=== PATIENT | male | born 1955 | race Caucasian/White ===

== ENCOUNTER 2017-09-04 06:05 | Outpatient (RCR) | payer MEDICAID, SELFPAY ==
[2017-09-04 08:55] LABS: International Normalized Ratio 2.2; Prothrombin Time (Protime)PT. 23.5 SECONDS (11.7-14.9)
== END 2017-09-04 15:00 | disposition home or self-care (01) ==
LOC: LAB 06:05
PROVIDERS: Family Provider Family Medicine; PCP Family Medicine; Visit Provider Internal Medicine Cardiovascular Disease
DX: I48.0 Paroxysmal atrial fibrillation (principal); D68.32 Hemorrhagic disorder due to extrinsic circulating anticoagulants
CPT/HCPCS: 36415; 85610

== ENCOUNTER → 2017-10-01 15:55 | Outpatient (CLI) | payer MEDICAID, SELFPAY ==
--- NOTE | 2017-10-01 16:01 | RAD_ITS ---
STUDY: X-RAY - LUMBAR SPINE REASON FOR EXAM: Male, 62 years old. Pain after lifting TECHNIQUE: 5 view(s) of the lumbar spine were obtained. COMPARISON: CT September 01, 2008 FINDINGS: Mild levoconvex scoliosis. Diffuse spondylosis. Age-indeterminate compression deformities of T9, T12, L2, and L4. L4 Schmorl's node. Diffuse facet disease. Vascular calcifications. Left hip arthroplasty. RAD/L/S Spine Min 4 Views IMPRESSION: Age-indeterminate compression deformities of T9, T12, L2, and L4. Consider MRI correlation to further determine acuity if possible. Electronically Signed: Haja Sandoval MD at 7:53 EST Tel , Service support ,
[2017-10-01 18:05] LABS: International Normalized Ratio 3.1; Prothrombin Time (Protime)PT. 32.5 SECONDS (11.7-14.9)
== END ==
PROVIDERS: Family Provider Family Medicine; PCP Family Medicine; Visit Provider Internal Medicine Cardiovascular Disease
DX: M54.5 Low back pain (principal)
CPT/HCPCS: 36415; 72110; 85610

== ENCOUNTER → 2017-10-11 08:57 | Outpatient (CLI) | payer MEDICAID, SELFPAY ==
--- NOTE | 2017-10-11 09:42 | MRI_ITS ---
STUDY: MRI LUMBAR SPINE WITH AND WITHOUT CONTRAST REASON FOR EXAM: Male, 62 years old. Low back pain with radicular symptoms to the right hip. TECHNIQUE: Standardized fat and water weighted pulse sequences were obtained in the sagittal and axial planes. 7.5 ml of Gadavist contrast material was administered for the contrast portion of the examination. COMPARISON: Radiographs of the lumbar spine dated October 01, 2017. FINDINGS: T12-L1: There is mild wedge-shaped deformity of the T12 vertebral body. There is a large Schmorl's node at the superior endplate of T12 which contributes to the compression. Maximum compression is probably 50% of expected this vertebral body. This appears to be old. There is a mild disc bulge. Neural foramina are patent. There is no significant central acquired canal stenosis. Normal lumbar lordosis. There is no substantial scoliosis. Normal conus medullaris that terminates at the L1-2 level. L1-2: There is moderate compression of L2 with abnormal signal at the superior endplate. There is associated abnormal signal at the superior endplates suggesting this is an acute fracture. There is increased height of the disc. Neural foramina are patent. There is a mild disc bulge. There is mild degenerative arthropathy of facet joints. L2-3: There is mild annular disk bulge and osteophyte complex. There is mild degenerative arthropathy of the facet joints. Bilateral neuroforamina are narrowed without MR evidence for nerve impingement. There is no significant central canal stenosis. L3-4: There is narrowing of the disc. There is a Schmorl's node of superior endplate of L4. There is abnormal signal the endplates suggesting acute Modic changes. Neural foramina are bilaterally narrowed with potential impingement of the right L3 nerve root at the neural foramen. L4-5: There is mild compression fracture of the superimposed vertebral body with a larger Schmorl's node of the central aspect of the superior endplate contributing to the compression. There is moderate annular disc bulge and osteophyte complex. There is mild degenerative arthropathy of facet joints. There is mild central acquired canal stenosis. Neural foramina are narrowed without definite evidence for nerve impingement. L5-S1: There is narrowing of the disc. There is narrowing of disc bulge with broad central disc protrusion. There is moderate degenerative arthropathy of facet joints. There is mild central acquired canal stenosis. Neural foramina are bilaterally narrowed with potential impingement of the bilateral nerve roots at the neural foramina. Normal visualized sacral ala. Normal visualized paraspinous soft tissue structures. There may be small renal cysts. There is abnormal enhancement of superior endplate of L2 as well as the endplates of L3 and L4, and the superior endplate of L4 and endplates at L5-S1. This could be the result of acute Modic changes. Sequela of osteomyelitis is thought less likely. MRI/Spine Lumbar W/WO Contrast IMPRESSION: 1. Multiple compression fractures of the lumbar vertebral bodies, apparently acute at L2 and L4. 2. Abnormal enhancement suggests possible sequela of acute Modic changes. Sequela of discitis is thought less likely. Electronically Signed: Angi Guan MD at 13:32 EDT , Service support ,
--- NOTE | 2017-10-11 09:43 | MRI_ITS ---
STUDY: MRI THORACIC SPINE WITH AND WITHOUT CONTRAST REASON FOR EXAM: Male, 62 years old. Low back pain. Patient has compression fractures. TECHNIQUE: 7.5 ml of Gadavist was administered intravenously for the contrast portion of the examination. Sagittal and axial T1 and T2 MR images of the thoracic spine are submitted for interpretation. COMPARISON: None. FINDINGS: There is an increased kyphosis of the thoracic spine. There is no substantial scoliosis. T1-2, T2-3, T3-4, T4-5, T5-6, T6-7, T7-8, T8-9, T9-10, T10-11, T11-12: There is moderate compression of the T9 vertebral body. Maximum compression is about 70% of expected height of this vertebral body. There is also central compression of the T10 vertebral body with large central Schmorl's nodes involving the superior and inferior endplates with maximum compression of this vertebral body about 80% with a H shaped appearance of the vertebral body. There is also mild compression of the T12 vertebral body with maximum compression of 70%. There is also mild compression fracture T5. There is some abnormal signal within the T9 and T10 vertebral body suggesting there may be some acuity to these compression fractures. The rest of the compression fractures appear old. Remaining thoracic vertebral bodies have normal height and alignment. Neural foramina appear to be patent. There is no significant central acquired canal stenosis. Normal visualized thoracic cord. The conus medullaris is not imaged in its entirety on this study. There appears to be a left-sided renal cyst. This is partially imaged on the current study. There is bilateral basilar dependent atelectasis. There is some enhancement of the T9 and T10 vertebral bodies. This could be result of acute Modic changes. Malignancy is not excluded. There is no evidence for meningeal enhancement. MRI/Spine Thoracic W/WO Contrast IMPRESSION: 1. Apparent acute compression of the T10 vertebral body that is centrally located and appears to be associated with Schmorl's nodes. The configuration of this vertebral body suggests the possibility of bone infarcts. 2. There may be some acuity to compression of T9 but there is only a small area of abnormal signal in this vertebral body to suggest an acute process. Electronically Signed: Angi Guan MD at 13:25 EDT , Service support ,
[2017-10-11 12:30] LABS: EGFR FINGERSTICK > 60.0000 mL/min (>60)
== END ==
PROVIDERS: Family Provider Family Medicine; PCP Family Medicine; Visit Provider Family Medicine
DX: S32.000A Wedge compression fracture of unspecified lumbar vertebra, initial encounter for closed fracture (principal); X58.XXXA Exposure to other specified factors, initial encounter; I48.91 Unspecified atrial fibrillation; Z79.01 Long term (current) use of anticoagulants
CPT/HCPCS: 36415; 72157; 72158; 85610; A9585

== ENCOUNTER 2017-10-18 06:12 | Outpatient (RCR) | payer MEDICAID, SELFPAY ==
[2017-10-11 11:20] LABS: International Normalized Ratio 3.4; Prothrombin Time (Protime)PT. 34.6 SECONDS (11.7-14.9)
[2017-10-18 07:25] LABS: International Normalized Ratio 3.4; Prothrombin Time (Protime)PT. 34.5 SECONDS (11.7-14.9)
== END 2017-10-18 07:00 | disposition home or self-care (01) ==
LOC: LAB 06:12
PROVIDERS: Physician Assistant Medical; Family Provider Family Medicine; PCP Family Medicine; Visit Provider Internal Medicine Cardiovascular Disease
DX: I48.91 Unspecified atrial fibrillation (principal); I48.92 Unspecified atrial flutter; Z79.01 Long term (current) use of anticoagulants
CPT/HCPCS: 36415; 85610

== ENCOUNTER 2017-11-14 06:05 | Outpatient (RCR) | payer MEDICAID, SELFPAY ==
[2017-11-01 08:41] LABS: Prothrombin Time (Protime)PT. 35.9 SECONDS (11.7-14.9)
[2017-11-01 08:45] LABS: International Normalized Ratio 3.6
[2017-11-14 08:51] LABS: International Normalized Ratio 3.5
== END 2017-11-14 07:00 | disposition home or self-care (01) ==
LOC: LAB 06:05
PROVIDERS: Physician Assistant Medical; Family Provider Family Medicine; PCP Family Medicine; Visit Provider Internal Medicine Cardiovascular Disease
DX: I48.91 Unspecified atrial fibrillation (principal); I48.92 Unspecified atrial flutter; Z79.01 Long term (current) use of anticoagulants
CPT/HCPCS: 36415; 85610

== ENCOUNTER 2017-11-29 06:18 | Outpatient (RCR) | payer MEDICAID, SELFPAY ==
[2017-11-29 07:09] LABS: International Normalized Ratio 1.8; Prothrombin Time (Protime)PT. 21.2 SECONDS (11.7-14.9)
== END 2017-11-29 07:00 | disposition home or self-care (01) ==
LOC: LAB 06:18
PROVIDERS: Family Provider Family Medicine; PCP Family Medicine; Visit Provider Internal Medicine Cardiovascular Disease
DX: I48.91 Unspecified atrial fibrillation (principal); I48.92 Unspecified atrial flutter; Z79.01 Long term (current) use of anticoagulants
CPT/HCPCS: 36415; 85610

== ENCOUNTER 2017-11-29 10:00 | Outpatient (RCR) | payer MEDICAID, SELFPAY ==
--- NOTE | 2017-10-29 09:58 | HP.PTEVAL_ITS ---
Patient's Visit Information ENRIQUE MCNALLY III is a 62 year old M referred to Physical Therapy by Eva SERRA with a diagnosis of Back pain/leg pain. Date of Evaluation: 10/29/17 Physical Therapist: Gagandeep Adams DPT, [place] - Visit Plan Frequency: 2-3x /Week Duration: 4-6 Weeks Plan: Patient to take pain meds as directed and instructed in postural awareness today. He wants to start therapy in two weeks for : teach quad, hip flexor, HS stretches...hip and core strength and postureal ex/bnody mechanics weekly via HEP or 3x/week in PT depending on condition. Recommended patient f/ u with family doctor regarding possible medical reasons for weakness in bones with multiple compression fractures as he is unaware of any. - Subjective Subjective: 4 weeks ago was lifting a TV from a chair to the floor and felt a pop in his back. Unbelievable pain for two weeks. Hard to move or breathe. Went to Dr. Daugherty 2 weeks later and had diagnostics. Sent to [facility] and he wanted spinal injections which patient does not want to have. Currently doing better. Stopped pain meds(has hydrocodone) for a day and it got worse then again. Has R LBP and R leg into hip, feels likes pins and needles most of time unless on the pain meds. Horton tart them again tonight. Sleep is 5 hours out of normal 8 b/c hard to get to sleep. Basic aDLs hurt initially but can do now. Is retired disability. L ZARINA. Avoids lifting and careful with bending at home. Has to be careful about every little thing. Can't carry more than 3-5 # right now. - Pain R LBP Pain Intensity (Out of 10): 8 Pain Intensity Range: 0, 9 Comment: good on pain meds. - Objective Walks hunched over and transitions cautiously. Extra time needed for table transfers as he is painful appearing to shear force. Walk is I. Straightens up with VC but it hurts. LB AROM: ext max limtied and barely to neutral, flexion mod limited, SB max limited B, all are mildly painful today and cautious. HS max tight at -50 90/90 test, ITB mod tight, hip flexors max tight to neutral baarely with hip ext and quads min tight. reflexes patella and achilles 2/3. sensation LE WNL to gross light touch. strength LE knees and ankles 4+/5. hips abd and ext 3, very atrophied in B glut tissue. BHip flexion 3+ due to pain. Patient is friendly and aware. Wishes to hold on therapyuntil he gets back on pain meds and can move easier/heals a little more. - Goals Goal 1:: Patient have full postural positioning without pain without VC. Goal Time Frame: 4-6 Weeks Goal 2:: patient able to trasnfer in bed and roll without discomfort. Goal Time Frame: 4-6 Weeks Goal 3:: pt I approp ex to minimize futre problems. Goal Time Frame: 4-6 Weeks Goal 4:: Pat report 90% improved and activity with pain no greater than transient 08/08 - Rehabilitation Potential Physical Therapy Diagnosis: Back pain, compression fractures. Rehabilitation Potential: Fair - Anticipated Interventions Patient/Client Instruction: Educate patient on: Condition, Plan of Care, Risk Factors For the Purpose of:: To decrease pain, To increase ROM, To reduce risk of recurrence Therapeutic Exercise to Include: Strength training, Postural training, Flexibilty training, Active ROM For the Purpose of:: To decrease pain, To increase ROM, To improve nutrient delivery to tissue, To improve ability of physical actions for home/community/ work/leisure, To improve gait and locomotor functions, To reduce risk of recurrence Thermo therapy (hot pack): Yes For the Purpose of:: To decrease pain Thank you for the opportunity to evaluate your patient. For Medicare and Medicare HMO plans, please review the plan of care and approve it. It will need to be FAXED BACK to us at [phone] for Medicare purposes. Please let me know if there are questions or concerns regarding this plan of care. Physician Signature: Date:
--- NOTE | 2017-11-29 10:30 | HP.PTDCSUM_ITS ---
HP - PT D/C Summary It has been my pleasure to treat ENRIQUE MCNALLY III under orders from Eva Storey , for the diagnosis of Back pain/leg pain for a total of 4 visit(s). Discharge Date: 11/29/17 Please see the following information for a summary of their discharge status. 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 A little stiff after two hours. Doing everything well. Gets sore in back if he overdoes it. Time is helping. Intemittent R hip tingly if he pushes it too hard but improving. Exercises are going OK with strength every other day, doing one time a day stretches. - Pain R LBP Pain Intensity (Out of 10): 0 - Overall Improvement % Improvement: 70 - Objective Objective/Function: Still hunches over when sitting. strength in LE improving and functional. ROM LB WNL and without pain today. strength 4+/5 in LE. Walk and steps normal. Remains slightly hunched but doing well otherwise. OVERALL EXCELLENT IMPROVEMENT AND LIFE ABOUT BACK TO NORMAL. 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 Goal Progress: Progressing Goal 2:: patient able to trasnfer in bed and roll without discomfort. Goal Progress: Goal Met Goal 3:: pt I approp ex to minimize futre problems. Goal Progress: Goal Met Goal 4:: Pat report 90% improved and activity with pain no greater than transient 1/10 Goal Progress: Progressing - Plan Plan: D/C - D/C Information Discharge Comments: Doing well and will continue HEP on his own. If there are questions or concerns regarding this patient's physical therapy, please feel free to call me at [phone]. Thank you for the referral of this patient. Sincerely, Gagandeep Adams, DPT, [place]
== END 2017-11-29 19:00 | disposition home or self-care (01) ==
LOC: PT 10:00
PROVIDERS: Family Provider Family Medicine; PCP Family Medicine; Visit Provider Anesthesiology Pain Medicine
DX: M54.9 Dorsalgia, unspecified (principal); M79.606 Pain in leg, unspecified; I48.91 Unspecified atrial fibrillation; I48.92 Unspecified atrial flutter; Z79.01 Long term (current) use of anticoagulants
CPT/HCPCS: 36415; 85610; 97110; 97162; 97530

== ENCOUNTER 2017-12-27 05:59 | Outpatient (RCR) | payer MEDICAID, SELFPAY ==
[2017-12-13 08:06] LABS: Prothrombin Time (Protime)PT. 22.9 SECONDS (11.7-14.9)
[2017-12-27 07:15] LABS: International Normalized Ratio 1.6; Prothrombin Time (Protime)PT. 19.2 SECONDS (11.7-14.9)
== END 2017-12-27 06:00 | disposition home or self-care (01) ==
LOC: LAB 05:59
PROVIDERS: Family Provider Family Medicine; PCP Family Medicine; Visit Provider Internal Medicine Cardiovascular Disease
DX: I48.91 Unspecified atrial fibrillation (principal); I48.92 Unspecified atrial flutter; Z79.01 Long term (current) use of anticoagulants
CPT/HCPCS: 36415; 85610

== ENCOUNTER → 2018-01-08 09:35 | Outpatient (CLI) | payer MEDICAID, SELFPAY ==
[2018-01-08 12:10] LABS: Absolute Lymphocyte Count 1.66 X10^3/ul (0.83-4.51); Basophil# 0.05 X10^3/uL; Basophil% 0.7 % (0-1); Eosinophil# 0.12 X10^3/uL; Eosinophils% 1.6 % (0-5); Hematocrit 42.9 % (40-54); Hemoglobin 14.9 g/dl (13.0-16.5); Lymphocyte # 1.66 X10^3/ul (4.0); Lymphocyte % 22.2 % (19-41); Mean Corp Hgb Conc 34.7 g/gl (32-36); Mean Corpuscular Hgb 31.1 pg (27.0-32.0); Mean Corpuscular Volume 89.6 fL (80-94); Mean Platelet Vol. 10.5 fl (6.2-12.0); Monocyte# 0.59 X10^3/uL; Monocyte% 7.9 % (0-10); Neutrophil # 5.04 X10^3/uL (2.7-7.7); Neutrophil % 67.5 % (47-70); Platelet Count 270 K/mm3 (150-450); RBC Distribution Width CV 15.2 % (11.6-14.6); RBC Distribution Width SD 49.9 fl (35.1-43.9); Red Blood Count 4.79 M/mm3 (4.6-6.2); White Blood Count 7.5 K/mm3 (4.4-11.0)
[2018-01-08 12:16] LABS: POSITIVE COUNT NO; POSITIVE DIFFERENTIAL NO; POSITIVE MORPHOLOGY NO
[2018-01-08 12:40] LABS: AST(SGOT) 19 U/L (15-37); Alanine Aminotransfer ALT/SGPT 25 U/L (16-61); Albumin, Serum 4.1 g/dL (3.2-5.0); Alkaline Phosphatase 75 U/L (45-117); Anion Gap 12 (5-15); BUN 8 mg/dL (7-18); BUN/Creat Ratio 7.9 RATIO (10-20); Calcium,Total 9.1 mg/dL (8.5-10.1); Chloride 88 mmol/L (98-107); Creatinine, Serum 1.01 mg/dL (0.70-1.30); EST Glomerular Filtration Rate 79 mL/min (>60); Est Glom Filt Rate - Afr Amer 96 mL/min (>60); Glucose 61 mg/dL (74-106); Magnesium 1.9 mg/dL (1.6-2.6); Potassium 4.4 mmol/L (3.5-5.1); Protein, Total 8.1 g/dL (6.4-8.2); Sodium Level 127 mmol/L (136-145); Thyroid Stim Hormone (TSH) 1.84 uIU/mL (0.358-3.74); Uric Acid 6.6 mg/dL (3.5-7.2)
== END ==
PROVIDERS: Family Provider Family Medicine; PCP Family Medicine; Visit Provider Family Medicine
DX: I48.91 Unspecified atrial fibrillation (principal); I10 Essential (primary) hypertension; M10.9 Gout, unspecified; E78.5 Hyperlipidemia, unspecified
CPT/HCPCS: 36415; 80053; 83735; 84443; 84550; 85025

== ENCOUNTER 2018-01-17 06:06 | Outpatient (RCR) | payer MEDICAID, SELFPAY ==
--- NOTE | 2018-01-03 06:03 | DT_ITS ---
This patient was seen during an EMR downtime December 31, 2017 - January 07, 2018. This patient may have a combination of paper and electronic documentation or all paper documentation. All documentation is viewable within the e-chart portion of [facility] for each patient visit.
[2018-01-08 04:16] LABS: International Normalized Ratio 1.9; Prothrombin Time (Protime)PT. 21.4 SECONDS (11.7-14.9)
[2018-01-17 07:47] LABS: International Normalized Ratio 1.8; Prothrombin Time (Protime)PT. 20.6 SECONDS (11.7-14.9)
== END 2018-01-17 07:00 | disposition home or self-care (01) ==
LOC: LAB 06:06
PROVIDERS: Family Provider Family Medicine; PCP Family Medicine; Visit Provider Internal Medicine Cardiovascular Disease
DX: I48.91 Unspecified atrial fibrillation (principal); I48.92 Unspecified atrial flutter; Z79.01 Long term (current) use of anticoagulants
CPT/HCPCS: 36415; 85610

== ENCOUNTER 2018-02-14 10:35 | Outpatient (RCR) | payer MEDICAID, SELFPAY ==
[2018-01-29 07:57] LABS: International Normalized Ratio 2.1; Prothrombin Time (Protime)PT. 23.5 SECONDS (11.7-14.9)
[2018-02-14 11:13] LABS: Prothrombin Time (Protime)PT. 22.4 SECONDS (11.7-14.9)
[2018-02-27 08:21] LABS: International Normalized Ratio 1.9; Prothrombin Time (Protime)PT. 22.2 SECONDS (11.7-14.9)
== END 2018-02-14 12:00 | disposition home or self-care (01) ==
LOC: LAB 10:35
PROVIDERS: Family Provider Family Medicine; PCP Family Medicine; Visit Provider Internal Medicine Cardiovascular Disease
DX: I48.91 Unspecified atrial fibrillation (principal); I48.92 Unspecified atrial flutter; Z79.01 Long term (current) use of anticoagulants
CPT/HCPCS: 36415; 85610

== ENCOUNTER 2018-03-12 14:03 | Outpatient (RCR) | payer MEDICAID, SELFPAY ==
[2018-03-12 15:10] LABS: International Normalized Ratio 2.1
== END 2018-03-12 15:00 | disposition home or self-care (01) ==
LOC: LAB 14:03
PROVIDERS: Family Provider Family Medicine; PCP Family Medicine; Visit Provider Internal Medicine Cardiovascular Disease
DX: I48.91 Unspecified atrial fibrillation (principal); I48.92 Unspecified atrial flutter; Z79.01 Long term (current) use of anticoagulants
CPT/HCPCS: 36415; 85610

== ENCOUNTER 2018-03-12 14:16 | Outpatient (RCR) | payer MEDICAID, SELFPAY | END 2018-03-29 23:59 | LOC: NS 14:16 | PROVIDERS: Family Provider Family Medicine; PCP Family Medicine; Visit Provider Internal Medicine Cardiovascular Disease | DX: E78.5 Hyperlipidemia, unspecified (principal); I48.92 Unspecified atrial flutter; Z79.01 Long term (current) use of anticoagulants; Z71.3 Dietary counseling and surveillance | CPT/HCPCS: 36415; 85610; 97802 ==

== ENCOUNTER 2018-03-28 11:48 | Outpatient (RCR) | payer MEDICAID, SELFPAY ==
[2018-03-28 12:24] LABS: International Normalized Ratio 1.9; Prothrombin Time (Protime)PT. 21.7 SECONDS (11.7-14.9)
== END 2018-03-28 13:00 | disposition home or self-care (01) ==
LOC: LAB 11:48
PROVIDERS: Family Provider Family Medicine; PCP Family Medicine; Visit Provider Internal Medicine Cardiovascular Disease
DX: I48.91 Unspecified atrial fibrillation (principal); I48.92 Unspecified atrial flutter; Z79.01 Long term (current) use of anticoagulants
CPT/HCPCS: 36415; 85610

== ENCOUNTER 2018-04-02 08:18 | Outpatient (RCR) | payer MEDICAID, SELFPAY | END 2018-04-28 23:59 | LOC: NS 08:18 | PROVIDERS: Family Provider Family Medicine; PCP Family Medicine; Visit Provider Internal Medicine Cardiovascular Disease | DX: E78.5 Hyperlipidemia, unspecified (principal); Z68.20 Body mass index [BMI] 20.0-20.9, adult; Z79.01 Long term (current) use of anticoagulants; Z71.3 Dietary counseling and surveillance | CPT/HCPCS: 97803 ==

== ENCOUNTER 2018-04-18 06:04 | Outpatient (RCR) | payer MEDICAID, SELFPAY ==
[2018-04-18 07:09] LABS: International Normalized Ratio 1.8
== END 2018-04-18 07:00 | disposition home or self-care (01) ==
LOC: LAB 06:04
PROVIDERS: Family Provider Family Medicine; PCP Family Medicine; Visit Provider Internal Medicine Cardiovascular Disease
DX: I48.91 Unspecified atrial fibrillation (principal); I48.92 Unspecified atrial flutter; Z79.01 Long term (current) use of anticoagulants
CPT/HCPCS: 36415; 85610

== ENCOUNTER → 2018-04-30 09:32 | Outpatient (CLI) | payer MEDICAID, SELFPAY ==
[2018-04-30 12:12] LABS: Prothrombin Time (Protime)PT. 22.6 SECONDS (11.7-14.9)
[2018-04-30 12:19] LABS: AST(SGOT) 14 U/L (15-37); Alanine Aminotransfer ALT/SGPT 22 U/L (16-61); Albumin, Serum 3.7 g/dL (3.2-5.0); Alkaline Phosphatase 77 U/L (45-117); Bilirubin, Direct 0.18 mg/dL (0.00-0.30); Globulin 3.8 g/dL (2.2-4.2); Protein, Total 7.5 g/dL (6.4-8.2)
== END ==
PROVIDERS: Family Provider Family Medicine; PCP Family Medicine; Visit Provider Internal Medicine Cardiovascular Disease
DX: E78.5 Hyperlipidemia, unspecified (principal); I48.91 Unspecified atrial fibrillation; I48.92 Unspecified atrial flutter; Z79.01 Long term (current) use of anticoagulants
CPT/HCPCS: 80076; 85610

== ENCOUNTER 2018-05-14 12:58 | Outpatient (RCR) | payer MEDICAID, SELFPAY | END 2018-05-29 23:59 | LOC: NS 12:58 | PROVIDERS: Family Provider Family Medicine; PCP Family Medicine; Visit Provider Internal Medicine Cardiovascular Disease | DX: E78.5 Hyperlipidemia, unspecified (principal); I48.92 Unspecified atrial flutter; Z79.01 Long term (current) use of anticoagulants; R63.4 Abnormal weight loss; Z68.20 Body mass index [BMI] 20.0-20.9, adult; Z71.3 Dietary counseling and surveillance | CPT/HCPCS: 97803 ==

== ENCOUNTER 2018-05-21 15:42 | Outpatient (RCR) | payer MEDICAID, SELFPAY ==
[2018-05-21 16:48] LABS: International Normalized Ratio 2.2; Prothrombin Time (Protime)PT. 24.5 SECONDS (11.7-14.9)
== END 2018-05-21 17:00 | disposition home or self-care (01) ==
LOC: LAB 15:42
PROVIDERS: Family Provider Family Medicine; PCP Family Medicine; Referring Provider Internal Medicine Cardiovascular Disease; Visit Provider Internal Medicine Cardiovascular Disease
DX: I48.91 Unspecified atrial fibrillation (principal); I48.92 Unspecified atrial flutter; Z79.01 Long term (current) use of anticoagulants
CPT/HCPCS: 36415; 85610

== ENCOUNTER 2018-06-25 05:58 | Outpatient (RCR) | payer MEDICAID, SELFPAY ==
[2018-06-25 07:15] LABS: International Normalized Ratio 2.8; Prothrombin Time (Protime)PT. 29.7 SECONDS (11.7-14.9)
--- OUTSIDE RECORDS SUMMARY | 2018-08-06 19:23 | XMS RPT_ITS ---
:1955 Author Organization OHIP Support Name Relationship Address Phone D Unavailable Unavailable Unavailable D Unavailable Unavailable Unavailable D Unavailable Unavailable Unavailable D Unavailable Unavailable Unavailable D Unavailable Unavailable Unavailable D Unavailable Unavailable Unavailable D Unavailable Unavailable Unavailable D Unavailable Unavailable Unavailable D Unavailable Unavailable Unavailable D Unavailable Unavailable Unavailable D Unavailable Unavailable Unavailable D Unavailable Unavailable Unavailable D Unavailable Unavailable Unavailable D Unavailable Unavailable Unavailable D Unavailable Unavailable Unavailable D Unavailable Unavailable Unavailable D Unavailable Unavailable Unavailable DALI, STEVE Unavailable [address] + [place] [address] D Unavailable Unavailable Unavailable DALI, STEVE Unavailable [address] + [place] [address] D Unavailable Unavailable Unavailable DALI, STEVE Unavailable [address] + [place] [address] D Unavailable Unavailable Unavailable DALI, STEVE Unavailable [address] + [place] [address] D Unavailable Unavailable Unavailable DALI, STEVE Unavailable [address] + [place] [address] D Unavailable Unavailable Unavailable DALI, STEVE Unavailable [address] + [place] [address] D Unavailable Unavailable Unavailable DALI, STEVE Unavailable [address] + [place] [address] D Unavailable Unavailable Unavailable DALI, STEVE Unavailable [address] + [place] [address] D Unavailable Unavailable Unavailable DALI, STEVE Unavailable [address] + [place] [address] D Unavailable Unavailable Unavailable DALI, STEVE Unavailable [address] + [place] [address] D Unavailable Unavailable Unavailable DALI, STEVE Unavailable [address] + [place] [address] D Unavailable Unavailable Unavailable STEVE MCNALLY Unavailable [address] + [place] [address] D Unavailable Unavailable Unavailable ADOLPH MCNALLYA Unavailable [address] + [place] [address] Care Team Providers Name Role Phone Parveen Medina Attending Unavailable KIMBERLY ASENCIO Referring Unavailable Willow, Sarah Primary Care Unavailable KIMBERLY ASENCIO Consulting Unavailable Moodispaw, Parveen Attending Unavailable Willow, Sarah Primary Care Unavailable Moodisgracy, Parveen Referring Unavailable KIMBERLY ASENCIO Consulting Unavailable JonoisParveen dubose Attending Unavailable Moodispaleonidas, Parveen Referring Unavailable Willow, Sarah Primary Care Unavailable KIMBERLY ASENCIO Consulting Unavailable JonoisParveen dubose Attending Unavailable Moodispaleonidas, Parveen Referring Unavailable [facility], Sarah Primary Care Unavailable Willow, Sarah Attending Unavailable Willow, Sarah Referring Unavailable Willow, Sarah Primary Care Unavailable Willow, Sarah Attending Unavailable Willow, Sarah Primary Care Unavailable Basali Ayman Attending Unavailable Willow, Sarah Primary Care Unavailable Basali Ayman Referring Unavailable [place], Parveen Attending Unavailable Moodispaleonidas, Parveen Referring Unavailable Willow, Sarah Primary Care Unavailable KIMBERLY ASENCIO Consulting Unavailable JonoisParveen dubose Attending Unavailable [place], Parveen Referring Unavailable Willow, Sarah Primary Care Unavailable KIMBERLY ASENCIO Consulting Unavailable JonoisParveen dubose Attending Unavailable Moodispaleonidas Parveen Referring Unavailable [facility], Sarah Primary Care Unavailable JonoisParveen dubose Attending Unavailable Moodispaleonidas, Parveen Referring Unavailable Willow, Sarah Primary Care Unavailable KIMBERLY ASENCIO Consulting Unavailable Willow, Sarah Attending Unavailable Willow, Sarah Primary Care Unavailable MoodisParveen dubose Attending Unavailable Moodispaleonidas, Parveen Referring Unavailable [facility], Sarah Primary Care Unavailable KIMBERLY ASENCIO Consulting Unavailable Dionna Shankar Attending Unavailable Moodispaleonidas, Parveen Attending Unavailable Willow, Sarah Referring Unavailable Willow, Sarah Primary Care Unavailable JonoisParveen dubose Attending Unavailable Moodispaleonidas, Parveen Referring Unavailable Willow, Sarah Primary Care Unavailable KIMBERLY ASENCIO Consulting Unavailable Parveen Medina Attending Unavailable Willow, Sarah Primary Care Unavailable Willow, Sarah Consulting Unavailable [place], Parveen Attending Unavailable [place], Parveen Referring Unavailable Willow, Sarah Primary Care Unavailable [place], Parveen Attending Unavailable Willow, Sarah Primary Care Unavailable Willow, Sarah Consulting Unavailable [place], Parveen Attending Unavailable [place], Parveen Referring Unavailable Willow, Sarah Primary Care Unavailable KIMBERLY ASENCIO Consulting Unavailable [place], Parveen Attending Unavailable [place], Parveen Referring Unavailable Willow, Sarah Primary Care Unavailable [place], Parveen Attending Unavailable Willow, Sarah Primary Care Unavailable Willow, Sarah Consulting Unavailable [place], Parveen Attending Unavailable Willow, Sarah Primary Care Unavailable [place], Parveen Attending Unavailable [place], Parveen Referring Unavailable Willow, Sarah Primary Care Unavailable KIMBERLY ASENCIO Consulting Unavailable [place], Parveen Attending Unavailable Willow, Sarah Primary Care Unavailable Willow, Sarah Consulting Unavailable Moodisp[place], Parveen Attending Unavailable [place], Parveen Referring Unavailable Willow, Sarah Primary Care Unavailable KIMBERLY ASENCIO Consulting Unavailable Moodispaleonidas, Parveen Attending Unavailable [place], Parveen Referring Unavailable Willow, Sarah Primary Care Unavailable KIMBERLY ASENCIO Consulting Unavailable NEVIN RUSSO ([facility]) Attending Unavailable SCHWEIKERT, DWAYNE A Referring Unavailable WILLOW, SARAH ZAK Referring Unavailable SCHWEIKERT, DWAYNE Leung Attending Unavailable MOODISPAW, PARVEEN F Referring Unavailable VLAD SMITH Attending Unavailable SCHWEIKERT, DWAYNE A Referring Unavailable WILLOW, SARAH Primary Care Unavailable SCHWEIKERT, DWAYNE A Attending Unavailable WILLOW, SARAH Primary Care Unavailable MOODISPAW, PARVEEN Referring Unavailable WILLOW, SARAH Referring Unavailable WILLOW, SARAH Primary Care Unavailable PROBLEMS PROBLEMS DATE TYPE CONDITION / CODE ATTENDING STATUS SOURCE 07/15/2018 Unknown E78.5 - Moodispaw, Active [place] Hyperlipidemia, [facility] unspecified / Hospital E78.5(ICD-10) Repository 05/30/2018 Unknown I48.91 - Unspecified [place], Active [place] atrial fibrillation / [facility] I48.91(ICD-10) Hospital Repository 05/08/2018 Active Other specified SCHWEIKERT, Active [place] personal risk [facility] Other factors, not [place] elsewhere classified Repository / Z91.89(ICD-10) 05/03/2016 Active 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, 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 [facility] Other therapy / [place] Z79.899(ICD-10) Repository 05/03/2016 Active 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) 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, Active [place] use of anticoagulants [facility] Clinic Other / Z79.01(ICD-10) [place] Repository 05/03/2016 Active Palpitations / SCHWEIKERT, Active [place] R00.2(ICD-10) [facility] Other [place] Repository 05/08/2018 Admitting Unknown / SCHWEIKERT, Active [place] [facility] diagnosis UNK(Unknown) [facility] Repository 02/18/2018 Unknown Z79.01 - [facility] [place], Active [place] (current) use of [facility] anticoagulants / Hospital Z79.01(ICD-10) Repository 11/30/2017 Unknown M54.9 - Dors[place], Basali, Ayman Active [place] unspecified / [facility] M54.9(ICD-10) Hospital Repository 05/16/2017 Active Persistent atrial KARAN, NEVIN Active [place] fibrillation / (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) Clinic Other I48.1(ICD-10) [place] Repository 05/03/2016 Active Supraventricular KARAN, NEVIN Active [place] tachycardia / (CASE WORKER) Clinic Other I47.1(ICD-10) [place] Repository 05/03/2016 Active Unspecified atrial KARAN, NEVIN Active [place] flutter / (CASE WORKER) Clinic Other I48.92(ICD-10) [place] Repository 10/18/2017 Unknown S22.000A - Sarah Ramirez Active [place] compression fracture [facility] thoracic vertebra, Repository initial encounter for closed fracture / S22.000A(ICD-10) 10/11/2017 Unknown [place]2.000A - Sarah Ramirez Active [place] compression fracture [facility] lumbar Hospital vertebra, initial Repository encounter for closed fracture / S32.000A(ICD-10) 09/28/2017 Unknown I48.0 - Paroxysmal [place], Active [place] atrial fibrillation / [facility] I48.0(ICD-10) Hospital Repository PROCEDURES PROCEDURES No Procedure Records FoundRESULTS RESULTS PROTHROMBIN TIME W/INR Collected: 07/15/2018 Status: F Source: [place] 6:12 AM [facility] HOSPITAL REPOSITORY TYPE CODE TESTS RESULT OUT OF RANGE REFERENCE UNITS LAB L300.4150 11.7-14.9 SECONDS High PROTIME 23.6 LAB L300.4200 Normal INR 2.1 Performed By: #### [id number] #### [facility] [address] [place], [address] PROTHROMBIN TIME W/INR Collected: 06/25/2018 Status: F Source: [place] 6:01 AM [facility] REPOSITORY TYPE CODE TESTS RESULT OUT OF RANGE REFERENCE UNITS LAB L300.4150 11.7-14.9 SECONDS High PROTIME 29.7 LAB L300.4200 Normal INR 2.8 Performed By: #### [id number] #### [facility] [address] [place], [address] PROTHROMBIN TIME W/INR Collected: 05/21/2018 Status: F Source: [place] 3:48 PM [facility] REPOSITORY TYPE CODE TESTS RESULT OUT OF RANGE REFERENCE UNITS LAB L300.4150 11.7-14.9 SECONDS High PROTIME 24.5 LAB L300.4200 Normal INR 2.2 Performed By: #### [id number] #### [facility] [address] [place], [address] PROGRESS Observed: 05/08/2018 Status: COMPLETED Source: [place] 11:59 AM [facility] OTHER CAMPUS REPOSITORY O ID: [id number] Author: Dwayne Cavanaugh Service: (none) Author Type: Physician Type: Progress Notes Filed: 05/08/2018 1:09 PM Note Text: PRIMARY CARE PHYSICIAN: Sarah Daugherty MD [address] [place] [address] Patient Care Team: Sarah Daugherty as PCP - General (Family Practice) Parveen Medina as Specialty Double Back Operator (Cardiology) Dwayne Cavanaugh as Specialty Double Back Operator (Cardiology) CHIEF COMPLAINT: Follow up for arrhythmia HISTORY OF PRESENT ILLNESS: Mr. Mcnally is a 62 year old male who presents today for a cardiovascular medicine follow-up visit. History copied from previous notes, edited as needed: Mr. Mcnally has a long history of AF, possibly since the . The AF was previously very symptomatic, and was refractory to medical therapy. He underwent AF catheter ablation at [facility] in 2007. The procedure was complicated by an acute deep venous thrombosis (DVT) of the right iliac vein. According to the medical records, there had been difficulty during the ablation procedure to access the right femoral vein. Thrombolysis was not effective to restore patency, although at least one collateral channel developed that relieved the lower extremity swelling. 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 Mr. Mcnally developed recurrent AF and for several years was minimally symptomatic with appropriate ventricular rate control. Treatment with antiarrhythmic drugs, including flecainide, was ineffective. Due to his relatively young age, a more aggressive approach to maintaining sinus rhythm had been considered. However, the patient had steadfastly maintained he did not want to take other drugs or in particular undergo another catheter ablation procedure. So for several years he has been managed with a ventricular rate control treatment approach. More recently (2014), the AF had become more bothersome. He states he clearly felt better in sinus rhythm than in the AF. He described symptomatic episodes, particularly since the 2nd week of June 2014, during which he felt palpitation associated with feeling shaky and dizzy. Episodes were occurring occasionally, and lasted up to a few hours. A beta-john medication was added to his regimen. An ambulatory Holter revealed symptomatic atrial fibrillation with rapid ventricular rates. He was admitted to [facility] in 08/2014 for loading of the antiarrhythmic drug, dofetilide. He then underwent electrical DC cardioversion 09/10/2014. He was then discharged home on the dofetilide 500 mcg twice daily. He was then evaluated by Dr. Medina in late September 2014 and was found to be having recurrent episodes of symptomatic arrhythmia. He underwent additional electrical DC cardioversions, but the atrial arrhythmias recurred. Additional history provided 05/03/2016: Mr. Mcnally underwent redo catheter ablation procedure in September 2015 here at [facility]. The procedure involved redo catheter ablation for the atrial fibrillation, and also targeted and ablated multiple atypical left atrial arrhythmias including atrial tachycardias and/or atrial flutters. Mr. Mcnally states that since the ablation procedure he has had improvement in his symptoms. He did have some recurrence of his symptoms early after the procedure and was treated with the dofetilide (Tikosyn). With these measures, he only occasionally feels mild palpitations that do not last for very long period of time. He has not experienced what he describes as the hard palpitations since the ablation procedure. He has been very busy recently and under some stress due to his mother having open heart surgery here at [facility] recently. He denies chest pain, shortness of breath, orthopnea, cough, edema, PND, lightheadedness or syncope. Additional history 05/16/2017: Mr. Mcnally has been feeling well. Better than I have in 20 years. He is tolerating his medications well. He denies chest pain, shortness of breath, orthopnea, edema, palpitations, PND, lightheadedness or syncope. Additional history this visit 05/08/2018: Mr. Mcnally states he has been doing well from the heart rhythm standpoint. He has not been aware of any arrhythmia. He denies chest pain, shortness of breath, orthopnea, palpitations, PND, lightheadedness or syncope. He had some trouble earlier this year in about September when he broke his back. He underwent some rehabilitation for this issue. PAST MEDICAL HISTORY Diagnosis Date - At risk for stroke [id number] = 2 (HTN, DM); on oral anticoagulation therapy - Atrial flutter (HCC) - Degenerative joint disease involving multiple joints - Essential hypertension - Fracture of neck of femur (HCC) - Gastroesophageal reflux disease - Gout diagnosed 2001 - Hypogonadism in male - [facility] current use of antiarrhythmic drug dofetilide (Tikosyn); indication: symptomatic AF or atrial flutter - On anticoagulant therapy warfarin; indication: stroke prevention AF; [id number] = 2 - On [facility] drug therapy high risk medication: antiarrhythmic drug dofetilide (Tikosyn); indication: symptomatic AF/flutter - Palpitations - Paroxysmal supraventricular tachycardia (HCC) - Persistent atrial fibrillation (HCC) recurrent; symptomatic; s/p AF ablation 04/2008 [facility]; s/p redo AF ablation 09/2015 - Tachycardia - Tobacco dependence syndrome encouraged to quit - Type 2 diabetes mellitus (HCC) diagnosed 2009; diet-controlled PAST SURGICAL HISTORY Procedure Laterality Date - AFIB ABLATION/PULM VEIN ISOLATION 10/12/2015 redo AF catheter ablation/PVAI; also ablation of two macroreentrant atypical left atrial flutters; [facility] Dr. Cavanaugh - CARDIAC CATH 09/2006 - CATHETER, ABLATION 05/25/2008 [facility], Dr. Carlos Huggins - ECHOCARDIOGRAM 04/06/2016 normal LV size and systolic fxn; LVEF 55-60%; no significant valvular abnormalities - IR VENOUS SENIOR QA TESTER 05/28/2008 unsuccessful angioplasty attempts at right common femoral vein and external iliac vein occlusions; [facility] - REPAIR OF FEMUR Left 1980 ORIF left femur SOCIAL HISTORY Social History Substance Use Topics - Smoking status: Current Every Day Smoker Packs/day: 1.00 Types: Cigarettes Start date: 07/30/1974 - Smokeless tobacco: Never Used - Alcohol use Yes Comment: occasionally FAMILY HISTORY Problem Relation Age of Onset - Diabetes Father - Coronary Artery Disease Mother - Diabetes Mother - Heart Mother [place] AND stents - Asthma Sister - Prostate Cancer Paternal Uncle ALLERGIES: ALLERGIES Allergen Reactions - Insect Extracts Swelling - Med-Hist Swelling [place] - Succinylcholine Swelling MEDICATIONS: diltiazem CD (CARDIZEM CD, CARTIA XT) 120 mg 24 hr capsule Take 1 capsule by mouth twice daily. dofetilide (TIKOSYN) 500 mcg capsule Take 1 capsule by mouth twice daily. KLOR-CON M10 10 mEq tablet Take 10 mEq by mouth once daily. EPIPEN 2-HYACINTH 0.3 mg/0.3 mL auto-injector Inject 0.3 mg subcutaneously as needed (allergic reactions). warfarin (COUMADIN) 4 mg tablet As directed allopurinol (ZYLOPRIM) 100 mg tablet Take 100 mg by mouth twice daily. furosemide (LASIX) 40 mg tablet Take 40 mg by mouth once daily. potassium chloride (K-TAB) 10 mEq tablet Take 10 mEq by mouth once daily. warfarin (COUMADIN) 5 mg tablet As directed Fish Oil-Bon Wier-3 Fatty Acids 300-1,000 mg cap Take 1 tablet by mouth once daily. lansoprazole (PREVACID) 30 mg capsule Take 30 mg by mouth once daily. PHYSICAL EXAMINATION: BP 108/70 Pulse 67 Resp 18 Ht 6' 1 (1.85m) Wt 154 lb 12.8 oz (70.2kg) SpO2 97% BMI 20.43 kg/(m2). General: Very thin body habitus; no acute distress, speaking in complete sentences. Skin: No clubbing, no cyanosis. Eyes: Extra ocular movements intact, Non-icteric sclerae Neck: no jugular venous distention, Lungs: Clear to auscultation bilaterally, no wheezing or rhonchi. Heart: Regular rhythm, S1, S2 normal, no murmur Abdomen: Soft, nontender, bowel sounds normal Extremities: No peripheral edema . Grade 2/4 distal pulses bilaterally. Neuro: Oriented to person, place and time, alert, cooperative, gait coordinated. CARDIOVASCULAR MEDICINE TESTING: Electrocardiogram: Sinus rhythm 64 bpm; first-degree AV block (PA 234 ms); QRS 92 ms; corrected QT interval 468 ms, appropriate on dofetilide (Tikosyn); poor R wave progression precordial leads similar to previous EKG 04/2017 I have personally reviewed the Electrocardiogram. I spent 30 minutes in the visit, with more than 50% of the total [id number] time of the visit in counseling / coordination of care. ASSESSMENT/PLAN: 1. Persistent atrial fibrillation (HCC) - ICD9: 427.31, ICD10: I48.1 (primary diagnosis) recurrent; symptomatic; s/p AF ablation 04/2008 [facility]; s/p redo AF ablation 09/2015; well controlled on dofetilide 2. Atrial flutter, unspecified type (HCC) - ICD9: 427.32, ICD10: I48.92 3. Paroxysmal supraventricular tachycardia (HCC) - ICD9: 427.0, ICD10: I47.1 4. 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 At risk for stroke - ICD9: V15.89, ICD10: Z91.89 [id number] = 2 (HTN, DM); on oral anticoagulation therapy 7. On anticoagulant therapy - ICD9: V58.61, ICD10: Z79.01 warfarin; indication: stroke prevention AF; [id number] = 2 ; risk:benefit of oral anticoagulation therapy seems favorable IMPRESSION: Mr. Mcnally seems to be doing very well from a heart rhythm standpoint. He has not been aware of having much recurrence of symptomatic arrhythmias. He is doing well with the antiarrhythmic drug dofetilide and EKG today shows appropriate corrected QT intervals. He has been treated with oral anti-coagulation for stroke prevention, and the risk to benefit of this treatment still seems to be favorable. The warfarin dosing is being managed by his other physicians. PLAN AND RECOMMENDATIONS: Continue with current plan of care from EP standpoint. Return in about 6 months (around 11/06/2018) for appt with Nevin Russo APN with EKG. Dwayne Cavanaugh MD 05/08/2018 CNOV Observed: 05/08/2018 Status: COMPLETED Source: [place] 11:30 AM CLINIC OTHER CAMPUS REPOSITORY Office Visit (AGCARDPHRA) ENRIQUE MCNALLY ([id number]) 1955 M Date Time Provider Department 05/08/18 11:30 AM DWAYNE CAVANAUGH During your visit today, we recorded the following information about you: Pulse Respiration Blood pressure Weight 67/minute 18/minute 108/70 70.2 kg Height 1.854 m Gilma Mcneil 05/08/2018 11:35 AM Signed NO CARDIAC COMPLAINTS TODAY GILMA MCNEIL [facility] Dwayne Cavanaugh MD 05/08/2018 1:09 PM Signed PRIMARY CARE PHYSICIAN: Sarah Daugherty MD [address] [place] [address] Patient Care Team: Sarah Daugherty as PCP - General (Family Practice) Parveen Medina as Specialty Double Back Operator (Cardiology) Dwayne Cavanaugh as Specialty Double Back Operator (Cardiology) CHIEF COMPLAINT: Follow up for arrhythmia HISTORY OF PRESENT ILLNESS: Mr. Mcnally is a 62 year old male who presents today for a cardiovascular medicine follow-up visit. History copied from previous notes, edited as needed: Mr. Mcnally has a long history of AF, possibly since the 1980s. The AF was previously very symptomatic, and was refractory to medical therapy. He underwent AF catheter ablation at [facility] in 2007. The procedure was complicated by an acute deep venous thrombosis (DVT) of the right iliac vein. According to the medical records, there had been difficulty during the ablation procedure to access the right femoral vein. Thrombolysis was not effective to restore patency, although at least one collateral channel developed that relieved the lower extremity swelling. 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 Mr. Mcnally developed recurrent AF and for several years was minimally symptomatic with appropriate ventricular rate control. Treatment with antiarrhythmic drugs, including flecainide, was ineffective. Due to his relatively young age, a more aggressive approach to maintaining sinus rhythm had been considered. However, the patient had steadfastly maintained he did not want to take other drugs or in particular undergo another catheter ablation procedure. So for several years he has been managed with a ventricular rate control treatment approach. More recently (2014), the AF had become more bothersome. He states he clearly felt better in sinus rhythm than in the AF. He described symptomatic episodes, particularly since the 2nd week of June 2014, during which he felt palpitation associated with feeling shaky and dizzy. Episodes were occurring occasionally, and lasted up to a few hours. A beta-john medication was added to his regimen. An ambulatory Holter revealed symptomatic atrial fibrillation with rapid ventricular rates. He was admitted to [facility] in 08/2014 for loading of the antiarrhythmic drug, dofetilide. He then underwent electrical DC cardioversion 09/10/2014. He was then discharged home on the dofetilide 500 mcg twice daily. He was then evaluated by Dr. Medina in late September 2014 and was found to be having recurrent episodes of symptomatic arrhythmia. He underwent additional electrical DC cardioversions, but the atrial arrhythmias recurred. Additional history provided 05/03/2016: Mr. Mcnally underwent redo catheter ablation procedure in September 2015 here at [facility]. The procedure involved redo catheter ablation for the atrial fibrillation, and also targeted and ablated multiple atypical left atrial arrhythmias including atrial tachycardias and/or atrial flutters. Mr. Mcnally states that since the ablation procedure he has had improvement in his symptoms. He did have some recurrence of his symptoms early after the procedure and was treated with the dofetilide (Tikosyn). With these measures, he only occasionally feels mild palpitations that do not last for very long period of time. He has not experienced what he describes as the hard palpitations since the ablation procedure. He has been very busy recently and under some stress due to his mother having open heart surgery here at [facility] recently. He denies chest pain, shortness of breath, orthopnea, cough, edema, PND, lightheadedness or syncope. Additional history 05/16/2017: Mr. Mcnally has been feeling well. Better than I have in 20 years. He is tolerating his medications well. He denies chest pain, shortness of breath, orthopnea, edema, palpitations, PND, lightheadedness or syncope. Additional history this visit 05/08/2018: Mr. Mcnally states he has been doing well from the heart rhythm standpoint. He has not been aware of any arrhythmia. He denies chest pain, shortness of breath, orthopnea, palpitations, PND, lightheadedness or syncope. He had some trouble earlier this year in about September when he broke his back. He underwent some rehabilitation for this issue. 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 drug therapy high risk medication: antiarrhythmic drug dofetilide (Tikosyn); indication: symptomatic AF/flutter - Palpitations - Paroxysmal supraventricular tachycardia (HCC) - Persistent atrial fibrillation (HCC) recurrent; symptomatic; s/p AF ablation 04/2008 [facility]; s/p redo AF ablation 09/2015 - Tachycardia - Tobacco dependence syndrome encouraged to quit - Type 2 diabetes mellitus (HCC) diagnosed 2009; diet-controlled PAST SURGICAL HISTORY Procedure Laterality Date - AFIB ABLATION/PULM VEIN ISOLATION 10/12/2015 redo AF catheter ablation/PVAI; also ablation of two macroreentrant atypical left atrial flutters; [facility] Dr. Cavanaugh - CARDIAC CATH 09/2006 - CATHETER, ABLATION 05/25/2008 [facility], Dr. Carlos Huggins - ECHOCARDIOGRAM 04/06/2016 normal LV size and systolic fxn; LVEF 55-60%; no significant valvular abnormalities - IR VENOUS SENIOR QA TESTER 05/28/2008 unsuccessful angioplasty attempts at right common femoral vein and external iliac vein occlusions; [facility] - REPAIR OF FEMUR Left 1980 ORIF left femur SOCIAL HISTORY Social History Substance Use Topics - Smoking status: Current Every Day Smoker Packs/day: 1.00 Types: Cigarettes Start date: 07/30/1974 - Smokeless tobacco: Never Used - Alcohol use Yes Comment: occasionally FAMILY HISTORY Problem Relation Age of Onset - Diabetes Father - Coronary Artery Disease Mother - Diabetes Mother - Heart Mother UT AND stents - Asthma Sister - Prostate Cancer Paternal Uncle ALLERGIES: ALLERGIES Allergen Reactions - Insect Extracts Swelling - Med-Hist Swelling SECONOL - Succinylcholine Swelling MEDICATIONS: diltiazem CD (CARDIZEM CD, CARTIA XT) 120 mg 24 hr capsule Take 1 capsule by mouth twice daily. dofetilide (TIKOSYN) 500 mcg capsule Take 1 capsule by mouth twice daily. KLOR-CON M10 10 mEq tablet Take 10 mEq by mouth once daily. EPIPEN 2-HYACINTH 0.3 mg/0.3 mL auto-injector Inject 0.3 mg subcutaneously as needed (allergic reactions). warfarin (COUMADIN) 4 mg tablet As directed allopurinol (ZYLOPRIM) 100 mg tablet Take 100 mg by mouth twice daily. furosemide (LASIX) 40 mg tablet Take 40 mg by mouth once daily. potassium chloride (K-TAB) 10 mEq tablet Take 10 mEq by mouth once daily. warfarin (COUMADIN) 5 mg tablet As directed Fish Oil-Bon [place]ier-3 Fatty Acids 300-1,000 mg cap Take 1 tablet by mouth once daily. lansoprazole (PREVACID) 30 mg capsule Take 30 mg by mouth once daily. PHYSICAL EXAMINATION: BP 108/70 Pulse 67 Resp 18 Ht 6' 1 (1.85m) Wt 154 lb 12.8 oz (70.2kg) SpO2 97% BMI 20.43 kg/(m2). General: Very thin body habitus; no acute distress, speaking in complete sentences. Skin: No clubbing, no cyanosis. Eyes: Extra ocular movements intact, Non-icteric sclerae Neck: no jugular venous distention, Lungs: Clear to auscultation bilaterally, no wheezing or rhonchi. Heart: Regular rhythm, S1, S2 normal, no murmur Abdomen: Soft, nontender, bowel sounds normal Extremities: No peripheral edema . Grade 2/4 distal pulses bilaterally. Neuro: Oriented to person, place and time, alert, cooperative, gait coordinated. CARDIOVASCULAR MEDICINE TESTING: Electrocardiogram: Sinus rhythm 64 bpm; first-degree AV block (PA 234 ms); QRS 92 ms; corrected QT interval 468 ms, appropriate on dofetilide (Tikosyn); poor R wave progression precordial leads similar to previous EKG 04/2017 I have personally reviewed the Electrocardiogram. I spent 30 minutes in the visit, with more than 50% of the total [id number] time of the visit in counseling / coordination of care. ASSESSMENT/PLAN: 1. Persistent atrial fibrillation (HCC) - ICD9: 427.31, ICD10: I48.1 (primary diagnosis) recurrent; symptomatic; s/p AF ablation 04/2008 [facility]; s/p redo AF ablation 09/2015; well controlled on dofetilide 2. Atrial flutter, unspecified type (HCC) - ICD9: 427.32, ICD10: I48.92 3. Paroxysmal supraventricular tachycardia (HCC) - ICD9: 427.0, ICD10: I47.1 4. Palpitations - ICD9: 785.1, ICD10: R00.2 5. MCC current use of antiarrhythmic drug - ICD9: V58.69, ICD10: Z79.899 dofetilide (Tikosyn); indication: symptomatic AF or atrial flutter; QTc appropriate by today's EKG 6. At risk for stroke - ICD9: V15.89, ICD10: Z91.89 [id number] = 2 (HTN, DM); on oral anticoagulation therapy 7. On anticoagulant therapy - ICD9: V58.61, ICD10: Z79.01 warfarin; indication: stroke prevention AF; [id number] = 2 ; risk:benefit of oral anticoagulation therapy seems favorable IMPRESSION: Mr. Mcnally seems to be doing very well from a heart rhythm standpoint. He has not been aware of having much recurrence of symptomatic arrhythmias. He is doing well with the antiarrhythmic drug dofetilide and EKG today shows appropriate corrected QT intervals. He has been treated with oral anti-coagulation for stroke prevention, and the risk to benefit of this treatment still seems to be favorable. The warfarin dosing is being managed by his other physicians. PLAN AND RECOMMENDATIONS: Continue with current plan of care from EP standpoint. Return in about 6 months (around 11/06/2018) for appt with Nevin Russo APN with EKG. Dwayne Cavanaugh MD 05/08/2018 Dwayne Cavanaugh MD 05/08/2018 12:04 PM Signed Atrial Fibrillation What is atrial fibrillation? Atrial fibrillation (also called A-fib) is a fast or irregular heartbeat that starts in the upper chambers of the heart. The abnormal heartbeat affects the ability of the heart to pump blood to the rest of the body. What is the cause? An electrical signal in your heart starts each heartbeat, causing the heart muscle to squeeze (contract). Normally, this signal starts in the upper right chamber of the heart (the right atrium) at a place called the sinus node. The signal then follows normal pathways to the upper left atrium and to the lower chambers of the heart (the ventricles). When you have atrial fibrillation, electrical signals don?t start in the normal place in the right atrium and don?t travel normally. This can cause the upper chambers of the heart (atria) to beat very fast and not in a normal pattern. Common causes of heart rhythm problems are conditions that damage the heart, like coronary artery disease, heart attack, or heart failure. Problems with the heart valves are another common cause. The heart has 4 valves that open and close with each heartbeat to help blood flow in the right direction through the heart. Other causes of atrial fibrillation include: -Health problems, such as a stroke, lung disease, diabetes, overactive thyroid gland, or high blood pressure -Abuse of alcohol or drugs, such as cocaine Sometimes no cause can be found. What are the symptoms? Some people don?t have any symptoms. When atrial fibrillation does cause symptoms, the most common ones are: -Feeling like your heart is beating too fast or too hard or skipping beats or fluttering -Feeling tired or weak all the time Symptoms that are more serious include: -Chest pain -Trouble breathing -Lightheadedness or dizziness -Confusion How is it diagnosed? Your healthcare provider will ask about your symptoms and medical history and examine you. Tests may include: -An ECG (also called an EKG), which measures and records your heartbeat. You may have an ECG while you are resting or while you exercise on a treadmill. You may also be asked to wear a small portable ECG monitor for a few days or sometimes a couple weeks. -Blood tests -An echocardiogram, which uses sound waves (ultrasound) to show the structures of the heart, like the valves How is it treated? The goal of treatment is to help the heart keep a normal rhythm. Your treatment depends on the cause of the atrial fibrillation, how often you have symptoms, and the severity of your symptoms. If you have no symptoms, or your symptoms are fairly mild, you may not need treatment. For some people atrial fibrillation lasts just a short time and the heart goes back to a normal rhythm on its own. If you keep having spells of atrial fibrillation, treatment may help keep you from having so many spells. If a health problem like a leaky heart valve is causing the atrial fibrillation, treating the health problem may also treat the fast or irregular heartbeat. Other possible treatments are: -Medicine: Your provider may prescribe medicine to slow or restore a normal heart rate and rhythm. You may also need medicine to prevent blood clots because when the heart beats irregularly, some of the blood can stay in the upper chambers too long. This makes it easier for blood clots to form, increasing your risk of having a stroke or heart attack. -Electrical cardioversion: First, you will be given medicine called anesthesia to keep you from feeling pain during the procedure. Then your chest will be given an electrical shock. The electrical shock should make your heart start beating normally again. You may need medicine to keep your heart rhythm normal after this procedure. -Ablation: Ablation is a procedure that uses a small tube called a catheter to deliver energy to the inside of the heart. The energy (usually radio waves) scars small areas of heart tissue. The scars block abnormal electrical pathways and help you have a normal heart rhythm. With some types of ablation treatment, you will also need a pacemaker. A pacemaker is an electronic device put under the skin of your chest to help control the heartbeat. How can I take care of myself? -Take your medicines as prescribed. -Keep your appointments for follow-up blood tests. -Make sure your healthcare provider knows about changes in your diet or medical condition. Your provider also needs to know about all prescription and nonprescription medicines, herbs, or supplements that you are taking. Some medicines may interact with your heart medicine or increase your risk for atrial fibrillation. -If you want to drink alcohol, ask your provider how much is safe for you to drink. -Follow your healthcare provider's instructions. Ask your provider: ?How and when you will hear your test results ?How long it will take to recover ?What activities you should avoid and when you can return to your normal activities ?How to take care of yourself at home ?What symptoms or problems you should watch for and what to do if you have them -Make sure you know when you should come back for a checkup. How can I help prevent atrial fibrillation? The best prevention is to have a heart-healthy lifestyle. -Keep a healthy weight. -Eat a healthy diet that is low in sodium and saturated and trans fat. -Stay fit with the right kind of exercise for you. -Decrease stress. -Don?t smoke. -Limit your use of alcohol. If you have heart disease or high blood pressure, follow your healthcare provider's instructions for treatment. Developed by [employer]. Published by [employer]. Copyright ?2013 [employer] and/or one of its subsidiaries. All rights reserved. 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 [Z79.899] At risk for stroke [Z91.89] On anticoagulant therapy [Z79.01] Order(s):EKG WITH INTERPRETATION [69289GID] Order #: [id number]: 1 diltiazem CD (CARDIZEM CD, CARTIA XT) 120 mg 24 hr capsuleTake 1 capsule by mouth twice daily.Disp: 180 capsuleRfl: 3 Prescriptions as of 05/08/2018 Sig: DILTIAZEM SR 120 MG 24 HR CAP Take 1 capsule by mouth twice* DOFETILIDE 500 MCG CAPSULE Take 1 capsule by mouth twice* KLOR-CON M10 MEQ TABLET,EXTEN* Take 10 mEq by mouth once cele* EPIPEN 2-HYACINTH 0.3 MG/0.3 ML IN* Inject 0.3 mg subcutaneously * WARFARIN 4 MG TABLET As directed ALLOPURINOL 100 MG TABLET Take 100 mg by mouth twice da* FUROSEMIDE 40 MG TABLET Take 40 mg by mouth once tha* POTASSIUM CHLORIDE ER 10 MEQ * Take 10 mEq by mouth once cele* WARFARIN 5 MG TABLET As directed OMEGA-3 FATTY ACIDS-FISH OIL * Take 1 tablet by mouth once d* LANSOPRAZOLE 30 MG CAPSULE,DE* Take 30 mg by mouth once tha* Problem List As Of Date 05/08/2018 Noted Resolved Atrial fibrillation (HCC) [I48.91] More... Atrial flutter (HCC) [I48.92] Palpitations [R00.2] Paroxysmal supraventricular tachycardia (HCC) [* Tachycardia [R00.0] More... On mcc drug therapy [Z79.899] More... 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 MCC current use of antiarrhythmic drug [Z* More... Essential hypertension [I10] Persistent atrial fibrillation (HCC) [I48.1] More... At risk for stroke [Z91.89] More... Other instructions from your clinician: Atrial Fibrillation What is atrial fibrillation? Atrial fibrillation (also called A-fib) is a fast or irregular heartbeat that starts in the upper chambers of the heart. The abnormal heartbeat affects the ability of the heart to pump blood to the rest of the body. What is the cause? An electrical signal in your heart starts each heartbeat, causing the heart muscle to squeeze (contract). Normally, this signal starts in the upper right chamber of the heart (the right atrium) at a place called the sinus node. The signal then follows normal pathways to the upper left atrium and to the lower chambers of the heart (the ventricles). When you have atrial fibrillation, electrical signals don?t start in the normal place in the right atrium and don?t travel normally. This can cause the upper chambers of the heart (atria) to beat very fast and not in a normal pattern. Common causes of heart rhythm problems are conditions that damage the heart, like coronary artery disease, heart attack, or heart failure. Problems with the heart valves are another common cause. The heart has 4 valves that open and close with each heartbeat to help blood flow in the right direction through the heart. Other causes of atrial fibrillation include: -Health problems, such as a stroke, lung disease, diabetes, overactive thyroid gland, or high blood pressure -Abuse of alcohol or drugs, such as cocaine Sometimes no cause can be found. What are the symptoms? Some people don?t have any symptoms. When atrial fibrillation does cause symptoms, the most common ones are: -Feeling like your heart is beating too fast or too hard or skipping beats or fluttering -Feeling tired or weak all the time Symptoms that are more serious include: -Chest pain -Trouble breathing -Lightheadedness or dizziness -Confusion How is it diagnosed? Your healthcare provider will ask about your symptoms and medical history and examine you. Tests may include: -An ECG (also called an EKG), which measures and records your heartbeat. You may have an ECG while you are resting or while you exercise on a treadmill. You may also be asked to wear a small portable ECG monitor for a few days or sometimes a couple weeks. -Blood tests -An echocardiogram, which uses sound waves (ultrasound) to show the structures of the heart, like the valves How is it treated? The goal of treatment is to help the heart keep a normal rhythm. Your treatment depends on the cause of the atrial fibrillation, how often you have symptoms, and the severity of your symptoms. If you have no symptoms, or your symptoms are fairly mild, you may not need treatment. For some people atrial fibrillation lasts just a short time and the heart goes back to a normal rhythm on its own. If you keep having spells of atrial fibrillation, treatment may help keep you from having so many spells. If a health problem like a leaky heart valve is causing the atrial fibrillation, treating the health problem may also treat the fast or irregular heartbeat. Other possible treatments are: -Medicine: Your provider may prescribe medicine to slow or restore a normal heart rate and rhythm. You may also need medicine to prevent blood clots because when the heart beats irregularly, some of the blood can stay in the upper chambers too long. This makes it easier for blood clots to form, increasing your risk of having a stroke or heart attack. -Electrical cardioversion: First, you will be given medicine called anesthesia to keep you from feeling pain during the procedure. Then your chest will be given an electrical shock. The electrical shock should make your heart start beating normally again. You may need medicine to keep your heart rhythm normal after this procedure. -Ablation: Ablation is a procedure that uses a small tube called a catheter to deliver energy to the inside of the heart. The energy (usually radio waves) scars small areas of heart tissue. The scars block abnormal electrical pathways and help you have a normal heart rhythm. With some types of ablation treatment, you will also need a pacemaker. A pacemaker is an electronic device put under the skin of your chest to help control the heartbeat. How can I take care of myself? -Take your medicines as prescribed. -Keep your appointments for follow-up blood tests. -Make sure your healthcare provider knows about changes in your diet or medical condition. Your provider also needs to know about all prescription and nonprescription medicines, herbs, or supplements that you are taking. Some medicines may interact with your heart medicine or increase your risk for atrial fibrillation. -If you want to drink alcohol, ask your provider how much is safe for you to drink. -Follow your healthcare provider's instructions. Ask your provider: ?How and when you will hear your test results ?How long it will take to recover ?What activities you should avoid and when you can return to your normal activities ?How to take care of yourself at home ?What symptoms or problems you should watch for and what to do if you have them -Make sure you know when you should come back for a checkup. How can I help prevent atrial fibrillation? The best prevention is to have a heart-healthy lifestyle. -Keep a healthy weight. -Eat a healthy diet that is low in sodium and saturated and trans fat. -Stay fit with the right kind of exercise for you. -Decrease stress. -Don?t smoke. -Limit your use of alcohol. If you have heart disease or high blood pressure, follow your healthcare provider's instructions for treatment. Developed by [employer]. Published by [employer]. Copyright ?2014 [employer] and/or one of its subsidiaries. All rights reserved. 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 Medications Discontinued During This Encounter meclizine (ANTIVERT) 25 mg tab 04/25/2017 05/08/2018 Class: Historical Med Route: ORAL Sig: Take 25 mg by mouth as needed. Disc: Course of therapy completed diltiazem CD (CARDIZEM CD, CARTIA XT* 04/24/2016 05/08/2018 Class: Historical Med Route: ORAL Sig: Take 120 mg by mouth twice daily. Disc: Reason for discontinue is not on file. Disposition: Return in about 6 months (around 11/06/2018) for appt with Nevin Russo APN with EKG. Follow-up and Disposition History Recorded Letter Text Encounter Status:Closed by DWAYNE CAVANAUGH MD on 05/08/18 PROTHROMBIN TIME W/INR Collected: 04/30/2018 Status: F Source: [place] 9:34 AM [facility] REPOSITORY TYPE CODE TESTS RESULT OUT OF RANGE REFERENCE UNITS LAB L300.4150 11.7-14.9 SECONDS High PROTIME 22.6 LAB L300.4200 Normal INR 2.0 Performed By: #### L300.3900 #### [facility] Laboratory [facility] [address] [place], [address] LIVER PROFILE Collected: 04/30/2018 Status: F Source: [place] 9:33 AM [facility] REPOSITORY TYPE CODE TESTS RESULT OUT OF RANGE REFERENCE UNITS LAB L501.1500 6.4-8.2 g/dL Normal T PROT 7.5 LAB L501.1800 3.2-5.0 g/dL Normal ALB 3.7 LAB L501.1950 2.2-4.2 g/dL Normal GLOB 3.8 LAB L501.4100 15-37 U/L Low AST 14 LAB L501.4305 45-117 U/L Normal ALK P 77 LAB L501.4405 16-61 U/L Normal ALT 22 LAB L501.4600 0.20-1.00 mg/dL Normal T BILI 0.80 LAB L501.4700 0.00-0.30 mg/dL Normal D BILI 0.18 Performed By: #### L500.3400 #### [facility] [address] [place], [address] PROTHROMBIN TIME W/INR Collected: 04/18/2018 Status: F Source: [place] 6:08 AM [facility] REPOSITORY TYPE CODE TESTS RESULT OUT OF RANGE REFERENCE UNITS LAB L300.4150 11.7-14.9 SECONDS High PROTIME 21.0 LAB L300.4200 Normal INR 1.8 Performed By: #### L300.3900 #### [facility] [address] [place] [address]. [place], [address] PROTHROMBIN TIME W/INR Collected: 03/28/2018 Status: F Source: [place] 11:57 AM [facility] REPOSITORY TYPE CODE TESTS RESULT OUT OF RANGE REFERENCE UNITS LAB L300.4150 11.7-14.9 SECONDS High PROTIME 21.7 LAB L300.4200 Normal INR 1.9 Performed By: #### L300.3900 #### [facility] [address] [place] [address]. [place], [address] PROTHROMBIN TIME W/INR Collected: 03/12/2018 Status: F Source: [place] 2:06 PM [facility] REPOSITORY TYPE CODE TESTS RESULT OUT OF RANGE REFERENCE UNITS LAB L300.4150 11.7-14.9 SECONDS High PROTIME 24.0 LAB L300.4200 Normal INR 2.1 Performed By: #### L300.3900 #### [facility] [place], [address] PROTHROMBIN TIME W/INR Collected: 02/27/2018 Status: F Source: [place] 6:09 AM [facility] REPOSITORY TYPE CODE TESTS RESULT OUT OF RANGE REFERENCE UNITS LAB L300.4150 11.7-14.9 SECONDS High PROTIME 22.2 LAB L300.4200 Normal INR 1.9 Performed By: #### L300.3900 #### [facility] [address] [place], [address] CARDIOLOGY VISIT Observed: 02/18/2018 Status: F Source: [place] REPORT 12:11 PM [facility] REPOSITORY [facility] [address] [place] [address] OFFICE VISIT Date of Service: 02/18/18 MR#: [id number] Acct: [id number] Name: ENRIQUE MCNALLY III Rep #: [id number] : 1955 Provider: Parveen Medina MD Age/Sex: 62/M Location: [place] Status: Signed HPI HPI Details: ENRQIUE MCNALLY, is a 62 M who presents to the office today for for outpatient cardiovascular follow-up of a history of atrial fibrillation/flutter status post EPS/RFA on continued rate control therapy, anti-arrhythmic therapy, and anticoagulant therapy. From a cardiac standpoint he states he is doing well with no obvious palpitations, near-syncope, or syncope. He has denied any ongoing issues of concerning chest discomfort or CHF/pulmonary edema. He did have lipid labs performed by his PCP in December of this year. His total cholesterol was 203 with an LDL of 140, and HDL 47, and a triglyceride level of 80. He states he wants to adjust his diet to bring his lipid labs under better control. He also notes his INR fluctuates. He does admit to some dietary indiscretion with respect to eating leafy greens, etc. Intake Vital Signs02/18/18 Height 6 ft 1 in 02/18/18 Weight: 152 lb 02/18/18 Body Mass Index (BMI) 20.0 02/18/18 Blood Pressure 118/74 02/18/18 Blood Pressure Location Lt brachial Intake Visit Reasons: 6 M FU Nursing Consultant Required: No Accompanied by: none Is patient in pain?: No Allergies secobarbital sodium [From [place]] Allergy (Verified 02/18/18 11:26) Unknown venom-honey bee [bee venom (honey bee)] Allergy (Verified 02/18/18 11:26) Anaphylaxis Medications Allopurinol [Zyloprim] 100 mg PO BIDCM tab 10/27/15 [Rx Confirmed 02/18/18] Potassium Chloride [K-Dur] 10 meq PO DAILYCM tab 10/27/15 [Rx Confirmed 02/18/18] Dofetilide [Tikosyn] 500 mcg PO BID 01/25/16 [History Confirmed 02/18/18] Warfarin [Coumadin] 5 mg PO SUSA 01/25/16 [History Confirmed 02/18/18] furosemide 40 mg tablet 40 mg PO DAILY #90 tab 08/19/17 [Rx Confirmed 02/18/18] diltiazem CD 120 mg capsule,extended release 24 hr 120 mg PO BID #180 cap 10/15/17 [Rx Confirmed 02/18/18] warfarin 3 mg tablet 3 mg PO .COMPLEX #30 tab 11/01/17 [Rx Confirmed 02/18/18] warfarin 4 mg tablet 4 mg PO .COMPLEX #30 tab 11/01/17 [Rx Confirmed 02/18/18] warfarin 1 mg tablet 2 mg PO 2XW #90 tab 11/14/17 [Rx Confirmed 02/18/18] omeprazole 20 mg tablet,delayed release 20 mg PO QDAY 02/11/18 [History Confirmed 02/18/18] Ejection fraction %: 60 to 64 PFSH Medical History Paroxysmal atrial tachycardia (Acute) Paroxysmal atrial fibrillation (Acute) Hypertension (Chronic) Tachycardia (Acute) MCC (current) use of anticoagulants (Acute) Afib (Chronic) Tobacco dependence (Chronic) Bradycardia (Acute) Near syncope (Acute) GERD (gastroesophageal reflux disease) (Acute) Gout (Acute) History of DVT (deep vein thrombosis) (Acute) Type 2 diabetes mellitus (Chronic) Surgical History History of left hip replacement (Chronic) History of cardiac radiofrequency ablation (Resolved 04/2008) Status post peripheral artery angioplasty (Resolved) Family History Mother Diabetes Hypertension Myocardial infarction Social History Smoking Status: Current every day smoker alcohol intake: never ROS Const Const: Negative for fatigue, weakness, night sweats, excessive sweating, frequent falls, headache(s) or daytime sleepiness Eyes Eyes: Negative for loss of peripheral vision, transient loss of vision, blind spots, double vision or blurry vision ENT ENT: Negative for headache(s), dizziness, balance problems, Nosebleed/epistaxis, tongue swelling or lip swelling Cardio Chest Pain: No Palpitations: No Edema: None Muscle aches with walking: None Resp Respiratory: Negative for SOB at rest, SOB orthopnea\SOB lying down, Cough, paroxysmal nocturnal dyspnea or SOB with activity GI GI: Negative nausea, vomiting, heartburn, black,tarry stools or bright, red blood in stools : Negative for hematuria Musc Musc: Negative for balance problems, muscle aches/ myalgia, muscle weakness or joint pain Skin Skin: Negative non-healing lesions, unusual bruising or rash Neuro Neuro: Negative for weakness, frequent falls, headache(s), double vision, dizziness, lightheadedness, orthostatic symptoms, blurry vision or lack of coordination Kevin Hematologic/Lymphatic: Negative for easy bruising or easy bleeding Endo Endo: Negative for fatigue, excessive sweating, cold intolerance, heat intolerance, increased thirst/drinking or hair loss Psych Psych: Negative for anxiety or depression Allergy Allergy/Immunology: Negative for throat swelling, Negative for tongue swelling, Negative for hives, Negative for rash, Negative for lip swelling Cardiology Exam Const Appearance: cooperative, healthy appearing, comfortable, no acute distress, well developed and well groomed Nutritional Appearance: thin Orientation: alert, awake and oriented x3 Head Head: normal to inspection, normocephalic and atraumatic Ears: hearing grossly impaired Nose: external nose normal Face and Sinus: face symmetric Mouth: oral mucosae normal Teeth and gingiva: fair dentition Eyes Eyelids: eyelids normal Conjunctivae: conjunctivae normal Pupils: PERRL EOM: EOM intact bilaterally Neck Neck: normal visual inspection and full ROM Carotids: normal carotid upstroke Chest Chest inspection: normal inspection of the chest and symmetric chest movement Auscultation: Bilateral: Clear to Auscultation Cardio Palpation: normal PMI Rate: regular rate Rhythm: regular rhythm Heart sounds: S1 normal and S2 normal GI GI: normal to inspection, bowel sounds present, soft and no hepatosplenomegaly Neuro General: alert, awake, oriented x3 and moves all extremities Skin Skin: no rashes or lesions noted Extremities Pulses: Normal: Right Radial Pulse, Left Radial Pulse Lower Extremity Edema: None: Bilateral Musculoskel Musculoskeletal: joint tenderness Psych Psychological: normal affect Assessment AND Plan 1. Paroxysmal atrial fibrillation I48.0 Plan At the present time he appears to be remaining in a regular rhythm. He will continue his current medical management. He has continued to follow with [facility] electrophysiology as well. 2. Atrial flutter, unspecified type I48.92 Plan Again he appears to be doing well with his underlying atrial dysrhythmias on his current medical therapy. He will continue future follow-up. He will continue to follow with [facility] electrophysiology as well 3. History of cardiac radiofrequency ablation (RFA) Z98.890 Plan He has undergone previous EPS/RFA. Again he appears without acute concerns at this time. He will continue his medical management and follow-up as noted above. 4. Essential hypertension I10 Plan His blood pressure appears to be reasonably well-controlled at this time. He will continue his current medical therapy 5. Tobacco dependence F17.200 Plan He admits that he continues to smoke cigarettes. He was counseled on the need to discontinue his cigarette smoking 6. Hyperlipidemia, unspecified hyperlipidemia type E78.5 Plan His LDLs are elevated. He will be referred to dietary therapy. Hopefully they will assist him with dietary adjustment to bring his cholesterol under better control as well as to assist with his dietary adjustments while being on warfarin/Coumadin. He will be scheduled for future outpatient lipid lab as well Orders Orders: Referrals: Plan Detail Other Orders Referrals: Additional Comments Thank you for allowing me to participate in the care of your patient. Please don't hesitate to call if any issues arise This note was generated using a voice recognition system and there may be incorrect words, spelling or punctuation that were not noted when reviewing the office note prior to saving. Follow Up 9 Months (PFM) Coding Level of Care Code Off vis,est,level 4 Diagnoses Paroxysmal atrial fibrillation I48.0 Atrial flutter, unspecified type I48.92 Atrial flutter type: unspecified History of cardiac radiofrequency ablation (RFA) Z98.890 Essential hypertension I10 Hypertension type: essential hypertension Tobacco dependence F17.200 Hyperlipidemia, unspecified hyperlipidemia type E78.5 Hyperlipidemia type: unspecified Coding Level of Care Code Off vis,est,level 4 Diagnoses Paroxysmal atrial fibrillation I48.0 Atrial flutter, unspecified type I48.92 Atrial flutter type: unspecified History of cardiac radiofrequency ablation (RFA) Z98.890 Essential hypertension I10 Hypertension type: essential hypertension Tobacco dependence F17.200 Hyperlipidemia, unspecified hyperlipidemia type E78.5 Hyperlipidemia type: unspecified 02/18/18 1211 <Electronically signed by Parveen Medina MD> Date [facility]en Medina MD [facility] Signature: Date (if applicable) CC: Sarah Daugherty MD PROTHROMBIN TIME W/INR Collected: 02/14/2018 Status: F Source: [place] 10:38 AM [facility] REPOSITORY TYPE CODE TESTS RESULT OUT OF RANGE REFERENCE UNITS LAB L300.4150 11.7-14.9 SECONDS High PROTIME 22.4 LAB L300.4200 Normal INR 2.0 Performed By: #### L300.3900 #### [facility] [address] [place], [place], [address] PROTHROMBIN TIME W/INR Collected: 01/29/2018 Status: F Source: [place] 6:10 AM [facility] REPOSITORY TYPE CODE TESTS RESULT OUT OF RANGE REFERENCE UNITS LAB L300.4150 11.7-14.9 SECONDS High PROTIME 23.5 LAB L300.4200 Normal INR 2.1 Performed By: #### L300.3900 #### [facility] [address] [place], [address] DOWNTIME REPORT Observed: 01/17/2018 Status: F Source: [place] 12:14 PM [facility] Medical Records Department [address] [place] [address] Downtime Report MR#: [id number] Acct: [id number] Name: ENRIQUE MCNALLY YARELI Rep #: [id number] : 1955 62 From: Zak Guan PCP: Sarah Daugherty MD Status: REG RCR This patient was seen during an EMR downtime December 31, 2017 - January 07, 2018. This patient may have a combination of paper and electronic documentation or all paper documentation. All documentation is viewable within the e-chart portion of [facility] for each patient visit. PROTHROMBIN TIME W/INR Collected: 01/17/2018 Status: F Source: [place] 6:09 AM [facility] REPOSITORY TYPE CODE TESTS RESULT OUT OF RANGE REFERENCE UNITS LAB L300.4150 11.7-14.9 SECONDS High PROTIME 20.6 LAB L300.4200 Normal INR 1.8 Performed By: #### L300.3900 #### [facility] [address] [place], [address] CT CHEST W/O CONTRAST Observed: 01/16/2018 Status: F Source: [place] 9:25 AM [facility] REPOSITORY Performed at [facility] APPROVED BY: JUNIOR TINAJERO MD EXAMINATION: CHEST CT WITHOUT CONTRAST CLINICAL HISTORY: Lung nodule follow-up Technique: Spiral CT acquisition of the chest from the thoracic inlet to the upper abdomen without contrast. MQ: CTCWOR_4 CT Dose-Length Product: 78.5 mGy*cm CT Dose Reduction Employed: Automated exposure control (AEC) was used Comparison: 01/23/2017, 07/26/2016. 04/06/2016. RESULT: Limitations: None. Lines, tubes, and devices: None. Lung parenchyma and pleura: There is emphysema with mild, diffuse bronchiectasis. There are stable subcentimeter pulmonary nodules. For example, there is a a stable, approximately 6 mm nodule seen wit hin the right upper lobe (series 4, image #165). There is a stable, approximately 6 mm nodule seen within the right middle lobe (series 4, image #215). There is a stable, approximately 6-7 mm nodule s een within the right lower lobe, abutting the right hemidiaphragm (series 4, image #217). There is a stable, approximately 5 mm nodule seen within left lower lobe (series 4, image #176). Multiple othe r subcentimeter pulmonary nodules are also stable. A few calcified granulomas are seen within the lungs. There is no CT evidence for pneumonia. There is no pleural effusion, endobronchial lesion, or pneumothorax. Thoracic inlet, heart, and mediastinum: There are stable prominent, not pathologically enlarged mediastinal and bilateral hilar lymph nodes, likely reactive. No jeniffer axillary adenopathy is identified . Atherosclerotic calcifications are present within the thoracic aorta and coronary arteries. The heart is normal in size, and there is no significant pericardial effusion. The main pulmonary is dila david, measuring approximately 3.1 cm, which can be seen with pulmonary arterial hypertension. Bones and soft tissues: There is osteopenia, scoliosis, and multilevel degenerative change seen within the visualized spine. Wedge compression deformities are again seen involving the T8, T11, and L1 vertebral bodies. Upper abdomen: Nonspecific wall thickening of the stomach likely relates to underdistention. IMPRESSION: Emphysema with mild, diffuse bronchiectasis. Stable noncalcified subcentimeter bilateral pulmonary nodules, measuring up to 7 mm, which have been stable since June 2016. A follow-up examination in June 2018 with document a total two-year stability. Dilated main pulmonary, measuring approximately 3.1 cm which can be seen with pulmonary arterial hypertension. Multiple wedge compression deformities are again seen within the spine. CBC W/DIFF, AUTOMATED Collected: 01/08/2018 Status: F Source: [place] 9:37 AM [facility] REPOSITORY TYPE CODE TESTS RESULT OUT OF RANGE REFERENCE UNITS LAB L100.1000 4.4-11.0 K/mm3 Normal WBC 7.5 LAB L100.1200 4.6-6.2 M/mm3 Normal RBC 4.79 LAB L100.1300 13.0-16.5 g/dl Normal HGB 14.9 LAB L100.1400 40-54 % Normal HCT 42.9 LAB L100.1500 80-94 fL Normal MCV 89.6 LAB L100.1600 27.0-32.0 pg Normal MCH 31.1 LAB L100.1700 32-36 g/gl Normal MCHC 34.7 LAB L100.1810 11.6-14.6 % High RDW CV 15.2 LAB L100.1820 35.1-43.9 fl High RDW SD 49.9 LAB L100.1900 150-450 K/mm3 Normal PLT 270 LAB L100.2000 6.2-12.0 fl Normal MPV 10.5 LAB L100.2100 47-70 % Normal NEUT% 67.5 LAB L100.2200 19-41 % Normal LY% 22.2 LAB L100.2300 0-10 % Normal MONO% 7.9 LAB L100.2400 0-5 % Normal EO% 1.6 LAB L100.2500 0-1 % Normal BASO% 0.7 LAB L100.2550 0.0-0.9 % Normal IM GRAN % 0.100 Result Comment: IG% - Immature Granulocytes (promyelocytes, myelocytes and metamyelocytes) > 1% indicates that a LEFT SHIFT is Present. LAB L100.2620 2.0-7.7 X10 3/uL Normal Absolute Neut 5.0 LAB L100.2720 0.83-4.51 X10 3/ul Normal Absolute Lymph 1.66 Performed By: #### L100.0100 #### [facility] [address] [place], [address] COMPREHENSIVE METABOLIC Collected: 01/08/2018 Status: F Source: [place] 9:37 AM [facility] REPOSITORY TYPE CODE TESTS RESULT OUT OF RANGE REFERENCE UNITS LAB L501.0100 74-106 mg/dL Low GLU 61 Result Comment: Please note revised GLUCOSE reference range effective 2017. LAB L501.1000 7-18 mg/dL Normal BUN 8 LAB L501.1100 0.70-1.30 mg/dL Normal CREAT,SERUM 1.01 Result Comment: The validity of the calculated GFR AND GFRAA in patients over 70 years has not been determined. Clinical correlation is essential. LAB L501.1110 >60 mL/min Normal EST GFR 79 Result Comment: Non- GFR Calc LAB L501.1115 >60 mL/min Normal EST GFR - AA 96 Result Comment: GFR Calc LAB L501.1300 10-20 RATIO Low BUN/CRE 7.9 LAB L501.1500 6.4-8.2 g/dL Normal T PROT 8.1 LAB L501.1800 3.2-5.0 g/dL Normal ALB 4.1 LAB L501.1950 2.2-4.2 g/dL Normal GLOB 4.0 LAB L501.2000 0.9-2.4 RATIO Normal A/G 1.0 LAB L501.2200 8.5-10.1 mg/dL Normal CA 9.1 LAB L501.4100 15-37 U/L Normal AST 19 LAB L501.4305 45-117 U/L Normal ALK P 75 LAB L501.4405 16-61 U/L Normal ALT 25 LAB L501.4600 0.20-1.00 mg/dL Normal T BILI 0.70 LAB L501.5300 136-145 mmol/L Low NA 127 LAB L501.5600 3.5-5.1 mmol/L Normal K 4.4 LAB L501.5900 98-107 mmol/L Low CL 88 LAB L501.6100 21.0-32.0 mmol/L Normal CO2 27.0 LAB L501.6200 5-15 Normal GAP 12 Performed By: #### L500.4050, L501.1400, L501.5200, L501.9520 #### [facility] [address] [place], [address] URIC ACID Collected: 01/08/2018 Status: F Source: [place] 9:37 AM [facility] REPOSITORY TYPE CODE TESTS RESULT OUT OF RANGE REFERENCE UNITS LAB L501.1400 3.5-7.2 mg/dL Normal URIC 6.6 Result Comment: The drugs N-Acetylcysteine and Metamizole may falsely depress this assay. Performed By: #### L500.4050, L501.1400, L501.5200, L501.9520 #### [facility] [address] [place], [address] MAGNESIUM Collected: 01/08/2018 Status: F Source: [place] 9:37 AM [facility] REPOSITORY TYPE CODE TESTS RESULT OUT OF RANGE REFERENCE UNITS LAB L501.5200 1.6-2.6 mg/dL Normal MG 1.9 Performed By: #### L500.4050, L501.1400, L501.5200, L501.9520 #### [facility] [address] [place], [address] THYROID STIM HORMONE Collected: 01/08/2018 Status: F Source: [place] (TSH) 9:37 AM [facility] REPOSITORY TYPE CODE TESTS RESULT OUT OF RANGE REFERENCE UNITS LAB L501.9520 0.358-3.74 uIU/mL Normal TSH 1.84 Performed By: #### L500.4050, L501.1400, L501.5200, L501.9520 #### [facility] [address] [place], [address] PROTHROMBIN TIME W/INR Collected: 01/03/2018 Status: F Source: [place] 6:05 AM [facility] REPOSITORY Order Comment: RESULT(S) PREVIOUSLY REPORTED ON MANUAL REQUISITION DURING DOWNTIME. TYPE CODE TESTS RESULT OUT OF RANGE REFERENCE UNITS LAB L300.4150 11.7-14.9 SECONDS High PROTIME 21.4 LAB L300.4200 Normal INR 1.9 Performed By: #### L300.3900 #### [facility] [address] [place], [address] PROTHROMBIN TIME W/INR Collected: 12/27/2017 Status: F Source: [place] 6:09 AM [facility] REPOSITORY TYPE CODE TESTS RESULT OUT OF RANGE REFERENCE UNITS LAB L300.4150 11.7-14.9 SECONDS High PROTIME 19.2 LAB L300.4200 Normal INR 1.6 Performed By: #### L300.3900 #### [facility] [address] [place], [address] PROTHROMBIN TIME W/INR Collected: 12/13/2017 Status: F Source: [place] 6:07 AM [facility] REPOSITORY TYPE CODE TESTS RESULT OUT OF RANGE REFERENCE UNITS LAB L300.4150 11.7-14.9 SECONDS High PROTIME 22.9 LAB L300.4200 Normal INR 2.0 Performed By: #### L300.3900 #### [facility] [address] [place], [address] PT D/C SUMMARY (1) Observed: 11/30/2017 Status: F Source: [place] 6:43 AM [facility] REPOSITORY [facility] Therapy [facility] [place], [place] [address] Fax REHABILITATION SERVICES DISCHARGE SUMMARY MR#: [id number] Acct: [id number] Name: ENRIQUE MCNALLY III Rep #: [id number] : 1955 62 From: Gagandeep Adams DPT, OCS, CSCS Referring Dr.: Eva Storey MD Status: REG RCR Insurance: [employer] HP - PT D/C Summary It has been my pleasure to treat ENRIQUE MCNALLY III under orders from Eva Storey, for the diagnosis of Back pain/leg pain for a total of 4 visit(s). Discharge Date: 11/29/17 Please see the following information for a summary of their discharge status. 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 A little stiff after two hours. Doing everything well. Gets sore in back if he overdoes it. Time is helping. Intemittent R hip tingly if he pushes it too hard but improving. Exercises are going OK with strength every other day, doing one time a day stretches. - Pain R LBP Pain Intensity (Out of 10): 0 - Overall Improvement % Improvement: 70 - Objective Objective/Function: Still hunches over when sitting. strength in LE improving and functional. ROM LB WNL and without pain today. strength 4+/5 in LE. Walk and steps normal. Remains slightly hunched but doing well otherwise. OVERALL EXCELLENT IMPROVEMENT AND LIFE ABOUT BACK TO NORMAL. 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 Goal Progress: Progressing Goal 2:: patient able to trasnfer in bed and roll without discomfort. Goal Progress: Goal Met Goal 3:: pt I approp ex to minimize futre problems. Goal Progress: Goal Met Goal 4:: Pat report 90% improved and activity with pain no greater than transient /10 Goal Progress: Progressing - Plan Plan: D/C - D/C Information Discharge Comments: Doing well and will continue HEP on his own. If there are questions or concerns regarding this patient's physical therapy, please feel free to call me at [phone]. Thank you for the referral of this patient. Sincerely, Gagandeep Adams DPT, OC <Electronically signed by Gagandeep Adams DPT, JI, CSCS> 11/30/17 0643 CC: Eva Storey MD; Sarah Daugherty EBG Signed PROTHROMBIN TIME W/INR Collected: 11/29/2017 Status: F Source: [place] 6:20 AM [facility] REPOSITORY TYPE CODE TESTS RESULT OUT OF RANGE REFERENCE UNITS LAB L300.4150 11.7-14.9 SECONDS High PROTIME 21.2 LAB L300.4200 Normal INR 1.8 Performed By: #### L300.3900 #### [facility] [address] [place], [address] PROGRESS Observed: 11/21/2017 Status: COMPLETED Source: [place] 2:06 PM CLINIC OTHER CAMPUS REPOSITORY [facility] ID: [id number] Author: Nevin Russo Service: (none) Author Type: Nurse Practitioner Type: Progress Notes Filed: 11/21/2017 4:39 PM Note Text: HISTORY OF PRESENT ILLNESS: Mr. Mcnally is a 61 year old male who presents today for a cardiovascular medicine follow-up visit. ? History copied from previous notes, edited as needed: Mr. Mcnally has a long history of AF, possibly since the . The AF was previously very symptomatic, and was refractory to medical therapy. He underwent AF catheter ablation at [facility] in 2007. The procedure was complicated by an acute deep venous thrombosis (DVT) of the right iliac vein. According to the medical records, there had been difficulty during the ablation procedure to access the right femoral vein. Thrombolysis was not effective to restore patency, although at least one collateral channel developed that relieved the lower extremity swelling. 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 Mr. Mcnally developed recurrent AF and for several years was minimally symptomatic with appropriate ventricular rate control. Treatment with antiarrhythmic drugs, including flecainide, was ineffective. Due to his relatively young age, a more aggressive approach to maintaining sinus rhythm had been considered. However, the patient had steadfastly maintained he did not want to take other drugs or in particular undergo another catheter ablation procedure. So for several years he has been managed with a ventricular rate control treatment approach. More recently (2014), the AF had become more bothersome. He states he clearly felt better in sinus rhythm than in the AF. He described symptomatic episodes, particularly since the 2nd week of June 2014, during which he felt palpitation associated with feeling shaky and dizzy. Episodes were occurring occasionally, and lasted up to a few hours. A beta-john medication was added to his regimen. An ambulatory Holter revealed symptomatic atrial fibrillation with rapid ventricular rates. He was admitted to [facility] in 08/2014 for loading of the antiarrhythmic drug, dofetilide. He then underwent electrical DC cardioversion 09/10/2014. He was then discharged home on the dofetilide 500 mcg twice daily. He was then evaluated by Dr. Medina in late September 2014 and was found to be having recurrent episodes of symptomatic arrhythmia. He underwent additional electrical DC cardioversions, but the atrial arrhythmias recurred. Additional history provided 05/03/2016: Mr. Mcnally underwent redo catheter ablation procedure in September 2015 here at [facility]. The procedure involved redo catheter ablation for the atrial fibrillation, and also targeted and ablated multiple atypical left atrial arrhythmias including atrial tachycardias and/or atrial flutters. Mr. Mcnally states that since the ablation procedure he has had improvement in his symptoms. He did have some recurrence of his symptoms early after the procedure and was treated with the dofetilide (Tikosyn). With these measures, he only occasionally feels mild palpitations that do not last for very long period of time. He has not experienced what he describes as the hard palpitations since the ablation procedure. He has been very busy recently and under some stress due to his mother having open heart surgery here at [facility] recently. He denies chest pain, shortness of breath, orthopnea, cough, edema, PND, lightheadedness or syncope. ? Additional history this visit 05/16/2017: Mr. Mcnally has been feeling well. Better than I have in 20 years. He is tolerating his medications well. He denies chest pain, shortness of breath, orthopnea, edema, palpitations, PND, lightheadedness or syncope. ? Today, Enrique Mcnally presents for follow up regarding atrial fibrillation. He denies recurrent atrial fibrillation. He denies CP, SOB, dizziness, syncope, palpitations. 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 (Tikosyn); indication: symptomatic AF or atrial flutter - On anticoagulant therapy warfarin; indication: stroke prevention AF; [id number] = 2 - On terminal superintendent drug therapy high risk medication: antiarrhythmic drug dofetilide (Tikosyn); indication: symptomatic AF/flutter - Palpitations - Paroxysmal supraventricular tachycardia (HCC) - Persistent atrial fibrillation (HCC) recurrent; symptomatic; s/p AF ablation 04/2008 [facility]; s/p redo AF ablation 09/2015 - Tachycardia - Tobacco dependence syndrome encouraged to quit - Type 2 diabetes mellitus (HCC) diagnosed 2009; diet-controlled PAST SURGICAL HISTORY Procedure Laterality Date - AFIB ABLATION/PULM VEIN ISOLATION 10/12/2015 redo AF catheter ablation/PVAI; also ablation of two macroreentrant atypical left atrial flutters; [facility] Dr. Cavanaugh - CARDIAC CATH 09/2006 - CATHETER, ABLATION 05/25/2008 [facility], Dr. Carlos Huggins - ECHO 04/06/2016 normal LV size and systolic fxn; LVEF 55-60%; no significant valvular abnormalities - IR VENOUS SENIOR QA TESTER 05/28/2008 unsuccessful angioplasty attempts at right common femoral vein and external iliac vein occlusions; [facility] - REPAIR OF FEMUR Left 1980 ORIF left femur Social History Substance Use Topics - Smoking status: Current Every Day Smoker Packs/day: 1.00 Types: Cigarettes Start date: 07/30/1974 - Smokeless tobacco: Never Used - Alcohol use Yes Comment: occasionally FAMILY HISTORY Problem Relation Age of Onset - Diabetes Father - Coronary Artery Disease Mother - Diabetes Mother - Heart Mother [place] AND stents - Asthma Sister - Prostate Cancer Paternal Uncle ALLERGIES Allergen Reactions - Insect Extracts Swelling - Med-Hist Swelling SECONOL - Succinylcholine Swelling dofetilide (TIKOSYN) 500 mcg capsule TAKE 1 CAPSULE BY MOUTH TWICE DAILY meclizine (ANTIVERT) 25 mg tab Take 25 mg by mouth as needed. KLOR-CON M10 10 mEq tablet Take 10 mEq by mouth once daily. diltiazem CD (CARDIZEM CD, CARTIA XT) 120 mg 24 hr capsule Take 120 mg by mouth twice daily. EPIPEN 2-HYACINTH 0.3 mg/0.3 mL auto-injector Inject 0.3 mg subcutaneously as needed (allergic reactions). warfarin (COUMADIN) 4 mg tablet As directed allopurinol (ZYLOPRIM) 100 mg tablet Take 100 mg by mouth twice daily. furosemide (LASIX) 40 mg tablet Take 40 mg by mouth once daily. potassium chloride (K-TAB) 10 mEq tablet Take 10 mEq by mouth once daily. warfarin (COUMADIN) 5 mg tablet As directed Fish Oil-Bon Wier-3 Fatty Acids 300-1,000 mg cap Take 1 tablet by mouth once daily. lansoprazole (PREVACID) 30 mg capsule Take 30 mg by mouth once daily. AFLURIA QUAD [id number], PF, 60 mcg/0.5 mL syrg FLUVIRIN [id number] 45 mcg (15 mcg x 3)/0.5 mL susp 1 Units by IM/SQ route every year. ZOSTAVAX, PF, 19,400 unit/0.65 mL injection Inject 0.65 mL subcutaneously every year. REVIEW OF SYSTEMS PAIN ASSESSMENT: Negative for pain, history of chronic pain, or current treatment for a chronic pain condition. GENERAL: No weight loss, malaise or fevers NECK: Negative for lumps, goiter, pain and significant neck swelling RESPIRATORY: Negative for cough, hemoptysis, wheezing, COPD, dyspnea or shortness of breath CARDIOVASCULAR: See HPI GI: No nausea, vomiting, or diarrhea MUSCULOSKELETAL: back pain SKIN: Negative for lesions, rash, and itching PSYCH: sleep fragmented HEMATOLOGY/LYMPHOLOGY: Negative for prolonged bleeding, bruising easily or swollen nodes ENDOCRINE: Negative for cold or heat intolerance, polyuria, polydipsia and goiter NEURO: No history of headaches, syncope, paralysis, seizures or tremors BP 120/72 Pulse 59 Ht 6' 1 (1.85m) Wt 151 lb 9.6 oz (68.8kg) SpO2 99% BMI 20.01 kg/(m2). PHYSICAL EXAMINATION: General appearance: Well appearing, alert, in no acute distress, well-hydrated, well nourished. Neck: Negative findings: no jugular venous distention Lungs: Lungs clear to auscultation. No wheezing, rhonchi, rales Heart: RRR without murmur, gallop, or rubs. No ectopy Abdomen: Normal abdominal exam, Abdomen soft, non-tender. Bowel sounds normal. No masses, organomegaly Extremities: No deformities, edema, skin discoloration, clubbing or cyanosis. Good capillary refill. Neuro: Oriented X 3 CARDIOVASCULAR MEDICINE TESTING: Electrocardiogram: Sinus bradycardia with first-degree AV block heart rate 58 bpm, PA interval 250 ms, she was duration 88 ms, QTC 465 ms. I have personally reviewed the Electrocardiogram. IMPRESSION: Mr. Mcnally is a 62 year old male patient of Dr. Cavanaugh with history of persistent atrial fibrillation status post pulmonary vein antrum isolation ablation ?2. He remains in sinus rhythm on Tikosyn 500 ?g every 12 hours as well as Cardizem CD for rate control. He is on Coumadin for chads vascular of 2 and he is followed by his procurement clerk Dr. Phillip. He's had blood work which is been drawn by his PCP we'll obtain those results. He will follow-up with Dr. Cavanaugh in 6 months. PLAN AND RECOMMENDATIONS: (I47.1) Paroxysmal supraventricular tachycardia (HCC) (primary encounter diagnosis) Comment: stable, see above Plan: EKG WITH INTERPRETATION (I48.1) Persistent atrial fibrillation (HCC) Comment: stable, see above Plan: EKG WITH INTERPRETATION (I10) Essential hypertension Comment: BP is WNL, he follows with his PCP (I48.4) Atypical atrial flutter (HCC) Comment: stable, see above Vlad Russo, MSN, HIV NURSE.CASE WORKER CNOV Observed: 11/21/2017 Status: COMPLETED Source: [facility] 2:00 PM CLINIC OTHER CAMPUS REPOSITORY Office Visit (AGCARDPHRA) ENRIQUE MCNALLY ([id number]) 1955 M Date Time Provider Department 11/21/17 2:00 PM NEVIN RUSSO (CASE WORKER) AGCARDPHRA During your visit today, we recorded the following information about you: Pulse Blood pressure Weight Height 59/minute 120/72 68.8 kg 1.854 m Vero Josehp CMA 11/21/2017 2:10 PM Signed Mr. Mcnally is here for a 6 month follow up. No cardiac complaints today. DOMINIQUE Kuhn, MSN, HIV NURSE.CASE WORKER 11/21/2017 4:39 PM Signed HISTORY OF PRESENT ILLNESS: Mr. Mcnally is a 61 year old male who presents today for a cardiovascular medicine follow-up visit. ? History copied from previous notes, edited as needed: Mr. Mcnally has a long history of AF, possibly since the . The AF was previously very symptomatic, and was refractory to medical therapy. He underwent AF catheter ablation at [facility] in 2007. The procedure was complicated by an acute deep venous thrombosis (DVT) of the right iliac vein. According to the medical records, there had been difficulty during the ablation procedure to access the right femoral vein. Thrombolysis was not effective to restore patency, although at least one collateral channel developed that relieved the lower extremity swelling. 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 Mr. Mcnally developed recurrent AF and for several years was minimally symptomatic with appropriate ventricular rate control. Treatment with antiarrhythmic drugs, including flecainide, was ineffective. Due to his relatively young age, a more aggressive approach to maintaining sinus rhythm had been considered. However, the patient had steadfastly maintained he did not want to take other drugs or in particular undergo another catheter ablation procedure. So for several years he has been managed with a ventricular rate control treatment approach. More recently (2014), the AF had become more bothersome. He states he clearly felt better in sinus rhythm than in the AF. He described symptomatic episodes, particularly since the 2nd week of June 2014, during which he felt palpitation associated with feeling ANDquot;shakyANDquot; and dizzy. Episodes were occurring occasionally, and lasted up to a few hours. A beta-john medication was added to his regimen. An ambulatory Holter revealed symptomatic atrial fibrillation with rapid ventricular rates. He was admitted to [facility] in 08/2014 for loading of the antiarrhythmic drug, dofetilide. He then underwent electrical DC cardioversion 09/10/2014. He was then discharged home on the dofetilide 500 mcg twice daily. He was then evaluated by Dr. Medina in late September 2014 and was found to be having recurrent episodes of symptomatic arrhythmia. He underwent additional electrical DC cardioversions, but the atrial arrhythmias recurred. Additional history provided 05/03/2016: Mr. Mcanlly underwent redo catheter ablation procedure in September 2015 here at [facility]. The procedure involved redo catheter ablation for the atrial fibrillation, and also targeted and ablated multiple atypical left atrial arrhythmias including atrial tachycardias and/or atrial flutters. Mr. Mcnally states that since the ablation procedure he has had improvement in his symptoms. He did have some recurrence of his symptoms early after the procedure and was treated with the dofetilide (Tikosyn). With these measures, he only occasionally feels mild palpitations that do not last for very long period of time. He has not experienced what he describes as the ANDquot;hard palpitationsANDquot; since the ablation procedure. He has been very busy recently and under some stress due to his mother having open heart surgery here at [facility] recently. He denies chest pain, shortness of breath, orthopnea, cough, edema, PND, lightheadedness or syncope. ? Additional history this visit 05/16/2017: Mr. Mcnally has been feeling well. ANDquot;Better than I have in 20 years.ANDquot; He is tolerating his medications well. He denies chest pain, shortness of breath, orthopnea, edema, palpitations, PND, lightheadedness or syncope. ? Today, Enrique Mcnally presents for follow up regarding atrial fibrillation. He denies recurrent atrial fibrillation. He denies CP, SOB, dizziness, syncope, palpitations. PAST MEDICAL HISTORY Diagnosis Date - Atrial flutter (HCC) - Degenerative joint disease involving multiple joints - Essential hypertension - Fracture of neck of femur (HCC) - Gastroesophageal reflux disease - Gout diagnosed 2001 - Hypogonadism in male - [facility] current use of antiarrhythmic drug dofetilide (Tikosyn); indication: symptomatic AF or atrial flutter - On anticoagulant therapy warfarin; indication: stroke prevention AF; [id number] = 2 - On terminal superintendent drug therapy high risk medication: antiarrhythmic drug dofetilide (Tikosyn); indication: symptomatic AF/flutter - Palpitations - Paroxysmal supraventricular tachycardia (HCC) - Persistent atrial fibrillation (HCC) recurrent; symptomatic; s/p AF ablation 04/2008 [facility]; s/p redo AF ablation 09/2015 - Tachycardia - Tobacco dependence syndrome encouraged to quit - Type 2 diabetes mellitus (HCC) diagnosed 2009; diet-controlled PAST SURGICAL HISTORY Procedure Laterality Date - AFIB ABLATION/PULM VEIN ISOLATION 10/12/2015 redo AF catheter ablation/PVAI; also ablation of two macroreentrant atypical left atrial flutters; [facility] Dr. Cavanaugh - CARDIAC CATH 09/2006 - CATHETER, ABLATION 05/25/2008 [facility], Dr. Carlos Huggins - ECHO 04/06/2016 normal LV size and systolic fxn; LVEF 55-60%; no significant valvular abnormalities - IR VENOUS SENIOR QA TESTER 05/28/2008 unsuccessful angioplasty attempts at right common femoral vein and external iliac vein occlusions; [facility] - REPAIR OF FEMUR Left 1979 ORIF left femur Social History Substance Use Topics - Smoking status: Current Every Day Smoker Packs/day: 1.00 Types: Cigarettes Start date: 07/30/1974 - Smokeless tobacco: Never Used - Alcohol use Yes Comment: occasionally FAMILY HISTORY Problem Relation Age of Onset - Diabetes Father - Coronary Artery Disease Mother - Diabetes Mother - Heart Mother [employer] ANDamp; stents - Asthma Sister - Prostate Cancer Paternal Uncle ALLERGIES Allergen Reactions - Insect Extracts Swelling - Med-Hist Swelling SECONOL - Succinylcholine Swelling dofetilide (TIKOSYN) 500 mcg capsule TAKE 1 CAPSULE BY MOUTH TWICE DAILY meclizine (ANTIVERT) 25 mg tab Take 25 mg by mouth as needed. KLOR-CON M10 10 mEq tablet Take 10 mEq by mouth once daily. diltiazem CD (CARDIZEM CD, CARTIA XT) 120 mg 24 hr capsule Take 120 mg by mouth twice daily. EPIPEN 2-HYACINTH 0.3 mg/0.3 mL auto-injector Inject 0.3 mg subcutaneously as needed (allergic reactions). warfarin (COUMADIN) 4 mg tablet As directed allopurinol (ZYLOPRIM) 100 mg tablet Take 100 mg by mouth twice daily. furosemide (LASIX) 40 mg tablet Take 40 mg by mouth once daily. potassium chloride (K-TAB) 10 mEq tablet Take 10 mEq by mouth once daily. warfarin (COUMADIN) 5 mg tablet As directed Fish Oil-Bon Wier-3 Fatty Acids 300-1,000 mg cap Take 1 tablet by mouth once daily. lansoprazole (PREVACID) 30 mg capsule Take 30 mg by mouth once daily. AFLURIA QUAD [id number], PF, 60 mcg/0.5 mL syrg FLUVIRIN [id number] 45 mcg (15 mcg x 3)/0.5 mL susp 1 Units by IM/SQ route every year. ZOSTAVAX, PF, 19,400 unit/0.65 mL injection Inject 0.65 mL subcutaneously every year. REVIEW OF SYSTEMS PAIN ASSESSMENT: Negative for pain, history of chronic pain, or current treatment for a chronic pain condition. GENERAL: No weight loss, malaise or fevers NECK: Negative for lumps, goiter, pain and significant neck swelling RESPIRATORY: Negative for cough, hemoptysis, wheezing, COPD, dyspnea or shortness of breath CARDIOVASCULAR: See HPI GI: No nausea, vomiting, or diarrhea MUSCULOSKELETAL: back pain SKIN: Negative for lesions, rash, and itching PSYCH: sleep fragmented HEMATOLOGY/LYMPHOLOGY: Negative for prolonged bleeding, bruising easily or swollen nodes ENDOCRINE: Negative for cold or heat intolerance, polyuria, polydipsia and goiter NEURO: No history of headaches, syncope, paralysis, seizures or tremors BP 120/72 Pulse 59 Ht 6' 1ANDquot; (1.85m) Wt 151 lb 9.6 oz (68.8kg) SpO2 99% BMI 20.01 kg/(m2). PHYSICAL EXAMINATION: General appearance: Well appearing, alert, in no acute distress, well-hydrated, well nourished. Neck: Negative findings: no jugular venous distention Lungs: Lungs clear to auscultation. No wheezing, rhonchi, rales Heart: RRR without murmur, gallop, or rubs. No ectopy Abdomen: Normal abdominal exam, Abdomen soft, non-tender. Bowel sounds normal. No masses, organomegaly Extremities: No deformities, edema, skin discoloration, clubbing or cyanosis. Good capillary refill. Neuro: Oriented X 3 CARDIOVASCULAR MEDICINE TESTING: Electrocardiogram: Sinus bradycardia with first-degree AV block heart rate 58 bpm, PA interval 250 ms, she was duration 88 ms, QTC 465 ms. I have personally reviewed the Electrocardiogram. IMPRESSION: Mr. Mcnally is a 62 year old male patient of Dr. Cavanaugh with history of persistent atrial fibrillation status post pulmonary vein antrum isolation ablation ?2. He remains in sinus rhythm on Tikosyn 500 ?g every 12 hours as well as Cardizem CD for rate control. He is on Coumadin for chads vascular of 2 and he is followed by his procurement clerk Dr. Phillip. He's had blood work which is been drawn by his PCP we'll obtain those results. He will follow-up with Dr. Cavanaugh in 6 months. PLAN AND RECOMMENDATIONS: (I47.1) Paroxysmal supraventricular tachycardia (HCC) (primary encounter diagnosis) Comment: stable, see above Plan: EKG WITH INTERPRETATION (I48.1) Persistent atrial fibrillation (HCC) Comment: stable, see above Plan: EKG WITH INTERPRETATION (I10) Essential hypertension Comment: BP is WNL, he follows with his PCP (I48.4) Atypical atrial flutter (HCC) Comment: stable, see above Vlad Russo, MSN, HIV NURSE.POOJA Russo, MSN, HIV NURSE.POOJA 11/21/2017 2:27 PM Signed Atrial Fibrillation What is atrial fibrillation? Atrial fibrillation (also called A-fib) is a fast or irregular heartbeat that starts in the upper chambers of the heart. The abnormal heartbeat affects the ability of the heart to pump blood to the rest of the body. What is the cause? An electrical signal in your heart starts each heartbeat, causing the heart muscle to squeeze (contract). Normally, this signal starts in the upper right chamber of the heart (the right atrium) at a place called the sinus node. The signal then follows normal pathways to the upper left atrium and to the lower chambers of the heart (the ventricles). When you have atrial fibrillation, electrical signals don?t start in the normal place in the right atrium and don?t travel normally. This can cause the upper chambers of the heart (atria) to beat very fast and not in a normal pattern. Common causes of heart rhythm problems are conditions that damage the heart, like coronary artery disease, heart attack, or heart failure. Problems with the heart valves are another common cause. The heart has 4 valves that open and close with each heartbeat to help blood flow in the right direction through the heart. Other causes of atrial fibrillation include: -Health problems, such as a stroke, lung disease, diabetes, overactive thyroid gland, or high blood pressure -Abuse of alcohol or drugs, such as cocaine Sometimes no cause can be found. What are the symptoms? Some people don?t have any symptoms. When atrial fibrillation does cause symptoms, the most common ones are: -Feeling like your heart is beating too fast or too hard or skipping beats or fluttering -Feeling tired or weak all the time Symptoms that are more serious include: -Chest pain -Trouble breathing -Lightheadedness or dizziness -Confusion How is it diagnosed? Your healthcare provider will ask about your symptoms and medical history and examine you. Tests may include: -An ECG (also called an EKG), which measures and records your heartbeat. You may have an ECG while you are resting or while you exercise on a treadmill. You may also be asked to wear a small portable ECG monitor for a few days or sometimes a couple weeks. -Blood tests -An echocardiogram, which uses sound waves (ultrasound) to show the structures of the heart, like the valves How is it treated? The goal of treatment is to help the heart keep a normal rhythm. Your treatment depends on the cause of the atrial fibrillation, how often you have symptoms, and the severity of your symptoms. If you have no symptoms, or your symptoms are fairly mild, you may not need treatment. For some people atrial fibrillation lasts just a short time and the heart goes back to a normal rhythm on its own. If you keep having spells of atrial fibrillation, treatment may help keep you from having so many spells. If a health problem like a leaky heart valve is causing the atrial fibrillation, treating the health problem may also treat the fast or irregular heartbeat. Other possible treatments are: -Medicine: Your provider may prescribe medicine to slow or restore a normal heart rate and rhythm. You may also need medicine to prevent blood clots because when the heart beats irregularly, some of the blood can stay in the upper chambers too long. This makes it easier for blood clots to form, increasing your risk of having a stroke or heart attack. -Electrical cardioversion: First, you will be given medicine called anesthesia to keep you from feeling pain during the procedure. Then your chest will be given an electrical shock. The electrical shock should make your heart start beating normally again. You may need medicine to keep your heart rhythm normal after this procedure. -Ablation: Ablation is a procedure that uses a small tube called a catheter to deliver energy to the inside of the heart. The energy (usually radio waves) scars small areas of heart tissue. The scars block abnormal electrical pathways and help you have a normal heart rhythm. With some types of ablation treatment, you will also need a pacemaker. A pacemaker is an electronic device put under the skin of your chest to help control the heartbeat. How can I take care of myself? -Take your medicines as prescribed. -Keep your appointments for follow-up blood tests. -Make sure your healthcare provider knows about changes in your diet or medical condition. Your provider also needs to know about all prescription and nonprescription medicines, herbs, or supplements that you are taking. Some medicines may interact with your heart medicine or increase your risk for atrial fibrillation. -If you want to drink alcohol, ask your provider how much is safe for you to drink. -Follow your healthcare provider's instructions. Ask your provider: ?How and when you will hear your test results ?How long it will take to recover ?What activities you should avoid and when you can return to your normal activities ?How to take care of yourself at home ?What symptoms or problems you should watch for and what to do if you have them -Make sure you know when you should come back for a checkup. How can I help prevent atrial fibrillation? The best prevention is to have a heart-healthy lifestyle. -Keep a healthy weight. -Eat a healthy diet that is low in sodium and saturated and trans fat. -Stay fit with the right kind of exercise for you. -Decrease stress. -Don?t smoke. -Limit your use of alcohol. If you have heart disease or high blood pressure, follow your healthcare provider's instructions for treatment. Developed by [employer]. Published by [employer]. Copyright ?2013 [employer] and/or one of its subsidiaries. All rights reserved. Referring Provider: DWAYNE CAVANAUGH [[id number]] Allergies As of Date: 11/21/2017 Noted Allergy Reaction INSECT EXTRACTS 08/25/2015 7 - Swelling MED-HIST 08/25/2015 7 - Swelling Comments: SECONOL SUCCINYLCHOLINE 12/05/2016 7 - Swelling Date Reviewed: 11/21/2017 Reviewed by: Nevin ([facility]) Karan - Fully Assessed Reason for Visit: F/U 6 Month [444] Primary Visit Diagnosis:Paroxysmal supraventricular tachycardia (HCC) [I47.1] Other Visit Diagnoses:Persistent atrial fibrillation (HCC) [I48.1] Essential hypertension [I10] Atypical atrial flutter (HCC) [I48.4] Order(s):EKG WITH INTERPRETATION [[id number]] Order #: [id number]: 1 dofetilide (TIKOSYN) 500 mcg capsuleTake 1 capsule by mouth twice daily.Disp: 180 capsuleRfl: 3 Prescriptions as of 11/21/2017 Sig: DOFETILIDE 500 MCG CAPSULE Take 1 capsule by mouth twice* MECLIZINE 25 MG TABLET Take 25 mg by mouth as needed* KLOR-CON M10 MEQ TABLET,EXTEN* Take 10 mEq by mouth once cele* DILTIAZEM SR 120 MG 24 HR CAP Take 120 mg by mouth twice da* EPIPEN 2-HYACINTH 0.3 MG/0.3 ML IN* Inject 0.3 mg subcutaneously * WARFARIN 4 MG TABLET As directed ALLOPURINOL 100 MG TABLET Take 100 mg by mouth twice da* FUROSEMIDE 40 MG TABLET Take 40 mg by mouth once tha* POTASSIUM CHLORIDE ER 10 MEQ * Take 10 mEq by mouth once cele* WARFARIN 5 MG TABLET As directed OMEGA-3 FATTY ACIDS-FISH OIL * Take 1 tablet by mouth once d* LANSOPRAZOLE 30 MG CAPSULE,DE* Take 30 mg by mouth once tha* Medication notes this encounter AFLURIA QUAD [id number] (PF) 60 MCG/0.5 ML INTRAMUSCULAR SYRINGE >> Vero Joseph CMA 11/21/2017 1:58 PM >> JENNIFER FOX VERO [facility] Nov 21, 2017 1:58 PM completed FLUVIRIN [id number] 45 MCG (15 MCG X 3)/0.5 ML INTRAMUSCULAR SUSPENSION >> Vero Joseph CMA 11/21/2017 1:58 PM >> JENNIFER FOX VERO [facility] Nov 21, 2017 1:58 PM completed ZOSTAVAX (PF) 19,400 UNIT/0.65 ML SUBCUTANEOUS SUSPENSION >> Vero Joseph CMA 11/21/2017 1:59 PM >> JENNIFER FOX VERO [facility] Nov 21, 2017 1:59 PM completed Problem List As Of Date 11/21/2017 Noted Resolved Atrial fibrillation (HCC) [I48.91] More... Atrial flutter (HCC) [I48.92] Palpitations [R00.2] Paroxysmal supraventricular tachycardia (HCC) [* Tachycardia [R00.0] More... On mcc drug therapy [Z79.899] More... 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 Essential hypertension [I10] Persistent atrial fibrillation (HCC) [I48.1] More... Other instructions from your clinician: Atrial Fibrillation What is atrial fibrillation? Atrial fibrillation (also called A-fib) is a fast or irregular heartbeat that starts in the upper chambers of the heart. The abnormal heartbeat affects the ability of the heart to pump blood to the rest of the body. What is the cause? An electrical signal in your heart starts each heartbeat, causing the heart muscle to squeeze (contract). Normally, this signal starts in the upper right chamber of the heart (the right atrium) at a place called the sinus node. The signal then follows normal pathways to the upper left atrium and to the lower chambers of the heart (the ventricles). When you have atrial fibrillation, electrical signals don?t start in the normal place in the right atrium and don?t travel normally. This can cause the upper chambers of the heart (atria) to beat very fast and not in a normal pattern. Common causes of heart rhythm problems are conditions that damage the heart, like coronary artery disease, heart attack, or heart failure. Problems with the heart valves are another common cause. The heart has 4 valves that open and close with each heartbeat to help blood flow in the right direction through the heart. Other causes of atrial fibrillation include: -Health problems, such as a stroke, lung disease, diabetes, overactive thyroid gland, or high blood pressure -Abuse of alcohol or drugs, such as cocaine Sometimes no cause can be found. What are the symptoms? Some people don?t have any symptoms. When atrial fibrillation does cause symptoms, the most common ones are: -Feeling like your heart is beating too fast or too hard or skipping beats or fluttering -Feeling tired or weak all the time Symptoms that are more serious include: -Chest pain -Trouble breathing -Lightheadedness or dizziness -Confusion How is it diagnosed? Your healthcare provider will ask about your symptoms and medical history and examine you. Tests may include: -An ECG (also called an EKG), which measures and records your heartbeat. You may have an ECG while you are resting or while you exercise on a treadmill. You may also be asked to wear a small portable ECG monitor for a few days or sometimes a couple weeks. -Blood tests -An echocardiogram, which uses sound waves (ultrasound) to show the structures of the heart, like the valves How is it treated? The goal of treatment is to help the heart keep a normal rhythm. Your treatment depends on the cause of the atrial fibrillation, how often you have symptoms, and the severity of your symptoms. If you have no symptoms, or your symptoms are fairly mild, you may not need treatment. For some people atrial fibrillation lasts just a short time and the heart goes back to a normal rhythm on its own. If you keep having spells of atrial fibrillation, treatment may help keep you from having so many spells. If a health problem like a leaky heart valve is causing the atrial fibrillation, treating the health problem may also treat the fast or irregular heartbeat. Other possible treatments are: -Medicine: Your provider may prescribe medicine to slow or restore a normal heart rate and rhythm. You may also need medicine to prevent blood clots because when the heart beats irregularly, some of the blood can stay in the upper chambers too long. This makes it easier for blood clots to form, increasing your risk of having a stroke or heart attack. -Electrical cardioversion: First, you will be given medicine called anesthesia to keep you from feeling pain during the procedure. Then your chest will be given an electrical shock. The electrical shock should make your heart start beating normally again. You may need medicine to keep your heart rhythm normal after this procedure. -Ablation: Ablation is a procedure that uses a small tube called a catheter to deliver energy to the inside of the heart. The energy (usually radio waves) scars small areas of heart tissue. The scars block abnormal electrical pathways and help you have a normal heart rhythm. With some types of ablation treatment, you will also need a pacemaker. A pacemaker is an electronic device put under the skin of your chest to help control the heartbeat. How can I take care of myself? -Take your medicines as prescribed. -Keep your appointments for follow-up blood tests. -Make sure your healthcare provider knows about changes in your diet or medical condition. Your provider also needs to know about all prescription and nonprescription medicines, herbs, or supplements that you are taking. Some medicines may interact with your heart medicine or increase your risk for atrial fibrillation. -If you want to drink alcohol, ask your provider how much is safe for you to drink. -Follow your healthcare provider's instructions. Ask your provider: ?How and when you will hear your test results ?How long it will take to recover ?What activities you should avoid and when you can return to your normal activities ?How to take care of yourself at home ?What symptoms or problems you should watch for and what to do if you have them -Make sure you know when you should come back for a checkup. How can I help prevent atrial fibrillation? The best prevention is to have a heart-healthy lifestyle. -Keep a healthy weight. -Eat a healthy diet that is low in sodium and saturated and trans fat. -Stay fit with the right kind of exercise for you. -Decrease stress. -Don?t smoke. -Limit your use of alcohol. If you have heart disease or high blood pressure, follow your healthcare provider's instructions for treatment. Developed by [employer]. Published by [employer]. Copyright ?2014 [employer] and/or one of its subsidiaries. All rights reserved. Visit Notes: >> Vero Joseph SunNov 21, 2017 1:59 PM Status: Signed Mr. Mcnally is here for a 6 month follow up. No cardiac complaints today. Vero Joseph CMA Prescriptions ordered this encounter Disp Refills Start End DOFETILIDE 500 MCG CAPSULE 180 * 3 11/21/2017 Route: ORAL Sig: Take 1 capsule by mouth twice daily. Medications Discontinued During This Encounter ZOSTAVAX, PF, 19,400 unit/0.65 mL in* 03/27/2016 11/21/2017 Class: Historical Med Route: SUBCUTANEOUS Sig: Inject 0.65 mL subcutaneously every year. Disc: Course of therapy completed FLUVIRIN 0357-0044 45 mcg (15 mcg x * 03/27/2016 11/21/2017 Class: Historical Med Route: IM/SQ Si Units by IM/SQ route every year. Disc: Discontinued by another Health Care Provider AFLURIA QUAD [id number], PF, 60 mcg/0* 04/24/2017 11/21/2017 Class: Historical Med Sig: Disc: Discontinued by another Health Care Provider dofetilide (TIKOSYN) 500 mcg capsule 180 * 3 11/12/2017 11/21/2017 Sig: TAKE 1 CAPSULE BY MOUTH TWICE DAILY Disc: Reason for discontinue is not on file. Disposition: Return in about 6 months (around 05/23/2018) for Dr. Cavanaugh. Follow-up and Disposition History Recorded Letter Text Encounter Status:Closed by KARAN, MSN, CASE WORKER, VLAD Agosto on 11/21/17 PROTHROMBIN TIME W/INR Collected: 11/14/2017 Status: F Source: NICHOL 6:08 AM [facility] REPOSITORY TYPE CODE TESTS RESULT OUT OF REFERENCE UNITS RANGE LAB L300.4150 11.7-14.9 SECONDS High PROTIME 35.0 LAB L300.4200 High alert INR 3.5 Result Comment: CRITICAL VALUE VERIFIED. CALLED TO [facility] AT [facility] 11/14/17 0851 Jessica Claudio. RESULTS READ BACK BY SAME . Performed By: #### L300.3900 #### [facility] [address] [place], [address] OBSOLETE Observed: 11/10/2017 Status: COMPLETED Source: [facility] 12:00 AM [facility] REPOSITORY Refill (AGCARDPHRA) ENRIQUE MCNALLY ([id number]) 1955 M Date Time Provider Department 11/10/17 NEVIN RUSSO (CASE WORKER) AGCARDARTI During your visit today, we recorded the following information about you: Yareli Lau LPN 11/12/2017 8:41 AM Signed Patient's pharmacy requesting new refill. Pending Prescriptions Disp Refills DOFETILIDE 500 MCG CAPSULE 180 capsule Sig: TAKE 1 CAPSULE BY MOUTH TWICE DAILY JAS: Yes He is to see Nevin Russo NP on 11-21-2017. He will need a CMP. Yareli Lau LPN Allergies As of Date: 11/10/2017 Noted Allergy Reaction INSECT EXTRACTS 08/25/2015 7 - Swelling MED-HIST 08/25/2015 7 - Swelling Comments: SECONOL SUCCINYLCHOLINE 12/05/2016 7 - Swelling Date Reviewed: 05/16/2017 Reviewed by: Dwayne Cavanaugh - Fully Assessed Reason for Visit: Refill Request [94] Order(s):dofetilide (TIKOSYN) 500 mcg capsuleTAKE 1 CAPSULE BY MOUTH TWICE DAILYDisp: 180 capsuleRfl: 3 Prescriptions as of 11/10/2017 Sig: DOFETILIDE 500 MCG CAPSULE TAKE 1 CAPSULE BY MOUTH TWICE* AFLURIA QUAD [id number] (PF) 6* MECLIZINE 25 MG TABLET KLOR-CON M10 MEQ TABLET,EXTEN* Take 10 mEq by mouth once cele* DILTIAZEM SR 120 MG 24 HR CAP Take 120 mg by mouth twice da* EPIPEN 2-HYACINTH 0.3 MG/0.3 ML IN* Inject 0.3 mg subcutaneously * FLUVIRIN [id number] 45 MCG (15* 1 Units by IM/SQ route every * WARFARIN 4 MG TABLET As directed ZOSTAVAX (PF) 19,400 UNIT/0.6* Inject 0.65 mL subcutaneously* ALLOPURINOL 100 MG TABLET Take 100 mg by mouth twice da* FUROSEMIDE 40 MG TABLET Take 40 mg by mouth once tha* POTASSIUM CHLORIDE ER 10 MEQ * Take 10 mEq by mouth once cele* WARFARIN 5 MG TABLET As directed OMEGA-3 FATTY ACIDS-FISH OIL * Take 1 tablet by mouth once d* LANSOPRAZOLE 30 MG CAPSULE,DE* Take 30 mg by mouth once tha* Problem List As Of Date 11/10/2017 Noted Resolved Atrial fibrillation (HCC) [I48.91] More... Atrial flutter (HCC) [I48.92] Palpitations [R00.2] Paroxysmal supraventricular tachycardia (HCC) [* Tachycardia [R00.0] More... On terminal superintendent drug therapy [Z79.899] More... 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 [facility] current use of antiarrhythmic drug [Z* More... Essential hypertension [I10] Persistent atrial fibrillation (HCC) [I48.1] More... Prescriptions ordered this encounter Disp Refills Start End DOFETILIDE 500 MCG CAPSULE 180 * 3 11/12/2017 Sig: TAKE 1 CAPSULE BY MOUTH TWICE DAILY Medications Discontinued During This Encounter TIKOSYN 500 mcg capsule 180 * 3 11/06/2016 11/12/2017 Route: ORAL Sig: Take 1 capsule by mouth twice daily. Disc: Reason for discontinue is not on file. Encounter Status:Closed by DWAYNE CAVANAUGH MD on 11/12/17 PROTHROMBIN TIME W/INR Collected: 11/01/2017 Status: F Source: NICHOL 6:10 AM [facility] REPOSITORY Order Comment: Comments: Standing Order Comments: Standing Order TYPE CODE TESTS RESULT OUT OF REFERENCE UNITS RANGE LAB L300.4150 11.7-14.9 SECONDS High PROTIME 35.9 LAB L300.4200 High alert INR 3.6 Result Comment: CRITICAL VALUE VERIFIED. CALLED TO [facility] NURSE VOICEMAIL. 11/01/17 0809 Jessica Claudio. RESULTS FAXED TO OFFICE Performed By: #### L300.3900 #### [facility] [address] [place], [address] INITAL EVALUATION (1) Observed: 10/30/2017 Status: F Source: [facility] - PT 8:59 AM [facility] REPOSITORY [facility] [address] [place] [address] Fax REHABILITATION SERVICES INITIAL EVALUATION MR#: [id number] Acct: [id number] Name: ENRIQUE MCNALLY III Rep #: [id number] : 1955 62 From: Gagandeep Adams DPT, OCS, CSCS Referring Dr.: Eva Storey MD Status: REG RCR Insurance: [facility] SELF PAY INSURANCE Patient's Visit Information ENRIQUE MCNALLY III is a 62 year old M referred to Physical Therapy by Eva SERRA with a diagnosis of Back pain/leg pain. Date of Evaluation: 10/29/17 Physical Therapist: Gagandeep Adams DPT, OC - Visit Plan Frequency: 2-3x /Week Duration: 4-6 Weeks Plan: Patient to take pain meds as directed and instructed in postural awareness today. He wants to start therapy in two weeks for : teach quad, hip flexor, HS stretches...hip and core strength and postureal ex/bnody mechanics weekly via HEP or 3x/week in PT depending on condition. Recommended patient f/u with family doctor regarding possible medical reasons for weakness in bones with multiple compression fractures as he is unaware of any. - Subjective Subjective: 4 weeks ago was lifting a TV from a chair to the floor and felt a pop in his back. Unbelievable pain for two weeks. Hard to move or breathe. Went to Dr. Daugherty 2 weeks later and had diagnostics. Sent to [facility] and he wanted spinal injections which patient does not want to have. Currently doing better. Stopped pain meds(has hydrocodone) for a day and it got worse then again. Has R LBP and R leg into hip, feels likes pins and needles most of time unless on the pain meds. Horton tart them again tonight. Sleep is 5 hours out of normal 8 b/c hard to get to sleep. Basic aDLs hurt initially but can do now. Is retired disability. L ZARINA. Avoids lifting and careful with bending at home. Has to be careful about every little thing. Can't carry more than 3-5 # right now. - Pain R LBP Pain Intensity (Out of 10): 8 Pain Intensity Range: 0, 9 Comment: good on pain meds. - Objective Walks hunched over and transitions cautiously. Extra time needed for table transfers as he is painful appearing to shear force. Walk is I. Straightens up with VC but it hurts. LB AROM: ext max limtied and barely to neutral, flexion mod limited, SB max limited B, all are mildly painful today and cautious. HS max tight at -50 90/90 test, ITB mod tight, hip flexors max tight to neutral baarely with hip ext and quads min tight. reflexes patella and achilles 2/3. sensation LE WNL to gross light touch. strength LE knees and ankles 4+/5. hips abd and ext 3, very atrophied in B glut tissue. BHip flexion 3+ due to pain. Patient is friendly and aware. Wishes to hold on therapyuntil he gets back on pain meds and can move easier/heals a little more. - Goals Goal 1:: Patient have full postural positioning without pain without VC. Goal Time Frame: 4-6 Weeks Goal 2:: patient able to trasnfer in bed and roll without discomfort. Goal Time Frame: 4-6 Weeks Goal 3:: pt I approp ex to minimize futre problems. Goal Time Frame: 4-6 Weeks Goal 4:: Pat report 90% improved and activity with pain no greater than transient 1/10 - Rehabilitation Potential Physical Therapy Diagnosis: Back pain, compression fractures. Rehabilitation Potential: Fair - Anticipated Interventions Patient/Client Instruction: Educate patient on: Condition, Plan of Care, Risk Factors For the Purpose of:: To decrease pain, To increase ROM, To reduce risk of recurrence Therapeutic Exercise to Include: Strength training, Postural training, Flexibilty training, Active ROM For the Purpose of:: To decrease pain, To increase ROM, To improve nutrient delivery to tissue, To improve ability of physical actions for home/community/work/leisure, To improve gait and locomotor functions, To reduce risk of recurrence Thermo therapy (hot pack): Yes For the Purpose of:: To decrease pain Thank you for the opportunity to evaluate your patient. For Medicare and Medicare HMO plans, please review the plan of care and approve it. It will need to be FAXED BACK to us at [phone] for Medicare purposes. Please let me know if there are questions or concerns regarding this plan of care. Physician Signature: Date: <Electronically signed by Gagandeep PARIST, OCS, CSCS> 10/30/17 0859 CC: Eva Storey MD; Sarah Daugherty EBG Signed For Medicare only, by signing this I certify the plan of care. Physicians Signature Date PROTHROMBIN TIME W/INR Collected: 10/18/2017 Status: F Source: NICHOL 6:14 AM [facility] REPOSITORY TYPE CODE TESTS RESULT OUT OF RANGE REFERENCE UNITS LAB L300.4150 11.7-14.9 SECONDS High PROTIME 34.5 LAB L300.4200 Normal INR 3.4 Performed By: #### L300.3900 #### [facility] [address] [place], [place], [address] CREATININE FINGERSTICK Collected: 10/11/2017 Status: F Source: NICHOL 9:50 AM [facility] REPOSITORY TYPE CODE TESTS RESULT OUT OF RANGE REFERENCE UNITS LAB L9100.0210 0.70-1.30 mg/dL Normal CREATININE WB 1.0 LAB L9100.0220 >60 mL/min EGFR WB Normal > 60.0000 Performed By: #### L9100.0200 #### [facility] Point of Care [address] [place] [address] SPINE THORACIC W/WO Observed: 10/11/2017 Status: F Source: [facility] CONTRAST 9:43 AM [facility] REPOSITORY [facility] [address] [place] [address] Spine Thoracic W/WO Contrast MR#: [id number] Acct: [id number] Name: ENRIQUE MCNALLY III Rep #: [id number] : 1955 M 62 From: Steve Guan MD PCP: Sarah Daugherty Status: REG CLI Study: Spine Thoracic W/WO Contrast Date of Exam: 10/11/17 Exam# [id number] Ordering Dr: Sarah Daugherty MD STUDY: MRI THORACIC SPINE WITH AND WITHOUT CONTRAST REASON FOR EXAM: Male, 62 years old. Low back pain. Patient has compression fractures. TECHNIQUE: 7.5 ml of Gadavist was administered intravenously for the contrast portion of the examination. Sagittal and axial T1 and T2 MR images of the thoracic spine are submitted for interpretation. COMPARISON: None. FINDINGS: There is an increased kyphosis of the thoracic spine. There is no substantial scoliosis. T1-2, T2-3, T3-4, T4-5, T5-6, T6-7, T7-8, T8-9, T9-10, T10- 11, T11-12: There is moderate compression of the T9 vertebral body. Maximum compression is about 70% of expected height of this vertebral body. There is also central compression of the T10 vertebral body with large central Schmorl's nodes involving the superior and inferior endplates with maximum compression of this vertebral body about 80% with a H shaped appearance of the vertebral body. There is also mild compression of the T12 vertebral body with maximum compression of 70%. There is also mild compression fracture T5. There is some abnormal signal within the T9 and T10 vertebral body suggesting there may be some acuity to these compression fractures. The rest of the compression fractures appear old. Remaining thoracic vertebral bodies have normal height and alignment. Neural foramina appear to be patent. There is no significant central acquired canal stenosis. Normal visualized thoracic cord. The conus medullaris is not imaged in its entirety on this study. There appears to be a left-sided renal cyst. This is partially imaged on the current study. There is bilateral basilar dependent atelectasis. There is some enhancement of the T9 and T10 vertebral bodies. This could be result of acute Modic changes. Malignancy is not excluded. There is no evidence for meningeal enhancement. MRI/Spine Thoracic W/WO Contrast IMPRESSION: 1. Apparent acute compression of the T10 vertebral body that is centrally located and appears to be associated with Schmorl's nodes. The configuration of this vertebral body suggests the possibility of bone infarcts. 2. There may be some acuity to compression of T9 but there is only a small area of abnormal signal in this vertebral body to suggest an acute process. Electronically Signed: Steve Guan MD at 13:25 EDT , Service support , CC: Sarah Daugherty Photocopying Equipment Mechanic: Signed SPINE LUMBAR W/WO Observed: 10/11/2017 Status: F Source: [facility] CONTRAST 9:43 AM [facility] REPOSITORY [facility] [address] [place] [address] Spine Lumbar W/WO Contrast MR#: [id number] Acct: [id number] Name: ENRIQUE MCNALLY III Rep #: [id number] : 1955 M 62 From: Steve Guna MD PCP: Sarah Daugherty Status: REG CLI Study: Spine Lumbar W/WO Contrast Date of Exam: 10/11/17 Exam# [id number] Ordering Dr: Sarah Daugherty MD STUDY: MRI LUMBAR SPINE WITH AND WITHOUT CONTRAST REASON FOR EXAM: Male, 62 years old. Low back pain with radicular symptoms to the right hip. TECHNIQUE: Standardized fat and water weighted pulse sequences were obtained in the sagittal and axial planes. 7.5 ml of Gadavist contrast material was administered for the contrast portion of the examination. COMPARISON: Radiographs of the lumbar spine dated October 01, 2017. FINDINGS: T12-L1: There is mild wedge-shaped deformity of the T12 vertebral body. There is a large Schmorl's node at the superior endplate of T12 which contributes to the compression. Maximum compression is probably 50% of expected this vertebral body. This appears to be old. There is a mild disc bulge. Neural foramina are patent. There is no significant central acquired canal stenosis. Normal lumbar lordosis. There is no substantial scoliosis. Normal conus medullaris that terminates at the L1-2 level. L1-2: There is moderate compression of L2 with abnormal signal at the superior endplate. There is associated abnormal signal at the superior endplates suggesting this is an acute fracture. There is increased height of the disc. Neural foramina are patent. There is a mild disc bulge. There is mild degenerative arthropathy of facet joints. L2-3: There is mild annular disk bulge and osteophyte complex. There is mild degenerative arthropathy of the facet joints. Bilateral neuroforamina are narrowed without MR evidence for nerve impingement. There is no significant central canal stenosis. L3-4: There is narrowing of the disc. There is a Schmorl's node of superior endplate of L4. There is abnormal signal the endplates suggesting acute Modic changes. Neural foramina are bilaterally narrowed with potential impingement of the right L3 nerve root at the neural foramen. L4-5: There is mild compression fracture of the superimposed vertebral body with a larger Schmorl's node of the central aspect of the superior endplate contributing to the compression. There is moderate annular disc bulge and osteophyte complex. There is mild degenerative arthropathy of facet joints. There is mild central acquired canal stenosis. Neural foramina are narrowed without definite evidence for nerve impingement. L5-S1: There is narrowing of the disc. There is narrowing of disc bulge with broad central disc protrusion. There is moderate degenerative arthropathy of facet joints. There is mild central acquired canal stenosis. Neural foramina are bilaterally narrowed with potential impingement of the bilateral nerve roots at the neural foramina. Normal visualized sacral ala. Normal visualized paraspinous soft tissue structures. There may be small renal cysts. There is abnormal enhancement of superior endplate of L2 as well as the endplates of L3 and L4, and the superior endplate of L4 and endplates at L5-S1. This could be the result of acute Modic changes. Sequela of osteomyelitis is thought less likely. MRI/Spine Lumbar W/WO Contrast IMPRESSION: 1. Multiple compression fractures of the lumbar vertebral bodies, apparently acute at L2 and L4. 2. Abnormal enhancement suggests possible sequela of acute Modic changes. Sequela of discitis is thought less likely. Electronically Signed: Steve Guan MD at 13:32 EDT , Service support , CC: Sarah Daugherty Photocopying Equipment Mechanic: Signed PROTHROMBIN TIME W/INR Collected: 10/11/2017 Status: F Source: NICHOL 9:03 AM [facility] REPOSITORY Order Comment: Comments: Standing Order Comments: Standing Order TYPE CODE TESTS RESULT OUT OF RANGE REFERENCE UNITS LAB L300.4150 11.7-14.9 SECONDS High PROTIME 34.6 LAB L300.4200 Normal INR 3.4 Performed By: #### L300.3900 #### [facility] [address] [place], [address] PROTHROMBIN TIME W/INR Collected: 10/01/2017 Status: F Source: [place] 4:12 PM [facility] REPOSITORY TYPE CODE TESTS RESULT OUT OF RANGE REFERENCE UNITS LAB L300.4150 11.7-14.9 SECONDS High PROTIME 32.5 LAB L300.4200 Normal INR 3.1 Performed By: #### L300.3900 #### [facility] [address] [place], [address] L/S SPINE MIN 4 Observed: 10/01/2017 Status: F Source: [facility] VIEWS 4:02 PM [facility] [facility] REPOSITORY [facility] Imaging Services [address] [place] [address] L/S Spine Min 4 Views MR#: [id number] Acct: [id number] Name: ENRIQUE MCNALLY III Rep #: [id number] : 1955 M 62 From: Haja Sandoval MD PCP: Sarah Daugherty Status: REG CLI Study: L/S Spine Min 4 Views Date of Exam: 10/01/17 Exam# [id number] Ordering Dr: Sarah Daugherty MD STUDY: X-RAY - LUMBAR SPINE REASON FOR EXAM: Male, 62 years old. Pain after lifting TECHNIQUE: 5 view(s) of the lumbar spine were obtained. COMPARISON: CT September 01, 2008 FINDINGS: Mild levoconvex scoliosis. Diffuse spondylosis. Age-indeterminate compression deformities of T9, T12, L2, and L4. L4 Schmorl's node. Diffuse facet disease. Vascular calcifications. Left hip arthroplasty. RAD/L/S Spine Min 4 Views IMPRESSION: Age-indeterminate compression deformities of T9, T12, L2, and L4. Consider MRI correlation to further determine acuity if possible. Electronically Signed: Haja Sandoval MD at 7:53 EST Tel , Service support , CC: Sarah Daugherty Photocopying Equipment Mechanic: Signed PROTHROMBIN TIME W/INR Collected: 09/04/2017 Status: F Source: NICHOL 6:08 AM [facility] REPOSITORY TYPE CODE TESTS RESULT OUT OF RANGE REFERENCE UNITS LAB L300.4150 11.7-14.9 SECONDS High PROTIME 23.5 LAB L300.4200 Normal INR 2.2 Performed By: #### L300.3900 #### [facility] Laboratory [address] [place], [address] PROTHROMBIN TIME W/INR Collected: 07/26/2017 Status: F Source: CULPEPER 6:11 AM [facility] REPOSITORY TYPE CODE TESTS RESULT OUT OF RANGE REFERENCE UNITS LAB L300.4150 11.7-14.9 SECONDS High PROTIME 24.2 LAB L300.4200 Normal INR 2.3 Performed By: #### L300.3900 #### [facility] [address] [place], [address] ALLERGIES ALLERGIES DATE TYPE / NAME / CODE REACTION SEVERITY SOURCE CODE 02/18/2018 Drug secobarbital Unknown Unknown [place] Allergy/41 sodium/[id number](RXN Community [id number]([facility]) Repository 02/18/2018 Drug venom-honey Anaphylaxis Unknown [place] Allergy/41 bee/[id number](RXNORM Community [id number]([facility]) Repository 12/05/2016 DRUG SUCCINYLCHOLINE [place] [address] Other 9410106([facility]) Repository 08/25/2015 DRUG INSECT EXTRACTS [place] [address] Other 8561214([facility]) Repository 08/25/2015 DRUG/49498 MED-HIST SWELLING [place] 1003([facility] Other [facility]) [place] Repository NG/9962218 INSECT EXTRACTS [facility] 06([facility] Repository NG/9989302 MED-HIST [facility]) Repository NG/4197420 SUCCINYLCHOLINE [facility] 06([facility]) Repository ENCOUNTERS ENCOUNTERS ADMIT/DISCHARGE ACCOUNT NUMBER ADMITTING ENCOUNTER LOCATION SOURCE CLASS 07/15/2018 [id number] [facility] ding:NS Repository 07/11/2018 [id number] [facility] ding:LAB Repository 06/25/2018/06/28/[id number] ding:LAB Repository 05/21/2018/05/21/[id number] ding:LAB Repository 05/14/2018/05/29/[id number] ding:NS Repository 05/08/2018/05/08/20 [id number] Ambulatory [address] Other [place] Repository 05/08/2018/10/10/20 [id number] Ambulatory [address] MEDICAL Repository CENTERBuildi ng:AGCARDPHR A 04/30/2018 [id number] Ambulatory [place] [facility] ding:BFHLAB Repository 04/18/2018/04/18/20 [id number] Ambulatory [place]ol 18 [facility] ding:LAB Repository 04/09/2018 [id number] Ambulatory [place] [facility] ding:LAB Repository 04/02/2018/04/28/20 [id number] Ambulatory [place] 18 [facility] ding:NS Repository 03/28/2018/03/28/20 [id number] Ambulatory [place] 18 [facility] ding:LAB Repository 03/12/2018/03/29/20 [id number] Ambulatory Nichol [place] 18 [facility] ding:NS Repository 03/12/2018/03/12/20 [id number] Ambulatory [place] 18 [facility] ding:LAB Repository 02/18/2018/02/19/20 [id number] Ambulatory BMSBuilding: [place] 18 [facility] Repository 02/14/2018/02/15/20 [id number] Ambulatory [place] 18 [facility] ding:LAB Repository 02/11/2018 [id number] Ambulatory BMSBuilding: Nichol BMS.[facility] Repository 01/17/2018/01/18/20 [id number] Ambulatory [place] Nichol 18 [facility] ding:LAB Repository 01/16/2018 [id number] Ambulatory [facility] Other [place] Repository 01/16/2018/01/17/20 [id number] Ambulatory [address] MEDICAL Repository CENTERBuildi ng:AKXRCT 01/08/2018 [id number] Ambulatory [place] Nichol [facility] ding:BFHLAB Repository 12/27/2017/12/28/19 [id number] Ambulatory [place] 18 [facility] ding:LAB Repository 11/29/2017/11/30/19 [id number] Ambulatory [place] 18 [facility] ding:PT Repository 11/29/2017/11/30/19 [id number] Ambulatory [place] 18 [facility] ding:LAB Repository 11/21/2017/11/22/19 [id number] Ambulatory [place] [facility] Other [place] Repository 11/21/2017/11/22/19 [id number] Ambulatory [address] MEDICAL Repository CENTERBuildi ng:AGCARDPHR A 11/14/2017/11/15/19 [id number] Ambulatory [place] Nichol 18 [facility] ding:LAB Repository 10/18/2017/10/19/19 [id number] Ambulatory [place] 18 [facility] ding:LAB Repository 10/11/2017 [id number] [facility] 10/11/2017 [id number] [facility] 10/01/2017 [id number] Ambulatory [place] [facility] ding:MTRAD Repository 09/04/2017/09/04/19 [id number] Ambulatory [place] 18 [facility] ding:LAB Repository 07/26/2017/07/29/20 [id number] Ambulatory [place] 17 [facility] ding:LAB Repository PAYERS PAYERS ENCOUNTER GUARANTOR PAYER SUBSCRIBER SOURCE 07/15/2018 [facility] DALI [place] [id number] Insurance:CARESOURCEP IIIDOB: [facility] Number: [id number] Hospital 80[address]Rol: [phone]) [id number] Repository [phone] () Date:2018-03-11 [address]ATTN: [place] [address]QV: 07/15/2018 Secondary NOT GIVENUNK [place] Insurance:SELF PAY [facility] Number: Effective Repository Date:2018-05-30 07/11/2018 [facility] Primary ENRIQUEESCALANTE [place] [id number] Insurance:CARESOURCEP IIIDOB: [facility] Number: [id number] Hospital 13[address]Mmj: (330 [id number] Repository [phone] (HP) Date:2013-01-27[address]ATTN: [place] [address]VA: 07/11/2018 Secondary NOT GIVENUNK [place] Insurance:SELF PAY [facility] Number: Effective Repository Date:2018-07-01 06/25/2018 [facility] [id number] Insurance:CARESOURCEP IIIDOB: [facility] Number: [id number] Hospital 86341Pvn: [phone]) [id number] Repository [phone] (HP) Date:2013-01-27P [address]ATTN: [place] [address]OC: 06/25/2018 Secondary NOT GIVENUNK [place] Insurance:SELF PAY [facility] Number: Effective Repository Date:2018-05-30 05/21/2018 [facility] [id number] Insurance:CARESOURCEP IIIDOB: [facility] Number: [id number] Hospital 42260Phx: [phone]) [id number] Repository [phone] () Date:2013-01-27P [address]ATTN: [place] [address]BG: 05/21/2018 Secondary NOT GIVENUNK [place] Insurance:SELF PAY [facility] Number: Effective Repository Date:2018-05-01 05/14/2018 [facility] [id number] Insurance:CARESOURCEP IIIDOB: [facility] Number: [id number] Hospital [address]Mxo: (330 [id number] Repository [phone] (HP) Date:2018-03-11P [address]ATTN: [place] [address]JZ: 05/14/2018 Secondary NOT GIVENUNK [place] Insurance:SELF PAY [facility] Number: Effective Repository Date:2018-04-29 05/08/2018 ENRIQUE UGARTEOB: Primary ENRIQUE UGARTEOB: [facility] N Insurance:[facility] [id number] [facility] [address] MEDICAIDPolicy [address], Number: [place] [address]Ukd: [id number] Date: () 04/30/2018 ENRIQUE MCNALLY Primary ENRIQUEESCALANTE [place] [id number] Insurance:CARESOURCEP IIIDOB: [facility] Number: [id number] Hospital [address]Kvw: (330 [id number] Repository [phone] (HP) Date:2018-04-30P [address]ATTN: [place] [address]WE: 04/30/2018 Secondary NOT GIVENUNK [place] Insurance:SELF PAY [facility] Number: Effective Repository Date:2018-04-30 04/18/2018 [facility] [place] [id number] Insurance:CARESOURCEP IIIDOB: [facility] Number: [id number] Hospital 26[address]Ial: (330 [id number] Repository [phone] (HP) Date:2013-01-27 [address]ATTN: [place] [address]MF: 04/18/2018 Secondary NOT GIVENUNK [place]ol Insurance:SELF PAY [facility] Number: Effective Repository Date:2018-04-02 04/09/2018 ENRIQUE MCNALLY Primary ENRIQUEESCALANTE [place] [id number] Insurance:CARESOURCEP IIIDOB: [facility] Number: [id number] Hospital [address]Gvv: (330 [id number] Repository [phone] (HP) Date:2018-03-28 [address]ATTN: [place] [address]UZ: 04/09/2018 Secondary NOT GIVENUNK [place]ol Insurance:SELF PAY [facility] Number: Effective Repository Date:2018-04-02 04/02/2018 [facility] [id number] Insurance:CARESOURCEP IIIDOB: [facility] Number: [id number] Hospital [address]Kif: 330 [id number] Repository [phone] () Date:2018-03-11 [address]ATTN: [place] [address]YR: 04/02/2018 Secondary NOT GIVENUNK [place] Insurance:SELF PAY [facility] Number: Effective Repository Date:2018-03-30 03/28/2018 [facility] [id number] Insurance:CARESOURCEP IIIDOB: [facility] Number: [id number] Hospital [address]Fco: 330 [id number] Repository [phone] () Date:2018-03-28 [address]ATTN: [place] [address]EI: 03/28/2018 Secondary NOT GIVENUNK [place] Insurance:SELF PAY [facility] Number: Effective Repository Date:2018-03-28 03/12/2018 [facility] [id number] Insurance:CARESOURCEP IIIDOB: [facility] Number: [id number] Hospital 26[address]Vvf: 330 [id number] Repository [phone] () Date:2018-03-11 [address]ATTN: [place] [address]XQ: 03/12/2018 Secondary NOT GIVENUNK [place] Insurance:SELF PAY [facility] Number: Effective Repository Date:2018-03-11 03/12/2018 [facility] Nichol [id number] Insurance:CARESOURCEP IIIDOB: [facility] Number: [id number] Hospital [address]Hup: 330 [id number] Repository [phone] () Date:2013-01-27P [address]ATTN: [place] [address]XN: 03/12/2018 Secondary NOT GIVENUNK Nichol Insurance:SELF PAY [facility] Number: Effective Repository Date:2018-02-27 02/18/2018 [facility] [place] [id number] Insurance:CARESOURCEP IIIDOB: [facility] Number: [id number] Hospital 94690Wxu: [phone] [id number] Repository [phone] () Date:2017-07-18P [address]ATTN: [place] [address]LA: 02/18/2018 Secondary NOT GIVENUNK [place] Insurance:SELF PAY [facility] Number: Effective Repository Date:2018-02-18 02/14/2018 [facility] [place] [id number] Insurance:CARESOURCEP IIIDOB: [facility] Number: [id number] Hospital [address]62[address]Rux: (330 [id number] Repository [phone] () Date:2013-01-27P [address]ATTN: [place] [address]UL: 02/14/2018 Secondary NOT GIVENUNK [place] Insurance:SELF PAY [facility] Number: Effective Repository Date:2018-01-25 02/11/2018 [facility] Nichol [id number] Insurance:CARESOURCEP IIIDOB: [facility] Number: [id number] Hospital [address]Anr: ([phone]) [id number] Repository [phone] () Date:2018-02-11P [address]ATTN: [place] [address]UU: 02/11/2018 Secondary NOT GIVENUNK [place] Insurance:SELF PAY [facility] Number: Effective Repository Date:2018-02-11 01/17/2018 ENRIQUEESCALANTE Primary ENRIQUE MCNALLY [place] [id number] Insurance:CARESOURCEP IIIDOB: [facility] Number: [id number] Hospital [address]Pij: 330 [id number] Repository [phone] () Date:2013-01-27 [address]ATTN: [place] [address]TZ: 01/17/2018 Secondary NOT GIVENUNK [place] Insurance:SELF PAY [facility] Number: Effective Repository Date:2017-12-27 01/16/2018 ENRIQUE STEENDOB: Primary [facility]ITALENDOB: [facility] N Insurance:[facility] [id number] [facility] [address] MEDICAIDPolicy [address], [place]: [place] [address]Zvz: [id number] Date: () 01/08/2018 ENRIQUE DALI Primary ENRIQUEESCALANTE [place] [id number] Insurance:CARESOURCEP IIIDOB: [facility] Number: [id number] Hospital 40[address]Hzq: 330 [id number] Repository [phone] () Date:2018-01-08 [address]ATTN: [place] [address]ZM: 01/08/2018 Secondary NOT GIVENUNK [place] Insurance:SELF PAY [facility] Number: Effective Repository Date:2018-01-08 12/27/2017 ENRIQUE DALI Primary ENRIQUEESCALANTE [place] [id number] Insurance:CARESOURCEP IIIDOB: [facility] Number: [id number] Hospital [address]Ocu: (330 [id number] Repository [phone] () Date:2017-12-13P [address]ATTN: [place] [address]FM: 12/27/2017 Secondary NOT GIVENUNK [place] Insurance:SELF PAY [facility] Number: Effective Repository Date:2017-12-13 11/29/2017 [facility] Primary [facility] [id number] Insurance:CARESOURCEP IIIDOB: [facility] Number: [id number] Hospital [address]Cwe: ([phone]) [id number] Repository [phone] () Date:2013-01-27P [address]ATTN: [place] [address]OG: 11/29/2017 Secondary NOT GIVENUNK [place]ol Insurance:SELF PAY [facility] Number: Effective Repository Date:2017-10-22 11/29/2017 [facility] [id number] Insurance:CARESOURCEP IIIDOB: [facility] Number: [id number] Hospital [address]Kaf: (330 [id number] Repository [phone] () Date:2013-01-27P [address]ATTN: [place] [address]NU: 11/29/2017 Secondary NOT GIVENUNK [place] Insurance:SELF PAY [facility] Number: Effective Repository Date:2017-11-27 11/21/2017 ENRIQUE ANILENDOB: Primary ENRIQUE ANILENDOB: [facility] N Insurance:[facility] [id number] [address] [facility] Number: Repository [facility] [id number] [place] [address]Oqr: Date: () 11/14/2017 [facility] [place] [id number] Insurance:CARESOURCEP IIIDOB: [facility] Number: [id number] Hospital [address]Esy: (330) [id number] Repository [phone] () Date:2013-01-27P [address]ATTN: [place] [address]RJ: 11/14/2017 Secondary NOT GIVENUNK [place] Insurance:SELF PAY [facility] Number: Effective Repository Date:2017-10-29 10/18/2017 [facility] Nichol [id number] Insurance:CARESOURCEP IIIDOB: [facility] Number: [id number] Hospital [address]Nun: (330) [id number] Repository [phone] () Date:2013-01-27P [address]ATTN: [place] [address]FF: 10/18/2017 Secondary NOT GIVENUNK Nichol Insurance:SELF PAY [facility] Number: Effective Repository Date:2017-09-28 10/11/2017 [facility] [place] [id number] Insurance:CARESOURCEP IIIDOB: [facility] Number: [id number] Hospital [address]Kvb: (330) [id number] Repository [phone] () Date:2017-10-09P [address]ATTN: [place] [address]FL: 10/11/2017 Secondary NOT GIVENUNK Nich[place] Insurance:SELF PAY [facility] Number: Effective Repository Date:2017-10-09 10/11/2017 [facility] Nichol [id number] Insurance:CARESOURCEP IiiDOB: [facility] Number: [id number] Hospital 48[address]Icv: (330) [id number] Repository [phone] () Date:2017-10-09P [address]ATTN: [place] [address]BK: 10/11/2017 Secondary NOT GIVENUNK [place]ol Insurance:SELF PAY [facility] Number: Effective Repository Date:2017-10-09 10/01/2017 [facility] [id number] Insurance:CARESOURCEP IiiDOB: [facility] Number: [id number] Hospital [address]Mmm: 330 [id number] Repository [phone] () Date:2017-10-01 [address]ATTN: [place] [address]LB: 10/01/2017 Secondary NOT GIVENUNK [place] Insurance:SELF PAY [facility] Number: Effective Repository Date:2017-10-01 09/04/2017 [facility] [id number] Insurance:CARESOURCEP IiiDOB: [facility] Number: [id number] Hospital [address]Dcq: [phone] [id number] Repository [phone] () Date:2013-01-27P [address]ATTN: [place] [address]AM: 09/04/2017 Secondary NOT GIVENUNK [place] Insurance:SELF PAY [facility] Number: Effective Repository Date:2017-07-30 07/26/2017 [facility] [id number] Insurance:CARESOURCEP IiiDOB: [facility] Number: [id number] Hospital 17[address]Jzi: (330 [id number] Repository [phone] () Date:2013-01-27P [address]ATTN: [place] [address]LC: 07/26/2017 Secondary NOT GIVENUNK [place] Insurance:SELF PAY [facility] Number: Effective Repository Date:2017-07-01
== END 2018-06-28 12:19 | disposition home or self-care (01) ==
LOC: LAB 05:58
PROVIDERS: Family Provider Family Medicine; PCP Family Medicine; Referring Provider Internal Medicine Cardiovascular Disease; Visit Provider Internal Medicine Cardiovascular Disease
DX: I48.91 Unspecified atrial fibrillation (principal); I48.92 Unspecified atrial flutter; Z79.01 Long term (current) use of anticoagulants
CPT/HCPCS: 36415; 85610

== ENCOUNTER 2018-07-15 06:07 | Outpatient (RCR) | payer MEDICAID, SELFPAY ==
[2018-07-15 07:37] LABS: International Normalized Ratio 2.1; Prothrombin Time (Protime)PT. 23.6 SECONDS (11.7-14.9)
--- OUTSIDE RECORDS SUMMARY | 2018-08-25 08:07 | XMS RPT_ITS ---
[...] [address] + [place] [address] D Unavailable Unavailable Unavailable DALI, STEVE Unavailable [address] + [place] [address] D Unavailable Unavailable Unavailable DALI, STEVE Unavailable [address] + [place] [address] D Unavailable Unavailable Unavailable DALI, STEVE Unavailable [address] + [place] [address] D Unavailable Unavailable Unavailable DALI, STEVE Unavailable [address] + [place] [address] D Unavailable Unavailable Unavailable DALI, STEVE Unavailable [address] + [place] [address] D Unavailable Unavailable Unavailable DALI, STEVE Unavailable [address] + [place] [address] D Unavailable Unavailable Unavailable DALI, STEVE Unavailable [address] + [place] [address] D Unavailable Unavailable Unavailable DALI, STEVE Unavailable [address] + [place] [address] D Unavailable Unavailable Unavailable DALI, STEVE Unavailable [address] + [place] [address] D Unavailable Unavailable Unavailable DALI, STEVE Unavailable [address] + [place] [address] D Unavailable Unavailable Unavailable STEVE MCNALLY Unavailable [address] + [place] [address] Care Team Providers Name Role Phone Parveen Medina Attending Unavailable Willow, Sarah Primary Care Unavailable Willow, Sarah Consulting Unavailable Willow, Sarah Attending Unavailable Willow, Sarah Referring Unavailable Willow, Sarah Primary Care Unavailable MoodisParveen dubose Attending Unavailable Willow, Sarah Primary Care Unavailable Moodisgracy, Parveen Referring Unavailable KIMBERLY ASENCIO Consulting Unavailable Parveen Medina Attending Unavailable Moodisgracy, Parveen Referring Unavailable Willow, Sarah Primary Care Unavailable KIMBERLY ASENCIO Consulting Unavailable Parveen Medina Attending Unavailable MoodispaParveen lauren Referring Unavailable Willow, Sarah Primary Care Unavailable Willow, Sarah Attending Unavailable Willow, Sarah Referring Unavailable Willow, Sarah Primary Care Unavailable Willow, Sarah Attending Unavailable Willow, Sarah Primary Care Unavailable Eva Storey Attending Unavailable Willow, Sarah Primary Care Unavailable Eva Sotrey Referring Unavailable Moodisgracy, Parveen Attending Unavailable MoodisParveen dubose Referring Unavailable Willow, Sarah Primary Care Unavailable KIMBERLY ASENCIO Consulting Unavailable Parveen Medina Attending Unavailable MoodisParveen dubose Referring Unavailable Willow, Sarah Primary Care Unavailable KIMBERLY ASENCIO Consulting Unavailable Parveen Medina Attending Unavailable MoodParveen mauricio Referring Unavailable Willow, Sarah Primary Care Unavailable Parveen Medina Attending Unavailable MoodParveen mauricio Referring Unavailable Willow, Sarah Primary Care Unavailable KIMBERLY ASENCIO Consulting Unavailable Willow, Sarah Attending Unavailable Willow, Sarah Primary Care Unavailable Parveen Medina Attending Unavailable MoodisParveen dubose Referring Unavailable Willow, Sarah Primary Care Unavailable KIMBERLY ASENCIO Consulting Unavailable Dionna Shankar Attending Unavailable MoodisParveen dubose Attending Unavailable Willow, Sarah Referring Unavailable Willow, Sarah Primary Care Unavailable JonoisParveen dubose Attending Unavailable MoodisParveen dubose Referring Unavailable Willow, Sarah Primary Care Unavailable KIMBERLY ASENCIO Consulting Unavailable Parveen Medina Attending Unavailable Willow, Sarah Primary Care Unavailable Willow, Sarah Consulting Unavailable Parveen Medina Attending Unavailable Moodisgracy, Parveen Referring Unavailable Willow, Sarah Primary Care [...] Primary Care Unavailable KIMBERLY ASENCIO Consulting Unavailable SCHWEIKERT, DWAYNE A Attending Unavailable MOODISPAW, PARVEEN F Referring Unavailable WILLOW, SARAH ZAK Referring Unavailable NEVIN RUSSO ([facility]) Attending Unavailable SCHWEIKERT, DWAYNE A Referring Unavailable WILLOW, SARAH Referring Unavailable WILLOW, SARAH Primary Care Unavailable SCHWEIKERT, DWAYNE A Attending Unavailable WILLOW, SARAH Primary Care Unavailable MOODISPAW, PARVEEN Referring Unavailable VLAD SMITH Attending Unavailable SCHWEIKERT, DWAYNE A Referring Unavailable WILLOW, SARAH Primary Care Unavailable PROBLEMS PROBLEMS DATE TYPE CONDITION / CODE ATTENDING STATUS SOURCE 07/30/2018 Unknown E78.5 - [place], Active [place] Hyperlipidemia, [facility] unspecified / Hospital E78.5(ICD-10) Repository 05/30/2018 Unknown I48.91 - Unspecified [place], Active [place] atrial fibrillation / [facility] I48.91(ICD-10) Hospital Repository 05/08/2018 Active Other specified SCHWEIKERT, Active [place] personal risk DWAYNE A Clinic Other factors, not [place] elsewhere classified Repository / Z91.89(ICD-10) 05/16/2017 Active Persistent atrial SCHWEIKERT, Active [place] fibrillation / DWAYNE A [facility] Other I48.1(ICD-10) [place] Repository 05/03/2016 Active Other fpc SCHWEIKERT, Active [place] (current) drug [facility] Other therapy / [place] Z79.899(ICD-10) Repository 05/03/2016 Active [facility] (current) SCHWEIKERT, Active [place] use of anticoagulants [facility] Clinic Other / Z79.01(ICD-10) [place] Repository 05/03/2016 Active Supraventricular SCHWEIKERT, Active [place] tachycardia / [facility] Other I47.1(ICD-10) [place] Repository 05/03/2016 Active Palpitations / SCHWEIKERT, Active [place] R00.2(ICD-10) [facility] Clinic Other [place] Repository 05/03/2016 Active Unspecified atrial SCHWEIKERT, Active [place] flutter / [facility] Other I48.92(ICD-10) [place] Repository 05/08/2018 Admitting Unknown / SCHWEIKERT, Active [place] [facility] diagnosis UNK(Unknown) [facility] Repository 02/18/2018 Unknown Z79.01 - [facility] [place], Active [place] (current) use of [facility] anticoagulants / Hospital Z79.01(ICD-10) Repository 11/30/2017 Unknown M54.9 - Dorsalgia, Basali, Ayman Active [place] unspecified / Community M54.9(ICD-10) Hospital Repository 10/18/2017 Unknown S22.000A - Sarah Ramirez Active [place] compression fracture [facility] Hospital thoracic vertebra, Repository initial encounter for closed fracture / S22.000A(ICD-10) 10/11/2017 Unknown [place]2.000A - Sarah Ramirez Active [place] compression fracture [facility] of unspecified lumbar Hospital vertebra, initial Repository encounter for closed fracture / S32.000A(ICD-10) 09/28/2017 Unknown I48.0 - Paroxysmal [place], Active [place] atrial fibrillation / [facility] I48.0(ICD-10) Hospital Repository PROCEDURES PROCEDURES No Procedure Records FoundRESULTS RESULTS CREATININE FINGERSTICK Collected: 08/13/2018 Status: F Source: [place] 1:12 PM [facility] REPOSITORY TYPE CODE TESTS RESULT OUT OF REFERENCE UNITS RANGE LAB L9100.0210 0.70-1.30 mg/dL High CREATININE WB 1.4 LAB L9100.0220 >60 mL/min Low EGFR WB 56.0000 Performed By: #### L9100.0200 #### [facility] Point of Care [address] [place] [address] CHEST WITH CONTRAST Observed: 08/13/2018 Status: F Source: [place] 1:02 PM [facility] REPOSITORY [facility] Imaging Services [address] [place] [address] Chest WITH Contrast MR#: [id number] Acct: [id number] Name: ENRIQUE MCNALLY III Rep #: [id number] : 1955 M 63 From: Shane Negro MD PCP: Sarah Daugherty MD Status: REG CLI Study: Chest WITH Contrast Date of Exam: 08/13/18 Exam# [id number] Ordering Dr: Sarah Daugherty MD ADDENDUM by SHANE NEGRO on 08/14/18 at 1418 ADDENDUM I now have prior CT report but no images dated January 16, 2018. Subtle nodular appearing density in the right upper lobe anteriorly on image #79 series 4 correlates to an area of septal thickening on image #92 series 601. I do not see a suspicious nodule in this location. Previously a right right lower lobe nodular density abutting the hemidiaphragm as described. There is no suspicious nodule. There is some subpleural thickening, for instance image #90 series 601 and there is a punctate calcified granuloma image #111 series 4 posteriorly. The prior report also describes a 5 mm nodule in the left lower lobe there is a very small nodule seen in association with the left lower lobe posterior and lateral measuring approximately 4 mm, image #90 series 4 and image #266 series 601. By size criteria this is likely benign. Again I see no evidence of a suspicious pulmonary nodule. Electronically Signed: Shane Negro MD at 14:18 EST , Service support , 08/14/18 1418 Date cc: Sarah Daugherty MD * Signed ADDENDUM by SHANE NEGRO on 08/14/[address]/Chest WITH Contrast 08/14/18 1425 Date cc: Sarah Daugherty MD * Signed STUDY: CT CHEST WITH CONTRAST REASON FOR EXAM: Male, 63 years old. FOLLOW UP PULM NODULES. SOME VERTEBRAL COMPRESSIONS RADIATION DOSAGE (If Supplied By Facility): CTDIvol = ( 14.57 ) mGy, DLP = ( 347.76 ) mGycm TECHNIQUE: Transaxial imaging was performed following intravenous administration of 100ML ml of Isovue 300 contrast material. Individualized dose optimization techniques were used for this CT. COMPARISON: PA and lateral chest February 07, 2014. I do not have any studies regarding the testing between this time nor do I have reports of pulmonary nodules. Should more recent studies become available, an addendum can be made FINDINGS: Severe centrilobular emphysema is noted throughout both lungs. No defined suspicious pulmonary nodules There is no demonstrated pleural abnormality. Heart size is normal. Coronary artery calcifications are present. No pericardial effusion. Mildly prominent lymph nodes are noted in the perihilar region on the right, likely reactive. There is also a small pretracheal lymph node, image #56 series 2 measuring 1 x 0.85 cm. This is nonspecific. No axillary lymphadenopathy. Normal enhanced pulmonary arteries. Atherosclerosis of the aorta noted. No dissection. No aneurysm. No pulmonary embolus. Bone demineralization is noted. There is mild superior endplate compression of T5. There is slightly less than 50% vertebral body compression anteriorly of T9. There are prominent superior and inferior endplate Schmorl's nodes of T10. There is an approximate 50% anterior vertebral body compression of T12 with a prominent superior endplate Schmorl's node. No paraspinous soft tissue hematoma no sharply defined fracture lucency. These compressions can be seen on the chest x-ray February 07, 2014. Degenerative spondylosis with multilevel marginal osteophytes most prominent in the lower thoracic region noted. There is a cyst of the superior lateral upper pole of the left kidney measuring approximately [address]/Chest WITH Contrast IMPRESSION: Severe emphysema. No suspicious pulmonary nodules. Vertebral compressions that appear old with bony demineralization and degenerative spondylosis.. Electronically Signed: Shane Negro MD at 10:49 EST , Service support , CC: Sarah Daugherty MD [employer] Supervisor: Signed PROTHROMBIN TIME W/INR Collected: 08/13/2018 Status: F Source: [place] 12:51 PM [facility] REPOSITORY TYPE CODE TESTS RESULT OUT OF RANGE REFERENCE UNITS LAB L300.4150 11.7-14.9 SECONDS High PROTIME 24.9 LAB L300.4200 Normal INR 2.2 Performed By: #### L300.3900 #### [facility] [address] [place], [place], [id number] PROTHROMBIN TIME W/INR Collected: 07/15/2018 Status: F Source: [place] 6:12 AM [facility] REPOSITORY TYPE CODE TESTS RESULT OUT OF RANGE REFERENCE UNITS LAB L300.4150 11.7-14.9 SECONDS High PROTIME 23.6 LAB L300.4200 Normal INR 2.1 Performed By: #### L300.3900 #### [facility] [address] [place], [place], [address] PROTHROMBIN TIME W/INR Collected: 06/25/2018 Status: F Source: [place] 6:01 AM [facility] REPOSITORY TYPE CODE TESTS RESULT OUT OF RANGE REFERENCE UNITS LAB L300.4150 11.7-14.9 SECONDS High PROTIME 29.7 LAB L300.4200 Normal INR 2.8 Performed By: #### L300.3900 #### [facility] [address] [place], [place], [address] PROTHROMBIN TIME W/INR Collected: 05/21/2018 Status: F Source: [place] 3:48 PM [facility] REPOSITORY TYPE CODE TESTS RESULT OUT OF RANGE REFERENCE UNITS LAB L300.4150 11.7-14.9 SECONDS High PROTIME 24.5 LAB L300.4200 Normal INR 2.2 Performed By: #### L300.3900 #### [facility] [address] [place], [place], [address] PROGRESS Observed: 05/08/2018 Status: COMPLETED Source: [place] 11:59 AM [facility]IN[facility] OTHER CAMPUS REPOSITORY HNO ID: [id number] Author: Dwayne Cavanaugh Service: (none) Author Type: Physician Type: Progress Notes Filed: 05/08/2018 1:09 PM Note Text: PRIMARY CARE PHYSICIAN: Sarah Daugherty MD [address] [place] [address] Patient Care Team: Sarah Daugherty as PCP - General (Family Practice) Parveen Medina as Specialty Flight Service Agent (Cardiology) Dwayne Cavanaugh as Specialty Flight Service Agent (Cardiology) CHIEF COMPLAINT: Follow up for arrhythmia [...] therapy. He underwent AF catheter ablation at [facility] in 2007. The procedure was complicated by [...] rapid ventricular rates. He was admitted to [facility] in 08/2014 for loading of the [...] ablation procedure in September 2015 here at [facility]. The procedure involved redo catheter [...] mother having open heart surgery here at [facility] recently. 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 Carlos Huggins - ECHOCARDIOGRAM 04/06/2016 normal LV size and systolic fxn; LVEF 55-60%; no significant valvular abnormalities - IR VENOUS CHIEF METEOROLOGIST 05/28/2008 unsuccessful angioplasty attempts at right common [...] Mother - Diabetes Mother - Heart Mother [place] AND stents - Asthma Sister - Prostate [...] (COUMADIN) 5 mg tablet As directed [facility]-3 Fatty Acids 300-1,000 mg cap Take 1 [...] Sinus rhythm 64 bpm; first-degree AV block (ME 234 ms); QRS 92 ms; corrected QT interval 468 ms, appropriate on dofetilide (Tikosyn); poor R wave progression precordial leads similar to previous EKG 04/2017 I have personally reviewed the Electrocardiogram. I spent 30 minutes in the visit, with more than 50% of the total mekt-kf-xvwc time of the visit in counseling / [...] Palpitations - ICD9: 785.1, ICD10: R00.2 5. 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 At risk for stroke - ICD9: V15.89, ICD10: Z91.89 [id number] = 2 (HTN, DM); on oral anticoagulation therapy 7. On anticoagulant therapy - ICD9: V58.61, ICD10: Z79.01 warfarin; indication: stroke prevention AF; [id number] = 2 ; risk:benefit of oral anticoagulation [...] 05/08/2018 CNOV Observed: 05/08/2018 Status: COMPLETED Source: [place] 11:30 AM [facility] OTHER [facility] REPOSITORY Office Visit (AGCARDPHRA) ENRIQUE MCNALLY ([id number]) 1955 M Date Time Provider Department 05/08/18 11:30 AM DWAYNE CAVANAUGH During your visit today, we recorded the following information about you: Pulse Respiration Blood pressure Weight 67/minute 18/minute 108/70 70.2 kg Height 1.854 m Gilma Fryide 05/08/2018 11:35 AM Signed NO CARDIAC COMPLAINTS TODAY GILMA Cavanaugh MD 05/08/2018 1:09 PM Signed PRIMARY CARE PHYSICIAN: Sarah Daugherty MD [address] [place] [address] Patient Care Team: Sarah Daugherty as PCP - General (Family Practice) Parveen Medina as Specialty Flight Service Agent (Cardiology) Dwayne Cavanaugh as Specialty Flight Service Agent (Cardiology) CHIEF COMPLAINT: Follow up for arrhythmia [...] therapy. He underwent AF catheter ablation at [facility] in 2007. The procedure was complicated by [...] rapid ventricular rates. He was admitted to [facility] in 08/2014 for loading of the [...] ablation procedure in September 2015 here at [facility]. The procedure involved redo catheter [...] mother having open heart surgery here at [facility] recently. 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 Carlos Huggins - ECHOCARDIOGRAM 04/06/2016 normal LV size and systolic fxn; LVEF 55-60%; no significant valvular abnormalities - IR VENOUS CHIEF METEOROLOGIST 05/28/2008 unsuccessful angioplasty attempts at right common femoral vein and external iliac vein occlusions; [facility] - REPAIR OF FEMUR Left 1979 ORIF left femur SOCIAL HISTORY Social History Substance Use Topics - Smoking status: Current Every Day Smoker Packs/day: 1.00 Types: Cigarettes Start date: 07/30/1974 - Smokeless tobacco: Never Used - Alcohol use Yes Comment: occasionally FAMILY HISTORY Problem Relation Age of Onset - Diabetes Father - Coronary Artery Disease Mother - Diabetes Mother - Heart Mother [place] AND stents - Asthma Sister - Prostate [...] (COUMADIN) 5 mg tablet As directed [facility]-3 Fatty Acids 300-1,000 mg cap Take 1 [...] Sinus rhythm 64 bpm; first-degree AV block (ME 234 ms); QRS 92 ms; corrected QT interval 468 ms, appropriate on dofetilide (Tikosyn); poor R wave progression precordial leads similar to previous EKG 04/2017 I have personally reviewed the Electrocardiogram. 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 At risk for stroke - ICD9: V15.89, ICD10: Z91.89 [id number] = 2 (HTN, DM); on oral anticoagulation therapy 7. On anticoagulant therapy - ICD9: V58.61, ICD10: Z79.01 warfarin; indication: stroke prevention AF; [id number] = 2 ; risk:benefit of oral anticoagulation [...] healthcare provider's instructions for treatment. Developed by [employer]. Published by [employer]. Copyright ?2013 [employer] and/or one of its subsidiaries. All rights reserved. 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 On dev manager drug therapy [Z79.899] More... 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 [...] healthcare provider's instructions for treatment. Developed by [employer]. Published by [employer]. Copyright ?2014 [employer] and/or one of its subsidiaries. All rights reserved. Visit Notes: >> Miriamkal FryBuckhorn SunMay 08, 2018 11:31 AM Status: Signed NO CARDIAC COMPLAINTS TODAY MIRIAMKal TARUN LEASE OUT WORKER Prescriptions ordered this encounter Disp Refills Start End DILTIAZEM SR 120 MG 24 HR CAP 180 * 3 05/08/2018 Route: ORAL Sig: Take 1 capsule by mouth twice daily. Medications Discontinued During This Encounter meclizine (ANTIVERT) 25 mg tab 04/25/2017 05/08/2018 Class: Historical Med Route: ORAL Sig: Take 25 mg by mouth as needed. Disc: Course of therapy completed diltiazem CD (CARDIZEM CD, DALTON XT* 04/24/2016 05/08/2018 Class: Historical Med Route: ORAL Sig: Take 120 mg by mouth twice daily. Disc: Reason for discontinue is not on file. Disposition: Return in about 6 months (around 11/06/2018) for appt with Nevin Russo APN with EKG. Follow-up and Disposition History Recorded Letter Text Encounter Status:Closed by DWAYNE CAVANAUGH MD on 05/08/18 PROTHROMBIN TIME W/INR Collected: 04/30/2018 Status: F Source: [place] 9:34 AM [facility] REPOSITORY TYPE CODE TESTS RESULT OUT OF RANGE REFERENCE UNITS LAB L300.4150 11.7-14.9 SECONDS High PROTIME 22.6 LAB L300.4200 Normal INR 2.0 Performed By: #### L300.3900 #### [facility] [address] [place], [place], [id number] LIVER PROFILE Collected: 04/30/2018 Status: F Source: [place] 9:33 AM [facility] REPOSITORY TYPE CODE TESTS RESULT OUT [...] BILI 0.18 Performed By: #### L500.3400 #### [facility] [address] [place], [place], [id number] PROTHROMBIN TIME W/INR Collected: 04/18/2018 Status: F Source: [place] 6:08 AM [facility] REPOSITORY TYPE CODE TESTS RESULT OUT OF RANGE REFERENCE UNITS LAB L300.4150 11.7-14.9 SECONDS High PROTIME 21.0 LAB L300.4200 Normal INR 1.8 Performed By: #### L300.3900 #### [facility] [address] [place], [address] PROTHROMBIN TIME W/INR Collected: 03/28/2018 Status: F Source: [place] 11:57 AM [facility] REPOSITORY TYPE CODE TESTS RESULT OUT OF RANGE REFERENCE UNITS LAB L300.4150 11.7-14.9 SECONDS High PROTIME 21.7 LAB L300.4200 Normal INR 1.9 Performed By: #### L300.3900 #### [facility] [address] [place], [address] PROTHROMBIN TIME W/INR Collected: 03/12/2018 Status: F Source: [place] 2:06 PM [facility] REPOSITORY TYPE CODE TESTS RESULT OUT OF RANGE REFERENCE UNITS LAB L300.4150 11.7-14.9 SECONDS High PROTIME 24.0 LAB L300.4200 Normal INR 2.1 Performed By: #### L300.3900 #### [facility] [address] [place], [address] PROTHROMBIN TIME W/INR Collected: 02/27/2018 Status: F Source: [place] 6:09 AM [facility] REPOSITORY TYPE CODE TESTS RESULT OUT OF RANGE REFERENCE UNITS LAB L300.4150 11.7-14.9 SECONDS High PROTIME 22.2 LAB L300.4200 Normal INR 1.9 Performed By: #### L300.3900 #### [facility] [address] [place], [address] CARDIOLOGY VISIT Observed: 02/18/2018 Status: F Source: [place] REPORT 12:11 PM [facility] REPOSITORY [facility] 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 He has continued to follow with [facility] electrophysiology as well. 2. Atrial flutter, unspecified type I48.92 Plan Again he appears to be doing well with his underlying atrial dysrhythmias on his current medical therapy. He will continue future follow-up. He will continue to follow with [facility] electrophysiology as well 3. History of [...] Parveen Medina MD> Date Parveen Medina MD Cosigner Signature: Date (if applicable) CC: Sarah Daugherty MD PROTHROMBIN TIME W/INR Collected: 02/14/2018 Status: F Source: [place] 10:38 AM [facility] REPOSITORY TYPE CODE TESTS RESULT OUT OF RANGE REFERENCE UNITS LAB L300.4150 11.7-14.9 SECONDS High PROTIME 22.4 LAB L300.4200 Normal INR 2.0 Performed By: #### L300.3900 #### [facility] Laboratory [address] [place], [address] PROTHROMBIN TIME W/INR Collected: 01/29/2018 Status: F Source: [place] 6:10 AM [facility] REPOSITORY TYPE CODE TESTS RESULT OUT OF RANGE REFERENCE UNITS LAB L300.4150 11.7-14.9 SECONDS High PROTIME 23.5 LAB L300.4200 Normal INR 2.1 Performed By: #### L300.3900 #### [facility] Laboratory [address] [place], [address] DOWNTIME REPORT Observed: 01/17/2018 Status: F Source: [place] 12:14 PM [facility] REPOSITORY [facility] Medical Records Department [address] [place] [address] Downtime Report MR#: [id number] Acct: [id number] Name: ERNIQUE MCNALLY III Rep #: [id number] : 1955 62 From: Zak Guan PCP: Sarah Daugherty MD Status: REG RCR This patient was seen during an EMR downtime December 31, 2017 - January 07, 2018. This patient may have a combination of paper and electronic documentation or all paper documentation. All documentation is viewable within the e-chart portion of [facility] for each patient visit. PROTHROMBIN TIME W/INR Collected: 01/17/2018 Status: F Source: [place] 6:09 AM [facility] REPOSITORY TYPE CODE TESTS RESULT OUT OF RANGE REFERENCE UNITS LAB L300.4150 11.7-14.9 SECONDS High PROTIME 20.6 LAB L300.4200 Normal INR 1.8 Performed By: #### L300.3900 #### [facility] Laboratory [address] [place], [address] CT CHEST W/O CONTRAST Observed: 01/16/2018 Status: F Source: [facility] 9:25 AM [facility] REPOSITORY Performed at [facility] APPROVED BY: JUNIOR TINAJERO MD EXAMINATION: CHEST [...] 01/08/2018 Status: F Source: [place] 9:37 AM [facility] REPOSITORY TYPE CODE TESTS RESULT OUT [...] Lymph 1.66 Performed By: #### L100.0100 #### [facility] Laboratory [place], [address] COMPREHENSIVE METABOLIC Collected: 01/08/2018 Status: F Source: [place] [facility] 9:37 AM [facility] REPOSITORY TYPE CODE TESTS RESULT OUT [...] By: #### L500.4050, L501.1400, L501.5200, L501.9520 #### [facility] Laboratory [address] [place], [address] URIC ACID Collected: 01/08/2018 Status: F Source: [place] 9:37 AM [facility] REPOSITORY TYPE CODE TESTS RESULT OUT OF RANGE REFERENCE UNITS LAB L501.1400 3.5-7.2 mg/dL Normal URIC 6.6 Result Comment: The drugs N-Acetylcysteine and Metamizole may falsely depress this assay. Performed By: #### L500.4050, L501.1400, L501.5200, L501.9520 #### [facility] Laboratory [address] [place], [address] MAGNESIUM Collected: 01/08/2018 Status: F Source: [place] 9:37 AM [facility] REPOSITORY TYPE CODE TESTS RESULT OUT OF RANGE REFERENCE UNITS LAB L501.5200 1.6-2.6 mg/dL Normal MG 1.9 Performed By: #### L500.4050, L501.1400, L501.5200, L501.9520 #### [facility] Laboratory [address] [place], [address] THYROID STIM HORMONE Collected: 01/08/2018 Status: F Source: [place] (T[facility]) 9:37 AM [facility] REPOSITORY TYPE CODE TESTS RESULT OUT OF RANGE REFERENCE UNITS LAB L501.9520 0.358-3.74 uIU/mL Normal TSH 1.84 Performed By: #### L500.4050, L501.1400, L501.5200, L501.9520 #### [facility] [address] [place], [address] PROTHROMBIN TIME W/INR Collected: 01/03/2018 Status: F Source: [place] 6:05 AM [facility] REPOSITORY Order Comment: RESULT(S) PREVIOUSLY REPORTED ON MANUAL REQUISITION DURING DOWNTIME. TYPE CODE TESTS RESULT OUT OF RANGE REFERENCE UNITS LAB L300.4150 11.7-14.9 SECONDS High PROTIME 21.4 LAB L300.4200 Normal INR 1.9 Performed By: #### L300.3900 #### [facility] [address] [place], [address] PROTHROMBIN TIME W/INR Collected: 12/27/2017 Status: F Source: [place] 6:09 AM [facility] REPOSITORY TYPE CODE TESTS RESULT OUT OF RANGE REFERENCE UNITS LAB L300.4150 11.7-14.9 SECONDS High PROTIME 19.2 LAB L300.4200 Normal INR 1.6 Performed By: #### L300.3900 #### [facility] [address] [place], [address] PROTHROMBIN TIME W/INR Collected: 12/13/2017 Status: F Source: [place] 6:07 AM [facility] REPOSITORY TYPE CODE TESTS RESULT OUT OF RANGE REFERENCE UNITS LAB L300.4150 11.7-14.9 SECONDS High PROTIME 22.9 LAB L300.4200 Normal INR 2.0 Performed By: #### L300.3900 #### [facility] [address] [place], [address] PT D/C SUMMARY (1) Observed: 11/30/2017 Status: F Source: [place] 6:43 AM [facility] REPOSITORY [facility] Physical Therapy [facility] [address] [place], [place] [address] Fax REHABILITATION SERVICES DISCHARGE SUMMARY MR#: [id number] Acct: [id number] Name: ENRIQUE MCNALLY III Rep #: [id number] : 1955 62 From: Gagandeep Adams DPT, OCS, CSCS Referring Dr.: Eva Storey MD Status: REG RCR Insurance: [facility] SELF PAY INSURANCE HP - PT D/C [...] activity with pain no greater than transient 08/08 Goal Progress: Progressing - Plan Plan: D/C - D/C Information Discharge Comments: Doing well and will continue HEP on his own. If there are questions or concerns regarding this patient's physical therapy, please feel free to call me at [phone]. Thank you for the referral of this patient. Sincerely, Gagandeep Adams, DPT, OC <Electronically signed by Gagandeep PARIST, OCS, CSCS> 11/30/17 0643 CC: Eva Storey MD; Sarah Daugherty EBG Signed PROTHROMBIN TIME W/INR Collected: 11/29/2017 Status: F Source: [place] 6:20 AM [facility] REPOSITORY TYPE CODE TESTS RESULT OUT OF RANGE REFERENCE UNITS LAB L300.4150 11.7-14.9 SECONDS High PROTIME 21.2 LAB L300.4200 Normal INR 1.8 Performed By: #### L300.3900 #### [facility] Laboratory [address] [place], [address] PROGRESS Observed: 11/21/2017 Status: COMPLETED Source: [place] 2:06 PM [facility]INIC OTHER CAMPUS REPOSITORY HNO ID: [id number] Author: Nevin Russo Service: (none) Author Type: [...] therapy. He underwent AF catheter ablation at [facility] in 2007. The procedure was complicated by [...] rapid ventricular rates. He was admitted to [facility] in 08/2014 for loading of the [...] ablation procedure in September 2015 here at [facility]. The procedure involved redo catheter [...] mother having open heart surgery here at [facility] recently. He denies chest pain, [...] diagnosed 2001 - Hypogonadism in male - MCFP current use of antiarrhythmic drug dofetilide (Tikosyn); indication: symptomatic AF or atrial flutter - On anticoagulant therapy warfarin; indication: stroke prevention AF; [id number] = 2 - On dev manager drug therapy high risk medication: antiarrhythmic drug dofetilide (Tikosyn); indication: symptomatic AF/flutter - Palpitations - Paroxysmal supraventricular tachycardia (HCC) - Persistent atrial fibrillation (HCC) recurrent; symptomatic; s/p AF ablation 04/2008 [facility]; s/p redo AF ablation 09/2015 - Tachycardia - Tobacco dependence syndrome encouraged to quit - Type 2 diabetes mellitus (HCC) diagnosed 2009; diet-controlled PAST SURGICAL HISTORY Procedure Laterality Date - AFIB ABLATION/PULM VEIN ISOLATION 10/12/2015 redo AF catheter ablation/PVAI; also ablation of two macroreentrant atypical left atrial flutters; [facility] Dr. Cavanaugh - CARDIAC CATH 09/2006 - CATHETER, ABLATION 05/25/2008 [facility], Dr. Carlos Huggins - ECHO 04/06/2016 normal LV size and systolic fxn; LVEF 55-60%; no significant valvular abnormalities - IR VENOUS CHIEF METEOROLOGIST 05/28/2008 unsuccessful angioplasty attempts at right common [...] Mother - Diabetes Mother - Heart Mother [place] AND stents - Asthma Sister - Prostate [...] (COUMADIN) 5 mg tablet As directed [facility]-3 Fatty Acids 300-1,000 mg cap Take 1 tablet by mouth once daily. lansoprazole (PREVACID) 30 mg capsule Take 30 mg by mouth once daily. AFLURIA QUAD 8989-3414, PF, 60 mcg/0.5 mL syrg FLUVIRIN 8851-4721 45 mcg (15 mcg x 3)/0.5 mL [...] first-degree AV block heart rate 58 bpm, ME interval 250 ms, she was duration 88 [...] 2 and he is followed by his biochemist Dr. Phillip. He's had blood work which [...] is WNL, he follows with his PCP ([place]) Atypical atrial flutter (HCC) Comment: stable, see above Vlad Russo, MSN, REPAIRER [facility].HOSPITAL COORDINATOR CNOV Observed: 11/21/2017 Status: COMPLETED Source: [place] 2:00 PM [facility]IN[facility] OTHER CAMPUS REPOSITORY Office Visit (AGCARDPHRA) ENRIQUE MCNALLY ([id number]) 1955 M Date Time Provider Department 11/21/17 2:00 PM NEVIN RUSSO (HOSPITAL COORDINATOR) AGCARDPHRA During your visit today, we recorded the following information about you: Pulse Blood pressure Weight Height 59/minute 120/72 68.8 kg 1.854 m Vero Joseph CMA 11/21/2017 2:10 PM Signed Mr. Mcnally is here for a 6 month follow up. No cardiac complaints today. DOMINIQUE Kuhn, MSN, REPAIRER [facility] [employer].HOSPITAL COORDINATOR 11/21/2017 4:39 PM Signed HISTORY OF PRESENT [...] therapy. He underwent AF catheter ablation at [facility] in 2007. The procedure was complicated by [...] rapid ventricular rates. He was admitted to [facility] in 08/2014 for loading of the [...] ablation procedure in September 2015 here at [facility]. The procedure involved redo catheter [...] mother having open heart surgery here at [facility] recently. 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 Carlos Huggins - ECHO 04/06/2016 normal LV size and systolic fxn; LVEF 55-60%; no significant valvular abnormalities - IR VENOUS CHIEF METEOROLOGIST 05/28/2008 unsuccessful angioplasty attempts at right common [...] Mother - Diabetes Mother - Heart Mother [place] ANDamp; stents - Asthma Sister - Prostate [...] (COUMADIN) 5 mg tablet As directed [facility]-3 Fatty Acids 300-1,000 mg cap Take 1 tablet by mouth once daily. lansoprazole (PREVACID) 30 mg capsule Take 30 mg by mouth once daily. AFLURIA QUAD 0376-2905, PF, 60 mcg/0.5 mL syrg FLUVIRIN 4391-3995 45 mcg (15 mcg x 3)/0.5 mL [...] first-degree AV block heart rate 58 bpm, ME interval 250 ms, she was duration 88 [...] 2 and he is followed by his biochemist Dr. Phillip. He's had blood work which [...] Comment: stable, see above Vlad Russo, MSN, REPAIRER [facility] [employer].POOJA Russo, MSN, REPAIRER [facility] CAR.HOSPITAL COORDINATOR 11/21/2017 2:27 PM Signed Atrial Fibrillation What [...] healthcare provider's instructions for treatment. Developed by [employer]. Published by [employer]. Copyright ?2014 [employer] and/or one of its subsidiaries. All rights reserved. Referring Provider: DWAYNE CAVANAUGH [[id number]] Allergies As of Date: 11/21/2017 Noted Allergy Reaction INSECT EXTRACTS 08/25/2015 7 - Swelling MED-HIST 08/25/2015 7 - Swelling Comments: SECONOL SUCCINYLCHOLINE 12/05/2016 7 - Swelling Date Reviewed: 11/21/2017 Reviewed by: Nevin ([facility]) Karan - Fully Assessed Reason for Visit: F/U 6 Month [444] Primary Visit Diagnosis:Paroxysmal supraventricular tachycardia (HCC) [I47.1] Other Visit Diagnoses:Persistent atrial fibrillation (HCC) [I48.1] Essential hypertension [I10] Atypical atrial flutter (HCC) [I48.4] Order(s):EKG WITH INTERPRETATION [18567MZI] Order #: [id number]: 1 dofetilide (TIKOSYN) 500 mcg capsuleTake 1 [...] tha* Medication notes this encounter AFLURIA QUAD 4618-3373 (PF) 60 MCG/0.5 ML INTRAMUSCULAR SYRINGE >> Vero DOMINIQUE Joseph 11/21/2017 1:58 PM >> ADELAIDA JOSEPH CMAOINETTE SunNov 21, 2017 1:58 PM completed FLUVIRIN 0434-8951 45 MCG (15 MCG X 3)/0.5 ML INTRAMUSCULAR SUSPENSION >> Vero DOMINIQUE Joseph 11/21/2017 1:58 PM >> JENNIFER FOX VERO SunNov 21, 2017 1:58 PM completed ZOSTAVAX (PF) 19,400 UNIT/0.65 ML SUBCUTANEOUS SUSPENSION >> Vero DOMINIQUE Joseph 11/21/2017 1:59 PM >> ADELAIDA JOSEPH CMAOINETTE SunNov 21, 2017 1:59 PM completed Problem List As Of Date 11/21/2017 Noted Resolved Atrial fibrillation (HCC) [I48.91] More... Atrial flutter (HCC) [I48.92] Palpitations [R00.2] Paroxysmal supraventricular tachycardia (HCC) [* Tachycardia [R00.0] More... On dev manager drug therapy [Z79.899] More... 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 [...] healthcare provider's instructions for treatment. Developed by [employer]. Published by [employer]. Copyright ?2014 [employer] and/or one of its subsidiaries. All rights [...] year. Disc: Course of therapy completed FLUVIRIN 45 mcg (15 mcg x * 03/27/2016 11/21/2017 Class: Historical Med Route: IM/SQ Si Units by IM/SQ route every year. Disc: Discontinued by another Health Care Provider AFLURIA QUAD , PF, 60 mcg/0* 04/24/2017 11/21/2017 Class: Historical [...] Letter Text Encounter Status:Closed by KARAN, MSN, HOSPITAL COORDINATOR, VLAD Agosto on 11/21/17 PROTHROMBIN TIME W/INR Collected: 11/14/2017 Status: F Source: [place] 6:08 AM [facility] REPOSITORY TYPE CODE TESTS RESULT OUT OF REFERENCE UNITS RANGE LAB L300.4150 11.7-14.9 SECONDS High PROTIME 35.0 LAB L300.4200 High alert INR 3.5 Result Comment: CRITICAL VALUE VERIFIED. CALLED TO GLENYS AT [facility] 11/14/17 0851 Jessica Claudio. RESULTS READ BACK BY SAME . Performed By: #### L300.3900 #### [facility] Laboratory [address] [place], [address] OBSOLETE Observed: 11/10/2017 Status: COMPLETED Source: [place] 12:00 AM CLINIC OTHER CAMPUS REPOSITORY Refill (AGCARDPHRA) ENRIQUE MCNALLY ([id number]) 1955 M Date Time Provider Department 11/10/17 NEVIN RUSSO ([facility]) AGCARDPHRA During your visit today, we recorded [...] 1 CAPSULE BY MOUTH TWICE* AFLURIA QUAD 4919-4060 (PF) 6* MECLIZINE 25 MG TABLET KLOR-CON M10 MEQ TABLET,EXTEN* Take 10 mEq by mouth once cele* DILTIAZEM SR 120 MG 24 HR CAP Take 120 mg by mouth twice da* EPIPEN 2-HYACINTH 0.3 MG/0.3 ML IN* Inject 0.3 mg subcutaneously * FLUVIRIN 4787-4414 45 MCG (15* 1 Units by IM/SQ [...] tachycardia (HCC) [* Tachycardia [R00.0] More... On dev manager drug therapy [Z79.899] More... 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 MCFP current use of antiarrhythmic drug [Z* More... [...] TIME W/INR Collected: 11/01/2017 Status: F Source: [place] 6:10 AM [facility] REPOSITORY Order Comment: Comments: Standing Order Comments: Standing Order TYPE CODE TESTS RESULT OUT OF REFERENCE UNITS RANGE LAB L300.4150 11.7-14.9 SECONDS High PROTIME 35.9 LAB L300.4200 High alert INR 3.6 Result Comment: CRITICAL VALUE VERIFIED. CALLED TO [facility] NURSE VOICEMAIL. 11/01/17 0855 Jessica Claudio. RESULTS FAXED TO OFFICE Performed By: #### [id number] #### [facility] Laboratory [address] [place], [address] INITAL EVALUATION (1) Observed: 10/30/2017 Status: F Source: [place] - PT 8:59 AM [facility] REPOSITORY [facility] Physical Therapy [address] [place] [address] Fax REHABILITATION SERVICES INITIAL EVALUATION MR#: [id number] Acct: [id number] Name: ENRIUQE MCNALLY III Rep #: [id number] : 1955 62 From: Gagandeep Adams DPT, OCS, CSCS Referring Dr.: Eva Storey MD Status: REG R Insurance: [facility] SELF PAY INSURANCE Patient's Visit Information ENRIQUE MCNALLY III is a 62 year old M referred to Physical Therapy by Eva SERRA with a diagnosis of Back pain/leg pain. Date of Evaluation: 10/29/17 Physical Therapist: Gagandeep Admas, MARILYN, OC - Visit Plan Frequency: 2-3x /Week [...] with pain no greater than transient /10 - Rehabilitation Potential Physical Therapy Diagnosis: Back [...] to be FAXED BACK to us at [phone] for Medicare purposes. Please let me know if there are questions or concerns regarding this plan of care. Physician Signature: Date: <Electronically signed by Gagandeep Adams DPT, OCS, CSCS> 10/30/17 0859 CC: Eva Storey MD; Sarah Daugherty EBG Signed For Medicare only, by signing this I certify the plan of care. Physicians Signature Date PROTHROMBIN TIME W/INR Collected: 10/18/2017 Status: F Source: [place] 6:14 AM [facility] REPOSITORY TYPE CODE TESTS RESULT OUT OF RANGE REFERENCE UNITS LAB L300.4150 11.7-14.9 SECONDS High PROTIME 34.5 LAB L300.4200 Normal INR 3.4 Performed By: #### L300.3900 #### [facility] Laboratory [address] [place], [address] CREATININE FINGERSTICK Collected: 10/11/2017 Status: F Source: [place] 9:50 AM [facility] REPOSITORY TYPE CODE TESTS RESULT OUT OF RANGE REFERENCE UNITS LAB L9100.0210 0.70-1.30 mg/dL Normal CREATININE WB 1.0 LAB L9100.0220 >60 mL/min EGFR WB Normal > 60.0000 Performed By: #### L9100.0200 #### [facility] Laboratory Point of Care [address] [place] [address] SPINE THORACIC W/WO Observed: 10/11/2017 Status: F Source: [place] CONTRAST 9:43 AM [facility] REPOSITORY [facility] Imaging Services [address] [place] [address] Spine Thoracic W/WO Contrast MR#: [id number] Acct: [id number] Name: ENRIQUE MCNALLY III Rep #: [id number] : 1955 M 62 From: Steve Guan MD PCP: Sarah Daugherty Status: REG CLI Study: Spine Thoracic W/WO Contrast Date of Exam: 10/11/17 Exam# [id number] Ordering Dr: Sarah Daugherty MD STUDY: MRI [...] suggest an acute process. Electronically Signed: Steve Gaun MD at 13:25 EDT , Service support , CC: Sarah Daugherty Syrup Shed Supervisor: Signed SPINE LUMBAR W/WO Observed: 10/11/2017 Status: F Source: [place] CONTRAST 9:43 AM [facility] REPOSITORY [facility] Imaging Services [address] [place] [address] Spine Lumbar W/WO Contrast MR#: [id number] Acct: [id number] Name: ENRIQUE MCNALLY III Rep #: [id number] : 1955 62 From: Steve Guan MD PCP: Sarah Daugherty Status: REG CLI Study: Spine Lumbar W/WO Contrast Date of Exam: 10/11/17 Exam# [id number] Ordering Dr: Sarah Daugherty MD STUDY: MRI [...] , Service support , CC: Sarah Daugherty Syrup Shed Supervisor: Signed PROTHROMBIN TIME W/INR Collected: 10/11/2017 Status: F Source: [place] 9:03 AM [facility] REPOSITORY Order Comment: Comments: Standing Order Comments: Standing Order TYPE CODE TESTS RESULT OUT OF RANGE REFERENCE UNITS LAB L300.4150 11.7-14.9 SECONDS High PROTIME 34.6 LAB L300.4200 Normal INR 3.4 Performed By: #### L300.3900 #### [facility] Laboratory [address] [place], [address] PROTHROMBIN TIME W/INR Collected: 10/01/2017 Status: F Source: [place] 4:12 PM [facility] REPOSITORY TYPE CODE TESTS RESULT OUT OF RANGE REFERENCE UNITS LAB L300.4150 11.7-14.9 SECONDS High PROTIME 32.5 LAB L300.4200 Normal INR 3.1 Performed By: #### L300.3900 #### [facility] Laboratory [address] [place], [address] L/S SPINE MIN 4 Observed: 10/01/2017 Status: F Source: [place] VIEWS 4:02 PM [facility] REPOSITORY [facility] Imaging Services [address] [place] [address] L/S Spine Min 4 Views MR#: [id number] Acct: [id number] Name: ENRIQUE MCNALLY III Rep #: [id number] : 1955 M 62 From: Haja Sandoval MD PCP: Sarah Daugherty Status: REG CLI Study: L/S Spine Min 4 Views Date of Exam: 10/01/17 Exam# [id number] Ordering Dr: Sarah Daugherty MD STUDY: X-RAY [...] , Service support , CC: Sarah Daugherty Syrup Shed Supervisor: Signed PROTHROMBIN TIME W/INR Collected: 09/04/2017 Status: F Source: [place] 6:08 AM [facility] REPOSITORY TYPE CODE TESTS RESULT OUT OF RANGE REFERENCE UNITS LAB L300.4150 11.7-14.9 SECONDS High PROTIME 23.5 LAB L300.4200 Normal INR 2.2 Performed By: #### L300.3900 #### [facility] Laboratory [address] [place], [address] ALLERGIES ALLERGIES DATE TYPE / NAME / CODE REACTION SEVERITY SOURCE CODE 02/18/2018 Drug secobarbital Unknown Unknown [place] Allergy/41 sodium/[id number](RXN Community [id number]([facility]) Repository 02/18/2018 Drug venom-honey Anaphylaxis Unknown [place] Allergy/41 bee/[id number](RXNORM Community 0629617([facility]) Repository 12/05/2016 DRUG SUCCINYLCHOLINE [place] [address] Other [id number]([facility]) Repository 08/25/2015 DRUG INSECT EXTRACTS [place] [address] Other [id number]([facility]) Repository 08/25/2015 DRUG/52452 MED-HIST [place] 100[address]([facility] Other D CT) [place] Repository NG/[id number] INSECT EXTRACTS [facility] 06([facility] CT) Repository NG/[id number] MED-HIST [facility] 06([facility] System [facility]) Repository NG/[id number] SUCCINYLCHOLINE [facility] 06(Intacct System CT) Repository ENCOUNTERS ENCOUNTERS ADMIT/DISCHARGE ACCOUNT NUMBER ADMITTING ENCOUNTER LOCATION SOURCE CLASS 08/13/2018 [id number] Ambulatory [facility] ding:CT Repository 08/13/2018 [id number] Ambulatory [facility] ding:LAB Repository 08/09/2018 [id number] Ambulatory [facility] ding:NS Repository 07/15/2018/07/29/20 [id number] Ambulatory [address] ding:NS Repository 06/25/2018/06/28/20 [id number] Ambulatory [address] ding:LAB Repository 05/21/2018/05/21/20 [id number] Ambulatory [address] ding:LAB Repository 05/14/2018/05/29/20 [id number] Ambulatory [address] ding:NS Repository 05/08/2018/05/08/20 [id number] Ambulatory [address] Other [place] Repository 05/08/2018/05/08/20 [id number] Ambulatory [address] MEDICAL Repository CENTERBuildi ng:AGCARDPHR A 04/30/2018 [id number] Ambulatory [facility] ding:BFHLAB Repository 04/18/2018/04/18/20 [id number] Ambulatory [place] ding:LAB Repository 04/09/2018 [id number] Ambulatory [facility] ding:LAB Repository 04/02/2018/04/28/20 [id number] Ambulatory [place] ding:NS Repository 03/28/2018/03/28/20 [id number] Ambulatory [place] ding:LAB Repository 03/12/2018/08/31/20 [id number] Ambulatory [place] [address] [facility] ding:NS Repository 03/12/2018/03/12/20 [id number] Ambulatory [place] [facility] [facility] ding:LAB Repository 02/18/2018/02/19/20 [id number] Ambulatory BMSBuilding: Nichol 18 [facility] Repository 02/14/2018/02/15/20 [id number] Ambulatory [place] 18 [facility] ding:LAB Repository 02/11/2018 [id number] Ambulatory BMSBuilding: Nichol BMS.[facility] Repository 01/17/2018/01/18/20 [id number] Ambulatory [place] 18 [facility] ding:LAB Repository 01/16/[id number] [facility] Other [place] Repository 01/16/2018/01/17/20 [id number] Ambulatory [address] MEDICAL Repository CENTERBuildi ng:AKXRCT 01/08/2018 [id number] Ambulatory Nichol Nichol [facility] ding:BFHLAB Repository 12/27/2017/12/28/19 [id number] Ambulatory [place] 18 [facility] ding:LAB Repository 11/29/2017/11/30/19 [id number] Ambulatory [place] 18 [facility] ding:PT Repository 11/29/2017/11/30/19 [id number] Ambulatory [place] 18 [facility] ding:LAB Repository 11/21/2017/11/22/19 [id number] Ambulatory [address] Other [place] Repository 11/21/2017/11/22/19 [id number] Ambulatory [address] MEDICAL Repository CENTERBuildi ng:AGCARDPHR A 11/14/2017/11/15/19 [id number] Ambulatory [place] 18 [facility] ding:LAB Repository 10/18/2017/10/19/19 [id number] Ambulatory [place] 18 [facility] ding:LAB Repository 10/11/2017 [id number] Ambulatory [facility] ding:MRI Repository 10/11/2017 [id number] Ambulatory [facility] ding:MRI Repository 10/01/2017 [id number] [facility] ding:MTRAD Repository 09/04/2017/09/04/[id number] ding:LAB Repository PAYERS PAYERS ENCOUNTER GUARANTOR PAYER SUBSCRIBER SOURCE 08/13/2018 [facility] [id number] Insurance:CARESOURCEP IIIDOB: [facility] Number: [id number] Hospital 35987Wxp: 330 [id number] Repository [phone] () Date:2018-08-07 [address]ATTN: [place] [address]OH: 08/13/2018 Secondary NOT GIVENUNK [place] Insurance:SELF PAY [facility] Number: Effective Repository Date:2018-08-07 08/13/2018 [facility] [id number] Insurance:CARESOURCEP IIIDOB: [facility] Number: [id number] Hospital 06568Ppa: (330 [id number] Repository [phone] () Date:2013-01-27 [address]ATTN: [place] [address]AK: 08/13/2018 Secondary NOT GIVENUNK Nichol Insurance:SELF PAY [facility] Number: Effective Repository Date:2018-07-01 08/09/2018 [facility] [id number] Insurance:CARESOURCEP IIIDOB: [facility] Number: [id number] Hospital 08336Fzx: 330 [id number] Repository [phone] () Date:2018-03-11 [address]ATTN: [place] [address]DS: 08/09/2018 Secondary NOT GIVENUNK [place] Insurance:SELF PAY [facility] Effective Repository Date:2018-07-30 07/15/2018 [facility] Nichol [id number] Insurance:CARESOURCEP IIIDOB: [facility] Number: [id number] Hospital [address]Wdv: 330 [id number] Repository [phone] () Date:2018-03-11[address]ATTN: [place] [address]QP: 07/15/2018 Secondary NOT GIVENUNK [place] Insurance:SELF PAY [facility] Number: Effective Repository Date:2018-05-30 06/25/2018 [facility] Nichol [id number] Insurance:CARESOURCEP IIIDOB: [facility] Number: [id number] Hospital [address]Lon: 330 [id number] Repository [phone] () Date:2013-01-27[address]ATTN: [place] [address]HX: 06/25/2018 Secondary NOT GIVENUNK [place] Insurance:SELF PAY [facility] Number: Effective Repository Date:2018-05-30 05/21/2018 [facility] Nichol [id number] Insurance:CARESOURCEP IIIDOB: [facility] Number: [id number] Hospital [address]36Wwd: 330 [id number] Repository [phone] () Date:2013-01-27[address]ATTN: [place] [address]TJ: 05/21/2018 Secondary NOT GIVENUNK Nichol Insurance:SELF PAY [facility] Number: Effective Repository Date:2018-05-01 05/14/2018 [facility] [place] [id number] Insurance:CARESOURCEP IIIDOB: [facility] Number: [id number] Hospital 06224Qcd: 330 [id number] Repository [phone] (HP) Date:2018-03-11 [address]ATTN: [place] [address]DP: 05/14/2018 Secondary NOT GIVENUNK [place] Insurance:SELF PAY [facility] Number: Effective Repository Date:2018-04-29 05/08/2018 ENRIQUE UGARTEOB: Primary ENRIQUE [facility] N Insurance:[facility] [id number] [facility] [address] MEDICAIDPolicy [address], Number: [place] [address]Pvw: [id number] Date: () 04/30/2018 [facility] [id number] Insurance:CARESOURCEP IIIDOB: [facility] Number: [id number] Hospital [address]Hmr: (330 [id number] Repository [phone] () Date:2018-04-30 [address]ATTN: [place] [address]UV: 04/30/2018 Secondary NOT GIVENUNK Nichol Insurance:SELF PAY [facility] Number: Effective Repository Date:2018-04-30 04/18/2018 [facility] [id number] Insurance:CARESOURCEP IIIDOB: [facility] Number: [id number] Hospital 54404Guf: 330 [id number] Repository [phone] (HP) Date:2013-01-27[address]ATTN: [place] [address]DU: 04/18/2018 Secondary NOT GIVENUNK [place] Insurance:SELF PAY [facility] Number: Effective Repository Date:2018-04-02 04/09/2018 [facility] Nichol [id number] Insurance:CARESOURCEP IIIDOB: [facility] Number: [id number] Hospital [address]Beh: [phone]) [id number] Repository [phone] () Date:2018-03-28[address]ATTN: [place] [address]UA: 04/09/2018 Secondary NOT GIVENUNK Nichol Insurance:SELF PAY [facility] Number: Effective Repository Date:2018-04-02 04/02/2018 [facility] Nichol [id number] Insurance:CARESOURCEP IIIDOB: [facility] Number: [id number] Hospital [address]8631Zjt: (330) [id number] Repository [phone] () Date:2018-03-11 [address]ATTN: [place] [address]KX: 04/02/2018 Secondary NOT GIVENUNK [place] Insurance:SELF PAY [facility] Number: Effective Repository Date:2018-03-30 03/28/2018 [facility] [place] [id number] Insurance:CARESOURCEP IIIDOB: [facility] Number: [id number] Hospital 04299Wai: [phone]) [id number] Repository [phone] () Date:2018-03-28[address]ATTN: [place] [address]NF: 03/28/2018 Secondary NOT GIVENUNK [place] Insurance:SELF PAY [facility] Hospital Number: Effective Repository Date:2018-03-28 03/12/2018 [facility] [place] [id number] Insurance:CARESOURCEP IIIDOB: [facility] Number: [id number] Hospital 79216Woo: (330) [id number] Repository [phone] () Date:2018-03-11P [address]ATTN: [place] [address]ZM: 03/12/2018 Secondary NOT GIVENUNK [place] Insurance:SELF PAY [facility] Number: Effective Repository Date:2018-03-11 03/12/2018 [facility] [id number] Insurance:CARESOURCEP IIIDOB: [facility] Number: [id number] Hospital 31151Nyr: 330 [id number] Repository [phone] () Date:2013-01-27P [address]ATTN: [place] [address]SL: 03/12/2018 Secondary NOT GIVENUNK [place] Insurance:SELF PAY [facility] Number: Effective Repository Date:2018-02-27 02/18/2018 [facility] [id number] Insurance:CARESOURCEP IIIDOB: [facility] Number: [id number] Hospital 70439Mbf: 330 [id number] Repository [phone] () Date:2017-07-18P [address]ATTN: [place] [address]NU: 02/18/2018 Secondary NOT GIVENUNK Nichol Insurance:SELF PAY [facility] Number: Effective Repository Date:2018-02-18 02/14/2018 [facility] [id number] Insurance:CARESOURCEP IIIDOB: [facility] Number: [id number] Hospital 20491Nqq: 330 [id number] Repository [phone] () Date:2013-01-27P [address]ATTN: [place] [address]ID: 02/14/2018 Secondary NOT GIVENUNK [place] Insurance:SELF PAY [facility] Hospital Number: Effective Repository Date:2018-01-25 02/11/2018 ENRIQUE MCNALLY Primary ENRIQUE MCNALLY [place] [id number] Insurance:CARESOURCEP IIIDOB: [facility] Number: [id number] Hospital [address]12[address]Sfa: 330 [id number] Repository [phone] () Date:2018-02-11P [address]ATTN: [place] [address]ED: 02/11/2018 Secondary NOT GIVENUNK Nichol Insurance:SELF PAY [facility] Number: Effective Repository Date:2018-02-11 01/17/2018 ENRIQUE MCNALLY Primary ENRIQUE MCNALLY [place] [id number] Insurance:CARESOURCEP IIIDOB: [facility] Number: [id number] Hospital [address]Cud: 330 [id number] Repository [phone] (HP) Date:2013-01-27 [address]ATTN: [place] [address]TO: 01/17/2018 Secondary NOT GIVENUNK Nichol Insurance:SELF PAY [facility] Number: Effective Repository Date:2017-12-27 01/16/2018 ENRIQUE MAENDOB: Primary ENRIQUERAMIREZENDOB: [facility] N Insurance:[facility] [id number] [facility] [place] MEDICAIDPolicy [address], [place]: [place] [address]Mky: [id number] Date: () 01/08/2018 ENRIQUE MCNALLY Primary ENRIQUE MCNALLY [place] [id number] Insurance:CARESOURCEP IIIDOB: [facility] Number: [id number] Hospital 53336Bzc: 330 [id number] Repository [phone] () Date:2018-01-08 [address]ATTN: [place] [address]HQ: 01/08/2018 Secondary NOT GIVENUNK Nichol Insurance:SELF PAY [facility] Number: Effective Repository Date:2018-01-08 12/27/2017 ENRIQUERAMIREZMoody HospitalESCALANTE [place] [id number] Insurance:CARESOURCEP IIIDOB: [facility] Number: [id number] Hospital 45261Cds: 330 [id number] Repository [phone] () Date:2017-12-13P [address]ATTN: [place] [address]WI: 12/27/2017 Secondary NOT GIVENUNK Nichol Insurance:SELF PAY [facility] Number: Effective Repository Date:2017-12-13 11/29/2017 [facility] DALI Nichol [id number] Insurance:CARESOURCEP IIIDOB: [facility] Number: [id number] Hospital 718[address]Ihy: (330 [id number] Repository [phone] () Date:2013-01-27P [address]ATTN: [place] [address]GH: 11/29/2017 Secondary NOT GIVENUNK Nichol Insurance:SELF PAY [facility] Number: Effective Repository Date:2017-10-22 11/29/2017 EN[facility] [place] [id number] Insurance:CARESOURCEP IIIDOB: [facility] Number: [id number] Hospital 397[address]Cql: (330 [id number] Repository [phone] () Date:2013-01-27P [address]ATTN: [place] [address]BO: 11/29/2017 Secondary NOT GIVENUNK Nichol Insurance:SELF PAY [facility] Number: Effective Repository Date:2017-11-27 11/21/2017 ENRIQUE [facility]MAG[facility]: Primary [facility] N Insurance:CARESOURCE [id number] [facility] [address] ALXPolbuena [facility] Number: Repository [facility] [id number] [place] [address]Lqn: Date: () 11/14/2017 [facility] [id number] Insurance:CARESOURCEP IIIDOB: [facility] Number: [id number] Hospital [address]Otu: (330) [id number] Repository [phone] () Date:2013-01-27[address]ATTN: [place] [address]MC: 11/14/2017 Secondary NOT GIVENUNK [place] Insurance:SELF PAY [facility] Hospital Number: Effective Repository Date:2017-10-29 10/18/2017 [facility] [id number] Insurance:CARESOURCEP IIIDOB: [facility] Number: [id number] Hospital 224[address]Ske: (330 [id number] Repository [phone] () Date:2013-01-27P [address]ATTN: [place] [address]KP: 10/18/2017 Secondary NOT GIVENUNK [place] Insurance:SELF PAY [facility] Number: Effective Repository Date:2017-09-28 10/11/2017 [facility] [id number] Insurance:CARESOURCEP IIIDOB: [facility] Number: [id number] Hospital 426[address]Dpm: (330 [id number] Repository [phone] () Date:2017-10-09P [address]ATTN: [place] [address]XL: 10/11/2017 Secondary NOT GIVENUNK [place] Insurance:SELF PAY [facility] Hospital Number: Effective Repository Date:2017-10-09 10/11/2017 [facility] [id number] Insurance:CARESOURCEP IiiDOB: [facility] Number: [id number] Hospital 839[address]Bed: (224) [id number] Repository [phone] () Date:2017-10-09P [address]ATTN: [place] [address]QU: 10/11/2017 Secondary NOT GIVENUNK [place] Insurance:SELF PAY [facility] Number: Effective Repository Date:2017-10-09 10/01/2017 [facility] [address] Insurance:CARESOURCEP IiiDOB: [facility] Number: [id number] Hospital [address]Jcg: 330 [id number] Repository [phone] () Date:2017-10-01P [address]ATTN: [place] [address]PH: 10/01/2017 Secondary NOT GIVENUNK [place] Insurance:SELF PAY [facility] Number: Effective Repository Date:2017-10-01 09/04/2017 [facility] Nichol [id number] Insurance:CARESOURCEP IiiDOB: [facility] Number: [id number] Hospital 29541Eht: 330 [id number] Repository [phone] () Date:2013-01-27P [address]ATTN: [place] [address]XM: 09/04/2017 Secondary NOT GIVENUNK [place] Insurance:SELF PAY [facility] Hospital Number: Effective Repository Date:2017-07-30
== END 2018-07-29 23:59 ==
LOC: NS 06:07
PROVIDERS: Family Provider Family Medicine; PCP Family Medicine; Visit Provider Internal Medicine Cardiovascular Disease
DX: E78.5 Hyperlipidemia, unspecified (principal); Z71.3 Dietary counseling and surveillance; I48.91 Unspecified atrial fibrillation; I48.92 Unspecified atrial flutter; Z79.01 Long term (current) use of anticoagulants
CPT/HCPCS: 36415; 85610; 97803

== ENCOUNTER 2018-08-13 12:44 | Outpatient (RCR) | payer MEDICAID, SELFPAY ==
[2018-08-13 14:23] LABS: International Normalized Ratio 2.2; Prothrombin Time (Protime)PT. 24.9 SECONDS (11.7-14.9)
== END 2018-08-13 14:00 | disposition home or self-care (01) ==
LOC: LAB 12:44
PROVIDERS: Family Provider Family Medicine; PCP Family Medicine; Referring Provider Internal Medicine Cardiovascular Disease; Visit Provider Internal Medicine Cardiovascular Disease
DX: I48.91 Unspecified atrial fibrillation (principal); I48.92 Unspecified atrial flutter; Z79.01 Long term (current) use of anticoagulants
CPT/HCPCS: 36415; 85610

== ENCOUNTER → 2018-08-13 12:58 | Outpatient (CLI) | payer MEDICAID, SELFPAY ==
--- NOTE | 2018-08-13 13:02 | CT_ITS ---
STUDY: CT CHEST WITH CONTRAST REASON FOR EXAM: Male, 63 years old. FOLLOW UP PULM NODULES. SOME VERTEBRAL COMPRESSIONS RADIATION DOSAGE (If Supplied By Facility): CTDIvol = ( 14.57 ) mGy, DLP = ( 347.76 ) mGycm TECHNIQUE: Transaxial imaging was performed following intravenous administration of 100ML ml of Isovue 300 contrast material. Individualized dose optimization techniques were used for this CT. COMPARISON: PA and lateral chest February 07, 2014. I do not have any studies regarding the testing between this time nor do I have reports of pulmonary nodules. Should more recent studies become available, an addendum can be made FINDINGS: Severe centrilobular emphysema is noted throughout both lungs. No defined suspicious pulmonary nodules There is no demonstrated pleural abnormality. Heart size is normal. Coronary artery calcifications are present. No pericardial effusion. Mildly prominent lymph nodes are noted in the perihilar region on the right, likely reactive. There is also a small pretracheal lymph node, image #56 series 2 measuring 1 x 0.85 cm. This is nonspecific. No axillary lymphadenopathy. Normal enhanced pulmonary arteries. Atherosclerosis of the aorta noted. No dissection. No aneurysm. No pulmonary embolus. Bone demineralization is noted. There is mild superior endplate compression of T5. There is slightly less than 50% vertebral body compression anteriorly of T9. There are prominent superior and inferior endplate Schmorl's nodes of T10. There is an approximate 50% anterior vertebral body compression of T12 with a prominent superior endplate Schmorl's node. No paraspinous soft tissue hematoma no sharply defined fracture lucency. These compressions can be seen on the chest x-ray February 07, 2014. Degenerative spondylosis with multilevel marginal osteophytes most prominent in the lower thoracic region noted. There is a cyst of the superior lateral upper pole of the left kidney measuring approximately [address]/Chest WITH Contrast IMPRESSION: Severe emphysema. No suspicious pulmonary nodules. Vertebral compressions that appear old with bony demineralization and degenerative spondylosis.. Electronically Signed: Karena Loredo MD at 10:49 EST , Service support ,
[2018-08-13 13:21] LABS: CREATININE FINGERSTICK 1.4 mg/dL (0.70-1.30)
== END ==
PROVIDERS: Family Provider Family Medicine; PCP Family Medicine; Referring Provider Family Medicine; Visit Provider Family Medicine
DX: R91.8 Other nonspecific abnormal finding of lung field (principal)
CPT/HCPCS: 36415; 71260; 85610; Q9967

== ENCOUNTER 2018-09-09 09:16 | Outpatient (RCR) | payer MEDICAID, SELFPAY ==
[2018-09-09 10:34] LABS: International Normalized Ratio 2.3; Prothrombin Time (Protime)PT. 25.4 SECONDS (11.7-14.9)
== END 2018-09-26 14:51 | disposition home or self-care (01) ==
LOC: LAB 09:16
PROVIDERS: Family Provider Family Medicine; PCP Family Medicine; Referring Provider Internal Medicine Cardiovascular Disease; Visit Provider Internal Medicine Cardiovascular Disease
DX: I48.91 Unspecified atrial fibrillation (principal); I48.92 Unspecified atrial flutter; Z79.01 Long term (current) use of anticoagulants
CPT/HCPCS: 36415; 85610

== ENCOUNTER 2018-09-09 10:00 | Outpatient (RCR) | payer MEDICAID, SELFPAY | END 2018-09-09 23:59 | disposition home or self-care (01) | LOC: NS 10:00 | PROVIDERS: Family Provider Family Medicine; PCP Family Medicine; Visit Provider Internal Medicine Cardiovascular Disease | DX: E78.5 Hyperlipidemia, unspecified (principal); Z68.20 Body mass index [BMI] 20.0-20.9, adult; Z79.01 Long term (current) use of anticoagulants; Z71.3 Dietary counseling and surveillance | CPT/HCPCS: 97803 ==

== ENCOUNTER 2018-10-14 07:25 | Outpatient (RCR) | payer MEDICAID, SELFPAY ==
[2018-10-14 08:33] LABS: Prothrombin Time (Protime)PT. 22.4 SECONDS (11.7-14.9)
== END 2018-10-14 08:25 | disposition home or self-care (01) ==
LOC: LAB 07:25
PROVIDERS: Family Provider Family Medicine; PCP Family Medicine; Referring Provider Internal Medicine Cardiovascular Disease; Visit Provider Internal Medicine Cardiovascular Disease
DX: I48.0 Paroxysmal atrial fibrillation (principal); Z79.01 Long term (current) use of anticoagulants
CPT/HCPCS: 36415; 85610

== ENCOUNTER → 2018-11-07 12:12 | Outpatient (CLI) | payer MEDICAID, SELFPAY ==
[2018-10-30 15:22] VITALS: BMI 21.9
--- NOTE | 2018-11-07 12:15 | RAD_ITS ---
STUDY: X-RAY - ABDOMEN/PELVIS REASON FOR EXAM: Male, 63 years old. Lower abdominal pain TECHNIQUE: KUB COMPARISON: None. FINDINGS: Normal visualized lung bases. There is an unremarkable bowel gas pattern. There is no demonstrated free abdominal air. The visualized liver, spleen and kidneys are grossly normal in size and morphology. Normal soft tissue structures. Normal visualized osseous structures. There is a left hip prosthesis. There is generalized osteopenia. There are faint hyperdensities projecting over the left iliac crest. RAD/Abdomen Single View IMPRESSION: Left hip prosthesis, generalized osteopenia Nonspecific bowel gas pattern. Faint hyperdensities projecting over the left iliac crest most likely ingested material. This is less likely artifact. Electronically Signed: Xu Maldonado, at 17:19 EDT Tel , Service support ,
== END ==
PROVIDERS: Family Provider Family Medicine; PCP Family Medicine; Referring Provider Family Medicine; Visit Provider Family Medicine
DX: R10.9 Unspecified abdominal pain (principal)
CPT/HCPCS: 74018

== ENCOUNTER 2018-11-11 06:10 | Outpatient (RCR) | payer MEDICAID, SELFPAY ==
[2018-10-30 15:22] VITALS: BMI 21.9
[2018-11-11 07:38] LABS: International Normalized Ratio 3.2
== END 2018-11-26 16:00 | disposition home or self-care (01) ==
LOC: LAB 06:10
PROVIDERS: Family Provider Family Medicine; PCP Family Medicine; Referring Provider Internal Medicine Cardiovascular Disease; Visit Provider Internal Medicine Cardiovascular Disease
DX: I48.0 Paroxysmal atrial fibrillation (principal); Z79.01 Long term (current) use of anticoagulants
CPT/HCPCS: 36415; 85610

== ENCOUNTER → 2018-11-20 | Outpatient (CLI) | payer MEDICAID, SELFPAY ==
[2018-10-30 15:22] VITALS: BMI 21.9
[2018-11-20 12:31] LABS: Hemoglobin A1c 5.2 % (4.2-6.3)
[2018-11-20 12:38] LABS: Absolute Lymphocyte Count 1.97 X10^3/ul (0.83-4.51); Absolute Neutrophil Count 4.8 X10^3/uL (2.0-7.7); Basophil# 0.05 X10^3/uL; Basophil% 0.6 % (0-1); Eosinophil# 0.35 X10^3/uL; Eosinophils% 4.4 % (0-5); Hematocrit 39.3 % (40-54); Hemoglobin 13.2 g/dl (13.0-16.5); Lymphocyte # 1.97 X10^3/ul (4.0); Lymphocyte % 24.9 % (19-41); Mean Corp Hgb Conc 33.6 g/gl (32-36); Mean Corpuscular Hgb 30.4 pg (27.0-32.0); Mean Corpuscular Volume 90.6 fL (80-94); Mean Platelet Vol. 10.1 fl (6.2-12.0); Monocyte# 0.68 X10^3/uL; Monocyte% 8.6 % (0-10); Neutrophil # 4.83 X10^3/uL (2.7-7.7); Neutrophil % 61.1 % (47-70); Platelet Count 365 K/mm3 (150-450); RBC Distribution Width CV 14.2 % (11.6-14.6); RBC Distribution Width SD 46.4 fl (35.1-43.9); Red Blood Count 4.34 M/mm3 (4.6-6.2); White Blood Count 7.9 K/mm3 (4.4-11.0)
[2018-11-20 12:40] LABS: POSITIVE COUNT NO; POSITIVE DIFFERENTIAL NO; POSITIVE MORPHOLOGY NO
[2018-11-20 15:57] LABS: Anion Gap 10 (5-15); BUN 9 mg/dL (7-18); BUN/Creat Ratio 8.4 RATIO (10-20); Calcium,Total 9.7 mg/dL (8.5-10.1); Chloride 98 mmol/L (98-107); Creatinine, Serum 1.07 mg/dL (0.70-1.30); EST Glomerular Filtration Rate 74 mL/min (>60); Est Glom Filt Rate - Afr Amer 90 mL/min (>60); Glucose 67 mg/dL (74-106); Potassium 4.2 mmol/L (3.5-5.1); Sodium Level 134 mmol/L (136-145); Thyroid Stim Hormone (TSH) 3.53 uIU/mL (0.358-3.74)
== END | disposition home or self-care (01) ==
LOC: BFHLAB 10:46
PROVIDERS: Family Provider Family Medicine; PCP Family Medicine; Visit Provider Family Medicine
DX: I10 Essential (primary) hypertension (principal); R73.01 Impaired fasting glucose; I48.91 Unspecified atrial fibrillation
CPT/HCPCS: 36415; 80048; 83036; 84443; 85025

== ENCOUNTER 2018-12-04 06:01 | Outpatient (RCR) | payer MEDICAID, SELFPAY ==
[2018-10-30 15:22] VITALS: BMI 21.9
[2018-12-04 07:32] LABS: Prothrombin Time (Protime)PT. 22.4 SECONDS (11.7-14.9)
== END 2018-12-04 07:01 | disposition home or self-care (01) ==
LOC: LAB 06:01
PROVIDERS: Family Provider Family Medicine; PCP Family Medicine; Referring Provider Internal Medicine Cardiovascular Disease; Visit Provider Internal Medicine Cardiovascular Disease
DX: I48.0 Paroxysmal atrial fibrillation (principal); Z79.01 Long term (current) use of anticoagulants
CPT/HCPCS: 36415; 85610

== ENCOUNTER 2019-01-10 05:58 | Outpatient (RCR) | payer MEDICAID, SELFPAY ==
[2018-10-30 15:22] VITALS: BMI 21.9
[2019-01-10 07:00] LABS: Prothrombin Time (Protime)PT. 22.7 SECONDS (11.7-14.9)
== END 2019-01-26 12:00 | disposition home or self-care (01) ==
LOC: LAB 05:58
PROVIDERS: Family Provider Family Medicine; PCP Family Medicine; Referring Provider Internal Medicine Cardiovascular Disease; Visit Provider Internal Medicine Cardiovascular Disease
DX: I48.0 Paroxysmal atrial fibrillation (principal); Z79.01 Long term (current) use of anticoagulants
CPT/HCPCS: 36415; 85610

== ENCOUNTER 2019-02-25 06:00 | Outpatient (RCR) | payer MEDICAID, SELFPAY ==
[2018-10-30 15:22] VITALS: BMI 21.9
[2019-02-07 07:14] LABS: International Normalized Ratio 1.6; Prothrombin Time (Protime)PT. 19.2 SECONDS (11.7-14.9)
[2019-02-25 07:36] LABS: International Normalized Ratio 1.5; Prothrombin Time (Protime)PT. 18.1 SECONDS (11.7-14.9)
== END 2019-02-26 16:27 | disposition home or self-care (01) ==
LOC: LAB 06:00
PROVIDERS: Family Provider Family Medicine; PCP Family Medicine; Referring Provider Internal Medicine Cardiovascular Disease; Visit Provider Internal Medicine Cardiovascular Disease
DX: I48.0 Paroxysmal atrial fibrillation (principal); Z79.01 Long term (current) use of anticoagulants
CPT/HCPCS: 36415; 85610

== ENCOUNTER 2019-03-05 06:18 | Outpatient (RCR) | payer MEDICAID, SELFPAY ==
[2018-10-30 15:22] VITALS: BMI 21.9
[2019-03-05 07:31] LABS: International Normalized Ratio 2.2; Prothrombin Time (Protime)PT. 24.3 SECONDS (11.7-14.9)
== END 2019-03-05 07:18 | disposition home or self-care (01) ==
LOC: LAB 06:18
PROVIDERS: Family Provider Family Medicine; PCP Family Medicine; Referring Provider Internal Medicine Cardiovascular Disease; Visit Provider Internal Medicine Cardiovascular Disease
DX: I48.0 Paroxysmal atrial fibrillation (principal); Z79.01 Long term (current) use of anticoagulants
CPT/HCPCS: 36415; 85610

== ENCOUNTER 2019-04-22 05:57 | Outpatient (RCR) | payer MEDICAID, SELFPAY ==
[2018-10-30 15:22] VITALS: BMI 21.9
[2019-04-01 07:51] LABS: International Normalized Ratio 1.9; Prothrombin Time (Protime)PT. 21.8 SECONDS (11.7-14.9)
[2019-04-22 07:58] LABS: International Normalized Ratio 2.6; Prothrombin Time (Protime)PT. 28.1 SECONDS (11.7-14.9)
== END 2019-04-28 18:00 | disposition home or self-care (01) ==
LOC: LAB 05:57
PROVIDERS: Family Provider Family Medicine; PCP Family Medicine; Referring Provider Internal Medicine Cardiovascular Disease; Visit Provider Internal Medicine Cardiovascular Disease
DX: I48.0 Paroxysmal atrial fibrillation (principal); Z79.01 Long term (current) use of anticoagulants
CPT/HCPCS: 36415; 85610

== ENCOUNTER 2019-05-20 09:29 | Outpatient (RCR) | payer MEDICAID, SELFPAY ==
[2018-10-30 15:22] VITALS: BMI 21.9
[2019-05-06 13:10] VITALS: BMI 21.6
[2019-05-12 07:20] LABS: International Normalized Ratio 3.3; Prothrombin Time (Protime)PT. 33.8 SECONDS (11.7-14.9)
[2019-05-20 10:26] LABS: International Normalized Ratio 2.5; Prothrombin Time (Protime)PT. 26.9 SECONDS (11.7-14.9)
== END 2019-05-20 18:00 | disposition home or self-care (01) ==
LOC: LAB 09:29
PROVIDERS: Family Provider Family Medicine; PCP Family Medicine; Referring Provider Internal Medicine Cardiovascular Disease; Visit Provider Internal Medicine Cardiovascular Disease
DX: I48.0 Paroxysmal atrial fibrillation (principal); Z79.01 Long term (current) use of anticoagulants
CPT/HCPCS: 36415; 85610

== ENCOUNTER → 2019-05-20 10:10 | Outpatient (CLI) | payer MEDICAID, SELFPAY ==
[2019-05-06 13:10] VITALS: BMI 21.6
--- NOTE | 2019-05-20 10:15 | BD_ITS ---
STUDY: DUAL ENERGY X-RAY ABSORPTIOMETRY / DXA REASON FOR EXAM: Male, 63 years old. Loss of height. Malnutrition. TECHNIQUE: Bone Mineral Density (BMD) measurements of lumbar spine and right hip were obtained. COMPARISON: None. FINDINGS: Lumbar Spine (L1-L4): g/cm2 (1.186) / T-score (-0.2) / Z-score (0.2) Findings are suggestive of normal bone density with a low fracture risk. Increased kyphosis. 50% loss of height of the superior endplate of the T9 and T12 vertebrae as well as approximately 70% loss of height of the L2 vertebrae. Right Femur Total: g/cm2 (0.740) / T-score (-2.5) / Z-score (-2.0) Right Femoral Neck: g/cm2 (0.779) / T-score (-2.2) / Z-score (-1.2) BD/DXA BONE DENS W/VERT FX ASMT IMPRESSION: The patient is considered osteopenic as outlined below according to World Vinod Organization (WHO) criteria with a high fracture risk. Reference Information: The T-score is the number of standard deviations above or below the standard which is normal for young adults at their peak bone mineral density. The World Health Organization (WHO) interprets the T-scores as follows: Above -1 Normal bone density Between -1 and -2.5 Osteopenia Equal to / or below -2.5 Osteoporosis As a practical clinical guideline, osteopenia may be graded as follows: Mild -1 through -1.5 Moderate -1.6 through -2.0 Severe -2.1 through -2.4 The Z-score is the number of standard deviations above or below age-matched controls. A Z-score of less than -1.5 would be considered abnormal. References: 1. NIH Osteoporosis and Related Bone Diseases http://www.osteo.org 2. International Society for Clinical Densitometry http://www.iscd.org 3. National Osteoporosis Foundation http://www.nof.org Electronically Signed: Jose Huang, at 12:41 EDT , Service support ,
== END ==
PROVIDERS: Family Provider Family Medicine; PCP Family Medicine; Referring Provider Family Medicine; Visit Provider Family Medicine
DX: S22.000A Wedge compression fracture of unspecified thoracic vertebra, initial encounter for closed fracture (principal); I48.0 Paroxysmal atrial fibrillation; Z79.01 Long term (current) use of anticoagulants
CPT/HCPCS: 36415; 77080; 77085; 85610

== ENCOUNTER → 2019-05-22 08:57 | Outpatient (CLI) | payer MEDICAID, SELFPAY ==
[2019-05-06 13:10] VITALS: BMI 21.6
[2019-05-22 13:21] LABS: AST(SGOT) 21 U/L (15-37); Alanine Aminotransfer ALT/SGPT 30 U/L (16-61); Albumin, Serum 4.1 g/dL (3.2-5.0); Alkaline Phosphatase 69 U/L (45-117); Anion Gap 4 (5-15); BUN 10 mg/dL (7-18); BUN/Creat Ratio 8.9 RATIO (10-20); Calcium,Total 9.1 mg/dL (8.5-10.1); Chloride 101 mmol/L (98-107); Creatinine, Serum 1.12 mg/dL (0.70-1.30); EST Glomerular Filtration Rate 70 mL/min (>60); Est Glom Filt Rate - Afr Amer 85 mL/min (>60); Glucose 91 mg/dL (74-106); Potassium 4.3 mmol/L (3.5-5.1); Protein, Total 8.1 g/dL (6.4-8.2); Sodium Level 134 mmol/L (136-145); T4 Free Direct 1.12 ng/dL (0.76-1.46); Thyroid Stim Hormone (TSH) 2.45 uIU/mL (0.358-3.74)
[2019-05-22 13:24] LABS: PTHIN 44.4 pg/mL (18.4-80.1)
== END ==
PROVIDERS: Family Provider Family Medicine; PCP Family Medicine; Visit Provider Family Medicine
DX: M81.0 Age-related osteoporosis without current pathological fracture (principal); S22.000A Wedge compression fracture of unspecified thoracic vertebra, initial encounter for closed fracture; I10 Essential (primary) hypertension; I48.91 Unspecified atrial fibrillation
CPT/HCPCS: 36415; 80053; 83970; 84403; 84439; 84443

== ENCOUNTER → 2019-06-04 12:02 | Outpatient (CLI) | payer MEDICAID, SELFPAY ==
[2019-06-04 11:00] VITALS: BMI 26.2
--- NOTE | 2019-06-04 12:17 | RAD_ITS ---
STUDY: X-RAY CHEST REASON FOR EXAM: Male, 63 years old. Hemoptysis. TECHNIQUE: PA and lateral views of the chest. COMPARISON: None. FINDINGS: 2.7 cm x 2.7 cm density in the right lower lung. Correlation with CT is recommended. Mild increased markings at the left lung base you have scarring. There is no demonstrated pleural abnormality. Normal size heart. Normal mediastinum and pam. Normal visualized pulmonary arteries. There is atherosclerotic calcification of the aortic arch with tortuosity. There is demineralization of the osseous structures. Increased kyphosis. Normal visualized ribs, clavicles, and shoulders. There is no demonstrated abnormality of the visualized soft tissue structures of the upper abdomen. RAD/Chest PA and Lateral IMPRESSION: I suspect a 2.7 cm x 2.7 cm nodular density at the right lung base. Correlation with CT is recommended if clinically indicated. Electronically Signed: Jose Huang, at 12:58 EST , Service support ,
[2019-06-04 13:07] LABS: Rheumatoid Factor < 10.0 IU/mL (<15)
[2019-06-06 04:08] LABS: Cytoplasmic Ab (C-ANCA) <1:20 titer (Neg:<1:20)
[2019-06-06 16:20] LABS: CCP IgG Antibodies 9 units (0-19); Perinuclear Ab (P-ANCA) <1:20 titer (Neg:<1:20)
[2019-06-06 16:29] LABS: ANTINUCLEAR ANTIBODIES DIRECT Negative (Negative)
== END ==
PROVIDERS: Family Provider Family Medicine; PCP Family Medicine; Referring Provider Internal Medicine Critical Care Medicine; Visit Provider Internal Medicine Critical Care Medicine
DX: R04.2 Hemoptysis (principal)
CPT/HCPCS: 36415; 71046; 86038; 86200; 86225; 86235; 86256; 86431

== ENCOUNTER 2019-06-04 12:13 | Outpatient (RCR) | payer MEDICAID, SELFPAY ==
[2019-05-06 13:10] VITALS: BMI 21.6
[2019-06-04 11:00] VITALS: BMI 26.2
[2019-06-04 12:51] LABS: International Normalized Ratio 3.1; Prothrombin Time (Protime)PT. 32.2 SECONDS (11.7-14.9)
== END 2019-06-04 18:00 | disposition home or self-care (01) ==
LOC: LAB 12:13
PROVIDERS: Family Provider Family Medicine; PCP Family Medicine; Referring Provider Internal Medicine Cardiovascular Disease; Visit Provider Internal Medicine Cardiovascular Disease
DX: I48.0 Paroxysmal atrial fibrillation (principal); R04.2 Hemoptysis; Z79.01 Long term (current) use of anticoagulants
CPT/HCPCS: 36415; 71046; 85610; 86038; 86200; 86225; 86235; 86256; 86431

== ENCOUNTER → 2019-06-06 14:02 | Outpatient (CLI) | payer MEDICAID, SELFPAY ==
[2019-06-04 11:00] VITALS: BMI 26.2
--- NOTE | 2019-06-06 14:03 | CT_ITS ---
STUDY: CT CHEST WITH CONTRAST REASON FOR EXAM: Male, 63 years old. One-month history of hemoptysis. RADIATION DOSAGE (If Supplied By Facility): CTDIvol = ( 14.12 ) mGy, DLP = ( 507.85 ) mGycm TECHNIQUE: Transaxial imaging was performed following intravenous administration of IV Isovue 300 100mL. Multiplanar coronal and sagittal images were reformatted. Individualized dose optimization techniques were used for this CT. COMPARISON: Comparison is made with prior study dated August 13, 2018. FINDINGS: Hyperinflation. There are emphysematous changes of the lungs with emphysematous blebs. This is worse in the upper lobes. Focal bronchiectasis in the medial aspect of the superior segment of the right lower lobe. There is no demonstrated pleural abnormality. Normal heart and pericardium. There are multiple small lymph nodes within the mediastinum, which are normal in size and morphology most compatible with reactive lymph hyperplasia. Normal hilar regions. Normal enhanced pulmonary arteries. There is atherosclerotic calcification of the aortic arch . There are multi-level degenerative changes of the thoracic spine. There is no demonstrated abnormality of the visualized upper abdomen. CT/Chest WITH Contrast IMPRESSION: Diffuse emphysematous changes worse in the upper lobes. No mass lesion is seen. Electronically Signed: Jose Huang, at 15:26 EST , Service support ,
== END ==
PROVIDERS: Family Provider Family Medicine; PCP Family Medicine; Referring Provider Internal Medicine Critical Care Medicine; Visit Provider Internal Medicine Critical Care Medicine
DX: R04.2 Hemoptysis (principal)
CPT/HCPCS: 71260; Q9967

== ENCOUNTER 2019-06-19 11:07 | Day surgery (SDC) | payer MEDICAID, SELFPAY ==
[2019-06-11 10:48] VITALS: BMI 26.2
[2019-06-19] VITALS (7 sets, daily range): BP systolic 97–129; BP diastolic 77–91; PULSE 60–72; RESP 15–20; TEMP 36.3–36.5; O2SAT 96–100; BMI 25.3
--- NOTE | 2019-06-19 | FLU_PTH ---
PATIENT: ENRIQUE MCNALLY III LOC: EN U#:[id number] AGE/SX: 63/M ROOM: RE06/19/[address]: Dr. Dash Uriarte DO : 1955 BED: DIS: 06/19/2019 SPEC #: [id number] RECD: 06/19/19 13:58 STATUS: LUKE REQ #: [id number] DERRICK: 06/19/19 00:[address]: Dash Uriarte DEPT: CYTOLOGY RECD BY: Ben Andino ENTERED: 06/19/19 13:59 SP TYPE: Fluid OTHR DR: Dr. Neeraj Daugherty MD Tissues: Bronchus of right lower lobe Procedures: Special Stain Group II Special Stain Group I Surgery Specimen Level IV AFB Stain (control) GMS Stain (control) Cytospin Fluid HEADER OPERATION: Bronchoscopy (MAC) PRE-OP DIAGNOSIS: Hemoptysis TISSUE SUBMITTED: Bronchioalveolar lavage RLL for cytology DIAGNOSIS CYTOLOGY Bronchioalveolar lavage, right lower lobe of lung (cytospin and cell block): Negative for malignant cells. Negative for acid-fast bacilli and fungal organisms. AM:erin 06/20/19 COMMENT AFB and GMS stains with matched controls support the above diagnosis. CYTOLOGY STUDY Slides are reviewed. CYTOLOGY GROSS Received is 30 ml of lópez cloudy fluid labeled with the patient's name and and designated per the requisition as RLL. Submitted for cytology preparation including cell block. / erin 06/19/19 TC:5 CPT: 21256, 43780, 69050 x2
--- NOTE | 2019-06-19 07:47 | HP.PCM_ITS ---
History of Present Illness Date of Admission: 06/19/19 Chief Complaint: Hemoptysis The patient is a 63-year-old male who initially presented to the pulmonary medicine clinic at the beginning of May 2019 for the evaluation of hemoptysis. The patient does have a known history of atrial fibrillation and DVT, for which he is systemically anticoagulated on Coumadin. The patient was previously evaluated by ENT who performed a video laryngoscopy which revealed no etiology for the patient's hemoptysis. The patient has a smoking history of 40 to 50 pack years, having quit completely in April 2019. The patient denied a previous history of TB exposure. A CT chest was obtained on June 06, 2019 which did demonstrate diffuse emphysematous changes bilaterally along with a focal area of bronchiectasis in the right lower lobe. No nodule or mass was identified. The patient then followed up with our nurse practitioner on June 11, at which time, the patient once again reported that he was having daily episodes of hemoptysis. Therefore, the decision was made to pursue airway evaluation via bronchoscopy. 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) Tobacco dependence (Chronic) Bradycardia (Chronic) Medical History: Medical History (Last Reviewed 06/11/19 @ 10:57 by BONNY Sierra) Essential hypertension (Chronic) I10 Paroxysmal atrial tachycardia (Chronic) I47.1 Paroxysmal atrial fibrillation (Chronic) I48.0 Tachycardia (Resolved) R00.0 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) Z79.01 Tobacco dependence (Chronic) F17.200 Bradycardia (Chronic) R00.1 Near syncope (Resolved) GERD (gastroesophageal reflux disease) K21.9 Type 2 diabetes mellitus E11.9 Gout M10.9 History of DVT (deep vein thrombosis) Z86.718 Afib (Inactive) I48.91 Hypertension (Inactive) I10 Allergies secobarbital sodium [From Secon[place]] Allergy (Verified 06/18/19 08:45) Unknown venom-honey bee [bee venom (honey bee)] Allergy (Verified 06/18/19 08:45) Anaphylaxis Home Medications: Ambulatory Orders Medication Instructions Recorded omeprazole 20 mg tablet,delayed 20 mg PO QDAY 02/11/18 release furosemide 40 mg tablet 40 mg PO DAILY #90 tab 05/06/19 potassium chloride ER 10 mEq 10 meq PO DAILYCM #90 tab 05/06/19 tablet,extended release(part/cryst) Allopurinol [Zyloprim] 100 mg PO DAILY 06/18/19 Diltiazem HCl [Diltiazem 24Hr ER 120 mg PO BID 06/18/19 (Cd)] Dofetilide 500 mcg PO BID 06/18/19 Austin-3/Dha/Epa/Fish Oil [Austin 3 1 ea PO DAILY 06/18/19 500 Softgel] Warfarin Sodium 4 mg PO MO 06/18/19 Warfarin Sodium 5 mg PO SUTUWETHFRSA 06/18/19 Surgical History: Surgical History (Last Reviewed 06/11/19 @ 10:57 by BONNY Sierra) History of left hip replacement Z96.642 History of cardiac radiofrequency ablation Onset Date: ~04/2008 Z98.890 Status post peripheral artery angioplasty Z98.62 Right common femoral 05/28/08; right external iliac artery Surgical History: - - cardioversion in the past, broken nose,broken and replaced left hip Smoking Status: Former smoker Tobacco Use: Non-smoker - *Family History Maternal Family History: Family History (Last Reviewed 06/11/19 @ 10:57 by BONNY Sierra) Mother Diabetes Hypertension Myocardial infarction History Items: - - mother with diabetes, cad,pancreatitis Paternal Family History: Family History (Last Reviewed 06/11/19 @ 10:57 by BONNY Sierra) Mother Diabetes Hypertension Myocardial infarction History Items: - - reports states dad of blood clot in the bowel Review of Systems Constitutional: Denies: Chills, Fever, Weight Change HEENT: Denies: Head Aches, Sinus Congestion, Sinus Drainage Cardiovascular: Denies: Chest Pain, Palpitations Respiratory: Reports: Cough, Hemoptysis Gastrointestinal: Denies: Abdominal Pain, Nausea, Vomiting Genitourinary: Denies: Dysuria Musculoskeletal: Denies: Joint Pain, Joint Tenderness Skin: Denies: Rash, Wounds Neurological: Denies: Numbness, Tingling, Focal weakness Psychiatric: Denies: Anxiety, Depression, Homicidal Ideations, Suicidal Ideations Hematologic/ Lymphatic: Reports: Hx of blood clot VTE Information - Inpt Only VTE Present on Admission: No VTE Mechan Device Prophylaxis: None VTE Pharm Prophylaxis ordered?: No Reason prophylaxis not ordered:: Treatment Not Indicated - Physical Exam Vitals/I&O's: Body Mass Index (BMI) 26.2 General: Alert, Cooperative, No apparent distress HEENT: Atraumatic, Normocephalic Oral: Moist Mucosa Neck: Supple, No Nodes, Trachea Midline Lungs: No rhonchi, No wheeze, No rales, Diminished Cardiovascular: Regular rate, Regular Rhythm, Normal S1, Normal S2 Abdomen: Bowel Sounds Present, Soft, Non Tender Extremities: No clubbing, No cyanosis, No edema Skin: No breakdown Musculoskeletal: No Muscle Wasting Lymphatic: No Cervical, Supraclavicular, or Inguinal Adenopathy Neurological: Neuro grossly intact Psych/Mental Status: Normal Affect, Appropriate Assessment/Plan All Active Problems (Last Reviewed 06/11/19 @ 10:57 by Angelita Macedo NP-Rubin) Hemoptysis (Acute) Tachycardia (Resolved) Near syncope (Resolved) Assessment & Plan 1. Hemoptysis R04.2 Plan The patient has essentially been experiencing intermittent episodes of hemoptysis, which began last month. The exact etiology for these episodes is unclear. Upper airway evaluation by ENT completed previously was unremarkable. Recent CT chest revealed a focal area of bronchiectasis in the right lower lobe along with bilateral emphysematous changes. No nodules, masses or endobronchial lesions were identified. INR was last noted to be 3.1 on June 04. Autoimmune and vasculitis panel were negative. Given the undifferentiated etiology for the patient's hemoptysis, plan will be to proceed with bronchoscopy along with possible lavage and/or endobronchial biopsies, depending on findings. The patient's Coumadin has been on hold x5 days. Risks and benefits of the procedure were discussed with the patient. The patient is in agreement to proceed. Questions were answered accordingly.
[2019-06-19 11:30] LABS: Prothrombin Time Fingerstick 16.1 SEC (11.9-14.4)
[2019-06-19 11:41] LABS: Bedside Glucose 75 mg/dL (70-110)
[2019-06-19] MEDS: Lactated Ringers 1,000 ML 100 ML IV (11:59)
--- NOTE | 2019-06-19 13:10 | OP.BRONCH_ITS ---
Patient Name: Roger Mart Procedure Date: 06/19/2019 12:03 PM Date of : 1955 Age: 63 Procedure: Bronchoscopy Indications: Hemoptysis with normal CXR Providers: Dash Uriarte MD Referring MD: Neeraj Daugherty Medicines: Monitored Anesthesia Care Complications: No immediate complications Procedure: Pre-Anesthesia Assessment: - A History and Physical has been performed. Patient meds and allergies have been reviewed. The risks and benefits of the procedure and the sedation options and risks were discussed with the patient. All questions were answered and informed consent was obtained. Patient identification and proposed procedure were verified prior to the procedure by the physician and the nurse in the procedure room. Mental Status Examination: alert and oriented. Airway Examination: normal oropharyngeal airway. Respiratory Examination: clear to auscultation. CV Examination: RRR, no murmurs, no S3 or S4. ASA Grade Assessment: II - A patient with mild systemic disease. After reviewing the risks and benefits, the patient was deemed in satisfactory condition to undergo the procedure. The anesthesia plan was to use monitored anesthesia care (MAC). Immediately prior to administration of medications, the patient was re-assessed for adequacy to receive sedatives. The heart rate, respiratory rate, oxygen saturations, blood pressure, adequacy of pulmonary ventilation, and response to care were monitored throughout the procedure. The physical status of the patient was re-assessed after the procedure. After I obtained informed consent, the scope was passed under direct vision. Throughout the procedure, the patient's blood pressure, pulse, and oxygen saturations were monitored continuously. The bronchoscope was introduced through the mouth and advanced to the tracheobronchial tree. Findings: Bilateral Lung Abnormalities: Notable, mucoid, thick secretions were found throughout the tracheobronchial tree. They were not obstructing the airway. Erythema was found in the left upper lobe. Erythema was found in the right lower lobe. No focal source of bleeding was identified. There were no endobronchial lesions present. Bronchoalveolar lavage was performed in the right lower lobe of the lung and sent for cell count, bacterial culture, viral smears & culture, and fungal & AFB analysis. 60 mL of fluid were instilled. 40 mL were returned. The return was mucoid. Impression: - Hemoptysis with normal CXR - Notable, mucoid, thick secretions were found throughout the tracheobronchial tree. - Erythema was present in the left upper lobe. - Erythema was present in the right lower lobe. - Bronchoalveolar lavage was performed. Recommendation: - Await BAL results. - Follow up with bronchoscopist as previously scheduled. Procedure Code(s): --- Professional --- 47514, Bronchoscopy, rigid or flexible, including fluoroscopic guidance, when performed; with bronchial alveolar lavage Diagnosis Code(s): --- Professional --- R04.2, Hemoptysis R09.89, Other specified symptoms and signs involving the circulatory and respiratory systems CPT copyright 2017 [employer] [place] [employer]. All rights reserved. The codes documented in this report are preliminary and upon program associate review may be revised to meet current compliance requirements. DO Dash Michael MD 06/19/2019 1:10:25 PM This report has been signed electronically. Number of Addenda: 0 Note Initiated On: 06/19/2019 12:03 PM
== END 2019-06-19 13:46 | disposition home or self-care (01) ==
LOC: EN 11:07 → AC 11:08
PROVIDERS: Family Provider Family Medicine; PCP Family Medicine; Referring Provider Family Medicine; Visit Provider Internal Medicine Critical Care Medicine
PROC: 0BJ08ZZ Inspection of Tracheobronchial Tree, Via Natural or Artificial Opening Endoscopic (ICD-10-PCS; CPT 31622; principal; 2019-06-19 12:15)
DX: R04.2 Hemoptysis (principal); R09.89 Other specified symptoms and signs involving the circulatory and respiratory systems; I10 Essential (primary) hypertension; I48.0 Paroxysmal atrial fibrillation; I47.1 Supraventricular tachycardia; E11.9 Type 2 diabetes mellitus without complications; M10.9 Gout, unspecified; K21.9 Gastro-esophageal reflux disease without esophagitis; Z86.718 Personal history of other venous thrombosis and embolism; Z79.01 Long term (current) use of anticoagulants; Z79.899 Other long term (current) drug therapy; Z87.891 Personal history of nicotine dependence
CPT/HCPCS: 31624; 36416; 82962; 85610; 88108; 88305; 88312; 88313; J7120

== ENCOUNTER → 2019-06-20 07:37 | Outpatient (CLI) | payer MEDICAID, SELFPAY ==
[2019-06-11 10:48] VITALS: BMI 26.2
[2019-06-19 11:45] VITALS: BMI 25.3
--- NOTE | 2019-06-23 07:44 | PFT ---
INTRODUCTION: The patient is a 63-year-old male that presents for pulmonary function studies secondary to a diagnosis of shortness of breath. Respiratory therapy reports good patient effort. Bronchodilators were used during testing. INTERPRETATION: Forced expiration spirometry demonstrates the presence of a mild large airways obstructive ventilatory defect. There was a partial, albeit technically nonsignificant, response to aerosolized bronchodilators. Spirograms are of fair quality and do not plateau indicating slow emptying of the lungs. Body plethysmography was performed. However, the values reported are likely spurious in nature. Diffusing capacity by single breath CO is at the lower limits of normal. IMPRESSION: Mild large airways obstructive ventilatory defect with near significant bronchodilator response. Diffusing capacity is at the lower limits of normal.
== END ==
PROVIDERS: Family Provider Family Medicine; PCP Family Medicine; Referring Provider Nurse Practitioner Acute Care; Visit Provider Nurse Practitioner Acute Care
DX: R06.02 Shortness of breath (principal)
CPT/HCPCS: 94060; 94726; 94729

== ENCOUNTER → 2019-06-24 11:57 | Outpatient (CLI) | payer MEDICAID, SELFPAY ==
[2019-06-24 08:40] VITALS: BMI 26.4
== END ==
PROVIDERS: Family Provider Family Medicine; PCP Family Medicine; Referring Provider Nurse Practitioner Acute Care; Visit Provider Nurse Practitioner Acute Care
DX: J47.9 Bronchiectasis, uncomplicated (principal)
CPT/HCPCS: 94667

== ENCOUNTER 2019-07-16 06:46 | Outpatient (RCR) | payer MEDICAID, SELFPAY ==
[2019-06-24 08:40] VITALS: BMI 26.4
[2019-07-02 12:55] LABS: Absolute Lymphocyte Count 1.79 X10^3/uL (0.83-4.51); Absolute Neutrophil Count 4.5 X10^3/uL (2.0-7.7); Basophil# 0.08 X10^3/uL; Basophil% 1.1 % (0-1); Eosinophil# 0.35 X10^3/uL; Eosinophils% 4.7 % (0-5); Hematocrit 41.3 % (40-54); Hemoglobin 13.6 g/dL (13.0-16.5); Lymphocyte # 1.79 X10^3/ul (4.0); Lymphocyte % 24.3 % (19-41); Mean Corp Hgb Conc 32.9 g/dL (32-36); Mean Corpuscular Hgb 30.8 pg (27.0-32.0); Mean Corpuscular Volume 93.7 fL (80-94); Mean Platelet Vol. 10.1 fl (6.2-12.0); Monocyte# 0.63 X10^3/uL; Monocyte% 8.5 % (0-10); NRBC Flagged by Analyzer 0 % (0-5); Neutrophil # 4.49 X10^3/uL (2.7-7.7); Platelet Count 248 K/mm3 (150-450); RBC Distribution Width CV 13.3 % (11.6-14.6); RBC Distribution Width SD 45.6 fl (35.1-43.9); Red Blood Count 4.41 M/mm3 (4.6-6.2); White Blood Count 7.4 K/mm3 (4.4-11.0)
[2019-07-02 13:06] LABS: International Normalized Ratio 2.9; Prothrombin Time (Protime)PT. 30.1 SECONDS (11.7-14.9)
[2019-07-16 09:16] LABS: International Normalized Ratio 2.7; Prothrombin Time (Protime)PT. 28.8 SECONDS (11.7-14.9)
== END 2019-07-16 18:00 | disposition home or self-care (01) ==
LOC: LAB 06:46
PROVIDERS: Family Provider Family Medicine; PCP Family Medicine; Referring Provider Internal Medicine Cardiovascular Disease; Visit Provider Internal Medicine Cardiovascular Disease
DX: I48.0 Paroxysmal atrial fibrillation (principal); R04.2 Hemoptysis; Z79.01 Long term (current) use of anticoagulants
CPT/HCPCS: 36415; 85025; 85610

== ENCOUNTER 2019-08-09 18:52 | Emergency (ER) | payer MEDICAID, SELFPAY ==
[2019-06-24 08:40] VITALS: BMI 26.4
[2019-08-09 18:54] VITALS: BP 113/72; PULSE 99; RESP 17; TEMP 37.4; O2SAT 97; BMI 26.8
--- NOTE | 2019-08-09 19:21 | RAD_ITS ---
STUDY: X-RAY - THORACIC SPINE REASON FOR EXAM: Male, 64 years old. BACK PAIN X1 WEEK TECHNIQUE: 3 view(s) of the thoracic spine were obtained. COMPARISON: CT of the chest dated August 13, 2018 FINDINGS: Normal kyphosis of the thoracic spine. There is no substantial scoliosis. Several chronic compression deformities of the thoracic vertebra are reidentified. The bony structures are demineralized. No visualized acute fracture. No visualized aggressive process. No displaced fragments are seen. Minor disc space narrowing is seen at several levels The soft tissue structures are unremarkable. RAD/Thoracic Spine 3 Views IMPRESSION: Several chronic compression deformities of the thoracic spine which were present on the CT of the chest dated August 13, 2018. No new abnormalities are seen by x-ray. Electronically Signed: Wayne Amin MD at 21:00 EST , Service support ,
--- NOTE | 2019-08-09 19:24 | ED.DCSUM_ITS ---
- ER Visit Summary Date of Service: 08/09/19 Chief Complaint: Back pain History of Present Illness: The patient is a 64 M who presents with back pain. He states it started a week ago. Is gradually gotten worse. It sharp in the thoracic and upper lumbar region. Pain is worse with movement. He denies any numbness or tingling in his arms or legs. No bowel or bladder incontinence. He tried ibuprofen and gabapentin at home without any relief. He is on Coumadin but denies any bloody stools, hemoptysis. He has a history of fractures in his back about a year and 1/2 to 2 years ago. He did physical therapy and has had no issues with it since then. Physical Examination: Vital signs reviewed. HEENT exam unremarkable. Heart is regular rate and rhythm without murmurs. Lungs are clear to auscultation. Abdomen is soft and nontender. His back is nontender to palpation. Extremities reveal no edema. Skin exam normal. Neurologic exam normal. Test Results: X-ray of the thoracic spine reveals chronic compression fractures but no new findings Emergency Department Course and Treatment: Patient was given [place] and Flexeril. He states that these help with his pain. I will send him home with short courses of both. He states he is going to call his doctor on Sunday to get a referral back to pain management Treatment Plan: [] Disposition: Discharge Impression: Thoracic back pain This note was generated with [employer] dictation software. It may contain incorrect words, spelling, and punctuation that were not noted in review of the chart prior to signing ED Disposition - Plan for ED Patient: Disposition: Home or Assisted Living Instructions: BACK PAIN (Acute or Chronic) Prescriptions: cycloBENZAPRine HCl [Flexeril] 10 mg PO TID PRN #20 tab PRN Reason: Muscle Spasm Transmission Status: Pending to [facility] Hydrocodone Bitart/Apap 5-325 [[place]ston 5MG-325MG] 1 tablet PO Q4H PRN PRN 3 Days #10 tablet PRN Reason: Pain Transmission Status: Sent to [facility] Referrals: Neeraj Daugherty MD [Primary Care Provider] -
[2019-08-09] MEDS: cycloBENZAPRine HCl 10 MG Tablet PO (19:46)
[2019-08-09] MEDS: HYDROcodone Bitartrate/Apap 5/325 Tablet PO (19:46)
[2019-08-09 21:51] VITALS: BP 117/73; PULSE 84; RESP 15; O2SAT 96
== END 2019-08-09 21:51 | disposition home or self-care (01) ==
PROVIDERS: Emergency Provider Emergency Medicine; Family Provider Family Medicine; PCP Family Medicine
DX: M54.6 Pain in thoracic spine (principal); J44.9 Chronic obstructive pulmonary disease, unspecified; I10 Essential (primary) hypertension; Z79.01 Long term (current) use of anticoagulants; Z79.899 Other long term (current) drug therapy; Z72.0 Tobacco use
CPT/HCPCS: 72072; 99283

== ENCOUNTER → 2019-08-14 10:27 | Outpatient (CLI) | payer MEDICAID, SELFPAY ==
[2019-08-09 18:54] VITALS: BMI 26.8
[2019-08-14 12:32] LABS: Prothrombin Time (Protime)PT. 62.7 SECONDS (11.7-14.9)
[2019-08-14 13:08] LABS: International Normalized Ratio 7.2
== END ==
PROVIDERS: PCP Family Medicine; Referring Provider Family Medicine; Visit Provider Internal Medicine Cardiovascular Disease
DX: I47.1 Supraventricular tachycardia (principal); Z79.01 Long term (current) use of anticoagulants
CPT/HCPCS: 85610

== ENCOUNTER 2019-08-18 05:59 | Outpatient (RCR) | payer MEDICAID, SELFPAY ==
[2019-06-24 08:40] VITALS: BMI 26.4
[2019-08-18 07:01] LABS: International Normalized Ratio 3.1; Prothrombin Time (Protime)PT. 32.5 SECONDS (11.7-14.9)
== END 2019-08-18 18:00 | disposition home or self-care (01) ==
LOC: LAB 05:59
PROVIDERS: Family Provider Family Medicine; PCP Family Medicine; Referring Provider Internal Medicine Cardiovascular Disease; Visit Provider Internal Medicine Cardiovascular Disease
DX: I48.0 Paroxysmal atrial fibrillation (principal); Z79.01 Long term (current) use of anticoagulants
CPT/HCPCS: 36415; 85610

== ENCOUNTER 2019-09-02 09:00 | Outpatient (RCR) | payer MEDICAID, SELFPAY ==
[2019-08-18 11:54] VITALS: BMI 25.7
--- NOTE | 2019-08-22 11:02 | HP.PTEVAL_ITS ---
Patient's Visit Information ENRIQUE MCNALLY III is a 64 year old M referred to Physical Therapy by Neeraj Daugherty MD with a diagnosis of PAIN IN THORACIC SPINE. Date of Evaluation: 08/22/19 Physical Therapist: Anthony Camacho, PT, Cert MDT, OCS - Visit Plan Frequency: 2x /Week Duration: 4 Weeks Plan: PT INTERVETIONS THORACIC /POSTURAL EX'S,MOADLTIES,BUE STRENGTHENING - Subjective Findings: This 64 y/o male presnest to physical therpay with thoracic pain. Patient developed thoracic pain Aug 03 . Patient has h/o thoracic and lumbar compression fracture with osteoporosis. Patient seen DR witt x-rays didnt show new fractures.Recommended PT with muscle relaxers and hydrocodine.Aggraveting factors worse with walking and standing 10mins ,bending,lifting. Alleviating factors sitting/resting. Symptoms affects sleeping .Patient denies parathesia/tingling. Bowel/bladder -. Cooughing /sneezing-. Patient symptoms affects QOL and function and ADL'S. Patient has several comrorbities LEFT THR,osteoprosis. SOCIAL: single. VOCATION: retired - Pain Bilateral Back Pain Intensity (Out of 10): 7 Pain Intensity Range: 10 - Objective POSTURE: mod thoracic kyphosis. GAIT: reciprocal pattern foward posture. NEURO: denies parathesia/tingling ,reflexes intact. BUE: grossly WFL. MMT: BUE 4/5 except shoulders 4-/5. THORACIC ROM: flexion min/mod,extenison severe,rotation mod loss. PALPATION: tender paraspinals - Goals Goal 1:: Independant with HEP Goal Time Frame: 4-6 Weeks Goal 2:: Improve posture for ADL'S Goal Time Frame: 4-6 Weeks Goal 3:: Decrease thoracic pain by 50% or > to improve function wth walking and standing Goal Time Frame: 4-6 Weeks Goal 4:: Patient improve thoracic ROM for function of recovery Goal Time Frame: 4-6 Weeks Goal 5:: Patient to improve back owestry scor by 5 points or > to improve QOL. Goal Time Frame: 4-6 Weeks Goal 6:: Patient able to walk and stand > 10 min to omprove ADL'S. Goal Time Frame: 4-6 Weeks - Rehabilitation Potential Physical Therapy Diagnosis: This patient has thoracic pain with h/o compression fractures and osteoprosis ,most recently had x-rays which where - for new compression fractures with pain,poor ROM,strength impairs ADLS' housework task Rehabilitation Potential: Good - Anticipated Interventions Patient/Client Instruction: Educate patient on: Condition, Plan of Care For the Purpose of:: To decrease pain, To increase ROM, To improve ability to perform ADL's, To increase tolerance to activity/condition/position, To improve ability of physical actions for home/community/work/leisure, To improve health of tissue, To decrease soft tissue restriction, To reduce risk of recurrence, To improve ability to perform tasks related to life management Therapeutic Exercise to Include: Strength training, Body mechanics, Postural training, Flexibilty training, Active ROM For the Purpose of:: To decrease pain, To increase ROM, To improve muscle performance and motor function, To improve ability to perform ADL's, To increase tolerance to activity/condition/position, To improve ability of physical actions for home/community/work/leisure, To improve health of tissue, To decrease soft tissue restriction, To increase flexibility/ROM, To improve ability to perform tasks related to life management TENS: Yes IF ES: Yes Cryotherapy (ice pack, ice massage): Yes Thermo therapy (hot pack): Yes Ultrasound (thermal/non thermal): Yes For the Purpose of:: To decrease pain, To increase ROM, To improve nutrient delivery to tissue, To increase oxygenation perfusion, To improve health of tissue, To decrease soft tissue restriction Thank you for the opportunity to evaluate your patient. For Medicare and Medicare HMO plans, please review the plan of care and approve it. It will need to be FAXED BACK to us at [phone] for Medicare purposes. For Medicare only, by signing this I certify the plan of care. Please let me know if there are questions or concerns regarding this plan of care. Physician Signature: Date:___
--- NOTE | 2019-11-24 15:48 | HP.PT.NRP ---
ENRIQUE MCNALLY III was seen in my office for initial evaluation on 08/22/19. The following Plan of Care was established for this patient: Initial Frequency: 2x /Week Initial Duration: 4 Weeks Patient/Client Instruction: Educate patient on: Condition, Plan of Care For the Purpose of:: To decrease pain, To increase ROM, To improve ability to perform ADL's, To increase tolerance to activity/condition/position, To improve ability of physical actions for home/community/work/leisure, To improve health of tissue, To decrease soft tissue restriction, To reduce risk of recurrence, To improve ability to perform tasks related to life management Therapeutic Exercise to Include: Strength training, Body mechanics, Postural training, Flexibilty training, Active ROM For the Purpose of:: To decrease pain, To increase ROM, To improve muscle performance and motor function, To improve ability to perform ADL's, To increase tolerance to activity/condition/position, To improve ability of physical actions for home/community/work/leisure, To improve health of tissue, To decrease soft tissue restriction, To increase flexibility/ROM, To improve ability to perform tasks related to life management TENS: Yes IF ES: Yes Cryotherapy (ice pack, ice massage): Yes Thermo therapy (hot pack): Yes Ultrasound (thermal/non thermal): Yes For the Purpose of:: To decrease pain, To increase ROM, To improve nutrient delivery to tissue, To increase oxygenation perfusion, To improve health of tissue, To decrease soft tissue restriction This patient was last seen in our office . Pertinent comments regarding their Physical therapy will appear below: Patient seen for PT for thoracic pain focusing on postural ex's,thoracic strengthening and modalties. Doing well pain 09/08 ,thus is d/c At this point I will be discontinuing this patient from physical therapy. I would be happy to see this patient again in the future if found appropriate by the physician. Thank you! Anthony Camacho, PT, Cert MDT, OCS
== END 2019-09-02 19:00 | disposition home or self-care (01) ==
LOC: PT 09:00
PROVIDERS: PCP Family Medicine; Referring Provider Family Medicine; Visit Provider Family Medicine
DX: M54.6 Pain in thoracic spine (principal)
CPT/HCPCS: 97110; 97162

== ENCOUNTER → 2019-09-08 13:43 | Outpatient (CLI) | payer MEDICAID, SELFPAY ==
[2019-08-18 11:54] VITALS: BMI 25.7
[2019-09-08 15:42] LABS: Anion Gap 7 (5-15); BUN 15 mg/dL (7-18); Calcium,Total 9.7 mg/dL (8.5-10.1); Chloride 99 mmol/L (98-107); EST Glomerular Filtration Rate 80 mL/min (>60); Est Glom Filt Rate - Afr Amer 97 mL/min (>60); Glucose 109 mg/dL (74-106); Magnesium 1.8 mg/dL (1.6-2.6); Potassium 3.3 mmol/L (3.5-5.1); Sodium Level 135 mmol/L (136-145)
[2019-09-08 16:16] LABS: Prothrombin Time (Protime)PT. 106.6 SECONDS (11.7-14.9)
[2019-09-08 16:45] LABS: International Normalized Ratio 13.9
== END ==
PROVIDERS: PCP Family Medicine; Visit Provider Family Medicine
DX: I48.91 Unspecified atrial fibrillation (principal); M62.838 Other muscle spasm; M47.816 Spondylosis without myelopathy or radiculopathy, lumbar region
CPT/HCPCS: 36415; 72072; 72110; 80048; 83735; 85610

== ENCOUNTER → 2019-09-08 14:00 | Outpatient (CLI) | payer MEDICAID, SELFPAY ==
[2019-08-18 11:54] VITALS: BMI 25.7
--- NOTE | 2019-09-08 14:03 | RAD_ITS ---
STUDY: X-RAY - THORACIC SPINE REASON FOR EXAM: Male, 64 years old. Increasing mid/lower back pain and spasms since July 2019. History of compression fractures. TECHNIQUE: 3 view(s) of the thoracic spine were obtained. COMPARISON: 08/09/2019. FINDINGS: Normal kyphosis of the thoracic spine. There is no substantial scoliosis. More pronounced slightly compressed fracture of T8 vertebral body suggesting refracture injury. Anterior wedge compression fracture of the upper T12 vertebral body is unchanged. Anterior wedge compression fractures of the upper and lower vertebral endplates of T9 vertebral body are unchanged. Mild anterior wedge compression fracture of the upper T5 vertebral body is unchanged. Anterior wedge compression fracture of the upper L1 vertebral body is unchanged. Moderately pronounced anterior wedge compression fracture of the upper two thirds of the L2 vertebral body. Increased disc space heights at the levels of the compression fractures. The soft tissue structures are unremarkable. RAD/Thoracic Spine 3 Views IMPRESSION: 1. More pronounced compression fracture of T8 vertebral body suggesting refracture injury when compared to 08/09/2019. This is feasible for kyphoplasty if patient has debilitating back pain referrable to this site. 2. Compression fractures involving the upper T5 vertebral body, the upper and lower vertebral endplates of T9 vertebral body, the upper T12 vertebral body, the upper L1 vertebral body and moderately pronounced compression fracture of the upper two thirds of the L2 vertebral body are unchanged. Electronically Signed: Miguel Teixeira MD at 9:44 EST , Service support ,
--- NOTE | 2019-09-08 14:04 | RAD_ITS ---
STUDY: X-RAY - LUMBAR SPINE REASON FOR EXAM: Male, 64 years old. INCREASING MID/LOWER BACK PAIN AND SPASMS SINCE JULY 2019, HX COMPRESSION FX TECHNIQUE: 5 view(s) of the lumbar spine were obtained. COMPARISON: None FINDINGS: Normal lumbar lordosis. There is no substantial scoliosis. There is a normal alignment of the vertebrae. There is multilevel endplate spondylosis of the lumbar vertebrae. There is multi-level degenerative disc disease with multi-level disc space narrowing. There is no demonstrated fracture. Compression fractures of L2 and L4. The soft tissue structures are unremarkable. RAD/L/S Spine Min 4 Views IMPRESSION: Degenerative changes of the spine, as detailed above. Electronically Signed: Guicho Alcala DO at 8:46 EST Tel , Service support ,
== END ==
PROVIDERS: PCP Family Medicine; Referring Provider Family Medicine; Visit Provider Family Medicine
DX: M47.816 Spondylosis without myelopathy or radiculopathy, lumbar region (principal)
CPT/HCPCS: 72072; 72110

== ENCOUNTER 2019-09-22 10:19 | Outpatient (RCR) | payer MEDICAID, SELFPAY ==
[2019-08-18 11:54] VITALS: BMI 25.7
[2019-09-09 07:06] LABS: Hemoglobin 12.6 g/dL (13.0-16.5)
[2019-09-09 08:17] LABS: International Normalized Ratio 5.6
[2019-09-09 08:32] LABS: Prothrombin Time (Protime)PT. 51.2 SECONDS (11.7-14.9)
[2019-09-11 08:53] LABS: International Normalized Ratio 1.8; Prothrombin Time (Protime)PT. 21.1 SECONDS (11.7-14.9)
[2019-09-16 09:55] LABS: International Normalized Ratio 1.7; Prothrombin Time (Protime)PT. 19.9 SECONDS (11.7-14.9)
[2019-09-22 11:15] LABS: International Normalized Ratio 1.6; Prothrombin Time (Protime)PT. 19.3 SECONDS (11.7-14.9)
== END 2019-09-22 18:00 | disposition home or self-care (01) ==
LOC: LAB 10:19
PROVIDERS: Internal Medicine Cardiovascular Disease; Internal Medicine Critical Care Medicine; Family Provider Family Medicine; PCP Family Medicine; Referring Provider Internal Medicine Cardiovascular Disease; Visit Provider Internal Medicine Cardiovascular Disease
DX: I48.0 Paroxysmal atrial fibrillation (principal); Z79.01 Long term (current) use of anticoagulants
CPT/HCPCS: 36415; 85018; 85610

== ENCOUNTER → 2019-10-13 11:40 | Outpatient (CLI) | payer MEDICAID, SELFPAY ==
[2019-08-18 11:54] VITALS: BMI 25.7
[2019-10-13 11:26] VITALS: BMI 24.6
[2019-10-13 16:14] LABS: Vitamin D,25 Hydroxy 69.2 ng/mL
[2019-10-13 16:16] LABS: Calcium,Total 9.8 mg/dL (8.5-10.1); Follicle Stimulating Hormone 3.6 mIU/mL
[2019-10-13 17:12] LABS: Anion Gap 11 (5-15); BUN 14 mg/dL (7-18); BUN/Creat Ratio 11.1 RATIO (10-20); Calcium,Total 9.5 mg/dL (8.5-10.1); Chloride 95 mmol/L (98-107); Creatinine, Serum 1.26 mg/dL (0.70-1.30); EST Glomerular Filtration Rate 61 mL/min (>60); Est Glom Filt Rate - Afr Amer 74 mL/min (>60); Glucose 78 mg/dL (74-106); Potassium 4.1 mmol/L (3.5-5.1); Sodium Level 131 mmol/L (136-145)
[2019-10-14 08:23] LABS: PTHIN 17.5 pg/mL (18.4-80.1)
[2019-10-17 08:07] LABS: Testosterone, Free 8.13 ng/dL (5.00-21.00)
[2019-10-17 12:36] LABS: Testosterone, % Free 1.28 % (1.50-4.20); Testosterone, Total 635 ng/dL (264-916)
== END ==
PROVIDERS: Internal Medicine Endocrinology, Diabetes & Metabolism; PCP Family Medicine; Referring Provider Family Medicine; Visit Provider Family Medicine
DX: E87.6 Hypokalemia (principal); E55.9 Vitamin D deficiency, unspecified; M81.0 Age-related osteoporosis without current pathological fracture
CPT/HCPCS: 36415; 80048; 82306; 82310; 83001; 83002; 83970; 84402; 84403

== ENCOUNTER 2019-10-20 05:59 | Outpatient (RCR) | payer MEDICAID, SELFPAY ==
[2019-08-18 11:54] VITALS: BMI 25.7
[2019-09-30 08:24] LABS: International Normalized Ratio 1.8; Prothrombin Time (Protime)PT. 20.9 SECONDS (11.7-14.9)
[2019-10-06 11:19] LABS: International Normalized Ratio 2.4; Prothrombin Time (Protime)PT. 26.5 SECONDS (11.7-14.9)
[2019-10-20 08:32] LABS: International Normalized Ratio 2.4; Prothrombin Time (Protime)PT. 25.8 SECONDS (11.7-14.9)
== END 2019-10-20 18:00 | disposition home or self-care (01) ==
LOC: LAB 05:59
PROVIDERS: Family Provider Family Medicine; PCP Family Medicine; Referring Provider Internal Medicine Cardiovascular Disease; Visit Provider Internal Medicine Cardiovascular Disease
DX: I48.0 Paroxysmal atrial fibrillation (principal); Z79.01 Long term (current) use of anticoagulants
CPT/HCPCS: 36415; 85610

== ENCOUNTER 2019-11-17 05:59 | Outpatient (RCR) | payer MEDICAID, SELFPAY ==
[2019-10-13 13:19] VITALS: BMI 25.7
[2019-11-17 07:41] LABS: International Normalized Ratio 1.8; Prothrombin Time (Protime)PT. 20.3 SECONDS (11.7-14.9)
== END 2019-11-27 18:00 | disposition home or self-care (01) ==
LOC: LAB 05:59
PROVIDERS: Family Provider Family Medicine; PCP Family Medicine; Referring Provider Internal Medicine Cardiovascular Disease; Visit Provider Internal Medicine Cardiovascular Disease
DX: I48.0 Paroxysmal atrial fibrillation (principal); Z79.01 Long term (current) use of anticoagulants
CPT/HCPCS: 36415; 85610

== ENCOUNTER 2019-12-23 05:57 | Outpatient (RCR) | payer MEDICAID, SELFPAY ==
[2019-10-13 13:19] VITALS: BMI 25.7
[2019-12-01 07:18] LABS: International Normalized Ratio 1.5; Prothrombin Time (Protime)PT. 17.8 SECONDS (11.7-14.9)
[2019-12-08 06:25] LABS: International Normalized Ratio 1.8; Prothrombin Time (Protime)PT. 20.1 SECONDS (11.7-14.9)
[2019-12-23 07:27] LABS: International Normalized Ratio 1.8; Prothrombin Time (Protime)PT. 20.2 SECONDS (11.7-14.9)
== END 2019-12-23 18:00 | disposition home or self-care (01) ==
LOC: LAB 05:57
PROVIDERS: Family Provider Family Medicine; PCP Family Medicine; Referring Provider Internal Medicine Cardiovascular Disease; Visit Provider Internal Medicine Cardiovascular Disease
DX: I48.0 Paroxysmal atrial fibrillation (principal); Z79.01 Long term (current) use of anticoagulants
CPT/HCPCS: 36415; 85610

== ENCOUNTER 2020-01-27 05:57 | Outpatient (RCR) | payer MEDICAID, SELFPAY ==
[2019-12-05 11:03] VITALS: BMI 20.5
[2020-01-07 07:22] LABS: International Normalized Ratio 2.2; Prothrombin Time (Protime)PT. 23.9 SECONDS (11.7-14.9)
[2020-01-27 08:22] LABS: International Normalized Ratio 2.1; Prothrombin Time (Protime)PT. 22.9 SECONDS (11.7-14.9)
== END 2020-01-27 18:00 | disposition home or self-care (01) ==
LOC: LAB 05:57
PROVIDERS: Family Provider Family Medicine; PCP Family Medicine; Referring Provider Internal Medicine Cardiovascular Disease; Visit Provider Internal Medicine Cardiovascular Disease
DX: I48.0 Paroxysmal atrial fibrillation (principal); Z79.01 Long term (current) use of anticoagulants
CPT/HCPCS: 36415; 85610

== ENCOUNTER 2020-02-17 06:33 | Outpatient (RCR) | payer MEDICAID, SELFPAY ==
[2019-12-05 11:03] VITALS: BMI 20.5
[2020-02-17 07:11] LABS: International Normalized Ratio 2.2; Prothrombin Time (Protime)PT. 24.3 SECONDS (11.7-14.9)
== END 2020-02-17 18:00 | disposition home or self-care (01) ==
LOC: LAB 06:33
PROVIDERS: Family Provider Family Medicine; PCP Family Medicine; Referring Provider Internal Medicine Cardiovascular Disease; Visit Provider Internal Medicine Cardiovascular Disease
DX: I48.0 Paroxysmal atrial fibrillation (principal); Z79.01 Long term (current) use of anticoagulants
CPT/HCPCS: 36415; 85610

== ENCOUNTER 2020-03-10 12:02 | Outpatient (RCR) | payer MEDICAID, SELFPAY ==
[2020-02-15 08:36] VITALS: BMI 21.1
[2020-03-10 12:47] LABS: International Normalized Ratio 2.3; Prothrombin Time (Protime)PT. 24.6 SECONDS (11.7-14.9)
== END 2020-03-29 18:00 | disposition home or self-care (01) ==
LOC: LAB 12:02
PROVIDERS: Family Provider Family Medicine; PCP Family Medicine; Referring Provider Internal Medicine Cardiovascular Disease; Visit Provider Internal Medicine Cardiovascular Disease
DX: I48.0 Paroxysmal atrial fibrillation (principal); Z79.01 Long term (current) use of anticoagulants
CPT/HCPCS: 36415; 85610

== ENCOUNTER 2020-04-27 05:56 | Outpatient (RCR) | payer MEDICAID, SELFPAY ==
[2020-02-15 08:36] VITALS: BMI 21.1
[2020-04-12 08:53] LABS: International Normalized Ratio 1.8; Prothrombin Time (Protime)PT. 20.1 SECONDS (11.7-14.9)
[2020-04-27 07:01] LABS: International Normalized Ratio 2.2; Prothrombin Time (Protime)PT. 24.2 SECONDS (11.7-14.9)
== END 2020-04-27 18:00 | disposition home or self-care (01) ==
LOC: LAB 05:56
PROVIDERS: Family Provider Family Medicine; PCP Family Medicine; Referring Provider Internal Medicine Cardiovascular Disease; Visit Provider Internal Medicine Cardiovascular Disease
DX: I48.0 Paroxysmal atrial fibrillation (principal); Z79.01 Long term (current) use of anticoagulants
CPT/HCPCS: 36415; 85610

== ENCOUNTER 2020-04-28 09:55 | Emergency (ER) | payer MEDICAID, SELFPAY ==
[2020-02-15 08:36] VITALS: BMI 21.1
[2020-04-28 09:55] VITALS: BP 156/91; PULSE 75; RESP 15; TEMP 36.2; O2SAT 100; BMI 21.7
--- NOTE | 2020-04-28 10:27 | ED.VIS.GEN ---
History of Present Illness Chief Complaint: Ear Problem Detail of Chief Complaint: Ear pain and decreased hearing right side Informant: Patient Onset: Days Context: Sudden Onset Timing: Continuous Quality: Pain Location: Right ear Current Severity: Mild Maximum Severity: Moderate Worsened by: Palpation of the tragus Relieved by: Nothing Associated Symptoms: Decreased hearing, history of cerumen impaction Narrative: 64-year-old male presents because of right-sided ear pain that is associated with decreased hearing. He states that started several days ago. He denies drainage from the ear. Is not noted any lesions. He does have history of cerumen impaction. Has not seen visual associate recently. He does report nasal congestion. He denies shortness of breath. Denies difficulty breathing. He denies fever, chills night sweats. 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 (5) Paroxysmal atrial fibrillation Status: Chronic (6) Stage 1 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 Status: Chronic (7) Tobacco dependence Status: Chronic (8) Type 2 diabetes mellitus Status: Chronic (9) Gout Status: Resolved (10) History of DVT (deep vein thrombosis) Status: Resolved Past Medical History - Allergies and Home Meds Allergies/Adverse Reactions: Allergies secobarbital sodium [From [place]] Allergy (Verified 04/28/20 09:58) Unknown venom-honey bee [bee venom (honey bee)] Allergy (Verified 04/28/20 09:58) Anaphylaxis Primary Care Physician: Neeraj Daugherty MD [Primary Care Provider] - Prior records reviewed: Yes Surgical History: noncontributory, - - cardioversion in the past, broken nose,broken and replaced left hip Lives: Alone Smoking Status: Former smoker Alcohol: None Drugs: None - Family History Maternal Family History: Family History (Last Reviewed 02/17/20 @ 06:28 by Reny Reynolds) Mother Diabetes Hypertension Myocardial infarction Family History: Reports: - - mother with diabetes, cad,pancreatitis Paternal Family History: Family History (Last Reviewed 02/17/20 @ 06:28 by Reny Reynolds) Mother Diabetes Hypertension Myocardial infarction Family History: Reports: - - reports states dad of blood clot in the bowel Review of Systems General: Denies: Chills, Fever, Subjective, Sweats Eyes: Denies: Visual changes - bilaterally, Blurred Vision - bilaterally ENT: Denies: Rhinorrhea, Sore throat Cardiovascular: Denies: Chest pain, Palpitations Respiratory: Denies: Dyspnea, Cough, Sputum, Dyspnea on exertion Gastrointestinal: Denies: Nausea, Vomiting Hematologic: Denies: Easy bruising, Easy bleeding Allergy: Denies: Uticaria, Swelling of the mouth, Swelling of the tongue Physical Exam Vital Signs/Narrative: Vital Signs Temp Pulse Resp BP Pulse Ox 04/28/20 09:55 97.2 F L 75 15 156/91 H 100 Inital Vital Signs reviewed: Yes General: Well nourished, Well developed Head: Normocephalic, Atraumatic Eyes: Perrl, EOMI. Negative for: Pale conjunctiva, Scleral icterus ENT: Moist mucous membranes, No rhinorrhea, - - Thickened cerumen right external auditory canal. The portion of the TM that is visualized is erythematous. Will have nurse Debrox and irrigate ear was discomfort with pushing the tragus. There is no discomfort pulling on the auricle. There is no discharge noted in the auditory canal. There are no lesions to suggest Mar[place] Denny syndrome.. Negative for: TM's clear Neck: Supple, Nontender, No lymphadenopathy, No JVD Cardiovascular: Regular rate, Regular rhythm, No murmurs, Normal S1, Normal S2 Respiratory: No distress, CTA bilaterally Neurological: Alert, Oriented x3, Cranial nerves II-XII grossly intact, Normal Strength, Normal Sensation Psychological: Normal affect Diagnostic/Tx/Re-eval - Medical Decision Making Debrox was instilled into the right auditory canal several times. Several attempts were made with irrigation that were unsuccessful. Attempt to remove with cerumen spoon was unsuccessful. The wax is very hard. Recommend outpatient treatment and if no results to follow-up with otolaryngology. ED Disposition - Plan for ED Patient: Disposition: Home or Assisted Living Diagnosis: Impacted cerumen, right ear Instructions: CERUMEN IMPACTION, Home Care Referrals: Neeraj Daugherty MD [Primary Care Provider] - Additional Instructions: If outpatient treatment does not work follow-up with your early childhood worker and 5 to 7 days.
[2020-04-28] MEDS: Carbamide Peroxide 15 ML Bottle 5 DRP OTIC (10:40)
[2020-04-28 14:51] VITALS: PULSE 87; RESP 16
== END 2020-04-28 14:54 | disposition home or self-care (01) ==
PROVIDERS: Emergency Provider Emergency Medicine; PCP Family Medicine
DX: H61.21 Impacted cerumen, right ear (principal); R09.81 Nasal congestion; I10 Essential (primary) hypertension; K21.9 Gastro-esophageal reflux disease without esophagitis; I48.0 Paroxysmal atrial fibrillation; J44.9 Chronic obstructive pulmonary disease, unspecified; E11.9 Type 2 diabetes mellitus without complications; Z86.718 Personal history of other venous thrombosis and embolism; Z79.01 Long term (current) use of anticoagulants; Z79.899 Other long term (current) drug therapy; Z87.891 Personal history of nicotine dependence
CPT/HCPCS: 99282

== ENCOUNTER → 2020-04-30 07:34 | Outpatient (CLI) | payer MEDICAID, SELFPAY ==
[2020-02-15 08:36] VITALS: BMI 21.1
[2020-04-28 09:55] VITALS: BMI 21.7
--- NOTE | 2020-04-30 07:35 | CT_ITS ---
STUDY: LOW DOSE CT LUNG CANCER SCREENING REASON FOR EXAM: Male, 64 years old. LUNG SCREENING, NON SMOKER, 1 PPD X 25 YRS, A-FIB, ABLATION, COPD RADIATION DOSAGE (If Supplied By Facility): CTDIvol = ( 3.02 ) mGy, DLP = ( 114.38 ) mGycm TECHNIQUE: No contrast was administered. Low dose technique was utilized (average mAS-38 and kVp 120). 1.25 mm axial source images with a slice interval of 1.25-mm were reconstructed in lung windows. 2.5 mm axial source images with a slice interval of 2.5-mm were reconstructed in lung windows. 5.0 mm axial source images with a slice interval of 5.0-mm were reconstructed in soft tissue windows. Nodule measured using lung windows on PACS and/or independent workstation with automated measurement of minimum and maximum diameter. Nodule measurement reported as average diameter rounded to the nearest whole number. Growth is defined as an increase ins size of greater than 1.5 mm. COMPARISON: Comparison is made with prior study dated 06/06/2019. NODULES: No suspicious nodules are seen. Emphysema: Hyperinflation. Diffuse emphysematous changes worse in the upper lobes with multiple bullous formation. Stable scarring in the anterior medial aspect of the right middle lobe and lingular segment of the left upper lobe. Endobronchial lesion: None Aorta: Atherosclerotic calcification. Coronary arteries: Coronary artery calcification. Pulmonary artery: Unremarkable. Mediastinal nodes: Small benign appearing mediastinal lymph nodes. Other chest and abdominal findings: There is almost complete collapse of 2 mid dorsal vertebrae. Destructive lesion is seen in mid dorsal vertebrae as compared to prior study. CT/Low Dose CT Lung Screening IMPRESSION: Lung-RADS category 2 - Continue annual screening with LDCT in 12 months. IMPORTANT NOTES FOR USE: ACR Lung-RADS Version 1.0 Assessment Categories Release Date: November 24, 2013 Category: Coded 0-4 bases on nodule(s) with highest degree of suspicion. Negative screen is defined as categories 1 and 2; a positive screen is defined as categories 3 and 4. Category 3 and 4A nodules that are unchanged on interval CT should be coded as category 2, and individuals returned to screening in 12 months. Category 4X: Category 3 or 4 nodules with additional imaging findings that increase the suspicion of lung cancer, such as spiculation, GGN that doubles in size in 1 year, enlarged lymph notes, etc. Category Modifiers: S (significant finding unrelated to lung cancer) and C (prior history of treated lung cancer) may be added to the 0-4 Lung-RADS Electronically Signed: Jose Huang, at 10:16 EDT , Service support ,
== END ==
PROVIDERS: PCP Family Medicine; Referring Provider Internal Medicine Critical Care Medicine; Visit Provider Internal Medicine Critical Care Medicine
DX: F17.211 Nicotine dependence, cigarettes, in remission (principal)
CPT/HCPCS: G0297

== ENCOUNTER 2020-05-17 07:33 | Outpatient (RCR) | payer MEDICAID, SELFPAY ==
[2020-05-17 08:12] LABS: International Normalized Ratio 2.5; Prothrombin Time (Protime)PT. 26.9 SECONDS (11.7-14.9)
== END 2020-05-17 18:00 | disposition home or self-care (01) ==
LOC: LAB 07:33
PROVIDERS: Family Provider Family Medicine; PCP Family Medicine; Referring Provider Internal Medicine Cardiovascular Disease; Visit Provider Internal Medicine Cardiovascular Disease
DX: I48.0 Paroxysmal atrial fibrillation (principal); Z79.01 Long term (current) use of anticoagulants
CPT/HCPCS: 36415; 85610

== ENCOUNTER → 2020-05-28 13:53 | Outpatient (CLI) | payer MEDICAID, SELFPAY ==
[2020-04-28 09:55] VITALS: BMI 21.7
[2020-05-28 15:30] LABS: Absolute Lymphocyte Count 1.49 X10^3/uL (0.83-4.51); Absolute Neutrophil Count 8.5 X10^3/uL (2.0-7.7); Basophil# 0.04 X10^3/uL; Basophil% 0.4 % (0-1); Eosinophil# 0.12 X10^3/uL; Eosinophils% 1.1 % (0-5); Hematocrit 39.8 % (40-54); Hemoglobin 13.1 g/dL (13.0-16.5); Lymphocyte # 1.49 X10^3/ul (4.0); Lymphocyte % 13.2 % (19-41); Mean Corp Hgb Conc 32.9 g/dL (32-36); Mean Corpuscular Hgb 30.1 pg (27.0-32.0); Mean Corpuscular Volume 91.5 fL (80-94); Mean Platelet Vol. 10.2 fl (6.2-12.0); Monocyte# 1.03 X10^3/uL; Monocyte% 9.1 % (0-10); NRBC Flagged by Analyzer 0 % (0-5); Neutrophil # 8.54 X10^3/uL (2.7-7.7); Neutrophil % 75.8 % (47-70); Platelet Count 305 K/mm3 (150-450); RBC Distribution Width CV 13.4 % (11.6-14.6); RBC Distribution Width SD 45.2 fl (35.1-43.9); Red Blood Count 4.35 M/mm3 (4.6-6.2); White Blood Count 11.3 K/mm3 (4.4-11.0)
[2020-05-28 18:10] LABS: AST(SGOT) 16 U/L (15-37); Alanine Aminotransfer ALT/SGPT 20 U/L (16-61); Albumin, Serum 3.6 g/dL (3.2-5.0); Alkaline Phosphatase 89 U/L (45-117); Bilirubin, Direct 0.21 mg/dL (0.00-0.30); Globulin 4.4 g/dL (2.2-4.2)
== END ==
PROVIDERS: PCP Family Medicine; Visit Provider Family Medicine
DX: R10.9 Unspecified abdominal pain (principal)
CPT/HCPCS: 36415; 80076; 85025

== ENCOUNTER 2020-06-07 05:59 | Outpatient (RCR) | payer MEDICAID, SELFPAY ==
[2020-06-07 07:15] LABS: International Normalized Ratio 2.4
== END 2020-06-07 18:00 | disposition home or self-care (01) ==
LOC: LAB 05:59
PROVIDERS: Family Provider Family Medicine; PCP Family Medicine; Referring Provider Internal Medicine Cardiovascular Disease; Visit Provider Internal Medicine Cardiovascular Disease
DX: I48.0 Paroxysmal atrial fibrillation (principal); Z79.01 Long term (current) use of anticoagulants
CPT/HCPCS: 36415; 85610

== ENCOUNTER → 2020-06-17 09:46 | Outpatient (CLI) | payer MEDICAID, SELFPAY ==
[2020-06-09 08:08] VITALS: BMI 21.4
--- NOTE | 2020-06-18 13:13 | PFT ---
INTRODUCTION: The patient is a 64-year-old male that presents for pulmonary function studies secondary to a diagnosis of COPD. Respiratory therapy reports good patient effort. Bronchodilators were used during testing. INTERPRETATION: Forced expiration spirometry demonstrates the presence of a moderate large airways obstructive ventilatory defect. There was no significant response to aerosolized bronchodilators. Spirograms are of good quality and do not plateau indicating slow emptying of the lungs. Body plethysmography was performed and revealed an elevated TLC and RV, indicative of underlying hyperinflation and air trapping. Diffusing capacity by single breath CO was reduced at 53% of predicted. When compared to previous pulmonary function studies from 2019, there has been a 17% reduction in FEV1 along with a 17% reduction in DLCO. IMPRESSION: Irreversible moderate large airways obstructive ventilatory defect with associated hyperinflation, air trapping and symmetric reduction in diffusing capacity. There has been worsening in the patient's PFTs since 2019, as noted above.
== END ==
PROVIDERS: PCP Family Medicine; Referring Provider Internal Medicine Critical Care Medicine; Visit Provider Internal Medicine Critical Care Medicine
DX: J47.9 Bronchiectasis, uncomplicated (principal)
CPT/HCPCS: 94060; 94726; 94729

== ENCOUNTER → 2020-06-21 13:49 | Outpatient (CLI) | payer MEDICAID, SELFPAY ==
[2020-06-09 08:08] VITALS: BMI 21.4
--- NOTE | 2020-06-21 13:51 | ECHOCS_ITS ---
Version 2 Reason For Study: DYSPNEA/SOB Procedure This was a 2D Doppler, Color Flow transthoracic echocardiogram. Exam performed in department. Left Ventricle Normal LV size. Left ventricular systolic function is normal. The estimated ejection fraction is 60 %. Normal diastology for age. No regional wall motion abnormalities noted. Right Ventricle Normal RV size. Normal systolic function. Atria The left atrium is mildly enlarged. The right atrium is mildly enlarged. Mitral Valve Normal mitral valve. Mild (1+) eccentric mitral valve insufficiency. Tricuspid Valve Normal tricuspid valve. Aortic Valve Trisinus/trileaflet aortic valve. Mild focal aortic valve calcification. Pulmonic Valve Normal pulmonic valve. Great Vessels Mildly dilated aortic root. The pulmonary artery is normal size. Normal inferior vena cava. Pericardium/Pleural No pericardial effusion. Medication 22 gauge I.V. with prn adaptor inserted into right arm. Diluted definity 2.5ml given slow IV push to enhance endocardial definition. MMode/2D Measurements & Calculations LVIDd: 4.5 cm IVSd: 0.89 cm Ao root diam: 3.7 cm LVIDs: 3.2 cm LVPWd: 0.97 cm RVDd: 3.9 cm FS: 29.7 % LAV(MOD-bp): 59.9 ml LVAd ap4: 33.3 cm2 SV(MOD-sp4): 66.0 ml LAV(MOD-bp) Indexed: 30.4 ml/m2 EDV(MOD-sp4): 110.0 ml LAV(MOD-sp2): 54.5 ml EDV(sp4-el): 116.7 ml LAV(MOD-sp4): 64.3 ml LVAs ap4: 18.6 cm2 ESV(MOD-sp4): 44.0 ml ESV(sp4-el): 44.5 ml EF(MOD-sp4): 60.0 % EF(sp4-el): 61.9 % SV(sp4-el): 72.2 ml LA A4 area: 21.6 cm2 LA dimension(2D): 4.1 cm RA A4 area: 22.6 cm2 Time Measurements MV dec time: 0.19 sec Doppler Measurements & Calculations MV E max álvaro: 86.9 cm/sec Lat Peak E' Álvaro: 11.3 cm/sec Med Peak E' Álvaro: 7.7 cm/sec MV A max álvaro: 27.6 cm/sec E/E' lat: 7.7 E/E' med: 11.4 MV E/A: 3.1 Ao V2 max: 93.5 cm/sec LV V1 max: 85.4 cm/sec PA V2 max: 66.7 cm/sec Ao max P.5 mmHg LV V1 max P.9 mmHg PI end-d álvaro: 147.5 cm/sec Interpretation Summary Normal LV size. Left ventricular systolic function is normal. The estimated ejection fraction is 60 %. Normal diastology for age. Contrast injection was performed. Ordering Physician: Dash Uriarte Referring Physician: SARAH MANN Performed By: Abby Swann RDCS
== END ==
PROVIDERS: PCP Family Medicine; Referring Provider Internal Medicine Critical Care Medicine; Visit Provider Internal Medicine Critical Care Medicine
DX: R06.00 Dyspnea, unspecified (principal); J44.9 Chronic obstructive pulmonary disease, unspecified
CPT/HCPCS: 93306; Q9957; A4216; C8929

== ENCOUNTER 2020-07-06 05:58 | Outpatient (RCR) | payer MEDICAID, SELFPAY ==
[2020-06-09 08:08] VITALS: BMI 21.4
[2020-07-06 07:22] LABS: International Normalized Ratio 2.5; Prothrombin Time (Protime)PT. 26.2 SECONDS (11.7-14.9)
== END 2020-07-06 18:00 | disposition home or self-care (01) ==
LOC: LAB 05:58
PROVIDERS: Family Provider Family Medicine; PCP Family Medicine; Referring Provider Internal Medicine Cardiovascular Disease; Visit Provider Internal Medicine Cardiovascular Disease
DX: I48.0 Paroxysmal atrial fibrillation (principal); Z79.01 Long term (current) use of anticoagulants
CPT/HCPCS: 36415; 85610

== ENCOUNTER 2020-08-02 05:55 | Outpatient (RCR) | payer MEDICARE, MEDICAID, SELFPAY ==
[2020-07-20 09:08] VITALS: BMI 21.3
[2020-08-02 06:39] LABS: International Normalized Ratio 2.2; Prothrombin Time (Protime)PT. 23.9 SECONDS (11.7-14.9)
== END 2020-08-02 18:00 | disposition home or self-care (01) ==
LOC: LAB 05:55
PROVIDERS: Family Provider Family Medicine; PCP Family Medicine; Referring Provider Internal Medicine Cardiovascular Disease; Visit Provider Internal Medicine Cardiovascular Disease
DX: I48.0 Paroxysmal atrial fibrillation (principal); Z79.01 Long term (current) use of anticoagulants
CPT/HCPCS: 36415; 85610

== ENCOUNTER 2020-09-08 05:56 | Outpatient (RCR) | payer MEDICARE, SELFPAY ==
[2020-07-20 09:08] VITALS: BMI 21.3
[2020-09-08 07:52] LABS: International Normalized Ratio 2.7; Prothrombin Time (Protime)PT. 28.3 SECONDS (11.7-14.9)
== END 2020-09-08 18:00 | disposition home or self-care (01) ==
LOC: LAB 05:56
PROVIDERS: Family Provider Family Medicine; PCP Family Medicine; Referring Provider Internal Medicine Cardiovascular Disease; Visit Provider Internal Medicine Cardiovascular Disease
DX: I48.0 Paroxysmal atrial fibrillation (principal); Z79.01 Long term (current) use of anticoagulants
CPT/HCPCS: 36415; 85610

== ENCOUNTER 2020-10-04 05:51 | Outpatient (RCR) | payer MEDICARE, MEDICAID, SELFPAY ==
[2020-07-20 09:08] VITALS: BMI 21.3
[2020-10-04 08:56] LABS: International Normalized Ratio 2.2; Prothrombin Time (Protime)PT. 23.8 SECONDS (11.7-14.9)
== END 2020-10-04 18:00 | disposition home or self-care (01) ==
LOC: LAB 05:51
PROVIDERS: Family Provider Family Medicine; PCP Family Medicine; Referring Provider Internal Medicine Cardiovascular Disease; Visit Provider Internal Medicine Cardiovascular Disease
DX: I48.0 Paroxysmal atrial fibrillation (principal); Z79.01 Long term (current) use of anticoagulants
CPT/HCPCS: 36415; 85610

== ENCOUNTER → 2020-10-11 11:24 | Outpatient (CLI) | payer MEDICARE, SELFPAY ==
[2020-10-11 11:04] VITALS: BMI 24.4
[2020-10-11 13:16] LABS: AST(SGOT) 15 U/L (15-37); Alanine Aminotransfer ALT/SGPT 22 U/L (16-61); Alkaline Phosphatase 84 U/L (45-117); Anion Gap 6 (5-15); BUN 9 mg/dL (7-18); BUN/Creat Ratio 7.4 RATIO (10-20); Calcium,Total 9.7 mg/dL (8.5-10.1); Chloride 102 mmol/L (98-107); Creatinine, Serum 1.21 mg/dL (0.70-1.30); EST Glomerular Filtration Rate 64 mL/min (>60); Est Glom Filt Rate - Afr Amer 77 mL/min (>60); Glucose 89 mg/dL (74-106); Potassium 4.4 mmol/L (3.5-5.1); Sodium Level 135 mmol/L (136-145)
[2020-10-11 13:17] LABS: Vitamin D,25 Hydroxy 38.7 ng/mL
== END ==
PROVIDERS: PCP Family Medicine; Visit Provider Internal Medicine Endocrinology, Diabetes & Metabolism
DX: M81.0 Age-related osteoporosis without current pathological fracture (principal); E55.9 Vitamin D deficiency, unspecified
CPT/HCPCS: 36415; 80053; 82306

== ENCOUNTER → 2020-11-03 08:00 | Outpatient (CLI) | payer MEDICARE, MEDICAID, SELFPAY ==
[2020-10-11 11:04] VITALS: BMI 24.4
[2020-10-27 14:58] VITALS: BMI 25.2
[2020-11-03 08:17] VITALS: BP 106/70; PULSE 62; RESP 16; TEMP 36.6; O2SAT 98; BMI 24.1
[2020-11-03] MEDS: Zoledronic Acid 5 MG 100 ML 300 MG IV (08:24)
[2020-11-03] MEDS: 0.9% NaCl Peripheral Flush Adult/Peds IV (08:27)
[2020-11-03 08:48] VITALS: BP 104/53; PULSE 57; RESP 16; TEMP 36.1; O2SAT 100
== END ==
PROVIDERS: PCP Family Medicine; Referring Provider Internal Medicine Endocrinology, Diabetes & Metabolism; Visit Provider Internal Medicine Endocrinology, Diabetes & Metabolism
DX: M81.0 Age-related osteoporosis without current pathological fracture (principal)
CPT/HCPCS: 96365; A4216; J3489

== ENCOUNTER 2020-11-18 05:58 | Outpatient (RCR) | payer MEDICARE, MEDICAID, SELFPAY ==
[2020-10-27 14:58] VITALS: BMI 25.2
[2020-11-02 06:48] LABS: International Normalized Ratio 1.8; Prothrombin Time (Protime)PT. 20.4 SECONDS (11.7-14.9)
[2020-11-18 08:00] LABS: International Normalized Ratio 2.4; Prothrombin Time (Protime)PT. 25.5 SECONDS (11.7-14.9)
== END 2020-11-18 18:00 | disposition home or self-care (01) ==
LOC: LAB 05:58
PROVIDERS: Family Provider Family Medicine; PCP Family Medicine; Referring Provider Internal Medicine Cardiovascular Disease; Visit Provider Internal Medicine Cardiovascular Disease
DX: I48.0 Paroxysmal atrial fibrillation (principal); Z79.01 Long term (current) use of anticoagulants
CPT/HCPCS: 36415; 85610

== ENCOUNTER 2020-12-21 06:40 | Outpatient (RCR) | payer MEDICARE, MEDICAID, SELFPAY ==
[2020-11-03 08:17] VITALS: BMI 24.1
[2020-12-07 09:03] LABS: International Normalized Ratio 1.9
[2020-12-21 08:27] LABS: International Normalized Ratio 2.1; Prothrombin Time (Protime)PT. 22.3 SECONDS (11.7-14.9)
== END 2020-12-21 18:00 | disposition home or self-care (01) ==
LOC: LAB 06:40
PROVIDERS: Family Provider Family Medicine; PCP Family Medicine; Referring Provider Internal Medicine Cardiovascular Disease; Visit Provider Internal Medicine Cardiovascular Disease
DX: I48.0 Paroxysmal atrial fibrillation (principal); Z79.01 Long term (current) use of anticoagulants
CPT/HCPCS: 36415; 85610

== ENCOUNTER 2021-01-12 09:29 | Outpatient (RCR) | payer MEDICARE, MEDICAID, SELFPAY ==
[2020-11-03 08:17] VITALS: BMI 24.1
[2021-01-12 10:33] LABS: International Normalized Ratio 2.5; Prothrombin Time (Protime)PT. 26.6 SECONDS (11.7-14.9)
== END 2021-01-12 18:00 | disposition home or self-care (01) ==
LOC: LAB 09:29
PROVIDERS: Family Provider Family Medicine; PCP Family Medicine; Referring Provider Internal Medicine Cardiovascular Disease; Visit Provider Internal Medicine Cardiovascular Disease
DX: I48.0 Paroxysmal atrial fibrillation (principal); Z79.01 Long term (current) use of anticoagulants
CPT/HCPCS: 36415; 85610

== ENCOUNTER 2021-02-04 06:00 | Outpatient (RCR) | payer MEDICARE, MEDICAID, SELFPAY ==
[2020-11-03 08:17] VITALS: BMI 24.1
[2021-02-04 09:22] LABS: International Normalized Ratio 2.6; Prothrombin Time (Protime)PT. 26.6 SECONDS (11.7-14.9)
== END 2021-02-04 18:00 | disposition home or self-care (01) ==
LOC: LAB 06:00
PROVIDERS: Family Provider Family Medicine; PCP Family Medicine; Referring Provider Internal Medicine Cardiovascular Disease; Visit Provider Internal Medicine Cardiovascular Disease
DX: Z79.01 Long term (current) use of anticoagulants (principal); I48.0 Paroxysmal atrial fibrillation
CPT/HCPCS: 36415; 85610

== ENCOUNTER → 2021-02-04 10:51 | Outpatient (CLI) | payer MEDICARE, MEDICAID, SELFPAY ==
[2020-11-03 08:17] VITALS: BMI 24.1
[2021-02-04 12:29] LABS: Absolute Neutrophil Count 4.9 X10^3/uL (2.0-7.7); Basophil# 0.07 X10^3/uL; Eosinophil# 0.19 X10^3/uL; Eosinophils% 2.6 % (0-5); Hematocrit 42.8 % (40-54); Hemoglobin 14.3 g/dL (13.0-16.5); Lymphocyte % 20.5 % (19-41); Mean Corp Hgb Conc 33.4 g/dL (32-36); Mean Corpuscular Hgb 29.9 pg (27.0-32.0); Mean Corpuscular Volume 89.4 fL (80-94); Mean Platelet Vol. 10.1 fl (6.2-12.0); Monocyte# 0.62 X10^3/uL; Monocyte% 8.5 % (0-10); NRBC Flagged by Analyzer 0 % (0-5); Neutrophil % 66.7 % (47-70); Platelet Count 263 K/mm3 (150-450); RBC Distribution Width CV 13.8 % (11.6-14.6); RBC Distribution Width SD 44.9 fl (35.1-43.9); Red Blood Count 4.79 M/mm3 (4.6-6.2); White Blood Count 7.3 K/mm3 (4.4-11.0)
[2021-02-04 13:15] LABS: ALB/GLOB Ratio 0.9 RATIO (0.9-2.4); AST(SGOT) 22 U/L (15-37); Alanine Aminotransfer ALT/SGPT 22 U/L (16-61); Albumin, Serum 3.9 g/dL (3.2-5.0); Alkaline Phosphatase 74 U/L (45-117); Anion Gap 7 (5-15); BUN 9 mg/dL (7-18); BUN/Creat Ratio 8.2 RATIO (10-20); Calcium,Total 9.3 mg/dL (8.5-10.1); Chloride 97 mmol/L (98-107); EST Glomerular Filtration Rate 71 mL/min (>60); Est Glom Filt Rate - Afr Amer 86 mL/min (>60); Globulin 4.2 g/dL (2.2-4.2); Glucose 75 mg/dL (74-106); Potassium 3.8 mmol/L (3.5-5.1); Protein, Total 8.1 g/dL (6.4-8.2); Sodium Level 129 mmol/L (136-145); Uric Acid 6.8 mg/dL (3.5-7.2)
== END ==
PROVIDERS: PCP Family Medicine; Referring Provider Family Medicine; Visit Provider Family Medicine
DX: I10 Essential (primary) hypertension (principal); I48.91 Unspecified atrial fibrillation; M10.9 Gout, unspecified
CPT/HCPCS: 36415; 80053; 83735; 84550; 85025; 85610

== ENCOUNTER 2021-03-02 06:01 | Outpatient (RCR) | payer MEDICARE, MEDICAID, SELFPAY ==
[2020-11-03 08:17] VITALS: BMI 24.1
[2021-03-02 06:50] LABS: Prothrombin Time (Protime)PT. 21.8 SECONDS (11.7-14.9)
== END 2021-03-02 18:00 | disposition home or self-care (01) ==
LOC: LAB 06:01
PROVIDERS: Family Provider Family Medicine; PCP Family Medicine; Referring Provider Internal Medicine Cardiovascular Disease; Visit Provider Internal Medicine Cardiovascular Disease
DX: I48.0 Paroxysmal atrial fibrillation (principal); Z79.01 Long term (current) use of anticoagulants
CPT/HCPCS: 36415; 85610

== ENCOUNTER 2021-04-25 05:57 | Outpatient (RCR) | payer MEDICARE, MEDICAID, SELFPAY ==
[2021-03-30 00:31] VITALS: BMI 24.1
[2021-04-01 07:20] LABS: International Normalized Ratio 2.2; Prothrombin Time (Protime)PT. 23.3 SECONDS (11.7-14.9)
[2021-04-25 07:36] LABS: International Normalized Ratio 2.5; Prothrombin Time (Protime)PT. 25.9 SECONDS (11.7-14.9)
== END 2021-04-25 18:00 | disposition home or self-care (01) ==
LOC: LAB 05:57
PROVIDERS: Family Provider Family Medicine; PCP Family Medicine; Referring Provider Internal Medicine Cardiovascular Disease; Visit Provider Internal Medicine Cardiovascular Disease
DX: I48.0 Paroxysmal atrial fibrillation (principal); Z79.01 Long term (current) use of anticoagulants
CPT/HCPCS: 36415; 85610

== ENCOUNTER → 2021-05-12 08:06 | Outpatient (CLI) | payer MEDICARE, MEDICAID, SELFPAY ==
--- NOTE | 2021-05-12 08:07 | CT_ITS ---
STUDY: LOW DOSE CT LUNG CANCER SCREENING REASON FOR EXAM: Male, 65 years old. Long history of smoking. Screening for lung cancer. RADIATION DOSAGE (If Supplied By Facility): CTDIvol = ( 3.02 ) mGy, DLP = ( 109.48 ) mGycm TECHNIQUE: No contrast was administered. Low dose technique was utilized (average mAS-38 and kVp 120). 1.25 mm axial source images with a slice interval of 1.25-mm were reconstructed in lung windows. 2.5 mm axial source images with a slice interval of 2.5-mm were reconstructed in lung windows. 5.0 mm axial source images with a slice interval of 5.0-mm were reconstructed in soft tissue windows. Nodule measured using lung windows on PACS and/or independent workstation with automated measurement of minimum and maximum diameter. Nodule measurement reported as average diameter rounded to the nearest whole number. Growth is defined as an increase ins size of greater than 1.5 mm. COMPARISON: 05/18/2020 and 06/06/2019. NODULES: There is hyperinflation of the lungs consistent with chronic obstructive lung disease (COPD). Emphysema is noted in both lungs more prominent in the upper lobes predominantly centrilobular. There is a new nodule in the right middle lobe axial image #191 measures 7.5 mm. There are no suspicious lung nodules There are no endobronchial lesions. There is no demonstrated pleural abnormality. Normal heart and pericardium. Normal mediastinum. Normal hilar regions. Normal unenhanced pulmonary arteries. Normal aorta arch and descending thoracic aorta. Old compression fractures of T8, T9, T10, T12, L2. Extensive bony erosions at T8 and T9 are stable since 2019 may represent chronic osteomyelitis. There is no demonstrated abnormality of the visualized upper abdomen. CT/Low Dose CT Lung Screening IMPRESSION: Lung-RADS category 4. New suspicious nodule in the right middle lobe axial image #191 measuring 7.5 mm. Old compression fractures of T8, T9, T10, T12, L2. Extensive bony erosions are seen in the endplates at T8 and T9 may represent an infectious process. Recommendation: PET/CT scan. IMPORTANT NOTES FOR USE: ACR Lung-RADS Version 1.0 Assessment Categories Release Date: November 24, 2013 Category: Coded 0-4 bases on nodule(s) with highest degree of suspicion. Negative screen is defined as categories 1 and 2; a positive screen is defined as categories 3 and 4. Category 3 and 4A nodules that are unchanged on interval CT should be coded as category 2, and individuals returned to screening in 12 months. Category 4X: Category 3 or 4 nodules with additional imaging findings that increase the suspicion of lung cancer, such as spiculation, GGN that doubles in size in 1 year, enlarged lymph notes, etc. Category Modifiers: S (significant finding unrelated to lung cancer) and C (prior history of treated lung cancer) may be added to the 0-4 Lung-RADS N.B. : The above information has been verbally conveyed by Matthew Diaz MD to Angelita Macedo NP, on 05/13/2021 04:52:53 (ET). Electronically Signed: Matthew Diaz MD at 4:54 EDT Tel , Service support ,
== END ==
PROVIDERS: PCP Family Medicine; Referring Provider Nurse Practitioner Acute Care; Visit Provider Nurse Practitioner Acute Care
DX: F17.210 Nicotine dependence, cigarettes, uncomplicated (principal)
CPT/HCPCS: 71271

== ENCOUNTER → 2021-06-14 14:58 | Outpatient (CLI) | payer MEDICARE, MEDICAID, SELFPAY ==
--- NOTE | 2021-06-14 14:00 | PET_ITS ---
EXAMINATION: FDG PET-CT INDICATIONS: A 65-year-old male with history of pulmonary nodularity. COMPARISON EXAMINATION: CT of the chest report dated 05/12/21 TECHNIQUE: Following the intravenous administration of 13.77 mCi of F-18 deoxyglucose via the right antecubital fossa, multiplanar image acquisitions of the neck, chest, abdomen and pelvis to level of mid thigh, obtained at one hour post radiopharmaceutical administration contemporaneously interpreted with the current CT of the neck, chest, abdomen and pelvis, to level of mid thigh, dated 06/14/[address] of the chest report dated 05/12/21 reveals: BLOOD GLUCOSE LEVEL:?? 83 mg/dl?HEIGHT:?69 inches?WEIGHT: 161 lbs. FINDINGS: 1. There is no quantitative scintigraphic evidence of abnormal increased glucose metabolism within the context of the right lower anterior lung-right middle lobe non-calcified density to correlate with structural changes noted on review of CT of the thorax dated 06/14/21. 2. Normal physiologic distribution of the radiopharmaceutical is apparent in the hepatic and splenic parenchyma, both renal units, bladder and visualized intestinal tract. The visualized portion of the cerebral cortical-subcortical structures demonstrate symmetric and preserved glucose metabolism. Focal increased FDG distribution is defined in the ninth thoracic vertebra associated with visualized trauma-compression fracture and left hip articulation in the periprosthetic soft tissues commensurate with metallic reconstruction artifact. Pertinent CT findings are as follows: CHEST: There is atherosclerotic calcification defined in the thoracic aorta without evidence of dilatation-aneurysm formation. Coronary arterial calcification is observed. Emphysematous changes are manifest in the bilateral upper-mid lung zones. Right and left subcentimeter axillary soft tissue densities with fatty hilus are ametabolic. Mediastinal soft tissue reveals no evidence of quantitatively significant enhanced FDG uptake. ABDOMEN AND PELVIS: There is atherosclerotic calcification defined in the abdominal aorta without evidence of dilatation-aneurysm formation. Abdominal-pelvic arterial calcification is demonstrated. Right and left inguinal soft tissue densities with fatty hilus are ametabolic. A fat containing paraumbilical hernia is noted. Colonic diverticulosis is encountered without evidence of diverticulitis. SKELETAL: Degenerative changes are noted in the cervical, thoracic and lumbar spine without evidence of increased radiopharmaceutical concentration. Compression deformities are noted at several levels of the lumbar spine without evidence of increased tracer uptake. PET/PET/CT Tumor Base -Thigh Init IMPRESSION: 1. NEGATIVE EXAMINATION. There is no quantitative scintigraphic evidence of abnormal increased glucose metabolism within the context of the right lower anterior lung-right middle lobe non-calcified density to correlate with structural changes noted on review of CT of the thorax dated 06/14/21. 2. Anatomic stability may be ensured in the nonglucose avid right middle lobe non-calcified parenchymal density with repeat FDG PET-CT imaging and/or CT of the chest in 3-6 months if clinically indicated. (Zoie, Seminars in Thoracic and Cardiovascular Surgery 14:292, 2002). 3. Enhanced tracer uptake observed in the ninth thoracic vertebra is most consistent with activated leukocytes associated with trauma-compression fracture. (Kasia et al, [employer] International 13:755, 2002). Electronic Signature Francisco Rebolledo D.O. Accurate Quantification of SUVs for this report are calculated using the exclusive pluri[employer] Technology. (U.S. Patent No. 10, [id number]). Standardization and correction of the FDG SUV metric via ACCUQUAN technology allow for vendor non-specific objective quantitative examination comparison and optimization of the sensitivity and specificity of the FDG PET-CT examination. Electronically Signed: Francisco Rebolledo DO at 23:51 EST Tel , Service support ,
== END ==
PROVIDERS: PCP Family Medicine; Referring Provider Nurse Practitioner Acute Care; Visit Provider Nurse Practitioner Acute Care
DX: R91.8 Other nonspecific abnormal finding of lung field (principal)
CPT/HCPCS: 78815; A9552

== ENCOUNTER 2021-06-27 06:03 | Outpatient (RCR) | payer MEDICARE, MEDICAID, SELFPAY ==
[2021-04-29 00:34] VITALS: BMI 24.1
[2021-06-27 07:12] LABS: Prothrombin Time (Protime)PT. 21.9 SECONDS (11.7-14.9)
== END 2021-06-28 18:00 | disposition home or self-care (01) ==
LOC: LAB 06:03
PROVIDERS: Family Provider Family Medicine; PCP Family Medicine; Referring Provider Internal Medicine Cardiovascular Disease; Visit Provider Internal Medicine Cardiovascular Disease
DX: I48.0 Paroxysmal atrial fibrillation (principal); Z79.01 Long term (current) use of anticoagulants
CPT/HCPCS: 36415; 85610

== ENCOUNTER 2021-07-20 06:05 | Outpatient (RCR) | payer MEDICARE, MEDICAID, SELFPAY ==
[2021-06-29 03:46] VITALS: BMI 24.1
[2021-07-20 08:49] LABS: International Normalized Ratio 1.9; Prothrombin Time (Protime)PT. 20.9 SECONDS (11.7-14.9)
== END 2021-07-30 18:00 | disposition home or self-care (01) ==
LOC: LAB 06:05
PROVIDERS: Family Provider Family Medicine; PCP Family Medicine; Referring Provider Internal Medicine Cardiovascular Disease; Visit Provider Internal Medicine Cardiovascular Disease
DX: I48.0 Paroxysmal atrial fibrillation (principal); Z79.01 Long term (current) use of anticoagulants
CPT/HCPCS: 36415; 85610

== ENCOUNTER 2021-08-02 05:57 | Outpatient (RCR) | payer MEDICARE, MEDICAID, SELFPAY ==
[2021-08-01 02:31] VITALS: BMI 24.1
[2021-08-02 08:39] LABS: International Normalized Ratio 2.5; Prothrombin Time (Protime)PT. 26.3 SECONDS (11.7-14.9)
== END 2021-08-29 18:00 | disposition home or self-care (01) ==
LOC: LAB 05:57
PROVIDERS: Family Provider Family Medicine; PCP Family Medicine; Referring Provider Internal Medicine Cardiovascular Disease; Visit Provider Internal Medicine Cardiovascular Disease
DX: I48.0 Paroxysmal atrial fibrillation (principal); Z79.01 Long term (current) use of anticoagulants
CPT/HCPCS: 36415; 85610

== ENCOUNTER 2021-09-10 07:34 | Outpatient (CLI) | payer MEDICARE, MEDICAID, SELFPAY ==
--- NOTE | 2021-09-10 07:35 | CT_ITS ---
INDICATION: surveillance of nodule EXAMINATION: CT CHEST WITHOUT CONTRAST - CT Chest W/O Contrast Injection TECHNIQUE: Helically acquired images were obtained of the chest. A radiation dose optimization technique was used for this scan. IV Contrast dosage and agent: None. COMPARISON: May 12 2021. FINDINGS: LUNGS, PLEURA AND LARGE AIRWAYS: Interval decrease in size of previously seen nodule, now measuring 4 mm. Triangular morphology seen on coronal and sagittal reconstructions. There is bilateral air trapping and centrilobular emphysematous changes which are advanced. Few areas of slight interstitial thickening seen in the periphery of the left upper lobe and superior segment right lower lobe are unchanged. A few calcified granulomas are present, benign findings. No consolidation. No pneumothorax. THYROID: No thyroid lesions. HEART AND PERICARDIUM: Heart size is normal. No pericardial effusion. VESSELS: Thoracic aorta is not dilated. MEDIASTINUM AND SHELDON: No mediastinal or hilar adenopathy. Esophagus is unremarkable. No hiatal hernia. UPPER ABDOMEN: 2.0 cm exophytic fluid density extending from the superior pole left kidney not appreciably changed. There is extensive abdominal and splenic artery atherosclerosis. Otherwise normal unenhanced CT of the solid and hollow viscus organs upper abdomen, included in the [id number]. BONES: Greater than 25% vertebral body height loss of T8 is again noted. At least partial wedge compression fractures of T9-10 are also present. T12 and L2 significant vertebral body height loss. CT/Chest without Contrast IMPRESSION: Interval decrease in size of right middle lobe pulmonary nodule, previously measuring 7.5 mm, now measuring 4 mm. Triangular shape on coronal and sagittal images. No further follow-up recommended. Moderately advanced emphysematous changes and scattered areas of mild interstitial thickening may represent developing interstitial lung disease. Electronically Signed: Peter Suarez DO at 20:18 EST ,
== END 2021-09-10 23:59 | disposition home or self-care (01) ==
LOC: CT 07:35
PROVIDERS: PCP Family Medicine; Referring Provider Nurse Practitioner Acute Care; Visit Provider Nurse Practitioner Acute Care
DX: R91.8 Other nonspecific abnormal finding of lung field (principal)
CPT/HCPCS: 71250

== ENCOUNTER 2021-09-26 06:49 | Outpatient (RCR) | payer MEDICARE, MEDICAID, SELFPAY ==
[2021-08-30 02:19] VITALS: BMI 24.1
[2021-09-05 07:39] LABS: International Normalized Ratio 1.8; Prothrombin Time (Protime)PT. 20.3 SECONDS (11.7-14.9)
[2021-09-26 07:16] LABS: International Normalized Ratio 2.5; Prothrombin Time (Protime)PT. 26.2 SECONDS (11.7-14.9)
== END 2021-09-26 23:59 | disposition home or self-care (01) ==
LOC: LAB 06:49
PROVIDERS: Family Provider Family Medicine; PCP Family Medicine; Referring Provider Internal Medicine Cardiovascular Disease; Visit Provider Internal Medicine Cardiovascular Disease
DX: I48.0 Paroxysmal atrial fibrillation (principal); Z79.01 Long term (current) use of anticoagulants
CPT/HCPCS: 36415; 85610

== ENCOUNTER 2021-10-25 06:18 | Outpatient (RCR) | payer MEDICARE, MEDICAID, SELFPAY ==
[2021-09-27 10:27] VITALS: BMI 24.1
[2021-10-10 12:07] LABS: International Normalized Ratio 3.1; Prothrombin Time (Protime)PT. 31.1 SECONDS (11.7-14.9)
[2021-10-10 12:12] LABS: Vitamin D,25 Hydroxy 36.2 ng/mL
[2021-10-10 12:14] LABS: ALB/GLOB Ratio 1.1 RATIO (0.9-2.4); AST(SGOT) 28 U/L (15-37); Alanine Aminotransfer ALT/SGPT 33 U/L (16-61); Albumin, Serum 3.9 g/dL (3.2-5.0); Alkaline Phosphatase 61 U/L (45-117); Anion Gap 4 (5-15); BUN 6 mg/dL (7-18); BUN/Creat Ratio 6.1 RATIO (10-20); Calcium,Total 9.4 mg/dL (8.5-10.1); Chloride 101 mmol/L (98-107); Creatinine, Serum 0.99 mg/dL (0.70-1.30); EST Glomerular Filtration Rate 81 mL/min (>60); Est Glom Filt Rate - Afr Amer 98 mL/min (>60); Globulin 3.7 g/dL (2.2-4.2); Glucose 89 mg/dL (74-106); Potassium 3.7 mmol/L (3.5-5.1); Protein, Total 7.6 g/dL (6.4-8.2); Sodium Level 135 mmol/L (136-145)
[2021-10-25 07:10] LABS: International Normalized Ratio 2.7; Prothrombin Time (Protime)PT. 27.6 SECONDS (11.7-14.9)
== END 2021-10-27 18:00 | disposition home or self-care (01) ==
LOC: LAB 06:18
PROVIDERS: Internal Medicine Endocrinology, Diabetes & Metabolism; Family Provider Family Medicine; PCP Family Medicine; Referring Provider Internal Medicine Cardiovascular Disease; Visit Provider Internal Medicine Cardiovascular Disease
DX: I48.91 Unspecified atrial fibrillation (principal); I48.92 Unspecified atrial flutter; Z79.01 Long term (current) use of anticoagulants; E55.9 Vitamin D deficiency, unspecified
CPT/HCPCS: 36415; 80053; 82306; 85610

== ENCOUNTER 2021-11-03 13:21 | Outpatient (CLI) | payer MEDICARE, MEDICAID, SELFPAY ==
[2021-11-03 13:38] VITALS: BP 107/71; PULSE 59; RESP 14; TEMP 36.1; O2SAT 98; BMI 25.5
[2021-11-03] MEDS: 0.9% NaCl Peripheral Flush Adult/Peds IV (13:54)
[2021-11-03] MEDS: Zoledronic Acid 5 MG 100 ML 300 MG IV (13:54)
[2021-11-03 14:17] VITALS: BP 122/67; PULSE 72
== END 2021-11-03 23:59 | disposition home or self-care (01) ==
LOC: MEDOUTP 13:22
PROVIDERS: PCP Family Medicine; Referring Provider Internal Medicine Endocrinology, Diabetes & Metabolism; Visit Provider Internal Medicine Endocrinology, Diabetes & Metabolism
DX: M81.0 Age-related osteoporosis without current pathological fracture (principal)
CPT/HCPCS: 96365; A4216; J3489

== ENCOUNTER 2021-11-23 06:40 | Outpatient (RCR) | payer MEDICARE, MEDICAID, SELFPAY ==
[2021-10-28 03:32] VITALS: BMI 24.1
[2021-11-23 07:26] LABS: International Normalized Ratio 2.5; Prothrombin Time (Protime)PT. 26.6 SECONDS (11.7-14.9)
== END 2021-11-23 18:00 | disposition home or self-care (01) ==
LOC: LAB 06:40
PROVIDERS: Family Provider Family Medicine; PCP Family Medicine; Referring Provider Internal Medicine Cardiovascular Disease; Visit Provider Internal Medicine Cardiovascular Disease
DX: I48.92 Unspecified atrial flutter (principal); Z79.01 Long term (current) use of anticoagulants; I48.91 Unspecified atrial fibrillation
CPT/HCPCS: 36415; 85610

== ENCOUNTER 2021-12-19 07:28 | Outpatient (RCR) | payer MEDICARE, MEDICAID, SELFPAY ==
[2021-11-27 04:42] VITALS: BMI 24.1
[2021-12-19 08:27] LABS: Prothrombin Time (Protime)PT. 22.5 SECONDS (11.7-14.9)
== END 2021-12-19 18:00 | disposition home or self-care (01) ==
LOC: LAB 07:28
PROVIDERS: Family Provider Family Medicine; PCP Family Medicine; Referring Provider Internal Medicine Cardiovascular Disease; Visit Provider Internal Medicine Cardiovascular Disease
DX: I48.91 Unspecified atrial fibrillation (principal); Z79.01 Long term (current) use of anticoagulants; I48.92 Unspecified atrial flutter
CPT/HCPCS: 36415; 85610

== ENCOUNTER 2022-01-19 07:42 | Outpatient (RCR) | payer MEDICARE, MEDICAID, SELFPAY ==
[2021-12-27 21:24] VITALS: BMI 24.1
[2022-01-19 08:37] LABS: International Normalized Ratio 1.9
== END 2022-01-19 23:59 | disposition home or self-care (01) ==
LOC: LAB 07:42
PROVIDERS: Family Provider Family Medicine; PCP Family Medicine; Referring Provider Internal Medicine Cardiovascular Disease; Visit Provider Internal Medicine Cardiovascular Disease
DX: I48.91 Unspecified atrial fibrillation (principal); I48.92 Unspecified atrial flutter; Z79.01 Long term (current) use of anticoagulants
CPT/HCPCS: 36415; 85610

== ENCOUNTER 2022-01-31 06:04 | Outpatient (RCR) | payer MEDICARE, MEDICAID, SELFPAY ==
[2022-01-27 07:43] VITALS: BMI 24.1
[2022-01-31 07:24] LABS: Prothrombin Time (Protime)PT. 22.4 SECONDS (11.7-14.9)
== END 2022-02-26 03:00 | disposition home or self-care (01) ==
LOC: LAB 06:04
PROVIDERS: Family Provider Family Medicine; PCP Family Medicine; Referring Provider Internal Medicine Cardiovascular Disease; Visit Provider Internal Medicine Cardiovascular Disease
DX: I48.91 Unspecified atrial fibrillation (principal); I48.92 Unspecified atrial flutter; Z79.01 Long term (current) use of anticoagulants
CPT/HCPCS: 36415; 85610

== ENCOUNTER 2022-03-28 06:00 | Outpatient (RCR) | payer MEDICARE, MEDICAID, SELFPAY ==
[2022-02-26 03:00] VITALS: BMI 24.1
[2022-02-28 07:09] LABS: International Normalized Ratio 1.5; Prothrombin Time (Protime)PT. 17.6 SECONDS (11.7-14.9)
[2022-03-06 08:48] LABS: International Normalized Ratio 1.6; Prothrombin Time (Protime)PT. 19.1 SECONDS (11.7-14.9)
[2022-03-13 07:33] LABS: International Normalized Ratio 2.2; Prothrombin Time (Protime)PT. 24.5 SECONDS (11.7-14.9)
[2022-03-28 09:23] LABS: International Normalized Ratio 3.7; Prothrombin Time (Protime)PT. 36.3 SECONDS (11.7-14.9)
== END 2022-03-28 18:00 | disposition home or self-care (01) ==
LOC: LAB 06:00
PROVIDERS: Family Provider Family Medicine; PCP Family Medicine; Referring Provider Internal Medicine Cardiovascular Disease; Visit Provider Internal Medicine Cardiovascular Disease
DX: I48.91 Unspecified atrial fibrillation (principal); I48.92 Unspecified atrial flutter; Z79.01 Long term (current) use of anticoagulants
CPT/HCPCS: 36415; 85610

== ENCOUNTER 2022-04-25 06:00 | Outpatient (RCR) | payer MEDICARE, MEDICAID, SELFPAY ==
[2022-03-30 00:20] VITALS: BMI 24.1
[2022-04-04 06:57] LABS: International Normalized Ratio 2.4
[2022-04-25 07:05] LABS: International Normalized Ratio 3.1; Prothrombin Time (Protime)PT. 31.8 SECONDS (11.7-14.9)
== END 2022-04-25 18:00 | disposition home or self-care (01) ==
LOC: LAB 06:00
PROVIDERS: Family Provider Family Medicine; PCP Family Medicine; Referring Provider Internal Medicine Cardiovascular Disease; Visit Provider Internal Medicine Cardiovascular Disease
DX: I48.91 Unspecified atrial fibrillation (principal); I48.92 Unspecified atrial flutter; Z79.01 Long term (current) use of anticoagulants
CPT/HCPCS: 36415; 85610

== ENCOUNTER 2022-05-12 06:03 | Outpatient (RCR) | payer MEDICARE, MEDICAID, SELFPAY ==
[2022-04-28 23:28] VITALS: BMI 24.1
[2022-05-12 08:09] LABS: Prothrombin Time (Protime)PT. 22.7 SECONDS (11.7-14.9)
== END 2022-05-12 18:00 | disposition home or self-care (01) ==
LOC: LAB 06:03
PROVIDERS: Family Provider Family Medicine; PCP Family Medicine; Referring Provider Internal Medicine Cardiovascular Disease; Visit Provider Internal Medicine Cardiovascular Disease
DX: I48.91 Unspecified atrial fibrillation (principal); I48.92 Unspecified atrial flutter; Z79.01 Long term (current) use of anticoagulants
CPT/HCPCS: 36415; 85610

== ENCOUNTER → 2022-05-15 | Outpatient (CLI) | payer MEDICARE, MEDICAID, SELFPAY ==
--- NOTE | 2022-05-15 14:10 | CT_ITS ---
HISTORY: h/o Tobacco dependency. TECHNIQUE: Helically acquired images were obtained of the chest without contrast. A radiation dose optimization technique was used for this scan. 869 images. COMPARISON: 09/10/2021, 05/12/2021, 04/30/2020, 06/06/2019. FINDINGS: LARGE AIRWAYS: Patent. LUNGS: Advanced emphysema with mild reticular scarring. New 4 mm right upper lobe nodule medially image 131/256. Stable 6 mm right upper lobe nodule. Stable 7 mm right middle lobe nodule with scarring in the right middle lobe anteriorly. Calcified right lower lobe granuloma. PLEURA: No pneumothorax or significant pleural effusion. HEART/PERICARDIUM: Heart within normal limits in size. Coronary artery calcification present. No pericardial effusion. VESSELS: Thoracic aorta nondilated. MEDIASTINUM/SHELDON: Mildly enlarged left paratracheal and subcarinal lymph nodes again seen. UPPER ABDOMEN: Left renal cyst. BONES: Degenerative change. Chronic mild T5 compression fracture. Chronic severe T8 compression fracture with sclerosis and mild retropulsion. Chronic mild T9 compression fracture with sclerosis. Mixed sclerotic appearance of the T10 vertebral body again seen. Chronic T12 and L2 compression fractures. CT/Low Dose CT Lung Screening IMPRESSION: New 4 mm right upper lobe pulmonary nodule. Lung-RADS category 3: Recommend 6 month follow-up with low-dose CT. Stable 6 mm right upper and 7 mm right middle lobe pulmonary nodules. Advanced emphysema. Electronically Signed: Vaishnavi Fuentes MD at 10:38 EDT ,
== END | disposition home or self-care (01) ==
LOC: CT 14:09
PROVIDERS: PCP Family Medicine; Referring Provider Internal Medicine Critical Care Medicine; Visit Provider Internal Medicine Critical Care Medicine
DX: Z87.891 Personal history of nicotine dependence (principal)
CPT/HCPCS: 71271

== ENCOUNTER 2022-06-01 05:59 | Outpatient (RCR) | payer MEDICARE, MEDICAID, SELFPAY ==
[2022-05-30 10:14] VITALS: BMI 24.1
[2022-06-01 07:59] LABS: International Normalized Ratio 2.9; Prothrombin Time (Protime)PT. 29.7 SECONDS (11.7-14.9)
== END 2022-06-28 18:00 | disposition home or self-care (01) ==
LOC: LAB 05:59
PROVIDERS: Family Provider Family Medicine; PCP Family Medicine; Referring Provider Internal Medicine Cardiovascular Disease; Visit Provider Internal Medicine Cardiovascular Disease
DX: I48.91 Unspecified atrial fibrillation (principal); I48.92 Unspecified atrial flutter; Z79.01 Long term (current) use of anticoagulants
CPT/HCPCS: 36415; 85610

== ENCOUNTER 2022-06-28 09:58 | Day surgery (SDC) | payer MEDICARE, MEDICAID, SELFPAY ==
--- NOTE | 2022-06-28 | IMM_PTH ---
PATIENT: ENRIQUE MCNALLY III LOC: EN U#:[id number] AGE/SX: 66/M ROOM: RE06/28/[address]: Dr. Pablo Pichardo DO : 1955 BED: DIS: 06/28/2022 SPEC #: [id number] RECD: 06/30/22 12:22 STATUS: LUKE RECarlos #: [id number] DERRICK: 06/28/22 00:[address]: Pablo Pichardo DEPT: IMMUNOHISTOCHEMISTRY RECD BY: Ashely Downs ENTERED: 06/30/22 12:22 SP TYPE: IMMUNO OTHR DR: Dr. Neeraj Daugherty MD Tissues: Esophagus, NOS Procedures: P53 (initial) KI-67 (add) PHYSICIAN & [place] [id number] SPECIMEN INFORMATION: Tissue Source: Distal esophagus Clinical Info: Vergara?s esophagus, colon polyp Specimen Number: [id number] CPT code: 53526, 52804 METHODOLOGY: Deparaffinized sections of prefer/formalin-fixed tissue or PAP/DQ stained slides are incubated with monoclonal/polyclonal antibodies/oligonucleotide probes. Localization is made via biotin free immunoperoxidase method. Appropriate controls are performed and reacted as expected. Results on target cell population are indicated in the following table: RESULTS: ANTIBODY / CLONE RESULT P53 (DO-7) negative Ki-67 (30-9) positive, low These tests were developed and their performance characteristics determined by [facility]. They may not have been cleared or approved by the U.S. Food and Drug Administration. The FDA has determined that such clearance or approval is not necessary. The above immunohistochemical/dualISH markers are ordered and reviewed by the Pathologist. INTERPRETATION: Distal esophagus, biopsy: No evidence of dysplasia. AM:erin 07/03/2022
[2022-06-28 10:20] LABS: INR Fingerstick 2.5; Prothrombin Time Fingerstick 28.5 SEC (11.7-14.9)
--- NOTE | 2022-06-28 10:20 | HP.PCM_ITS ---
History and Physical Date of Admission: 06/28/22 Chief Complaint: needs egd and colonoscopy Details: ENRIQUE MCNALLY, is a 66 M who presents to the office today to get scheduled for EGD and colonoscopy. He reports he feels well, no GI complaints. Last EGD and colonoscopy were in 2017, his previous doctor retired. Hx colon polyps. Hx large hiatal hernia, Vergara's esophagus. He takes omeprazole 20 mg daily, reports he has no acid reflux or heartburn or dysphagia. Denies nausea, vomiting, early satiety, abd pain. No diarrhea or constipation. No melena or hematochezia. Weight is stable. ROS Const Constitutional: Positive for weight change; No fatigue ENT ENT: No difficulty swallowing Gastro GI: No abdominal pain, belching, bloating, change in bowel habits, change in stool character, coffee ground emesis, constipation, cramping, diarrhea, hear tburn, difficulty swallowing, feeling full early, excessive flatus, incontinent of stools, Vomiting blood/hematemesis, Blood in stool, loose stools, Black,tarry stools, nausea/dyspepsia, pain with swallowing, vomiting or other Musc Musculoskeletal: Positive for joint pain, muscle cramps, stiffness and Arthritis Skin Skin: No yellowing of the eye or itchy eyes Psych Psychiatric: No anxiety and No depression Endo Endocrine: Positive for weight change; No fatigue Aller/Imm Allergy/Immunologic: No itchy eyes Kevin/Lymp Hematologic/Lymphatic: No easy bleeding or easy bruising Exam Const General: cooperative, comfortable and no acute distress Orientation: alert, awake and oriented x3 Quality Reporting Tobacco Screening ([facility] 138) Smoking Status: Former smoker Assessment and Plan Assessment and Plan (1) Barretts esophagus: ?Status:?Acute ?Plan: 66 yr old male with hx of large hiatal hernia, Vergara's esophagus, and colon polyps is due for repeat endoscopies. He is on PPI therapy. We will schedule him for EGD and colonoscopy, w/ f/u in office 2 wks later to discuss results. (2) Colon polyps: ?Status:?Acute ?Plan: see above I have examined the patient and the H&P has been reviewed. There are no clinical changes since date of exam.
[2022-06-28 10:47] VITALS: BP 120/97; PULSE 98; RESP 16; TEMP 36.1; O2SAT 98; BMI 23.8
[2022-06-28] MEDS: Lactated Ringers 1,000 ML 15 ML IV (10:53)
[2022-06-28 10:56] LABS: International Normalized Ratio 2.7; Prothrombin Time (Protime)PT. 28.4 SECONDS (11.7-14.9)
--- NOTE | 2022-06-28 11:15 | EGD_PTH ---
PATIENT: ENRIQUE MCNALLY III LOC: EN U#:[id number] AGE/SX: 66/M ROOM: RE06/28/[address]: Dr. Pablo Pichardo DO : 1955 BED: DIS: 06/28/2022 SPEC #: [id number] RECD: 06/28/22 12:35 STATUS: LUKE JAMEEL #: [id number] DERRICK: 06/28/22 11:[address]: Pablo Pichardo DEPT: SURGICAL PATHOLOGY RECD BY: Katt oHlcomb ENTERED: 06/29/22 07:55 SP TYPE: EGD [facility] DR: Dr. Neeraj Daugherty MD Tissues: Esophagus, NOS Procedures: Surgery Specimen Level IV HEADER OPERATION: Colonoscopy, EGD ([facility] [place] with biopsies PRE-OP DIAGNOSIS: Vergara?s esophagus, colon polyp TISSUE SUBMITTED: Distal esophagus biopsy MICROSCOPIC DIAGNOSIS Distal esophagus, biopsy: Gastroesophageal junctional mucosa with chronic inflammation. Goblet cell metaplasia consistent with Vergara?s esophagus. No evidence of dysplasia. See comment. AM:erin 06/30/2022 COMMENT Alcian blue/PAS stain with matched control supports the above diagnosis. Immunohistochemistry ([id number]) for P53 and Ki-67 will be performed and results will be reported separately. MICROSCOPIC DESCRIPTION Slides are reviewed. GROSS DESCRIPTION Received in fixative is one container labeled with the patient's name and designated distal esophagus biopsy. The specimen consists of multiple irregular fragments of light lópez soft tissue that in aggregate measure 2 x 0.8 x 0.1 cm. The specimen is totally submitted in one cassette. / AM:erin 06/29/2022 TC:3 CPT: 18475, 27463
[2022-06-28 11:59] VITALS: BP 120/97; BP 94/70; PULSE 80; RESP 20; TEMP 35.9; O2SAT 92
--- NOTE | 2022-06-28 12:03 | OP.EGD_ITS ---
Patient Name: Roger Mart Procedure Date: 06/28/2022 11:13 AM Date of : 1955 Age: 66 Procedure: Upper GI endoscopy Indications: Vergara's esophagus Providers: DO Donnie Clark MD: Neeraj Daugherty Medicines: Monitored Anesthesia Care Patient Profile: This is a 66 year old male. Refer to note in patient chart for documentation of history and physical. Patient has symptoms of acute heartburn. Complications: No immediate complications. Procedure: Pre-Anesthesia Assessment: - Prior to the procedure, a History and Physical was performed, and patient medications and allergies were reviewed. The risks and benefits of the procedure and the sedation options and risks were discussed with the patient. All questions were answered and informed consent was obtained. Patient identification and proposed procedure were verified by the physician in the pre-procedure area. Mental Status Examination: alert and oriented. Airway Examination: normal oropharyngeal airway and neck mobility. Respiratory Examination: clear to auscultation. CV Examination: normal. Prophylactic Antibiotics: The patient does not require prophylactic antibiotics. Prior Anticoagulants: The patient has taken Coumadin (warfarin), last dose was 3 days prior to procedure. ASA Grade Assessment: II - A patient with mild systemic disease. After reviewing the risks and benefits, the patient was deemed in satisfactory condition to undergo the procedure. The anesthesia plan was to use monitored anesthesia care (MAC). Immediately prior to administration of medications, the patient was re-assessed for adequacy to receive sedatives. The heart rate, respiratory rate, oxygen saturations, blood pressure, adequacy of pulmonary ventilation, and response to care were monitored throughout the procedure. The physical status of the patient was re-assessed after the procedure. After obtaining informed consent, the endoscope was passed under direct vision. Throughout the procedure, the patient's blood pressure, pulse, and oxygen saturations were monitored continuously. The pediatric colonoscope was introduced through the mouth, and advanced to the second part of duodenum. The upper GI endoscopy was accomplished without difficulty. The patient tolerated the procedure well. Scope In: 11:29:49 AM Scope Out: 11:36:39 AM Total Procedure Duration Time 0 hours 6 minutes 50 seconds Findings: There were esophageal mucosal changes secondary to established long-segment Vergara's disease present in the mid esophagus and in the distal esophagus. The maximum longitudinal extent of these mucosal changes was 7 cm in length. Mucosa was biopsied with a cold forceps for histology in a targeted manner at intervals of 1 cm in the middle third of the esophagus and in the lower third of the esophagus. One specimen bottle was sent to pathology. Verification of patient identification for the specimen was done. Estimated blood loss was minimal. A medium-sized hiatal hernia was present. Diffuse prominent gastric folds were found in the gastric body. The first portion of the duodenum was normal. Impression: - Esophageal mucosal changes secondary to established long-segment Vergara's disease. Biopsied. - Medium-sized hiatal hernia. - Enlarged gastric folds. - Normal first portion of the duodenum. Recommendation: - Discharge patient to home. - Resume previous diet. - Continue present medications. - Await pathology results. - Repeat upper endoscopy in 1 year for surveillance. Procedure Code(s): --- Professional --- 59406, Esophagogastroduodenoscopy, flexible, transoral; with biopsy, single or multiple CPT copyright 2017 [employer]. All rights reserved. The codes documented in this report are preliminary and upon hostess party sales representative review may be revised to meet current compliance requirements. Pablo Pichardo DO 06/28/2022 12:02:35 PM This report has been signed electronically. Number of Addenda: 0 Note Initiated On: 06/28/2022 11:13 AM
--- NOTE | 2022-06-28 12:03 | OP.CCLET_ITS ---
06/28/2022 Neeraj Daugherty Re : Upper GI endoscopy procedure for Roger Álvarezr Willow This procedure was performed on Tuesday, June 28, 2022. My impressions and recommendations are as follows: Impressions : - Esophageal mucosal changes secondary to established long-segment Vergara's disease. Biopsied. - Medium-sized hiatal hernia. - Enlarged gastric folds. - Normal first portion of the duodenum. Recommendations : - Discharge patient to home. - Resume previous diet. - Continue present medications. - Await pathology results. - Repeat upper endoscopy in 1 year for surveillance. My findings are described in the full procedure note, which is enclosed. If I can be of further assistance, please feel free to contact me at . Sincerely, Pablo Friend, 06/28/2022 12:02:35 PM This report has been signed electronically.
[2022-06-28 12:05] VITALS: BP 100/70; BP 120/97; PULSE 82; RESP 18; O2SAT 97
--- NOTE | 2022-06-28 12:06 | OP.COLON_ITS ---
Patient Name: Roger Mart Procedure Date: 06/28/2022 11:36 AM Date of : 1955 Age: 66 Procedure: Colonoscopy Indications: Follow-up for history of colon polyps of uncertain behavior Providers: Pablo Pichardo DO Referring MD: Neeraj Daugherty Medicines: Monitored Anesthesia Care Patient Profile: This is a 66 year old male. Refer to note in patient chart for documentation of history and physical. Patient has symptoms of acute heartburn. Last Colonoscopy: 5 years ago. Complications: No immediate complications. Procedure: Pre-Anesthesia Assessment: - Prior to the procedure, a History and Physical was performed, and patient medications and allergies were reviewed. The risks and benefits of the procedure and the sedation options and risks were discussed with the patient. All questions were answered and informed consent was obtained. Patient identification and proposed procedure were verified by the physician in the pre-procedure area. Mental Status Examination: alert and oriented. Airway Examination: normal oropharyngeal airway and neck mobility. Respiratory Examination: clear to auscultation. CV Examination: normal. Prophylactic Antibiotics: The patient does not require prophylactic antibiotics. Prior Anticoagulants: The patient has taken Coumadin (warfarin), last dose was 3 days prior to procedure. ASA Grade Assessment: II - A patient with mild systemic disease. After reviewing the risks and benefits, the patient was deemed in satisfactory condition to undergo the procedure. The anesthesia plan was to use monitored anesthesia care (MAC). Immediately prior to administration of medications, the patient was re-assessed for adequacy to receive sedatives. The heart rate, respiratory rate, oxygen saturations, blood pressure, adequacy of pulmonary ventilation, and response to care were monitored throughout the procedure. The physical status of the patient was re-assessed after the procedure. After I obtained informed consent, the scope was passed under direct vision. Throughout the procedure, the patient's blood pressure, pulse, and oxygen saturations were monitored continuously. The adult colonoscope was introduced through the anus and advanced to the terminal ileum. The colonoscopy was performed without difficulty. The patient tolerated the procedure well. The quality of the bowel preparation was adequate. Scope In: 11:39:19 AM Scope Withdrawal Time 0 hours 7 minutes 25 seconds Scope Out: 11:53:12 AM Total Procedure Duration Time 0 hours 13 minutes 53 seconds Findings: The perianal and digital rectal examinations were normal. A few small-mouthed diverticula were found in the sigmoid colon and splenic flexure. Impression: - Diverticulosis in the sigmoid colon and at the splenic flexure. - No specimens collected. Recommendation: - Discharge patient to home. - Resume previous diet today. - Continue present medications. - Repeat colonoscopy in 5 years for surveillance. - Return to GI office. Procedure Code(s): --- Professional --- 41944, Colonoscopy, flexible; diagnostic, including collection of specimen(s) by brushing or washing, when performed (separate procedure) CPT copyright 2017 [employer]. All rights reserved. The codes documented in this report are preliminary and upon insurance and financial services agent review may be revised to meet current compliance requirements. Pablo Pichardo DO 06/28/2022 12:06:00 PM This report has been signed electronically. Number of Addenda: 0 Note Initiated On: 06/28/2022 11:36 AM
--- NOTE | 2022-06-28 12:06 | OP.CCLET_ITS ---
06/28/2022 Neeraj Daugherty Re : Colonoscopy procedure for Roger Mart Dear Willow This procedure was performed on Tuesday, June 28, 2022. My impressions and recommendations are as follows: Impressions : - Diverticulosis in the sigmoid colon and at the splenic flexure. - No specimens collected. Recommendations : - Discharge patient to home. - Resume previous diet today. - Continue present medications. - Repeat colonoscopy in 5 years for surveillance. - Return to GI office. My findings are described in the full procedure note, which is enclosed. If I can be of further assistance, please feel free to contact me at . Sincerely, Pablo Pichardo, 06/28/2022 12:06:00 PM This report has been signed electronically.
[2022-06-28 12:10] VITALS: BP 105/74; BP 120/97; PULSE 86; RESP 18; O2SAT 98
[2022-06-28 12:16] VITALS: BP 105/74; BP 120/97; PULSE 83; RESP 18; TEMP 36.4; O2SAT 98
[2022-06-28 12:37] VITALS: BP 120/97
== END 2022-06-28 12:42 | disposition home or self-care (01) ==
LOC: EN 09:59 → AC 10:04
PROVIDERS: Anesthesiology; PCP Family Medicine; Referring Provider Family Medicine; Visit Provider Internal Medicine Gastroenterology
PROC: 0DJD8ZZ Inspection of Lower Intestinal Tract, Via Natural or Artificial Opening Endoscopic (ICD-10-PCS; CPT 45378; principal; 2022-06-28 11:10)
DX: K44.9 Diaphragmatic hernia without obstruction or gangrene (principal); Z86.010 Personal history of colon polyps; K57.30 Diverticulosis of large intestine without perforation or abscess without bleeding; K22.70 Barrett's esophagus without dysplasia; Z87.891 Personal history of nicotine dependence
CPT/HCPCS: 45378; 43239; 36416; 85610; 88305; 88341; 88342; J7120; J2405

== ENCOUNTER 2022-07-26 05:48 | Outpatient (RCR) | payer MEDICARE, MEDICAID, SELFPAY ==
[2022-06-29 00:49] VITALS: BMI 24.1
[2022-07-05 16:00] LABS: International Normalized Ratio 4.4
[2022-07-12 08:26] LABS: International Normalized Ratio 3.2; Prothrombin Time (Protime)PT. 32.1 SECONDS (11.7-14.9)
[2022-07-26 07:44] LABS: International Normalized Ratio 1.7; Prothrombin Time (Protime)PT. 19.9 SECONDS (11.7-14.9)
== END 2022-07-26 18:00 | disposition home or self-care (01) ==
LOC: LAB 05:48
PROVIDERS: Family Provider Family Medicine; PCP Family Medicine; Referring Provider Internal Medicine Cardiovascular Disease; Visit Provider Internal Medicine Cardiovascular Disease
DX: I48.91 Unspecified atrial fibrillation (principal); I48.92 Unspecified atrial flutter; Z79.01 Long term (current) use of anticoagulants
CPT/HCPCS: 36415; 85610

== ENCOUNTER 2022-08-03 18:11 | Emergency (ER) | payer MEDICARE, MEDICAID, SELFPAY ==
[2022-08-03 18:14] VITALS: BP 127/101; PULSE 120; PULSE 123; RESP 18; TEMP 37; O2SAT 100; BMI 24.3
--- NOTE | 2022-08-03 18:59 | EKG12_ITS ---
Test Reason : REPEAT EKG Blood Pressure : / mmHG Vent. Rate : 114 BPM Atrial Rate : 114 BPM P-R Int : 160 ms QRS Dur : 082 ms QT Int : 344 ms P-R-T Axes : 243 068 026 degrees QTc Int : 474 ms Atrial flutter with 2 to 1 block Septal infarct , age undetermined Abnormal ECG Confirmed by KWAME REIS, SAAD ([id number]), metropolitan editor ISABELLE FARNSWORTH ([id number]) on 08/07/2022 10:50:01 AM Referred By: JOSE ANGEL Confirmed By:REZA PUENTE MD
--- NOTE | 2022-08-03 19:00 | EDS_ITS ---
HPI History of Present Illness Chief Complaint: Palpitations Detail of Chief Complaint: /Fast heart rate, history of A. fib Informant: patient Onset/Context/Timing Onset: Today and Hours Context: Sudden Onset Timing: Continuous Quality: Rapid heartbeat Location: Chest Current Severity: Mild Maximum Severity: Mild Worsened by: Nothing Relieved by: Nothing Associated Symptoms Associated Symptoms: None Narrative Narrative: Patient is a 67-year-old male history of atrial fibrillation, paroxysmal atrial tachycardia who underwent ablation by Dr. Cavanaugh at [facility]. He states he is on Coumadin. He has not missed any doses of his Coumadin or diltiazem. Review of prior records indicates patient does have history of atrial flutter as well. He denies chest pain of any type. He denies dyspnea. Denies dyspnea on exertion. [place] orthopnea or PND. He denies black or maroon-colored stool. He denies orthostatic symptoms. He denies nausea, vomiting or diaphoresis. He denies jaw pain, neck pain or shoulder pain. Prior similar symptoms: Yes Recent Illness/Hospitalization: No PFSH PFS Medical History Afib Atrial fibrillation and flutter Barretts esophagus Bradycardia Cardiology follow-up encounter Colon polyps DVT (deep venous thrombosis) Essential hypertension Former smoker GERD (gastroesophageal reflux disease) Gout High cholesterol History of DVT (deep vein thrombosis) History of hiatal hernia Hyperlipidemia Hypertension Injury of back Leg cramps shelter (current) use of anticoagulants Near syncope Osteoporosis Paroxysmal atrial fibrillation Paroxysmal atrial tachycardia Pulmonary emphysema Scabies Shortness of breath on exertion Tachycardia Tobacco dependence Type 2 diabetes mellitus Home Medications allopurinol 100 mg tablet 100 mg PO DAILY 06/18/19 [History Last Taken Unknown] omega 8-qaq-dvk-fish oil 500 mg (200mg-300mg)-1,000 mg capsule 1 ea PO DAILY 06/18/19 [History Last Taken Unknown] cholecalciferol (vitamin D3) 250 mcg (10,000 unit) capsule 250 mcg PO DAILY 10/13/19 [History Last Taken Unknown] diltiazem HCl 120 mg capsule,extended release 24 hr 120 mg PO BID #180 caps 10/27/21 [Rx Last Taken Unknown] dofetilide 500 mcg capsule 500 mcg PO BID heart #180 caps 10/27/21 [Rx Last Taken Unknown] furosemide 40 mg tablet 40 mg PO DAILY #90 tabs 10/27/21 [Rx Last Taken Unknown] ibuprofen 800 mg tablet 800 mg PO .PRN #90 tabs 10/27/21 [Rx Last Taken Unknown] nystatin 100,000 unit/mL oral suspension 2.5 ml buccal TID PRN Sore Throat 10/27/21 [History Last Taken Unknown] potassium chloride 10 mEq tablet,extended release(part/cryst) 10 meq PO DAILY #90 tabs 10/27/21 [Rx Last Taken Unknown] warfarin 4 mg tablet 4 mg PO DAILY #90 tabs 10/27/21 [Rx Last Taken 06/25/22] budesonide 160 mcg-glycopyr 9 mcg-formot 4.8 mcg/actuation HFA inhaler (Breztri Aerosphere) 2 inh inhalation BID #10.7 grams 06/14/22 [Rx Last Taken Unknown] guaifenesin 600 mg tablet, extended release 12 hr 600 mg PO Q12H PRN congestion #14 tabs 07/12/22 [Rx Last Taken Unknown] pantoprazole 40 mg tablet,delayed release 40 mg PO DAILY #90 tabs 07/12/22 [Rx Last Taken Unknown] diltiazem HCl 180 mg capsule,extended release 24 hr 180 mg PO BID #60 caps 08/03/22 [Rx Last Taken Unknown] Allergy/AdvReac Type Severity Reaction Status Date / Time secobarbital sodium Allergy Unknown Verified 07/12/22 07:55 [From [place]] venom-honey bee Allergy Anaphylaxis Verified 07/12/22 07:55 [bee venom (honey bee)] Family History Mother Diabetes Hypertension Myocardial infarction Surgical History History of cardiac radiofrequency ablation (~04/2008) History of hip replacement History of left hip replacement Status post peripheral artery angioplasty Social History (Updated 08/03/22 @ 19:[address] Armand Sierra MD) household members: none Smoking Status: Former smoker Tobacco: How many years used: 50 how long ago did patient quit smokin alcohol intake: current alcohol intake frequency: a few times a month Alcohol type: beer substance use type: does not use caffeine: No ROS ROS ED Constitutional Constitutional ED: Denies chills, fever(s), subjective or sweats Eyes Eyes: Denies blurry vision or change in vision ENT ENT ED: Denies ear pain, rhinorrhea or sore throat Cardiovascular Cardiovascular: Reports palpitations and racing heartbeat; Denies chest pain, orthopnea or paroxysmal nocturnal dyspnea Respiratory/Chest Respiratory/Chest: Denies cough, dyspnea, dyspnea on exertion, orthopnea or paroxysmal nocturnal dyspnea Gastrointestinal Gastrointestinal: Denies abdominal pain, melena, nausea or vomiting Genitourinary Genitourinary ED: Denies dysuria, hematuria or urinary frequency Musculoskeletal Musculoskeletal: Denies arthralgias, back pain, myalgias or neck pain Integumentary Denies abscess or Abrasions Neurologic Neurologic: Denies headache(s), paresthesias or weakness Hematologic/Lymphatic Hematologic/Lymphatic: Reports easy bruising; Denies easy bleeding or lymphadenopathy EXAM Physical Exam Const Vital Signs: 08/03/22 18:14 08/03/22 18:14 08/03/22 19:01 Temperature 98.6 F Temperature Source Temporal Pulse Rate 123 H 120 H Respiratory Rate 18 Respiratory Effort Normal Non-Labored Blood Pressure 127/101 H Blood Pressure Mean 109 Pulse Ox 100 Oxygen Delivery Method Room Air 08/03/22 19:42 08/03/22 20:29 Temperature Temperature Source Pulse Rate 115 H 115 H Respiratory Rate 16 Respiratory Effort Blood Pressure 103/84 H Blood Pressure Mean 90 Pulse Ox 98 Oxygen Delivery Method Room Air Positive well nourished and well developed General Appearance ED: well developed and NAD; Negative for cyanotic, diaphoretic or pallor HEENT Reports moist mucous membranes HEENT Narrative: Head is atraumatic normocephalic. Ears normal. Nares patent. Mucosas moist. Teeth normal. Posterior pharynx is normal. Eyes PERRL and EOMs intact bilaterally General Eye ED: Negative for pale conjunctiva or scleral icterus Neck no lymphadenopathy, supple and no JVD Chest Wall inspection of chest normal and palpation of chest normal Resp normal respiratory effort and clear to auscultation bilaterally Cardio regular rhythm, S1 normal heart sound, S2 normal heart sound and no murmurs Rate: tachycardic GI normal to inspection, nondistended, normoactive bowel sounds, non-tender, non- distended and hepatosplenomegaly Palpation: soft Back/Spine no CVA tenderness Cervical Spine: Negative for cervical spine tenderness Thoracic Spine / Upper Back: Negative for thoracic spinal tenderness Lumbar Spine / Lower Back: Negative for lumbar spinal tenderness Extremity normal to inspection General Extremety ED: Negative for edema or tenderness General Extremity: Negative for edema Neuro oriented x3, CN's II-XII intact bilaterally and no sensory deficits noted Sensorium / Orientation: alert Psych mental status grossly normal Skin no rashes or lesions noted, no wounds and skin turgor normal General Skin Exam: Negative for jaundice or pallor MDM MDM MDM Narrative Medical decision making narrative: She presents with palpitations. Patient has a rapid heart rate. EKG was obtained. EKG reveals an atypical presentation for a flutter with 2-1 block and a rate of 118. We will obtain electrolyte panel since he has history of hypokalemia. Since he is on diltiazem will treat with 10 mg diltiazem IV push. PT/INR was checked since he is on Coumadin. Moderate build rate of 115. Unable to discern P waves. Repeat twelve-lead EKG reveals atrial flutter 2-1 block with a rate of 115. Patient was given additional dose of Cardizem. Patient's heart rate slowed to 30. He now has had a rate of 90. EKG was obtained and reveals a ventricular rate of 82 with a 3-1 block. He is still in atrial flutter. He is hemodynamically stable. His PT/INR are subtherapeutic. Call was placed to cardiology, Dr. Catherine the since his woods superintendent Dr. Portillo. He recommended increasing home dose of Cardizem and call tomorrow for appointment first part of next week Lab Data Attestation: I reviewed the patient's lab results. Labs: Laboratory Results - last 24 hr 08/03/22 08/03/22 08/03/22 19:00 19:00 19:00 WBC 8.5 RBC 5.35 Hgb 16.1 Hct 47.8 MCV 89.3 MCH 30.1 MCHC 33.7 RDW Std Deviation 49.5 H RDW Coeff of Vivek 15.1 H Plt Count 320 MPV 9.7 PT 21.7 H INR 1.9 Sodium 135 L Potassium 3.9 Chloride 99 Carbon Dioxide 32.0 Anion Gap 4 L BUN 15 Creatinine 1.24 Estim Creat Clear Calc 57.81 Est GFR (MDRD) Af Amer 75 Est GFR (MDRD) Non-Af 62 BUN/Creatinine Ratio 12.1 Glucose 109 H Calcium 9.5 EKG Initial EKG: Attestation: I personally reviewed and interpreted this EKG as follows: Interpretation: Atrial Flutter (2-1 block with a rate of 118. Decreased anterior force. MO interval is 84 ms. Cures duration 76 ms. QT duration 3 and 30 ms. Warriors Mark is normal) Follow-up EKG: Attestation: I personally reviewed and interpreted this EKG as follows: Interpretation: Atrial Flutter (31 block with a heart rate of 114. QRS duration is 82 ms. QT duration during 44 ms. Warriors Mark is normal. There is decreased anterior force. 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 Discharge Plan Triage Chief Complaint: Palpitations ED Provider: Armand Sierra Dx/Rx/DC Orders Clinical Impression: Atrial flutter with controlled response, Anticoagulant long-term use, Subtherapeutic international normalized ratio (INR) Prescriptions: New diltiazem HCl 180 mg capsule,extended release 24hr 180 mg PO BID Qty: 60 0RF No Action cholecalciferol (vitamin D3) 250 mcg (10,000 unit) capsule 250 mcg (10,000 unit) capsule 250 mcg PO DAILY nystatin 100,000 unit/mL suspension 2.5 ml buccal TID PRN (Reason: Sore Throat) Label Comments: place 2.5ml (ONE-HALF teaspoonful) on each side OF the mouth 3 (THREE) times daily for TEN days. diltiazem HCl 120 mg capsule,extended release 24hr 120 mg PO BID Qty: 180 3RF dofetilide 500 mcg capsule 500 mcg PO BID Qty: 180 3RF furosemide 40 mg tablet 40 mg PO DAILY Qty: 90 3RF Label Comments: water pill potassium chloride 10 mEq tablet,ER particles/crystals 10 meq PO DAILY Qty: 90 3RF Label Comments: supplement warfarin 4 mg tablet 4 mg PO DAILY Qty: 90 4RF Protocol: Dose Management Condition: Sunday Dose/Route: 4 mg Instruction: 1 x 4 mg tablet Condition: Sunday Dose/Route: 4 mg Instruction: 1 x 4 mg tablet Condition: Sunday Dose/Route: 4 mg Instruction: 1 x 4 mg tablet Condition: Sunday Dose/Route: 4 mg Instruction: 1 x 4 mg tablet Condition: Dose/Route: 2 mg Instruction: 0.5 x 4 mg tablets Condition: Sunday Dose/Route: 4 mg Instruction: 1 x 4 mg tablet Condition: Sunday Dose/Route: 4 mg Instruction: 1 x 4 mg tablet Protocol Text: Adjustment Start Date: Sunday07/26/22 INR Value: 1.7 INR Date: 07/26/22 Recheck Date: 08/09/22 Rx Instructions: Or as directed for dose changes ibuprofen 800 mg tablet 800 mg PO .PRN Qty: 90 0RF Breztri Aerosphere 160-9-4.8 mcg/actuation HFA aerosol inhaler 2 inh inhalation BID Qty: 10.7 6RF pantoprazole 40 mg tablet,delayed release (DR/EC) 40 mg PO DAILY Qty: 90 3RF guaifenesin 600 mg tablet extended release 12hr 600 mg PO Q12H PRN (Reason: congestion) Qty: 14 0RF allopurinol 100 MG tablet 100 mg PO DAILY Label Comments: gout omega 9-pll-mis-fish oil 1 EACH capsule 1 ea PO DAILY Primary Care Provider: Neeraj Daugherty Referrals: Neeraj Daugherty MD [Primary Care Provider] - Activity Restrictions/Additional Instructions: 1. Call Dr. Portillo's office tomorrow for follow-up appointment first part of next week 2. You need to increase your warfarin dose to 4 mg daily. 3. Your diltiazem was increased to 180 mg twice a day. (Do not take your 120 mg tablets once you start the 180 mg tablets) Disposition Disposition: Home, Self Care
[2022-08-03 19:18] LABS: Hematocrit 47.8 % (40-54); Hemoglobin 16.1 g/dL (13.0-16.5); Mean Corp Hgb Conc 33.7 g/dL (32-36); Mean Corpuscular Hgb 30.1 pg (27.0-32.0); Mean Corpuscular Volume 89.3 fL (80-94); Mean Platelet Vol. 9.7 fl (6.2-12.0); Platelet Count 320 K/mm3 (150-450); RBC Distribution Width CV 15.1 % (11.6-14.6); RBC Distribution Width SD 49.5 fl (35.1-43.9); Red Blood Count 5.35 M/mm3 (4.6-6.2); White Blood Count 8.5 K/mm3 (4.4-11.0)
[2022-08-03] MEDS: dilTIAZem 25 MG/5 ML Vial 10 MG IV BOLUS (19:26)
[2022-08-03 19:28] LABS: International Normalized Ratio 1.9; Prothrombin Time (Protime)PT. 21.7 SECONDS (11.7-14.9)
[2022-08-03 19:42] VITALS: PULSE 115
[2022-08-03 19:44] LABS: Anion Gap 4 (5-15); BUN 15 mg/dL (7-18); BUN/Creat Ratio 12.1 RATIO (10-20); Calcium,Total 9.5 mg/dL (8.5-10.1); Chloride 99 mmol/L (98-107); Creatinine, Serum 1.24 mg/dL (0.70-1.30); EST Glomerular Filtration Rate 62 mL/min (>60); Est Glom Filt Rate - Afr Amer 75 mL/min (>60); Estimated Creatinine Clearance 57.81 ml/min; Glucose 109 mg/dL (74-106); Potassium 3.9 mmol/L (3.5-5.1); Sodium Level 135 mmol/L (136-145)
--- NOTE | 2022-08-03 20:11 | EKG12_ITS ---
Test Reason : REPEAT EKG Blood Pressure : / mmHG Vent. Rate : 082 BPM Atrial Rate : 227 BPM P-R Int : 000 ms QRS Dur : 082 ms QT Int : 412 ms P-R-T Axes : 000 065 049 degrees QTc Int : 481 ms Atrial flutter with variable block Septal infarct , age undetermined Premature ventricular complexes Abnormal ECG Confirmed by KWAME REIS, SAAD ([id number]), website/blog editor ISABELLE FARNSWORTH ([id number]) on 08/07/2022 10:50:40 AM Referred By: JOSE ANGEL Confirmed By:REZA PUENTE MD
[2022-08-03 20:29] VITALS: BP 103/84; PULSE 115; RESP 16; O2SAT 98
[2022-08-03] MEDS: dilTIAZem 25 MG/5 ML Vial 20 MG IV BOLUS (20:29)
--- NOTE | 2022-08-03 21:20 | EKG12_ITS ---
Test Reason : DYSRHYTHMIA Blood Pressure : / mmHG Vent. Rate : 118 BPM Atrial Rate : 118 BPM P-R Int : 084 ms QRS Dur : 076 ms QT Int : 330 ms P-R-T Axes : 038 070 022 degrees QTc Int : 462 ms Atrial flutter with 2 to 1 block Septal infarct , age undetermined Abnormal ECG Confirmed by KWAME REIS, SAAD ([id number]), image editor ISABELLE FARNSWORTH ([id number]) on 08/07/2022 10:51:36 AM Referred By: JOSE ANGEL Confirmed By:REZA PUENTE MD
--- NOTE | 2022-08-03 21:22 | ED.RN ---
PATIENT REGULATORY SCIENTIST ALERTED AT THIS TIME FOR BRADYCARDIA. NURSE INTO EXAM PATIENT. PATIENT DENIES ANY ISSUES FELT FUNNY FOR A SECOND NOW FEELING BETTER. PATIENT HEART RATE BACK TO NORMAL. DR. LINDQUIST MADE AWARE REPEAT EKG ORDERED AT THIS TIME
[2022-08-03 22:00] VITALS: BP 118/97; PULSE 86; RESP 15; O2SAT 98
[2022-08-03 22:28] VITALS: PULSE 89; RESP 15; O2SAT 97
== END 2022-08-03 22:28 | disposition home or self-care (01) ==
PROVIDERS: Emergency Provider Emergency Medicine; PCP Family Medicine; Visit Provider Emergency Medicine
DX: I48.92 Unspecified atrial flutter (principal); I48.0 Paroxysmal atrial fibrillation; E11.9 Type 2 diabetes mellitus without complications; E78.00 Pure hypercholesterolemia, unspecified; I10 Essential (primary) hypertension; Z79.01 Long term (current) use of anticoagulants; Z79.899 Other long term (current) drug therapy; Z87.891 Personal history of nicotine dependence
CPT/HCPCS: 80048; 85027; 85610; 93005; 96374; 96376; 99284; A4216

== ENCOUNTER 2022-08-16 06:04 | Outpatient (RCR) | payer MEDICARE, MEDICAID, SELFPAY ==
[2022-07-30 05:23] VITALS: BMI 24.1
[2022-08-16 08:26] LABS: International Normalized Ratio 2.8; Prothrombin Time (Protime)PT. 29.1 SECONDS (11.7-14.9)
== END 2022-08-16 08:00 | disposition home or self-care (01) ==
LOC: LAB 06:04
PROVIDERS: Family Provider Family Medicine; PCP Family Medicine; Referring Provider Internal Medicine Cardiovascular Disease; Visit Provider Internal Medicine Cardiovascular Disease
DX: I48.91 Unspecified atrial fibrillation (principal); I48.92 Unspecified atrial flutter; Z79.01 Long term (current) use of anticoagulants
CPT/HCPCS: 36415; 85610

== ENCOUNTER 2022-09-04 06:03 | Outpatient (RCR) | payer MEDICARE, MEDICAID, SELFPAY ==
[2022-08-30 08:29] VITALS: BMI 24.1
[2022-09-04 07:39] LABS: International Normalized Ratio 2.3; Prothrombin Time (Protime)PT. 24.5 SECONDS (11.7-14.9)
== END 2022-09-04 18:00 | disposition home or self-care (01) ==
LOC: LAB 06:03
PROVIDERS: Family Provider Family Medicine; PCP Family Medicine; Referring Provider Internal Medicine Cardiovascular Disease; Visit Provider Internal Medicine Cardiovascular Disease
DX: I48.91 Unspecified atrial fibrillation (principal); I48.92 Unspecified atrial flutter; Z79.01 Long term (current) use of anticoagulants
CPT/HCPCS: 36415; 85610

== ENCOUNTER 2022-10-02 06:02 | Outpatient (RCR) | payer MEDICARE, MEDICAID, SELFPAY ==
[2022-09-26 22:47] VITALS: BMI 24.1
[2022-10-02 08:25] LABS: International Normalized Ratio 2.3; Prothrombin Time (Protime)PT. 25.3 SECONDS (11.7-14.9)
== END 2022-10-27 23:00 | disposition home or self-care (01) ==
LOC: LAB 06:02
PROVIDERS: Family Provider Family Medicine; PCP Family Medicine; Referring Provider Internal Medicine Cardiovascular Disease; Visit Provider Internal Medicine Cardiovascular Disease
DX: I48.91 Unspecified atrial fibrillation (principal); I48.92 Unspecified atrial flutter; Z79.01 Long term (current) use of anticoagulants
CPT/HCPCS: 36415; 85610

== ENCOUNTER 2022-11-17 06:03 | Outpatient (RCR) | payer MEDICARE, MEDICAID, SELFPAY ==
[2022-10-28 00:05] VITALS: BMI 24.1
[2022-10-31 07:40] LABS: International Normalized Ratio 2.5; Prothrombin Time (Protime)PT. 26.3 SECONDS (11.7-14.9)
[2022-10-31 08:07] LABS: ALB/GLOB Ratio 1.1 RATIO (0.9-2.4); AST(SGOT) 21 U/L (15-37); Alanine Aminotransfer ALT/SGPT 20 U/L (16-61); Albumin, Serum 4.1 g/dL (3.2-5.0); Alkaline Phosphatase 63 U/L (45-117); Anion Gap 9 (5-15); BUN 13 mg/dL (7-18); BUN/Creat Ratio 9.6 RATIO (10-20); Calcium,Total 9.6 mg/dL (8.5-10.1); Chloride 93 mmol/L (98-107); Creatinine, Serum 1.35 mg/dL (0.70-1.30); EST Glomerular Filtration Rate 56 mL/min (>60); Est Glom Filt Rate - Afr Amer 68 mL/min (>60); Globulin 3.8 g/dL (2.2-4.2); Glucose 98 mg/dL (74-106); Potassium 3.2 mmol/L (3.5-5.1); Protein, Total 7.9 g/dL (6.4-8.2); Sodium Level 128 mmol/L (136-145)
[2022-10-31 08:38] LABS: Vitamin D,25 Hydroxy 35.8 ng/mL
[2022-11-10 06:56] LABS: Anion Gap 3 (5-15); BUN 19 mg/dL (7-18); BUN/Creat Ratio 15.4 RATIO (10-20); Calcium,Total 8.9 mg/dL (8.5-10.1); Chloride 108 mmol/L (98-107); Creatinine, Serum 1.23 mg/dL (0.70-1.30); EST Glomerular Filtration Rate 62 mL/min (>60); Est Glom Filt Rate - Afr Amer 75 mL/min (>60); Glucose 81 mg/dL (74-106); Potassium 4.4 mmol/L (3.5-5.1); Sodium Level 137 mmol/L (136-145)
[2022-11-10 06:57] LABS: International Normalized Ratio 3.4; Prothrombin Time (Protime)PT. 34.3 SECONDS (11.7-14.9)
[2022-11-17 06:45] LABS: International Normalized Ratio 2.1; Prothrombin Time (Protime)PT. 23.2 SECONDS (11.7-14.9)
== END 2022-11-26 02:16 | disposition home or self-care (01) ==
LOC: LAB 06:03
PROVIDERS: Internal Medicine Endocrinology, Diabetes & Metabolism; Nurse Practitioner Family; Family Provider Family Medicine; PCP Family Medicine; Referring Provider Internal Medicine Cardiovascular Disease; Visit Provider Internal Medicine Cardiovascular Disease
DX: I48.91 Unspecified atrial fibrillation (principal); I48.92 Unspecified atrial flutter; Z79.01 Long term (current) use of anticoagulants; M81.0 Age-related osteoporosis without current pathological fracture; E55.9 Vitamin D deficiency, unspecified
CPT/HCPCS: 36415; 80048; 80053; 82306; 85610

== ENCOUNTER → 2022-11-22 | Outpatient (CLI) | payer MEDICARE, MEDICAID, SELFPAY ==
--- NOTE | 2022-11-22 14:10 | CYST_PTH ---
PATIENT: ENRIQUE MCNALLY III LOC: [facility] U#:[id number] AGE/SX: 67/M ROOM: RE11/22/[address]: Dr. Xu Anthony MD : 1955 BED: DIS: 11/22/2022 SPEC #: [id number] RECD: 11/22/22 15:25 STATUS: LUKE JAMEEL #: [id number] DERRICK: 11/22/22 14:[address]: Xu Anthony DEPT: SURGICAL PATHOLOGY RECD BY: Katt Holcomb ENTERED: 11/23/22 10:12 SP TYPE: Cyst OTHR DR: Jahaira Cerna DO Tissues: CYST Procedures: Surgery Specimen Level III HEADER OPERATION: Excision of cyst on right jaw PRE-OP DIAGNOSIS: Right jaw cyst TISSUE SUBMITTED: Right jaw cyst MICROSCOPIC DIAGNOSIS Cyst of right jaw, biopsy: Focal chronic folliculitis and solar elastosis. AM:erin 11/24/2022 COMMENT Case has been reviewed in consultation with Dr. Barajas who concurs with the above diagnosis. IDC:AMY MICROSCOPIC DESCRIPTION Slides are reviewed. GROSS DESCRIPTION Received in fixative is one container labeled with the patient's name and designated right jaw cyst. The specimen consists of a piece of lópez-white skin with underlying tissue measuring 1.4 x 0.6 cm and up to 0.5 cm in thickness. The specimen is inked, serially sectioned and submitted entirely in one cassette. / AMY:erin 11/23/2022 TC:3 CPT: 85989
== END | disposition home or self-care (01) ==
PROVIDERS: PCP Family Medicine; Referring Provider Surgery; Visit Provider Surgery
DX: M27.40 Unspecified cyst of jaw (principal)
CPT/HCPCS: 88304

== ENCOUNTER 2022-11-30 12:22 | Outpatient (CLI) | payer MEDICARE, MEDICAID, SELFPAY ==
[2022-11-30 12:40] VITALS: BP 122/88; PULSE 87; RESP 17; TEMP 36.2; O2SAT 96; BMI 26.3
[2022-11-30] MEDS: DENOSUMAB 60 MG/ML SC (12:52)
== END 2022-11-30 12:23 | disposition home or self-care (01) ==
LOC: MEDOUTP 12:22
PROVIDERS: PCP Family Medicine; Referring Provider Internal Medicine Endocrinology, Diabetes & Metabolism; Visit Provider Internal Medicine Endocrinology, Diabetes & Metabolism
DX: M81.0 Age-related osteoporosis without current pathological fracture (principal)
CPT/HCPCS: 96372; J0897

== ENCOUNTER → 2022-12-07 | Outpatient (CLI) | payer MEDICARE, MEDICAID, SELFPAY ==
--- NOTE | 2022-12-07 12:32 | CT_ITS ---
STUDY: CT CHEST WITHOUT CONTRAST REASON FOR EXAM: Male, 67 years old. New 6 mm RADIATION DOSAGE (If Supplied By Facility): CTDIvol = ( 12.05 ) mGy, DLP = ( 439.58 ) mGycm TECHNIQUE: Transaxial imaging was performed without the administration of intravenous contrast material. Multiplanar coronal and sagittal images were reformatted. Individualized dose optimization techniques were used for this CT. COMPARISON: Comparison is made with prior examination dated May 15, 2022. FINDINGS: CHEST Hyperinflation. Diffuse emphysematous changes with multiple bullous formation in the upper lobes worse in the right medial upper lobe. Mild scarring along the anterior aspect of the left upper lobe. Stable 4 mm noncalcified nodule in the right upper lobe. Stable 7 mm right middle lobe nodule. There is no demonstrated pleural abnormality. There are calcifications of the coronary arteries. There are calcifications of the coronary arteries. There are multiple small lymph nodes within the mediastinum, which are normal in size and morphology most compatible with reactive lymph hyperplasia. Normal hilar regions. Normal unenhanced pulmonary arteries. There is atherosclerotic calcification of the aortic arch with tortuosity and elongation of the aortic arch and descending thoracic aorta. There are multi-level degenerative changes of the thoracic spine. There is no demonstrated abnormality of the visualized upper abdomen. CT/Chest without Contrast IMPRESSION: Stable examination. Electronically Signed: Jose Huang MD at 15:29 EDT ,
== END | disposition home or self-care (01) ==
LOC: CT 12:28
PROVIDERS: PCP Family Medicine; Referring Provider Nurse Practitioner Acute Care; Visit Provider Nurse Practitioner Acute Care
DX: R91.1 Solitary pulmonary nodule (principal)
CPT/HCPCS: 71250

== ENCOUNTER 2022-12-11 05:59 | Outpatient (RCR) | payer MEDICARE, MEDICAID, SELFPAY ==
[2022-11-26 02:16] VITALS: BMI 24.1
[2022-12-05 07:01] LABS: International Normalized Ratio 1.8; Prothrombin Time (Protime)PT. 20.6 SECONDS (11.7-14.9)
[2022-12-11 07:58] LABS: International Normalized Ratio 2.2; Prothrombin Time (Protime)PT. 24.4 SECONDS (11.7-14.9)
== END 2022-12-11 07:00 | disposition home or self-care (01) ==
LOC: LAB 05:59
PROVIDERS: Family Provider Family Medicine; PCP Family Medicine; Referring Provider Nurse Practitioner Family; Visit Provider Nurse Practitioner Family
DX: Z79.01 Long term (current) use of anticoagulants; I48.0 Paroxysmal atrial fibrillation
CPT/HCPCS: 36415; 85610

== ENCOUNTER 2023-01-15 18:21 | Emergency (ER) | payer MEDICARE, MEDICAID, SELFPAY ==
[2023-01-15 18:22] VITALS: BP 133/95; PULSE 74; RESP 19; TEMP 36.6; O2SAT 100; BMI 27.0
--- NOTE | 2023-01-15 20:39 | EDS_ITS ---
HPI History of Present Illness Chief Complaint: Abn Labs Informant: patient Narrative Narrative: Patient was told to come in due to a high INR. Patient states he has been on Coumadin for atrial fibrillation. He takes 4 mg a day except 6 mg on Wednesdays. They were trying to get his levels up because he was at about 1.7. They checked the blood today and they got an INR greater than 19.5. Patient states he feels fine. He is not having any bruising or bleeding. No bleeding with gums. No blood or black in the stool. No blood in the urine. No lightheadedness. He did eat a lot of mushrooms recently but that was just done yesterday. These were bought at the store and commercially available. He has not changed his dose. Overall the patient has asymptomatic coagulopathy. 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 Near syncope Osteoporosis Paroxysmal atrial fibrillation Paroxysmal atrial tachycardia Pulmonary emphysema Scabies Shortness of breath on exertion Tachycardia Tobacco dependence Type 2 diabetes mellitus Home Medications omega 0-jpf-cws-fish oil 500 mg (200mg-300mg)-1,000 mg capsule 1 ea PO DAILY 06/18/19 [History Last Taken Unknown] cholecalciferol (vitamin D3) 250 mcg (10,000 unit) capsule 250 mcg PO DAILY 10/13/19 [History Last Taken Unknown] ibuprofen 800 mg tablet 800 mg PO .PRN #90 tabs 10/27/21 [Rx Last Taken Unknown] budesonide 160 mcg-glycopyr 9 mcg-formot 4.8 mcg/actuation HFA inhaler (Breztri Aerosphere) 2 inh inhalation BID #10.7 grams 06/14/22 [Rx Last Taken Unknown] guaifenesin 600 mg tablet, extended release 12 hr 600 mg PO Q12H PRN congestion #14 tabs 07/12/22 [Rx Last Taken Unknown] denosumab 60 mg/mL subcutaneous syringe (Prolia) 60 mg subcut [id number] #1 mL 10/12/22 [Rx Last Taken Unknown] diltiazem HCl 180 mg capsule,extended release 24 hr 180 mg PO BID #180 caps 11/03/22 [Rx Last Taken Unknown] dofetilide 500 mcg capsule 500 mcg PO BID heart #180 caps 11/03/22 [Rx Last Taken Unknown] potassium chloride 10 mEq tablet,extended release(part/cryst) 10 meq PO DAILY #90 tabs 11/03/22 [Rx Last Taken Unknown] warfarin 4 mg tablet 4 mg PO DAILY #90 tabs 11/03/22 [Rx Last Taken Unknown] albuterol sulfate 90 mcg/actuation aerosol inhaler 2 puff inhalation Q6H PRN shortness of breath or wheezing #8.5 grams 12/14/22 [Rx Last Taken Unknown] pantoprazole 40 mg tablet,delayed release 40 mg PO DAILY #90 tabs 01/10/23 [Rx Last Taken Unknown] Allergy/AdvReac Type Severity Reaction Status Date / Time secobarbital sodium Allergy Unknown Verified 01/15/23 18:24 [From [place]] venom-honey bee Allergy Anaphylaxis Verified 01/15/23 18:24 [bee venom (honey bee)] Family History Mother Diabetes Hypertension Myocardial infarction Surgical History History of cardiac radiofrequency ablation (~04/2008) History of hip replacement History of left hip replacement Status post peripheral artery angioplasty Social History household members: none Smoking Status: Former smoker Tobacco: How many years used: 50 how long ago did patient quit smokin alcohol intake: current alcohol intake frequency: a few times a month Alcohol type: beer substance use type: does not use caffeine: No ROS ROS ED ROS Narrative A complete review of systems was performed and is negative except as documented in the history of present illness. Some specific details below. Constitutional: No recent fevers or chills. No malaise. No lightheadedness. EYE: No discharge, visual complaints, or pain. ENT: No difficulty swallowing. No swelling. No pain. No reflux symptoms. No epistaxis CV: No chest pain or palpitations. Respiratory: No dyspnea. No hemoptysis. GI: No abdominal pain. No nausea vomiting diarrhea. No blood in stool. No melena. : No frequency dysuria or hematuria. Musculoskeletal: No recent trauma. No pains. No swelling. Skin: No rash. Nondiaphoretic. No bruises. Neuro: No weakness or numbness. Endocrine: No polyuria or polydipsia. EXAM Physical Exam Narrative Exam Narrative: CONSTITUTIONAL: Patient is nontoxic in appearance. The patient looks comfortable. Work of breathing looks normal. HEENT: No notable trauma. Mucous membranes moist. No sinus tenderness. No indication of pain with swallowing. No bleeding or petechiae. EYES: No conjunctival injection. No proptosis. No subconjunctival hemorrhage. NECK:No JVD. No stridor. CARDIOVASCULAR: Regular rate. Regular rhythm. No notable murmur. No JVD. RESPIRATORY: No respiratory distress. Breathing is unlabored. No wheezes. No rhonchi. No rales. No pain with a deep breath. No chest wall tenderness. GASTROINTESTINAL: Not distended. Bowel sounds are normal. No tenderness. No guarding. No rebound. No palpable mass. No bruit is heard. GENITOURINARY: No tenderness over the bladder. No CVA tenderness. MUSCULOSKELETAL: Atraumatic. No peripheral edema. No cord. No tenderness along the deep venous system. No asymmetry. No distended veins. NEUROLOGICAL: Patient is alert and appropriate. No focal deficit noted. SKIN: No noted rashes. No diaphoresis. I see no bruising purpura petechia or abnormal findings. PSYCHIATRIC: Patient is calm. Mood is appropriate. Const Vital Signs: 01/15/23 18:22 01/15/23 19:21 Temperature 97.9 F Temperature Source Temporal Pulse Rate 74 Respiratory Rate 19 H Respiratory Effort Normal Non-Labored Respiratory Pattern Normal Blood Pressure 133/95 H Blood Pressure Mean 107 Pulse Ox 100 Oxygen Delivery Method Room Air MDM MDM MDM Narrative Medical decision making narrative: Patient CBC is normal including platelets and hemoglobin. Patient's INR is just a little subtherapeutic for us. It is 1.9 rather than the greater than 19.5 from earlier. Patient's electrolytes are normal. Patient's liver function test are normal. These were checked because he had also had mushrooms recently. We did do a type and screen in case he needed blood products to get ahead of the curve. But it ends up it was a lab error. This matches the clinical situation which is a slowly rising INR from 1.7 with just a very small change in his warfarin dosing. He is safe to follow-up as an outpatient. We discussed reasons to return. Lab Data Attestation: I reviewed the patient's lab results. Labs: Laboratory Results - last 24 hr 01/15/23 01/15/23 01/15/23 20:09 20:09 20:09 WBC 7.8 RBC 4.72 Hgb 14.1 Hct 43.1 MCV 91.3 MCH 29.9 MCHC 32.7 RDW Std Deviation 46.4 H RDW Coeff of Vivek 13.9 Plt Count 285 MPV 9.8 Immature Gran % (Auto) 0.500 Neut % (Auto) 56.7 Lymph % (Auto) 24.1 [place] % (Auto) 11.1 H Eos % (Auto) 6.4 H Baso % (Auto) 1.2 H Absolute Neuts (auto) 4.4 Absolute Lymphs (auto) 1.87 Nucleated RBC % 0 PT 22.2 H INR 1.9 Sodium 139 Potassium 3.8 Chloride 103 Carbon Dioxide 31.0 Anion Gap 5 BUN 12 Creatinine 1.14 Estim Creat Clear Calc 58.79 Est GFR (MDRD) Af Amer 82 Est GFR (MDRD) Non-Af 68 BUN/Creatinine Ratio 10.5 Glucose 87 Calcium 8.8 Total Bilirubin 0.40 AST 22 ALT 25 Alkaline Phosphatase 59 Total Protein 7.7 Albumin 3.6 Globulin 4.1 Albumin/Globulin Ratio 0.9 Blood Type Antibody Screen 01/15/23 20:09 WBC RBC Hgb Hct MCV MCH MCHC RDW Std Deviation RDW Coeff of Vivek Plt Count MPV Immature Gran % (Auto) Neut % (Auto) Lymph % (Auto) [place] % (Auto) Eos % (Auto) Baso % (Auto) Absolute Neuts (auto) Absolute Lymphs (auto) Nucleated RBC % PT INR Sodium Potassium Chloride Carbon Dioxide Anion Gap BUN Creatinine Estim Creat Clear Calc Est GFR (MDRD) Af Amer Est GFR (MDRD) Non-Af BUN/Creatinine Ratio Glucose Calcium Total Bilirubin AST ALT Alkaline Phosphatase Total Protein Albumin Globulin Albumin/Globulin Ratio Blood Type O POSITIVE Antibody Screen NEGATIVE Discharge Plan Triage Chief Complaint: Abn Labs ED Provider: Sadi Daniel Dx/Rx/DC Orders Clinical Impression: Warfarin-induced coagulopathy, Abnormal laboratory test result Instructions: What to Know When Taking?Warfarin Prescriptions: No Action cholecalciferol (vitamin D3) 250 mcg (10,000 unit) capsule 250 mcg (10,000 unit) capsule 250 mcg PO DAILY ibuprofen 800 mg tablet 800 mg PO .PRN Qty: 90 0RF Prolia 60 mg/mL syringe 60 mg subcut [id number] Qty: 1 1RF Breztri Aerosphere 160-9-4.8 mcg/actuation HFA aerosol inhaler 2 inh inhalation BID Qty: 10.7 6RF guaifenesin 600 mg tablet extended release 12hr 600 mg PO Q12H PRN (Reason: congestion) Qty: 14 0RF albuterol sulfate 90 mcg/actuation HFA aerosol inhaler 2 puff inhalation Q6H PRN (Reason: shortness of breath or wheezing) Qty: 8.5 1RF pantoprazole 40 mg tablet,delayed release (DR/EC) 40 mg PO DAILY Qty: 90 3RF omega 7-hru-ctw-fish oil 1 EACH capsule 1 ea PO DAILY dofetilide 500 mcg capsule 500 mcg PO BID Qty: 180 3RF potassium chloride 10 mEq tablet,ER particles/crystals 10 meq PO DAILY Qty: 90 3RF Label Comments: supplement warfarin 4 mg tablet 4 mg PO DAILY Qty: 90 4RF Protocol: Dose Management Condition: Sunday Dose/Route: 4 mg Instruction: 1 x 4 mg tablet Condition: Sunday Dose/Route: 4 mg Instruction: 1 x 4 mg tablet Condition: Sunday Dose/Route: 4 mg Instruction: 1 x 4 mg tablet Condition: Sunday Dose/Route: 6 mg Instruction: 1.5 x 4 mg tablets Condition: Dose/Route: 4 mg Instruction: 1 x 4 mg tablet Condition: Sunday Dose/Route: 4 mg Instruction: 1 x 4 mg tablet Condition: Sunday Dose/Route: 4 mg Instruction: 1 x 4 mg tablet Protocol Text: Adjustment Start Date: Sunday01/03/23 INR Value: 1.7 INR Date: 01/03/23 Recheck Date: 01/17/23 Rx Instructions: Or as directed for dose changes diltiazem HCl 180 mg capsule,extended release 24hr 180 mg PO BID Qty: 180 3RF Primary Care Provider: Jahaira Cerna Referrals: Jahaira Cerna, DO [Primary Care Provider] - 3-5 Days Disposition Disposition: Home, Self Care
[2023-01-15 20:52] LABS: Absolute Lymphocyte Count 1.87 X10^3/uL (0.83-4.51); Absolute Neutrophil Count 4.4 X10^3/uL (2.0-7.7); Basophil# 0.09 X10^3/uL; Basophil% 1.2 % (0-1); Eosinophils% 6.4 % (0-5); Hematocrit 43.1 % (40-54); Hemoglobin 14.1 g/dL (13.0-16.5); Lymphocyte # 1.87 X10^3/ul (0.83-4.51); Lymphocyte % 24.1 % (19-41); Mean Corp Hgb Conc 32.7 g/dL (32-36); Mean Corpuscular Hgb 29.9 pg (27.0-32.0); Mean Corpuscular Volume 91.3 fL (80-94); Mean Platelet Vol. 9.8 fl (6.2-12.0); Monocyte# 0.86 X10^3/uL; Monocyte% 11.1 % (0-10); NRBC Flagged by Analyzer 0 % (0-5); Neutrophil # 4.41 X10^3/uL (2.7-7.7); Neutrophil % 56.7 % (47-70); Platelet Count 285 K/mm3 (150-450); RBC Distribution Width CV 13.9 % (11.6-14.6); RBC Distribution Width SD 46.4 fl (35.1-43.9); Red Blood Count 4.72 M/mm3 (4.6-6.2); White Blood Count 7.8 K/mm3 (4.4-11.0)
[2023-01-15 21:08] LABS: ALB/GLOB Ratio 0.9 RATIO (0.9-2.4); AST(SGOT) 22 U/L (15-37); Alanine Aminotransfer ALT/SGPT 25 U/L (16-61); Albumin, Serum 3.6 g/dL (3.2-5.0); Alkaline Phosphatase 59 U/L (45-117); Anion Gap 5 (5-15); BUN 12 mg/dL (7-18); BUN/Creat Ratio 10.5 RATIO (10-20); Calcium,Total 8.8 mg/dL (8.5-10.1); Chloride 103 mmol/L (98-107); Creatinine, Serum 1.14 mg/dL (0.70-1.30); EST Glomerular Filtration Rate 68 mL/min (>60); Est Glom Filt Rate - Afr Amer 82 mL/min (>60); Estimated Creatinine Clearance 58.79 ml/min; Globulin 4.1 g/dL (2.2-4.2); Glucose 87 mg/dL (74-106); Potassium 3.8 mmol/L (3.5-5.1); Protein, Total 7.7 g/dL (6.4-8.2); Sodium Level 139 mmol/L (136-145)
[2023-01-15 21:09] LABS: International Normalized Ratio 1.9; Prothrombin Time (Protime)PT. 22.2 SECONDS (11.7-14.9)
[2023-01-15 22:12] VITALS: BP 129/88; PULSE 70; RESP 14; O2SAT 99
== END 2023-01-15 22:23 | disposition home or self-care (01) ==
PROVIDERS: Emergency Provider Emergency Medicine; PCP Family Medicine; Visit Provider Emergency Medicine
DX: D68.8 Other specified coagulation defects (principal); J43.9 Emphysema, unspecified; I48.0 Paroxysmal atrial fibrillation; E11.9 Type 2 diabetes mellitus without complications; Z87.891 Personal history of nicotine dependence; E78.00 Pure hypercholesterolemia, unspecified; I10 Essential (primary) hypertension; Z79.01 Long term (current) use of anticoagulants; Z79.899 Other long term (current) drug therapy; Z79.1 Long term (current) use of non-steroidal anti-inflammatories (NSAID); Z79.51 Long term (current) use of inhaled steroids; K21.9 Gastro-esophageal reflux disease without esophagitis; Z96.642 Presence of left artificial hip joint; Z98.62 Peripheral vascular angioplasty status; R79.9 Abnormal finding of blood chemistry, unspecified; M81.0 Age-related osteoporosis without current pathological fracture; E55.9 Vitamin D deficiency, unspecified
CPT/HCPCS: 36415; 80053; 85025; 85610; 86850; 86900; 86901; 99283; A4216

== ENCOUNTER → 2023-01-18 | Outpatient (CLI) | payer MEDICARE, MEDICAID, SELFPAY ==
--- NOTE | 2023-01-18 17:51 | CT_ITS ---
EXAM: CT Abdomen And Pelvis W/ Contrast Injection HISTORY: LLQ pain, night sweats, diverticula TECHNIQUE: Oral and amp;amp; IV Readi-CAT and amp;amp; 100mL Isovue-300 . Oral Contrast: without. Sagittal and coronal images were reconstructed. RADIATION DOSAGE (If Supplied By Facility): CTDIvol = ( 17.09 ) mGy, DLP = ( 849.04 ) mGycm Individualized dose optimization techniques were used for this CT. COMPARISON: CT chest 12/07/2022. LIMITATIONS: None. FINDINGS: LOWER CHEST: Emphysematous changes. Calcified granuloma right lower lobe. 7 mm nodule right middle lobe. Not significantly changed compared to prior. Coronary artery calcifications. LIVER: Unremarkable. GALLBLADDER/BILE DUCTS: Unremarkable. PANCREAS: Unremarkable. SPLEEN: Unremarkable. ADRENAL GLANDS: Unremarkable. KIDNEYS / URETERS: A few small cysts in the kidneys, largest in the left kidney is approximately 2.4 cm. No hydronephrosis. BOWEL / MESENTERY: No oral contrast present. Diverticula throughout the colon. Suboptimal assessment of the sigmoid colon region due to artifact from surgical hardware in the left hip. No definite inflammatory changes in the region.. No bowel obstruction. APPENDIX: Not identified. PERITONEUM: No free air. No free fluid. VESSELS: Abdominal aorta is normal caliber. Atherosclerotic calcifications. RETROPERITONEUM: Unremarkable. REPRODUCTIVE ORGANS: Unremarkable. BLADDER: Unremarkable. ABDOMINAL WALL: Small umbilical hernia contains only fat, no bowel. BONES: Surgical hardware in the left hip. Multiple compression fractures. T12 moderate, and L2 marked compression fractures are unchanged compared to prior CT chest. L4 moderate compression fracture with approximately 50% vertebral body height loss is not included on the prior study but is likely nonacute. Degenerative changes lumbar spine. OTHER: None. CT/Abdomen/Pelvis WITH Contrast IMPRESSION: 1. Colonic diverticulosis without evidence of acute diverticulitis. 2. Pulmonary nodule. Continued CT follow-up as per prior CT chest studies. Electronically Signed: Yenny Harrison MD at 19:33 EDT ,
== END | disposition home or self-care (01) ==
LOC: CT 17:49
PROVIDERS: PCP Family Medicine; Referring Provider Nurse Practitioner Adult Health; Visit Provider Nurse Practitioner Adult Health
DX: R10.32 Left lower quadrant pain (principal)
CPT/HCPCS: 74177; Q9967

== ENCOUNTER 2023-01-24 06:05 | Outpatient (RCR) | payer MEDICARE, MEDICAID, SELFPAY ==
[2022-12-28 08:21] VITALS: BMI 24.1
[2023-01-03 08:26] LABS: International Normalized Ratio 1.7; Prothrombin Time (Protime)PT. 19.7 SECONDS (11.7-14.9)
[2023-01-15 17:31] LABS: International Normalized Ratio > 19.5; Prothrombin Time (Protime)PT. > 120.0 SECONDS (11.7-14.9)
[2023-01-24 07:58] LABS: International Normalized Ratio 2.2; Prothrombin Time (Protime)PT. 24.5 SECONDS (11.7-14.9)
== END 2023-01-24 18:00 | disposition home or self-care (01) ==
LOC: LAB 06:05
PROVIDERS: Family Provider Family Medicine; PCP Family Medicine; Referring Provider Nurse Practitioner Family; Visit Provider Nurse Practitioner Family
DX: I48.91 Unspecified atrial fibrillation (principal); Z79.01 Long term (current) use of anticoagulants
CPT/HCPCS: 36415; 85610

== ENCOUNTER 2023-02-20 13:00 | Outpatient (RCR) | payer MEDICARE, MEDICAID, SELFPAY ==
[2023-01-27 01:20] VITALS: BMI 24.1
[2023-02-20 13:48] LABS: Prothrombin Time (Protime)PT. 22.5 SECONDS (11.7-14.9)
== END 2023-02-26 18:00 | disposition home or self-care (01) ==
LOC: LAB 13:00
PROVIDERS: Family Provider Family Medicine; PCP Family Medicine; Referring Provider Nurse Practitioner Family; Visit Provider Nurse Practitioner Family
DX: I48.91 Unspecified atrial fibrillation (principal); Z79.01 Long term (current) use of anticoagulants
CPT/HCPCS: 36415; 85610

== ENCOUNTER 2023-03-21 06:02 | Outpatient (RCR) | payer MEDICARE, MEDICAID, SELFPAY ==
[2023-02-27 01:09] VITALS: BMI 24.1
[2023-03-21 07:23] LABS: International Normalized Ratio 2.1; Prothrombin Time (Protime)PT. 23.6 SECONDS (11.7-14.9)
== END 2023-03-21 18:00 | disposition home or self-care (01) ==
LOC: LAB 06:02
PROVIDERS: Family Provider Family Medicine; PCP Family Medicine; Referring Provider Nurse Practitioner Family; Visit Provider Nurse Practitioner Family
DX: Z79.01 Long term (current) use of anticoagulants; I48.0 Paroxysmal atrial fibrillation
CPT/HCPCS: 36415; 85610

== ENCOUNTER 2023-04-17 06:03 | Outpatient (RCR) | payer MEDICARE, MEDICAID, SELFPAY ==
[2023-03-29 23:27] VITALS: BMI 24.1
[2023-04-17 08:24] LABS: International Normalized Ratio 1.9; Prothrombin Time (Protime)PT. 22.2 SECONDS (11.7-14.9)
== END 2023-04-17 18:00 | disposition home or self-care (01) ==
LOC: LAB 06:03
PROVIDERS: Family Provider Family Medicine; PCP Family Medicine; Referring Provider Nurse Practitioner Family; Visit Provider Nurse Practitioner Family
DX: Z79.01 Long term (current) use of anticoagulants; I48.0 Paroxysmal atrial fibrillation
CPT/HCPCS: 36415; 85610

== ENCOUNTER → 2023-05-02 | Outpatient (CLI) | payer MEDICARE, MEDICAID, SELFPAY ==
[2023-05-02 15:30] LABS: Uric Acid 8.7 mg/dL (3.5-7.2)
== END | disposition home or self-care (01) ==
LOC: MTLAB 11:55
PROVIDERS: PCP Family Medicine; Referring Provider Family Medicine; Visit Provider Family Medicine
DX: M10.9 Gout, unspecified (principal)
CPT/HCPCS: 36415; 84550

== ENCOUNTER 2023-05-29 05:56 | Outpatient (RCR) | payer MEDICARE, MEDICAID, SELFPAY ==
[2023-04-29 04:20] VITALS: BMI 24.1
[2023-04-30 08:37] LABS: International Normalized Ratio 2.3; Prothrombin Time (Protime)PT. 25.8 SECONDS (11.7-14.9)
[2023-05-29 06:59] LABS: International Normalized Ratio 2.4
== END 2023-05-29 18:00 | disposition home or self-care (01) ==
LOC: LAB 05:56
PROVIDERS: Family Provider Family Medicine; PCP Family Medicine; Referring Provider Nurse Practitioner Family; Visit Provider Nurse Practitioner Family
DX: Z79.01 Long term (current) use of anticoagulants (principal); I48.0 Paroxysmal atrial fibrillation
CPT/HCPCS: 36415; 85610

== ENCOUNTER 2023-06-01 12:21 | Outpatient (CLI) | payer MEDICARE, MEDICAID, SELFPAY ==
[2023-06-01 12:28] VITALS: BP 134/77; PULSE 75; RESP 16; TEMP 36.1; O2SAT 94
[2023-06-01] MEDS: DENOSUMAB 60 MG/ML SC (12:32)
== END 2023-06-01 12:22 | disposition home or self-care (01) ==
PROVIDERS: PCP Family Medicine; Referring Provider Internal Medicine Endocrinology, Diabetes & Metabolism; Visit Provider Internal Medicine Endocrinology, Diabetes & Metabolism
DX: M81.0 Age-related osteoporosis without current pathological fracture (principal)
CPT/HCPCS: 96372; J0897

== ENCOUNTER 2023-07-10 11:25 | Day surgery (SDC) | payer MEDICARE, MEDICAID, SELFPAY ==
[2023-07-10] VITALS (7 sets, daily range): BP systolic 99–126; BP diastolic 70–84; PULSE 53–59; RESP 16–18; TEMP 36.1–36.4; O2SAT 95–100; BMI 25.7
--- NOTE | 2023-07-10 | IMM_PTH ---
PATIENT: ENRIQUE MCNALLY III LOC: EN U#:[id number] AGE/SX: 67/M ROOM: RE07/10/[address]: Dr. Pablo Pichardo DO : 1955 BED: DIS: 07/10/2023 SPEC #: [id number] RECD: 07/12/23 12:15 STATUS: LUKE RECarlos #: [id number] DERRICK: 07/10/23 00:[address]: Pablo Pichardo DEPT: IMMUNOHISTOCHEMISTRY RECD BY: Natalia Batista ENTERED: 07/12/23 12:16 SP TYPE: IMMUNO OTHR DR: Jahaira Cerna DO Tissues: Esophageal mucous membrane Procedures: P53 (initial) KI-67 (add) MOC-31 (add) PHYSICIAN & INSTITUTION [place] [id number] SPECIMEN INFORMATION: Tissue Source: Distal esophagus Clinical Info: Vergara's esophagus Specimen Number: [id number] CPT code: 37167, 39722 x2 METHODOLOGY: Deparaffinized sections of prefer/formalin-fixed tissue or PAP/DQ stained slides are incubated with monoclonal/polyclonal antibodies/oligonucleotide probes. Localization is made via biotin free immunoperoxidase method. Appropriate controls are performed and reacted as expected. Results on target cell population are indicated in the following table: RESULTS: ANTIBODY / CLONE RESULT P53 (DO-7) positive, wild type pattern Ki-67 (30-9) positive, low MOC-31 (4561) positive These tests were developed and their performance characteristics determined by [facility]. They may not have been cleared or approved by the U.S. Food and Drug Administration. The FDA has determined that such clearance or approval is not necessary. The above immunohistochemical/dualISH markers are ordered and reviewed by the Pathologist. INTERPRETATION: Distal esophagus, biopsy: No evidence of dysplasia. AM:erin 07/13/2023
[2023-07-10 12:25] LABS: Bedside Glucose 80 mg/dL (74-106)
[2023-07-10] MEDS: Lactated Ringers 1,000 ML 15 ML IV (12:30)
--- NOTE | 2023-07-10 12:41 | HP.PCM_ITS ---
History and Physical Date of Admission: 07/10/23 ENRIQUE MCNALLY, is a 67 M who presents to the office today for 6 month f/u long segment Vergara's esophagus w/o dysplasia. He has a medium sized hiatal hernia. He takes pantoprazole 40 mg daily. Reports he has no acid reflux or heartburn or dysphagia. Denies nausea, vomiting, early satiety. No diarrhea or constipation. No melena or hematochezia. Weight is stable. He has been waking from night sweats and having LLQ>RLQ discomfort for the past 4 days. Has diverticula ROS Const Constitutional: Positive for fatigue, fever(s) and weight change ENT ENT: No difficulty swallowing Gastro GI: Positive for abdominal pain, bloating, change in bowel habits, constipation, diarrhea and excessive flatus; No belching, change in stool character, coffee ground emesis, cramping, heartburn, difficulty swallowing, feeling full early, incontinent of stools, Vomiting blood/hematemesis, Blood in stool, loose stools, Black,tarry stools, nausea/dyspepsia, pain with swallowing, vomiting or other Musc Musculoskeletal: Positive for joint pain, joint swelling, muscle cramps, stiffness and Arthritis Skin Skin: No yellowing of the eye or itchy eyes Psych Psychiatric: No anxiety and No depression Endo Endocrine: Positive for fatigue and weight change Aller/Imm Allergy/Immunologic: No itchy eyes Kevin/Lymp Hematologic/Lymphatic: Positive for easy bruising; No easy bleeding Exam Const General: cooperative, comfortable and no acute distress Nutritional Appearance: average body habitus Orientation: alert, awake and oriented x3 Eyes Sclera: sclerae normal Resp Effort & Inspection: normal respiratory effort GI Inspection: normal to inspection Palpation: soft, no hepatosplenomegaly, no masses and nontender Quality Reporting Tobacco Screening ([facility] 138) Smoking Status: Former smoker Assessment and Plan Assessment and Plan (1) Barretts esophagus: Status: Chronic Plan: Next EGD in 6 months Continue pantoprazole 40 mg qam Next colonoscopy due in 2026 (2) LLQ abdominal pain: Status: Acute Plan: Acute lower abd pain with night sweats, CT abd pel with contrast is ordered Orders: Orders Abdomen/Pelvis WITH Contrast Today R10.32 - Left lower quadrant pain Medications: Refilled pantoprazole 40 mg PO DAILY 90 tabs 3RF I have examined the patient and the H&P has been reviewed. There are no clinical changes since date of exam.
--- NOTE | 2023-07-10 12:45 | EGD_PTH ---
PATIENT: ENRIQUE MCNALLY III LOC: EN U#:[id number] AGE/SX: 67/M ROOM: RE07/10/[address]: Dr. Pablo Pichardo DO : 1955 BED: DIS: 07/10/2023 SPEC #: [id number] RECD: 07/11/23 07:48 STATUS: LUKE JAMEEL #: [id number] DERRICK: 07/10/23 12:[address]: Pablo Pichardo DEPT: SURGICAL PATHOLOGY RECD BY: Natalia Batista ENTERED: 07/11/23 07:48 SP TYPE: EGD BIOPSY OT DR: Jahaira Cerna DO Tissues: Esophageal mucous membrane Procedures: Surgery Specimen Level IV HEADER OPER[place] [place] with [place] PRE-OP DIAGNOSIS: Vergara's esophagus, Q abdominal pain TISSUE SUBMITTED: Distal esophagus biopsies MICROSCOPIC DIAGNOSIS Distal esophagus, biopsy: Gastroesophageal junctional mucosa with chronic inflammation. Extensive goblet cell metaplasia consistent with Vergara's esophagus. No evidence of dysplasia. See comment. AM:erin 07/12/2023 COMMENT Alcian blue/PAS stain with matched control supports the above diagnosis. Immunohistochemistry ([id number]) for P53 and Ki-67 will be performed and results will be reported separately. MICROSCOPIC DESCRIPTION Slides are reviewed. GROSS DESCRIPTION Received in fixative is one container labeled with the patient's name and designated distal esophagus biopsy. The specimen consists of multiple irregular fragments of light lópez soft tissue that in aggregate measure 2.0 x 0.5 x 0.1 cm. The specimen is totally submitted in one cassette. / SJ:erin 07/11/2023 TC:5 CPT: 86266, 50610
--- NOTE | 2023-07-10 13:19 | OP.EGD_ITS ---
Patient Name: Roger Mart Procedure Date: 07/10/2023 12:52 PM Date of : 1955 Age: 67 Procedure: Upper GI endoscopy Indications: Follow-up of Vergara's esophagus Providers: Pablo Pichardo DO Referring MD: Jahaira Cerna Do Medicines: Monitored Anesthesia Care Patient Profile: This is a 67 year old male. Refer to note in patient chart for documentation of history and physical. Patient has symptoms of chronic heartburn. Complications: No immediate complications. Procedure: Pre-Anesthesia Assessment: - Prior to the procedure, a History and Physical was performed, and patient medications and allergies were reviewed. The risks and benefits of the procedure and the sedation options and risks were discussed with the patient. All questions were answered and informed consent was obtained. Patient identification and proposed procedure were verified by the physician. Mental Status Examination: normal. Airway Examination: normal oropharyngeal airway and neck mobility. Respiratory Examination: clear to auscultation. Prophylactic Antibiotics: The patient does not require prophylactic antibiotics. Prior Anticoagulants: The patient has taken no anticoagulant or antiplatelet agents. ASA Grade Assessment: II - A patient with mild systemic disease. After reviewing the risks and benefits, the patient was deemed in satisfactory condition to undergo the procedure. The anesthesia plan was to use monitored anesthesia care (MAC). Immediately prior to administration of medications, the patient was re-assessed for adequacy to receive sedatives. The heart rate, respiratory rate, oxygen saturations, blood pressure, adequacy of pulmonary ventilation, and response to care were monitored throughout the procedure. The physical status of the patient was re-assessed after the procedure. After obtaining informed consent, the endoscope was passed under direct vision. Throughout the procedure, the patient's blood pressure, pulse, and oxygen saturations were monitored continuously. The Endoscope was introduced through the mouth, and advanced to the second part of duodenum. The upper GI endoscopy was accomplished without difficulty. The patient tolerated the procedure well. Scope In: 1:07:48 PM Scope Out: 1:13:29 PM Total Procedure Duration Time 0 hours 5 minutes 41 seconds Findings: The esophagus and gastroesophageal junction were examined with white light and narrow band imaging (NBI) from a forward view and retroflexed position. There were esophageal mucosal changes secondary to established long-segment Vergara's disease. These changes involved the mucosa at the upper extent of the gastric folds (40 cm from the incisors) extending to the Z-line (30 cm from the incisors). [place]-colored mucosa was present. The maximum longitudinal extent of these esophageal mucosal changes was 10 cm in length. Mucosa was biopsied with a cold forceps for histology in a targeted manner and in 4 quadrants at intervals of 1 cm in the middle third of the esophagus and in the lower third of the esophagus. One specimen bottle was sent to pathology. Verification of patient identification for the specimen was done. Estimated blood loss was minimal. A medium-sized hiatal hernia was present. Diffuse mildly friable mucosa with no bleeding was found in the entire examined stomach. No gross lesions were noted in the first portion of the duodenum. Impression: - Esophageal mucosal changes secondary to established long-segment Vergara's disease. Biopsied. - Medium-sized hiatal hernia. - Friable gastric mucosa. - No gross lesions in the first portion of the duodenum. Recommendation: - Discharge patient to home. - Resume previous diet. - Continue present medications. - Await pathology results. - Repeat upper endoscopy in 1 year for surveillance. Procedure Code(s): --- Professional --- 18048, Esophagogastroduodenoscopy, flexible, transoral; with biopsy, single or multiple CPT copyright 2021 [employer]. All rights reserved. The codes documented in this report are preliminary and upon design architect review may be revised to meet current compliance requirements. Pablo Pichardo DO 07/10/2023 1:18:38 PM This report has been signed electronically. Number of Addenda: 0 Note Initiated On: 07/10/2023 12:52 PM
--- NOTE | 2023-07-10 13:19 | OP.CCLET_ITS ---
07/10/2023 Jahaira Cerna Do Re : Upper GI endoscopy procedure for Roger Mart Dear Eryn This procedure was performed on Monday, July 10, 2023. My impressions and recommendations are as follows: Impressions : - Esophageal mucosal changes secondary to established long-segment Vergara's disease. Biopsied. - Medium-sized hiatal hernia. - Friable gastric mucosa. - No gross lesions in the first portion of the duodenum. Recommendations : - Discharge patient to home. - Resume previous diet. - Continue present medications. - Await pathology results. - Repeat upper endoscopy in 1 year for surveillance. My findings are described in the full procedure note, which is enclosed. If I can be of further assistance, please feel free to contact me at . Sincerely, Pablo Friend, 07/10/2023 1:18:38 PM This report has been signed electronically.
== END 2023-07-10 14:06 | disposition home or self-care (01) ==
LOC: EN 11:26 → AC 12:22
PROVIDERS: PCP Family Medicine; Referring Provider Family Medicine; Visit Provider Internal Medicine Gastroenterology
PROC: 0DJ08ZZ Inspection of Upper Intestinal Tract, Via Natural or Artificial Opening Endoscopic (ICD-10-PCS; CPT 43235; principal; 2023-07-10 12:40)
DX: K22.70 Barrett's esophagus without dysplasia (principal); K44.9 Diaphragmatic hernia without obstruction or gangrene; Z87.891 Personal history of nicotine dependence; R10.32 Left lower quadrant pain; Z79.899 Other long term (current) drug therapy; K31.89 Other diseases of stomach and duodenum
CPT/HCPCS: 43239; 81002; 82962; 88305; 88341; 88342; J7120; J2405

== ENCOUNTER 2023-07-24 07:27 | Outpatient (RCR) | payer MEDICARE, MEDICAID, SELFPAY ==
[2023-05-29 22:42] VITALS: BMI 24.1
[2023-06-29 07:10] LABS: International Normalized Ratio 2.7; Prothrombin Time (Protime)PT. 29.2 SECONDS (11.7-14.9)
[2023-07-24 08:45] LABS: International Normalized Ratio 2.2; Prothrombin Time (Protime)PT. 25.1 SECONDS (11.7-14.9)
== END 2023-07-29 18:00 | disposition home or self-care (01) ==
LOC: LAB 07:27
PROVIDERS: Family Provider Family Medicine; PCP Family Medicine; Referring Provider Nurse Practitioner Family; Visit Provider Nurse Practitioner Family
DX: Z79.01 Long term (current) use of anticoagulants (principal); I48.0 Paroxysmal atrial fibrillation; M10.9 Gout, unspecified; R73.01 Impaired fasting glucose
CPT/HCPCS: 36415; 83036; 84550; 85610

== ENCOUNTER 2023-08-07 07:38 | Emergency (ER) | payer MEDICARE, MEDICAID, SELFPAY ==
[2023-08-07 07:38] VITALS: BP 162/96; PULSE 82; RESP 14; TEMP 36.2; O2SAT 99; BMI 27.7
--- NOTE | 2023-08-07 08:32 | RAD_ITS ---
STUDY: X-RAY - RIGHT FOOT CLINICAL: Male, 68 years old. Pain - distal 2nd metatarsal. TECHNIQUE: 3 views of the right foot. COMPARISON: None. FINDINGS: Normal talus, calcaneus, and tarsal bones. Normal visualized subtalar, talonavicular, calcaneocuboid, tarsal and tarsometatarsal articulations. Normal metatarsi. Normal metatarsophalangeal joint of the great toe. Normal tibial and fibular sesamoid bones. Normal interphalangeal joint of the great toe. Normal phalanges of the great toe. Normal second through fifth metatarsophalangeal joints. Normal interphalangeal joints and phalanges of the lesser toes. There is no demonstrated fracture. There are mild atherosclerotic calcifications. RAD/Foot min 3 Views IMPRESSION: No demonstrated fracture. Electronically Signed: Miguel A Lora MD at 9:06 EST ,
--- NOTE | 2023-08-07 08:47 | EDS_ITS ---
HPI History of Present Illness Chief Complaint: Lower Extremity Injury Informant: patient Narrative Narrative: 2-day history of nontraumatic pain right foot. Reports history of previously surgery intervention due to poor blood flow. Remote tobacco. He is on warfarin for history of paroxysmal A-fib. He states last testing was a week ago was 2.2. Pain is distal foot over the second toe. Denies any changes in color. Reports previously with vascular issues had changed in color. 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 Near syncope Osteoporosis Paroxysmal atrial fibrillation Paroxysmal atrial tachycardia Pulmonary emphysema Scabies Shortness of breath on exertion Tachycardia Tobacco dependence Type 2 diabetes mellitus Home Medications denosumab 60 mg/mL subcutaneous syringe (Prolia) 60 mg subcut [id number] #1 mL 10/12/22 [Rx Last Taken Unknown] diltiazem HCl 180 mg capsule,extended release 24 hr 180 mg PO BID #180 caps 11/03/22 [Rx Last Taken 07/10/23 05:30] dofetilide 500 mcg capsule 500 mcg PO BID heart #180 caps 11/03/22 [Rx Last Taken Unknown] warfarin 4 mg tablet 4 mg PO DAILY #90 tabs 11/03/22 [Rx Last Taken 07/06/23] pantoprazole 40 mg tablet,delayed release 40 mg PO DAILY #90 tabs 01/10/23 [Rx Last Taken 07/10/23 05:30] albuterol sulfate 90 mcg/actuation aerosol inhaler 2 puff inhalation Q6H PRN shortness of breath or wheezing #8.5 grams 06/18/23 [Rx Last Taken Unknown] allopurinol 100 mg tablet 300 mg PO DAILY 06/18/23 [History Last Taken Unknown] budesonide 160 mcg-glycopyr 9 mcg-formot 4.8 mcg/actuation HFA inhaler (Breztri Aerosphere) 2 inh inhalation BID #10.7 grams 06/18/23 [Rx Last Taken Unknown] furosemide 40 mg tablet 40 mg PO DAILY PRN PRN edema 11/20/23 [History Last Taken Unknown] potassium chloride 10 mEq tablet,extended release(part/cryst) 10 meq PO DAILY 07/05/23 [History Last Taken Unknown] Allergy/AdvReac Type Severity Reaction Status Date / Time secobarbital sodium Allergy Unknown Verified 07/24/23 07:41 [From [place]] venom-honey bee Allergy Anaphylaxis Verified 07/24/23 07:41 [bee venom (honey bee)] Family History Mother Diabetes Hypertension Myocardial infarction Surgical History History of cardiac radiofrequency ablation (~04/2008) History of hip replacement History of left hip replacement Status post peripheral artery angioplasty Social History household members: none Smoking Status: Former smoker Tobacco: How many years used: 50 how long ago did patient quit smokin alcohol intake: current alcohol intake frequency: a few times a month Alcohol type: beer substance use type: does not use caffeine: No ROS ROS ED Constitutional Constitutional ED: Denies chills, fever(s) or sweats Eyes Eyes: Denies change in vision ENT ENT ED: Denies dysphagia or sore throat Cardiovascular Cardiovascular: Denies chest pain, leg edema, palpitations or racing heartbeat Respiratory/Chest Respiratory/Chest: Denies cough, dyspnea or dyspnea on exertion Gastrointestinal Gastrointestinal: Denies abdominal pain, diarrhea, nausea or vomiting Genitourinary Genitourinary ED: Denies dysuria, hematuria or urinary frequency Musculoskeletal Musculoskeletal: Reports extremity pain; Denies back pain or neck pain Integumentary Denies rash or wounds Neurologic Neurologic: Denies headache(s), paresthesias or weakness EXAM Physical Exam Const Vital Signs: 08/07/23 07:38 Temperature 97.1 F L Temperature Source Temporal Pulse Rate 82 Respiratory Rate 14 Blood Pressure 162/96 H Blood Pressure Mean 118 Pulse Ox 99 Oxygen Delivery Method Room Air Positive well nourished and well developed General Appearance ED: well developed and NAD HEENT Reports moist mucous membranes normocephalic and atraumatic Eyes PERRL, EOMs intact bilaterally and conjunctivae normal General Eye ED: Yes normal appearance of both eyes Neck no lymphadenopathy and supple General: Negative for tenderness Chest Wall Chest: Negative for tenderness Resp normal respiratory effort and normal air movement Effort and Inspection: symmetric chest movement; Negative for respiratory distress Cardio regular rate, regular rhythm and no murmurs Peripheral Pulses: pulses 2+ throughout GI normal to inspection, nondistended, normoactive bowel sounds and non-tender Palpation: Negative for guarding or rebound tenderness present Back/Spine no CVA tenderness and no thoracic nor lumbar tenderness Extremity Extremity Narrative: Right lower extremity: No knee or ankle tenderness. No midfoot tenderness. There is tender palpation plantar aspect distal second MT. There is no deformities. No tenderness of the phalanxes. Cap refills less than 3 seconds throughout. No cyanosis. General Extremety ED: Negative for edema or tenderness General Extremity: Negative for edema Neuro oriented x3 and no sensory deficits noted Sensorium / Orientation: awake and alert Skin no rashes or lesions noted and no wounds MDM MDM MDM Narrative Medical decision making narrative: Interventions / MDM: Differential diagnosis: Contusion Diagnosis considered but do not suspect: Fracture however x-ray negative. No clinical vascular insufficiency. No clinical cellulitis My EKG interpretation: N/A Imaging independently reviewed and interpreted by myself: Right foot x-ray 3 views: No fracture noted. No radiopaque foreign bodies External documents reviewed: N/A Test considered but not ordered:N/A ED course: Patient nontraumatic pain in his foot however is tender and bony prominences of the distal second metatarsal. Skin is intact. No clinical vascular insufficiency. X-ray ordered, INR ordered for further evaluation. X-ray negative. INR 3.1 slightly supratherapeutic. No clinical infection. Reassured he will use Tylenol for which he has at home as needed he will monitor symptoms. Outpatient follow-up. All questions were answered. Re-evaluation: stable Disposition discussed with patient/family/significant other: Patient Case discussed with consulting clinician: N/A This note was generated with Skulpt dictation software. It may contain incorrect words, spelling, and punctuation that were not noted in checking the note before signing. Lab Data Attestation: I reviewed the patient's lab results. Labs: Laboratory Results - last 24 hr 08/07/23 08:45 PT 32.2 H INR 3.1 Radiography Diagnostic Testing: Clinical Impression(s) from Imaging Studies Foot X-Ray 08/07/23 08:32 IMPRESSION: No demonstrated fracture. Electronically Signed: Miguel A Lora MD at 9:06 EST , Discharge Plan Triage Chief Complaint: Lower Extremity Injury ED Provider: Malcolm Lee Dx/Rx/DC Orders Clinical Impression: Foot pain, right, Chronic anticoagulation, Paroxysmal atrial fibrillation Instructions: Shoes Choosing for Comfort Prescriptions: No Action Prolia 60 mg/mL syringe 60 mg subcut [id number] Qty: 1 1RF pantoprazole 40 mg tablet,delayed release (DR/EC) 40 mg PO DAILY Qty: 90 3RF furosemide 40 mg tablet 40 mg PO DAILY PRN PRN (Reason: edema) Patient Comments: TAKE 1 TABLET BY MOUTH NEEDED allopurinol 100 mg tablet 300 mg PO DAILY Patient Comments: TAKE 1 TABLET BY MOUTH DAILY Breztri Aerosphere 160-9-4.8 mcg/actuation HFA aerosol inhaler 2 inh inhalation BID Qty: 10.7 6RF albuterol sulfate 90 mcg/actuation HFA aerosol inhaler 2 puff inhalation Q6H PRN (Reason: shortness of breath or wheezing) Qty: 8.5 6RF potassium chloride 10 mEq tablet,ER particles/crystals 10 meq PO DAILY Patient Comments: TAKE 1 TABLET BY MOUTH ONCE DAILY dofetilide 500 mcg capsule 500 mcg PO BID Qty: 180 3RF warfarin 4 mg tablet 4 mg PO DAILY Qty: 90 4RF Protocol: Dose Management Condition: Sunday Dose/Route: 4 mg Instruction: 1 x 4 mg tablet Condition: Sunday Dose/Route: 4 mg Instruction: 1 x 4 mg tablet Condition: Sunday Dose/Route: 4 mg Instruction: 1 x 4 mg tablet Condition: Sunday Dose/Route: 6 mg Instruction: 1.5 x 4 mg tablets Condition: Dose/Route: 4 mg Instruction: 1 x 4 mg tablet Condition: Sunday Dose/Route: 4 mg Instruction: 1 x 4 mg tablet Condition: Sunday Dose/Route: 4 mg Instruction: 1 x 4 mg tablet Protocol Text: Adjustment Start Date: Sunday07/24/23 INR Value: 2.2 INR Date: 07/24/23 Recheck Date: 08/21/23 Patient Comments: LAST DOSE 07/06 Rx Instructions: Or as directed for dose changes diltiazem HCl 180 mg capsule,extended release 24hr 180 mg PO BID Qty: 180 3RF Primary Care Provider: Jahaira Cerna Referrals: Jahaira Cerna, [Primary Care Provider] - 1 Week Activity Restrictions/Additional Instructions: Foot x-ray is negative. Your INR 3.1. No clinical signs of gout concerns. You have good vascular flow with normal capillary refill. Use Tylenol every 6 hours as needed and follow-up with your doctor for reevaluation. Disposition Disposition: Home, Self Care Discharge Date/Time: 08/07/23 09:49
[2023-08-07 09:08] LABS: International Normalized Ratio 3.1; Prothrombin Time (Protime)PT. 32.2 SECONDS (11.7-14.9)
== END 2023-08-07 09:49 | disposition home or self-care (01) ==
PROVIDERS: Emergency Provider Emergency Medicine; PCP Family Medicine; Visit Provider Emergency Medicine
DX: M79.671 Pain in right foot (principal); I48.0 Paroxysmal atrial fibrillation; Z87.891 Personal history of nicotine dependence; Z79.01 Long term (current) use of anticoagulants; X58.XXXA Exposure to other specified factors, initial encounter; I10 Essential (primary) hypertension; E78.00 Pure hypercholesterolemia, unspecified; M81.0 Age-related osteoporosis without current pathological fracture; Z79.899 Other long term (current) drug therapy; K21.9 Gastro-esophageal reflux disease without esophagitis; M10.9 Gout, unspecified; Z96.642 Presence of left artificial hip joint; Z98.61 Coronary angioplasty status
CPT/HCPCS: 73630; 85610; 99282

== ENCOUNTER 2023-08-15 09:31 | Day surgery (SDC) | payer MEDICARE, MEDICAID, SELFPAY ==
[2023-08-15 09:46] LABS: INR Fingerstick 1.4; Prothrombin Time Fingerstick 15.6 SEC (11.7-14.9)
[2023-08-15 09:59] VITALS: BP 124/83; PULSE 62; RESP 16; TEMP 36.3; O2SAT 99; BMI 25.7
[2023-08-15] MEDS: Lactated Ringers 1,000 ML 15 ML IV (10:02)
--- NOTE | 2023-08-15 10:21 | PCM.HP.BLA ---
History and Physical Date of Admission: 08/15/23 ENRIQUE MCNALLY, is a 67 M who presents to the office today for follow up. *BGI established 05.02.22 without GI complaints. History of colonic polyps, large hiatal hernia and Vergara?s esophagus.?EGD and colonoscopy 06.28.22?EGD long-segment Vergara?s esophagus; medium hiatal hernia; prominent gastric folds.? Colonoscopy diverticulosis.? OV 07.12.22 continues to do well.?Continue PPI therapy.? OV 01.10.23 recent onset of LLQ>RLQ abdominal discomfort causing nocturnal night sweats. ?CT abd/pel 01.18.23?emphysema changes with granuloma and lung nodule; renal cysts; diverticulosis; umbilical hernia; multiple compression fractures of spine? Contact 02.02.23 reporting he is doing much better than previously. Proceed with EGD and f/u as scheduled.?EGD 07.10.23?long-segment Vergara?s mucosal changes, metaplasia +; medium hiatal hernia; diffusely friable mucosa of entire stomach.? OV 07.24.23- Pt is doing well since last visit. Has not had any heartburn, dysphagia, nausea or abdominal pain. BM are normal. Has no other concerns. ROS Const Constitutional: No fatigue ENT ENT: No difficulty swallowing Gastro GI: No abdominal pain, belching, bloating, change in bowel habits, change in stool character, coffee ground emesis, constipation, cramping, diarrhea, heartburn, difficulty swallowing, feeling full early, excessive flatus, incontinent of stools, Vomiting blood/hematemesis, Blood in stool, loose stools, Black,tarry stools, nausea/dyspepsia, pain with swallowing, vomiting or other Musc Musculoskeletal: Positive for Arthritis; No joint pain Skin Skin: No yellowing of the eye or itchy eyes Psych Psychiatric: No anxiety and No depression Endo Endocrine: No fatigue Aller/Imm Allergy/Immunologic: No itchy eyes Kevin/Lymp Hematologic/Lymphatic: No easy bleeding or easy bruising Exam Const General: cooperative, comfortable and no acute distress Nutritional Appearance: average body habitus Orientation: alert, awake and oriented x3 Eyes Sclera: sclerae normal Resp Effort & Inspection: normal respiratory effort GI Inspection: normal to inspection Palpation: soft, no hepatosplenomegaly, no masses and nontender Quality Reporting Tobacco Screening ([facility] 138) Smoking Status: Former smoker Assessment and Plan Assessment and Plan (1) Barretts esophagus: Status: Chronic Qualifiers: Vergara's esophagus type: without dysplasia Qualified Code(s): K22.70 - Vergara's esophagus without dysplasia Plan: We discussed his EGD and colonoscopy findings, focusing on Vergara's and the increased risk for esophageal cancer. I thought he was on omeprazole but apparently he wasn't, so I rx'd pantoprazole 40 mg QAM to be taken indefinitely. We will repeat EGD in one yr for long segment Vergara's. Due to his extensive intestinal metaplasia we will perform ablation because it makes it very difficult in order to perform surveillance of his esophagus. Repeat colonoscopy 5 yrs. f/u 6 wks. He requested med for chest congestion that has almost resolved, rx sent in for guaifenesin. I have examined the patient and the H&P has been reviewed. There are no clinical changes since date of exam.
[2023-08-15 12:00] VITALS: BP 124/83; BP 87/64; BP 92/64; PULSE 62; RESP 18; TEMP 36.1; O2SAT 95; O2SAT 99
[2023-08-15 12:05] VITALS: BP 124/83; BP 85/63; PULSE 61; RESP 16; O2SAT 94
--- NOTE | 2023-08-15 12:05 | OP.CCLET_ITS ---
08/15/2023 Jahaira Cerna Do Re : Upper GI endoscopy procedure for Roger Mart Dear Eryn This procedure was performed on Tuesday, August 15, 2023. My impressions and recommendations are as follows: Impressions : - Esophageal mucosal changes secondary to established long-segment Vergara's disease. Treated with radiofrequency ablation. - Medium-sized hiatal hernia. - No gross lesions in the duodenal bulb. - No specimens collected. Recommendations : - Discharge patient to home. - Resume previous diet. - Continue present medications. - Repeat upper endoscopy in 2 months for retreatment. My findings are described in the full procedure note, which is enclosed. If I can be of further assistance, please feel free to contact me at . Sincerely, Pablo Pichardo, 08/15/2023 12:04:44 PM This report has been signed electronically.
--- NOTE | 2023-08-15 12:05 | OP.EGD_ITS ---
Patient Name: Roger Mart Procedure Date: 08/15/2023 11:34 AM Date of : 1955 Age: 68 Procedure: Upper GI endoscopy Indications: Vergara's esophagus Providers: Pablo Pichardo DO Referring MD: Pablo Pichardo DO Medicines: Monitored Anesthesia Care Patient Profile: This is a 68 year old male. Refer to note in patient chart for documentation of history and physical. Patient has symptoms of chronic heartburn. Complications: No immediate complications. Procedure: Pre-Anesthesia Assessment: - Prior to the procedure, a History and Physical was performed, and patient medications and allergies were reviewed. The patient is competent. The risks and benefits of the procedure and the sedation options and risks were discussed with the patient. All questions were answered and informed consent was obtained. Patient identification and proposed procedure were verified by the physician in the pre-procedure area. Mental Status Examination: alert and oriented. Airway Examination: normal oropharyngeal airway and neck mobility. Respiratory Examination: clear to auscultation. CV Examination: normal. Prophylactic Antibiotics: The patient does not require prophylactic antibiotics. Prior Anticoagulants: The patient has taken no anticoagulant or antiplatelet agents. ASA Grade Assessment: II - A patient with mild systemic disease. After reviewing the risks and benefits, the patient was deemed in satisfactory condition to undergo the procedure. The anesthesia plan was to use monitored anesthesia care (MAC). Immediately prior to administration of medications, the patient was re-assessed for adequacy to receive sedatives. The heart rate, respiratory rate, oxygen saturations, blood pressure, adequacy of pulmonary ventilation, and response to care were monitored throughout the procedure. The physical status of the patient was re-assessed after the procedure. After obtaining informed consent, the endoscope was passed under direct vision. Throughout the procedure, the patient's blood pressure, pulse, and oxygen saturations were monitored continuously. The gastroscope was introduced through the mouth, and advanced to the second part of duodenum. The upper GI endoscopy was accomplished without difficulty. The patient tolerated the procedure well. Scope In: 11:45:43 AM Scope Out: 11:53:44 AM Total Procedure Duration Time 0 hours 8 minutes 1 second Findings: There were esophageal mucosal changes secondary to established long-segment Vergara's disease present in the upper third of the esophagus, in the middle third of the esophagus and in the lower third of the esophagus. The maximum longitudinal extent of these mucosal changes was 13 cm in length. Focal radiofrequency ablation of Vergara's esophagus was performed. With the endoscope in place, the position and extent of the Vergara's mucosa and the anatomic landmarks including top of gastric folds were noted. Endoscopic visualization identified an ablation site at 28 cm from the incisors. The Vergara's mucosa was irrigated with water. The radiofrequency channel ablation catheter was introduced through the endoscope working channel. Vergara's tissue was targeted. The endoscope with the ablation catheter was advanced to the areas of Vergara's mucosa. The areas included circumferential areas of Vergara's mucosa. The endoscope with the channel ablation catheter was positioned under direct visualization so that the catheter was placed in contact with the surface of the Vergara's mucosa. Energy was applied. The channel ablation catheter was then removed through the endoscope working channel, and the ablation catheter was cleaned. The endoscope was left in place. The ablation zone was cleaned of coagulative debris. The ablation catheter was reinserted into the endoscope working channel. A second round of ablation was then performed. Energy was applied twice at 12 J/cm2 to retreat the areas of Vergara's epithelium that had been treated with the first series of ablation. The ablation catheter was removed through the endoscope working channel. The areas of the esophagus where Vergara's mucosa had been ablated were examined. There was a moderate amount of unablated Vergara's esophagus present. The endoscope was then removed. A medium-sized hiatal hernia was present. No other significant abnormalities were identified in a careful examination of the stomach. No gross lesions were noted in the duodenal bulb. Impression: - Esophageal mucosal changes secondary to established long-segment Vergara's disease. Treated with radiofrequency ablation. - Medium-sized hiatal hernia. - No gross lesions in the duodenal bulb. - No specimens collected. Recommendation: - Discharge patient to home. - Resume previous diet. - Continue present medications. - Repeat upper endoscopy in 2 months for retreatment. Procedure Code(s): --- Professional --- 64833, Esophagogastroduodenoscopy, flexible, transoral; with ablation of tumor(s), polyp(s), or other lesion(s) (includes pre- and post-dilation and guide wire passage, when performed) CPT copyright 2021 [employer]. All rights reserved. The codes documented in this report are preliminary and upon mainspring barrel assembly cleaner review may be revised to meet current compliance requirements. Pablo Pichardo DO 08/15/2023 12:04:44 PM This report has been signed electronically. Number of Addenda: 0 Note Initiated On: 08/15/2023 11:34 AM
[2023-08-15 12:10] VITALS: BP 124/83; BP 99/70; PULSE 57; RESP 16; O2SAT 93
[2023-08-15 12:14] VITALS: BP 105/71; BP 124/83; PULSE 52; RESP 16; TEMP 36.6; O2SAT 95
[2023-08-15 12:37] VITALS: BP 124/83
== END 2023-08-15 12:52 | disposition home or self-care (01) ==
LOC: EN 09:32 → AC 09:33
PROVIDERS: PCP Family Medicine; Referring Provider Internal Medicine Gastroenterology; Visit Provider Internal Medicine Gastroenterology
PROC: 0DJ08ZZ Inspection of Upper Intestinal Tract, Via Natural or Artificial Opening Endoscopic (ICD-10-PCS; CPT 43235; principal; 2023-08-15 10:40)
DX: K22.70 Barrett's esophagus without dysplasia (principal); J44.9 Chronic obstructive pulmonary disease, unspecified; I48.0 Paroxysmal atrial fibrillation; K44.9 Diaphragmatic hernia without obstruction or gangrene; Z86.010 Personal history of colon polyps; Z87.891 Personal history of nicotine dependence; I10 Essential (primary) hypertension; Z79.01 Long term (current) use of anticoagulants; Z79.899 Other long term (current) drug therapy
CPT/HCPCS: 43270; 36416; 85610; J7120; J2405

== ENCOUNTER 2023-08-29 06:04 | Outpatient (RCR) | payer MEDICARE, MEDICAID, SELFPAY ==
[2023-07-29 23:18] VITALS: BMI 24.1
[2023-08-29 08:11] LABS: International Normalized Ratio 2.8; Prothrombin Time (Protime)PT. 29.5 SECONDS (11.7-14.9)
== END 2023-08-29 18:00 | disposition home or self-care (01) ==
LOC: LAB 06:04
PROVIDERS: Family Provider Family Medicine; PCP Family Medicine; Referring Provider Nurse Practitioner Family; Visit Provider Nurse Practitioner Family
DX: I48.0 Paroxysmal atrial fibrillation (principal); Z79.01 Long term (current) use of anticoagulants
CPT/HCPCS: 36415; 85610

== ENCOUNTER 2023-09-18 12:18 | Day surgery (SDC) | payer MEDICARE, MEDICAID, SELFPAY ==
[2023-09-18] VITALS (9 sets, daily range): BP systolic 117–140; BP diastolic 78–89; PULSE 53–61; RESP 16–18; TEMP 36.1–36.2; O2SAT 97–100; BMI 25.2
[2023-09-18 12:44] LABS: Prothrombin Time Fingerstick 20.9 SEC (11.7-14.9)
--- NOTE | 2023-09-18 12:47 | HP.PCM_ITS ---
History and Physical Date of Admission: 09/18/23 ENRIQUE MCNALLY, is a 67 M who presents to the office today for follow up. *BGI established 05.02.22 without GI complaints. History of colonic polyps, large hiatal hernia and Vergara?s esophagus.?EGD and colonoscopy 06.28.22?EGD long-segment Vergara?s e sophagus; medium hiatal hernia; prominent gastric folds.? Colonoscopy diverticulosis.? OV 07.12.22 continues to do well.?Continue PPI therapy.? OV 01.10.23 recent onset of LLQ>RLQ abdominal discomfort causing nocturnal night sweats. ?CT abd/pel 01.18.23?emphysema changes with granuloma and lung nodule; renal cysts; diverticulosis; umbilical hernia; multiple compression fractures of spine? Contact 02.02.23 reporting he is doing much better than previously. Proceed with EGD and f/u as scheduled.?EGD 07.10.23?long-segment Vergara?s mucosal changes, metaplasia +; medium hiatal hernia; diffusely friable mucosa of entire stomach.? OV 07.24.23- Pt is doing well since last visit. Has not had any heartburn, dysphagia, nausea or abdominal pain. BM are normal. Has no other concerns. ROS Const Constitutional: No fatigue ENT ENT: No difficulty swallowing Gastro GI: No abdominal pain, belching, bloating, change in bowel habits, change in stool character, coffee ground emesis, constipation, cramping, diarrhea, heartburn, difficulty swallowing, feeling full early, excessive flatus, incontinent of stools, Vomiting blood/hematemesis, Blood in stool, loose stools, Black,tarry stools, nausea/dyspepsia, pain with swallowing, vomiting or other Musc Musculoskeletal: Positive for Arthritis; No joint pain Skin Skin: No yellowing of the eye or itchy eyes Psych Psychiatric: No anxiety and No depression Endo Endocrine: No fatigue Aller/Imm Allergy/Immunologic: No itchy eyes Kevin/Lymp Hematologic/Lymphatic: No easy bleeding or easy bruising Exam Const General: cooperative, comfortable and no acute distress Nutritional Appearance: average body habitus Orientation: alert, awake and oriented x3 Eyes Sclera: sclerae normal Resp Effort & Inspection: normal respiratory effort GI Inspection: normal to inspection Palpation: soft, no hepatosplenomegaly, no masses and nontender Quality Reporting Tobacco Screening ([facility] 138) Smoking Status: Former smoker Assessment and Plan Assessment and Plan (1) Barretts esophagus: Status: Chronic Qualifiers: Vergara's esophagus type: without dysplasia Qualified Code(s): K22.70 - Vergara's esophagus without dysplasia Plan: We discussed his EGD and colonoscopy findings, focusing on Vergara's and the increased risk for esophageal cancer. I thought he was on omeprazole but apparently he wasn't, so I rx'd pantoprazole 40 mg QAM to be taken indefinitely. We will repeat EGD in one yr for long segment Vergara's. Due to his extensive intestinal metaplasia we will perform ablation because it makes it very difficult in order to perform surveillance of his esophagus. Repeat colonoscopy 5 yrs. f/u 6 wks. He requested med for chest congestion that has almost resolved, rx sent in for guaifenesin. I have examined the patient and the H&P has been reviewed. There are no clinical changes since date of exam.
[2023-09-18] MEDS: Lactated Ringers 1,000 ML 15 ML IV (12:55)
[2023-09-18 13:14] LABS: International Normalized Ratio 1.9; Prothrombin Time (Protime)PT. 21.5 SECONDS (11.7-14.9)
--- OUTSIDE RECORDS SUMMARY | 2023-09-18 13:40 | XMS RPT_ITS | CCD ---
Author Name Unknown Address [address] [place] [address] Organization [facility] Care Team Providers Care Orthotist Name Role Phone Sarah Daugherty Primary Care Provider Parveen Portillo Unavailable Dwayne Wells Unavailable Parveen Portillo Unavailable Dwayne Wells MD Unavailable [phone] Sarah Daugherty MD Primary Care Provider DWAYNE WELLS Attending Unavailable SARAH DAUGHERTY Referring Unavailable SARAH DAUGHERTY Primary Care Unavailable DWAYNE WELLS Attending Unavailable SARAH DAUGHERTY Referring Unavailable SARAH DAUGHERTY Primary Care Unavailable Allergies Allergy Classification Reported Allergen(s) Allergy Type Date of Onset Reaction(s) Facility Chlorpheniramine / Pseudoephedrine (1 source) Chlorpheniramine / Pseudoephedrine Drug Allergy 08-25-19 16 [facility] Succinylcholine (1 source) Succinylcholine Drug Allergy 12-06-19 17 [facility] Work Phone: (3 sources) Chlorpheniramine / Pseudoephedrine; 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: [MED-HIST] Drug Allergy 08-25-19 16 [facility] (3 sources) Succinylcholine; 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: [SUCCINYLCHOLINE] Drug Allergy 12-06-19 17 [facility] (4 sources) Insect Extracts; 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: [INSECT EXTRACTS] Drug Allergy 08-25-19 16 [facility] (2 sources) Secobarbital; 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: [SECOBARBITAL] Drug Allergy 10-31-19 19 Other: See Comments [facility] Work Phone: Medications Completed/Discontinued Medications Medication Drug Class(es) Dates Sig (Normalized) Sig (Original) allopurinol 100 mg oral tablet (3 sources) Xanthine Oxidase Inhibitor Start: 08-02-2015 take 1 tablet by mouth once daily allopurinol (ZYLOPRIM) 100 mg tablet Take 100 mg by mouth once daily. 0 08/02/2015 Active Problems Active Problems Problem Classification Problem Date Documented Date Episodic/Chronic Cardiac dysrhythmias (14 sources) Atrial flutter; 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: [Paroxysmal supraventricular tachycardia] Onset: 05-03-2016 05-03-2016 Chronic Esophageal disorders (1 source) Gastroesophageal reflux disease; 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: [Gastro-esophageal reflux disease without esophagitis] Onset: 05-02-2022 12-05-2022 Chronic Essential hypertension (3 sources) Essential hypertension; 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: [Essential (primary) hypertension] 11-06-2016 Chronic Osteoporosis (1 source) Osteoporosis; 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: [Age-related osteoporosis without current pathological fracture] Onset: 11-02-2022 12-05-2022 Chronic Other aftercare (2 sources) Drug therapy finding; 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: [Other assisted (current) drug therapy] 05-03-2016 Episodic Other aftercare (3 sources) Long-term current use of anticoagulant; 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: [[facility] (current) use of anticoagulants] 11-27-2020 Episodic Other aftercare (3 sources) Long-term current use of drug therapy; 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: [Other assisted (current) drug therapy] 05-03-2016 Episodic Residual codes; unclassified (1 source) At risk of disease; 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: [At risk for stroke] 05-08-2018 Unclassified (2 sources) Drug therapy finding; 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] 05-03-2016 Unclassified (1 source) Long-term current use of drug therapy; 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: [[facility] current use of antiarrhythmic drug] 05-03-2016 Unclassified (1 source) Other persistent atrial fibrillation; 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: [Persistent atrial fibrillation (HCC)] Onset: 05-16-2017 Past or Other Problems Problem Classification Problem Date Documented Date Episodic/Chronic Cardiac dysrhythmias (8 sources) Palpitations; 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: [Tachycardia] Onset: 05-03-2016 05-03-2016 Episodic Other aftercare (1 source) Other assisted (current) drug therapy; 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: [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 drug] Onset: 07-26-2021 Episodic Other aftercare (1 source) terminal clerk (current) use of anticoagulants; 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: [Anticoagulant long-term use] Onset: 07-26-2021 Episodic Other lower respiratory disease (1 source) Nodule of lung; 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: [Solitary pulmonary nodule] Onset: 12-27-2021 12-27-2021 Episodic Residual codes; unclassified (4 sources) Other specified personal risk factors, not elsewhere classified; 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: [Other specified personal history presenting hazards to health] Onset: 05-08-2018 05-08-2018 Episodic Results Test Name Value Interpretation Reference Range Facil ity Vital Signs Date Time Vital Sign Value Performing Clinician Faci litkal 12-05-2022 10:42-0400 Body height 170.2 cm Dwayne Wells MD Work Phone: [facility] 12-05-2022 10:42-0400 Body weight 76.66 kg Dwayne Wells MD Work Phone: [facility] 12-05-2022 10:42-0400 Diastolic blood pressure 83 mm[Hg] Dwayne Wells MD Work Phone: [facility] 12-05-2022 10:42-0400 Heart rate 73 /min Dwayne Wells MD Work Phone: [facility] 12-05-2022 10:42-0400 SaO2% (BldA) [Mass fraction] 95 % Dwayne Wells MD Work Phone: [facility] 12-05-2022 10:42-0400 Systolic blood pressure 125 mm[Hg] Dwayne Wells MD Work Phone: [facility] Encounters Encounter Date Encounter Type Care Provider Facility Start: 12-05-2022 End: 12-05-2022 ambulatory DWAYNE WELLS Facility:[facility] Start: 12-05-2022 End: 12-05-2022 Patient encounter procedure Dwayne Wells MD Work Phone: [facility] Procedures Date Procedure Procedure Detail Performing Clinician Start: 12-05-2022 Ecg routine ecg w/le ast 12 lds w/i&r Dwayne Wells MD Work Phone: Start: 03-11-2020 EXTERNAL LAB External P brenda Plan of Treatment Date Care Activity Detail Author Start: 09-04-2028 Urine microalbumin profile [facility] Start: 07-30-2022 ADVANCE DIRECTIVE DISCUSSION ADVANCE DIRECTIVE DISCUSSION [facility] Start: 07-30-2022 DEPRESSION ASSESSMENT DEPRESSION ASS ESSMENT [facility] Start: 03-30-2021 Influenza vaccination INFLUENZA (Sea son Ended) [facility] Start: 2020 ADVANCE DIRECTIVE DISCUSSION ADVANCE DIRECTIVE DISCUSSION [facility] Start: 2020 PNEUMOVAX AGE 65 AND OVER WITH 5YR LOOKBACK (#1) PNEUMOVAX AGE 65 AND OVER WITH 5YR LOOKBACK (#1) [facility] Start: 03-30-2020 Influenza vaccination INFLUENZA (#1) [facility] Start: 10-12-2018 DIABETES SCREEN DIABETES SCREEN [facility] Start: 07-08-2014 PNEUMOCOCCAL: 65+ (2 - PCV) PNEUMOCOCCAL: 65+ (2 - PCV) [facility] Start: 2010 PROSTATE CANCER SCRE ENING DISCUSSION PROSTATE CANCER SCREENING DISCUSSION [facility] Start: 2005 Screening for malign ant neoplasm of colon [facility] Start: 2005 SHINGRIX VACCINE (1 of 2) SHINGRIX V ACCINE (1 of 2) [facility] Start: 2005 Tuberculosis screening COLOREC JOSE CANCER SCREENING,SEE MODIFIER [facility] Start: 2000 COLOGUARD (FIT-DNA) COLOGUARD (FIT-D NA) [facility] Start: 2000 Colonoscopy COLONOSCOPY [facility] Start: 2000 COLORECTAL CANCER SCREENING COLORECTAL CANCER SCREENING [facility] Start: [address] COLONOGRAPHY [facility] Start: 2000 FECAL OCCULT BLOOD FECAL OCCULT BLOO D [facility] Start: 2000 SIGMOIDOSCOPY SIGMOIDOSCOPY [facility] Start: 1990 LIPID SCREEN LIPID SCREEN [facility] Start: 1973 ANNUAL PCP TEAM 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 Immunizations Immunization Date Immunization Notes Care Provider Fa cility 05-19-2022 influenza (HD-IIV4) vaccine, age 65+ yr, high dose, quadrivalent, PF (FLUZONE HIGH-DOSE) Dwayne Wells MD Work Phone: [facility] Work Phone: 12-02-2021 COVID-19 original vaccine, age 12+ yr, monovalent (PFIZER-BIONTECH - GORDON TOP) Dwayne Wells MD Work Phone: [facility] Work Phone: 06-28-2021 COVID-19 original vaccine, age 12+ yr, monovalent (PFIZER-BIONTECH - PURPLE TOP) Dwayne Wells MD Work Phone: [facility] Work Phone: 04-13-2021 influenza (HD-IIV4) vaccine, age 65+ yr, high dose, quadrivalent, PF (FLUZONE HIGH-DOSE) Dwayne Wells MD Work Phone: [facility] Work Phone: 02-24-2021 zoster vaccine recombinant Dwayne Wells MD Work Phone: [facility] Work Phone: 12-24-2020 zoster vaccine recombinant Dwayne Wells MD Work Phone: [facility] Work Phone: 10-25-2020 COVID-19 original vaccine, age 12+ yr, monovalent (PFIZER-BIONTECH - PURPLE TOP) Dwayne Wells MD Work Phone: [facility] Work Phone: 10-02-2020 COVID-19 original vaccine, age 12+ yr, monovalent (GapJumpers-TrakNTAIM - PURPLE TOP) Dwayne Wells MD Work Phone: [facility] Work Phone: 09-04-2018 tetanus toxoid, redu cathy diphtheria toxoid, and acellular pertussis vaccine, adsorbed External Provider [facility] Work Phone: 04-12-2018 influenza, injectabl e, quadrivalent, preservative free External Provider [facility] Work Phone: 04-29-2015 influenza, seasonal, injectable External Provider [facility] Work Phone: 04-29-2015 influenza, seasonal, injectable, preservative free External Provider [facility] Work Phone: 07-08-2013 pneumococcal polysaccharide vaccine, 23 valent External Provider [facility] Work Phone: 06-29-2013 pneumococcal polysaccharide vaccine, 23 valent External Provider [facility] Work Phone: 06-29-2013 pneumococcal vaccine , unspecified formulation Dwayne Wells MD Work Phone: [facility] Work Phone: Payers Date Payer Category Payer Medicaid [employer] [id number] 2020-Present [phone] [address] [place] [address] Medicaid [id number] 2020 Medicare [employer] [id number] 2020-Present [phone] [address] [place] [address] Medicare [id number] 2020 Medicare [id number] 2018 Medicaid [employer] [id number] 2018-Present Medicaid [id number] Social History Date Type Detail Facility Start: 12-01-2019 End: 12-05-2022 Tobacco smoking status NHIS Former smoker [facility] Start: 07-30-1974 End: 05-14-2019 History of tobacco use Current smoker [facility] Start: 07-30-1974 End: 05-14-2019 History of tobacco use Cigarette Smoker [facility] Start: 12-01-2019 End: 12-05-2022 Cigarettes smoked current (pack per day) - Reported [facility] Start: 12-01-2019 End: 12-05-2022 Tobacco use and exposure Never used [facility] Start: 12-01-2019 End: 12-05-2022 Alcohol intake Current drinker of alcohol (finding) [facility] Start: 05-03-2016 Alcohol Comment occasionally [facility] Start: 1955 Sex Assigned At Not on file [facility] Exposure to SARS-CoV -2 (event) Not sure [facility] Progress note 12-05-2022 Note Date & Type Note Facility 12-05-2022 Note HNO ID: [id number] Author: Dwayne Wells MD Service: ? Author Type: Physician Type: Progress Notes Filed: 12/05/2022 10:01 PM Note Text: PRIMARY CARE PHYSICIAN: Sarah Daugherty [address] [place] [address] Patient Care Team: Sarah Daugherty MD as PCP - General (Family Medicine) Parveen Portillo as Specialty Director Call Center Sales (Cardiology) Dwayne Wells MD as Specialty Director Call Center Sales (Cardiology) CHIEF COMPLAINT: Follow up for arrhythmia HISTORY OF PRESENT ILLNESS: Mr. Mart is a 67 year old male who presents today for a cardiovascular medicine follow-up visit. History copied from previous notes, edited as needed: Dr. Wells's previous notes: Mr. Mart has a long history of AF, possibly since the . The AF was previously very symptomatic, and was refractory to medical therapy. He underwent AF catheter ablation at [facility] in 2007. The procedure was complicated by [...] since that time, with sufficient collaterals. Mr. Mart developed recurrent AF and for several years [...] rapid ventricular rates. He was admitted to [facility] in 08/2014 for loading of the antiarrhythmic drug, dofetilide. He then underwent electrical DC cardioversion 09/10/2014. He was then discharged home on the dofetilide 500 mcg twice daily. He was then evaluated by Dr. Portillo in late September 2014 and was found to be having recurrent episodes of symptomatic arrhythmia. He underwent additional electrical DC cardioversions, but the atrial arrhythmias recurred. Additional history provided 05/03/2016 Dr. Wells: Mr. Mart underwent redo catheter ablation procedure in September 2015 here at [facility]. The procedure involved redo catheter ablation for the atrial fibrillation, and also targeted and ablated multiple atypical left atrial arrhythmias including atrial tachycardias and/or atrial flutters. Mr. Mart states that since the ablation procedure he [...] mother having open heart surgery here at [facility] recently. He denies chest pain, shortness of breath, orthopnea, cough, edema, PND, lightheadedness or syncope. Additional history 05/16/2017 Dr. Wells: Mr. Mart has been feeling well. Better than I have in 20 years. He is tolerating his medications well. He denies chest pain, shortness of breath, orthopnea, edema, palpitations, PND, lightheadedness or syncope. Additional history 05/08/2018 Dr. Wells: Mr. Mart states he has been doing well from the heart rhythm standpoint. He has not been aware of any arrhythmia. He denies chest pain, shortness of breath, orthopnea, palpitations, PND, lightheadedness or syncope. He had some trouble earlier this year in about September when he broke his back. He underwent some rehabilitation for this issue. Interval History 12/05/18 Nevin Russo APN: Roger Mart presents for follow up of atrial fibrillation s/p PVAI 2007, and redo PVAI 2016 maintained on Tikosyn. He denies palpitations, SOB, dizziness, syncope, CP. He has emphysema and is attempting to quit s (more content not included)... [facility] History of Present illness Narrative 12-05-2022 Dwayne Wells MD - 12/05/2022 11:00 AM EDT Note Date & Type Note Facility 12-05-2022 History of Presen t illness Narrative PRIMARY CARE PHYSICIAN: Sarah Daugherty [address] [place] [address] Patient Care Team: Sarah Daugherty MD as PCP - General (Family Medicine) Parveen Portillo as Specialty Director Call Center Sales (Cardiology) Dwayne Wells MD as Specialty Director Call Center Sales (Cardiology) CHIEF COMPLAINT: Follow up for arrhythmia HISTORY OF PRESENT ILLNESS: Mr. Mart is a 67 year old male who presents today for a cardiovascular medicine follow-up visit. History copied from previous notes, edited as needed: Dr. Wells's previous notes: Mr. Mart has a long history of AF, possibly since the 1980s. The AF was previously very symptomatic, and was refractory to medical therapy. He underwent AF catheter ablation at [facility] in 2007. The procedure was complicated by [...] since that time, with sufficient collaterals. Mr. Mart developed recurrent AF and for several years [...] rapid ventricular rates. He was admitted to [facility] in 08/2014 for loading of the antiarrhythmic drug, dofetilide. He then underwent electrical DC cardioversion 09/10/2014. He was then discharged home on the dofetilide 500 mcg twice daily. He was then evaluated by Dr. Portillo in late September 2014 and was found to be having recurrent episodes of symptomatic arrhythmia. He underwent additional electrical DC cardioversions, but the atrial arrhythmias recurred. Additional history provided 05/03/2016 Dr. Wells: Mr. Mart underwent redo catheter ablation procedure in September 2015 here at [facility]. The procedure involved redo catheter ablation for the atrial fibrillation, and also targeted and ablated multiple atypical left atrial arrhythmias including atrial tachycardias and/or atrial flutters. Mr. Mart states that since the ablation procedure he [...] mother having open heart surgery here at [facility] recently. He denies chest pain, shortness of breath, orthopnea, cough, edema, PND, lightheadedness or syncope. Additional history 05/16/2017 Dr. Wells: Mr. Mart has been feeling well. Better than I have in 20 years. He is tolerating his medications well. He denies chest pain, shortness of breath, orthopnea, edema, palpitations, PND, lightheadedness or syncope. Additional history 05/08/2018 Dr. Wells: Mr. Mart states he has been doing well from the heart rhythm standpoint. He has not been aware of any arrhythmia. He denies chest pain, shortness of breath, orthopnea, palpitations, PND, lightheadedness or syncope. He had some trouble earlier this year in about September when he broke his back. He underwent some rehabilitation for this issue. Interval History 12/05/18 Nevin Russo APN: Roger Mart presents for follow up of atrial fibrillation s/p PVAI 2007, and redo PVAI 2016 maintained on Tikosyn. He denies palpitations, SOB, dizziness, syncope, CP. He has emphysema and is attempting to quit smoking. Interim History Dr. Wells 12/01/2019: Mr. Mart presents for follow up evaluation by telephone (cannot do video portion, has regular phone). He has been doing ok from heart rhythm standpoint. He quit smoking cigarettes last 04/2019. He states his INR has been up and down, he was taking ibuprofen for his back pain and the INR increased. This morning the INR was 1.5 --- so his local physician is working with Mr. Mart to get it back into therapeutic range. He denies chest pain, shortness of breath, orthopnea, palpitations, PND, lightheadedness or syncope. Interim History Dr. Wells 12/01/2020: Mr. Mart presents for follow-up relation. The states that he has been feeling well, not aware of recurrent atrial fibrillation. He feels better since stopping smoking in April 2019. He denies chest pain, shortness of breath, orthopnea, palpitations, PND, lightheadedness or syncope. Interim History Dr. Wells 12/27/2021: Mr. Mart presents for follow-up for arrhythmia. He states he has been feeling well. He has not been aware of any symptoms to suggest recurrent arrhythmia. He is tolerating the prescribed medication regimen well. He is being treated with warfarin oral anticoagulation therapy for stroke prevention, tolerating this well without report of bleeding problems. He denies chest pain, shortness of breath, orthopnea, palpitations, PND, lightheadedness or syncope. Interim History Dr. Wells 12/05/2022: Mr. Mart presents for follow up evaluation. He has symptomatic atrial fibrillation, has been treated with antiarrhythmic drug therapy after two atrial fibrillation catheter ablation procedures in 2007 and 2015. He states he did not have atrial fibrillation for a long time until just recently when he experienced severe symptoms with tachycardia, palpitations. He states he presented to [facility], was treated and released. The diltiazem dose was increased from 120 mg to 180 mg daily.He states he has done well since then. He denies chest pain, shortness of breath, orthopnea, PND, syncope. I have confirmed and edited as necessary, the PFSH and ROS obtained by others. 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 dofetilide (Tikosyn); indication: symptomatic AF or atrial flutter Lung nodule On assisted drug therapy high risk medication: antiarrhythmic drug dofetilide (Tikosyn); indication: symptomatic AF/flutter Palpitations Paroxysmal supraventricular tachycardia (HCC) Persistent atrial fibrillation (HCC) recurrent; symptomatic; s/p AF ablation 04/2008 [facility]; s/p redo AF ablation 09/2015 Tachycardia Tobacco dependence syndrome encouraged to quit Type 2 diabetes mellitus (HCC) diagnosed 2009; diet-controlled PAST SURGICAL HISTORY Procedure Laterality Date ABSCESS DRAIN 10/2022 right side of jaw AFIB ABLATION/PULM VEIN ISOLATION 10/12/2015 redo AF catheter ablation/PVAI; also ablation of two macroreentrant atypical left atrial flutters; [facility] Dr. Wells CARDIAC CATH 09/2006 CATHETER, ABLATION 05/25/2008 [facility], Dr. Carlos Huggins ECHOCARDIOGRAM 04/06/2016 normal LV size and systolic fxn; LVEF 55-60%; no significant valvular abnormalities IR VENOUS BOX STAMPER 05/28/2008 unsuccessful angioplasty attempts at right common femoral vein and external iliac vein occlusions; [facility] REPAIR OF FEMUR Left 1980 ORIF left femur SOCIAL HISTORY Social History Tobacco Use Smoking status: Former Packs/day: 1.00 Types: Cigarettes Start date: 07/30/1974 Quit date: 05/14/2019 Years since quittin.5 Smokeless tobacco: Never Vaping Use Vaping Use: Never used Substance Use Topics Alcohol use: Yes Comment: occasionally Drug use: No FAMILY HISTORY Problem Relation Age of Onset Diabetes Father Coronary Artery Disease Mother Diabetes Mother Heart Mother NE & stents Asthma Sister Prostate Cancer Paternal Uncle ALLERGIES: ALLERGIES Allergen Reactions Insect Extracts Swelling Med-Hist Swelling SECONOL Secobarbital Other: See Comments Succinylcholine Swelling MEDICATIONS: amoxicillin (AMOXIL) 500 mg capsule TAKE 4 CAPSULES BY MOUTH ONE HOUR PRIOR TO DENTAL APPOINTMENT. dilTIAZem CD (CARDIZEM CD, CARTIA XT) 180 mg 24 hr capsule Take 180 mg by mouth twice daily. predniSONE (DELTASONE) 20 mg tablet TAKE 2 TABLETS BY MOUTH DAILY FOR 5 DAYS NEEDED FOR FOR GOUT FLARE denosumab (PROLIA) 60 mg/mL Inject 60 mg subcutaneously once every 6 months. BREZTRI AEROSPHERE 160-9-4.8 mcg/actuation HFA aerosol inhaler inhale 2 (TWO) puffs TWICE DAILY dofetilide (TIKOSYN) 500 mcg capsule Take 1 capsule by mouth twice daily. warfarin (COUMADIN) 2 mg tablet TAKE 1 TABLET BY MOUTH DAILY on sunday and sunday or as directed cholecalciferol, vitD3,/vit K2 (VITAMIN D3-VITAMIN K2) 250 mcg (10,000 unit)-45 mcg cap Take by mouth. glycopyrrolate-formoterol 9-4.8 mcg Inhale 2 Puffs as instructed twice daily. omeprazole (PRILOSEC) 20 mg capsule Take 20 mg by mouth once daily. zoledronic acid (RECLAST) 5 mg/100 mL pgbk PREMIX piggyback Inject 5 mg intravenously one time only. KLOR-CON M10 10 mEq tablet Take 10 mEq by mouth once daily. EPIPEN 2-HYACINTH 0.3 mg/0.3 mL auto-injector Inject 0.3 mg subcutaneously as needed (allergic reactions). warfarin (COUMADIN) 4 mg tablet As directed allopurinol (ZYLOPRIM) 100 mg tablet Take 100 mg by mouth once daily. furosemide (LASIX) 40 mg tablet Take 40 mg by mouth once daily. warfarin (COUMADIN) 5 mg tablet As directed Fish Oil-[place]-3 Fatty Acids 300-1,000 mg cap Take 1 tablet by mouth once daily. lansoprazole (PREVACID) 30 mg capsule Take 30 mg by mouth once daily. Review of Systems Constitutional: Negative for chills, fever, malaise/fatigue and weight loss. Respiratory: Negative for cough, hemoptysis, sputum production, shortness of breath and wheezing. Cardiovascular: Positive for palpitations. Negative for chest pain, orthopnea, claudication, leg swelling and PND. Gastrointestinal: Negative for abdominal pain, blood in stool, melena, nausea and vomiting. Genitourinary: Negative for hematuria. Skin: Negative for rash. Neurological: Negative for dizziness, tremors, focal weakness, seizures and loss of consciousness. PHYSICAL EXAMINATION: BP 125/83 Pulse 73 Ht 5' 7 (1.70m) Wt 169 lb (76.7kg) SpO2 95% BMI 26.46 kg/(m^2). Physical Exam Vitals reviewed. Constitutional: General: He is not in acute distress. HENT: Head: Normocephalic and atraumatic. Cardiovascular: Rate and Rhythm: Normal rate and regular rhythm. Heart sounds: Normal heart sounds, S1 normal and S2 normal. No murmur heard. No friction rub. Pulmonary: Effort: Pulmonary effort is normal. No respiratory distress. Breath sounds: Normal breath sounds. No wheezing, rhonchi or rales. Musculoskeletal: Cervical back: Neck supple. Right lower leg: No edema. Left lower leg: No edema. Skin: General: Skin is warm and dry. Neurological: General: No focal deficit present. Mental Status: He is alert and oriented to person, place, and time. Psychiatric: Mood and Affect: Mood normal. Behavior: Behavior normal. Thought Content: Thought content normal. CARDIOVASCULAR MEDICINE TESTING: Electrocardiogram: Sinus rhythm 64 bpm; first-degree AV block (ND 302 ms); normal QRS duration 76 ms; QTc 443 ms, appropriate on dofetilide I have personally reviewed the Electrocardiogram. I spent a total of 30 minutes on the date of the service which included preparing to see the patient, [id number] patient care, completing clinical documentation, obtaining and/or reviewing separately obtained history, performing a medically appropriate examination, counseling and educating the patient/family/caregiver, ordering medications, tests, or procedures, communicating with other HCPs (not separately reported), independently interpreting results (not separately reported), communicating results to the patient/family/caregiver, and care coordination (not separately reported). ASSESSMENT/PLAN: 1. Persistent atrial fibrillation (HCC) - ICD9: 427.31, ICD10: I48.19 (primary diagnosis) Symptomatic; recurrent despite catheter ablation procedures in 2007 and 2015; has been doing well with antiarrhythmic drug therapy with dofetilide; he had recent breakthrough episode but overall has not had very frequent recurrences - ECG B/O W INTERP (MED OFFICE) 2. Atrial flutter, unspecified type (HCC) - ICD9: 427.32, ICD10: I48.92 stable 3. Paroxysmal supraventricular tachycardia (HCC) - ICD9: 427.0, ICD10: I47.1 stable 4. Palpitations - ICD9: 785.1, ICD10: R00.2 stable 5. [facility] current use of antiarrhythmic drug - ICD9: V58.69, ICD10: Z79.899 Dofetilide; indication: symptomatic atrial fibrillation; QTc appropriate by EKG today 12/05/2022 - ECG B/O W INTERP (MED OFFICE) 6. At risk for stroke - ICD9: V15.89, ICD10: Z91.89 CHADS2-Vasc Score Breakdown 3 Total Score 1 Age 65-74 years old 1 History of hypertension 1 History of diabetes mellitus 7. Anticoagulant long-term use - ICD9: V58.61, ICD10: Z79.01 +favorable risk:benefit IMPRESSION: Mr. Mart seems stable with regards to atrial fibrillation. See comments above in problem list. PLAN AND RECOMMENDATIONS: Continue with current plan of care from EP standpoint. Return in about 1 year (around 12/06/2023) for Dr. Wells, with EKG. Dwayne Wells MD 12/05/2022 Medical Decision Making: Problems: Low: Stable chronic illness Data: Unique test result(s) reviewed: 1 Unique test(s) ordered: 1 Risk: Moderate: Moderate risk from testing/treatment and Drug management Medical Decision Making Level: 3 - Low documented in this encounter [facility] Progress note 12-27-2021 Note Date & Type Note Facility 12-27-2021 Note HNO ID: [id number] Author: Dwayne Wells MD Service: ? Author Type: Physician Type: Progress Notes Filed: 12/27/2021 2:12 PM Note Text: PRIMARY CARE PHYSICIAN: Sarah Daugherty [address] [place] [address] Patient Care Team: Sarah Daugherty MD as PCP - General (Family Practice) Parveen Portillo as Specialty Director Call Center Sales (Cardiology) Dwayne Wells MD as Specialty Director Call Center Sales (Cardiology) CHIEF COMPLAINT: Follow up for arrhythmia HISTORY OF PRESENT ILLNESS: Mr. Mart is a 66 year old male who presents today for a cardiovascular medicine follow-up visit. History copied from previous notes, edited as needed: Dr. Wells's previous notes: Mr. Mart has a long history of AF, possibly since the 1980s. The AF was previously very symptomatic, and was refractory to medical therapy. He underwent AF catheter ablation at [facility] in 2007. The procedure was complicated by [...] since that time, with sufficient collaterals. Mr. Mart developed recurrent AF and for several years [...] rapid ventricular rates. He was admitted to [facility] in 08/2014 for loading of the antiarrhythmic drug, dofetilide. He then underwent electrical DC cardioversion 09/10/2014. He was then discharged home on the dofetilide 500 mcg twice daily. He was then evaluated by Dr. Portillo in late September 2014 and was found to be having recurrent episodes of symptomatic arrhythmia. He underwent additional electrical DC cardioversions, but the atrial arrhythmias recurred. Additional history provided 05/03/2016 Dr. Wells: Mr. Mart underwent redo catheter ablation procedure in September 2015 here at [facility]. The procedure involved redo catheter ablation for the atrial fibrillation, and also targeted and ablated multiple atypical left atrial arrhythmias including atrial tachycardias and/or atrial flutters. Mr. Mart states that since the ablation procedure he [...] mother having open heart surgery here at [facility] recently. He denies chest pain, shortness of breath, orthopnea, cough, edema, PND, lightheadedness or syncope. Additional history 05/16/2017 Dr. Wells: Mr. Mart has been feeling well. Better than I have in 20 years. He is tolerating his medications well. He denies chest pain, shortness of breath, orthopnea, edema, palpitations, PND, lightheadedness or syncope. Additional history 05/08/2018 Dr. Wells: Mr. Mart states he has been doing well from the heart rhythm standpoint. He has not been aware of any arrhythmia. He denies chest pain, shortness of breath, orthopnea, palpitations, PND, lightheadedness or syncope. He had some trouble earlier this year in about September when he broke his back. He underwent some rehabilitation for this issue. Interval History 12/05/18 Nevin Russo APN: Roger Mart presents for follow up of atrial fibrillation s/p PVAI 2007, and redo PVAI 2015 maintained on Tikosyn. He denies palpitations, SOB, dizziness, syncope, CP. He has emphysema and is attempting to quit sm (more content not included)... [facility] History of Past illness Narrative 11-20-2019 Note Date & Type Note Facility documented as of this encounter (statuses as of 11/30/2020) [facility] History of Past illness Narrative 11-20-2019 Note Date & Type Note Facility documented as of this encounter (statuses as of 12/06/2022) [facility] Evaluation note Note Date & Type Note Facility documented in this encounter [facility] Summary Purpose Family History No Family History Records FoundNo Family History Records Found Advance Directives No Advanced Directives Records FoundNo Advanced Directives Records Found History of Past Illness Problem Noted Date Resolved Date Atrial fibrillation 11/20/2019 Overview: recurrent; symptomatic; s/p AF catheter ablation 04/2008 [facility]; complicated by acute DVT right common femoral and external iliac veins, with subsequent complete occlusion Additional Source Comments (unrecognized sect ion and content) No Status Records FoundNo Status Records Found INFORMATION SOURCE (unrecogn ized section and content) DATE CREATED AUTHOR AUTHOR'S ORGANIZ ATION 12/06/2022 [facility] Source Comments (unrecognize d section and content) In the event this informatio n is protected by the Federal Confidentiality of Alcohol and Drug Abuse Patient Records regulations: The Federal rules restrict any use of the information to criminally investigate or prosecute any alcohol or drug abuse patient.[facility] the event this information is protected by the Federal Confidentiality of Alcohol and Drug Abuse Patient Records regulations: The Federal rules restrict any use of the information to criminally investigate or prosecute any alcohol or drug abuse patient.[facility] the event this information is protected by the Federal Confidentiality of Alcohol and Drug Abuse Patient Records regulations: The Federal rules restrict any use of the information to criminally investigate or prosecute any alcohol or drug abuse patient.[facility] Reason for Visit (unrecogniz ed section and content) Reason Comments Follow Up A fib Care Teams (unrecognized sec tion and content) FOR RECORDS PERTAINING TO PATIENTS WHO ARE OR HAVE BEEN ENROLLED IN A CHEMICAL DEPENDENCY/SUBSTANCEABUSE PROGRAM, SOME INFORMATION MAY BE OMITTED. This clinical summary was aggregated from multiple sources. Caution should be exercised in using it in the provision of clinical care. This summary normalizes information from multiple sources, and as a consequence, information in this document may materially change the coding, format and clinical context of patient data. In addition, data may be omitted in some cases. CLINICAL DECISIONS SHOULD BE BASED ON THE PRIMARY CLINICAL RECORDS. [facility]. provides no warranty or guarantee of the accuracy or completeness of information in this document.
--- NOTE | 2023-09-18 13:57 | OP.EGD_ITS ---
Patient Name: Roger Mart Procedure Date: 09/18/2023 1:03 PM Date of : 1955 Age: 68 Procedure: Upper GI endoscopy Indications: For therapy of Vergara's esophagus Providers: Pablo Pichardo DO Medicines: Monitored Anesthesia Care Patient Profile: This is a 68 year old male. Refer to note in patient chart for documentation of history and physical. Patient has symptoms of chronic heartburn. Complications: No immediate complications. Procedure: Pre-Anesthesia Assessment: - Prior to the procedure, a History and Physical was performed, and patient medications and allergies were reviewed. The patient is competent. The risks and benefits of the procedure and the sedation options and risks were discussed with the patient. All questions were answered and informed consent was obtained. Patient identification and proposed procedure were verified [Verifying Personnel] [Verification]. [Mental Status Exam]. [Airway Exam]. [Respiratory Exam]. [CV Exam]. The patient [Abx Prophylaxis Requirement] prophylactic antibiotics [High Risk History Reason] and [High Risk Procedure Reason]. [Anticoagulant Agents] [Days Prior to Procedure]. [ASA Grade]. After reviewing the risks and benefits, the patient was deemed in satisfactory condition to undergo the procedure. [Anesthesia Plan]. Immediately prior to administration of medications, the patient was re-assessed for adequacy to receive sedatives. The heart rate, respiratory rate, oxygen saturations, blood pressure, adequacy of pulmonary ventilation, and response to care were monitored throughout the procedure. The physical status of the patient was re-assessed after the procedure. After obtaining informed consent, the endoscope was passed under direct vision. Throughout the procedure, the patient's blood pressure, pulse, and oxygen saturations were monitored continuously. The gastroscope was introduced through the mouth, and advanced to the second part of duodenum. The gastroscope was introduced through the mouth, and advanced to the second part of duodenum. The upper GI endoscopy was accomplished without difficulty. The patient tolerated the procedure well. Scope In: 1:22:10 PM Scope Out: 1:44:54 PM Total Procedure Duration Time 0 hours 22 minutes 44 seconds Findings: The esophagus and gastroesophageal junction were examined with white light and narrow band imaging (NBI) from a forward view and retroflexed position. There were esophageal mucosal changes secondary to established long-segment Vergara's disease. These changes involved the mucosa at the upper extent of the gastric folds (43 cm from the incisors) extending to the Z-line (30 cm from the incisors). Roosevelt-colored mucosa was present. The maximum longitudinal extent of these esophageal mucosal changes was 13 cm in length. Circumferential radiofrequency ablation of Vergara's esophagus was performed using the ReliSenx 360 Express catheter and balloon-based endoscopic ablation system. With the endoscope in place, the position and extent of the Vergara's mucosa and the anatomic landmarks including proximal and distal extent of Vergara's mucosa, top of gastric folds and crural pinch were noted. Endoscopic visualization identified an ablation site including the entire visible Vergara's segment. The Vergara's mucosa was irrigated with N-acetylcysteine (Mucomyst) 1% mixed with water. Gastric contents were suctioned. A guidewire was passed down the biopsy channel of the endoscope. As the endoscope was withdrawn from the mouth, the guidewire was left in place. An auto-sizing radiofrequency ablation balloon catheter was passed transorally over the guidewire into the esophagus. The endoscope was introduced in a lufp-fo-[id number] manner with the ablation catheter. Under direct endoscopic visualization, the balloon ablation catheter was positioned so that the proximal edge of the electrode was slightly above the proximal edge of the Vergara's mucosa. The balloon was automatically inflated, and energy was applied at 10 J/cm2. The balloon electrode was moved 4 cm distally, so that the proximal edge of the electrode was aligned with the distal edge of the ablation zone. The process of balloon inflation and ablation was repeated until the top of the gastric folds was reached. The ablation catheter and guidewire were removed, and the balloon was cleaned. The ablation zone was then cleaned of overlying coagulative debris using irrigation and suction via the endoscope and a cleaning cap. The guidewire was reinserted, and then the ablation catheter was reintroduced into the esophagus over the wire. The ablation catheter was positioned under direct endoscopic visualization so that the proximal edge of the electrode was at the proximal edge of the ablation zone. Reinflation and a second round of ablation were performed with the application of 10 J/cm2 to re-treat the Vergara's epithelium already treated with the first round of ablation. The ablation catheter and guidewire were then removed. The areas of the esophagus where Vergara's mucosa had been ablated were then examined with the endoscope. Areas of visible Vergara's esophagus were completely ablated. A hiatal hernia was present. No other significant abnormalities were identified in a careful examination of the stomach. The second portion of the duodenum was normal. Impression: - Esophageal mucosal changes secondary to established long-segment Vergara's disease. Treated with radiofrequency ablation. - Hiatal hernia. - Normal second portion of the duodenum. - No specimens collected. Recommendation: - Discharge patient to home. - Resume previous diet. - Continue present medications. - Use Protonix (pantoprazole) 40 mg PO BID. Procedure Code(s): --- Professional --- 77780, Esophagogastroduodenoscopy, flexible, transoral; with ablation of tumor(s), polyp(s), or other lesion(s) (includes pre- and post-dilation and guide wire passage, when performed) CPT copyright 2021 [employer]. All rights reserved. The codes documented in this report are preliminary and upon die cast supervisor review may be revised to meet current compliance requirements. Pablo Pichardo DO 09/18/2023 1:57:04 PM This report has been signed electronically. Number of Addenda: 0 Note Initiated On: 09/18/2023 1:03 PM
[2023-09-18] MEDS: Mag Hydrox/Al Hydrox/Simeth 30 ML UDC PO (14:20)
== END 2023-09-18 15:20 | disposition home or self-care (01) ==
LOC: EN 12:19 → AC 12:20
PROVIDERS: Anesthesiology; PCP Family Medicine; Referring Provider Family Medicine; Visit Provider Internal Medicine Gastroenterology
PROC: (CPT 43257; principal; 2023-09-18 13:25)
DX: K22.70 Barrett's esophagus without dysplasia (principal); K44.9 Diaphragmatic hernia without obstruction or gangrene; K57.90 Diverticulosis of intestine, part unspecified, without perforation or abscess without bleeding
CPT/HCPCS: 43270; 36416; 85610; J7120; A4216; J2405; J3490

== ENCOUNTER 2023-10-15 05:59 | Outpatient (RCR) | payer MEDICARE, MEDICAID, SELFPAY ==
[2023-08-29 23:32] VITALS: BMI 24.1
[2023-10-05 08:57] LABS: Prothrombin Time (Protime)PT. 53.8 SECONDS (11.7-14.9)
[2023-10-05 09:05] LABS: International Normalized Ratio 6.1
[2023-10-08 07:17] LABS: International Normalized Ratio 2.3; Prothrombin Time (Protime)PT. 25.2 SECONDS (11.7-14.9)
[2023-10-15 07:13] LABS: International Normalized Ratio 1.1; Prothrombin Time (Protime)PT. 14.1 SECONDS (11.7-14.9)
[2023-10-15 07:54] LABS: ALB/GLOB Ratio 0.9 RATIO (0.9-2.4); AST(SGOT) 17 U/L (15-37); Alanine Aminotransfer ALT/SGPT 19 U/L (16-61); Albumin, Serum 3.5 g/dL (3.2-5.0); Alkaline Phosphatase 77 U/L (45-117); Anion Gap 7 (5-15); BUN 6 mg/dL (7-18); BUN/Creat Ratio 6.5 RATIO (10-20); Calcium,Total 8.9 mg/dL (8.5-10.1); Chloride 101 mmol/L (98-107); Creatinine, Serum 0.92 mg/dL (0.70-1.30); EST Glomerular Filtration Rate 87 mL/min (>60); Est Glom Filt Rate - Afr Amer 105 mL/min (>60); Globulin 3.8 g/dL (2.2-4.2); Glucose 84 mg/dL (74-106); Potassium 3.6 mmol/L (3.5-5.1); Protein, Total 7.3 g/dL (6.4-8.2); Sodium Level 133 mmol/L (136-145)
[2023-10-15 08:37] LABS: Vitamin D,25 Hydroxy 24.1 ng/mL
== END 2023-10-28 01:25 | disposition home or self-care (01) ==
LOC: LAB 05:59
PROVIDERS: Internal Medicine Endocrinology, Diabetes & Metabolism; Family Provider Family Medicine; PCP Family Medicine; Referring Provider Nurse Practitioner Family; Visit Provider Nurse Practitioner Family
DX: I48.0 Paroxysmal atrial fibrillation (principal); Z79.01 Long term (current) use of anticoagulants; C79.01 Secondary malignant neoplasm of right kidney and renal pelvis; E55.9 Vitamin D deficiency, unspecified; M81.0 Age-related osteoporosis without current pathological fracture
CPT/HCPCS: 36415; 80053; 82306; 85610

== ENCOUNTER 2023-10-16 11:49 | Day surgery (SDC) | payer MEDICARE, MEDICAID, SELFPAY ==
[2023-10-16] VITALS (8 sets, daily range): BP systolic 101–121; BP diastolic 63–77; PULSE 59–61; RESP 16–18; TEMP 36.2–36.4; O2SAT 96–99; BMI 24.0
--- NOTE | 2023-10-16 | IMM_PTH ---
PATIENT: ENRIQUE MCNALLY III LOC: EN U#:[id number] AGE/SX: 68/M ROOM: RE10/16/[address]: Dr. Pablo Pichardo DO : 1955 BED: DIS: 10/16/2023 SPEC #: [id number] RECD: 10/18/23 13:47 STATUS: LUKE REQ #: [id number] DERRICK: 10/16/23 00:[address]: Pablo Pichardo DEPT: IMMUNOHISTOCHEMISTRY RECD BY: Sergio Wiggins ENTERED: 10/18/23 13:48 SP TYPE: IMMUNO OTHR DR: Jahaira Cerna DO Tissues: Esophageal mucous membrane Procedures: P53 (initial) KI-67 (add) PHYSICIAN & [place] [id number] SPECIMEN INFORMATION: Tissue Source: Distal esophagus biopsy Clinical Info: Vergara's Esophagus Specimen Number: [id number] CPT code: 99120, 07396 METHODOLOGY: Deparaffinized sections of prefer/formalin-fixed tissue or PAP/DQ stained slides are incubated with monoclonal/polyclonal antibodies/oligonucleotide probes. Localization is made via biotin free immunoperoxidase method. Appropriate controls are performed and reacted as expected. Results on target cell population are indicated in the following table: RESULTS: ANTIBODY / CLONE RESULT P53 (DO-7) negative, null pattern Ki-67 (30-9) negative These tests were developed and their performance characteristics determined by [facility]. They may not have been cleared or approved by the U.S. Food and Drug Administration. The FDA has determined that such clearance or approval is not necessary. The above immunohistochemical/dualISH markers are ordered and reviewed by the Pathologist. INTERPRETATION: Distal esophagus, biopsy: No evidence of dysplasia. AM:erin 10/19/2023
[2023-10-16] MEDS: Lactated Ringers 1,000 ML 15 ML IV (12:23)
--- NOTE | 2023-10-16 13:00 | EGD_PTH ---
PATIENT: ENRIQUE MCNALLY III LOC: EN U#:[id number] AGE/SX: 68/M ROOM: RE10/16/[address]: Dr. Pablo Pichardo DO : 1955 BED: DIS: 10/16/2023 SPEC #: [id number] RECD: 10/16/23 16:03 STATUS: LUKE JAMEEL #: [id number] DERRICK: 10/16/23 13:[address]: Pablo Pichardo DEPT: SURGICAL PATHOLOGY RECD BY: Katt Holcomb ENTERED: 10/17/23 08:45 SP TYPE: EGD BIOPSY OT DR: Jahaira Cerna DO Tissues: Esophagus, NOS Procedures: Special Stain Group II Special Stain Group I Surgery Specimen Level IV GMS Stain (control) Alcian Blue/PAS (control) HEADER OPERATION: EGD radio frequency ablation RFA PRE-OP DIAGNOSIS: Vergara's Esophagus TISSUE SUBMITTED: Distal esophagus biopsy MICROSCOPIC DIAGNOSIS Distal esophagus, biopsy; Focal ulceration with associated acute and chronic inflammation and granulation. 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 No evidence of dysplasia. No evidence of fungal organisms. See comment. / 10/18/2023 COMMENT GMS stain with matched control was used in the evaluation of this case. Alcian blue/PAS stain with matched control supports the above diagnosis. Immunohistochemistry ([id number]) for P53 and Ki-67 will be performed and results will be reported separately. MICROSCOPIC DESCRIPTION Slides are reviewed. GROSS DESCRIPTION Received in fixative is one container labeled with the patient's name and designated Distal esophagus biopsy. The specimen consists of multiple irregular fragments of light lópez soft tissue that in aggregate measure 0.8 x 0.5 x 0.1 cm. The specimen is totally submitted in one cassette. / 10/17/2023 TC:2 CPT: 26124,84551,95205
--- NOTE | 2023-10-16 13:31 | PCM.HP.BLA ---
History and Physical Date of Admission: 10/16/23 ENRIQUE MCNALLY, is a 67 M who presents to the office today for follow up. *BGI established 05.02.22 without GI complaints. History of colonic polyps, large hiatal hernia and Vergara?s esophagus.?EGD and colonoscopy 06.28.22?EGD long-segment Vergara?s esophagus; medium hiatal hernia; prominent gastric folds.? Colonoscopy diverticulosis.? OV 07.12.22 continues to do well.?Continue PPI therapy.? OV 01.10.23 recent onset of LLQ>RLQ abdominal discomfort causing nocturnal night sweats. ?CT abd/pel 01.18.23?emphysema changes with granuloma and lung nodule; renal cysts; diverticulosis; umbilical hernia; multiple compression fractures of spine? Contact 02.02.23 reporting he is doing much better than previously. Proceed with EGD and f/u as scheduled.?EGD 07.10.23?long-segment Vergara?s mucosal changes, metaplasia +; medium hiatal hernia; diffusely friable mucosa of entire stomach.? OV 07.24.23- Pt is doing well since last visit. Has not had any heartburn, dysphagia, nausea or abdominal pain. BM are normal. Has no other concerns. ROS Const Constitutional: No fatigue ENT ENT: No difficulty swallowing Gastro GI: No abdominal pain, belching, bloating, change in bowel habits, change in stool character, coffee ground emesis, constipation, cramping, diarrhea, heartburn, difficulty swallowing, feeling full early, excessive flatus, incontinent of stools, Vomiting blood/hematemesis, Blood in stool, loose stools, Black,tarry stools, nausea/dyspepsia, pain with swallowing, vomiting or other Musc Musculoskeletal: Positive for Arthritis; No joint pain Skin Skin: No yellowing of the eye or itchy eyes Psych Psychiatric: No anxiety and No depression Endo Endocrine: No fatigue Aller/Imm Allergy/Immunologic: No itchy eyes Kevin/Lymp Hematologic/Lymphatic: No easy bleeding or easy bruising Exam Const General: cooperative, comfortable and no acute distress Nutritional Appearance: average body habitus Orientation: alert, awake and oriented x3 Eyes Sclera: sclerae normal Resp Effort & Inspection: normal respiratory effort GI Inspection: normal to inspection Palpation: soft, no hepatosplenomegaly, no masses and nontender Quality Reporting Tobacco Screening ([facility] 138) Smoking Status: Former smoker Assessment and Plan Assessment and Plan (1) Barretts esophagus: Status: Chronic Qualifiers: Vergara's esophagus type: without dysplasia Qualified Code(s): K22.70 - Vergara's esophagus without dysplasia Plan: We discussed his EGD and colonoscopy findings, focusing on Vergara's and the increased risk for esophageal cancer. I thought he was on omeprazole but apparently he wasn't, so I rx'd pantoprazole 40 mg QAM to be taken indefinitely. We will repeat EGD in one yr for long segment Vergara's. Due to his extensive intestinal metaplasia we will perform ablation because it makes it very difficult in order to perform surveillance of his esophagus. Repeat colonoscopy 5 yrs. f/u 6 wks. He requested med for chest congestion that has almost resolved, rx sent in for guaifenesin. I have examined the patient and the H&P has been reviewed. There are no clinical changes since date of exam.
--- NOTE | 2023-10-16 15:24 | OP.EGD_ITS ---
Patient Name: Roger Mart Procedure Date: 10/16/2023 2:41 PM Date of : 1955 Age: 68 Procedure: Upper GI endoscopy Indications: For therapy of Vergara's esophagus Providers: Pablo Pichardo DO Medicines: Monitored Anesthesia Care Patient Profile: This is a 68 year old male. Refer to note in patient chart for documentation of history and physical. Patient has symptoms of acute heartburn. Complications: No immediate complications. Procedure: Pre-Anesthesia Assessment: - Prior to the procedure, a History and Physical was performed, and patient medications and allergies were reviewed. [Patient's Condition]. The risks and benefits of the procedure and the sedation options and risks were discussed with [Consent Obtained From]. All questions were answered and informed consent was obtained. Patient identification and proposed procedure were verified [Verifying Personnel] [Verification]. [Mental Status Exam]. [Airway Exam]. [Respiratory Exam]. [CV Exam]. The patient [Abx Prophylaxis Requirement] prophylactic antibiotics [High Risk History Reason] and [High Risk Procedure Reason]. [Anticoagulant Agents] [Days Prior to Procedure]. [ASA Grade]. After reviewing the risks and benefits, the patient was deemed in satisfactory condition to undergo the procedure. [Anesthesia Plan]. Immediately prior to administration of medications, the patient was re-assessed for adequacy to receive sedatives. The heart rate, respiratory rate, oxygen saturations, blood pressure, adequacy of pulmonary ventilation, and response to care were monitored throughout the procedure. The physical status of the patient was re-assessed after the procedure. After obtaining informed consent, the endoscope was passed under direct vision. Throughout the procedure, the patient's blood pressure, pulse, and oxygen saturations were monitored continuously. The Endoscope was introduced through the mouth, and advanced to the second part of duodenum. The gastroscope was introduced through the mouth, and advanced to the second part of duodenum. The upper GI endoscopy was accomplished without difficulty. The patient tolerated the procedure well. Scope In: 2:53:12 PM Scope Out: 3:14:55 PM Total Procedure Duration Time 0 hours 21 minutes 43 seconds Findings: The esophagus and gastroesophageal junction were examined with white light and narrow band imaging (NBI) from a forward view and retroflexed position. There were esophageal mucosal changes secondary to established long-segment Vergara's disease. These changes involved the mucosa at the upper extent of the gastric folds (42 cm from the incisors) extending to the Z-line (33 cm from the incisors). [place]-colored mucosa was present. The maximum longitudinal extent of these esophageal mucosal changes was 10 cm in length. Mucosa was biopsied with a cold forceps for histology in a targeted manner at intervals of 1 cm in the middle third of the esophagus and in the lower third of the esophagus. One specimen bottle was sent to pathology. Circumferential radiofrequency ablation of Vergara's esophagus was performed using the [employer] 360 Express catheter and balloon-based endoscopic ablation system. With the endoscope in place, the position and extent of the Vergara's mucosa and the anatomic landmarks including proximal and distal extent of Vergara's mucosa, top of gastric folds and crural pinch were noted. Endoscopic visualization identified an ablation site including the entire visible Vergara's segment. The Vergara's mucosa was irrigated with N-acetylcysteine (Mucomyst) 1% mixed with water. Gastric contents were suctioned. A guidewire was passed down the biopsy channel of the endoscope. As the endoscope was withdrawn from the mouth, the guidewire was left in place. An auto-sizing radiofrequency ablation balloon catheter was passed transorally over the guidewire into the esophagus. The endoscope was introduced in a [id number] manner with the ablation catheter. Under direct endoscopic visualization, the balloon ablation catheter was positioned so that the proximal edge of the electrode was slightly above the proximal edge of the Vergara's mucosa. The balloon was automatically inflated, and energy was applied at 10 J/cm2. The balloon electrode was moved 4 cm distally, so that the proximal edge of the electrode was aligned with the distal edge of the ablation zone. The process of balloon inflation and ablation was repeated until the top of the gastric folds was reached. The ablation catheter and guidewire were removed, and the balloon was cleaned. The ablation zone was then cleaned of overlying coagulative debris using irrigation and suction via the endoscope and a cleaning cap. The guidewire was reinserted, and then the ablation catheter was reintroduced into the esophagus over the wire. The ablation catheter was positioned under direct endoscopic visualization so that the proximal edge of the electrode was at the proximal edge of the ablation zone. Reinflation and a second round of ablation were performed with the application of 10 J/cm2 to re-treat the Vergara's epithelium already treated with the first round of ablation. The ablation catheter and guidewire were then removed. The areas of the esophagus where Vergara's mucosa had been ablated were then examined with the endoscope. Areas of visible Vergara's esophagus were completely ablated. A medium-sized hiatal hernia was present. No gross lesions were noted in the duodenal bulb. Patchy, white plaques were found in the upper third of the esophagus. Impression: - Esophageal mucosal changes secondary to established long-segment Vergara's disease. Biopsied. Treated with radiofrequency ablation. - Medium-sized hiatal hernia. - No gross lesions in the duodenal bulb. - Esophageal plaques were found, consistent with candidiasis. Recommendation: - Discharge patient to home. - Clear liquid diet. - Continue present medications. - Await pathology results. -Nystatin swish and swallow x 7 days Procedure Code(s): --- Professional --- 82471, Esophagogastroduodenoscopy, flexible, transoral; with ablation of tumor(s), polyp(s), or other lesion(s) (includes pre- and post-dilation and guide wire passage, when performed) 40812, 59,51, Esophagogastroduodenoscopy, flexible, transoral; with biopsy, single or multiple CPT copyright 2021 [employer]. All rights reserved. The codes documented in this report are preliminary and upon treasury agent review may be revised to meet current compliance requirements. Pablo Pichardo DO 10/16/2023 3:24:07 PM This report has been signed electronically. Number of Addenda: 0 Note Initiated On: 10/16/2023 2:41 PM
[2023-10-16 16:32] LABS: INR Fingerstick 1.3; Prothrombin Time Fingerstick 14.3 SEC (11.7-14.9)
== END 2023-10-16 16:24 | disposition home or self-care (01) ==
LOC: EN 11:49 → AC 11:51
PROVIDERS: PCP Family Medicine; Referring Provider Family Medicine; Visit Provider Internal Medicine Gastroenterology
PROC: (CPT 43257; principal; 2023-10-16 12:55)
DX: K22.70 Barrett's esophagus without dysplasia (principal); K44.9 Diaphragmatic hernia without obstruction or gangrene; Z87.891 Personal history of nicotine dependence
CPT/HCPCS: 43270; 43239; 36416; 85610; 88305; 88312; 88313; 88341; 88342; J7120; C1769; J2405

== ENCOUNTER 2023-11-15 06:00 | Outpatient (RCR) | payer MEDICARE, MEDICAID, SELFPAY ==
[2023-10-28 01:25] VITALS: BMI 24.1
[2023-11-02 07:53] LABS: International Normalized Ratio 1.7; Prothrombin Time (Protime)PT. 19.6 SECONDS (11.7-14.9)
[2023-11-08 15:34] LABS: International Normalized Ratio 1.4; Prothrombin Time (Protime)PT. 17.5 SECONDS (11.7-14.9)
[2023-11-15 09:42] LABS: International Normalized Ratio 1.6; Prothrombin Time (Protime)PT. 19.2 SECONDS (11.7-14.9)
== END 2023-11-27 23:52 | disposition home or self-care (01) ==
LOC: LAB 06:00
PROVIDERS: Physician Assistant Medical; Family Provider Family Medicine; PCP Family Medicine; Referring Provider Nurse Practitioner Family; Visit Provider Nurse Practitioner Family
DX: I48.0 Paroxysmal atrial fibrillation (principal); Z79.01 Long term (current) use of anticoagulants
CPT/HCPCS: 36415; 85610

== ENCOUNTER 2023-11-20 10:44 | Day surgery (SDC) | payer MEDICARE, MEDICAID, SELFPAY ==
--- NOTE | 2023-11-20 | ESO_PTH ---
PATIENT: ENRIQUE MCNALLY III LOC: EN U#:[id number] AGE/SX: 68/M ROOM: RE11/20/[address]: Dr. Pablo Pichardo DO : 1955 BED: DIS: 11/20/2023 SPEC #: [id number] RECD: 11/21/23 10:19 STATUS: LUKE JAMEEL #: [id number] DERRICK: 11/20/23 00:[address]: Pablo Pichardo DEPT: SURGICAL PATHOLOGY RECD BY: Ben Andino ENTERED: 11/21/23 10:19 SP TYPE: AUDRA CARRERA DR: Jahaira Cerna DO Tissues: Esophagus, NOS Procedures: Special Stain Group I Surgery Specimen Level IV GMS Stain (control) Alcian Blue/PAS (control) HEADER OPERATION: EGD with biopsy PRE-OP DIAGNOSIS: Vergara's esophagus TISSUE SUBMITTED: Distal esophagus biopsy MICROSCOPIC DIAGNOSIS Distal esophagus, biopsy:Fragments of gastroesophageal mucosa with extensive ulceration, acute and chronic inflammation and granulation tissue reaction. Intestinal metaplasia (goblet cell metaplasia) not identified. See comment. [facility] 11/22/2023 COMMENT Alcian blue/PAS stain with matched control is used in the evaluation of the specimen. Focal bacterial colonization is also noted. Special stain for fungi is positive for organisms (yeast and pseudohyphae) consistent with Hossein species; matched control is appropriate. Correlation with clinical, endoscopic findings and appropriate follow up are necessary. MICROSCOPIC DESCRIPTION Slides are reviewed. GROSS DESCRIPTION Received in fixative is one container labeled with the patient's name and designated Distal esophagus biopsy. The specimen consists of multiple irregular fragments of light lópez soft tissue that in aggregate measure 1.5 x 1.0 x 0.1 cm. The specimen is totally submitted in one cassette. [facility] 11/21/2023 TC:2 CPT:05264, 74174, 48790
[2023-11-20 10:56] LABS: INR Fingerstick 1.2; Prothrombin Time Fingerstick 13.4 SEC (11.7-14.9)
[2023-11-20 11:04] VITALS: BP 111/77; PULSE 64; RESP 18; TEMP 36.4; O2SAT 96; BMI 23.8
[2023-11-20] MEDS: Lactated Ringers 1,000 ML 15 ML IV (11:13)
--- NOTE | 2023-11-20 12:15 | HP.PCM_ITS ---
History and Physical Date of Admission: 11/20/23 ENRIQUE MCNALLY, is a 67 M who presents to the office today for follow up. *BGI established 05.02.22 without GI complaints. History of colonic polyps, large hiatal hernia and Vergara?s esophagus.?EGD and colonoscopy 06.28.22?EGD long-segment Vergara?s e sophagus; medium hiatal hernia; prominent gastric folds.? Colonoscopy diverticulosis.? OV 07.12.22 continues to do well.?Continue PPI therapy.? OV 01.10.23 recent onset of LLQ>RLQ abdominal discomfort causing nocturnal night sweats. ?CT abd/pel 01.18.23?emphysema changes with granuloma and lung nodule; renal cysts; diverticulosis; umbilical hernia; multiple compression fractures of spine? Contact 02.02.23 reporting he is doing much better than previously. Proceed with EGD and f/u as scheduled.?EGD 07.10.23?long-segment Vergara?s mucosal changes, metaplasia +; medium hiatal hernia; diffusely friable mucosa of entire stomach.? OV 07.24.23- Pt is doing well since last visit. Has not had any heartburn, dysphagia, nausea or abdominal pain. BM are normal. Has no other concerns. ROS Const Constitutional: No fatigue ENT ENT: No difficulty swallowing Gastro GI: No abdominal pain, belching, bloating, change in bowel habits, change in stool character, coffee ground emesis, constipation, cramping, diarrhea, heartburn, difficulty swallowing, feeling full early, excessive flatus, incontinent of stools, Vomiting blood/hematemesis, Blood in stool, loose stools, Black,tarry stools, nausea/dyspepsia, pain with swallowing, vomiting or other Musc Musculoskeletal: Positive for Arthritis; No joint pain Skin Skin: No yellowing of the eye or itchy eyes Psych Psychiatric: No anxiety and No depression Endo Endocrine: No fatigue Aller/Imm Allergy/Immunologic: No itchy eyes Kevin/Lymp Hematologic/Lymphatic: No easy bleeding or easy bruising Exam Const General: cooperative, comfortable and no acute distress Nutritional Appearance: average body habitus Orientation: alert, awake and oriented x3 Eyes Sclera: sclerae normal Resp Effort & Inspection: normal respiratory effort GI Inspection: normal to inspection Palpation: soft, no hepatosplenomegaly, no masses and nontender Quality Reporting Tobacco Screening ([facility] 138) Smoking Status: Former smoker Assessment and Plan Assessment and Plan (1) Barretts esophagus: Status: Chronic Qualifiers: Vergara's esophagus type: without dysplasia Qualified Code(s): K22.70 - Vergara's esophagus without dysplasia Plan: We discussed his EGD and colonoscopy findings, focusing on Vergara's and the increased risk for esophageal cancer. I thought he was on omeprazole but apparently he wasn't, so I rx'd pantoprazole 40 mg QAM to be taken indefinitely. We will repeat EGD in one yr for long segment Vergara's. Due to his extensive intestinal metaplasia we will perform ablation because it makes it very difficult in order to perform surveillance of his esophagus. Repeat colonoscopy 5 yrs. f/u 6 wks. He requested med for chest congestion that has almost resolved, rx sent in for guaifenesin. I have examined the patient and the H&P has been reviewed. There are no clinical changes since date of exam.
[2023-11-20 12:41] VITALS: BP 111/77; BP 81/59; PULSE 63; RESP 16; TEMP 36.6; O2SAT 98
[2023-11-20 12:45] VITALS: BP 111/77; BP 81/59; PULSE 68; RESP 16; O2SAT 96
--- NOTE | 2023-11-20 12:46 | OP.EGD_ITS ---
Patient Name: Roger Mart Procedure Date: 11/20/2023 12:14 PM Date of : 1955 Age: 68 Procedure: Upper GI endoscopy Indications: Follow-up of Vergara's esophagus, Vergara's esophagus with dysplasia Providers: Pablo Pichardo DO Referring MD: Jahaira Cerna Do Medicines: Monitored Anesthesia Care Patient Profile: This is a 68 year old male. Refer to note in patient chart for documentation of history and physical. Patient has symptoms. Complications: No immediate complications. Procedure: Pre-Anesthesia Assessment: - Prior to the procedure, a History and Physical was performed, and patient medications and allergies were reviewed. The risks and benefits of the procedure and the sedation options and risks were discussed with the patient. All questions were answered and informed consent was obtained. Patient identification and proposed procedure were verified by the physician in the pre-procedure area. Mental Status Examination: alert and oriented. Airway Examination: normal oropharyngeal airway and neck mobility. Respiratory Examination: clear to auscultation. CV Examination: normal. Prophylactic Antibiotics: The patient does not require prophylactic antibiotics. Prior Anticoagulants: The patient has taken no anticoagulant or antiplatelet agents. After reviewing the risks and benefits, the patient was deemed in satisfactory condition to undergo the procedure. The anesthesia plan was to use monitored anesthesia care (MAC). Immediately prior to administration of medications, the patient was re-assessed for adequacy to receive sedatives. The heart rate, respiratory rate, oxygen saturations, blood pressure, adequacy of pulmonary ventilation, and response to care were monitored throughout the procedure. The physical status of the patient was re-assessed after the procedure. After obtaining informed consent, the endoscope was passed under direct vision. Throughout the procedure, the patient's blood pressure, pulse, and oxygen saturations were monitored continuously. The Endoscope was introduced through the mouth, and advanced to the second part of duodenum. The upper GI endoscopy was accomplished without difficulty. The patient tolerated the procedure well. Scope In: 12:30:16 PM Scope Out: 12:36:39 PM Total Procedure Duration Time 0 hours 6 minutes 23 seconds Findings: A moderate Schatzki ring was found in the upper third of the esophagus. A guidewire was placed and the scope was withdrawn. Dilation was performed with a Savary dilator with no resistance at 45 Fr. The dilation site was examined and showed moderate mucosal disruption. Estimated blood loss was minimal. There were esophageal mucosal changes secondary to established short-segment Vergara's disease present in the lower third of the esophagus. The maximum longitudinal extent of these mucosal changes was 2 cm in length. Mucosa was biopsied with a cold forceps for histology in a targeted manner at intervals of 1 cm in the lower third of the esophagus. One specimen bottle was sent to pathology. Verification of patient identification for the specimen was done. Estimated blood loss was minimal. A hiatal hernia was present. The exam was otherwise without abnormality. No gross lesions were noted in the duodenal bulb. Impression: - Moderate Schatzki ring. Dilated. - Esophageal mucosal changes secondary to established short-segment Vergara's disease. Biopsied. - Hiatal hernia. - The examination was otherwise normal. - No gross lesions in the duodenal bulb. Recommendation: - Discharge patient to home. - Resume previous diet. - Continue present medications. - Await pathology results. - Repeat upper endoscopy in 3 months for surveillance. Procedure Code(s): --- Professional --- 86103, Esophagogastroduodenoscopy, flexible, transoral; with insertion of guide wire followed by passage of dilator(s) through esophagus over guide wire 61815, 59,51, Esophagogastroduodenoscopy, flexible, transoral; with biopsy, single or multiple CPT copyright 2021 [employer]. All rights reserved. The codes documented in this report are preliminary and upon locomotive repairer diesel review may be revised to meet current compliance requirements. Pablo Pichardo DO 11/20/2023 12:46:08 PM This report has been signed electronically. Number of Addenda: 0 Note Initiated On: 11/20/2023 12:14 PM
--- NOTE | 2023-11-20 12:46 | OP.CCLET_ITS ---
11/20/2023 Jahaira Cerna Do Re : Upper GI endoscopy procedure for Roger Mart Dear Eryn This procedure was performed on Monday, November 20, 2023. My impressions and recommendations are as follows: Impressions : - Moderate Schatzki ring. Dilated. - Esophageal mucosal changes secondary to established short-segment Vergara's disease. Biopsied. - Hiatal hernia. - The examination was otherwise normal. - No gross lesions in the duodenal bulb. Recommendations : - Discharge patient to home. - Resume previous diet. - Continue present medications. - Await pathology results. - Repeat upper endoscopy in 3 months for surveillance. My findings are described in the full procedure note, which is enclosed. If I can be of further assistance, please feel free to contact me at . Sincerely, Pablo Pichardo, 11/20/2023 12:46:08 PM This report has been signed electronically.
[2023-11-20 12:50] VITALS: BP 111/77; BP 90/69; PULSE 68; RESP 16; O2SAT 96
[2023-11-20 12:55] VITALS: BP 111/77; BP 95/69; PULSE 63; RESP 16; TEMP 36.1; O2SAT 95
[2023-11-20 13:16] VITALS: BP 111/77
== END 2023-11-20 13:20 | disposition home or self-care (01) ==
LOC: EN 10:45 → AC 10:45
PROVIDERS: PCP Family Medicine; Referring Provider Family Medicine; Visit Provider Internal Medicine Gastroenterology
PROC: 0DJ08ZZ Inspection of Upper Intestinal Tract, Via Natural or Artificial Opening Endoscopic (ICD-10-PCS; CPT 43235; principal; 2023-11-20 11:55)
DX: K22.70 Barrett's esophagus without dysplasia (principal); J44.9 Chronic obstructive pulmonary disease, unspecified; I48.0 Paroxysmal atrial fibrillation; K44.9 Diaphragmatic hernia without obstruction or gangrene; Z87.891 Personal history of nicotine dependence; K22.2 Esophageal obstruction; I10 Essential (primary) hypertension; Z79.01 Long term (current) use of anticoagulants; E78.5 Hyperlipidemia, unspecified
CPT/HCPCS: 43248; 43239; 36416; 85610; 88305; 88312; J7120; J2405

== ENCOUNTER 2023-11-30 12:19 | Outpatient (CLI) | payer MEDICARE, MEDICAID, SELFPAY ==
[2023-11-30 12:25] VITALS: BP 108/80; PULSE 94; RESP 16; TEMP 36.2; O2SAT 97; BMI 24.3
[2023-11-30] MEDS: DENOSUMAB 60 MG/ML SC (12:29)
== END 2023-11-30 12:20 | disposition home or self-care (01) ==
LOC: MEDOUTP 12:19
PROVIDERS: PCP Family Medicine; Referring Provider Internal Medicine Endocrinology, Diabetes & Metabolism; Visit Provider Internal Medicine Endocrinology, Diabetes & Metabolism
DX: M81.0 Age-related osteoporosis without current pathological fracture (principal)
CPT/HCPCS: 96372; J0897

== ENCOUNTER 2023-12-18 12:05 | Outpatient (RCR) | payer MEDICARE, MEDICAID, SELFPAY ==
[2023-11-27 23:52] VITALS: BMI 24.1
[2023-12-18 13:16] LABS: International Normalized Ratio 1.8; Prothrombin Time (Protime)PT. 21.2 SECONDS (11.7-14.9)
== END 2023-12-18 18:00 | disposition home or self-care (01) ==
LOC: LAB 12:05
PROVIDERS: Family Provider Family Medicine; PCP Family Medicine; Referring Provider Nurse Practitioner Family; Visit Provider Nurse Practitioner Family
DX: I48.0 Paroxysmal atrial fibrillation (principal); Z79.01 Long term (current) use of anticoagulants
CPT/HCPCS: 36415; 85610

== ENCOUNTER → 2023-12-29 | Outpatient (CLI) | payer MEDICARE, MEDICAID, SELFPAY ==
--- NOTE | 2023-12-29 07:39 | CT_ITS ---
HISTORY: History of tobacco dependency. TECHNIQUE: Helically acquired images were obtained of the chest without contrast. A radiation dose optimization technique was used for this scan. 899 images. COMPARISON: 12/07/2022, 09/10/2021. FINDINGS: LARGE AIRWAYS: Patent with minimal adherent material in the trachea. LUNGS: Advanced emphysema with mild reticular scarring. Stable pulmonary nodules measuring up to 7 mm in the right middle lobe and 8 mm in the right middle lobe. Stable 3 mm left upper lobe fissural nodule or scar. Stable 2 mm left lower lobe nodules. No new suspicious nodule or acute alveolar consolidation. PLEURA: No pneumothorax or significant pleural effusion. HEART/PERICARDIUM: Heart within normal limits in size with coronary artery calcification. No pericardial effusion. VESSELS: Thoracic aorta nondilated. MEDIASTINUM/SHELDON: Borderline enlarged to mildly enlarged lymph nodes, similar to prior. UPPER ABDOMEN: Left renal cyst again seen. BONES: Degenerative change. Osteopenia with chronic T8, T9, T10, and T12 compression fractures. CT/Low Dose CT Lung Screening IMPRESSION: Lung-RADS category 2: Continue annual screening with low dose CT. Electronically Signed: Vaishnavi Fuentes MD at 15:56 EDT ,
== END | disposition home or self-care (01) ==
PROVIDERS: Referring Provider Internal Medicine Critical Care Medicine; Visit Provider Internal Medicine Critical Care Medicine
DX: F17.210 Nicotine dependence, cigarettes, uncomplicated (principal)
CPT/HCPCS: 71271

== ENCOUNTER 2024-01-14 06:04 | Outpatient (RCR) | payer MEDICARE, MEDICAID, SELFPAY ==
[2023-12-31 06:01] VITALS: BMI 24.1
[2023-12-31 07:27] LABS: International Normalized Ratio 3.2; Prothrombin Time (Protime)PT. 32.7 SECONDS (11.7-14.9)
== END 2024-01-14 18:00 | disposition home or self-care (01) ==
LOC: LAB 06:04
PROVIDERS: Family Provider Family Medicine; PCP Family Medicine; Referring Provider Nurse Practitioner Family; Visit Provider Nurse Practitioner Family
DX: I48.0 Paroxysmal atrial fibrillation (principal); Z79.01 Long term (current) use of anticoagulants
CPT/HCPCS: 36415; 85610

== ENCOUNTER 2024-02-18 06:02 | Outpatient (RCR) | payer MEDICARE, MEDICAID, SELFPAY ==
[2024-01-28 03:57] VITALS: BMI 24.1
[2024-02-04 16:45] LABS: International Normalized Ratio 1.9; Prothrombin Time (Protime)PT. 21.6 SECONDS (11.7-14.9)
[2024-02-18 06:39] LABS: International Normalized Ratio 1.8; Prothrombin Time (Protime)PT. 20.8 SECONDS (11.7-14.9)
== END 2024-02-27 18:00 | disposition home or self-care (01) ==
LOC: LAB 06:02
PROVIDERS: Family Provider Family Medicine; PCP Family Medicine; Referring Provider Nurse Practitioner Family; Visit Provider Nurse Practitioner Family
DX: I48.0 Paroxysmal atrial fibrillation (principal); Z79.01 Long term (current) use of anticoagulants
CPT/HCPCS: 36415; 85610

== ENCOUNTER → 2024-03-04 | Outpatient (CLI) | payer MEDICARE, MEDICAID, SELFPAY ==
[2024-03-04 12:43] LABS: Hemoglobin A1c 5.3 % (3.8-5.6)
== END | disposition home or self-care (01) ==
LOC: MFPLAB 10:59
PROVIDERS: PCP Family Medicine; Visit Provider Family Medicine
DX: R73.01 Impaired fasting glucose (principal)
CPT/HCPCS: 36415; 83036

== ENCOUNTER 2024-03-24 13:29 | Outpatient (RCR) | payer MEDICARE, MEDICAID, SELFPAY ==
[2024-02-27 22:48] VITALS: BMI 24.1
[2024-03-03 07:32] LABS: International Normalized Ratio 3.3; Prothrombin Time (Protime)PT. 33.1 SECONDS (11.7-14.9)
[2024-03-24 15:24] LABS: International Normalized Ratio 1.8; Prothrombin Time (Protime)PT. 20.8 SECONDS (11.7-14.9)
== END 2024-03-24 22:01 | disposition home or self-care (01) ==
LOC: MTLAB 13:29
PROVIDERS: Family Provider Family Medicine; PCP Family Medicine; Referring Provider Nurse Practitioner Family; Visit Provider Nurse Practitioner Family
DX: I48.0 Paroxysmal atrial fibrillation (principal); Z79.01 Long term (current) use of anticoagulants
CPT/HCPCS: 36415; 85610

== ENCOUNTER → 2024-04-02 | Outpatient (CLI) | payer MEDICARE, MEDICAID, SELFPAY ==
--- NOTE | 2024-04-02 07:58 | ECHOD_ITS ---
Reason For Study: ARRHYTHMIA Procedure This was a 2D Doppler, Color Flow transthoracic echocardiogram. Exam performed in department. Left Ventricle Normal LV size. Left ventricular systolic function is normal. The left ventricular ejection fraction is 60 %. No regional wall motion abnormalities noted. Right Ventricle Normal RV size. Normal systolic function. Atria Normal left atrium. Normal right atrium. Mitral Valve Normal mitral valve. Tricuspid Valve Normal tricuspid valve. Mild to moderate (1-2+) tricuspid valve insufficiency. Pulmonary artery systolic pressure is 42 mmHg. Aortic Valve Trisinus/trileaflet aortic valve. Mild focal aortic valve thickening. Pulmonic Valve Normal pulmonic valve. Great Vessels Normal aortic root. The pulmonary artery is normal size. Normal inferior vena cava. Pericardium/Pleural No pericardial effusion. MMode/2D Measurements & Calculations LVIDd: 3.3 cm IVSd: 1.5 cm LVOT diam: 2.3 cm LVIDs: 2.3 cm LVPWd: 1.1 cm LVOT area: 4.1 cm2 RVDd: 4.0 cm FS: 31.7 % Ao root diam: 3.6 cm LAV(MOD-bp): 61.0 ml LVAd ap4: 22.2 cm2 LAV(MOD-bp) Indexed: 32.4 ml/m2 LVLd ap4: 7.5 cm LAV(MOD-sp2): 59.8 ml EDV(MOD-sp4): 52.1 ml LAV(MOD-sp4): 61.5 ml EDV(sp4-el): 55.9 ml LVAs ap4: 12.8 cm2 LVLs ap4: 6.5 cm ESV(MOD-sp4): 20.8 ml ESV(sp4-el): 21.5 ml EF(MOD-sp4): 60.1 % EF(sp4-el): 61.5 % LVAd ap2: 20.7 cm2 SV(MOD-sp4): 31.3 ml SV(MOD-sp2): 29.3 ml LVLd ap2: 7.0 cm EDV(MOD-sp2): 49.4 ml EDV(sp2-el): 51.5 ml LVAs ap2: 12.4 cm2 LVLs ap2: 6.3 cm ESV(MOD-sp2): 20.1 ml ESV(sp2-el): 20.7 ml EF(MOD-sp2): 59.3 % SV(sp4-el): 34.4 ml LA dimension(2D): 5.0 cm LA A4 area: 21.3 cm2 RA A4 area: 22.8 cm2 TAPSE: 1.6 cm Time Measurements MV dec time: 0.17 sec Doppler Measurements & Calculations MV E max álvaro: 101.5 cm/sec Lat Peak E' Álvaro: 9.2 cm/sec Med Peak E' Álvaro: 6.5 cm/sec MV A max álvaro: 24.7 cm/sec E/E' lat: 11.0 E/E' med: 15.7 MV E/A: 4.1 Ao V2 max: 85.8 cm/sec LV V1 max: 71.9 cm/sec MV dec slope: 591.4 cm/sec2 Ao max P.9 mmHg LV V1 max P.1 mmHg Ao V2 mean: 60.5 cm/sec LV V1 mean P.1 mmHg Ao mean P.7 mmHg LV V1 mean: 48.9 cm/sec Ao V2 VTI: 20.5 cm LV V1 VTI: 14.9 cm AV (velocity ratio): 0.73 AURELIA(I,D): 2.9 cm2 AURELIA(V,D): 3.4 cm2 SV(LVOT): 60.6 ml PA V2 max: 55.7 cm/sec TR max álvaro: 312.0 cm/sec PA max PG (full): 0.59 mmHg TR max P.9 mmHg ECHO/Echo Complete Interpretation Summary Normal LV size. Left ventricular systolic function is normal. The left ventricular ejection fraction is 60 %. Mild focal aortic valve thickening. Pulmonary artery systolic pressure is 42 mmHg. Ordering Physician: Tray Santiago Referring Physician: Tray Santiago MD Performed By: Marsha Jarquin RDCS
== END | disposition home or self-care (01) ==
LOC: CVS 07:53
PROVIDERS: PCP Family Medicine; Referring Provider Internal Medicine Cardiovascular Disease; Visit Provider Internal Medicine Cardiovascular Disease
DX: I48.0 Paroxysmal atrial fibrillation (principal)
CPT/HCPCS: 93306

== ENCOUNTER 2024-04-07 09:10 | Inpatient (IN) | payer MEDICARE, MEDICAID, SELFPAY ==
[2024-04-07] VITALS (13 sets, daily range): BP systolic 129–147; BP diastolic 66–92; PULSE 68–88; RESP 12–20; TEMP 36.2–36.6; O2SAT 91–98; BMI 25.8; BMI 24.7
--- NOTE | 2024-04-07 09:48 | ED.VIS.DYS ---
HPI History of Present Illness Chief Complaint: Shortness of Breath Informant: patient Narrative Narrative: 68-year-old male history of COPD presenting to the emergency room with chief complaint of shortness of breath. Patient states that last Sunday something gave him a fever. It only lasted 1 day and Sunday he did note some cough and some shortness of breath. He had an EKG that was previously scheduled that he went for. He states that on he continued to have sweats cough with sputum production and a sensation of dyspnea particularly in the mornings. On Sunday he called his pulmonology office where they prescribed him prednisone and has been taking 60 mg daily Sunday and again this morning. Yesterday he continued to have symptoms and noted that his pulse ox was around 70% when he woke up but had gotten better by time he sat down at the breakfast table. He states however he felt very dyspneic. He had a conversation with his care source doctor who prescribed him doxycycline and he took that yesterday and today. Today with some continued symptoms with a pulse ox of 83% in the morning so he called his rn utilization management um office again and they recommended that he come to emergency. Patient is on Coumadin for atrial fibrillation but is in a normal sinus rhythm typically. Patient has an inhaler that he uses at home and believes he has a nebulizer machine but not the attachments to use it. [facility] Medical History History of echocardiogram DVT (deep venous thrombosis) Injury of back History of hiatal hernia Shortness of breath on exertion Former smoker Leg cramps Cardiology follow-up encounter Pulmonary emphysema Hyperlipidemia Colon polyps Barretts esophagus Scabies Atrial fibrillation and flutter Osteoporosis Essential hypertension History of DVT (deep vein thrombosis) Paroxysmal atrial tachycardia Paroxysmal atrial fibrillation GERD (gastroesophageal reflux disease) Gout Type 2 diabetes mellitus Hypertension Tachycardia jail (current) use of anticoagulants Near syncope Bradycardia Tobacco dependence Afib Home Medications ?Medication ?Instructions ?Recorded ?Last Taken ?Type diltiazem HCl 180 mg 180 mg PO BID blood pressure #180 09/03/23 04/07/24 Rx capsule,extended release 24 hr caps dofetilide 500 mcg capsule 500 mcg PO BID heart #180 caps 09/26/23 04/07/24 Rx potassium chloride 10 mEq 10 meq PO DAILY supplement #90 09/26/23 04/07/24 Rx tablet,extended release(part/cryst) tabs denosumab 60 mg/mL subcutaneous 60 mg subcut [id number] osteoperosis 11/29/23 Unknown Rx syringe (Prolia) #1 mL albuterol sulfate 90 mcg/actuation 2 puff inhalation Q6H PRN 01/28/24 04/07/24 Rx aerosol inhaler shortness of breath or wheezing #8.5 grams furosemide 40 mg tablet 40 mg PO DAILY edema 02/28/24 04/07/24 History omega-3 fatty acids 1,000 mg 1,000 mg PO DAILY supplement 02/28/24 04/07/24 History capsule omeprazole 20 mg capsule,delayed 20 mg PO DAILY acid reflux 02/28/24 04/07/24 History release budesonide 160 mcg-glycopyr 9 2 inh inhalation BID shortness of 03/12/24 04/07/24 Rx mcg-formot 4.8 mcg/actuation HFA breath #10.7 grams inhaler ([facility] [employer] [employer]) allopurinol 300 mg tablet 300 mg PO DAILY 04/07/24 04/07/24 History cholecalciferol (vitamin D3) 50 50 mcg PO DAILY supplement 04/07/24 04/07/24 History mcg (2,000 unit) capsule doxycycline hyclate 100 mg capsule 100 mg PO BID antibiotic 04/07/24 04/07/24 History pantoprazole 40 mg tablet,delayed 40 mg PO BID gerd 04/07/24 04/07/24 History release prednisone 20 mg tablet 60 mg PO DAILY gout flare 04/07/24 04/07/24 History warfarin 2 mg tablet 2 mg PO BLOUNT blood thinner 04/07/24 04/06/24 History warfarin 4 mg tablet 4 mg PO MOTUWETHFRSA blood thinner 04/07/24 04/07/24 History Allergy/AdvReac Type Severity Reaction Status Date / Time secobarbital sodium (From Allergy Unknown Verified 04/07/24 09:10 [place]) venom-honey bee (bee venom Allergy Anaphylaxis Verified 04/07/24 09:10 (honey bee)) Family History Mother Diabetes Hypertension Myocardial infarction Surgical History History of esophagogastroduodenoscopy (EGD) History of hip replacement Status post peripheral artery angioplasty History of left hip replacement History of cardiac radiofrequency ablation (~04/2008) Social History household members: none Smoking Status: Former smoker Tobacco: How many years used: 50 how long ago did patient quit smokin alcohol intake: current alcohol intake frequency: a few times a month Alcohol type: beer substance use type: does not use caffeine: No ROS ROS ED Constitutional Constitutional ED: Reports chills, fever(s) and sweats; Denies weight loss Eyes Eyes: Denies change in vision or diplopia ENT ENT ED: Denies ear pain, rhinorrhea or sore throat Cardiovascular Cardiovascular: Denies chest pain, orthopnea, palpitations or racing heartbeat Respiratory/Chest Respiratory/Chest: Reports cough, dyspnea, dyspnea on exertion and sputum; Denies orthopnea Gastrointestinal Gastrointestinal: Denies abdominal pain, diarrhea, nausea or vomiting Genitourinary Genitourinary ED: Denies dysuria, hematuria or urinary frequency Musculoskeletal Musculoskeletal: Denies arthralgias or myalgias Integumentary Denies abscess or rash Neurologic Neurologic: Denies headache(s) or weakness Psychiatric Psychiatric: Denies anxiety, depression, suicidal ideation or suicidal thoughts Endocrine Endocrinology: Denies polydipsia, polyphagia or polyuria Allergic/Immunologic Allergic/Immunologic ED: Denies mouth swelling, tongue swelling or urticaria EXAM Physical Exam Narrative Exam Narrative: Patient's pulse ox is 91% on room air as he talks his pulse ox increases to 94%. Const Vital Signs: 04/07/24 09:10 04/07/24 10:00 04/07/24 11:10 Temperature 97.8 F Temperature Source Temporal Pulse Rate 85 73 88 Respiratory Rate 18 12 20 H Blood Pressure 147/86 H Blood Pressure Mean 106 Pulse Ox 93 96 Oxygen Delivery Method Room Air Nasal Cannula Oxygen Flow Rate (L/min) 2 Positive well nourished and well developed General Appearance ED: well developed and NAD HEENT Reports normocephalic, head/scalp atraumatic and moist mucous membranes Eyes PERRL and EOMs intact bilaterally Neck no lymphadenopathy, supple and no JVD Resp normal respiratory effort Auscultation: rhonchi lower bilaterally and wheezes lower bilaterally Cardio regular rate, regular rhythm and no murmurs GI normal to inspection, nondistended, normoactive bowel sounds and non-tender Palpation: soft Back/Spine no CVA tenderness and normal ROM Extremity normal to inspection General Extremety ED: Negative for edema General Extremity: Negative for edema Neuro oriented x3 and CN's II-XII intact bilaterally Sensorium / Orientation: alert Motor Exam: strength 5/5 throughout Psych mental status grossly normal Mood & Affect: Negative for depressed or tearful Skin no rashes or lesions noted and no wounds MDM MDM MDM Narrative Medical decision making narrative: Differential diagnosis includes but not limited to pneumonia pleural effusion malignancy COPD exacerbation bronchitis heart failure My independent interpretation the chest x-ray is left lingular infiltrate. White count slightly elevated 13.5 with 89.4 neutrophils. Troponin is 4 BMP 98.6 glucose 142 creatinine 1.02 potassium 3.4. Patient received breathing treatment. Getting the patient out of the bed to standing he becomes hypoxic. I do recommend admission. He received Rocephin and azithromycin. Additional labs were added. INR is 4.8. No signs of active bleeding. Lactic acid normal at 1.6. LFTs within normal limits History & Record Review Discussion w/independent historian: Patient Lab Data Attestation: I reviewed the patient's lab results. Labs: Laboratory Results - last 24 hr 04/07/24 04/07/24 10:05 11:52 WBC 13.5 H RBC 4.27 L Hgb 13.0 Hct 39.7 L MCV 93.0 MCH 30.4 MCHC 32.7 RDW Std Deviation 53.1 H RDW Coeff of Vivek 15.5 H Plt Count 392 MPV 9.0 Immature Gran % (Auto) 1.400 H Neut % (Auto) 89.4 H Lymph % (Auto) 5.1 L [place] % (Auto) 4.0 Eos % (Auto) 0.0 Baso % (Auto) 0.1 Absolute Neuts (auto) 12.1 H Absolute Lymphs (auto) 0.69 L Nucleated RBC % 0 PT 44.2 H INR 4.8 H* APTT 80.2 H Sodium 136 Potassium 3.4 L Chloride 99 Carbon Dioxide 29.0 Anion Gap 8 BUN 14 Creatinine 1.02 Estim Creat Clear Calc 69.31 Est GFR (MDRD) Af Amer 93 Est GFR (MDRD) Non-Af 77 BUN/Creatinine Ratio 13.7 Glucose 142 H Lactic Acid 1.6 Calcium 9.4 Total Bilirubin 0.80 Direct Bilirubin 0.23 AST 11 L ALT 21 Alkaline Phosphatase 67 Troponin I High Sens 4 B-Natriuretic Peptide 98.6 Total Protein 7.6 Albumin 3.2 Globulin 4.4 H Radiography Diagnostic Testing: Clinical Impression(s) from Imaging Studies Chest X-Ray 04/07/24 10:13 IMPRESSION: Hyperexpanded lungs with chronic interstitial changes and superimposed lingular infiltrate. Follow-up recommended to ensure resolution Electronically Signed: Derek Driver MD at 10:43 EDT Reading Location ID and State: [facility] / [place] , Service support , EKG Initial EKG: Attestation: I personally reviewed and interpreted this EKG as follows: Comments: Sinus rhythm with a first-degree AV block ventricular rate of 74 bpm PVC noted Management Discussion w/another healthcare provider: Hospitalist (Dr. Nunn) Discharge Plan Dx/Rx/DC Orders Clinical Impression: Pneumonia, Type 2 diabetes mellitus, Paroxysmal atrial fibrillation, COPD (chronic obstructive pulmonary disease), Hypoxia, Supratherapeutic INR Disposition Disposition: Acute Care Hospital [facility] Discharge Date/Time: 04/07/24 13:04
[2024-04-07] MEDS: Ipratropium/Albuterol Sulfate 3 ML AMPUL.NEB INHALATION ×3 (09:58→23:53)
[2024-04-07 10:12] LABS: Absolute Lymphocyte Count 0.69 X10^3/uL (0.83-4.51); Absolute Neutrophil Count 12.1 X10^3/uL (2.0-7.7); Basophil# 0.01 X10^3/uL; Basophil% 0.1 % (0-1); Hematocrit 39.7 % (40-54); Lymphocyte # 0.69 X10^3/ul (0.83-4.51); Lymphocyte % 5.1 % (19-41); Mean Corp Hgb Conc 32.7 g/dL (32-36); Mean Corpuscular Hgb 30.4 pg (27.0-32.0); Monocyte# 0.54 X10^3/uL; NRBC Flagged by Analyzer 0 % (0-5); Neutrophil # 12.08 X10^3/uL (2.7-7.7); Neutrophil % 89.4 % (47-70); Platelet Count 392 K/mm3 (150-450); RBC Distribution Width CV 15.5 % (11.6-14.6); RBC Distribution Width SD 53.1 fl (35.1-43.9); Red Blood Count 4.27 M/mm3 (4.6-6.2); White Blood Count 13.5 K/mm3 (4.4-11.0)
--- NOTE | 2024-04-07 10:13 | RAD_ITS ---
STUDY: X-RAY CHEST REASON FOR EXAM: Male, 68 years old. Fever and cough TECHNIQUE: PA and lateral views of the chest. COMPARISON: CT chest from 12/29/2023 FINDINGS: EKG leads overlie the chest Lungs are hyperexpanded with chronic interstitial changes and superimposed lingular infiltrate. No demonstrated effusion. Normal size heart. Normal mediastinum and pam. Normal visualized pulmonary arteries. There is atherosclerotic calcification of the aortic arch with tortuosity. There are diffuse degenerative changes of the visualized thoracic spine. There is degenerative osteoarthritis of the bilateral shoulders. There is no demonstrated abnormality of the visualized soft tissue structures of the upper abdomen. RAD/Chest PA and Lateral IMPRESSION: Hyperexpanded lungs with chronic interstitial changes and superimposed lingular infiltrate. Follow-up recommended to ensure resolution Electronically Signed: Derek Driver MD at 10:43 EDT ,
[2024-04-07 10:36] LABS: BNP,B-Type NATRIURETIC PEPTIDE 98.6 pg/mL (0-100)
[2024-04-07 10:46] LABS: Anion Gap 8 (5-15); BUN 14 mg/dL (7-18); BUN/Creat Ratio 13.7 RATIO (10-20); Calcium,Total 9.4 mg/dL (8.5-10.1); Chloride 99 mmol/L (98-107); Creatinine, Serum 1.02 mg/dL (0.70-1.30); EST Glomerular Filtration Rate 77 mL/min (>60); Est Glom Filt Rate - Afr Amer 93 mL/min (>60); Estimated Creatinine Clearance 69.31 ml/min; Glucose 142 mg/dL (74-106); Potassium 3.4 mmol/L (3.5-5.1); Sodium Level 136 mmol/L (136-145); Troponin-I HS 4 pg/mL (3.0-78.0)
--- NOTE | 2024-04-07 11:34 | EKG12_ITS ---
Test Reason : SOB Blood Pressure : / mmHG Vent. Rate : 074 BPM Atrial Rate : 074 BPM P-R Int : 320 ms QRS Dur : 074 ms QT Int : 410 ms P-R-T Axes : 053 071 055 degrees QTc Int : 455 ms Sinus rhythm with 1st degree A-V block with occasional Premature ventricular complexes Septal infarct , age undetermined Abnormal ECG Confirmed by LEANNA REIS, GIRISH ([id number]), material expeditor ISABELLE FARNSWORTH ([id number]) on 04/08/2024 7:35:25 AM Referred By: Confirmed By:GIRISH RAM MD
[2024-04-07] MEDS: Ceftriaxone 1 GM/50 ML BAG IV (12:05)
[2024-04-07 12:13] LABS: Prothrombin Time (Protime)PT. 44.2 SECONDS (11.7-14.9)
[2024-04-07 12:14] LABS: Partial Thromboplast Time 80.2 Seconds (24.1-36.2)
[2024-04-07 12:24] LABS: International Normalized Ratio 4.8
[2024-04-07 12:30] LABS: Lactic Acid 1.6 mmol/L (0.4-1.9)
[2024-04-07 12:39] LABS: AST(SGOT) 11 U/L (15-37); Alanine Aminotransfer ALT/SGPT 21 U/L (16-61); Albumin, Serum 3.2 g/dL (3.2-5.0); Alkaline Phosphatase 67 U/L (45-117); Bilirubin, Direct 0.23 mg/dL (0.00-0.30); Globulin 4.4 g/dL (2.2-4.2); Protein, Total 7.6 g/dL (6.4-8.2)
--- NOTE | 2024-04-07 13:41 | EKG12_ITS ---
Test Reason : Blood Pressure : / mmHG Vent. Rate : 096 BPM Atrial Rate : 000 BPM P-R Int : 000 ms QRS Dur : 084 ms QT Int : 362 ms P-R-T Axes : 000 080 011 degrees QTc Int : 457 ms Ectopic Atrial Tachycardia with variable AV conduction Cannot rule out Septal infarct (cited on or before 09-AUG-2014) Abnormal ECG Confirmed by Peter Barba ([id number]), assignment editor ISABELLE FARNSWORTH ([id number]) on 05/15/2024 1:09:41 PM Referred By: FLY Confirmed By:Peter Barba
--- NOTE | 2024-04-07 16:05 | HP.PCM.HOS_ITS ---
[facility] - General General Date of Admission: 04/07/24 Date of Service: 04/07/24 Chief Complaint: Shortness of breath HPI Narrative ENRIQUE MCNALLY, is a 68 M who presents with shortness of breath. This is a 68-year-old male with a history of COPD who presents with 1 week history of shortness of breath. Patient had started not having symptoms on Sunday. Did receive prescription of prednisone but was not helping, contacted his resistor testing machine operator and was started on doxycycline but continued to get worse. He presented to the emergency room where he was diagnosed with a left upper lobe pneumonia. He received ceftriaxone and azithromycin in the emergency room. He has been coughing up some blood recently. He is having dyspnea on exertion. [facility] Medical History History of echocardiogram DVT (deep venous thrombosis) Injury of back History of hiatal hernia Shortness of breath on exertion Former smoker Leg cramps Cardiology follow-up encounter Pulmonary emphysema Hyperlipidemia Colon polyps Barretts esophagus Scabies Atrial fibrillation and flutter Osteoporosis Essential hypertension History of DVT (deep vein thrombosis) Paroxysmal atrial tachycardia Paroxysmal atrial fibrillation GERD (gastroesophageal reflux disease) Gout Type 2 diabetes mellitus Hypertension Tachycardia senior living (current) use of anticoagulants Near syncope Bradycardia Tobacco dependence Afib Home Medications ?Medication ?Instructions ?Recorded ?Last Taken ?Type diltiazem HCl 180 mg 180 mg PO BID blood pressure #180 09/03/23 04/07/24 Rx capsule,extended release 24 hr caps dofetilide 500 mcg capsule 500 mcg PO BID heart #180 caps 09/26/23 04/07/24 Rx potassium chloride 10 mEq 10 meq PO DAILY supplement #90 09/26/23 04/07/24 Rx tablet,extended release(part/cryst) tabs denosumab 60 mg/mL subcutaneous 60 mg subcut [id number] osteoperosis 11/29/23 Unknown Rx syringe (Prolia) #1 mL albuterol sulfate 90 mcg/actuation 2 puff inhalation Q6H PRN 01/28/24 04/07/24 Rx aerosol inhaler shortness of breath or wheezing #8.5 grams furosemide 40 mg tablet 40 mg PO DAILY edema 02/28/24 04/07/24 History omega-3 fatty acids 1,000 mg 1,000 mg PO DAILY supplement 02/28/24 04/07/24 History capsule omeprazole 20 mg capsule,delayed 20 mg PO DAILY acid reflux 02/28/24 04/07/24 History release budesonide 160 mcg-glycopyr 9 2 inh inhalation BID shortness of 03/12/24 04/07/24 Rx mcg-formot 4.8 mcg/actuation HFA breath #10.7 grams inhaler ([employer]) allopurinol 300 mg tablet 300 mg PO DAILY 04/07/24 04/07/24 History cholecalciferol (vitamin D3) 50 50 mcg PO DAILY supplement 04/07/24 04/07/24 History mcg (2,000 unit) capsule doxycycline hyclate 100 mg capsule 100 mg PO BID antibiotic 04/07/24 04/07/24 History pantoprazole 40 mg tablet,delayed 40 mg PO BID gerd 04/07/24 04/07/24 History release prednisone 20 mg tablet 60 mg PO DAILY gout flare 04/07/24 04/07/24 History warfarin 2 mg tablet 2 mg PO BLOUNT blood thinner 04/07/24 04/06/24 History warfarin 4 mg tablet 4 mg PO MOTUWETHFRSA blood thinner 04/07/24 04/07/24 History Allergy/AdvReac Type Severity Reaction Status Date / Time secobarbital sodium (From Allergy Unknown Verified 04/07/24 09:10 [place]) venom-honey bee (bee venom Allergy Anaphylaxis Verified 04/07/24 09:10 (honey bee)) Family History Mother Diabetes Hypertension Myocardial infarction Surgical History History of esophagogastroduodenoscopy (EGD) History of hip replacement Status post peripheral artery angioplasty History of left hip replacement History of cardiac radiofrequency ablation (~04/2008) Social History household members: none Smoking Status: Former smoker Tobacco: How many years used: 50 how long ago did patient quit smokin alcohol intake: current alcohol intake frequency: a few times a month Alcohol type: beer substance use type: does not use caffeine: No ROS ROS Narrative All review of systems were negative except as mentioned above in the history of present illness and the other review of systems. Vital Signs Vital Signs Vital Signs: 04/07/24 09:10 04/07/24 10:00 04/07/24 11:10 Temperature 36.6 C Temperature Source Temporal Pulse Rate 85 73 88 Respiratory Rate 18 12 20 H Blood Pressure 147/86 H Blood Pressure Mean 106 Blood Pressure Source Blood Pressure Position Blood Pressure Location Pulse Ox 93 96 Oxygen Delivery Method Room Air Nasal Cannula Oxygen Flow Rate (L/min) 2 04/07/24 12:42 04/07/24 12:42 04/07/24 12:57 Temperature 36.6 C 36.6 C 36.6 C Temperature Source Oral Oral Pulse Rate 69 68 68 Respiratory Rate 18 18 18 Blood Pressure 138/66 H 142/91 H 142/91 H Blood Pressure Mean 90 108 108 Blood Pressure Source Monitor Blood Pressure Position Semi-Fowlers Blood Pressure Location Right Arm Pulse Ox 96 96 96 Oxygen Delivery Method Room Air Room Air Oxygen Flow Rate (L/min) 04/07/24 12:57 04/07/24 13:35 Temperature Temperature Source Pulse Rate Respiratory Rate 18 Blood Pressure Blood Pressure Mean Blood Pressure Source Blood Pressure Position Blood Pressure Location Pulse Ox 98 Oxygen Delivery Method Room Air Room Air Oxygen Flow Rate (L/min) Weight Weight: 76.113 kg Body Mass Index (BMI) 24.7 Physical Exam Narrative - Physical Exam General: Alert, Oriented x3, Cooperative. Up at the side of the bed. No respiratory distress. No conversational dyspnea. HEENT: Atraumatic, PERRLA, EOMI, Normocephalic Oral: Moist Mucosa, No Gingival or Mucosal Lesions/ Ulcerations Neck: Supple, No JVD, Negative Carotid Bruits Lungs: Clear to auscultation, Normal air movement Cardiovascular: Regular rate, Normal S1, Normal S2, No murmurs Abdomen: Bowel Sounds Present, Soft, Non Tender, Non-Distended, No Hepato- splenomegaly Extremities: No clubbing, No cyanosis, No edema, Capillary Refill Less than 3 Seconds Skin: No rashes, No breakdown Musculoskeletal: No Tenderness to Palpation of Joints or Extremities Neurological: Neuro grossly intact Psych/Mental Status: Normal Affect, Appropriate Results Lab / Micro Data 04/07/24 10:05 04/07/24 10:05 Labs: Laboratory Results - last 24 hr 04/07/24 10:05: WBC 13.5 H, RBC 4.27 L, Hgb 13.0, Hct 39.7 L, MCV 93.0, MCH 30.4, MCHC 32.7, RDW Std Deviation 53.1 H, RDW Coeff of Vivek 15.5 H, Plt Count 392, MPV 9.0, Immature Gran % (Auto) 1.400 H, Neut % (Auto) 89.4 H, Lymph % (Auto) 5.1 L, [place] % (Auto) 4.0, Eos % (Auto) 0.0, Baso % (Auto) 0.1, Absolute Neuts (auto) 12.1 H, Absolute Lymphs (auto) 0.69 L, Nucleated RBC % 0, Sodium 136, Potassium 3.4 L, Chloride 99, Carbon Dioxide 29.0, Anion Gap 8, BUN 14, Creatinine 1.02, Estim Creat Clear Calc 69.31, Est GFR (MDRD) Af Amer 93, Est GFR (MDRD) Non-Af 77, BUN/Creatinine Ratio 13.7, Glucose 142 H, Calcium 9.4, Troponin I High Sens 4, B-Natriuretic Peptide 98.6 04/07/24 11:52: PT 44.2 H, INR 4.8 H*, APTT 80.2 H, Lactic Acid 1.6, Total Bilirubin 0.80, Direct Bilirubin 0.23, AST 11 L, ALT 21, Alkaline Phosphatase 67, Total Protein 7.6, Albumin 3.2, Globulin 4.4 H Micro: Microbiology 04/07/24 13:15 Mucosa - Nasopharyngeal Coronavirus COVID-19 PCR - Final 04/07/24 13:00 Urine, Clean Catch Streptococcus pneumoniae Antigen (M - Final 04/07/24 13:00 Urine, Clean Catch Legionella Antigen - Final Imaging Radiology Impression Chest X-Ray 04/07/24 10:13 IMPRESSION: Hyperexpanded lungs with chronic interstitial changes and superimposed lingular infiltrate. Follow-up recommended to ensure resolution Electronically Signed: Derek Driver MD at 10:43 EDT , Assessment & Plan Assessment/Plan (1) Pneumonia: PLAN: Left upper lobe on chest x-ray Strep and Legionella antigens negative. COVID-19 negative. Sputum culture and blood culture currently pending. Continue antibiotics with ceftriaxone. Holding off on azithromycin given the fact that patient is on Tikosyn and risk for prolonged QTc (2) Hemoptysis: PLAN: Due to pneumonia and supratherapeutic INR Check CT of chest. (3) Supratherapeutic INR: PLAN: Secondary to warfarin and probably recent antibiotic usage. Holding off on warfarin for now. PLAN: Plan Chronic conditions * A-fib: Continue Tikosyn, diltiazem. Holding off anticoagulation as INR supratherapeutic * Gout: Continue allopurinol VTE prophylaxis: Not indicated as patient is already anticoagulated CODE STATUS: Addressed with the patient. Patient wishes to be full CODE STATUS. Charges/Coding Visit Charges Inpatient E&M: 74364 Init Hosp L3
--- NOTE | 2024-04-07 16:05 | CT_ITS ---
INDICATION: hemoptysis EXAMINATION: CT CHEST WITH CONTRAST - CT Chest W/ Contrast Injection TECHNIQUE: Helically acquired images were obtained of the chest following IV contrast. A radiation dose optimization technique was used for this scan. COMPARISON: 12/07/2022, 01/17/2024. FINDINGS: LUNGS, PLEURA AND LARGE AIRWAYS: Severe hyperexpansion of the lungs. Severe COPD/centrilobular emphysema. Stable severe diffuse interstitial thickening. Findings have worsened since prior exam suggestive of some overlying interstitial edema. Since prior study patient has developed superimposed infiltrate throughout the left upper lobe, and to a lesser extent, the left lower lobe. No prior study patient developing irregular pulmonary parenchymal density approximately 3.9 cm and the right apex most consistent with scarring but cannot exclude neoplasm. No effusions. No pleural effusion or thickening. No pneumothorax. THYROID: No thyroid lesions. HEART AND PERICARDIUM: Heart size is normal. No pericardial effusion. Prominent coronary artery calcifications. VESSELS: Thoracic aorta is not dilated. No aortic dissection. Prominent calcified plaque and tortuosity of the aorta. No obvious central pulmonary embolism although this study was not performed with the pulmonary embolism protocol. MEDIASTINUM AND SHELDON: No mediastinal or hilar adenopathy. Esophagus is unremarkable. No hiatal hernia. UPPER ABDOMEN: No acute pathology. BONES: Diffuse demineralization. Diffuse degenerative changes. Several compression fractures, stable since prior study. CT/Chest WITH Contrast IMPRESSION: There is severe COPD/centrilobular emphysema. Diffuse interstitial thickening, which is fibrocystic than it may be overlying interstitial edema. Superimposed infiltrate throughout the left upper lobe and to lesser extent left lower lung. Irregular worsening 3.9 cm density of the right upper lobe, suggest follow-up in 6 months. Electronically Signed: Saleem Silva MD at 17:31 EDT ,
[2024-04-07] MEDS: Albuterol 2.5 MG/3 ML VIAL.NEB. INHALATION (19:19)
[2024-04-07] MEDS: Doxycycline 100 MG in Dextrose 5%-Water (250mL Bag) 250 ML 250 MG IV (20:43)
[2024-04-07] MEDS: guaiFENesin 600 MG Tablet PO (20:44)
[2024-04-07] MEDS: Pantoprazole Sodium 40 MG Tablet PO (20:44)
[2024-04-07] MEDS: dilTIAZem CD 180 MG Capsule PO (20:44)
[2024-04-07] MEDS: Dofetilide 250 MCG Capsule 500 MCG PO (20:45)
[2024-04-08] VITALS (10 sets, daily range): BP systolic 112–126; BP diastolic 80–85; PULSE 78–112; RESP 16–18; TEMP 36.4–37.1; O2SAT 94–98
[2024-04-08] MEDS: Ipratropium/Albuterol Sulfate 3 ML AMPUL.NEB INHALATION ×5 (03:18→19:30)
[2024-04-08 06:54] LABS: Absolute Lymphocyte Count 2.48 X10^3/uL (0.83-4.51); Absolute Neutrophil Count 7.4 X10^3/uL (2.0-7.7); Basophil# 0.09 X10^3/uL; Basophil% 0.8 % (0-1); Eosinophils% 0.9 % (0-5); Hematocrit 41.6 % (40-54); Hemoglobin 13.5 g/dL (13.0-16.5); Lymphocyte # 2.48 X10^3/ul (0.83-4.51); Lymphocyte % 21.7 % (19-41); Mean Corp Hgb Conc 32.5 g/dL (32-36); Mean Corpuscular Hgb 29.9 pg (27.0-32.0); Monocyte# 0.95 X10^3/uL; Monocyte% 8.3 % (0-10); NRBC Flagged by Analyzer 0 % (0-5); Neutrophil # 7.37 X10^3/uL (2.7-7.7); Neutrophil % 64.3 % (47-70); Platelet Count 406 K/mm3 (150-450); RBC Distribution Width CV 15.3 % (11.6-14.6); Red Blood Count 4.52 M/mm3 (4.6-6.2); White Blood Count 11.5 K/mm3 (4.4-11.0)
[2024-04-08 07:18] LABS: Anion Gap 6 (5-15); BUN 11 mg/dL (7-18); Calcium,Total 9.1 mg/dL (8.5-10.1); Chloride 102 mmol/L (98-107); EST Glomerular Filtration Rate 79 mL/min (>60); Est Glom Filt Rate - Afr Amer 96 mL/min (>60); Glucose 103 mg/dL (74-106); Potassium 3.2 mmol/L (3.5-5.1); Sodium Level 136 mmol/L (136-145)
--- NOTE | 2024-04-08 07:52 | PN.HOSP_ITS ---
Reason for Visit Reason for Visit: Diagnoses Pneumonia, unspecified organism (04/07/24) Hemoptysis (04/07/24) Abnormal coagulation profile (04/07/24) Subjective Subjective Breathing better. Had 1 episode of hemoptysis last night. Objective Data Objective Data Vital Signs: Vital Signs Temp Pulse Resp BP Pulse Ox O2 Del Method O2 Flow Rate 36.4 C L 100 18 112/82 H 95 Room Air 2 04/08/24 06:01 04/08/24 06:39 04/08/24 06:39 04/08/24 06:01 04/08/24 06:39 04/08/24 06:39 04/07/24 11:10 Oxygen Flow Rate (L/min) 2 Oxygen Delivery Method Room Air Weight: 76.113 kg Body Mass Index (BMI) 24.7 Intake & Output: Intake and Output for Last 24 Hours 04/06/24 04/07/24 04/08/24 23:59 23:59 23:59 Intake Total 310 / 310 Balance 310 / 310 Lab / Micro Data 04/08/24 06:29 04/08/24 06:29 Labs: Laboratory Results - last 24 hr 04/07/24 10:05: WBC 13.5 H, RBC 4.27 L, Hgb 13.0, Hct 39.7 L, MCV 93.0, MCH 30.4, MCHC 32.7, RDW Std Deviation 53.1 H, RDW Coeff of Vivek 15.5 H, Plt Count 392, MPV 9.0, Immature Gran % (Auto) 1.400 H, Neut % (Auto) 89.4 H, Lymph % (Auto) 5.1 L, [place] % (Auto) 4.0, Eos % (Auto) 0.0, Baso % (Auto) 0.1, Absolute Neuts (auto) 12.1 H, Absolute Lymphs (auto) 0.69 L, Nucleated RBC % 0, Sodium 136, Potassium 3.4 L, Chloride 99, Carbon Dioxide 29.0, Anion Gap 8, BUN 14, Creatinine 1.02, Estim Creat Clear Calc 69.31, Est GFR (MDRD) Af Amer 93, Est GFR (MDRD) Non-Af 77, BUN/Creatinine Ratio 13.7, Glucose 142 H, Calcium 9.4, Troponin I High Sens 4, B-Natriuretic Peptide 98.6 04/07/24 11:52: PT 44.2 H, INR 4.8 H*, APTT 80.2 H, Lactic Acid 1.6, Total Bilirubin 0.80, Direct Bilirubin 0.23, AST 11 L, ALT 21, Alkaline Phosphatase 67, Total Protein 7.6, Albumin 3.2, Globulin 4.4 H 04/08/24 06:29: WBC 11.5 H, RBC 4.52 L, Hgb 13.5, Hct 41.6, MCV 92.0, MCH 29.9, MCHC 32.5, RDW Std Deviation 52.0 H, RDW Coeff of Vivek 15.3 H, Plt Count 406, MPV 9.0, Immature Gran % (Auto) 4.000 H, Neut % (Auto) 64.3, Lymph % (Auto) 21.7, [place] % (Auto) 8.3, Eos % (Auto) 0.9, Baso % (Auto) 0.8, Absolute Neuts (auto) 7.4, Absolute Lymphs (auto) 2.48, Nucleated RBC % 0, Sodium 136, Potassium 3.2 L , Chloride 102, Carbon Dioxide 28.0, Anion Gap 6, BUN 11, Creatinine 1.00, Estim Creat Clear Calc 70.70, Est GFR (MDRD) Af Amer 96, Est GFR (MDRD) Non-Af 79, BUN/Creatinine Ratio 11.0, Glucose 103, Calcium 9.1 Micro: Microbiology 04/07/24 13:49 Mucosa - Nose Respiratory Panel (PCR) - Final 04/07/24 13:15 Mucosa - Nasopharyngeal Coronavirus COVID-19 PCR - Final 04/07/24 13:00 Urine, Clean Catch Streptococcus pneumoniae Antigen (M - Final 04/07/24 13:00 Urine, Clean Catch Legionella Antigen - Final Radiography Diagnostic Testing: Radiology Impression Chest X-Ray 04/07/24 10:13 IMPRESSION: Hyperexpanded lungs with chronic interstitial changes and superimposed lingular infiltrate. Follow-up recommended to ensure resolution Electronically Signed: Derek Driver MD at 10:43 EDT , Chest CT 04/07/24 16:05 IMPRESSION: There is severe COPD/centrilobular emphysema. Diffuse interstitial thickening, which is fibrocystic than it may be overlying interstitial edema. Superimposed infiltrate throughout the left upper lobe and to lesser extent left lower lung. Irregular worsening 3.9 cm density of the right upper lobe, suggest follow-up in 6 months. Electronically Signed: Saleem Silva MD at 17:31 EDT , Physical Exam Const alert and no apparent distress HEENT head/scalp atraumatic and moist oral mucous membranes Resp normal respiratory effort, no retractions, no use of accessory muscles and clear to auscultation bilaterally Cardio regular rate, regular rhythm, S1 normal heart sound and S2 normal heart sound GI normal to inspection, nondistended, normoactive bowel sounds, soft to palpation, non-tender and non-distended Extremity normal to inspection, full ROM and no clubbing, cyanosis or edema Neuro Sensorium / Orientation: awake and alert Assessment & Plan Assessment/Plan (1) Pneumonia: PLAN: Left upper lobe on chest x-ray Strep and Legionella antigens negative. COVID-19 negative. Sputum culture and blood culture currently pending. Continue antibiotics with ceftriaxone. Holding off on azithromycin given the fact that patient is on Tikosyn and risk for prolonged QTc (2) Hemoptysis: PLAN: Due to pneumonia and supratherapeutic INR CT of the chest showed left upper lobe infiltrate. Additionally noted a 3.9 cm density in the right upper lobe. (3) Supratherapeutic INR: PLAN: Secondary to warfarin and probably recent antibiotic usage. Holding off on warfarin for now. PLAN: Plan Chronic conditions * A-fib: Continue Tikosyn, diltiazem. Holding off anticoagulation as INR supratherapeutic * Gout: Continue allopurinol VTE prophylaxis: Not indicated as patient is already anticoagulated CODE STATUS: Addressed with the patient. Patient wishes to be full CODE STATUS. Disposition: monitor overnight. Charges/Coding Visit Charges Inpatient E&M: 06119 Subs Hosp L2
[2024-04-08] MEDS: predniSONE 20 MG Tablet 60 MG PO (08:02)
[2024-04-08 08:57] LABS: Prothrombin Time (Protime)PT. 52.6 SECONDS (11.7-14.9)
--- NOTE | 2024-04-08 10:10 | CASEMGMT ---
NITZA COLLAZO Assessment: Face to Face with pt for initial transition planning/care coordination assessment. NITZA COLLAZO introduced self and role at [facility], pt voices understanding and consents to assessment. Pt is A&O x4 and answers all questions appropriately at this time. Pt sitting up on edge of bed finishing a breathing treatment. RT in room. Care providers, pharmacy, and demographics verified/updated. Admitting Dx: pneumonia Strata Score: 2 PCP:Glendy Specialists:Chapito pulm; Pamela cardio; Jaya cardio Preferred Pharmacy: [facility] Insurance: My Care CRSC, [facility] Prescription Benefit: yes LNOK: Angi [employer], mother Living Arrangements: Pt lives in the upstairs of a two story home with his mother living on main level. There are 4 steps to enter. Pt denies difficulty with navigating steps. Pt reports he is I in ADL/IADLs and denies concerns at home. Pt reports he takes care of his mother. Transportation: Pt drives self and denies concerns with transportation. DME:pox, walkers, w/c but pt does not use AD HHC/SNF: Denies hx of HHC, pt has been to SNF but cannot recall name of SNF. Pt states no concerns with going home at time of dc. Pt denies any need for services such as [facility] or HHC. Pt states he is a diet controlled diabetic, he does not have a BGM nor does he need to check his blood sugars. Pt states no further concerns/needs. CM to follow. Advised pt to ask CM if any further question/concerns/needs arise, voices understanding. Pt Goal: Home Plan: Home [facility] CM
[2024-04-08] MEDS: Potassium Chloride Oral Tablet 20 MEQ 40 MEQ PO ×2 (10:36→17:46)
[2024-04-08] MEDS: Cholecalciferol (VIT D3) 25 MCG TABLET (1,000 UNITS) 50 MCG PO (10:37)
[2024-04-08] MEDS: Allopurinol 300 MG Tablet PO (10:37)
[2024-04-08] MEDS: guaiFENesin 600 MG Tablet PO ×2 (10:37→20:32)
[2024-04-08] MEDS: Pantoprazole Sodium 40 MG Tablet PO ×2 (10:37→20:33)
[2024-04-08] MEDS: Furosemide 40 MG Tablet PO (10:37)
[2024-04-08] MEDS: Dofetilide 250 MCG Capsule 500 MCG PO ×2 (10:37→20:33)
[2024-04-08] MEDS: Ceftriaxone 2 GM in 0.9% Normal Saline (50mL MB+) 50 ML IV (10:42)
[2024-04-08] MEDS: dilTIAZem CD 180 MG Capsule PO ×2 (10:42→20:32)
[2024-04-08] MEDS: Doxycycline 100 MG in Dextrose 5%-Water (250mL Bag) 250 ML 250 MG IV ×2 (11:30→20:32)
[2024-04-09] VITALS (8 sets, daily range): BP systolic 114–124; BP diastolic 80–94; PULSE 90–116; RESP 16–20; TEMP 36.3–37.1; O2SAT 95–99
[2024-04-09] MEDS: Ipratropium/Albuterol Sulfate 3 ML AMPUL.NEB INHALATION ×3 (00:07→11:23)
[2024-04-09 06:56] LABS: Absolute Lymphocyte Count 2.18 X10^3/uL (0.83-4.51); Absolute Neutrophil Count 9.5 X10^3/uL (2.0-7.7); Basophil# 0.05 X10^3/uL; Basophil% 0.4 % (0-1); Eosinophil# 0.12 X10^3/uL; Eosinophils% 0.9 % (0-5); Hemoglobin 13.3 g/dL (13.0-16.5); Lymphocyte # 2.18 X10^3/ul (0.83-4.51); Lymphocyte % 16.1 % (19-41); Mean Corp Hgb Conc 33.3 g/dL (32-36); Mean Corpuscular Hgb 30.3 pg (27.0-32.0); Mean Corpuscular Volume 91.1 fL (80-94); Mean Platelet Vol. 9.2 fl (6.2-12.0); Monocyte# 1.11 X10^3/uL; Monocyte% 8.2 % (0-10); NRBC Flagged by Analyzer 0 % (0-5); Neutrophil # 9.45 X10^3/uL (2.7-7.7); Neutrophil % 69.8 % (47-70); Platelet Count 409 K/mm3 (150-450); RBC Distribution Width CV 15.1 % (11.6-14.6); RBC Distribution Width SD 49.9 fl (35.1-43.9); Red Blood Count 4.39 M/mm3 (4.6-6.2); White Blood Count 13.5 K/mm3 (4.4-11.0)
[2024-04-09 07:09] LABS: Prothrombin Time (Protime)PT. 48.2 SECONDS (11.7-14.9)
[2024-04-09 07:29] LABS: International Normalized Ratio 5.3
[2024-04-09 08:14] LABS: Anion Gap 8 (5-15); BUN 11 mg/dL (7-18); BUN/Creat Ratio 12.9 RATIO (10-20); Calcium,Total 8.7 mg/dL (8.5-10.1); Chloride 102 mmol/L (98-107); Creatinine, Serum 0.85 mg/dL (0.70-1.30); EST Glomerular Filtration Rate 95 mL/min (>60); Est Glom Filt Rate - Afr Amer 115 mL/min (>60); Estimated Creatinine Clearance 83.18 ml/min; Glucose 92 mg/dL (74-106); Potassium 3.7 mmol/L (3.5-5.1); Sodium Level 133 mmol/L (136-145)
[2024-04-09] MEDS: predniSONE 20 MG Tablet 60 MG PO (08:28)
--- NOTE | 2024-04-09 08:32 | PCM.PN.HOSP ---
Reason for Visit Reason for Visit: Diagnoses Pneumonia, unspecified organism (04/07/24) Hemoptysis (04/07/24) Abnormal coagulation profile (04/07/24) Subjective Subjective No further hemoptysis Objective Data Objective Data Vital Signs: Vital Signs Temp Pulse Resp BP Pulse Ox O2 Del Method O2 Flow Rate 37.1 C 114 H 16 118/91 H 95 Room Air 2 04/09/24 08:26 04/09/24 08:26 04/09/24 08:26 04/09/24 08:04/09/24 08:26 04/09/24 08:04/07/24 11:10 Oxygen Flow Rate (L/min) 2 Oxygen Delivery Method Room Air Weight: 76.113 kg Body Mass Index (BMI) 24.7 Intake & Output: Intake and Output for Last 24 Hours 04/07/24 04/08/24 04/09/24 23:59 23:59 23:59 Intake Total 310 / 310 1520 / 1520 Balance 310 / 310 1520 / 1520 Lab / Micro Data 04/09/24 06:14 04/09/24 06:14 Labs: Laboratory Results - last 24 hr 04/08/24 08:25: PT 52.6 H, INR 6.0 H* 04/09/24 06:14: WBC 13.5 H, RBC 4.39 L, Hgb 13.3, Hct 40.0, MCV 91.1, MCH 30.3, MCHC 33.3, RDW Std Deviation 49.9 H, RDW Coeff of Vivek 15.1 H, Plt Count 409, MPV 9.2, Immature Gran % (Auto) 4.600 H, Neut % (Auto) 69.8, Lymph % (Auto) 16.1 L, [place] % (Auto) 8.2, Eos % (Auto) 0.9, Baso % (Auto) 0.4, Absolute Neuts (auto) 9.5 H, Absolute Lymphs (auto) 2.18, Nucleated RBC % 0, PT 48.2 H, INR 5.3 H*, Sodium 133 L, Potassium 3.7, Chloride 102, Carbon Dioxide 23.0, Anion Gap 8, BUN 11, Creatinine 0.85, Estim Creat Clear Calc 83.18, Est GFR (MDRD) Af Amer 115, Est GFR (MDRD) Non-Af 95, BUN/Creatinine Ratio 12.9, Glucose 92, Calcium 8.7 Micro: Microbiology 04/07/24 21:53 Sputum, Expectorated/Coughed Gram Stain - Final 04/07/24 13:49 Mucosa - Nose Respiratory Panel (PCR) - Final 04/07/24 13:15 Mucosa - Nasopharyngeal Coronavirus COVID-19 PCR - Final 04/07/24 13:00 Urine, Clean Catch Streptococcus pneumoniae Antigen (M - Final 04/07/24 13:00 Urine, Clean Catch Legionella Antigen - Final Physical Exam Const alert and no apparent distress HEENT head/scalp atraumatic and moist oral mucous membranes Resp normal respiratory effort, no retractions, no use of accessory muscles and clear to auscultation bilaterally Cardio regular rate, regular rhythm, S1 normal heart sound and S2 normal heart sound Assessment & Plan Assessment/Plan (1) Pneumonia: PLAN: Strep and Legionella antigens negative. COVID-19 negative. Sputum culture and blood culture currently pending. Continue antibiotics with ceftriaxone. Holding off on azithromycin given the fact that patient is on Tikosyn and risk for prolonged QTc Patient will be discharged with Augmentin. (2) Hemoptysis: PLAN: Due to pneumonia and supratherapeutic INR CT of the chest showed left upper lobe infiltrate. Additionally noted a 3.9 cm density in the right upper lobe. (3) Supratherapeutic INR: PLAN: Secondary to warfarin and probably recent antibiotic usage. Holding off on warfarin for now. Went up while he was here but since trended down. Would continue to hold off on his warfarin for another 48 hours. (4) Lung nodule: PLAN: Measuring 3.9 cm in the right upper lobe. Will need to be followed up in 6 months. PLAN: Plan Chronic conditions A-fib: Continue Tikosyn, diltiazem. Holding off anticoagulation as INR supratherapeutic Gout: Continue allopurinol COPD: Not in exacerbation. Patient requesting nebulizer. Patient states that he had a nebulizer but subsequent loss that had not used that in years. Advised patient to resume his normal breathing treatments. Follow-up with Dr. Uriarte. VTE prophylaxis: Not indicated as patient is already anticoagulated CODE STATUS: Addressed with the patient. Patient wishes to be full CODE STATUS.
[2024-04-09] MEDS: Furosemide 40 MG Tablet PO (10:03)
[2024-04-09] MEDS: guaiFENesin 600 MG Tablet PO (10:03)
[2024-04-09] MEDS: Pantoprazole Sodium 40 MG Tablet PO (10:03)
[2024-04-09] MEDS: Dofetilide 250 MCG Capsule 500 MCG PO (10:03)
[2024-04-09] MEDS: dilTIAZem CD 180 MG Capsule PO (10:04)
[2024-04-09] MEDS: Allopurinol 300 MG Tablet PO (10:04)
[2024-04-09] MEDS: Cholecalciferol (VIT D3) 25 MCG TABLET (1,000 UNITS) 50 MCG PO (10:04)
[2024-04-09] MEDS: Ceftriaxone 2 GM in 0.9% Normal Saline (50mL MB+) 50 ML IV (10:06)
--- NOTE | 2024-04-09 10:51 | DS.PCM_ITS ---
Providers Date of Admission: 04/07/24 Primary Care Physician: Adriel Pike MD Reason For Visit: PNEUMONIA Diagnosis Discharge Diagnosis (1) Pneumonia: Status: Acute Code(s): J18.9 - Pneumonia, unspecified organism Plan: Strep and Legionella antigens negative. COVID-19 negative. Sputum culture and blood culture currently pending. Continue antibiotics with ceftriaxone and doxycycline. Holding off on azithromycin given the fact that patient is on Tikosyn and risk for prolonged QTc Patient will be discharged with Augmentin. Patient already had a doxycycline prescription which she will continue for couple more days to completion. (2) Hemoptysis: Status: Acute Code(s): R04.2 - Hemoptysis Plan: Due to pneumonia and supratherapeutic INR CT of the chest showed left upper lobe infiltrate. Additionally noted a 3.9 cm density in the right upper lobe. (3) Supratherapeutic INR: Status: Acute Code(s): R79.1 - Abnormal coagulation profile Plan: Secondary to warfarin and probably recent antibiotic usage. Holding off on warfarin for now. Went up while he was here but since trended down. Would continue to hold off on his warfarin for another 48 hours. (4) Lung nodule: Status: Chronic Code(s): R91.1 - Solitary pulmonary nodule Plan: Measuring 3.9 cm in the right upper lobe. Will need to be followed up in 6 months. Plan Chronic conditions * A-fib: Continue Tikosyn, diltiazem. Holding off anticoagulation as INR supratherapeutic * Gout: Continue allopurinol * COPD: Not in exacerbation. Patient requesting nebulizer. Patient states that he had a nebulizer but subsequent loss that had not used that in years. Advised patient to resume his normal breathing treatments. Follow-up with Dr. Uriarte. Patient will continue prednisone that he was already prescribed to completion. VTE prophylaxis: Not indicated as patient is already anticoagulated CODE STATUS: Addressed with the patient. Patient wishes to be full CODE STATUS. Medications at Discharge Home Medications diltiazem HCl 180 mg capsule,extended release 24 hr 180 mg PO BID blood pressure #180 caps 09/03/23 dofetilide 500 mcg capsule 500 mcg PO BID heart #180 caps 09/26/23 potassium chloride 10 mEq tablet,extended release(part/cryst) 10 meq PO DAILY supplement #90 tabs 09/26/23 denosumab 60 mg/mL subcutaneous syringe (Prolia) 60 mg subcut [id number] osteoperosis #1 mL 11/29/23 albuterol sulfate 90 mcg/actuation aerosol inhaler 2 puff inhalation Q6H PRN shortness of breath or wheezing #8.5 grams 01/28/24 furosemide 40 mg tablet 40 mg PO DAILY edema 02/28/24 omega-3 fatty acids 1,000 mg capsule 1,000 mg PO DAILY supplement 02/28/24 omeprazole 20 mg capsule,delayed release 20 mg PO DAILY acid reflux 02/28/24 budesonide 160 mcg-glycopyr 9 mcg-formot 4.8 mcg/actuation HFA inhaler (Breztri Aerosphere) 2 inh inhalation BID shortness of breath #10.7 grams 03/12/24 allopurinol 300 mg tablet 300 mg PO DAILY 04/07/24 cholecalciferol (vitamin D3) 50 mcg (2,000 unit) capsule 50 mcg PO DAILY supplement 04/07/24 doxycycline hyclate 100 mg capsule 100 mg PO BID antibiotic 04/07/24 pantoprazole 40 mg tablet,delayed release 40 mg PO BID gerd 04/07/24 prednisone 20 mg tablet 60 mg PO DAILY gout flare 04/07/24 amoxicillin 875 mg-potassium clavulanate 125 mg tablet 1 tab PO BID #6 tabs 04/09/24 guaifenesin 600 mg tablet, extended release 12 hr (Mucinex) 600 mg PO BID #10 tabs 04/09/24 warfarin 2 mg tablet 3 mg PO DAILY blood thinner #30 tabs 04/09/24 Hospital Course Operations None Procedures None Summary of Care Provided Minutes Spent on Discharge: 31 Hospital Course: Patient presents with pneumonia and was [place] outpatient antibiotics with doxycycline. Patient was started on ceftriaxone is here and has subsequently felt better overall. He also did have some hemoptysis when he initially presented but that subsequently resolved. Patient did have a CT of his chest that showed a left upper lobe diffuse infiltrate. Patient will be discharged with Augmentin. Antibiotics are limited as he is already on Tikosyn and we have to be cautious in regards to QTc prolonging medications. Weight / BMI Weight Weight: 76.113 kg Body Mass Index (BMI) 24.7 ABG / Lab / Microbiology Data 04/09/24 06:14 04/09/24 06:14 Laboratory: Laboratory Results - last 24 hr 04/09/24 06:14: WBC 13.5 H, RBC 4.39 L, Hgb 13.3, Hct 40.0, MCV 91.1, MCH 30.3, MCHC 33.3, RDW Std Deviation 49.9 H, RDW Coeff of Vivek 15.1 H, Plt Count 409, MPV 9.2, Immature Gran % (Auto) 4.600 H, Neut % (Auto) 69.8, Lymph % (Auto) 16.1 L, [place] % (Auto) 8.2, Eos % (Auto) 0.9, Baso % (Auto) 0.4, Absolute Neuts (auto) 9.5 H, Absolute Lymphs (auto) 2.18, Nucleated RBC % 0, PT 48.2 H, INR 5.3 H*, S odium 133 L, Potassium 3.7, Chloride 102, Carbon Dioxide 23.0, Anion Gap 8, BUN 11, Creatinine 0.85, Estim Creat Clear Calc 83.18, Est GFR (MDRD) Af Amer 115, Est GFR (MDRD) Non-Af 95, BUN/Creatinine Ratio 12.9, Glucose 92, Calcium 8.7 Microbiology: Microbiology 04/07/24 21:53 Sputum, Expectorated/Coughed Gram Stain - Final 04/07/24 21:53 Sputum, Expectorated/Coughed Respiratory Culture - Preliminary Presumptive C albicans 04/07/24 13:49 Mucosa - Nose Respiratory Panel (PCR) - Final 04/07/24 13:15 Mucosa - Nasopharyngeal Coronavirus COVID-19 PCR - Final 04/07/24 13:00 Urine, Clean Catch Streptococcus pneumoniae Antigen (M - Final 04/07/24 13:00 Urine, Clean Catch Legionella Antigen - Final D/C Instructions Discharge Diet: Low fat / Low cholesterol Meaningful Use Info Meaningful Use Meaningful Use Diagnoses (Choose all that apply): None applicable Ischemic Stroke Statin Dosing Therapy Reference: STATIN DOSE THERAPY REFERENCE: * Patients > 75 years receive moderate or high dose statin therapy. * Patients 75 years or YOUNGER should receive HIGH intensity statin dose unless contraindicated. You will be required to document reason for non-treatment if statin daily dose does not meet guidelines. HIGH DOSE STATIN THERAPY DAILY Atorvastatin > than or = to 40 mg Rosuvastatin > than or = to 20 mg Amlodipine + Atorvastatin > than or = to 2.5/40 mg Ezetimibe + Simvastatin 10/80 mg Simvastatin 80mg Discharge Plan Admission Admit Date/Time: 04/07/24 12:09 Primary Reason for Your Visit: Pneumonia Attending Provider: Gagandeep Nunn Primary Care Provider: Adriel Pike Discharge Orders/Prescriptions Prescriptions: New guaifenesin [Mucinex] 600 mg Tablet Extended Release 12hr 600 mg PO BID Qty: 10 0RF amoxicillin-pot clavulanate 875-125 mg tablet 1 tab PO BID Qty: 6 0RF Continued omega-3 fatty acids 1,000 mg capsule 1,000 mg PO DAILY furosemide 40 mg tablet 40 mg PO DAILY omeprazole 20 mg capsule,delayed release(DR/EC) 20 mg PO DAILY pantoprazole 40 mg tablet,delayed release (DR/EC) 40 mg PO BID allopurinol 300 mg tablet 300 mg PO DAILY doxycycline hyclate 100 mg capsule 100 mg PO BID Patient Comments: START DATE: 04/06/2024 END DATE: 04/12/2024 Rx Instructions: TAKE ONE CAPSULE BY MOUTH TWICE DAILY FOR 7 DAYS. prednisone 20 mg tablet 60 mg PO DAILY Patient Comments: START DATE: 04/06/2024 END DATE: 04/10/2024 Rx Instructions: TAKE THREE TABLETS (60MG) BY MOUTH ONCE DAILY FOR FIVE DAYS. cholecalciferol (vitamin D3) 50 mcg (2,000 unit) capsule 50 mcg PO DAILY diltiazem HCl 180 mg capsule,extended release 24hr 180 mg PO BID Qty: 180 3RF dofetilide 500 mcg capsule 500 mcg PO BID Qty: 180 3RF potassium chloride 10 mEq tablet,ER particles/crystals 10 meq PO DAILY Qty: 90 3RF Prolia 60 mg/mL syringe 60 mg subcut [id number] Qty: 1 1RF albuterol sulfate 90 mcg/actuation HFA aerosol inhaler 2 puff inhalation Q6H PRN (Reason: shortness of breath or wheezing) Qty: 8.5 6RF Breztri Aerosphere 160-9-4.8 mcg/actuation HFA aerosol inhaler 2 inh inhalation BID Qty: 10.7 6RF Changed warfarin 2 mg tablet 3 mg PO DAILY Qty: 30 0RF Protocol: Dose Management Condition: Sunday Dose/Route: 2 mg Instruction: 1 x 2 mg tablet Condition: Sunday Dose/Route: 4 mg Instruction: 1 x 4 mg tablet Condition: Sunday Dose/Route: 4 mg Instruction: 1 x 4 mg tablet Condition: Sunday Dose/Route: 4 mg Instruction: 1 x 4 mg tablet Condition: Dose/Route: 4 mg Instruction: 1 x 4 mg tablet Condition: Sunday Dose/Route: 4 mg Instruction: 1 x 4 mg tablet Condition: Sunday Dose/Route: 4 mg Instruction: 1 x 4 mg tablet Protocol Text: Adjustment Start Date: Sunday03/24/24 INR Value: 1.8 INR Date: 03/24/24 Recheck Date: 04/07/24 Discontinued warfarin 4 mg tablet 4 mg PO MOTUWETHSA Protocol: Dose Management Condition: Sunday Dose/Route: 2 mg Instruction: 1 x 2 mg tablet Condition: Sunday Dose/Route: 4 mg Instruction: 1 x 4 mg tablet Condition: Sunday Dose/Route: 4 mg Instruction: 1 x 4 mg tablet Condition: Sunday Dose/Route: 4 mg Instruction: 1 x 4 mg tablet Condition: Dose/Route: 4 mg Instruction: 1 x 4 mg tablet Condition: Sunday Dose/Route: 4 mg Instruction: 1 x 4 mg tablet Condition: Sunday Dose/Route: 4 mg Instruction: 1 x 4 mg tablet Protocol Text: Adjustment Start Date: Sunday03/24/24 INR Value: 1.8 INR Date: 03/24/24 Recheck Date: 04/07/24 Referrals / Follow Up: Adriel Pike MD [Primary Care Provider] - Charges/Coding Visit Charges Inpatient E&M: 98566 Init Hosp L3
[2024-04-09] MEDS: Doxycycline 100 MG in Dextrose 5%-Water (250mL Bag) 250 ML 250 MG IV (11:03)
--- NOTE | 2024-04-09 11:22 | CASEMGMT ---
Pt did not qualify for home oxygen.
== END 2024-04-09 16:14 | disposition home or self-care (01) | DRG 194 ==
LOC: ED 11:36 → MS3 12:25
PROVIDERS: Emergency Provider Emergency Medicine; PCP Family Medicine
DX: J18.9 Pneumonia, unspecified organism (principal); R04.2 Hemoptysis; J44.0 Chronic obstructive pulmonary disease with (acute) lower respiratory infection; I10 Essential (primary) hypertension; I48.0 Paroxysmal atrial fibrillation; M1A.9XX0 Chronic gout, unspecified, without tophus (tophi); R79.1 Abnormal coagulation profile; R91.1 Solitary pulmonary nodule; Z79.01 Long term (current) use of anticoagulants; Z79.52 Long term (current) use of systemic steroids; Z79.899 Other long term (current) drug therapy; Z87.891 Personal history of nicotine dependence
CPT/HCPCS: 36415; 71046; 71260; 80048; 80076; 83605; 83880; 84484; 85025; 85610; 85730; 87040; 87070; 87205; 87449; 87633; 87635; 93005; 94640; 94668; 97802; 99284; Q9967; A4216; J0696

== ENCOUNTER 2024-04-15 15:17 | Emergency (ER) | payer MEDICARE, MEDICAID, SELFPAY ==
[2024-04-15 15:18] VITALS: BP 96/79; PULSE 114; RESP 22; TEMP 36.2; O2SAT 99; BMI 23.8
--- NOTE | 2024-04-15 16:12 | EX.ED.DYSGE1 ---
HPI History of Present Illness Chief Complaint: Palpitations Informant: patient Narrative Narrative: Presents with palpitations and heart fluttering noting for the past 3 days. Patient states he was in the hospital for 3 days discharge 6 days ago for pneumonia. He finished his steroids Sunday finish his antibiotics Sunday. He was doing well Sunday and noted his heart rate going up. He has history of atrial flutter on warfarin and diltiazem 180 mg twice daily. He is followed by Dr. Santiago and Dr. Cavanaugh. He had an ablation in the past. He states normal heart rate 60s and 70s. He picked up a pulse ox his oxygen was fine however heart rate would go up to 100s on Sunday's been going higher and higher. He feels lightheaded when he stands. He has not had any vomiting or diarrhea. He took his morning diltiazem. No chest pains. Prior similar symptoms: Yes Recent Illness/Hospitalization: Yes [facility] Medical History History of echocardiogram DVT (deep venous thrombosis) Injury of back History of hiatal hernia Shortness of breath on exertion Former smoker Leg cramps Cardiology follow-up encounter Pulmonary emphysema Hyperlipidemia Colon polyps Barretts esophagus Scabies Atrial fibrillation and flutter Osteoporosis Essential hypertension History of DVT (deep vein thrombosis) Paroxysmal atrial tachycardia Paroxysmal atrial fibrillation GERD (gastroesophageal reflux disease) Gout Type 2 diabetes mellitus Hypertension 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 Near syncope Bradycardia Tobacco dependence Afib Home Medications ?Medication ?Instructions ?Recorded ?Last Taken ?Type diltiazem HCl 180 mg 180 mg PO BID blood pressure #180 09/03/23 04/07/24 Rx capsule,extended release 24 hr caps dofetilide 500 mcg capsule 500 mcg PO BID heart #180 caps 09/26/23 04/07/24 Rx potassium chloride 10 mEq 10 meq PO DAILY supplement #90 09/26/23 04/07/24 Rx tablet,extended release(part/cryst) tabs denosumab 60 mg/mL subcutaneous 60 mg subcut [id number] osteoperosis 11/29/23 Unknown Rx syringe (Prolia) #1 mL albuterol sulfate 90 mcg/actuation 2 puff inhalation Q6H PRN 01/28/24 04/07/24 Rx aerosol inhaler shortness of breath or wheezing #8.5 grams furosemide 40 mg tablet 40 mg PO DAILY edema 02/28/24 04/07/24 History omega-3 fatty acids 1,000 mg 1,000 mg PO DAILY supplement 02/28/24 04/07/24 History capsule omeprazole 20 mg capsule,delayed 20 mg PO DAILY acid reflux 02/28/24 04/07/24 History release budesonide 160 mcg-glycopyr 9 2 inh inhalation BID shortness of 03/12/24 04/07/24 Rx mcg-formot 4.8 mcg/actuation HFA breath #10.7 grams inhaler (Breztri Aerosphere) allopurinol 300 mg tablet 300 mg PO DAILY 04/07/24 04/07/24 History cholecalciferol (vitamin D3) 50 50 mcg PO DAILY supplement 04/07/24 04/07/24 History mcg (2,000 unit) capsule doxycycline hyclate 100 mg capsule 100 mg PO BID antibiotic 04/07/24 04/07/24 History pantoprazole 40 mg tablet,delayed 40 mg PO BID gerd 04/07/24 04/07/24 History release prednisone 20 mg tablet 60 mg PO DAILY gout flare 04/07/24 04/07/24 History amoxicillin 875 mg-potassium 1 tab PO BID #6 tabs 04/09/24 Unknown Rx clavulanate 125 mg tablet guaifenesin 600 mg tablet, 600 mg PO BID #10 tabs 04/09/24 Unknown Rx extended release 12 hr (Mucinex) warfarin 2 mg tablet 3 mg PO DAILY blood thinner #30 04/09/24 04/06/24 Rx tabs diltiazem HCl 240 mg 240 mg PO BID #60 caps 04/15/24 Unknown Rx capsule,extended release 24 hr (Cardizem CD) Allergy/AdvReac Type Severity Reaction Status Date / Time secobarbital sodium (From Allergy Unknown Verified 04/07/24 09:10 [place]) venom-honey bee (bee venom Allergy Anaphylaxis Verified 04/07/24 09:10 (honey bee)) Family History Mother Diabetes Hypertension Myocardial infarction Surgical History History of esophagogastroduodenoscopy (EGD) History of hip replacement Status post peripheral artery angioplasty History of left hip replacement History of cardiac radiofrequency ablation (~04/2008) Social History household members: none Smoking Status: Former smoker Tobacco: How many years used: 50 how long ago did patient quit smokin alcohol intake: current alcohol intake frequency: a few times a month Alcohol type: beer substance use type: does not use caffeine: No ROS ROS ED Constitutional Constitutional ED: Denies chills, fever(s) or sweats Eyes Eyes: Denies change in vision ENT ENT ED: Denies dysphagia or sore throat Cardiovascular Cardiovascular: Reports palpitations and racing heartbeat; Denies chest pain or leg edema Respiratory/Chest Respiratory/Chest: Denies cough, dyspnea or dyspnea on exertion Gastrointestinal Gastrointestinal: Denies abdominal pain, diarrhea, nausea or vomiting Genitourinary Genitourinary ED: Denies dysuria, hematuria or urinary frequency Musculoskeletal Musculoskeletal: Denies back pain, extremity pain or neck pain Integumentary Denies rash or wounds Neurologic Neurologic: Denies headache(s), paresthesias or weakness EXAM Physical Exam Const Vital Signs: 04/15/24 15:18 04/15/24 15:43 04/15/24 16:17 Temperature 97.2 F L Temperature Source Temporal Pulse Rate 114 H 110 H Respiratory Rate 22 H 16 Respiratory Effort Normal Blood Pressure 96/79 114/86 H Blood Pressure Mean 84 95 Pulse Ox 99 97 Oxygen Delivery Method Room Air Room Air 04/15/24 17:00 04/15/24 18:00 04/15/24 19:00 Temperature Temperature Source Pulse Rate 108 H 101 H 108 H Respiratory Rate 17 12 16 Respiratory Effort Blood Pressure 101/75 113/90 H 121/93 H Blood Pressure Mean 83 97 102 Pulse Ox 97 98 98 Oxygen Delivery Method Room Air Room Air Room Air 04/15/24 19:11 Temperature 97.9 F Temperature Source Pulse Rate 100 Respiratory Rate 16 Respiratory Effort Blood Pressure 121/93 H Blood Pressure Mean 102 Pulse Ox 98 Oxygen Delivery Method Positive well nourished and well developed General Appearance ED: well developed and NAD HEENT Reports moist mucous membranes normocephalic and atraumatic Eyes EOMs intact bilaterally and conjunctivae normal General Eye ED: Yes normal appearance of both eyes Neck no lymphadenopathy and supple General: Negative for tenderness Chest Wall Chest: Negative for tenderness Resp normal respiratory effort and normal air movement Effort and Inspection: symmetric chest movement; Negative for respiratory distress Cardio regular rhythm and no murmurs Rate: tachycardic Peripheral Pulses: pulses 2+ throughout GI normal to inspection, nondistended, normoactive bowel sounds and non-tender Palpation: Negative for guarding or rebound tenderness present Back/Spine no CVA tenderness and no thoracic nor lumbar tenderness Extremity normal to inspection General Extremety ED: Negative for edema or tenderness General Extremity: Negative for edema Neuro oriented x3 and no sensory deficits noted Sensorium / Orientation: awake and alert Skin no rashes or lesions noted and no wounds MDM MDM MDM Narrative Medical decision making narrative: Interventions / MDM: Differential diagnosis: Atrial flutter, tachycardia Diagnosis considered but do not suspect: Pulmonary embolism however therapeutic on his INR. My EKG interpretation: Sinus rate of 112, no ST or T wave changes. Imaging independently reviewed and interpreted by myself: N/A External documents reviewed: N/A Test considered but not ordered:N/A ED course: Patient with pneumonia, tachycardic arrival normal heart rate 60s and 70s per patient. He had no recent vomiting diarrhea. EKG is sinus tachycardia 112, however possibility of's very slow a flutter especially on calcium channel john. Will check labs, will give fluids and will reevaluate. 1705: After fluids heart rate in the low 100s, upon standing 113's. INR 2.8 therapeutic. Creatinine 1.2 stable from previous. Potassium 4.1. White count 14 stable from 6 days ago when he was discharged with pneumonia. Will try IV Cardizem and will reevaluate with his tachycardia. Heart rate in the 90s on reevaluation. Able to ambulate with no return of symptoms. Blood pressure stable. Discussed concerns for flutter as his heart rate is normally 60s and 70s. Will increase his Cardizem to 240 mg twice a day. Discussed with him heart rate back in the 60s at home, up to go back to his 180 mg. He was given a dose in the ED. Prescription sent to his pharmacy. 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 All questions were answered. Re-evaluation: stable Disposition discussed with patient/family/significant other: Patient Case discussed with consulting clinician: N/A This note was generated with xMattersation software. It may contain incorrect words, spelling, and punctuation that were not noted in checking the note before signing. Lab Data Attestation: I reviewed the patient's lab results. Labs: Laboratory Results - last 24 hr 04/15/24 16:33 WBC 14.1 H RBC 5.03 Hgb 15.1 Hct 45.7 MCV 90.9 MCH 30.0 MCHC 33.0 RDW Std Deviation 47.8 H RDW Coeff of Vivek 14.5 Plt Count 400 MPV 9.3 Immature Gran % (Auto) 2.600 H Neut % (Auto) 79.0 H Lymph % (Auto) 10.4 L Towner % (Auto) 6.3 Eos % (Auto) 1.1 Baso % (Auto) 0.6 Absolute Neuts (auto) 11.1 H Absolute Lymphs (auto) 1.46 Nucleated RBC % 0 PT 28.9 H INR 2.8 Sodium 134 L Potassium 4.1 Chloride 99 Carbon Dioxide 28.0 Anion Gap 7 BUN 10 Creatinine 1.22 Estim Creat Clear Calc 57.95 Est GFR (MDRD) Af Amer 76 Est GFR (MDRD) Non-Af 63 BUN/Creatinine Ratio 8.2 L Glucose 107 H Calcium 9.3 Discharge Plan Triage Chief Complaint: Palpitations ED Provider: Malcolm Lee Dx/Rx/DC Orders Clinical Impression: Atrial flutter, Chronic anticoagulation, Palpitations Instructions: ED Atrial Flutter Prescriptions: New diltiazem HCl [Cardizem CD] 240 mg capsule,extended release 24hr 240 mg PO BID Qty: 60 0RF No Action omega-3 fatty acids 1,000 mg capsule 1,000 mg PO DAILY furosemide 40 mg tablet 40 mg PO DAILY omeprazole 20 mg capsule,delayed release(DR/EC) 20 mg PO DAILY pantoprazole 40 mg tablet,delayed release (DR/EC) 40 mg PO BID allopurinol 300 mg tablet 300 mg PO DAILY doxycycline hyclate 100 mg capsule 100 mg PO BID Patient Comments: START DATE: 04/06/2024 END DATE: 04/12/2024 Rx Instructions: TAKE ONE CAPSULE BY MOUTH TWICE DAILY FOR 7 DAYS. prednisone 20 mg tablet 60 mg PO DAILY Patient Comments: START DATE: 04/06/2024 END DATE: 04/10/2024 Rx Instructions: TAKE THREE TABLETS (60MG) BY MOUTH ONCE DAILY FOR FIVE DAYS. cholecalciferol (vitamin D3) 50 mcg (2,000 unit) capsule 50 mcg PO DAILY guaifenesin [Mucinex] 600 mg Tablet Extended Release 12hr 600 mg PO BID Qty: 10 0RF amoxicillin-pot clavulanate 875-125 mg tablet 1 tab PO BID Qty: 6 0RF warfarin 2 mg tablet 3 mg PO DAILY Qty: 30 0RF Protocol: Dose Management Condition: Sunday Dose/Route: 0 mg Instruction: 0 tablets Condition: Sunday Dose/Route: 3 mg Instruction: 1.5 x 2 mg tablets Condition: Sunday Dose/Route: 3 mg Instruction: 1.5 x 2 mg tablets Condition: Sunday Dose/Route: 0 mg Instruction: 0 tablets Condition: Dose/Route: 0 mg Instruction: 0 tablets Condition: Sunday Dose/Route: 0 mg Instruction: 0 tablets Condition: Sunday Dose/Route: 0 mg Instruction: 0 tablets Protocol Text: Adjustment Start Date: 04/10/24 INR Value: 5.3 INR Date: 04/09/24 Recheck Date: 04/17/24 diltiazem HCl 180 mg capsule,extended release 24hr 180 mg PO BID Qty: 180 3RF dofetilide 500 mcg capsule 500 mcg PO BID Qty: 180 3RF potassium chloride 10 mEq tablet,ER particles/crystals 10 meq PO DAILY Qty: 90 3RF Prolia 60 mg/mL syringe 60 mg subcut [id number] Qty: 1 1RF albuterol sulfate 90 mcg/actuation HFA aerosol inhaler 2 puff inhalation Q6H PRN (Reason: shortness of breath or wheezing) Qty: 8.5 6RF Breztri Aerosphere 160-9-4.8 mcg/actuation HFA aerosol inhaler 2 inh inhalation BID Qty: 10.7 6RF Primary Care Provider: Adriel Pike Referrals: Adriel Pike MD [Primary Care Provider] - Tray Santiago MD [Med Staff - Active Staff] - 1 Week Activity Restrictions/Additional Instructions: There are findings concerns for recurrent atrial flutter. Your INR is 2.8. Use diltiazem 240 mg twice a day instead of your 180 mg. Your heart rate is back to the 60s and 70s, go back to the 180 mg twice a day. Follow-up with Dr. Santiago. If your symptoms worsen, return to the ED for reevaluation. Print Language: Bahraini Disposition Disposition: Home, Self Care Discharge Date/Time: 04/15/24 19:29
[2024-04-15 16:17] VITALS: BP 114/86; PULSE 110; RESP 16; O2SAT 97
[2024-04-15] MEDS: 0.9% Normal Saline (500mL Bag) 500 ML 1000 ML IV (16:31)
[2024-04-15 16:45] LABS: Absolute Lymphocyte Count 1.46 X10^3/uL (0.83-4.51); Absolute Neutrophil Count 11.1 X10^3/uL (2.0-7.7); Basophil# 0.08 X10^3/uL; Basophil% 0.6 % (0-1); Eosinophil# 0.15 X10^3/uL; Eosinophils% 1.1 % (0-5); Hematocrit 45.7 % (40-54); Hemoglobin 15.1 g/dL (13.0-16.5); Lymphocyte # 1.46 X10^3/ul (0.83-4.51); Lymphocyte % 10.4 % (19-41); Mean Corpuscular Volume 90.9 fL (80-94); Mean Platelet Vol. 9.3 fl (6.2-12.0); Monocyte# 0.89 X10^3/uL; Monocyte% 6.3 % (0-10); NRBC Flagged by Analyzer 0 % (0-5); Neutrophil # 11.11 X10^3/uL (2.7-7.7); Platelet Count 400 K/mm3 (150-450); RBC Distribution Width CV 14.5 % (11.6-14.6); RBC Distribution Width SD 47.8 fl (35.1-43.9); Red Blood Count 5.03 M/mm3 (4.6-6.2); White Blood Count 14.1 K/mm3 (4.4-11.0)
[2024-04-15 16:57] LABS: International Normalized Ratio 2.8; Prothrombin Time (Protime)PT. 28.9 SECONDS (11.7-14.9)
[2024-04-15 17:00] VITALS: BP 101/75; PULSE 108; RESP 17; O2SAT 97
[2024-04-15 17:02] LABS: Anion Gap 7 (5-15); BUN 10 mg/dL (7-18); BUN/Creat Ratio 8.2 RATIO (10-20); Calcium,Total 9.3 mg/dL (8.5-10.1); Chloride 99 mmol/L (98-107); Creatinine, Serum 1.22 mg/dL (0.70-1.30); EST Glomerular Filtration Rate 63 mL/min (>60); Est Glom Filt Rate - Afr Amer 76 mL/min (>60); Estimated Creatinine Clearance 57.95 ml/min; Glucose 107 mg/dL (74-106); Potassium 4.1 mmol/L (3.5-5.1); Sodium Level 134 mmol/L (136-145)
[2024-04-15] MEDS: dilTIAZem 25 MG/5 ML Vial 10 MG IV BOLUS (17:10)
[2024-04-15 18:00] VITALS: BP 113/90; PULSE 101; RESP 12; O2SAT 98
[2024-04-15 19:00] VITALS: BP 121/93; PULSE 108; RESP 16; O2SAT 98
[2024-04-15 19:11] VITALS: BP 121/93; PULSE 100; RESP 16; TEMP 36.6; O2SAT 98
[2024-04-15] MEDS: dilTIAZem CD 240 MG Capsule PO (19:16)
== END 2024-04-15 19:29 | disposition home or self-care (01) ==
PROVIDERS: Emergency Provider Emergency Medicine; PCP Family Medicine; Visit Provider Emergency Medicine
DX: I48.92 Unspecified atrial flutter (principal); J43.9 Emphysema, unspecified; I48.0 Paroxysmal atrial fibrillation; E11.9 Type 2 diabetes mellitus without complications; I10 Essential (primary) hypertension; E78.5 Hyperlipidemia, unspecified; K21.9 Gastro-esophageal reflux disease without esophagitis; Z79.01 Long term (current) use of anticoagulants; Z79.899 Other long term (current) drug therapy; Z87.891 Personal history of nicotine dependence; Z96.642 Presence of left artificial hip joint
CPT/HCPCS: 80048; 85025; 85610; 93005; 96361; 96374; 99284; J7030; A4216

== ENCOUNTER 2024-04-20 17:48 | Inpatient (IN) | payer MEDICARE, MEDICAID, SELFPAY ==
[2024-04-20] VITALS (14 sets, daily range): BP systolic 100–125; BP diastolic 62–77; PULSE 80–107; RESP 14–26; TEMP 36–37.1; O2SAT 88–95; BMI 25.3
--- NOTE | 2024-04-20 18:17 | EKG12_ITS ---
Test Reason : CP Blood Pressure : / mmHG Vent. Rate : 103 BPM Atrial Rate : 103 BPM P-R Int : 248 ms QRS Dur : 082 ms QT Int : 362 ms P-R-T Axes : 101 077 085 degrees QTc Int : 474 ms Sinus tachycardia with 1st degree A-V block CAN NOT RULE OUT Septal infarct (cited on or before 09-AUG-2014) Abnormal ECG Confirmed by Peter Barba ([id number]), editor farm journal JOSE PEACE ([id number]) on 04/22/2024 9:32:26 AM Referred By: Confirmed By:Peter Barba
--- NOTE | 2024-04-20 18:24 | EDS_ITS ---
HPI History of Present Illness Chief Complaint: Shortness of Breath Detail of Chief Complaint: Shortness of breath. Informant: patient Onset/Context/Timing Onset: Today Context: gradual Current Severity: Mild Maximum Severity: Mild Worsened by: Coughing Relieved by: Oxygen Associated Symptoms cough Chest Pain: Positive for None Narrative Narrative: 68-year-old male extensive past medical history of COPD not on home O2, DVT, A- fib on Coumadin, diabetes. Uses inhaler at home. Recently was admitted for pneumonia. Said last night he broke out in a sweat throughout the night sweat there was close. Today his pulse ox was 82% at home. He denies any chest pain. Denies any leg swelling. Denies a history of CHF. PE Risk Factors: Positive for Prior DVT or PE and Recent immobilization; Negative for Cancer, OCP + Smoking + > 35, Recent surgery or Recent travel Prior similar symptoms: Yes Recent Illness/Hospitalization: Yes [facility] Medical History History of echocardiogram DVT (deep venous thrombosis) Injury of back History of hiatal hernia Shortness of breath on exertion Former smoker Leg cramps Cardiology follow-up encounter Pulmonary emphysema Hyperlipidemia Colon polyps Barretts esophagus Scabies Atrial fibrillation and flutter Osteoporosis Essential hypertension History of DVT (deep vein thrombosis) Paroxysmal atrial tachycardia Paroxysmal atrial fibrillation GERD (gastroesophageal reflux disease) Gout Type 2 diabetes mellitus Hypertension Tachycardia shelter (current) use of anticoagulants Near syncope Bradycardia Tobacco dependence Afib Home Medications ?Medication ?Instructions ?Recorded ?Last Taken ?Type diltiazem HCl 180 mg 180 mg PO BID blood pressure #180 09/03/23 04/07/24 Rx capsule,extended release 24 hr caps dofetilide 500 mcg capsule 500 mcg PO BID heart #180 caps 09/26/23 04/07/24 Rx potassium chloride 10 mEq 10 meq PO DAILY supplement #90 09/26/23 04/07/24 Rx tablet,extended release(part/cryst) tabs denosumab 60 mg/mL subcutaneous 60 mg subcut [id number] osteoperosis 11/29/23 Unknown Rx syringe (Prolia) #1 mL albuterol sulfate 90 mcg/actuation 2 puff inhalation Q6H PRN 01/28/24 04/07/24 Rx aerosol inhaler shortness of breath or wheezing #8.5 grams furosemide 40 mg tablet 40 mg PO DAILY edema 02/28/24 04/07/24 History omega-3 fatty acids 1,000 mg 1,000 mg PO DAILY supplement 02/28/24 04/07/24 History capsule omeprazole 20 mg capsule,delayed 20 mg PO DAILY acid reflux 02/28/24 04/07/24 History release budesonide 160 mcg-glycopyr 9 2 inh inhalation BID shortness of 03/12/24 04/07/24 Rx mcg-formot 4.8 mcg/actuation HFA breath #10.7 grams inhaler (Breztri Aerosphere) allopurinol 300 mg tablet 300 mg PO DAILY 04/07/24 04/07/24 History cholecalciferol (vitamin D3) 50 50 mcg PO DAILY supplement 04/07/24 04/07/24 History mcg (2,000 unit) capsule doxycycline hyclate 100 mg capsule 100 mg PO BID antibiotic 04/07/24 04/07/24 History pantoprazole 40 mg tablet,delayed 40 mg PO BID gerd 04/07/24 04/07/24 History release prednisone 20 mg tablet 60 mg PO DAILY gout flare 04/07/24 04/07/24 History amoxicillin 875 mg-potassium 1 tab PO BID #6 tabs 04/09/24 Unknown Rx clavulanate 125 mg tablet guaifenesin 600 mg tablet, 600 mg PO BID #10 tabs 04/09/24 Unknown Rx extended release 12 hr (Mucinex) warfarin 2 mg tablet 3 mg PO DAILY blood thinner #30 04/09/24 04/06/24 Rx tabs diltiazem HCl 240 mg 240 mg PO BID #60 caps 04/15/24 Unknown Rx capsule,extended release 24 hr (Cardizem CD) Allergy/AdvReac Type Severity Reaction Status Date / Time secobarbital sodium (From Allergy Unknown Verified 04/20/24 17:51 [place]) venom-honey bee (bee venom Allergy Anaphylaxis Verified 04/20/24 17:51 (honey bee)) Family History Mother Diabetes Hypertension Myocardial infarction Surgical History History of esophagogastroduodenoscopy (EGD) History of hip replacement Status post peripheral artery angioplasty History of left hip replacement History of cardiac radiofrequency ablation (~04/2008) Social History household members: none Smoking Status: Former smoker Tobacco: How many years used: 50 how long ago did patient quit smokin alcohol intake: current alcohol intake frequency: a few times a month Alcohol type: beer substance use type: does not use caffeine: No ROS ROS ED ROS Narrative Shortness of breath. Cough. Night sweats. Review of Systems ROS Unobtainable: Denies due to encephalopathy Constitutional Constitutional ED: Denies chills or fever(s) Eyes Eyes: Denies blurry vision ENT ENT ED: Denies ear pain Cardiovascular Cardiovascular: Denies chest pain Respiratory/Chest Respiratory/Chest: Reports cough and dyspnea Gastrointestinal Gastrointestinal: Denies abdominal pain Genitourinary Genitourinary ED: Denies dysuria Musculoskeletal Musculoskeletal: Denies arthralgias Integumentary Denies abscess Neurologic Neurologic: Denies headache(s) Psychiatric Psychiatric: Denies anxiety Endocrine Endocrinology: Denies cold intolerance Hematologic/Lymphatic Hematologic/Lymphatic: Reports lymphadenopathy Allergic/Immunologic Allergic/Immunologic ED: Denies mouth swelling, tongue swelling or urticaria EXAM Physical Exam Narrative Exam Narrative: 60-year-old male vital signs are stable pulse ox is 88 to 92% on room air. On 2 L he is in the low to mid 90s. He does not look septic or toxic is no distress. H EENT exam unremarkable. Neck nontender. No JVD. Lungs clear to auscultation bilaterally. No rales, rhonchi or wheezing. Heart regular rhythm no murmur rate about 105. Chest wall nontender. Abdomen soft nontender. Moving all 4 extremities. Calves are nontender without edema or cords. He is awake and alert. No focal motor deficits. Const Vital Signs: 04/20/24 17:49 04/20/24 17:52 04/20/24 17:57 Temperature 96.8 F L Temperature Source Temporal Pulse Rate 107 H 105 H Respiratory Rate 26 H 18 Respiratory Effort Short of Breath Labored Respiratory Pattern Blood Pressure 125/72 H 115/72 Blood Pressure Mean 89 86 Pulse Ox 92 88 Oxygen Delivery Method Room Air Room Air Nasal Cannula Oxygen Flow Rate (L/min) 2 04/20/24 18:26 04/20/24 18:50 04/20/24 18:52 Temperature Temperature Source Pulse Rate 103 H 105 H Respiratory Rate 14 20 H Respiratory Effort Respiratory Pattern Normal Blood Pressure 103/66 Blood Pressure Mean 78 Pulse Ox 90 94 Oxygen Delivery Method Nasal Cannula Nasal Cannula Oxygen Flow Rate (L/min) 2 3 04/20/24 19:00 04/20/24 20:00 Temperature Temperature Source Pulse Rate 103 H 81 Respiratory Rate 18 20 H Respiratory Effort Respiratory Pattern Blood Pressure 108/77 104/62 Blood Pressure Mean 87 76 Pulse Ox 93 94 Oxygen Delivery Method Nasal Cannula Oxygen Flow Rate (L/min) 3 Positive well nourished and well developed; Negative for obese, cachectic, contractures or unkempt General Appearance ED: well developed and NAD; Negative for unkempt, cachectic, contractures or pallor Nutritional Appearance: Negative for cachectic or obese HEENT Reports moist mucous membranes atraumatic; Negative for trauma or tenderness Eyes PERRL and EOMs intact bilaterally General Eye ED: Negative for pale conjunctiva or scleral icterus Neck no lymphadenopathy, supple, no meningeal signs and no JVD General: Negative for tenderness Lymph Lymphatic: Negative for other Chest Wall Chest: Negative for other Resp normal respiratory effort and clear to auscultation bilaterally Effort and Inspection: Negative for pain with movement Auscultation: Negative for rales, rhonchi, wheezes or diminished lung sounds Cardio regular rhythm, S1 normal heart sound, S2 normal heart sound and no murmurs; Negative for regular rate Rate: tachycardic GI non-tender, non-distended and no masses Inspection: Negative for other Palpation: soft; Negative for tender, guarding or rebound tenderness present Back/Spine no CVA tenderness and normal to inspection General Back: Negative for CVA tenderness Extremity normal to inspection General Extremety ED: Negative for edema or tenderness General Extremity: Negative for edema Neuro oriented x3 and CN's II-XII intact bilaterally Sensorium / Orientation: alert, oriented to person, oriented to place and oriented to time; Negative for orientation impaired, confused, lethargic or stuporous Speech: speech normal Motor Exam: strength 5/5 throughout Psych mental status grossly normal Appearance: Negative for unkempt Attitude: No agitated and No other Mood & Affect: Negative for depressed, anxious or tearful Thought Process: normal thought process Skin no wounds General Skin Exam: Negative for jaundice or pallor Lesions: no lesions Rashes: no rashes Trauma: Negative for abrasion or laceration MDM MDM MDM Narrative Medical decision making narrative: 68-year-old male hypoxic at home history of COPD recent pneumonia anticoagulated on Coumadin. Cardiac workup. Rule out pneumonia versus COVID versus CHF versus exacerbation of COPD. Currently he is not wheezing. He will be given a DuoNeb aerosol. Repeat exam at 9:11 PM patient doing well. Resting comfortably on oxygen. Patient be admitted for exacerbation COPD rule out pneumonia the hospitalist on page. History & Record Review Discussion w/independent historian: Patient Additional record(s) reviewed:: Prior inpatient record, Prior outpatient record, Prior ED visit and Prior labs Lab Data Attestation: I reviewed the patient's lab results. Lab results narrative: CBC shows white count of 14.7. H&H 11.3 and 33. Platelets 223. Patient is on Coumadin and his PTT is 50 and his INR is 5.6. Electrolytes show sodium 133. Potassium of 2.9. Gap 8. Normal BUN 10 creatinine 1.1. Glucose 162. Troponin 5. BNP 75. COVID, flu and RSV negative. Labs: Laboratory Results - last 24 hr 04/20/24 18:22 WBC 14.7 H RBC 3.70 L Hgb 11.3 L Hct 33.3 L MCV 90.0 MCH 30.5 MCHC 33.9 RDW Std Deviation 47.9 H RDW Coeff of Vivek 14.6 Plt Count 223 MPV 10.0 Immature Gran % (Auto) 0.700 Neut % (Auto) 86.2 H Lymph % (Auto) 5.2 L [place] % (Auto) 7.6 Eos % (Auto) 0.1 Baso % (Auto) 0.2 Absolute Neuts (auto) 12.7 H Absolute Lymphs (auto) 0.76 L Nucleated RBC % 0 PT 50.3 H INR 5.6 H* Sodium 133 L Potassium 2.9 L Chloride 97 L Carbon Dioxide 28.0 Anion Gap 8 BUN 10 Creatinine 1.18 Est GFR (MDRD) Af Amer 79 Est GFR (MDRD) Non-Af 65 BUN/Creatinine Ratio 8.5 L Glucose 162 H Calcium 8.6 Troponin I High Sens 5 B-Natriuretic Peptide 75.4 Radiography Chest X-Ray - ED: 2 View, Read by ED Physician, Normal, Heart, Mediastinum, Bony Structures, Chronic Changes, Left Infiltrate and - (Chronic changes consistent with prior chest x-ray cannot rule out a left-sided pneumonia.) Diagnostic Testing: Clinical Impression(s) from Imaging Studies Chest X-Ray 04/20/24 18:55 IMPRESSION: No change from 04/07/2024. Electronically Signed: Francisco Shane MD at 19:27 EDT , Chest x-ray 2 views AP lateral interpreted both by myself and radiologist. Shows chronic changes consistent with COPD. There is densities on the left consistent with the prior chest x-ray from April 07. There is no significant change. Cannot rule out left-sided infiltrate versus chronic changes. Rhythm Strip Rhythm Strip: Tachycardia Rate: 103 Ectopy: None EKG Initial EKG: Attestation: I personally reviewed and interpreted this EKG as follows: Comments: Tachycardia either sinus tach or atrial flutter. Discharge Plan Triage Chief Complaint: Shortness of Breath ED Provider: Renzo Gibson Dx/Rx/DC Orders Clinical Impression: COPD with acute exacerbation, Chronic anticoagulation, Type 2 diabetes mellitus, Hypoxia, History of pneumonia, Leukocytosis, History of atrial fibrillation Prescriptions: No Action omega-3 fatty acids 1,000 mg capsule 1,000 mg PO DAILY furosemide 40 mg tablet 40 mg PO DAILY omeprazole 20 mg capsule,delayed release(DR/EC) 20 mg PO DAILY pantoprazole 40 mg tablet,delayed release (DR/EC) 40 mg PO BID allopurinol 300 mg tablet 300 mg PO DAILY doxycycline hyclate 100 mg capsule 100 mg PO BID Patient Comments: START DATE: 04/06/2024 END DATE: 04/12/2024 Rx Instructions: TAKE ONE CAPSULE BY MOUTH TWICE DAILY FOR 7 DAYS. prednisone 20 mg tablet 60 mg PO DAILY Patient Comments: START DATE: 04/06/2024 END DATE: 04/10/2024 Rx Instructions: TAKE THREE TABLETS (60MG) BY MOUTH ONCE DAILY FOR FIVE DAYS. cholecalciferol (vitamin D3) 50 mcg (2,000 unit) capsule 50 mcg PO DAILY guaifenesin [Mucinex] 600 mg Tablet Extended Release 12hr 600 mg PO BID Qty: 10 0RF amoxicillin-pot clavulanate 875-125 mg tablet 1 tab PO BID Qty: 6 0RF warfarin 2 mg tablet 3 mg PO DAILY Qty: 30 0RF Protocol: Dose Management Condition: Sunday Dose/Route: 0 mg Instruction: 0 tablets Condition: Sunday Dose/Route: 3 mg Instruction: 1.5 x 2 mg tablets Condition: Sunday Dose/Route: 3 mg Instruction: 1.5 x 2 mg tablets Condition: Sunday Dose/Route: 0 mg Instruction: 0 tablets Condition: Dose/Route: 0 mg Instruction: 0 tablets Condition: Sunday Dose/Route: 0 mg Instruction: 0 tablets Condition: Sunday Dose/Route: 0 mg Instruction: 0 tablets Protocol Text: Adjustment Start Date: 04/10/24 INR Value: 5.3 INR Date: 04/09/24 Recheck Date: 04/17/24 diltiazem HCl [Cardizem CD] 240 mg capsule,extended release 24hr 240 mg PO BID Qty: 60 0RF diltiazem HCl 180 mg capsule,extended release 24hr 180 mg PO BID Qty: 180 3RF dofetilide 500 mcg capsule 500 mcg PO BID Qty: 180 3RF potassium chloride 10 mEq tablet,ER particles/crystals 10 meq PO DAILY Qty: 90 3RF Prolia 60 mg/mL syringe 60 mg subcut [id number] Qty: 1 1RF albuterol sulfate 90 mcg/actuation HFA aerosol inhaler 2 puff inhalation Q6H PRN (Reason: shortness of breath or wheezing) Qty: 8.5 6RF Breztri Aerosphere 160-9-4.8 mcg/actuation HFA aerosol inhaler 2 inh inhalation BID Qty: 10.7 6RF Primary Care Provider: Adriel Pike Referrals: Adriel Pike MD [Primary Care Provider] - Print Language: Spanish Disposition Disposition: Acute Care Hospital [facility]
[2024-04-20 18:31] LABS: Absolute Lymphocyte Count 0.76 X10^3/uL (0.83-4.51); Absolute Neutrophil Count 12.7 X10^3/uL (2.0-7.7); Basophil# 0.03 X10^3/uL; Basophil% 0.2 % (0-1); Eosinophil# 0.01 X10^3/uL; Eosinophils% 0.1 % (0-5); Hematocrit 33.3 % (40-54); Hemoglobin 11.3 g/dL (13.0-16.5); Lymphocyte # 0.76 X10^3/ul (0.83-4.51); Lymphocyte % 5.2 % (19-41); Mean Corp Hgb Conc 33.9 g/dL (32-36); Mean Corpuscular Hgb 30.5 pg (27.0-32.0); Monocyte# 1.12 X10^3/uL; Monocyte% 7.6 % (0-10); NRBC Flagged by Analyzer 0 % (0-5); Neutrophil # 12.65 X10^3/uL (2.7-7.7); Neutrophil % 86.2 % (47-70); Platelet Count 223 K/mm3 (150-450); RBC Distribution Width CV 14.6 % (11.6-14.6); RBC Distribution Width SD 47.9 fl (35.1-43.9); White Blood Count 14.7 K/mm3 (4.4-11.0)
[2024-04-20 18:40] LABS: Prothrombin Time (Protime)PT. 50.3 SECONDS (11.7-14.9)
[2024-04-20 18:48] LABS: Anion Gap 8 (5-15); BUN 10 mg/dL (7-18); BUN/Creat Ratio 8.5 RATIO (10-20); Calcium,Total 8.6 mg/dL (8.5-10.1); Chloride 97 mmol/L (98-107); Creatinine, Serum 1.18 mg/dL (0.70-1.30); EST Glomerular Filtration Rate 65 mL/min (>60); Est Glom Filt Rate - Afr Amer 79 mL/min (>60); Glucose 162 mg/dL (74-106); International Normalized Ratio 5.6; Potassium 2.9 mmol/L (3.5-5.1); Sodium Level 133 mmol/L (136-145); Troponin-I HS 5 pg/mL (3.0-78.0)
[2024-04-20] MEDS: Ipratropium/Albuterol Sulfate 3 ML AMPUL.NEB INHALATION (18:48)
[2024-04-20 18:52] LABS: BNP,B-Type NATRIURETIC PEPTIDE 75.4 pg/mL (0-100)
--- NOTE | 2024-04-20 18:55 | RAD_ITS ---
STUDY: X-RAY CHEST REASON FOR EXAM: Male, 68 years old. chest pain TECHNIQUE: PA and lateral views of the chest. COMPARISON: 04/07/2024 FINDINGS: There are interstitial fibrotic changes of the lungs. There is no demonstrated pleural abnormality. Normal size heart. Normal mediastinum and pam. Normal visualized pulmonary arteries. Normal visualized aortic arch and descending thoracic aorta. No change in severe compression fracture the mid thoracic spine with increased kyphosis. Normal visualized ribs, clavicles, and shoulders. There is no demonstrated abnormality of the visualized soft tissue structures of the upper abdomen. RAD/Chest PA and Lateral IMPRESSION: No change from 04/07/2024. Electronically Signed: Francisco Shane MD at 19:27 EDT ,
[2024-04-20] MEDS: MethylPREDNISolone 125 MG/2 ML Vial IV (21:21)
--- NOTE | 2024-04-20 21:30 | HP.PCM.HOS_ITS ---
HPI - General General Date of Admission: 04/20/24 Date of Service: 04/20/24 Chief Complaint: Dyspnea, cough, wheezing, hypoxia. HPI Narrative The patient is a 68 y/o M w/ PMHx: PAF/Flutter status post RFA, COPD, Former tobacco use, Hx VTE (DVT), HTN, HLD, GERD w/ Vergara's esophagus, Gout, Diabetes mellitus type II, PAD status post peripheral artery angioplasty, recent 04/09/2024 discharge following evaluation and treatment of pneumonia treated with Rocephin and doxycycline transition to completion regimen of doxycycline and Augmentin therapy with concurrently noted hemoptysis at that time with CT demonstrating a left upper lobe infiltrate as well as additionally a 3.9 cm density in the right upper lobe returning to the ED on 04/15/24 with palpitations at that time with administration of IV fluids and clinical improvement with increase of his Cardizem to 240 mg p.o. twice daily with plan follow-up outpatient with cardiology who now re-presents to the [facility] ED on 04/20/24 with history of worsening dyspnea with hypoxia recently treated for pneumonia noted to decrease to 82% at home on room air prompting EMS call. He notes that the evening prior he became very diaphoretic as well. He denies any specific fever or chills but notes ongoing coughing, occasional productive sputum and dyspnea worse with exertion as well as lymphadenopathy. Workup in the ED included T96.8 Temporally, heart rate 107, BP 125/72, respiratory rate 26, 92% on room air eventually dropping down to 88% improving with most recent vital signs heart rate 103, BP 108/77, respiratory rate 18, 93% on 3 L nasal cannula, CBC with WC 14.7, 11.3, MCV 90, platelet 223 with left shift and lymphopenia, coags with INR elevated 5.6, BMP with sodium 133, potassium 2.9, chloride 97, glucose 162, troponin 5, BNP 75.4, chest x-ray with no acute cardiopulmonary findings with interstitial fibrotic changes of the lungs, rapid SARS COVID/influenza/RSV PCR negative, EKG with tachycardia possibly sinus tach versus atrial flutter, uncertain. In the ED patient ministered DuoNeb therapy as well as Solu-Medrol 125 mg IV x 1. [facility] Medical History History of echocardiogram DVT (deep venous thrombosis) Injury of back History of hiatal hernia Shortness of breath on exertion Former smoker Leg cramps Cardiology follow-up encounter Pulmonary emphysema Hyperlipidemia Colon polyps Barretts esophagus Scabies Atrial fibrillation and flutter Osteoporosis Essential hypertension History of DVT (deep vein thrombosis) Paroxysmal atrial tachycardia Paroxysmal atrial fibrillation GERD (gastroesophageal reflux disease) Gout Type 2 diabetes mellitus Hypertension Tachycardia [facility] (current) use of anticoagulants Near syncope Bradycardia Tobacco dependence Afib Home Medications ?Medication ?Instructions ?Recorded ?Last Taken ?Type dofetilide 500 mcg capsule 500 mcg PO BID heart #180 caps 09/26/23 04/07/24 Rx potassium chloride 10 mEq 10 meq PO DAILY supplement #90 09/26/23 04/07/24 Rx tablet,extended release(part/cryst) tabs denosumab 60 mg/mL subcutaneous 60 mg subcut [id number] osteoperosis 11/29/23 Unknown Rx syringe (Prolia) #1 mL albuterol sulfate 90 mcg/actuation 2 puff inhalation Q6H PRN 01/28/24 04/07/24 Rx aerosol inhaler shortness of breath or wheezing #8.5 grams furosemide 40 mg tablet 40 mg PO DAILY edema 02/28/24 04/07/24 History omega-3 fatty acids 1,000 mg 1,000 mg PO DAILY supplement 02/28/24 04/07/24 History capsule omeprazole 20 mg capsule,delayed 20 mg PO DAILY acid reflux 02/28/24 04/07/24 History release budesonide 160 mcg-glycopyr 9 2 inh inhalation BID shortness of 03/12/24 04/07/24 Rx mcg-formot 4.8 mcg/actuation HFA breath #10.7 grams inhaler (Breztri Aerosphere) allopurinol 300 mg tablet 300 mg PO DAILY 04/07/24 04/07/24 History cholecalciferol (vitamin D3) 50 50 mcg PO DAILY supplement 04/07/24 04/07/24 History mcg (2,000 unit) capsule pantoprazole 40 mg tablet,delayed 40 mg PO BID gerd 04/07/24 04/07/24 History release guaifenesin 600 mg tablet, 600 mg PO BID #10 tabs 04/09/24 Unknown Rx extended release 12 hr (Mucinex) warfarin 2 mg tablet 3 mg PO DAILY blood thinner #30 04/09/24 04/06/24 Rx tabs diltiazem HCl 240 mg 240 mg PO BID #60 caps 04/15/24 Unknown Rx capsule,extended release 24 hr (Cardizem CD) Allergy/AdvReac Type Severity Reaction Status Date / Time secobarbital sodium (From Allergy Unknown Verified 04/20/24 17:51 [place]) venom-honey bee (bee venom Allergy Anaphylaxis Verified 04/20/24 17:51 (honey bee)) Family History (Updated 04/20/24 @ 23:[address] Glory Peace MD) Mother Diabetes Hypertension Myocardial infarction CAD (coronary artery disease) Father Hypertension Heart disease Diabetes Myocardial infarction CAD (coronary artery disease) Surgical History History of esophagogastroduodenoscopy (EGD) History of hip replacement Status post peripheral artery angioplasty History of left hip replacement History of cardiac radiofrequency ablation (~04/2008) Social History (Updated 04/20/24 @ 23:[address] Glory Peace MD) household members: other details: His mother lives with him. Smoking Status: Former smoker Tobacco: How many years used: 50 how long ago did patient quit smokin alcohol intake: current alcohol intake frequency: a few times a month Alcohol type: beer substance use type: does not use caffeine: No ROS ROS Narrative Admission Review of Systems: CONSTITUTIONAL: No weight loss, fever, chills, + weakness or fatigue. HEENT: Eyes: No visual loss, blurred vision, double vision or yellow sclerae. Ears, Nose, Throat: No hearing loss, sneezing, congestion, runny nose or sore throat. SKIN: No rash or itching, lesions, wounds. CARDIOVASCULAR: No chest pain, chest pressure or chest discomfort, palpitations, edema, orthopnea, syncopal events. RESPIRATORY: + Dyspnea, worse with exertion, occasional productive cough, wheezing, previous hemoptysis with prior history of pneumonia. GASTROINTESTINAL: + Decreased appetite. No nausea, vomiting or diarrhea, abdominal pain, melena, BRBPR. GENITOURINARY: No dysuria, frequency, urgency or retention. NEUROLOGICAL: No headache, dizziness, syncope, paralysis, ataxia, numbness or tingling in the extremities, focal weakness, change in bowel or bladder control, seizure. MUSCULOSKELETAL: + muscle, back pain, joint pain or stiffness. HEMATOLOGIC: + Chronic anemia, easy bleeding/bruising. LYMPHATICS: No enlarged nodes. No history of splenectomy. PSYCHIATRIC: No history of depression or anxiety. ENDOCRINOLOGIC: No reports of sweating, cold or heat intolerance. No polyuria or polydipsia. ALLERGIES: + History of anaphylaxis. Vital Signs Vital Signs Vital Signs: 04/20/24 17:49 04/20/24 17:52 04/20/24 17:57 Temperature 96.8 F L Temperature Source Temporal Pulse Rate 107 H 105 H Respiratory Rate 26 H 18 Respiratory Effort Short of Breath Labored Respiratory Pattern Blood Pressure 125/72 H 115/72 Blood Pressure Mean 89 86 Pulse Ox 92 88 Oxygen Delivery Method Room Air Room Air Nasal Cannula Oxygen Flow Rate (L/min) 2 04/20/24 18:26 04/20/24 18:50 04/20/24 18:52 Temperature Temperature Source Pulse Rate 103 H 105 H Respiratory Rate 14 20 H Respiratory Effort Respiratory Pattern Normal Blood Pressure 103/66 Blood Pressure Mean 78 Pulse Ox 90 94 Oxygen Delivery Method Nasal Cannula Nasal Cannula Oxygen Flow Rate (L/min) 2 3 04/20/24 19:00 04/20/24 20:00 04/20/24 21:00 Temperature Temperature Source Pulse Rate 103 H 81 83 Respiratory Rate 18 20 H 22 H Respiratory Effort Respiratory Pattern Blood Pressure 108/77 104/62 103/69 Blood Pressure Mean 87 76 80 Pulse Ox 93 94 89 Oxygen Delivery Method Nasal Cannula Room Air Oxygen Flow Rate (L/min) 3 04/20/24 21:21 04/20/24 21:22 Temperature 98.1 F Temperature Source Pulse Rate 86 Respiratory Rate 18 Respiratory Effort Respiratory Pattern Blood Pressure 103/69 Blood Pressure Mean 80 Pulse Ox 90 90 Oxygen Delivery Method Nasal Cannula Oxygen Flow Rate (L/min) 3 Physical Exam Narrative Physical Examination: General: Awake, alert, oriented x 3 and cooperative, seated upright in the ED bed, notes feeling improved since initial ED arrival, notes breathing is improved. Skin: Normal color, normal turgor, no icterus, no cyanosis except occasional stage ecchymoses, occasional abrasion. HEENT: AT/NC, EOMI, PERRLA, mildly dry MM, no carotid bruits or JVD noted. Lungs: Significantly diminished, greater bases, mild increased respiratory rate but no distress, diffuse occasional end expiratory wheeze, no rhonchi. Heart: Mildly tachycardic; no gallop, rub audible. Abdomen: Soft, NTTP, ND, distant normal BS, no appreciated HSM. Extremities: No cyanosis, no clubbing, no marked peripheral edema noted. Neurological: Patient awake, alert, oriented as noted, cognitive function intact; pupils equally reactive to light and accommodation, cranial nerves grossly normal, moving all 4 extremities, no focal deficits, strength improving, moderately globally decreased Psychiatric: Affect appears fatigued, no acute evidence of depressive or anxiety feelings. Results Lab / Micro Data 04/20/24 18:22 04/20/24 18:22 Labs: Laboratory Results - last 24 hr 04/20/24 18:22: WBC 14.7 H, RBC 3.70 L, Hgb 11.3 L, Hct 33.3 L, MCV 90.0, MCH 30.5, MCHC 33.9, RDW Std Deviation 47.9 H, RDW Coeff of Vivek 14.6, Plt Count 223, MPV 10.0, Immature Gran % (Auto) 0.700, Neut % (Auto) 86.2 H, Lymph % (Auto) 5.2 L, [place] % (Auto) 7.6, Eos % (Auto) 0.1, Baso % (Auto) 0.2, Absolute Neuts (auto) 12.7 H, Absolute Lymphs (auto) 0.76 L, Nucleated RBC % 0, PT 50.3 H, INR 5.6 H*, Sodium 133 L, Potassium 2.9 L, Chloride 97 L, Carbon Dioxide 28.0, Anion Gap 8, BUN 10, Creatinine 1.18, Est GFR (MDRD) Af Amer 79, Est GFR (MDRD) Non-Af 65, B UN/Creatinine Ratio 8.5 L, Glucose 162 H, Calcium 8.6, Troponin I High Sens 5, B-Natriuretic Peptide 75.4 Micro: Microbiology 04/20/24 18:33 Mucosa - Nose SARS-CoV-2, Influenza & RSV (PCR) - Final Rhythm Strip Rhythm Strip: Tachycardia Rate: 103 Ectopy: None Imaging Radiology Impression Chest X-Ray 04/20/24 18:55 IMPRESSION: No change from 04/07/2024. Electronically Signed: Francisco Shane MD at 19:27 EDT , Assessment & Plan Assessment/Plan (1) COPD with acute exacerbation: PLAN: Plan The patient is a 68 y/o M w/ PMHx: PAF/Flutter status post RFA, COPD, Former tobacco use, Hx VTE (DVT), HTN, HLD, GERD w/ Vergara's esophagus, Gout, Diabetes mellitus type II, PAD status post peripheral artery angioplasty, recent 04/09/2024 discharge following evaluation and treatment of pneumonia treated with Rocephin and doxycycline transition to completion regimen of doxycycline and Augmentin therapy with concurrently noted hemoptysis at that time with CT demonstrating a left upper lobe infiltrate as well as additionally a 3.9 cm density in the right upper lobe returning to the ED on 04/15/24 with palpitations at that time with administration of IV fluids and clinical improvement with increase of his Cardizem to 240 mg p.o. twice daily with plan follow-up outpatient with cardiology who now re-presents to the [facility] ED on 04/20/24 with history of worsening dyspnea with hypoxia recently treated for pneumonia noted to decrease to 82% at home on room air prompting EMS call. He notes that the evening prior he became very diaphoretic as well. #1. Acute Hypoxia secondary to Acute on Chronic COPD exacerbation: Will admit to [facility], maintain on oxygen with wean as tolerated to room air, continue ATC budesonide, PRN albuterol, IV methylprednisolone, HOB, IS parameters, will obtain sputum Cx, respiratory viral panel, procalcitonin, will hold on immediately abx therapy but low threshold to add if appropriate. #2. New onset normocytic anemia: Admission hemoglobin 11.3, MCV 90, baseline hemoglobin previously primarily 13-14, transiently has been lower but this is remote, will obtain iron panel, ferritin, stool guaiac to be cautious, trend CBC. #3. Supratherapeutic INR on Coumadin: Admission INR 5.6, will hold Coumadin and trend INR with resumption once clinically appropriate. #4. Hyponatremia, mild, possibly acute on chronic component: Admission sodium 133, chloride 97, potentially hypovolemic component, baseline recently has been 133-134 however patient intermittently has been in normal range, potentially secondary to acute presentation, poor intake coupled with Lasix usage, will judiciously hydrate and repeat CMP in AM. If further drops or continues to remain low with concerns we will further investigate. #5. Hypokalemia: Admission K+ 2.9, magnesium level requested, supplementation given, repeat level in AM. #6. PAF/flutter: Status post RFA, will continue patient home diltiazem as well as dofetilide, holding Coumadin given supratherapeutic INR with resumption once clinically appropriate INR level. #7. Hypertension: Continue home regimen including diltiazem, if necessary to hold Lasix otherwise we will continue judiciously, PRN hydralazine. #8. Hyperlipidemia: Per current list does not appear to be on regimen, defer to outpatient. #9. GERD with history of Vergara's esophagus: We will continue patient home PPI. #10. Gout: We will continue patient home allopurinol regimen. #11. Former tobacco usage: Encourage continued Bacot cessation. #12. DVT prophylaxis: As noted supratherapeutic INR, holding Coumadin with INR trending, resume once clinically appropriate. #13. CODE status: Patient does not have healthcare power of erisa attorney or living will in place but does report that if he needed a medical decision made he would want his mother Angi to make those decisions for him. Discussed CODE status at length including difference between FULL code, DNR-CCA and DNR-CC status. Following discussions about the differences in these status, requested Full Code status. Advanced Care Planning Face to Face Time: 16 minutes. Charges/Coding Visit Charges Inpatient E&M: 13158 Init Hosp L3 Procedures Hospitalists Procedures: 12536 Advncd Care Plan 30 Min
[2024-04-20 22:40] LABS: Magnesium 1.7 mg/dL (1.6-2.6)
[2024-04-20 22:47] LABS: Procalcitonin 0.13 ng/mL (0.00-0.09)
[2024-04-20] MEDS: guaiFENesin 600 MG Tablet PO (23:49)
[2024-04-20] MEDS: Potassium Chloride Oral Tablet 20 MEQ 40 MEQ PO (23:49)
[2024-04-20] MEDS: 0.9% Normal Saline (1000mL) 1,000 ML 100 ML IV (23:50)
[2024-04-21] VITALS (16 sets, daily range): BP systolic 101–115; BP diastolic 67–91; PULSE 60–98; RESP 14–19; TEMP 35.9–37; O2SAT 91–100; BMI 25.3
[2024-04-21 05:56] LABS: Absolute Lymphocyte Count 0.48 X10^3/uL (0.83-4.51); Absolute Neutrophil Count 7.8 X10^3/uL (2.0-7.7); Basophil# 0.02 X10^3/uL; Basophil% 0.2 % (0-1); Eosinophil# 0.01 X10^3/uL; Eosinophils% 0.1 % (0-5); Hematocrit 34.5 % (40-54); Hemoglobin 11.4 g/dL (13.0-16.5); Lymphocyte # 0.48 X10^3/ul (0.83-4.51); Lymphocyte % 5.6 % (19-41); Mean Corpuscular Hgb 30.6 pg (27.0-32.0); Mean Corpuscular Volume 92.7 fL (80-94); Mean Platelet Vol. 10.1 fl (6.2-12.0); Monocyte# 0.14 X10^3/uL; Monocyte% 1.6 % (0-10); NRBC Flagged by Analyzer 0 % (0-5); Neutrophil # 7.78 X10^3/uL (2.7-7.7); Neutrophil % 91.4 % (47-70); POSITIVE DIFFERENTIAL YES; Platelet Count 223 K/mm3 (150-450); RBC Distribution Width CV 14.6 % (11.6-14.6); RBC Distribution Width SD 50.2 fl (35.1-43.9); Red Blood Count 3.72 M/mm3 (4.6-6.2); White Blood Count 8.5 K/mm3 (4.4-11.0)
[2024-04-21 07:01] LABS: ALB/GLOB Ratio 0.8 RATIO (0.9-2.4); AST(SGOT) 20 U/L (15-37); Alanine Aminotransfer ALT/SGPT 16 U/L (16-61); Albumin, Serum 3.1 g/dL (3.2-5.0); Alkaline Phosphatase 74 U/L (45-117); Anion Gap 8 (5-15); BUN 10 mg/dL (7-18); BUN/Creat Ratio 10.5 RATIO (10-20); Calcium,Total 8.5 mg/dL (8.5-10.1); Chloride 97 mmol/L (98-107); Creatinine, Serum 0.95 mg/dL (0.70-1.30); EST Glomerular Filtration Rate 84 mL/min (>60); Est Glom Filt Rate - Afr Amer 101 mL/min (>60); Estimated Creatinine Clearance 69.58 ml/min; Ferritin 927 ng/mL (26-388); Glucose 183 mg/dL (74-106); Iron 20 ug/dL (65-175); Iron Binding Capacity,Total 270 ug/dL (250-450); PERCENT IRON SATURATION 7.4 % (15.0-55.0); Potassium 3.8 mmol/L (3.5-5.1); Protein, Total 7.1 g/dL (6.4-8.2); Sodium Level 132 mmol/L (136-145)
[2024-04-21 07:30] LABS: International Normalized Ratio 5.9
[2024-04-21] MEDS: Budesonide Respules 0.5 MG/2 ML AMPUL.NEB. INHALATION ×2 (07:38→19:00)
[2024-04-21] MEDS: Phytonadione (Vit K) 5 MG in 0.9% Normal Saline (50mL Bag) 50 ML 150 MG IV (08:13)
[2024-04-21] MEDS: Pantoprazole Sodium 80 MG in 0.9% Normal Saline (50mL Bag) 15 ML 420 MG IV BOLUS (08:23)
[2024-04-21] MEDS: Pantoprazole Sodium 80 MG in 0.9% Normal Saline (100mL Bag) 80 ML 10 MG CONT INF ×2 (08:30→17:35)
[2024-04-21] MEDS: Dofetilide 250 MCG Capsule 500 MCG PO ×2 (08:36→21:32)
[2024-04-21] MEDS: Allopurinol 300 MG Tablet PO (08:36)
[2024-04-21] MEDS: Furosemide 40 MG Tablet PO (08:37)
[2024-04-21] MEDS: dilTIAZem CD 240 MG Capsule PO ×2 (08:37→21:32)
[2024-04-21] MEDS: guaiFENesin 600 MG Tablet PO ×2 (08:37→21:32)
[2024-04-21] MEDS: Potassium Chloride Oral Tablet 10 MEQ PO (08:41)
--- NOTE | 2024-04-21 10:52 | PN.HOSP_ITS ---
Subjective Subjective Doing well, breathing little bit easier today. Objective Data Objective Data Vital Signs: Vital Signs Temp Pulse Resp BP Pulse Ox O2 Del Method O2 Flow Rate 97.4 F L 74 18 103/67 94 Nasal Cannula 4 04/21/24 08:05 04/21/24 08:05 04/21/24 08:05 04/21/24 08:05 04/21/24 08:05 04/21/24 08:05 04/21/24 08:05 Oxygen Flow Rate (L/min) 4 Oxygen Delivery Method Nasal Cannula Weight: 161 lb 13.109 oz Body Mass Index (BMI) 25.3 Intake & Output: Intake and Output for Last 24 Hours 04/20/24 04/21/24 04/22/24 03:59 03:59 03:59 Intake Total 1085.5 / 1085.5 Balance 1085.5 / 1085.5 Lab / Micro Data 04/21/24 05:35 04/21/24 05:35 Labs: Laboratory Results - last 24 hr 04/20/24 18:22: WBC 14.7 H, RBC 3.70 L, Hgb 11.3 L, Hct 33.3 L, MCV 90.0, MCH 30.5, MCHC 33.9, RDW Std Deviation 47.9 H, RDW Coeff of Vivek 14.6, Plt Count 223, MPV 10.0, Immature Gran % (Auto) 0.700, Neut % (Auto) 86.2 H, Lymph % (Auto) 5.2 L, [place] % (Auto) 7.6, Eos % (Auto) 0.1, Baso % (Auto) 0.2, Absolute Neuts (auto) 12.7 H, Absolute Lymphs (auto) 0.76 L, Nucleated RBC % 0, PT 50.3 H, INR 5.6 H*, Sodium 133 L, Potassium 2.9 L, Chloride 97 L, Carbon Dioxide 28.0, Anion Gap 8, BUN 10, Creatinine 1.18, Est GFR (MDRD) Af Amer 79, Est GFR (MDRD) Non-Af 65, B UN/Creatinine Ratio 8.5 L, Glucose 162 H, Calcium 8.6, Magnesium 1.7, Troponin I High Sens 5, B-Natriuretic Peptide 75.4 04/20/24 22:10: Procalcitonin 0.13 H 04/21/24 05:35: WBC 8.5, RBC 3.72 L, Hgb 11.4 L, Hct 34.5 L, MCV 92.7, MCH 30.6, MCHC 33.0, RDW Std Deviation 50.2 H, RDW Coeff of Vivek 14.6, Plt Count 223, MPV 10.1, Immature Gran % (Auto) 1.100 H, Neut % (Auto) 91.4 H, Lymph % (Auto) 5.6 L , [place] % (Auto) 1.6, Eos % (Auto) 0.1, Baso % (Auto) 0.2, Absolute Neuts (auto) 7.8 H, Absolute Lymphs (auto) 0.48 L, Nucleated RBC % 0, PT 52.0 H, INR 5.9 H*, Sodium 132 L, Potassium 3.8, Chloride 97 L, Carbon Dioxide 27.0, Anion Gap 8, BUN 10, Creatinine 0.95, Estim Creat Clear Calc 69.58, Est GFR (MDRD) Af Amer 101, Est GFR (MDRD) Non-Af 84, BUN/Creatinine Ratio 10.5, Glucose 183 H, Calcium 8.5, Iron 20 L, TIBC 270, Iron Saturation 7.4 L, Ferritin 927 H, Total Bilirubin 1.50 H, AST 20, ALT 16, Alkaline Phosphatase 74, Total Protein 7.1, Albumin 3.1 L, Globulin 4.0, Albumin/Globulin Ratio 0.8 L Micro: Microbiology 04/21/24 04:37 Stool Stool Occult Blood (JOSE ENRIQUE) - Final Occult Blood Positive 04/20/24 23:45 Mucosa - Nose Respiratory Panel (PCR) - Final 04/20/24 18:33 Mucosa - Nose SARS-CoV-2, Influenza & RSV (PCR) - Final Radiography Diagnostic Testing: Radiology Impression Chest X-Ray 04/20/24 18:55 IMPRESSION: No change from 04/07/2024. Electronically Signed: Francisco Shane MD at 19:27 EDT , Rhythm Strip Rhythm Strip: Tachycardia Rate: 103 Ectopy: None Physical Exam Narrative General: Alert, Oriented x3, Cooperative, No apparent distress HEENT: Atraumatic, PERRLA, EOMI, Normocephalic Oral: Moist Mucosa Neck: Supple, No JVD Lungs: Diminished, Normal air movement, No rhonchi, No wheeze, No rales Cardiovascular: Regular rate, Regular Rhythm, Normal S1, Normal S2, No murmurs Abdomen: Soft, Non Tender, Non-Distended, No Hepato-splenomegaly Extremities: No edema, Capillary Refill Less than 3 Seconds Skin: No rashes, No breakdown Musculoskeletal: No Tenderness to Palpation of Joints or Extremities Neurological: No focal neurological deficits, Motor Exam 5/5 strength throughout, Sensory exam intact to light touch and pain Psych/Mental Status: Normal Affect, Appropriate Assessment & Plan Assessment/Plan (1) COPD with acute exacerbation: PLAN: Plan 1. Hypoxia secondary to COPD exacerbation ? Continue with steroids ? Continue with breathing treatments ? Sputum cultures pending ? Viral panels were negative 2. GI bleed ? Hemoglobin is not significantly lowered at 11.4 though he is normally around 13 ? Plan for EGD today ? He is supratherapeutic on his INR receiving vitamin K and his Coumadin has been held 3. Paroxysmal A-fib/essential HTN ? Hold Coumadin ? Continue with his home blood pressure medications ? Blood pressures are currently stable ? Will continue to monitor 4. GERD ? Stable Continue with PPI 5. Gout ? Stable?continue with allopurinol DVT: Supratherapeutic INR This Charges/Coding Visit Charges Inpatient E&M: 48656 Subs Hosp L2
[2024-04-21] MEDS: FLU VACCINE **HIGH DOSE** TV 24-25 180 MCG/0.5 ML SYRINGE IM (12:10)
[2024-04-21] MEDS: 0.9% Saline Lock 10 ML Syringe IV ×2 (14:05→21:32)
[2024-04-21 15:43] LABS: International Normalized Ratio 1.7; Prothrombin Time (Protime)PT. 19.5 SECONDS (11.7-14.9)
--- NOTE | 2024-04-21 15:46 | PRE.ANES_ITS ---
ASA Classification* ASA Classification ASA Classification: 3 Assessment & Plan Anesthesia* Anesthesia Assessment Anesthesia Assessment: Discussed sedation and/or anesthesia options, risks, benefits, and alternatives with patient/parents/legal guardian/POA. Questions invited. The patient/parents/legal guardian/POA seems to understand and agrees to proceed with anesthesia plan. Reviewed the physical assessment, medical history, allergy history and patient home medications list prior to surgery/procedure/anesthetic and documented any changes. Performed airway and anesthesia risk assessments. Anesthesia Type Anesthesia Type: MAC History Source History Obtained from:: Patient and Chart Anesthesia Focused Assessment* Temperature: 97.5 F Pulse Rate: 82 Blood Pressure: 107/70 Respiratory Rate: 19 Pulse Ox: 93 Oxygen Delivery Method: Nasal Cannula Airway Assessment Mouth opens: >3 cm Mallampati Score: II Teeth Condition: Missing (Few missing teeth.) Neck Range of motion (ROM): Full ROM Focused Labs Anesthesia Preop lab: CBC WBC 8.5 K/mm3 (4.4-11.0) 04/21/24 05:35 RBC 3.72 M/mm3 (4.6-6.2) L 04/21/24 05:35 Hgb 11.4 g/dL (13.0-16.5) L 04/21/24 05:35 Hct 34.5 % (40-54) L 04/21/24 05:35 Plt Count 223 K/mm3 (150-450) 04/21/24 05:35 CHEMISTRY Potassium 3.8 mmol/L (3.5-5.1) 04/21/24 05:35 Sodium 132 mmol/L (136-145) L 04/21/24 05:35 Magnesium 1.7 mg/dL (1.6-2.6) 04/20/24 18:22 Phosphorus 3.1 mg/dL (2.5-4.9) 05/30/15 20:00 BUN 10 mg/dL (7-18) 04/21/24 05:35 Creatinine 0.95 mg/dL (0.70-1.30) 04/21/24 05:35 Glucose 183 mg/dL (74-106) H 04/21/24 05:35 POC Glucose 80 mg/dL (74-106) 07/10/23 11:54 TSH 2.45 uIU/mL (0.358-3.74) 05/22/19 09:00 COAG PT 19.5 SECONDS (11.7-14.9) H 04/21/24 15:27 INR 2.0 12/06/23 10:48 Pre-Assessment Diagnosis/Proposed Procedure Planned Operative Procedure(s): EGD Anesthesia History Anesthesia History - project manager: Anesthesia History - project manager Hx Hospitalization No 11/16/23 12:17 Any Problems With Anesthesia No 11/16/23 12:17 Cholinesterase deficiency No 11/16/23 12:17 You/Your Family Experience No 11/16/23 12:17 fever (hyperthermia) with Relationship Recent Exposure to Contagious No 11/20/23 11:04 Disease Does patient have nerve No 11/16/23 12:17 stimulator Patient instructed to have device shut off --Does patient have Pacemaker or ICD? When Was Last Pacemaker Check QUESTION #4 FULL TEXT: You/Your Family Experience fever (hyperthermia) with Anesthesia Last Oral Intake Last Oral intake: Last Oral Intake NPO since Meds taken in AM with sips of water? Meds patient instructed to take am of surgery Any additional information?: Yes NPO since: 00:00 PONV PONV - project manager: PONV - project manager Female HX of Motion Sickness HX of N/V After Surgery Non-Smoker Duration of Surgery greater than 60 minutes Number of Risk Factors PONV Score Height & Weight Height & Weight: Anesthesia: Height & Weight Height 5 ft 7 in 04/20/24 23:28 Weight: 73.4 kg 04/21/24 03:41 Body Mass Index (BMI) 25.3 04/21/24 03:41 Respiratory Assessment Respiratory Assessment - project manager: Respiratory Tract Infection Hx - project manager Hx Respiratory Tract Infection No 11/16/23 12:17 STOP Sleep Apnea STOP Sleep Apnea - project manager: STOP Sleep Apnea - project manager Hx Hypertension Yes 04/20/24 23:28 Hx Sleep Apnea No 04/20/24 23:28 CPAP No 04/07/24 12:57 BIPAP No 04/07/24 12:57 Do you snore loudly (louder No 04/20/24 23:28 than talking or can be heard Do you often feel tired/ No 04/20/24 23:28 fatigued/ sleepy during daytime? Has anyone observed you stop No 04/20/24 23:28 breathing during sleep? STOP Results Negative 04/20/24 23:28 QUESTION #5 FULL TEXT : Do you snore loudly (louder than talking or can be heard through closed doors)? Tobacco Use History Tobacco Use History - project manager: Tobacco Use History - project manager Tobacco Use Smoking Status Former smoker 04/20/24 23:28 Hx Tobacco Use No 04/20/24 23:28 Years Smoking Packs Smoked per Day Smoking Cessation Date was Yes - quit smoking within 15 04/20/24 23:28 within the last 15 years years Hx Smoking Cessation Date 07/30/18 04/20/24 23:28 Hx Smoking Cessation No 04/20/24 23:28 Counseling Hematologic Medial History Hematologic Hx - project manager: Hematologic Medical Hx - pump tester Hx of Blood Transfusion Yes 04/20/24 23:28 Hx of Transfusion in last 3 No 04/20/24 23:28 Months Date of Last Transfusion (if within last 3 months) Ever experience any problems No 04/20/24 23:28 with transfusion(s)? Specify any problems Hx of Preganancy in last 3 N/A 04/20/24 23:28 Months Nurse Filling Out Transfusion [id number] 04/20/24 23:28 & Questions: Date: 04/20/24 04/20/24 23:28 Time: 23:32 04/20/24 23:28 Patient unable to answer at this time (ie. confused, unrespo /Reproduction History /Reproductive History - project manager: /Reproductive Hx- project manager Hx Now Gestational Age (in weeks): EDC: Hx Hx Para Hx Section SAB No 11/16/23 12:17 Active Medications Active Medications: Current Medications Generic Name Dose Route Start Last Admin Trade Name Freq PRN Reason Stop Dose Admin Acetaminophen 650 mg 04/20/24 23:27 Acetaminophen 325 Mg Tablet PO Q4H PRN PRN Fever, pain 1-10/10 Al Hydrox/Mg Hydrox/Simethicone 30 ml 04/20/24 23:27 Mag /Aluminum/Simeth Wch Udc 30 Ml Oral.Susp PO Q6H PRN PRN Gastric Burning Albuterol Sulfate 2.5 mg 04/20/24 23:27 Albuterol 2.5 Mg/3 Ml Vial.Neb. INHALATION Q2H PRN PRN Dyspnea, wheezing Allopurinol 300 mg 04/21/24 10:00 04/21/24 08:36 Allopurinol 300 Mg Tablet PO 300 mg DAILY LOY Administration Budesonide 0.5 mg 04/20/24 23:27 04/21/24 07:38 Budesonide Respules 0.5 Mg/2 Ml Ampul.Neb. INHALATION 0.5 mg BID.RT LOY Administration Diltiazem HCl 240 mg 04/20/24 23:27 04/21/24 08:37 Diltiazem Cd 240 Mg Capsule PO 240 mg BID LOY Administration Protocol Dofetilide 500 mcg 04/21/24 10:00 04/21/24 08:36 Dofetilide 250 Mcg Capsule PO 500 mcg BID LOY Administration Furosemide 40 mg 04/21/24 10:00 04/21/24 08:37 Furosemide 40 Mg Tablet PO 40 mg DAILY LOY Administration Protocol Guaifenesin 600 mg 04/20/24 23:27 04/21/24 08:37 Guaifenesin 600 Mg Tablet PO 600 mg BID LOY Administration Hydralazine HCl 10 mg 04/20/24 23:27 Hydralazine 20 Mg/Ml Vial IV Q4H PRN PRN SBP > 160 Protocol Sodium Chloride 250 mls @ 15 mls/hr 04/20/24 23:34 IV .[id number] PRN Additional IVPB Infusion Sodium Chloride 250 mls @ 15 mls/hr 04/20/24 23:34 IV .[id number] PRN Saline Flush Pantoprazole Sodium 80 mg/ 100 mls @ 10 mls/hr 04/21/24 07:00 04/21/24 08:30 Sodium Chloride CONT INF 10 mls/hr Q10H LOY Administration Lactated Ringer's 1,000 mls @ 15 mls/hr 04/21/24 15:15 IV .Q48H LOY Melatonin 3 mg 04/20/24 23:27 Melatonin 3 Mg Tablet PO QHS PRN PRN INSOMNIA Methylprednisolone 40 mg 04/21/24 06:00 04/21/24 14:05 Methylprednisolone 40 Mg/Ml Vial IV 40 mg Q8 LOY Administration Ondansetron HCl 4 mg 04/20/24 23:27 Ondansetron 4 Mg/2 Ml Vial IV Q8H PRN PRN NAUSEA/VOMITING Potassium Chloride 10 meq 04/21/24 10:00 04/21/24 08:41 Potassium Chloride Oral Tablet 10 Meq PO 10 meq DAILY LOY Administration Senna/Docusate Sodium 2 tablet 04/20/24 23:27 Senna/Docusate Sodium 1 Tablet PO BID PRN PRN Constipation Sodium Chloride 10 - 40 ml 04/20/24 23:34 04/21/24 14:05 0.9% Saline Lock 10 Ml Syringe IV 10 ml UD PRN Administration SALINE FLUSH [facility] Medical History History of echocardiogram DVT (deep venous thrombosis) Injury of back History of hiatal hernia Shortness of breath on exertion Former smoker Leg cramps Cardiology follow-up encounter Pulmonary emphysema Hyperlipidemia Colon polyps Barretts esophagus Scabies Atrial fibrillation and flutter Osteoporosis Essential hypertension History of DVT (deep vein thrombosis) Paroxysmal atrial tachycardia Paroxysmal atrial fibrillation GERD (gastroesophageal reflux disease) Gout Type 2 diabetes mellitus Hypertension 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 Near syncope Bradycardia Tobacco dependence Afib Home Medications ?Medication ?Instructions ?Recorded ?Last Taken ?Type dofetilide 500 mcg capsule 500 mcg PO BID heart #180 caps 09/26/23 04/07/24 Rx potassium chloride 10 mEq 10 meq PO DAILY supplement #90 09/26/23 04/07/24 Rx tablet,extended release(part/cryst) tabs denosumab 60 mg/mL subcutaneous 60 mg subcut [id number] osteoperosis 11/29/23 Unknown Rx syringe (Prolia) #1 mL albuterol sulfate 90 mcg/actuation 2 puff inhalation Q6H PRN 01/28/24 04/07/24 Rx aerosol inhaler shortness of breath or wheezing #8.5 grams furosemide 40 mg tablet 40 mg PO DAILY edema 02/28/24 04/07/24 History omega-3 fatty acids 1,000 mg 1,000 mg PO DAILY supplement 02/28/24 04/07/24 History capsule omeprazole 20 mg capsule,delayed 20 mg PO DAILY acid reflux 02/28/24 04/07/24 History release budesonide 160 mcg-glycopyr 9 2 inh inhalation BID shortness of 03/12/24 04/07/24 Rx mcg-formot 4.8 mcg/actuation HFA breath #10.7 grams inhaler (Breztri Aerosphere) allopurinol 300 mg tablet 300 mg PO DAILY 04/07/24 04/07/24 History cholecalciferol (vitamin D3) 50 50 mcg PO DAILY supplement 04/07/24 04/07/24 History mcg (2,000 unit) capsule pantoprazole 40 mg tablet,delayed 40 mg PO BID gerd 04/07/24 04/07/24 History release guaifenesin 600 mg tablet, 600 mg PO BID #10 tabs 04/09/24 Unknown Rx extended release 12 hr (Mucinex) warfarin 2 mg tablet 3 mg PO DAILY blood thinner #30 04/09/24 04/06/24 Rx tabs diltiazem HCl 240 mg 240 mg PO BID #60 caps 04/15/24 Unknown Rx capsule,extended release 24 hr (Cardizem CD) Allergy/AdvReac Type Severity Reaction Status Date / Time secobarbital sodium (From Allergy Unknown Verified 04/20/24 17:51 [place]) venom-honey bee (bee venom Allergy Anaphylaxis Verified 04/20/24 17:51 (honey bee)) Family History Mother Diabetes Hypertension Myocardial infarction CAD (coronary artery disease) Father Hypertension Heart disease Diabetes Myocardial infarction CAD (coronary artery disease) Surgical History History of esophagogastroduodenoscopy (EGD) History of hip replacement Status post peripheral artery angioplasty History of left hip replacement History of cardiac radiofrequency ablation (~04/2008) Social History household members: other details: His mother lives with him. Smoking Status: Former smoker Tobacco: How many years used: 50 how long ago did patient quit smokin alcohol intake: current alcohol intake frequency: a few times a month Alcohol type: beer substance use type: does not use caffeine: No Review of Systems (Anesthesia) ROS Narrative System reviewed and no additional complaints, except as documented.
[2024-04-21] MEDS: Lactated Ringers 1,000 ML 15 ML IV (15:59)
--- NOTE | 2024-04-21 16:40 | EX.PCM.CON.G ---
HPI Consult Data Date of Consult: 04/21/24 HPI Narrative Reason for Consultation: Hematemesis HPI Narrative: ENRIQUE MCNALLY, is a 68 y/o M w/ PMHx: PAF/Flutter status post RFA, COPD, Former tobacco use, Hx VTE (DVT), HTN, HLD, GERD w/ Vergara's esophagus with dysplasia status post ablation, Gout, Diabetes mellitus type II, PAD status post peripheral artery angioplasty. He was recently discharged following evaluation and treatment of pneumonia treated with Rocephin and doxycycline transition to completion regimen of doxycycline and Augmentin therapy with concurrently noted hemoptysis and hematemesis. CT demonstrating a left upper lobe infiltrate as well as additionally a 3.9 cm density in the right upper lobe. He now re-presents to the [facility] ED on 04/20/24 with history of worsening dyspnea with hypoxia recently treated for pneumonia noted to decrease to 82% at home on room air prompting EMS call. He notes that the evening prior he became very diaphoretic as well. He denies any specific fever or chills but notes ongoing coughing, occasional productive sputum and dyspnea worse with exertion as well as lymphadenopathy. Workup in the ED included T96.8 Temporally, heart rate 107, BP 125/72, respiratory rate 26, 92% on room air eventually dropping down to 88% improving with most recent vital signs heart rate 103, BP 108/77, respiratory rate 18, 93% on 3 L nasal cannula CBC with WC 14.7, 11.3, MCV 90, platelet 223 with left shift and lymphopenia, coags with INR elevated 5.6, BMP with sodium 133, potassium 2.9, chloride 97, glucose 162, troponin 5, BNP 75.4 chest x-ray with no acute cardiopulmonary findings with interstitial fibrotic changes of the lungs, rapid SARS COVID/influenza/RSV PCR negative, EKG with tachycardia possibly sinus tach versus atrial flutter, uncertain. I was asked to evaluate him due to his hematemesis. 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 Near syncope Bradycardia Tobacco dependence Afib Home Medications ?Medication ?Instructions ?Recorded ?Last Taken ?Type dofetilide 500 mcg capsule 500 mcg PO BID heart #180 caps 09/26/23 04/07/24 Rx potassium chloride 10 mEq 10 meq PO DAILY supplement #90 09/26/23 04/07/24 Rx tablet,extended release(part/cryst) tabs denosumab 60 mg/mL subcutaneous 60 mg subcut [id number] osteoperosis 11/29/23 Unknown Rx syringe (Prolia) #1 mL albuterol sulfate 90 mcg/actuation 2 puff inhalation Q6H PRN 01/28/24 04/07/24 Rx aerosol inhaler shortness of breath or wheezing #8.5 grams furosemide 40 mg tablet 40 mg PO DAILY edema 02/28/24 04/07/24 History omega-3 fatty acids 1,000 mg 1,000 mg PO DAILY supplement 02/28/24 04/07/24 History capsule omeprazole 20 mg capsule,delayed 20 mg PO DAILY acid reflux 02/28/24 04/07/24 History release budesonide 160 mcg-glycopyr 9 2 inh inhalation BID shortness of 03/12/24 04/07/24 Rx mcg-formot 4.8 mcg/actuation HFA breath #10.7 grams inhaler (Breztri Aerosphere) allopurinol 300 mg tablet 300 mg PO DAILY 04/07/24 04/07/24 History cholecalciferol (vitamin D3) 50 50 mcg PO DAILY supplement 04/07/24 04/07/24 History mcg (2,000 unit) capsule pantoprazole 40 mg tablet,delayed 40 mg PO BID gerd 04/07/24 04/07/24 History release guaifenesin 600 mg tablet, 600 mg PO BID #10 tabs 04/09/24 Unknown Rx extended release 12 hr (Mucinex) warfarin 2 mg tablet 3 mg PO DAILY blood thinner #30 04/09/24 04/06/24 Rx tabs diltiazem HCl 240 mg 240 mg PO BID #60 caps 04/15/24 Unknown Rx capsule,extended release 24 hr (Cardizem CD) Allergy/AdvReac Type Severity Reaction Status Date / Time secobarbital sodium (From Allergy Unknown Verified 04/20/24 17:51 [place]) venom-honey bee (bee venom Allergy Anaphylaxis Verified 04/20/24 17:51 (honey bee)) Family History Mother Diabetes Hypertension Myocardial infarction CAD (coronary artery disease) Father Hypertension Heart disease Diabetes Myocardial infarction CAD (coronary artery disease) Surgical History History of esophagogastroduodenoscopy (EGD) History of hip replacement Status post peripheral artery angioplasty History of left hip replacement History of cardiac radiofrequency ablation (~04/2008) Social History household members: other details: His mother lives with him. Smoking Status: Former smoker Tobacco: How many years used: 50 how long ago did patient quit smokin alcohol intake: current alcohol intake frequency: a few times a month Alcohol type: beer substance use type: does not use caffeine: No ROS ROS Narrative Admission Review of Systems: CONSTITUTIONAL: No weight loss, fever, chills, + weakness or fatigue. HEENT: Eyes: No visual loss, blurred vision, double vision or yellow sclerae. Ears, Nose, Throat: No hearing loss, sneezing, congestion, runny nose or sore throat. SKIN: No rash or itching, lesions, wounds. CARDIOVASCULAR: No chest pain, chest pressure or chest discomfort, palpitations, edema, orthopnea, syncopal events. RESPIRATORY: + Dyspnea, worse with exertion, occasional productive cough, wheezing, previous hemoptysis with prior history of pneumonia. GASTROINTESTINAL: + Decreased appetite. No nausea, vomiting or diarrhea, abdominal pain, melena, BRBPR. GENITOURINARY: No dysuria, frequency, urgency or retention. NEUROLOGICAL: No headache, dizziness, syncope, paralysis, ataxia, numbness or tingling in the extremities, focal weakness, change in bowel or bladder control, seizure. MUSCULOSKELETAL: + muscle, back pain, joint pain or stiffness. HEMATOLOGIC: + Chronic anemia, easy bleeding/bruising. LYMPHATICS: No enlarged nodes. No history of splenectomy. PSYCHIATRIC: No history of depression or anxiety. ENDOCRINOLOGIC: No reports of sweating, cold or heat intolerance. No polyuria or polydipsia. ALLERGIES: + History of anaphylaxis. Physical Exam Narrative General: Alert, Oriented x3, Cooperative, No apparent distress HEENT: Atraumatic, PERRLA, EOMI, Normocephalic Oral: Moist Mucosa Neck: Supple, No JVD Lungs: Diminished, Normal air movement, No rhonchi, No wheeze, No rales Cardiovascular: Regular rate, Regular Rhythm, Normal S1, Normal S2, No murmurs Abdomen: Soft, Non Tender, Non-Distended, No Hepato-splenomegaly Extremities: No edema, Capillary Refill Less than 3 Seconds Skin: No rashes, No breakdown Musculoskeletal: No Tenderness to Palpation of Joints or Extremities Neurological: No focal neurological deficits, Motor Exam 5/5 strength throughout, Sensory exam intact to light touch and pain Psych/Mental Status: Normal Affect, Appropriate Lab / Micro Data 04/21/24 05:35 04/21/24 05:35 Labs: Laboratory Results - last 24 hr 04/20/24 18:22: WBC 14.7 H, RBC 3.70 L, Hgb 11.3 L, Hct 33.3 L, MCV 90.0, MCH 30.5, MCHC 33.9, RDW Std Deviation 47.9 H, RDW Coeff of Vivek 14.6, Plt Count 223, MPV 10.0, Immature Gran % (Auto) 0.700, Neut % (Auto) 86.2 H, Lymph % (Auto) 5.2 L, [place] % (Auto) 7.6, Eos % (Auto) 0.1, Baso % (Auto) 0.2, Absolute Neuts (auto) 12.7 H, Absolute Lymphs (auto) 0.76 L, Nucleated RBC % 0, PT 50.3 H, INR 5.6 H*, Sodium 133 L, Potassium 2.9 L, Chloride 97 L, Carbon Dioxide 28.0, Anion Gap 8, BUN 10, Creatinine 1.18, Est GFR (MDRD) Af Amer 79, Est GFR (MDRD) Non-Af 65, BUN/Creatinine Ratio 8.5 L, Glucose 162 H, Calcium 8.6, Magnesium 1.7, Troponin I High Sens 5, B-Natriuretic Peptide 75.4 04/20/24 22:10: Procalcitonin 0.13 H 04/21/24 05:35: WBC 8.5, RBC 3.72 L, Hgb 11.4 L, Hct 34.5 L, MCV 92.7, MCH 30.6, MCHC 33.0, RDW Std Deviation 50.2 H, RDW Coeff of Vivek 14.6, Plt Count 223, MPV 10.1, Immature Gran % (Auto) 1.100 H, Neut % (Auto) 91.4 H, Lymph % (Auto) 5.6 L, [place] % (Auto) 1.6, Eos % (Auto) 0.1, Baso % (Auto) 0.2, Absolute Neuts (auto) 7.8 H, Absolute Lymphs (auto) 0.48 L, Nucleated RBC % 0, PT 52.0 H, INR 5.9 H*, Sodium 132 L, Potassium 3.8, Chloride 97 L, Carbon Dioxide 27.0, Anion Gap 8, BUN 10, Creatinine 0.95, Estim Creat Clear Calc 69.58, Est GFR (MDRD) Af Amer 101, Est GFR (MDRD) Non-Af 84, BUN/Creatinine Ratio 10.5, Glucose 183 H, Calcium 8.5, Iron 20 L, TIBC 270, Iron Saturation 7.4 L, Ferritin 927 H, Total Bilirubin 1.50 H, AST 20, ALT 16, Alkaline Phosphatase 74, Total Protein 7.1, Albumin 3.1 L, Globulin 4.0, Albumin/Globulin Ratio 0.8 L 04/21/24 15:27: PT 19.5 H, INR 1.7 Micro: Microbiology 04/21/24 02:44 Sputum, Expectorated/Coughed Gram Stain - Final 04/21/24 04:37 Stool Stool Occult Blood (JOSE ENRIQUE) - Final Occult Blood Positive 04/20/24 23:45 Mucosa - Nose Respiratory Panel (PCR) - Final 04/20/24 18:33 Mucosa - Nose SARS-CoV-2, Influenza & RSV (PCR) - Final Rhythm Strip Rhythm Strip: Tachycardia Rate: 103 Ectopy: None Imaging Radiology Impression Chest X-Ray 04/20/24 18:55 IMPRESSION: No change from 04/07/2024. Electronically Signed: Francisco Shane MD at 19:27 EDT , Assessment & Plan Assessment/Plan (1) COPD with acute exacerbation: PLAN: Plan The patient is a 68 y/o M w/ PMHx: PAF/Flutter status post RFA, COPD, Former tobacco use, Hx VTE (DVT), HTN, HLD, GERD w/ Vergara's esophagus, Gout, Diabetes mellitus type II, PAD status post peripheral artery angioplasty with COPD exacerbation, hemoptysis and hematemesis. Differential diagnosis for his hematemesis is cough induced reflux causing erosive esophagitis, Nyla-Schmidt tear, peptic ulcer disease secondary to steroids from recent COPD exacerbation treatment. Recommend fix INR. He will undergo an upper endoscopy. He was explained alternatives, risk, benefits including not withstanding bleeding, infection, sepsis, perforation, need for emergent urgent . He will have an ASA of 3. Charges/Coding Visit Charges Inpatient E&M: 91438 Init Hosp L3
--- NOTE | 2024-04-21 16:42 | PCM.POST.ANE ---
Anesthesia: Postop Eval I Current Vital Signs Temperature: 97 F Pulse Rate: 61 Blood Pressure: 103/70 Respiratory Rate: 14 Pulse Ox: 94 Oxygen Delivery Method: Room Air Assessment Airway patent: Yes Spontaneous unlabored respirations: Yes Mental status: Awake nausea: No Vomiting: No Anesthesia Complication: No Fluid Hydration Crystalloid volume administer (ml): 400 Total IV fluid infused: 400 Progress Note Anesthesia document: Postop Eval 1 completed: Yes
--- NOTE | 2024-04-21 16:51 | OP.EGD_ITS ---
Patient Name: Roger Mart Procedure Date: 04/21/2024 4:27 PM Date of : 1955 Age: 68 Procedure: Upper GI endoscopy Indications: Hematemesis Providers: Pablo Pichardo DO Medicines: Monitored Anesthesia Care Patient Profile: This is a 68 year old male. Refer to note in patient chart for documentation of history and physical. Patient has symptoms. Complications: No immediate complications. Procedure: Pre-Anesthesia Assessment: - Prior to the procedure, a History and Physical was performed, and patient medications and allergies were reviewed. The patient is competent. The risks and benefits of the procedure and the sedation options and risks were discussed with the patient. All questions were answered and informed consent was obtained. Patient identification and proposed procedure were verified by the physician in the pre-procedure area. Mental Status Examination: alert and oriented. Airway Examination: normal oropharyngeal airway and neck mobility. Respiratory Examination: clear to auscultation. CV Examination: normal. Prophylactic Antibiotics: The patient does not require prophylactic antibiotics. Prior Anticoagulants: The patient has taken no anticoagulant or antiplatelet agents except for NSAID medication. ASA Grade Assessment: II - A patient with mild systemic disease. After reviewing the risks and benefits, the patient was deemed in satisfactory condition to undergo the procedure. The anesthesia plan was to use monitored anesthesia care (MAC). Immediately prior to administration of medications, the patient was re-assessed for adequacy to receive sedatives. The heart rate, respiratory rate, oxygen saturations, blood pressure, adequacy of pulmonary ventilation, and response to care were monitored throughout the procedure. The physical status of the patient was re-assessed after the procedure. After obtaining informed consent, the endoscope was passed under direct vision. Throughout the procedure, the patient's blood pressure, pulse, and oxygen saturations were monitored continuously. The Endoscope was introduced through the mouth, and advanced to the second part of duodenum. The upper GI endoscopy was accomplished without difficulty. The patient tolerated the procedure well. Scope In: 4:31:20 PM Scope Out: 4:33:40 PM Total Procedure Duration Time 0 hours 2 minutes 20 seconds Findings: The examined esophagus was normal. Vergara's esophagus was present in the lower third of the esophagus. A medium-sized hiatal hernia was present. Localized severe inflammation characterized by erosions, erythema, friability and granularity was found in the cardia. No gross lesions were noted in the duodenal bulb. Impression: - Normal esophagus. - Vergara's esophagus. - Medium-sized hiatal hernia. - Chronic gastritis. - No gross lesions in the duodenal bulb. - No specimens collected. Recommendation: - Return patient to [facility] for ongoing care. - Resume regular diet. - Continue present medications. Procedure Code(s): --- Professional --- 07353, Esophagogastroduodenoscopy, flexible, transoral; diagnostic, including collection of specimen(s) by brushing or washing, when performed (separate procedure) CPT copyright 2021 [employer]. All rights reserved. The codes documented in this report are preliminary and upon outpatient coder review may be revised to meet current compliance requirements. Pablo Pichardo DO 04/21/2024 4:50:24 PM This report has been signed electronically. Number of Addenda: 0 Note Initiated On: 04/21/2024 4:27 PM
--- NOTE | 2024-04-21 16:51 | OP.CCLET_ITS ---
04/21/2024 Adriel Pike Md Re : Upper GI endoscopy procedure for Roger Álvarezchris Pike This procedure was performed on Sunday, April 21, 2024. My impressions and recommendations are as follows: Impressions : - Normal esophagus. - Vergara's esophagus. - Medium-sized hiatal hernia. - Chronic gastritis. - No gross lesions in the duodenal bulb. - No specimens collected. Recommendations : - Return patient to [facility] care. - Resume regular diet. - Continue present medications. My findings are described in the full procedure note, which is enclosed. If I can be of further assistance, please feel free to contact me at . Sincerely, Pablo Pichardo, 04/21/2024 4:50:24 PM This report has been signed electronically.
--- NOTE | 2024-04-21 17:35 | PCM.POSTANE2 ---
Anesthesia Postop Eval I Sum Postop Eval Completion status Anesthesia document: Postop Eval 1 completed: Yes Anesthesia Postop Eval I Summary Anesthesia Postop Eval I Summary: Anesthesia Postop Eval I: Assessment Summary Airway patent Yes 04/21/24 16:43 [email or web address] Spontaneous unlabored Yes 04/21/24 16:43 [email or web address] respirations Mental status Awake 04/21/24 16:43 [email or web address] nausea No 04/21/24 16:43 [email or web address] Vomiting No 04/21/24 16:43 [email or web address] Anesthesia Postop Eval I: Fluid Summary Crystalloid volume administer 400 04/21/24 16:43 [email or web address] (ml) Colloids volume administered ( ml) Blood Product volume administered (ml) Total IV fluid infused 400 04/21/24 16:43 [email or web address] Anesthesia Postop Eval I: Summary Notes Anesthesia Complication No 04/21/24 16:43 [email or web address] Anesthesia Complication Comment: Post-operative progress note Anesthesia: Postop Eval II Evaluation Mental status: Awake Pain Level: 0 nausea: No Vomiting: No
[2024-04-22] VITALS (8 sets, daily range): BP systolic 96–111; BP diastolic 67–81; PULSE 70–94; RESP 15–20; TEMP 36.1–36.4; O2SAT 84–100; BMI 25.4; BMI 25.6
[2024-04-22] MEDS: 0.9% Saline Lock 10 ML Syringe IV ×5 (01:53→20:08)
[2024-04-22] MEDS: Pantoprazole Sodium 80 MG in 0.9% Normal Saline (100mL Bag) 80 ML 10 MG CONT INF (03:21)
[2024-04-22 06:23] LABS: Basophil# 0.03 X10^3/uL; Eosinophil# 0.06 X10^3/uL; Hematocrit 32.5 % (40-54); Hemoglobin 10.6 g/dL (13.0-16.5); Lymphocyte # 0.73 X10^3/ul (0.83-4.51); Mean Corp Hgb Conc 32.6 g/dL (32-36); Mean Corpuscular Hgb 29.9 pg (27.0-32.0); Mean Corpuscular Volume 91.5 fL (80-94); Mean Platelet Vol. 10.2 fl (6.2-12.0); Monocyte# 0.65 X10^3/uL; NRBC Flagged by Analyzer 0 % (0-5); Neutrophil # 20.87 X10^3/uL (2.7-7.7); POSITIVE DIFFERENTIAL YES; Platelet Count 246 K/mm3 (150-450); RBC Distribution Width CV 14.4 % (11.6-14.6); RBC Distribution Width SD 48.5 fl (35.1-43.9); Red Blood Count 3.55 M/mm3 (4.6-6.2); White Blood Count 22.5 K/mm3 (4.4-11.0)
[2024-04-22 06:30] LABS: Differential Indicated SCAN CRITERIA MET
[2024-04-22 06:34] LABS: International Normalized Ratio 1.3; Prothrombin Time (Protime)PT. 15.9 SECONDS (11.7-14.9)
[2024-04-22 06:49] LABS: Anion Gap 6 (5-15); BUN 15 mg/dL (7-18); BUN/Creat Ratio 17.9 RATIO (10-20); Calcium,Total 8.6 mg/dL (8.5-10.1); Chloride 99 mmol/L (98-107); Creatinine, Serum 0.84 mg/dL (0.70-1.30); EST Glomerular Filtration Rate 97 mL/min (>60); Est Glom Filt Rate - Afr Amer 117 mL/min (>60); Estimated Creatinine Clearance 78.69 ml/min; Glucose 156 mg/dL (74-106); Potassium 3.4 mmol/L (3.5-5.1); Sodium Level 129 mmol/L (136-145)
[2024-04-22] MEDS: Budesonide Respules 0.5 MG/2 ML AMPUL.NEB. INHALATION ×2 (07:15→19:50)
[2024-04-22 08:59] LABS: Lymphocyte 6 % (19-41); Monocyte 4 % (0-10); Neutrophil-Segmented 90 % (47-70); Total Cells Counted 100 (MANUAL DIFF)
[2024-04-22 09:00] LABS: Anisocytosis 1+; Platelet Morphology LARGE
[2024-04-22 09:01] LABS: Platelet Estimate ADEQUATE (ADEQ)
[2024-04-22 09:02] LABS: Scan Smear per Review Criteria MANUAL DIFF
[2024-04-22 09:04] LABS: Absolute Neutrophil Count 20.2 X10^3/uL (2.0-7.7)
--- NOTE | 2024-04-22 10:20 | CASEMGMT ---
NITZA COLLAZO chart review: Patient was admitted from 04/07-04/09/24 for pneumonia. See RN CM assessment from 04/08/24. Patient did not qualify for home oxygen and discharged to home. Patient returned to the ED on 04/15/24 for palpitations and increased Cardizem to twice daily. Patient returned to [facility] ED on 04/20/24 for increased shortness of breath and admitted for COPD exacerbation, requiring 3-5lpm. RN CM in to discuss needs at discharge and readmission. Patient states he had seen his PCP on 04/17. Patient was taking medications as prescribed. Patient states he called [facility] and they advised him to come to ED. NITZA COLLAZO discussed CCN program with patient and voiced interests. Referral made to CCN. Will monitor patient for home oxygen at discharge, prefers [place]. Patient denies further needs or concerns at this time. CM will continue to follow this patient and plan a safe discharge.
[2024-04-22] MEDS: Furosemide 40 MG Tablet PO (11:12)
[2024-04-22] MEDS: Potassium Chloride Oral Tablet 10 MEQ PO (11:12)
[2024-04-22] MEDS: guaiFENesin 600 MG Tablet PO ×2 (11:12→20:08)
[2024-04-22] MEDS: Allopurinol 300 MG Tablet PO (11:12)
[2024-04-22] MEDS: dilTIAZem CD 240 MG Capsule PO ×2 (11:12→20:08)
[2024-04-22] MEDS: Pantoprazole Sodium 40 MG Tablet PO (11:13)
[2024-04-22] MEDS: Dofetilide 250 MCG Capsule 500 MCG PO ×2 (11:13→20:07)
--- NOTE | 2024-04-22 12:44 | PCM.PN.HOSP ---
Subjective Subjective Doing well, no issues overnight Objective Data Objective Data Vital Signs: Vital Signs Temp Pulse Resp BP Pulse Ox O2 Del Method O2 Flow Rate 97.5 F L 80 15 106/76 100 Nasal Cannula 2 04/22/24 11:08 04/22/24 11:08 04/22/24 11:08 04/22/24 11:08 04/22/24 11:08 04/22/24 11:08 04/22/24 11:08 Oxygen Flow Rate (L/min) 2 Oxygen Delivery Method Nasal Cannula Weight: 163 lb 12.855 oz Body Mass Index (BMI) 25.6 Intake & Output: Intake and Output for Last 24 Hours 04/21/24 04/22/24 04/23/24 03:59 03:59 03:59 Intake Total 1709.25 / 1709.25 61.5 / 61.5 Balance 1709.25 / 1709.25 61.5 / 61.5 Lab / Micro Data 04/22/24 06:09 04/22/24 06:09 Labs: Laboratory Results - last 24 hr 04/21/24 15:27: PT 19.5 H, INR 1.7 04/22/24 06:09: WBC 22.5 H, RBC 3.55 L, Hgb 10.6 L, Hct 32.5 L, MCV 91.5, MCH 29.9, MCHC 32.6, RDW Std Deviation 48.5 H, RDW Coeff of Vivek 14.4, Plt Count 246, MPV 10.2, Immature Gran % (Auto) LITHOGRAPHIC PROOFER APPRENTICE, Neut % (Auto) LITHOGRAPHIC PROOFER APPRENTICE, Lymph % (Auto) LITHOGRAPHIC PROOFER APPRENTICE, [place] % (Auto) LITHOGRAPHIC PROOFER APPRENTICE, Eos % (Auto) LITHOGRAPHIC PROOFER APPRENTICE, Baso % (Auto) LITHOGRAPHIC PROOFER APPRENTICE, Absolute Neuts (auto) 20.2 H, Absolute Lymphs (auto) 1.40, Total Counted 100, Neutrophils % (Manual) 90 H, Lymphocytes % (Manual) 6 L, Monocytes % (Manual) 4, Nucleated RBC % 0, Platelet Estimate ADEQUATE, Plt Morphology Comment LARGE, Anisocytosis 1+, PT 15.9 H, INR 1.3, Sodium 129 L, Potassium 3.4 L, Chloride 99, Carbon Dioxide 24.0, Anion Gap 6, BUN 15, Creatinine 0.84, Estim Creat Clear Calc 78.69, Est GFR (MDRD) Af Amer 117, Est GFR (MDRD) Non-Af 97, BUN/Creatinine Ratio 17.9, Glucose 156 H, Calcium 8.6 Micro: Microbiology 04/21/24 02:44 Sputum, Expectorated/Coughed Gram Stain - Final 04/21/24 02:44 Sputum, Expectorated/Coughed Respiratory Culture - Preliminary Appears to be normal respiratory robin. Further studies to follow. 04/21/24 04:37 Stool Stool Occult Blood (JOSE ENRIQUE) - Final Occult Blood Positive 04/20/24 23:45 Mucosa - Nose Respiratory Panel (PCR) - Final 04/20/24 18:33 Mucosa - Nose SARS-CoV-2, Influenza & RSV (PCR) - Final Rhythm Strip Rhythm Strip: Tachycardia Rate: 103 Ectopy: None Physical Exam Narrative General: Alert, Oriented x3, Cooperative, No apparent distress HEENT: Atraumatic, PERRLA, EOMI, Normocephalic Oral: Moist Mucosa Neck: Supple, No JVD Lungs: Diminished, Normal air movement, No rhonchi, No wheeze, No rales Cardiovascular: Regular rate, Regular Rhythm, Normal S1, Normal S2, No murmurs Abdomen: Soft, Non Tender, Non-Distended, No Hepato-splenomegaly Extremities: No edema, Capillary Refill Less than 3 Seconds Skin: No rashes, No breakdown Musculoskeletal: No Tenderness to Palpation of Joints or Extremities Neurological: No focal neurological deficits, Motor Exam 5/5 strength throughout, Sensory exam intact to light touch and pain Psych/Mental Status: Normal Affect, Appropriate Assessment & Plan Assessment/Plan (1) COPD with acute exacerbation: PLAN: Plan 1. Hypoxia secondary to COPD exacerbation ? Continue with steroids ? Continue with breathing treatments ? Sputum cultures are normal robin ? Ambulatory pulse ox today required 4 to 5 L with ambulation and he got significantly short of breath, at rest he was on room air. Will trial him with a dose of IV Lasix this afternoon as he received his morning dose already and retry his amatory pulse ox tomorrow ? Viral panels were negative 2. GI bleed ? Hemoglobin is stable ? EGD was negative for active bleeding, there is chronic gastritis and he has had normal bowel movements now ? INR today is 1.3 given the fact that he did receive vitamin K will restart his Coumadin as it will likely take several days to return to normal 3. Paroxysmal A-fib/essential HTN ? Restart Coumadin ? Continue with his home blood pressure medications ? Blood pressures are currently stable ? Will continue to monitor 4. GERD ? Stable ?Continue with PPI 5. Gout ? Stable ? Continue with allopurinol DVT: Coumadin Charges/Coding Visit Charges Inpatient E&M: 35936 Subs Hosp L2
[2024-04-22] MEDS: Warfarin (BKC) 3 MG Tablet PO (16:06)
--- NOTE | 2024-04-22 17:31 | EX.PCM.PN.GI ---
Subjective Subjective Patient underwent endoscopy yesterday for acute GI bleed. He was discovered to have peptic ulcer disease. He is not having abdominal pain or cramping. His hemoglobin seems to be stable. Objective Data Objective Data Vital Signs: Vital Signs Temp Pulse Resp BP Pulse Ox O2 Del Method O2 Flow Rate 97.6 F L 78 18 96/67 98 Nasal Cannula 2 04/22/24 16:11 04/22/24 16:11 04/22/24 16:11 04/22/24 16:11 04/22/24 16:11 04/22/24 16:11 04/22/24 16:11 Oxygen Flow Rate (L/min) [ 4 AMBULATING with Oxygen #4] Oxygen Flow Rate (L/min) [ 3 AMBULATING with Oxygen #3] Oxygen Flow Rate (L/min) [ 2 AMBULATING with Oxygen #1] Oxygen Flow Rate (L/min) [ 0 AMBULATING on Room Air] Oxygen Flow Rate (L/min) [At 0 REST on Room Air] Oxygen Flow Rate (L/min) 2 Oxygen Delivery Method Nasal Cannula Weight: 163 lb 12.855 oz Body Mass Index (BMI) 25.6 Intake & Output: Intake and Output for Last 24 Hours 04/20/24 04/21/24 04/22/24 23:59 23:59 23:59 Intake Total 1611.58 / 1611.58 159.17 / 159.17 Balance 1611.58 / 1611.58 159.17 / 159.17 Lab / Micro Data 04/22/24 06:09 04/22/24 06:09 Labs: Laboratory Results - last 24 hr 04/22/24 06:09: WBC 22.5 H, RBC 3.55 L, Hgb 10.6 L, Hct 32.5 L, MCV 91.5, MCH 29.9, MCHC 32.6, RDW Std Deviation 48.5 H, RDW Coeff of Vivek 14.4, Plt Count 246, MPV 10.2, Immature Gran % (Auto) STONE POLISHER, Neut % (Auto) STONE POLISHER, Lymph % (Auto) STONE POLISHER, [place] % (Auto) STONE POLISHER, Eos % (Auto) STONE POLISHER, Baso % (Auto) STONE POLISHER, Absolute Neuts (auto) 20.2 H, Absolute Lymphs (auto) 1.40, Total Counted 100, Neutrophils % (Manual) 90 H, Lymphocytes % (Manual) 6 L, Monocytes % (Manual) 4, Nucleated RBC % 0, Platelet Estimate ADEQUATE, Plt Morphology Comment LARGE, Anisocytosis 1+, PT 15.9 H, INR 1.3, Sodium 129 L, Potassium 3.4 L, Chloride 99, Carbon Dioxide 24.0, Anion Gap 6, BUN 15, Creatinine 0.84, Estim Creat Clear Calc 78.69, Est GFR (MDRD) Af Amer 117, Est GFR (MDRD) Non-Af 97, BUN/Creatinine Ratio 17.9, Glucose 156 H, Calcium 8.6 Micro: Microbiology 04/21/24 02:44 Sputum, Expectorated/Coughed Gram Stain - Final 04/21/24 02:44 Sputum, Expectorated/Coughed Respiratory Culture - Preliminary Appears to be normal respiratory robin. Further studies to follow. 04/21/24 04:37 Stool Stool Occult Blood (JOSE ENRIQUE) - Final Occult Blood Positive 04/20/24 23:45 Mucosa - Nose Respiratory Panel (PCR) - Final 04/20/24 18:33 Mucosa - Nose SARS-CoV-2, Influenza & RSV (PCR) - Final Rhythm Strip Rhythm Strip: Tachycardia Rate: 103 Ectopy: None Physical Exam Narrative General: Alert, Oriented x3, Cooperative, No apparent distress HEENT: Atraumatic, PERRLA, EOMI, Normocephalic Oral: Moist Mucosa Neck: Supple, No JVD Lungs: Diminished, Normal air movement, No rhonchi, No wheeze, No rales Cardiovascular: Regular rate, Regular Rhythm, Normal S1, Normal S2, No murmurs Abdomen: Soft, Non Tender, Non-Distended, No Hepato-splenomegaly Extremities: No edema, Capillary Refill Less than 3 Seconds Skin: No rashes, No breakdown Musculoskeletal: No Tenderness to Palpation of Joints or Extremities Neurological: No focal neurological deficits, Motor Exam 5/5 strength throughout, Sensory exam intact to light touch and pain Psych/Mental Status: Normal Affect, Appropriate Assessment & Plan Assessment/Plan (1) COPD with acute exacerbation: PLAN: Plan The patient is a 68 y/o M w/ PMHx: PAF/Flutter status post RFA, COPD, Former tobacco use, Hx VTE (DVT), HTN, HLD, GERD w/ Vergara's esophagus, Gout, Diabetes mellitus type II, PAD status post peripheral artery angioplasty with COPD exacerbation, hemoptysis and hematemesis. Differential diagnosis for his hematemesis is cough induced reflux causing erosive esophagitis, Nyla-Schmidt tear, peptic ulcer disease secondary to steroids from recent COPD exacerbation treatment. Recommend fix INR. He will undergo an upper endoscopy. He was explained alternatives, risk, benefits including not withstanding bleeding, infection, sepsis, perforation, need for emergent urgent . He will have an ASA of 3. Findings from his EGD: The examined esophagus was normal. Vergara's esophagus was present in the lower third of the esophagus. A medium-sized hiatal hernia was present. Localized severe inflammation characterized by erosions, erythema, friability and granularity was found in the cardia. No gross lesions were noted in the duodenal bulb. Impression: - Normal esophagus. - Vergara's esophagus. - Medium-sized hiatal hernia. - Chronic gastritis. - No gross lesions in the duodenal bulb. - No specimens collected. Recommendation: - Return patient to [facility] for ongoing care. - Resume regular diet. - Continue present medications. Charges/Coding Multi Select Codes Visit Charges Visit Charges: 85023 Subs Hosp L3
[2024-04-23 02:30] VITALS: BP 92/67; PULSE 73; RESP 18; TEMP 36.4; O2SAT 95
[2024-04-23 06:00] VITALS: BMI 26.2
[2024-04-23] MEDS: Furosemide 40 MG/4 ML Vial IV (06:10)
[2024-04-23] MEDS: 0.9% Saline Lock 10 ML Syringe IV ×3 (06:54→14:29)
[2024-04-23 07:02] VITALS: PULSE 71; RESP 20; O2SAT 93
[2024-04-23] MEDS: Budesonide Respules 0.5 MG/2 ML AMPUL.NEB. INHALATION (07:02)
[2024-04-23 07:09] LABS: Absolute Lymphocyte Count 0.63 X10^3/uL (0.83-4.51); Absolute Neutrophil Count 17.6 X10^3/uL (2.0-7.7); Basophil# 0.02 X10^3/uL; Basophil% 0.1 % (0-1); Hemoglobin 10.3 g/dL (13.0-16.5); Lymphocyte # 0.63 X10^3/ul (0.83-4.51); Lymphocyte % 3.3 % (19-41); Mean Corp Hgb Conc 33.2 g/dL (32-36); Mean Corpuscular Hgb 30.6 pg (27.0-32.0); Mean Platelet Vol. 10.3 fl (6.2-12.0); Monocyte# 0.53 X10^3/uL; Monocyte% 2.8 % (0-10); NRBC Flagged by Analyzer 0 % (0-5); Neutrophil # 17.62 X10^3/uL (2.7-7.7); Neutrophil % 92.6 % (47-70); Platelet Count 271 K/mm3 (150-450); RBC Distribution Width CV 14.3 % (11.6-14.6); RBC Distribution Width SD 47.8 fl (35.1-43.9); Red Blood Count 3.37 M/mm3 (4.6-6.2)
[2024-04-23 07:41] LABS: International Normalized Ratio 1.4
[2024-04-23 08:01] LABS: Anion Gap 8 (5-15); BUN 22 mg/dL (7-18); BUN/Creat Ratio 24.1 RATIO (10-20); Calcium,Total 8.9 mg/dL (8.5-10.1); Chloride 100 mmol/L (98-107); Creatinine, Serum 0.91 mg/dL (0.70-1.30); EST Glomerular Filtration Rate 88 mL/min (>60); Est Glom Filt Rate - Afr Amer 106 mL/min (>60); Estimated Creatinine Clearance 72.64 ml/min; Glucose 155 mg/dL (74-106); Potassium 3.7 mmol/L (3.5-5.1); Sodium Level 132 mmol/L (136-145)
[2024-04-23 08:47] VITALS: BP 107/73; PULSE 77; RESP 16; TEMP 36.4; O2SAT 99
[2024-04-23 08:48] VITALS: O2SAT 97
[2024-04-23] MEDS: Potassium Chloride Oral Tablet 10 MEQ PO (08:53)
[2024-04-23] MEDS: Dofetilide 250 MCG Capsule 500 MCG PO (08:53)
[2024-04-23] MEDS: Allopurinol 300 MG Tablet PO (08:53)
[2024-04-23] MEDS: dilTIAZem CD 240 MG Capsule PO (08:53)
[2024-04-23] MEDS: guaiFENesin 600 MG Tablet PO (08:53)
[2024-04-23] MEDS: Pantoprazole Sodium 40 MG Tablet PO (08:54)
[2024-04-23 11:48] VITALS: O2SAT 86; O2SAT 87; O2SAT 90; O2SAT 95
--- NOTE | 2024-04-23 13:19 | DCINST_ITS ---
Discharge Instructions Diet Discharge Diet: Low fat / Low cholesterol Activity Discharge Activity: Return to Normal Activity Dressing / Incision Call your doctor if you observe: Fever of 101 or Higher, Shortness of breath, Dizziness, Fainting spells, Swelling in the ankles, Chest pain and Increased palpitations (irregular heartbeat) Follow Up Care Test Results: Test results from this visit will be discussed in further detail at your follow- up appointment, if applicable. Discharge Plan Admission Admit Date/Time: 04/20/24 21:39 Attending Provider: Dionicio Campbell Primary Care Provider: Adriel Pike Consulting Providers: Glory Peace Instructions Additional Instructions / Restrictions: Follow-up with your PCP in 3 to 5 days to monitor lab work including INR and hemoglobin. Discharge Orders/Prescriptions Prescriptions: New prednisone 10 mg tablet 10 mg PO DAILY Qty: 32 0RF Rx Instructions: Take 4 tablets daily for 3 days then 3 tablets daily for 3 days then 2 tablets daily for 3 days then 1 tablet daily for 3 days then half tablet daily for 4 days Continued omega-3 fatty acids 1,000 mg capsule 1,000 mg PO DAILY furosemide 40 mg tablet 40 mg PO DAILY omeprazole 20 mg capsule,delayed release(DR/EC) 20 mg PO DAILY pantoprazole 40 mg tablet,delayed release (DR/EC) 40 mg PO BID allopurinol 300 mg tablet 300 mg PO DAILY cholecalciferol (vitamin D3) 50 mcg (2,000 unit) capsule 50 mcg PO DAILY guaifenesin [Mucinex] 600 mg Tablet Extended Release 12hr 600 mg PO BID Qty: 10 0RF warfarin 2 mg tablet 3 mg PO DAILY Qty: 30 0RF Protocol: Dose Management Condition: Sunday Dose/Route: 0 mg Instruction: 0 tablets Condition: Sunday Dose/Route: 3 mg Instruction: 1.5 x 2 mg tablets Condition: Sunday Dose/Route: 3 mg Instruction: 1.5 x 2 mg tablets Condition: Sunday Dose/Route: 0 mg Instruction: 0 tablets Condition: Dose/Route: 0 mg Instruction: 0 tablets Condition: Sunday Dose/Route: 0 mg Instruction: 0 tablets Condition: Sunday Dose/Route: 0 mg Instruction: 0 tablets Protocol Text: Adjustment Start Date: 04/10/24 INR Value: 5.3 INR Date: 04/09/24 Recheck Date: 04/17/24 diltiazem HCl [Cardizem CD] 240 mg capsule,extended release 24hr 240 mg PO BID Qty: 60 0RF dofetilide 500 mcg capsule 500 mcg PO BID Qty: 180 3RF potassium chloride 10 mEq tablet,ER particles/crystals 10 meq PO DAILY Qty: 90 3RF Prolia 60 mg/mL syringe 60 mg subcut [id number] Qty: 1 1RF albuterol sulfate 90 mcg/actuation HFA aerosol inhaler 2 puff inhalation Q6H PRN (Reason: shortness of breath or wheezing) Qty: 8.5 6RF Breztri Aerosphere 160-9-4.8 mcg/actuation HFA aerosol inhaler 2 inh inhalation BID Qty: 10.7 6RF Referrals / Follow Up: Adriel Pike MD [Primary Care Provider] - Within 1 Week Dash Uriarte DO [Med Staff - Active Staff] - 04/29/24 10:45 am (Appointment is with NATHAN Goldstein. ) Disposition Disposition (needs filled in before D/C Order can be placed): Home, Self Care
--- NOTE | 2024-04-23 13:19 | PCM.PN.BLA ---
Progress Note I have reviewed the oxygen testing, and this patient qualifies for the home equipment and portability. The patient is mobile in the home and the community.
[2024-04-23 14:27] VITALS: BP 104/66; PULSE 61; RESP 16; TEMP 36.4; O2SAT 94
--- NOTE | 2024-04-23 14:31 | CASEMGMT ---
Patient has order for discharge. Patient qualifies for home oxygen, script received. RN CM sent referral [facility], preferred provider. RN CM to discuss needs at discharge and to update regarding oxygen setup and CCN referral. RN CM provided CCN information. Patient denied further needs or concerns. Patient had no further questions. RN CM updated discharge plan.
--- NOTE | 2024-04-23 15:30 | CASEMGMT ---
Social Work SW met with pt to discuss advance directives. Pt is interested in completing documents but does not know who he would name as HCPOA. SW provided pt with Advance Care Planning Booklet You Have a Choice and an Advance Directive Rack Card. Pt aware that when he has chosen a medical decision maker, he can contact SW to set up an appointment with SW to complete documents. Pt expressing understanding. JEANNETTE Islas
--- NOTE | 2024-04-23 16:45 | PCM.DC.SUM ---
Providers Date of Admission: 04/20/24 Primary Care Physician: Adriel Pike MD Consultations 04/21/24 06:27 Consult: Gastroenterology Routine Consulting Provider: Vidhya Gastroenter[facility] Reason for Consult: Acute anemia, + guiac, ? GI bleed EMERGENT Consult: No MD Notified: Yes Date Notified: 04/21/24 Time Notified: 06:27 Method of Notification: Text Reason For Visit: HYPOXIA COPD EXACERBATION Diagnosis Discharge Diagnosis (1) COPD with acute exacerbation: Status: Chronic Code(s): J44.1 - Chronic obstructive pulmonary disease with (acute) exacerbation Medications at Discharge Home Medications dofetilide 500 mcg capsule 500 mcg PO BID heart #180 caps 09/26/23 potassium chloride 10 mEq tablet,extended release(part/cryst) 10 meq PO DAILY supplement #90 tabs 09/26/23 denosumab 60 mg/mL subcutaneous syringe (Prolia) 60 mg subcut [id number] osteoperosis #1 mL 11/29/23 albuterol sulfate 90 mcg/actuation aerosol inhaler 2 puff inhalation Q6H PRN shortness of breath or wheezing #8.5 grams 01/28/24 furosemide 40 mg tablet 40 mg PO DAILY edema 02/28/24 omega-3 fatty acids 1,000 mg capsule 1,000 mg PO DAILY supplement 02/28/24 omeprazole 20 mg capsule,delayed release 20 mg PO DAILY acid reflux 02/28/24 budesonide 160 mcg-glycopyr 9 mcg-formot 4.8 mcg/actuation HFA inhaler (Breztri Aerosphere) 2 inh inhalation BID shortness of breath #10.7 grams 03/12/24 allopurinol 300 mg tablet 300 mg PO DAILY 04/07/24 cholecalciferol (vitamin D3) 50 mcg (2,000 unit) capsule 50 mcg PO DAILY supplement 04/07/24 pantoprazole 40 mg tablet,delayed release 40 mg PO BID gerd 04/07/24 guaifenesin 600 mg tablet, extended release 12 hr (Mucinex) 600 mg PO BID #10 tabs 04/09/24 warfarin 2 mg tablet 3 mg PO DAILY blood thinner #30 tabs 04/09/24 diltiazem HCl 240 mg capsule,extended release 24 hr (Cardizem CD) 240 mg PO BID #60 caps 04/15/24 prednisone 10 mg tablet 10 mg PO DAILY #32 tabs 04/23/24 Hospital Course Operations None Procedures EGD Summary of Care Provided Minutes Spent on Discharge: 37 Hospital Course: Per HPI: The patient is a 68 y/o M w/ PMHx: PAF/Flutter status post RFA, COPD, Former tobacco use, Hx VTE (DVT), HTN, HLD, GERD w/ Vergara's esophagus, Gout, Diabetes mellitus type II, PAD status post peripheral artery angioplasty, recent 04/09/2024 discharge following evaluation and treatment of pneumonia treated with Rocephin and doxycycline transition to completion regimen of doxycycline and Augmentin therapy with concurrently noted hemoptysis at that time with CT demonstrating a left upper lobe infiltrate as well as additionally a 3.9 cm density in the right upper lobe returning to the ED on 04/15/24 with palpitations at that time with administration of IV fluids and clinical improvement with increase of his Cardizem to 240 mg p.o. twice daily with plan follow-up outpatient with cardiology who now re-presents to the [facility] ED on 04/20/24 with history of worsening dyspnea with hypoxia recently treated for pneumonia noted to decrease to 82% at home on room air prompting EMS call. He notes that the evening prior he became very diaphoretic as well. He denies any specific fever or chills but notes ongoing coughing, occasional productive sputum and dyspnea worse with exertion as well as lymphadenopathy. Workup in the ED included T96.8 Temporally, heart rate 107, BP 125/72, respiratory rate 26, 92% on room air eventually dropping down to 88% improving with most recent vital signs heart rate 103, BP 108/77, respiratory rate 18, 93% on 3 L nasal cannula, CBC with WC 14.7, 11.3, MCV 90, platelet 223 with left shift and lymphopenia, coags with INR elevated 5.6, BMP with sodium 133, potassium 2.9, chloride 97, glucose 162, troponin 5, BNP 75.4, chest x-ray with no acute cardiopulmonary findings with interstitial fibrotic changes of the lungs, rapid SARS COVID/influenza/RSV PCR negative, EKG with tachycardia possibly sinus tach versus atrial flutter, uncertain. In the ED patient ministered DuoNeb therapy as well as Solu-Medrol 125 mg IV x 1. Hospital Course: 1. Hypoxia secondary to COPD exacerbation?68-year-old male presented to the hospital with increasing shortness of breath, he was recently treated for bacterial pneumonia with Rocephin and transition to doxycycline and Augmentin on discharge. During this admission he was started on steroids as well as breathing treatments, sputum cultures demonstrated normal robin and viral panels were negative. He did have an amatory pulse ox on the day prior to discharge and he required 4 to 5 L with ambulation so he was given a dose of IV Lasix this morning and on repeat amatory pulse ox only needed 3 L with ambulation and room air at rest. I discussed with him the plan for discharge today he expressed understanding of the risk methods going home and would like to go home today. Will plan on a short steroid taper. I have reviewed the oxygen testing, and this patient qualifies for the home equipment and portability. The patient is mobile in the home and the community. 2. GI bleed?he did have a drop in his hemoglobin down in the setting of an elevated INR, during his previous hospitalization in March he had a hemoglobin of 15 and today on discharge she had a hemoglobin of 10.3. He had an EGD which demonstrated chronic gastritis and was continued on a PPI. He states that he has not seen any more blood in his stools during his hospitalization. He was given vitamin K and his INR corrected to 1.3 so he was restarted on Coumadin on discharge as it will take several days to become therapeutic again at which point he should likely no longer be bleeding 3. Paroxysmal A-fib, essential hypertension, GERD, gout are all chronic medical conditions which complicate his care. His home medications were continued where appropriate Physical Exam Narrative General: Alert, Oriented x3, Cooperative, No apparent distress HEENT: Atraumatic, PERRLA, EOMI, Normocephalic Oral: Moist Mucosa Neck: Supple, No JVD Lungs: Diminished, Normal air movement, No rhonchi, No wheeze, No rales Cardiovascular: Regular rate, Regular Rhythm, Normal S1, Normal S2, No murmurs Abdomen: Soft, Non Tender, Non-Distended, No Hepato-splenomegaly Extremities: No edema, Capillary Refill Less than 3 Seconds Skin: No rashes, No breakdown Musculoskeletal: No Tenderness to Palpation of Joints or Extremities Neurological: No focal neurological deficits, Motor Exam 5/5 strength throughout, Sensory exam intact to light touch and pain Psych/Mental Status: Normal Affect, Appropriate Weight / BMI Weight Weight: 166 lb 10.711 oz Body Mass Index (BMI) 26.2 ABG / Lab / Microbiology Data 04/23/24 06:29 04/23/24 06:29 Laboratory: Laboratory Results - last 24 hr 04/23/24 06:29: WBC 19.0 H, RBC 3.37 L, Hgb 10.3 L, Hct 31.0 L, MCV 92.0, MCH 30.6, MCHC 33.2, RDW Std Deviation 47.8 H, RDW Coeff of Vivek 14.3, Plt Count 271, MPV 10.3, Immature Gran % (Auto) 1.200 H, Neut % (Auto) 92.6 H, Lymph % (Auto) 3.3 L, [place] % (Auto) 2.8, Eos % (Auto) 0.0, Baso % (Auto) 0.1, Absolute Neuts (auto) 17.6 H, Absolute Lymphs (auto) 0.63 L, Nucleated RBC % 0, PT 17.0 H, INR 1.4, Sodium 132 L, Potassium 3.7, Chloride 100, Carbon Dioxide 24.0, Anion Gap 8, BUN 22 H, Creatinine 0.91, Estim Creat Clear Calc 72.64, Est GFR (MDRD) Af Amer 106, Est GFR (MDRD) Non-Af 88, BUN/Creatinine Ratio 24.1 H, Glucose 155 H, Calcium 8.9 Microbiology: Microbiology 04/21/24 02:44 Sputum, Expectorated/Coughed Gram Stain - Final 04/21/24 02:44 Sputum, Expectorated/Coughed Respiratory Culture - Final Mixed normal respiratory robin. No Streptococcus pneumoniae, beta-hemolytic Streptococcus or Staphylococcus aureus isolated. 04/21/24 04:37 Stool Stool Occult Blood (JOSE ENRIQUE) - Final Occult Blood Positive 04/20/24 23:45 Mucosa - Nose Respiratory Panel (PCR) - Final 04/20/24 18:33 Mucosa - Nose SARS-CoV-2, Influenza & RSV (PCR) - Final D/C Instructions Discharge Diet: Low fat / Low cholesterol Call your doctor if you observe: Fever of 101 or Higher, Shortness of breath, Dizziness, Fainting spells, Swelling in the ankles, Chest pain and Increased palpitations (irregular heartbeat) Meaningful Use Info Meaningful Use Meaningful Use Diagnoses (Choose all that apply): None applicable Ischemic Stroke Statin Dosing Therapy Reference: STATIN DOSE THERAPY REFERENCE: * Patients > 75 years receive moderate or high dose statin therapy. * Patients 75 years or YOUNGER should receive HIGH intensity statin dose unless contraindicated. You will be required to document reason for non-treatment if statin daily dose does not meet guidelines. HIGH DOSE STATIN THERAPY DAILY Atorvastatin > than or = to 40 mg Rosuvastatin > than or = to 20 mg Amlodipine + Atorvastatin > than or = to 2.5/40 mg Ezetimibe + Simvastatin 10/80 mg Simvastatin 80mg Discharge Plan Admission Admit Date/Time: 04/20/24 21:39 Attending Provider: Dionicio Campbell Primary Care Provider: Adriel Pike Consulting Providers: Glory Peace Instructions Additional Instructions / Restrictions: Follow-up with your PCP in 3 to 5 days to monitor lab work including INR and hemoglobin. Discharge Orders/Prescriptions Prescriptions: New prednisone 10 mg tablet 10 mg PO DAILY Qty: 32 0RF Rx Instructions: Take 4 tablets daily for 3 days then 3 tablets daily for 3 days then 2 tablets daily for 3 days then 1 tablet daily for 3 days then half tablet daily for 4 days Continued omega-3 fatty acids 1,000 mg capsule 1,000 mg PO DAILY furosemide 40 mg tablet 40 mg PO DAILY omeprazole 20 mg capsule,delayed release(DR/EC) 20 mg PO DAILY pantoprazole 40 mg tablet,delayed release (DR/EC) 40 mg PO BID allopurinol 300 mg tablet 300 mg PO DAILY cholecalciferol (vitamin D3) 50 mcg (2,000 unit) capsule 50 mcg PO DAILY guaifenesin [Mucinex] 600 mg Tablet Extended Release 12hr 600 mg PO BID Qty: 10 0RF warfarin 2 mg tablet 3 mg PO DAILY Qty: 30 0RF Protocol: Dose Management Condition: Sunday Dose/Route: 0 mg Instruction: 0 tablets Condition: Sunday Dose/Route: 3 mg Instruction: 1.5 x 2 mg tablets Condition: Sunday Dose/Route: 3 mg Instruction: 1.5 x 2 mg tablets Condition: Sunday Dose/Route: 0 mg Instruction: 0 tablets Condition: Dose/Route: 0 mg Instruction: 0 tablets Condition: Sunday Dose/Route: 0 mg Instruction: 0 tablets Condition: Sunday Dose/Route: 0 mg Instruction: 0 tablets Protocol Text: Adjustment Start Date: 04/10/24 INR Value: 5.3 INR Date: 04/09/24 Recheck Date: 04/17/24 diltiazem HCl [Cardizem CD] 240 mg capsule,extended release 24hr 240 mg PO BID Qty: 60 0RF dofetilide 500 mcg capsule 500 mcg PO BID Qty: 180 3RF potassium chloride 10 mEq tablet,ER particles/crystals 10 meq PO DAILY Qty: 90 3RF Prolia 60 mg/mL syringe 60 mg subcut [id number] Qty: 1 1RF albuterol sulfate 90 mcg/actuation HFA aerosol inhaler 2 puff inhalation Q6H PRN (Reason: shortness of breath or wheezing) Qty: 8.5 6RF Breztri Aerosphere 160-9-4.8 mcg/actuation HFA aerosol inhaler 2 inh inhalation BID Qty: 10.7 6RF Referrals / Follow Up: Adriel Pike MD [Primary Care Provider] - 05/02/24 8:20 am Dash Uriarte DO [Med Staff - Active Staff] - 04/29/24 10:45 am (Appointment is with NATHAN Goldstein. ) Disposition Disposition (needs filled in before D/C Order can be placed): Home, Self Care Charges/Coding Visit Charges Inpatient E&M: 97506 Disch Hosp >30min
--- NOTE | 2024-05-08 10:27 | CCN.REFER ---
CCN met with patient, and patient is declining CCN services.
== END 2024-04-23 15:21 | disposition home or self-care (01) | DRG 190 ==
LOC: ED 21:18 → PCU 22:32
PROVIDERS: Internal Medicine Gastroenterology; Admitting Provider Family Medicine; Emergency Provider Emergency Medicine; PCP Family Medicine; Visit Provider Family Medicine
PROC: 0DJ08ZZ Inspection of Upper Intestinal Tract, Via Natural or Artificial Opening Endoscopic (ICD-10-PCS; CPT 43235; principal; 2024-04-21 15:55)
DX: J44.1 Chronic obstructive pulmonary disease with (acute) exacerbation (principal); K25.4 Chronic or unspecified gastric ulcer with hemorrhage; E87.1 Hypo-osmolality and hyponatremia; R04.2 Hemoptysis; E11.51 Type 2 diabetes mellitus with diabetic peripheral angiopathy without gangrene; J43.9 Emphysema, unspecified; I10 Essential (primary) hypertension; I48.0 Paroxysmal atrial fibrillation; E78.5 Hyperlipidemia, unspecified; K21.9 Gastro-esophageal reflux disease without esophagitis; E87.6 Hypokalemia; K22.70 Barrett's esophagus without dysplasia; K29.50 Unspecified chronic gastritis without bleeding; K44.9 Diaphragmatic hernia without obstruction or gangrene; M1A.9XX0 Chronic gout, unspecified, without tophus (tophi); R79.1 Abnormal coagulation profile; R09.02 Hypoxemia; Z23 Encounter for immunization; Z11.52 Encounter for screening for COVID-19; Z79.01 Long term (current) use of anticoagulants; Z79.899 Other long term (current) drug therapy; Z87.891 Personal history of nicotine dependence; Z98.62 Peripheral vascular angioplasty status
CPT/HCPCS: 36415; 71046; 80048; 80053; 82274; 82728; 83540; 83550; 83735; 83880; 84145; 84484; 85025; 85610; 87070; 87205; 87631; 87633; 90662; 93005; 94640; 94668; 99285; J7030; J7040; J7120; A4216; J1940; J2405; J3490

== ENCOUNTER 2024-04-28 11:05 | Outpatient (RCR) | payer MEDICARE, MEDICAID, SELFPAY ==
[2024-03-29 22:02] VITALS: BMI 24.1
[2024-04-28 12:19] LABS: International Normalized Ratio 4.3; Prothrombin Time (Protime)PT. 40.9 SECONDS (11.7-14.9)
== END 2024-04-28 18:00 | disposition home or self-care (01) ==
LOC: MTLAB 11:05
PROVIDERS: Family Provider Family Medicine; PCP Family Medicine; Referring Provider Nurse Practitioner Family; Visit Provider Nurse Practitioner Family
DX: I48.0 Paroxysmal atrial fibrillation (principal); Z79.01 Long term (current) use of anticoagulants
CPT/HCPCS: 36415; 85610

== ENCOUNTER 2024-05-08 07:37 | Outpatient (RCR) | payer MEDICARE, MEDICAID, SELFPAY ==
[2024-04-29 03:24] VITALS: BMI 24.1
[2024-05-05 10:37] LABS: Prothrombin Time (Protime)PT. 59.5 SECONDS (11.7-14.9)
== END 2024-05-08 18:00 | disposition home or self-care (01) ==
LOC: MTLAB 07:37
PROVIDERS: Family Provider Family Medicine; PCP Family Medicine; Referring Provider Nurse Practitioner Family; Visit Provider Nurse Practitioner Family
DX: I48.0 Paroxysmal atrial fibrillation (principal); Z79.01 Long term (current) use of anticoagulants
CPT/HCPCS: 36415; 85610

== ENCOUNTER 2024-05-10 16:21 | Inpatient (IN) | payer MEDICARE, MEDICAID, SELFPAY ==
[2024-05-10] VITALS (15 sets, daily range): BP systolic 92–128; BP diastolic 58–76; PULSE 62–90; RESP 18–25; TEMP 36.2–37.3; O2SAT 4–95; BMI 25.2; BMI 23.4
--- NOTE | 2024-05-10 16:54 | EKG12_ITS ---
Test Reason : SOB Blood Pressure : / mmHG Vent. Rate : 083 BPM Atrial Rate : 083 BPM P-R Int : 336 ms QRS Dur : 080 ms QT Int : 374 ms P-R-T Axes : 087 080 090 degrees QTc Int : 439 ms Sinus rhythm with 1st degree A-V block with Premature atrial complexes Septal infarct (cited on or before 09-AUG-2014) Abnormal ECG Confirmed by Peter Barba ([id number]), make up editor JOSE PEACE ([id number]) on 05/12/2024 9:36:05 AM Referred By: Confirmed By:Peter Barba
[2024-05-10 17:11] LABS: Absolute Lymphocyte Count 0.83 X10^3/uL (0.83-4.51); Absolute Neutrophil Count 9.7 X10^3/uL (2.0-7.7); Basophil# 0.02 X10^3/uL; Basophil% 0.2 % (0-1); Eosinophil# 0.04 X10^3/uL; Eosinophils% 0.4 % (0-5); Lymphocyte # 0.83 X10^3/ul (0.83-4.51); Lymphocyte % 7.4 % (19-41); Mean Corp Hgb Conc 33.3 g/dL (32-36); Mean Corpuscular Volume 92.9 fL (80-94); Mean Platelet Vol. 9.4 fl (6.2-12.0); Monocyte# 0.54 X10^3/uL; Monocyte% 4.8 % (0-10); NRBC Flagged by Analyzer 0 % (0-5); Neutrophil # 9.74 X10^3/uL (2.7-7.7); Neutrophil % 86.5 % (47-70); Platelet Count 187 K/mm3 (150-450); RBC Distribution Width CV 14.8 % (11.6-14.6); RBC Distribution Width SD 50.5 fl (35.1-43.9); Red Blood Count 3.23 M/mm3 (4.6-6.2); White Blood Count 11.3 K/mm3 (4.4-11.0)
--- NOTE | 2024-05-10 17:12 | RAD_ITS ---
STUDY: X-RAY CHEST REASON FOR EXAM: Male, 68 years old. chest pain TECHNIQUE: PA and lateral views of the chest. COMPARISON: 04/20/2024 FINDINGS: There are interstitial fibrotic changes of the lungs. No superimposed alveolar past within the lungs to suggest pneumonia or atelectasis. There is no demonstrated pleural abnormality. Normal size heart. Normal mediastinum and pam. Normal visualized pulmonary arteries. Normal visualized aortic arch and descending thoracic aorta. Normal visualized thoracic spine. Normal visualized ribs, clavicles, and shoulders. There is no demonstrated abnormality of the visualized soft tissue structures of the upper abdomen. RAD/Chest PA and Lateral IMPRESSION: No change from 04/20/2024. Electronically Signed: Francisco Shane MD at 18:01 EDT ,
[2024-05-10 17:33] LABS: BNP,B-Type NATRIURETIC PEPTIDE 154.8 pg/mL (0-100)
[2024-05-10] MEDS: MethylPREDNISolone 125 MG/2 ML Vial IV (17:48)
[2024-05-10] MEDS: Ceftriaxone 1 GM/50 ML BAG IV (17:54)
[2024-05-10 18:20] LABS: Anion Gap 9 (5-15); BUN 10 mg/dL (7-18); BUN/Creat Ratio 10.2 RATIO (10-20); Calcium,Total 8.3 mg/dL (8.5-10.1); Chloride 103 mmol/L (98-107); Creatinine, Serum 0.98 mg/dL (0.70-1.30); EST Glomerular Filtration Rate 80 mL/min (>60); Est Glom Filt Rate - Afr Amer 97 mL/min (>60); Estimated Creatinine Clearance 67.45 ml/min; Glucose 153 mg/dL (74-106); Potassium 2.5 mmol/L (3.5-5.1); Sodium Level 138 mmol/L (136-145); Troponin-I HS 21 pg/mL (3.0-78.0)
[2024-05-10] MEDS: Azithromycin 500 MG in Dextrose 5%-Water (250mL Bag) 250 ML 250 MG IV (18:35)
[2024-05-10] MEDS: Potassium Chloride Oral Soln 20 MEQ/15 ML UDC 40 MEQ PO (18:37)
--- NOTE | 2024-05-10 18:44 | EX.ED.DYSGE1 ---
HPI History of Present Illness Chief Complaint: Shortness of Breath Narrative Narrative: Patient is a 68-year-old male with a past medical history of DVT, atrial fibrillation on warfarin, GERD, type 2 diabetes, hypertension, COPD chronically on 2 L nasal cannula who presented to the emergency department with a chief complaint of chills and shortness of breath. Patient states that on he finished his course of antibiotics for pneumonia sounds like this was Augmentin. Patient states that on night he started having chills that progressively worsened throughout the rest of the week and into the weekend. He states that he has had worsening shortness of breath as well. According to staff the patient was noted to be hypoxic on his 2 L nasal cannula and they increased his oxygen requirement. Patient states that he does have a cough but states that is not coughing a ton of stuff up. [facility] Medical History History of echocardiogram DVT (deep venous thrombosis) Injury of back History of hiatal hernia Shortness of breath on exertion Former smoker Leg cramps Cardiology follow-up encounter Pulmonary emphysema Hyperlipidemia Colon polyps Barretts esophagus Scabies Atrial fibrillation and flutter Osteoporosis Essential hypertension History of DVT (deep vein thrombosis) Paroxysmal atrial tachycardia Paroxysmal atrial fibrillation GERD (gastroesophageal reflux disease) Gout Type 2 diabetes mellitus Hypertension Tachycardia shelter (current) use of anticoagulants Near syncope Bradycardia Tobacco dependence Afib Home Medications ?Medication ?Instructions ?Recorded ?Last Taken ?Type dofetilide 500 mcg capsule 500 mcg PO BID heart #180 caps 09/26/23 04/07/24 Rx potassium chloride 10 mEq 10 meq PO DAILY supplement #90 09/26/23 04/07/24 Rx tablet,extended release(part/cryst) tabs denosumab 60 mg/mL subcutaneous 60 mg subcut [id number] osteoperosis 11/29/23 Unknown Rx syringe (Prolia) #1 mL albuterol sulfate 90 mcg/actuation 2 puff inhalation Q6H PRN 01/28/24 04/07/24 Rx aerosol inhaler shortness of breath or wheezing #8.5 grams furosemide 40 mg tablet 40 mg PO DAILY edema 02/28/24 04/07/24 History omega-3 fatty acids 1,000 mg 1,000 mg PO DAILY supplement 02/28/24 04/07/24 History capsule omeprazole 20 mg capsule,delayed 20 mg PO DAILY acid reflux 02/28/24 04/07/24 History release budesonide 160 mcg-glycopyr 9 2 inh inhalation BID shortness of 03/12/24 04/07/24 Rx mcg-formot 4.8 mcg/actuation HFA breath #10.7 grams inhaler (Breztri Aerosphere) allopurinol 300 mg tablet 300 mg PO DAILY 04/07/24 04/07/24 History cholecalciferol (vitamin D3) 50 50 mcg PO DAILY supplement 04/07/24 04/07/24 History mcg (2,000 unit) capsule pantoprazole 40 mg tablet,delayed 40 mg PO BID gerd 04/07/24 04/07/24 History release diltiazem HCl 240 mg 240 mg PO BID #60 caps 04/15/24 Unknown Rx capsule,extended release 24 hr (Cardizem CD) prednisone 10 mg tablet 10 mg PO DAILY #32 tabs 04/23/24 Unknown Rx warfarin 3 mg tablet 3 mg PO DAILY blood thinner #30 04/24/24 Unknown Rx tabs warfarin 2 mg tablet 2 mg PO QDAY #30 tabs 04/28/24 Unknown Rx amoxicillin 875 mg-potassium 1 tab PO BID #20 tabs 04/29/24 Unknown Rx clavulanate 125 mg tablet guaifenesin 1,200 mg tablet, 1,200 mg PO Q12H #60 tabs 04/29/24 Unknown Rx extended release 12 hr Allergy/AdvReac Type Severity Reaction Status Date / Time secobarbital sodium (From Allergy Unknown Verified 05/10/24 16:22 [place]) venom-honey bee (bee venom Allergy Anaphylaxis Verified 05/10/24 16:22 (honey bee)) Family History Mother Diabetes Hypertension Myocardial infarction CAD (coronary artery disease) Father Hypertension Heart disease Diabetes Myocardial infarction CAD (coronary artery disease) Surgical History History of esophagogastroduodenoscopy (EGD) History of hip replacement Status post peripheral artery angioplasty History of left hip replacement History of cardiac radiofrequency ablation (~04/2008) Social History household members: other details: His mother lives with him. Smoking Status: Former smoker Tobacco: How many years used: 50 how long ago did patient quit smokin alcohol intake: current alcohol intake frequency: a few times a month Alcohol type: beer substance use type: does not use caffeine: No ROS ROS ED ROS Narrative Constitutional: Complains of chills as noted above denies any fevers, headaches, lightness, dizziness Eyes: Denies change in vision double vision blurry vision Cardiovascular: Denies chest pain or palpitations Respiratory: Complains of cough and shortness of breath as noted above Abdomen: Denies abdominal pain nausea vomit diarrhea : Denies any painful urination, hematuria and polyuria Neurological: Denies any numbness, weakness, tingling Musculoskeletal: Denies back pain Skin: Denies rashes or lesions EXAM Physical Exam Narrative Exam Narrative: General: Patient was lying in bed rest comfortably did not appear to be in acute distress Head: Atraumatic, normocephalic Eyes: PERRL bilaterally, EOMI bilateral, no conjunctival injection noted Neck: Soft, supple, trach midline Cardiovascular: Regular rate and rhythm no murmurs gallops rubs noted Respiratory: Patient has end expiratory wheezing noted on exam Abdomen: Soft, nondistended, nontender to palpation, bowel sounds present x 4 Extremities: +5/5 strength noted in the bilateral lower extremities, no pedal edema on exam, radial pulses +2/4 in the bilateral per extremities Neurological: Patient was following commands knew that he was at [facility] year is 2023 Skin: Warm, dry, intact Const Vital Signs: 05/10/24 16:22 05/10/24 16:22 05/10/24 16:52 Temperature 98.3 F 99.2 F H Temperature Source Oral Oral Pulse Rate 90 82 Respiratory Rate 25 H 18 Respiratory Effort Respiratory Depth Respiratory Pattern Blood Pressure 108/65 108/61 Blood Pressure Mean 79 76 Pulse Ox 78 95 93 Oxygen Delivery Method Room Air Nasal Cannula Nasal Cannula Oxygen Flow Rate (L/min) 5 4 05/10/24 16:52 05/10/24 16:56 05/10/24 17:29 Temperature Temperature Source Pulse Rate Respiratory Rate Respiratory Effort Normal Non-Labored Respiratory Depth Normal Respiratory Pattern Normal Blood Pressure 128/73 H Blood Pressure Mean 91 Pulse Ox 4 Oxygen Delivery Method Nasal Cannula Nasal Cannula Oxygen Flow Rate (L/min) 4 05/10/24 17:30 10/12/24 17:59 Temperature 99.0 F 98.8 F Temperature Source Oral Oral Pulse Rate 79 69 Respiratory Rate 18 18 Respiratory Effort Respiratory Depth Respiratory Pattern Blood Pressure 128/73 H 107/59 L Blood Pressure Mean 91 75 Pulse Ox 93 93 Oxygen Delivery Method Nasal Cannula Nasal Cannula Oxygen Flow Rate (L/min) 4 4 MDM MDM MDM Narrative Medical decision making narrative: Patient is a 68-year-old male who presented to the emergency department with a chief complaint of cough, shortness of breath and chills. Patient will have a workup performed here on the differential diagnose includes but not limited to pneumonia, ACS, upper respiratory infection secondary to viral etiology, PE although do feel that this less likely as he is on warfarin and chronically anticoagulated, UTI. Once workup is obtained reviewed he will be reevaluated. Patient does have increasing oxygen requirement from his baseline here in the emergency department. Patient's CBC was significant for leukocytosis of 11,000, hemoglobin stable 10, platelet count normal at 187. Patient's sodium was noted be 138, potassium was low indicating hypokalemia at 2.5 he will be given 40 mill equivalents orally and 40 mill equivalents through his IV. Patient's creatinine normal at 0.98. Patient's troponin normal at 21, EKG was reviewed and independently interpreted by myself which showed sinus rhythm with a rate of 83 bpm. Patient's proBNP normal at 154. Patient's chest x-ray was reviewed and showed no acute change from 03/2022/2023. No acute cardiopulmonary processes this was reviewed by myself and by radiology. Given that the patient's oxygen requirement has increased from his baseline he said shortness of breath chills we will treat him for pneumonia with Rocephin and azithromycin and for failed outpatient treatment. Patient's will be given Solu-Medrol here in the emergency department as he was having wheezing noted on exam. Will discuss case with hospitalist. Did discuss case with hospitalist Dr. Dobson who accept patient for admission. Patient was notified is agreeable this plan all question concerns answered. Lab Data Labs: Laboratory Results - last 24 hr 05/10/24 17:00 WBC 11.3 H RBC 3.23 L Hgb 10.0 L Hct 30.0 L MCV 92.9 MCH 31.0 MCHC 33.3 RDW Std Deviation 50.5 H RDW Coeff of Vivek 14.8 H Plt Count 187 MPV 9.4 Immature Gran % (Auto) 0.700 Neut % (Auto) 86.5 H Lymph % (Auto) 7.4 L Morehouse % (Auto) 4.8 Eos % (Auto) 0.4 Baso % (Auto) 0.2 Absolute Neuts (auto) 9.7 H Absolute Lymphs (auto) 0.83 Nucleated RBC % 0 Sodium 138 Potassium 2.5 L* Chloride 103 Carbon Dioxide 26.0 Anion Gap 9 BUN 10 Creatinine 0.98 Estim Creat Clear Calc 67.45 Est GFR (MDRD) Af Amer 97 Est GFR (MDRD) Non-Af 80 BUN/Creatinine Ratio 10.2 Glucose 153 H Calcium 8.3 L Troponin I High Sens 21 B-Natriuretic Peptide 154.8 H Radiography Diagnostic Testing: Clinical Impression(s) from Imaging Studies Chest X-Ray 05/10/24 17:12 IMPRESSION: No change from 04/20/2024. Electronically Signed: Francisco Shane MD at 18:01 EDT , Discharge Plan Triage Chief Complaint: Shortness of Breath ED Provider: Michelet Wade Dx/Rx/DC Orders Clinical Impression: Acute and chronic respiratory failure with hypoxia, Pneumonia Prescriptions: No Action omega-3 fatty acids 1,000 mg capsule 1,000 mg PO DAILY furosemide 40 mg tablet 40 mg PO DAILY omeprazole 20 mg capsule,delayed release(DR/EC) 20 mg PO DAILY warfarin 3 mg tablet 3 mg PO DAILY Qty: 30 11RF Protocol: Dose Management Condition: Sunday Dose/Route: 2 mg Instruction: 1 x 2 mg tablet Condition: Sunday Dose/Route: 2 mg Instruction: 1 x 2 mg tablet Condition: Sunday Dose/Route: 2 mg Instruction: 1 x 2 mg tablet Condition: Sunday Dose/Route: 2 mg Instruction: 1 x 2 mg tablet Condition: Dose/Route: 2 mg Instruction: 1 x 2 mg tablet Condition: Sunday Dose/Route: 2 mg Instruction: 1 x 2 mg tablet Condition: Sunday Dose/Route: 2 mg Instruction: 1 x 2 mg tablet Protocol Text: Adjustment Start Date: 05/08/24 INR Value: 3.0 INR Date: 05/08/24 Recheck Date: 05/15/24 amoxicillin-pot clavulanate 875-125 mg tablet 1 tab PO BID Qty: 20 0RF guaifenesin 1,200 mg tablet extended release 12hr 1,200 mg PO Q12H Qty: 60 6RF pantoprazole 40 mg tablet,delayed release (DR/EC) 40 mg PO BID allopurinol 300 mg tablet 300 mg PO DAILY cholecalciferol (vitamin D3) 50 mcg (2,000 unit) capsule 50 mcg PO DAILY diltiazem HCl [Cardizem CD] 240 mg capsule,extended release 24hr 240 mg PO BID Qty: 60 0RF prednisone 10 mg tablet 10 mg PO DAILY Qty: 32 0RF Rx Instructions: Take 4 tablets daily for 3 days then 3 tablets daily for 3 days then 2 tablets daily for 3 days then 1 tablet daily for 3 days then half tablet daily for 4 days dofetilide 500 mcg capsule 500 mcg PO BID Qty: 180 3RF potassium chloride 10 mEq tablet,ER particles/crystals 10 meq PO DAILY Qty: 90 3RF Prolia 60 mg/mL syringe 60 mg subcut [id number] Qty: 1 1RF albuterol sulfate 90 mcg/actuation HFA aerosol inhaler 2 puff inhalation Q6H PRN (Reason: shortness of breath or wheezing) Qty: 8.5 6RF Breztri Aerosphere 160-9-4.8 mcg/actuation HFA aerosol inhaler 2 inh inhalation BID Qty: 10.7 6RF warfarin 2 mg tablet 2 mg PO QDAY Qty: 30 0RF Protocol: Dose Management Condition: Sunday Dose/Route: 2 mg Instruction: 1 x 2 mg tablet Condition: Sunday Dose/Route: 2 mg Instruction: 1 x 2 mg tablet Condition: Sunday Dose/Route: 2 mg Instruction: 1 x 2 mg tablet Condition: Sunday Dose/Route: 2 mg Instruction: 1 x 2 mg tablet Condition: Dose/Route: 2 mg Instruction: 1 x 2 mg tablet Condition: Sunday Dose/Route: 2 mg Instruction: 1 x 2 mg tablet Condition: Sunday Dose/Route: 2 mg Instruction: 1 x 2 mg tablet Protocol Text: Adjustment Start Date: 05/08/24 INR Value: 3.0 INR Date: 05/08/24 Recheck Date: 05/15/24 Primary Care Provider: Adriel Pike Referrals: Adriel Pike MD [Primary Care Provider] - Print Language: Egyptian
[2024-05-10] MEDS: Potassium Chloride 10mEq/100mL 10 MEQ/100 ML IV.SOLN. 100 MEQ IV BOLUS (18:48)
[2024-05-10 18:54] LABS: Prothrombin Time (Protime)PT. 22.6 SECONDS (11.7-14.9)
--- NOTE | 2024-05-10 19:27 | PCM.HP.STD ---
HPI - General General Date of Admission: 05/10/24 Date of Service: 05/10/24 Chief Complaint: Increasing shortness of breath HPI Narrative ENRIQUE MCNALLY, is a 68-year-old male history of A-fib, gout, GERD, DVT, who presented [facility] ED 05/10/2024 with worsening shortness of breath for 2 days. Finished antibiotics for COPD exacerbation on , wears 3 L O2 at night but usually does not require O2 during the day. On arrival patient 78% on room air. He was placed on 4 L of O2, chest x-ray similar to previous. Recently been on antibiotics for COPD exacerbation with last dose and has had progressive shortness of breath since he stopped antibiotics with chills prompting him to come to the ED. Patient on 4 L O2, given Rocephin and azithromycin, IV steroids and hospitalist contacted for admission. Patient evaluated at bedside. He reports that he finished his Augmentin on and since that time he has had chills and sweats with increasing shortness of breath to the point it is difficult for him to ambulate up the stairs, usually only wears O2 at nighttime, has been having some cough. Occasionally will have some blood-tinged sputum which he reports his pulmonology provider is aware of. Denies any other new or acute complaints [facility] Medical History History of echocardiogram DVT (deep venous thrombosis) Injury of back History of hiatal hernia Shortness of breath on exertion Former smoker Leg cramps Cardiology follow-up encounter Pulmonary emphysema Hyperlipidemia Colon polyps Barretts esophagus Scabies Atrial fibrillation and flutter Osteoporosis Essential hypertension History of DVT (deep vein thrombosis) Paroxysmal atrial tachycardia Paroxysmal atrial fibrillation GERD (gastroesophageal reflux disease) Gout Type 2 diabetes mellitus Hypertension Tachycardia 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 Near syncope Bradycardia Tobacco dependence Afib Home Medications ?Medication ?Instructions ?Recorded ?Last Taken ?Type dofetilide 500 mcg capsule 500 mcg PO BID heart #180 caps 09/26/23 04/07/24 Rx potassium chloride 10 mEq 10 meq PO DAILY supplement #90 09/26/23 04/07/24 Rx tablet,extended release(part/cryst) tabs denosumab 60 mg/mL subcutaneous 60 mg subcut [id number] osteoperosis 11/29/23 Unknown Rx syringe (Prolia) #1 mL albuterol sulfate 90 mcg/actuation 2 puff inhalation Q6H PRN 01/28/24 04/07/24 Rx aerosol inhaler shortness of breath or wheezing #8.5 grams furosemide 40 mg tablet 40 mg PO DAILY edema 02/28/24 04/07/24 History omega-3 fatty acids 1,000 mg 1,000 mg PO DAILY supplement 02/28/24 04/07/24 History capsule omeprazole 20 mg capsule,delayed 20 mg PO DAILY acid reflux 02/28/24 04/07/24 History release budesonide 160 mcg-glycopyr 9 2 inh inhalation BID shortness of 03/12/24 04/07/24 Rx mcg-formot 4.8 mcg/actuation HFA breath #10.7 grams inhaler (Breztri Aerosphere) allopurinol 300 mg tablet 300 mg PO DAILY 04/07/24 04/07/24 History cholecalciferol (vitamin D3) 50 50 mcg PO DAILY supplement 04/07/24 04/07/24 History mcg (2,000 unit) capsule pantoprazole 40 mg tablet,delayed 40 mg PO BID gerd 04/07/24 04/07/24 History release diltiazem HCl 240 mg 240 mg PO BID #60 caps 04/15/24 Unknown Rx capsule,extended release 24 hr (Cardizem CD) prednisone 10 mg tablet 10 mg PO DAILY #32 tabs 04/23/24 Unknown Rx warfarin 3 mg tablet 3 mg PO DAILY blood thinner #30 04/24/24 Unknown Rx tabs warfarin 2 mg tablet 2 mg PO QDAY #30 tabs 04/28/24 Unknown Rx amoxicillin 875 mg-potassium 1 tab PO BID #20 tabs 04/29/24 Unknown Rx clavulanate 125 mg tablet guaifenesin 1,200 mg tablet, 1,200 mg PO Q12H #60 tabs 04/29/24 Unknown Rx extended release 12 hr Allergy/AdvReac Type Severity Reaction Status Date / Time secobarbital sodium (From Allergy Unknown Verified 05/10/24 16:22 [place]) venom-honey bee (bee venom Allergy Anaphylaxis Verified 05/10/24 16:22 (honey bee)) Family History Mother Diabetes Hypertension Myocardial infarction CAD (coronary artery disease) Father Hypertension Heart disease Diabetes Myocardial infarction CAD (coronary artery disease) Surgical History History of esophagogastroduodenoscopy (EGD) History of hip replacement Status post peripheral artery angioplasty History of left hip replacement History of cardiac radiofrequency ablation (~04/2008) Social History household members: other details: His mother lives with him. Smoking Status: Former smoker Tobacco: How many years used: 50 how long ago did patient quit smokin alcohol intake: current alcohol intake frequency: a few times a month Alcohol type: beer substance use type: does not use caffeine: No ROS ROS Narrative General: Has had some fevers and chills HENT: Denies headache, denies stuffy nose, denies sore throat EYES: Denies changes in vision Resp: Has been having some cough without significant sputum production, worsening shortness of breath and hypoxia Cardiac: Denies chest pain GI: Denies abdominal pain, denies changes in bowel, denies nausea/vomiting : Denies changes in urination Extremity: Denies swelling MSK: Denies weakness Neuro: Denies any numbness/tingling Heme: Denies any bleeding or bruising Skin: Denies rashes Psychiatric: No complaints voiced Vital Signs Vital Signs Vital Signs: 05/10/24 16:22 05/10/24 16:22 05/10/24 16:52 Temperature 98.3 F 99.2 F H Temperature Source Oral Oral Pulse Rate 90 82 Respiratory Rate 25 H 18 Respiratory Effort Respiratory Depth Respiratory Pattern Blood Pressure 108/65 108/61 Blood Pressure Mean 79 76 Pulse Ox 78 95 93 Oxygen Delivery Method Room Air Nasal Cannula Nasal Cannula Oxygen Flow Rate (L/min) 5 4 05/10/24 16:52 05/10/24 16:56 05/10/24 17:29 Temperature Temperature Source Pulse Rate Respiratory Rate Respiratory Effort Normal Non-Labored Respiratory Depth Normal Respiratory Pattern Normal Blood Pressure 128/73 H Blood Pressure Mean 91 Pulse Ox 4 Oxygen Delivery Method Nasal Cannula Nasal Cannula Oxygen Flow Rate (L/min) 4 05/10/24 17:30 05/10/24 17:59 05/10/24 18:54 Temperature 99.0 F 98.8 F 98.8 F Temperature Source Oral Oral Oral Pulse Rate 79 69 72 Respiratory Rate 18 18 18 Respiratory Effort Respiratory Depth Respiratory Pattern Blood Pressure 128/73 H 107/59 L 105/60 Blood Pressure Mean 91 75 75 Pulse Ox 93 93 93 Oxygen Delivery Method Nasal Cannula Nasal Cannula Nasal Cannula Oxygen Flow Rate (L/min) 4 4 4 Weight Weight: 73.074 kg Body Mass Index (BMI) 25.2 Physical Exam Narrative General: Alert, oriented, no apparent distress HEENT: Atraumatic, normocephalic Eyes: Anicteric, normal conjunctiva, extraocular movements grossly intact Neck: Supple Respiratory: Increased work of breathing, scattered wheezes, diminished throughout Cardiovascular: Regular rate and rhythm GI: Soft, nontender, nondistended Extremities: No edema Musculoskeletal: Moving all extremities Neuro: No overt focal neurological deficits Skin: No rashes appreciated Psych: Cooperative Results Lab / Micro Data 05/10/24 17:00 05/10/24 17:00 Labs: Laboratory Results - last 24 hr 05/10/24 17:00: WBC 11.3 H, RBC 3.23 L, Hgb 10.0 L, Hct 30.0 L, MCV 92.9, MCH 31.0, MCHC 33.3, RDW Std Deviation 50.5 H, RDW Coeff of Vivek 14.8 H, Plt Count 187, MPV 9.4, Immature Gran % (Auto) 0.700, Neut % (Auto) 86.5 H, Lymph % (Auto) 7.4 L, Arthur % (Auto) 4.8, Eos % (Auto) 0.4, Baso % (Auto) 0.2, Absolute Neuts (auto) 9.7 H, Absolute Lymphs (auto) 0.83, Nucleated RBC % 0, PT 22.6 H, INR 2.0, Sodium 138, Potassium 2.5 L*, Chloride 103, Carbon Dioxide 26.0, Anion Gap 9, BUN 10, Creatinine 0.98, Estim Creat Clear Calc 67.45, Est GFR (MDRD) Af Amer 97, Est GFR (MDRD) Non-Af 80, BUN/Creatinine Ratio 10.2, Glucose 153 H, Calcium 8.3 L, Troponin I High Sens 21, B-Natriuretic Peptide 154.8 H Micro: Microbiology 05/10/24 17:51 Mucosa - Nose SARS-CoV-2, Influenza & RSV (PCR) - Final Imaging Radiology Impression Chest X-Ray 05/10/24 17:12 IMPRESSION: No change from 04/20/2024. Electronically Signed: Francisco Shane MD at 18:01 EDT , Assessment & Plan Assessment/Plan (1) Acute and chronic respiratory failure with hypoxia: PLAN: Plan # Acute on chronic hypoxia 2/2 acute exacerbation of COPD -Imaging: Chest x-ray similar to 04/20/2024 patient without productive sputum so suspect COPD exacerbation and not necessarily pneumonia -Patient uses a baseline 3 L O2 at bedtime and currently requiring 4 -Admit to floor, continuous O2 monitoring COVID negative, obtain respiratory panel, sputum culture if able -O2 in place, wean as tolerated -IV methylprednisone -Scheduled DuoNebs -Albuteron prn -Antibiotics: Resume Augmentin as this had improved symptoms, avoiding Levaquin if possible due to interaction with Coumadin and QTc prolonging with patient being on dofetilide, if needed suspect would need close INR monitoring and QTc -Incentive spirometer -Mucinex -May need prednisone taper instead of burst on DC however will depend on patient progress, will defer to discharging physician -Will benefit from following up with transitional living specialist on discharge #Hypokalemia -Replaced with oral and IV, repeat # History of DVT/PE/afib -INR 2 -Continue Coumadin -Trend INR -Will continue diltiazem and dofetilide, still awaiting final med rec confirmation but these medications have been recently filled so we will continue in the meantime, this will need we reviewed after med rec updated #Hx gout -Continue allopurinol #GERD -Continue PPI #DVT ppx: on Coumadin Francisca Dobson MD Charges/Coding Visit Charges Inpatient E&M: 80605 Init Hosp L2
[2024-05-10 22:12] LABS: Anion Gap 9 (5-15); BUN 9 mg/dL (7-18); BUN/Creat Ratio 12.7 RATIO (10-20); Calcium,Total 8.1 mg/dL (8.5-10.1); Chloride 103 mmol/L (98-107); Creatinine, Serum 0.71 mg/dL (0.70-1.30); EST Glomerular Filtration Rate 118 mL/min (>60); Est Glom Filt Rate - Afr Amer 143 mL/min (>60); Estimated Creatinine Clearance 88.38 ml/min; Glucose 146 mg/dL (74-106); Potassium 3.1 mmol/L (3.5-5.1); Sodium Level 136 mmol/L (136-145)
[2024-05-10] MEDS: guaiFENesin 1,200 MG Tablet 1200 MG PO (23:02)
[2024-05-10] MEDS: Pantoprazole Sodium 40 MG Tablet PO (23:03)
[2024-05-10] MEDS: Ipratropium/Albuterol Sulfate 3 ML AMPUL.NEB INHALATION (23:48)
[2024-05-11] VITALS (11 sets, daily range): BP systolic 100–108; BP diastolic 68–90; PULSE 72–99; RESP 16–18; TEMP 36.1–36.4; O2SAT 91–97; BMI 22.2
[2024-05-11 07:16] LABS: Absolute Lymphocyte Count 0.49 X10^3/uL (0.83-4.51); Absolute Neutrophil Count 5.3 X10^3/uL (2.0-7.7); Basophil# 0.01 X10^3/uL; Basophil% 0.2 % (0-1); Eosinophil# 0.01 X10^3/uL; Eosinophils% 0.2 % (0-5); Hematocrit 31.2 % (40-54); Hemoglobin 10.3 g/dL (13.0-16.5); Lymphocyte # 0.49 X10^3/ul (0.83-4.51); Lymphocyte % 8.2 % (19-41); Mean Corpuscular Hgb 30.4 pg (27.0-32.0); Mean Platelet Vol. 9.7 fl (6.2-12.0); Monocyte# 0.11 X10^3/uL; Monocyte% 1.8 % (0-10); NRBC Flagged by Analyzer 0 % (0-5); Neutrophil # 5.28 X10^3/uL (2.7-7.7); Neutrophil % 88.6 % (47-70); POSITIVE DIFFERENTIAL YES; Platelet Count 169 K/mm3 (150-450); RBC Distribution Width CV 14.6 % (11.6-14.6); RBC Distribution Width SD 49.8 fl (35.1-43.9); Red Blood Count 3.39 M/mm3 (4.6-6.2)
[2024-05-11] MEDS: Ipratropium/Albuterol Sulfate 3 ML AMPUL.NEB INHALATION ×4 (07:20→23:35)
[2024-05-11 07:43] LABS: Anion Gap 7 (5-15); BUN 9 mg/dL (7-18); BUN/Creat Ratio 14.8 RATIO (10-20); Chloride 103 mmol/L (98-107); Creatinine, Serum 0.61 mg/dL (0.70-1.30); EST Glomerular Filtration Rate 140 mL/min (>60); Est Glom Filt Rate - Afr Amer 169 mL/min (>60); Glucose 213 mg/dL (74-106); Potassium 2.8 mmol/L (3.5-5.1); Sodium Level 135 mmol/L (136-145)
[2024-05-11] MEDS: Dofetilide 250 MCG Capsule 500 MCG PO ×2 (08:07→17:10)
[2024-05-11] MEDS: Amox/Clavulanate 875 MG Tablet PO ×2 (08:07→17:11)
[2024-05-11] MEDS: guaiFENesin 1,200 MG Tablet 1200 MG PO ×2 (08:07→17:11)
[2024-05-11] MEDS: Allopurinol 300 MG Tablet PO (08:07)
[2024-05-11] MEDS: dilTIAZem CD 240 MG Capsule PO ×2 (08:07→17:11)
[2024-05-11] MEDS: Pantoprazole Sodium 40 MG Tablet PO ×2 (08:08→17:10)
[2024-05-11 08:23] LABS: International Normalized Ratio 1.9; Prothrombin Time (Protime)PT. 21.2 SECONDS (11.7-14.9)
[2024-05-11 08:29] LABS: Magnesium 1.8 mg/dL (1.6-2.6); Phosphorus 2.3 mg/dL (2.5-4.9)
--- NOTE | 2024-05-11 09:14 | PCM.PN.HOSP ---
Subjective Subjective Recently discharged on 04/23/2024 for COPD exacerbation at that time was requiring 3 L with ambulation and room air at rest currently on 4 L continuously Objective Data Objective Data Vital Signs: Vital Signs Temp Pulse Resp BP Pulse Ox O2 Del Method O2 Flow Rate 97.5 F L 99 18 100/84 H 96 Nasal Cannula 4 05/11/24 08:02 05/11/24 08:02 05/11/24 08:02 05/11/24 08:02 05/11/24 08:02 05/11/24 08:02 05/11/24 08:02 Oxygen Flow Rate (L/min) 4 Oxygen Delivery Method Nasal Cannula Weight: 150 lb 12.739 oz Body Mass Index (BMI) 22.2 Intake & Output: Intake and Output for Last 24 Hours 05/10/24 05/11/24 05/12/24 03:59 03:59 03:59 Intake Total 625 / 625 220 / 220 Balance 625 / 625 220 / 220 Lab / Micro Data 05/11/24 06:35 05/11/24 06:35 Labs: Laboratory Results - last 24 hr 05/10/24 17:00: WBC 11.3 H, RBC 3.23 L, Hgb 10.0 L, Hct 30.0 L, MCV 92.9, MCH 31.0, MCHC 33.3, RDW Std Deviation 50.5 H, RDW Coeff of Vivek 14.8 H, Plt Count 187, MPV 9.4, Immature Gran % (Auto) 0.700, Neut % (Auto) 86.5 H, Lymph % (Auto) 7.4 L, Price % (Auto) 4.8, Eos % (Auto) 0.4, Baso % (Auto) 0.2, Absolute Neuts (auto) 9.7 H, Absolute Lymphs (auto) 0.83, Nucleated RBC % 0, PT 22.6 H, INR 2.0, Sodium 138, Potassium 2.5 L*, Chloride 103, Carbon Dioxide 26.0, Anion Gap 9, BUN 10, Creatinine 0.98, Estim Creat Clear Calc 67.45, Est GFR (MDRD) Af Amer 97, Est GFR (MDRD) Non-Af 80, BUN/Creatinine Ratio 10.2, Glucose 153 H, Calcium 8.3 L, Troponin I High Sens 21, B-Natriuretic Peptide 154.8 H 05/10/24 21:32: Sodium 136, Potassium 3.1 L, Chloride 103, Carbon Dioxide 24.0, Anion Gap 9, BUN 9, Creatinine 0.71, Estim Creat Clear Calc 88.38, Est GFR (MDRD) Af Amer 143, Est GFR (MDRD) Non-Af 118, BUN/Creatinine Ratio 12.7, Glucose 146 H, Calcium 8.1 L 05/11/24 06:35: WBC 6.0, RBC 3.39 L, Hgb 10.3 L, Hct 31.2 L, MCV 92.0, MCH 30.4, MCHC 33.0, RDW Std Deviation 49.8 H, RDW Coeff of Vivek 14.6, Plt Count 169, MPV 9.7, Immature Gran % (Auto) 1.000 H, Neut % (Auto) 88.6 H, Lymph % (Auto) 8.2 L, Price % (Auto) 1.8, Eos % (Auto) 0.2, Baso % (Auto) 0.2, Absolute Neuts (auto) 5.3, Absolute Lymphs (auto) 0.49 L, Nucleated RBC % 0, PT 21.2 H, INR 1.9, Sodium 135 L, Potassium 2.8 L, Chloride 103, Carbon Dioxide 25.0, Anion Gap 7, BUN 9, Creatinine 0.61 L, Estim Creat Clear Calc 85.50, Est GFR (MDRD) Af Amer 169, Est GFR (MDRD) Non-Af 140, BUN/Creatinine Ratio 14.8, Glucose 213 H, Calcium 8.0 L, Phosphorus 2.3 L, Magnesium 1.8 Micro: Microbiology 05/10/24 23:48 Mucosa - Nasopharyngeal Respiratory Panel (PCR) - Final 05/10/24 17:51 Mucosa - Nose SARS-CoV-2, Influenza & RSV (PCR) - Final Radiography Diagnostic Testing: Radiology Impression Chest X-Ray 05/10/24 17:12 IMPRESSION: No change from 04/20/2024. Electronically Signed: Francisco Shane MD at 18:01 EDT , Physical Exam Narrative General: Alert, Oriented x3, Cooperative, No apparent distress HEENT: Atraumatic, PERRLA, EOMI, Normocephalic Oral: Moist Mucosa Neck: Supple, No JVD Lungs: Diminished, Normal air movement, No rhonchi, No wheeze, No rales Cardiovascular: Regular rate, Regular Rhythm, Normal S1, Normal S2, No murmurs Abdomen: Soft, Non Tender, Non-Distended, No Hepato-splenomegaly Extremities: No edema, Capillary Refill Less than 3 Seconds Skin: No rashes, No breakdown Musculoskeletal: No Tenderness to Palpation of Joints or Extremities Neurological: No focal neurological deficits, Motor Exam 5/5 strength throughout, Sensory exam intact to light touch and pain Psych/Mental Status: Normal Affect, Appropriate Assessment & Plan Assessment/Plan (1) Acute and chronic respiratory failure with hypoxia: PLAN: Plan 1. Hypoxia secondary to COPD exacerbation ? Continue with steroids, will likely need more prolonged taper on discharge ? Continue with breathing treatments ? Sputum cultures pending ? On discharge in March he required 3 L nasal cannula with ambulation and was room air at rest currently on 4 L continuous ? Viral panels were negative ? Was started on Augmentin as an outpatient by his electroencephalograph technologist, he had improvement with symptoms and this finished on so we will restart here and monitor 2. Paroxysmal A-fib/essential HTN ? Continue with Coumadin ? Continue with his home blood pressure medications ? Blood pressures are currently stable ? Will continue to monitor and make adjustments as necessary 3. GERD ? Stable ?Continue with PPI ? On his previous admission he did have an EGD which was negative for an active bleed but did show chronic gastritis 4. Gout ? Stable ? Continue with allopurinol DVT: Coumadin Charges/Coding Visit Charges Inpatient E&M: 72525 Subs Hosp L2
[2024-05-11] MEDS: Potassium Chloride Oral Tablet 20 MEQ 40 MEQ PO (10:43)
[2024-05-11] MEDS: Magnesium Sulfate 2 GM in Dextrose 5%-Water (100mL Bag) 100 ML IV (10:43)
[2024-05-11] MEDS: Potassium Phosphate 21 MM in 0.9% Normal Saline (250mL Bag) 250 ML 84 MM IV (10:44)
[2024-05-11] MEDS: Jantoven 2 MG Tablet PO (17:10)
[2024-05-11] MEDS: 0.9% Saline Lock 10 ML Syringe IV (21:30)
[2024-05-12] VITALS (11 sets, daily range): BP systolic 105–127; BP diastolic 52–72; PULSE 78–108; RESP 16–20; TEMP 36.1–36.6; O2SAT 91–98; BMI 22.2
[2024-05-12] MEDS: Ipratropium/Albuterol Sulfate 3 ML AMPUL.NEB INHALATION ×6 (03:42→23:50)
[2024-05-12 06:49] LABS: Absolute Lymphocyte Count 0.48 X10^3/uL (0.83-4.51); Absolute Neutrophil Count 16.9 X10^3/uL (2.0-7.7); Basophil# 0.02 X10^3/uL; Basophil% 0.1 % (0-1); Hemoglobin 9.8 g/dL (13.0-16.5); Lymphocyte # 0.48 X10^3/ul (0.83-4.51); Lymphocyte % 2.7 % (19-41); Mean Corp Hgb Conc 32.7 g/dL (32-36); Mean Corpuscular Hgb 30.2 pg (27.0-32.0); Mean Corpuscular Volume 92.3 fL (80-94); Mean Platelet Vol. 9.7 fl (6.2-12.0); Monocyte# 0.39 X10^3/uL; Monocyte% 2.2 % (0-10); NRBC Flagged by Analyzer 0 % (0-5); Neutrophil # 16.93 X10^3/uL (2.7-7.7); Neutrophil % 94.1 % (47-70); POSITIVE DIFFERENTIAL YES; Platelet Count 229 K/mm3 (150-450); RBC Distribution Width CV 14.8 % (11.6-14.6); Red Blood Count 3.25 M/mm3 (4.6-6.2)
[2024-05-12 06:57] LABS: International Normalized Ratio 2.4; Prothrombin Time (Protime)PT. 25.8 SECONDS (11.7-14.9)
[2024-05-12 08:03] LABS: Anion Gap 10 (5-15); BUN 10 mg/dL (7-18); BUN/Creat Ratio 14.5 RATIO (10-20); Calcium,Total 8.7 mg/dL (8.5-10.1); Chloride 100 mmol/L (98-107); Creatinine, Serum 0.69 mg/dL (0.70-1.30); EST Glomerular Filtration Rate 121 mL/min (>60); Est Glom Filt Rate - Afr Amer 147 mL/min (>60); Estimated Creatinine Clearance 85.38 ml/min; Glucose 212 mg/dL (74-106); Potassium 3.4 mmol/L (3.5-5.1); Sodium Level 133 mmol/L (136-145)
[2024-05-12] MEDS: guaiFENesin 1,200 MG Tablet 1200 MG PO ×2 (08:23→20:28)
[2024-05-12] MEDS: dilTIAZem CD 240 MG Capsule PO ×2 (08:23→20:28)
[2024-05-12] MEDS: Amox/Clavulanate 875 MG Tablet PO ×2 (08:23→16:49)
[2024-05-12] MEDS: Allopurinol 300 MG Tablet PO (08:23)
[2024-05-12] MEDS: Dofetilide 250 MCG Capsule 500 MCG PO ×2 (08:24→20:29)
[2024-05-12] MEDS: Pantoprazole Sodium 40 MG Tablet PO ×2 (08:24→20:29)
[2024-05-12] MEDS: Potassium Chloride Oral Tablet 20 MEQ 40 MEQ PO (08:52)
[2024-05-12] MEDS: Furosemide 40 MG/4 ML Vial IV ×2 (10:50→16:50)
--- NOTE | 2024-05-12 10:58 | PN_ITS ---
Subjective Subjective Patient seen and examined. He is concerned because he is still short of breath. He says he has been told that he has a lung collapse on the left side and is wondering if that is causing his symptoms. He says someone looked at his current x-ray and told him that is what he had. He is on 3 L of oxygen.His wbc is up to 18, though he is on steroids. Review of systems is otherwise negative. Objective Data Objective Data Vital Signs: Vital Signs Temp Pulse Resp BP Pulse Ox O2 Del Method O2 Flow Rate 97.0 F L 108 H 18 119/72 94 Nasal Cannula 3 05/12/24 08:07 05/12/24 08:07 05/12/24 08:07 05/12/24 08:07 05/12/24 08:07 05/12/24 08:27 05/12/24 08:27 Oxygen Flow Rate (L/min) 3 Oxygen Delivery Method Nasal Cannula Weight: 150 lb 9.211 oz Body Mass Index (BMI) 22.2 Intake & Output: Intake and Output for Last 24 Hours 05/10/24 05/11/24 05/12/24 23:59 23:59 23:59 Intake Total 405 / 625 1301 / 1941 640 / 640 Balance 405 / 625 1301 / 1941 640 / 640 Lab / Micro Data 05/12/24 05:58 05/12/24 05:58 Labs: Laboratory Results - last 24 hr 05/12/24 05:58: WBC 18.0 H, RBC 3.25 L, Hgb 9.8 L, Hct 30.0 L, MCV 92.3, MCH 30.2, MCHC 32.7, RDW Std Deviation 50.0 H, RDW Coeff of Vivek 14.8 H, Plt Count 229, MPV 9.7, Immature Gran % (Auto) 0.900, Neut % (Auto) 94.1 H, Lymph % (Auto) 2.7 L, [place] % (Auto) 2.2, Eos % (Auto) 0.0, Baso % (Auto) 0.1, Absolute Neuts (auto) 16.9 H, Absolute Lymphs (auto) 0.48 L, Nucleated RBC % 0, PT 25.8 H, INR 2.4, Sodium 133 L, Potassium 3.4 L, Chloride 100, Carbon Dioxide 23.0, Anion Gap 10, BUN 10, Creatinine 0.69 L, Estim Creat Clear Calc 85.38, Est GFR (MDRD) Af Amer 147, Est GFR (MDRD) Non-Af 121, BUN/Creatinine Ratio 14.5, Glucose 212 H, Calcium 8.7 Micro: Microbiology 05/10/24 23:48 Mucosa - Nasopharyngeal Respiratory Panel (PCR) - Final 05/10/24 17:51 Mucosa - Nose SARS-CoV-2, Influenza & RSV (PCR) - Final Physical Exam Const alert, oriented x3 and no apparent distress General Appearance: cooperative HEENT normocephalic and head/scalp atraumatic Mouth: dry mucous membranes Eyes PERRL and EOMs intact bilaterally Neck no lymphadenopathy and supple Lymph Lymphatic: no lymphadenopathy noted and no lymphedema noted Resp Resp Narrative: moderately diminished breath sounds bilaterally, no wheezes or crackles. On 3L of oxygen by nasal canula Cardio regular rate, regular rhythm, S1 normal heart sound, S2 normal heart sound and no murmurs Peripheral Pulses: pulses 2+ throughout GI normal to inspection, nondistended, normoactive bowel sounds, soft to palpation and non-tender Extremity normal capillary refill, no clubbing, cyanosis or edema and no calf tenderness General Extremity: no tenderness to palpation of joints or extremities Skin General Skin Exam: no breakdown Neuro CN's II-XII intact bilaterally, no focal motor deficits, no sensory deficits noted and deep tendon reflexes 2+ bilaterally Motor Exam: strength 5/5 throughout and general weakness Psych thought process normal and cooperative Mood & Affect: anxious Assessment & Plan Assessment/Plan (1) Acute and chronic respiratory failure with hypoxia: (2) Pneumonia: PLAN: Plan #HYpoxia in the setting of chronic respiratory failure due to COPD exacerbation * currently on 3L of oyxgen. * CXR: Showed interstitial fibrotic changes of the lungs with no superimposed alveolar findings to suggest pneumonia or atelectasis. * on IV solumedrol. Sputum cultures pending * on 3L of oxygen * on PO augmentin which was prescribed on outpatient basis by his head banquet waiter/waitress. This was continued here. * titrate oxygen to maintain sats>90% * patient reassured he does not have lung collapse. * will diurese with IV lasix 40mg bid till tomorrow morning * on Breztri puffs bid. * breathing treatment with bronchodilators. * * #Hypokalemia: K is 3.4. Will replace and trend #Paroxysmal afib * on coumadin. INR is 2.5 today. * On dofetilide and cardizem. * #Lung nodules * follow up with pulmonology on outpatient basis * #GERD: on PPI #History of gout: not having any flare up. Stable. On allopurinol. DVT prophylaxis: on coumadin. INR is therapeutic Charges/Coding Visit Charges Inpatient E&M: 55905 Subs Hosp L2
--- NOTE | 2024-05-12 15:38 | CHAPLAIN ---
Type of Pastoral Visit _x__ Initial Visit ___ Follow-up Visit ___ On-call Visit ___ General Patient Visit ___ Spiritual Assessment ___ Family Conference ___ Bereavement ___ Rapid Response ___ Code Blue ___ Other (describe below) Pastoral Care Referral From _x__ Patient ___ Family ___ Nurse ___ Physician ___ Microsoft Access Developer ___ Artist Woodblock ___ Other (describe below) Sacrament/Intervention _x__ Active listening ___ Anointing ___ Pentecostal ___ Bereavement ___ Communion ___ Jennifer exploration ___ _x__ Life review ___ Prayer ___ Reconciliation ___ Sacrament of Sick _x__ Supportive presence ___ Wedding ___ Other (describe below) Pastoral Comments patient is welcoming and very talkative; pt gives some life review and identifies himself as someone determined and who will never quit to carry on; pt states that he has every intention of staying alive until they tell me that I can't; pt repeats himself that he relies on self and that this approach has worked for him over time; pt has a mother that exhibits some health concerns and he is worried about her
[2024-05-12] MEDS: Jantoven 2 MG Tablet PO (16:49)
[2024-05-12] MEDS: 0.9% Saline Lock 10 ML Syringe IV (20:30)
[2024-05-13] VITALS (11 sets, daily range): BP systolic 93–115; BP diastolic 60–72; PULSE 67–86; RESP 16–24; TEMP 35.9–36.6; O2SAT 82–95; BMI 24.0
[2024-05-13] MEDS: 0.9% Saline Lock 10 ML Syringe IV ×2 (05:45→20:03)
[2024-05-13 06:26] LABS: International Normalized Ratio 2.4; Prothrombin Time (Protime)PT. 26.3 SECONDS (11.7-14.9)
[2024-05-13 06:33] LABS: Absolute Lymphocyte Count 0.54 X10^3/uL (0.83-4.51); Absolute Neutrophil Count 14.9 X10^3/uL (2.0-7.7); Basophil# 0.01 X10^3/uL; Basophil% 0.1 % (0-1); Hematocrit 29.6 % (40-54); Hemoglobin 9.7 g/dL (13.0-16.5); Lymphocyte # 0.54 X10^3/ul (0.83-4.51); Lymphocyte % 3.4 % (19-41); Mean Corp Hgb Conc 32.8 g/dL (32-36); Mean Corpuscular Hgb 30.1 pg (27.0-32.0); Mean Corpuscular Volume 91.9 fL (80-94); Mean Platelet Vol. 9.6 fl (6.2-12.0); Monocyte# 0.38 X10^3/uL; Monocyte% 2.4 % (0-10); NRBC Flagged by Analyzer 0 % (0-5); Neutrophil # 14.89 X10^3/uL (2.7-7.7); Neutrophil % 92.9 % (47-70); POSITIVE DIFFERENTIAL YES; Platelet Count 237 K/mm3 (150-450); RBC Distribution Width CV 15.1 % (11.6-14.6); RBC Distribution Width SD 50.3 fl (35.1-43.9); Red Blood Count 3.22 M/mm3 (4.6-6.2)
[2024-05-13 06:47] LABS: Anion Gap 7 (5-15); BUN 9 mg/dL (7-18); BUN/Creat Ratio 12.5 RATIO (10-20); Calcium,Total 8.4 mg/dL (8.5-10.1); Chloride 104 mmol/L (98-107); Creatinine, Serum 0.72 mg/dL (0.70-1.30); EST Glomerular Filtration Rate 116 mL/min (>60); Est Glom Filt Rate - Afr Amer 140 mL/min (>60); Estimated Creatinine Clearance 88.38 ml/min; Glucose 119 mg/dL (74-106); Potassium 3.6 mmol/L (3.5-5.1); Sodium Level 136 mmol/L (136-145)
[2024-05-13] MEDS: Ipratropium/Albuterol Sulfate 3 ML AMPUL.NEB INHALATION ×5 (07:18→23:37)
[2024-05-13] MEDS: Amox/Clavulanate 875 MG Tablet PO ×2 (08:31→17:04)
[2024-05-13] MEDS: Pantoprazole Sodium 40 MG Tablet PO ×2 (08:32→19:59)
[2024-05-13] MEDS: guaiFENesin 1,200 MG Tablet 1200 MG PO ×2 (08:32→19:59)
[2024-05-13] MEDS: Allopurinol 300 MG Tablet PO (08:32)
[2024-05-13] MEDS: dilTIAZem CD 240 MG Capsule PO ×2 (08:32→20:00)
[2024-05-13] MEDS: Dofetilide 250 MCG Capsule 500 MCG PO ×2 (08:33→20:00)
--- NOTE | 2024-05-13 10:15 | CASEMGMT ---
RN CM chart review: Patient was admitted 04/20-04/23/24 for hypoxia, COPD exacerbation and 04/07-04/09/24 for pneumonia. See RN CM assessment from 04/08/24. Patient was discharged to home with home oxygen at 3lpm with exertion with [employer], CCN referral, family support, and follow-up plans in place. Patient returned to [facility] ED on 05/10/24 for increased SOB and was admitted for COPD exacerbation. RN CM in to discuss readmission and needs at discharge. Patient states he attended his PCP and pulmonary appts as scheduled. Patient states he was taking medications as prescribed. RN CM inquired in patient was wearing oxygen at home, patient states just at night. RN CM reviewed oxygen orders at previous discharge to wear 3lpm with activity and ambulation. Patient states his concentrator is upstairs and he is unable to carry it down stairs to use during the day. Patient states his mother lives on the first floor and he is not able to sleep downstairs. RN CM discussed using longer tubing in the home and portable tank to maintain oxygen. Also discussed patient to [place] [facility] [place] for at home. Patient voiced understanding. Patient declined [employer] referral, stating that his mother would not like people coming into the home. Patient raymond additonal needs for in the home. NITZA COLLAZO updated by nursing that patient required 15lpm with ambulation, discharge on hold. CM will continue to follow this patient and plan for safe discharge.
--- NOTE | 2024-05-13 12:17 | PCM.PROGNOTE ---
Subjective Subjective Patient seen and examined. No active complaints. He states he is not coughing and expectorating as much as he was previously. He denied any wheezing, chest pain, palpitations, dizziness, nausea or any other symptoms. Review of systems is otherwise negative. He was on 3L of oxygen, but with ambulation he dropped to hte 80s and required 8L of oxygen. Objective Data Objective Data Vital Signs: Vital Signs Temp Pulse Resp BP Pulse Ox O2 Del Method O2 Flow Rate 97.4 F L 80 18 105/61 93 Nasal Cannula 3 05/13/24 08:29 05/13/24 08:29 05/13/24 08:29 05/13/24 08:29 05/13/24 08:29 05/13/24 08:29 05/13/24 08:29 Oxygen Flow Rate (L/min) 3 Oxygen Delivery Method Nasal Cannula Weight: 162 lb 11.2 oz Body Mass Index (BMI) 24.0 Intake & Output: Intake and Output for Last 24 Hours 05/11/24 05/12/24 05/13/24 23:59 23:59 23:59 Intake Total 1301 / 1941 640 / 1280 820 / 820 Balance 1301 / 1941 640 / 1280 820 / 820 Lab / Micro Data 05/13/24 05:38 05/13/24 05:38 Labs: Laboratory Results - last 24 hr 05/13/24 05:38: WBC 16.0 H, RBC 3.22 L, Hgb 9.7 L, Hct 29.6 L, MCV 91.9, MCH 30.1, MCHC 32.8, RDW Std Deviation 50.3 H, RDW Coeff of Vivek 15.1 H, Plt Count 237, MPV 9.6, Immature Gran % (Auto) 1.200 H, Neut % (Auto) 92.9 H, Lymph % (Auto) 3.4 L, [place] % (Auto) 2.4, Eos % (Auto) 0.0, Baso % (Auto) 0.1, Absolute Neuts (auto) 14.9 H, Absolute Lymphs (auto) 0.54 L, Nucleated RBC % 0, PT 26.3 H, INR 2.4, Sodium 136, Potassium 3.6, Chloride 104, Carbon Dioxide 25.0, Anion Gap 7, BUN 9, Creatinine 0.72, Estim Creat Clear Calc 88.38, Est GFR (MDRD) Af Amer 140, Est GFR (MDRD) Non-Af 116, BUN/Creatinine Ratio 12.5, Glucose 119 H, Calcium 8.4 L Micro: Microbiology 05/10/24 23:48 Mucosa - Nasopharyngeal Respiratory Panel (PCR) - Final 05/10/24 17:51 Mucosa - Nose SARS-CoV-2, Influenza & RSV (PCR) - Final Physical Exam Const alert, oriented x3 and no apparent distress General Appearance: cooperative HEENT normocephalic and head/scalp atraumatic Eyes PERRL and EOMs intact bilaterally Neck no lymphadenopathy and supple Lymph Lymphatic: no lymphadenopathy noted and no lymphedema noted Resp Resp Narrative: moderately diminished breath sounds bilaterally, no wheezes or crackles. On 3L of oxygen by nasal canula Cardio regular rate, regular rhythm, S1 normal heart sound, S2 normal heart sound and no murmurs Peripheral Pulses: pulses 2+ throughout GI normal to inspection, nondistended, normoactive bowel sounds, soft to palpation and non-tender Extremity normal capillary refill, no clubbing, cyanosis or edema and no calf tenderness General Extremity: no tenderness to palpation of joints or extremities Skin General Skin Exam: no breakdown Neuro CN's II-XII intact bilaterally, no focal motor deficits, no sensory deficits noted and deep tendon reflexes 2+ bilaterally Motor Exam: strength 5/5 throughout and general weakness Psych thought process normal and cooperative Mood & Affect: anxious Assessment & Plan Assessment/Plan (1) Acute and chronic respiratory failure with hypoxia: (2) Pneumonia: PLAN: Plan #HYpoxia in the setting of chronic respiratory failure due to COPD exacerbation currently on 3L of oyxgen. However the ambulation required 8 L of oxygen and desaturated to the mid 80s. CXR: Showed interstitial fibrotic changes of the lungs with no superimposed alveolar findings to suggest pneumonia or atelectasis. on IV solumedrol. Sputum cultures pending on 3L of oxygen on PO augmentin which was prescribed on outpatient basis by his warp tester. This was continued here. titrate oxygen to maintain sats>90% patient reassured he does not have lung collapse. He did receive IV Lasix yesterday. Will consult pulmonology due to his increasing oxygen requirements will diurese with IV lasix 40mg bid till tomorrow morning on Breztri puffs bid. breathing treatment with bronchodilators. #Hypokalemia: K is 3.4. Will replace and trend #Paroxysmal afib on coumadin. INR is 2.4 today. On dofetilide and cardizem. #Lung nodules follow up with pulmonology on outpatient basis #GERD: on PPI #History of gout: not having any flare up. Stable. On allopurinol. DVT prophylaxis: on coumadin. INR is therapeutic Disposition: for dc when respiratory status is much better improved. Charges/Coding Visit Charges Inpatient E&M: 55917 Subs Hosp L2
[2024-05-13] MEDS: Jantoven 2 MG Tablet PO (17:04)
[2024-05-14] VITALS (11 sets, daily range): BP systolic 104–128; BP diastolic 67–77; PULSE 68–83; RESP 14–22; TEMP 36.3–36.6; O2SAT 84–99; BMI 24.3; BMI 24.8
[2024-05-14] MEDS: Ipratropium/Albuterol Sulfate 3 ML AMPUL.NEB INHALATION ×6 (03:40→23:16)
--- NOTE | 2024-05-14 06:23 | EX.PCM.CONCC ---
Assessment & Plan Assessment/Plan (1) Acute and chronic respiratory failure with hypoxia: PLAN: Plan RECOMMENDATIONS: 1. Supplemental oxygen to maintain saturations at or above 90%. 2. Continue antimicrobials, bronchodilators and steroids. 3. Continue Coumadin and check INR daily. 4. Obtain CT chest. 5. Check strep and urine Legionella antigens along with MRSA screen. 6. Check SIMONE with reflex along with ANCA. 7. Encourage incentive spirometer use and mobilize patient as tolerated. IMPRESSIONS: 1. Acute on chronic hypoxemic respiratory failure The patient has a known history of advanced age COPD and emphysema on triple therapy inhaler regimen and 3 L/min of baseline supplemental oxygen. He presented with worsening shortness of breath and hypoxemia. His chest imaging continues to demonstrate an interstitial lung process, involving the left lung to a greater extent than the right. He has been continued on antimicrobials, bronchodilators and steroids. Although he is not in any form of respiratory distress, the patient apparently desaturated with ambulation yesterday. At this time, given the undifferentiated nature of his persistent hypoxemia, will obtain CT chest and check strep and urine Legionella antigens along with MRSA swab. In addition, given the interstitial process noted on prior chest imaging, autoimmune and vasculitis workup will be undertaken. In the interim, I agree with continuing antibiotics, bronchodilators and steroids. It is reasonable to continue attempts at diuresis as tolerated by hemodynamics and renal function. 2. History of paroxysmal atrial fibrillation/history of lung nodules/GERD/history of tobacco dependency in remission Complicates care, management, recovery and prognosis. Continue home medications as indicated. This note was generated with [employer] dictation software. It may contain incorrect words, spelling, and punctuation that were not noted in checking the note before signing. HPI Consult Data Date of Consult: 05/14/24 HPI Narrative Reason for Consultation: Acute on chronic hypoxemic respiratory failure HPI Narrative: The patient is a 68-year-old male, with a history as outlined below, who presented to the emergency department on May 10 with worsening shortness of breath. The patient has known COPD, prior tobacco abuse history and chronic hypoxemic respiratory failure with a baseline oxygen requirement of 3 L/min. The patient has been maintained on a triple therapy inhaler regimen through the pulmonary medicine clinic on an outpatient basis. He was last seen in our office on April 29, 2024, during which time, the patient was placed on antimicrobials over concerns for an exacerbation. Orders for repeat PFTs and a 6-minute walk test were also placed at that time. On presentation to the emergency department, the patient was noted to be afebrile and hemodynamically stable. Initial laboratory evaluation revealed a white blood cell count of 11,000. Hemoglobin and platelet count were stable. INR was noted to be 2.0. Chemistry profile was notable for a potassium of 2.5. Creatinine was within normal limits. Troponin was within normal limits. BNP was mildly elevated at 154. Chest imaging demonstrated interstitial fibrotic changes. The patient was continued on Augmentin and placed on scheduled bronchodilators and steroids. 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 Near syncope Bradycardia Tobacco dependence Afib Home Medications ?Medication ?Instructions ?Recorded ?Last Taken ?Type dofetilide 500 mcg capsule 500 mcg PO BID heart #180 caps 09/26/23 04/07/24 Rx potassium chloride 10 mEq 10 meq PO DAILY supplement #90 09/26/23 04/07/24 Rx tablet,extended release(part/cryst) tabs denosumab 60 mg/mL subcutaneous 60 mg subcut [id number] osteoperosis 11/29/23 Unknown Rx syringe (Prolia) #1 mL albuterol sulfate 90 mcg/actuation 2 puff inhalation Q6H PRN 01/28/24 04/07/24 Rx aerosol inhaler shortness of breath or wheezing #8.5 grams furosemide 40 mg tablet 40 mg PO DAILY edema 02/28/24 04/07/24 History omega-3 fatty acids 1,000 mg 1,000 mg PO DAILY supplement 02/28/24 04/07/24 History capsule omeprazole 20 mg capsule,delayed 20 mg PO DAILY acid reflux 02/28/24 04/07/24 History release budesonide 160 mcg-glycopyr 9 2 inh inhalation BID shortness of 03/12/24 04/07/24 Rx mcg-formot 4.8 mcg/actuation HFA breath #10.7 grams inhaler (Breztri Aerosphere) allopurinol 300 mg tablet 300 mg PO DAILY gout 04/07/24 04/07/24 History cholecalciferol (vitamin D3) 50 50 mcg PO DAILY supplement 04/07/24 04/07/24 History mcg (2,000 unit) capsule pantoprazole 40 mg tablet,delayed 40 mg PO BID gerd 04/07/24 04/07/24 History release diltiazem HCl 240 mg 240 mg PO BID cardiac #60 caps 04/15/24 Unknown Rx capsule,extended release 24 hr (Cardizem CD) warfarin 2 mg tablet 2 mg PO QDAY #30 tabs 04/28/24 Unknown Rx guaifenesin 1,200 mg tablet, 1,200 mg PO Q12H cough #60 tabs 04/29/24 Unknown Rx extended release 12 hr Allergy/AdvReac Type Severity Reaction Status Date / Time secobarbital sodium (From Allergy Unknown Verified 05/10/24 16:22 [place]) venom-honey bee (bee venom Allergy Anaphylaxis Verified 05/10/24 16:22 (honey bee)) Family History Mother Diabetes Hypertension Myocardial infarction CAD (coronary artery disease) Father Hypertension Heart disease Diabetes Myocardial infarction CAD (coronary artery disease) Surgical History History of esophagogastroduodenoscopy (EGD) History of hip replacement Status post peripheral artery angioplasty History of left hip replacement History of cardiac radiofrequency ablation (~04/2008) Social History household members: other details: His mother lives with him. Smoking Status: Former smoker Tobacco: How many years used: 50 how long ago did patient quit smokin alcohol intake: current alcohol intake frequency: a few times a month Alcohol type: beer substance use type: does not use caffeine: No ROS ROS Narrative 10 systems were reviewed with pertinent positives as noted in the HPI above. Physical Exam Const alert and no apparent distress Constitutional Narrative: Sitting in bedside recliner. General Appearance: cooperative HEENT normocephalic and head/scalp atraumatic Eyes PERRL, EOMs intact bilaterally and conjunctivae normal Neck supple General: trachea midline Chest inspection of chest normal Resp normal respiratory effort Auscultation: rales and diminished lung sounds Cardio regular rate and regular rhythm GI normal to inspection, nondistended, normoactive bowel sounds Extremity no clubbing, cyanosis or edema Skin no rashes or lesions noted Neuro CN's II-XII intact bilaterally, moves all extremities and no focal motor deficits Psych cooperative and affect normal Lab / Micro Data 05/14/24 05:40 05/14/24 05:40 Labs: Laboratory Results - last 24 hr 05/13/24 05:38: WBC 16.0 H, RBC 3.22 L, Hgb 9.7 L, Hct 29.6 L, MCV 91.9, MCH 30.1, MCHC 32.8, RDW Std Deviation 50.3 H, RDW Coeff of Vivek 15.1 H, Plt Count 237, MPV 9.6, Immature Gran % (Auto) 1.200 H, Neut % (Auto) 92.9 H, Lymph % (Auto) 3.4 L, [place] % (Auto) 2.4, Eos % (Auto) 0.0, Baso % (Auto) 0.1, Absolute Neuts (auto) 14.9 H, Absolute Lymphs (auto) 0.54 L, Nucleated RBC % 0, PT 26.3 H, INR 2.4, Sodium 136, Potassium 3.6, Chloride 104, Carbon Dioxide 25.0, Anion Gap 7, BUN 9, Creatinine 0.72, Estim Creat Clear Calc 88.38, Est GFR (MDRD) Af Amer 140, Est GFR (MDRD) Non-Af 116, BUN/Creatinine Ratio 12.5, Glucose 119 H, Calcium 8.4 L Charges/Coding Visit Charges Inpatient E&M: 02261 Init Hosp L3
[2024-05-14 06:56] LABS: International Normalized Ratio 3.3; Prothrombin Time (Protime)PT. 33.1 SECONDS (11.7-14.9)
[2024-05-14 07:03] LABS: Absolute Neutrophil Count 10.9 X10^3/uL (2.0-7.7); Basophil# 0.02 X10^3/uL; Basophil% 0.2 % (0-1); Hematocrit 30.7 % (40-54); Hemoglobin 10.4 g/dL (13.0-16.5); Lymphocyte % 4.9 % (19-41); Mean Corp Hgb Conc 33.9 g/dL (32-36); Mean Corpuscular Hgb 31.1 pg (27.0-32.0); Mean Corpuscular Volume 91.9 fL (80-94); Mean Platelet Vol. 9.8 fl (6.2-12.0); Monocyte# 0.49 X10^3/uL; NRBC Flagged by Analyzer 0 % (0-5); Neutrophil # 10.93 X10^3/uL (2.7-7.7); Neutrophil % 88.9 % (47-70); POSITIVE DIFFERENTIAL YES; Platelet Count 265 K/mm3 (150-450); RBC Distribution Width CV 15.2 % (11.6-14.6); RBC Distribution Width SD 51.3 fl (35.1-43.9); Red Blood Count 3.34 M/mm3 (4.6-6.2); White Blood Count 12.3 K/mm3 (4.4-11.0)
[2024-05-14 07:06] LABS: Anion Gap 7 (5-15); BUN 10 mg/dL (7-18); BUN/Creat Ratio 14.1 RATIO (10-20); Calcium,Total 8.5 mg/dL (8.5-10.1); Chloride 107 mmol/L (98-107); Creatinine, Serum 0.71 mg/dL (0.70-1.30); EST Glomerular Filtration Rate 117 mL/min (>60); Est Glom Filt Rate - Afr Amer 142 mL/min (>60); Estimated Creatinine Clearance 88.38 ml/min; Glucose 154 mg/dL (74-106); Potassium 3.3 mmol/L (3.5-5.1); Sodium Level 138 mmol/L (136-145)
--- NOTE | 2024-05-14 07:36 | CT_ITS ---
EXAM: CT ANGIOGRAPHY CHEST WITHOUT AND WITH INTRAVENOUS CONTRAST CLINICAL INDICATION: Hypoxemia TECHNIQUE: Helically acquired angiography images were obtained of the chest without and with intravenous contrast. This CT exam was performed using one or more of the following dose reduction techniques: automated exposure control, adjustment of the mA and/or kV according to patient size, and/or use of iterative reconstruction technique. MIP reconstructed images were created and reviewed. CONTRAST: IV 100mL Isovue-370 RADIATION DOSE: CTDIvol = 11.96 mGy, DLP = 338.78 mGy-cm COMPARISON: CTA chest with contrast 04/07/2024. FINDINGS: PULMONARY ARTERIES: Unremarkable. Normal in caliber. No evidence of pulmonary embolism. AORTA: Unremarkable. Normal in caliber. No evidence of dissection. GREAT VESSELS OF AORTIC ARCH: Unremarkable. Normal in caliber. No evidence of dissection. LUNGS AND PLEURAL SPACES: Pulmonary hyperinflation with flattening of the hemidiaphragms. Mild decreased left lung volume when compared to the right. Centrilobular cystic emphysema and paraseptal cystic emphysema in the upper lobes more than the lower lobes. Prominent interlobular septal thickening of the entire left upper lobe and left lung base. Smaller areas of interlobular septal thickening in the right middle lobe and the right upper lobe along the major fissure and smaller portions of the right posterior lower lobe. There are areas of traction bronchiectasis in the right lower lobe. No mass. No pleural effusion or thickening. No pneumothorax. HEART: Unremarkable. Heart size is normal. No pericardial effusion. No significant coronary artery calcifications. MEDIASTINUM: Unremarkable. No mediastinal or hilar adenopathy. Esophagus is unremarkable. No hiatal hernia. THYROID: Unremarkable. No thyroid lesions. BONES/JOINTS: Pronounced pancake compression fracture deformity involving T8 vertebral body and mild anterior wedge compression fracture of the upper T9 and upper T12 vertebral bodies. Moderate old central compression fracture of the L2 superior endplate. These were present previously and are unchanged. No suspicious lytic or blastic abnormality. CT/CTA Chest W/WO Contrast IMPRESSION: 1. No acute findings in the visualized arteries of the chest. 2. Centrilobular cystic emphysema more than paraseptal cystic emphysema of the lungs, greater in the upper lobes with chronic interlobular septal thickening with traction bronchiectasis in the left upper lobe, portions of the left lower lobe and smaller portions of the right middle lobe and right upper lobe along the major fissure. In my opinion, these are chronic and were present previously. 3. Pronounced old pancake compression fracture involving T11 vertebral body and mild old anterior wedge compression fractures of the upper T9 upper T12 vertebral bodies. Moderate old central compression fracture of the L2 superior endplate. These are unchanged. COMMENT: The presence of pulmonary emphysema on CT isn''t independent risk factor for lung cancer. For patients 50-77 years old, consider low-dose CT lung cancer screening into the future. Electronically Signed: Miguel Teixeira MD at 9:23 EDT ,
[2024-05-14] MEDS: Amox/Clavulanate 875 MG Tablet PO ×2 (08:52→16:28)
[2024-05-14] MEDS: Allopurinol 300 MG Tablet PO (08:53)
[2024-05-14] MEDS: predniSONE 20 MG Tablet 40 MG PO (08:53)
[2024-05-14] MEDS: dilTIAZem CD 240 MG Capsule PO ×2 (08:53→20:16)
[2024-05-14] MEDS: guaiFENesin 1,200 MG Tablet 1200 MG PO ×2 (08:54→20:16)
[2024-05-14] MEDS: Dofetilide 250 MCG Capsule 500 MCG PO ×2 (08:54→20:17)
[2024-05-14] MEDS: Pantoprazole Sodium 40 MG Tablet PO ×2 (08:54→20:17)
[2024-05-14] MEDS: Potassium Chloride Oral Tablet 20 MEQ 40 MEQ PO (09:14)
[2024-05-14] MEDS: Furosemide 40 MG/4 ML Vial IV (09:36)
[2024-05-14] MEDS: 0.9% Saline Lock 10 ML Syringe IV (09:36)
--- NOTE | 2024-05-14 11:38 | PN_ITS ---
Subjective Subjective Patient seen and examined. He had no active complaints. He denied any worsening of his shortness of breath, and denied any cough, chest pain, nausea, vomiting or any other symptoms. Review of systems is otherwise negative. Pulmonology on board. Objective Data Objective Data Vital Signs: Vital Signs Temp Pulse Resp BP Pulse Ox O2 Del Method O2 Flow Rate 97.3 F L 75 18 110/67 98 Nasal Cannula 4 05/14/24 08:49 05/14/24 10:07 05/14/24 10:07 05/14/24 08:49 05/14/24 08:49 05/14/24 08:49 05/14/24 08:49 Oxygen Flow Rate (L/min) [ 15 AMBULATING with Oxygen #4] Oxygen Flow Rate (L/min) [ 8 AMBULATING with Oxygen #3] Oxygen Flow Rate (L/min) [ 6 AMBULATING with Oxygen #2] Oxygen Flow Rate (L/min) [ 4 AMBULATING with Oxygen #1] Oxygen Flow Rate (L/min) 4 Oxygen Delivery Method Nasal Cannula Weight: 164 lb 9.6 oz Body Mass Index (BMI) 24.3 Intake & Output: Intake and Output for Last 24 Hours 05/12/24 05/13/24 05/14/24 23:59 23:59 23:59 Intake Total 640 / 1280 1260 / 1680 840 / 840 Balance 640 / 1280 1260 / 1680 840 / 840 Lab / Micro Data 05/14/24 05:40 05/14/24 05:40 Labs: Laboratory Results - last 24 hr 05/14/24 05:40: WBC 12.3 H, RBC 3.34 L, Hgb 10.4 L, Hct 30.7 L, MCV 91.9, MCH 31.1, MCHC 33.9, RDW Std Deviation 51.3 H, RDW Coeff of Vivek 15.2 H, Plt Count 265, MPV 9.8, Immature Gran % (Auto) 2.000 H, Neut % (Auto) 88.9 H, Lymph % (Auto) 4.9 L, Bowie % (Auto) 4.0, Eos % (Auto) 0.0, Baso % (Auto) 0.2, Absolute Neuts (auto) 10.9 H, Absolute Lymphs (auto) 0.60 L, Nucleated RBC % 0, PT 33.1 H , INR 3.3, Sodium 138, Potassium 3.3 L, Chloride 107, Carbon Dioxide 24.0, Anion Gap 7, BUN 10, Creatinine 0.71, Estim Creat Clear Calc 88.38, Est GFR (MDRD) Af Amer 142, Est GFR (MDRD) Non-Af 117, BUN/Creatinine Ratio 14.1, Glucose 154 H, Calcium 8.5 Micro: Microbiology 05/14/24 08:30 Urine, Clean Catch Legionella Antigen - Final 05/14/24 08:30 Urine, Clean Catch Streptococcus pneumoniae Antigen (M - Final 05/10/24 23:48 Mucosa - Nasopharyngeal Respiratory Panel (PCR) - Final 05/10/24 17:51 Mucosa - Nose SARS-CoV-2, Influenza & RSV (PCR) - Final Radiography Diagnostic Testing: Radiology Impression Chest CTA 05/14/24 07:36 IMPRESSION: 1. No acute findings in the visualized arteries of the chest. 2. Centrilobular cystic emphysema more than paraseptal cystic emphysema of the lungs, greater in the upper lobes with chronic interlobular septal thickening with traction bronchiectasis in the left upper lobe, portions of the left lower lobe and smaller portions of the right middle lobe and right upper lobe along the major fissure. In my opinion, these are chronic and were present previously. 3. Pronounced old pancake compression fracture involving T11 vertebral body and mild old anterior wedge compression fractures of the upper T9 upper T12 vertebral bodies. Moderate old central compression fracture of the L2 superior endplate. These are unchanged. COMMENT: The presence of pulmonary emphysema on CT isn''t independent risk factor for lung cancer. For patients 50-77 years old, consider low-dose CT lung cancer screening into the future. Electronically Signed: Miguel Teixeira MD at 9:23 EDT , Physical Exam Const alert, oriented x3 and no apparent distress General Appearance: cooperative HEENT normocephalic and head/scalp atraumatic Eyes PERRL and EOMs intact bilaterally Neck no lymphadenopathy and supple Lymph Lymphatic: no lymphadenopathy noted and no lymphedema noted Resp Resp Narrative: moderately diminished breath sounds bilaterally, no wheezes or crackles. On 4 L of oxygen by nasal canula Cardio regular rate, regular rhythm, S1 normal heart sound, S2 normal heart sound and no murmurs Peripheral Pulses: pulses 2+ throughout GI normal to inspection, nondistended, normoactive bowel sounds, soft to palpation and non-tender Extremity normal capillary refill, no clubbing, cyanosis or edema and no calf tenderness General Extremity: no tenderness to palpation of joints or extremities Skin General Skin Exam: no breakdown Neuro CN's II-XII intact bilaterally, no focal motor deficits, no sensory deficits noted and deep tendon reflexes 2+ bilaterally Motor Exam: strength 5/5 throughout and general weakness Psych thought process normal and cooperative Mood & Affect: anxious Assessment & Plan Assessment/Plan (1) Acute and chronic respiratory failure with hypoxia: (2) Pneumonia: PLAN: Plan #HYpoxia in the setting of chronic respiratory failure due to COPD exacerbation * currently on 4 L of oyxgen. However with ambulation yesterday he required 8 L of oxygen and desaturated to the mid 80s. * CXR: Showed interstitial fibrotic changes of the lungs with no superimposed alveolar findings to suggest pneumonia or atelectasis. * on IV solumedrol. Sputum cultures pending * pulmonlogy consulted; per pulmonlogy, to continue antimicrobials, bronchodilators an steroids. to check Strep and legionella antigens, MRSA screen nad SIMONE with reflex along with ANCA. * CT chest ordered * diurese as tolerated. * breathing treatment with bronchodilators * * #Hypokalemia: K is 3.3 today. Will replace and trend #Paroxysmal afib * on coumadin. INR is 3.3 today. * On dofetilide and cardizem. * goal INR is 2-3. Will hold coumadin dose today due to INR of 3.3. * #Lung nodules * follow up with pulmonology on outpatient basis * #GERD: on PPI #History of gout: not having any flare up. Stable. On allopurinol. DVT prophylaxis: on coumadin. coumadin being held today because iNR is elevated at 3.3. Disposition: for dc when respiratory status is much better improved. Charges/Coding Visit Charges Inpatient E&M: 60237 Subs Hosp L2
[2024-05-14] MEDS: Jantoven 2 MG Tablet PO (16:28)
[2024-05-15] VITALS (13 sets, daily range): BP systolic 103–113; BP diastolic 76–87; PULSE 91–114; RESP 17–20; TEMP 36.3–36.7; O2SAT 86–98; BMI 24.7; BMI 23.0
[2024-05-15] MEDS: Ipratropium/Albuterol Sulfate 3 ML AMPUL.NEB INHALATION ×6 (03:34→23:38)
[2024-05-15 06:15] LABS: Hematocrit 31.6 % (40-54); Hemoglobin 10.3 g/dL (13.0-16.5); Mean Corp Hgb Conc 32.6 g/dL (32-36); Mean Corpuscular Hgb 29.9 pg (27.0-32.0); Mean Corpuscular Volume 91.9 fL (80-94); Mean Platelet Vol. 9.4 fl (6.2-12.0); POSITIVE COUNT YES; POSITIVE MORPHOLOGY YES; Platelet Count 288 K/mm3 (150-450); RBC Distribution Width CV 15.3 % (11.6-14.6); RBC Distribution Width SD 51.2 fl (35.1-43.9); Red Blood Count 3.44 M/mm3 (4.6-6.2); White Blood Count 10.4 K/mm3 (4.4-11.0)
[2024-05-15 06:18] LABS: Differential Indicated MANUAL DIFF
[2024-05-15 06:35] LABS: International Normalized Ratio 3.9; Prothrombin Time (Protime)PT. 37.7 SECONDS (11.7-14.9)
[2024-05-15 06:49] LABS: Anion Gap 6 (5-15); BUN 9 mg/dL (7-18); BUN/Creat Ratio 12.7 RATIO (10-20); Calcium,Total 8.8 mg/dL (8.5-10.1); Chloride 106 mmol/L (98-107); Creatinine, Serum 0.71 mg/dL (0.70-1.30); EST Glomerular Filtration Rate 117 mL/min (>60); Est Glom Filt Rate - Afr Amer 142 mL/min (>60); Estimated Creatinine Clearance 88.38 ml/min; Glucose 99 mg/dL (74-106); Potassium 3.6 mmol/L (3.5-5.1); Sodium Level 138 mmol/L (136-145)
[2024-05-15 07:44] LABS: Lymphocyte 8 % (19-41); Metamyelocyte 4 % (0-1); Monocyte 2 % (0-10); Neutrophil-Band 1 % (0-5); Neutrophil-Segmented 83 % (47-70); Platelet Estimate ADEQUATE (ADEQ); Promyelocyte 2 % (0-0); Red Cell Morphology NORM C+C NORMAL (NORM C&C); Total Cells Counted 100 (MANUAL DIFF)
[2024-05-15 07:45] LABS: Absolute Lymphocyte Count 0.83 X10^3/uL (0.83-4.51); Absolute Neutrophil Count 8.7 X10^3/uL (2.0-7.7); Lymphocyte # 0.83 X10^3/ul (0.83-4.51)
--- NOTE | 2024-05-15 08:37 | EKG12_ITS ---
Test Reason : PALP Blood Pressure : / mmHG Vent. Rate : 109 BPM Atrial Rate : 242 BPM P-R Int : 000 ms QRS Dur : 082 ms QT Int : 358 ms P-R-T Axes : 000 076 -04 degrees QTc Int : 482 ms Atrial flutter with variable A-V block with premature ventricular or aberrantly conducted complexes Anteroseptal infarct (cited on or before 09-AUG-2014) Abnormal ECG Confirmed by LEANNA REIS, GIRISH ([id number]), story editor JOSE PEACE ([id number]) on 05/21/2024 2:06:49 PM Referred By: Confirmed By:GIRISH RAM MD
--- NOTE | 2024-05-15 08:50 | PN.CC_ITS ---
Assessment & Plan Assessment/Plan (1) Acute and chronic respiratory failure with hypoxia: PLAN: Plan RECOMMENDATIONS: 1. Supplemental oxygen to maintain saturations at or above 90%. 2. Continue antimicrobials, bronchodilators and steroids. 3. Hold Coumadin given supratherapeutic INR. 4. Await results of autoimmune workup. 5. Encourage incentive spirometer use and mobilize patient as tolerated. 6. Perform ambulatory oximetry prior to discharge home. The patient can be discharged home once he is able to ambulate on 6 L/min or less of supplemental oxygen, with plans to follow-up in the pulmonary medicine clinic after discharge. IMPRESSIONS: 1. Acute on chronic hypoxemic respiratory failure The patient has a known history of advanced age COPD and emphysema on triple therapy inhaler regimen and 3 L/min of baseline supplemental oxygen. He presented with worsening shortness of breath and hypoxemia. His chest imaging continues to demonstrate an interstitial lung process, involving the left lung to a greater extent than the right. The patient has known significant emphysema with what appears to be a superimposed interstitial lung process of unclear etiology. The patient has been maintained on antimicrobials, bronchodilators and steroids. Autoimmune/vasculitis workup was sent yesterday. For now, we will continue attempts at diuresis as tolerated by hemodynamics and renal function. 2. History of paroxysmal atrial fibrillation/history of lung nodules/GERD/history of tobacco dependency in remission Complicates care, management, recovery and prognosis. Continue home medications as indicated. This note was generated with [employer] dictation software. It may contain incorrect words, spelling, and punctuation that were not noted in checking the note before signing. Subjective Subjective The patient was seen and examined at the bedside this morning. Events from the last 24 hours have been reviewed. The patient is currently afebrile, hemodynamically stable and maintaining appropriate oxygen saturations on 4 L/min via nasal cannula. CT imaging of the chest completed yesterday demonstrated significant bilateral emphysematous changes along with concerns for an evolving interstitial lung process with traction bronchiectasis. The patient was able to ambulate in the hallway yesterday and required 6 L/min of supplemental oxygen with exertion. His INR is elevated at 3.9 this morning. Chemistry profile was unremarkable. Objective Data Objective Data The patient's most recent lab work, culture data and imaging studies have all been personally reviewed. Sputum culture is currently pending. Strep and urine Legionella antigens were negative. Respiratory viral panel was negative. COVID, influenza and RSV PCR's were negative. Vital Signs: Vital Signs Temp Pulse Resp BP Pulse Ox O2 Del Method O2 Flow Rate 98.0 F 110 H 18 113/83 H 93 Nasal Cannula 4 05/15/24 02:15 05/15/24 03:35 05/15/24 03:35 05/15/24 02:15 05/15/24 03:35 05/15/24 03:35 05/15/24 03:35 Oxygen Flow Rate (L/min) [ 15 AMBULATING with Oxygen #4] Oxygen Flow Rate (L/min) [ 8 AMBULATING with Oxygen #3] Oxygen Flow Rate (L/min) [ 6 AMBULATING with Oxygen #2] Oxygen Flow Rate (L/min) [ 4 AMBULATING with Oxygen #1] Oxygen Flow Rate (L/min) 4 Oxygen Delivery Method Nasal Cannula Weight: 167 lb 8.821 oz Body Mass Index (BMI) 24.7 Intake & Output: Intake and Output for Last 24 Hours 05/13/24 05/14/24 05/15/24 23:59 23:59 23:59 Intake Total 1260 / 1680 2300 / 2300 360 / 360 Balance 1260 / 1680 2300 / 2300 360 / 360 Lab / Micro Data Attestation: I reviewed the patient's lab results. 05/15/24 05:22 05/15/24 05:22 Labs: Laboratory Results - last 24 hr 05/15/24 05:22: WBC 10.4, RBC 3.44 L, Hgb 10.3 L, Hct 31.6 L, MCV 91.9, MCH 29.9, MCHC 32.6, RDW Std Deviation 51.2 H, RDW Coeff of Vivek 15.3 H, Plt Count 288, MPV 9.4, Neut % (Auto) Not Reportable, Absolute Neuts (auto) 8.7 H, Absolute Lymphs (auto) 0.83, Total Counted 100, Neutrophils % (Manual) 83 H, Band Neutrophils % 1, Lymphocytes % (Manual) 8 L, Monocytes % (Manual) 2, M etamyelocytes % 4 H, Promyelocytes % 2 H, Diff Path Review November, Platelet Estimate ADEQUATE, RBC Morphology NORM C+C, PT 37.7 H, INR 3.9, Sodium 138, Potassium 3.6, Chloride 106, Carbon Dioxide 25.0, Anion Gap 6, BUN 9, Creatinine 0.71, Estim Creat Clear Calc 88.38, Est GFR (MDRD) Af Amer 142, Est GFR (MDRD) Non-Af 117, BUN/Creatinine Ratio 12.7, Glucose 99, Calcium 8.8 Micro: Microbiology 05/13/24 12:50 Sputum, Expectorated/Coughed Gram Stain - Final 05/14/24 09:10 Nasal Secretion MRSA (PCR) - Final 05/14/24 08:30 Urine, Clean Catch Legionella Antigen - Final 05/14/24 08:30 Urine, Clean Catch Streptococcus pneumoniae Antigen (M - Final 05/10/24 23:48 Mucosa - Nasopharyngeal Respiratory Panel (PCR) - Final 05/10/24 17:51 Mucosa - Nose SARS-CoV-2, Influenza & RSV (PCR) - Final Radiography Diagnostic Testing: Radiology Impression Chest CTA 05/14/24 07:36 IMPRESSION: 1. No acute findings in the visualized arteries of the chest. 2. Centrilobular cystic emphysema more than paraseptal cystic emphysema of the lungs, greater in the upper lobes with chronic interlobular septal thickening with traction bronchiectasis in the left upper lobe, portions of the left lower lobe and smaller portions of the right middle lobe and right upper lobe along the major fissure. In my opinion, these are chronic and were present previously. 3. Pronounced old pancake compression fracture involving T11 vertebral body and mild old anterior wedge compression fractures of the upper T9 upper T12 vertebral bodies. Moderate old central compression fracture of the L2 superior endplate. These are unchanged. COMMENT: The presence of pulmonary emphysema on CT isn''t independent risk factor for lung cancer. For patients 50-77 years old, consider low-dose CT lung cancer screening into the future. Electronically Signed: Miguel Teixeira MD at 9:23 EDT , Physical Exam Const alert, oriented x3 and no apparent distress General Appearance: cooperative HEENT normocephalic, head/scalp atraumatic and moist oral mucous membranes Eyes PERRL, EOMs intact bilaterally and conjunctivae normal Neck supple General: trachea midline Chest inspection of chest normal Resp normal respiratory effort Auscultation: rales and diminished lung sounds Cardio regular rate and regular rhythm GI normal to inspection, nondistended, normoactive bowel sounds Extremity no clubbing, cyanosis or edema Skin no rashes or lesions noted Neuro CN's II-XII intact bilaterally, moves all extremities and no focal motor deficits Psych cooperative and affect normal Charges/Coding Visit Charges Inpatient E&M: 35652 Subs Hosp L2
[2024-05-15] MEDS: predniSONE 20 MG Tablet 40 MG PO (09:33)
[2024-05-15] MEDS: Dofetilide 250 MCG Capsule 500 MCG PO ×2 (09:33→22:07)
[2024-05-15] MEDS: Pantoprazole Sodium 40 MG Tablet PO ×2 (09:33→22:07)
[2024-05-15] MEDS: Allopurinol 300 MG Tablet PO (09:33)
[2024-05-15] MEDS: Furosemide 40 MG/4 ML Vial IV ×2 (09:33→15:49)
[2024-05-15] MEDS: Amox/Clavulanate 875 MG Tablet PO ×2 (09:33→18:50)
[2024-05-15] MEDS: guaiFENesin 1,200 MG Tablet 1200 MG PO ×2 (09:33→22:06)
[2024-05-15] MEDS: dilTIAZem CD 240 MG Capsule PO ×2 (09:33→18:50)
[2024-05-15] MEDS: 0.9% Saline Lock 10 ML Syringe IV (09:39)
[2024-05-15 09:50] LABS: Pathologist Review Reviewed
--- NOTE | 2024-05-15 12:19 | PN_ITS ---
Subjective Subjective Patient seen and examined. He had no active complaints. Review of systems was otherwise negative. He is on 4L of oxygen. He has remained hemodynamically stable. Objective Data Objective Data Vital Signs: Vital Signs Temp Pulse Resp BP Pulse Ox O2 Del Method O2 Flow Rate 97.3 F L 98 20 H 112/87 H 96 Nasal Cannula 2 05/15/24 09:20 05/15/24 10:46 05/15/24 10:46 05/15/24 09:20 05/15/24 12:00 05/15/24 09:24 05/15/24 12:00 Oxygen Flow Rate (L/min) [At 4 REST with Oxygen] Oxygen Flow Rate (L/min) [ 15 AMBULATING with Oxygen #4] Oxygen Flow Rate (L/min) [ 8 AMBULATING with Oxygen #3] Oxygen Flow Rate (L/min) [ 4 AMBULATING with Oxygen #2] Oxygen Flow Rate (L/min) [ 2 AMBULATING with Oxygen #1] Oxygen Flow Rate (L/min) 4 Oxygen Delivery Method Nasal Cannula Weight: 155 lb 9 oz Body Mass Index (BMI) 23.0 Intake & Output: Intake and Output for Last 24 Hours 05/13/24 05/14/24 05/15/24 23:59 23:59 23:59 Intake Total 1260 / 1680 2300 / 2300 360 / 360 Balance 1260 / 1680 2300 / 2300 360 / 360 Lab / Micro Data 05/15/24 05:22 05/15/24 05:22 Labs: Laboratory Results - last 24 hr 05/14/24 05:40: B-Natriuretic Peptide Cancelled, Procalcitonin Cancelled 05/15/24 05:22: WBC 10.4, RBC 3.44 L, Hgb 10.3 L, Hct 31.6 L, MCV 91.9, MCH 29.9, MCHC 32.6, RDW Std Deviation 51.2 H, RDW Coeff of Vivek 15.3 H, Plt Count 288, MPV 9.4, Neut % (Auto) Not Reportable, Absolute Neuts (auto) 8.7 H, Absolute Lymphs (auto) 0.83, Total Counted 100, Neutrophils % (Manual) 83 H, Band Neutrophils % 1, Lymphocytes % (Manual) 8 L, Monocytes % (Manual) 2, M etamyelocytes % 4 H, Promyelocytes % 2 H, Diff Path Review Reviewed, Platelet Estimate ADEQUATE, RBC Morphology NORM C+C, PT 37.7 H, INR 3.9, Sodium 138, Potassium 3.6, Chloride 106, Carbon Dioxide 25.0, Anion Gap 6, BUN 9, Creatinine 0.71, Estim Creat Clear Calc 88.38, Est GFR (MDRD) Af Amer 142, Est GFR (MDRD) Non-Af 117, BUN/Creatinine Ratio 12.7, Glucose 99, Calcium 8.8 Micro: Microbiology 05/13/24 12:50 Sputum, Expectorated/Coughed Gram Stain - Final 05/13/24 12:50 Sputum, Expectorated/Coughed Respiratory Culture - Final Presumptive C albicans 05/14/24 09:10 Nasal Secretion MRSA (PCR) - Final 05/14/24 08:30 Urine, Clean Catch Legionella Antigen - Final 05/14/24 08:30 Urine, Clean Catch Streptococcus pneumoniae Antigen (M - Final 05/10/24 23:48 Mucosa - Nasopharyngeal Respiratory Panel (PCR) - Final 05/10/24 17:51 Mucosa - Nose SARS-CoV-2, Influenza & RSV (PCR) - Final Physical Exam Const alert, oriented x3 and no apparent distress General Appearance: cooperative HEENT normocephalic and head/scalp atraumatic Eyes PERRL and EOMs intact bilaterally Neck no lymphadenopathy and supple Lymph Lymphatic: no lymphadenopathy noted and no lymphedema noted Resp Resp Narrative: moderately diminished breath sounds bilaterally, no wheezes or crackles. On 4 L of oxygen by nasal canula Cardio regular rate, regular rhythm, S1 normal heart sound, S2 normal heart sound and no murmurs Peripheral Pulses: pulses 2+ throughout GI normal to inspection, nondistended, normoactive bowel sounds, soft to palpation and non-tender Extremity normal capillary refill, no clubbing, cyanosis or edema and no calf tenderness General Extremity: no tenderness to palpation of joints or extremities Skin General Skin Exam: no breakdown Neuro CN's II-XII intact bilaterally, no focal motor deficits, no sensory deficits noted and deep tendon reflexes 2+ bilaterally Motor Exam: strength 5/5 throughout and general weakness Psych thought process normal and cooperative Mood & Affect: anxious Assessment & Plan Assessment/Plan (1) Acute and chronic respiratory failure with hypoxia: (2) Pneumonia: PLAN: Plan #HYpoxia in the setting of chronic respiratory failure due to COPD exacerbation * currently on 4 L of oyxgen. With ambulation he required 4 L of oxygen which is much better than previously when he was requiring up to 8 L. * CXR: Showed interstitial fibrotic changes of the lungs with no superimposed alveolar findings to suggest pneumonia or atelectasis. * on PO prednisone. Sputum cultures pending * CTA chest showed no evidence of PE and showed centrilobular cystic emphysema more than paraseptal cystic emphysema of the lungs greater in the upper lobes which were thought to be chronic and present previously as well as pronounced old punctate compression fracture involving T11 and mild old anterior wedge compression fractures of the upper T9 and T12 vertebral body * pulmonology consulted; per pulmonlogy, to continue antimicrobials, bronchodilators and steroids. to check Strep and legionella antigens, MRSA screen nad SIMONE with reflex along with ANCA. * diurese as tolerated. * breathing treatment with bronchodilators * * #Hypokalemia: Resolved. Potassium is 3.6. #Paroxysmal afib * on coumadin. INR is 3.3 today. * On dofetilide and cardizem. INR today is 3.9. Will hold coumadin today due to INR being above normal * #Lung nodules * follow up with pulmonology on outpatient basis * #GERD: on PPI #History of gout: not having any flare up. Stable. On allopurinol. DVT prophylaxis: on coumadin. coumadin being held today because iNR is elevated at 3.9 Disposition: for dc when respiratory status is much better improved and INR is closer to therapeutic range, likely over the next 24-48 hours Charges/Coding Visit Charges Inpatient E&M: 76065 Subs Hosp L2
[2024-05-16] VITALS (8 sets, daily range): BP systolic 98–113; BP diastolic 76–85; PULSE 77–88; RESP 18–20; TEMP 36.1–36.4; O2SAT 83–96; BMI 21.9
[2024-05-16] MEDS: Ipratropium/Albuterol Sulfate 3 ML AMPUL.NEB INHALATION ×3 (03:50→11:04)
[2024-05-16 06:19] LABS: Hematocrit 31.9 % (40-54); Hemoglobin 10.4 g/dL (13.0-16.5); Mean Corp Hgb Conc 32.6 g/dL (32-36); Mean Corpuscular Hgb 30.3 pg (27.0-32.0); Mean Platelet Vol. 9.4 fl (6.2-12.0); POSITIVE COUNT YES; POSITIVE MORPHOLOGY YES; Platelet Count 295 K/mm3 (150-450); RBC Distribution Width CV 15.3 % (11.6-14.6); RBC Distribution Width SD 52.1 fl (35.1-43.9); Red Blood Count 3.43 M/mm3 (4.6-6.2); White Blood Count 9.3 K/mm3 (4.4-11.0)
[2024-05-16 06:31] LABS: Differential Indicated MANUAL DIFF
[2024-05-16 07:08] LABS: Anion Gap 5 (5-15); BUN 11 mg/dL (7-18); BUN/Creat Ratio 14.5 RATIO (10-20); Calcium,Total 8.4 mg/dL (8.5-10.1); Chloride 104 mmol/L (98-107); Creatinine, Serum 0.76 mg/dL (0.70-1.30); EST Glomerular Filtration Rate 108 mL/min (>60); Est Glom Filt Rate - Afr Amer 131 mL/min (>60); Estimated Creatinine Clearance 83.92 ml/min; Glucose 103 mg/dL (74-106); Potassium 3.4 mmol/L (3.5-5.1); Sodium Level 138 mmol/L (136-145)
[2024-05-16 07:30] LABS: Lymphocyte 19 % (19-41); Metamyelocyte 3 % (0-1); Monocyte 6 % (0-10); Myelocyte 5 % (0-0); Neutrophil-Segmented 67 % (47-70); Total Cells Counted 100 (MANUAL DIFF)
[2024-05-16 07:32] LABS: Platelet Estimate ADEQUATE (ADEQ); Red Cell Morphology NORM C+C NORMAL (NORM C&C)
[2024-05-16 07:33] LABS: Absolute Lymphocyte Count 1.77 X10^3/uL (0.83-4.51); Absolute Neutrophil Count 6.2 X10^3/uL (2.0-7.7)
[2024-05-16 09:11] LABS: International Normalized Ratio 2.9; Prothrombin Time (Protime)PT. 29.8 SECONDS (11.7-14.9)
[2024-05-16] MEDS: Allopurinol 300 MG Tablet PO (09:40)
[2024-05-16] MEDS: predniSONE 20 MG Tablet 40 MG PO (09:40)
[2024-05-16] MEDS: guaiFENesin 1,200 MG Tablet 1200 MG PO (09:40)
[2024-05-16] MEDS: Pantoprazole Sodium 40 MG Tablet PO (09:41)
--- NOTE | 2024-05-16 09:57 | PN.CC_ITS ---
Objective Data Objective Data Vital Signs: Vital Signs Last response 3 Temperature 36.1 C L 05/16/24 09:38 Temperature Source Temporal 05/16/24 09:38 Pulse Rate 110 H 05/16/24 09:38 Pulse Strength Normal (2+) 05/15/24 09:22 Respiratory Rate 18 05/16/24 09:38 Respiratory Effort Normal, Non-Labored 05/16/24 08:25 Respiratory Depth Normal 05/16/24 08:25 Respiratory Pattern Normal 05/16/24 08:25 Blood Pressure 98/81 H 05/16/24 09:38 Blood Pressure Mean 86 05/16/24 09:38 Blood Pressure Source Monitor 05/16/24 09:38 Blood Pressure Position Sitting 05/16/24 09:38 Blood Pressure Location Left Arm 05/16/24 09:38 Pulse Ox 95 05/16/24 09:38 Oxygen Delivery Method Nasal Cannula 05/16/24 09:38 Oxygen Flow Rate (L/min) 3 05/16/24 09:38 I&O: I&O Last 24 Hours 3 05/15/24 05/15/24 05/16/24 11:59 23:59 11:59 Intake Total 360 / 1660 1300 / 1660 Balance 360 / 1660 1300 / 1660 I&O: Total Stay 3 05/10/24 16:21 thru 05/16/24 04:02 Intake Total 7566 Balance 7566 Current Meds Ordered / Administered: Current meds ordered / Administered 3 Generic Name Dose Route Start Last Admin Trade Name Freq PRN Reason Stop Dose Admin Acetaminophen 650 mg 05/10/24 21:52 Acetaminophen 325 Mg Tablet PO Q6H PRN PRN Pain 1-10 Or Fever >100.7 Albuterol Sulfate 2.5 mg 05/10/24 21:52 Albuterol 2.5 Mg/3 Ml Vial.Neb. INHALATION Q2H PRN PRN SOB &/OR WHEEZING Albuterol/Ipratropium 3 ml 05/10/24 23:00 05/16/24 07:19 Ipratropium/Albuterol Sulfate 3 Ml Ampul.Neb INHALATION 3 ml Q4H.RT LOY Administration Allopurinol 300 mg 05/11/24 08:00 05/16/24 09:40 Allopurinol 300 Mg Tablet PO 300 mg DAILYCM LOY Administration Diltiazem HCl 240 mg 05/10/24 22:00 10/18/24 09:52 Diltiazem Cd 240 Mg Capsule PO Not Given BID [facility] Protocol Dofetilide 500 mcg 05/10/24 22:00 05/16/24 09:52 Dofetilide 250 Mcg Capsule PO Not Given BID [facility] Guaifenesin 1,200 mg 05/10/24 22:00 05/16/24 09:40 Guaifenesin 1,200 Mg Tablet PO 1,200 mg BID LOY Administration Melatonin 3 mg 05/10/24 21:52 Melatonin 3 Mg Tablet PO QHS PRN PRN INSOMNIA Pantoprazole Sodium 40 mg 05/10/24 22:00 05/16/24 09:41 Pantoprazole Sodium 40 Mg Tablet PO 40 mg BID LOY Administration Prednisone 40 mg 05/14/24 08:00 05/16/24 09:40 Prednisone 20 Mg Tablet PO 40 mg BREAKFAST [facility] Administration Senna/Docusate Sodium 2 tablet 05/10/24 21:52 Senna/Docusate Sodium 1 Tablet PO BID PRN PRN Constipation Sodium Chloride 10 - 40 ml 05/10/24 20:55 05/15/24 09:39 0.9% Saline Lock 10 Ml Syringe IV 10 ml UD PRN Administration SALINE FLUSH Warfarin Sodium 2 mg 05/11/24 17:00 05/14/24 16:28 Jantoven 2 Mg Tablet PO 2 mg 1700 [facility] Administration Lab / Micro Data 05/16/24 05:22 05/16/24 05:22 Labs: Laboratory Results - last 24 hr 05/14/24 05:40: B-Natriuretic Peptide Cancelled, Procalcitonin Cancelled 05/16/24 05:22: WBC 9.3, RBC 3.43 L, Hgb 10.4 L, Hct 31.9 L, MCV 93.0, MCH 30.3, MCHC 32.6, RDW Std Deviation 52.1 H, RDW Coeff of Vivek 15.3 H, Plt Count 295, MPV 9.4, Neut % (Auto) Not Reportable, Absolute Neuts (auto) 6.2, Absolute Lymphs (auto) 1.77, Total Counted 100, Neutrophils % (Manual) 67, Lymphocytes % (Manual) 19, Monocytes % (Manual) 6, Metamyelocytes % 3 H, Myelocytes % 5 H, Diff Path Review May foll, Platelet Estimate ADEQUATE, RBC Morphology NORM C+C, Sodium 138, Potassium 3.4 L, Chloride 104, Carbon Dioxide 29.0, Anion Gap 5, BUN 11, Creatinine 0.76, Estim Creat Clear Calc 83.92, Est GFR (MDRD) Af Amer 131, Est GFR (MDRD) Non-Af 108, BUN/Creatinine Ratio 14.5, Glucose 103, Calcium 8.4 L 05/16/24 08:42: PT 29.8 H, INR 2.9 Micro: Microbiology 05/13/24 12:50 Sputum, Expectorated/Coughed Gram Stain - Final 05/13/24 12:50 Sputum, Expectorated/Coughed Respiratory Culture - Final Presumptive C albicans Assessment and Plan . Assessment and plan: Critical Care Time: The entirety of this encounter was done via Telemedicine Subjective Subjective Pt seen and examined. Doing well. No acute events. PE: General: Well developed, in no distress HEENT: anicteric Sclera, nl nose; supple neck, no masses Cardiovascular: S1/S2; No rubs, gallops; no displaced PM Respiratory: diminished; no crackles, wheezes, or rhonchi Abdominal: Non-tender; Non distended; hypoBS x 4; No Hepatosplenomegaly Extremities: Warm, well perfused; No clubbing, cyanosis; capillary refill < 2 sec Skin: intact, no rashes Neurological: no gross deficits appreciated A/P: #Acute on chronic hypoxemic respiratory failure #AECOPD #ILD +/- exacerbation #PAF #Pulmonary nodules #Hx tobacco abuse #GERD known history of advanced age COPD and emphysema on triple therapy inhaler regimen and 3 L/min of baseline supplemental oxygen. He presented with worsening shortness of breath and hypoxemia. His chest imaging continues to demonstrate an interstitial lung process, involving the left lung to a greater extent than the right. The patient has known significant emphysema with what appears to be a superimposed interstitial lung process of unclear etiology. -Cont supplemental oxygen to maintain saturations at or above 90%; encourage incentive spirometer use and mobilize patient as tolerated; -SP antimicrobials, bronchodilators and steroids. -Cont diuresis -F/U autoimmune workup -Holding Coumadin given supratherapeutic INR. -Will need ambulatory oximetry prior to discharge home; can be D/C if he is able to ambulate on 6 L/min or less of supplemental oxygen Pt is pending discharge. 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 The entirety of this encounter was completed via telemedicine.
[2024-05-16] MEDS: Dofetilide 250 MCG Capsule 500 MCG PO (12:48)
--- NOTE | 2024-05-16 12:52 | DS.PCM_ITS ---
Providers Date of Admission: 05/10/24 Date of Discharge: 05/16/24 Primary Care Physician: Adriel Pike MD Consultations 05/13/24 12:29 Consult: Entry Clerk / Pulmonary Medicine Routine Consulting Provider: Intensivists/Pulmonary Med Reason for Consult: COPD, hypoxia with increasing oxygen requirements EMERGENT Consult: No MD Notified: Yes Date Notified: 05/13/24 Time Notified: 12:29 Method of Notification: Text Reason For Visit: HYPOXIA COPD EXACERBATION Diagnosis Discharge Diagnosis (1) Acute and chronic respiratory failure with hypoxia: Status: Chronic Code(s): J96.21 - Acute and chronic respiratory failure with hypoxia (2) Pneumonia: Status: Acute Code(s): J18.9 - Pneumonia, unspecified organism Plan #HYpoxia in the setting of chronic respiratory failure due to COPD exacerbation * currently on 4 L of oyxgen. With ambulation he required 4 L of oxygen which is much better than previously when he was requiring up to 8 L. * CXR: Showed interstitial fibrotic changes of the lungs with no superimposed alveolar findings to suggest pneumonia or atelectasis. * on PO prednisone. Sputum cultures pending * CTA chest showed no evidence of PE and showed centrilobular cystic emphysema more than paraseptal cystic emphysema of the lungs greater in the upper lobes which were thought to be chronic and present previously as well as pronounced old punctate compression fracture involving T11 and mild old anterior wedge compression fractures of the upper T9 and T12 vertebral body * pulmonology consulted; per pulmonlogy, to continue antimicrobials, bronchodilators and steroids. to check Strep and legionella antigens, MRSA screen nad SIMONE with reflex along with ANCA. * diurese as tolerated. * breathing treatment with bronchodilators * * #Hypokalemia: Resolved. Potassium is 3.6. #Paroxysmal afib * on coumadin. INR is 3.3 today. * On dofetilide and cardizem. INR today is 3.9. Will hold coumadin today due to INR being above normal * #Lung nodules * follow up with pulmonology on outpatient basis * #GERD: on PPI #History of gout: not having any flare up. Stable. On allopurinol. DVT prophylaxis: on coumadin. coumadin being held today because iNR is elevated at 3.9 Disposition: for dc when respiratory status is much better improved and INR is closer to therapeutic range, likely over the next 24-48 hours Medications at Discharge Home Medications dofetilide 500 mcg capsule 500 mcg PO BID heart #180 caps 09/26/23 potassium chloride 10 mEq tablet,extended release(part/cryst) 10 meq PO DAILY supplement #90 tabs 09/26/23 denosumab 60 mg/mL subcutaneous syringe (Prolia) 60 mg subcut [id number] osteoperosis #1 mL 11/29/23 albuterol sulfate 90 mcg/actuation aerosol inhaler 2 puff inhalation Q6H PRN shortness of breath or wheezing #8.5 grams 01/28/24 furosemide 40 mg tablet 40 mg PO DAILY edema 02/28/24 omega-3 fatty acids 1,000 mg capsule 1,000 mg PO DAILY supplement 02/28/24 omeprazole 20 mg capsule,delayed release 20 mg PO DAILY acid reflux 02/28/24 budesonide 160 mcg-glycopyr 9 mcg-formot 4.8 mcg/actuation HFA inhaler (Breztri Aerosphere) 2 inh inhalation BID shortness of breath #10.7 grams 03/12/24 allopurinol 300 mg tablet 300 mg PO DAILY gout 04/07/24 cholecalciferol (vitamin D3) 50 mcg (2,000 unit) capsule 50 mcg PO DAILY supplement 04/07/24 pantoprazole 40 mg tablet,delayed release 40 mg PO BID gerd 04/07/24 warfarin 2 mg tablet 2 mg PO QDAY #30 tabs 04/28/24 guaifenesin 1,200 mg tablet, extended release 12 hr 1,200 mg PO Q12H cough #60 tabs 04/29/24 diltiazem HCl 120 mg tablet (Cardizem) 120 mg PO BID #60 tabs 05/16/24 prednisone 10 mg tablets in a dose pack See Taper PO UD #21 tabs 05/16/24 Hospital Course Operations None Procedures None Summary of Care Provided Minutes Spent on Discharge: 55 Hospital Course: Patient is a 68-year-old male with an extensive past medical history as outlined including A-fib, GERD, DVT and gout with admitted to the ED on 05/10/2024 with a complaint of shortness of breath which had been going on for 2 days prior to admission. He had finished antibiotic course for COPD exacerbation a few days prior to admission. He usually with 3 L of oxygen at night but usually does not wear oxygen during the day. On admission he was found to be saturating at 78% on room air. He also complained of chills and sweats. Review of systems otherwise negative. He was admitted and managed for acute exacerbation of COPD as well as acute hypoxia in the setting of chronic respiratory failure from COPD. He was started on IV Solu-Medrol and his Augmentin which had been on at home was continued. His Coumadin was also continued and pulmonology was initially not consulted. Patient initially appeared to improved but subsequently became more short of breath requiring increasing amounts of oxygen. He was diuresed and pulmonology was consulted. Pulmonology continue the diuresis. Chest CT ordered showed no evidence of PE and showed centrilobular cystic emphysema more than paraseptal cystic emphysema of the lungs greater in the upper lobes which were thought to be chronic and present previously as well as pronounced old punctate compression fracture involving T11 and mild old anterior wedge compression fractures of the upper T9 and T12 vertebral body. his breathing gradually improved and he felt better. He had a walking pulse ox which showed that he required 4 L of oxygen with ambulation. He was discharged home on 05/16/2024 on his 4 L of oxygen. Hospital course was complicated by supratherapeutic INR but this came down after his Coumadin was held. He was discharged home to follow-up with his air bag stripper within 1 to 2 weeks. He was discharged on a prednisone taper to complete his course of Augmentin. Of note, patient's BP had been running low, so his cardizem was cut down from 240mg bid to 120mg bid. He is to continue with his tikosyn. His INR was 2.9 at discharge. He is follow-up with his PCP within a week for a recheck of his INR to make sure is therapeutic and for his Coumadin dose to be adjusted as needed. Patient seen and examined prior to discharge. He expressed his desire to be discharged home. Review of systems is otherwise negative. Labs and vitals reviewed. Home meds reviewed and reconciled. Physical Exam Const alert, oriented x3 and no apparent distress General Appearance: cooperative and comfortable HEENT normocephalic, head/scalp atraumatic and hearing grossly normal bilaterally Mouth: oral and palatal mucosa normal Eyes PERRL and EOMs intact bilaterally Neck no lymphadenopathy and supple Lymph Lymphatic: no lymphadenopathy noted and no lymphedema noted Resp Resp Narrative: moderately diminished breath sounds bilaterally, no wheezes or crackles. On 4 L of oxygen by nasal canula Cardio regular rate, regular rhythm, S1 normal heart sound, S2 normal heart sound and no murmurs Peripheral Pulses: pulses 2+ throughout GI normal to inspection, nondistended, normoactive bowel sounds, soft to palpation and non-tender Extremity normal capillary refill, no clubbing, cyanosis or edema and no calf tenderness General Extremity: no tenderness to palpation of joints or extremities Skin no rashes or lesions noted General Skin Exam: no breakdown Neuro oriented x3, CN's II-XII intact bilaterally, moves all extremities, no focal motor deficits, no sensory deficits noted and deep tendon reflexes 2+ bilaterally Sensorium / Orientation: awake and alert Motor Exam: strength 5/5 throughout and general weakness Psych thought process normal and cooperative Mood & Affect: anxious Weight / BMI Weight Weight: 148 lb Body Mass Index (BMI) 21.9 ABG / Lab / Microbiology Data 05/16/24 05:22 05/16/24 05:22 Laboratory: Laboratory Results - last 24 hr 05/16/24 05:22: WBC 9.3, RBC 3.43 L, Hgb 10.4 L, Hct 31.9 L, MCV 93.0, MCH 30.3, MCHC 32.6, RDW Std Deviation 52.1 H, RDW Coeff of Vivek 15.3 H, Plt Count 295, MPV 9.4, Neut % (Auto) Not Reportable, Absolute Neuts (auto) 6.2, Absolute Lymphs (auto) 1.77, Total Counted 100, Neutrophils % (Manual) 67, Lymphocytes % (Manual) 19, Monocytes % (Manual) 6, Metamyelocytes % 3 H, Myelocytes % 5 H, Diff Path Review May foll, Platelet Estimate ADEQUATE, RBC Morphology NORM C+C, Sodium 138, Potassium 3.4 L, Chloride 104, Carbon Dioxide 29.0, Anion Gap 5, BUN 11, Creatinine 0.76, Estim Creat Clear Calc 83.92, Est GFR (MDRD) Af Amer 131, Est GFR (MDRD) Non-Af 108, BUN/Creatinine Ratio 14.5, Glucose 103, Calcium 8.4 L 05/16/24 08:42: PT 29.8 H, INR 2.9 Microbiology: Microbiology 05/13/24 12:50 Sputum, Expectorated/Coughed Gram Stain - Final 05/13/24 12:50 Sputum, Expectorated/Coughed Respiratory Culture - Final Presumptive C albicans 05/14/24 09:10 Nasal Secretion MRSA (PCR) - Final 05/14/24 08:30 Urine, Clean Catch Legionella Antigen - Final 05/14/24 08:30 Urine, Clean Catch Streptococcus pneumoniae Antigen (M - Final 05/10/24 23:48 Mucosa - Nasopharyngeal Respiratory Panel (PCR) - Final 05/10/24 17:51 Mucosa - Nose SARS-CoV-2, Influenza & RSV (PCR) - Final D/C Instructions Discharge Diet: Low fat / Low cholesterol Discharge Activity: Return to Normal Activity Weight Bearing Status: Weight bearing as tolerated Call your doctor if you observe: Fever of 101 or Higher, Shortness of breath, Dizziness, Swelling in the ankles and Chest pain Meaningful Use Info Meaningful Use Meaningful Use Diagnoses (Choose all that apply): None applicable Ischemic Stroke Statin Dosing Therapy Reference: STATIN DOSE THERAPY REFERENCE: * Patients > 75 years receive moderate or high dose statin therapy. * Patients 75 years or YOUNGER should receive HIGH intensity statin dose unless contraindicated. You will be required to document reason for non-treatment if statin daily dose does not meet guidelines. HIGH DOSE STATIN THERAPY DAILY Atorvastatin > than or = to 40 mg Rosuvastatin > than or = to 20 mg Amlodipine + Atorvastatin > than or = to 2.5/40 mg Ezetimibe + Simvastatin 10/80 mg Simvastatin 80mg Discharge Plan Admission Admit Date/Time: 05/10/24 19:27 Primary Reason for Your Visit: acute COPD exacerbation Attending Provider: Jess Redmond Primary Care Provider: Adriel Pike Consulting Providers: Francisca Dobson; Dionicio Campbell; Jess Redmond; Sanjeev Osborn; Rey Garcia; Segun Lin; Dash Uriarte; Kannan Guerrero; Osvaldo Hopper; Aman Gillis; Sophy Patrick; Jayson Gordon; Everett Peralta; Bertha Lu; Justina Fallon; Asael Hollins; Jovany Juarez; Jair Sosa; Krystina Frias; Edward Syed; Haja Molina Instructions Patient Instructions: COPD: Coping with Fatigue, COPD Quit Smoking, COPD Controlled Breathing Dc Discharge Orders/Prescriptions Prescriptions: New diltiazem HCl [Cardizem] 120 mg tablet 120 mg PO BID Qty: 60 2RF prednisone 10 mg tablets,dose pack See Taper PO UD Qty: 21 0RF Taper: Prednisone Taper 60 mg WITH BREAKFAST for 3 Days and 0 Hour 50 mg WITH BREAKFAST for 3 Days and 0 Hour 40 mg WITH BREAKFAST for 3 Days and 0 Hour 30 mg WITH BREAKFAST for 3 Days and 0 Hour 20 mg WITH BREAKFAST for 3 Days and 0 Hour 10 mg WITH BREAKFAST for 3 Days and 0 Hour Continued omega-3 fatty acids 1,000 mg capsule 1,000 mg PO DAILY furosemide 40 mg tablet 40 mg PO DAILY omeprazole 20 mg capsule,delayed release(DR/EC) 20 mg PO DAILY guaifenesin 1,200 mg tablet extended release 12hr 1,200 mg PO Q12H Qty: 60 6RF pantoprazole 40 mg tablet,delayed release (DR/EC) 40 mg PO BID allopurinol 300 mg tablet 300 mg PO DAILY cholecalciferol (vitamin D3) 50 mcg (2,000 unit) capsule 50 mcg PO DAILY dofetilide 500 mcg capsule 500 mcg PO BID Qty: 180 3RF potassium chloride 10 mEq tablet,ER particles/crystals 10 meq PO DAILY Qty: 90 3RF Prolia 60 mg/mL syringe 60 mg subcut [id number] Qty: 1 1RF albuterol sulfate 90 mcg/actuation HFA aerosol inhaler 2 puff inhalation Q6H PRN (Reason: shortness of breath or wheezing) Qty: 8.5 6RF Breztri Aerosphere 160-9-4.8 mcg/actuation HFA aerosol inhaler 2 inh inhalation BID Qty: 10.7 6RF warfarin 2 mg tablet 2 mg PO QDAY Qty: 30 0RF Protocol: Dose Management Condition: Sunday Dose/Route: 2 mg Instruction: 1 x 2 mg tablet Condition: Sunday Dose/Route: 2 mg Instruction: 1 x 2 mg tablet Condition: Sunday Dose/Route: 2 mg Instruction: 1 x 2 mg tablet Condition: Sunday Dose/Route: 2 mg Instruction: 1 x 2 mg tablet Condition: Dose/Route: 2 mg Instruction: 1 x 2 mg tablet Condition: Sunday Dose/Route: 2 mg Instruction: 1 x 2 mg tablet Condition: Sunday Dose/Route: 2 mg Instruction: 1 x 2 mg tablet Protocol Text: Adjustment Start Date: 05/08/24 INR Value: 3.0 INR Date: 05/08/24 Recheck Date: 05/15/24 Discontinued diltiazem HCl [Cardizem CD] 240 mg capsule,extended release 24hr 240 mg PO BID Qty: 60 0RF Referrals / Follow Up: Adriel Pike MD [Primary Care Provider] - Within 1 Week Dash Uriarte DO [Med Staff - Active Staff] - Within 2 Weeks Disposition Disposition (needs filled in before D/C Order can be placed): Home, Self Care Charges/Coding Visit Charges Inpatient E&M: 86605 Disch Hosp >30min
--- NOTE | 2024-05-16 13:08 | DCINST_ITS ---
Discharge Instructions Diet Discharge Diet: Low fat / Low cholesterol Activity Discharge Activity: Return to Normal Activity Weight Bearing Status: Weight bearing as tolerated Dressing / Incision Call your doctor if you observe: Fever of 101 or Higher, Shortness of breath, Dizziness, Swelling in the ankles and Chest pain Follow Up Care Test Results: Test results from this visit will be discussed in further detail at your follow- up appointment, if applicable. Discharge Plan Admission Admit Date/Time: 05/10/24 19:27 Primary Reason for Your Visit: acute COPD exacerbation Attending Provider: Jess Redmond Primary Care Provider: Adriel Pike Consulting Providers: Francisca Dobson; Dionicio Campbell; Jess Redmond; Sanjeev Osborn; Rey Garcia; Segun Lin; Dash Uriarte; Kannan Guerrero; Osvaldo Hopper; Aman Gillis; Sophy Patrick; Jayson Gordon; Everett Peralta; Bertha Lu; Justina Fallon; Asael Hlolins; Jovany Juarez; Jair Sosa; Krystina Frias; Edward Syed; Haja Molina Instructions Patient Instructions: COPD: Coping with Fatigue, COPD Quit Smoking, COPD Controlled Breathing Dc Additional Instructions / Restrictions: use 4L of oxygen for shortness of breath as needed with ambulation. Discharge Orders/Prescriptions Prescriptions: New diltiazem HCl [Cardizem] 120 mg tablet 120 mg PO BID Qty: 60 2RF prednisone 10 mg tablets,dose pack See Taper PO UD Qty: 21 0RF Taper: Prednisone Taper 60 mg WITH BREAKFAST for 3 Days and 0 Hour 50 mg WITH BREAKFAST for 3 Days and 0 Hour 40 mg WITH BREAKFAST for 3 Days and 0 Hour 30 mg WITH BREAKFAST for 3 Days and 0 Hour 20 mg WITH BREAKFAST for 3 Days and 0 Hour 10 mg WITH BREAKFAST for 3 Days and 0 Hour Continued omega-3 fatty acids 1,000 mg capsule 1,000 mg PO DAILY furosemide 40 mg tablet 40 mg PO DAILY omeprazole 20 mg capsule,delayed release(DR/EC) 20 mg PO DAILY guaifenesin 1,200 mg tablet extended release 12hr 1,200 mg PO Q12H Qty: 60 6RF pantoprazole 40 mg tablet,delayed release (DR/EC) 40 mg PO BID allopurinol 300 mg tablet 300 mg PO DAILY cholecalciferol (vitamin D3) 50 mcg (2,000 unit) capsule 50 mcg PO DAILY dofetilide 500 mcg capsule 500 mcg PO BID Qty: 180 3RF potassium chloride 10 mEq tablet,ER particles/crystals 10 meq PO DAILY Qty: 90 3RF Prolia 60 mg/mL syringe 60 mg subcut [id number] Qty: 1 1RF albuterol sulfate 90 mcg/actuation HFA aerosol inhaler 2 puff inhalation Q6H PRN (Reason: shortness of breath or wheezing) Qty: 8.5 6RF Breztri Aerosphere 160-9-4.8 mcg/actuation HFA aerosol inhaler 2 inh inhalation BID Qty: 10.7 6RF warfarin 2 mg tablet 2 mg PO QDAY Qty: 30 0RF Protocol: Dose Management Condition: Sunday Dose/Route: 2 mg Instruction: 1 x 2 mg tablet Condition: Sunday Dose/Route: 2 mg Instruction: 1 x 2 mg tablet Condition: Sunday Dose/Route: 2 mg Instruction: 1 x 2 mg tablet Condition: Sunday Dose/Route: 2 mg Instruction: 1 x 2 mg tablet Condition: Dose/Route: 2 mg Instruction: 1 x 2 mg tablet Condition: Sunday Dose/Route: 2 mg Instruction: 1 x 2 mg tablet Condition: Sunday Dose/Route: 2 mg Instruction: 1 x 2 mg tablet Protocol Text: Adjustment Start Date: 05/08/24 INR Value: 3.0 INR Date: 05/08/24 Recheck Date: 05/15/24 Discontinued diltiazem HCl [Cardizem CD] 240 mg capsule,extended release 24hr 240 mg PO BID Qty: 60 0RF Referrals / Follow Up: Adriel Pike MD [Primary Care Provider] - Within 1 Week Dash Uriarte DO [Med Staff - Active Staff] - Within 2 Weeks Disposition Disposition (needs filled in before D/C Order can be placed): Home, Self Care
[2024-05-16 14:36] LABS: Pathologist Review Reviewed
--- NOTE | 2024-05-16 14:49 | CASEMGMT ---
Patient has order for discharge. Patient requires increase in home oxygen to 4lpm with ambulations. Updated script received and sent to Shawn. NITZA CM in to discuss discharge. Patient denies further needs or help at discharge. Patient states that he will need oxygen tank to go home with, Shawn updated and tank provided from stock. Patient had no further questions.
[2024-05-21 10:09] LABS: Aspirgillus flavus Negative (Neg:<1:1); Aspirgillus fumigatus Negative (Neg:<1:1); Aspirgillus niger Negative (Neg:<1:1); Cytoplasmic Ab (C-ANCA) <1:20 titer (Neg:<1:20); Perinuclear Ab (P-ANCA) <1:20 titer (Neg:<1:20)
== END 2024-05-16 15:18 | disposition home or self-care (01) | DRG 197 ==
LOC: ED 17:26 → PCU 19:10
PROVIDERS: Family Medicine; Internal Medicine Critical Care Medicine; Admitting Provider Internal Medicine; Emergency Provider Emergency Medicine; PCP Family Medicine; Visit Provider Student in an Organized Health Care Education/Training Program
DX: J84.10 Pulmonary fibrosis, unspecified (principal); J44.1 Chronic obstructive pulmonary disease with (acute) exacerbation; J96.11 Chronic respiratory failure with hypoxia; Z99.81 Dependence on supplemental oxygen; E11.9 Type 2 diabetes mellitus without complications; I10 Essential (primary) hypertension; I48.0 Paroxysmal atrial fibrillation; J43.2 Centrilobular emphysema; E87.6 Hypokalemia; M10.9 Gout, unspecified; E78.5 Hyperlipidemia, unspecified; K21.9 Gastro-esophageal reflux disease without esophagitis; R79.1 Abnormal coagulation profile; Z11.52 Encounter for screening for COVID-19; Z79.52 Long term (current) use of systemic steroids; Z79.01 Long term (current) use of anticoagulants; Z86.718 Personal history of other venous thrombosis and embolism; Z86.711 Personal history of pulmonary embolism; Z87.891 Personal history of nicotine dependence
CPT/HCPCS: 36415; 71046; 71275; 80048; 83735; 83880; 84100; 84145; 84484; 85025; 85610; 86037; 86038; 86225; 86235; 86606; 87070; 87205; 87449; 87631; 87633; 87641; 93005; 94640; 94668; 99252; 99285; J7050; Q9967; A4216; G0463; J1940

== ENCOUNTER 2024-05-21 09:17 | Emergency (ER) | payer MEDICARE, MEDICAID, SELFPAY ==
[2024-05-21 09:17] VITALS: BP 98/79; PULSE 126; RESP 24; TEMP 35.9; O2SAT 98; BMI 22.7
--- NOTE | 2024-05-21 10:06 | ED.VIS.CHEST ---
HPI History of Present Illness Chief Complaint: Palpitations Narrative Narrative: Chief complaint and HPI: Irregular heart rate. 68-year-old male with history of DVT, atrial fibrillation on warfarin, DM2, HTN, COPD chronically on 2 L nasal cannula presents for evaluation of irregular heart rate. History taken by patient as well as discharge summary from 05/16. Patient was admitted for acute exacerbation of COPD as well as acute hypoxia. Patient states that he follows with Dr. Santiago. During his hospital stay patient's blood pressure was running low so his Cardizem was cut down from 240 mg twice daily to 120 mg twice daily. Patient states since discharging home he has had an irregular heart rate. He states when he wakes up in the morning his heart rate is in the 120s. He states when he takes his diltiazem his heart rate drops into the 30s for about an hour. He states that he gets lightheaded and weak when this happens. He states his heart rate then increases back to the 120s throughout the whole day. He has not called the general office clerk. He has been taking his warfarin. Patient's last echocardiogram was 04/22 and at that time he had an EF of 60%. He denies any fever, chills, shortness of breath, chest pain, abdominal pain, nausea, vomiting, dysuria Review of systems: See HPI Medications: As listed on the chart Allergies: As listed on the chart PFSH: Per chart Vital signs: As listed on the chart. Reviewed. Physical exam: Gen: A&O x3, NAD Head: Normocephalic, atraumatic Eyes: No sclera icterus, conjunctiva clear, PERRL, EOMI ENT: Moist mucous membranes Neck: Trachea midline, No JVD CV: Irregular rate, irregular rhythm, no murmurs, no peripheral edema Resp: Lungs CTA BL, no w/r/c GI: Abd soft, non-distended, non-tender, no r/r/g Musc: Full ROM, no deformity Skin: Warm, dry Neuro: Alert, oriented, grossly intact, sensation intact Psych: Cooperative, appropriate mood and affect [facility] Medical History History of echocardiogram DVT (deep venous thrombosis) Injury of back History of hiatal hernia Shortness of breath on exertion Former smoker Leg cramps Cardiology follow-up encounter Pulmonary emphysema Hyperlipidemia Colon polyps Barretts esophagus Scabies Atrial fibrillation and flutter Osteoporosis Essential hypertension History of DVT (deep vein thrombosis) Paroxysmal atrial tachycardia Paroxysmal atrial fibrillation GERD (gastroesophageal reflux disease) Gout Type 2 diabetes mellitus Hypertension Tachycardia USP (current) use of anticoagulants Near syncope Bradycardia Tobacco dependence Afib Home Medications ?Medication ?Instructions ?Recorded ?Last Taken ?Type dofetilide 500 mcg capsule 500 mcg PO BID heart #180 caps 09/26/23 04/07/24 Rx potassium chloride 10 mEq 10 meq PO DAILY supplement #90 09/26/23 04/07/24 Rx tablet,extended release(part/cryst) tabs denosumab 60 mg/mL subcutaneous 60 mg subcut [id number] osteoperosis 11/29/23 Unknown Rx syringe (Prolia) #1 mL albuterol sulfate 90 mcg/actuation 2 puff inhalation Q6H PRN 01/28/24 04/07/24 Rx aerosol inhaler shortness of breath or wheezing #8.5 grams furosemide 40 mg tablet 40 mg PO DAILY edema 02/28/24 04/07/24 History omega-3 fatty acids 1,000 mg 1,000 mg PO DAILY supplement 02/28/24 04/07/24 History capsule omeprazole 20 mg capsule,delayed 20 mg PO DAILY acid reflux 02/28/24 04/07/24 History release budesonide 160 mcg-glycopyr 9 2 inh inhalation BID shortness of 03/12/24 04/07/24 Rx mcg-formot 4.8 mcg/actuation HFA breath #10.7 grams inhaler (Breztri Aerosphere) allopurinol 300 mg tablet 300 mg PO DAILY gout 04/07/24 04/07/24 History cholecalciferol (vitamin D3) 50 50 mcg PO DAILY supplement 04/07/24 04/07/24 History mcg (2,000 unit) capsule pantoprazole 40 mg tablet,delayed 40 mg PO BID gerd 04/07/24 04/07/24 History release warfarin 2 mg tablet 2 mg PO QDAY blood thinner #30 tabs 04/28/24 Unknown Rx guaifenesin 1,200 mg tablet, 1,200 mg PO Q12H cough #60 tabs 04/29/24 Unknown Rx extended release 12 hr prednisone 10 mg tablets in a dose See Taper PO UD #21 tabs 05/16/24 Unknown Rx pack diltiazem HCl 240 mg 240 mg PO BID 30 days #60 caps 05/21/24 Unknown Rx capsule,extended release 24 hr Allergy/AdvReac Type Severity Reaction Status Date / Time secobarbital sodium (From Allergy Unknown Verified 05/21/24 09:19 [place]) venom-honey bee (bee venom Allergy Anaphylaxis Verified 05/21/24 09:19 (honey bee)) Family History Mother Diabetes Hypertension Myocardial infarction CAD (coronary artery disease) Father Hypertension Heart disease Diabetes Myocardial infarction CAD (coronary artery disease) Surgical History History of esophagogastroduodenoscopy (EGD) History of hip replacement Status post peripheral artery angioplasty History of left hip replacement History of cardiac radiofrequency ablation (~04/2008) Social History household members: other details: His mother lives with him. Smoking Status: Former smoker Tobacco: How many years used: 50 how long ago did patient quit smokin alcohol intake: current alcohol intake frequency: a few times a month Alcohol type: beer substance use type: does not use caffeine: No EXAM Physical Exam Const Vital Signs: 05/21/24 09:17 05/21/24 10:17 05/21/24 11:00 Temperature 96.7 F L Temperature Source Temporal Pulse Rate 126 H 94 93 Respiratory Rate 24 H 20 H 14 Blood Pressure 98/79 108/86 H 119/93 H Blood Pressure Mean 85 93 101 Pulse Ox 98 98 99 Oxygen Delivery Method Room Air Nasal Cannula Nasal Cannula Oxygen Flow Rate (L/min) 2 2 05/21/24 11:00 05/21/24 12:00 05/21/24 13:00 Temperature Temperature Source Pulse Rate 92 94 85 Respiratory Rate 16 17 15 Blood Pressure 118/90 H 125/92 H 118/90 H Blood Pressure Mean 99 103 99 Pulse Ox 99 98 100 Oxygen Delivery Method Nasal Cannula Nasal Cannula Room Air Oxygen Flow Rate (L/min) 2 05/21/24 13:53 Temperature 97.6 F L Temperature Source Pulse Rate 102 H Respiratory Rate 15 Blood Pressure 133/88 H Blood Pressure Mean 103 Pulse Ox 94 Oxygen Delivery Method Oxygen Flow Rate (L/min) MDM MDM MDM Narrative Medical decision making narrative: 68-year-old male with history of atrial fibrillation on warfarin, COPD, recent change in diltiazem presents for evaluation of irregular heart rate. Differential diagnosis includes but is not limited to medication side effect, electrolyte abnormality, ACS. On presentation, patient is in atrial fibrillation. His heart rate is irregular. On arrival he was in the 120s, he is currently now anywhere between the 110s to 90s. Cardiac workup ordered. EKG on May 10 shows normal sinus rhythm with PACs. Heart rate 83. EKG and chest x-ray reviewed see below. CBC with a leukocytosis of 16. Patient has no leukocytosis on 05/16 therefore we will add on UA and COVID, flu, RSV to find a source for patient's leukocytosis. Patient not endorsing any infectious type symptoms. He did just get over a COPD exacerbation. CBC with uptrending anemia of 12.8. INR therapeutic at 2.2. BMP shows mild hypokalemia at 3. Potassium replaced p.o. No PADMA. Magnesium level unremarkable. Troponin x 2 unremarkable. BNP unremarkable. COVID, flu, RSV negative. UA negative for UTI. On reevaluation, patient is still in atrial fibrillation but his rate is controlled in the 90s. Dr. Santiago was consulted and patient was discussed. His recommendation is to increase the patient's diltiazem back to 240 mg twice daily. He will schedule an outpatient Holter monitor in 1 week. Patient to follow-up with cardiology. Patient was educated on all his results including his leukocytosis. This may be reactive to his previous COPD exacerbation however he was educated to monitor for worsening signs and symptoms. He was educated on the recommendations of cardiology. Patient needs a new prescription for 240 mg twice daily. This was written. Return precautions explained. Follow-up with cardiology. He confirmed understanding of plan. Patient stable to discharge home. EKG: Interpreted by me/EM physician: EKG shows atrial fibrillation with PVCs. Nonspecific ST changes. No ST elevation. Heart rate 109. Diagnostic: Interpreted by me/EM physician: Chest x-ray shows interstitial markings however improved from previous chest x-ray. No effusion or cardiomegaly Impression: 1. Atrial fibrillation with irregular heart rate 2. Chronic anemia Lab Data Labs: Laboratory Results - last 24 hr 05/21/24 05/21/24 05/21/24 09:40 11:38 12:26 WBC 16.0 H RBC 4.19 L Hgb 12.8 L Hct 38.6 L MCV 92.1 MCH 30.5 MCHC 33.2 RDW Std Deviation 53.2 H RDW Coeff of Vivek 16.0 H Plt Count 380 MPV 9.3 Neut % (Auto) Not Reportable Absolute Neuts (auto) 13.9 H Absolute Lymphs (auto) 1.12 Total Counted 100 Neutrophils % (Manual) 86 H Band Neutrophils % 1 Lymphocytes % (Manual) 7 L Myelocytes % 6 H Diff Path Review May foll Platelet Estimate ADEQUATE RBC Morphology NORM C+C PT 24.5 H INR 2.2 Sodium 134 L Potassium 3.0 L Chloride 100 Carbon Dioxide 26.0 Anion Gap 8 BUN 21 H Creatinine 1.05 Estim Creat Clear Calc 66.61 Est GFR (MDRD) Af Amer 90 Est GFR (MDRD) Non-Af 75 BUN/Creatinine Ratio 20.0 Glucose 129 H Calcium 8.2 L Magnesium 2.3 Troponin I High Sens 5 6 B-Natriuretic Peptide 44.1 Urine Color Yellow Urine Clarity Clear Urine pH 7.0 Ur Specific [place] 1.010 Urine Protein Negative Urine Glucose (UA) Normal Urine Ketones Negative Urine Occult Blood Negative Urine Nitrite Negative Urine Bilirubin Negative Urine Urobilinogen Normal Ur Leukocyte Esterase Negative Urine RBC 0 SEEN Urine WBC 0 SEEN Ur Squamous Epith Cells 0 SEEN Urine Bacteria 0 SEEN Urine Mucus 0 SEEN Radiography Diagnostic Testing: Clinical Impression(s) from Imaging Studies Chest X-Ray 05/21/24 10:16 IMPRESSION: Persistent increased interstitial markings with areas of confluence in the left hemithorax although the SS improved as compared to prior study. Electronically Signed: Jose Huang MD at 10:39 EDT , Discharge Plan Triage Chief Complaint: Palpitations ED Provider: Isaias Huber Dx/Rx/DC Orders Clinical Impression: Atrial fibrillation Instructions: AFib Dc Prescriptions: New diltiazem HCl 240 mg capsule,extended release 24hr 240 mg PO BID 30 Days Qty: 60 0RF Discontinued diltiazem HCl [Cardizem] 120 mg tablet 120 mg PO BID Qty: 60 2RF No Action omega-3 fatty acids 1,000 mg capsule 1,000 mg PO DAILY furosemide 40 mg tablet 40 mg PO DAILY omeprazole 20 mg capsule,delayed release(DR/EC) 20 mg PO DAILY guaifenesin 1,200 mg tablet extended release 12hr 1,200 mg PO Q12H Qty: 60 6RF pantoprazole 40 mg tablet,delayed release (DR/EC) 40 mg PO BID allopurinol 300 mg tablet 300 mg PO DAILY cholecalciferol (vitamin D3) 50 mcg (2,000 unit) capsule 50 mcg PO DAILY prednisone 10 mg tablets,dose pack See Taper PO UD Qty: 21 0RF Taper: Prednisone Taper 60 mg WITH BREAKFAST for 3 Days and 0 Hour 50 mg WITH BREAKFAST for 3 Days and 0 Hour 40 mg WITH BREAKFAST for 3 Days and 0 Hour 30 mg WITH BREAKFAST for 3 Days and 0 Hour 20 mg WITH BREAKFAST for 3 Days and 0 Hour 10 mg WITH BREAKFAST for 3 Days and 0 Hour dofetilide 500 mcg capsule 500 mcg PO BID Qty: 180 3RF potassium chloride 10 mEq tablet,ER particles/crystals 10 meq PO DAILY Qty: 90 3RF Prolia 60 mg/mL syringe 60 mg subcut [id number] Qty: 1 1RF albuterol sulfate 90 mcg/actuation HFA aerosol inhaler 2 puff inhalation Q6H PRN (Reason: shortness of breath or wheezing) Qty: 8.5 6RF Breztri Aerosphere 160-9-4.8 mcg/actuation HFA aerosol inhaler 2 inh inhalation BID Qty: 10.7 6RF warfarin 2 mg tablet 2 mg PO QDAY Qty: 30 0RF Protocol: Dose Management Condition: Sunday Dose/Route: 2 mg Instruction: 1 x 2 mg tablet Condition: Sunday Dose/Route: 2 mg Instruction: 1 x 2 mg tablet Condition: Sunday Dose/Route: 2 mg Instruction: 1 x 2 mg tablet Condition: Sunday Dose/Route: 2 mg Instruction: 1 x 2 mg tablet Condition: Dose/Route: 2 mg Instruction: 1 x 2 mg tablet Condition: Sunday Dose/Route: 2 mg Instruction: 1 x 2 mg tablet Condition: Sunday Dose/Route: 2 mg Instruction: 1 x 2 mg tablet Protocol Text: Adjustment Start Date: 05/08/24 INR Value: 3.0 INR Date: 05/08/24 Recheck Date: 05/15/24 Primary Care Provider: Adriel Pike Referrals: Adriel Pike MD [Primary Care Provider] - 3-5 Days Tray Santiago MD [Med Staff - Active Staff] - As soon as possible Activity Restrictions/Additional Instructions: Follow-up with cardiology as well as your primary care physician. Continue to monitor your heart rate and blood pressure at home. If you develop new or worsening symptoms return back to the emergency department. Stop taking your diltiazem 120 mg tablet twice daily. Instead we will place you back on diltiazem to 240 mg twice daily. Print Language: [place] Disposition Disposition: Home, Self Care Discharge Date/Time: 05/21/24 14:12
--- NOTE | 2024-05-21 10:16 | RAD_ITS ---
STUDY: X-RAY CHEST REASON FOR EXAM: Male, 68 years old. Chest pain TECHNIQUE: Single AP portable view of the chest. COMPARISON: Comparison is made with prior study dated May 10, 2024. FINDINGS: EKG electrodes are seen. Persistent increased markings with areas of confluence in the left hemithorax although there has been improvement as compared to prior study. The right lung is unremarkable. There is no demonstrated pleural abnormality. Normal size heart. Normal mediastinum and pam. Normal visualized pulmonary arteries. There is atherosclerotic calcification of the aortic arch with tortuosity. Normal visualized thoracic spine. Normal visualized ribs, clavicles, and shoulders. There is no demonstrated abnormality of the visualized soft tissue structures of the upper abdomen. RAD/Chest 1 View (Portable) IMPRESSION: Persistent increased interstitial markings with areas of confluence in the left hemithorax although the SS improved as compared to prior study. Electronically Signed: Jose Huang MD at 10:39 EDT ,
[2024-05-21 10:17] VITALS: BP 108/86; PULSE 94; RESP 20; O2SAT 98
[2024-05-21 10:32] LABS: Hematocrit 38.6 % (40-54); Hemoglobin 12.8 g/dL (13.0-16.5); Mean Corp Hgb Conc 33.2 g/dL (32-36); Mean Corpuscular Hgb 30.5 pg (27.0-32.0); Mean Corpuscular Volume 92.1 fL (80-94); Mean Platelet Vol. 9.3 fl (6.2-12.0); POSITIVE COUNT YES; POSITIVE MORPHOLOGY YES; Platelet Count 380 K/mm3 (150-450); RBC Distribution Width SD 53.2 fl (35.1-43.9); Red Blood Count 4.19 M/mm3 (4.6-6.2)
[2024-05-21 10:36] LABS: Differential Indicated MANUAL DIFF
[2024-05-21 10:44] LABS: International Normalized Ratio 2.2; Prothrombin Time (Protime)PT. 24.5 SECONDS (11.7-14.9)
[2024-05-21 10:55] LABS: Anion Gap 8 (5-15); BUN 21 mg/dL (7-18); Calcium,Total 8.2 mg/dL (8.5-10.1); Chloride 100 mmol/L (98-107); Creatinine, Serum 1.05 mg/dL (0.70-1.30); EST Glomerular Filtration Rate 75 mL/min (>60); Est Glom Filt Rate - Afr Amer 90 mL/min (>60); Estimated Creatinine Clearance 66.61 ml/min; Glucose 129 mg/dL (74-106); Magnesium 2.3 mg/dL (1.6-2.6); Sodium Level 134 mmol/L (136-145); Troponin-I HS (w/2H Reflex) 5 pg/mL (3.0-78.0)
[2024-05-21 11:00] VITALS: BP 118/90; BP 119/93; PULSE 92; PULSE 93; RESP 14; RESP 16; O2SAT 99
[2024-05-21 11:06] LABS: Neutrophil-Band 1 % (0-5); Neutrophil-Segmented 86 % (47-70); Total Cells Counted 100 (MANUAL DIFF)
[2024-05-21 11:09] LABS: Lymphocyte 7 % (19-41); Myelocyte 6 % (0-0); Platelet Estimate ADEQUATE (ADEQ); Red Cell Morphology NORM C+C NORMAL (NORM C&C)
[2024-05-21 11:10] LABS: Absolute Lymphocyte Count 1.12 X10^3/uL (0.83-4.51); Absolute Neutrophil Count 13.9 X10^3/uL (2.0-7.7)
[2024-05-21 11:19] LABS: BNP,B-Type NATRIURETIC PEPTIDE 44.1 pg/mL (0-100)
[2024-05-21] MEDS: Potassium Chloride Oral Soln 20 MEQ/15 ML UDC 40 MEQ PO (11:35)
[2024-05-21 11:46] LABS: Bacteria 0 SEEN /hpf (None Seen); Mucous, Urine 0 SEEN /hpf (<or=2+); Red Blood Cells-Urine 0 SEEN /hpf (0-5); Squamous Epithelial Cells - UA 0 SEEN /hpf (0-5); White Blood Cells 0 SEEN /hpf (0-5)
[2024-05-21 11:52] LABS: Color, Urine Yellow (Yellow); Glucose, Dipstick Normal (Normal); Ketone-Dipstick Negative (Negative); Leukocyte Esterase-Dipstick Negative /ul (Negative); Nitrite-Dipstick Negative (Negative); Occult Blood-Urine Negative /ul (Negative); Protein-Dipstick Negative (Negative); Urine Bilirubin Dipstick Negative (Negative); Urine Clarity Clear (Clear); Urine Urobilinogen Normal (Normal)
[2024-05-21 12:00] VITALS: BP 125/92; PULSE 94; RESP 17; O2SAT 98
[2024-05-21 12:09] LABS: Reflex Troponin-HS? (from REC) Y
[2024-05-21 12:51] LABS: Troponin-I HS 6 pg/mL (3.0-78.0)
[2024-05-21 13:00] VITALS: BP 118/90; PULSE 85; RESP 15; O2SAT 100
[2024-05-21 13:53] VITALS: BP 133/88; PULSE 102; RESP 15; TEMP 36.4; O2SAT 94
[2024-05-22 09:47] LABS: Pathologist Review Reviewed
== END 2024-05-21 14:12 | disposition home or self-care (01) ==
PROVIDERS: Emergency Provider Surgery; PCP Family Medicine; Visit Provider Surgery
DX: I48.0 Paroxysmal atrial fibrillation (principal); J43.9 Emphysema, unspecified; E11.9 Type 2 diabetes mellitus without complications; Z11.52 Encounter for screening for COVID-19; R00.2 Palpitations; I10 Essential (primary) hypertension; E87.6 Hypokalemia; E78.5 Hyperlipidemia, unspecified; M10.9 Gout, unspecified; D64.9 Anemia, unspecified; K21.9 Gastro-esophageal reflux disease without esophagitis; Z99.81 Dependence on supplemental oxygen; Z79.01 Long term (current) use of anticoagulants; Z79.899 Other long term (current) drug therapy; Z87.891 Personal history of nicotine dependence; Z86.718 Personal history of other venous thrombosis and embolism
CPT/HCPCS: 71045; 80048; 81001; 83735; 83880; 84484; 85025; 85610; 87631; 93005; 99284; A4216

== ENCOUNTER 2024-05-30 07:09 | Outpatient (RCR) | payer MEDICARE, MEDICAID, SELFPAY ==
[2024-05-29 21:15] VITALS: BMI 24.1
[2024-05-30 10:38] LABS: International Normalized Ratio 3.7; Prothrombin Time (Protime)PT. 36.3 SECONDS (11.7-14.9)
[2024-05-30 11:00] LABS: Magnesium 2.6 mg/dL (1.6-2.6); Potassium 3.6 mmol/L (3.5-5.1)
== END 2024-06-28 18:00 | disposition home or self-care (01) ==
LOC: MTLAB 07:09
PROVIDERS: Family Provider Family Medicine; PCP Family Medicine; Referring Provider Nurse Practitioner Family; Visit Provider Nurse Practitioner Family
DX: I48.0 Paroxysmal atrial fibrillation (principal); Z79.01 Long term (current) use of anticoagulants; E87.6 Hypokalemia
CPT/HCPCS: 36415; 83735; 84132; 85610

== ENCOUNTER → 2024-06-02 | Outpatient (CLI) | payer MEDICARE, MEDICAID, SELFPAY | END | disposition home or self-care (01) | LOC: PSN 10:03 | PROVIDERS: PCP Family Medicine; Referring Provider Nurse Practitioner Acute Care; Visit Provider Nurse Practitioner Acute Care | DX: J44.9 Chronic obstructive pulmonary disease, unspecified (principal) | CPT/HCPCS: 94060; 94726; 94729 ==

== ENCOUNTER → 2024-06-06 | Outpatient (CLI) | payer MEDICARE, MEDICAID, SELFPAY ==
[2024-06-06 13:23] VITALS: PULSE 101; PULSE 108; PULSE 110; PULSE 115; PULSE 117; PULSE 118; O2SAT 88; O2SAT 90; O2SAT 92; O2SAT 93; O2SAT 94; O2SAT 99
== END | disposition home or self-care (01) ==
LOC: PSN 12:06
PROVIDERS: PCP Family Medicine; Referring Provider Nurse Practitioner Acute Care; Visit Provider Nurse Practitioner Acute Care
DX: J44.9 Chronic obstructive pulmonary disease, unspecified (principal)
CPT/HCPCS: 94618

== ENCOUNTER → 2024-07-03 | Outpatient (CLI) | payer MEDICARE, MEDICAID, SELFPAY | END | disposition home or self-care (01) | LOC: PSN 10:27 | PROVIDERS: PCP Family Medicine; Referring Provider Physician Assistant Medical; Visit Provider Physician Assistant Medical | DX: R00.2 Palpitations (principal) | CPT/HCPCS: 93225; 93226 ==

== ENCOUNTER 2024-07-09 07:37 | Outpatient (RCR) | payer MEDICARE, MEDICAID, SELFPAY ==
[2024-06-29 03:12] VITALS: BMI 24.1
[2024-06-30 10:59] LABS: International Normalized Ratio 1.5; Prothrombin Time (Protime)PT. 17.8 SECONDS (11.7-14.9)
[2024-07-09 10:29] LABS: International Normalized Ratio 1.9; Prothrombin Time (Protime)PT. 21.3 SECONDS (11.7-14.9)
== END 2024-07-09 18:00 | disposition home or self-care (01) ==
LOC: MTLAB 07:37
PROVIDERS: Family Provider Family Medicine; PCP Family Medicine; Referring Provider Nurse Practitioner Family; Visit Provider Nurse Practitioner Family
DX: I48.0 Paroxysmal atrial fibrillation (principal); Z79.01 Long term (current) use of anticoagulants
CPT/HCPCS: 36415; 85610

== ENCOUNTER 2024-07-17 08:37 | Day surgery (SDC) | payer MEDICARE, MEDICAID, SELFPAY ==
--- NOTE | 2024-07-16 11:30 | PAT.ANESEVAL ---
Pre-Assessment Diagnosis/Proposed Procedure Planned Operative Procedure(s): EGD WITH ABLATION Anesthesia History Anesthesia History - application security consultant: Anesthesia History - application security consultant Hx Hospitalization Yes: 04/2024 PNEUMONIA 07/16/24 10:49 Any Problems With Anesthesia No 07/16/24 10:49 Cholinesterase deficiency No 07/16/24 10:49 You/Your Family Experience No 07/16/24 10:49 fever (hyperthermia) with Relationship Recent Exposure to Contagious No 05/26/24 10:49 Disease Does patient have nerve No 07/16/24 10:49 stimulator Patient instructed to have device shut off --Does patient have Pacemaker or ICD? When Was Last Pacemaker Check QUESTION #4 FULL TEXT: You/Your Family Experience fever (hyperthermia) with Anesthesia Last Oral Intake Last Oral intake: Last Oral Intake NPO since Meds taken in AM with sips of water? Meds patient instructed to take am of surgery PONV PONV - application security consultant: PONV - application security consultant Female No 07/16/24 10:49 HX of Motion Sickness No 07/16/24 10:49 HX of N/V After Surgery No 07/16/24 10:49 Non-Smoker Yes 07/16/24 10:49 Duration of Surgery greater No 07/16/24 10:49 than 60 minutes Number of Risk Factors 1 07/16/24 10:49 PONV Score Low Risk 07/16/24 10:49 Height & Weight Height & Weight: Anesthesia: Height & Weight Height 5 ft 9 in 07/08/24 10:12 Respiratory Assessment Respiratory Assessment - application security consultant: Respiratory Tract Infection Hx - application security consultant Hx Respiratory Tract Infection No 07/16/24 10:49 STOP Sleep Apnea STOP Sleep Apnea - application security consultant: STOP Sleep Apnea - application security consultant Hx Hypertension Yes: CONTROLLED WITH MEDS 07/16/24 10:49 Hx Sleep Apnea No 07/16/24 10:49 CPAP No 07/16/24 10:49 BIPAP No 07/16/24 10:49 Do you snore loudly (louder No 07/16/24 10:49 than talking or can be heard Do you often feel tired/ No 07/16/24 10:49 fatigued/ sleepy during daytime? Has anyone observed you stop No 07/16/24 10:49 breathing during sleep? STOP Results Negative 07/16/24 10:49 QUESTION #5 FULL TEXT : Do you snore loudly (louder than talking or can be heard through closed doors)? 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 Specify any problems Hx of Preganancy in last 3 N/A 07/16/24 10:49 Months Nurse Filling Out Transfusion NBUCHER 07/16/24 10:49 & Questions: Date: 07/16/24 07/16/24 10:49 Time: 10:50 07/16/24 10:49 Patient unable to answer at this time (ie. confused, unrespo /Reproduction History /Reproductive History - application security consultant: /Reproductive Hx- application security consultant Hx Now Gestational Age (in weeks): EDC: Hx Hx Para Hx Section SAB No 07/16/24 10:49 PFSH Medical History History of Holter monitoring Acute and chronic respiratory failure with hypoxia History of echocardiogram DVT (deep venous thrombosis) Injury of back History of hiatal hernia Shortness of breath on exertion Former smoker Leg cramps Cardiology follow-up encounter Pulmonary emphysema Hyperlipidemia Colon polyps Barretts esophagus Scabies Atrial fibrillation and flutter Osteoporosis Essential hypertension History of DVT (deep vein thrombosis) Paroxysmal atrial tachycardia Paroxysmal atrial fibrillation GERD (gastroesophageal reflux disease) Gout Type 2 diabetes mellitus Hypertension 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 Near syncope Bradycardia Tobacco dependence Afib Home Medications ?Medication ?Instructions ?Recorded ?Last Taken ?Type dofetilide 500 mcg capsule 500 mcg PO BID heart #180 caps 09/26/23 04/07/24 Rx potassium chloride 10 mEq 10 meq PO DAILY supplement #90 09/26/23 04/07/24 Rx tablet,extended release(part/cryst) tabs denosumab 60 mg/mL subcutaneous 60 mg subcut [id number] osteoperosis 11/29/23 Unknown Rx syringe (Prolia) #1 mL albuterol sulfate 90 mcg/actuation 2 puff inhalation Q6H PRN 01/28/24 04/07/24 Rx aerosol inhaler shortness of breath or wheezing #8.5 grams furosemide 40 mg tablet 40 mg PO DAILY edema 02/28/24 04/07/24 History omega-3 fatty acids 1,000 mg 1,000 mg PO DAILY supplement 02/28/24 04/07/24 History capsule budesonide 160 mcg-glycopyr 9 2 inh inhalation BID shortness of 03/12/24 04/07/24 Rx mcg-formot 4.8 mcg/actuation HFA breath #10.7 grams inhaler (Breztri Aerosphere) allopurinol 300 mg tablet 300 mg PO DAILY gout 04/07/24 04/07/24 History pantoprazole 40 mg tablet,delayed 40 mg PO BID gerd 04/07/24 04/07/24 History release guaifenesin 1,200 mg tablet, 1,200 mg PO Q12H cough #60 tabs 04/29/24 Unknown Rx extended release 12 hr diltiazem HCl 180 mg mg PO 07/16/24 Unknown History capsule,extended release 24 hr ipratropium 0.5 mg-albuterol 3 mg 3 ml inhalation TID PRN 07/16/24 Unknown History (2.5 mg base)/3 mL nebulization soln warfarin 1 mg tablet 1 mg PO SUSA 07/16/24 Unknown History warfarin 2 mg tablet 2 mg PO MOTUWETHFR blood thinner 07/16/24 Unknown History Allergy/AdvReac Type Severity Reaction Status Date / Time secobarbital sodium (From Allergy Unknown Verified 07/16/24 10:43 [place]) venom-honey bee (bee venom Allergy Anaphylaxis Verified 07/16/24 10:43 (honey bee)) Family History Mother Diabetes Hypertension Myocardial infarction CAD (coronary artery disease) Father Hypertension Heart disease Diabetes Myocardial infarction CAD (coronary artery disease) Surgical History History of esophagogastroduodenoscopy (EGD) History of hip replacement Status post peripheral artery angioplasty History of left hip replacement History of cardiac radiofrequency ablation (~04/2008) Social History household members: other details: His mother lives with him. Smoking Status: Former smoker Tobacco: How many years used: 50 how long ago did patient quit smokin alcohol intake: current alcohol intake frequency: a few times a month Alcohol type: beer substance use type: does not use caffeine: No Audit: Pertinent Findings Pertinent Findings EKG Perinent findings: 05/21/2024 a flutter with variable AV block PVCs anterior septal infarct cited before July 2014 ventricular rate 109 Echo (EF%) pertinent findings: Normal size function EF 60% pulmonary artery pressure 42 mmHg 04/02/2024 Consult pertinent findings: Cardiology 04/24/2024 atrial fibrillation flutter status post EP radiofrequency ablation 04/2008 on Coumadin start medication hypertension chronic anticoagulants Recommendation Anesthesia Recommendation Anesthesia recommendation: OPTIMIZED for anesthesia
[2024-07-17] VITALS (9 sets, daily range): BP systolic 85–115; BP diastolic 61–72; PULSE 60–71; RESP 14–18; TEMP 36.2–36.4; O2SAT 91–98; BMI 22.6
--- NOTE | 2024-07-17 | IMM_PTH ---
PATIENT: ENRIQUE MCNALLY III LOC: EN U#:[id number] AGE/SX: 68/M ROOM: RE07/17/[address]: Dr. Pablo Pichardo DO : 1955 BED: DIS: 07/17/2024 SPEC #: [id number] RECD: 07/18/24 11:27 STATUS: LUKE REQ #: [id number] DERRICK: 07/17/24 00:[address]: Pablo Pichardo DEPT: IMMUNOHISTOCHEMISTRY RECD BY: Sergio Wiggins ENTERED: 07/18/24 11:27 SP TYPE: IMMUNO OTHR DR: Adriel Pike MD Tissues: Esophagus, NOS Procedures: P53 (initial) KI-67 (add) PHYSICIAN & INSTITUTION [place] [id number] SPECIMEN INFORMATION: Tissue Source: Distal esophagus biopsy Clinical Info: Vergara's esophagus Specimen Number: [id number] CPT code: 01296 METHODOLOGY: Deparaffinized sections of prefer/formalin-fixed tissue or PAP/DQ stained slides are incubated with monoclonal/polyclonal antibodies/oligonucleotide probes. Localization is made via biotin free immunoperoxidase method. Appropriate controls are performed and reacted as expected. Results on target cell population are indicated in the following table: RESULTS: ANTIBODY / CLONE RESULT P53 (DO-7) negative (null pattern) Ki-67 (30-9) positive, very low These tests were developed and their performance characteristics determined by [facility]. They may not have been cleared or approved by the U.S. Food and Drug Administration. The FDA has determined that such clearance or approval is not necessary. The above immunohistochemical/dualISH markers are ordered and reviewed by the Pathologist. INTERPRETATION: Distal esophagus, biopsy: Negative for dysplasia SJ:gem 07/21/2024
[2024-07-17 08:51] LABS: INR Fingerstick 1.2; Prothrombin Time Fingerstick 14.2 SEC (11.7-14.9)
--- NOTE | 2024-07-17 09:56 | PCM.HP.STD ---
HPI - General General Date of Admission: 07/17/24 Date of Service: 07/17/24 Chief Complaint: Vergara's esophagus with low-grade dysplasia HPI Narrative ENRIQUE MCNALLY, is a 68 M who presentsWALESCALANTE, is a 68 M who presents to the office today for *BGI established 05.02.22 without GI complaints. History of colonic polyps, large hiatal hernia and Vergara?s esophagus.?EGD and colonoscopy 06.28.22?EGD long-segment Vergara?s esophagus; medium hiatal hernia; prominent gastric folds.? Colonoscopy diverticulosis.? OV 07.12.22 continues to do well.?Continue PPI therapy.? OV 01.10.23 recent onset of LLQ>RLQ abdominal discomfort causing nocturnal night sweats. ?CT abd/pel 01.18.23?emphysema changes with granuloma and lung nodule; renal cysts; diverticulosis; umbilical hernia; multiple compression fractures of spine? Contact 02.02.23 reporting he is doing much better than previously. Proceed with EGD and f/u as scheduled.?EGD 07.10.23?long-segment Vergara?s mucosal changes, metaplasia +; medium hiatal hernia; diffusely friable mucosa of entire stomach.? OV 07.24.23- Pt is doing well since last visit. Has not had any heartburn, dysphagia, nausea or abdominal pain. BM are normal. Has no other concerns. [facility] ED 08.07.23 presents with R foot pain EGD 08.15.23 Esophageal mucosal changes secondary to established long-segment Vergara's disease. Treated with radiofrequency ablation. Medium-sized hiatal hernia. No gross lesions in the duodenal bulb. No specimens collected. EGD 09.18.23 Esophageal mucosal changes secondary to established long-segment Vergara's disease. Treated with radiofrequency ablation. Hiatal hernia. Normal second portion of the duodenum. No specimens collected. EGD 10.16.23 Esophageal mucosal changes secondary to established long-segment Vergara's disease. Biopsied. Treated with radiofrequency ablation. Medium-sized hiatal hernia. No gross lesions in the duodenal bulb. Esophageal plaques were found, consistent with candidiasis. EGD 11.20.23 Moderate Schatzki ring. Dilated. Esophageal mucosal changes secondary to established short-segment Vergara's disease. Biopsied. Hiatal hernia. The examination was otherwise normal. No gross lesions in the duodenal bulb. OV 6 pt reports that he is doing well overall with no GI symptoms of concern at this time. Continues with pantoprazole and sucralfate. [facility] ED 04.20.24 - 04.23.24 SOB - consulted for hematemesis EGD 04.21.24 Normal esophagus. Vergara's esophagus. Medium-sized hiatal hernia. Chronic gastritis. No gross lesions in the duodenal bulb. No specimens collected. OV 05.30.24 pt reports that he is feeling well overall and denies GI symptoms of concern at this time. Discussed his EGD and colonoscopy findings, focusing on Vergara's and the increased risk for esophageal cancer. Not taking omeprazole, prescribed pantoprazole 40 mg QAM to be taken indefinitely. We will repeat EGD in one yr for long segment Vergara's. 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 Repeat colonoscopy 5 yrs. f/u 6 months. EGD scheduled 07.17.24. OV 07.01.24 Denies GI concerns at this time. Continues pantoprazole. [facility] Medical History History of Holter monitoring Acute and chronic respiratory failure with hypoxia History of echocardiogram DVT (deep venous thrombosis) Injury of back History of hiatal hernia Shortness of breath on exertion Former smoker Leg cramps Cardiology follow-up encounter Pulmonary emphysema Hyperlipidemia Colon polyps Barretts esophagus Scabies Atrial fibrillation and flutter Osteoporosis Essential hypertension History of DVT (deep vein thrombosis) Paroxysmal atrial tachycardia Paroxysmal atrial fibrillation GERD (gastroesophageal reflux disease) Gout Type 2 diabetes mellitus Hypertension 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 Near syncope Bradycardia Tobacco dependence Afib Home Medications ?Medication ?Instructions ?Recorded ?Last Taken ?Type dofetilide 500 mcg capsule 500 mcg PO BID heart #180 caps 09/26/23 07/17/24 Rx potassium chloride 10 mEq 10 meq PO DAILY supplement #90 09/26/23 04/07/24 Rx tablet,extended release(part/cryst) tabs denosumab 60 mg/mL subcutaneous 60 mg subcut [id number] osteoperosis 11/29/23 Unknown Rx syringe (Prolia) #1 mL albuterol sulfate 90 mcg/actuation 2 puff inhalation Q6H PRN 01/28/24 07/17/24 Rx aerosol inhaler shortness of breath or wheezing #8.5 grams furosemide 40 mg tablet 40 mg PO DAILY edema 02/28/24 04/07/24 History omega-3 fatty acids 1,000 mg 1,000 mg PO DAILY supplement 02/28/24 04/07/24 History capsule budesonide 160 mcg-glycopyr 9 2 inh inhalation BID shortness of 03/12/24 04/07/24 Rx mcg-formot 4.8 mcg/actuation HFA breath #10.7 grams inhaler (Breztri Aerosphere) allopurinol 300 mg tablet 300 mg PO DAILY gout 04/07/24 07/17/24 History pantoprazole 40 mg tablet,delayed 40 mg PO BID gerd 04/07/24 07/17/24 History release guaifenesin 1,200 mg tablet, 1,200 mg PO Q12H cough #60 tabs 04/29/24 Unknown Rx extended release 12 hr diltiazem HCl 180 mg mg PO 07/16/24 07/17/24 History capsule,extended release 24 hr ipratropium 0.5 mg-albuterol 3 mg 3 ml inhalation TID PRN shortness 07/16/24 Unknown Rx (2.5 mg base)/3 mL nebulization of breath or wheezing #180 mL soln warfarin 1 mg tablet 1 mg PO SUSA 07/16/24 07/12/24 History warfarin 2 mg tablet 2 mg PO MOTUWETHFR blood thinner 07/16/24 Unknown History Allergy/AdvReac Type Severity Reaction Status Date / Time secobarbital sodium (From Allergy Unknown Verified 07/16/24 10:43 Seconal) venom-honey bee (bee venom Allergy Anaphylaxis Verified 07/16/24 10:43 (honey bee)) Family History Mother Diabetes Hypertension Myocardial infarction CAD (coronary artery disease) Father Hypertension Heart disease Diabetes Myocardial infarction CAD (coronary artery disease) Surgical History History of esophagogastroduodenoscopy (EGD) History of hip replacement Status post peripheral artery angioplasty History of left hip replacement History of cardiac radiofrequency ablation (~04/2008) Social History household members: other details: His mother lives with him. Smoking Status: Former smoker Tobacco: How many years used: 50 how long ago did patient quit smokin alcohol intake: current alcohol intake frequency: a few times a month Alcohol type: beer substance use type: does not use caffeine: No ROS ROS Narrative General: Has had some fevers and chills HENT: Denies headache, denies stuffy nose, denies sore throat EYES: Denies changes in vision Resp: Has been having some cough Cardiac: Denies chest pain GI: Denies abdominal pain, denies changes in bowel, denies nausea/vomiting : Denies changes in urination Extremity: Denies swelling MSK: Denies weakness Neuro: Denies any numbness/tingling Heme: Denies any bleeding or bruising Skin: Denies rashes Psychiatric: No complaints voiced Vital Signs Vital Signs Vital Signs: 07/17/24 09:19 07/17/24 09:19 Temperature 97.6 F L Temperature Source Temporal Pulse Rate 61 Respiratory Rate 16 Respiratory Pattern Normal Blood Pressure 115/72 Blood Pressure Mean 86 Blood Pressure Source Monitor Blood Pressure Position Semi-Fowlers Blood Pressure Location Left Arm Pulse Ox 98 Oxygen Delivery Method Room Air Weight Weight: 153 lb 3.54 oz Body Mass Index (BMI) 22.6 Physical Exam Const alert, oriented x3, no apparent distress and healthy appearing General Appearance: cooperative GI normal to inspection, nondistended, normoactive bowel sounds, soft to palpation, non-tender and non-distended Percussion: normal to percussion Rectal Exam: deferred Results Lab / Micro Data Labs: Laboratory Results - last 24 hr 07/17/24 08:48: POC PT 14.2, INR 1.2 Assessment & Plan Assessment/Plan (1) Barretts esophagus: QUALIFIERS: Vergara's esophagus type: without dysplasia Qualified Code(s): K22.70 - Vergara's esophagus without dysplasia PLAN: (1) Barretts esophagus: Status: Chronic Qualifiers: Vergara's esophagus type: without dysplasia Qualified Code(s): K22.70 - Vergara's esophagus without dysplasia Comment: ON PROTONIX Plan: We discussed his EGD and colonoscopy findings, focusing on Vergara's and the increased risk for esophageal cancer. I thought he was on omeprazole but apparently he wasn't, so I rx'd pantoprazole 40 mg QAM to be taken indefinitely. We will repeat EGD in one yr for long segment Vergara's. 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 Repeat colonoscopy 5 yrs. f/u 6 months.
[2024-07-17 10:00] LABS: Bedside Glucose 92 mg/dL (74-106)
--- NOTE | 2024-07-17 10:00 | EGD_PTH ---
PATIENT: ENRIQUE MCNALLY III LOC: EN U#:[id number] AGE/SX: 68/M ROOM: RE07/17/[address]: Dr. Pablo Pichardo DO : 1955 BED: DIS: 07/17/2024 SPEC #: [id number] RECD: 07/17/24 12:23 STATUS: LUKE RECarlos #: [id number] DERRICK: 07/17/24 10:[address]: Pablo Pichardo DEPT: SURGICAL PATHOLOGY RECD BY: Diogenes Alexis ENTERED: 07/17/24 12:52 SP TYPE: EGD BIOPSY OT DR: Adriel Pike MD Tissues: Esophagus, NOS Procedures: Special Stain Group I Surgery Specimen Level IV Alcian Blue/PAS (control) HEADER OPERATION: EGD biopsy PRE-OP DIAGNOSIS: Vergara's esophagus TISSUE SUBMITTED: Distal esophagus biopsy MICROSCOPIC DIAGNOSIS Distal esophagus, biopsy: Gastroesophageal junctional mucosa with mild chronic inflammation. 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 No evidence of dysplasia. See comment. 07/18/2024 COMMENT Alcian blue/PAS stain with matched control is used in the evaluation of the specimen. Immunohistochemistry ([id number]) for P53 and Ki-67 will be performed and results will be reported separately. MICROSCOPIC DESCRIPTION Slides are reviewed. GROSS DESCRIPTION Received in fixative is one container labeled with the patient's name and designated Distal esophagus biopsy. The specimen consists of multiple irregular fragments of light lópez soft tissue that in aggregate measure 0.2 x 0.1 x 2.0 cm. The specimen is totally submitted in one cassette. 07/17/2024 TC: CPT:68125,54089
--- NOTE | 2024-07-17 10:14 | PCM.PRE.AN2 ---
ASA Classification* ASA Classification ASA Classification: 3 Assessment & Plan Anesthesia* Anesthesia Assessment Anesthesia Assessment: Discussed sedation and/or anesthesia options, risks, benefits, and alternatives with patient/parents/legal guardian/POA. Questions invited. The patient/parents/legal guardian/POA seems to understand and agrees to proceed with anesthesia plan. Reviewed the physical assessment, medical history, allergy history and patient home medications list prior to surgery/procedure/anesthetic and documented any changes. Performed airway and anesthesia risk assessments. Anesthesia Type Anesthesia Type: MAC History Source History Obtained from:: Patient and Chart Anesthesia Focused Assessment* Temperature: 97.6 F Pulse Rate: 61 Blood Pressure: 115/72 Respiratory Rate: 16 Pulse Ox: 98 Oxygen Delivery Method: Room Air Airway Assessment Mouth opens: >3 cm Mallampati Score: I Teeth Condition: Missing (Missing bottom incisor.) Neck Range of motion (ROM): Full ROM Focused Labs Anesthesia Preop lab: CBC WBC 16.0 K/mm3 (4.4-11.0) H 05/21/24 09:40 RBC 4.19 M/mm3 (4.6-6.2) L 05/21/24 09:40 Hgb 12.8 g/dL (13.0-16.5) L 05/21/24 09:40 Hct 38.6 % (40-54) L 05/21/24 09:40 Plt Count 380 K/mm3 (150-450) 05/21/24 09:40 CHEMISTRY Potassium 3.6 mmol/L (3.5-5.1) 05/30/24 07:15 Sodium 134 mmol/L (136-145) L 05/21/24 09:40 Magnesium 2.6 mg/dL (1.6-2.6) 05/30/24 07:15 Phosphorus 2.3 mg/dL (2.5-4.9) L 05/11/24 06:35 BUN 21 mg/dL (7-18) H 05/21/24 09:40 Creatinine 1.05 mg/dL (0.70-1.30) 05/21/24 09:40 Glucose 129 mg/dL (74-106) H 05/21/24 09:40 POC Glucose 92 mg/dL (74-106) 07/17/24 09:33 TSH 2.45 uIU/mL (0.358-3.74) 05/22/19 09:00 COAG PT 21.3 SECONDS (11.7-14.9) H 07/09/24 07:40 INR 2.0 12/06/23 10:48 Pre-Assessment Diagnosis/Proposed Procedure Planned Operative Procedure(s): EGD WITH ABLATION Anesthesia History Anesthesia History - marklogic developer: Anesthesia History - marklogic developer Hx Hospitalization Yes: 04/2024 PNEUMONIA 07/16/24 10:49 Any Problems With Anesthesia No 07/16/24 10:49 Cholinesterase deficiency No 07/16/24 10:49 You/Your Family Experience No 07/16/24 10:49 fever (hyperthermia) with Relationship Recent Exposure to Contagious No 07/17/24 09:19 Disease Does patient have nerve No 07/16/24 10:49 stimulator Patient instructed to have device shut off --Does patient have Pacemaker No 07/17/24 09:19 or ICD? When Was Last Pacemaker Check QUESTION #4 FULL TEXT: You/Your Family Experience fever (hyperthermia) with Anesthesia Last Oral Intake Last Oral intake: Last Oral Intake NPO since 12:00 07/17/24 09:19 Meds taken in AM with sips of Yes 07/17/24 09:19 water? Meds patient instructed to DILITIAZEM, DOFETILIDE, 07/17/24 09:19 take am of surgery PANTOPRAZOLE, lasix Any additional information?: Yes NPO since: 04:30 (Meds with sips of water at 4:30 AM.) Meds taken in AM with sips of water?: Yes PONV PONV - marklogic developer: PONV - marklogic developer Female No 07/16/24 10:49 HX of Motion Sickness No 07/16/24 10:49 HX of N/V After Surgery No 07/16/24 10:49 Non-Smoker Yes 07/16/24 10:49 Duration of Surgery greater No 07/16/24 10:49 than 60 minutes Number of Risk Factors 1 07/16/24 10:49 PONV Score Low Risk 07/16/24 10:49 Height & Weight Height & Weight: Anesthesia: Height & Weight Height 5 ft 9 in 07/17/24 09:19 Weight: 69.5 kg 07/17/24 09:19 Body Mass Index (BMI) 22.6 07/17/24 09:19 Respiratory Assessment Respiratory Assessment - marklogic developer: Respiratory Tract Infection Hx - marklogic developer Hx Respiratory Tract Infection No 07/16/24 10:49 STOP Sleep Apnea STOP Sleep Apnea - marklogic developer: STOP Sleep Apnea - marklogic developer Hx Hypertension Yes: CONTROLLED WITH MEDS 07/16/24 10:49 Hx Sleep Apnea No 07/16/24 10:49 CPAP No 07/16/24 10:49 BIPAP No 07/16/24 10:49 Do you snore loudly (louder No 07/16/24 10:49 than talking or can be heard Do you often feel tired/ No 07/16/24 10:49 fatigued/ sleepy during daytime? Has anyone observed you stop No 07/16/24 10:49 breathing during sleep? STOP Results Negative 07/16/24 10:49 QUESTION #5 FULL TEXT : Do you snore loudly (louder than talking or can be heard through closed doors)? Tobacco Use History Tobacco Use History - marklogic developer: Tobacco Use History - marklogic developer Tobacco Use Smoking Status Former smoker 07/16/24 10:49 Hx Tobacco Use No 07/16/24 10:49 Years Smoking Packs Smoked per Day Smoking Cessation Date was Yes - quit smoking within 15 07/16/24 10:49 within the last 15 years years Hx Smoking Cessation Date 07/30/18 07/16/24 10:49 Hx Smoking Cessation No 07/16/24 10:49 Counseling Hematologic Medial History Hematologic Hx - marklogic developer: Hematologic Medical Hx - detail drafter Hx of Blood Transfusion Yes 07/16/24 10:49 Hx of Transfusion in last 3 No 07/16/24 10:49 Months Date of Last Transfusion (if within last 3 months) Ever experience any problems No 07/16/24 10:49 with transfusion(s)? Specify any problems Hx of Preganancy in last 3 N/A 07/16/24 10:49 Months Nurse Filling Out Transfusion NBUCHER 07/16/24 10:49 & Questions: Date: 07/16/24 07/16/24 10:49 Time: 10:50 07/16/24 10:49 Patient unable to answer at this time (ie. confused, unrespo /Reproduction History /Reproductive History - marklogic developer: /Reproductive Hx- marklogic developer Hx Now Gestational Age (in weeks): EDC: Hx Hx Para Hx Section SAB No 07/16/24 10:49 PFSH Medical History History of Holter monitoring Acute and chronic respiratory failure with hypoxia History of echocardiogram DVT (deep venous thrombosis) Injury of back History of hiatal hernia Shortness of breath on exertion Former smoker Leg cramps Cardiology follow-up encounter Pulmonary emphysema Hyperlipidemia Colon polyps Barretts esophagus Scabies Atrial fibrillation and flutter Osteoporosis Essential hypertension History of DVT (deep vein thrombosis) Paroxysmal atrial tachycardia Paroxysmal atrial fibrillation GERD (gastroesophageal reflux disease) Gout Type 2 diabetes mellitus Hypertension 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 Near syncope Bradycardia Tobacco dependence Afib Home Medications ?Medication ?Instructions ?Recorded ?Last Taken ?Type dofetilide 500 mcg capsule 500 mcg PO BID heart #180 caps 09/26/23 07/17/24 Rx potassium chloride 10 mEq 10 meq PO DAILY supplement #90 09/26/23 04/07/24 Rx tablet,extended release(part/cryst) tabs denosumab 60 mg/mL subcutaneous 60 mg subcut [id number] osteoperosis 11/29/23 Unknown Rx syringe (Prolia) #1 mL albuterol sulfate 90 mcg/actuation 2 puff inhalation Q6H PRN 01/28/24 07/17/24 Rx aerosol inhaler shortness of breath or wheezing #8.5 grams furosemide 40 mg tablet 40 mg PO DAILY edema 02/28/24 04/07/24 History omega-3 fatty acids 1,000 mg 1,000 mg PO DAILY supplement 02/28/24 04/07/24 History capsule budesonide 160 mcg-glycopyr 9 2 inh inhalation BID shortness of 03/12/24 04/07/24 Rx mcg-formot 4.8 mcg/actuation HFA breath #10.7 grams inhaler (Breztri Aerosphere) allopurinol 300 mg tablet 300 mg PO DAILY gout 04/07/24 07/17/24 History pantoprazole 40 mg tablet,delayed 40 mg PO BID gerd 04/07/24 07/17/24 History release guaifenesin 1,200 mg tablet, 1,200 mg PO Q12H cough #60 tabs 10/01/24 Unknown Rx extended release 12 hr diltiazem HCl 180 mg mg PO 07/16/24 07/17/24 History capsule,extended release 24 hr ipratropium 0.5 mg-albuterol 3 mg 3 ml inhalation TID PRN shortness 07/16/24 Unknown Rx (2.5 mg base)/3 mL nebulization of breath or wheezing #180 mL soln warfarin 1 mg tablet 1 mg PO SUSA 07/16/24 07/12/24 History warfarin 2 mg tablet 2 mg PO MOTUWETHFR blood thinner 07/16/24 Unknown History Allergy/AdvReac Type Severity Reaction Status Date / Time secobarbital sodium (From Allergy Unknown Verified 07/16/24 10:43 [place]) venom-honey bee (bee venom Allergy Anaphylaxis Verified 07/16/24 10:43 (honey bee)) Family History Mother Diabetes Hypertension Myocardial infarction CAD (coronary artery disease) Father Hypertension Heart disease Diabetes Myocardial infarction CAD (coronary artery disease) Surgical History History of esophagogastroduodenoscopy (EGD) History of hip replacement Status post peripheral artery angioplasty History of left hip replacement History of cardiac radiofrequency ablation (~04/2008) Social History household members: other details: His mother lives with him. Smoking Status: Former smoker Tobacco: How many years used: 50 how long ago did patient quit smokin alcohol intake: current alcohol intake frequency: a few times a month Alcohol type: beer substance use type: does not use caffeine: No Review of Systems (Anesthesia) ROS Narrative System reviewed and no additional complaints, except as documented.
--- NOTE | 2024-07-17 11:00 | OP.CCLET_ITS ---
07/17/2024 Adriel Pike Md Re : Upper GI endoscopy procedure for Roger Álvarezchris Pike This procedure was performed on June. My impressions and recommendations are as follows: Impressions : - Esophageal mucosal changes secondary to established short-segment Vergara's disease. Biopsied. - Medium-sized hiatal hernia. - Congestive gastropathy. - No gross lesions in the duodenal bulb. Recommendations : - Discharge patient to home. - Resume previous diet. - Continue present medications. - Await pathology results. - Repeat upper endoscopy in 4 months for surveillance. My findings are described in the full procedure note, which is enclosed. If I can be of further assistance, please feel free to contact me at . Sincerely, Pablo Pichardo, 07/17/2024 11:00:09 AM This report has been signed electronically.
--- NOTE | 2024-07-17 11:00 | OP.EGD_ITS ---
Patient Name: Roger Mart Procedure Date: 07/17/2024 10:34 AM Date of : 1955 Age: 68 Procedure: Upper GI endoscopy Indications: Vergara's esophagus with low grade dysplasia Providers: Pablo Pichardo DO Referring MD: Adriel Pike Md Medicines: Monitored Anesthesia Care Patient Profile: This is a 68 year old male. Refer to note in patient chart for documentation of history and physical. Patient has symptoms of chronic heartburn. His most recent EGD for Vergara's ablation and EGD for Vergara's biopsy was within the past year. Complications: No immediate complications. Procedure: Pre-Anesthesia Assessment: - Prior to the procedure, a History and Physical was performed, and patient medications and allergies were reviewed. The patient is competent. The risks and benefits of the procedure and the sedation options and risks were discussed with the patient. All questions were answered and informed consent was obtained. Patient identification and proposed procedure were verified by the physician in the pre-procedure area. Mental Status Examination: alert and oriented. Airway Examination: normal oropharyngeal airway and neck mobility. Respiratory Examination: clear to auscultation. CV Examination: normal. Prophylactic Antibiotics: The patient does not require prophylactic antibiotics. Prior Anticoagulants: The patient has taken no anticoagulant or antiplatelet agents except for NSAID medication. ASA Grade Assessment: II - A patient with mild systemic disease. After reviewing the risks and benefits, the patient was deemed in satisfactory condition to undergo the procedure. The anesthesia plan was to use monitored anesthesia care (MAC). Immediately prior to administration of medications, the patient was re-assessed for adequacy to receive sedatives. The heart rate, respiratory rate, oxygen saturations, blood pressure, adequacy of pulmonary ventilation, and response to care were monitored throughout the procedure. The physical status of the patient was re-assessed after the procedure. After obtaining informed consent, the endoscope was passed under direct vision. Throughout the procedure, the patient's blood pressure, pulse, and oxygen saturations were monitored continuously. The gastroscope was introduced through the mouth, and advanced to the second part of duodenum. The upper GI endoscopy was accomplished without difficulty. The patient tolerated the procedure well. Scope In: 10:48:16 AM Scope Out: 10:52:28 AM Total Procedure Duration Time 0 hours 4 minutes 12 seconds Findings: There were esophageal mucosal changes secondary to established short-segment Vergara's disease present in the lower third of the esophagus. The maximum longitudinal extent of these mucosal changes was 2 cm in length. Mucosa was biopsied with a cold forceps for histology in a targeted manner at intervals of 1 cm in the lower third of the esophagus. One specimen bottle was sent to pathology. Biopsies were taken with a cold forceps for histology. Verification of patient identification for the specimen was done. Estimated blood loss was minimal. A medium-sized hiatal hernia was present. Diffuse moderately congested mucosa was found in the entire examined stomach. No gross lesions were noted in the duodenal bulb. Impression: - Esophageal mucosal changes secondary to established short-segment Vergara's disease. Biopsied. - Medium-sized hiatal hernia. - Congestive gastropathy. - No gross lesions in the duodenal bulb. Recommendation: - Discharge patient to home. - Resume previous diet. - Continue present medications. - Await pathology results. - Repeat upper endoscopy in 4 months for surveillance. Procedure Code(s): --- Professional --- 31591, Esophagogastroduodenoscopy, flexible, transoral; with biopsy, single or multiple CPT copyright 2021 [employer]. All rights reserved. The codes documented in this report are preliminary and upon poleyard supervisor review may be revised to meet current compliance requirements. Pablo Pichardo DO 07/17/2024 11:00:09 AM This report has been signed electronically. Number of Addenda: 0 Note Initiated On: 07/17/2024 10:34 AM
--- NOTE | 2024-07-17 11:03 | PCM.POST.ANE ---
Anesthesia: Postop Eval I Current Vital Signs Temperature: 97.2 F Pulse Rate: 61 Blood Pressure: 89/61 Respiratory Rate: 14 Pulse Ox: 93 Oxygen Delivery Method: Room Air Assessment Airway patent: Yes Spontaneous unlabored respirations: Yes Mental status: Asleep nausea: No Vomiting: No Anesthesia Complication: No Fluid Hydration Crystalloid volume administer (ml): 40 Total IV fluid infused: 40 Progress Note Anesthesia document: Postop Eval 1 completed: Yes
--- NOTE | 2024-07-18 07:34 | PCM.POSTANE2 ---
Anesthesia Postop Eval I Sum Postop Eval Completion status Anesthesia document: Postop Eval 1 completed: Yes Anesthesia Postop Eval I Summary Anesthesia Postop Eval I Summary: Anesthesia Postop Eval I: Assessment Summary Airway patent Yes 07/17/24 11:04 [email or web address] Spontaneous unlabored Yes 07/17/24 11:04 [email or web address] respirations Mental status Asleep 07/17/24 11:04 [email or web address] nausea No 07/17/24 11:04 [email or web address] Vomiting No 07/17/24 11:04 [email or web address] Anesthesia Postop Eval I: Fluid Summary Crystalloid volume administer 40 07/17/24 11:04 [email or web address] (ml) Colloids volume administered ( ml) Blood Product volume administered (ml) Total IV fluid infused 40 07/17/24 11:04 [email or web address] Anesthesia Postop Eval I: Summary Notes Anesthesia Complication No 07/17/24 11:04 [email or web address] Anesthesia Complication Comment: Post-operative progress note Anesthesia: Postop Eval II Evaluation Mental status: Awake Pain Level: 0 nausea: No Vomiting: No
== END 2024-07-17 11:45 | disposition home or self-care (01) ==
LOC: EN 08:38 → AC 08:44
PROVIDERS: PCP Family Medicine; Referring Provider Family Medicine; Visit Provider Internal Medicine Gastroenterology
PROC: 0DJ08ZZ Inspection of Upper Intestinal Tract, Via Natural or Artificial Opening Endoscopic (ICD-10-PCS; CPT 43235; principal; 2024-07-17 09:55)
DX: K22.70 Barrett's esophagus without dysplasia (principal); J43.9 Emphysema, unspecified; I48.91 Unspecified atrial fibrillation; E11.9 Type 2 diabetes mellitus without complications; I10 Essential (primary) hypertension; Z79.01 Long term (current) use of anticoagulants; Z87.891 Personal history of nicotine dependence; E78.5 Hyperlipidemia, unspecified; Z86.0100 Personal history of colon polyps, unspecified; Z79.899 Other long term (current) drug therapy; K21.00 Gastro-esophageal reflux disease with esophagitis, without bleeding; K31.A0 Gastric intestinal metaplasia, unspecified; K44.9 Diaphragmatic hernia without obstruction or gangrene
CPT/HCPCS: 43239; 36416; 82962; 85610; 88305; 88312; 88341; 88342; J2405

== ENCOUNTER → 2024-08-05 | Outpatient (CLI) | payer MEDICARE, MEDICAID, SELFPAY | END | disposition home or self-care (01) | LOC: SL 20:07 | PROVIDERS: PCP Family Medicine; Referring Provider Nurse Practitioner Acute Care; Visit Provider Nurse Practitioner Acute Care | DX: G47.10 Hypersomnia, unspecified (principal) | CPT/HCPCS: 95810 ==

== ENCOUNTER 2024-08-26 07:08 | Outpatient (RCR) | payer MEDICARE, MEDICAID, SELFPAY ==
[2024-07-30 05:02] VITALS: BMI 24.1
[2024-08-05 10:28] LABS: International Normalized Ratio 1.4; Prothrombin Time (Protime)PT. 17.6 SECONDS (11.7-14.9)
[2024-08-18 14:31] LABS: International Normalized Ratio 1.9
[2024-08-26 10:15] LABS: International Normalized Ratio 2.1
== END 2024-08-26 18:00 | disposition home or self-care (01) ==
LOC: MTLAB 07:08
PROVIDERS: Family Provider Family Medicine; PCP Family Medicine; Referring Provider Nurse Practitioner Family; Visit Provider Nurse Practitioner Family
DX: I48.0 Paroxysmal atrial fibrillation (principal); Z79.01 Long term (current) use of anticoagulants

== ENCOUNTER → 2024-08-26 | Outpatient (CLI) | payer MEDICARE, MEDICAID, SELFPAY | END | disposition home or self-care (01) | LOC: SL 19:44 | PROVIDERS: PCP Family Medicine; Referring Provider Nurse Practitioner Acute Care; Visit Provider Nurse Practitioner Acute Care | DX: G47.33 Obstructive sleep apnea (adult) (pediatric) (principal) | CPT/HCPCS: 95811 ==

== ENCOUNTER 2024-09-17 06:04 | Outpatient (RCR) | payer MEDICARE, MEDICAID, SELFPAY ==
[2024-08-30 02:46] VITALS: BMI 24.1
[2024-09-17 07:05] LABS: International Normalized Ratio 1.7; Prothrombin Time (Protime)PT. 20.1 SECONDS (11.7-14.9)
== END 2024-09-26 18:00 | disposition home or self-care (01) ==
LOC: MTLAB 06:04
PROVIDERS: Family Provider Family Medicine; PCP Family Medicine; Referring Provider Nurse Practitioner Family; Visit Provider Nurse Practitioner Family
DX: I48.0 Paroxysmal atrial fibrillation (principal); Z79.01 Long term (current) use of anticoagulants
CPT/HCPCS: 36415; 85610

== ENCOUNTER 2024-11-24 05:59 | Outpatient (RCR) | payer MEDICARE, MEDICAID, SELFPAY ==
[2024-10-27 23:40] VITALS: BMI 24.1
[2024-10-28 10:49] LABS: International Normalized Ratio 1.8; Prothrombin Time (Protime)PT. 21.2 SECONDS (11.7-14.9)
[2024-11-05 10:43] LABS: International Normalized Ratio 1.7; Prothrombin Time (Protime)PT. 19.8 SECONDS (11.7-14.9)
[2024-11-14 10:13] LABS: International Normalized Ratio 1.9
[2024-11-24 06:55] LABS: International Normalized Ratio 1.7
== END 2024-11-26 18:00 | disposition home or self-care (01) ==
LOC: MTLAB 05:59
PROVIDERS: Internal Medicine Cardiovascular Disease; Family Provider Family Medicine; PCP Family Medicine; Referring Provider Nurse Practitioner Family; Visit Provider Nurse Practitioner Family
DX: I48.0 Paroxysmal atrial fibrillation (principal); Z79.01 Long term (current) use of anticoagulants
CPT/HCPCS: 36415; 85610

== ENCOUNTER 2024-11-25 14:28 | Emergency (ER) | payer MEDICARE, MEDICAID, SELFPAY ==
[2024-11-25] VITALS (13 sets, daily range): BP systolic 114–142; BP diastolic 85–106; PULSE 91–94; RESP 13–26; TEMP 36.9–37; O2SAT 95–100; BMI 24.7
--- NOTE | 2024-11-25 16:50 | EX.ED.DYSGE1 ---
HPI History of Present Illness Chief Complaint: Palpitations Informant: patient Onset/Context/Timing Onset: Days (4) Context: Sudden Onset Timing: Waxes and wanes Quality: Heart racing Location: Chest Worsened by: Standing, activity Relieved by: Sitting Narrative Narrative: Patient presents with palpitations that have been a little waxing and waning over the past 4 days. Patient states it came on suddenly. Patient states he stood up and his heart rate went up to 105. Patient states he sat back down and his heart rate went back down to normal. Patient states his heart rate normally runs in the upper 60s. Patient states over the last couple days his heart rate has been in the 80s and goes up to 105. Patient denies any chest pain. Patient denies any shortness of breath. Patient denies any nausea or vomiting. [facility] Medical History History of Holter monitoring Acute and chronic respiratory failure with hypoxia History of echocardiogram DVT (deep venous thrombosis) Injury of back History of hiatal hernia Shortness of breath on exertion Former smoker Leg cramps Cardiology follow-up encounter Pulmonary emphysema Hyperlipidemia Colon polyps Barretts esophagus Scabies Atrial fibrillation and flutter Osteoporosis Essential hypertension History of DVT (deep vein thrombosis) Paroxysmal atrial tachycardia Paroxysmal atrial fibrillation GERD (gastroesophageal reflux disease) Gout Type 2 diabetes mellitus Hypertension Tachycardia assisted (current) use of anticoagulants Near syncope Bradycardia Tobacco dependence Afib Home Medications ?Medication ?Instructions ?Recorded ?Last Taken ?Type denosumab 60 mg/mL subcutaneous 60 mg subcut [id number] osteoperosis 11/29/23 Unknown Rx syringe (Prolia) #1 mL omega-3 fatty acids 1,000 mg 1,000 mg PO DAILY supplement 02/28/24 04/07/24 History capsule allopurinol 300 mg tablet 300 mg PO DAILY gout 04/07/24 07/17/24 History pantoprazole 40 mg tablet,delayed 40 mg PO BID gerd #60 tabs 08/07/24 Unknown Rx release cholecalciferol (vitamin D3) 50 50 mcg PO QDAY 08/18/24 Unknown History mcg (2,000 unit) capsule diltiazem HCl 240 mg 240 mg PO QDAY #90 caps 08/18/24 Unknown Rx capsule,extended release 24 hr dofetilide 500 mcg capsule 500 mcg PO BID heart #180 caps 08/18/24 Unknown Rx furosemide 40 mg tablet 40 mg PO DAILY edema #90 tabs 08/18/24 Unknown Rx potassium chloride 10 mEq 10 meq PO DAILY supplement #90 08/18/24 Unknown Rx tablet,extended release(part/cryst) tabs albuterol sulfate 90 mcg/actuation 2 puff inhalation Q6H PRN 10/15/24 Unknown Rx aerosol inhaler shortness of breath or wheezing #8.5 grams guaifenesin 1,200 mg tablet, 1,200 mg PO Q12H cough #60 tabs 10/15/24 Unknown Rx extended release 12 hr ipratropium 0.5 mg-albuterol 3 mg 3 ml inhalation TID PRN shortness 10/15/24 Unknown Rx (2.5 mg base)/3 mL nebulization of breath or wheezing #180 mL soln warfarin 3 mg tablet 3 mg PO QDAY #90 tabs 11/13/24 Unknown Rx warfarin 4 mg tablet 4 mg PO QDAY #90 tabs 11/13/24 Unknown Rx fluticasone fur. 100 mcg-umeclid 1 inh inhalation Q24H #60 ea 11/21/24 Unknown Rx 62.5 mcg-vilant 25 mcg inhalat.powder (Trelegy Ellipta) Allergy/AdvReac Type Severity Reaction Status Date / Time secobarbital sodium (From Allergy Unknown Verified 11/25/24 14:29 [place]) venom-honey bee (bee venom Allergy Anaphylaxis Verified 11/25/24 14:29 (honey bee)) Family History Mother Diabetes Hypertension Myocardial infarction CAD (coronary artery disease) Father Hypertension Heart disease Diabetes Myocardial infarction CAD (coronary artery disease) Surgical History History of esophagogastroduodenoscopy (EGD) History of hip replacement Status post peripheral artery angioplasty History of left hip replacement History of cardiac radiofrequency ablation (~04/2008) Social History household members: other details: His mother lives with him. Smoking Status: Former smoker Tobacco: How many years used: 50 how long ago did patient quit smokin alcohol intake: current alcohol intake frequency: a few times a month Alcohol type: beer substance use type: does not use caffeine: No ROS ROS ED Constitutional Constitutional ED: Denies chills or fever(s) Eyes Eyes: Denies blurry vision or change in vision ENT ENT ED: Denies rhinorrhea or sore throat Cardiovascular Cardiovascular: Reports palpitations and racing heartbeat; Denies chest pain Respiratory/Chest Respiratory/Chest: Denies cough or dyspnea Gastrointestinal Gastrointestinal: Denies nausea or vomiting Genitourinary Genitourinary ED: Denies dysuria or hematuria Musculoskeletal Musculoskeletal: Denies back pain or neck pain Integumentary Denies abscess or rash Neurologic Neurologic: Denies headache(s) or weakness Allergic/Immunologic Allergic/Immunologic ED: Denies mouth swelling or urticaria EXAM Physical Exam Const Vital Signs: 11/25/24 14:29 11/25/24 16:29 11/25/24 16:41 Temperature 98.6 F Temperature Source Oral Pulse Rate 94 92 91 Respiratory Rate 18 17 16 Respiratory Effort Blood Pressure 118/93 H 129/92 H Blood Pressure Mean 101 104 Pulse Ox 100 97 97 Oxygen Delivery Method Room Air Room Air 11/25/24 16:43 11/25/24 16:45 11/25/24 17:00 Temperature Temperature Source Pulse Rate 92 93 Respiratory Rate 13 23 H Respiratory Effort Normal Non-Labored Blood Pressure 137/104 H 142/106 H Blood Pressure Mean 115 118 Pulse Ox 98 99 Oxygen Delivery Method 11/25/24 17:15 11/25/24 17:28 11/25/24 17:30 Temperature Temperature Source Pulse Rate 91 91 Respiratory Rate 26 H 13 Respiratory Effort Blood Pressure 119/99 H 115/86 H Blood Pressure Mean 106 96 Pulse Ox 95 96 Oxygen Delivery Method Room Air 11/25/24 17:45 11/25/24 18:00 11/25/24 18:15 Temperature Temperature Source Pulse Rate 91 91 91 Respiratory Rate 14 18 17 Respiratory Effort Blood Pressure 123/91 H 119/87 H 120/88 H Blood Pressure Mean 103 97 99 Pulse Ox 95 97 96 Oxygen Delivery Method 11/25/24 18:30 11/25/24 20:00 Temperature Temperature Source Pulse Rate 91 91 Respiratory Rate 21 H 25 H Respiratory Effort Blood Pressure 114/89 H 116/85 H Blood Pressure Mean 98 95 Pulse Ox 97 97 Oxygen Delivery Method Positive well nourished and well developed Constitutional Narrative: BMI is 24.8 General Appearance ED: well developed and NAD HEENT Reports moist mucous membranes Neck supple and no JVD Resp normal respiratory effort and clear to auscultation bilaterally Cardio regular rate and regular rhythm GI non-tender and non-distended Palpation: soft Neuro oriented x3, CN's II-XII intact bilaterally and no sensory deficits noted Sensorium / Orientation: alert Motor Exam: strength 5/5 throughout Psych mental status grossly normal MDM MDM MDM Narrative Medical decision making narrative: Differential this includes cardiac dysrhythmia, cardiac ischemia, electrolyte abnormality, pneumonia, bronchitis, coagulopathy, pulmonary embolism, and anxiety. EKG will be obtained to assess for cardiac dysrhythmia and cardiac ischemia. Chest x-ray will be obtained to assess for pneumonia and bronchitis. CBC will be obtained to assess for leukocytosis and anemia. Basic metabolic profile will be obtained to assess for electrolyte abnormality renal function. High-sensitivity troponin will be obtained to assess for cardiac ischemia. D-dimer will be obtained to assess for pulmonary embolism. PT with INR and PTT will be obtained to assess for coagulopathy. Lab Data Attestation: I reviewed the patient's lab results. Lab results narrative: CBC was reviewed and was within normal limits. Basic metabolic profile was reviewed. Creatinine was slightly elevated 1.32. This was slightly increased from previous result. PT with INR and PTT were reviewed. Pro time was 26.4 and INR is 2.4. PTT was 50.8. D-dimer was reviewed and was less than 0.27. Initial high-sensitivity troponin was reviewed and was elevated at 24. 2-hour repeat high-sensitivity troponin was reviewed and was normal at 22. Labs: Laboratory Results - last 24 hr 11/25/24 11/25/24 11/25/24 16:47 18:10 18:47 WBC 9.8 RBC 4.82 Hgb 14.2 Hct 42.6 MCV 88.4 MCH 29.5 MCHC 33.3 RDW Std Deviation 54.5 H RDW Coeff of Vivek 17.1 H Plt Count 302 MPV 9.8 Immature Gran % (Auto) 0.500 Neut % (Auto) 67.5 Lymph % (Auto) 21.1 [place] % (Auto) 8.7 Eos % (Auto) 1.4 Baso % (Auto) 0.8 Absolute Neuts (auto) 6.6 Absolute Lymphs (auto) 2.07 Nucleated RBC % 0 PT 26.4 H INR 2.4 APTT 50.8 H D-Dimer Quant (PE/DVT) < 0.27 L Sodium 140 Potassium 4.0 Chloride 100 Carbon Dioxide 26.0 Anion Gap 14 BUN 18 Creatinine 1.32 H Estim Creat Clear Calc 52.82 Est GFR (MDRD) Non-Af 58 L BUN/Creatinine Ratio 13.9 Glucose 84 Calcium 9.7 Troponin T High Sens 24 H Troponin T Hi Sens 2 Hr 22 Radiography Chest X-Ray - ED: 1 View, Read by ED Physician, Read by Radiologist and Chronic Changes Diagnostic Testing: Clinical Impression(s) from Imaging Studies Chest X-Ray 11/25/24 17:25 IMPRESSION: 1. Emphysema with similar mild vague opacities throughout the LEFT lung. Persistence suggests this may reflect a superimposed chronic interstitial abnormality, although it is difficult to entirely exclude recurrent atypical pneumonia/pneumonitis. Correlate with presentation and consider outpatient pulmonology consultation. 2. Given emphysema, recommend outpatient lung cancer screening per the below. 3. Additional description as above. The USPSTF recommends annual screening for lung cancer with low-dose computed tomography (LDCT) in adults aged 50 to 80 years who have a 20 pack-year smoking history and currently smoke or have quit within the past 15 years. Reading Location: [facility] Portable 1 view chest x-ray was obtained. On my independent interpretation, lung tolbert showed chronic changes. There is normal cardiac silhouette. Bony thorax is normal. There is no acute process noted. Radiologist also interpreted the x-ray and agrees. EKG Initial EKG: Attestation: I personally reviewed and interpreted this EKG as follows: Interpretation: Sinus Rhythm, AV Block (First degree) and Non-Specific ST Changes Comments: EKG was obtained. On my independent interpretation, it showed a sinus rhythm with a first-degree AV block with a rate of 94. CO interval was approximately 320 ms. QRS interval was normal at 76 ms. QTc interval was normal at 472 ms. [place] was normal. There are nonspecific ST-T wave changes. There are no changes compared to previous EKG. Prior EKG tracings: available for review Prior: Unchanged (05/10/2024) Treatment and Re-Evaluation :: Patient was given aspirin here. Patient was advised of his findings. Patient is feeling better on reevaluation. Patient has a HEART score of 4. Patient was instructed to drink plenty of fluids. Patient was instructed to follow-up with his primary care physician in 5 to 7 days. Patient understood and was agreeable with plan. All questions were answered. Discharge Plan Triage Chief Complaint: Palpitations ED Provider: Gagandeep Arechiga Dx/Rx/DC Orders Clinical Impression: Heart palpitations, Type 2 diabetes mellitus, Essential hypertension Instructions: ED Palpitations Prescriptions: No Action omega-3 fatty acids 1,000 mg capsule 1,000 mg PO DAILY cholecalciferol (vitamin D3) 50 mcg (2,000 unit) capsule 50 mcg PO QDAY dofetilide 500 mcg capsule 500 mcg PO BID Qty: 180 3RF furosemide 40 mg tablet 40 mg PO DAILY Qty: 90 3RF diltiazem HCl 240 mg capsule,extended release 24hr 240 mg PO QDAY Qty: 90 3RF potassium chloride 10 mEq tablet,ER particles/crystals 10 meq PO DAILY Qty: 90 3RF albuterol sulfate 90 mcg/actuation HFA aerosol inhaler 2 puff inhalation Q6H PRN (Reason: shortness of breath or wheezing) Qty: 8.5 6RF ipratropium-albuterol 0.5 mg-3 mg(2.5 mg base)/3 mL solution for nebulization 3 ml inhalation TID PRN (Reason: shortness of breath or wheezing) Qty: 180 11RF guaifenesin 1,200 mg tablet extended release 12hr 1,200 mg PO Q12H Qty: 60 6RF allopurinol 300 mg tablet 300 mg PO DAILY Prolia 60 mg/mL syringe 60 mg subcut [id number] Qty: 1 1RF pantoprazole 40 mg tablet,delayed release (DR/EC) 40 mg PO BID Qty: 60 3RF warfarin 3 mg tablet 3 mg PO QDAY Qty: 90 3RF Protocol: Dose Management Condition: Sunday Dose/Route: 4 mg Instruction: 1 x 4 mg tablet Condition: Sunday Dose/Route: 6 mg Instruction: 2 x 3 mg tablets Condition: Sunday Dose/Route: 4 mg Instruction: 1 x 4 mg tablet Condition: Sunday Dose/Route: 4 mg Instruction: 1 x 4 mg tablet Condition: Dose/Route: 4 mg Instruction: 1 x 4 mg tablet Condition: Sunday Dose/Route: 4 mg Instruction: 1 x 4 mg tablet Condition: Sunday Dose/Route: 4 mg Instruction: 1 x 4 mg tablet Protocol Text: Adjustment Start Date: Sunday11/24/24 INR Value: 1.7 INR Date: 11/24/24 Recheck Date: 12/01/24 Rx Instructions: take as directed warfarin 4 mg tablet 4 mg PO QDAY Qty: 90 3RF Protocol: Dose Management Condition: Sunday Dose/Route: 4 mg Instruction: 1 x 4 mg tablet Condition: Sunday Dose/Route: 6 mg Instruction: 2 x 3 mg tablets Condition: Sunday Dose/Route: 4 mg Instruction: 1 x 4 mg tablet Condition: Sunday Dose/Route: 4 mg Instruction: 1 x 4 mg tablet Condition: Dose/Route: 4 mg Instruction: 1 x 4 mg tablet Condition: Sunday Dose/Route: 4 mg Instruction: 1 x 4 mg tablet Condition: Sunday Dose/Route: 4 mg Instruction: 1 x 4 mg tablet Protocol Text: Adjustment Start Date: Sunday11/24/24 INR Value: 1.7 INR Date: 11/24/24 Recheck Date: 12/01/24 Rx Instructions: take as directed Trelegy Ellipta 100-62.5-25 mcg blister with device 1 inh inhalation Q24H Qty: 60 5RF Primary Care Provider: Adriel Pike Referrals: Adriel Pike MD [Primary Care Provider] - 5-7 Days Print Language: Swazi Disposition Disposition: Home, Self Care
--- NOTE | 2024-11-25 17:25 | EKG12_ITS ---
Test Reason : PALP Blood Pressure : */* mmHG Vent. Rate : 94 BPM Atrial Rate : 94 BPM P-R Int : 72 ms QRS Dur : 76 ms QT Int : 378 ms P-R-T Axes : * 89 16 degrees QTcB Int : 472 ms Junctional rhythm Septal infarct , age undetermined Abnormal ECG Confirmed by LEANNA REIS, GIRISH ([id number]), editor news ISABELLE FARNSWORTH ([id number]) on 11/26/2024 1:33:01 PM Referred By: UG/TL Confirmed By: GIRISH RAM MD
--- NOTE | 2024-11-25 17:25 | RAD_ITS ---
PROCEDURE: CHEST 1 VIEW (PORTABLE) (RADCXPA_P), 11/25/2024 REASON FOR EXAM: CHEST PAIN TECHNIQUE: A single portable AP view of the chest was obtained. COMPARISON: 05/21/2024 FINDINGS: Heart: Unremarkable. Mediastinum: Atherosclerosis.. Lungs/pleura: Emphysema. Similar mild vague opacities throughout the LEFT chest. No sizeable pleural effusion or visible pneumothorax. Bones: Suspect demineralization.. Lines and support devices: None. Other: None. RAD/Chest 1 View (Portable) IMPRESSION: 1. Emphysema with similar mild vague opacities throughout the LEFT lung. Persi stence suggests this may reflect a superimposed chronic interstitial abnormality, although it is difficult to entirely exclude recurrent atypical pneumonia/pneumonitis. Correlate with presentation and consider outpatient pulmonology consultation. 2. Given emphysema, recommend outpatient lung cancer screening per the below. 3. Additional description as above. The USPSTF recommends annual screening for lung cancer with low-dose computed t omography (LDCT) in adults aged 50 to 80 years who have a 20 pack-year smoking history and currently smoke or have quit within the past 15 years. Reading Location: [id number]
[2024-11-25] MEDS: Aspirin 81 MG TAB.CHEW 324 MG PO (17:34)
[2024-11-25 17:44] LABS: Absolute Lymphocyte Count 2.07 X10^3/uL (0.83-4.51); Absolute Neutrophil Count 6.6 X10^3/uL (2.0-7.7); Basophil# 0.08 X10^3/uL; Basophil% 0.8 % (0-1); Eosinophil# 0.14 X10^3/uL; Eosinophils% 1.4 % (0-5); Hematocrit 42.6 % (40-54); Hemoglobin 14.2 g/dL (13.0-16.5); Lymphocyte # 2.07 X10^3/ul (0.83-4.51); Lymphocyte % 21.1 % (19-41); Mean Corp Hgb Conc 33.3 g/dL (32-36); Mean Corpuscular Hgb 29.5 pg (27.0-32.0); Mean Corpuscular Volume 88.4 fL (80-94); Mean Platelet Vol. 9.8 fl (6.2-12.0); Monocyte# 0.86 X10^3/uL; Monocyte% 8.7 % (0-10); NRBC Flagged by Analyzer 0 % (0-5); Neutrophil # 6.63 X10^3/uL (2.7-7.7); Neutrophil % 67.5 % (47-70); Platelet Count 302 K/mm3 (150-450); RBC Distribution Width CV 17.1 % (11.6-14.6); RBC Distribution Width SD 54.5 fl (35.1-43.9); Red Blood Count 4.82 M/mm3 (4.6-6.2); White Blood Count 9.8 K/mm3 (4.4-11.0)
[2024-11-25 18:06] LABS: Anion Gap 14 (5-15); BUN 18 mg/dL (4-19); BUN/Creat Ratio 13.9 RATIO (10-20); Calcium,Total 9.7 mg/dL (7.6-11.0); Chloride 100 mmol/L (98-108); Creatinine, Serum 1.32 mg/dL (0.70-1.20); EST Glomerular Filtration Rate 58 (>60); Estimated Creatinine Clearance 52.82 ml/min (50-250); Glucose 84 mg/dL (70-99); Sodium Level 140 mmol/L (133-145); Troponin T High Sensitivity 24 ng/L (<=22)
[2024-11-25 18:25] LABS: D-Dimer Quantitative (DVT/PE) < 0.27 FEU/ug/m (0.27-0.49)
[2024-11-25 18:27] LABS: International Normalized Ratio 2.4; Prothrombin Time (Protime)PT. 26.4 SECONDS (11.7-14.9)
[2024-11-25 18:28] LABS: Partial Thromboplast Time 50.8 Seconds (24.1-36.2)
[2024-11-25 19:18] LABS: Troponin T High Sens 2 HR 22 ng/L (<=22)
== END 2024-11-25 20:43 | disposition home or self-care (01) ==
PROVIDERS: Emergency Provider Emergency Medicine; PCP Family Medicine; Visit Provider Emergency Medicine
DX: R00.2 Palpitations (principal); I48.0 Paroxysmal atrial fibrillation; E11.9 Type 2 diabetes mellitus without complications; R00.0 Tachycardia, unspecified; I10 Essential (primary) hypertension; E78.5 Hyperlipidemia, unspecified; Z79.01 Long term (current) use of anticoagulants; Z79.899 Other long term (current) drug therapy; Z87.891 Personal history of nicotine dependence
CPT/HCPCS: 71045; 80048; 84484; 85025; 85379; 85610; 85730; 93005; 99284; A4216

== ENCOUNTER 2024-12-16 06:27 | Outpatient (RCR) | payer MEDICARE, MEDICAID, SELFPAY ==
[2024-11-27 01:02] VITALS: BMI 24.1
[2024-12-02 10:51] LABS: International Normalized Ratio 2.2; Prothrombin Time (Protime)PT. 24.5 SECONDS (11.7-14.9)
[2024-12-09 06:31] LABS: International Normalized Ratio 3.4; Prothrombin Time (Protime)PT. 34.9 SECONDS (11.7-14.9)
[2024-12-16 07:57] LABS: International Normalized Ratio 2.2; Prothrombin Time (Protime)PT. 25.3 SECONDS (11.7-14.9)
[2024-12-16 08:25] LABS: ALB/GLOB Ratio 1.3 RATIO (0.9-2.4); AST(SGOT) 20 U/L (<=37); Alanine Aminotransfer ALT/SGPT 14 U/L (<=46); Albumin, Serum 4.1 g/dL (3.4-4.8); Alkaline Phosphatase 73 U/L (40-129); Anion Gap 11 (5-15); BUN 13 mg/dL (4-19); BUN/Creat Ratio 11.1 RATIO (10-20); Calcium,Total 8.5 mg/dL (7.6-11.0); Carbon Dioxide 23.1 mmol/L (21.0-32.0); Chloride 100 mmol/L (98-108); Creatinine, Serum 1.15 mg/dL (0.70-1.20); EST Glomerular Filtration Rate 69 (>60); Globulin 3.1 g/dL (2.2-4.2); Glucose 94 mg/dL (70-99); Potassium 4.1 mmol/L (3.3-5.1); Protein, Total 7.3 g/dL (5.9-8.4); Sodium Level 134 mmol/L (133-145); Total Bilirubin 0.48 mg/dL (0.00-1.30); Vitamin D,25 Hydroxy 34.9 ng/mL (30-100)
== END 2024-12-16 18:00 | disposition home or self-care (01) ==
LOC: MTLAB 06:27
PROVIDERS: Internal Medicine Endocrinology, Diabetes & Metabolism; Family Provider Family Medicine; PCP Family Medicine; Referring Provider Nurse Practitioner Family; Visit Provider Nurse Practitioner Family
DX: Z79.01 Long term (current) use of anticoagulants; M81.0 Age-related osteoporosis without current pathological fracture; E55.9 Vitamin D deficiency, unspecified; E03.9 Hypothyroidism, unspecified
CPT/HCPCS: 36415; 80053; 82306; 85610

== ENCOUNTER → 2024-12-23 | Outpatient (CLI) | payer MEDICARE, MEDICAID, SELFPAY | END | disposition home or self-care (01) | LOC: PSN 09:56 | PROVIDERS: PCP Family Medicine; Referring Provider Student in an Organized Health Care Education/Training Program; Visit Provider Student in an Organized Health Care Education/Training Program | DX: I48.92 Unspecified atrial flutter (principal); R00.0 Tachycardia, unspecified | CPT/HCPCS: 93225; 93226 ==

== ENCOUNTER 2024-12-30 10:55 | Day surgery (SDC) | payer MEDICARE, MEDICAID, SELFPAY ==
--- NOTE | 2024-12-25 14:42 | PAT.ANE_ITS ---
Pre-Assessment Diagnosis/Proposed Procedure Planned Operative Procedure(s): EGD Anesthesia History Anesthesia History - rn peritoneal dialysis: Anesthesia History - rn peritoneal dialysis Hx Hospitalization Yes: 04/2024 PNEUMONIA 12/25/24 10:54 Any Problems With Anesthesia No 12/25/24 10:54 Cholinesterase deficiency No 12/25/24 10:54 You/Your Family Experience No 12/25/24 10:54 fever (hyperthermia) with Relationship Recent Exposure to Contagious No 07/17/24 09:19 Disease Does patient have nerve No 12/25/24 10:54 stimulator Patient instructed to have device shut off --Does patient have Pacemaker or ICD? When Was Last Pacemaker Check QUESTION #4 FULL TEXT: You/Your Family Experience fever (hyperthermia) with Anesthesia Last Oral Intake Last Oral intake: Last Oral Intake NPO since Meds taken in AM with sips of water? Meds patient instructed to take am of surgery PONV PONV - rn peritoneal dialysis: PONV - rn peritoneal dialysis Female No 12/25/24 10:54 HX of Motion Sickness No 12/25/24 10:54 HX of N/V After Surgery No 12/25/24 10:54 Non-Smoker Yes 12/25/24 10:54 Duration of Surgery greater No 12/25/24 10:54 than 60 minutes Number of Risk Factors 1 12/25/24 10:54 PONV Score Low Risk 12/25/24 10:54 Height & Weight Height & Weight: Anesthesia: Height & Weight Height 5 ft 9 in 08/01/24 10:41 Respiratory Assessment Respiratory Assessment - rn peritoneal dialysis: Respiratory Tract Infection Hx - rn peritoneal dialysis Hx Respiratory Tract Infection No 12/25/24 10:54 STOP Sleep Apnea STOP Sleep Apnea - rn peritoneal dialysis: STOP Sleep Apnea - rn peritoneal dialysis Hx Hypertension Yes: CONTROLLED WITH MEDS 12/25/24 10:54 Hx Sleep Apnea Yes 12/25/24 10:54 CPAP Yes 12/25/24 10:54 BIPAP No 12/25/24 10:54 Do you snore loudly (louder than talking or can be heard Do you often feel tired/ fatigued/ sleepy during daytime? Has anyone observed you stop breathing during sleep? STOP Results Positive 12/25/24 10:54 QUESTION #5 FULL TEXT : Do you snore loudly (louder than talking or can be heard through closed doors)? 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 Specify any problems Hx of Preganancy in last 3 N/A 12/25/24 10:54 Months Nurse Filling Out Transfusion MGRIFFITH 12/25/24 10:54 & Questions: Date: 12/25/24 12/25/24 10:54 Time: 10:58 12/25/24 10:54 Patient unable to answer at this time (ie. confused, unrespo /Reproduction History /Reproductive History - rn peritoneal dialysis: /Reproductive Hx- rn peritoneal dialysis Hx Now Gestational Age (in weeks): EDC: Hx Hx Para Hx Section SAB No 07/16/24 10:49 [facility] Medical History (Updated 12/25/24 @ 11:08 by Avelina Campos) Wears hearing aid Arthritis Easy bruising On home oxygen therapy CPAP (continuous positive airway pressure) dependence Sleep apnea History of Holter monitoring Acute and chronic respiratory failure with hypoxia History of echocardiogram Injury of back History of hiatal hernia Shortness of breath on exertion Former smoker Leg cramps Cardiology follow-up encounter Pulmonary emphysema Hyperlipidemia Colon polyps Barretts esophagus Scabies Atrial fibrillation and flutter Osteoporosis Essential hypertension History of DVT (deep vein thrombosis) Paroxysmal atrial tachycardia Paroxysmal atrial fibrillation GERD (gastroesophageal reflux disease) Gout Type 2 diabetes mellitus Hypertension Tachycardia [facility] (current) use of anticoagulants Near syncope Bradycardia Tobacco dependence Afib Home Medications ?Medication ?Instructions ?Recorded ?Last Taken ?Type denosumab 60 mg/mL subcutaneous 60 mg subcut [id number] osteoperosis 11/29/23 Unknown Rx syringe (Prolia) #1 mL omega-3 fatty acids 1,000 mg 1,000 mg PO DAILY supplem ent 02/28/24 04/07/24 History capsule allopurinol 300 mg tablet 300 mg PO DAILY gout 4 07/17/24 History cholecalciferol (vitamin D3) 50 50 mcg PO QDAY 5 Unknown History mcg (2,000 unit) capsule dofetilide 500 mcg capsule 500 mcg PO BID heart #180 caps 08/18/24 Unknown Rx furosemide 40 mg tablet 40 mg PO DAILY edema #90 tab s 08/18/24 Unknown Rx potassium chloride 10 mEq 10 meq PO DAILY supplement #90 08/18/24 Unknown Rx tablet,extended release(part/cryst) tabs albuterol sulfate 90 mcg/actuation 2 puff inhalation Q 6H PRN 10/15/24 Unknown Rx aerosol inhaler shortness of breath or wheez ing #8.5 grams guaifenesin 1,200 mg tablet, 1,200 mg PO Q12H cough #6 0 tabs 10/15/24 Unknown Rx extended release 12 hr ipratropium 0.5 mg-albuterol 3 mg 3 ml inhalation TID PRN shortness 10/15/24 Unknown Rx (2.5 mg base)/3 mL nebulization of breath or wheezing #180 mL soln warfarin 4 mg tablet 4 mg PO QDAY #90 tabs Unknown Rx fluticasone fur. 100 mcg-umeclid 1 inh inhalation Q24H #60 ea 11/21/24 Unknown Rx 62.5 mcg-vilant 25 mcg inhalat.powder (Trelegy Ellipta) pantoprazole 40 mg tablet,delayed 40 mg PO BID gerd # 60 tabs 12/12/24 Unknown Rx release diltiazem HCl 240 mg 240 mg PO BID 12/25/24 Unkno wn History capsule,extended release 24 hr ipratropium 0.5 mg-albuterol 3 mg 3 ml inhalation BID 12/25/24 Unknown History (2.5 mg base)/3 mL nebulization soln Allergy/AdvReac Type Severity Reaction Status Date / Time secobarbital sodium (From Allergy Unknown Verified 12/25/24 10:44 [place]) venom-honey bee (bee venom Allergy Anaphylaxis Verified 12/25/24 10:44 (honey bee)) Family History Mother Diabetes Hypertension Myocardial infarction CAD (coronary artery disease) Father Hypertension Heart disease Diabetes Myocardial infarction CAD (coronary artery disease) Surgical History History of esophagogastroduodenoscopy (EGD) History of hip replacement Status post peripheral artery angioplasty History of left hip replacement History of cardiac radiofrequency ablation (~04/2008) Social History household members: other details: His mother lives with him. Smoking Status: Former smoker Tobacco: How many years used: 50 how long ago did patient quit smokin alcohol intake: current alcohol intake frequency: a few times a month Alcohol type: beer substance use type: does not use caffeine: No Audit: Pertinent Findings Pertinent Findings EKG Perinent findings: EKG 11/2024: A fib with RVR, but on telemetry in office later this month, was found to be in NSR, Echo (EF%) pertinent findings: 03/2024: EF 60%, mild focal aortic valve thickening, pulmonary artery systolic pressure 42 mmHg Recommendation Anesthesia Recommendation Anesthesia recommendation: F/U recommended (Cardiology clearance required as patient is bouncing between Afib and NSR it seems. )
--- NOTE | 2024-12-26 13:50 | PAT.ANE_ITS ---
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 When Was Last Pacemaker Check QUESTION #4 FULL TEXT: You/Your Family Experience fever (hyperthermia) with Anesthesia Last Oral Intake Last Oral intake: Last Oral Intake NPO since Meds taken in AM with sips of water? Meds patient instructed to take am of surgery PONV PONV - powdered sugar supervisor: PONV - powdered sugar supervisor Female No 12/25/24 10:54 HX of Motion Sickness No 12/25/24 10:54 HX of N/V After Surgery No 12/25/24 10:54 Non-Smoker Yes 12/25/24 10:54 Duration of Surgery greater No 12/25/24 10:54 than 60 minutes Number of Risk Factors 1 12/25/24 10:54 PONV Score Low Risk 12/25/24 10:54 Height & Weight Height & Weight: Anesthesia: Height & Weight Height 5 ft 9 in 08/01/24 10:41 Respiratory Assessment Respiratory Assessment - powdered sugar supervisor: Respiratory Tract Infection Hx - powdered sugar supervisor Hx Respiratory Tract Infection No 12/25/24 10:54 STOP Sleep Apnea STOP Sleep Apnea - powdered sugar supervisor: STOP Sleep Apnea - powdered sugar supervisor Hx Hypertension Yes: CONTROLLED WITH MEDS 12/25/24 10:54 Hx Sleep Apnea Yes 12/25/24 10:54 CPAP Yes 12/25/24 10:54 BIPAP No 12/25/24 10:54 Do you snore loudly (louder than talking or can be heard Do you often feel tired/ fatigued/ sleepy during daytime? Has anyone observed you stop breathing during sleep? STOP Results Positive 12/25/24 10:54 QUESTION #5 FULL TEXT : Do you snore loudly (louder than talking or can be heard through closed doors)? 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 Specify any problems Hx of Preganancy in last 3 N/A 12/25/24 10:54 Months Nurse Filling Out Transfusion MGRIFFITH 12/25/24 10:54 & Questions: Date: 12/25/24 12/25/24 10:54 Time: 10:58 12/25/24 10:54 Patient unable to answer at this time (ie. confused, unrespo /Reproduction History /Reproductive History - powdered sugar supervisor: /Reproductive Hx- powdered sugar supervisor Hx Now Gestational Age (in weeks): EDC: Hx Hx Para Hx Section SAB No 07/16/24 10:49 [facility] Medical History (Updated 12/25/24 @ 11:08 by Avelina Campos) Wears hearing aid Arthritis Easy bruising On home oxygen therapy CPAP (continuous positive airway pressure) dependence Sleep apnea History of Holter monitoring Acute and chronic respiratory failure with hypoxia History of echocardiogram Injury of back History of hiatal hernia Shortness of breath on exertion Former smoker Leg cramps Cardiology follow-up encounter Pulmonary emphysema Hyperlipidemia Colon polyps Barretts esophagus Scabies Atrial fibrillation and flutter Osteoporosis Essential hypertension History of DVT (deep vein thrombosis) Paroxysmal atrial tachycardia Paroxysmal atrial fibrillation GERD (gastroesophageal reflux disease) Gout Type 2 diabetes mellitus Hypertension Tachycardia penitentiary (current) use of anticoagulants Near syncope Bradycardia Tobacco dependence Afib Home Medications ?Medication ?Instructions ?Recorded ?Last Taken ?Type denosumab 60 mg/mL subcutaneous 60 mg subcut [id number] osteoperosis 11/29/23 Unknown Rx syringe (Prolia) #1 mL omega-3 fatty acids 1,000 mg 1,000 mg PO DAILY supplem ent 02/28/24 04/07/24 History capsule allopurinol 300 mg tablet 300 mg PO DAILY gout 4 07/17/24 History cholecalciferol (vitamin D3) 50 50 mcg PO QDAY 5 Unknown History mcg (2,000 unit) capsule dofetilide 500 mcg capsule 500 mcg PO BID heart #180 caps 08/18/24 Unknown Rx furosemide 40 mg tablet 40 mg PO DAILY edema #90 tab s 08/18/24 Unknown Rx potassium chloride 10 mEq 10 meq PO DAILY supplement #90 08/18/24 Unknown Rx tablet,extended release(part/cryst) tabs albuterol sulfate 90 mcg/actuation 2 puff inhalation Q 6H PRN 10/15/24 Unknown Rx aerosol inhaler shortness of breath or wheez ing #8.5 grams guaifenesin 1,200 mg tablet, 1,200 mg PO Q12H cough #6 0 tabs 10/15/24 Unknown Rx extended release 12 hr ipratropium 0.5 mg-albuterol 3 mg 3 ml inhalation TID PRN shortness 10/15/24 Unknown Rx (2.5 mg base)/3 mL nebulization of breath or wheezing #180 mL soln warfarin 4 mg tablet 4 mg PO QDAY #90 tabs Unknown Rx fluticasone fur. 100 mcg-umeclid 1 inh inhalation Q24H #60 ea 11/21/24 Unknown Rx 62.5 mcg-vilant 25 mcg inhalat.powder (Trelegy Ellipta) pantoprazole 40 mg tablet,delayed 40 mg PO BID gerd # 60 tabs 12/12/24 Unknown Rx release diltiazem HCl 240 mg 240 mg PO QAM 12/25/24 Unkno wn History capsule,extended release 24 hr ipratropium 0.5 mg-albuterol 3 mg 3 ml inhalation BID 12/25/24 Unknown History (2.5 mg base)/3 mL nebulization soln Allergy/AdvReac Type Severity Reaction Status Date / Time secobarbital sodium (From Allergy Unknown Verified 12/25/24 10:44 [place]) venom-honey bee (bee venom Allergy Anaphylaxis Verified 12/25/24 10:44 (honey bee)) Family History Mother Diabetes Hypertension Myocardial infarction CAD (coronary artery disease) Father Hypertension Heart disease Diabetes Myocardial infarction CAD (coronary artery disease) Surgical History History of esophagogastroduodenoscopy (EGD) History of hip replacement Status post peripheral artery angioplasty History of left hip replacement History of cardiac radiofrequency ablation (~04/2008) Social History household members: other details: His mother lives with him. Smoking Status: Former smoker Tobacco: How many years used: 50 how long ago did patient quit smokin alcohol intake: current alcohol intake frequency: a few times a month Alcohol type: beer substance use type: does not use caffeine: No Audit: Pertinent Findings HISTORY of Pertinent Findings History of Pertinent Findings: EKG Pertinent Findings EKG Perinent findings EKG 11/2024: A fib with RVR, 12/25/24 14:46 but on telemetry in office later this month, was found to be in NSR, Echo Pertinent Findings Echo (EF%) pertinent findings 03/2024: EF 60%, mild focal 12/25/24 14:46 aortic valve thickening, pulmonary artery systolic pressure 42 mmHg Pertinent Findings Consult pertinent findings: 12/09/2024. Paul PAC. 1. Atrial fibrillation/flutter-will obtain 48-hour Holter to check occurrence and rate. 2. Patient on Coumadin-latest INR is 3.4. Change Coumadin dosing to 4 mg a day and recheck INR in 1 week. Recommendation Anesthesia Recommendation Anesthesia recommendation: F/U recommended (Cardiology consult basically asked for a Holter monitor to be done. I do not see the results of that Holter monitor.)
--- NOTE | 2024-12-29 08:52 | PAT.ANESEVAL ---
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 When Was Last Pacemaker Check QUESTION #4 FULL TEXT: You/Your Family Experience fever (hyperthermia) with Anesthesia Last Oral Intake Last Oral intake: Last Oral Intake NPO since Meds taken in AM with sips of water? Meds patient instructed to take am of surgery PONV PONV - air intelligence specialist: PONV - air intelligence specialist Female No 12/25/24 10:54 HX of Motion Sickness No 12/25/24 10:54 HX of N/V After Surgery No 12/25/24 10:54 Non-Smoker Yes 12/25/24 10:54 Duration of Surgery greater No 12/25/24 10:54 than 60 minutes Number of Risk Factors 1 12/25/24 10:54 PONV Score Low Risk 12/25/24 10:54 Height & Weight Height & Weight: Anesthesia: Height & Weight Height 5 ft 9 in 08/01/24 10:41 Respiratory Assessment Respiratory Assessment - air intelligence specialist: Respiratory Tract Infection Hx - air intelligence specialist Hx Respiratory Tract Infection No 12/25/24 10:54 STOP Sleep Apnea STOP Sleep Apnea - air intelligence specialist: STOP Sleep Apnea - air intelligence specialist Hx Hypertension Yes: CONTROLLED WITH MEDS 12/25/24 10:54 Hx Sleep Apnea Yes 12/25/24 10:54 CPAP Yes 12/25/24 10:54 BIPAP No 12/25/24 10:54 Do you snore loudly (louder than talking or can be heard Do you often feel tired/ fatigued/ sleepy during daytime? Has anyone observed you stop breathing during sleep? STOP Results Positive 12/25/24 10:54 QUESTION #5 FULL TEXT : Do you snore loudly (louder than talking or can be heard through closed doors)? 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 Specify any problems Hx of Preganancy in last 3 N/A 12/25/24 10:54 Months Nurse Filling Out Transfusion MGRIFFITH 12/25/24 10:54 & Questions: Date: 12/25/24 12/25/24 10:54 Time: 10:58 12/25/24 10:54 Patient unable to answer at this time (ie. 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 specialist Hx Now Gestational Age (in weeks): EDC: Hx Hx Para Hx Section SAB No 07/16/24 10:49 [facility] Medical History (Updated 12/25/24 @ 11:08 by Avelina Campos) Wears hearing aid Arthritis Easy bruising On home oxygen therapy CPAP (continuous positive airway pressure) dependence Sleep apnea History of Holter monitoring Acute and chronic respiratory failure with hypoxia History of echocardiogram Injury of back History of hiatal hernia Shortness of breath on exertion Former smoker Leg cramps Cardiology follow-up encounter Pulmonary emphysema Hyperlipidemia Colon polyps Barretts esophagus Scabies Atrial fibrillation and flutter Osteoporosis Essential hypertension History of DVT (deep vein thrombosis) Paroxysmal atrial tachycardia Paroxysmal atrial fibrillation GERD (gastroesophageal reflux disease) Gout Type 2 diabetes mellitus Hypertension Tachycardia snf (current) use of anticoagulants Near syncope Bradycardia Tobacco dependence Afib Home Medications ?Medication ?Instructions ?Recorded ?Last Taken ?Type denosumab 60 mg/mL subcutaneous 60 mg subcut [id number] osteoperosis 11/29/23 Unknown Rx syringe (Prolia) #1 mL omega-3 fatty acids 1,000 mg 1,000 mg PO DAILY supplement 02/28/24 04/07/24 History capsule allopurinol 300 mg tablet 300 mg PO DAILY gout 04/07/24 07/17/24 History cholecalciferol (vitamin D3) 50 50 mcg PO QDAY 08/18/24 Unknown History mcg (2,000 unit) capsule dofetilide 500 mcg capsule 500 mcg PO BID heart #180 caps 08/18/24 Unknown Rx furosemide 40 mg tablet 40 mg PO DAILY edema #90 tabs 08/18/24 Unknown Rx potassium chloride 10 mEq 10 meq PO DAILY supplement #90 08/18/24 Unknown Rx tablet,extended release(part/cryst) tabs albuterol sulfate 90 mcg/actuation 2 puff inhalation Q6H PRN 10/15/24 Unknown Rx aerosol inhaler shortness of breath or wheezing #8.5 grams guaifenesin 1,200 mg tablet, 1,200 mg PO Q12H cough #60 tabs 10/15/24 Unknown Rx extended release 12 hr ipratropium 0.5 mg-albuterol 3 mg 3 ml inhalation TID PRN shortness 10/15/24 Unknown Rx (2.5 mg base)/3 mL nebulization of breath or wheezing #180 mL soln warfarin 4 mg tablet 4 mg PO QDAY #90 tabs 11/13/24 Unknown Rx fluticasone fur. 100 mcg-umeclid 1 inh inhalation Q24H #60 ea 11/21/24 Unknown Rx 62.5 mcg-vilant 25 mcg inhalat.powder (Trelegy Ellipta) pantoprazole 40 mg tablet,delayed 40 mg PO BID gerd #60 tabs 12/12/24 Unknown Rx release ipratropium 0.5 mg-albuterol 3 mg 3 ml inhalation BID 12/25/24 Unknown History (2.5 mg base)/3 mL nebulization soln diltiazem HCl 240 mg 240 mg PO BID 12/26/24 Unknown History capsule,extended release 24 hr Allergy/AdvReac Type Severity Reaction Status Date / Time secobarbital sodium (From Allergy Unknown Verified 12/25/24 10:44 [place]) venom-honey bee (bee venom Allergy Anaphylaxis Verified 12/25/24 10:44 (honey bee)) Family History Mother Diabetes Hypertension Myocardial infarction CAD (coronary artery disease) Father Hypertension Heart disease Diabetes Myocardial infarction CAD (coronary artery disease) Surgical History History of esophagogastroduodenoscopy (EGD) History of hip replacement Status post peripheral artery angioplasty History of left hip replacement History of cardiac radiofrequency ablation (~04/2008) Social History household members: other details: His mother lives with him. Smoking Status: Former smoker Tobacco: How many years used: 50 how long ago did patient quit smokin alcohol intake: current alcohol intake frequency: a few times a month Alcohol type: beer substance use type: does not use caffeine: No Audit: Pertinent Findings HISTORY of Pertinent Findings History of Pertinent Findings: EKG Pertinent Findings EKG Perinent findings EKG 11/2024: A fib with RVR, 12/25/24 14:46 but on telemetry in office later this month, was found to be in NSR, Echo Pertinent Findings Echo (EF%) pertinent findings 03/2024: EF 60%, mild focal 12/25/24 14:46 aortic valve thickening, pulmonary artery systolic pressure 42 mmHg Consult Pertinent Findings Consult pertinent findings 12/09/2024. Paul PAC. 12/26/24 14:01 1. Atrial fibrillation/ flutter-will obtain 48-hour Holter to check occurrence and rate. 2. Patient on Coumadin- latest INR is 3.4. Change Coumadin dosing to 4 mg a day and recheck INR in 1 week. Pertinent Findings Additional pertinent findings: Holter monitoring report: NSR with 1st degree AV block with rare PVCs/PACs and markedly prolonged [place] interval Recommendation Anesthesia Recommendation Anesthesia recommendation: OPTIMIZED for anesthesia
[2024-12-30] VITALS (8 sets, daily range): BP systolic 90–134; BP diastolic 56–93; PULSE 14–84; RESP 14–18; TEMP 36.1–36.5; O2SAT 90–97; BMI 25.9
[2024-12-30 11:04] LABS: INR Fingerstick 1.1; Prothrombin Time Fingerstick 13.1 SEC (11.7-14.9)
[2024-12-30] MEDS: Lactated Ringers 1,000 ML 15 ML IV (11:27)
--- NOTE | 2024-12-30 11:42 | PCM.PRE.AN2 ---
ASA Classification* ASA Classification ASA Classification: 3 Assessment & Plan Anesthesia* Anesthesia Assessment Anesthesia Assessment: Discussed sedation and/or anesthesia options, risks, benefits, and alternatives with patient/parents/legal guardian/POA. Questions invited. The patient/parents/legal guardian/POA seems to understand and agrees to proceed with anesthesia plan. Reviewed the physical assessment, medical history, allergy history and patient home medications list prior to surgery/procedure/anesthetic and documented any changes. Performed airway and anesthesia risk assessments. Anesthesia Type Anesthesia Type: MAC History Source History Obtained from:: Patient and Chart Anesthesia Focused Assessment* Temperature: 97.7 F Pulse Rate: 84 Blood Pressure: 118/86 Respiratory Rate: 16 Pulse Ox: 96 Oxygen Delivery Method: Room Air Airway Assessment Mouth opens: >3 cm Mallampati Score: I Teeth Condition: Missing (Patient is missing 1 bottom teeth. Rest are tight.) Neck Range of motion (ROM): Full ROM Focused Labs Anesthesia Preop lab: CBC WBC 9.8 K/mm3 (4.4-11.0) 11/25/24 16:47 11/25/24 RBC 4.82 M/mm3 (4.6-6.2) 11/25/24 16:47 11/25/24 Hgb 14.2 g/dL (13.0-16.5) 11/25/24 16:47 11/25/24 Hct 42.6 % (40-54) 11/25/24 16:47 11/25/24 Plt Count 302 K/mm3 (150-450) 11/25/24 16:47 11/25/24 CHEMISTRY Potassium 4.1 mmol/L (3.3-5.1) 12/16/24 06:35 12/16/24 Sodium 134 mmol/L (133-145) 12/16/24 06:35 12/16/24 Magnesium 2.6 mg/dL (1.6-2.6) 05/30/24 07:15 05/30/24 Phosphorus 2.3 mg/dL (2.5-4.9) L 05/11/24 06:35 05/11/24 BUN 13 mg/dL (4-19) 12/16/24 06:35 12/16/24 Creatinine 1.15 mg/dL (0.70-1.20) 12/16/24 06:35 12/16/24 Glucose 94 mg/dL (70-99) 12/16/24 06:35 12/16/24 POC Glucose 92 mg/dL (74-106) 07/17/24 09:33 07/17/24 TSH 2.45 uIU/mL (0.358-3.74) 05/22/19 09:00 05/22/19 COAG PT 25.3 SECONDS (11.7-14.9) H 12/16/24 06:35 12/16/24 INR 2.0 12/06/23 10:48 12/06/23 Pre-Assessment Diagnosis/Proposed Procedure Planned Operative Procedure(s): EGD Anesthesia History 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 When Was Last Pacemaker Check QUESTION #4 FULL TEXT: You/Your Family Experience fever (hyperthermia) with Anesthesia Last Oral Intake Last Oral intake: Last Oral Intake NPO since 23:00 12/30/24 11:20 Meds taken in AM with sips of Yes 12/30/24 11:20 water? Meds patient instructed to take am of surgery Any additional information?: Yes Meds taken in AM with sips of water?: Yes PONV PONV - electroplating worker: PONV - electroplating worker Female No 12/25/24 10:54 HX of Motion Sickness No 12/25/24 10:54 HX of N/V After Surgery No 12/25/24 10:54 Non-Smoker Yes 12/25/24 10:54 Duration of Surgery greater No 12/25/24 10:54 than 60 minutes Number of Risk Factors 1 12/25/24 10:54 PONV Score Low Risk 12/25/24 10:54 Height & Weight Height & Weight: Anesthesia: Height & Weight Height 5 ft 7 in 12/30/24 11:20 Weight: 75 kg 12/30/24 11:20 Body Mass Index (BMI) 25.9 12/30/24 11:20 Respiratory Assessment Respiratory Assessment - electroplating worker: Respiratory Tract Infection Hx - electroplating worker Hx Respiratory Tract Infection No 12/25/24 10:54 STOP Sleep Apnea STOP Sleep Apnea - electroplating worker: STOP Sleep Apnea - electroplating worker Hx Hypertension Yes: CONTROLLED WITH MEDS 12/25/24 10:54 Hx Sleep Apnea Yes 12/25/24 10:54 CPAP No 12/28/24 21:34 BIPAP No 12/25/24 10:54 Do you snore loudly (louder than talking or can be heard Do you often feel tired/ fatigued/ sleepy during daytime? Has anyone observed you stop breathing during sleep? STOP Results Positive 12/25/24 10:54 QUESTION #5 FULL TEXT : Do you snore loudly (louder than talking or can be heard through closed doors)? 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 Specify any problems Hx of Preganancy in last 3 N/A 12/25/24 10:54 Months Nurse Filling Out Transfusion MGRIFFITH 12/25/24 10:54 & Questions: Date: 12/25/24 12/25/24 10:54 Time: 10:58 12/25/24 10:54 Patient unable to answer at this time (ie. confused, unrespo /Reproduction History /Reproductive History - electroplating worker: /Reproductive Hx- electroplating worker Hx Now Gestational Age (in weeks): EDC: Hx Hx Para Hx Section SAB No 07/16/24 10:49 Active Medications Active Medications: Current Medications Generic Name Dose Route Start Last Admin Trade Name Freq PRN Reason Stop Dose Admin Lactated Ringer's 1,000 mls @ 15 mls/hr 12/30/24 11:15 12/30/24 11:27 IV 15 mls/hr .Q48H LOY Administration PFSH Medical History Wears hearing aid Arthritis Easy bruising On home oxygen therapy CPAP (continuous positive airway pressure) dependence Sleep apnea History of Holter monitoring Acute and chronic respiratory failure with hypoxia History of echocardiogram Injury of back History of hiatal hernia Shortness of breath on exertion Former smoker Leg cramps Cardiology follow-up encounter Pulmonary emphysema Hyperlipidemia Colon polyps Barretts esophagus Scabies Atrial fibrillation and flutter Osteoporosis Essential hypertension History of DVT (deep vein thrombosis) Paroxysmal atrial tachycardia Paroxysmal atrial fibrillation GERD (gastroesophageal reflux disease) Gout Type 2 diabetes mellitus Hypertension Tachycardia [facility] (current) use of anticoagulants Near syncope Bradycardia Tobacco dependence Afib Home Medications ?Medication ?Instructions ?Recorded ?Last Taken ?Type denosumab 60 mg/mL subcutaneous 60 mg subcut [id number] osteoperosis 11/29/23 Unknown Rx syringe (Prolia) #1 mL omega-3 fatty acids 1,000 mg 1,000 mg PO DAILY supplement 02/28/24 12/27/24 History capsule allopurinol 300 mg tablet 300 mg PO DAILY gout 04/07/24 07/17/24 History cholecalciferol (vitamin D3) 50 50 mcg PO QDAY 08/18/24 Unknown History mcg (2,000 unit) capsule dofetilide 500 mcg capsule 500 mcg PO BID heart #180 caps 08/18/24 Unknown Rx furosemide 40 mg tablet 40 mg PO DAILY edema #90 tabs 08/18/24 Unknown Rx potassium chloride 10 mEq 10 meq PO DAILY supplement #90 08/18/24 Unknown Rx tablet,extended release(part/cryst) tabs albuterol sulfate 90 mcg/actuation 2 puff inhalation Q6H PRN 10/15/24 Unknown Rx aerosol inhaler shortness of breath or wheezing #8.5 grams guaifenesin 1,200 mg tablet, 1,200 mg PO Q12H cough #60 tabs 10/15/24 Unknown Rx extended release 12 hr ipratropium 0.5 mg-albuterol 3 mg 3 ml inhalation TID PRN shortness 10/15/24 Unknown Rx (2.5 mg base)/3 mL nebulization of breath or wheezing #180 mL soln warfarin 4 mg tablet 4 mg PO QDAY #90 tabs 11/13/24 12/23/24 Rx fluticasone fur. 100 mcg-umeclid 1 inh inhalation Q24H #60 ea 11/21/24 Unknown Rx 62.5 mcg-vilant 25 mcg inhalat.powder (Trelegy Ellipta) pantoprazole 40 mg tablet,delayed 40 mg PO BID gerd #60 tabs 12/12/24 12/30/24 01:30 Rx release ipratropium 0.5 mg-albuterol 3 mg 3 ml inhalation BID 12/25/24 Unknown History (2.5 mg base)/3 mL nebulization soln diltiazem HCl 240 mg 240 mg PO BID 12/26/24 12/30/24 01:30 History capsule,extended release 24 hr Allergy/AdvReac Type Severity Reaction Status Date / Time secobarbital sodium (From Allergy Unknown Verified 12/30/24 11:18 [place]) venom-honey bee (bee venom Allergy Anaphylaxis Verified 12/30/24 11:18 (honey bee)) Family History Mother Diabetes Hypertension Myocardial infarction CAD (coronary artery disease) Father Hypertension Heart disease Diabetes Myocardial infarction CAD (coronary artery disease) Surgical History History of esophagogastroduodenoscopy (EGD) History of hip replacement Status post peripheral artery angioplasty History of left hip replacement History of cardiac radiofrequency ablation (~04/2008) Social History household members: other details: His mother lives with him. Smoking Status: Former smoker Tobacco: How many years used: 50 how long ago did patient quit smokin alcohol intake: current alcohol intake frequency: a few times a month Alcohol type: beer substance use type: does not use caffeine: No Review of Systems (Anesthesia) ROS Narrative System reviewed and no additional complaints, except as documented.
--- NOTE | 2024-12-30 11:46 | PCM.HP.STD ---
HPI - General General Date of Admission: 12/30/24 Date of Service: 12/30/24 Chief Complaint: Robin's esophagus HPI Narrative ENRIQUE MCNALLY, is a 69 M who presentsChief Complaint: Vergara's esophagus with low-grade dysplasia *BGI established 05.02.22 without GI complaints. History of colonic polyps, large hiatal hernia and Vergara?s esophagus.?EGD and colonoscopy 06.28.22?EGD long-segment Vergara?s esophagus; medium hiatal hernia; prominent gastric folds.? Colonoscopy diverticulosis.? OV 07.12.22 continues to do well.?Continue PPI therapy.? OV 01.10.23 recent onset of LLQ>RLQ abdominal discomfort causing nocturnal night sweats. ?CT abd/pel 01.18.23?emphysema changes with granuloma and lung nodule; renal cysts; diverticulosis; umbilical hernia; multiple compression fractures of spine? Contact 02.02.23 reporting he is doing much better than previously. Proceed with EGD and f/u as scheduled.?EGD 07.10.23?long-segment Vergara?s mucosal changes, metaplasia +; medium hiatal hernia; diffusely friable mucosa of entire stomach.? OV 07.24.23- Pt is doing well since last visit. Has not had any heartburn, dysphagia, nausea or abdominal pain. BM are normal. Has no other concerns. [facility] 1 presents with R foot pain EGD 08.15.23 Esophageal mucosal changes secondary to established long-segment Vergara's disease. Treated with radiofrequency ablation. Medium-sized hiatal hernia. No gross lesions in the duodenal bulb. No specimens collected. EGD 09.18.23 Esophageal mucosal changes secondary to established long-segment Vergara's disease. Treated with radiofrequency ablation. Hiatal hernia. Normal second portion of the duodenum. No specimens collected. EGD 10.16.23 Esophageal mucosal changes secondary to established long-segment Vergara's disease. Biopsied. Treated with radiofrequency ablation. Medium-sized hiatal hernia. No gross lesions in the duodenal bulb. Esophageal plaques were found, consistent with candidiasis. EGD 11.20.23 Moderate Schatzki ring. Dilated. Esophageal mucosal changes secondary to established short-segment Vergara's disease. Biopsied. Hiatal hernia. The examination was otherwise normal. No gross lesions in the duodenal bulb. OV 12.31.23 pt reports that he is doing well overall with no GI symptoms of concern at this time. Continues with pantoprazole and sucralfate. [facility] 04.20.24 - 04.23.24 SOB - consulted for hematemesis EGD 04.21.24 Normal esophagus. Vergara's esophagus. Medium-sized hiatal hernia. Chronic gastritis. No gross lesions in the duodenal bulb. No specimens collected. OV 05.30.24 pt reports that he is feeling well overall and denies GI symptoms of concern at this time. Discussed his EGD and colonoscopy findings, focusing on Vergara's and the increased risk for esophageal cancer. Not taking omeprazole, prescribed pantoprazole 40 mg QAM to be taken indefinitely. We will repeat EGD in one yr for long segment Vergara's. 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 Repeat colonoscopy 5 yrs. f/u 6 months. EGD scheduled 07.17.24. OV 07.01.24 Denies GI concerns at this time. Continues pantoprazole. [facility] Medical History Wears hearing aid Arthritis Easy bruising On home oxygen therapy CPAP (continuous positive airway pressure) dependence Sleep apnea History of Holter monitoring Acute and chronic respiratory failure with hypoxia History of echocardiogram Injury of back History of hiatal hernia Shortness of breath on exertion Former smoker Leg cramps Cardiology follow-up encounter Pulmonary emphysema Hyperlipidemia Colon polyps Barretts esophagus Scabies Atrial fibrillation and flutter Osteoporosis Essential hypertension History of DVT (deep vein thrombosis) Paroxysmal atrial tachycardia Paroxysmal atrial fibrillation GERD (gastroesophageal reflux disease) Gout Type 2 diabetes mellitus Hypertension Tachycardia half-way (current) use of anticoagulants Near syncope Bradycardia Tobacco dependence Afib Home Medications ?Medication ?Instructions ?Recorded ?Last Taken ?Type denosumab 60 mg/mL subcutaneous 60 mg subcut [id number] osteoperosis 11/29/23 Unknown Rx syringe (Prolia) #1 mL omega-3 fatty acids 1,000 mg 1,000 mg PO DAILY supplement 02/28/24 12/27/24 History capsule allopurinol 300 mg tablet 300 mg PO DAILY gout 04/07/24 07/17/24 History cholecalciferol (vitamin D3) 50 50 mcg PO QDAY 08/18/24 Unknown History mcg (2,000 unit) capsule dofetilide 500 mcg capsule 500 mcg PO BID heart #180 caps 08/18/24 Unknown Rx furosemide 40 mg tablet 40 mg PO DAILY edema #90 tabs 08/18/24 Unknown Rx potassium chloride 10 mEq 10 meq PO DAILY supplement #90 08/18/24 Unknown Rx tablet,extended release(part/cryst) tabs albuterol sulfate 90 mcg/actuation 2 puff inhalation Q6H PRN 10/15/24 Unknown Rx aerosol inhaler shortness of breath or wheezing #8.5 grams guaifenesin 1,200 mg tablet, 1,200 mg PO Q12H cough #60 tabs 10/15/24 Unknown Rx extended release 12 hr ipratropium 0.5 mg-albuterol 3 mg 3 ml inhalation TID PRN shortness 10/15/24 Unknown Rx (2.5 mg base)/3 mL nebulization of breath or wheezing #180 mL soln warfarin 4 mg tablet 4 mg PO QDAY #90 tabs 11/13/24 12/23/24 Rx fluticasone fur. 100 mcg-umeclid 1 inh inhalation Q24H #60 ea 11/21/24 Unknown Rx 62.5 mcg-vilant 25 mcg inhalat.powder (Trelegy Ellipta) pantoprazole 40 mg tablet,delayed 40 mg PO BID gerd #60 tabs 12/12/24 12/30/24 01:30 Rx release ipratropium 0.5 mg-albuterol 3 mg 3 ml inhalation BID 12/25/24 Unknown History (2.5 mg base)/3 mL nebulization soln diltiazem HCl 240 mg 240 mg PO BID 12/26/24 12/30/24 01:30 History capsule,extended release 24 hr Allergy/AdvReac Type Severity Reaction Status Date / Time secobarbital sodium (From Allergy Unknown Verified 12/30/24 11:18 [place]) venom-honey bee (bee venom Allergy Anaphylaxis Verified 12/30/24 11:18 (honey bee)) Family History Mother Diabetes Hypertension Myocardial infarction CAD (coronary artery disease) Father Hypertension Heart disease Diabetes Myocardial infarction CAD (coronary artery disease) Surgical History History of esophagogastroduodenoscopy (EGD) History of hip replacement Status post peripheral artery angioplasty History of left hip replacement History of cardiac radiofrequency ablation (~04/2008) Social History household members: other details: His mother lives with him. Smoking Status: Former smoker Tobacco: How many years used: 50 how long ago did patient quit smokin alcohol intake: current alcohol intake frequency: a few times a month Alcohol type: beer substance use type: does not use caffeine: No ROS Constitutional Constitutional: Denies fatigue, fever(s), poor appetite, weight gain or weight loss Gastrointestinal Gastrointestinal: Denies belching, bloating, change in bowel habits, change in stool character, chewing difficulty, coffee ground emesis, constipation, cramping, diarrhea, dyspepsia, dysphagia, early satiety, excessive flatus, fecal incontinence, heartburn, hematemesis, hematochezia, hemorrhoids, loose stools, melena, nausea, odynophagia, rectal bleeding, tenesmus, vomiting or weight changes Vital Signs Vital Signs Vital Signs: 12/30/24 11:20 12/30/24 11:20 Temperature 97.7 F L Temperature Source Temporal Pulse Rate 84 Respiratory Rate 16 Respiratory Pattern Normal Blood Pressure 118/86 H Blood Pressure Mean 96 Blood Pressure Source Monitor Blood Pressure Position Sitting Blood Pressure Location Right Arm Pulse Ox 96 Oxygen Delivery Method Room Air Weight Weight: 165 lb 5.547 oz Body Mass Index (BMI) 25.9 Physical Exam Const alert, oriented x3, no apparent distress and healthy appearing General Appearance: cooperative GI normal to inspection, nondistended, normoactive bowel sounds, soft to palpation, non-tender and non-distended Percussion: normal to percussion Rectal Exam: deferred Results Lab / Micro Data Labs: Laboratory Results - last 24 hr 12/30/24 11:01: POC PT 13.1, INR 1.1 Assessment & Plan Assessment/Plan (1) Barretts esophagus: QUALIFIERS: Vergara's esophagus type: without dysplasia Qualified Code(s): K22.70 - Vergara's esophagus without dysplasia PLAN: Assessment & Plan Assessment/Plan (1) Barretts esophagus: QUALIFIERS: Vergara's esophagus type: without dysplasia Qualified Code(s): K22.70 - Vergara's esophagus without dysplasia PLAN: (1) Barretts esophagus: Status: Chronic Qualifiers: Vergara's esophagus type: without dysplasia Qualified Code(s): K22.70 - Vergara's esophagus without dysplasia Comment: ON PROTONIX Plan: We discussed his EGD and colonoscopy findings, focusing on Vergara's and the increased risk for esophageal cancer. I thought he was on omeprazole but apparently he wasn't, so I rx'd pantoprazole 40 mg QAM to be taken indefinitely. We will repeat EGD in one yr for long segment Vergara's. 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 Repeat colonoscopy 5 yrs. f/u 6 months.
[2024-12-30 11:47] LABS: Bedside Glucose 91 mg/dL (74-106)
--- NOTE | 2024-12-30 12:00 | EGD_PTH ---
PATIENT: ENRIQUE MCNALLY III LOC: EN U#:[id number] AGE/SX: 69/M ROOM: RE12/30/[address]: Dr. Pablo Pichardo DO : 1955 BED: DIS: 12/30/2024 SPEC #: [id number] RECD: 12/30/24 14:45 STATUS: LUKE JAMEEL #: [id number] DERRICK: 12/30/24 12:[address]: Pablo Pichardo DEPT: SURGICAL PATHOLOGY RECD BY: Sergio Wiggins ENTERED: 12/30/24 15:10 SP TYPE: EGD BIOPSY OT DR: Adriel Pike MD Tissues: A - Esophagus, NOS Procedures: Surgery Specimen Level IV HEADER OPERATION: EGD with biospies and RFA PRE-OP DIAGNOSIS: Vergara's esophagus TISSUE SUBMITTED: A- Distal esophagus biopsy MICROSCOPIC DIAGNOSIS A. Esophagus, distal, biopsy: Squamous mucosa with mild reactive changes Columnar mucosa, negative for goblet cell metaplasia. Negative for dysplasia. MICROSCOPIC DESCRIPTION Slides are reviewed. GROSS DESCRIPTION A. Received in formalin in a container labeled with the patient's name, date of , and distal esophagus biopsy are multiple lópez-pink fragments of mucosal tissue measuring 1.0 x 0.6 x 0.2 cm in aggregate. Submitted in toto in A1. [facility] 12-30-2024 CPT:87246
--- NOTE | 2024-12-30 12:29 | OP.EGD_ITS ---
Patient Name: Roger Mart Procedure Date: 12/30/2024 11:51 AM Date of : 1955 Age: 69 Procedure: Upper GI endoscopy Indications: Heartburn, Vergara's esophagus with low grade dysplasia, For endoscopic therapy of Vergara's esophagus with low grade dysplasia Providers: Pablo Pichardo DO Referring MD: Adrile Pike Md Medicines: Propofol per Anesthesia Patient Profile: This is a 69 year old male. Refer to note in patient chart for documentation of history and physical. Patient has symptoms of chronic dyspepsia, acute heartburn, chronic nausea and chronic vomiting. Complications: No immediate complications. Procedure: Pre-Anesthesia Assessment: - Prior to the procedure, a History and Physical was performed, and patient medications and allergies were reviewed. The patient is competent. The risks and benefits of the procedure and the sedation options and risks were discussed with the patient. All questions were answered and informed consent was obtained. Patient identification and proposed procedure were verified by the physician in the pre-procedure area. Mental Status Examination: alert and oriented. Airway Examination: normal oropharyngeal airway and neck mobility. Respiratory Examination: clear to auscultation. CV Examination: normal. Prophylactic Antibiotics: The patient does not require prophylactic antibiotics. Prior Anticoagulants: The patient has taken no anticoagulant or antiplatelet agents. ASA Grade Assessment: II - A patient with mild systemic disease. After reviewing the risks and benefits, the patient was deemed in satisfactory condition to undergo the procedure. The anesthesia plan was to use monitored anesthesia care (MAC). Immediately prior to administration of medications, the patient was re-assessed for adequacy to receive sedatives. The heart rate, respiratory rate, oxygen saturations, blood pressure, adequacy of pulmonary ventilation, and response to care were monitored throughout the procedure. The physical status of the patient was re-assessed after the procedure. After obtaining informed consent, the endoscope was passed under direct vision. Throughout the procedure, the patient's blood pressure, pulse, and oxygen saturations were monitored continuously. The gastroscope was introduced through the mouth, and advanced to the second part of duodenum. The upper GI endoscopy was accomplished without difficulty. The patient tolerated the procedure well. Scope In: 12:05:39 PM Scope Out: 12:18:48 PM Total Procedure Duration Time 0 hours 13 minutes 9 seconds Findings: The esophagus and gastroesophageal junction were examined with white light and narrow band imaging (NBI) from a forward view and retroflexed position. There were esophageal mucosal changes secondary to established long-segment Vergara's disease. These changes involved the mucosa at the upper extent of the gastric folds (40 cm from the incisors) extending to the Z-line (35 cm from the incisors). Two tongues of salmon-colored mucosa were present at 35 cm. The maximum longitudinal extent of these esophageal mucosal changes was 5 cm in length. Mucosa was biopsied with a cold forceps for histology in a targeted manner at intervals of 1 cm in the lower third of the esophagus. One specimen bottle was sent to pathology. Focal radiofrequency ablation of Vergara's esophagus was performed. With the endoscope in place, the position and extent of the Vergara's mucosa and the anatomic landmarks including top of gastric folds were noted. Endoscopic visualization identified an ablation site including the entire visible Vergara's segment. The Vergara's mucosa was irrigated with water. Gastric contents were suctioned. The endoscope was then removed from the patient. The Barrx-90 radiofrequency ablation catheter was attached to the tip of the endoscope. The endoscope with the attached radiofrequency ablation catheter was then passed transorally under direct vision into the esophagus and advanced to the areas of Vergara's mucosa. The areas included islands of Vergara's mucosa. The radiofrequency ablation catheter was placed in contact with the surface of the Vergara's mucosa under direct visualization and energy was applied twice at 12 J/cm2. The ablation zone was cleaned of coagulative debris. The ablation catheter and endoscope were then removed and the catheter was cleaned. The catheter and endoscope were reinserted into the esophagus. A second round of ablation was then performed. Energy was applied twice at 12 J/cm2 to retreat the areas of Vergara's epithelium that had been treated with the first series of ablation. The areas of the esophagus where Vergara's mucosa had been ablated were examined. Areas of visible Vergara's esophagus were completely ablated. Estimated blood loss was minimal. A medium-sized hiatal hernia was present. No gross lesions were noted in the entire examined stomach. No gross lesions were noted in the duodenal bulb. Impression: - Esophageal mucosal changes secondary to established long-segment Vergara's disease. Biopsied. Treated with radiofrequency ablation. - Medium-sized hiatal hernia. - No gross lesions in the entire stomach. - No gross lesions in the duodenal bulb. Recommendation: - Discharge patient to home. - Resume previous diet. - Continue present medications. - Await pathology results. - Repeat upper endoscopy in 6 months for surveillance. Procedure Code(s): --- Professional --- 92188, Esophagogastroduodenoscopy, flexible, transoral; with ablation of tumor(s), polyp(s), or other lesion(s) (includes pre- and post-dilation and guide wire passage, when performed) 90520, 59,51, Esophagogastroduodenoscopy, flexible, transoral; with biopsy, single or multiple CPT copyright 2021 [employer]. All rights reserved. The codes documented in this report are preliminary and upon header dock review may be revised to meet current compliance requirements. Pablo Pichardo DO 12/30/2024 12:28:55 PM This report has been signed electronically. Number of Addenda: 0 Note Initiated On: 12/30/2024 11:51 AM
--- NOTE | 2024-12-30 12:29 | OP.CCLET_ITS ---
12/30/2024 Adriel Pike Md Re : Upper GI endoscopy procedure for Roger Álvarezchris Pike This procedure was performed on Monday, December 30, 2024. My impressions and recommendations are as follows: Impressions : - Esophageal mucosal changes secondary to established long-segment Vergara's disease. Biopsied. Treated with radiofrequency ablation. - Medium-sized hiatal hernia. - No gross lesions in the entire stomach. - No gross lesions in the duodenal bulb. Recommendations : - Discharge patient to home. - Resume previous diet. - Continue present medications. - Await pathology results. - Repeat upper endoscopy in 6 months for surveillance. My findings are described in the full procedure note, which is enclosed. If I can be of further assistance, please feel free to contact me at . Sincerely, Pablo Pichadro, 12/30/2024 12:28:55 PM This report has been signed electronically.
--- NOTE | 2024-12-30 12:32 | PCM.POST.ANE ---
Anesthesia: Postop Eval I Current Vital Signs Temperature: 97 F Pulse Rate: 14 Blood Pressure: 90/67 Respiratory Rate: 14 Pulse Ox: 97 Oxygen Delivery Method: Room Air Assessment Airway patent: Yes Spontaneous unlabored respirations: Yes Mental status: Awake and Calm nausea: No Vomiting: No Anesthesia Complication: No Fluid Hydration Crystalloid volume administer (ml): 800 Total IV fluid infused: 800 Progress Note Anesthesia document: Postop Eval 1 completed: Yes
--- NOTE | 2024-12-30 13:19 | PCM.POSTANE2 ---
Anesthesia Postop Eval I Sum Postop Eval Completion status Anesthesia document: Postop Eval 1 completed: Yes Anesthesia Postop Eval I Summary Anesthesia Postop Eval I Summary: Anesthesia Postop Eval I: Assessment Summary Airway patent Yes 12/30/24 12:33 [email or web address] Spontaneous unlabored Yes 12/30/24 12:33 [email or web address] respirations Mental status Awake,Calm 12/30/24 12:33 [email or web address] nausea No 12/30/24 12:33 [email or web address] Vomiting No 12/30/24 12:33 [email or web address] Anesthesia Postop Eval I: Fluid Summary Crystalloid volume administer 800 12/30/24 12:33 [email or web address] (ml) Colloids volume administered ( ml) Blood Product volume administered (ml) Total IV fluid infused 800 12/30/24 12:33 [email or web address] Anesthesia Postop Eval I: Summary Notes Anesthesia Complication No 12/30/24 12:33 [email or web address] Anesthesia Complication Comment: Post-operative progress note Anesthesia: Postop Eval II Evaluation Mental status: Awake and Calm Pain Level: 0 nausea: No Vomiting: No Complications Anesthesia Complication: No
== END 2024-12-30 13:04 | disposition home or self-care (01) ==
LOC: EN 10:56 → AC 10:57
PROVIDERS: PCP Family Medicine; Referring Provider Family Medicine; Visit Provider Internal Medicine Gastroenterology
PROC: 0DJ08ZZ Inspection of Upper Intestinal Tract, Via Natural or Artificial Opening Endoscopic (ICD-10-PCS; CPT 43235; principal; 2024-12-30 11:55)
DX: K22.70 Barrett's esophagus without dysplasia (principal); J96.11 Chronic respiratory failure with hypoxia; J43.9 Emphysema, unspecified; I48.0 Paroxysmal atrial fibrillation; E11.9 Type 2 diabetes mellitus without complications; K44.9 Diaphragmatic hernia without obstruction or gangrene; M10.9 Gout, unspecified; M81.0 Age-related osteoporosis without current pathological fracture; Z79.51 Long term (current) use of inhaled steroids; E78.5 Hyperlipidemia, unspecified; R12 Heartburn; I10 Essential (primary) hypertension; Z79.01 Long term (current) use of anticoagulants; Z79.899 Other long term (current) drug therapy; Z86.718 Personal history of other venous thrombosis and embolism; Z87.891 Personal history of nicotine dependence; Z86.0100 Personal history of colon polyps, unspecified
CPT/HCPCS: 43270; 43239; 36416; 82962; 85610; 88305; C1889; J2405

== ENCOUNTER → 2025-01-02 | Outpatient (CLI) | payer MEDICARE, MEDICAID, SELFPAY ==
--- NOTE | 2025-01-02 17:59 | CT_ITS ---
PROCEDURE: LOW DOSE CT LUNG SCREENING 01/02/2025 REASON FOR EXAM: SMOKING TECHNIQUE: Low Dose CT Lung screening without contrast. Coronal and Sagittal reconstruction series were provided. One or more dose reduction techniques were used (e.g., Automated exposure control, adjustment of the mA and/or kV according to patient size, use of iterative reconstruction technique). REFERENCE LINK: [facility] Lung-RADS RADIATION DOSE SUMMARY: CTDlvol: 3.0 mGy DLP: 107 mGycm COMPARISON: CT chest on 05/14/2024 and 12/29/2023 FINDINGS: Lymph Nodes:No significant lymphadenopathy Heart and Vasculature:No significant cardiomegaly. There are calcifications surrounding the left atrium, unchanged. Severe coronary calcification. Diffuse aortic atherosclerosis. Lungs and Airways: Pleura:No effusion central airways are predominantly clear. Severe emphysematous changes. There are multiple solid pulmonary nodules, the largest measuring 6 mm in the right upper lobe (series 2, image 143) and right middle lobe (image 188), unchanged. Upper Abdomen:Unremarkable Bones:Severe compression deformity at T8, unchanged. Additionally there are unchanged compression deformities at T9, T12, and L2. Unchanged fracture of the T10 vertebral body. CT/Low Dose CT Lung Screening IMPRESSION: Lung-RADS Category: 2S BENIGN (BASED ON IMAGING FEATURES OR INDOLENT BEHAVIOR). RECOMMEND 12-MONTH SCREENING LDCT. Other Significant Findings: Severe coronary calcification. Severe emphysematou s changes. Numerous unchanged vertebral fractures. Reading Location: [id number]
--- OUTSIDE RECORDS SUMMARY | 2025-01-02 19:27 | XMS RPT_ITS | CCD ---
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 Neeraj Daugherty Primary Care Provider Dr. Neeraj Daugherty Referring Provider Remington CRYSTALLOGRAPHY TEACHER, CRYSTALLOGRAPHY TEACHER-C Angelita Attending Provider TAMIA Esquivel Attending Provider Dr. Rodríguez Portillo Attending Provider Dr. Dash Uriarte Attending Provider TAMIA Matt Attending Provider Nilesh CRYSTALLOGRAPHY TEACHER, CRYSTALLOGRAPHY TEACHER-C Franky Lewis Attending Provider Dr. Neeraj Daugherty Primary Care Provider Dr. Neeraj Daugherty Referring Provider Dr. Neeraj Daugherty Primary Care Provider Dr. Neeraj Daugherty Referring Provider Dr. Neeraj Daugherty Primary Care Provider Dr. Neeraj Daugherty Referring Provider TAMIA Matt Attending Provider Ana Lilia EVANS, CRYSTALLOGRAPHY TEACHER-C Priya Merritt Attending Provider Dr. Neeraj Daugherty Primary Care Provider Dr. Neeraj Daugherty Referring Provider Dr. Neeraj Daugherty Primary Care Provider Dr. Neeraj Daugherty Referring Provider Ana Lilia CRYSTALLOGRAPHY TEACHER, CRYSTALLOGRAPHY TEACHER-C Priya Merritt Attending Provider Macedo CRYSTALLOGRAPHY TEACHER, CRYSTALLOGRAPHY TEACHER-Rubin Goldstein Attending Provider [phone] Dr. Pablo Pichardo Attending Provider Kylee, Dr. Shah Other Provider Dr. Neeraj Daugherty Primary Care Provider Dr. Neeraj Daugherty Referring Provider Ana Lilia CRYSTALLOGRAPHY TEACHER, CRYSTALLOGRAPHY TEACHER-C Priya Merritt Attending Provider Roof CRYSTALLOGRAPHY TEACHER, CRYSTALLOGRAPHY TEACHER-C Franky Lewis Attending Provider Dr. Neeraj Daugherty Primary Care Provider Dr. Neeraj Daugherty Referring Provider Ana Lilia CRYSTALLOGRAPHY TEACHER, CRYSTALLOGRAPHY TEACHER-C Priya Merritt Attending Provider Roof CRYSTALLOGRAPHY TEACHER, CRYSTALLOGRAPHY TEACHER-C Franky Lewis Attending Provider Dr. Rodríguez Portillo Attending Provider Dr. Neeraj Daugherty Primary Care Provider Dr. Neeraj Daugherty Referring Provider TAMIA Matt Attending Provider Dr. Dwayne Anthony Attending Provider DO Jahaira Cerna Primary Care Provider DO Jahaira Cerna Referring Provider Dr. Dwayne Anthony Referring Provider ROLANDO Rivera Attending Provider Parveen Portillo Unavailable Dwayne Wells MD Unavailable Neeraj Daugherty MD Primary Care Provider [phone] Dr. Neeraj Daugherty Primary Care Provider Dr. Neeraj Daugherty Referring Provider Dr. Alexander Calzada Attending Provider Ana Lilia CRYSTALLOGRAPHY TEACHER, CRYSTALLOGRAPHY TEACHER-C Priya Merritt Attending Provider Aramis CANTRELL, PA Dionna Merritt Attending Provider Dr. Neeraj Daugherty Primary Care Provider Dr. Neeraj Daugherty Referring Provider Dr. Neeraj Daugherty Referring Provider Eryn, DO Jahaira M Primary Care Provider Dr. Neeraj Daugherty Referring Provider Unavailable Eryn, DO Jahaira M Primary Care Provider Eryn, DO Jahaira M Primary Care Provider Eryn, DO Jahaira M Referring Provider Dr. Dash Uriarte Attending Provider Friend, Dr. Shah Attending Provider [phone] Friend, Dr. Shah Other Provider Dr. Pablo Pichardo Referring Provider Eryn, DO Jahaira M Primary Care Provider Eryn, DO Jahaira M Referring Provider Dr. Dash Uriarte Attending Provider Friend, Dr. Shah Attending Provider [phone] Dr. Pablo Pichardo Other Provider [phone] Pablo Pichardo Referring Provider [phone] Dr. Neeraj Daugherty Referring Provider Unavailable Dr. Rodríguez Portillo Attending Provider Eryn, DO Jahaira M Primary Care Provider Eryn, DO Jahaira M Referring Provider FriendDr. Shah Attending Provider Kylee, Dr. Shah Other Provider Eryn, DO Jahaira M Primary Care Provider Dr. Pablo Pichardo Attending Provider DO Jahaira Cerna Referring Provider Dwayne Wells MD Unavailable Group[facility] Unavailable Adriel Khan MD Primary Care Provider Tray Santiago MD Unavailable Friend Pablo ABDULLAHI Unavailable DO Jahaira Cerna Primary Care Provider DO Jahaira Cerna Referring Provider Group, [facility] Unavailable Unavailable Adriel Khan MD Primary Care Provider Adriel Khan MD Referring Provider Dr. Pablo Pichardo DO Attending Provider Dionna Mesa Attending Provider Dionna Mesa Referring Provider Dr. Tray Santiago MD Attending Provider Willow REIS, Dr. Pickard Family Provider Unavailable Nilesh EVANS-CFranky Attending Provider Franky Gomez Referring Provider Dr. Rodríguez Portillo MD Other Provider Adriel Khan MD Other Provider Remington EVANS-CAngelita Attending Provider Dr. Pablo Pichardo DO Other Provider Remington EVANS-CAngelita Referring Provider Luis EVANS-CGladys Attending Provider Dash Uriarte Unavailable Nilesh KINESIOTHERAPIST.Franky PATTON Unavailable DWAYNE WELLS Attending Unavailable TRAY SANTIAGO Referring Unavailable ADRIEL KHAN Primary Care Unavailable Adriel Khan MD Primary Care Provider [phone] Adriel Khan MD Referring Provider Dionna Mesa Attending Provider Willow REIS, Dr. Pickard Family Provider Unavailable Roof CRYSTALLOGRAPHY TEACHER-C, Franky H Attending Provider Roof CRYSTALLOGRAPHY TEACHER-C, Franky H Referring Provider Dr. Rodríguez Portillo MD Other Provider Glendy REIS, Adriel Other Provider Macedo CRYSTALLOGRAPHY TEACHER-C, Angelita Attending Provider Macedo CRYSTALLOGRAPHY TEACHER-C, Angelita Referring Provider Dr. Gagandeep Arechiga DO Attending Provider Dr. Gagandeep Arechiga DO Emergency Provider [phone] Lawson Giron Attending Provider Dr. Rodríguez Portillo MD Attending Provider Dr. Neeraj Daugherty MD Family Provider Unavailable Roof CRYSTALLOGRAPHY TEACHER-C, Franky H Attending Provider Roof CRYSTALLOGRAPHY TEACHER-C, Franky H Referring Provider Dr. Rodríguez Portillo MD Other Provider Glendy REIS, Adriel Primary Care Provider [phone] Adriel Khan MD Other Provider Glendy REIS, Adriel Referring Provider Lawson Giron Referring Provider [phone] Adam REIS, Dr. Bailey Attending Provider Jess Redmond Attending Unavailable Francisca Dobson Consulting Unavailable Adriel Khan Primary Care Unavailable Francisca Dobson Admitting Unavailable Dionicio Campbell Consulting Unavailable Jess Redmond Consulting Unavailable Sanjeev Osborn Consulting Unavailable Rey Garcia Consulting Unavailable Segun Lin Consulting Unavailable Dash Uriarte Consulting Unavailable Kannan Guerrero Consulting Unavailable Osvaldo Hopper Consulting Unavailable Aman Gillis Consulting Unavailable Sophy Patrick Consulting UnavailJayson Holcomb Consulting Unavailable Everett Peralta Consulting Unavailable Tabitha, Bertha Consulting Unavailable Aljunsussy, Lamia Consulting Unavailable Gunjan, Asael Consulting Unavailable IrJovany maria Consulting Unavailable Ian, Jair Consulting Unavailable Krystina Frias Consulting Unavailable Edward Syed Consulting Unavailable Haja Molina Consulting Unavailable Dionicio Campbell Attending Unavailable Glendy, Chalon Primary Care Unavailable White, Glory L Consulting Unavailable White, Glory L Admitting Unavailable Glendy, Chalon Primary Care Unavailable Jopperi, Gagandeep Admitting Unavailable Jopperi, Gagandeep Consulting Unavailable Jopperi, Gagandeep Attending Unavailable Glendy, Chalon Primary Care Unavailable Jopperi, Gagandeep Admitting Unavailable Jolesaeri Gagandeep Attending Unavailable Roof CRYSTALLOGRAPHY TEACHER, Franky H Referring Unavailable Roof CRYSTALLOGRAPHY TEACHER, Franky Lewis Attending Unavailable Bandar, Rodríguez Consulting Unavailable Glendy, Chalon Primary Care Unavailable Glendy, Chalon Consulting Unavailable Roof CRYSTALLOGRAPHY TEACHER, Franky Lewis Attending Unavailable Roof CRYSTALLOGRAPHY TEACHER, Franky Lewis Referring Unavailable Bandar, Rodríguez Consulting Unavailable Glendy, Chalon Primary Care Unavailable Glendy, Chalon Primary Care Unavailable Pamela, [place] Referring Unavailable PamelaTray everett Attending Unavailable Glendy, Chalon Primary Care Unavailable Dionna Self Attending Unavailabl e Dionna Self Referring Unavailabl e Roof CRYSTALLOGRAPHY TEACHER, Franky Lewis Referring Unavailable Roof CRYSTALLOGRAPHY TEACHER, Franky Lewis Attending Unavailable Bandar, Rodríguez Consulting Unavailable Glendy, Chalon Primary Care Unavailable Glendy, Chalon Consulting Unavailable Glendy, Chalon Primary Care Unavailable Gagandeep Arechiga Attending Unavailable Glendy, Chalon Primary Care Unavailable Malcolm Lee Attending Unavailable Glendy, Chalon Primary Care Unavailable Macedo CRYSTALLOGRAPHY TEACHER, Angelita Referring Unavailable Macedo CRYSTALLOGRAPHY TEACHER, Angelita Attending Unavailable Glendy, Chalon Primary Care Unavailable Macedo CRYSTALLOGRAPHY TEACHER, Angelita Attending Unavailable Macedo CRYSTALLOGRAPHY TEACHER, Angelita Referring Unavailable Roof CRYSTALLOGRAPHY TEACHER, Franky H Referring Unavailable Roof CRYSTALLOGRAPHY TEACHER, Franky Lewis Attending Unavailable Bandar, Rodríguez Consulting Unavailable Glendy, Chalon Primary Care Unavailable Glendy, Chalon Consulting Unavailable Dionicio Campbell Attending Unavailable Francisca Dobson Consulting Unavailable Glendy, Chalon Primary Care Unavailable Francisca Dobson Admitting Unavailable Dionicio Campbell Consulting Unavailable Francisca Dobson Attending Unavailable Jess Redmond Attending Unavailable Jess Redmond Consulting Unavailable Sanjeev Osborn Consulting Unavailable Pablo Pichardo Attending Unavailable Glendy, Chalon Primary Care Unavailable Glendy, Chalon Referring Unavailable Rey Garcia Consulting Unavailable Segun Lin Consulting Unavailable Dash Uriarte Consulting Unavailable Kannan Guerrero Consulting Unavailable Osvaldo Hopper Consulting Unavailable Aman Gillis Consulting Unavailable Sophy Patrick Consulting UnavailJayson Holcomb Consulting Unavailable Peralta, Everett Consulting Unavailable Tabitha, Bertha Consulting Unavailable Aljunsussy, Justina Consulting Unavailable Gunjan, Asael Consulting Unavailable IrJovany maria Consulting Unavailable Ian, Jair Consulting Unavailable Krystina Frias Consulting Unavailable Kunal, Edward Consulting Unavailable Haja Molina Consulting Unavailable Nyla, Jess Felicia Referring Unavailable Dash Uriarte Attending Unavailable Friend, Pablo Consulting Unavailable Glendy, Chalon Primary Care Unavailable Friend, Pablo Attending Unavailable Glendy, Chalon Referring Unavailable Glendy, Chalon Primary Care Unavailable Macedo CRYSTALLOGRAPHY TEACHER, Angelita Referring Unavailable Macedo CRYSTALLOGRAPHY TEACHER, Angelita Consulting Unavailable Dash Uriarte Attending Unavailable Dionicio Campbell Attending Unavailable Glendy, Chalon Primary Care Unavailable WhiteGlory L Consulting Unavailable White Glory L Admitting Unavailable Dionicio Campbell Consulting Unavailable WhiteGlory L Attending Unavailable Dionicio Campbell Referring Unavailable Friend, Pablo Attending Unavailable Glendy, Chalon Primary Care Unavailable Pamela, [place] Referring Unavailable Pamela, Tray Attending Unavailable Glendy, Chalon Primary Care Unavailable Macedo CRYSTALLOGRAPHY TEACHER, Angelita Referring Unavailable Dash Uriarte Attending Unavailable Glendy, Chalon Primary Care Unavailable eRmington CRYSTALLOGRAPHY TEACHER, Angelita Attending Unavailable Glendy, Chalon Referring Unavailable Franky Galloway NP Attending Unavailable Glendy, Chalon Primary Care Unavailable Glendy, Chalon Referring Unavailable Glendy, Chalon Referring Unavailable Glendy, Chalon Primary Care Unavailable Gladys Smith Attending Unavailable Glendy, Chalon Referring Unavailable Glendy, Chalon Primary Care Unavailable Dionna Self Attending Unavailabl e Glendy, Chalon Primary Care Unavailable Macedo CRYSTALLOGRAPHY TEACHER, Angelita Attending Unavailable Glendy, Chalon Referring Unavailable Friend, Pablo Attending Unavailable Glendy, Chalon Referring Unavailable Glendy, Chalon Primary Care Unavailable Glendy, Chalon Primary Care Unavailable Pamela, [place] Attending Unavailable Pamela, [place] Referring Unavailable Glendy, Chalon Primary Care Unavailable Glendy, Chalon Attending Unavailable Roof CRYSTALLOGRAPHY TEACHER, Franky Lewis Referring Unavailable Roof CRYSTALLOGRAPHY TEACHER, Franky Lewis Attending Unavailable Bandar, Rodríguez Consulting Unavailable Glendy, Chalon Primary Care Unavailable Glendy, Chalon Consulting Unavailable Bandar, Rodríguez Attending Unavailable Bandar, Rodríguez Referring Unavailable Glendy, Chalon Primary Care Unavailable Glendy, Chalon Primary Care Unavailable Isaias Huber Attending Unavailabl e Roof CRYSTALLOGRAPHY TEACHER, Franky Lewis Referring Unavailable Roof CRYSTALLOGRAPHY TEACHER, Franky Lewis Attending Unavailable Bandar, Rodríguez Consulting Unavailable Glendy, Chalon Primary Care Unavailable Glendy, Chalon Consulting Unavailable Roof CRYSTALLOGRAPHY TEACHER, Franky Lewis Referring Unavailable Roof CRYSTALLOGRAPHY TEACHER, Franky Lewis Attending Unavailable Bandar, Rodríguez Consulting Unavailable Glendy, Chalon Primary Care Unavailable Glendy, Chalon Consulting Unavailable Macedo CRYSTALLOGRAPHY TEACHER, Angelita Attending Unavailable Glendy, Chalon Primary Care Unavailable Ricarda Gomes Attending Unavailable Glendy, Chalon Referring Unavailable FriendPablo Attending Unavailable Glendy, Chalon Primary Care Unavailable Glendy, Chalon Referring Unavailable Bandar, Rodríguez Attending Unavailable Glendy, Chalon Primary Care Unavailable Glendy, Chalon Referring Unavailable Friend, Pablo Attending Unavailable Glendy, Chalon Primary Care Unavailable Glendy, Chalon Referring Unavailable Glendy, Chalon Primary Care Unavailable Tray Santiago Attending Unavailable Gagandeep Nunn Referring Unavailable Glendy, Chalon Primary Care Unavailable Tray Santiago Attending Unavailable Jess Redmond Referring Unavailable Glendy, Chalon Primary Care Unavailable Peter Barba Attending Unavailable Glendy, Chalon Primary Care Unavailable Dionna Self Referring Unavailabl e Tray Santiago Attending Unavailable Rodríguez Portillo Attending Unavailable Glendy, Chalon Primary Care Unavailable Glendy, Chalon Referring Unavailable Glendy, Chalon Primary Care Unavailable Demiter, Lawson Attending Unavailable Glendy, Chalon Referring Unavailable Demiter, Lawson Referring Unavailable Glendy, Chalon Primary Care Unavailable DemiterBabarr Attending Unavailable Roof CRYSTALLOGRAPHY TEACHER, Franky Lewis Attending Unavailable Bandar, Rodríguez Consulting Unavailable Glendy, Chalon Primary Care Unavailable Roof CRYSTALLOGRAPHY TEACHER, Franky Lewis Referring Unavailable Glendy, Chalon Consulting Unavailable Glendy, Chalon Primary Care Unavailable Macedo CRYSTALLOGRAPHY TEACHER, Angelita Attending Unavailable Macedo CRYSTALLOGRAPHY TEACHER, Angelita Referring Unavailable Roof CRYSTALLOGRAPHY TEACHER, Franky Lewis Attending Unavailable Bandar, Rodríguez Consulting Unavailable Glendy, Chalon Primary Care Unavailable Roof CRYSTALLOGRAPHY TEACHER, Franky Lewis Referring Unavailable Roof CRYSTALLOGRAPHY TEACHER, Franky H Referring Unavailable Roof CRYSTALLOGRAPHY TEACHER, Franky Lewis Attending Unavailable Lgendy, Chalon Primary Care Unavailable Bandar, Rodríguez Consulting Unavailable Glendy, Chalon Consulting Unavailable Roof CRYSTALLOGRAPHY TEACHER, Franky H Referring Unavailable Bandar, Rodríguez Consulting Unavailable Glendy, Chalon Primary Care Unavailable Roof CRYSTALLOGRAPHY TEACHER, Franky Lewis Attending Unavailable Roof CRYSTALLOGRAPHY TEACHER, Franky Lewis Attending Unavailable Bandar, Rodríguez Consulting Unavailable Jahaira Cerna Primary Care Unavailable Roof CRYSTALLOGRAPHY TEACHER, Franky Lewis Referring Unavailable ErynJahaira M Referring Unavailable Glendy, Chalon Primary Care Unavailable Tray Santiago Attending Unavailable Friend, Pablo Consulting Unavailable Friend, Pablo Attending Unavailable Glendy, Chalon Primary Care Unavailable Glendy, Chalon Referring Unavailable Glendy, Chalon Primary Care Unavailable Lawson Miller Referring Unavailable AdamLynn Attending Unavailable Glendy, Chalon Primary Care Unavailable Glendy, Chalon Referring Unavailable Adam, Lynn Attending Unavailable Glendy, Chalon Primary Care Unavailable Remington CRYSTALLOGRAPHY TEACHER, Angelita Attending Unavailable Glendy, Chalon Referring Unavailable Glendy, Chalon Primary Care Unavailable Macedo CRYSTALLOGRAPHY TEACHER, Angelita Attending Unavailable Macedo CRYSTALLOGRAPHY TEACHER, Angelita Referring Unavailable Roof CRYSTALLOGRAPHY TEACHER, Franky Lewis Referring Unavailable Bandar, Rodríguez Consulting Unavailable Glendy, Chalon Primary Care Unavailable Roof CRYSTALLOGRAPHY TEACHER, Franky Lewis Attending Unavailable Allergies Allergy Classification Reported Allergen(s) Allergy Type Date of Onset Reaction(s) Facility Chlorpheniramine / Pseudoephedrine (1 source) Chlorpheniramine / Pseudoephedrine Drug Allergy 08-25-19 16 [facility] Succinylcholine (1 source) Succinylcholine Drug Allergy 12-06-19 17 [facility] Work Phone: (7 sources) Chlorpheniramine / Pseudoephedrine; 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: [MED-HIST] Drug Allergy 08-25-19 16 [facility] (7 sources) Succinylcholine; 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: [SUCCINYLCHOLINE] Drug Allergy 12-06-19 17 [facility] (8 sources) Insect Extracts; 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: [INSECT EXTRACTS] Drug Allergy 08-25-19 16 [facility] (20 sources) Secobarbital; 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: [secobarbital sodium] Drug Allergy 10-28-19 22 Unknown [facility] (20 sources) venom-honey bee Allergy to substance 10-28-19 22 Anaphylaxis [facility] (6 sources) Secobarbital; 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: [SECOBARBITAL] Drug Allergy 10-31-19 Other: See Comments [facility] Work Phone: (1 source) venom-honey bee Drug allergy (disorder) 12-31-19 [facility] Repository Medications Current Medications Medication Drug Class(es) Dates Sig (Normalized) Sig (Original) albuterol 0.833 mg/ml / ipratropium bromide 0.167 mg/ml inhalation solution (20 sources) Anticholinergic, beta2-Adrenergic Agonist Start: 12-25-2024 take 1 mL by inhalation twice daily Ipratropium-Albuter ol 0.5 mg-3 mg(2.5 mg base)/3 mL solution for nebulization Active 3 mL INHALATION TWICE A DAY December 25, 2024 12:00am Start: 11-19-2024 take 1 dose by inhal ation three times daily as needed for wheezing ipratropium-albuterol (DUONEB) 0.5 mg-3 mg(2.5 mg base)/3 mL nebu inhale contents of one vial via nebulizer three times a day As Needed for shortness of breath or wheezing 11/19/2024 Active Start: 07-16-2024 End: 10-15-2024 take 1 mL by inhalation three times daily as needed for wheezing Ipratropium-Albuterol 0.5 mg-3 mg(2.5 mg base)/3 mL solution for nebulization Discontinued 3 mL INHALATION THREE TIMES A DAY as needed for shortness of breath or wheezing 180 September 24, 2024 9:47am October 15, 2024 11:30am amoxicillin 500 mg oral capsule (5 sources) Penicillin-class Antibacterial Start: 11-30-2022 take 4 capsules by mouth every hour amoxicillin (AMOXIL) 500 mg capsule TAKE 4 CAPSULES BY MOUTH ONE HOUR PRIOR TO DENTAL APPOINTMENT. 11/30/2022 Active Comment on above: TAKE 4 CAPSULES BY M OUTH ONE HOUR PRIOR TO DENTAL APPOINTMENT. cholecalciferol 0.05 mg oral capsule (20 sources) Vitamin D Start: 08-18-2024 take 1 capsule by mouth once daily Cholecalciferol (Vitamin D3) 50 mcg (2,000 unit) capsule Active 50 ug PO daily August 18, 2024 1:00am Start: 04-07-2024 End: 07-16-2024 take 1 capsule by mouth once daily Cholecalciferol (Vitamin D3) 50 mcg (2,000 unit) capsule Discontinued 50 ug PO DAILY April 07, 2024 12:00am July 16, 2024 11:44am Start: 02-28-2024 End: 04-07-2024 take 1 capsule by mouth once daily Cholecalciferol (Vitamin D3) 250 mcg (10,000 unit) capsule Discontinued 250 ug PO DAILY February 28, 2024 12:00am April 07, 2024 11:58am Start: 10-13-2019 End: 06-18-2023 take 1 capsule by mouth once daily Cholecalciferol (Vitamin D3) 250 mcg (10,000 unit) capsule Discontinued 250 ug PO DAILY October 13, 2019 12:00am June 18, 2023 12:18pm cholecalciferol, vitD3,/vit K2 (VITAMIN D3-VITAMIN K2) 250 mcg (10,000 unit)-45 mcg cap (5 sources) take 1 tablet by mouth once daily cholecalciferol, vitD3,/vit K2 (VITAMIN D3-VITAMIN K2) 250 mcg (10,000 unit)-45 mcg cap Take 1 tablet by mouth once daily. Active take 1 tablet by mouth once tha y cholecalciferol, vitD3,/vit K2 (VITAMIN D3-VITAMIN K2) 250 mcg (10,000 unit)-45 mcg cap Take 1 tablet by mouth once daily. 0 Active cholecalciferol, vitD3,/vit K2 (VITAMIN D3-VITAMIN K2) 250 mcg (10,000 unit)-45 mcg cap Take by mouth. 0 Active Comment on above: Take by mouth. 1 ml denosumab 60 mg/ml prefilled syringe (20 sources) RANK Ligand Inhibitor Start: 023 End: 024 Denosumab (Prolia) 60 mg/mL syringe Active 60 mg SC every 6 months November 29, 2023 8:34am Comment on above: Inject 60 mg subcuta neously once every 6 months. docosaenoic acid 200 mg / eicosapentaenoic acid 300 mg oral capsule (5 sources) Start: 019 [place] 0-Zoq-Wgg-Fish Oil Active 1 EACH PO DAILY June 18, 2019 1:00am [id number] 0.3 ml EPINEPHrine 1 mg/ml auto-injector (7 sources) alpha-Adrenergic Agonist, beta-Adrenergic Agonist, Catecholamine Start: EPIPEN 2-HYACINTH 0.3 mg/0.3 mL auto-injector Inject 0.3 mg subcutaneously as needed (allergic reactions). 03/27/2016 Active Comment on above: Inject 0.3 mg subcut aneously as needed (allergic reactions). Fish Oil-[place]-3 Fatty Acids 300-1,000 mg cap (7 sources) take 1 tablet by mouth once daily Fish Oil-[place]-3 Fatty Acids 300-1,000 mg cap Take 1 tablet by mouth once daily. Active take 1 tablet by mouth once tha y Fish Oil-[place]-3 Fatty Acids 300-1,000 mg cap Take 1 tablet by mouth once daily. 0 Active Comment on above: Take 1 tablet by marcus once daily. 30 actuat fluticasone furoate 0.1 mg/actuat / umeclidinium 0.0625 mg/actuat / vilanterol 0.025 mg/actuat dry powder inhaler (6 sources) Anticholinergic, Corticosteroid, beta2-Adrenergic Agonist Start: 11-21-2024 ghxozcehwdv-cftrbktcl-q ilanter (TRELEGY ELLIPTA) 100-62.5-25 mcg inhalation powder Nixfhqxopun-Hcidzbizh-J ilanter (Trelegy Ellipta) 100-62.5-25 mcg blister with device Active 1 NMA INHALATION Q24H 60 November 21, 2024 12:00am 11/21/2024 Active Start: 11-21-2024 Fluticasone-Um eclidin-Vilanter (Trelegy Ellipta) 100-62.5-25 mcg blister with device Active 1 NMA INHALATION Q24H 60 November 21, 2024 12:00am 12 hr guaiFENesin 1200 mg extended release oral tablet (20 sources) Start: 04-29-2024 End: 10-15-2024 take 1 tablet by mouth every twelve hours Guaifenesin 1,200 mg tablet extended release 12hr Active 1200 mg PO Q12H 60 October 15, 2024 11:29am Start: 04-09-2024 End: 04-29-2024 take 1 tablet by mouth twice daily, then take 1 tablet by mouth every twelve hours Guaifenesin (Mucinex) 600 mg Tablet Extended Release 12hr Discontinued 600 mg PO TWICE A DAY April 09, 2024 12:00am April 29, 2024 11:21am Start: 07-12-2022 End: 07-05-2023 take 1 tablet by mouth every twelve hours as needed for congestion Guaifenesin 600 mg tablet extended release 12hr Discontinued 600 mg PO Q12H as needed for congestion July 12, 2022 1:00am July 05, 2023 4:16pm Start: 07-12-2022 End: 07-05-2023 take 600 mg by mouth every twelve hours Guaifenesin Discontinued 600 MG PO Q12H July 12, 2022 1:00am July 05, 2023 4:16pm nystatin [id number] unt/ml oral suspension (20 sources) Polyene Antifungal Start: 10-15-2024 take 1 mL by mouth three times daily nystatin (MYCOSTATIN) 100,000 unit/mL suspension swish and swallow 1ml BY MOUTH THREE TIMES DAILY FOR 5 DAYS 10/15/2024 Active Start: 10-15-2024 End: 10-20-2024 take 1 mL by mouth three times daily Nystatin 100,000 unit/mL suspension Discontinued 1 mL PO THREE TIMES A DAY 60 5 October 15, 2024 12:00am October 19, 2024 12:00am October 20, 2024 12:12am swish and swallow Start: 10-16-2023 End: 02-28-2024 take 1 mL by mouth every six hours Nystatin 100,000 unit/mL suspension Discontinued 1 mL PO EVERY 6 HOURS 28 October 16, 2023 12:00am February 28, 2024 11:29am Start: 10-16-2023 take 1 mL by mouth e very six hours Nystatin Active 1 ML PO EVERY 6 HOURS 28 October 16, 2023 12:00am Start: 10-27-2021 End: 11-07-2022 Nystatin 100,000 unit/mL johan pension Discontinued 2.5 mL BUCCAL THREE TIMES A DAY as needed for Sore Throat October 27, 2021 12:00am November 07, 2022 8:21am Start: 10-27-2021 End: 11-07-2022 Nystatin Discontinued 2.5 ML BUCCAL THREE TIMES A DAY October 27, 2021 12:00am November 07, 2022 8:21am Start: 10-11-2021 End: 10-21-2021 Nystatin 100,000 unit/mL johan pension Discontinued 5 mL PO THREE TIMES A DAY 150 10 October 11, 2021 12:00am October 20, 2021 12:00am October 21, 2021 12:03am administer 1/2 of dose in each side of the mouth Start: 10-11-2021 End: 10-21-2021 Nystatin Discontinued 5 ML P O THREE TIMES A DAY 150 10 October 11, 2021 12:00am October 21, 2021 12:03am administer 1/2 of dose in each side of the mouth [place]-3 Fatty Acids 1,000 mg capsule (6 sources) Start: 02-28-2024 take 1 capsule by mouth once daily [place]-3 Fatty Acids 1,000 mg capsule Active 1000 mg PO DAILY February 28, 2024 12:00am TRELEGY ELLIPTA 200-62.5-25 mcg inhalation powder (1 source) Start: 11-21-2024 TRELEGY ELLIPT A 200-62.5-25 mcg inhalation powder 11/21/2024 Active Completed/Discontinued Medications Medication Drug Class(es) Dates Sig (Normalized) Sig (Original) acetaminophen 300 mg / codeine phosphate 30 mg oral tablet (20 sources) Opioid Agonist Start: 11-15-2023 End: 12-04-2024 take 0.5-1 tablets by mouth every eight hours as needed acetaminophen-codei ne (TYLENOL-COD #3) 300-30 mg per tablet Take 0.5-1 tablets by mouth every 8 hours as needed for pain. 11/15/2023 12/04/2024 Discontinued (Other) Start: 10-16-2023 End: 02-28-2024 take 1 mL by mouth every eight hours as needed for pain Acetaminophen-Codeine 120-12 mg/5 mL solution Discontinued 5 mL PO Q8H as needed for pain 473 October 16, 2023 3:50pm February 28, 2024 11:28am Start: 10-16-2023 take 1 mL by mouth e very eight hours Acetaminophen-Codeine Active 5 ML PO Q8H 473 October 16, 2023 3:50pm Start: 09-18-2023 End: 10-16-2023 take 1 mL by mouth every eight hours as needed for pain Acetaminophen-Codeine 120-12 mg/5 mL solution Discontinued 5 mL PO Q8H as needed for pain 473 September 18, 2023 1:00am October 16, 2023 3:50pm Start: 09-18-2023 End: 10-16-2023 take 1 mL by mouth every eight hours Acetaminophen-Codeine Discontinued 5 ML PO Q8H 473 September 18, 2023 1:00am October 16, 2023 3:50pm Start: 09-18-2023 take 1 mL by mouth e very eight hours Acetaminophen-Codeine Active 5 ML PO Q8H 473 September 18, 2023 12:00am acetaminophen 325 mg / HYDROcodone bitartrate 5 mg oral tablet (20 sources) Opioid Agonist Start: 08-09-2019 End: 08-12-2019 Hydrocodone-Acetaminophen 1 TABLET tablet Discontinued 1 {tbl} PO EVERY 6 HOURS NEEDED as needed for Pain 10 3 August 09, 2019 August 11, 2019 1:00am August 12, 2019 1:09am Start: 08-09-2019 End: 08-12-2019 take 1 tablet by mouth every six hours as needed Hydrocodone-Acetaminophen Discontinued 1 TABLET PO EVERY 6 HOURS NEEDED 10 3 August 09, 2019 August 12, 2019 1:09am Start: 01-25-2016 End: 02-11-2018 Hydrocodone-Acetaminophen 1 TABLET tablet Discontinued 1 {tbl} PO EVERY 6 HOURS NEEDED as needed for Pain 8 January 25, 2016 9:31am February 11, 2018 3:41pm Start: 01-25-2016 End: 02-11-2018 take 1 tablet by mouth every six hours as needed Hydrocodone-Acetaminophen Discontinued 1 TABLET PO EVERY 6 HOURS NEEDED January 25, 2016 9:31am February 11, 2018 3:41pm [id number] actuat albuterol 0.09 mg/actuat metered dose inhaler (20 sources) beta2-Adrenergic Agonist Start: 09-26-2023 take 2 puff(s) by inhalation every four hours as needed for wheezing albuterol HFA (PROVENTIL HFA, VENTOLIN HFA) 90 mcg/actuation inhaler Inhale 2 Puffs as instructed every 4 hours as needed for wheezing/shortness of breath. 09/26/2023 Active Start: 12-14-2022 End: 10-15-2024 Albuterol Sulfate 90 mcg/act uation HFA aerosol inhaler Discontinued 2 NMA INHALATION EVERY 6 HOURS as needed for shortness of breath or wheezing 8.September 24, 2024 9:47am October 15, 2024 11:30am Start: 12-14-2022 End: 06-18-2023 take 1 puff(s) by inhalation every six hours Albuterol Sulfate Active 2 PUFF INHALATION EVERY 6 HOURS 8.June 18, 2023 12:31pm Start: 06-24-2019 End: 06-24-2019 albuterol sulfate Discontinu ed 2.5 MG continuous nebulization ONCE 1 June 24, 2019 11:02am June 24, 2019 12:55pm Start: 06-24-2019 End: 07-12-2020 take 2.5 mg by inhalation every four hours as needed for wheezing Albuterol Sulfate 2.5 mg /3 mL (0.083 %) solution for nebulization Discontinued 2.5 mg INHALATION Q4H as needed for Sob &/Or Wheezing 180 April 21, 2020 8:24am July 12, 2020 11:15am allopurinol 100 mg oral tablet (20 sources) Xanthine Oxidase Inhibitor Start: 02-28-2024 End: 04-07-2024 take 1 tablet by mouth once daily Allopurinol 100 mg tablet Discontinued 100 mg PO DAILY February 28, 2024 11:24am April 07, 2024 11:52am Start: 10-25-2023 take 1 tablet by marcus th once daily Allopurinol 300 mg tablet Active 300 mg PO DAILY April 07, 2024 12:00am Start: 06-18-2023 End: 02-28-2024 take 3 tablets by mouth once daily Allopurinol 100 mg tablet Discontinued 300 mg PO DAILY June 18, 2023 1:00am February 28, 2024 11:29am Start: 06-18-2023 take 300 mg by mouth once tha y Allopurinol Active 300 MG PO DAILY June 18, 2023 1:00am Start: 06-18-2023 End: 07-05-2023 take 1 tablet by mouth once daily Allopurinol 300 mg tablet Discontinued 300 mg PO DAILY June 18, 2023 1:00am July 05, 2023 4:14pm Start: 08-02-2015 End: 12-06-2023 take 1 tablet by mouth once daily Allopurinol 100 MG tablet Discontinued 100 mg PO DAILY June 18, 2019 9:48am November 07, 2022 8:20am Start: 08-02-2015 End: 06-18-2019 take 1 tablet by mouth twice daily at mealtime Allopurinol 100 MG tablet Discontinued 100 mg PO TWICE DAILY WITH MEALS October 27, 2015 12:00am June 18, 2019 9:48am Comment on above: Take 100 mg by mouth twice daily. Take 100 mg by mouth once daily. amoxicillin 875 mg / clavulanate 125 mg oral tablet (20 sources) Penicillin-class Antibacterial Start: 04-29-2024 End: 05-10-2024 Amoxicillin-Pot Clavulanate 875-125 mg tablet Discontinued 1 {tbl} PO TWICE A DAY April 29, 2024 12:00am May 10, 2024 8:00pm Start: 04-09-2024 End: 04-20-2024 Amoxicillin-Pot Clavulanate 875-125 mg tablet Discontinued 1 {tbl} PO TWICE A DAY April 09, 2024 12:00am April 20, 2024 9:20pm Start: 11-07-2022 End: 11-17-2022 Amoxicillin-Pot Clavulanate 875-125 mg tablet Discontinued 1 {tbl} PO Q12H 20 November 07, 2022 12:00am November 16, 2022 12:00am November 17, 2022 12:04am Start: 11-07-2022 End: 11-17-2022 take 1 tablet by mouth every twelve hours Amoxicillin-Pot Clavulanate Discontinued 1 TABLET PO Q12H 18 05November 07, 2022 12:00am November 17, 2022 12:04am aspirin 81 mg delayed release oral tablet (20 sources) Platelet Aggregation Inhibitor, Nonsteroidal Anti-inflammatory Drug Start: 10-27-2021 End: 10-27-2021 Aspirin (Adult Low Dose Aspirin) 81 mg tablet,delayed release (DR/EC) Discontinued 81 mg PO every other day October 27, 2021 9:37am October 27, 2021 10:19am Start: 10-27-2021 End: 06-14-2022 take 1 tablet by mouth once daily Aspirin 325 mg tablet Discontinued 325 mg PO DAILY October 27, 2021 12:00am June 14, 2022 12:16pm Start: 10-10-2021 End: 10-27-2021 Aspirin (Adult Low Dose Aspi rin) 81 mg tablet,delayed release (DR/EC) Discontinued 81 mg PO DAILY October 10, 2021 12:00am October 27, 2021 9:42am Bntzlfjbhv-Kroktwyn-[place] ol (20 sources) Corticosteroid, beta2-Adrenergic Agonist Start: 10-15-2024 End: 11-21-2024 Tznhvnjhzu-Vclwusgc-Dpjxmhcy ol (Breztri Aerosphere) 160-9-4.8 mcg/actuation HFA aerosol inhaler Discontinued 2 NMA INHALATION TWICE A DAY 10.7 October 15, 2024 11:29am November 21, 2024 5:11am Start: 10-15-2024 Budesonide-Gly copyr-Formoterol (Breztri Aerosphere) 160-9-4.8 mcg/actuation HFA aerosol inhaler Active 2 NMA INHALATION TWICE A DAY 10.7 October 15, 2024 11:29am Start: 09-24-2024 End: 10-15-2024 Ssjmwjfqps-Oexuhxkk-Lcpziuev ol (Breztri Aerosphere) 160-9-4.8 mcg/actuation HFA aerosol inhaler Discontinued 2 NMA INHALATION TWICE A DAY 10.7 September 24, 2024 9:47am October 15, 2024 11:30am Start: 03-12-2024 End: 09-24-2024 Pnguudtiey-Gelvzbjh-Ourvyrcb ol (Breztri Aerosphere) 160-9-4.8 mcg/actuation HFA aerosol inhaler Discontinued 2 NMA INHALATION TWICE A DAY 10.7 March 12, 2024 9:38am September 24, 2024 9:47am Start: 06-18-2023 End: 03-12-2024 Dxgpukeuom-Kyeeefwg-Ajsldtnh ol (Breztri Aerosphere) 160-9-4.8 mcg/actuation HFA aerosol inhaler Discontinued 2 NMA INHALATION TWICE A DAY 10.7 June 18, 2023 12:30pm March 12, 2024 9:38am Start: 06-18-2023 Budesonide-Gly copyr-Formoterol (Breztri Aerosphere) 160-9-4.8 mcg/actuation HFA aerosol inhaler Active 2 INH INHALATION TWICE A DAY 10.7 June 18, 2023 12:30pm Start: 06-18-2023 Budesonide-Gly copyr-Formoterol (Breztri Aerosphere) 160-9-4.8 mcg/actuation HFA aerosol inhaler Active 2 INH INHALATION TWICE A DAY 10.7 June 18, 2023 11:30am Start: 02-02-2023 End: 06-18-2023 Ytlsbryyhp-Fdxactmv-Utirksze ol (Breztri Aerosphere) 160-9-4.8 mcg/actuation HFA aerosol inhaler Discontinued 2 NMA INHALATION TWICE A DAY 10.7 February 02, 2023 9:31am June 18, 2023 12:31pm Start: 02-02-2023 End: 06-18-2023 Mlllajqznr-Unthlpes-Vjpdjufq ol (Breztri Aerosphere) 160-9-4.8 mcg/actuation HFA aerosol inhaler Discontinued 2 INH INHALATION TWICE A DAY 10.7 February 02, 2023 9:31am June 18, 2023 12:31pm Start: 02-02-2023 End: 06-18-2023 Cmogzsrztc-Zetchxee-Axwcttna ol (Breztri Aerosphere) 160-9-4.8 mcg/actuation HFA aerosol inhaler Discontinued 2 INH INHALATION TWICE A DAY 10.7 February 02, 2023 8:31am June 18, 2023 11:31am Start: 02-02-2023 Budesonide-Gly copyr-Formoterol (Breztri Aerosphere) 160-9-4.8 mcg/actuation HFA aerosol inhaler Active 2 INH INHALATION TWICE A DAY 10.7 February 02, 2023 9:31am Start: 06-14-2022 End: 02-02-2023 Zdlktzqwnf-Gxhtcpsa-Udzpyslu ol (Breztri Aerosphere) 160-9-4.8 mcg/actuation HFA aerosol inhaler Discontinued 2 NMA INHALATION TWICE A DAY 10.7 June 14, 2022 12:37pm February 02, 2023 9:32am Start: 06-14-2022 End: 02-02-2023 Apcrqqxsmr-Yorwkbkv-Zfhydqxa ol (Breztri Aerosphere) 160-9-4.8 mcg/actuation HFA aerosol inhaler Discontinued 2 INH INHALATION TWICE A DAY 10.7 June 14, 2022 11:37am February 02, 2023 8:32am Start: 06-14-2022 End: 02-02-2023 Dodrtnamzw-Tgsaodgy-Ipohxwxi ol (Breztri Aerosphere) 160-9-4.8 mcg/actuation HFA aerosol inhaler Discontinued 2 INH INHALATION TWICE A DAY 10.7 June 14, 2022 12:37pm February 02, 2023 9:32am Start: 06-14-2022 Budesonide-Gly copyr-Formoterol (Breztri Aerosphere) 160-9-4.8 mcg/actuation HFA aerosol inhaler Active 2 INH INHALATION TWICE A DAY 10.7 June 14, 2022 12:37pm Start: 06-14-2022 Budesonide-Gly copyr-Formoterol (Breztri Aerosphere) 160-9-4.8 mcg/actuation HFA aerosol inhaler Active 2 INH INHALATION TWICE A DAY 10.7 June 14, 2022 11:37am Start: 02-10-2022 End: 06-14-2022 Dmnlijyqva-Cpquzpqw-Fwybxbjj ol (Breztri Aerosphere) 160-9-4.8 mcg/actuation HFA aerosol inhaler Discontinued 2 NMA INHALATION TWICE A DAY 10.7 February 10, 2022 2:15pm June 14, 2022 12:38pm Start: 02-10-2022 End: 06-14-2022 Trovzjvylz-Lzpwitzs-Twlpqaxl ol (Breztri Aerosphere) 160-9-4.8 mcg/actuation HFA aerosol inhaler Discontinued 2 INH INHALATION TWICE A DAY 10.7 February 10, 2022 2:15pm June 14, 2022 12:38pm Start: 02-10-2022 End: 06-14-2022 Hefcagyzfz-Kjynujmn-Pbnpathj ol (Breztri Aerosphere) 160-9-4.8 mcg/actuation HFA aerosol inhaler Discontinued 2 INH INHALATION TWICE A DAY 10.7 February 10, 2022 1:15pm June 14, 2022 11:38am Start: 02-10-2022 Budesonide-Gly copyr-Formoterol (Breztri Aerosphere) 160-9-4.8 mcg/actuation HFA aerosol inhaler Active 2 INH INHALATION TWICE A DAY 10.7 February 10, 2022 2:15pm Start: 12-16-2021 take 2 puff(s) by inhalation twice daily BREZTRI AEROSPHERE 160-9-4.8 mcg/actuati on HFA aerosol inhaler inhale 2 (TWO) puffs TWICE DAILY 12/16/2021 Active Start: 07-04-2021 End: 02-10-2022 Vxjjqyubbt-Rifycoer-Jcuilcby ol (Breztri Aerosphere) 160-9-4.8 mcg/actuation HFA aerosol inhaler Discontinued 2 NMA INHALATION TWICE A DAY 10.7 July 04, 2021 11:03am February 10, 2022 2:15pm Start: 07-04-2021 End: 02-10-2022 Fyqjoabrzn-Drnysnxq-Nznyqroh ol (Breztri Aerosphere) 160-9-4.8 mcg/actuation HFA aerosol inhaler Discontinued 2 INH INHALATION TWICE A DAY 10.7 July 04, 2021 10:03am February 10, 2022 1:15pm Start: 07-04-2021 End: 02-10-2022 Ipgfkmxzdg-Ntoixhdl-Wcflrwxq ol (Breztri Aerosphere) 160-9-4.8 mcg/actuation HFA aerosol inhaler Discontinued 2 INH INHALATION TWICE A DAY 10.7 July 04, 2021 11:03am February 10, 2022 2:15pm Start: 07-04-2021 Budesonide-Gly copyr-Formoterol (Breztri Aerosphere) 160-9-4.8 mcg/actuation HFA aerosol inhaler Active 2 INH INHALATION TWICE A DAY 10.7 July 04, 2021 11:03am Start: 04-26-2021 End: 07-04-2021 Qjioklonbe-Vuquduwx-Dgubolsg ol (Breztri Aerosphere) 160-9-4.8 mcg/actuation HFA aerosol inhaler Discontinued 2 INH INHALATION TWICE A DAY 10.7 April 26, 2021 9:45am July 04, 2021 11:03am Start: 04-26-2021 End: 07-04-2021 Gurutjnccd-Jbvtpsec-Hvkvtprx ol (Breztri Aerosphere) 160-9-4.8 mcg/actuation HFA aerosol inhaler Discontinued 2 NMA INHALATION TWICE A DAY 10.7 April 26, 2021 12:00am July 04, 2021 11:03am Start: 04-26-2021 End: 07-04-2021 Ihqtolvjgd-Enifbxov-Ggixatfu ol (Breztri Aerosphere) 160-9-4.8 mcg/actuation HFA aerosol inhaler Discontinued 2 INH INHALATION TWICE A DAY 10.7 April 25, 2021 11:00pm July 04, 2021 10:03am Start: 04-26-2021 End: 07-04-2021 Rdiifocgkk-Cakcpkqj-Ghidxlhc ol (Breztri Aerosphere) 160-9-4.8 mcg/actuation HFA aerosol inhaler Discontinued 2 INH INHALATION TWICE A DAY 10.7 April 26, 2021 12:00am July 04, 2021 11:03am Comment on above: inhale 2 (TWO) puffs TWICE DAILY Calcium Carb-Mag Ox-Zinc Gluc (20 sources) Start: 10-27-2021 End: 06-14-2022 Calcium Carb-Mag Ox-Zinc Gluc 333-133-5 mg tablet Discontinued 1 {tbl} PO DAILY October 27, 2021 9:37am June 14, 2022 12:17pm Start: 10-27-2021 End: 06-14-2022 take 1 tablet by mouth once daily calcium carbonate 333 mg-magnesium oxide 133 mg-zinc gluc 5 mg tablet Discontinued 1 TABLET PO DAILY October 27, 2021 9:37am June 14, 2022 12:17pm Start: 10-27-2021 End: 06-14-2022 take 1 tablet by mouth once daily calcium carbonate 333 mg-magnesium oxide 133 mg-zinc gluc 5 mg tablet Discontinued 1 TABLET PO DAILY October 27, 2021 8:37am June 14, 2022 11:17am Start: 10-27-2021 take 1 tablet by marcus once daily calcium carbonate 333 mg-magnesium oxide 133 mg-zinc gluc 5 mg tablet Active 1 TABLET PO DAILY October 27, 2021 9:37am Start: 10-13-2019 End: 10-27-2021 calcium carbonate 333 mg-mag nesium oxide 133 mg-zinc gluc 5 mg tablet Discontinued TABLET PO October 13, 2019 11:36am October 27, 2021 9:42am Start: 10-13-2019 End: 10-27-2021 Calcium Carb-Mag Ox-Zinc Glu c 333-133-5 mg tablet Discontinued {tbl} PO October 13, 2019 12:00am October 27, 2021 9:42am Start: 10-13-2019 End: 10-27-2021 calcium carbonate 333 mg-mag nesium oxide 133 mg-zinc gluc 5 mg tablet Discontinued TABLET PO October 12, 2019 11:00pm October 27, 2021 8:42am Start: 10-13-2019 End: 10-27-2021 calcium carbonate 333 mg-mag nesium oxide 133 mg-zinc gluc 5 mg tablet Discontinued TABLET PO October 13, 2019 12:00am October 27, 2021 9:42am cyclobenzaprine hydrochloride 10 mg oral tablet (20 sources) Muscle Relaxant Start: 08-09-2019 End: 07-12-2020 take 1 tablet by mouth three times daily as needed for muscle spasms Cyclobenzaprine 10 MG tablet Discontinued 10 mg PO THREE TIMES A DAY as needed for Muscle Spasm August 09, 2019 1:00am December 01, 2019 1:14pm 24 hr dilTIAZem hydrochloride 240 mg extended release oral capsule (20 sources) Calcium Channel John Start: 12-25-2024 End: 12-25-2024 take 1 capsule by mouth twice daily Diltiazem Hcl 240 mg capsule,extended release 24hr Active 240 mg PO TWICE A DAY December 26, 2024 3:19pm Start: 11-06-2024 take 1 capsule by [facility] every twelve hours dilTIAZem CD (CARDIZEM CD, CARTIA XT) 240 mg 24 hr capsule Take 1 capsule by mouth every 12 hours. 11/06/2024 Active Start: 08-18-2024 End: 12-26-2024 take 1 capsule by mouth once daily in the morning Diltiazem Hcl 240 mg capsule,extended release 24hr Discontinued 240 mg PO EVERY MORNING December 25, 2024 4:00pm December 26, 2024 3:20pm Start: 07-16-2024 End: 08-18-2024 take 1 capsule by mouth every twenty-four hours Diltiazem Hcl 180 mg capsule,extended release 24hr Discontinued mg PO July 16, 2024 1:00am August 18, 2024 3:13pm Start: 05-21-2024 End: 07-16-2024 take 1 capsule by mouth twice daily Diltiazem Hcl 240 mg capsule,extended release 24hr Discontinued 240 mg PO TWICE A DAY 180 May 27, 2024 10:23am July 16, 2024 12:16pm Start: 05-16-2024 End: 05-21-2024 take 1 tablet by mouth twice daily Diltiazem Hcl (Cardizem) 120 mg tablet Discontinued 120 mg PO TWICE A DAY 60 May 16, 2024 12:00am May 21, 2024 2:00pm Start: 04-15-2024 End: 05-16-2024 take 1 capsule by mouth twice daily, then take 1 capsule by mouth every twenty-four hours Diltiazem Hcl (Cardizem Cd) 240 mg capsule,extended release 24hr Discontinued 240 mg PO TWICE A DAY 60 April 15, 2024 12:00am May 16, 2024 1:02pm Start: 2022 End: 12-04-2024 take 1 capsule by mouth twice daily Diltiazem Hcl 180 mg capsule,extended release 24hr Discontinued 180 mg PO TWICE A DAY 180 September 03, 2023 10:01am April 20, 2024 9:19pm Start: 10-15-2017 End: 12-05-2022 take 1 capsule by mouth twice daily Diltiazem Hcl 120 mg capsule,extended release 24hr Discontinued 120 mg PO TWICE A DAY 180 April 29, 2020 4:50pm October 27, 2021 10:20am Start: 01-25-2016 End: 10-15-2017 Diltiazem Hcl 240 MG capsule Discontinued 120 mg PO TWICE A DAY 180 October 15, 2017 1:10pm October 15, 2017 1:11pm Start: 01-25-2016 End: 10-15-2017 take 120 mg by mouth twice daily Diltiazem Hcl Discontinued 120 MG PO TWICE A DAY 180 October 15, 2017 1:10pm October 15, 2017 1:11pm Start: 10-27-2015 End: 01-25-2016 take 1 capsule by mouth once daily Diltiazem Hcl 240 MG capsule Discontinued 240 mg PO DAILY October 27, 2015 12:00am January 25, 2016 9:22am Start: 08-09-2014 End: 06-01-2015 take 1 tablet by mouth once daily Diltiazem Hcl (Cardizem La) 360 MG Tab.Er.24h Discontinued 360 mg PO DAILY August 09, 2014 1:00am June 01, 2015 4:05pm Comment on above: Take 1 capsule by mo [facility] twice daily. Take 180 mg by mouth twice daily. dofetilide 0.5 mg oral capsule (20 sources) Antiarrhythmic Start: 06-18-20 End: 08-18-19 take 1 capsule by mouth twice daily Dofetilide 500 mcg capsule Discontinued 500 ug PO TWICE A DAY 180 September 26, 2023 4:57pm August 18, 2024 3:30pm Start: 01-25-2016 End: 05-06-2019 take 1 capsule by mouth twice daily Dofetilide 500 mcg capsule Discontinued 500 ug PO TWICE A DAY 180 October 30, 2018 3:23pm May 06, 2019 2:02pm Comment on above: TAKE 1 CAPSULE BY [facility] TWICE DAILY Take 1 capsule by [facility] twice daily. doxycycline hyclate 100 mg oral capsule (6 sources) Tetracycline-cla ss Drug Start: 4 End: 4 take 1 capsule by mouth twice daily Doxycycline Hyclate 100 mg capsule Discontinued 100 mg PO TWICE A DAY April 07, 2024 12:00am April 20, 2024 9:20pm TAKE ONE CAPSULE BY MOUTH TWICE DAILY FOR 7 DAYS. 120 actuat formoterol fumarate 0.0048 mg/actuat / glycopyrrolate 0.009 mg/actuat metered dose inhaler (20 sources) beta2-Adrenergic Agonist Start: 1 End: 2 Glycopyrrolate-Formot bettina 9-4.8 mcg HFA aerosol inhaler Discontinued 2 NMA INHALATION TWICE A DAY October 11, 2020 12:00am October 27, 2021 9:38am Start: 10-11-2020 End: 10-27-2021 take 1 puff(s) by inhalation twice daily Glycopyrrolate-Formoterol Discontinued 2 PUFF INHALATION TWICE A DAY October 11, 2020 12:00am October 27, 2021 9:38am Start: 07-20-2020 End: 10-04-2020 Glycopyrrolate-Formoterol (B evespi Aerosphere) 9-4.8 mcg HFA aerosol inhaler Discontinued 2 NMA INHALATION every day in the morning and in the evening July 20, 2020 1:00am October 04, 2020 9:38am Start: 07-20-2020 End: 10-04-2020 Glycopyrrolate-Formoterol (B evespi Aerosphere) 9-4.8 mcg HFA aerosol inhaler Discontinued 2 PUFF INHALATION every day in the morning and in the evening July 20, 2020 1:00am October 04, 2020 9:38am take 2 puff(s) by inhalation twice daily glycopyrrolate-formoterol 9-4.8 mcg Inhale 2 Puffs as instructed twice daily. Active Comment on above: Inhale 2 Puffs as in structed twice daily. furosemide 40 mg oral tablet (20 sources) Loop Diuretic Start: 08-19-19 End: 08-18-19 take 1 tablet by mouth once daily as needed for edema Furosemide 40 mg tablet Discontinued 40 mg PO DAILY NEEDED as needed for edema September 26, 2023 4:57pm February 28, 2024 11:29am Comment on above: Take 40 mg by mouth once daily. ibuprofen 800 mg oral tablet (20 sources) Nonsteroidal Anti-inflammatory Drug Start: 10-28-19 End: 07-05-20 23 Ibuprofen 800 mg tablet Discontinued 800 mg PO .PRN 90 October 27, 2021 12:00am July 05, 2023 4:17pm lansoprazole 30 mg delayed release oral capsule (20 sources) Proton Pump Inhibitor Start: 02-28-20 24 End: 04-07-20 24 take 1 capsule by mouth once daily Lansoprazole 30 mg capsule,delayed release(DR/EC) Discontinued 30 mg PO DAILY February 28, 2024 12:00am April 07, 2024 12:03pm Start: 08-09-2014 End: 12-06-2023 take 1 capsule by mouth once daily Lansoprazole 30 MG capsule Discontinued 30 mg PO DAILY August 09, 2014 1:00am February 11, 2018 3:40pm Comment on above: Take 30 mg by mouth once daily. Lidocaine (20 sources) Antiarrhythmic, Amide Local Anesthetic Start: 10-16-2023 End: 02-28-2024 Lidocaine Hcl (Lidocaine Viscous) 2 % solution Discontinued 1 NMA MUCOUS MEM Q12H as needed for pain October 16, 2023 3:50pm February 28, 2024 11:29am Start: 10-16-2023 Lidocaine Hcl (Lidocaine Viscous) 2 % solution Active 1 APPLIC MUCOUS MEM Q12H October 16, 2023 3:50pm Start: 10-16-2023 lidocaine visc ous (XYLOCAINE) 2 % solution Take 5 mL by mouth as needed. 10/16/2023 Active Start: 09-18-2023 End: 10-16-2023 Lidocaine Hcl (Lidocaine Vis cous) 2 % solution Discontinued 1 NMA MUCOUS MEM Q12H as needed for pain September 18, 2023 1:00am October 16, 2023 3:50pm Start: 09-18-2023 End: 10-16-2023 Lidocaine Hcl (Lidocaine Vis cous) 2 % solution Discontinued 1 APPLIC MUCOUS MEM Q12H September 18, 2023 1:00am October 16, 2023 3:50pm Start: 09-18-2023 Lidocaine Hcl (Lidocaine Viscous) 2 % solution Active 1 APPLIC MUCOUS MEM Q12H September 18, 2023 12:00am methylPREDNISolone 4 mg oral tablet (20 sources) Corticosteroid Start: 01-19-2022 End: 01-24-2022 take 1 tablet by mouth once Methylprednisolone (Medrol (Hyacinth)) 4 mg tablets,dose pack Discontinued 4 mg PO per package directions 21 5 January 19, 2022 12:00am January 23, 2022 12:00am January 24, 2022 12:03am 24 hr metoprolol succinate 25 mg extended release oral tablet (20 sources) beta-Adrenergic John Start: 05-30-2015 End: 06-01-2015 take 1 tablet by mouth twice daily Metoprolol Succinate 25 MG tablet Discontinued 25 mg PO TWICE A DAY May 30, 2015 11:49pm June 01, 2015 4:05pm Start: 08-09-2014 End: 05-30-2015 take 1 tablet by mouth once daily Metoprolol Succinate 25 MG tablet Discontinued 25 mg PO DAILY August 09, 2014 1:00am May 30, 2015 11:49pm Tiotropium-Olodaterol (20 sources) Anticholinergic, beta2-Adrenergic Agonist Start: 10-27-2020 End: 04-26-2021 Tiotropium-Olodaterol (Stiolto Respimat) 2.5-2.5 mcg/actuation mist Discontinued 2 NMA INHALATION DAILY October 27, 2020 9:26am April 26, 2021 9:46am Start: 10-27-2020 End: 04-26-2021 Tiotropium-Olodaterol (Stiol to Respimat) 2.5-2.5 mcg/actuation mist Discontinued 2 INH INHALATION DAILY October 27, 2020 8:26am April 26, 2021 8:46am Start: 10-27-2020 End: 04-26-2021 Tiotropium-Olodaterol (Stiol to Respimat) 2.5-2.5 mcg/actuation mist Discontinued 2 INH INHALATION DAILY October 27, 2020 9:26am April 26, 2021 9:46am Start: 10-04-2020 End: 10-27-2020 Tiotropium-Olodaterol (Stiol to Respimat) 2.5-2.5 mcg/actuation mist Discontinued 2 INH INHALATION DAILY October 04, 2020 9:38am October 27, 2020 9:27am Start: 10-04-2020 End: 10-27-2020 Tiotropium-Olodaterol (Stiol to Respimat) 2.5-2.5 mcg/actuation mist Discontinued 2 NMA INHALATION DAILY October 04, 2020 1:00am October 27, 2020 9:27am Start: 10-04-2020 End: 10-27-2020 Tiotropium-Olodaterol (Stiol to Respimat) 2.5-2.5 mcg/actuation mist Discontinued 2 INH INHALATION DAILY October 04, 2020 12:00am October 27, 2020 8:27am Start: 10-04-2020 End: 10-27-2020 Tiotropium-Olodaterol (Stiol to Respimat) 2.5-2.5 mcg/actuation mist Discontinued 2 INH INHALATION DAILY October 04, 2020 1:00am October 27, 2020 9:27am [place] 3-Plh-Osl-Fish Oil (20 sources) Start: 06-18-2019 End: 07-05-2023 [place] 9-Qow-Ktt-Fish Oil Dis continued 1 EACH PO DAILY June 18, 2019 1:00am July 05, 2023 4:17pm Start: 06-18-2019 End: 07-05-2023 [place] 5-Zfz-Zka-Fish Oil Dis continued 1 EACH PO DAILY June 18, 2019 12:00am July 05, 2023 3:17pm Start: 06-18-2019 [place] 3-Dha-Ep a-Fish Oil Active 1 EACH PO DAILY June 18, 2019 12:00am Start: 06-18-2019 [place] 3-Dha-Ep a-Fish Oil Active 1 EACH PO DAILY June 18, 2019 1:00am [place] 2-Bcy-Lhu-Fish Oil 1 EACH capsule (6 sources) Start: 06-18-2019 End: 07-05-2023 take 1 capsule by mouth once daily [place] 6-Ghd-Ivb-Fish Oil 1 EACH capsule Discontinued 1 NMA PO DAILY June 18, 2019 1:00am July 05, 2023 4:17pm omeprazole 20 mg delayed release oral capsule (20 sources) Proton Pump Inhibitor Start: 02-28-2024 End: 07-01-2024 take 1 capsule by mouth once daily Omeprazole 20 mg capsule,delayed release(DR/EC) Discontinued 20 mg PO DAILY February 28, 2024 12:00am July 01, 2024 10:13am Start: 10-11-2020 End: 12-06-2023 take 1 capsule by mouth once daily Omeprazole 20 mg capsule,delayed release(DR/EC) Discontinued 20 mg PO DAILY October 11, 2020 12:00am July 12, 2022 9:08am Start: 02-11-2018 End: 12-01-2019 take 1 tablet by mouth once daily Omeprazole 20 mg tablet,delayed release (DR/EC) Discontinued 20 mg PO daily February 11, 2018 12:00am December 01, 2019 1:13pm Comment on above: Take 20 mg by mouth once daily. pantoprazole 40 mg delayed release oral tablet (20 sources) Proton Pump Inhibitor Start: End: take 1 tablet by mouth twice daily Pantoprazole 40 mg tablet,delayed release (DR/EC) Discontinued 40 mg PO TWICE A DAY 60 August 07, 2024 7:41am December 12, 2024 6:47am Start: 02-18-2024 End: 02-28-2024 take 1 tablet by mouth twice daily Pantoprazole 40 mg tablet,delayed release (DR/EC) Discontinued 40 mg PO TWICE A DAY 180 February 18, 2024 11:46am February 28, 2024 11:27am Start: 12-04-2023 take 2 tablets by mo uth once daily pantoprazole DR (PROTONIX) 40 mg tablet Take 80 mg by mouth once daily. 12/04/2023 Active Start: 09-18-2023 End: 02-18-2024 take 1 tablet by mouth every twelve hours Pantoprazole 40 mg tablet,delayed release (DR/EC) Discontinued 40 mg PO Q12H 90 September 18, 2023 3:00pm February 18, 2024 11:47am Start: 07-12-2022 End: 09-18-2023 take 1 tablet by mouth once daily Pantoprazole 40 mg tablet,delayed release (DR/EC) Discontinued 40 mg PO DAILY 90 January 10, 2023 8:16am September 18, 2023 3:01pm penicillin v potassium 500 mg oral tablet (20 sources) Start: 01-25-2016 End: 02-11-2018 take 1 tablet by mouth four times daily Penicillin V Potassium 500 MG tablet Discontinued 500 mg PO 4 TIMES DAILY 40 January 25, 2016 12:00am February 11, 2018 3:41pm permethrin 50 mg/ml topical cream (20 sources) Pyrethroid Start: 09-15-2021 End: 07-12-2022 Permethrin (Elimite) 5 % cream Discontinued 1 NMA TOPICAL ONCE 60 October 01, 2021 9:23am July 12, 2022 9:08am apply neck and below with 1/2 of tube & leave on for 8-14 hours before washing off, repeat in 7-10 days Start: 09-15-2021 End: 07-12-2022 Permethrin (Elimite) 5 % cre am Discontinued 1 APPLIC TOPICAL ONCE 60 October 01, 2021 9:23am July 12, 2022 9:08am apply neck and below with 1/2 of tube & leave on for 8-14 hours before washing off, repeat in 7-10 days microencapsulated potassium chloride 10 meq extended release oral tablet (20 sources) Start: 04-14-2017 End: 08-18-2024 take 1 tablet by mouth once daily Potassium Chloride 10 mEq tablet,ER particles/crystals Discontinued 10 meq PO DAILY September 26, 2023 4:58pm August 18, 2024 3:30pm Start: 10-27-2015 End: 05-13-2018 take 1 tablet by mouth once daily at mealtime Potassium Chloride 10 MEQ tablet Discontinued 10 meq PO DAILY WITH MEALS October 27, 2015 12:00am May 13, 2018 11:13am Comment on above: Take 10 mEq by mouth once daily. predniSONE 10 mg oral tablet (20 sources) Start: 05-16-2024 End: 07-01-2024 Prednisone 10 mg tablets,dose pack Discontinued 0 mg PO DIRECTED May 16, 2024 12:00am July 01, 2024 10:10am Please contact the information source for Taper Schedule details. Start: 04-23-2024 End: 05-10-2024 take 4 tablets by mouth once daily, then take 3 tablets by mouth once daily, then take 2 tablets by mouth once daily, then take 1 tablet by mouth once daily, then take 0.5 tablet by mouth once daily Prednisone 10 mg tablet Discontinued 10 mg PO DAILY April 23, 2024 12:00am May 10, 2024 7:59pm Take 4 tablets daily for 3 days then 3 tablets daily for 3 days then 2 tablets daily for 3 days then 1 tablet daily for 3 days then half tablet daily for 4 days Start: 04-04-2024 End: 04-20-2024 take 3 tablets by mouth once daily Prednisone 20 mg tablet Discontinued 60 mg PO DAILY April 07, 2024 12:00am April 20, 2024 9:20pm TAKE THREE TABLETS (60MG) BY MOUTH ONCE DAILY FOR FIVE DAYS. Start: 02-28-2024 End: 04-04-2024 take 1 tablet by mouth twice daily as needed Prednisone 20 mg tablet Discontinued 20 mg PO TWICE A DAY as needed February 28, 2024 12:00am April 04, 2024 12:48pm Start: 06-18-2023 End: 07-05-2023 Prednisone 20 mg tablet Disc ontinued 20 mg PO as needed June 18, 2023 1:00am July 05, 2023 4:17pm Start: 10-31-2022 take [address] tablets [address] [facility] once daily as needed predniSONE (DELTASONE) 20 mg tablet TAKE 2 TABLETS BY MOUTH DAILY FOR 5 DAYS NEEDED FOR FOR GOUT FLARE 10/31/2022 Active Start: 10-17-2021 End: 12-05-2022 Prednisone 10 mg tablet Disc ontinued 10 mg PO daily 28 07October 17, 2021 12:00am October 28, 2021 12:00am October 27, 2021 9:39am Take 4 tabs once daily days 1-3 3 tabs once daily days 4-6 2 tabs once daily days 7-9 and 1 tab once daily days 10-12. Comment on above: TAKE 2 TABLETS BY [facility] DAILY FOR 5 DAYS NEEDED FOR FOR GOUT FLARE TAKE 4 TABLETS DAILY FOR 3 DAYS, 3 DAILY FOR 3 DAYS, 2 DAILY FOR 3 DAYS, then 1 DAILY FOR 3 DAYS sucralfate 1000 mg oral tablet (20 sources) Aluminum Complex Start: End: take 1 tablet by mouth before mealtime Sucralfate (Carafate) 1 gram tablet Discontinued 1 g PO before meals 84 November 05, 2023 1:44pm February 28, 2024 11:29am Crush the tablet prior to ingestion Start: 09-18-2023 End: 11-05-2023 take 1 tablet by mouth every six hours Sucralfate (Carafate) 1 gram tablet Discontinued 1 g PO EVERY 6 HOURS 112 September 18, 2023 1:00am October 03, 2023 3:22pm Crush the tablet prior to ingestion vitamin k1 5 mg oral tablet (20 sources) Warfarin Reversal Agent, Vitamin K Start: 09-08-2019 End: 04-25-2021 take 1 tablet by mouth once daily Phytonadione (Vitamin K1) 5 mg tablet Discontinued 5 mg PO DAILY September 08, 2019 6:14pm April 25, 2021 11:23am warfarin sodium 2 mg oral tablet (20 sources) Vitamin K Antagonist Start: 11-13-2024 take 1 tablet by mouth once daily Warfarin 4 mg tablet Active 4 mg PO daily November 13, 2024 12:00am take as directed Please contact the information source for Protocol details. Start: 11-13-2024 take 1 tablet by marcus th once daily Warfarin 3 mg tablet Active 3 mg PO daily November 13, 2024 12:00am take as directed Please contact the information source for Protocol details. Start: 05-30-2024 End: 11-13-2024 Warfarin 1 mg tablet Discont inued 1 mg PO SUSA November 13, 2024 11:08am November 13, 2024 4:02pm take as directed Please contact the information source for Protocol details. Start: 04-24-2024 End: 05-10-2024 take 1 tablet by mouth once daily Warfarin 3 mg tablet Discontinued 3 mg PO DAILY April 24, 2024 2:02pm May 10, 2024 8:00pm Please contact the information source for Protocol details. Start: 04-09-2024 End: 04-24-2024 take 3 mg by mouth once daily Warfarin 2 mg tablet Dis continued 3 mg PO DAILY April 09, 2024 10:58am April 24, 2024 2:03pm Please contact the information source for Protocol details. Start: 09-12-2023 End: 04-07-2024 Warfarin 6 mg tablet Discont inued 6 mg PO BLOUNT September 12, 2023 1:00am April 07, 2024 12:01pm Please contact the information source for Protocol details. Start: 12-16-2021 End: 11-13-2024 Warfarin 2 mg tablet Discont inued 2 mg PO MOTUWETHFR November 13, 2024 11:08am November 13, 2024 4:03pm take as directed Please contact the information source for Protocol details. Start: 09-11-2019 End: 10-27-2021 Warfarin 2 mg tablet Discont inued 2 mg PO .COMPLEX May 19, 2021 10:21am October 27, 2021 10:20am 2 mg PO; 1 tab by mouth on Sunday and Sunday or as directed Please contact the information source for Protocol details. Start: 10-10-2018 End: 06-18-2019 Warfarin 5 mg tablet Discont inued 5 mg PO .COMPLEX May 06, 2019 2:01pm June 18, 2019 9:48am 5 mg PO Mon, Tu, Weds, Thurs; take a 4 mg tablet on Fri, Sat, and Sun; Please contact the information source for Protocol details. Start: 10-10-2018 End: 06-18-2019 take 5 mg by mouth every week Warfarin 4 mg tablet Dis continued 4 mg PO .COMPLEX October 10, 2018 5:09pm October 30, 2018 3:25pm 4 mg PO Sunday, Sunday and Sunday;take a 5 mg tablet all other days of the week; Please contact the information source for Protocol details. Start: 11-14-2017 End: 10-10-2018 take 2 tablets by mouth two times weekly Warfarin 1 mg tablet Discontinued 2 mg PO TWICE A WEEK November 14, 2017 12:04pm October 10, 2018 5:04pm Please contact the information source for Protocol details. Start: 11-14-2017 End: 10-10-2018 take 2 mg by mouth two times weekly Warfarin Discontinued 2 MG PO TWICE A WEEK November 14, 2017 12:04pm October 10, 2018 5:04pm Start: 11-01-2017 End: 11-14-2017 take 1 tablet by mouth once daily Warfarin 1 mg tablet Discontinued 1 mg PO daily November 01, 2017 12:00am November 14, 2017 12:06pm Please contact the information source for Protocol details. Start: 11-01-2017 End: 10-10-2018 take 1 tablet by mouth once Warfarin (Coumadin) 3 mg t ablet Discontinued 3 mg PO .COMPLEX November 01, 2017 4:40pm October 10, 2018 5:08pm 3 mg PO 1 tablet by mouth x 1 day of the week and a 4 mg tablet by mouth x 6 days of the week; or as directed dose changes frequently Please contact the information source for Protocol details. Start: 01-25-2016 End: 04-09-2024 Warfarin 4 mg tablet Discont inued 0 mg PO .COMPLEX November 22, 2023 1:52pm April 07, 2024 11:49am orally 4mg Ajqov-Nyn-Amg-Sun, or use as directed; Please contact the information source for Protocol details. Start: 08-16-2015 End: 12-06-2023 Warfarin 5 mg tablet Discont inued 5 mg PO SUTUWETHFRSA April 30, 2020 2:33pm October 27, 2021 9:41am As directed; Please contact the information source for Protocol details. Start: 08-09-2014 End: 10-27-2015 Warfarin (Jantoven) 5 MG tab let Discontinued 4 mg PO BLOUNT August 09, 2014 1:00am October 27, 2015 7:23pm Start: 08-09-2014 End: 10-27-2015 Warfarin (Jantoven) 6 MG tab let Discontinued 5 mg PO MOTUWETHFRSA August 09, 2014 1:00am October 27, 2015 7:23pm Comment on above: As directed TAKE 1 TABLET BY MARCUS TH DAILY on sunday and sunday or as directed 100 ml zoledronic acid 0.05 mg/ml injection (20 sources) Bisphosphonate Start: 10-12-2022 End: 10-12-2022 Zoledronic Rdfm-Qxxkapbn-Zpqew 5 mg/100 mL piggyback Discontinued 0 .ROUTE ONCE October 12, 2022 10:18am October 12, 2022 10:25am 5 mg once; infuse over 20 minutes Start: 10-11-2020 End: 06-14-2022 Zoledronic Lsyc-Fmcdjynp-Wch er 5 mg/100 mL piggyback Discontinued 0 .ROUTE ONCE November 03, 2021 7:42am June 14, 2022 12:15pm 5 mg once; infuse over 20 minutes Start: 06-10-2020 End: 07-12-2020 Zoledronic Cyah-Tjrzzyho-Wqx er 5 mg/100 mL piggyback Discontinued 0 .ROUTE ONCE June 10, 2020 1:00am July 12, 2020 11:15am 5 mg once; infuse over 20 minutes zoledronic acid (RECLAST) 5 mg/100 mL pgbk PREMIX piggyback Inject 5 mg intravenously every year. Active inject 5 mg intravenously once z oledronic acid (RECLAST) 5 mg/100 mL pgbk PREMIX piggyback Inject 5 mg intravenously one time only. 0 Active Comment on above: Inject 5 mg intraven ously one time only. Problems Active Problems Problem Classification Problem Date Documented Da te Episodic/Chronic Abdominal pain (20 sources) Left lower quadrant pain; 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: [Left lower quadrant pain] 01-10-2023 Episodic Allergic reactions (20 sources) Inflammatory dermatosis; 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: [Irritant contact dermatitis, unspecified cause] Episodic Cardiac dysrhythmias (20 sources) Atrial flutter; 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: [Paroxysmal supraventricular tachycardia] Onset: 10-05-201 6 Resolved: 0 05-03-2016 Chronic Comment on above: S/P EP/RFA at [facility] 1 ; Cardiac dysrhythmias (20 sources) Palpitations; 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: [Tachycardia] Onset: 6 05-03-2016 Episodic Chronic obstructive pulmonary disease and bronchiectasis (20 sources) Chronic obstructive lung disease; 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: [Chronic obstructive pulmonary disease, unspecified] Onset: 4 Chronic Comment on above: FEV1 71% Coagulation and hemorrhagic disorders (20 sources) Blood coagulation disorder; 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] 01-15-2023 Chronic Conduction disorders (7 sources) First degree atrioventricular block; 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: [Atrioventricular block, first degree] Onset: 4 12-06-2023 Chronic Diabetes mellitus without complication (20 sources) Type 2 diabetes mellitus; 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: [Type 2 diabetes mellitus without complications] Onset: 5 06-23-2022 Chronic Comment on above: PT STATES NO LONGER DIABETIC DUE TO WEIGHT LOSS Diseases of white blood cells (6 sources) Leukocytosis; 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: [Elevated white blood cell count, unspecified] 04-20-2024 Chronic Disorders of teeth and jaw (20 sources) Infection of tooth; 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: [Periapical abscess without sinus] 11-07-2022 Episodic Esophageal disorders (20 sources) Gastroesophageal reflux disease; 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: [Gastro-esophageal reflux disease without esophagitis] Onset: 2 Chronic Comment on above: CONTROLLED WITH MED ON PROTONIX Essential hypertension (20 sources) Essential hypertension; 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: [Essential (primary) hypertension] 11-06-2016 Chronic Gout and other crystal arthropathies (20 sources) Gout; 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: [Gout, unspecified] Onset: 5 06-24-2019 Chronic Comment on above: ON MED Mycoses (20 sources) Candidiasis of mouth; 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: [Candidal stomatitis] Episodic Nutritional deficiencies (1 source) Vitamin D deficiency, unspecified; 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: [Vitamin D deficiency, unspecified] Onset: 5 Chronic Osteoporosis (20 sources) Osteoporosis; 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: [Age-related osteoporosis without current pathological fracture] Onset: 3 Chronic Other aftercare (2 sources) Drug therapy finding; 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: [Other press tender long 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 (current) drug therapy] 05-03-2016 Episodic Other aftercare (20 sources) Long-term current use of anticoagulant; 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: [FPC (current) use of anticoagulants] 11-27-2020 Episodic Other aftercare (15 sources) Long-term current use of drug therapy; 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: [Other care home (current) drug therapy] Onset: 5 05-03-2016 Episodic Other aftercare (17 sources) FPC (current) use of anticoagulants; 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: [Long-term (current) use of anticoagulants] Onset: 1 Episodic Other aftercare (1 source) Patient encounter status; 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: [Encounter for therapeutic drug level monitoring] 12-05-2023 Episodic Other aftercare (2 sources) Other care home (current) drug therapy; 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: [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] Onset: 1 Episodic Other aftercare (1 source) Encounter for therapeutic drug level monitoring; 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: [Encounter for monitoring dofetilide therapy] Onset: 5 Episodic Other and unspecified benign neoplasm (20 sources) Polyp of colon; 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: [Polyp of colon] 05-02-2022 Episodic Other and unspecified benign neoplasm (5 sources) Polyp of colon; 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: [Benign neoplasm of colon] Episodic Other circulatory disease (20 sources) History of peripheral vascular angioplasty; 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: [Peripheral vascular angioplasty status] Onset: 5 06-24-2019 Episodic Comment on above: Right common femoral 05/28/08; right external iliac artery Other circulatory disease (6 sources) H/O: atrial fibrillation; 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: [Personal history of other diseases of the circulatory system] 04-20-2024 Episodic Other circulatory disease (1 source) Personal history of other diseases of the circulatory system; 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: [Personal history of other diseases of the circulatory system] Onset: 5 Episodic Other connective tissue disease (20 sources) History of repair of hip joint; 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: [Presence of left artificial hip joint] 04-24-2021 Chronic Other connective tissue disease (14 sources) Foot pain; 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: [Pain in right foot] 08-07-2023 Episodic Other ear and sense organ disorders (20 sources) Impacted cerumen; 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: [Impacted cerumen, right ear] 04-29-2020 Episodic Other infections; including parasitic (20 sources) Infestation by Sarcoptes scabiei vivek hominis; 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: [Scabies] 09-15-2021 Episodic Other infections; including parasitic (3 sources) Scabies; 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: [Scabies] Episodic Other lower respiratory disease (20 sources) Hemoptysis; 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: [Hemoptysis] 06-11-2019 Episodic Other lower respiratory disease (20 sources) Nodule of lung; 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: [Solitary pulmonary nodule] Onset: 2 10-11-2021 Episodic Comment on above: Greater than 40 pack years quit smoking in 2020 Other lower respiratory disease (20 sources) Lung mass; 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: [Other nonspecific abnormal finding of lung field] 06-01-2021 Episodic Other lower respiratory disease (2 sources) Other nonspecific abnormal finding of lung field; 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: [Swelling, mass, or lump in chest] Onset: 5 Episodic Other lower respiratory disease (6 sources) H/O: pneumonia; 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: [Personal history of pneumonia (recurrent)] 04-20-2024 Episodic Other lower respiratory disease (19 sources) Hypoxia; 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: [Hypoxemia] 04-07-2024 Episodic Other skin disorders (20 sources) Sebaceous cyst of skin; 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: [Sebaceous cyst] 11-15-2022 Episodic Other skin disorders (20 sources) Sebaceous cyst; 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: [Sebaceous cyst] 11-15-2022 Episodic Phlebitis; thrombophlebitis and thromboembolism (20 sources) H/O: Deep vein thrombosis; 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: [Personal history of other venous thrombosis and embolism] 06-24-2019 Episodic Comment on above: 2008 Pulmonary heart disease (15 sources) Pulmonary hypertension; 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: [Pulmonary hypertension, unspecified] Onset: 5 07-16-2024 Chronic Comment on above: RVSP 42 mmHg Residual codes; unclassified (14 sources) Obstructive sleep apnea syndrome; 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: [Obstructive sleep apnea (adult) (pediatric)] Onset: 5 10-15-2024 Chronic Residual codes; unclassified (6 sources) Sleep apnea; 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: [Sleep apnea, unspecified] 08-14-2024 Chronic Residual codes; unclassified (8 sources) Daytime hypersomnia; 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: [Hypersomnia, unspecified] Onset: 5 07-16-2024 Chronic Residual codes; unclassified (2 sources) Obstructive sleep apnea (adult) (pediatric); 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: [Obstructive sleep apnea] Onset: 5 Chronic Residual codes; unclassified (1 source) Hypersomnia, unspecified; 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: [Hypersomnia, unspecified] Onset: 5 Chronic Residual codes; unclassified (1 source) At risk of disease; 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: [At risk for stroke] 05-08-2018 Respiratory failure; insufficiency; arrest (adult) (7 sources) Fnpkk-qn-eslwsfu respiratory failure; 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: [Acute and chronic respiratory failure with hypoxia] Onset: 4 05-24-2024 Chronic Substance-related disorders (20 sources) Tobacco dependence syndrome; 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: [Nicotine dependence, unspecified, uncomplicated] Onset: 4 Chronic Superficial injury; contusion (20 sources) Right lower leg contusion; 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: [Contusion of right lower leg, initial encounter] Episodic Syncope (20 sources) Near syncope; 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: [Syncope and collapse] 06-19-2019 Episodic Thyroid disorders (1 source) Hypothyroidism, unspecified; 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: [Hypothyroidism, unspecified] Onset: 5 Chronic Unclassified (2 sources) Drug therapy finding; 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: [On care home drug therapy] 05-03-2016 Unclassified (1 source) Long-term current use of drug therapy; 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: [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] 05-03-2016 Unclassified (1 source) Other persistent atrial fibrillation; 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: [Persistent atrial fibrillation (HCC)] Onset: 7 Past or Other Problems Problem Classification Problem Date Documented Date Episodic/Chronic Diabetes mellitus without complication (1 source) Impaired fasting glucose; 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: [Impaired fasting glucose] Onset: 04-04-2024 Episodic Fluid and electrolyte disorders (20 sources) Hypokalemia; 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: [Hypokalemia] Onset: 06-29-2024 10-31-2022 Episodic Other lower respiratory disease (20 sources) Solitary pulmonary nodule; 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: [Solitary pulmonary nodule] Onset: 04-09-2024 Episodic Other lower respiratory disease (1 source) Hypoxemia; 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: [Hypoxemia] Onset: 06-09-2024 Episodic Other lower respiratory disease (1 source) Hemoptysis; 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: [Hemoptysis] Onset: 04-15-2024 Episodic Other screening for suspected conditions (not mental disorders or infectious disease) (20 sources) INR raised; 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: [Abnormal coagulation profile] Onset: 04-15-2024 08-11-2022 Episodic Pneumonia (except that caused by tuberculosis or sexually transmitted disease) (14 sources) Pneumonia; 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: [Pneumonia, unspecified organism] Onset: 05-27-2024 04-07-2024 Episodic Residual codes; unclassified (10 sources) Other specified personal risk factors, not elsewhere classified; 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: [Other specified personal history presenting hazards to health] Onset: 05-08-2018 05-08-2018 Episodic Residual codes; unclassified (20 sources) History of radiofrequency ablation operation for arrhythmia; 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: [Other specified postprocedural states] Onset: 07-30-2007 10-27-2021 Episodic Comment on above: At [facility] in April 30 008; Residual codes; unclassified (15 sources) Other specified postprocedural states; 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: [Personal history of surgery to heart and great vessels, presenting hazards to health] Onset: 07-30-2007 Episodic Results Test Name Value Interpretation Reference Range Facility Bedside Glucoseon 12-30-2024 FINGERSTICK GLU 91 mg/dL Normal 74-106 [facility] Comment on above: Result Comment: KRZYSZTOF LOWE OF PATIENT CARE PER NURSING PROTOCOL Performed By: #### L 501.080 ####[facility] [id number] [place], [place], [id number] EGD Reporton 12-30-2024 EGD Report Normal [facility] MR/POSTOP.ANEon 12-30-2024 MR/POSTOP.ANE Normal [facility] MR/MQOOIXDB2ze 12-30-2024 MR/POSTOPAN2 Normal [facility] Protime w/INR Fingerstickon 12-30-2024 INR Coag (PPP) [Relative time] 1.1 {INR} Normal [facility] Comment on above: Result Comment: Crit ical Value > 4.0 Performed By: #### L 9200.0000 ####[facility] [id number] [place], [place], [id number] Protime Coagsen 13.1 SEC Normal 11.7-14.9 [facility] Comment on above: Performed By: #### L [id number] ####[facility] [id number] [place], [place], [id number] Surgery Specimen Level Vani 12-30-2024 Surgery Specimen Level IV Normal [facility] Comment on above: Performed By: #### P SUIV ####[facility] [id number] [place], [place], [id number] MR/PAT.ANEon 12-29-2024 MR/PAT.ANE Normal [facility] MR/PAT.ANEon 12-26-2024 MR/PAT.ANE Normal [facility] MR/PAT.ANEon 12-25-2024 MR/PAT.ANE Normal [facility] Anion gap in Serum or Plasma Ordered By: Rodríguez Portillo on 12-16-2024 Anion gap [Moles/Vol] 11 mmol/L 5- [facility] BUN/creatinine ratioOrdered By: Rodríguez Portillo on 12-16-2024 Urea nitrogen/Creatinine [Mass ratio] 11.1 mg/mg 05-18 [facility] Bilirubin, totalOrdered By: Rodríguez Portillo on 12-16-2024 Bilirubin [Mass/Vol] 0.48 mg/dL 0.00-1.30 [facility] Carbon dioxide, total [Moles /volume] in Central venous bloodOrdered By: Rodríguez Portillo on 12-16-2024 CO2 [Moles/Vol] 23.1 mmol/L 21.0-32.0 [facility] Chloride assayOrdered By: Kash Portillo on 12-16-2024 Chloride [Moles/Vol] 100 mmol/L 98-108 [facility] Comprehensive Metabolic Prof ilon 12-16-2024 Albumin [Mass/Vol] 4.1 g/dL Normal 3.4-4.8 [facility] Comment on above: Performed By: #### L 506.1001, L500.4050 ####[facility] [address] [place], [address] Albumin/Globulin [Mass ratio] 1.3 {ratio} Normal 0.9-2.4 [facility] Comment on above: Performed By: #### L 506.1001, L500.4050 ####[facility] [address] [place], [address] ALK PHOS 73 U/L Normal 40-129 [facility] Comment on above: Performed By: #### L 506.1001, L500.4050 ####[facility] [address] [place], [address] ALT [Catalytic activity/Vol] 14 U/L Normal <=46 [facility] Comment on above: Performed By: #### L 506.1001, L500.4050 ####[facility] [address] [place], [address] AST [Catalytic activity/Vol] 20 U/L Normal <=37 [facility] Comment on above: Performed By: #### L 506.1001, L500.4050 ####[facility] [address] [place], [address] Bilirubin [Mass/Vol] 0.48 mg/dL Normal 0.00-1.30 [facility] Comment on above: Performed By: #### L 506.1001, L500.4050 ####[facility] [address] [place], [address] BUN/CRE 11.1 RATIO Normal 10-20 [facility] Comment on above: Performed By: #### L 506.1001, L500.4050 ####[facility] [address] [place], [address] Calcium [Mass/Vol] 8.5 mg/dL Normal 7.6-11.0 [facility] Comment on above: Performed By: #### L 506.1001, L500.4050 ####[facility] [address] [place], [address] Chloride [Moles/Vol] 100 mmol/L Normal 98-108 [facility] Comment on above: Performed By: #### L 506.1001, L500.4050 ####[facility] [address] [place], [address] CO2 [Moles/Vol] 23.1 mmol/L Normal 21.0-32.0 [facility] Comment on above: Performed By: #### L 506.1001, L500.4050 ####[facility] [address] [place], [address] Creatinine [Mass/Vol] 1.15 mg/dL Normal 0.70-1.20 [facility] Comment on above: Performed By: #### L 506.1001, L500.4050 ####[facility] [address] [place], [address] GAP 11 Normal 5-15 [facility] Comment on above: Performed By: #### L 506.1001, L500.4050 ####[facility] [address] [place], [address] GFR/1.73 sq M.predicted among non-blacks MDRD (S/P/Bld) [Vol rate/Area] 69 mL/min/{1.73_m2} Normal >60 [facility] Comment on above: Result Comment: mL/m in/1.73m2 CKD-EPI Creatinine Equation (2020) Performed By: #### L 506.1001, L500.4050 ####[facility] [address] [place], [address] Globulin (S) [Mass/Vol] 3.1 g/dL Normal 2.2-4.2 [facility] Comment on above: Performed By: #### L 506.1001, L500.4050 ####[facility] [address] [place], [address] Glucose [Mass/Vol] 94 mg/dL Normal 70-99 [facility] Comment on above: Performed By: #### L 506.1001, L500.4050 ####[facility] [address] [place], [address] Potassium [Moles/Vol] 4.1 mmol/L Normal 3.3-5.1 [facility] Comment on above: Performed By: #### L 506.1001, L500.4050 ####[facility] [address] [place], [address] Sodium [Moles/Vol] 134 mmol/L Normal 133-145 [facility] Comment on above: Performed By: #### L 506.1001, L500.4050 ####[facility] [address] [place], [address] T PROT 7.3 g/dL Normal 5.9-8.4 [facility] Comment on above: Performed By: #### L 506.1001, L500.4050 ####[facility] [address] [place], [address] Urea nitrogen [Mass/Vol] 13 mg/dL Normal 4-19 [facility] Comment on above: Performed By: #### L 506.1001, L500.4050 ####[facility] [address] [place], [address] Glomerular filtration rate ( GFR) estimation/1.73 sq m using serum, plasma, or whole bOrdered By: Rodríguez Portillo on 12-16-2024 GFR/1.73 sq M.predicted among non-blacks MDRD (S/P/Bld) [Vol rate/Area] 69 mL/min/{1.73_m2} >60 [facility] Comment on above: mL/min/1.73m2 CKD-EP I Creatinine Equation (2020) International normalized rat io (INR) calculationOrdered By: Franky Galloway on 12-16-2024 INR Coag (Bld) [Relative time] 2.2 {INR} [facility] Laboratory - Chemistry and C hemistry - challengeOrdered By: Rodríguez Portillo on 12-16-2024 AST [Catalytic activity/Vol] 20 U/L <38 [facility] Potassium measurement (mass/ volume)Ordered By: Rodríguez Portillo on 12-16-2024 Potassium (Unsp spec) [Mass/Vol] 4.1 mmol/L 3.3-5.1 [facility] Prothrombin Time w/INRon INR Coag (PPP) [Relative time] 2.2 {INR} Normal [facility] Comment on above: Performed By: #### L 300.3900 ####[facility] [address] [place], [place], [phone]) PT Coag (PPP) [Time] 25.3 s High 11.7-14.9 [facility] Comment on above: Performed By: #### L 300.3900 ####[facility] [address] [place], [place], [phone]) Prothrombin timeOrdered By: Franky Galloway on 12-16-2024 PT Coag (PPP) [Time] 25.3 s High 11.7-14.9 [facility] Serum creatinine measurement (mass/volume)Ordered By: Rodríguez Portillo on 12-16-2024 Creatinine [Mass/Vol] 1.15 mg/dL 0.70-1.20 [facility] Serum globulin measurementOr dered By: Rodríguez Portillo on 12-16-2024 Globulin (S) [Mass/Vol] 3.1 g/dL 2.2-4.2 [facility] Serum glucose measurement (m ass/volume)Ordered By: Rodríguez Portillo on 12-16-2024 Glucose [Mass/Vol] 94 mg/dL 70-99 [facility] Serum or plasma alanine duncan otransferase (ALT) measurementOrdered By: Rodríguez Portillo on 12-16-2024 ALT [Catalytic activity/Vol] 14 U/L <47 [facility] Serum or plasma albumin alfa urement (mass/volume)Ordered By: Rodríguez Portillo on 12-16-2024 Albumin [Mass/Vol] 4.1 g/dL 3.4-4.8 [facility] Serum or plasma albumin/glob ulin mass ratioOrdered By: Rodríguez Portillo on 12-16-2024 Albumin/Globulin [Mass ratio] 1.3 {ratio} 0.9-2.4 [facility] Serum or plasma alkaline dora sphatase measurementOrdered By: Rodríguez Portillo on 12-16-2024 ALP [Catalytic activity/Vol] 73 U/L 40-129 [facility] Serum or plasma calcium alfa urement (mass/volume)Ordered By: Rodríguez Portillo on 12-16-2024 Calcium [Mass/Vol] 8.5 mg/dL 7.6-11.0 [facility] Serum or plasma urea nitroge n measurement (mass/volume)Ordered By: Rodríguez Portillo on 12-16-2024 Urea nitrogen [Mass/Vol] 13 mg/dL 4-19 [facility] Sodium levelOrdered By: Rodríguez Portillo on 12-16-2024 Sodium [Moles/Vol] 134 mmol/L 133-145 [facility] Total proteinOrdered By: Cuong Portillo on 12-16-2024 Protein [Mass/Vol] 7.3 g/dL 5.9-8.4 [facility] Vitamin D,25 Hydroxyon 12-16 Vitamin D 25-OH 34.9 ng/mL Normal 30-100 [facility] Comment on above: Result Comment: Marie min D StatusDeficiency: <20 ng/mL (50nmol/L)Insufficiency: 20-30 ng/mL (50-75 nmol/L)Sufficiency: 30-100 ng/mL (75-250 nmol/L)Toxicity: >100 ng/mL (>250 nmol/L) Performed By: #### L 506.1001, L500.4050 ####[facility] [address] [place], [address] 12 Lead EKG performed by [facility] on 12-09-2024 12 Lead EKG performed by [facility] Normal [facility] Cardiology Visit Reporton Cardiology Visit Report Normal [facility] Endocrinology Visit Reporton 12-09-2024 Endocrinology Visit Report Normal [facility] International normalized rat io (INR) calculationOrdered By: Franky Galloway on 12-09-2024 INR Coag (Bld) [Relative time] 3.4 {INR} [facility] Laboratory - Hematology and Cell countsOrdered By: Rodríguez Portillo on 12-09-2024 HbA1c (Bld) [Mass fraction] 5.3 % 4.2-6.3 [facility] Prothrombin Time w/INRon INR Coag (PPP) [Relative time] 3.4 {INR} Normal [facility] Comment on above: Performed By: #### L 300.3900 ####[facility] [address] [place], [address] PT Coag (PPP) [Time] 34.9 s High 11.7-14.9 [facility] Comment on above: Performed By: #### L 300.3900 ####[facility] [address] [place], [address] Prothrombin timeOrdered By: Franky Galloway on 12-09-2024 PT Coag (PPP) [Time] 34.9 s High 11.7-14.9 [facility] CNOVon 12-04-2024 CNOV Office Visit (AGCARDPOB) ROGER MART ([id number]) 1955 M Date Time Provider Department 12/04/24 9:00 AM DWAYNE WELLS During your visit today, we recorded the following information about you: Pulse Respiration Blood pressure Weight 64/minute 18/minute 120/64 73.9 kg Height 1.702 m Mis Ng MA 12/04/2024 9:41 AM Signed Patient complains of high rate of pulse was recently visit for the same thing . Dwayne Wells MD 12/04/2024 9:41 AM Signed PRIMARY CARE PHYSICIAN: Adriel Chavez [address] [place] [address] Patient Care Team: Adriel Khan MD as PCP - General (Internal Medicine) Dwayne Wells MD as Specialty Machine Quilt Stuffer (Cardiology) Tray Santiago MD as Specialty Machine Quilt Stuffer (Cardiology) Pablo Pichardo DO as Specialty Machine Quilt Stuffer (Gastroenterology) Dash Uriarte as Specialty Machine Quilt Stuffer (Pulmonary Disease) Franky Galloway APRN.CNP as Nurse Practitioner (Cardiology) CHIEF COMPLAINT: Follow up for arrhythmia HISTORY OF PRESENT ILLNESS: Mr. Mart is a 69 year old male who presents today for a cardiovascular medicine follow-up visit. Recording using ambient AI software for draft documentation of the visit was discussed with the patient/authorized development representative; all questions welcomed and answered. Patient/authorized development representative agreed to proceed History from previous notes, edited as needed and/or generated by dictation with use of AI.: Patient Overview: Mr. Mart has a long history of atrial fibrillation, likely since the . Initially, it was symptomatic and refractory to medical therapy. In 2007, he underwent atrial fibrillation catheter ablation at [facility], which was complicated by an acute DVT of the right iliac vein. 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 For several years, he was minimally symptomatic with appropriate ventricular rate control, but antiarrhythmic drugs, including flecainide, were ineffective. In 2014, his atrial fibrillation became more bothersome, and he was treated with dofetilide and underwent electrical cardioversion on September 10, 2014. Despite this, he experienced recurrent atrial fibrillation and underwent a redo catheter ablation in September 2015 at [facility], which also targeted multiple atypical left atrial arrhythmias. He did well for several years but developed recurrent atrial fibrillation in 2022, associated with severe symptoms, including palpitations and shortness of breath. The arrhythmia spontaneously converted, and his diltiazem dosage was increased. Since then, he has been doing reasonably well. At an office follow-up on December 06, 2023, with Dr. Mao MD, he reported doing well and was not aware of much, if any, recurrent arrhythmia. Diagnostic Results: - EKG (December 06, 2023): - Sinus rhythm with an appropriate QTC interval on dofetilide - Progression of first-degree AV block (asymptomatic) Interim History Dr. Wells 12/04/2024: The patient is a 69-year-old male with a history of atrial fibrillation, presenting for evaluation of recent tachycardia. The patient reports a long-standing history of atrial fibrillation dating back to the 1980s. Initially, his atrial fibrillation was symptomatic and refractory to medical therapy, leading to a catheter ablation at [facility] in 2007. This procedure was complicated by an acute DVT of the right iliac vein, which was resistant to thrombolysis and angioplasty. Collateral circulation eventually developed, alleviating lower extremity swelling. He experienced recurrent atrial fibrillation and was minimally symptomatic with appropriate ventricular rate control. Antiarrhythmic drugs, including flecainide, were ineffective. In 2014, his atrial fibrillation became more bothersome, and he noted feeling better in sinus rhythm. He was treated with dofetilide and underwent electrical cardioversion on 09/10/2014. Despite this, he experienced recurrent atrial fibrillation and underwent a redo catheter ablation in 09/2015 at [facility], which targeted multiple atypical left atrial arrhythmias, including atrial tachycardias and atrial flutters. Post-procedure, he had some recurrence of arrhythmia and was treated again with dofetilide, after which he did well for several years. In 2022, he developed recurrent atrial fibrillation associated with severe symptoms, including palpitations and dyspnea. The arrhythmia spontaneously converted, and his diltiazem dosage was increased. Since then, he has been doing reasonably well. At an office follow-up on 12/06/[address] Wells, he reported minimal awareness of rec (more content not included)... Normal [facility] ECG B/O W INTERP (MED OFFICE )on 12-04-2024 Interpretation and review of laboratory results Abnormal [facility] Atypical atrial flutter with average ventricular response 104 bpm generally 2-1 AV conduction with some variability; normal QRS duration 80 ms; QTc 449 ms, appropriate on dofetilide 500 mcg twice daily [facility] Prothrombin Time w/INRon INR Coag (PPP) [Relative time] 2.2 {INR} Normal [facility] Comment on above: Performed By: #### L 300.3900 ####[facility] [address] [place], [address] PT Coag (PPP) [Time] 24.5 s High 11.7-14.9 [facility] Comment on above: Performed By: #### L 300.3900 ####[facility] [address] [place], [place], [id number] 12 Lead EKGon 11-25-2024 12 Lead EKG Normal [facility] Absolute lymphocyte countOrd ered By: Gagandeep Arechiga on 11-25-2024 Lymphocytes Auto (Unsp spec) [#/Vol] 2.07 10*3/uL 0.83-4.51 [facility] Absolute neutrophil countOrd ered By: Gagandeep Arechiga on 11-25-2024 Neutrophils (Bld) [#/Vol] 6.6 10*3/uL 2.0-7.7 [facility] Activated partial thrombopla stin time (aPTT) in platelet poor plasma by coagulation aOrdered By: Gagandeep Arechiga on 11-25-2024 aPTT Coag (PPP) [Time] 50.8 s High 24.1-36.2 [facility] Anion gap in Serum or Plasma Ordered By: Gagandeep Arechiga on 11-25-2024 Anion gap [Moles/Vol] 14 mmol/L 5-15 [facility] Automated lymphocyte count a s percentage of total leukocytesOrdered By: Gagandeep Arechiga on 11-25-2024 Lymphocytes/100 WBC Auto (Unsp spec) 21.1 % 19-41 [facility] BUN/creatinine ratioOrdered By: Gagandeep Arechiga on 11-25-2024 Urea nitrogen/Creatinine [Mass ratio] 13.9 mg/mg 10- [facility] Basic Metabolic Profile (BMP )on 11-25-2024 BUN/CRE 13.9 RATIO Normal - [facility] Comment on above: Performed By: #### L 500.2500, L100.0100, L501.4021 ####[facility] [address] [place], [address] Calcium [Mass/Vol] 9.7 mg/dL Normal 7.6-11.0 [facility] Comment on above: Performed By: #### L 500.2500, L100.0100, L501.4021 ####[facility] [address] [place], [address] Chloride [Moles/Vol] 100 mmol/L Normal 98-108 [facility] Comment on above: Performed By: #### L 500.2500, L100.0100, L501.4021 ####[facility] [address] [place], [address] CO2 [Moles/Vol] 26.0 mmol/L Normal 21.0-32.0 [facility] Comment on above: Performed By: #### L 500.2500, L100.0100, L501.4021 ####[facility] [address] [place], [address] Creatinine [Mass/Vol] 1.32 mg/dL High 0.70-1.20 [facility] Comment on above: Performed By: #### L 500.2500, L100.0100, L501.4021 ####[facility] [address] [place], [address] ECRCL 52.82 ml/min Normal 50-250 [facility] Comment on above: Performed By: #### L 500.2500, L100.0100, L501.4021 ####[facility] [address] [place], [address] GAP 14 Normal 5-15 [facility] Comment on above: Performed By: #### L 500.2500, L100.0100, L501.4021 ####[facility] [address] [place], [address] GFR/1.73 sq M.predicted among non-blacks MDRD (S/P/Bld) [Vol rate/Area] 58 mL/min/{1.73_m2} Low >60 [facility] Comment on above: Result Comment: mL/m in/1.73m2 CKD-EPI Creatinine Equation (2020) Performed By: #### L 500.2500, L100.0100, L501.4021 ####[facility] [address] [place], [address] Glucose [Mass/Vol] 84 mg/dL Normal 70-99 [facility] Comment on above: Performed By: #### L 500.2500, L100.0100, L501.4021 ####[facility] [address] [place], [address] Potassium [Moles/Vol] 4.0 mmol/L Normal 3.3-5.1 [facility] Comment on above: Performed By: #### L 500.2500, L100.0100, L501.4021 ####[facility] [address] [place], [address] Sodium [Moles/Vol] 140 mmol/L Normal 133-145 [facility] Comment on above: Performed By: #### L 500.2500, L100.0100, L501.4021 ####[facility] [address] [place], [address] Urea nitrogen [Mass/Vol] 18 mg/dL Normal 4-19 [facility] Comment on above: Performed By: #### L 500.2500, L100.0100, L501.4021 ####[facility] [address] [place], [address] Basophil percentageOrdered B y: Gagandeep Arechiga on 11-25-2024 Basophils/100 WBC (Bld) 0.8 % 0-1 [facility] CBC W/Diff, Automatedon -2 Absolute Lymph 2.07 X10 3/uL Normal 0.83-4.51 [facility] Comment on above: Performed By: #### L 500.2500, L100.0100, L501.4021 ####[facility] [address] [place], [address] Absolute Neut 6.6 X10 3/uL Normal 2.0-7.7 [facility] Comment on above: Performed By: #### L 500.2500, L100.0100, L501.4021 ####[facility] [address] [place], [address] Basophils/100 WBC (Bld) 0.8 % Normal 0-1 [facility] Comment on above: Performed By: #### L 500.2500, L100.0100, L501.4021 ####[facility] [address] [place], [address] Eosinophils/100 WBC (Bld) 1.4 % Normal 0-5 [facility] Comment on above: Performed By: #### L 500.2500, L100.0100, L501.4021 ####[facility] [address] [place], [address] Erythrocyte distribution width (RBC) [Ratio] 17.1 % High 11.6-14.6 [facility] Comment on above: Performed By: #### L 500.2500, L100.0100, L501.4021 ####[facility] [address] [place], [address] Hematocrit (Bld) [Volume fraction] 42.6 % Normal 40-54 [facility] Comment on above: Performed By: #### L 500.2500, L100.0100, L501.4021 ####[facility] [address] [place], [address] Hemoglobin (Bld) [Mass/Vol] 14.2 g/dL Normal 13.0-16.5 [facility] Comment on above: Performed By: #### L 500.2500, L100.0100, L501.4021 ####[facility] [address] [place], [address] IG% 0.500 Normal 0.0-0.9 [facility] Comment on above: Result Comment: IG% - Immature Granulocytes (promyelocytes, myelocytes andmetamyelocytes) > 1% indicates that a LEFT SHIFT is Present. Performed By: #### L 500.2500, L100.0100, L501.4021 ####[facility] [address] [place], [address] Lymphocytes/100 WBC (Bld) 21.1 % Normal 19-41 [facility] Comment on above: Performed By: #### L 500.2500, L100.0100, L501.4021 ####[facility] [address] [place], [address] MCH (RBC) [Entitic mass] 29.5 pg Normal 27.0-32.0 [facility] Comment on above: Performed By: #### L 500.2500, L100.0100, L501.4021 ####[facility] [address] [place], [address] MCHC (RBC) [Mass/Vol] 33.3 g/dL Normal 32-36 [facility] Comment on above: Performed By: #### L 500.2500, L100.0100, L501.4021 ####[facility] [address] [place], [address] MCV (RBC) [Entitic vol] 88.4 fL Normal 80-94 [facility] Comment on above: Performed By: #### L 500.2500, L100.0100, L501.4021 ####[facility] [address] [place], [address] Monocytes/100 WBC (Bld) 8.7 % Normal 0-10 [facility] Comment on above: Performed By: #### L 500.2500, L100.0100, L501.4021 ####[facility] [address] [place], [address] Neutrophils/100 WBC (Bld) 67.5 % Normal 47-70 [facility] Comment on above: Performed By: #### L 500.2500, L100.0100, L501.4021 ####[facility] [address] [place], [address] Nucleated RBC (Bld) [#/Vol] 0 10*3/uL Normal 0-5 [facility] Comment on above: Performed By: #### L 500.2500, L100.0100, L501.4021 ####[facility] [address] [place], [address] Platelet mean volume (Bld) [Entitic vol] 9.8 fL Normal 6.2-12.0 [facility] Comment on above: Performed By: #### L 500.2500, L100.0100, L501.4021 ####[facility] [address] [place], [address] Platelets (Bld) [#/Vol] 302 10*3/uL Normal 150-450 [facility] Comment on above: Performed By: #### L 500.2500, L100.0100, L501.4021 ####[facility] [address] [place], [address] RBC (Bld) [#/Vol] 4.82 10*6/uL Normal 4.6-6.2 [facility] Comment on above: Performed By: #### L 500.2500, L100.0100, L501.4021 ####[facility] [address] [place], [address] RDW SD 54.5 fl High 35.1-43.9 [facility] Comment on above: Performed By: #### L 500.2500, L100.0100, L501.4021 ####[facility] [address] [place], [place], [id number] WBC (Bld) [#/Vol] 9.8 10*3/uL Normal 4.4-11.0 [facility] Comment on above: Performed By: #### L 500.2500, L100.0100, L501.4021 ####[facility] [address] [place], [address] Carbon dioxide, total [Moles /volume] in Central venous bloodOrdered By: Gagandeep Arechiga on 11-25-2024 CO2 [Moles/Vol] 26.0 mmol/L 21.0-32.0 [facility] Chest 1 View (Portable)on Chest 1 View (Portable) Normal [facility] Chloride assayOrdered By: Colby Arechiga on 11-25-2024 Chloride [Moles/Vol] 100 mmol/L 98-108 [facility] D-Dimer Quantitative (DVT/PE )on 11-25-2024 D-DIMER QUANT < 0.27 Low 0.27-0.49 [facility] Comment on above: Result Comment: NORM AL D-Dimer level (<0.50) indicates no DVT or PE. Performed By: #### L 300.8000 ####[facility] [address] [place], [place], [id number] Emergency Department Summary on 11-25-2024 Emergency Department Summary Normal [facility] Eosinophil percentageOrdered By: Gagandeep Arechiga on 11-25-2024 Eosinophils/100 WBC (Bld) 1.4 % 0-5 [facility] Erythrocyte distribution wid th ratioOrdered By: Gagandeep Arechiga on 11-25-2024 Erythrocyte distribution width (RBC) [Ratio] 17.1 % High 11.6-14.6 [facility] Erythrocyte distribution wid th standard deviationOrdered By: Gagandeep Arechiga on 11-25-2024 Erythrocyte distribution width (RBC) [Ratio] 54.5 fl High 35.1-43.9 [facility] Glomerular filtration rate ( GFR) estimation/1.73 sq m using serum, plasma, or whole bOrdered By: Gagandeep Arechiga on 11-25-2024 GFR/1.73 sq M.predicted among non-blacks MDRD (S/P/Bld) [Vol rate/Area] 58 mL/min/{1.73_m2} Low >60 [facility] Comment on above: mL/min/1.73m2 CKD-EP I Creatinine Equation (2020) Hematocrit Auto (Bld) [Volum e fraction]Ordered By: Gagandeep Arechiga on 11-25-2024 Hematocrit (Bld) [Volume fraction] 42.6 % 40-54 [facility] Hemoglobin measurementOrdere d By: Gagandeep Arechiga on 11-25-2024 Hemoglobin (Bld) [Mass/Vol] 14.2 g/dL 13.0-16.5 [facility] Immature granulocytes/100 WB C Auto (Bld)Ordered By: Gagandeep Arechiga on 11-25-2024 Immature granulocytes/100 WBC (Bld) 0.500 % 0.0-0.9 [facility] Comment on above: IG% - Immature Granu locytes (promyelocytes, myelocytes and metamyelocytes) > 1% indicates that a LEFT SHIFT is Present. International normalized rat io (INR) calculationOrdered By: Gagandeep Arechiga on 11-25-2024 INR Coag (Bld) [Relative time] 2.4 {INR} [facility] L499.0042on 11-25-2024 Trop T High Sen 22 ng/L Normal <=22 [facility] Comment on above: Performed By: #### L 499.0042 ####[facility] [address] [place], [address] L499.0043on 11-25-2024 Trop T High Sen Normal <=22 [facility] Comment on above: Result Comment: Canc elled via OM: Order cancelled - Patient discharged Performed By: #### L 499.0043 ####[facility] [address] [place], [place], [address] L501.4021on 11-25-2024 Trop T High Sen 24 ng/L High <=22 [facility] Comment on above: Performed By: #### L 500.2500, L100.0100, L501.4021 ####[facility] [address] [place], [place], [phone] MCV (mean corpuscular volume ) determinationOrdered By: Gagandeep Arechiga on 11-25-2024 MCV (RBC) [Entitic vol] 88.4 fL 80-94 [facility] Mean corpuscular hemoglobin (MCH) determinationOrdered By: Gagandeep Arechiga on 11-25-2024 MCH (RBC) [Entitic mass] 29.5 pg 27.0-32.0 [facility] Mean corpuscular hemoglobin concentration (MCHC) determinationOrdered By: Gagandeep Arechiga on 11-25-2024 MCHC (RBC) [Mass/Vol] 33.3 g/dL 32-36 [facility] Mean platelet volume determi nationOrdered By: Gagandeep Arechiga on 11-25-2024 Platelet mean volume (Bld) [Entitic vol] 9.8 fL 6.2-12.0 [facility] Monocyte percentageOrdered B y: Gagandeep Arechiga on 11-25-2024 Monocytes/100 WBC (Bld) 8.7 % 0-10 [facility] Neutrophil percentageOrdered By: Gagandeep Arechiga on 11-25-2024 Neutrophils/100 WBC (Bld) 67.5 % 47-70 [facility] Nucleated red blood cell per centageOrdered By: Gagandeep Arechiga on 11-25-2024 Nucleated RBC/100 WBC (Bld) [Ratio] 0 % 0-5 [facility] Partial Thromboplast Timeon 11-25-2024 aPTT Coag (Bld) [Time] 50.8 s High 24.1-36.2 [facility] Comment on above: Performed By: #### L 300.3900, L300.4310 ####[facility] [address] [place], [address] Platelet countOrdered By: Colby Arechiga on 11-25-2024 Platelets (Bld) [#/Vol] 302 10*3/uL 150-450 [facility] Potassium measurement (mass/ volume)Ordered By: Gagandeep Arechiga on 11-25-2024 Potassium (Unsp spec) [Mass/Vol] 4.0 mmol/L 3.3-5.1 [facility] Prothrombin Time w/INRon INR Coag (PPP) [Relative time] 2.4 {INR} Normal [facility] Comment on above: Performed By: #### L 300.3900, L300.4310 ####[facility] [address] [place], [address] PT Coag (PPP) [Time] 26.4 s High 11.7-14.9 [facility] Comment on above: Performed By: #### L 300.3900, L300.4310 ####[facility] [address] [place], [address] Prothrombin timeOrdered By: Gagandeep Arechiga on 11-25-2024 PT Coag (PPP) [Time] 26.4 s High 11.7-14.9 [facility] RBC Auto (Bld) [#/Vol]Ordere d By: Gagandeep Arechiga on 11-25-2024 RBC (Bld) [#/Vol] 4.82 10*6/uL 4.6-6.2 [facility] Serum creatinine measurement (mass/volume)Ordered By: Gagandeep Arechiga on 11-25-2024 Creatinine [Mass/Vol] 1.32 mg/dL High 0.70-1.20 [facility] Serum glucose measurement (m ass/volume)Ordered By: Gagandeep Arechiga on 11-25-2024 Glucose [Mass/Vol] 84 mg/dL 70-99 [facility] Serum or plasma calcium alfa urement (mass/volume)Ordered By: Gagandeep Arechiga on 11-25-2024 Calcium [Mass/Vol] 9.7 mg/dL 7.6-11.0 [facility] Serum or plasma urea nitroge n measurement (mass/volume)Ordered By: Gagandeep Arechiga on 11-25-2024 Urea nitrogen [Mass/Vol] 18 mg/dL 4-19 [facility] Sodium levelOrdered By: Gagandeep Arechiga on 11-25-2024 Sodium [Moles/Vol] 140 mmol/L 133-145 [facility] Troponin T.cardiac [Mass/vol ume] in Serum or Plasma by High sensitivity methodOrdered By: Gagandeep Arechiga on 11-25-2024 Troponin T.cardiac High sensitivity method [Mass/Vol] 22 ng/L <22 [facility] Troponin T.cardiac High sensitivity method [Mass/Vol] 24 ng/L High <22 [facility] White blood cell (WBC) count Ordered By: Gagandeep Arechiga on 11-25-2024 WBC (Bld) [#/Vol] 9.8 10*3/uL 4.4-11.0 [facility] International normalized rat io (INR) calculationOrdered By: Franky Galloway on 11-24-2024 INR Coag (Bld) [Relative time] 1.7 {INR} [facility] Prothrombin Time w/INRon INR Coag (PPP) [Relative time] 1.7 {INR} Normal [facility] Comment on above: Performed By: #### L 300.3900 ####[facility] [address] [place], [place], [phone] PT Coag (PPP) [Time] 20.0 s High 11.7-14.9 [facility] Comment on above: Performed By: #### L 300.3900 ####[facility] [address] [place], [address] Prothrombin timeOrdered By: Franky Galloway on 11-24-2024 PT Coag (PPP) [Time] 20.0 s High 11.7-14.9 [facility] Prothrombin Time w/INRon INR Coag (PPP) [Relative time] 1.9 {INR} Normal [facility] Comment on above: Order Comment: Comme nts: STANDING ORDER Performed By: #### L 300.3900 ####[facility] [address] [place], [address] PT Coag (PPP) [Time] 22.0 s High 11.7-14.9 [facility] Comment on above: Order Comment: Comme nts: STANDING ORDER Performed By: #### L 300.3900 ####[facility] [address] [place], [address] Prothrombin Time w/INRon INR Coag (PPP) [Relative time] 1.7 {INR} Normal [facility] Comment on above: Performed By: #### L 300.3900 ####[facility] [address] [place], [address] PT Coag (PPP) [Time] 19.8 s High 11.7-14.9 [facility] Comment on above: Performed By: #### L 300.3900 ####[facility] [address] [place], [address] Prothrombin Time w/INRon INR Coag (PPP) [Relative time] 1.8 {INR} Normal [facility] Comment on above: Performed By: #### L 300.3900 ####[facility] [address] [place], [address] PT Coag (PPP) [Time] 21.2 s High 11.7-14.9 [facility] Comment on above: Performed By: #### L 300.3900 ####[facility] [address] [place], [address] Pulmonary Visit Reporton Pulmonary Visit Report Normal [facility] International normalized rat io (INR) calculationOrdered By: Franky Galloway on 10-13-2024 INR Coag (Bld) [Relative time] 1.4 {INR} [facility] Prothrombin Time w/INRon INR Coag (PPP) [Relative time] 1.4 {INR} Normal [facility] Comment on above: Performed By: #### L 300.3900 ####[facility] [address] [place], [address] PT Coag (PPP) [Time] 17.1 s High 11.7-14.9 [facility] Comment on above: Performed By: #### L 300.3900 ####[facility] [address] [place], [address] Prothrombin timeOrdered By: Franky Galloway on 10-13-2024 PT Coag (PPP) [Time] 17.1 s High 11.7-14.9 [facility] Prothrombin Time w/INRon INR Coag (PPP) [Relative time] 1.4 {INR} Normal [facility] Comment on above: Performed By: #### L 300.3900 ####[facility] [address] [place], [address] PT Coag (PPP) [Time] 17.4 s High 11.7-14.9 [facility] Comment on above: Performed By: #### L 300.3900 ####[facility] [address] [place], [address] International normalized rat io (INR) calculationOrdered By: Franky Galloway on 09-17-2024 INR Coag (Bld) [Relative time] 1.7 {INR} [facility] Prothrombin Time w/INRon INR Coag (PPP) [Relative time] 1.7 {INR} Normal [facility] Comment on above: Performed By: #### L 300.3900 ####[facility] [address] [place], [address] PT Coag (PPP) [Time] 20.1 s High 11.7-14.9 [facility] Comment on above: Performed By: #### L 300.3900 ####[facility] [address] [place], [address] Prothrombin timeOrdered By: Franky Galloway on 09-17-2024 PT Coag (PPP) [Time] 20.1 s High 11.7-14.9 [facility] International normalized rat io (INR) calculationOrdered By: Franky Galloway on 08-26-2024 INR Coag (Bld) [Relative time] 2.1 {INR} [facility] Prothrombin Time w/INRon INR Coag (PPP) [Relative time] 2.1 {INR} Normal [facility] Comment on above: Performed By: #### L 300.3900 ####[facility] [address] [place], [address] PT Coag (PPP) [Time] 24.0 s High 11.7-14.9 [facility] Comment on above: Performed By: #### L 300.3900 ####[facility] [address] [place], [address] Prothrombin timeOrdered By: Franky Galloway on 08-26-2024 PT Coag (PPP) [Time] 24.0 s High 11.7-14.9 [facility] Cardiology Visit Reporton Cardiology Visit Report Normal [facility] Prothrombin Time w/INRon INR Coag (PPP) [Relative time] 1.9 {INR} Normal [facility] Comment on above: Performed By: #### L 300.3900 ####[facility] [address] [place], [address] PT Coag (PPP) [Time] 22.0 s High 11.7-14.9 [facility] Comment on above: Performed By: #### L 300.3900 ####[facility] [address] [place], [address] Prothrombin Time w/INRon INR Coag (PPP) [Relative time] 1.4 {INR} Normal [facility] Comment on above: Performed By: #### L 300.3900 ####[facility] [address] [place], [place], [address] PT Coag (PPP) [Time] 17.6 s High 11.7-14.9 [facility] Comment on above: Performed By: #### L 300.3900 ####[facility] [address] [place], [place], [id number] MR/USVRTNCJ2xy 07-18-2024 MR/POSTOPAN2 Normal [facility] Bedside Glucoseon 07-17-2024 FINGERSTICK GLU 92 mg/dL Normal 74-106 [facility] Comment on above: Result Comment: KRZYSZTOF LOWE OF PATIENT CARE PER NURSING PROTOCOL Performed By: #### L 501.080 ####[facility] [address] [place], [place], [phone] EGD Reporton 07-17-2024 EGD Report Normal [facility] deOrdered By: Pablo Pichardo on 07-17-2024 Bedside Glucose (Misc Panel) 92 mg/dL 74-106 [facility] Comment on above: MANAGEMENT OF PATIEN T CARE PER NURSING PROTOCOL INR Coag (BldC) [Relative ti me]Ordered By: Pablo Pichardo on 07-17-2024 INR Coag (Bld) [Relative time] 1.2 {INR} [facility] Comment on above: Critical Value > 4.0 MR/POSTOP.ANEon 07-17-2024 MR/POSTOP.ANE Normal [facility] P53 (initial)on 07-17-2024 P53 (initial) Normal [facility] Comment on above: Performed By: #### P P53 ####[facility] [address] [place], [place], [phone] PT Coag (Bld) [Time]Ordered By: Pablo Pichardo on 07-17-2024 Bedside Prothrombin Time 14.2 SEC 11.7-14.9 [facility] Protime w/INR Fingerstickon 07-17-2024 INR Coag (PPP) [Relative time] 1.2 {INR} Normal [facility] Comment on above: Result Comment: Crit ical Value > 4.0 Performed By: #### L 9200.0000 ####[facility] [address] [place], [place], [address] Protime Coagsen 14.2 SEC Normal 11.7-14.9 [facility] Comment on above: Performed By: #### L 9200.0000 ####[facility] [address] [place], [place], [address] Special Stain Group Ion 12- Special Stain Group I Normal [facility] Comment on above: Performed By: #### P SSI ####[facility] [address] [place], [place], [address] MR/PAT.ANEon 07-16-2024 MR/PAT.ANE Normal [facility] Pulmonary Visit Reporton Pulmonary Visit Report Normal [facility] International normalized rat io (INR) calculationOrdered By: Franky Galloway on 07-09-2024 INR Coag (Bld) [Relative time] 1.9 {INR} [facility] Prothrombin Time w/INRon INR Coag (PPP) [Relative time] 1.9 {INR} Normal [facility] Comment on above: Performed By: #### L 300.3900 ####[facility] [address] [place], [place], [address] PT Coag (PPP) [Time] 21.3 s High 11.7-14.9 [facility] Comment on above: Performed By: #### L 300.3900 ####[facility] [address] [place], [place], [address] Prothrombin timeOrdered By: Franky Galloway on 07-09-2024 PT Coag (PPP) [Time] 21.3 s High 11.7-14.9 [facility] Gastroenterology Visit Repor ton 07-01-2024 Gastroenterology Visit Report Normal [facility] Prothrombin Time w/INRon INR Coag (PPP) [Relative time] 1.5 {INR} Normal [facility] Comment on above: Performed By: #### L [id number] ####[facility] [address] [place], [place], [address] PT Coag (PPP) [Time] 17.8 s High 11.7-14.9 [facility] Comment on above: Performed By: #### L 300.3900 ####[facility] [address] [place], [place], [address] 6 Minute Walk Teston 024 6 Minute Walk Test Normal [facility] Office Visit Reporton 2023 Office Visit Report Normal [facility] Gastroenterology Visit Repor ton 05-30-2024 Gastroenterology Visit Report Normal [facility] Magnesiumon 05-30-2024 Magnesium [Mass/Vol] 2.6 mg/dL Normal 1.6-2.6 [facility] Comment on above: Order Comment: Order Date: 05/23/24Order Info: [id number] - MGOrder Info: [id number] - KJOHN ROOF ORDERED PT Performed By: #### L 501.5200, L501.5600 ####[facility] [address] [place], [place], [address] Office Visit Reporton 2023 Office Visit Report Normal [facility] Potassiumon 05-30-2024 Potassium [Moles/Vol] 3.6 mmol/L Normal 3.5-5.1 [facility] Comment on above: Order Comment: Order Date: 05/23/24Order Info: [id number] - MGOrder Info: [id number] - KJOHN ROOF ORDERED PT Performed By: #### L 501.5200, L501.5600 ####[facility] [address] [place], [place], [address] Prothrombin Time w/INRon INR Coag (PPP) [Relative time] 3.7 {INR} Normal [facility] Comment on above: Order Comment: FRANKY GALLOWAY ORDERED PT Performed By: #### L 300.3900 ####[facility] [address] [place], [address] PT Coag (PPP) [Time] 36.3 s High 11.7-14.9 [facility] Comment on above: Order Comment: FRANKY GALLOWAY ORDERED PT Performed By: #### L 300.3900 ####[facility] [address] [place], [address] CBC W/Diff, Automatedon 04-30 PATH REV Reviewed Normal [facility] Comment on above: Result Comment: Neut rophilic leukocytosis.Normocytic anemia.Clinical correlation suggested.Dallin Nova D.O. 05/22/24 AMENDED REPORT 05/22/24 0947 PATH REV previously reported as: November Performed By: #### L 500.2500, L501.5200, L100.0100, L503.6620, L501.5425 ####[facility] [address] [place], [address] ANCAon 05-21-2024 Atypical pANCA <1:20 Normal Neg:<1:20 [facility] Comment on above: Order Comment: Speci men Comment: A duplicate report has been generateddue to demographicSpecimen Comment: updates. Result Comment: The atypical pANCA pattern has been observed in asignificant percentage of patients with ulcerative colitis,primary sclerosing cholangitis and autoimmune hepatitis. Performed By: #### L 3500.3600, L3100.5450, L3300.1200 ####[facility] [address] [place], [address] Cytoplasmic Ab <1:20 Normal Neg:<1:20 [facility] Comment on above: Order Comment: Speci men Comment: A duplicate report has been generateddue to demographicSpecimen Comment: updates. Performed By: #### L 3500.3600, L3100.5450, L3300.1200 ####[facility] [address] [place], [address] Perinuclear Ab. <1:20 Normal Neg:<1:20 [facility] Comment on above: Order Comment: Speci men Comment: A duplicate report has been generateddue to demographicSpecimen Comment: updates. Result Comment: The presence of positive fluorescence exhibiting P-ANCA orC-ANCA patterns alone is not specific for the diagnosis ofWegener's Granulomatosis (WG) or microscopic polyangiitis.Decisions about treatment should not be based solely onANCA IFA results. The [employer] Consensusrecommends follow up testing of positive sera with both KS-3 and MPO-ANCA enzyme immunoassays. As many as 5% serumsamples are positive only by EIA. Ref. AM J Clin Fywyem6858;111:507-513. Performed By: #### L 3500.3600, L3100.5450, L3300.1200 ####[facility] [address] [place], [address] Aspergillus Antibodieson Asp. flavus Negative Normal Neg:<1:1 [facility] Comment on above: Order Comment: Speci men Comment: A duplicate report has been generateddue to demographicSpecimen Comment: updates. Performed By: #### L 3500.3600, L3100.5450, L3300.1200 ####[facility] [address] [place], [address] Asp. fumigatus Negative Normal Neg:<1:1 [facility] Comment on above: Order Comment: Speci men Comment: A duplicate report has been generateddue to demographicSpecimen Comment: updates. Performed By: #### L 3500.3600, L3100.5450, L3300.1200 ####[facility] [address] [place], [address] Asp. niger Negative Normal Neg:<1:1 [facility] Comment on above: Order Comment: Speci men Comment: A duplicate report has been generateddue to demographicSpecimen Comment: updates. Result Comment: Perf ormed at: [facility] [place], [place] [id number] Director: Ian Phillip PhD, Phone: [phone] at: [facility] [address] [place], [place] [id number] Director: Rima Mejia MD, Phone: [phone] Performed By: #### L 3500.3600, L3100.5450, L3300.1200 ####[facility] [address] [place], [address] BNP,B-Type NATRIURETIC PEPTI Cayetano 05-21-2024 Natriuretic peptide B (Bld) [Mass/Vol] 44.1 pg/mL Normal 0-100 [facility] Comment on above: Performed By: #### L 500.2500, L501.5200, L100.0100, L503.6620, L501.5425 ####[facility] [address] [place], [address] Basic Metabolic Profile (BMP )on 05-21-2024 BUN/CRE 20.0 RATIO Normal 10-20 [facility] Comment on above: Order Comment: 1Y Performed By: #### L 500.2500, L501.5200, L100.0100, L503.6620, L501.5425 ####[facility] [address] [place], [address] CA,Total 8.2 mg/dL Low 8.5-10.1 [facility] Comment on above: Order Comment: 1Y Performed By: #### L 500.2500, L501.5200, L100.0100, L503.6620, L501.5425 ####[facility] [address] [place], [address] Chloride [Moles/Vol] 100 mmol/L Normal 98-107 [facility] Comment on above: Order Comment: 1Y Performed By: #### L 500.2500, L501.5200, L100.0100, L503.6620, L501.5425 ####[facility] [address] [place], [address] CO2 [Moles/Vol] 26.0 mmol/L Normal 21.0-32.0 [facility] Comment on above: Order Comment: 1Y Performed By: #### L 500.2500, L501.5200, L100.0100, L503.6620, L501.5425 ####[facility] [address] [place], [address] Creatinine [Mass/Vol] 1.05 mg/dL Normal 0.70-1.30 [facility] Comment on above: Order Comment: 1Y Result Comment: The validity of the calculated GFR GFRAA in patients over70 years has not been determined. Clinical correlation isessential. Performed By: #### L 500.2500, L501.5200, L100.0100, L503.6620, L501.5425 ####[facility] [address] [place], [address] ECRCL 66.61 ml/min Normal [facility] Comment on above: Order Comment: 1Y Performed By: #### L 500.2500, L501.5200, L100.0100, L503.6620, L501.5425 ####[facility] [address] [place], [address] EST GFR - AA 90 mL/min Normal >60 [facility] Comment on above: Order Comment: 1Y Result Comment: Afri can Macedonian GFR Calc Performed By: #### L 500.2500, L501.5200, L100.0100, L503.6620, L501.5425 ####[facility] [address] [place], [address] GAP 8 Normal 5-15 [facility] Comment on above: Order Comment: 1Y Performed By: #### L 500.2500, L501.5200, L100.0100, L503.6620, L501.5425 ####[facility] [address] [place], [address] GFR/1.73 sq M.predicted among non-blacks MDRD (S/P/Bld) [Vol rate/Area] 75 mL/min/{1.73_m2} Normal >60 [facility] Comment on above: Order Comment: 1Y Result Comment: Non- GFR Calc Performed By: #### L 500.2500, L501.5200, L100.0100, L503.6620, L501.5425 ####[facility] [address] [place], [address] Glucose [Mass/Vol] 129 mg/dL High 74-106 [facility] Comment on above: Order Comment: 1Y Result Comment: Fast ing Glucose result greater than or equal to 126 mg/dLsuggests DIABETES MELLITUS per A.D.A. criteria. Performed By: #### L 500.2500, L501.5200, L100.0100, L503.6620, L501.5425 ####[facility] [address] [place], [address] Potassium [Moles/Vol] 3.0 mmol/L Low 3.5-5.1 [facility] Comment on above: Order Comment: 1Y Performed By: #### L 500.2500, L501.5200, L100.0100, L503.6620, L501.5425 ####[facility] [address] [place], [address] Sodium [Moles/Vol] 134 mmol/L Low 136-145 [facility] Comment on above: Order Comment: 1Y Performed By: #### L 500.2500, L501.5200, L100.0100, L503.6620, L501.5425 ####[facility] [address] [place], [address] Urea nitrogen [Mass/Vol] 21 mg/dL High 7-18 [facility] Comment on above: Order Comment: 1Y Performed By: #### L 500.2500, L501.5200, L100.0100, L503.6620, L501.5425 ####[facility] [address] [place], [address] Chest 1 View (Portable)on Chest 1 View (Portable) Normal [facility] Emergency Department Summary on 05-21-2024 Emergency Department Summary Normal [facility] L501.4020on 05-21-2024 TROPONIN-I HS 6 pg/mL Normal 3.0-78.0 [facility] Comment on above: Result Comment: Plea se Note: New Test Units and Gender Specific Reference Ranges. For more information see Policy Stat Procedure [place] High Sensitivity Troponin (TNIH) and attachments. Performed By: #### L 501.4020 ####[facility] [address] [place], [address] L501.5425on 05-21-2024 TROPONIN-I HS 5 pg/mL Normal 3.0-78.0 [facility] Comment on above: Order Comment: 1Y Result Comment: Plea se Note: New Test Units and Gender Specific Reference Ranges. For more information see Policy Stat Procedure [place] High Sensitivity Troponin (TNIH) and attachments. Performed By: #### L 500.2500, L501.5200, L100.0100, L503.6620, L501.5425 ####[facility] [address] [place], [address] M100.678on 05-21-2024 M100.678 Pending SARS-CoV-2 (COVID 19) Negative INFLUENZA A Negative INFLUENZA B Negative RSV PCR Negative Normal [facility] Comment on above: Performed By: #### M 100.678 ####[facility] [address] [place], [address] Magnesiumon 05-21-2024 Magnesium [Mass/Vol] 2.3 mg/dL Normal 1.6-2.6 [facility] Comment on above: Order Comment: 1Y Performed By: #### L 500.2500, L501.5200, L100.0100, L503.6620, L501.5425 ####[facility] [address] [place], [address] Prothrombin Time w/INRon INR Coag (PPP) [Relative time] 2.2 {INR} Normal [facility] Comment on above: Performed By: #### L 300.3900 ####[facility] [address] [place], [address] PT Coag (PPP) [Time] 24.5 s High 11.7-14.9 [facility] Comment on above: Performed By: #### L 300.3900 ####[facility] [address] [place], [address] Urinalysis, Completeon 05-21 BACTERIA 0 SEEN Normal None Seen [facility] Comment on above: Order Comment: CLEAN CATCH Performed By: #### L 400.0001 ####[facility] [address] [place], [address] EPI,SQUAMOUS 0 SEEN Normal 0-5 [facility] Comment on above: Order Comment: CLEAN CATCH Performed By: #### L 400.0001 ####[facility] [address] [place], [address] Mucus Ql (Urine sed) 0 SEEN Normal [facility] Comment on above: Order Comment: CLEAN CATCH Performed By: #### L 400.0001 ####[facility] [address] [place], [address] RBC 0 SEEN Normal 0-5 [facility] Comment on above: Order Comment: CLEAN CATCH Performed By: #### L 400.0001 ####[facility] [address] [place], [address] WBC 0 SEEN Normal 0-5 [facility] Comment on above: Order Comment: CLEAN CATCH Performed By: #### L 400.0001 ####[facility] [address] [place], [address] Basic Metabolic Profile (BMP )on 05-20-2024 BUN Normal 7-18 [facility] Comment on above: Result Comment: Canc elled via OM: Order cancelled - Patient discharged Performed By: #### L 500.2500, L100.0100 ####[facility] [address] [place], [address] BUN/CRE Normal 10-20 [facility] Comment on above: Result Comment: Canc elled via OM: Order cancelled - Patient discharged Performed By: #### L 500.2500, L100.0100 ####[facility] [address] [place], [address] CA,Total Normal 8.5-10.1 [facility] Comment on above: Result Comment: Canc elled via OM: Order cancelled - Patient discharged Performed By: #### L 500.2500, L100.0100 ####[facility] [address] [place], [address] CL Normal 98-107 [facility] Comment on above: Result Comment: Canc elled via OM: Order cancelled - Patient discharged Performed By: #### L 500.2500, L100.0100 ####[facility] [address] [place], [address] CO2 Normal 21.0-32.0 [facility] Comment on above: Result Comment: Canc elled via OM: Order cancelled - Patient discharged Performed By: #### L 500.2500, L100.0100 ####[facility] [address] [place], [address] CREAT,SERUM Normal 0.70-1.30 [facility] Comment on above: Result Comment: Canc elled via OM: Order cancelled - Patient discharged Performed By: #### L 500.2500, L100.0100 ####[facility] [address] [place], [address] EST GFR Normal >60 [facility] Comment on above: Result Comment: Canc elled via OM: Order cancelled - Patient discharged Performed By: #### L 500.2500, L100.0100 ####[facility] [address] [place], [address] EST GFR - AA Normal >60 [facility] Comment on above: Result Comment: Canc elled via OM: Order cancelled - Patient discharged Performed By: #### L 500.2500, L100.0100 ####[facility] [address] [place], [address] GAP Normal 5-15 [facility] Comment on above: Result Comment: Canc elled via OM: Order cancelled - Patient discharged Performed By: #### L 500.2500, L100.0100 ####[facility] [address] [place], [address] GLU Normal 74-106 [facility] Comment on above: Result Comment: Canc elled via OM: Order cancelled - Patient discharged Performed By: #### L 500.2500, L100.0100 ####[facility] [address] [place], [address] Potassium Normal 3.5-5.1 [facility] Comment on above: Result Comment: Canc elled via OM: Order cancelled - Patient discharged Performed By: #### L 500.2500, L100.0100 ####[facility] [address] [place], [address] Basic Metabolic Profile (BMP) Normal 136-145 [facility] Comment on above: Result Comment: Canc elled via OM: Order cancelled - Patient discharged Performed By: #### L 500.2500, L100.0100 ####[facility] [address] [place], [address] CBC W/Diff, Automatedon 10-2 Absolute Neut Normal 2.0-7.7 [facility] Comment on above: Result Comment: Canc elled via OM: Order cancelled - Patient discharged Performed By: #### L 500.2500, L100.0100 ####[facility] [address] [place], [address] HCT Normal 40-54 [facility] Comment on above: Result Comment: Canc elled via OM: Order cancelled - Patient discharged Performed By: #### L 500.2500, L100.0100 ####[facility] [address] [place], [address] HGB Normal 13.0-16.5 [facility] Comment on above: Result Comment: Canc elled via OM: Order cancelled - Patient discharged Performed By: #### L 500.2500, L100.0100 ####[facility] [address] [place], [address] MCH Normal 27.0-32.0 [facility] Comment on above: Result Comment: Canc elled via OM: Order cancelled - Patient discharged Performed By: #### L 500.2500, L100.0100 ####[facility] [address] [place], [address] MCHC Normal 32-36 [facility] Comment on above: Result Comment: Canc elled via OM: Order cancelled - Patient discharged Performed By: #### L 500.2500, L100.0100 ####[facility] [address] [place], [address] MCV Normal 80-94 [facility] Comment on above: Result Comment: Canc elled via OM: Order cancelled - Patient discharged Performed By: #### L 500.2500, L100.0100 ####[facility] [address] [place], [address] NEUT% Normal 47-70 [facility] Comment on above: Result Comment: Canc elled via OM: Order cancelled - Patient discharged Performed By: #### L 500.2500, L100.0100 ####[facility] [address] [place], [address] PLT Normal 150-450 [facility] Comment on above: Result Comment: Canc elled via OM: Order cancelled - Patient discharged Performed By: #### L 500.2500, L100.0100 ####[facility] [address] [place], [address] RBC Normal 4.6-6.2 [facility] Comment on above: Result Comment: Canc elled via OM: Order cancelled - Patient discharged Performed By: #### L 500.2500, L100.0100 ####[facility] [address] [place], [address] RDW CV Normal 11.6-14.6 [facility] Comment on above: Result Comment: Canc elled via OM: Order cancelled - Patient discharged Performed By: #### L 500.2500, L100.0100 ####[facility] [address] [place], [address] RDW SD Normal 35.1-43.9 [facility] Comment on above: Result Comment: Canc elled via OM: Order cancelled - Patient discharged Performed By: #### L 500.2500, L100.0100 ####[facility] [address] [place], [address] WBC Normal 4.4-11.0 [facility] Comment on above: Result Comment: Canc elled via OM: Order cancelled - Patient discharged Performed By: #### L 500.2500, L100.0100 ####[facility] [address] [place], [address] Basic Metabolic Profile (BMP )on 05-19-2024 BUN Normal 7-18 [facility] Comment on above: Result Comment: Canc elled via OM: Order cancelled - Patient discharged Performed By: #### L 500.2500, L100.0100 ####[facility] [address] [place], [address] BUN/CRE Normal 10-20 [facility] Comment on above: Result Comment: Canc elled via OM: Order cancelled - Patient discharged Performed By: #### L 500.2500, L100.0100 ####[facility] [address] [place], [address] CA,Total Normal 8.5-10.1 [facility] Comment on above: Result Comment: Canc elled via OM: Order cancelled - Patient discharged Performed By: #### L 500.2500, L100.0100 ####[facility] [address] [place], [address] CL Normal 98-107 [facility] Comment on above: Result Comment: Canc elled via OM: Order cancelled - Patient discharged Performed By: #### L 500.2500, L100.0100 ####[facility] [address] [place], [address] CO2 Normal 21.0-32.0 [facility] Comment on above: Result Comment: Canc elled via OM: Order cancelled - Patient discharged Performed By: #### L 500.2500, L100.0100 ####[facility] [address] [place], [address] CREAT,SERUM Normal 0.70-1.30 [facility] Comment on above: Result Comment: Canc elled via OM: Order cancelled - Patient discharged Performed By: #### L 500.2500, L100.0100 ####[facility] [address] [place], [address] EST GFR Normal >60 [facility] Comment on above: Result Comment: Canc elled via OM: Order cancelled - Patient discharged Performed By: #### L 500.2500, L100.0100 ####[facility] [address] [place], [address] EST GFR - AA Normal >60 [facility] Comment on above: Result Comment: Canc elled via OM: Order cancelled - Patient discharged Performed By: #### L 500.2500, L100.0100 ####[facility] [address] [place], [address] GAP Normal 5-15 [facility] Comment on above: Result Comment: Canc elled via OM: Order cancelled - Patient discharged Performed By: #### L 500.2500, L100.0100 ####[facility] [address] [place], [address] GLU Normal 74-106 [facility] Comment on above: Result Comment: Canc elled via OM: Order cancelled - Patient discharged Performed By: #### L 500.2500, L100.0100 ####[facility] [address] [place], [address] Potassium Normal 3.5-5.1 [facility] Comment on above: Result Comment: Canc elled via OM: Order cancelled - Patient discharged Performed By: #### L 500.2500, L100.0100 ####[facility] [address] [place], [address] Basic Metabolic Profile (BMP) Normal 136-145 [facility] Comment on above: Result Comment: Canc elled via OM: Order cancelled - Patient discharged Performed By: #### L 500.2500, L100.0100 ####[facility] [address] [place], [address] CBC W/Diff, Automatedon 10-2 Absolute Neut Normal 2.0-7.7 [facility] Comment on above: Result Comment: Canc elled via OM: Order cancelled - Patient discharged Performed By: #### L 500.2500, L100.0100 ####[facility] [address] [place], [address] HCT Normal 40-54 [facility] Comment on above: Result Comment: Canc elled via OM: Order cancelled - Patient discharged Performed By: #### L 500.2500, L100.0100 ####[facility] [address] [place], [address] HGB Normal 13.0-16.5 [facility] Comment on above: Result Comment: Canc elled via OM: Order cancelled - Patient discharged Performed By: #### L 500.2500, L100.0100 ####[facility] [address] [place], [address] MCH Normal 27.0-32.0 [facility] Comment on above: Result Comment: Canc elled via OM: Order cancelled - Patient discharged Performed By: #### L 500.2500, L100.0100 ####[facility] [address] [place], [address] MCHC Normal 32-36 [facility] Comment on above: Result Comment: Canc elled via OM: Order cancelled - Patient discharged Performed By: #### L 500.2500, L100.0100 ####[facility] [address] [place], [address] MCV Normal 80-94 [facility] Comment on above: Result Comment: Canc elled via OM: Order cancelled - Patient discharged Performed By: #### L 500.2500, L100.0100 ####[facility] [address] [place], [address] NEUT% Normal 47-70 [facility] Comment on above: Result Comment: Canc elled via OM: Order cancelled - Patient discharged Performed By: #### L 500.2500, L100.0100 ####[facility] [address] [place], [address] PLT Normal 150-450 [facility] Comment on above: Result Comment: Canc elled via OM: Order cancelled - Patient discharged Performed By: #### L 500.2500, L100.0100 ####[facility] [address] [place], [address] RBC Normal 4.6-6.2 [facility] Comment on above: Result Comment: Canc elled via OM: Order cancelled - Patient discharged Performed By: #### L 500.2500, L100.0100 ####[facility] [address] [place], [address] RDW CV Normal 11.6-14.6 [facility] Comment on above: Result Comment: Canc elled via OM: Order cancelled - Patient discharged Performed By: #### L 500.2500, L100.0100 ####[facility] [address] [place], [address] RDW SD Normal 35.1-43.9 [facility] Comment on above: Result Comment: Canc elled via OM: Order cancelled - Patient discharged Performed By: #### L 500.2500, L100.0100 ####[facility] [address] [place], [address] WBC Normal 4.4-11.0 [facility] Comment on above: Result Comment: Canc elled via OM: Order cancelled - Patient discharged Performed By: #### L 500.2500, L100.0100 ####[facility] [address] [place], [address] SIMONE w/ Reflex Mult Confirmon 05-18-2024 SIMONE,DIRECT Normal [facility] Comment on above: Result Comment: TEST RESULTS LIMITSANA Direct Negative Negative ___ TESTING PERFORMED AT [facility]. ORIGINAL REPORT ON FILE IN LAB CONTAINS ADDITIONAL TEST SITE INFORMATION. Performed By: #### L 3500.3600, L3100.5450, L3300.1200 ####[facility] [address] [place], [address] Basic Metabolic Profile (BMP )on 05-18-2024 BUN Normal - [facility] Comment on above: Result Comment: Canc elled via OM: Order cancelled - Patient discharged Performed By: #### L 100.0100, L500.2500 ####[facility] [address] [place], [address] BUN/CRE Normal 05-18 [facility] Comment on above: Result Comment: Canc elled via OM: Order cancelled - Patient discharged Performed By: #### L 100.0100, L500.2500 ####[facility] [address] [place], [address] CA,Total Normal 8.5-10.1 [facility] Comment on above: Result Comment: Canc elled via OM: Order cancelled - Patient discharged Performed By: #### L 100.0100, L500.2500 ####[facility] [address] [place], [address] CL Normal 98-107 [facility] Comment on above: Result Comment: Canc elled via OM: Order cancelled - Patient discharged Performed By: #### L 100.0100, L500.2500 ####[facility] [address] [place], [address] CO2 Normal 21.0-32.0 [facility] Comment on above: Result Comment: Canc elled via OM: Order cancelled - Patient discharged Performed By: #### L 100.0100, L500.2500 ####[facility] [address] [place], [address] CREAT,SERUM Normal 0.70-1.30 [facility] Comment on above: Result Comment: Canc elled via OM: Order cancelled - Patient discharged Performed By: #### L 100.0100, L500.2500 ####[facility] [address] [place], [address] EST GFR Normal >60 [facility] Comment on above: Result Comment: Canc elled via OM: Order cancelled - Patient discharged Performed By: #### L 100.0100, L500.2500 ####[facility] [address] [place], [address] EST GFR - AA Normal >60 [facility] Comment on above: Result Comment: Canc elled via OM: Order cancelled - Patient discharged Performed By: #### L 100.0100, L500.2500 ####[facility] [address] [place], [address] GAP Normal 5-15 [facility] Comment on above: Result Comment: Canc elled via OM: Order cancelled - Patient discharged Performed By: #### L 100.0100, L500.2500 ####[facility] [address] [place], [address] GLU Normal 74-106 [facility] Comment on above: Result Comment: Canc elled via OM: Order cancelled - Patient discharged Performed By: #### L 100.0100, L500.2500 ####[facility] [address] [place], [address] Potassium Normal 3.5-5.1 [facility] Comment on above: Result Comment: Canc elled via OM: Order cancelled - Patient discharged Performed By: #### L 100.0100, L500.2500 ####[facility] [address] [place], [address] Basic Metabolic Profile (BMP) Normal 136-145 [facility] Comment on above: Result Comment: Canc elled via OM: Order cancelled - Patient discharged Performed By: #### L 100.0100, L500.2500 ####[facility] [address] [place], [address] CBC W/Diff, Automatedon 10-2 0-4 Absolute Neut Normal 2.0-7.7 [facility] Comment on above: Result Comment: Canc elled via OM: Order cancelled - Patient discharged Performed By: #### L 100.0100, L500.2500 ####[facility] [address] [place], [address] HCT Normal 40-54 [facility] Comment on above: Result Comment: Canc elled via OM: Order cancelled - Patient discharged Performed By: #### L 100.0100, L500.2500 ####[facility] [address] [place], [address] HGB Normal 13.0-16.5 [facility] Comment on above: Result Comment: Canc elled via OM: Order cancelled - Patient discharged Performed By: #### L 100.0100, L500.2500 ####[facility] [address] [place], [address] MCH Normal 27.0-32.0 [facility] Comment on above: Result Comment: Canc elled via OM: Order cancelled - Patient discharged Performed By: #### L 100.0100, L500.2500 ####[facility] [address] [place], [address] MCHC Normal 32-36 [facility] Comment on above: Result Comment: Canc elled via OM: Order cancelled - Patient discharged Performed By: #### L 100.0100, L500.2500 ####[facility] [address] [place], [address] MCV Normal 80-94 [facility] Comment on above: Result Comment: Canc elled via OM: Order cancelled - Patient discharged Performed By: #### L 100.0100, L500.2500 ####[facility] [address] [place], [address] NEUT% Normal 47-70 [facility] Comment on above: Result Comment: Canc elled via OM: Order cancelled - Patient discharged Performed By: #### L 100.0100, L500.2500 ####[facility] [address] [place], [address] PLT Normal 150-450 [facility] Comment on above: Result Comment: Canc elled via OM: Order cancelled - Patient discharged Performed By: #### L 100.0100, L500.2500 ####[facility] [address] [place], [address] RBC Normal 4.6-6.2 [facility] Comment on above: Result Comment: Canc elled via OM: Order cancelled - Patient discharged Performed By: #### L 100.0100, L500.2500 ####[facility] [address] [place], [address] RDW CV Normal 11.6-14.6 [facility] Comment on above: Result Comment: Canc elled via OM: Order cancelled - Patient discharged Performed By: #### L 100.0100, L500.2500 ####[facility] [address] [place], [address] RDW SD Normal 35.1-43.9 [facility] Comment on above: Result Comment: Canc elled via OM: Order cancelled - Patient discharged Performed By: #### L 100.0100, L500.2500 ####[facility] [address] [place], [address] WBC Normal 4.4-11.0 [facility] Comment on above: Result Comment: Canc elled via OM: Order cancelled - Patient discharged Performed By: #### L 100.0100, L500.2500 ####[facility] [address] [place], [address] L5000.0010on 05-18-2024 BNP Normal [facility] Comment on above: Result Comment: TEST RESULTS LIMITSB-Type Natriuretic Peptide 219.3 High pg/mL 0.0-100.0 [employer] ADVIA Centaur XP methodology TESTING PERFORMED AT [facility]. ORIGINAL REPORT ON FILE IN LAB CONTAINS ADDITIONAL TEST SITE INFORMATION. Performed By: #### L 5000.0010 ####[facility] [address] [place], [address] Basic Metabolic Profile (BMP )on 05-17-2024 BUN Normal 02-13 [facility] Comment on above: Result Comment: Canc elled via OM: Order cancelled - Patient discharged Performed By: #### L 100.0100, L500.2500 ####[facility] [address] [place], [address] BUN/CRE Normal 05-18 [facility] Comment on above: Result Comment: Canc elled via OM: Order cancelled - Patient discharged Performed By: #### L 100.0100, L500.2500 ####[facility] [address] [place], [address] CA,Total Normal 8.5-10.1 [facility] Comment on above: Result Comment: Canc elled via OM: Order cancelled - Patient discharged Performed By: #### L 100.0100, L500.2500 ####[facility] [address] [place], [address] CL Normal 98-107 [facility] Comment on above: Result Comment: Canc elled via OM: Order cancelled - Patient discharged Performed By: #### L 100.0100, L500.2500 ####[facility] [address] [place], [address] CO2 Normal 21.0-32.0 [facility] Comment on above: Result Comment: Canc elled via OM: Order cancelled - Patient discharged Performed By: #### L 100.0100, L500.2500 ####[facility] [address] [place], [address] CREAT,SERUM Normal 0.70-1.30 [facility] Comment on above: Result Comment: Canc elled via OM: Order cancelled - Patient discharged Performed By: #### L 100.0100, L500.2500 ####[facility] [address] [place], [address] EST GFR Normal >60 [facility] Comment on above: Result Comment: Canc elled via OM: Order cancelled - Patient discharged Performed By: #### L 100.0100, L500.2500 ####[facility] [address] [place], [address] EST GFR - AA Normal >60 [facility] Comment on above: Result Comment: Canc elled via OM: Order cancelled - Patient discharged Performed By: #### L 100.0100, L500.2500 ####[facility] [address] [place], [address] GAP Normal 5-15 [facility] Comment on above: Result Comment: Canc elled via OM: Order cancelled - Patient discharged Performed By: #### L 100.0100, L500.2500 ####[facility] [address] [place], [address] GLU Normal 74-106 [facility] Comment on above: Result Comment: Canc elled via OM: Order cancelled - Patient discharged Performed By: #### L 100.0100, L500.2500 ####[facility] [address] [place], [address] Potassium Normal 3.5-5.1 [facility] Comment on above: Result Comment: Canc elled via OM: Order cancelled - Patient discharged Performed By: #### L 100.0100, L500.2500 ####[facility] [address] [place], [address] Basic Metabolic Profile (BMP) Normal 136-145 [facility] Comment on above: Result Comment: Canc elled via OM: Order cancelled - Patient discharged Performed By: #### L 100.0100, L500.2500 ####[facility] [address] [place], [address] CBC W/Diff, Automatedon - Absolute Neut Normal 2.0-7.7 [facility] Comment on above: Result Comment: Canc elled via OM: Order cancelled - Patient discharged Performed By: #### L 100.0100, L500.2500 ####[facility] [address] [place], [address] HCT Normal 40-54 [facility] Comment on above: Result Comment: Canc elled via OM: Order cancelled - Patient discharged Performed By: #### L 100.0100, L500.2500 ####[facility] [address] [place], [address] HGB Normal 13.0-16.5 [facility] Comment on above: Result Comment: Canc elled via OM: Order cancelled - Patient discharged Performed By: #### L 100.0100, L500.2500 ####[facility] [address] [place], [address] MCH Normal 27.0-32.0 [facility] Comment on above: Result Comment: Canc elled via OM: Order cancelled - Patient discharged Performed By: #### L 100.0100, L500.2500 ####[facility] [address] [place], [address] MCHC Normal 32-36 [facility] Comment on above: Result Comment: Canc elled via OM: Order cancelled - Patient discharged Performed By: #### L 100.0100, L500.2500 ####[facility] [address] [place], [address] MCV Normal 80-94 [facility] Comment on above: Result Comment: Canc elled via OM: Order cancelled - Patient discharged Performed By: #### L 100.0100, L500.2500 ####[facility] [address] [place], [address] NEUT% Normal 47-70 [facility] Comment on above: Result Comment: Canc elled via OM: Order cancelled - Patient discharged Performed By: #### L 100.0100, L500.2500 ####[facility] [address] [place], [address] PLT Normal 150-450 [facility] Comment on above: Result Comment: Canc elled via OM: Order cancelled - Patient discharged Performed By: #### L 100.0100, L500.2500 ####[facility] [address] [place], [address] RBC Normal 4.6-6.2 [facility] Comment on above: Result Comment: Canc elled via OM: Order cancelled - Patient discharged Performed By: #### L 100.0100, L500.2500 ####[facility] [address] [place], [address] RDW CV Normal 11.6-14.6 [facility] Comment on above: Result Comment: Canc elled via OM: Order cancelled - Patient discharged Performed By: #### L 100.0100, L500.2500 ####[facility] [address] [place], [address] RDW SD Normal 35.1-43.9 [facility] Comment on above: Result Comment: Canc elled via OM: Order cancelled - Patient discharged Performed By: #### L 100.0100, L500.2500 ####[facility] [address] [place], [address] WBC Normal 4.4-11.0 [facility] Comment on above: Result Comment: Canc elled via OM: Order cancelled - Patient discharged Performed By: #### L 100.0100, L500.2500 ####[facility] [address] [place], [address] Basic Metabolic Profile (BMP )on 05-16-2024 BUN/CRE 14.5 RATIO Normal -20 [facility] Comment on above: Performed By: #### L 500.2500, L100.0100 ####[facility] [address] [place], [address] CA,Total 8.4 mg/dL Low 8.5-10.1 [facility] Comment on above: Performed By: #### L 500.2500, L100.0100 ####[facility] [address] [place], [address] Chloride [Moles/Vol] 104 mmol/L Normal 98-107 [facility] Comment on above: Performed By: #### L 500.2500, L100.0100 ####[facility] [address] [place], [address] CO2 [Moles/Vol] 29.0 mmol/L Normal 21.0-32.0 [facility] Comment on above: Performed By: #### L 500.2500, L100.0100 ####[facility] [address] [place], [address] Creatinine [Mass/Vol] 0.76 mg/dL Normal 0.70-1.30 [facility] Comment on above: Result Comment: The validity of the calculated GFR GFRAA in patients over70 years has not been determined. Clinical correlation isessential. Performed By: #### L 500.2500, L100.0100 ####[facility] [address] [place], [address] ECRCL 83.92 ml/min Normal [facility] Comment on above: Performed By: #### L 500.2500, L100.0100 ####[facility] [address] [place], [address] EST GFR - AA 131 mL/min Normal >60 [facility] Comment on above: Result Comment: Afri can Macedonian GFR Calc Performed By: #### L 500.2500, L100.0100 ####[facility] [address] [place], [address] GAP 5 Normal 5-15 [facility] Comment on above: Performed By: #### L 500.2500, L100.0100 ####[facility] [address] [place], [address] GFR/1.73 sq M.predicted among non-blacks MDRD (S/P/Bld) [Vol rate/Area] 108 mL/min/{1.73_m2} Normal >60 [facility] Comment on above: Result Comment: Non- GFR Calc Performed By: #### L 500.2500, L100.0100 ####[facility] [address] [place], [address] Glucose [Mass/Vol] 103 mg/dL Normal 74-106 [facility] Comment on above: Result Comment: Fast ing Glucose result from 100 to 125 mg/dLsuggests IMPAIRED HOMEOSTASIS per A.D.A. criteria. Performed By: #### L 500.2500, L100.0100 ####[facility] [address] [place], [address] Potassium [Moles/Vol] 3.4 mmol/L Low 3.5-5.1 [facility] Comment on above: Performed By: #### L 500.2500, L100.0100 ####[facility] [address] [place], [address] Sodium [Moles/Vol] 138 mmol/L Normal 136-145 [facility] Comment on above: Performed By: #### L 500.2500, L100.0100 ####[facility] [address] [place], [address] Urea nitrogen [Mass/Vol] 11 mg/dL Normal -18 [facility] Comment on above: Performed By: #### L 500.2500, L100.0100 ####[facility] [address] [place], [address] CBC W/Diff, Automatedon 04-29 PATH REV Reviewed Normal [facility] Comment on above: Result Comment: Neut rophilic left shift.Normocytic anemia.Clinical correlation necessary.Lance Barajas M.D. 05/16/24 AMENDED REPORT 05/16/24 1436 PATH REV previously reported as: November ivania Performed By: #### L 500.2500, L100.0100 ####[facility] [address] [place], [address] Discharge Instructionon 04-29 Discharge Instruction Normal [facility] Prothrombin Time w/INRon INR Coag (PPP) [Relative time] 2.9 {INR} Normal [facility] Comment on above: Performed By: #### L 300.3900 ####[facility] [address] [place], [address] PT Coag (PPP) [Time] 29.8 s High 11.7-14.9 [facility] Comment on above: Performed By: #### L 300.3900 ####[facility] [address] [place], [address] 12 Lead EKGon 05-15-2024 12 Lead EKG Normal [facility] Basic Metabolic Profile (BMP )on 05-15-2024 BUN/CRE 12.7 RATIO Normal 05-18 [facility] Comment on above: Performed By: #### L 100.0100, L500.2500 ####[facility] [address] [place], [address] CA,Total 8.8 mg/dL Normal 8.5-10.1 [facility] Comment on above: Performed By: #### L 100.0100, L500.2500 ####[facility] [address] [place], [address] Chloride [Moles/Vol] 106 mmol/L Normal 98-107 [facility] Comment on above: Performed By: #### L 100.0100, L500.2500 ####[facility] [address] [place], [address] CO2 [Moles/Vol] 25.0 mmol/L Normal 21.0-32.0 [facility] Comment on above: Performed By: #### L 100.0100, L500.2500 ####[facility] [address] [place], [address] Creatinine [Mass/Vol] 0.71 mg/dL Normal 0.70-1.30 [facility] Comment on above: Result Comment: The validity of the calculated GFR GFRAA in patients over70 years has not been determined. Clinical correlation isessential. Performed By: #### L 100.0100, L500.2500 ####[facility] [address] [place], [address] ECRCL 88.38 ml/min Normal [facility] Comment on above: Performed By: #### L 100.0100, L500.2500 ####[facility] [address] [place], [address] EST GFR - AA 142 mL/min Normal >60 [facility] Comment on above: Result Comment: Afri can Macedonian GFR Calc Performed By: #### L 100.0100, L500.2500 ####[facility] [address] [place], [address] GAP 6 Normal 5-15 [facility] Comment on above: Performed By: #### L 100.0100, L500.2500 ####[facility] [address] [place], [address] GFR/1.73 sq M.predicted among non-blacks MDRD (S/P/Bld) [Vol rate/Area] 117 mL/min/{1.73_m2} Normal >60 [facility] Comment on above: Result Comment: Non- GFR Calc Performed By: #### L 100.0100, L500.2500 ####[facility] [address] [place], [address] Glucose [Mass/Vol] 99 mg/dL Normal 74-106 [facility] Comment on above: Performed By: #### L 100.0100, L500.2500 ####[facility] [address] [place], [address] Potassium [Moles/Vol] 3.6 mmol/L Normal 3.5-5.1 [facility] Comment on above: Performed By: #### L 100.0100, L500.2500 ####[facility] [address] [place], [address] Sodium [Moles/Vol] 138 mmol/L Normal 136-145 [facility] Comment on above: Performed By: #### L 100.0100, L500.2500 ####[facility] [address] [place], [address] Urea nitrogen [Mass/Vol] 9 mg/dL Normal 7-18 [facility] Comment on above: Performed By: #### L 100.0100, L500.2500 ####[facility] [address] [place], [address] CBC W/Diff, Automatedon 04-29 PATH REV Reviewed Normal [facility] Comment on above: Result Comment: Neut rophilic left shift.Normocytic anemia.Clinical correlation necessary.Lance Barajas M.D. 05/15/24 AMENDED REPORT 05/15/24 0950 PATH REV previously reported as: November ivania Performed By: #### L 100.0100, L500.2500 ####[facility] [address] [place], [address] Prothrombin Time w/INRon INR Coag (PPP) [Relative time] 3.9 {INR} Normal [facility] Comment on above: Performed By: #### L 300.3900 ####[facility] [address] [place], [address] PT Coag (PPP) [Time] 37.7 s High 11.7-14.9 [facility] Comment on above: Performed By: #### L 300.3900 ####[facility] [address] [place], [address] Respiratory Cultureon 2023 RESPC Presumptive C albica ns Amount Growth 3+ Normal [facility] Comment on above: Performed By: #### M 100.2000, M100.2400 ####[facility] [address] [place], [address] Basic Metabolic Profile (BMP )on 05-14-2024 BUN/CRE 14.1 RATIO Normal 10-20 [facility] Comment on above: Performed By: #### L 100.0100, L500.2500 ####[facility] [address] [place], [address] CA,Total 8.5 mg/dL Normal 8.5-10.1 [facility] Comment on above: Performed By: #### L 100.0100, L500.2500 ####[facility] [address] [place], [address] Chloride [Moles/Vol] 107 mmol/L Normal 98-107 [facility] Comment on above: Performed By: #### L 100.0100, L500.2500 ####[facility] [address] [place], [address] CO2 [Moles/Vol] 24.0 mmol/L Normal 21.0-32.0 [facility] Comment on above: Performed By: #### L 100.0100, L500.2500 ####[facility] [address] [place], [address] Creatinine [Mass/Vol] 0.71 mg/dL Normal 0.70-1.30 [facility] Comment on above: Result Comment: The validity of the calculated GFR GFRAA in patients over70 years has not been determined. Clinical correlation isessential. Performed By: #### L 100.0100, L500.2500 ####[facility] [address] [place], [address] ECRCL 88.38 ml/min Normal [facility] Comment on above: Performed By: #### L 100.0100, L500.2500 ####[facility] [address] [place], [address] EST GFR - AA 142 mL/min Normal >60 [facility] Comment on above: Result Comment: Afri can Macedonian GFR Calc Performed By: #### L 100.0100, L500.2500 ####[facility] [address] [place], [address] GAP 7 Normal 5-15 [facility] Comment on above: Performed By: #### L 100.0100, L500.2500 ####[facility] [address] [place], [address] GFR/1.73 sq M.predicted among non-blacks MDRD (S/P/Bld) [Vol rate/Area] 117 mL/min/{1.73_m2} Normal >60 [facility] Comment on above: Result Comment: Non- GFR Calc Performed By: #### L 100.0100, L500.2500 ####[facility] [address] [place], [address] Glucose [Mass/Vol] 154 mg/dL High 74-106 [facility] Comment on above: Result Comment: Fast ing Glucose result greater than or equal to 126 mg/dLsuggests DIABETES MELLITUS per A.D.A. criteria. Performed By: #### L 100.0100, L500.2500 ####[facility] [address] [place], [address] Potassium [Moles/Vol] 3.3 mmol/L Low 3.5-5.1 [facility] Comment on above: Performed By: #### L 100.0100, L500.2500 ####[facility] [address] [place], [address] Sodium [Moles/Vol] 138 mmol/L Normal 136-145 [facility] Comment on above: Performed By: #### L 100.0100, L500.2500 ####[facility] [address] [place], [address] Urea nitrogen [Mass/Vol] 10 mg/dL Normal 7-18 [facility] Comment on above: Performed By: #### L 100.0100, L500.2500 ####[facility] [address] [place], [address] CBC W/Diff, Automatedon 10-1 -2023 Absolute Lymph 0.60 X10 3/uL Low 0.83-4.51 [facility] Comment on above: Performed By: #### L 100.0100, L500.2500 ####[facility] [address] [place], [address] Absolute Neut 10.9 X10 3/uL High 2.0-7.7 [facility] Comment on above: Performed By: #### L 100.0100, L500.2500 ####[facility] [address] [place], [address] Basophils/100 WBC (Bld) 0.2 % Normal 0-1 [facility] Comment on above: Performed By: #### L 100.0100, L500.2500 ####[facility] [address] [place], [address] Eosinophils/100 WBC (Bld) 0.0 % Normal 0-5 [facility] Comment on above: Performed By: #### L 100.0100, L500.2500 ####[facility] [address] [place], [address] Erythrocyte distribution width (RBC) [Ratio] 15.2 % High 11.6-14.6 [facility] Comment on above: Performed By: #### L 100.0100, L500.2500 ####[facility] [address] [place], [address] Hematocrit (Bld) [Volume fraction] 30.7 % Low 40-54 [facility] Comment on above: Performed By: #### L 100.0100, L500.2500 ####[facility] [address] [place], [address] Hemoglobin (Bld) [Mass/Vol] 10.4 g/dL Low 13.0-16.5 [facility] Comment on above: Performed By: #### L 100.0100, L500.2500 ####[facility] [address] [place], [address] IG% 2.000 High 0.0-0.9 [facility] Comment on above: Result Comment: IG% - Immature Granulocytes (promyelocytes, myelocytes andmetamyelocytes) > 1% indicates that a LEFT SHIFT is Present. Performed By: #### L 100.0100, L500.2500 ####[facility] [address] [place], [address] Lymphocytes/100 WBC (Bld) 4.9 % Low 19-41 [facility] Comment on above: Performed By: #### L 100.0100, L500.2500 ####[facility] [address] [place], [address] MCH (RBC) [Entitic mass] 31.1 pg Normal 27.0-32.0 [facility] Comment on above: Performed By: #### L 100.0100, L500.2500 ####[facility] [address] [place], [address] MCHC (RBC) [Mass/Vol] 33.9 g/dL Normal 32-36 [facility] Comment on above: Performed By: #### L 100.0100, L500.2500 ####[facility] [address] [place], [address] MCV (RBC) [Entitic vol] 91.9 fL Normal 80-94 [facility] Comment on above: Performed By: #### L 100.0100, L500.2500 ####[facility] [address] [place], [address] Monocytes/100 WBC (Bld) 4.0 % Normal 0-10 [facility] Comment on above: Performed By: #### L 100.0100, L500.2500 ####[facility] [address] [place], [address] Neutrophils/100 WBC (Bld) 88.9 % High 47-70 [facility] Comment on above: Performed By: #### L 100.0100, L500.2500 ####[facility] [address] [place], [address] Nucleated RBC (Bld) [#/Vol] 0 10*3/uL Normal 0-5 [facility] Comment on above: Performed By: #### L 100.0100, L500.2500 ####[facility] [address] [place], [address] Platelet mean volume (Bld) [Entitic vol] 9.8 fL Normal 6.2-12.0 [facility] Comment on above: Performed By: #### L 100.0100, L500.2500 ####[facility] [address] [place], [address] Platelets (Bld) [#/Vol] 265 10*3/uL Normal 150-450 [facility] Comment on above: Performed By: #### L 100.0100, L500.2500 ####[facility] [address] [place], [address] RBC (Bld) [#/Vol] 3.34 10*6/uL Low 4.6-6.2 [facility] Comment on above: Performed By: #### L 100.0100, L500.2500 ####[facility] [address] [place], [address] RDW SD 51.3 fl High 35.1-43.9 [facility] Comment on above: Performed By: #### L 100.0100, L500.2500 ####[facility] [address] [place], [address] WBC (Bld) [#/Vol] 12.3 10*3/uL High 4.4-11.0 [facility] Comment on above: Performed By: #### L 100.0100, L500.2500 ####[facility] [address] [place], [address] CTA Chest W/WO Contraston CTA Chest W/WO Contrast Normal [facility] Consultation - Intensiviston 05-14-2024 Consultation - Pathology Laboratory Aides Teacher Normal [facility] Gram Stainon 05-14-2024 GS Acceptable Specimen? Yes (<25 Epithelial cells per/lpf) Gram Stain Rare White Blood Cells Rare Epithelial cells 2+ Yeast Like Organisms 2+ Gram positive cocci Normal [facility] Comment on above: Performed By: #### M 100.2000, M100.2400 ####[facility] [address] [place], [address] Legionella Antigen Urineon 1 LEGU Normal [facility] Comment on above: Performed By: #### M 300.4500 ####[facility] [address] [place], [address] M8200.1000on 05-14-2024 M8200.1000 Negative Normal [facility] Comment on above: Performed By: #### M 8200.1000 ####[facility] [address] [place], [address] Prothrombin Time w/INRon INR Coag (PPP) [Relative time] 3.3 {INR} Normal [facility] Comment on above: Performed By: #### L 300.3900 ####[facility] [address] [place], [address] PT Coag (PPP) [Time] 33.1 s High 11.7-14.9 [facility] Comment on above: Performed By: #### L 300.3900 ####[facility] [address] [place], [address] Strep pneumoniae Antig(UR,CS F)on 05-14-2024 STPAG Normal [facility] Comment on above: Performed By: #### M 300.4600 ####[facility] [address] [place], [address] Basic Metabolic Profile (BMP )on 05-13-2024 BUN/CRE 12.5 RATIO Normal -20 [facility] Comment on above: Performed By: #### L 500.2500, L100.0100 ####[facility] [address] [place], [address] CA,Total 8.4 mg/dL Low 8.5-10.1 [facility] Comment on above: Performed By: #### L 500.2500, L100.0100 ####[facility] [address] [place], [address] Chloride [Moles/Vol] 104 mmol/L Normal 98-107 [facility] Comment on above: Performed By: #### L 500.2500, L100.0100 ####[facility] [address] [place], [address] CO2 [Moles/Vol] 25.0 mmol/L Normal 21.0-32.0 [facility] Comment on above: Performed By: #### L 500.2500, L100.0100 ####[facility] [address] [place], [address] Creatinine [Mass/Vol] 0.72 mg/dL Normal 0.70-1.30 [facility] Comment on above: Result Comment: The validity of the calculated GFR GFRAA in patients over70 years has not been determined. Clinical correlation isessential. Performed By: #### L 500.2500, L100.0100 ####[facility] [address] [place], [address] ECRCL 88.38 ml/min Normal [facility] Comment on above: Performed By: #### L 500.2500, L100.0100 ####[facility] [address] [place], [address] EST GFR - AA 140 mL/min Normal >60 [facility] Comment on above: Result Comment: Afri can Macedonian GFR Calc Performed By: #### L 500.2500, L100.0100 ####[facility] [address] [place], [address] GAP 7 Normal 5-15 [facility] Comment on above: Performed By: #### L 500.2500, L100.0100 ####[facility] [address] [place], [address] GFR/1.73 sq M.predicted among non-blacks MDRD (S/P/Bld) [Vol rate/Area] 116 mL/min/{1.73_m2} Normal >60 [facility] Comment on above: Result Comment: Non- GFR Calc Performed By: #### L 500.2500, L100.0100 ####[facility] [address] [place], [address] Glucose [Mass/Vol] 119 mg/dL High 74-106 [facility] Comment on above: Result Comment: Fast ing Glucose result from 100 to 125 mg/dLsuggests IMPAIRED HOMEOSTASIS per A.D.A. criteria. Performed By: #### L 500.2500, L100.0100 ####[facility] [address] [place], [address] Potassium [Moles/Vol] 3.6 mmol/L Normal 3.5-5.1 [facility] Comment on above: Performed By: #### L 500.2500, L100.0100 ####[facility] [address] [place], [address] Sodium [Moles/Vol] 136 mmol/L Normal 136-145 [facility] Comment on above: Performed By: #### L 500.2500, L100.0100 ####[facility] [address] [place], [address] Urea nitrogen [Mass/Vol] 9 mg/dL Normal 7-18 [facility] Comment on above: Performed By: #### L 500.2500, L100.0100 ####[facility] [address] [place], [address] CBC W/Diff, Automatedon 10 Absolute Lymph 0.54 X10 3/uL Low 0.83-4.51 [facility] Comment on above: Performed By: #### L 500.2500, L100.0100 ####[facility] [address] [place], [address] Absolute Neut 14.9 X10 3/uL High 2.0-7.7 [facility] Comment on above: Performed By: #### L 500.2500, L100.0100 ####[facility] [address] [place], [address] Basophils/100 WBC (Bld) 0.1 % Normal 0-1 [facility] Comment on above: Performed By: #### L 500.2500, L100.0100 ####[facility] [address] [place], [address] Eosinophils/100 WBC (Bld) 0.0 % Normal 0-5 [facility] Comment on above: Performed By: #### L 500.2500, L100.0100 ####[facility] [address] [place], [address] Erythrocyte distribution width (RBC) [Ratio] 15.1 % High 11.6-14.6 [facility] Comment on above: Performed By: #### L 500.2500, L100.0100 ####[facility] [address] [place], [address] Hematocrit (Bld) [Volume fraction] 29.6 % Low 40-54 [facility] Comment on above: Performed By: #### L 500.2500, L100.0100 ####[facility] [address] [place], [address] Hemoglobin (Bld) [Mass/Vol] 9.7 g/dL Low 13.0-16.5 [facility] Comment on above: Performed By: #### L 500.2500, L100.0100 ####[facility] [address] [place], [address] IG% 1.200 High 0.0-0.9 [facility] Comment on above: Result Comment: IG% - Immature Granulocytes (promyelocytes, myelocytes andmetamyelocytes) > 1% indicates that a LEFT SHIFT is Present. Performed By: #### L 500.2500, L100.0100 ####[facility] [address] [place], [address] Lymphocytes/100 WBC (Bld) 3.4 % Low 19-41 [facility] Comment on above: Performed By: #### L 500.2500, L100.0100 ####[facility] [address] [place], [address] MCH (RBC) [Entitic mass] 30.1 pg Normal 27.0-32.0 [facility] Comment on above: Performed By: #### L 500.2500, L100.0100 ####[facility] [address] [place], [address] MCHC (RBC) [Mass/Vol] 32.8 g/dL Normal 32-36 [facility] Comment on above: Performed By: #### L 500.2500, L100.0100 ####[facility] [address] [place], [address] MCV (RBC) [Entitic vol] 91.9 fL Normal 80-94 [facility] Comment on above: Performed By: #### L 500.2500, L100.0100 ####[facility] [address] [place], [address] Monocytes/100 WBC (Bld) 2.4 % Normal 0-10 [facility] Comment on above: Performed By: #### L 500.2500, L100.0100 ####[facility] [address] [place], [address] Neutrophils/100 WBC (Bld) 92.9 % High 47-70 [facility] [place] Comment on above: Performed By: #### L 500.2500, L100.0100 ####[facility] [address] [place], [address] Nucleated RBC (Bld) [#/Vol] 0 10*3/uL Normal 0-5 [facility] Comment on above: Performed By: #### L 500.2500, L100.0100 ####[facility] [address] [place], [address] Platelet mean volume (Bld) [Entitic vol] 9.6 fL Normal 6.2-12.0 [facility] Comment on above: Performed By: #### L 500.2500, L100.0100 ####[facility] [address] [place], [address] Platelets (Bld) [#/Vol] 237 10*3/uL Normal 150-450 [facility] Comment on above: Performed By: #### L 500.2500, L100.0100 ####[facility] [address] [place], [address] RBC (Bld) [#/Vol] 3.22 10*6/uL Low 4.6-6.2 [facility] Comment on above: Performed By: #### L 500.2500, L100.0100 ####[facility] [address] [place], [address] RDW SD 50.3 fl High 35.1-43.9 [facility] Comment on above: Performed By: #### L 500.2500, L100.0100 ####[facility] [address] [place], [address] WBC (Bld) [#/Vol] 16.0 10*3/uL High 4.4-11.0 [facility] Comment on above: Performed By: #### L 500.2500, L100.0100 ####[facility] [address] [place], [address] Prothrombin Time w/INRon INR Coag (PPP) [Relative time] 2.4 {INR} Normal [facility] Comment on above: Performed By: #### L 300.3900 ####[facility] [address] [place], [address] PT Coag (PPP) [Time] 26.3 s High 11.7-14.9 [facility] Comment on above: Performed By: #### L 300.3900 ####[facility] [address] [place], [address] Basic Metabolic Profile (BMP )on 05-12-2024 BUN/CRE 14.5 RATIO Normal -20 [facility] Comment on above: Performed By: #### L 100.0100, L500.2500, L300.3900 ####[facility] [address] [place], [address] CA,Total 8.7 mg/dL Normal 8.5-10.1 [facility] Comment on above: Performed By: #### L 100.0100, L500.2500, L300.3900 ####[facility] [address] [place], [address] Chloride [Moles/Vol] 100 mmol/L Normal 98-107 [facility] Comment on above: Performed By: #### L 100.0100, L500.2500, L300.3900 ####[facility] [address] [place], [address] CO2 [Moles/Vol] 23.0 mmol/L Normal 21.0-32.0 [facility] Comment on above: Performed By: #### L 100.0100, L500.2500, L300.3900 ####[facility] [address] [place], [address] Creatinine [Mass/Vol] 0.69 mg/dL Low 0.70-1.30 [facility] Comment on above: Result Comment: The validity of the calculated GFR GFRAA in patients over70 years has not been determined. Clinical correlation isessential. Performed By: #### L 100.0100, L500.2500, L300.3900 ####[facility] [address] [place], [address] ECRCL 85.38 ml/min Normal [facility] Comment on above: Performed By: #### L 100.0100, L500.2500, L300.3900 ####[facility] [address] [place], [address] EST GFR - AA 147 mL/min Normal >60 [facility] Comment on above: Result Comment: Afri can Macedonian GFR Calc Performed By: #### L 100.0100, L500.2500, L300.3900 ####[facility] [address] [place], [address] GAP 10 Normal 5-15 [facility] Comment on above: Performed By: #### L 100.0100, L500.2500, L300.3900 ####[facility] [address] [place], [address] GFR/1.73 sq M.predicted among non-blacks MDRD (S/P/Bld) [Vol rate/Area] 121 mL/min/{1.73_m2} Normal >60 [facility] Comment on above: Result Comment: Non- GFR Calc Performed By: #### L 100.0100, L500.2500, L300.3900 ####[facility] [address] [place], [address] Glucose [Mass/Vol] 212 mg/dL High 74-106 [facility] Comment on above: Result Comment: Gluc ose result greater than or equal to 200 mg/dLsuggests DIABETES MELLITUS per A.D.A. criteria. Performed By: #### L 100.0100, L500.2500, L300.3900 ####[facility] [address] [place], [address] Potassium [Moles/Vol] 3.4 mmol/L Low 3.5-5.1 [facility] Comment on above: Performed By: #### L 100.0100, L500.2500, L300.3900 ####[facility] [address] [place], [address] Sodium [Moles/Vol] 133 mmol/L Low 136-145 [facility] Comment on above: Performed By: #### L 100.0100, L500.2500, L300.3900 ####[facility] [address] [place], [address] Urea nitrogen [Mass/Vol] 10 mg/dL Normal 7-18 [facility] Comment on above: Performed By: #### L 100.0100, L500.2500, L300.3900 ####[facility] [address] [place], [address] CBC W/Diff, Automatedon 10-1 Absolute Lymph 0.48 X10 3/uL Low 0.83-4.51 [facility] Comment on above: Performed By: #### L 100.0100, L500.2500, L300.3900 ####[facility] [address] [place], [address] Absolute Neut 16.9 X10 3/uL High 2.0-7.7 [facility] Comment on above: Performed By: #### L 100.0100, L500.2500, L300.3900 ####[facility] [address] [place], [address] Basophils/100 WBC (Bld) 0.1 % Normal 0-1 [facility] Comment on above: Performed By: #### L 100.0100, L500.2500, L300.3900 ####[facility] [address] [place], [address] Eosinophils/100 WBC (Bld) 0.0 % Normal 0-5 [facility] Comment on above: Performed By: #### L 100.0100, L500.2500, L300.3900 ####[facility] [address] [place], [address] Erythrocyte distribution width (RBC) [Ratio] 14.8 % High 11.6-14.6 [facility] Comment on above: Performed By: #### L 100.0100, L500.2500, L300.3900 ####[facility] [address] [place], [address] Hematocrit (Bld) [Volume fraction] 30.0 % Low 40-54 [facility] Comment on above: Performed By: #### L 100.0100, L500.2500, L300.3900 ####[facility] [address] [place], [address] Hemoglobin (Bld) [Mass/Vol] 9.8 g/dL Low 13.0-16.5 [facility] Comment on above: Performed By: #### L 100.0100, L500.2500, L300.3900 ####[facility] [address] [place], [address] IG% 0.900 Normal 0.0-0.9 [facility] Comment on above: Result Comment: IG% - Immature Granulocytes (promyelocytes, myelocytes andmetamyelocytes) > 1% indicates that a LEFT SHIFT is Present. Performed By: #### L 100.0100, L500.2500, L300.3900 ####[facility] [address] [place], [address] Lymphocytes/100 WBC (Bld) 2.7 % Low 19-41 [facility] Comment on above: Performed By: #### L 100.0100, L500.2500, L300.3900 ####[facility] [address] [place], [address] MCH (RBC) [Entitic mass] 30.2 pg Normal 27.0-32.0 [facility] Comment on above: Performed By: #### L 100.0100, L500.2500, L300.3900 ####[facility] [address] [place], [address] MCHC (RBC) [Mass/Vol] 32.7 g/dL Normal 32-36 [facility] Comment on above: Performed By: #### L 100.0100, L500.2500, L300.3900 ####[facility] [address] [place], [address] MCV (RBC) [Entitic vol] 92.3 fL Normal 80-94 [facility] Comment on above: Performed By: #### L 100.0100, L500.2500, L300.3900 ####[facility] [address] [place], [address] Monocytes/100 WBC (Bld) 2.2 % Normal 0-10 [facility] Comment on above: Performed By: #### L 100.0100, L500.2500, L300.3900 ####[facility] [address] [place], [address] Neutrophils/100 WBC (Bld) 94.1 % High 47-70 [facility] Comment on above: Performed By: #### L 100.0100, L500.2500, L300.3900 ####[facility] [address] [place], [address] Nucleated RBC (Bld) [#/Vol] 0 10*3/uL Normal 0-5 [facility] Comment on above: Performed By: #### L 100.0100, L500.2500, L300.3900 ####[facility] [address] [place], [address] Platelet mean volume (Bld) [Entitic vol] 9.7 fL Normal 6.2-12.0 [facility] Comment on above: Performed By: #### L 100.0100, L500.2500, L300.3900 ####[facility] [address] [place], [address] Platelets (Bld) [#/Vol] 229 10*3/uL Normal 150-450 [facility] Comment on above: Performed By: #### L 100.0100, L500.2500, L300.3900 ####[facility] [address] [place], [address] RBC (Bld) [#/Vol] 3.25 10*6/uL Low 4.6-6.2 [facility] Comment on above: Performed By: #### L 100.0100, L500.2500, L300.3900 ####[facility] [address] [place], [address] RDW SD 50.0 fl High 35.1-43.9 [facility] Comment on above: Performed By: #### L 100.0100, L500.2500, L300.3900 ####[facility] [address] [place], [address] WBC (Bld) [#/Vol] 18.0 10*3/uL High 4.4-11.0 [facility] Comment on above: Performed By: #### L 100.0100, L500.2500, L300.3900 ####[facility] [address] [place], [address] Prothrombin Time w/INRon INR Coag (PPP) [Relative time] 2.4 {INR} Normal [facility] Comment on above: Performed By: #### L 100.0100, L500.2500, L300.3900 ####[facility] [address] [place], [address] PT Coag (PPP) [Time] 25.8 s High 11.7-14.9 [facility] Comment on above: Performed By: #### L 100.0100, L500.2500, L300.3900 ####[facility] [address] [place], [address] Basic Metabolic Profile (BMP )on 05-11-2024 BUN/CRE 14.8 RATIO Normal 10-20 [facility] Comment on above: Performed By: #### L 100.0100, L500.2500, L300.3900 ####[facility] [address] [place], [address] CA,Total 8.0 mg/dL Low 8.5-10.1 [facility] Comment on above: Performed By: #### L 100.0100, L500.2500, L300.3900 ####[facility] [address] [place], [address] Chloride [Moles/Vol] 103 mmol/L Normal 98-107 [facility] Comment on above: Performed By: #### L 100.0100, L500.2500, L300.3900 ####[facility] [address] [place], [address] CO2 [Moles/Vol] 25.0 mmol/L Normal 21.0-32.0 [facility] Comment on above: Performed By: #### L 100.0100, L500.2500, L300.3900 ####[facility] [address] [place], [address] Creatinine [Mass/Vol] 0.61 mg/dL Low 0.70-1.30 [facility] Comment on above: Result Comment: The validity of the calculated GFR GFRAA in patients over70 years has not been determined. Clinical correlation isessential. Performed By: #### L 100.0100, L500.2500, L300.3900 ####[facility] [address] [place], [address] ECRCL 85.50 ml/min Normal [facility] Comment on above: Performed By: #### L 100.0100, L500.2500, L300.3900 ####[facility] [address] [place], [address] EST GFR - AA 169 mL/min Normal >60 [facility] Comment on above: Result Comment: Afri can Macedonian GFR Calc Performed By: #### L 100.0100, L500.2500, L300.3900 ####[facility] [address] [place], [address] GAP 7 Normal 5-15 [facility] Comment on above: Performed By: #### L 100.0100, L500.2500, L300.3900 ####[facility] [address] [place], [address] GFR/1.73 sq M.predicted among non-blacks MDRD (S/P/Bld) [Vol rate/Area] 140 mL/min/{1.73_m2} Normal >60 [facility] Comment on above: Result Comment: Non- GFR Calc Performed By: #### L 100.0100, L500.2500, L300.3900 ####[facility] [address] [place], [address] Glucose [Mass/Vol] 213 mg/dL High 74-106 [facility] Comment on above: Result Comment: Gluc ose result greater than or equal to 200 mg/dLsuggests DIABETES MELLITUS per A.D.A. criteria. Performed By: #### L 100.0100, L500.2500, L300.3900 ####[facility] [address] [place], [address] Potassium [Moles/Vol] 2.8 mmol/L Low 3.5-5.1 [facility] Comment on above: Performed By: #### L 100.0100, L500.2500, L300.3900 ####[facility] [address] [place], [address] Sodium [Moles/Vol] 135 mmol/L Low 136-145 [facility] Comment on above: Performed By: #### L 100.0100, L500.2500, L300.3900 ####[facility] [address] [place], [address] Urea nitrogen [Mass/Vol] 9 mg/dL Normal 7-18 [facility] Comment on above: Performed By: #### L 100.0100, L500.2500, L300.3900 ####[facility] [address] [place], [address] CBC W/Diff, Automatedon 04-29 Absolute Lymph 0.49 X10 3/uL Low 0.83-4.51 [facility] Comment on above: Performed By: #### L 100.0100, L500.2500, L300.3900 ####[facility] [address] [place], [address] Absolute Neut 5.3 X10 3/uL Normal 2.0-7.7 [facility] Comment on above: Performed By: #### L 100.0100, L500.2500, L300.3900 ####[facility] [address] [place], [address] Basophils/100 WBC (Bld) 0.2 % Normal 0-1 [facility] Comment on above: Performed By: #### L 100.0100, L500.2500, L300.3900 ####[facility] [address] [place], [address] Eosinophils/100 WBC (Bld) 0.2 % Normal 0-5 [facility] Comment on above: Performed By: #### L 100.0100, L500.2500, L300.3900 ####[facility] [address] [place], [address] Erythrocyte distribution width (RBC) [Ratio] 14.6 % Normal 11.6-14.6 [facility] Comment on above: Performed By: #### L 100.0100, L500.2500, L300.3900 ####[facility] [address] [place], [address] Hematocrit (Bld) [Volume fraction] 31.2 % Low 40-54 [facility] Comment on above: Performed By: #### L 100.0100, L500.2500, L300.3900 ####[facility] [address] [place], [address] Hemoglobin (Bld) [Mass/Vol] 10.3 g/dL Low 13.0-16.5 [facility] Comment on above: Performed By: #### L 100.0100, L500.2500, L300.3900 ####[facility] [address] [place], [address] IG% 1.000 High 0.0-0.9 [facility] Comment on above: Result Comment: IG% - Immature Granulocytes (promyelocytes, myelocytes andmetamyelocytes) > 1% indicates that a LEFT SHIFT is Present. Performed By: #### L 100.0100, L500.2500, L300.3900 ####[facility] [address] [place], [address] Lymphocytes/100 WBC (Bld) 8.2 % Low 19-41 [facility] Comment on above: Performed By: #### L 100.0100, L500.2500, L300.3900 ####[facility] [address] [place], [address] MCH (RBC) [Entitic mass] 30.4 pg Normal 27.0-32.0 [facility] Comment on above: Performed By: #### L 100.0100, L500.2500, L300.3900 ####[facility] [address] [place], [address] MCHC (RBC) [Mass/Vol] 33.0 g/dL Normal 32-36 [facility] Comment on above: Performed By: #### L 100.0100, L500.2500, L300.3900 ####[facility] [address] [place], [address] MCV (RBC) [Entitic vol] 92.0 fL Normal 80-94 [facility] Comment on above: Performed By: #### L 100.0100, L500.2500, L300.3900 ####[facility] [address] [place], [address] Monocytes/100 WBC (Bld) 1.8 % Normal 0-10 [facility] Comment on above: Performed By: #### L 100.0100, L500.2500, L300.3900 ####[facility] [address] [place], [address] Neutrophils/100 WBC (Bld) 88.6 % High 47-70 [facility] Comment on above: Performed By: #### L 100.0100, L500.2500, L300.3900 ####[facility] [address] [place], [address] Nucleated RBC (Bld) [#/Vol] 0 10*3/uL Normal 0-5 [facility] Comment on above: Performed By: #### L 100.0100, L500.2500, L300.3900 ####[facility] [address] [place], [address] Platelet mean volume (Bld) [Entitic vol] 9.7 fL Normal 6.2-12.0 [facility] Comment on above: Performed By: #### L 100.0100, L500.2500, L300.3900 ####[facility] [address] [place], [address] Platelets (Bld) [#/Vol] 169 10*3/uL Normal 150-450 [facility] Comment on above: Performed By: #### L 100.0100, L500.2500, L300.3900 ####[facility] [address] [place], [address] RBC (Bld) [#/Vol] 3.39 10*6/uL Low 4.6-6.2 [facility] Comment on above: Performed By: #### L 100.0100, L500.2500, L300.3900 ####[facility] [address] [place], [address] RDW SD 49.8 fl High 35.1-43.9 [facility] Comment on above: Performed By: #### L 100.0100, L500.2500, L300.3900 ####[facility] [address] [place], [address] WBC (Bld) [#/Vol] 6.0 10*3/uL Normal 4.4-11.0 [facility] Comment on above: Performed By: #### L 100.0100, L500.2500, L300.3900 ####[facility] [address] [place], [address] Magnesiumon 05-11-2024 Magnesium [Mass/Vol] 1.8 mg/dL Normal 1.6-2.6 [facility] Comment on above: Performed By: #### L 501.5200, L501.2300 ####[facility] [address] [place], [address] Phosphoruson 05-11-2024 Phosphate [Mass/Vol] 2.3 mg/dL Low 2.5-4.9 [facility] Comment on above: Performed By: #### L 501.5200, L501.2300 ####[facility] [address] [place], [address] Prothrombin Time w/INRon INR Coag (PPP) [Relative time] 1.9 {INR} Normal [facility] Comment on above: Performed By: #### L 100.0100, L500.2500, L300.3900 ####[facility] [address] [place], [address] PT Coag (PPP) [Time] 21.2 s High 11.7-14.9 [facility] Comment on above: Performed By: #### L 100.0100, L500.2500, L300.3900 ####[facility] [address] [place], [address] RESPIRATORY PANEL MOLECULARo n 05-11-2024 RP PANEL Normal [facility] Comment on above: Performed By: #### M 100.638 ####[facility] [address] [place], [address] 12 Lead EKGon 05-10-2024 12 Lead EKG Normal [facility] BNP,B-Type NATRIURETIC PEPTI Cayetano 05-10-2024 Natriuretic peptide B (Bld) [Mass/Vol] 154.8 pg/mL High 0-100 [facility] Comment on above: Performed By: #### L 100.0100, L503.6620, L501.4020, L500.2500 ####[facility] [address] [place], [address] Basic Metabolic Profile (BMP )on 05-10-2024 BUN/CRE 12.7 RATIO Normal -20 [facility] Comment on above: Order Comment: f/u h ypokalemia Performed By: #### L 500.2500 ####[facility] [address] [place], [address] CA,Total 8.1 mg/dL Low 8.5-10.1 [facility] Comment on above: Order Comment: f/u h ypokalemia Performed By: #### L 500.2500 ####[facility] [address] [place], [address] Chloride [Moles/Vol] 103 mmol/L Normal 98-107 [facility] Comment on above: Order Comment: f/u h ypokalemia Performed By: #### L 500.2500 ####[facility] [address] [place], [address] CO2 [Moles/Vol] 24.0 mmol/L Normal 21.0-32.0 [facility] Comment on above: Order Comment: f/u h ypokalemia Performed By: #### L 500.2500 ####[facility] [address] [place], [address] Creatinine [Mass/Vol] 0.71 mg/dL Normal 0.70-1.30 [facility] Comment on above: Order Comment: f/u h ypokalemia Result Comment: The validity of the calculated GFR GFRAA in patients over70 years has not been determined. Clinical correlation isessential. Performed By: #### L 500.2500 ####[facility] [address] [place], [address] ECRCL 88.38 ml/min Normal [facility] Comment on above: Order Comment: f/u h ypokalemia Performed By: #### L 500.2500 ####[facility] [address] [place], [address] EST GFR - AA 143 mL/min Normal >60 [facility] Comment on above: Order Comment: f/u h ypokalemia Result Comment: Afri can Macedonian GFR Calc Performed By: #### L 500.2500 ####[facility] [address] [place], [address] GAP 9 Normal 5-15 [facility] Comment on above: Order Comment: f/u h ypokalemia Performed By: #### L 500.2500 ####[facility] [address] [place], [address] GFR/1.73 sq M.predicted among non-blacks MDRD (S/P/Bld) [Vol rate/Area] 118 mL/min/{1.73_m2} Normal >60 [facility] Comment on above: Order Comment: f/u h ypokalemia Result Comment: Non- GFR Calc Performed By: #### L 500.2500 ####[facility] [address] [place], [address] Glucose [Mass/Vol] 146 mg/dL High 74-106 [facility] Comment on above: Order Comment: f/u h ypokalemia Result Comment: Fast ing Glucose result greater than or equal to 126 mg/dLsuggests DIABETES MELLITUS per A.D.A. criteria. Performed By: #### L 500.2500 ####[facility] [address] [place], [address] Potassium [Moles/Vol] 3.1 mmol/L Low 3.5-5.1 [facility] Comment on above: Order Comment: f/u h ypokalemia Performed By: #### L 500.2500 ####[facility] [address] [place], [address] Sodium [Moles/Vol] 136 mmol/L Normal 136-145 [facility] Comment on above: Order Comment: f/u h ypokalemia Performed By: #### L 500.2500 ####[facility] [address] [place], [address] Urea nitrogen [Mass/Vol] 9 mg/dL Normal 7-18 [facility] Comment on above: Order Comment: f/u h ypokalemia Performed By: #### L 500.2500 ####[facility] [address] [place], [address] BUN/CRE 10.2 RATIO Normal 10-20 [facility] Comment on above: Order Comment: 'TROP ' Serial specimen #1, #2 or #3: 1 Performed By: #### L 100.0100, L503.6620, L501.4020, L500.2500 ####[facility] [address] [place], [address] CA,Total 8.3 mg/dL Low 8.5-10.1 [facility] Comment on above: Order Comment: 'TROP ' Serial specimen #1, #2 or #3: 1 Performed By: #### L 100.0100, L503.6620, L501.4020, L500.2500 ####[facility] [address] [place], [address] Chloride [Moles/Vol] 103 mmol/L Normal 98-107 [facility] Comment on above: Order Comment: 'TROP ' Serial specimen #1, #2 or #3: 1 Performed By: #### L 100.0100, L503.6620, L501.4020, L500.2500 ####[facility] [address] [place], [address] CO2 [Moles/Vol] 26.0 mmol/L Normal 21.0-32.0 [facility] Comment on above: Order Comment: 'TROP ' Serial specimen #1, #2 or #3: 1 Performed By: #### L 100.0100, L503.6620, L501.4020, L500.2500 ####[facility] [address] [place], [address] Creatinine [Mass/Vol] 0.98 mg/dL Normal 0.70-1.30 [facility] Comment on above: Order Comment: 'TROP ' Serial specimen #1, #2 or #3: 1 Result Comment: The validity of the calculated GFR GFRAA in patients over70 years has not been determined. Clinical correlation isessential. Performed By: #### L 100.0100, L503.6620, L501.4020, L500.2500 ####[facility] [address] [place], [address] ECRCL 67.45 ml/min Normal [facility] Comment on above: Order Comment: 'TROP ' Serial specimen #1, #2 or #3: 1 Performed By: #### L 100.0100, L503.6620, L501.4020, L500.2500 ####[facility] [address] [place], [address] EST GFR - AA 97 mL/min Normal >60 [facility] Comment on above: Order Comment: 'TROP ' Serial specimen #1, #2 or #3: 1 Result Comment: Afri can Macedonian GFR Calc Performed By: #### L 100.0100, L503.6620, L501.4020, L500.2500 ####[facility] [address] [place], [address] GAP 9 Normal 5-15 [facility] Comment on above: Order Comment: 'TROP ' Serial specimen #1, #2 or #3: 1 Performed By: #### L 100.0100, L503.6620, L501.4020, L500.2500 ####[facility] [address] [place], [address] GFR/1.73 sq M.predicted among non-blacks MDRD (S/P/Bld) [Vol rate/Area] 80 mL/min/{1.73_m2} Normal >60 [facility] Comment on above: Order Comment: 'TROP ' Serial specimen #1, #2 or #3: 1 Result Comment: Non- GFR Calc Performed By: #### L 100.0100, L503.6620, L501.4020, L500.2500 ####[facility] [address] [place], [address] Glucose [Mass/Vol] 153 mg/dL High 74-106 [facility] Comment on above: Order Comment: 'TROP ' Serial specimen #1, #2 or #3: 1 Result Comment: Fast ing Glucose result greater than or equal to 126 mg/dLsuggests DIABETES MELLITUS per A.D.A. criteria. Performed By: #### L 100.0100, L503.6620, L501.4020, L500.2500 ####[facility] [address] [place], [address] Potassium [Moles/Vol] 2.5 mmol/L Invalid Interpretation Code 3.5-5.1 [facility] Comment on above: Order Comment: 'TROP ' Serial specimen #1, #2 or #3: 1 Result Comment: Crit ical Result(s) Called at: 18:19:21 05/10/2024 by:MARY Results read back by ANDRZEJ Performed By: #### L 100.0100, L503.6620, L501.4020, L500.2500 ####[facility] [address] [place], [address] Sodium [Moles/Vol] 138 mmol/L Normal 136-145 [facility] Comment on above: Order Comment: 'TROP ' Serial specimen #1, #2 or #3: 1 Performed By: #### L 100.0100, L503.6620, L501.4020, L500.2500 ####[facility] [address] [place], [address] Urea nitrogen [Mass/Vol] 10 mg/dL Normal 7-18 [facility] Comment on above: Order Comment: 'TROP ' Serial specimen #1, #2 or #3: 1 Performed By: #### L 100.0100, L503.6620, L501.4020, L500.2500 ####[facility] [address] [place], [address] CBC W/Diff, Automatedon 10-1 -2023 Absolute Lymph 0.83 X10 3/uL Normal 0.83-4.51 [facility] Comment on above: Performed By: #### L 100.0100, L503.6620, L501.4020, L500.2500 ####[facility] [address] [place], [address] Absolute Neut 9.7 X10 3/uL High 2.0-7.7 [facility] Comment on above: Performed By: #### L 100.0100, L503.6620, L501.4020, L500.2500 ####[facility] [address] [place], [address] Basophils/100 WBC (Bld) 0.2 % Normal 0-1 [facility] Comment on above: Performed By: #### L 100.0100, L503.6620, L501.4020, L500.2500 ####[facility] [address] [place], [address] Eosinophils/100 WBC (Bld) 0.4 % Normal 0-5 [facility] Comment on above: Performed By: #### L 100.0100, L503.6620, L501.4020, L500.2500 ####[facility] [address] [place], [address] Erythrocyte distribution width (RBC) [Ratio] 14.8 % High 11.6-14.6 [facility] Comment on above: Performed By: #### L 100.0100, L503.6620, L501.4020, L500.2500 ####[facility] [address] [place], [address] Hematocrit (Bld) [Volume fraction] 30.0 % Low 40-54 [facility] Comment on above: Performed By: #### L 100.0100, L503.6620, L501.4020, L500.2500 ####[facility] [address] [place], [address] Hemoglobin (Bld) [Mass/Vol] 10.0 g/dL Low 13.0-16.5 [facility] Comment on above: Performed By: #### L 100.0100, L503.6620, L501.4020, L500.2500 ####[facility] [address] [place], [address] IG% 0.700 Normal 0.0-0.9 [facility] Comment on above: Result Comment: IG% - Immature Granulocytes (promyelocytes, myelocytes andmetamyelocytes) > 1% indicates that a LEFT SHIFT is Present. Performed By: #### L 100.0100, L503.6620, L501.4020, L500.2500 ####[facility] [address] [place], [address] Lymphocytes/100 WBC (Bld) 7.4 % Low 19-41 [facility] Comment on above: Performed By: #### L 100.0100, L503.6620, L501.4020, L500.2500 ####[facility] [address] [place], [address] MCH (RBC) [Entitic mass] 31.0 pg Normal 27.0-32.0 [facility] Comment on above: Performed By: #### L 100.0100, L503.6620, L501.4020, L500.2500 ####[facility] [address] [place], [address] MCHC (RBC) [Mass/Vol] 33.3 g/dL Normal 32-36 [facility] Comment on above: Performed By: #### L 100.0100, L503.6620, L501.4020, L500.2500 ####[facility] [address] [place], [address] MCV (RBC) [Entitic vol] 92.9 fL Normal 80-94 [facility] Comment on above: Performed By: #### L 100.0100, L503.6620, L501.4020, L500.2500 ####[facility] [address] [place], [address] Monocytes/100 WBC (Bld) 4.8 % Normal 0-10 [facility] Comment on above: Performed By: #### L 100.0100, L503.6620, L501.4020, L500.2500 ####[facility] [address] [place], [address] Neutrophils/100 WBC (Bld) 86.5 % High 47-70 [facility] Comment on above: Performed By: #### L 100.0100, L503.6620, L501.4020, L500.2500 ####[facility] [address] [place], [address] Nucleated RBC (Bld) [#/Vol] 0 10*3/uL Normal 0-5 [facility] Comment on above: Performed By: #### L 100.0100, L503.6620, L501.4020, L500.2500 ####[facility] [address] [place], [address] Platelet mean volume (Bld) [Entitic vol] 9.4 fL Normal 6.2-12.0 [facility] Comment on above: Performed By: #### L 100.0100, L503.6620, L501.4020, L500.2500 ####[facility] [address] [place], [address] Platelets (Bld) [#/Vol] 187 10*3/uL Normal 150-450 [facility] Comment on above: Performed By: #### L 100.0100, L503.6620, L501.4020, L500.2500 ####[facility] [address] [place], [address] RBC (Bld) [#/Vol] 3.23 10*6/uL Low 4.6-6.2 [facility] Comment on above: Performed By: #### L 100.0100, L503.6620, L501.4020, L500.2500 ####[facility] [address] [place], [address] RDW SD 50.5 fl High 35.1-43.9 [facility] Comment on above: Performed By: #### L 100.0100, L503.6620, L501.4020, L500.2500 ####[facility] [address] [place], [address] WBC (Bld) [#/Vol] 11.3 10*3/uL High 4.4-11.0 [facility] Comment on above: Performed By: #### L 100.0100, L503.6620, L501.4020, L500.2500 ####[facility] [address] [place], [address] Chest PA and Lateralon 05-10 Chest PA and Lateral Normal [facility] Emergency Department Summary on 05-10-2024 Emergency Department Summary Normal [facility] H AND P Exam - Hospitaliston 05-10-2024 H&P Exam - Hospitalist Normal [facility] L501.4020on 05-10-2024 TROPONIN-I HS 21 pg/mL Normal 3.0-78.0 [facility] Comment on above: Order Comment: 'TROP ' Serial specimen #1, #2 or #3: 1 Result Comment: Plea se Note: New Test Units and Gender Specific Reference Ranges. For more information see Policy Stat Procedure [place] High Sensitivity Troponin (TNIH) and attachments. Performed By: #### L 100.0100, L503.6620, L501.4020, L500.2500 ####[facility] [address] [place], [address] M100.678on 05-10-2024 M100.678 Pending SARS-CoV-2 (COVID 19) Negative INFLUENZA A Negative INFLUENZA B Negative RSV PCR Negative Normal [facility] Comment on above: Performed By: #### M 100.678 ####[facility] [address] [place], [address] Prothrombin Time w/INRon INR Coag (PPP) [Relative time] 2.0 {INR} Normal [facility] Comment on above: Performed By: #### L 300.3900 ####[facility] [address] [place], [address] PT Coag (PPP) [Time] 22.6 s High 11.7-14.9 [facility] Comment on above: Performed By: #### L 300.3900 ####[facility] [address] [place], [address] Prothrombin Time w/INRon INR Coag (PPP) [Relative time] 3.0 {INR} Normal [facility] Comment on above: Performed By: #### L 300.3900 ####[facility] [address] [place], [address] PT Coag (PPP) [Time] 31.0 s High 11.7-14.9 [facility] Comment on above: Performed By: #### L 300.3900 ####[facility] [address] [place], [address] Prothrombin Time w/INRon INR Coag (PPP) [Relative time] 7.0 {INR} Invalid Interpretation Code [facility] Comment on above: Order Comment: CRITI NICK VALUE CALLED TO PSMXCH42/07/24 1039 Amna Cuenca.RESULTS READ BACK BY SAME. Performed By: #### L 300.3900 ####[facility] [address] [place], [address] PT Coag (PPP) [Time] 59.5 s High 11.7-14.9 [facility] Comment on above: Order Comment: CRITI NICK VALUE CALLED TO LZWNGP97/07/24 1039 Amna Cuenca.RESULTS READ BACK BY SAME. Performed By: #### L 300.3900 ####[facility] [address] [place], [address] Pulmonary Visit Reporton Pulmonary Visit Report Normal [facility] Prothrombin Time w/INRon INR Coag (PPP) [Relative time] 4.3 {INR} Invalid Interpretation Code [facility] Comment on above: Order Comment: CRITI NICK VALUE CALLED TO MABEL GOMES04/28/24 1220 Amna Cuenca.RESULTS READ BACK BY SAME. Performed By: #### L 300.3900 ####[facility] [address] [place], [address] PT Coag (PPP) [Time] 40.9 s High 11.7-14.9 [facility] Comment on above: Order Comment: CRITI NICK VALUE CALLED TO MABEL GOMES04/28/24 1220 Amna Cuenca.RESULTS READ BACK BY SAME. Performed By: #### L 300.3900 ####[facility] [address] [place], [address] Prothrombin Time w/INRon INR Normal [facility] Comment on above: Result Comment: Canc elled via OM: Order cancelled - Patient discharged Performed By: #### L 300.3900 ####[facility] [address] [place], [address] PROTIME Normal 11.7-14.9 [facility] Comment on above: Result Comment: Canc elled via OM: Order cancelled - Patient discharged Performed By: #### L 300.3900 ####[facility] [address] [place], [address] 12 Lead EKG performed by [facility] on 04-24-2024 12 Lead EKG performed by [facility] Normal [facility] Cardiology Visit Reporton Cardiology Visit Report Normal [facility] Prothrombin Time w/INRon INR Normal [facility] Comment on above: Result Comment: Canc elled via OM: Order cancelled - Patient discharged Performed By: #### L 300.3900 ####[facility] [address] [place], [address] PROTIME Normal 11.7-14.9 [facility] Comment on above: Result Comment: Canc elled via OM: Order cancelled - Patient discharged Performed By: #### L 300.3900 ####[facility] [address] [place], [address] Basic Metabolic Profile (BMP )on 04-23-2024 BUN/CRE 24.1 RATIO High 10-20 [facility] Comment on above: Performed By: #### L 100.0100, L500.2500 ####[facility] [address] [place], [address] CA,Total 8.9 mg/dL Normal 8.5-10.1 [facility] Comment on above: Performed By: #### L 100.0100, L500.2500 ####[facility] [address] [place], [address] Chloride [Moles/Vol] 100 mmol/L Normal 98-107 [facility] Comment on above: Performed By: #### L 100.0100, L500.2500 ####[facility] [address] [place], [address] CO2 [Moles/Vol] 24.0 mmol/L Normal 21.0-32.0 [facility] Comment on above: Performed By: #### L 100.0100, L500.2500 ####[facility] [address] [place], [address] Creatinine [Mass/Vol] 0.91 mg/dL Normal 0.70-1.30 [facility] Comment on above: Result Comment: The validity of the calculated GFR GFRAA in patients over70 years has not been determined. Clinical correlation isessential. Performed By: #### L 100.0100, L500.2500 ####[facility] [address] [place], [address] ECRCL 72.64 ml/min Normal [facility] Comment on above: Performed By: #### L 100.0100, L500.2500 ####[facility] [address] [place], [address] EST GFR - AA 106 mL/min Normal >60 [facility] Comment on above: Result Comment: Afri can Macedonian GFR Calc Performed By: #### L 100.0100, L500.2500 ####[facility] [address] [place], [address] GAP 8 Normal 5-15 [facility] Comment on above: Performed By: #### L 100.0100, L500.2500 ####[facility] [address] [place], [address] GFR/1.73 sq M.predicted among non-blacks MDRD (S/P/Bld) [Vol rate/Area] 88 mL/min/{1.73_m2} Normal >60 [facility] Comment on above: Result Comment: Non- GFR Calc Performed By: #### L 100.0100, L500.2500 ####[facility] [address] [place], [address] Glucose [Mass/Vol] 155 mg/dL High 74-106 [facility] Comment on above: Result Comment: Fast ing Glucose result greater than or equal to 126 mg/dLsuggests DIABETES MELLITUS per A.D.A. criteria. Performed By: #### L 100.0100, L500.2500 ####[facility] [address] [place], [address] Potassium [Moles/Vol] 3.7 mmol/L Normal 3.5-5.1 [facility] Comment on above: Performed By: #### L 100.0100, L500.2500 ####[facility] [address] [place], [address] Sodium [Moles/Vol] 132 mmol/L Low 136-145 [facility] Comment on above: Performed By: #### L 100.0100, L500.2500 ####[facility] [address] [place], [address] Urea nitrogen [Mass/Vol] 22 mg/dL High 7-18 [facility] Comment on above: Performed By: #### L 100.0100, L500.2500 ####[facility] [address] [place], [address] CBC W/Diff, Automatedon -2 Absolute Lymph 0.63 X10 3/uL Low 0.83-4.51 [facility] Comment on above: Performed By: #### L 100.0100, L500.2500 ####[facility] [address] [place], [address] Absolute Neut 17.6 X10 3/uL High 2.0-7.7 [facility] Comment on above: Performed By: #### L 100.0100, L500.2500 ####[facility] [address] [place], [address] Basophils/100 WBC (Bld) 0.1 % Normal 0-1 [facility] Comment on above: Performed By: #### L 100.0100, L500.2500 ####[facility] [address] [place], [address] Eosinophils/100 WBC (Bld) 0.0 % Normal 0-5 [facility] Comment on above: Performed By: #### L 100.0100, L500.2500 ####[facility] [address] [place], [address] Erythrocyte distribution width (RBC) [Ratio] 14.3 % Normal 11.6-14.6 [facility] Comment on above: Performed By: #### L 100.0100, L500.2500 ####[facility] [address] [place], [address] Hematocrit (Bld) [Volume fraction] 31.0 % Low 40-54 [facility] Comment on above: Performed By: #### L 100.0100, L500.2500 ####[facility] [address] [place], [address] Hemoglobin (Bld) [Mass/Vol] 10.3 g/dL Low 13.0-16.5 [facility] Comment on above: Performed By: #### L 100.0100, L500.2500 ####[facility] [address] [place], [address] IG% 1.200 High 0.0-0.9 [facility] Comment on above: Result Comment: IG% - Immature Granulocytes (promyelocytes, myelocytes andmetamyelocytes) > 1% indicates that a LEFT SHIFT is Present. Performed By: #### L 100.0100, L500.2500 ####[facility] [address] [place], [address] Lymphocytes/100 WBC (Bld) 3.3 % Low 19-41 [facility] Comment on above: Performed By: #### L 100.0100, L500.2500 ####[facility] [address] [place], [address] MCH (RBC) [Entitic mass] 30.6 pg Normal 27.0-32.0 [facility] Comment on above: Performed By: #### L 100.0100, L500.2500 ####[facility] [address] [place], [address] MCHC (RBC) [Mass/Vol] 33.2 g/dL Normal 32-36 [facility] Comment on above: Performed By: #### L 100.0100, L500.2500 ####[facility] [address] [place], [address] MCV (RBC) [Entitic vol] 92.0 fL Normal 80-94 [facility] Comment on above: Performed By: #### L 100.0100, L500.2500 ####[facility] [address] [place], [address] Monocytes/100 WBC (Bld) 2.8 % Normal 0-10 [facility] Comment on above: Performed By: #### L 100.0100, L500.2500 ####[facility] [address] [place], [address] Neutrophils/100 WBC (Bld) 92.6 % High 47-70 [facility] Comment on above: Performed By: #### L 100.0100, L500.2500 ####[facility] [address] [place], [address] Nucleated RBC (Bld) [#/Vol] 0 10*3/uL Normal 0-5 [facility] Comment on above: Performed By: #### L 100.0100, L500.2500 ####[facility] [address] [place], [address] Platelet mean volume (Bld) [Entitic vol] 10.3 fL Normal 6.2-12.0 [facility] Comment on above: Performed By: #### L 100.0100, L500.2500 ####[facility] [address] [place], [address] Platelets (Bld) [#/Vol] 271 10*3/uL Normal 150-450 [facility] Comment on above: Performed By: #### L 100.0100, L500.2500 ####[facility] [address] [place], [address] RBC (Bld) [#/Vol] 3.37 10*6/uL Low 4.6-6.2 [facility] Comment on above: Performed By: #### L 100.0100, L500.2500 ####[facility] [address] [place], [address] RDW SD 47.8 fl High 35.1-43.9 [facility] Comment on above: Performed By: #### L 100.0100, L500.2500 ####[facility] [address] [place], [address] WBC (Bld) [#/Vol] 19.0 10*3/uL High 4.4-11.0 [facility] Comment on above: Performed By: #### L 100.0100, L500.2500 ####[facility] [address] [place], [address] Discharge Instructionon 03-31 Discharge Instruction Normal [facility] Prothrombin Time w/INRon INR Coag (PPP) [Relative time] 1.4 {INR} Normal [facility] Comment on above: Performed By: #### L 300.3900 ####[facility] [address] [place], [address] PT Coag (PPP) [Time] 17.0 s High 11.7-14.9 [facility] Comment on above: Performed By: #### L 300.3900 ####[facility] [address] [place], [address] Basic Metabolic Profile (BMP )on 04-22-2024 BUN/CRE 17.9 RATIO Normal 10-20 [facility] Comment on above: Performed By: #### L 500.2500, L300.3900, L100.0100 ####[facility] [address] [place], [address] CA,Total 8.6 mg/dL Normal 8.5-10.1 [facility] Comment on above: Performed By: #### L 500.2500, L300.3900, L100.0100 ####[facility] [address] [place], [address] Chloride [Moles/Vol] 99 mmol/L Normal 98-107 [facility] Comment on above: Performed By: #### L 500.2500, L300.3900, L100.0100 ####[facility] [address] [place], [address] CO2 [Moles/Vol] 24.0 mmol/L Normal 21.0-32.0 [facility] Comment on above: Performed By: #### L 500.2500, L300.3900, L100.0100 ####[facility] [address] [place], [address] Creatinine [Mass/Vol] 0.84 mg/dL Normal 0.70-1.30 [facility] Comment on above: Result Comment: The validity of the calculated GFR GFRAA in patients over70 years has not been determined. Clinical correlation isessential. Performed By: #### L 500.2500, L300.3900, L100.0100 ####[facility] [address] [place], [address] ECRCL 78.69 ml/min Normal [facility] Comment on above: Performed By: #### L 500.2500, L300.3900, L100.0100 ####[facility] [address] [place], [address] EST GFR - AA 117 mL/min Normal >60 [facility] Comment on above: Result Comment: Afri can Macedonian GFR Calc Performed By: #### L 500.2500, L300.3900, L100.0100 ####[facility] [address] [place], [address] GAP 6 Normal 5-15 [facility] Comment on above: Performed By: #### L 500.2500, L300.3900, L100.0100 ####[facility] [address] [place], [address] GFR/1.73 sq M.predicted among non-blacks MDRD (S/P/Bld) [Vol rate/Area] 97 mL/min/{1.73_m2} Normal >60 [facility] Comment on above: Result Comment: Non- GFR Calc Performed By: #### L 500.2500, L300.3900, L100.0100 ####[facility] [address] [place], [address] Glucose [Mass/Vol] 156 mg/dL High 74-106 [facility] Comment on above: Result Comment: Fast ing Glucose result greater than or equal to 126 mg/dLsuggests DIABETES MELLITUS per A.D.A. criteria. Performed By: #### L 500.2500, L300.3900, L100.0100 ####[facility] [address] [place], [address] Potassium [Moles/Vol] 3.4 mmol/L Low 3.5-5.1 [facility] Comment on above: Performed By: #### L 500.2500, L300.3900, L100.0100 ####[facility] [address] [place], [address] Sodium [Moles/Vol] 129 mmol/L Low 136-145 [facility] Comment on above: Performed By: #### L 500.2500, L300.3900, L100.0100 ####[facility] [address] [place], [address] Urea nitrogen [Mass/Vol] 15 mg/dL Normal 7-18 [facility] Comment on above: Performed By: #### L 500.2500, L300.3900, L100.0100 ####[facility] [address] [place], [address] CBC W/Diff, Automatedon 03-31 CBC W Auto Differential panel (Bld) Normal [facility] Comment on above: Performed By: #### L 500.2500, L300.3900, L100.0100 ####[facility] [address] [place], [address] MR/PN.GIon 04-22-2024 MR/PN.GI Normal [facility] Prothrombin Time w/INRon INR Coag (PPP) [Relative time] 1.3 {INR} Normal [facility] Comment on above: Performed By: #### L 500.2500, L300.3900, L100.0100 ####[facility] [address] [place], [address] PT Coag (PPP) [Time] 15.9 s High 11.7-14.9 [facility] Comment on above: Performed By: #### L 500.2500, L300.3900, L100.0100 ####[facility] [address] [place], [address] Respiratory Cultureon 2023 RESPC Mixed normal respiratory robin. No Streptococcus pneumoniae, beta-hemolytic Streptococcus or Staphylococcus aureus isolated. Normal [facility] Comment on above: Performed By: #### M 100.2000, M100.2400 ####[facility] [address] [place], [address] CBC W/Diff, Automatedon 03-31 Absolute Lymph 0.48 X10 3/uL Low 0.83-4.51 [facility] Comment on above: Performed By: #### L 503.6030, L100.0100, L503.6550, L500.4050, L300.3900 ####[facility] [address] [place], [address] Absolute Neut 7.8 X10 3/uL High 2.0-7.7 [facility] Comment on above: Performed By: #### L 503.6030, L100.0100, L503.6550, L500.4050, L300.3900 ####[facility] [address] [place], [address] Basophils/100 WBC (Bld) 0.2 % Normal 0-1 [facility] Comment on above: Performed By: #### L 503.6030, L100.0100, L503.6550, L500.4050, L300.3900 ####[facility] [address] [place], [address] Eosinophils/100 WBC (Bld) 0.1 % Normal 0-5 [facility] Comment on above: Performed By: #### L 503.6030, L100.0100, L503.6550, L500.4050, L300.3900 ####[facility] [address] [place], [address] Erythrocyte distribution width (RBC) [Ratio] 14.6 % Normal 11.6-14.6 [facility] Comment on above: Performed By: #### L 503.6030, L100.0100, L503.6550, L500.4050, L300.3900 ####[facility] [address] [place], [address] Hematocrit (Bld) [Volume fraction] 34.5 % Low 40-54 [facility] Comment on above: Performed By: #### L 503.6030, L100.0100, L503.6550, L500.4050, L300.3900 ####[facility] [address] [place], [address] Hemoglobin (Bld) [Mass/Vol] 11.4 g/dL Low 13.0-16.5 [facility] Comment on above: Performed By: #### L 503.6030, L100.0100, L503.6550, L500.4050, L300.3900 ####[facility] [address] [place], [address] IG% 1.100 High 0.0-0.9 [facility] Comment on above: Result Comment: IG% - Immature Granulocytes (promyelocytes, myelocytes andmetamyelocytes) > 1% indicates that a LEFT SHIFT is Present. Performed By: #### L 503.6030, L100.0100, L503.6550, L500.4050, L300.3900 ####[facility] [address] [place], [address] Lymphocytes/100 WBC (Bld) 5.6 % Low 19-41 [facility] Comment on above: Performed By: #### L 503.6030, L100.0100, L503.6550, L500.4050, L300.3900 ####[facility] [address] [place], [address] MCH (RBC) [Entitic mass] 30.6 pg Normal 27.0-32.0 [facility] Comment on above: Performed By: #### L 503.6030, L100.0100, L503.6550, L500.4050, L300.3900 ####[facility] [address] [place], [address] MCHC (RBC) [Mass/Vol] 33.0 g/dL Normal 32-36 [facility] Comment on above: Performed By: #### L 503.6030, L100.0100, L503.6550, L500.4050, L300.3900 ####[facility] [address] [place], [address] MCV (RBC) [Entitic vol] 92.7 fL Normal 80-94 [facility] Comment on above: Performed By: #### L 503.6030, L100.0100, L503.6550, L500.4050, L300.3900 ####[facility] [address] [place], [address] Monocytes/100 WBC (Bld) 1.6 % Normal 0-10 [facility] Comment on above: Performed By: #### L 503.6030, L100.0100, L503.6550, L500.4050, L300.3900 ####[facility] [address] [place], [address] Neutrophils/100 WBC (Bld) 91.4 % High 47-70 [facility] Comment on above: Performed By: #### L 503.6030, L100.0100, L503.6550, L500.4050, L300.3900 ####[facility] [address] [place], [address] Nucleated RBC (Bld) [#/Vol] 0 10*3/uL Normal 0-5 [facility] Comment on above: Performed By: #### L 503.6030, L100.0100, L503.6550, L500.4050, L300.3900 ####[facility] [address] [place], [address] Platelet mean volume (Bld) [Entitic vol] 10.1 fL Normal 6.2-12.0 [facility] Comment on above: Performed By: #### L 503.6030, L100.0100, L503.6550, L500.4050, L300.3900 ####[facility] [address] [place], [address] Platelets (Bld) [#/Vol] 223 10*3/uL Normal 150-450 [facility] Comment on above: Performed By: #### L 503.6030, L100.0100, L503.6550, L500.4050, L300.3900 ####[facility] [address] [place], [address] RBC (Bld) [#/Vol] 3.72 10*6/uL Low 4.6-6.2 [facility] Comment on above: Performed By: #### L 503.6030, L100.0100, L503.6550, L500.4050, L300.3900 ####[facility] [address] [place], [address] RDW SD 50.2 fl High 35.1-43.9 [facility] Comment on above: Performed By: #### L 503.6030, L100.0100, L503.6550, L500.4050, L300.3900 ####[facility] [address] [place], [address] WBC (Bld) [#/Vol] 8.5 10*3/uL Normal 4.4-11.0 [facility] Comment on above: Performed By: #### L 503.6030, L100.0100, L503.6550, L500.4050, L300.3900 ####[facility] [address] [place], [address] Comprehensive Metabolic Prof ilon 04-21-2024 Albumin [Mass/Vol] 3.1 g/dL Low 3.2-5.0 [facility] Comment on above: Performed By: #### L 503.6030, L100.0100, L503.6550, L500.4050, L300.3900 ####[facility] [address] [place], [address] Albumin/Globulin [Mass ratio] 0.8 {ratio} Low 0.9-2.4 [facility] Comment on above: Performed By: #### L 503.6030, L100.0100, L503.6550, L500.4050, L300.3900 ####[facility] [address] [place], [address] ALK P 74 U/L Normal 45-117 [facility] Comment on above: Performed By: #### L 503.6030, L100.0100, L503.6550, L500.4050, L300.3900 ####[facility] [address] [place], [address] ALT [Catalytic activity/Vol] 16 U/L Normal 16-61 [facility] Comment on above: Performed By: #### L 503.6030, L100.0100, L503.6550, L500.4050, L300.3900 ####[facility] [address] [place], [address] AST [Catalytic activity/Vol] 20 U/L Normal 15-37 [facility] Comment on above: Performed By: #### L 503.6030, L100.0100, L503.6550, L500.4050, L300.3900 ####[facility] [address] [place], [address] Bilirubin [Mass/Vol] 1.50 mg/dL High 0.20-1.00 [facility] Comment on above: Result Comment: For patients on eltrombopag therapy, use of Dimension [place] TBIL is not recommended. Performed By: #### L 503.6030, L100.0100, L503.6550, L500.4050, L300.3900 ####[facility] [address] [place], [address] BUN/CRE 10.5 RATIO Normal 10-20 [facility] Comment on above: Performed By: #### L 503.6030, L100.0100, L503.6550, L500.4050, L300.3900 ####[facility] [address] [place], [address] CA,Total 8.5 mg/dL Normal 8.5-10.1 [facility] Comment on above: Performed By: #### L 503.6030, L100.0100, L503.6550, L500.4050, L300.3900 ####[facility] [address] [place], [address] Chloride [Moles/Vol] 97 mmol/L Low 98-107 [facility] Comment on above: Performed By: #### L 503.6030, L100.0100, L503.6550, L500.4050, L300.3900 ####[facility] [address] [place], [address] CO2 [Moles/Vol] 27.0 mmol/L Normal 21.0-32.0 [facility] Comment on above: Performed By: #### L 503.6030, L100.0100, L503.6550, L500.4050, L300.3900 ####[facility] [address] [place], [address] Creatinine [Mass/Vol] 0.95 mg/dL Normal 0.70-1.30 [facility] Comment on above: Result Comment: The validity of the calculated GFR GFRAA in patients over70 years has not been determined. Clinical correlation isessential. Performed By: #### L 503.6030, L100.0100, L503.6550, L500.4050, L300.3900 ####[facility] [address] [place], [address] ECRCL 69.58 ml/min Normal [facility] Comment on above: Performed By: #### L 503.6030, L100.0100, L503.6550, L500.4050, L300.3900 ####[facility] [address] [place], [address] EST GFR - AA 101 mL/min Normal >60 [facility] Comment on above: Result Comment: Afri can Macedonian GFR Calc Performed By: #### L 503.6030, L100.0100, L503.6550, L500.4050, L300.3900 ####[facility] [address] [place], [address] GAP 8 Normal 5-15 [facility] Comment on above: Performed By: #### L 503.6030, L100.0100, L503.6550, L500.4050, L300.3900 ####[facility] [address] [place], [address] GFR/1.73 sq M.predicted among non-blacks MDRD (S/P/Bld) [Vol rate/Area] 84 mL/min/{1.73_m2} Normal >60 [facility] Comment on above: Result Comment: Non- GFR Calc Performed By: #### L 503.6030, L100.0100, L503.6550, L500.4050, L300.3900 ####[facility] [address] [place], [address] Globulin (S) [Mass/Vol] 4.0 g/dL Normal 2.2-4.2 [facility] Comment on above: Performed By: #### L 503.6030, L100.0100, L503.6550, L500.4050, L300.3900 ####[facility] [address] [place], [address] Glucose [Mass/Vol] 183 mg/dL High 74-106 [facility] Comment on above: Result Comment: Fast ing Glucose result greater than or equal to 126 mg/dLsuggests DIABETES MELLITUS per A.D.A. criteria. Performed By: #### L 503.6030, L100.0100, L503.6550, L500.4050, L300.3900 ####[facility] [address] [place], [address] Potassium [Moles/Vol] 3.8 mmol/L Normal 3.5-5.1 [facility] Comment on above: Performed By: #### L 503.6030, L100.0100, L503.6550, L500.4050, L300.3900 ####[facility] [address] [place], [address] Sodium [Moles/Vol] 132 mmol/L Low 136-145 [facility] Comment on above: Performed By: #### L 503.6030, L100.0100, L503.6550, L500.4050, L300.3900 ####[facility] [address] [place], [address] T PROT 7.1 g/dL Normal 6.4-8.2 [facility] Comment on above: Performed By: #### L 503.6030, L100.0100, L503.6550, L500.4050, L300.3900 ####[facility] [address] [place], [address] Urea nitrogen [Mass/Vol] 10 mg/dL Normal 7-18 [facility] Comment on above: Performed By: #### L 503.6030, L100.0100, L503.6550, L500.4050, L300.3900 ####[facility] [address] [place], [address] EGD Reporton 04-21-2024 EGD Report Normal [facility] Ferritinon 04-21-2024 Ferritin [Mass/Vol] 927 ng/mL High 26-388 [facility] Comment on above: Performed By: #### L 503.6030, L100.0100, L503.6550, L500.4050, L300.3900 ####[facility] [facility] [address] [place], [address] Gram Stainon 04-21-2024 GS Acceptable Specimen? Yes (<25 Epithelial cells per/lpf) Gram Stain 2+ White Blood Cells 1+ Epithelial cells No organisms seen Normal [facility] Comment on above: Performed By: #### M 100.2000, M100.2400 ####[facility] [address] [place], [address] Iron+Iron Binding Capacityon 04-21-2024 Iron [Mass/Vol] 20 ug/dL Low 65-175 [facility] Comment on above: Performed By: #### L 503.6030, L100.0100, L503.6550, L500.4050, L300.3900 ####[facility] [address] [place], [address] IRON SATURATION 7.4 Low 15.0-55.0 [facility] Comment on above: Performed By: #### L 503.6030, L100.0100, L503.6550, L500.4050, L300.3900 ####[facility] [address] [place], [address] TIBC 270 ug/dL Normal 250-450 [facility] Comment on above: Performed By: #### L 503.6030, L100.0100, L503.6550, L500.4050, L300.3900 ####[facility] [address] [place], [address] MR/CON.PCM.GIon 04-21-2024 MR/CON.PCM.GI Normal [facility] MR/POSTOP.ANEon 04-21-2024 MR/POSTOP.ANE Normal [facility] MR/YMMSNMNS7rd 04-21-2024 MR/POSTOPAN2 Normal [facility] Prothrombin Time w/INRon INR Coag (PPP) [Relative time] 1.7 {INR} Normal [facility] Comment on above: Performed By: #### L 300.3900 ####[facility] [address] [place], [address] PT Coag (PPP) [Time] 19.5 s High 11.7-14.9 [facility] Comment on above: Performed By: #### L 300.3900 ####[facility] [address] [place], [address] INR Coag (PPP) [Relative time] 5.9 {INR} Invalid Interpretation Code [facility] Comment on above: Result Comment: CRIT ICAL VALUE CALLED TO [id number]/23/24 0730 Gisella Shelton.RESULTS READ BACK BY SAME. Performed By: #### L 503.6030, L100.0100, L503.6550, L500.4050, L300.3900 ####[facility] [address] [place], [address] PT Coag (PPP) [Time] 52.0 s High 11.7-14.9 [facility] Comment on above: Performed By: #### L 503.6030, L100.0100, L503.6550, L500.4050, L300.3900 ####[facility] [address] [place], [address] RESPIRATORY PANEL MOLECULARo n 04-21-2024 RP PANEL Normal [facility] Comment on above: Performed By: #### M 100.638 ####[facility] [address] [place], [address] Stool Occult Blood iFOBon STOB REPORT READ BACK BY SAME. Occult Blood A Positive A OCCULT BLOOD POSITIVE Normal [facility] Comment on above: Performed By: #### M 100.7900 ####[facility] [address] [place], [address] 12 Lead EKGon 04-20-2024 12 Lead EKG Normal [facility] BNP,B-Type NATRIURETIC PEPTI Cayetano 04-20-2024 Natriuretic peptide B (Bld) [Mass/Vol] 75.4 pg/mL Normal 0-100 [facility] Comment on above: Performed By: #### L 100.0100, L501.4020, L500.2500, L503.6620, L300.3900 ####[facility] [address] [place], [address] Basic Metabolic Profile (BMP )on 04-20-2024 BUN/CRE 8.5 RATIO Low 10-20 [facility] Comment on above: Order Comment: 'TROP ' Serial specimen #1, #2 or #3: 1 Performed By: #### L 100.0100, L501.4020, L500.2500, L503.6620, L300.3900 ####[facility] [address] [place], [address] CA,Total 8.6 mg/dL Normal 8.5-10.1 [facility] Comment on above: Order Comment: 'TROP ' Serial specimen #1, #2 or #3: 1 Performed By: #### L 100.0100, L501.4020, L500.2500, L503.6620, L300.3900 ####[facility] [address] [place], [address] Chloride [Moles/Vol] 97 mmol/L Low 98-107 [facility] Comment on above: Order Comment: 'TROP ' Serial specimen #1, #2 or #3: 1 Performed By: #### L 100.0100, L501.4020, L500.2500, L503.6620, L300.3900 ####[facility] [address] [place], [address] CO2 [Moles/Vol] 28.0 mmol/L Normal 21.0-32.0 [facility] Comment on above: Order Comment: 'TROP ' Serial specimen #1, #2 or #3: 1 Performed By: #### L 100.0100, L501.4020, L500.2500, L503.6620, L300.3900 ####[facility] [address] [place], [address] Creatinine [Mass/Vol] 1.18 mg/dL Normal 0.70-1.30 [facility] Comment on above: Order Comment: 'TROP ' Serial specimen #1, #2 or #3: 1 Result Comment: The validity of the calculated GFR GFRAA in patients over70 years has not been determined. Clinical correlation isessential. Performed By: #### L 100.0100, L501.4020, L500.2500, L503.6620, L300.3900 ####[facility] [address] [place], [address] EST GFR - AA 79 mL/min Normal >60 [facility] Comment on above: Order Comment: 'TROP ' Serial specimen #1, #2 or #3: 1 Result Comment: Afri can Macedonian GFR Calc Performed By: #### L 100.0100, L501.4020, L500.2500, L503.6620, L300.3900 ####[facility] [address] [place], [address] GAP 8 Normal 5-15 [facility] Comment on above: Order Comment: 'TROP ' Serial specimen #1, #2 or #3: 1 Performed By: #### L 100.0100, L501.4020, L500.2500, L503.6620, L300.3900 ####[facility] [address] [place], [address] GFR/1.73 sq M.predicted among non-blacks MDRD (S/P/Bld) [Vol rate/Area] 65 mL/min/{1.73_m2} Normal >60 [facility] Comment on above: Order Comment: 'TROP ' Serial specimen #1, #2 or #3: 1 Result Comment: Non- GFR Calc Performed By: #### L 100.0100, L501.4020, L500.2500, L503.6620, L300.3900 ####[facility] [address] [place], [address] Glucose [Mass/Vol] 162 mg/dL High 74-106 [facility] Comment on above: Order Comment: 'TROP ' Serial specimen #1, #2 or #3: 1 Result Comment: Fast ing Glucose result greater than or equal to 126 mg/dLsuggests DIABETES MELLITUS per A.D.A. criteria. Performed By: #### L 100.0100, L501.4020, L500.2500, L503.6620, L300.3900 ####[facility] [address] [place], [address] Potassium [Moles/Vol] 2.9 mmol/L Low 3.5-5.1 [facility] Comment on above: Order Comment: 'TROP ' Serial specimen #1, #2 or #3: 1 Performed By: #### L 100.0100, L501.4020, L500.2500, L503.6620, L300.3900 ####[facility] [address] [place], [address] Sodium [Moles/Vol] 133 mmol/L Low 136-145 [facility] Comment on above: Order Comment: 'TROP ' Serial specimen #1, #2 or #3: 1 Performed By: #### L 100.0100, L501.4020, L500.2500, L503.6620, L300.3900 ####[facility] [address] [place], [address] Urea nitrogen [Mass/Vol] 10 mg/dL Normal 7-18 [facility] Comment on above: Order Comment: 'TROP ' Serial specimen #1, #2 or #3: 1 Performed By: #### L 100.0100, L501.4020, L500.2500, L503.6620, L300.3900 ####[facility] [address] [place], [address] CBC W/Diff, Automatedon 03-31-2023 Absolute Lymph 0.76 X10 3/uL Low 0.83-4.51 [facility] Comment on above: Performed By: #### L 100.0100, L501.4020, L500.2500, L503.6620, L300.3900 ####[facility] [address] [place], [address] Absolute Neut 12.7 X10 3/uL High 2.0-7.7 [facility] Comment on above: Performed By: #### L 100.0100, L501.4020, L500.2500, L503.6620, L300.3900 ####[facility] [address] [place], [address] Basophils/100 WBC (Bld) 0.2 % Normal 0-1 [facility] Comment on above: Performed By: #### L 100.0100, L501.4020, L500.2500, L503.6620, L300.3900 ####[facility] [address] [place], [address] Eosinophils/100 WBC (Bld) 0.1 % Normal 0-5 [facility] Comment on above: Performed By: #### L 100.0100, L501.4020, L500.2500, L503.6620, L300.3900 ####[facility] [address] [place], [address] Erythrocyte distribution width (RBC) [Ratio] 14.6 % Normal 11.6-14.6 [facility] Comment on above: Performed By: #### L 100.0100, L501.4020, L500.2500, L503.6620, L300.3900 ####[facility] [address] [place], [address] Hematocrit (Bld) [Volume fraction] 33.3 % Low 40-54 [facility] Comment on above: Performed By: #### L 100.0100, L501.4020, L500.2500, L503.6620, L300.3900 ####[facility] [address] [place], [address] Hemoglobin (Bld) [Mass/Vol] 11.3 g/dL Low 13.0-16.5 [facility] Comment on above: Performed By: #### L 100.0100, L501.4020, L500.2500, L503.6620, L300.3900 ####[facility] [address] [place], [address] IG% 0.700 Normal 0.0-0.9 [facility] Comment on above: Result Comment: IG% - Immature Granulocytes (promyelocytes, myelocytes andmetamyelocytes) > 1% indicates that a LEFT SHIFT is Present. Performed By: #### L 100.0100, L501.4020, L500.2500, L503.6620, L300.3900 ####[facility] [address] [place], [address] Lymphocytes/100 WBC (Bld) 5.2 % Low 19-41 [facility] Comment on above: Performed By: #### L 100.0100, L501.4020, L500.2500, L503.6620, L300.3900 ####[facility] [address] [place], [address] MCH (RBC) [Entitic mass] 30.5 pg Normal 27.0-32.0 [facility] Comment on above: Performed By: #### L 100.0100, L501.4020, L500.2500, L503.6620, L300.3900 ####[facility] [address] [place], [address] MCHC (RBC) [Mass/Vol] 33.9 g/dL Normal 32-36 [facility] Comment on above: Performed By: #### L 100.0100, L501.4020, L500.2500, L503.6620, L300.3900 ####[facility] [address] [place], [address] MCV (RBC) [Entitic vol] 90.0 fL Normal 80-94 [facility] Comment on above: Performed By: #### L 100.0100, L501.4020, L500.2500, L503.6620, L300.3900 ####[facility] [address] [place], [address] Monocytes/100 WBC (Bld) 7.6 % Normal 0-10 [facility] Comment on above: Performed By: #### L 100.0100, L501.4020, L500.2500, L503.6620, L300.3900 ####[facility] [address] [place], [address] Neutrophils/100 WBC (Bld) 86.2 % High 47-70 [facility] Comment on above: Performed By: #### L 100.0100, L501.4020, L500.2500, L503.6620, L300.3900 ####[facility] [address] [place], [address] Nucleated RBC (Bld) [#/Vol] 0 10*3/uL Normal 0-5 [facility] Comment on above: Performed By: #### L 100.0100, L501.4020, L500.2500, L503.6620, L300.3900 ####[facility] [address] [place], [address] Platelet mean volume (Bld) [Entitic vol] 10.0 fL Normal 6.2-12.0 [facility] Comment on above: Performed By: #### L 100.0100, L501.4020, L500.2500, L503.6620, L300.3900 ####[facility] [address] [place], [address] Platelets (Bld) [#/Vol] 223 10*3/uL Normal 150-450 [facility] Comment on above: Performed By: #### L 100.0100, L501.4020, L500.2500, L503.6620, L300.3900 ####[facility] [address] [place], [address] RBC (Bld) [#/Vol] 3.70 10*6/uL Low 4.6-6.2 [facility] Comment on above: Performed By: #### L 100.0100, L501.4020, L500.2500, L503.6620, L300.3900 ####[facility] [address] [place], [address] RDW SD 47.9 fl High 35.1-43.9 [facility] Comment on above: Performed By: #### L 100.0100, L501.4020, L500.2500, L503.6620, L300.3900 ####[facility] [address] [place], [address] WBC (Bld) [#/Vol] 14.7 10*3/uL High 4.4-11.0 [facility] Comment on above: Performed By: #### L 100.0100, L501.4020, L500.2500, L503.6620, L300.3900 ####[facility] [address] [place], [address] Chest PA and Lateralon 04-20 Chest PA and Lateral Normal [facility] Emergency Department Summary on 04-20-2024 Emergency Department Summary Normal [facility] H AND P Exam - Hospitaliston 04-20-2024 H&P Exam - Hospitalist Normal [facility] L501.4020on 04-20-2024 TROPONIN-I HS 5 pg/mL Normal 3.0-78.0 [facility] Comment on above: Order Comment: 'TROP ' Serial specimen #1, #2 or #3: 1 Result Comment: Plea se Note: New Test Units and Gender Specific Reference Ranges. For more information see Policy Stat Procedure [place] High Sensitivity Troponin (TNIH) and attachments. Performed By: #### L 100.0100, L501.4020, L500.2500, L503.6620, L300.3900 ####[facility] [address] [place], [address] M100.678on 04-20-2024 M100.678 Pending SARS-CoV-2 (COVID 19) Negative INFLUENZA A Negative INFLUENZA B Negative RSV PCR Negative Normal [facility] Comment on above: Performed By: #### M 100.678 ####[facility] [address] [place], [address] Magnesiumon 04-20-2024 Magnesium [Mass/Vol] 1.7 mg/dL Normal 1.6-2.6 [facility] Comment on above: Order Comment: Comme nts: may add to ED labs Performed By: #### L 509.7000, L501.5200 ####[facility] [address] [place], [address] Procalcitoninon 04-20-2024 Procalcitonin 0.13 ng/mL High 0.00-0.09 [facility] Comment on above: Result Comment: A pr ocalcitonin (PCT) level above 2.0 ng/mL on the first day of ICU admission is associated with a high risk for progression to severe sepsis and/or septic shock. A PCT level below 0.5 ng/mL on the first day of ICU admission is associated with a low risk for progression to severe and/or septic shock. Note: Concentrations <0.5 ng/mL do not exclude an infection on account of localized infections (without systemic signs) which can be associated with such low concentrations, or a systemic infection in its initial stages (<6 hours). Furthermore, increased procalcitonin can occur without infection. PCT concentrations between 0.5 and 2.0 ng/mL should be interpreted taking into account the patient's history. It is recommended to retest PCT within 6-24 hours if any concentrations <2 ng/mL are obtained. Performed By: #### L 509.7000, L501.5200 ####[facility] [address] [place], [address] Prothrombin Time w/INRon INR Coag (PPP) [Relative time] 5.6 {INR} Invalid Interpretation Code [facility] Comment on above: Result Comment: CRIT ICAL VALUE CALLED TO [id number]/22/24 Gold8 Johanny Booker.RESULTS READ BACK BY SAME. Performed By: #### L 100.0100, L501.4020, L500.2500, L503.6620, L300.3900 ####[facility] [address] [place], [address] PT Coag (PPP) [Time] 50.3 s High 11.7-14.9 [facility] Comment on above: Performed By: #### L 100.0100, L501.4020, L500.2500, L503.6620, L300.3900 ####[facility] [address] [place], [address] Basic Metabolic Profile (BMP )on 04-15-2024 BUN/CRE 8.2 RATIO Low 10-20 [facility] Comment on above: Performed By: #### L 300.3900, L100.0100, L500.2500 ####[facility] [address] [place], [address] CA,Total 9.3 mg/dL Normal 8.5-10.1 [facility] Comment on above: Performed By: #### L 300.3900, L100.0100, L500.2500 ####[facility] [address] [place], [address] Chloride [Moles/Vol] 99 mmol/L Normal 98-107 [facility] Comment on above: Performed By: #### L 300.3900, L100.0100, L500.2500 ####[facility] [address] [place], [address] CO2 [Moles/Vol] 28.0 mmol/L Normal 21.0-32.0 [facility] Comment on above: Performed By: #### L 300.3900, L100.0100, L500.2500 ####[facility] [address] [place], [address] Creatinine [Mass/Vol] 1.22 mg/dL Normal 0.70-1.30 [facility] Comment on above: Result Comment: The validity of the calculated GFR GFRAA in patients over70 years has not been determined. Clinical correlation isessential. Performed By: #### L 300.3900, L100.0100, L500.2500 ####[facility] [address] [place], [address] ECRCL 57.95 ml/min Normal [facility] Comment on above: Performed By: #### L 300.3900, L100.0100, L500.2500 ####[facility] [address] [place], [address] EST GFR - AA 76 mL/min Normal >60 [facility] Comment on above: Result Comment: Afri can Macedonian GFR Calc Performed By: #### L 300.3900, L100.0100, L500.2500 ####[facility] [address] [place], [address] GAP 7 Normal 5-15 [facility] Comment on above: Performed By: #### L 300.3900, L100.0100, L500.2500 ####[facility] [address] [place], [address] GFR/1.73 sq M.predicted among non-blacks MDRD (S/P/Bld) [Vol rate/Area] 63 mL/min/{1.73_m2} Normal >60 [facility] Comment on above: Result Comment: Non- GFR Calc Performed By: #### L 300.3900, L100.0100, L500.2500 ####[facility] [address] [place], [address] Glucose [Mass/Vol] 107 mg/dL High 74-106 [facility] Comment on above: Result Comment: Fast ing Glucose result from 100 to 125 mg/dLsuggests IMPAIRED HOMEOSTASIS per A.D.A. criteria. Performed By: #### L 300.3900, L100.0100, L500.2500 ####[facility] [address] [place], [address] Potassium [Moles/Vol] 4.1 mmol/L Normal 3.5-5.1 [facility] Comment on above: Performed By: #### L 300.3900, L100.0100, L500.2500 ####[facility] [address] [place], [address] Sodium [Moles/Vol] 134 mmol/L Low 136-145 [facility] Comment on above: Performed By: #### L 300.3900, L100.0100, L500.2500 ####[facility] [address] [place], [address] Urea nitrogen [Mass/Vol] 10 mg/dL Normal 7-18 [facility] Comment on above: Performed By: #### L 300.3900, L100.0100, L500.2500 ####[facility] [address] [place], [address] CBC W/Diff, Automatedon -08 05-2023 Absolute Lymph 1.46 X10 3/uL Normal 0.83-4.51 [facility] Comment on above: Performed By: #### L 300.3900, L100.0100, L500.2500 ####[facility] [address] [place], [address] Absolute Neut 11.1 X10 3/uL High 2.0-7.7 [facility] Comment on above: Performed By: #### L 300.3900, L100.0100, L500.2500 ####[facility] [address] [place], [address] Basophils/100 WBC (Bld) 0.6 % Normal 0-1 [facility] Comment on above: Performed By: #### L 300.3900, L100.0100, L500.2500 ####[facility] [address] [place], [address] Eosinophils/100 WBC (Bld) 1.1 % Normal 0-5 [facility] Comment on above: Performed By: #### L 300.3900, L100.0100, L500.2500 ####[facility] [address] [place], [address] Erythrocyte distribution width (RBC) [Ratio] 14.5 % Normal 11.6-14.6 [facility] Comment on above: Performed By: #### L 300.3900, L100.0100, L500.2500 ####[facility] [address] [place], [address] Hematocrit (Bld) [Volume fraction] 45.7 % Normal 40-54 [facility] Comment on above: Performed By: #### L 300.3900, L100.0100, L500.2500 ####[facility] [address] [place], [address] Hemoglobin (Bld) [Mass/Vol] 15.1 g/dL Normal 13.0-16.5 [facility] Comment on above: Performed By: #### L 300.3900, L100.0100, L500.2500 ####[facility] [address] [place], [address] IG% 2.600 High 0.0-0.9 [facility] [facility] Comment on above: Result Comment: IG% - Immature Granulocytes (promyelocytes, myelocytes andmetamyelocytes) > 1% indicates that a LEFT SHIFT is Present. Performed By: #### L 300.3900, L100.0100, L500.2500 ####[facility] [address] [place], [address] Lymphocytes/100 WBC (Bld) 10.4 % Low 19-41 [facility] Comment on above: Performed By: #### L 300.3900, L100.0100, L500.2500 ####[facility] [address] [place], [address] MCH (RBC) [Entitic mass] 30.0 pg Normal 27.0-32.0 [facility] Comment on above: Performed By: #### L 300.3900, L100.0100, L500.2500 ####[facility] [address] [place], [address] MCHC (RBC) [Mass/Vol] 33.0 g/dL Normal 32-36 [facility] Comment on above: Performed By: #### L 300.3900, L100.0100, L500.2500 ####[facility] [address] [place], [address] MCV (RBC) [Entitic vol] 90.9 fL Normal 80-94 [facility] Comment on above: Performed By: #### L 300.3900, L100.0100, L500.2500 ####[facility] [address] [place], [address] Monocytes/100 WBC (Bld) 6.3 % Normal 0-10 [facility] Comment on above: Performed By: #### L 300.3900, L100.0100, L500.2500 ####[facility] [address] [place], [address] Neutrophils/100 WBC (Bld) 79.0 % High 47-70 [facility] Comment on above: Performed By: #### L 300.3900, L100.0100, L500.2500 ####[facility] [address] [place], [address] Nucleated RBC (Bld) [#/Vol] 0 10*3/uL Normal 0-5 [facility] Comment on above: Performed By: #### L 300.3900, L100.0100, L500.2500 ####[facility] [address] [place], [address] Platelet mean volume (Bld) [Entitic vol] 9.3 fL Normal 6.2-12.0 [facility] Comment on above: Performed By: #### L 300.3900, L100.0100, L500.2500 ####[facility] [address] [place], [address] Platelets (Bld) [#/Vol] 400 10*3/uL Normal 150-450 [facility] Comment on above: Performed By: #### L 300.3900, L100.0100, L500.2500 ####[facility] [address] [place], [address] RBC (Bld) [#/Vol] 5.03 10*6/uL Normal 4.6-6.2 [facility] Comment on above: Performed By: #### L 300.3900, L100.0100, L500.2500 ####[facility] [address] [place], [address] RDW SD 47.8 fl High 35.1-43.9 [facility] Comment on above: Performed By: #### L 300.3900, L100.0100, L500.2500 ####[facility] [address] [place], [address] WBC (Bld) [#/Vol] 14.1 10*3/uL High 4.4-11.0 [facility] Comment on above: Performed By: #### L 300.3900, L100.0100, L500.2500 ####[facility] [address] [place], [address] Emergency Department Summary on 04-15-2024 Emergency Department Summary Normal [facility] Prothrombin Time w/INRon INR Coag (PPP) [Relative time] 2.8 {INR} Normal [facility] Comment on above: Performed By: #### L 300.3900, L100.0100, L500.2500 ####[facility] [address] [place], [address] PT Coag (PPP) [Time] 28.9 s High 11.7-14.9 [facility] Comment on above: Performed By: #### L 300.3900, L100.0100, L500.2500 ####[facility] [address] [place], [address] Culture, Blood (WB)on 2023 CUB Blood cultures x2 fr om two different sites No growth in 5 days. Normal [facility] Comment on above: Performed By: #### M 200.1000, L503.6005, L300.4310, L300.3900 ####[facility] [address] [place], [address] Prothrombin Time w/INRon INR Normal [facility] Comment on above: Result Comment: Canc elled via OM: Order cancelled - Patient discharged Performed By: #### L 300.3900 ####[facility] [address] [place], [address] PROTIME Normal 11.7-14.9 [facility] Comment on above: Result Comment: Canc elled via OM: Order cancelled - Patient discharged Performed By: #### L 300.3900 ####[facility] [address] [place], [address] Prothrombin Time w/INRon INR Normal [facility] Comment on above: Result Comment: Canc elled via OM: Order cancelled - Patient discharged Performed By: #### L 300.3900 ####[facility] [address] [place], [address] PROTIME Normal 11.7-14.9 [facility] Comment on above: Result Comment: Canc elled via OM: Order cancelled - Patient discharged Performed By: #### L 300.3900 ####[facility] [address] [place], [address] Respiratory Cultureon 2023 RESPC Not obtained in 1 hr , induce w/nebulized 0.9% NaCL No Haemophilus, Streptococcus pneumoniae, beta-hemolytic Streptococcus or Staphylococcus aureus isolated. Presumptive C albicans Amount Growth 1+ Normal [facility] Comment on above: Performed By: #### M 100.2000, M100.2400 ####[facility] [address] [place], [address] Basic Metabolic Profile (BMP )on 04-09-2024 BUN/CRE 12.9 RATIO Normal 10-20 [facility] Comment on above: Performed By: #### L 500.2500, L100.0100 ####[facility] [address] [place], [address] CA,Total 8.7 mg/dL Normal 8.5-10.1 [facility] Comment on above: Performed By: #### L 500.2500, L100.0100 ####[facility] [address] [place], [address] Chloride [Moles/Vol] 102 mmol/L Normal 98-107 [facility] Comment on above: Performed By: #### L 500.2500, L100.0100 ####[facility] [address] [place], [address] CO2 [Moles/Vol] 23.0 mmol/L Normal 21.0-32.0 [facility] Comment on above: Performed By: #### L 500.2500, L100.0100 ####[facility] [address] [place], [address] Creatinine [Mass/Vol] 0.85 mg/dL Normal 0.70-1.30 [facility] Comment on above: Result Comment: The validity of the calculated GFR GFRAA in patients over70 years has not been determined. Clinical correlation isessential. Performed By: #### L 500.2500, L100.0100 ####[facility] [address] [place], [address] ECRCL 83.18 ml/min Normal [facility] Comment on above: Performed By: #### L 500.2500, L100.0100 ####[facility] [address] [place], [address] EST GFR - AA 115 mL/min Normal >60 [facility] Comment on above: Result Comment: Afri can Macedonian GFR Calc Performed By: #### L 500.2500, L100.0100 ####[facility] [address] [place], [address] GAP 8 Normal 5-15 [facility] Comment on above: Performed By: #### L 500.2500, L100.0100 ####[facility] [address] [place], [address] GFR/1.73 sq M.predicted among non-blacks MDRD (S/P/Bld) [Vol rate/Area] 95 mL/min/{1.73_m2} Normal >60 [facility] Comment on above: Result Comment: Non- GFR Calc Performed By: #### L 500.2500, L100.0100 ####[facility] [address] [place], [address] Glucose [Mass/Vol] 92 mg/dL Normal 74-106 [facility] Comment on above: Performed By: #### L 500.2500, L100.0100 ####[facility] [address] [place], [address] Potassium [Moles/Vol] 3.7 mmol/L Normal 3.5-5.1 [facility] Comment on above: Performed By: #### L 500.2500, L100.0100 ####[facility] [address] [place], [address] Sodium [Moles/Vol] 133 mmol/L Low 136-145 [facility] Comment on above: Performed By: #### L 500.2500, L100.0100 ####[facility] [address] [place], [address] Urea nitrogen [Mass/Vol] 11 mg/dL Normal 7-18 [facility] Comment on above: Performed By: #### L 500.2500, L100.0100 ####[facility] [address] [place], [address] CBC W/Diff, Automatedon 03-30-2023 Absolute Lymph 2.18 X10 3/uL Normal 0.83-4.51 [facility] Comment on above: Performed By: #### L 500.2500, L100.0100 ####[facility] [address] [place], [address] Absolute Neut 9.5 X10 3/uL High 2.0-7.7 [facility] Comment on above: Performed By: #### L 500.2500, L100.0100 ####[facility] [address] [place], [address] Basophils/100 WBC (Bld) 0.4 % Normal 0-1 [facility] Comment on above: Performed By: #### L 500.2500, L100.0100 ####[facility] [address] [place], [address] Eosinophils/100 WBC (Bld) 0.9 % Normal 0-5 [facility] Comment on above: Performed By: #### L 500.2500, L100.0100 ####[facility] [address] [place], [address] Erythrocyte distribution width (RBC) [Ratio] 15.1 % High 11.6-14.6 [facility] Comment on above: Performed By: #### L 500.2500, L100.0100 ####[facility] [address] [place], [address] Hematocrit (Bld) [Volume fraction] 40.0 % Normal 40-54 [facility] Comment on above: Performed By: #### L 500.2500, L100.0100 ####[facility] [address] [place], [address] Hemoglobin (Bld) [Mass/Vol] 13.3 g/dL Normal 13.0-16.5 [facility] Comment on above: Performed By: #### L 500.2500, L100.0100 ####[facility] [address] [place], [address] IG% 4.600 High 0.0-0.9 [facility] Comment on above: Result Comment: IG% - Immature Granulocytes (promyelocytes, myelocytes andmetamyelocytes) > 1% indicates that a LEFT SHIFT is Present. Performed By: #### L 500.2500, L100.0100 ####[facility] [address] [place], [address] Lymphocytes/100 WBC (Bld) 16.1 % Low 19-41 [facility] Comment on above: Performed By: #### L 500.2500, L100.0100 ####[facility] [address] [place], [address] MCH (RBC) [Entitic mass] 30.3 pg Normal 27.0-32.0 [facility] Comment on above: Performed By: #### L 500.2500, L100.0100 ####[facility] [address] [place], [address] MCHC (RBC) [Mass/Vol] 33.3 g/dL Normal 32-36 [facility] Comment on above: Performed By: #### L 500.2500, L100.0100 ####[facility] [address] [place], [address] MCV (RBC) [Entitic vol] 91.1 fL Normal 80-94 [facility] Comment on above: Performed By: #### L 500.2500, L100.0100 ####[facility] [address] [place], [address] Monocytes/100 WBC (Bld) 8.2 % Normal 0-10 [facility] Comment on above: Performed By: #### L 500.2500, L100.0100 ####[facility] [address] [place], [address] Neutrophils/100 WBC (Bld) 69.8 % Normal 47-70 [facility] Comment on above: Performed By: #### L 500.2500, L100.0100 ####[facility] [address] [place], [address] Nucleated RBC (Bld) [#/Vol] 0 10*3/uL Normal 0-5 [facility] Comment on above: Performed By: #### L 500.2500, L100.0100 ####[facility] [address] [place], [address] Platelet mean volume (Bld) [Entitic vol] 9.2 fL Normal 6.2-12.0 [facility] Comment on above: Performed By: #### L 500.2500, L100.0100 ####[facility] [address] [place], [address] Platelets (Bld) [#/Vol] 409 10*3/uL Normal 150-450 [facility] Comment on above: Performed By: #### L 500.2500, L100.0100 ####[facility] [address] [place], [address] RBC (Bld) [#/Vol] 4.39 10*6/uL Low 4.6-6.2 [facility] Comment on above: Performed By: #### L 500.2500, L100.0100 ####[facility] [address] [place], [address] RDW SD 49.9 fl High 35.1-43.9 [facility] Comment on above: Performed By: #### L 500.2500, L100.0100 ####[facility] [address] [place], [address] WBC (Bld) [#/Vol] 13.5 10*3/uL High 4.4-11.0 [facility] Comment on above: Performed By: #### L 500.2500, L100.0100 ####[facility] [address] [place], [address] Prothrombin Time w/INRon INR Coag (PPP) [Relative time] 5.3 {INR} Invalid Interpretation Code [facility] Comment on above: Result Comment: CRIT ICAL VALUE CALLED TO CARIN GODDARD (MS3)04/09/24 0728 [place].RESULTS READ BACK BY SAME. Performed By: #### L 300.3900 ####[facility] [address] [place], [address] PT Coag (PPP) [Time] 48.2 s High 11.7-14.9 [facility] Comment on above: Performed By: #### L 300.3900 ####[facility] [address] [place], [address] Basic Metabolic Profile (BMP )on 04-08-2024 BUN/CRE 11.0 RATIO Normal 10-20 [facility] Comment on above: Performed By: #### L 100.0100, L500.2500 ####[facility] [address] [place], [address] CA,Total 9.1 mg/dL Normal 8.5-10.1 [facility] Comment on above: Performed By: #### L 100.0100, L500.2500 ####[facility] [address] [place], [address] Chloride [Moles/Vol] 102 mmol/L Normal 98-107 [facility] Comment on above: Performed By: #### L 100.0100, L500.2500 ####[facility] [address] [place], [address] CO2 [Moles/Vol] 28.0 mmol/L Normal 21.0-32.0 [facility] Comment on above: Performed By: #### L 100.0100, L500.2500 ####[facility] [address] [place], [address] Creatinine [Mass/Vol] 1.00 mg/dL Normal 0.70-1.30 [facility] Comment on above: Result Comment: The validity of the calculated GFR GFRAA in patients over70 years has not been determined. Clinical correlation isessential. Performed By: #### L 100.0100, L500.2500 ####[facility] [address] [place], [address] ECRCL 70.70 ml/min Normal [facility] Comment on above: Performed By: #### L 100.0100, L500.2500 ####[facility] [address] [place], [address] EST GFR - AA 96 mL/min Normal >60 [facility] Comment on above: Result Comment: Afri can Macedonian GFR Calc Performed By: #### L 100.0100, L500.2500 ####[facility] [address] [place], [address] GAP 6 Normal 5-15 [facility] Comment on above: Performed By: #### L 100.0100, L500.2500 ####[facility] [address] [place], [address] GFR/1.73 sq M.predicted among non-blacks MDRD (S/P/Bld) [Vol rate/Area] 79 mL/min/{1.73_m2} Normal >60 [facility] Comment on above: Result Comment: Non- GFR Calc Performed By: #### L 100.0100, L500.2500 ####[facility] [address] [place], [address] Glucose [Mass/Vol] 103 mg/dL Normal 74-106 [facility] Comment on above: Result Comment: Fast ing Glucose result from 100 to 125 mg/dLsuggests IMPAIRED HOMEOSTASIS per A.D.A. criteria. Performed By: #### L 100.0100, L500.2500 ####[facility] [address] [place], [address] Potassium [Moles/Vol] 3.2 mmol/L Low 3.5-5.1 [facility] Comment on above: Performed By: #### L 100.0100, L500.2500 ####[facility] [address] [place], [address] Sodium [Moles/Vol] 136 mmol/L Normal 136-145 [facility] Comment on above: Performed By: #### L 100.0100, L500.2500 ####[facility] [address] [place], [address] Urea nitrogen [Mass/Vol] 11 mg/dL Normal 7-18 [facility] Comment on above: Performed By: #### L 100.0100, L500.2500 ####[facility] [address] [place], [address] CBC W/Diff, Automatedon - 0-2023 Absolute Lymph 2.48 X10 3/uL Normal 0.83-4.51 [facility] Comment on above: Performed By: #### L 100.0100, L500.2500 ####[facility] [address] [place], [address] Absolute Neut 7.4 X10 3/uL Normal 2.0-7.7 [facility] Comment on above: Performed By: #### L 100.0100, L500.2500 ####[facility] [address] [place], [address] Basophils/100 WBC (Bld) 0.8 % Normal 0-1 [facility] Comment on above: Performed By: #### L 100.0100, L500.2500 ####[facility] [address] [place], [address] Eosinophils/100 WBC (Bld) 0.9 % Normal 0-5 [facility] Comment on above: Performed By: #### L 100.0100, L500.2500 ####[facility] [address] [place], [address] Erythrocyte distribution width (RBC) [Ratio] 15.3 % High 11.6-14.6 [facility] Comment on above: Performed By: #### L 100.0100, L500.2500 ####[facility] [address] [place], [address] Hematocrit (Bld) [Volume fraction] 41.6 % Normal 40-54 [facility] Comment on above: Performed By: #### L 100.0100, L500.2500 ####[facility] [address] [place], [address] Hemoglobin (Bld) [Mass/Vol] 13.5 g/dL Normal 13.0-16.5 [facility] Comment on above: Performed By: #### L 100.0100, L500.2500 ####[facility] [address] [place], [address] IG% 4.000 High 0.0-0.9 [facility] Comment on above: Result Comment: IG% - Immature Granulocytes (promyelocytes, myelocytes andmetamyelocytes) > 1% indicates that a LEFT SHIFT is Present. Performed By: #### L 100.0100, L500.2500 ####[facility] [address] [place], [address] Lymphocytes/100 WBC (Bld) 21.7 % Normal 19-41 [facility] Comment on above: Performed By: #### L 100.0100, L500.2500 ####[facility] [address] [place], [address] MCH (RBC) [Entitic mass] 29.9 pg Normal 27.0-32.0 [facility] Comment on above: Performed By: #### L 100.0100, L500.2500 ####[facility] [address] [place], [address] MCHC (RBC) [Mass/Vol] 32.5 g/dL Normal 32-36 [facility] Comment on above: Performed By: #### L 100.0100, L500.2500 ####[facility] [address] [place], [address] MCV (RBC) [Entitic vol] 92.0 fL Normal 80-94 [facility] Comment on above: Performed By: #### L 100.0100, L500.2500 ####[facility] [address] [place], [address] Monocytes/100 WBC (Bld) 8.3 % Normal 0-10 [facility] Comment on above: Performed By: #### L 100.0100, L500.2500 ####[facility] [address] [place], [address] Neutrophils/100 WBC (Bld) 64.3 % Normal 47-70 [facility] Comment on above: Performed By: #### L 100.0100, L500.2500 ####[facility] [address] [place], [address] Nucleated RBC (Bld) [#/Vol] 0 10*3/uL Normal 0-5 [facility] Comment on above: Performed By: #### L 100.0100, L500.2500 ####[facility] [address] [place], [address] Platelet mean volume (Bld) [Entitic vol] 9.0 fL Normal 6.2-12.0 [facility] [facility] Comment on above: Performed By: #### L 100.0100, L500.2500 ####[facility] [address] [place], [address] Platelets (Bld) [#/Vol] 406 10*3/uL Normal 150-450 [facility] Comment on above: Performed By: #### L 100.0100, L500.2500 ####[facility] [address] [place], [address] RBC (Bld) [#/Vol] 4.52 10*6/uL Low 4.6-6.2 [facility] Comment on above: Performed By: #### L 100.0100, L500.2500 ####[facility] [address] [place], [address] RDW SD 52.0 fl High 35.1-43.9 [facility] Comment on above: Performed By: #### L 100.0100, L500.2500 ####[facility] [address] [place], [address] WBC (Bld) [#/Vol] 11.5 10*3/uL High 4.4-11.0 [facility] Comment on above: Performed By: #### L 100.0100, L500.2500 ####[facility] [address] [place], [address] Gram Stainon 04-08-2024 GS Not obtained in 1 hr , induce w/nebulized 0.9% NaCL Acceptable Specimen? Yes (<25 Epithelial cells per/lpf) Gram Stain Rare Epithelial cells Rare White Blood Cells 1+ Gram positive cocci in chains Normal [facility] Comment on above: Performed By: #### M 100.2000, M100.2400 ####[facility] [address] [place], [address] Prothrombin Time w/INRon INR Coag (PPP) [Relative time] 6.0 {INR} Invalid Interpretation Code [facility] Comment on above: Result Comment: CRIT ICAL VALUE CALLED TO AUSTEN Carcamo04/08/24922 Rashida Nunez.RESULTS READ BACK BY SAME. Performed By: #### L 300.3900 ####[facility] [address] [place], [address] PT Coag (PPP) [Time] 52.6 s High 11.7-14.9 [facility] Comment on above: Performed By: #### L 300.3900 ####[facility] [address] [place], [address] 12 Lead EKGon 04-07-2024 12 Lead EKG Normal [facility] 12 Lead EKG Normal [facility] BNP,B-Type NATRIURETIC PEPTI Cayetano 04-07-2024 Natriuretic peptide B (Bld) [Mass/Vol] 98.6 pg/mL Normal 0-100 [facility] Comment on above: Performed By: #### L 503.6620, L100.0100, L501.4020, L500.2500 ####[facility] [address] [place], [address] Basic Metabolic Profile (BMP )on 04-07-2024 BUN/CRE 13.7 RATIO Normal 10-20 [facility] Comment on above: Order Comment: 'TROP ' Serial specimen #1, #2 or #3: 1 Performed By: #### L 503.6620, L100.0100, L501.4020, L500.2500 ####[facility] [address] [place], [address] CA,Total 9.4 mg/dL Normal 8.5-10.1 [facility] Comment on above: Order Comment: 'TROP ' Serial specimen #1, #2 or #3: 1 Performed By: #### L 503.6620, L100.0100, L501.4020, L500.2500 ####[facility] [address] [place], [address] Chloride [Moles/Vol] 99 mmol/L Normal 98-107 [facility] Comment on above: Order Comment: 'TROP ' Serial specimen #1, #2 or #3: 1 Performed By: #### L 503.6620, L100.0100, L501.4020, L500.2500 ####[facility] [address] [place], [address] CO2 [Moles/Vol] 29.0 mmol/L Normal 21.0-32.0 [facility] Comment on above: Order Comment: 'TROP ' Serial specimen #1, #2 or #3: 1 Performed By: #### L 503.6620, L100.0100, L501.4020, L500.2500 ####[facility] [address] [place], [address] Creatinine [Mass/Vol] 1.02 mg/dL Normal 0.70-1.30 [facility] Comment on above: Order Comment: 'TROP ' Serial specimen #1, #2 or #3: 1 Result Comment: The validity of the calculated GFR GFRAA in patients over70 years has not been determined. Clinical correlation isessential. Performed By: #### L 503.6620, L100.0100, L501.4020, L500.2500 ####[facility] [address] [place], [address] ECRCL 69.31 ml/min Normal [facility] Comment on above: Order Comment: 'TROP ' Serial specimen #1, #2 or #3: 1 Performed By: #### L 503.6620, L100.0100, L501.4020, L500.2500 ####[facility] [address] [place], [address] EST GFR - AA 93 mL/min Normal >60 [facility] Comment on above: Order Comment: 'TROP ' Serial specimen #1, #2 or #3: 1 Result Comment: Afri can Macedonian GFR Calc Performed By: #### L 503.6620, L100.0100, L501.4020, L500.2500 ####[facility] [address] [place], [address] GAP 8 Normal 5-15 [facility] Comment on above: Order Comment: 'TROP ' Serial specimen #1, #2 or #3: 1 Performed By: #### L 503.6620, L100.0100, L501.4020, L500.2500 ####[facility] [address] [place], [address] GFR/1.73 sq M.predicted among non-blacks MDRD (S/P/Bld) [Vol rate/Area] 77 mL/min/{1.73_m2} Normal >60 [facility] Comment on above: Order Comment: 'TROP ' Serial specimen #1, #2 or #3: 1 Result Comment: Non- GFR Calc Performed By: #### L 503.6620, L100.0100, L501.4020, L500.2500 ####[facility] [address] [place], [address] Glucose [Mass/Vol] 142 mg/dL High 74-106 [facility] Comment on above: Order Comment: 'TROP ' Serial specimen #1, #2 or #3: 1 Result Comment: Fast ing Glucose result greater than or equal to 126 mg/dLsuggests DIABETES MELLITUS per A.D.A. criteria. Performed By: #### L 503.6620, L100.0100, L501.4020, L500.2500 ####[facility] [address] [place], [address] Potassium [Moles/Vol] 3.4 mmol/L Low 3.5-5.1 [facility] Comment on above: Order Comment: 'TROP ' Serial specimen #1, #2 or #3: 1 Performed By: #### L 503.6620, L100.0100, L501.4020, L500.2500 ####[facility] [address] [place], [address] Sodium [Moles/Vol] 136 mmol/L Normal 136-145 [facility] Comment on above: Order Comment: 'TROP ' Serial specimen #1, #2 or #3: 1 Performed By: #### L 503.6620, L100.0100, L501.4020, L500.2500 ####[facility] [address] [place], [address] Urea nitrogen [Mass/Vol] 14 mg/dL Normal 7-18 [facility] Comment on above: Order Comment: 'TROP ' Serial specimen #1, #2 or #3: 1 Performed By: #### L 503.6620, L100.0100, L501.4020, L500.2500 ####[facility] [address] [place], [address] CBC W/Diff, Automatedon 09-0 9-4 Absolute Lymph 0.69 X10 3/uL Low 0.83-4.51 [facility] Comment on above: Performed By: #### L 503.6620, L100.0100, L501.4020, L500.2500 ####[facility] [address] [place], [address] Absolute Neut 12.1 X10 3/uL High 2.0-7.7 [facility] Comment on above: Performed By: #### L 503.6620, L100.0100, L501.4020, L500.2500 ####[facility] [address] [place], [address] Basophils/100 WBC (Bld) 0.1 % Normal 0-1 [facility] Comment on above: Performed By: #### L 503.6620, L100.0100, L501.4020, L500.2500 ####[facility] [address] [place], [address] Eosinophils/100 WBC (Bld) 0.0 % Normal 0-5 [facility] Comment on above: Performed By: #### L 503.6620, L100.0100, L501.4020, L500.2500 ####[facility] [address] [place], [address] Erythrocyte distribution width (RBC) [Ratio] 15.5 % High 11.6-14.6 [facility] Comment on above: Performed By: #### L 503.6620, L100.0100, L501.4020, L500.2500 ####[facility] [address] [place], [address] Hematocrit (Bld) [Volume fraction] 39.7 % Low 40-54 [facility] Comment on above: Performed By: #### L 503.6620, L100.0100, L501.4020, L500.2500 ####[facility] [address] [place], [address] Hemoglobin (Bld) [Mass/Vol] 13.0 g/dL Normal 13.0-16.5 [facility] Comment on above: Performed By: #### L 503.6620, L100.0100, L501.4020, L500.2500 ####[facility] [address] [place], [address] IG% 1.400 High 0.0-0.9 [facility] Comment on above: Result Comment: IG% - Immature Granulocytes (promyelocytes, myelocytes andmetamyelocytes) > 1% indicates that a LEFT SHIFT is Present. Performed By: #### L 503.6620, L100.0100, L501.4020, L500.2500 ####[facility] [address] [place], [address] Lymphocytes/100 WBC (Bld) 5.1 % Low 19-41 [facility] Comment on above: Performed By: #### L 503.6620, L100.0100, L501.4020, L500.2500 ####[facility] [address] [place], [address] MCH (RBC) [Entitic mass] 30.4 pg Normal 27.0-32.0 [facility] Comment on above: Performed By: #### L 503.6620, L100.0100, L501.4020, L500.2500 ####[facility] [address] [place], [address] MCHC (RBC) [Mass/Vol] 32.7 g/dL Normal 32-36 [facility] Comment on above: Performed By: #### L 503.6620, L100.0100, L501.4020, L500.2500 ####[facility] [address] [place], [address] MCV (RBC) [Entitic vol] 93.0 fL Normal 80-94 [facility] Comment on above: Performed By: #### L 503.6620, L100.0100, L501.4020, L500.2500 ####[facility] [address] [place], [address] Monocytes/100 WBC (Bld) 4.0 % Normal 0-10 [facility] Comment on above: Performed By: #### L 503.6620, L100.0100, L501.4020, L500.2500 ####[facility] [address] [place], [address] Neutrophils/100 WBC (Bld) 89.4 % High 47-70 [facility] Comment on above: Performed By: #### L 503.6620, L100.0100, L501.4020, L500.2500 ####[facility] [address] [place], [address] Nucleated RBC (Bld) [#/Vol] 0 10*3/uL Normal 0-5 [facility] Comment on above: Performed By: #### L 503.6620, L100.0100, L501.4020, L500.2500 ####[facility] [address] [place], [address] Platelet mean volume (Bld) [Entitic vol] 9.0 fL Normal 6.2-12.0 [facility] Comment on above: Performed By: #### L 503.6620, L100.0100, L501.4020, L500.2500 ####[facility] [address] [place], [address] Platelets (Bld) [#/Vol] 392 10*3/uL Normal 150-450 [facility] Comment on above: Performed By: #### L 503.6620, L100.0100, L501.4020, L500.2500 ####[facility] [address] [place], [address] RBC (Bld) [#/Vol] 4.27 10*6/uL Low 4.6-6.2 [facility] Comment on above: Performed By: #### L 503.6620, L100.0100, L501.4020, L500.2500 ####[facility] [address] [place], [address] RDW SD 53.1 fl High 35.1-43.9 [facility] Comment on above: Performed By: #### L 503.6620, L100.0100, L501.4020, L500.2500 ####[facility] [address] [place], [address] WBC (Bld) [#/Vol] 13.5 10*3/uL High 4.4-11.0 [facility] Comment on above: Performed By: #### L 503.6620, L100.0100, L501.4020, L500.2500 ####[facility] [address] [place], [address] Chest PA and Lateralon 04-07 Chest PA and Lateral Normal [facility] Chest WITH Contraston 2023 Chest WITH Contrast Normal [facility] Emergency Department Summary on 04-07-2024 Emergency Department Summary Normal [facility] H AND P Exam - Hospitaliston 04-07-2024 H&P Exam - Hospitalist Normal [facility] L501.4020on 04-07-2024 TROPONIN-I HS 4 pg/mL Normal 3.0-78.0 [facility] Comment on above: Order Comment: 'TROP ' Serial specimen #1, #2 or #3: 1 Result Comment: Plea se Note: New Test Units and Gender Specific Reference Ranges. For more information see Policy Stat Procedure [place] High Sensitivity Troponin (TNIH) and attachments. Performed By: #### L 503.6620, L100.0100, L501.4020, L500.2500 ####[facility] [address] [place], [address] Lactic Acidon 04-07-2024 Lactate [Moles/Vol] 1.6 mmol/L Normal 0.4-1.9 [facility] Comment on above: Order Comment: Y Performed By: #### M 200.1000, L503.6005, L300.4310, L300.3900 ####[facility] [address] [place], [address] Legionella Antigen Urineon 0 04-07-2024 LEGU Normal [facility] Comment on above: Performed By: #### M 300.4500 ####[facility] [address] [place], [address] Liver Profileon 04-07-2024 Albumin [Mass/Vol] 3.2 g/dL Normal 3.2-5.0 [facility] Comment on above: Performed By: #### L 500.3400 ####[facility] [address] [place], [address] ALK P 67 U/L Normal 45-117 [facility] Comment on above: Performed By: #### L 500.3400 ####[facility] [address] [place], [address] ALT [Catalytic activity/Vol] 21 U/L Normal 16-61 [facility] Comment on above: Performed By: #### L 500.3400 ####[facility] [address] [place], [address] AST [Catalytic activity/Vol] 11 U/L Low 15-37 [facility] Comment on above: Performed By: #### L 500.3400 ####[facility] [address] [place], [address] Bilirubin [Mass/Vol] 0.80 mg/dL Normal 0.20-1.00 [facility] Comment on above: Result Comment: For patients on eltrombopag therapy, use of Dimension [place] TBIL is not recommended. Performed By: #### L 500.3400 ####[facility] [address] [place], [address] Bilirubin.direct [Mass/Vol] 0.23 mg/dL Normal 0.00-0.30 [facility] Comment on above: Performed By: #### L 500.3400 ####[facility] [address] [place], [address] Globulin (S) [Mass/Vol] 4.4 g/dL High 2.2-4.2 [facility] Comment on above: Performed By: #### L 500.3400 ####[facility] [address] [place], [address] T PROT 7.6 g/dL Normal 6.4-8.2 [facility] Comment on above: Performed By: #### L 500.3400 ####[facility] [address] [place], [address] M100.019on 04-07-2024 M100.019 Negative Normal [facility] Comment on above: Performed By: #### M 100.019 ####[facility] [address] [place], [address] Partial Thromboplast Timeon 04-07-2024 aPTT Coag (Bld) [Time] 80.2 s High 24.1-36.2 [facility] Comment on above: Performed By: #### M 200.1000, L503.6005, L300.4310, L300.3900 ####[facility] [address] [place], [address] Prothrombin Time w/INRon INR Coag (PPP) [Relative time] 4.8 {INR} Invalid Interpretation Code [facility] Comment on above: Result Comment: CRIT ICAL VALUE CALLED TO KEENAN GODDARD (ER)04/07/24 1224 [place].RESULTS READ BACK BY SAME. Performed By: #### M 200.1000, L503.6005, L300.4310, L300.3900 ####[facility] [address] [place], [address] PT Coag (PPP) [Time] 44.2 s High 11.7-14.9 [facility] Comment on above: Performed By: #### M 200.1000, L503.6005, L300.4310, L300.3900 ####[facility] [address] [place], [address] RESPIRATORY PANEL MOLECULARo n 04-07-2024 RP PANEL Normal [facility] Comment on above: Performed By: #### M 100.638 ####[facility] [address] [place], [address] Strep pneumoniae Antig(UR,CS F)on 04-07-2024 STPAG Normal [facility] Comment on above: Performed By: #### M 300.6260 ####[facility] [address] [place], [address] Echo Completeon 04-02-2024 Echo Complete Normal [facility] Prothrombin Time w/INRon INR Coag (PPP) [Relative time] 1.8 {INR} Normal [facility] Comment on above: Performed By: #### L 300.3900 ####[facility] [address] [place], [address] PT Coag (PPP) [Time] 20.8 s High 11.7-14.9 [facility] Comment on above: Performed By: #### L 300.3900 ####[facility] [address] [place], [address] Hemoglobin A1con 03-04-2024 HbA1c (Bld) [Mass fraction] 5.3 % Normal 3.8-5.6 [facility] Comment on above: Order Comment: Order Date: 03/04/24Order Info: [id number] - A1C Result Comment: Norm al < 5.7 % Prediabetic 5.7 - 6.4 % Diabetic >or= 6.5 % Please note range changes. Performed By: #### L 501.9985 ####[facility] [address] [place], [address] Prothrombin Time w/INRon INR Coag (PPP) [Relative time] 3.3 {INR} Normal [facility] Comment on above: Performed By: #### L 300.3900 ####[facility] [address] [place], [address] PT Coag (PPP) [Time] 33.1 s High 11.7-14.9 [facility] Comment on above: Performed By: #### L 300.3900 ####[facility] [address] [place], [address] Cardiology Visit Reporton Cardiology Visit Report Normal [facility] Prothrombin Time w/INRon INR Coag (PPP) [Relative time] 1.8 {INR} Normal [facility] Comment on above: Performed By: #### L 300.3900 ####[facility] [address] [place], [address] PT Coag (PPP) [Time] 20.8 s High 11.7-14.9 [facility] Comment on above: Performed By: #### L 300.3900 ####[facility] [address] [place], [address] Prothrombin Time w/INRon INR Coag (PPP) [Relative time] 1.9 {INR} Normal [facility] Comment on above: Performed By: #### L 300.3900 ####[facility] [address] [place], [address] PT Coag (PPP) [Time] 21.6 s High 11.7-14.9 [facility] Comment on above: Performed By: #### L 300.3900 ####[facility] [address] [place], [address] Pulmonary Visit Reporton Pulmonary Visit Report Normal [facility] Prothrombin Time w/INRon INR Coag (PPP) [Relative time] 2.0 {INR} Normal [facility] Comment on above: Performed By: #### L 300.3900 ####[facility] [address] [place], [address] PT Coag (PPP) [Time] 23.0 s High 11.7-14.9 [facility] Comment on above: Performed By: #### L 471.4646 ####[facility] [address] [place], [address] CBC panel Auto (Bld)on 12-05 Erythrocyte distribution width (RBC) [Ratio] 14.9 % 11.5 - 15.0 % [facility] Hematocrit (Bld) [Volume fraction] 45.4 % 39.0 - 51.0 % [facility] Hemoglobin (Bld) [Mass/Vol] 14.7 g/dL 13.0 - 17.0 g/dL [facility] Interpretation and review of laboratory results Normal [facility] MCH (RBC) [Entitic mass] 30.6 pg 26.0 - 34.0 pg [facility] MCHC (RBC) [Mass/Vol] 32.4 g/dL 30.5 - 36.0 g/dL [facility] MCV (RBC) [Entitic vol] 94.6 fL 80.0 - 100.0 fL [facility] Nucleated RBC (Bld) [#/Vol] NINF [facility] Platelet mean volume (Bld) [Entitic vol] 9.6 fL 9.0 - 12.7 fL [facility] Platelets (Bld) [#/Vol] 319 10*3/uL [facility] RBC (Bld) [#/Vol] 4.80 10*6/uL 4.20 - 6.0 0 m/uL [facility] WBC (Bld) [#/Vol] 8.82 10*3/uL [facility] Comprehensive metabolic 2000 panelon 12-06-2023 Albumin [Mass/Vol] 4.6 g/dL 3.9 - 4.9 g/dL [facility] ALP [Catalytic activity/Vol] 75 U/L 38 - 113 U/L [facility] ALT With P-5'-P [Catalytic activity/Vol] 12 U/L 10 - 54 U/L [facility] Anion gap [Moles/Vol] 13 mmol/L 9 - 18 mmol/L [facility] AST With P-5'-P [Catalytic activity/Vol] 18 U/L 14 - 40 U/L [facility] Bilirubin [Mass/Vol] 0.7 mg/dL 0.2 - 1 .3 mg/dL [facility] Calcium [Mass/Vol] 8.3 mg/dL Low 8.5 - 10. 2 mg/dL [facility] Chloride [Moles/Vol] 98 mmol/L 97 - 10 5 mmol/L [facility] CO2 [Moles/Vol] 23 mmol/L 22 - 30 mmol/L [facility] Creatinine [Mass/Vol] 1.00 mg/dL 0.73 - 1.22 mg/dL [facility] GFR/1.73 sq M.predicted among non-blacks MDRD (S/P/Bld) [Vol rate/Area] 82 mL/min/{1.73_m2} - PINF [facility] Comment on above: Estimated Glomerular Filtration Rate (eGFR) is calculated using the 2020 CKD-EPI creatinine equation. This equation utilizes serum creatinine, sex, and age as parameters. The creatinine assay has traceable calibration to isotope dilution-mass spectrometry. Refer to KDIGO guidelines for clinical interpretation. In patients with unstable renal function, e.g. those with acute kidney injury, the eGFR may not accurately reflect actual GFR. Glucose [Mass/Vol] 94 mg/dL 74 - 99 mg/dL [facility] Comment on above: The [place] [employer] (ADA) provides guidance for cutoff values for fasting glucose and random glucose. The ADA defines fasting as no caloric intake for at least 8 hours. Fasting plasma glucose results between 100 to 125 mg/dL indicate increased risk for diabetes (prediabetes). Fasting plasma glucose results greater than or equal to 126 mg/dL meet the criteria for diagnosis of diabetes. In the absence of unequivocal hyperglycemia, results should be confirmed by repeat testing. In a patient with classic symptoms of hyperglycemia or hyperglycemic crisis, random plasma glucose results greater than or equal to 200 mg/dL meet the criteria for diagnosis of diabetes. Reference: Standards of Medical Care in Diabetes 2016, [place] [employer]. Diabetes Care. 2016.39(Suppl 1). Potassium [Moles/Vol] 4.1 mmol/L 3.7 - 5.1 mmol/L [facility] Protein [Mass/Vol] 7.8 g/dL 6.3 - 8.0 g/dL [facility] Sodium [Moles/Vol] 134 mmol/L Low 136 - 144 mmol/L [facility] Urea nitrogen [Mass/Vol] 9 mg/dL 9 - 24 mg/dL [facility] ECG B/O W INTERP (MED OFFICE )on 12-06-2023 Sinus rhythm 72 bpm; moderately severe first-degree AV block (KS 352 ms); normal QRS duration 84 ms; QTc 503 ms, appropriate on dofetilide; criteria for septal infarct not new finding; compared with previous EKGs, first-degree AV block has progressed [facility] No Panel Informationon 12-05 Interpretation and review of laboratory results Abnormal [facility] PT panel Coag (PPP)on 2023 INR Coag (PPP) [Relative time] 2.0 {INR} High 0.9 - 1.3 [facility] Comment on above: Vitamin K Antagonist (VKA) Therapeutic Range: INR 2 to 3 (Target INR of 2.5) Note: For patients treated with VKA drugs, such as warfarin, the [place] [employer] 2012 Guideline recommends a therapeutic INR range of 2 to 3 (target INR of 2.5). This recommendation includes high-risk patients with antiphospholipid syndrome with previous arterial or venous thromboembolism, current-generation mechanical or bioprosthetic aortic heart valve replacement. Note: Patients with mechanical aortic valve replacement and additional risk factors for thromboembolic events (atrial fibrillation, previous thromboembolism, LV dysfunction, hypercoagulable conditions) or an older generation mechanical AVR (i.e., ball in-Cage) or any mechanical MVR should have a INR therapeutic range of 2.5 to 3.5 (target INR of 3). Keysha GH, et al. Chest 2012, 141:[id number] Aguilar LYNN et al. [facility] 2017, 70: 252-289 Interpretation and review of laboratory results Abnormal [facility] PT Coag (PPP) [Time] 19.8 [facility] THYROID STIMULATING HORMONEo n 12-06-2023 TSH Qn 2.690 m[IU]/L [facility] TSH Qnon 12-06-2023 Interpretation and review of laboratory results Normal [facility] Capillary blood internationa l normalized ratio (INR)Ordered By: Pablo Pichardo on 11-20-2023 INR Coag (BldC) [Relative time] 1.2 [facility] Comment on above: Critical Value > 4.0 Whole blood prothrombin time Ordered By: Pablo Pichardo on 11-20-2023 PT Coag (Bld) [Time] 13.4 s 11.7-14.9 [facility] Laboratory - CoagulationOrde red By: Dionna Self on 11-15-2023 INR Coag (Bld) [Relative time] 1.6 {INR} [facility] PT Coag (PPP) [Time] 19.2 s 11.7-14.9 [facility] Capillary blood internationa l normalized ratio (INR)Ordered By: Pablo Pichardo on 10-16-2023 INR Coag (BldC) [Relative time] 1.3 [facility] Comment on above: Critical Value > 4.0 Whole blood prothrombin time Ordered By: Pablo Pichardo on 10-16-2023 PT Coag (Bld) [Time] 14.3 s 11.7-14.9 [facility] Basophil percentageOrdered B y: Rodríguez Portillo on 10-15-2023 Bilirubin [Mass/Vol] 0.90 mg/dL 0.20-1.00 [facility] Comment on above: For patients on eltr ombopag therapy, use of Dimension [place] TBIL is not recommended. Chloride [Moles/Vol] 101 mmol/L 98-107 [facility] Glucose [Mass/Vol] 84 mg/dL 74-106 [facility] Potassium [Moles/Vol] 3.6 mmol/L 3.5-5.1 [facility] Protein [Mass/Vol] 7.3 g/dL 6.4-8.2 [facility] Sodium [Moles/Vol] 133 mmol/L 136-145 [facility] Laboratory - Chemistry and C hemistry - challengeOrdered By: Rodríguez Portillo on 10-15-2023 Albumin/Globulin [Mass ratio] 0.9 {ratio} 0.9-2.4 [facility] ALP [Catalytic activity/Vol] 77 U/L 45-117 [facility] ALT [Catalytic activity/Vol] 19 U/L 16-61 [facility] CO2 [Moles/Vol] 25.0 mmol/L 21.0-32.0 [facility] Globulin (S) [Mass/Vol] 3.8 g/dL 2.2-4.2 [facility] Urea nitrogen/Creatinine [Mass ratio] 6.5 mg/mg 10-20 [facility] Laboratory - CoagulationOrde red By: Rodríguez Portillo on 10-15-2023 INR Coag (Bld) [Relative time] 1.1 {INR} [facility] PT Coag (PPP) [Time] 14.1 s 11.7-14.9 [facility] No Panel InformationOrdered By: Rodríguez Portillo on 10-15-2023 Estimated GFR (MDRD) Amer 105 mL/min >60 [facility] Comment on above: GFR Calc Estimated GFR (MDRD) Non-Af Amer 87 mL/min >60 [facility] Comment on above: Non- GFR Calc Vitamin D 25-Hydroxy 24.1 ng/mL [facility] Comment on above: Vitamin D 25(OH) Sta tus Range Deficiency <20 ng/mL (50nmol/L) Insufficiency 20 - 30 ng/mL (50 - 75 nmol/L) Sufficiency 30 - 100 ng/mL (75 - 250 nmol/L) Toxicity >100 ng/mL (>250 nmol/L) Serum or plasma calcium alfa urement (mass/volume)Ordered By: Rodríguez Portillo on 10-15-2023 Calcium [Mass/Vol] 8.9 mg/dL 8.5-10.1 [facility] Serum or plasma creatinine m easurement (mass/volume)Ordered By: Rodríguez Portillo on 10-15-2023 Creatinine [Mass/Vol] 0.92 mg/dL 0.70-1.30 [facility] Comment on above: The validity of the calculated GFR & GFRAA in patients over 70 years has not been determined. Clinical correlation is essential. Serum or plasma urea nitroge n measurement (mass/volume)Ordered By: Rodríguez Portillo on 10-15-2023 Urea nitrogen [Mass/Vol] 6 mg/dL 02-13 [facility] Thin prep Papanicolaou smear with manual screeningOrdered By: Rodríguez Portillo on 10-15-2023 Thin prep Papanicolaou smear with manual screening 3.5 g/dL 3.2-5.0 [facility] Thin prep Papanicolaou smear with manual screening 17 U/L 15-37 [facility] Thin prep Papanicolaou smear with manual screening 7 5-15 [facility] Laboratory - CoagulationOrde red By: Kunal Chang on 09-18-2023 INR Coag (Bld) [Relative time] 1.9 {INR} [facility] PT Coag (PPP) [Time] 21.5 s 11.7-14.9 [facility] Whole blood prothrombin time Ordered By: Pablo Pichardo on 09-18-2023 PT Coag (Bld) [Time] 20.9 s 11.7-14.9 [facility] Laboratory - CoagulationOrde red By: Franky Galloway on 08-29-2023 PT Coag (PPP) [Time] 29.5 s 11.7-14.9 [facility] Platelet poor plasma interna tional normalized ratio (INR)Ordered By: Franky Galloway on 08-29-2023 INR Coag (PPP) [Relative time] 2.8 {INR} [facility] Capillary blood internationa l normalized ratio (INR)Ordered By: Pablo Pichardo on 08-15-2023 INR Coag (BldC) [Relative time] 1.4 [facility] Comment on above: Critical Value > 4.0 Whole blood prothrombin time Ordered By: Pablo Pichardo on 08-15-2023 PT Coag (Bld) [Time] 15.6 s 11.7-14.9 [facility] INR in Blood by Coagulation assayOrdered By: Malcolm Lee on 08-07-2023 INR Coag (Bld) [Relative time] 3.1 {INR} [facility] Laboratory - CoagulationOrde red By: Malcolm Lee on 08-07-2023 PT Coag (PPP) [Time] 32.2 s 11.7-14.9 [facility] INR in Blood by Coagulation assayOrdered By: Franky Galloway on 07-24-2023 INR Coag (Bld) [Relative time] 2.2 {INR} [facility] Laboratory - CoagulationOrde red By: Franky Galloway on 07-24-2023 PT Coag (PPP) [Time] 25.1 s 11.7-14.9 [facility] Serum or plasma uric acid me asurement (mass/volume)Ordered By: Jahaira Cerna on 07-24-2023 Urate [Mass/Vol] 6.0 mg/dL 3.5-7.2 [facility] Comment on above: The drugs N-Acetylcy steine and Metamizole may falsely depress this assay. Whole blood hemoglobin A1c/t otal hemoglobin ratio (mass fraction)Ordered By: Jahaira Cerna on 07-24-2023 HbA1c (Bld) [Mass fraction] 5.0 % 3.8-5.6 [facility] Comment on above: Normal < 5.7 % Predi abetic 5.7 - 6.4 % Diabetic >or= 6.5 % Please note range changes. Glucose Glucometer (BldC) [M ass/Vol]Ordered By: Pablo Pichardo on 07-10-2023 Glucose [Mass/Vol] 80 mg/dL 74-106 [facility] Comment on above: MANAGEMENT OF PATIEN T CARE PER NURSING PROTOCOL INR in Blood by Coagulation assayOrdered By: Franky Galloway on 06-29-2023 INR Coag (Bld) [Relative time] 2.7 {INR} [facility] Laboratory - CoagulationOrde red By: Franky Galloway on 06-29-2023 PT Coag (PPP) [Time] 29.2 s 11.7-14.9 [facility] INR in Blood by Coagulation assayOrdered By: Franky Galloway on 05-29-2023 INR Coag (Bld) [Relative time] 2.4 {INR} [facility] Laboratory - CoagulationOrde red By: Franky Galloway on 05-29-2023 PT Coag (PPP) [Time] 26.0 s 11.7-14.9 [facility] Serum or plasma uric acid me asurement (mass/volume)Ordered By: Jahaira Cerna on 05-02-2023 Urate [Mass/Vol] 8.7 mg/dL 3.5-7.2 [facility] Comment on above: The drugs N-Acetylcy steine and Metamizole may falsely depress this assay. INR in Blood by Coagulation assayOrdered By: Franky Galloway on 04-17-2023 INR Coag (Bld) [Relative time] 1.9 {INR} [facility] Laboratory - CoagulationOrde red By: Franky Galloway on 04-17-2023 PT Coag (PPP) [Time] 22.2 s 11.7-14.9 [facility] INR in Blood by Coagulation assayOrdered By: Franky Galloway on 03-21-2023 INR Coag (Bld) [Relative time] 2.1 {INR} [facility] Laboratory - CoagulationOrde red By: Franky Galloway on 03-21-2023 PT Coag (PPP) [Time] 23.6 s 11.7-14.9 [facility] INR in Blood by Coagulation assayOrdered By: Franky Galloway on 02-20-2023 INR Coag (Bld) [Relative time] 2.0 {INR} [facility] Laboratory - CoagulationOrde red By: Franky Galloway on 02-20-2023 PT Coag (PPP) [Time] 22.5 s 11.7-14.9 [facility] INR in Blood by Coagulation assayOrdered By: Franky Galloway on 01-24-2023 INR Coag (Bld) [Relative time] 2.2 {INR} [facility] Laboratory - CoagulationOrde red By: Farnky Galloway on 01-24-2023 PT Coag (PPP) [Time] 24.5 s 11.7-14.9 [facility] Absolute lymphocyte countOrd ered By: Dr. Daniel on 01-15-2023 Lymphocytes Auto (Unsp spec) [#/Vol] 1.87 10*3/uL 0.83-4.51 [facility] Basophil percentageOrdered B y: Dr. Daniel on 01-15-2023 Basophils/100 WBC (Bld) 1.2 % 0-1 [facility] Bilirubin [Mass/Vol] 0.40 mg/dL 0.20-1.00 [facility] Comment on above: For patients on eltr ombopag therapy, use of Dimension [place] TBIL is not recommended. Chloride [Moles/Vol] 103 mmol/L 98-107 [facility] Eosinophils/100 WBC (Bld) 6.4 % 0-5 [facility] Glucose [Mass/Vol] 87 mg/dL 74-106 [facility] Neutrophils (Bld) [#/Vol] 4.4 10*3/uL 2.0-7.7 [facility] Neutrophils/100 WBC (Bld) 56.7 % 47-70 [facility] Potassium [Moles/Vol] 3.8 mmol/L 3.5-5.1 [facility] Protein [Mass/Vol] 7.7 g/dL 6.4-8.2 [facility] Sodium [Moles/Vol] 139 mmol/L 136-145 [facility] WBC (Bld) [#/Vol] 7.8 10*3/uL 4.4-11.0 [facility] Blood erythrocytes count (nu mber/volume)Ordered By: Dr. Daniel on 01-15-2023 RBC (Bld) [#/Vol] 4.72 10*6/uL 4.6-6.2 [facility] Blood hemoglobin measurement (mass/volume)Ordered By: Dr. Daniel on 01-15-2023 Hemoglobin (Bld) [Mass/Vol] 14.1 g/dL 13.0-16.5 [facility] Blood lymphocytes/100 leukoc ytesOrdered By: Dr. Daniel on 01-15-2023 Lymphocytes/100 WBC (Bld) 24.1 % 19-41 [facility] Blood monocytes/100 leukocyt esOrdered By: Dr. Daniel on 01-15-2023 Monocytes/100 WBC (Bld) 11.1 % 0-10 [facility] Blood platelet mean volumeOr dered By: Dr. Daniel on 01-15-2023 Platelet mean volume (Bld) [Entitic vol] 9.8 fL 6.2-12.0 [facility] Determination of erythrocyte mean corpuscular volume (MCV)Ordered By: Dr. Daniel on 01-15-2023 MCV (RBC) [Entitic vol] 91.3 fL 80-94 [facility] Hematocrit Auto (Bld) [Volum e fraction]Ordered By: Dr. Daniel on 01-15-2023 Hematocrit (Bld) [Volume fraction] 43.1 % 40-54 [facility] INR in Blood by Coagulation assayOrdered By: Dr. Daneil on 01-15-2023 INR Coag (Bld) [Relative time] 1.9 {INR} [facility] INR in Blood by Coagulation assayOrdered By: Franky Galloway on 01-15-2023 INR Coag (Bld) [Relative time] {INR} [facility] Comment on above: CRITICAL VALUE VERIF IED. CALLED TO DR COOPER01/15/23 Se Gonzalez.RESULTS READ BACK BY SAME . Laboratory - Chemistry and C hemistry - challengeOrdered By: Dr. Daniel on 01-15-2023 ALP [Catalytic activity/Vol] 59 U/L 45-117 [facility] ALT [Catalytic activity/Vol] 25 U/L 16-61 [facility] CO2 [Moles/Vol] 31.0 mmol/L 21.0-32.0 [facility] Globulin (S) [Mass/Vol] 4.1 g/dL 2.2-4.2 [facility] Urea nitrogen/Creatinine [Mass ratio] 10.5 mg/mg 10-20 [facility] Laboratory - CoagulationOrde red By: Dr. Daniel on 01-15-2023 PT Coag (PPP) [Time] 22.2 s 11.7-14.9 [facility] Laboratory - CoagulationOrde red By: Franky Galloway on 01-15-2023 PT Coag (PPP) [Time] s 11.7-14.9 [facility] Comment on above: CRITICAL VALUE VERIF IED. CALLED TO DR WEEKS Se Gonzalez.RESULTS READ BACK BY SILAS . Laboratory - Hematology and Cell countsOrdered By: Dr. Daniel on 01-15-2023 Erythrocyte distribution width (RBC) [Entitic vol] 46.4 fL 35.1-43.9 [facility] Erythrocyte distribution width (RBC) [Ratio] 13.9 % 11.6-14.6 [facility] Immature granulocytes/100 WBC (Bld) 0.500 % 0.0-0.9 [facility] Comment on above: IG% - Immature Granu locytes (promyelocytes, myelocytes and metamyelocytes) > 1% indicates that a LEFT SHIFT is Present. MCH (RBC) [Entitic mass] 29.9 pg 27.0-32.0 [facility] Nucleated RBC/100 WBC (Bld) [Ratio] 0 % 0-5 [facility] MCHC Auto (RBC) [Mass/Vol]Or dered By: Dr. Dainel on 01-15-2023 MCHC (RBC) [Mass/Vol] 32.7 g/dL 32-36 [facility] No Panel InformationOrdered By: Dr. Daniel on 01-15-2023 Estimated Creatinine Clearance Calc 58.79 ml/min [facility] Estimated GFR (MDRD) Amer 82 mL/min >60 [facility] Comment on above: GFR Calc Estimated GFR (MDRD) Non-Af Amer 68 mL/min >60 [facility] Comment on above: Non- GFR Calc Platelets bldOrdered By: Dr. Daniel on 01-15-2023 Platelets (Bld) [#/Vol] 285 10*3/uL 150-450 [facility] Serum or plasma albumin alfa urement (mass/volume)Ordered By: Dr. Daniel on 01-15-2023 Albumin [Mass/Vol] 3.6 g/dL 3.2-5.0 [facility] Serum or plasma albumin/glob ulin mass ratioOrdered By: Dr. Daniel on 01-15-2023 Albumin/Globulin [Mass ratio] 0.9 {ratio} 0.9-2.4 [facility] Serum or plasma calcium alfa urement (mass/volume)Ordered By: Dr. Daniel on 01-15-2023 Calcium [Mass/Vol] 8.8 mg/dL 8.5-10.1 [facility] Serum or plasma creatinine m easurement (mass/volume)Ordered By: Dr. Daniel on 01-15-2023 Creatinine [Mass/Vol] 1.14 mg/dL 0.70-1.30 [facility] Comment on above: The validity of the calculated GFR & GFRAA in patients over 70 years has not been determined. Clinical correlation is essential. Serum or plasma urea nitroge n measurement (mass/volume)Ordered By: Dr. Daniel on 01-15-2023 Urea nitrogen [Mass/Vol] 12 mg/dL 7-18 [facility] Thin prep Papanicolaou smear with manual screeningOrdered By: Dr. Daniel on 01-15-2023 Thin prep Papanicolaou smear with manual screening 22 U/L 15-37 [facility] Thin prep Papanicolaou smear with manual screening 5 5-15 [facility] INR in Blood by Coagulation assayOrdered By: Franky Galloway on 12-11-2022 INR Coag (Bld) [Relative time] 2.2 {INR} [facility] Laboratory - CoagulationOrde red By: Franky Galloway on 12-11-2022 PT Coag (PPP) [Time] 24.4 s 11.7-14.9 [facility] INR in Blood by Coagulation assayOrdered By: Dr. Portillo on 11-17-2022 INR Coag (Bld) [Relative time] 2.1 {INR} [facility] Laboratory - CoagulationOrde red By: Dr. Portillo on 11-17-2022 PT Coag (PPP) [Time] 23.2 s 11.7-14.9 [facility] Basophil percentageOrdered B y: Franky Galloway on 11-10-2022 Chloride [Moles/Vol] 108 mmol/L 98-107 [facility] Glucose [Mass/Vol] 81 mg/dL 74-106 [facility] Potassium [Moles/Vol] 4.4 mmol/L 3.5-5.1 [facility] Sodium [Moles/Vol] 137 mmol/L 136-145 [facility] Laboratory - Chemistry and C hemistry - challengeOrdered By: Franky Galloway on 11-10-2022 CO2 [Moles/Vol] 26.0 mmol/L 21.0-32.0 [facility] Urea nitrogen/Creatinine [Mass ratio] 15.4 mg/mg 10-20 [facility] No Panel InformationOrdered By: Franky Galloway on 11-10-2022 Estimated GFR (MDRD) Amer 75 mL/min >60 [facility] Comment on above: GFR Calc Estimated GFR (MDRD) Non-Af Amer 62 mL/min >60 [facility] Comment on above: Non- GFR Calc Serum or plasma calcium alfa urement (mass/volume)Ordered By: Franky Galloway on 11-10-2022 Calcium [Mass/Vol] 8.9 mg/dL 8.5-10.1 [facility] Serum or plasma creatinine m easurement (mass/volume)Ordered By: Franky Galloway on 11-10-2022 Creatinine [Mass/Vol] 1.23 mg/dL 0.70-1.30 [facility] Comment on above: The validity of the calculated GFR & GFRAA in patients over 70 years has not been determined. Clinical correlation is essential. Serum or plasma urea nitroge n measurement (mass/volume)Ordered By: Franky Galloway on 11-10-2022 Urea nitrogen [Mass/Vol] 19 mg/dL 7-18 [facility] Thin prep Papanicolaou smear with manual screeningOrdered By: Franky Galloway on 11-10-2022 Thin prep Papanicolaou smear with manual screening 3 5-15 [facility] Basophil percentageOrdered B y: Dr. Portillo on 10-31-2022 Bilirubin [Mass/Vol] 0.70 mg/dL 0.20-1.00 [facility] Comment on above: For patients on eltr ombopag therapy, use of Dimension [place] TBIL is not recommended. Protein [Mass/Vol] 7.9 g/dL 6.4-8.2 [facility] Laboratory - Chemistry and C hemistry - challengeOrdered By: Dr. Portillo on 10-31-2022 ALP [Catalytic activity/Vol] 63 U/L 45-117 [facility] ALT [Catalytic activity/Vol] 20 U/L 16-61 [facility] Globulin (S) [Mass/Vol] 3.8 g/dL 2.2-4.2 [facility] No Panel InformationOrdered By: Dr. Portillo on 10-31-2022 Vitamin D 25-Hydroxy 35.8 ng/mL [facility] Comment on above: Vitamin D 25(OH) Sta tus Range Deficiency <20 ng/mL (50nmol/L) Insufficiency 20 - 30 ng/mL (50 - 75 nmol/L) Sufficiency 30 - 100 ng/mL (75 - 250 nmol/L) Toxicity >100 ng/mL (>250 nmol/L) Serum or plasma albumin alfa urement (mass/volume)Ordered By: Dr. Portillo on 10-31-2022 Albumin [Mass/Vol] 4.1 g/dL 3.2-5.0 [facility] Serum or plasma albumin/glob ulin mass ratioOrdered By: Dr. Portillo on 10-31-2022 Albumin/Globulin [Mass ratio] 1.1 {ratio} 0.9-2.4 [facility] Thin prep Papanicolaou smear with manual screeningOrdered By: Dr. Portillo on 10-31-2022 Thin prep Papanicolaou smear with manual screening 21 U/L 15-37 [facility] INR in Blood by Coagulation assayOrdered By: Dr. Portillo on 10-02-2022 INR Coag (Bld) [Relative time] 2.3 {INR} [facility] Laboratory - CoagulationOrde red By: Dr. Portillo on 10-02-2022 PT Coag (PPP) [Time] 25.3 s 11.7-14.9 [facility] INR in Blood by Coagulation assayOrdered By: Dr. Portillo on 09-04-2022 INR Coag (Bld) [Relative time] 2.3 {INR} [facility] Laboratory - CoagulationOrde red By: Dr. Portillo on 09-04-2022 PT Coag (PPP) [Time] 24.5 s 11.7-14.9 [facility] INR in Blood by Coagulation assayOrdered By: Dr. Portillo on 08-16-2022 INR Coag (Bld) [Relative time] 2.8 {INR} [facility] Laboratory - CoagulationOrde red By: Dr. Portillo on 08-16-2022 PT Coag (PPP) [Time] 29.1 s 11.7-14.9 [facility] Basophil percentageOrdered B y: Dr. Sierra on 2022 Chloride [Moles/Vol] 99 mmol/L 98-107 [facility] Glucose [Mass/Vol] 109 mg/dL 74-106 [facility] Comment on above: Fasting Glucose resu lt from 100 to 125 mg/dL suggests IMPAIRED HOMEOSTASIS per A.D.A. criteria. Potassium [Moles/Vol] 3.9 mmol/L 3.5-5.1 [facility] Sodium [Moles/Vol] 135 mmol/L 136-145 [facility] WBC (Bld) [#/Vol] 8.5 10*3/uL 4.4-11.0 [facility] Blood erythrocytes count (nu mber/volume)Ordered By: Dr. Sierra on 01-05-2023 RBC (Bld) [#/Vol] 5.35 10*6/uL 4.6-6.2 [facility] Blood hemoglobin measurement (mass/volume)Ordered By: Dr. Sierra on 2022 Hemoglobin (Bld) [Mass/Vol] 16.1 g/dL 13.0-16.5 [facility] Blood platelet mean volumeOr dered By: Dr. Sierra on 2022 Platelet mean volume (Bld) [Entitic vol] 9.7 fL 6.2-12.0 [facility] Determination of erythrocyte mean corpuscular volume (MCV)Ordered By: Dr. Sierra on 2022 MCV (RBC) [Entitic vol] 89.3 fL 80-94 [facility] Hematocrit Auto (Bld) [Volum e fraction]Ordered By: Dr. Sierra on 2022 Hematocrit (Bld) [Volume fraction] 47.8 % 40-54 [facility] INR in Blood by Coagulation assayOrdered By: Dr. Sierra on 2022 INR Coag (Bld) [Relative time] 1.9 {INR} [facility] Laboratory - Chemistry and C hemistry - challengeOrdered By: Dr. Sierra on 2022 CO2 [Moles/Vol] 32.0 mmol/L 21.0-32.0 [facility] Urea nitrogen/Creatinine [Mass ratio] 12.1 mg/mg 10-20 [facility] Laboratory - CoagulationOrde red By: Dr. Sierra on 2022 PT Coag (PPP) [Time] 21.7 s 11.7-14.9 [facility] Laboratory - Hematology and Cell countsOrdered By: Dr. Sierra on 2022 Erythrocyte distribution width (RBC) [Entitic vol] 49.5 fL 35.1-43.9 [facility] Erythrocyte distribution width (RBC) [Ratio] 15.1 % 11.6-14.6 [facility] MCH (RBC) [Entitic mass] 30.1 pg 27.0-32.0 [facility] MCHC Auto (RBC) [Mass/Vol]Or dered By: Dr. Sierra on 2022 MCHC (RBC) [Mass/Vol] 33.7 g/dL 32-36 [facility] No Panel InformationOrdered By: Dr. Sierra on 2022 Estimated Creatinine Clearance Calc 57.81 ml/min [facility] Estimated GFR (MDRD) Amer 75 mL/min >60 [facility] Comment on above: GFR Calc Estimated GFR (MDRD) Non-Af Amer 62 mL/min >60 [facility] Comment on above: Non- GFR Calc Platelets bldOrdered By: Dr. Sierra on 2022 Platelets (Bld) [#/Vol] 320 10*3/uL 150-450 [facility] Serum or plasma calcium alfa urement (mass/volume)Ordered By: Dr. Sierra on 2022 Calcium [Mass/Vol] 9.5 mg/dL 8.5-10.1 [facility] Serum or plasma creatinine m easurement (mass/volume)Ordered By: Dr. Sierra on 2022 Creatinine [Mass/Vol] 1.24 mg/dL 0.70-1.30 [facility] Comment on above: The validity of the calculated GFR & GFRAA in patients over 70 years has not been determined. Clinical correlation is essential. Serum or plasma urea nitroge n measurement (mass/volume)Ordered By: Dr. Sierra on 2022 Urea nitrogen [Mass/Vol] 15 mg/dL 7-18 [facility] Thin prep Papanicolaou smear with manual screeningOrdered By: Dr. Sierra on 2022 Thin prep Papanicolaou smear with manual screening 4 5-15 [facility] INR in Blood by Coagulation assayOrdered By: Dr. Portillo on 07-26-2022 INR Coag (Bld) [Relative time] 1.7 {INR} [facility] Laboratory - CoagulationOrde red By: Dr. Portillo on 07-26-2022 PT Coag (PPP) [Time] 19.9 s 11.7-14.9 [facility] INR in Blood by Coagulation assayOrdered By: Dr. Chang on 06-28-2022 INR Coag (Bld) [Relative time] 2.7 {INR} [facility] Laboratory - CoagulationOrde red By: Dr. Chang on 06-28-2022 PT Coag (PPP) [Time] 28.4 s 11.7-14.9 [facility] Whole blood prothrombin time Ordered By: Pablo Pichardo on 06-28-2022 PT Coag (Bld) [Time] 28.5 s 11.7-14.9 [facility] INR in Blood by Coagulation assayOrdered By: Dr. Portillo on 06-01-2022 INR Coag (Bld) [Relative time] 2.9 {INR} [facility] Laboratory - CoagulationOrde red By: Dr. Portillo on 06-01-2022 PT Coag (PPP) [Time] 29.7 s 11.7-14.9 [facility] INR in Blood by Coagulation assayon 05-12-2022 INR Coag (Bld) [Relative time] 2.0 {INR} [facility] Work Phone: Laboratory - Coagulationon 1 PT Coag (PPP) [Time] 22.7 s 11.7-14.9 [facility] Work Phone: INR in Blood by Coagulation assayon 04-25-2022 INR Coag (Bld) [Relative time] 3.1 {INR} [facility] Work Phone: Laboratory - Coagulationon 0 04-25-2022 PT Coag (PPP) [Time] 31.8 s 11.7-14.9 [facility] Work Phone: INR in Blood by Coagulation assayon 03-28-2022 INR Coag (Bld) [Relative time] 3.7 {INR} [facility] Work Phone: Laboratory - Coagulationon 0 03-28-2022 PT Coag (PPP) [Time] 36.3 s 11.7-14.9 [facility] Work Phone: INR in Blood by Coagulation assayon 01-31-2022 INR Coag (Bld) [Relative time] 2.0 {INR} [facility] Work Phone: Laboratory - Coagulationon 0 01-31-2022 PT Coag (PPP) [Time] 22.4 s 11.7-14.9 [facility] Work Phone: INR in Blood by Coagulation assayon 01-19-2022 INR Coag (Bld) [Relative time] 1.9 {INR} [facility] Work Phone: Laboratory - Coagulationon 0 01-19-2022 PT Coag (PPP) [Time] 21.0 s 11.7-14.9 [facility] Work Phone: INR in Blood by Coagulation assayon 12-19-2021 INR Coag (Bld) [Relative time] 2.0 {INR} [facility] Work Phone: Laboratory - Coagulationon 0 12-19-2021 PT Coag (PPP) [Time] 22.5 s 11.7-14.9 [facility] Work Phone: INR in Blood by Coagulation assayon 11-23-2021 INR Coag (Bld) [Relative time] 2.5 {INR} [facility] Work Phone: Laboratory - Coagulationon 0 11-23-2021 PT Coag (PPP) [Time] 26.6 s 11.7-14.9 [facility] Work Phone: INR in Blood by Coagulation assayon 10-25-2021 INR Coag (Bld) [Relative time] 2.7 {INR} [facility] Work Phone: Laboratory - Coagulationon 0 10-25-2021 PT Coag (PPP) [Time] 27.6 s 11.7-14.9 [facility] Work Phone: Basophil percentageon 2021 Bilirubin [Mass/Vol] 0.60 mg/dL 0.20-1.00 [facility] Work Phone: Comment on above: For patients on eltr ombopag therapy, use of Dimension [place] TBIL is not recommended. Chloride [Moles/Vol] 101 mmol/L 98-107 [facility] Work Phone: Glucose [Mass/Vol] 89 mg/dL 74-106 [facility] Work [facility]: Potassium [Moles/Vol] 3.7 mmol/L 3.5-5.1 [facility] Work Phone: Protein [Mass/Vol] 7.6 g/dL 6.4-8.2 [facility] Work Phone: Sodium [Moles/Vol] 135 mmol/L 136-145 [facility] Work Phone: Laboratory - Chemistry and C hemistry - challengeon 10-10-2021 ALP [Catalytic activity/Vol] 61 U/L 45-117 [facility] Work Phone: ALT [Catalytic activity/Vol] 33 U/L 16-61 [facility] Work Phone: CO2 [Moles/Vol] 30.0 mmol/L 21.0-32.0 [facility] Work Phone: Globulin (S) [Mass/Vol] 3.7 g/dL 2.2-4.2 [facility] Work Phone: Urea nitrogen/Creatinine [Mass ratio] 6.1 mg/mg 10-20 [facility] Work Phone: No Panel Informationon 10-10 Estimated GFR (MDRD) Amer 98 mL/min >60 [facility] Work Phone: Comment on above: GFR Calc Estimated GFR (MDRD) Non-Af Amer 81 mL/min >60 [facility] Work Phone: Comment on above: Non- GFR Calc Vitamin D 25-Hydroxy 36.2 ng/mL [facility] Work Phone: Comment on above: Vitamin D 25(OH) Sta tus Range Deficiency <20 ng/mL (50nmol/L) Insufficiency 20 - 30 ng/mL (50 - 75 nmol/L) Sufficiency 30 - 100 ng/mL (75 - 250 nmol/L) Toxicity >100 ng/mL (>250 nmol/L) Serum or plasma albumin alfa urement (mass/volume)on 10-10-2021 Albumin [Mass/Vol] 3.9 g/dL 3.2-5.0 [facility] Work Phone: Serum or plasma albumin/glob ulin mass ratioon 10-10-2021 Albumin/Globulin [Mass ratio] 1.1 {ratio} 0.9-2.4 [facility] Work Phone: Serum or plasma calcium alfa urement (mass/volume)on 10-10-2021 Calcium [Mass/Vol] 9.4 mg/dL 8.5-10.1 [facility] Work Phone: Serum or plasma creatinine m easurement (mass/volume)on 10-10-2021 Creatinine [Mass/Vol] 0.99 mg/dL 0.70-1.30 [facility] Work Phone: Comment on above: The validity of the calculated GFR & GFRAA in patients over 70 years has not been determined. Clinical correlation is essential. Serum or plasma urea nitroge n measurement (mass/volume)on 10-10-2021 Urea nitrogen [Mass/Vol] 6 mg/dL 7-18 [facility] Work Phone: Thin prep Papanicolaou smear with manual screeningon 10-10-2021 Thin prep Papanicolaou smear with manual screening 28 U/L 15-37 [facility] Work Phone: Thin prep Papanicolaou smear with manual screening 4 5-15 [facility] Work Phone: INR in Blood by Coagulation assayon 09-26-2021 INR Coag (Bld) [Relative time] 2.5 {INR} [facility] Work Phone: Laboratory - Coagulationon 0 09-26-2021 PT Coag (PPP) [Time] 26.2 s 11.7-14.9 [facility] Work Phone: INR in Blood by Coagulation assayon 08-02-2021 INR Coag (Bld) [Relative time] 2.5 {INR} [facility] Work Phone: Laboratory - Coagulationon 0 08-02-2021 PT Coag (PPP) [Time] 26.3 s 11.7-14.9 [facility] Work Phone: INR in Blood by Coagulation assayon 07-20-2021 INR Coag (Bld) [Relative time] 1.9 {INR} [facility] Work Phone: Laboratory - Coagulationon 1 09-20-2020 PT Coag (PPP) [Time] 20.9 s 11.7-14.9 [facility] Work Phone: CT CHEST W/O CONTRASTon 12-29 CT CHEST W/O CONTRAST Performed at [facility] APPROVED BY: JUNIOR TINAJERO MD EXAMINATION: CHEST [...] 6 mm nodule seen within the right upper lobe (series 4, image #165). There is a stable, approximately 6 mm nodule seen within the right middle lobe (series 4, image #215). There is a stable, approximately 6-7 mm nodule seen within the right lower lobe, abutting the right hemidiaphragm (series 4, image #217). There is a stable, approximately 5 mm nodule seen within left lower lobe (series 4, image #176). Multiple other subcentimeter pulmonary nodules are also stable. A few calcified granulomas are seen within the lungs. There is no CT evidence for pneumonia. There is no pleural effusion, endobronchial lesion, or pneumothorax. Thoracic inlet, heart, and mediastinum: There are stable prominent, not pathologically enlarged mediastinal and bilateral hilar lymph nodes, likely reactive. No jeniffer axillary adenopathy is identified. Atherosclerotic calcifications are present within the thoracic aorta and coronary arteries. The heart is normal in size, and there is no significant pericardial effusion. The main pulmonary is dilated, measuring approximately 3.1 cm, which can be [...] deformities are again seen within the spine. Normal [employer] ECG B/O W INTERP (MED OFFICE ) [facility] Vital Signs Date Time Vital Sign Value Performing Clinician Facility 12-09-2024 11:24-0400 Body height 175.26 cm Adriel Khan MD Work Phone: [facility] 12-09-2024 11:24-0400 Body mass index (BMI) [Ratio] 25 kg/m2 Adriel Khan MD Work Phone: [facility] 12-09-2024 11:24-0400 Body weight 76.77 kg Adriel Khan MD Work Phone: [facility] 12-09-2024 06:18-0400 Body mass index (BMI) [Ratio] 24.7 kg/m2 Adriel Khan MD Work Phone: [facility] 12-09-2024 06:18-0400 Body weight 76.2 kg Adriel Khan MD Work Phone: [facility] 12-09-2024 06:18-0400 Diastolic blood pressure 78 mm[Hg] Adriel Khan MD Work Phone: [facility] 12-09-2024 06:18-0400 Heart rate 69 /min Adriel Khan MD Work Phone: [facility] 12-09-2024 06:18-0400 Respiratory rate 18 /min Adriel Khan MD Work Phone: [facility] 12-09-2024 06:18-0400 SaO2% (BldA) [Mass fraction] 94 % Adriel Khan MD Work Phone: [facility] 12-09-2024 06:18-0400 Systolic blood pressure 123 mm[Hg] Adriel Khan MD Work Phone: [facility] 12-04-2024 08:56-0400 Body height 170.2 cm Dwayne Wells MD Work Phone: [facility] 12-04-2024 08:56-0400 Body mass index (BMI) [Ratio] 25.53 kg/m2 Dwayne Wells MD Work Phone: [facility] 12-04-2024 08:56-0400 Body weight 73.94 kg Dwayne Wells MD Work Phone: [facility] 12-04-2024 08:56-0400 Diastolic blood pressure 64 mm[Hg] Dwayne Welsl MD Work Phone: [facility] Comment on above: (R) arm 12-04-2024 08:56-0400 Heart rate 64 /min Dwayne Wells MD Work Phone: [facility] 12-04-2024 08:56-0400 Respiratory rate 18 /min Dwayne Wells MD Work Phone: [facility] 12-04-2024 08:56-0400 SaO2% (BldA) [Mass fraction] 95 % Dwayne Wells MD Work Phone: [facility] 12-04-2024 08:56-0400 Systolic blood pressure 120 mm[Hg] Dwayne Wells MD Work Phone: [facility] Comment on above: (R) arm 11-27-2024 01:02-0400 Body mass index (BMI) [Ratio] 24.1 kg/m2 Adriel Khan MD Work Phone: [facility] 11-25-2024 20:39-0400 Body temperature 98.4 [degF] Adriel Khan MD Work Phone: [facility] 11-25-2024 20:39-0400 Diastolic blood pressure 91 mm[Hg] Adriel Khan MD Work Phone: [facility] 11-25-2024 20:39-0400 Heart rate 91 /min Adriel Khan MD Work Phone: [facility] 11-25-2024 20:39-0400 Respiratory rate 18 /min Adriel Khan MD Work Phone: [facility] 11-25-2024 20:39-0400 SaO2% (BldA) [Mass fraction] 95 % Adriel Khan MD Work Phone: [facility] 11-25-2024 20:39-0400 Systolic blood pressure 118 mm[Hg] Adriel Khan MD Work Phone: [facility] 11-25-2024 14:29-0400 Body height 175.26 cm Adriel Khan MD Work Phone: [facility] 11-25-2024 14:29-0400 Body mass index (BMI) [Ratio] 24.7 kg/m2 Adriel Khan MD Work Phone: [facility] 11-25-2024 14:29-0400 Body weight 76.2 kg Adriel Khan MD Work Phone: [facility] 10-27-2024 23:40-0400 Body mass index (BMI) [Ratio] 24.1 kg/m2 Adriel Khan MD Work Phone: [facility] 10-15-2024 05:24-0400 Body mass index (BMI) [Ratio] 23.3 kg/m2 Adriel Khan MD Work Phone: [facility] 10-15-2024 05:24-0400 Body temperature 97.2 [degF] Adriel Khan MD Work Phone: [facility] 10-15-2024 05:24-0400 Body weight 71.66 kg Adriel Khan MD Work Phone: [facility] 10-15-2024 05:24-0400 Diastolic blood pressure 70 mm[Hg] Adriel Khan MD Work Phone: 3(099)[phone] [address] 10-15-2024 05:24-0400 Heart rate 73 /min Adriel Khan MD Work Phone: [facility] 10-15-2024 05:24-0400 Respiratory rate 20 /min Adriel Khan MD Work Phone: [phone](706)[phone] [address] 10-15-2024 05:24-0400 SaO2% (BldA) [Mass fraction] 98 % Adriel Khan MD Work Phone: 2(519)[phone] [address] 10-15-2024 05:24-0400 Systolic blood pressure 108 mm[Hg] Adriel Khan MD Work Phone: 4(302)[phone] [address] 09-27-2024 08:25-0500 Body mass index (BMI) [Ratio] 24.1 kg/m2 Adriel Khan MD Work Phone: 1(097)[phone] [address] 08-30-2024 02:46-0500 Body mass index (BMI) [Ratio] 24.1 kg/m2 Adriel Khan MD Work Phone: 0(542)[phone] [address] 08-18-2024 14:12-0500 Body height 175.26 cm Adriel Khan MD Work Phone: 4([phone])[phone] [address] 08-18-2024 14:12-0500 Body mass index (BMI) [Ratio] 23.6 kg/m2 Adriel Khan MD Work Phone: 4(860)[phone] [address] 08-18-2024 14:12-0500 Body weight 72.57 kg Adriel Khan MD Work Phone: [phone](347)[phone] [address] 08-18-2024 14:12-0500 Diastolic blood pressure 75 mm[Hg] Adriel Khan MD Work Phone: [facility] 08-18-2024 14:12-0500 Heart rate 71 /min Adriel Khan MD Work Phone: [facility] 08-18-2024 14:12-0500 Respiratory rate 18 /min Adriel Khan MD Work Phone: [facility] 08-18-2024 14:12-0500 SaO2% (BldA) [Mass fraction] 96 % Adriel Khan MD Work Phone: [facility] 08-18-2024 14:12-0500 Systolic blood pressure 117 mm[Hg] Adriel Khan MD Work Phone: [facility] 07-30-2024 05:02-0500 Body mass index (BMI) [Ratio] 24.1 kg/m2 Adriel Khan MD Work Phone: [facility] 07-17-2024 11:20-0500 Diastolic blood pressure 68 mm[Hg] Adriel Khan MD Work Phone: [facility] 07-17-2024 11:20-0500 Heart rate 71 /min Adriel Khan MD Work Phone: [facility] 07-17-2024 11:20-0500 Respiratory rate 18 /min Adriel Khan MD Work Phone: [facility] 07-17-2024 11:20-0500 SaO2% (BldA) [Mass fraction] 97 % Adriel Khan MD Work Phone: [facility] 07-17-2024 11:20-0500 Systolic blood pressure 95 mm[Hg] Adriel Khan MD Work Phone: [facility] 07-17-2024 11:04-0500 Body temperature 97.2 [degF] Adriel Khan MD Work Phone: [facility] 07-17-2024 09:19-0500 Body mass index (BMI) [Ratio] 22.6 kg/m2 Adriel Khan MD Work Phone: [facility] 07-17-2024 09:19-0500 Body weight 69.5 kg Adriel Khan MD Work Phone: [facility] 07-16-2024 07:54-0500 Body mass index (BMI) [Ratio] 22.4 kg/m2 Adriel Khan MD Work Phone: [facility] 07-16-2024 07:54-0500 Body temperature 97.6 [degF] Adriel Khan MD Work Phone: [facility] 07-16-2024 07:54-0500 Body weight 68.94 kg Adriel Khan MD Work Phone: [facility] 07-16-2024 07:54-0500 Diastolic blood pressure 67 mm[Hg] Adriel Khan MD Work Phone: [facility] 07-16-2024 07:54-0500 Heart rate 65 /min Adriel Khan MD Work Phone: [facility] 07-16-2024 07:54-0500 Respiratory rate 18 /min Adriel Khan MD Work Phone: [facility] 07-16-2024 07:54-0500 SaO2% (BldA) [Mass fraction] 97 % Adriel Khan MD Work Phone: [facility] 07-16-2024 07:54-0500 Systolic blood pressure 107 mm[Hg] Adriel Khan MD Work Phone: [facility] 06-29-2024 03:12-0500 Body mass index (BMI) [Ratio] 24.1 kg/m2 Adriel Khan MD Work Phone: [facility] 12-06-2023 09:58-0400 Body height 170.2 cm Dwayne Wells MD Work Phone: [facility] 12-06-2023 09:58-0400 Body mass index (BMI) [Ratio] 25.37 kg/m2 Dwayne Wells MD Work Phone: [facility] 12-06-2023 09:58-0400 Body weight 73.48 kg Dwayne Wells MD Work Phone: [facility] 12-06-2023 09:58-0400 Diastolic blood pressure 64 mm[Hg] Dwayne Wells MD Work Phone: [facility] 12-06-2023 09:58-0400 Heart rate 74 /min Dwayne Wells MD Work Phone: [facility] 12-06-2023 09:58-0400 SaO2% (BldA) [Mass fraction] 97 % Dwayne Wells MD Work Phone: [facility] 12-06-2023 09:58-0400 Systolic blood pressure 97 mm[Hg] Dwayne Wells MD Work Phone: [facility] 11-30-2023 12:25-0400 Body height 175.26 cm DO Jahaira Eryn Work Phone: [facility] 11-30-2023 12:25-0400 Body mass index (BMI) [Ratio] 24.3 kg/m2 DO Jahaira Eryn Work Phone: [facility] 11-30-2023 12:25-0400 Body temperature 97.2 [degF] DO Jahaira Eryn Work Phone: [facility] 11-30-2023 12:25-0400 Body weight 74.84 kg DO Jahaira Eryn Work Phone: [facility] 11-30-2023 12:25-0400 Diastolic blood pressure 80 mm[Hg] DO Jahaira Eryn Work Phone: [facility] 11-30-2023 12:25-0400 Heart rate 94 /min DO Jahaira Eryn Work Phone: [facility] 11-30-2023 12:25-0400 Respiratory rate 16 /min DO Jahaira Eryn Work Phone: [facility] 11-30-2023 12:25-0400 SaO2% (BldA) [Mass fraction] 97 % DO Jahaira Eryn Work Phone: [facility] 11-30-2023 12:25-0400 Systolic blood pressure 108 mm[Hg] DO Jahaira Eryn Work Phone: [facility] 11-20-2023 12:55-0400 Body temperature 96.9 [degF] DO Jahaira Reyn Work Phone: [facility] 11-20-2023 12:55-0400 Diastolic blood pressure 69 mm[Hg] DO Jahaira Eryn Work Phone: [facility] 11-20-2023 12:55-0400 Heart rate 63 /min DO Jahaira Eryn Work Phone: [facility] 11-20-2023 12:55-0400 Respiratory rate 16 /min DO Jahaira Eryn Work Phone: [facility] 11-20-2023 12:55-0400 SaO2% (BldA) [Mass fraction] 95 % DO Jahaira Eryn Work Phone: [facility] 11-20-2023 12:55-0400 Systolic blood pressure 95 mm[Hg] DO Jahaira Eryn Work Phone: [facility] 11-20-2023 11:04-0400 Body height 175.26 cm DO Jahaira Eryn Work Phone: [facility] 11-20-2023 11:04-0400 Body mass index (BMI) [Ratio] 23.8 kg/m2 DO Jahaira Eryn Work Phone: [facility] 11-20-2023 11:04-0400 Body weight 73 kg DO Jahaira Eryn Work Phone: [facility] 10-28-2023 01:25-0400 Body mass index (BMI) [Ratio] 24.1 kg/m2 DO Jahaira Eryn Work Phone: [facility] 10-16-2023 15:59-0400 Body temperature 97.2 [degF] DO Jahairaoliver Humphriesnger Work Phone: [facility] 10-16-2023 15:59-0400 Diastolic blood pressure 72 mm[Hg] DO Jahaira Eryn Work Phone: [facility] 10-16-2023 15:59-0400 Heart rate 61 /min DO Jahaira Eryn Work Phone: [facility] 10-16-2023 15:59-0400 Respiratory rate 18 /min DO Jahaira Eryn Work Phone: [facility] 10-16-2023 15:59-0400 SaO2% (BldA) [Mass fraction] 96 % DO Jahaira Eryn Work Phone: [facility] 10-16-2023 15:59-0400 Systolic blood pressure 121 mm[Hg] DO Jahairaoliver Humphriesnger Work Phone: [facility] 10-16-2023 15:35-0400 Inhaled oxygen flow rate 2 L/min DO Jahairaoliver Humphriesnger Work Phone: [facility] 10-16-2023 12:16-0400 Body height 175.26 cm DO Jahairaoliver Humphriesnger Work Phone: [facility] 10-16-2023 12:16-0400 Body mass index (BMI) [Ratio] 24 kg/m2 DO Jahaira Eryn Work Phone: [facility] 10-16-2023 12:16-0400 Body weight 73.7 kg DO Jahaira Eryn Work Phone: [facility] 10-12-2023 10:03-0400 Body mass index (BMI) [Ratio] 24.7 kg/m2 DO Jahaira Eryn Work Phone: [facility] 10-12-2023 10:03-0400 Body temperature 98 [degF] DO Jahaira Eryn Work Phone: [facility] 10-12-2023 10:03-0400 Body weight 76.2 kg DO Jahaira Eryn Work Phone: [facility] 10-12-2023 10:03-0400 Diastolic blood pressure 66 mm[Hg] DO Jahaira Eryn Work Phone: [facility] 10-12-2023 10:03-0400 Heart rate 67 /min DO Jahaira Eryn Work Phone: [facility] 10-12-2023 10:03-0400 Respiratory rate 16 /min DO Jahaira Eryn Work Phone: [facility] 10-12-2023 10:03-0400 SaO2% (BldA) [Mass fraction] 96 % DO Jahaira Eryn Work Phone: [facility] 10-12-2023 10:03-0400 Systolic blood pressure 110 mm[Hg] DO Jahaira Eryn Work Phone: [facility] 09-18-2023 14:42-0500 Body temperature 96.9 [degF] DO Jahaira Eryn Work Phone: [facility] 09-18-2023 14:42-0500 Diastolic blood pressure 88 mm[Hg] DO Jahaira Eryn Work Phone: [facility] 09-18-2023 14:42-0500 Heart rate 53 /min DO Jahaira Eryn Work Phone: [facility] 09-18-2023 14:42-0500 Respiratory rate 16 /min DO Jahaira Eryn Work Phone: [facility] 09-18-2023 14:42-0500 SaO2% (BldA) [Mass fraction] 97 % DO Jahaira Eryn Work Phone: [facility] 09-18-2023 14:42-0500 Systolic blood pressure 139 mm[Hg] DO Jahaira Eryn Work Phone: [facility] 09-18-2023 12:52-0500 Body height 175.26 cm DO Jahaira Eryn Work Phone: [facility] 09-18-2023 12:52-0500 Body mass index (BMI) [Ratio] 25.2 kg/m2 DO Jahaira Eryn Work Phone: [facility] 09-18-2023 12:52-0500 Body weight 77.6 kg DO Jahaira Eryn Work Phone: [facility] 08-29-2023 23:32-0500 Body mass index (BMI) [Ratio] 24.1 kg/m2 DO Jahaira Eryn Work Phone: [facility] 08-15-2023 12:14-0500 Body temperature 97.8 [degF] DO Jahaira Eryn Work Phone: [facility] 08-15-2023 12:14-0500 Diastolic blood pressure 71 mm[Hg] DO Jahaira Eryn Work Phone: [facility] 08-15-2023 12:14-0500 Heart rate 52 /min DO Jahaira Eryn Work Phone: [facility] 08-15-2023 12:14-0500 Respiratory rate 16 /min DO Jahaira Eryn Work Phone: [facility] 08-15-2023 12:14-0500 SaO2% (BldA) [Mass fraction] 95 % DO Jahaira Eryn Work Phone: [facility] 08-15-2023 12:14-0500 Systolic blood pressure 105 mm[Hg] DO Jahaira Eryn Work Phone: [facility] 08-15-2023 09:59-0500 Body height 175.26 cm DO Jahaira Eryn Work Phone: [facility] 08-15-2023 09:59-0500 Body mass index (BMI) [Ratio] 25.7 kg/m2 DO Jahaira Eryn Work Phone: [facility] 08-15-2023 09:59-0500 Body weight 79 kg DO Jahaira Eryn Work Phone: [facility] 08-07-2023 07:38-0500 Body height 170.18 cm DO Jahaira Eryn Work Phone: [facility] 08-07-2023 07:38-0500 Body mass index (BMI) [Ratio] 27.7 kg/m2 DO Jahaira Eryn Work Phone: [facility] 08-07-2023 07:38-0500 Body temperature 97.1 [degF] DO Jahaira Eryn Work Phone: [facility] 08-07-2023 07:38-0500 Body weight 80.3 kg DO Jahaira Eryn Work Phone: [facility] 08-07-2023 07:38-0500 Diastolic blood pressure 96 mm[Hg] DO Jahaira Eryn Work Phone: [facility] 08-07-2023 07:38-0500 Heart rate 82 /min DO Jahaira Eryn Work Phone: [facility] 08-07-2023 07:38-0500 Respiratory rate 14 /min DO Jahaira Eryn Work Phone: [facility] 08-07-2023 07:38-0500 SaO2% (BldA) [Mass fraction] 99 % DO Jahaira Eryn Work Phone: [facility] 08-07-2023 07:38-0500 Systolic blood pressure 162 mm[Hg] DO Jahaira Eryn Work Phone: [facility] 07-29-2023 23:18-0500 Body mass index (BMI) [Ratio] 24.1 kg/m2 DO Jahaira Eryn Work Phone: [facility] 07-10-2023 13:40-0500 Body temperature 96.9 [degF] DO Jahaira Eryn Work Phone: [facility] 07-10-2023 13:40-0500 Diastolic blood pressure 73 mm[Hg] DO Jahaira Eryn Work Phone: [facility] 07-10-2023 13:40-0500 Heart rate 57 /min DO Jahaira Eryn Work Phone: [facility] 07-10-2023 13:40-0500 Respiratory rate 16 /min DO Jahaira Eryn Work Phone: [facility] 07-10-2023 13:40-0500 SaO2% (BldA) [Mass fraction] 99 % DO Jahaira Eryn Work Phone: [facility] 07-10-2023 13:40-0500 Systolic blood pressure 112 mm[Hg] DO Jahaira Eryn Work Phone: [facility] 07-10-2023 12:02-0500 Body height 175.26 cm DO Jahaira Eryn Work Phone: [facility] 07-10-2023 12:02-0500 Body mass index (BMI) [Ratio] 25.7 kg/m2 DO Jahaira Eryn Work Phone: [facility] 07-10-2023 12:02-0500 Body weight 79.2 kg DO Jahaira Eryn Work Phone: [facility] 06-18-2023 07:07-0500 Body mass index (BMI) [Ratio] 27.2 kg/m2 DO Jahaira Eryn Work Phone: [facility] 06-18-2023 07:07-0500 Body temperature 97.4 [degF] DO Jahaira Eryn Work Phone: [facility] 06-18-2023 07:07-0500 Body weight 78.92 kg DO Jahaira Eryn Work Phone: [facility] 06-18-2023 07:07-0500 Diastolic blood pressure 74 mm[Hg] DO Jahaira Eryn Work Phone: [facility] 06-18-2023 07:07-0500 Heart rate 70 /min DO Jahaira Eryn Work Phone: [facility] 06-18-2023 07:07-0500 Respiratory rate 16 /min DO Jahaira Cerna Work Phone: [facility] 06-18-2023 07:07-0500 SaO2% (BldA) [Mass fraction] 98 % DO Jahaira Cerna Work Phone: [facility] 06-18-2023 07:07-0500 Systolic blood pressure 115 mm[Hg] DO Jahaira Cerna Work Phone: [facility] 06-01-2023 12:28-0400 Body height 170.18 cm [facility] 06-01-2023 12:28-0400 Body temperature 97 [degF] [facility] 06-01-2023 12:28-0400 Diastolic blood pressure 77 mm[Hg] [facility] 06-01-2023 12:28-0400 Heart rate 75 /min [facility] 06-01-2023 12:28-0400 Respiratory rate 16 /min [facility] 06-01-2023 12:28-0400 SaO2% (BldA) [Mass fraction] 94 % [facility] 06-01-2023 12:28-0400 Systolic blood pressure 134 mm[Hg] [facility] 05-29-2023 22:42-0400 Body mass index (BMI) [Ratio] 24.1 kg/m2 DO Jahaira Cerna Work Phone: [facility] 04-29-2023 04:20-0400 Body mass index (BMI) [Ratio] 24.1 kg/m2 [facility] 03-29-2023 23:27-0400 Body mass index (BMI) [Ratio] 24.1 kg/m2 Dr. Neeraj Daugherty [facility] 02-27-2023 01:09-0400 Body mass index (BMI) [Ratio] 24.1 kg/m2 Dr. Neeraj Daugherty Work Phone: [facility] 01-27-2023 01:20-0400 Body mass index (BMI) [Ratio] 24.1 kg/m2 Dr. Neeraj Daugherty Work Phone: [facility] 01-15-2023 22:12-0400 Diastolic blood pressure 88 mm[Hg] Dr. Neeraj Daugherty Work Phone: [facility] 01-15-2023 22:12-0400 Heart rate 70 /min Dr. Neeraj Daugherty Work Phone: [facility] 01-15-2023 22:12-0400 Respiratory rate 14 /min Dr. Neeraj Daugherty Work Phone: [facility] 01-15-2023 22:12-0400 SaO2% (BldA) [Mass fraction] 99 % Dr. Neeraj Daugherty Work Phone: [facility] 01-15-2023 22:12-0400 Systolic blood pressure 129 mm[Hg] Dr. Neeraj Daugherty Work Phone: [facility] 01-15-2023 18:22-0400 Body height 170.[address] Neeraj Daugherty Work Phone: [facility] 01-15-2023 18:22-0400 Body mass index (BMI) [Ratio] 27 kg/m2 Dr. Neeraj Daugherty Work Phone: [facility] 01-15-2023 18:22-0400 Body temperature 97.9 [degF] Dr. Neeraj Daugherty Work Phone: [facility] 01-15-2023 18:22-0400 Body weight 78.[address] Neeraj Daugherty Work Phone: [facility] 01-10-2023 08:49-0400 Body mass index (BMI) [Ratio] 26.4 kg/m2 Dr. Neeraj Daugherty Work Phone: [facility] 01-10-2023 08:49-0400 Body weight 76.[address] Neeraj Daugherty Work Phone: [facility] 01-10-2023 08:49-0400 Diastolic blood pressure 71 mm[Hg] Dr. Neeraj Daugherty Work Phone: [facility] 01-10-2023 08:49-0400 Heart rate 61 /min Dr. Neeraj Daugherty Work Phone: [facility] 01-10-2023 08:49-0400 Respiratory rate 18 /min Dr. Neeraj Daugherty Work Phone: [facility] 01-10-2023 08:49-0400 SaO2% (BldA) [Mass fraction] 98 % Dr. Neeraj Daugherty Work Phone: [facility] 01-10-2023 08:49-0400 Systolic blood pressure 108 mm[Hg] Dr. Neeraj Daugherty Work Phone: [facility] 01-10-2023 07:58-0400 Body mass index (BMI) [Ratio] 26.6 kg/m2 Dr. Neeraj Daugherty Work Phone: [facility] 01-10-2023 07:58-0400 Body weight 77.[address] Neeraj Daugherty Work Phone: [facility] 01-10-2023 07:58-0400 Diastolic blood pressure 81 mm[Hg] Dr. Neeraj Daugherty Work Phone: [facility] 01-10-2023 07:58-0400 Heart rate 64 /min Dr. Neeraj Daugherty Work Phone: [facility] 01-10-2023 07:58-0400 SaO2% (BldA) [Mass fraction] 96 % Dr. Neeraj Daugherty Work Phone: [facility] 01-10-2023 07:58-0400 Systolic blood pressure 125 mm[Hg] Dr. Neeraj Daugherty Work Phone: [facility] 12-28-2022 08:21-0400 Body mass index (BMI) [Ratio] 24.1 kg/m2 Dr. Neeraj Daugherty Work Phone: [facility] 12-14-2022 05:55-0400 Body height 170.[address] Neeraj Daugherty Work Phone: [facility] 12-14-2022 05:55-0400 Body mass index (BMI) [Ratio] 26.3 kg/m2 Dr. Neeraj Daugherty Work Phone: [facility] 12-14-2022 05:55-0400 Body temperature 97.3 [degF] Dr. Neeraj Daugherty Work Phone: [facility] 12-14-2022 05:55-0400 Body weight 76.[address] Neeraj Daugherty Work Phone: [facility] 12-14-2022 05:55-0400 Diastolic blood pressure 79 mm[Hg] Dr. Neeraj Daugherty Work Phone: [facility] 12-14-2022 05:55-0400 Heart rate 75 /min Dr. Neeraj Daugherty Work Phone: [facility] 12-14-2022 05:55-0400 Respiratory rate 18 /min Dr. Neeraj Daugherty Work Phone: [facility] 12-14-2022 05:55-0400 SaO2% (BldA) [Mass fraction] 97 % Dr. Neeraj Daugherty Work Phone: [facility] 12-14-2022 05:55-0400 Systolic blood pressure 129 mm[Hg] Dr. Neeraj Daugherty Work Phone: [facility] 12-05-2022 10:42-0400 Body height 170.2 cm Dwayne Wells MD Work Phone: [facility] 12-05-2022 10:42-0400 Body weight 76.66 kg Dwayne Wells MD Work Phone: [facility] 12-05-2022 10:42-0400 Diastolic blood pressure 83 mm[Hg] Dwayne Wells MD Work Phone: [facility] 12-05-2022 10:42-0400 Heart rate 73 /min Dwayne Wells MD Work Phone: [facility] 12-05-2022 10:42-0400 SaO2% (BldA) [Mass fraction] 95 % Dwayne Wells MD Work Phone: [facility] 12-05-2022 10:42-0400 Systolic blood pressure 125 mm[Hg] Dwayne Wells MD Work Phone: [facility] 11-30-2022 12:40-0400 Body height 170.[address] Neeraj Daugherty Work Phone: [facility] 11-30-2022 12:40-0400 Body mass index (BMI) [Ratio] 26.3 kg/m2 Dr. Neeraj Daugherty Work Phone: [facility] 11-30-2022 12:40-0400 Body temperature 97.1 [degF] Dr. Neeraj Daugherty Work Phone: [facility] 11-30-2022 12:40-0400 Body weight 76.[address] Neeraj Daugherty Work Phone: [facility] 11-30-2022 12:40-0400 Diastolic blood pressure 88 mm[Hg] Dr. Neeraj Daugherty Work Phone: [facility] 11-30-2022 12:40-0400 Heart rate 87 /min Dr. Neeraj Daugherty Work Phone: [facility] 11-30-2022 12:40-0400 Respiratory rate 17 /min Dr. Neeraj Daugherty Work Phone: [facility] 11-30-2022 12:40-0400 SaO2% (BldA) [Mass fraction] 96 % Dr. Neeraj Daugherty Work Phone: [facility] 11-30-2022 12:40-0400 Systolic blood pressure 122 mm[Hg] Dr. Neeraj Daugherty Work Phone: [facility] 11-26-2022 02:16-0400 Body mass index (BMI) [Ratio] 24.1 kg/m2 Dr. Neeraj Daugherty Work Phone: [facility] 11-15-2022 13:53-0400 Body height 170.[address] Neeraj Daugherty Work Phone: [facility] 11-15-2022 13:53-0400 Body mass index (BMI) [Ratio] 26.5 kg/m2 Dr. Neeraj Daugherty Work Phone: [facility] 11-15-2022 13:53-0400 Body weight 76.[address] Neeraj Daugherty Work Phone: [facility] 11-15-2022 13:53-0400 Diastolic blood pressure 77 mm[Hg] Dr. Neeraj Daugherty Work Phone: [facility] 11-15-2022 13:53-0400 Heart rate 90 /min Dr. Neeraj Daugherty Work Phone: [facility] 11-15-2022 13:53-0400 Respiratory rate 16 /min Dr. Neeraj Daugherty Work Phone: [facility] 11-15-2022 13:53-0400 SaO2% (BldA) [Mass fraction] 98 % Dr. Neeraj Daugherty Work Phone: [facility] 11-15-2022 13:53-0400 Systolic blood pressure 122 mm[Hg] Dr. Neeraj Daugherty Work Phone: [facility] 11-07-2022 08:18-0400 Body temperature 98 [degF] Dr. Neeraj Daugherty Work Phone: [facility] 11-07-2022 08:18-0400 Diastolic blood pressure 70 mm[Hg] Dr. Neeraj Daugherty Work Phone: [facility] 11-07-2022 08:18-0400 Heart rate 82 /min Dr. Neeraj Daugherty Work Phone: [facility] 11-07-2022 08:18-0400 Respiratory rate 14 /min Dr. Neeraj Daugherty Work Phone: [facility] 11-07-2022 08:18-0400 SaO2% (BldA) [Mass fraction] 98 % Dr. Neeraj Daugherty Work Phone: [facility] 11-07-2022 08:18-0400 Systolic blood pressure 130 mm[Hg] Dr. Neeraj Daugherty Work Phone: [facility] 10-28-2022 00:05-0400 Body mass index (BMI) [Ratio] 24.1 kg/m2 Dr. Neeraj Daugherty Work Phone: [facility] 10-12-2022 10:10-0400 Body height 175.[address] Neeraj Daugherty Work Phone: [facility] 10-12-2022 10:10-0400 Body mass index (BMI) [Ratio] 24.7 kg/m2 Dr. Neeraj Daugherty Work Phone: [facility] 10-12-2022 10:10-0400 Body temperature 95.2 [degF] Dr. Neeraj Daugherty Work Phone: [facility] 10-12-2022 10:10-0400 Body weight 76.[address] Neeraj Daugherty Work Phone: [facility] 10-12-2022 10:10-0400 Diastolic blood pressure 78 mm[Hg] Dr. Neeraj Daugherty Work Phone: [facility] 10-12-2022 10:10-0400 Heart rate 71 /min Dr. Neeraj Daugherty Work Phone: [facility] 10-12-2022 10:10-0400 Respiratory rate 20 /min Dr. Neeraj Daugherty Work Phone: [facility] 10-12-2022 10:10-0400 SaO2% (BldA) [Mass fraction] 95 % Dr. Neeraj Daugherty Work Phone: [facility] 10-12-2022 10:10-0400 Systolic blood pressure 116 mm[Hg] Dr. Neeraj Daugherty Work Phone: [facility] 09-26-2022 22:47-0500 Body mass index (BMI) [Ratio] 24.1 kg/m2 Dr. Neeraj Daugherty Work Phone: [facility] 08-30-2022 08:29-0500 Body mass index (BMI) [Ratio] 24.1 kg/m2 Dr. Neeraj Daugherty Work Phone: [facility] 08-04-2022 10:41-0500 Body height 175.[address] Neeraj Daugherty Work Phone: [facility] 08-04-2022 10:41-0500 Body mass index (BMI) [Ratio] 24.2 kg/m2 Dr. Neeraj Daugherty Work Phone: [facility] 2022 22:28-0500 Heart rate 89 /min Dr. Neeraj Daugherty Work Phone: [facility] 2022 22:28-0500 Respiratory rate 15 /min Dr. Neeraj Daugherty Work Phone: [facility] 2022 22:28-0500 SaO2% (BldA) [Mass fraction] 97 % Dr. Neeraj Daugherty Work Phone: [facility] 2022 22:00-0500 Diastolic blood pressure 97 mm[Hg] Dr. Neeraj Daugherty Work Phone: [facility] 2022 22:00-0500 Systolic blood pressure 118 mm[Hg] Dr. Neeraj Daugherty Work Phone: [facility] 2022 18:14-0500 Body height 175.[address] Neeraj Daugherty Work Phone: [facility] Work Phone: 2022 18:14-0500 Body mass index (BMI) [Ratio] 24.3 kg/m2 Dr. Neeraj Daugherty Work Phone: [phone] [place] [address] 2022 18:14-0500 Body temperature 98.6 [degF] Dr. Neeraj Daugherty Work Phone: [facility] 2022 18:14-0500 Body weight 74.[address] Neeraj Daugherty Work Phone: [facility] 07-30-2022 05:23-0500 Body mass index (BMI) [Ratio] 24.1 kg/m2 Dr. Neeraj Daugherty Work Phone: [phone] [place] [address] 07-12-2022 07:53-0500 Body mass index (BMI) [Ratio] 23.6 kg/m2 Dr. Neeraj Daugherty Work Phone: [phone] [place] [address] 07-12-2022 07:53-0500 Body weight 72.[address] Neeraj Daugherty Work Phone: [phone] [place] [address] 07-12-2022 07:53-0500 Diastolic blood pressure 80 mm[Hg] Dr. Neeraj Daugherty Work Phone: [facility] 07-12-2022 07:53-0500 Heart rate 71 /min Dr. Neeraj Daugherty Work Phone: [facility] 07-12-2022 07:53-0500 SaO2% (BldA) [Mass fraction] 96 % Dr. Neeraj Daugherty Work Phone: [facility] 07-12-2022 07:53-0500 Systolic blood pressure 130 mm[Hg] Dr. Neeraj Daugherty Work Phone: [facility] 06-29-2022 00:49-0500 Body mass index (BMI) [Ratio] 24.1 kg/m2 Dr. Neeraj Daugherty Work Phone: [facility] 06-28-2022 12:16-0500 Body temperature 97.5 [degF] Dr. Neeraj Daugherty Work Phone: [facility] 06-28-2022 12:16-0500 Diastolic blood pressure 74 mm[Hg] Dr. Neeraj Daugherty Work Phone: [facility] 06-28-2022 12:16-0500 Heart rate 83 /min Dr. Neeraj Daugherty Work Phone: [facility] 06-28-2022 12:16-0500 Respiratory rate 18 /min Dr. Neeraj Daugherty Work Phone: [facility] 06-28-2022 12:16-0500 SaO2% (BldA) [Mass fraction] 98 % Dr. Neeraj Daugherty Work Phone: [facility] 06-28-2022 12:16-0500 Systolic blood pressure 105 mm[Hg] Dr. Neeraj Daugherty Work Phone: [facility] 06-28-2022 10:47-0500 Body height 175.[address] Neeraj Daugherty Work Phone: [facility] Work Phone: 06-28-2022 10:47-0500 Body mass index (BMI) [Ratio] 23.8 kg/m2 Dr. Neeraj Daugherty Work Phone: [facility] 06-28-2022 10:47-0500 Body weight [address] Neeraj Daugherty Work Phone: [facility] 06-14-2022 11:11-0500 Body mass index (BMI) [Ratio] 25.2 kg/m2 Dr. Neeraj Daugherty Work Phone: [facility] 06-14-2022 11:11-0500 Body temperature 96.2 [degF] Dr. Neeraj Daugherty Work Phone: [facility] 06-14-2022 11:11-0500 Body weight 73.[address] Neeraj Daugherty Work Phone: [facility] 06-14-2022 11:11-0500 Diastolic blood pressure 74 mm[Hg] Dr. Neeraj Daugherty Work Phone: [facility] 06-14-2022 11:11-0500 Heart rate 62 /min Dr. Neeraj Daugherty Work Phone: [facility] 06-14-2022 11:11-0500 Respiratory rate 18 /min Dr. Neeraj Daugherty Work Phone: [facility] 06-14-2022 11:11-0500 SaO2% (BldA) [Mass fraction] 97 % Dr. Neeraj Daugherty Work Phone: [facility] 06-14-2022 11:11-0500 Systolic blood pressure 119 mm[Hg] Dr. Neeraj Daugherty Work Phone: [facility] 05-30-2022 10:14-0400 Body mass index (BMI) [Ratio] 24.1 kg/m2 Dr. Neeraj Daugherty Work Phone: [facility] 05-02-2022 08:26-0400 Body height 170.[address] Neeraj Daugherty Work Phone: [facility] Work Phone: 05-02-2022 08:26-0400 Body mass index (BMI) [Ratio] 26.2 kg/m2 Dr. Neeraj Daugherty Work Phone: [facility] Work Phone: 05-02-2022 08:26-0400 Body weight 75.[address] Neeraj Daugherty Work Phone: [facility] Work Phone: 05-02-2022 08:26-0400 Diastolic blood pressure 76 mm[Hg] Dr. Neeraj Daugherty Work Phone: [facility] Work Phone: 05-02-2022 08:26-0400 Heart rate 82 /min Dr. Neeraj Daugherty Work Phone: [facility] Work Phone: 05-02-2022 08:26-0400 SaO2% (BldA) [Mass fraction] 96 % Dr. Neeraj Daugherty Work Phone: [facility] Work Phone: 05-02-2022 08:26-0400 Systolic blood pressure 123 mm[Hg] Dr. Neeraj Daugherty Work Phone: [facility] Work Phone: 04-28-2022 23:28-0400 Body mass index (BMI) [Ratio] 24.1 kg/m2 Dr. Neeraj Daugherty Work Phone: [facility] Work Phone: 03-30-2022 00:20-0400 Body mass index (BMI) [Ratio] 24.1 kg/m2 Dr. Neeraj Daugherty Work Phone: [facility] Work Phone: 02-26-2022 03:00-0400 Body mass index (BMI) [Ratio] 24.1 kg/m2 Dr. Neeraj Daugherty Work Phone: [facility] Work Phone: 01-27-2022 07:43-0400 Body mass index (BMI) [Ratio] 24.1 kg/m2 Dr. Neeraj Daugherty Work Phone: [facility] Work Phone: 01-19-2022 08:22-0400 Body temperature 98 [degF] Dr. Neeraj Daugherty Work Phone: [facility] Work Phone: 01-19-2022 08:22-0400 Diastolic blood pressure 80 mm[Hg] Dr. Neeraj Daugherty Work Phone: [facility] Work Phone: 01-19-2022 08:22-0400 Heart rate 68 /min Dr. Neeraj Daugherty Work Phone: [facility] Work Phone: 01-19-2022 08:22-0400 Respiratory rate 16 /min Dr. Neeraj Daugherty Work Phone: [facility] Work Phone: 01-19-2022 08:22-0400 SaO2% (BldA) [Mass fraction] 99 % Dr. Neeraj Daugherty Work Phone: [facility] Work Phone: 01-19-2022 08:22-0400 Systolic blood pressure 140 mm[Hg] Dr. Neeraj Daugherty Work Phone: [facility] Work Phone: 12-27-2021 21:24-0400 Body mass index (BMI) [Ratio] 24.1 kg/m2 Dr. Neeraj Daugherty Work Phone: [facility] Work Phone: 11-27-2021 04:42-0400 Body mass index (BMI) [Ratio] 24.1 kg/m2 Dr. Neeraj Daugherty Work Phone: [facility] Work Phone: 11-03-2021 14:17-0400 Diastolic blood pressure 67 mm[Hg] Dr. Neeraj Daugherty Work Phone: [facility] Work Phone: 11-03-2021 14:17-0400 Heart rate 72 /min Dr. Neeraj Daugherty Work Phone: [facility] Work Phone: 11-03-2021 14:17-0400 Systolic blood pressure 122 mm[Hg] Dr. Neeraj Daugherty Work Phone: [facility] Work Phone: 11-03-2021 13:38-0400 Body height 170.[address] Neeraj Daugherty Work Phone: [facility] Work Phone: 11-03-2021 13:38-0400 Body mass index (BMI) [Ratio] 25.5 kg/m2 Dr. Neeraj Daugherty Work Phone: [facility] Work Phone: 11-03-2021 13:38-0400 Body temperature 96.9 [degF] Dr. Neeraj Daugherty Work Phone: [facility] Work Phone: 11-03-2021 13:38-0400 Body weight 73.[address] Neeraj Daugherty Work Phone: [facility] Work Phone: 11-03-2021 13:38-0400 Respiratory rate 14 /min Dr. Neeraj Daugherty Work Phone: [facility] Work Phone: 11-03-2021 13:38-0400 SaO2% (BldA) [Mass fraction] 98 % Dr. Neeraj Daugherty Work Phone: [facility] Work Phone: 10-28-2021 03:32-0400 Body mass index (BMI) [Ratio] 24.1 kg/m2 Dr. Neeraj Daugherty Work Phone: [facility] Work Phone: 10-27-2021 09:30-0400 Body mass index (BMI) [Ratio] 24.2 kg/m2 Dr. Neeraj Daugherty Work Phone: [facility] Work Phone: 10-27-2021 09:30-0400 Body weight 71.[address] Neeraj Daugherty Work Phone: [facility] Work Phone: 10-27-2021 09:30-0400 Diastolic blood pressure 72 mm[Hg] Dr. Neeraj Daugherty Work Phone: [facility] Work Phone: 10-27-2021 09:30-0400 Heart rate 71 /min Dr. Neeraj Daugherty Work Phone: [facility] Work Phone: 10-27-2021 09:30-0400 Respiratory rate 18 /min Dr. Neeraj Daugherty Work Phone: [facility] Work Phone: 10-27-2021 09:30-0400 Systolic blood pressure 109 mm[Hg] Dr. Neeraj Daugherty Work Phone: [facility] Work Phone: 10-27-2021 09:30-0400 Body height 171.[address] Neeraj Daugherty Work Phone: [facility] Work Phone: 10-27-2021 09:30-0400 Body mass index (BMI) [Ratio] 24.2 kg/m2 Dr. Neeraj Daugherty Work Phone: [facility] Work Phone: 10-27-2021 09:30-0400 Body weight 71.[address] Neeraj Daugherty Work Phone: [facility] Work Phone: 10-27-2021 09:30-0400 Diastolic blood pressure 72 mm[Hg] Dr. Neeraj Daugherty Work Phone: [facility] Work Phone: 10-27-2021 09:30-0400 Heart rate 71 /min Dr. Neeraj Daugherty Work Phone: [facility] Work Phone: 10-27-2021 09:30-0400 Respiratory rate 18 /min Dr. Neeraj Daugherty Work Phone: [facility] Work Phone: 10-27-2021 09:30-0400 Systolic blood pressure 109 mm[Hg] Dr. Neeraj Daugherty Work Phone: [facility] Work Phone: 10-11-2021 10:39-0400 Body mass index (BMI) [Ratio] 24.8 kg/m2 Dr. Neeraj Daugherty Work Phone: [facility] Work Phone: 10-11-2021 10:39-0400 Body temperature 97.2 [degF] Dr. Neeraj Daugherty Work Phone: [facility] Work Phone: 10-11-2021 10:39-0400 Body weight 73.[address] Neeraj Daugherty Work Phone: [facility] Work Phone: 10-11-2021 10:39-0400 Diastolic blood pressure 80 mm[Hg] Dr. Neeraj Daugherty Work Phone: [facility] Work Phone: 10-11-2021 10:39-0400 Heart rate 64 /min Dr. Neeraj Daugherty Work Phone: [facility] Work Phone: 10-11-2021 10:39-0400 Respiratory rate 16 /min Dr. Neeraj Daugherty Work Phone: [facility] Work Phone: 10-11-2021 10:39-0400 SaO2% (BldA) [Mass fraction] 98 % Dr. Neeraj Daugherty Work Phone: [facility] Work Phone: 10-11-2021 10:39-0400 Systolic blood pressure 131 mm[Hg] Dr. Neeraj Daugherty Work Phone: [facility] Work Phone: 10-11-2021 10:39-0400 Body mass index (BMI) [Ratio] 24.8 kg/m2 Dr. Neeraj Daugherty Work Phone: [facility] Work Phone: 10-11-2021 10:39-0400 Body temperature 97.2 [degF] Dr. Neeraj Daugherty Work Phone: [facility] Work Phone: 10-11-2021 10:39-0400 Body weight 73.[address] Neeraj Daugherty Work Phone: [facility] Work Phone: 10-11-2021 10:39-0400 Diastolic blood pressure 80 mm[Hg] Dr. Neeraj Daugherty Work Phone: [facility] Work Phone: 10-11-2021 10:39-0400 Heart rate 64 /min Dr. Neeraj Daugherty Work Phone: [facility] Work Phone: 10-11-2021 10:39-0400 Respiratory rate 16 /min Dr. Neeraj Daugherty Work Phone: [facility] Work Phone: 10-11-2021 10:39-0400 SaO2% (BldA) [Mass fraction] 98 % Dr. Neeraj Daugherty Work Phone: [facility] Work Phone: 10-11-2021 10:39-0400 Systolic blood pressure 131 mm[Hg] Dr. Neeraj Daugherty Work Phone: [facility] Work Phone: 10-10-2021 09:53-0400 Body mass index (BMI) [Ratio] 25.2 kg/m2 Dr. Neeraj Daugherty Work Phone: [facility] Work Phone: 10-10-2021 09:53-0400 Body temperature 96 [degF] Dr. Neeraj Daugherty Work Phone: [facility] Work Phone: 10-10-2021 09:53-0400 Body weight 74.[address] Neeraj Daugherty Work Phone: [facility] Work Phone: 10-10-2021 09:53-0400 Diastolic blood pressure 88 mm[Hg] Dr. Neeraj Daugherty Work Phone: [facility] Work Phone: 10-10-2021 09:53-0400 Heart rate 51 /min Dr. Neeraj Daugherty Work Phone: [facility] Work Phone: 10-10-2021 09:53-0400 Respiratory rate 18 /min Dr. Neeraj Daugherty Work Phone: [facility] Work Phone: 10-10-2021 09:53-0400 SaO2% (BldA) [Mass fraction] 98 % Dr. Neeraj Daugherty Work Phone: [facility] Work Phone: 10-10-2021 09:53-0400 Systolic blood pressure 124 mm[Hg] Dr. Neeraj Daugherty Work Phone: [facility] Work Phone: 10-10-2021 09:53-0400 Body mass index (BMI) [Ratio] 25.2 kg/m2 Dr. Neeraj Daugherty Work Phone: [facility] Work Phone: 10-10-2021 09:53-0400 Body temperature 96 [degF] Dr. Neeraj Daugherty Work Phone: [facility] Work Phone: 10-10-2021 09:53-0400 Body weight 74.[address] Neeraj Daugherty Work Phone: [facility] Work Phone: 10-10-2021 09:53-0400 Diastolic blood pressure 88 mm[Hg] Dr. Neeraj Daugherty Work Phone: [facility] Work Phone: 10-10-2021 09:53-0400 Heart rate 51 /min Dr. Neeraj Daugherty Work Phone: [facility] Work Phone: 10-10-2021 09:53-0400 Respiratory rate 18 /min Dr. Neeraj Daugherty Work Phone: [facility] Work Phone: 10-10-2021 09:53-0400 SaO2% (BldA) [Mass fraction] 98 % Dr. Neeraj Daugherty Work Phone: [facility] Work Phone: 10-10-2021 09:53-0400 Systolic blood pressure 124 mm[Hg] Dr. Neeraj Daugherty Work Phone: [facility] Work Phone: 09-27-2021 10:27-0500 Body mass index (BMI) [Ratio] 24.1 kg/m2 Dr. Neeraj Daugherty Work Phone: [facility] Work Phone: 09-27-2021 09:27-0500 Body mass index (BMI) [Ratio] 24.1 kg/m2 Dr. Neeraj Daugherty Work Phone: [facility] Work Phone: 09-15-2021 13:40-0500 Body mass index (BMI) [Ratio] 25 kg/m2 Dr. Neeraj Daugherty Work Phone: [facility] Work Phone: 09-15-2021 13:40-0500 Body temperature 96 [degF] Dr. Neeraj Daugherty Work Phone: [facility] Work Phone: 09-15-2021 13:40-0500 Body weight 72.[address] Neeraj Daugherty Work Phone: [facility] Work Phone: 09-15-2021 13:40-0500 Diastolic blood pressure 92 mm[Hg] Dr. Neeraj Daugherty Work Phone: [facility] Work Phone: 09-15-2021 13:40-0500 Heart rate 87 /min Dr. Neeraj Daugherty Work Phone: [facility] Work Phone: 09-15-2021 13:40-0500 Respiratory rate 16 /min Dr. Neeraj Daugherty Work Phone: [facility] Work Phone: 09-15-2021 13:40-0500 SaO2% (BldA) [Mass fraction] 92 % Dr. Neeraj Daugherty Work Phone: [facility] Work Phone: 09-15-2021 13:40-0500 Systolic blood pressure 146 mm[Hg] Dr. Neeraj Daugherty Work Phone: [facility] Work Phone: 08-30-2021 01:19-0500 Body mass index (BMI) [Ratio] 24.1 kg/m2 Dr. Neeraj Daugherty Work Phone: [facility] Work Phone: 08-01-2021 01:31-0500 Body mass index (BMI) [Ratio] 24.1 kg/m2 Dr. Neeraj Daugherty Work Phone: [facility] Work Phone: 07-04-2021 08:40-0500 Body mass index (BMI) [Ratio] 23.9 kg/m2 Dr. Neeraj Daugherty Work Phone: [facility] Work Phone: 07-04-2021 08:40-0500 Body temperature 97.4 [degF] Dr. Neeraj Daugherty Work Phone: [facility] Work Phone: 07-04-2021 08:40-0500 Body weight 73.[address] Neeraj Daugherty Work Phone: [facility] Work Phone: 07-04-2021 08:40-0500 Diastolic blood pressure 78 mm[Hg] Dr. Neeraj Daugherty Work Phone: [facility] Work Phone: 07-04-2021 08:40-0500 Heart rate 65 /min Dr. Neeraj Daugherty Work Phone: [facility] Work Phone: 07-04-2021 08:40-0500 Respiratory rate 16 /min Dr. Neeraj Daugherty Work Phone: [facility] Work Phone: 07-04-2021 08:40-0500 SaO2% (BldA) [Mass fraction] 96 % Dr. Neeraj Daugherty Work Phone: [facility] Work Phone: 07-04-2021 08:40-0500 Systolic blood pressure 122 mm[Hg] Dr. Neeraj Daugherty Work Phone: [facility] Work Phone: 06-29-2021 02:46-0500 Body mass index (BMI) [Ratio] 24.1 kg/m2 Dr. Neeraj Daugherty Work Phone: [facility] Work Phone: Encounters Encounter Date Encounter Type Care Provider Facility Start: 01-02-2025 ambulatory Adriel Khan Facility:[facility] Start: 12-30-2024 End: 12-30-2024 ambulatory Pablo Kylee Facility:[facility] Start: 12-29-2024 End: 12-29-[address] Lynn Medina MD -[facility] Work Phone: Start: 12-29-2024 End: 12-29-[address] Neeraj Daugherty MD [facility] Work Phone: Start: 12-23-2024 End: 12-23-[address] Neeraj Daugherty MD [facility] Work Phone: Start: 12-23-2024 End: 12-23-2024 Patient encounter procedure Lawson Miller PA -Pulmonary Services/Neurology Work Phone: Start: 12-23-2024 End: 12-23-2024 ambulatory Lawson Miller Facility:[facility] Start: 12-16-2024 End: 12-16-[address] Neeraj Daugherty MD [facility] Work Phone: Start: 12-16-2024 End: 12-16-2024 Discharged Recurring Franky Lewis Nilesh CRYSTALLOGRAPHY TEACHER-C -Laboratory [facility] Work Phone: Start: 12-16-2024 Registered Recurring Franky Lewis Nilesh CRYSTALLOGRAPHY TEACHER- C -Laboratory [place] Work Phone: Start: 12-09-2024 End: 12-09-[address] Rodríguez Portillo MD -[facility] Work Phone: Start: 12-09-2024 End: 12-09-2024 ambulatory Adriel Khan MD Work Phone: [facility] Work Phone: Start: 12-09-2024 End: 12-09-2024 Patient encounter procedure Lawson CANTRELL [facility] Work Phone: Start: 12-09-2024 End: 12-09-2024 ambulatory Adriel Khan MD Work Phone: [facility] Work Phone: Start: 12-09-2024 Registered Recurring Franky Lewis Nilesh CRYSTALLOGRAPHY TEACHER- C -Laboratory, [place] Work Phone: Start: 12-04-2024 End: 12-04-2024 Office outpatient visit 25 minutes Dwayne Wells MD Work Phone: [facility] Cardiology [place] Comment on above: Persistent atrial fi brillation (HCC) (Primary Dx); Atypical atrial flutter (HCC); [facility] current use of antiarrhythmic drug; Encounter for monitoring dofetilide therapy; At risk for stroke; Anticoagulant long-term use; Paroxysmal supraventricular tachycardia (HCC); Palpitations; First degree atrioventricular block; Obstructive sleep apnea; Vergara's esophagus with dysplasia; Pulmonary emphysema, unspecified emphysema type (HCC) Start: 12-04-2024 End: 12-04-2024 ambulatory DWAYNE WELLS Facility:[facility] Start: 11-25-2024 End: 11-25-2024 Emergency department patient visit Dr. Gagandeep Schwiger DO -Emergency Department Work Phone: Start: 11-24-2024 End: 11-26-2024 Discharged Recurring Franky Joshua Nilesh CRYSTALLOGRAPHY TEACHER-C -Laboratory, [place] [facility] Work Phone: Start: 11-24-2024 End: 11-26-2024 ambulatory Franky Galloway CRYSTALLOGRAPHY TEACHER Facility:[facility] Start: 10-15-2024 End: 10-15-2024 Patient encounter procedure CRYSTALLOGRAPHY TEACHER Gladys Smith [facility] Work Phone: Start: 10-15-2024 End: 10-15-2024 ambulatory Adriel Khan Facility:[facility] Start: 10-13-2024 End: 10-13-2024 ambulatory Adriel Khan MD Work Phone: [facility] Work Phone: Start: 10-13-2024 End: 10-13-2024 Discharged Recurring Franky Lewis Roof CRYSTALLOGRAPHY TEACHER-C -Laboratory, [place] [facility] Work Phone: Start: 09-17-2024 End: 09-26-2024 Discharged Recurring Franky Lewis Roof CRYSTALLOGRAPHY TEACHER-C -Laboratory, [place] [facility] Work Phone: Start: 09-17-2024 End: 09-26-2024 ambulatory Franky Galloway CRYSTALLOGRAPHY TEACHER Facility:[facility] Start: 08-26-2024 End: 08-26-2024 Patient encounter procedure Angelita Macedo CRYSTALLOGRAPHY TEACHER-C -Sleep Lab Work Phone: Start: 08-26-2024 End: 08-26-2024 ambulatory Franky Lewis Roof CRYSTALLOGRAPHY TEACHER Facility:[facility] Start: 08-26-2024 End: 08-26-2024 Discharged Recurring Franky Joshua Roof CRYSTALLOGRAPHY TEACHER-C -Laboratory, [place] [facility] Work Phone: Start: 08-26-2024 End: 08-26-2024 ambulatory Adriel Glendy Facility:[facility] Start: 08-18-2024 End: 08-18-2024 Patient encounter procedure Dionna Self [place] [facility] Work Phone: Start: 08-18-2024 End: 08-18-2024 ambulatory Chalon Glendy Facility:[facility] Start: 08-05-2024 End: 08-05-2024 Patient encounter procedure Angelita Macedo CRYSTALLOGRAPHY TEACHER-C -Sleep Lab Work Phone: Start: 08-05-2024 End: 08-05-2024 ambulatory Chalon Glendy Facility:[facility] Start: 07-17-2024 ambulatory Pablo Pichardo Facility :[facility] Start: 07-17-2024 Non-patient / Non-visit Pablo Skelton nd DO -[facility] Start: 07-17-2024 End: 07-17-2024 Admission to same day surgery center Pablo Kylee DO -Endoscopy Work Phone: Start: 07-17-2024 End: 07-17-2024 ambulatory Pablo [place] Facility:[facility] Start: 07-16-2024 End: 07-16-2024 Patient encounter procedure Angelita Macedo CRYSTALLOGRAPHY TEACHER-C -[facility] Work Phone: Start: 07-16-2024 End: 07-16-2024 [facility] Start: 07-09-2024 End: 07-09-2024 ambulatory Franky Galloway CRYSTALLOGRAPHY TEACHER Facility:[facility] Start: 07-09-2024 End: 07-09-2024 Discharged Recurring Franky Galloway CRYSTALLOGRAPHY TEACHER-C -Laboratory, [place] [facility] Work Phone: Start: 07-03-2024 ambulatory [facility] Facility:[facility] Start: 07-03-2024 Non-patient / Non-visit Dr. Feliz Of marguerite REIS -[facility] Work Phone: Start: 07-03-2024 End: 07-03-2024 Patient encounter procedure Dionna Self PA -Pulmonary Services/Neurology Work Phone: Start: 07-03-2024 End: 07-03-2024 ambulatory [facility] Facility:[facility] Start: 07-01-2024 End: 07-01-2024 Patient encounter procedure Pablo Pichardo DO -[facility] Work Phone: Start: 07-01-2024 End: 07-01-2024 ambulatory Pablo Kylee Facility:[facility] Start: 06-09-2024 ambulatory Chalon Glendy [facility] Start: 06-06-2024 End: 06-06-2024 ambulatory Chalon Glendy Facility:[facility] Start: 06-03-2024 End: 06-03-2024 ambulatory Rodríguez Portillo Facility:[facility] Start: 06-02-2024 End: 06-02-2024 ambulatory Chalon Glendy Facility:[facility] Start: 05-30-2024 ambulatory Chalon Glendy Facility:[facility] Start: 05-30-2024 End: 05-30-2024 ambulatory Chalon Glendy Facility:[facility] Start: 05-30-2024 End: 05-30-2024 ambulatory Pablo Pichardo Facility:[facility] Start: 05-30-2024 End: 06-28-2024 ambulatory Franky H Roof CRYSTALLOGRAPHY TEACHER [facility] [place] Start: 05-21-2024 End: 05-21-2024 Emergency department patient visit Chalon Glendy Facility:[facility] [place] Start: 05-15-2024 End: 05-15-2024 ambulatory Jess Felicia Koram [facility] Start: 05-10-2024 ambulatory Dionicio Campbell [facility] Start: 05-10-2024 End: 05-16-2024 Evaluation and management of inpatient Jess Felicia Koram Facility:[facility] [place] Start: 05-08-2024 End: 05-08-2024 ambulatory Franky H Roof CRYSTALLOGRAPHY TEACHER Facility:[facility] [place] Start: 04-29-2024 End: 04-29-2024 ambulatory Chalon Glendy [facility] Start: 04-28-2024 End: 04-28-2024 Patient encounter procedure [facility] Provider [facility] Department Start: 04-28-2024 End: 04-28-2024 ambulatory Franky H Roof CRYSTALLOGRAPHY TEACHER Facility:[facility] [place] Start: 04-24-2024 End: 04-24-2024 ambulatory Franky H Roof CRYSTALLOGRAPHY TEACHER Facility:[facility] Start: 04-20-2024 ambulatory Dionicio Johnathon Freitass Facility:[facility] Start: 04-20-2024 End: 04-23-2024 Evaluation and management of inpatient Dionicio Freitass Facility:[facility] [place] Start: 04-15-2024 End: 04-15-2024 Emergency department patient visit Chalon Glendy Facility:[facility] [place] Start: 04-07-2024 End: 04-07-2024 ambulatory Chalon Glendy [facility] Start: 04-07-2024 ambulatory Chalon Glendy [facility] Start: 04-07-2024 End: 04-09-2024 Evaluation and management of inpatient Chalon Glendy Facility:[facility] [place] Start: 04-02-2024 ambulatory Chalon Glendy [facility] Start: 04-02-2024 End: 04-02-2024 ambulatory Chalon Glendy Facility:[facility] [place] Start: 03-24-2024 End: 03-24-2024 ambulatory Franky H Roof CRYSTALLOGRAPHY TEACHER Facility:[facility] [place] Start: 03-04-2024 End: 03-04-2024 ambulatory Chalon Glendy Facility:[facility] [place] Start: 02-28-2024 End: 02-28-2024 ambulatory Jahaira Cerna [facility] Start: 02-18-2024 End: 02-27-2024 ambulatory Franky H Nilesh CRYSTALLOGRAPHY TEACHER Facility:[facility] [place] Start: 01-15-2024 End: 01-15-2024 ambulatory Chalon Glendy [facility] Start: 01-14-2024 End: 01-14-2024 ambulatory Franky H Roof CRYSTALLOGRAPHY TEACHER Facility:[facility] [place] Start: 12-07-2023 Telephone encounter Dawyne Wells MD Work Phone: [facility] Cardiology [place] Comment on above: Results Start: 12-06-2023 End: 12-06-2023 Patient encounter procedure Dwayne Wells MD Work Phone: [facility] Cardiology [place] Comment on above: Persistent atrial fi brillation (HCC) (Primary Dx); Atrial flutter, unspecified type (HCC); [facility]PC current use of antiarrhythmic drug; Encounter for monitoring dofetilide therapy; At risk for stroke; Anticoagulant long-term use; First degree atrioventricular block; Paroxysmal supraventricular tachycardia (HCC); Palpitations Start: 11-30-2023 End: 11-30-2023 ambulatory DO Jahaira Cerna Work Phone: [facility] [place] Work Phone: Start: 11-30-2023 End: 11-30-2023 Patient encounter procedure DO Jahaira Hernandezer Work Phone: [facility] [place]Medical Out Work Phone: Start: 11-20-2023 Non-patient / Non-visit DO Edmundo Humphriesnger Work Phone: [facility] Start: 11-20-2023 End: 11-20-2023 Admission to same day surgery center DO Jahaira Humphriesnger Work Phone: [facility] [place]-Endoscopy Work Phone: Start: 11-20-2023 End: 11-20-2023 ambulatory DO Jahaira Hernandezer Work Phone: [facility] [place] Work Phone: Start: 11-15-2023 End: 11-27-2023 ambulatory DO Jahaira M Eryn Work Phone: [facility] [place] Work Phone: Start: 11-15-2023 End: 11-27-2023 Discharged Recurring DO Jahaira Humphriesnger Work Phone: [facility] [place]-Laboratory Work Phone: Start: 11-15-2023 Registered Recurring DO Maribel Humphriesnger Work Phone: [facility] [place]Laboratory Work Phone: Start: 10-16-2023 Non-patient / Non-visit DO Edmundo Humphriesnger Work Phone: [facility] Start: 10-16-2023 End: 10-16-2023 Admission to same day surgery center DO Jahaira Humphriesnger Work Phone: [facility] [place]-Endoscopy Work Phone: Start: 10-16-2023 End: 10-16-2023 ambulatory DO Jahaira M Eryn Work Phone: [facility] [place] Work Phone: Start: 10-15-2023 End: 10-28-2023 ambulatory DO Jahaira M Eryn Work Phone: [facility] [place] Work Phone: Start: 10-15-2023 End: 10-28-2023 Discharged Recurring DO Jahaira Eryn Work Phone: [facility] [place]-Laboratory Work Phone: Start: 10-15-2023 Registered Recurring DO Maribel n Eryn Work Phone: [facility] [place]Laboratory Work Phone: Start: 10-12-2023 End: 10-12-2023 Patient encounter procedure DO Jahaira Humphriesnger Work Phone: [facility] Work Phone: Start: 09-18-2023 Non-patient / Non-visit DO Edmundo manningn Eryn Work Phone: [facility] Start: 09-18-2023 End: 09-18-2023 Admission to same day surgery center DO Jahaira Eryn Work Phone: [facility] [place]-Endoscopy Work Phone: Start: 09-18-2023 End: 09-18-2023 ambulatory DO Jahaira M Eryn Work Phone: [facility] [place] Work Phone: Start: 08-29-2023 End: 08-29-2023 Discharged Recurring DO Jahaira Eryn Work Phone: [facility] [place]Laboratory Work Phone: Start: 08-15-2023 Non-patient / Non-visit DO Kri stin Eryn Work Phone: [facility] Start: 08-15-2023 End: 08-15-2023 Admission to same day surgery center DO Jahaira Eryn Work Phone: [facility] [place]-Endoscopy Work Phone: Start: 08-15-2023 End: 08-15-2023 ambulatory DO Jahaira Cerna Work Phone: [facility] [place] Work Phone: Start: 08-07-2023 End: 08-07-2023 Emergency department patient visit DO Jahaira Cerna Work Phone: [facility] [place]-Emergency Department Work Phone: Start: 07-24-2023 End: 07-24-2023 Patient encounter procedure DO Jahaira Cerna Work Phone: [facility] Gastroenterology Work Phone: Start: 07-24-2023 End: 07-29-2023 ambulatory DO Jahaira Cerna Work Phone: [facility] [place] Work Phone: Start: 07-24-2023 End: 07-29-2023 Discharged Recurring DO Jahaira Cerna Work Phone: [facility] [place]-Laboratory Work Phone: Start: 07-10-2023 Non-patient / Non-visit DO Edmundo Cerna Work Phone: [facility] Start: 07-10-2023 End: 07-10-2023 Admission to same day surgery center DO Jahaira Cerna Work Phone: [facility] [place]-Endoscopy Work Phone: Start: 07-10-2023 End: 07-10-2023 ambulatory DO Jahaira Cerna Work Phone: [facility] [place] Work Phone: Start: 06-29-2023 Registered Recurring DO Maribel Cerna Work Phone: [facility] [place]Laboratory Work Phone: Start: 06-18-2023 End: 06-18-2023 Patient encounter procedure DO [facility]a [facility]erna [facility] [place] Work Phone: Start: 06-01-2023 End: 06-01-2023 ambulatory [facility] Work Phone: Start: 06-01-2023 End: 06-01-2023 Patient encounter procedure [facility] [place] Work Phone: Start: 05-29-2023 End: 05-29-2023 ambulatory [facility] [place] Work Phone: Start: 05-29-2023 End: 05-29-2023 [facility] Start: 05-02-2023 End: 05-02-2023 Patient encounter procedure [facility] [place] [place] Work Phone: Start: 04-17-2023 End: 04-17-[address] Neeraj Daugherty [facility] [place] Work Phone: Start: 04-17-2023 End: 04-17-[address] [facility] Start: 03-21-2023 End: 03-21-[address] Neeraj Daugherty Work Phone: [facility] Work Phone: Start: 03-21-2023 End: 03-21-[address] [facility]aj [facility]augherty [facility] Start: 02-20-2023 End: 02-26-[address] Neeraj Daugherty Work Phone: [facility] [place] Work Phone: Start: 02-20-2023 End: 02-26-[address] [facility]aj [facility]augherty [facility] Start: 01-24-2023 End: 01-24-[address] Neeraj Daugherty Work Phone: [facility] Work Phone: Start: 01-24-2023 End: 01-24-[address] [facility]aj [facility]augherty [facility] Start: 01-18-2023 End: 01-18-[address] Neeraj Daugherty Work Phone: [facility] Work Phone: Start: 01-18-2023 End: 01-18-[address] Neeraj Daugherty Work Phone: [facility] Start: 01-15-2023 End: 01-15-2023 Emergency department patient visit Dr. Neeraj Daugherty Work Phone: [facility] [place]-Emergency Department Start: 01-15-[address] [facility]augherty [facility] Start: 01-10-2023 End: 01-10-[address] Neeraj Daugherty Work Phone: [facility] Start: 12-14-2022 End: 12-14-[address] [facility]aj [facility]augherty [facility] Start: 12-11-2022 End: 12-11-[address] Neeraj Daugherty Work Phone: [facility] Work Phone: Start: 12-11-2022 End: 12-11-[address] [facility] Daugherty [facility] Start: 12-07-2022 End: 12-07-[address] Neeraj Daugherty Work Phone: [facility] Start: 12-05-2022 End: 12-05-2022 Patient encounter procedure Dwayne Wells MD Work Phone: [facility] Cardiology [place] Comment on above: Persistent atrial fi brillation (HCC) (Primary Dx); Atrial flutter, unspecified type (HCC); Paroxysmal supraventricular tachycardia (HCC); Palpitations; [facility]PC current use of antiarrhythmic drug; At risk for stroke; Anticoagulant long-term use Start: 11-30-2022 End: 11-30-[address] Neeraj Daugherty Work Phone: [facility] Work Phone: Start: 11-30-2022 End: 11-30-[address] Neeraj Daugherty Work Phone: [facility] [place]Medical Out Start: 11-28-2022 End: 11-28-[address] Neeraj Daugherty Work Phone: [facility] Start: 11-22-2022 End: 11-22-[address] Neeraj Daugherty Work Phone: [facility] [place] Work Phone: Start: 11-22-2022 End: 11-22-[address] Neeraj Daugherty Work Phone: [facility] [place]-Laboratory, Specimen Start: 11-22-2022 End: 11-22-[address] Neeraj Daugherty Work Phone: [facility] Start: 11-17-2022 End: 11-26-[address] Neeraj Daugherty Work Phone: [facility] [place] Work Phone: Start: 11-17-2022 End: 11-26-[address] Neeraj Daugherty Work Phone: [facility] [place]Labor[facility] Start: 11-15-2022 End: 11-15-[address] Neeraj Daugherty Work Phone: [facility] Start: 11-07-2022 End: 11-07-[address] Neeraj Daugherty Work Phone: [facility] [place] Start: 10-12-2022 End: 10-12-[address] Neeraj Daugherty Work Phone: [facility]ocr[facility] Start: 10-02-2022 End: 10-27-[address] Neeraj Daugherty Work Phone: [facility] [place] Work Phone: Start: 10-02-2022 End: 10-27-[address] Neeraj Daugherty Work Phone: [facility] [place] Start: 09-04-2022 End: 09-04-[address] Neeraj Daugherty Work Phone: [facility] [place] Work Phone: Start: 09-04-2022 End: 09-04-[address] [facility] Daugherty [facility] Start: 08-16-2022 End: 08-16-[address] [facility]aug[facility] Start: 08-04-2022 End: 08-04-[address] Neeraj Daugherty Work Phone: [facility] Start: 2022 End: 2022 Emergency department patient visit Dr. Neeraj Daugherty Work Phone: [facility] [place]Emergency Department Start: 07-26-2022 End: 07-26-[address] Neeraj Daugherty Work Phone: [facility] [place] Start: 07-12-2022 End: 07-12-[address] Neeraj Daugherty Work Phone: [facility] Start: 06-28-2022 Non-patient / Non-visit Dr. Javier Daugherty Work Phone: [facility] [place] Start: 06-28-2022 End: 06-28-2022 Admission to same day surgery center Dr. Neeraj Daugherty Work Phone: [facility] [place]-Endoscopy Start: 06-28-2022 End: 06-28-[address] Neeraj Daugherty Work Phone: [facility] [place] Work Phone: Start: 06-14-2022 End: 06-14-[address] Neeraj Daugherty Work Phone: [facility] [place] Medicine [facility] Start: 06-01-2022 End: 06-28-[address] Neeraj Daugherty Work Phone: [facility] Work Phone: Start: 06-01-2022 End: 06-28-[address] Neeraj Daugherty Work Phone: [facility] [place] Start: 06-01-[address] Neeraj Daugherty Work Phone: [facility] [place] Start: 05-15-2022 End: 05-15-[address] Neeraj Daugherty Work Phone: [facility] Work Phone: Start: 05-15-2022 End: 05-15-[address] Neeraj Daugherty Work Phone: [facility] [place] Start: 05-12-2022 End: 05-12-[address] Neeraj Daugherty Work Phone: [facility] Work Phone: Start: 05-12-2022 End: 05-12-[address] Neeraj Daugherty Work Phone: [facility] [place] Start: 05-12-[address] Neeraj Daugherty Work Phone: [facility] [place] Start: 05-02-2022 End: 05-02-[address] Neeraj Daugherty Work Phone: [facility] Start: 04-25-2022 End: 04-25-[address] Neeraj Daugherty Work Phone: [facility] Work Phone: Start: 04-25-2022 End: 04-25-[address] Ne[facility] Daugherty [facility] Start: 03-28-2022 End: 03-28-[address] Neeraj Daugherty [facility] Start: 01-31-2022 End: 02-26-[address] Neeraj Daugherty [facility] Start: 01-19-2022 End: 01-19-[address] Neeraj Daugherty Work Phone: [facility] [place] Start: 01-19-2022 End: 01-19-[address] Neeraj Daugherty [facility] Start: 12-19-2021 End: 12-19-[address] Neeraj Daugherty [facility] Start: 11-23-2021 End: 11-23-[address] Neeraj Daugherty [facility] Start: 11-03-2021 End: 11-03-[address] Neeraj Daugherty Work Phone: [facility] [place] Start: 10-27-2021 End: 10-27-[address] Neeraj Daugherty Work Phone: [facility] Start: 10-25-2021 End: 10-27-[address] Neeraj Daugherty [facility] Start: 10-17-2021 End: 10-17-[address] Neeraj Daugherty Work Phone: [facility] Start: 10-11-2021 End: 10-11-[address] Neeraj Daugherty [facility] Start: 10-10-2021 End: 10-10-[address] Neeraj Daugherty Work Phone: [facility] Start: 09-26-2021 End: 09-26-[address] Neeraj Daugherty [facility] Start: 09-15-2021 End: 09-15-[address] Neeraj Daugherty Work Phone: [facility] Start: 09-10-2021 End: 09-10-[address] Neeraj Daugherty Work Phone: [facility] [place] Scan, [facility] Start: 08-02-2021 End: 08-29-[address] Neeraj Daugherty [facility] Start: 07-20-2021 End: 07-30-[address] Ne[facility] Daugherty [facility] Start: 07-04-2021 End: 07-04-[address] Neer[facility] Daugherty [facility] Start: 11-29-2020 End: 11-29-2020 Telephone encounter Dwayne Wells MD Work Phone: [facility] Cardiology [place] Comment on above: Appointment Start: 03-11-2020 End: 03-11-2020 Patient encounter procedure External Provider [facility] Start: 03-11-2020 Results Only External Provider Exter nal-NonCCF Procedures Date Procedure Procedure Detail Performing Clinician Start: 12-16-2024 Vitamin D, 25-hydroxy measurement Dr. Javier Daugherty MD Comment on above: Vitamin D StatusDeficiency: <20 ng/mL (5 0nmol/L)Insufficiency: 20-30 ng/mL (50-75 nmol/L)Sufficiency: 30-100 ng/mL (75-250 nmol/L)Toxicity: >100 ng/mL (>250 nmol/L) Start: 12-09-2024 Evaluation of diagnostic study results Dr. Neeraj Daugherty MD Start: 12-04-2024 Ecg routine ecg w/least 12 lds w/i&r Dwayne Wells MD Work Phone: Start: 11-25-2024 Plain chest X-ray Adriel Khan MD Work Phone: Start: 11-25-2024 D-dimer assay, quantitative Adriel Khan MD Work Phone: Comment on above: NORMAL D-Dimer level (<0.50) indicates n o DVT or PE. Start: 11-25-2024 Estimated creatinine clearance Adriel powell MD Work Phone: Start: 12-06-2023 Ecg routine ecg w/least 12 lds w/i&r Dwayne Wells MD Work Phone: Start: 11-20-2023 Esophagogastroduodenoscopy DO Jahaira patton Work Phone: Start: 10-16-2023 EGD Radio Frequency Ablation RFA (Not Applicable) DO Jahaira Cerna Work Phone: Start: 09-18-2023 EGD Radio Frequency Ablation RFA (Not Applicable) DO Jahaira Cerna Work Phone: Start: 09-18-2023 Esophagogastroduodenoscopy DO Jahaira patton Work Phone: Start: 08-15-2023 Esophagogastroduodenoscopy DO Jahaira patton Work Phone: Start: 08-07-2023 X-ray of both feet DO Jahaira Cerna Work Phone: Start: 07-10-2023 Esophagogastroduodenoscopy DO Jahairaoliver Humphries amiracolby Work Phone: Start: 01-18-2023 Computed tomography of abdomen and pelvis with contrast Dr. Neeraj Daugherty Work Phone: Start: 12-07-2022 CT of chest without contrast Dr. Neeraj de los santos Work Phone: Start: 12-05-2022 Ecg routine ecg w/least 12 lds w/i&r Dwayne Wells MD Work Phone: Start: 06-28-[address] Neeraj Daugherty Work Phone: Start: 05-15-[address] Neeraj Daugherty Work Phone: Start: 09-10-2021 CT of chest without contrast Dr. Neeraj de los santos Work Phone: Start: 03-11-2020 EXTERNAL LAB External Provider Laboratory test result abnormal Abnormal laboratory test result Dr. Neeraj Daugherty Work Phone: Plan of Treatment Date Care Activity Detail Author Start: 2030 RSV Vaccine (1 - 1-d ose 75+ series) RSV Vaccine (1 - 1-dose 75+ series) [facility] Start: 09-04-2028 Urine microalbumin profile [facility] Start: 12-05-2026 Diabetes Screening Diabetes Screenin g [facility] Start: 12-16-2025 End: 12-16-2025 Patient encounter procedure 12/16/2025 9:20 AM EDT Office Visit [facility] [address] [place] [address] Dwayne Wells MD [address] [id number] annual persistent afib srs [facility] [place] Comment on above: annual persistent af ib srs Start: 12-04-2025 BP Controlled (<130/80) BP Controlle d (<130/80) [facility] Start: 12-29-2024 Evaluation of diagno stic study results [facility] Start: 12-09-2024 Evaluation of diagno stic study results 12 Lead EKG performed by [facility] Start: 12-05-2024 BP Controlled (<130/80) BP Controlle d (<130/80) [facility] Start: 11-25-2024 [facility] Start: 11-25-2024 [facility] Start: 07-30-2024 Advance Directive Discussion Advance Directive Discussion [facility] Start: 07-17-2024 Egd transoral biopsy single/multiple EGD BIOPSY SINGLE/MULTIPLE [facility] Start: 07-17-2024 Patient discharge [facility] Start: 03-30-2024 Covid-19 Vaccine () Covid-19 Vaccine () [facility] Start: 03-30-2024 Covid-19 Vaccine () Covid-19 Vaccine () [facility] Start: 03-30-2024 Influenza vaccination Influenza Vacc ine (#1) [facility] Start: 11-20-2023 Egd insert guide wir e dilator passage esophagus EGD GUIDE WIRE INSERTION [facility] Start: 11-20-2023 Patient discharge [facility] Start: 10-16-2023 Egd ablate tumor polyp/lesion w/dilation& wire EGD LESION ABLATION [facility] Start: 10-16-2023 Egd transoral biopsy single/multiple EGD BIOPSY SINGLE/MULTIPLE [facility] [facility] Start: 10-16-2023 Patient discharge [facility] Start: 09-18-2023 End: 09-18-2023 [facility] Start: 09-18-2023 Egd ablate tumor polyp/lesion w/dilation& wire EGD LESION ABLATION [facility] Start: 09-18-2023 Patient discharge [facility] Start: 08-15-2023 Egd ablate tumor polyp/lesion w/dilation& wire EGD LESION ABLATION [facility] Start: 08-15-2023 Patient discharge [facility] Start: 08-07-2023 [facility] Start: 07-30-2023 Advance Directive Discussion Advance Directive Discussion [facility] Start: 07-30-2023 Behavioral Health Screening Behavioral Health Screening [facility] Start: 07-10-2023 Egd transoral biopsy single/multiple EGD BIOPSY SINGLE/MULTIPLE [facility] Start: 07-10-2023 Patient discharge [facility] Start: 03-30-2023 Covid-19 Vaccine ( season) Covid-19 Vaccine ( season) [facility] Start: 07-30-2022 ADVANCE DIRECTIVE DISCUSSION ADVANCE DIRECTIVE DISCUSSION [facility] Start: 07-30-2022 DEPRESSION ASSESSMENT DEPRESSION ASS ESSMENT [facility] Start: 06-28-2022 Colonoscopy flx dx w/collj spec when pfrmd DIAGNOSTIC COLONOSCOPY [facility] Start: 06-28-2022 Egd transoral biopsy single/multiple EGD BIOPSY SINGLE/MULTIPLE [facility] Start: 06-28-2022 Patient discharge [facility] Start: 11-03-2021 Iv infusion therapy/prophylaxis /dx 1st to 1 hr THER/PROPH/DIAG IV INF INIT [facility] Work Phone: Start: 03-30-2021 Influenza vaccination INFLUENZ A (Season Ended) [facility] Start: 2020 ADVANCE DIRECTIVE DISCUSSION ADVANCE DIRECTIVE DISCUSSION [facility] Start: 2020 Pneumococcal Vaccine : 65+ (2 of 2 - PCV) Pneumococcal Vaccine: 65+ (2 of 2 - PCV) [facility] Start: 2020 PNEUMOVAX AGE 65 AND OVER WITH 5YR LOOKBACK (#1) PNEUMOVAX AGE 65 AND OVER WITH 5YR LOOKBACK (#1) [facility] Start: 03-30-2020 Influenza vaccination INFLUENZA (#1) [facility] Start: 01-16-2019 Screening for malign ant neoplasm of lung Lung Cancer Screening [facility] Start: 10-12-2018 DIABETES SCREEN DIABETES SCREEN [facility] Start: 2015 RSV Vaccine (1 - 1-d ose 60+ series) RSV Vaccine (1 - 1-dose 60+ series) [facility] Start: 2015 RSV Vaccine (1 - Ris k 60-74 years 1-dose series) RSV Vaccine (1 - Risk 60-74 years 1-dose series) [facility] Start: 07-08-2014 PNEUMOCOCCAL: 65+ (2 - PCV) PNEUMOCOCCAL: 65+ (2 - PCV) [facility] Start: 2010 PROSTATE CANCER SCREENING DISCUSSION PROSTATE CANCER SCREENING DISCUSSION [facility] Start: 2010 Prostate specific antigen measurement Prostate Cancer Screening Discussion [facility] Start: 2005 Screening for malign ant neoplasm of colon [facility] Start: 2005 SHINGRIX VACCINE (1 of 2) SHINGRIX VACCINE (1 of 2) [facility] Start: 2005 Tuberculosis screening COLOREC JOSE CANCER SCREENING,SEE MODIFIER [facility] Start: 2000 COLOGUARD (FIT-DNA) COLOGUARD (FIT-D NA) [facility] Start: 2000 Colonoscopy COLONOSCOPY [facility] Start: 2000 COLORECTAL CANCER SCREENING COLORECTAL CANCER SCREENING [facility] Start: [address] COLONOGRAPHY [facility] Start: 2000 FECAL OCCULT BLOOD FECAL OCCULT BLOO D [facility] Start: 2000 Screening for malign ant neoplasm of colon [facility] Start: 2000 SIGMOIDOSCOPY SIGMOIDOSCOPY [facility] Start: 1990 Lipid panel Lipid Screening [facility] Start: 1990 LIPID SCREEN LIPID SCREEN [facility] Start: 1973 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 ANNUAL PCP TEAM CHRONIC DISEASE VISIT [facility] Start: 1973 Anxiety Screening Anxiety Screening [facility] Start: 1973 BP CONTROLLED (<130/80) BP CONTROLLE D (<130/80) [facility] Start: 1973 Depression Screening Depression Scre ening [facility] Start: 1973 Hepatitis B surface antibody level LDL Cholesterol [facility] Start: 1973 HEPATITIS C SCREENING HEPATITIS C [facility] Start: 1973 Hepatitis C screening Hepatitis C [facility] Start: 1973 HIV SCREENING HIV SCREENING [facility] Start: 1967 Adult depression screening assessment DEPRESSION SCREENING [facility] Start: 1965 Diabetic foot examination Diabetic Foot Exam [facility] Start: 1965 Glaucoma screening Dilated Retinal E xam [facility] Start: 1965 Hepatitis B screening Urine Albumin:Creatinine Ratio [facility] Start: 1960 Hemoglobin A1c measurement HbA1C [facility] Start: 1955 ABDOMINAL AORTIC ANEURYSM SCREENING ABDOMINAL AORTIC ANEURYSM SCREENING [facility] Start: 1955 Abdominal aortic aneurysm screening Abdominal Aortic Aneurysm Screening [facility] Ambulatory ECG [facility] Comprehensive metabo lic 2000 panel - Serum or Plasma [facility] CT Abdomen and Pelvi s W contrast IV [facility] CT Chest [facility] Work Phone: CT Chest [facility] CT Chest WO contrast [facility] Work Phone: CT Chest WO contrast [facility] Patient Education [facility] Work Phone: Patient referral [facility] Work Phone: Prothrombin time [facility] Work Phone: Vitamin D, 25-hydrox y measurement [facility] Vitamin D, 25-hydrox y measurement [facility] Immunizations Immunization Date Immunization Notes Care Provider [facility] 10-22-2024 pneumococcal conjuga te (PCV20) vaccine, 20 valent (PREVNAR 20) Dwayne Wells MD Work Phone: [facility] 04-21-2024 influenza, high dose seasonal, preservative-free Adriel Khan MD Work Phone: [facility] 04-30-2023 influenza (HD-IIV4) vaccine, age 65+ yr, high dose, quadrivalent, PF (FLUZONE HIGH-DOSE) Dwayne Wells MD Work Phone: [facility] 04-30-2023 influenza virus vacc ine, unspecified formulation [facility] Provider [facility] 05-19-2022 COVID-19 vaccine, ag e 12+ yr, bivalent (BURLESQUICEOUS) Dwayne Wells MD Work Phone: [facility] 05-19-2022 COVID-19 vaccine, unknown product (NON-US) Dwayne Wells MD Work Phone: [facility] 05-19-2022 influenza (HD-IIV4) vaccine, age 65+ yr, high dose, quadrivalent, PF (FLUZONE HIGH-DOSE) Dwayne Wells MD Work Phone: [facility] Work Phone: 12-02-2021 COVID-19 original vaccine, age 12+ yr, monovalent (PFIZER-BIONTECH - GORDON TOP) Dwayne Wells MD Work Phone: [facility] Work Phone: 12-02-2021 COVID-19 vaccine, unknown product (NON-US) Dwayne Wells MD Work Phone: [facility] 06-28-2021 COVID-19 original vaccine, age 12+ yr, monovalent (PFIZER-BIONTECH - PURPLE TOP) Dwayne Wells MD Work Phone: [facility] Work Phone: 06-28-2021 COVID-19 vaccine, unknown product (NON-US) Dwayne Wells MD Work Phone: [facility] 04-13-2021 influenza (HD-IIV4) vaccine, age 65+ yr, high dose, quadrivalent, PF (FLUZONE HIGH-DOSE) Dwayne Wells MD Work Phone: [facility] Work Phone: 02-24-2021 zoster vaccine recombinant Dwayne Wells MD Work Phone: [facility] Work Phone: 12-24-2020 zoster vaccine recombinant Dwayne Wells MD Work Phone: [facility] Work Phone: 10-25-2020 COVID-19 original vaccine, age 12+ yr, monovalent (PFIZER-BIONTECH - PURPLE TOP) Dwayne Wells MD Work Phone: [facility] Work Phone: 10-25-2020 COVID-19 vaccine, unknown product (NON-US) Dwayne Wells MD Work Phone: [facility] 10-02-2020 COVID-19 original vaccine, age 12+ yr, monovalent (PFIZER-BIONTECH - PURPLE TOP) Dwayne Wells MD Work Phone: [facility] Work Phone: 10-02-2020 COVID-19 vaccine, unknown product (NON-US) Dwayne Wells MD Work Phone: [facility] 09-04-2018 tetanus toxoid, redu cathy diphtheria toxoid, and acellular pertussis vaccine, adsorbed External Provider [facility] Work Phone: 04-12-2018 influenza, injectabl e, quadrivalent, preservative free External Provider [facility] Work Phone: 04-29-[address] Neeraj Daugherty Work Phone: [facility] 04-29-2015 influenza, seasonal, injectable External Provider [facility] Work Phone: 04-29-2015 influenza, seasonal, injectable, preservative free External Provider [facility] Work Phone: 04-29-2015 influenza-karrie H5 v irus vaccine, unspecified formulation Dwayne Wells MD Work Phone: [facility] 07-08-2013 pneumococcal polysaccharide vaccine, 23 valent External Provider [facility] Work Phone: 06-29-2013 pneumococcal polysaccharide vaccine, 23 valent External Provider [facility] Work Phone: 06-29-[address] Dustin Daugherty Work Phone: [facility] Work Phone: 06-29-2013 pneumococcal vaccine , unspecified formulation Dr. Neeraj Daugherty Work Phone: [facility] Payers Date Payer Category Payer Self-pay [id number] 2020 Medicaid [id number] 2020 Medicare [employer] ARE MYCARE [employer] MEDICARE [id number] 2020-Present [phone] [address] [place] [address] Medicare [id number] 2020 Medicare (Managed Care) [facility] [id number] 2018 Medicaid [employer] MEDICAID [id number] 2018-Present Medicaid [id number] 2013 Medicaid [id number] 2013 Unknown [id number] Medicare [id number] Unknown [id number] 2.0.1.053043.3.579.2. 462 Unknown [id number] 2.0.1.374219.3.579.2. 462 Unknown [id number] 2.0.1.414508.3.579.2. 462 Unknown [id number] 2.840.1.642894.3.579.2. 462 Unknown [id number] 2.0.1.413774.3.579.2. 462 Unknown [id number] 2.16.840.1.976317.3.579.2. 462 Unknown [id number] 2.16.840.1.293783.3.579.2. 462 Unknown [id number] 2.16.840.1.823858.3.579.2. 462 Unknown [id number] 2.16.840.1.174935.3.579.2. 462 Unknown [id number] 2.840.1.084753.3.579.2. 462 Unknown [id number] 2.840.1.979596.3.579.2. 462 Unknown [id number] 2.840.1.964788.3.579.2. 462 Unknown [id number] 2.840.1.823507.3.579.2. 462 Unknown [id number] 2.840.1.882848.3.579.2. 462 Unknown [id number] 2.840.1.422578.3.579.2. 462 Unknown [id number] 2.840.1.232986.3.579.2. 462 Unknown [id number] 2.840.1.953615.3.579.2. 462 Unknown [id number] 2.840.1.699488.3.579.2. 462 Unknown [id number] 2.840.1.102441.3.579.2. 462 Unknown [id number] 2.840.1.734824.3.579.2. 462 Unknown [id number] 2.840.1.748208.3.579.2. 462 Unknown [id number] 2.840.1.289613.3.579.2. 462 Unknown [id number] 2.16840.1.365787.3.579.2. 462 Unknown [id number] 2.840.1.164568.3.579.2. 462 Unknown [id number] 2.16.840.1.351715.3.579.2. 462 Unknown [id number] 2.16.840.1.967160.3.579.2. 462 Unknown [id number] 2.16.840.1.560614.3.579.2. 462 Unknown [id number] 2.16.840.1.162799.3.579.2. 462 Unknown [id number] 2.16.840.1.736200.3.579.2. 462 Unknown [id number] 2.16840.1.967360.3.579.2. 462 Unknown [id number] 2.16840.1.896689.3.579.2. 462 Unknown [id number] 2.840.1.418978.3.579.2. 462 Unknown [id number] 2.840.1.479917.3.579.2. 462 Unknown [id number] 2.840.1.854508.3.579.2. 462 Unknown [id number] 2.840.1.522123.3.579.2. 462 Unknown [id number] 2.840.1.237084.3.579.2. 462 Unknown [id number] 2.16840.1.542416.3.579.2. 462 Unknown [id number] 2.16840.1.375881.3.579.2. 462 Unknown [id number] 2.16840.1.307019.3.579.2. 462 Unknown [id number] 2.16840.1.240581.3.579.2. 462 Unknown [id number] 2.16840.1.296588.3.579.2. 462 Unknown [id number] 2.16840.1.176454.3.579.2. 462 Unknown [id number] 2.840.1.301645.3.579.2. 462 Unknown [id number] 2.16.840.1.604739.3.579.2. 462 Unknown [id number] 2.16.840.1.795605.3.579.2. 462 Unknown [id number] 2.16.840.1.607460.3.579.2. 462 Unknown [id number] 2.16.840.1.591315.3.579.2. 462 Unknown [id number] 2.16.840.1.572358.3.579.2. 462 Unknown [id number] 2.16840.1.955222.3.579.2. 462 Unknown [id number] 2.16.840.1.071194.3.579.2. 462 Unknown [id number] 2.16840.1.048715.3.579.2. 462 Unknown [id number] 2.840.1.794439.3.579.2. 462 Unknown [id number] 2.16840.1.569625.3.579.2. 462 Unknown [id number] 2.16840.1.056124.3.579.2. 462 Unknown [id number] 2.16.840.1.281878.3.579.2. 462 Unknown [id number] 2.16840.1.490572.3.579.2. 462 Unknown [id number] 2.16.840.1.794134.3.579.2. 462 Unknown [id number] 2.16.840.1.626480.3.579.2. 462 Unknown [id number] 2.16.840.1.936431.3.579.2. 462 Unknown [id number] 2.16.840.1.787651.3.579.2. 462 Unknown [id number] 2.16.840.1.246853.3.579.2. 462 Unknown [id number] 2.16.840.1.960834.3.579.2. 462 Unknown [id number] 2.16.840.1.487808.3.579.2. 462 Unknown [id number] 2.16.840.1.681840.3.579.2. 462 Unknown [id number] 2.16.840.1.155212.3.579.2. 462 Unknown [id number] 2.16.840.1.886246.3.579.2. 462 Unknown [id number] 2.16.840.1.007015.3.579.2. 462 Unknown [id number] 2.16.840.1.736588.3.579.2. 462 Unknown [id number] 2.16.840.1.269816.3.579.2. 462 Unknown [id number] 2.16.840.1.257278.3.579.2. 462 Unknown [id number] 2.16.840.1.583926.3.579.2. 462 Unknown [id number] 2.16.840.1.140445.3.579.2. 462 Unknown [id number] 2.16.840.1.712701.3.579.2. 462 Unknown [id number] 2.16.840.1.049538.3.579.2. 462 Social History Date Type Detail Facility Start: 12-01-2019 End: 12-25-2024 Tobacco smoking status NHIS Former smoker [facility] Start: 07-30-1974 End: 05-14-2019 History of tobacco use Current smoker [facility] Start: 07-30-1974 End: 05-14-2019 History of tobacco use Cigarette Smoker [facility] Start: 12-01-2019 End: 12-05-2022 Cigarettes smoked current (pack per day) - Reported [facility] Start: 12-01-2019 End: 12-04-2024 Tobacco use and exposure Never used [facility] Start: 12-01-2019 End: 12-04-2024 Alcohol intake Current drinker of alcohol (finding) [facility] Start: 05-03-2016 Alcohol Comment occasionally [facility] Start: 1955 Sex Assigned At Not on file [facility] Exposure to SARS-CoV -2 (event) Not sure [facility] Start: 10-27-2021 End: 10-12-2023 Tobacco smoking status NHIS Unknown if ever smoked [facility] Start: 04-28-2020 None [facility] Start: 04-28-2020 Alone [facility] Start: 06-18-2019 Non-smoker [facility] Start: 1955 Sex Assigned At Male [facility] Start: 12-05-2022 End: 12-06-2023 Tobacco use panel [facility] National Score (1-10 0), lower number is lower risk 92 [facility] Start: 10-27-2024 Sex Male (finding) [facility] Medical Equipment Procedure Code Equipment Code Equipment Origin al Text Equipment Identifier Dates CATH,BARXX RFA [id number] FDA Start: 09-18-2023 CATH,BARXX RFA [id number] FDA Start: 09-18-2023 CATH,BARXX RFA [id number] FDA Start: 09-18-2023 CATH,BARXX RFA [id number] FDA Start: 09-18-2023 CATH,BARXX RFA [id number] FDA Start: 09-18-2023 CATH,BARXX RFA [id number] FDA Start: 09-18-2023 CATH,BARXX RFA [id number] FDA Start: 09-18-2023 CATH,BARXX RFA [id number] FDA Start: 09-18-2023 CATH,BARXX RFA [id number] FDA Start: 09-18-2023 CATH,BARXX RFA [id number] FDA Start: 09-18-2023 CATH,BARXX RFA [id number] FDA Start: 09-18-2023 Goals Date Patient Goal Desired Activity /State Personal health goal Mental Status Date Assessment Result Facility 11-25-2024 Cognitive function Voice/Name [facility] Work Phone: 07-17-2024 Cognitive function Sedated [facility] Work Phone: 11-30-2023 Cognitive function Voice/Name [facility] Work Phone: 11-20-2023 Cognitive function Voice/Name [facility] Work Phone: 10-16-2023 Cognitive function Level Of Consciousness Drowsy [facility] Work Phone: 10-16-2023 Cognitive function Voice/Name [facility] Work Phone: 09-18-2023 Cognitive function Level Of Cons ciousness Awake;Drowsy [facility] Work Phone: 08-15-2023 Cognitive function Voice/Name [facility] Work Phone: 07-10-2023 Cognitive function Voice/Name [facility] Work Phone: 06-01-2023 Cognitive function Awake;Alert;A ppropriate;[facility] Work Phone: 01-15-2023 Cognitive function Level Of Cons ciousness Awake;Alert;Appropriate;[facility] Work Phone: 11-30-2022 Cognitive function Awake;Alert;A ppropriate;[facility] Work Phone: 2022 Cognitive function Voice/Name [facility] Work Phone: 06-28-2022 Cognitive function Level Of Consciousness Drowsy [facility] Work Phone: 06-28-2022 Cognitive function Voice/Name [facility] Work Phone: 11-03-2021 Cognitive function Level Of Cons ciousness Awake;Alert [facility] Work Phone: Clinical Notes 11-20-2019 to 12-30-2024 Note Date & Type Note Facility 12-30-2024 Note [facility] 12-09-2024 Progress note [facility] 12-09-2024 Progress note Note Date/Time December 09, 2024 12:10pm [facility] [address] [place] [address] OFFICE VISIT Date of Service: 12/09/24 MR#: [id number] Acct: [id number] Name: ROGER MART III Rep #: [id number] : 1955 Provider: Dr. Rodríguez Portillo MD Age/Sex: 69/M Location: [facility] Status: Signed Intake Vital Signs 05/26/24 10:49 12/09/24 06:18 12/09/24 11:24 Height 5 ft 9 in 5 ft 9 in 5 ft 9 in Weight: 169 lb 4 oz BMI 25.0 Intake Visit Reasons: 1 Y FU/Prolia - B&B Chief Complaint: 6 month f/u Is patient in pain?: No Allergies secobarbital sodium (From [place]) Allergy (Verified 12/09/24 11:29) Unknown venom-honey bee (bee venom (honey bee)) Allergy (Verified 12/09/24 11:29) Anaphylaxis Medications ?Medication ?Instructions ?Recorded ?Confirmed ?Type denosumab 60 mg/mL subcutaneous 60 mg subcut [id number] osteoperosis 11/29/23 12/09/24 Rx syringe (Prolia) #1 mL omega-3 fatty acids 1,000 mg 1,000 mg PO DAILY supplem ent 02/28/24 12/09/24 History capsule allopurinol 300 mg tablet 300 mg PO DAILY gout 4 12/09/24 History pantoprazole 40 mg tablet,delayed 40 mg PO BID gerd # 60 tabs 08/07/24 12/09/24 Rx release cholecalciferol (vitamin D3) 50 50 mcg PO QDAY 5 12/09/24 History mcg (2,000 unit) capsule diltiazem HCl 240 mg 240 mg PO QDAY #90 caps 07/3112/09/24 Rx capsule,extended release 24 hr dofetilide 500 mcg capsule 500 mcg PO BID heart #180 caps 08/18/24 12/09/24 Rx furosemide 40 mg tablet 40 mg PO DAILY edema #90 tab s 08/18/24 12/09/24 Rx potassium chloride 10 mEq 10 meq PO DAILY supplement #90 08/18/24 12/09/24 Rx tablet,extended release(part/cryst) tabs albuterol sulfate 90 mcg/actuation 2 puff inhalation Q 6H PRN 10/15/24 12/09/24 Rx aerosol inhaler shortness of breath or wheez ing #8.5 grams guaifenesin 1,200 mg tablet, 1,200 mg PO Q12H cough #6 0 tabs 10/15/24 12/09/24 Rx extended release 12 hr ipratropium 0.5 mg-albuterol 3 mg 3 ml inhalation TID PRN shortness 10/15/24 12/09/24 Rx (2.5 mg base)/3 mL nebulization of breath or wheezing #180 mL soln warfarin 3 mg tablet 3 mg PO QDAY #90 tabs 12/09/24 Rx warfarin 4 mg tablet 4 mg PO QDAY #90 tabs 12/09/24 Rx fluticasone fur. 100 mcg-umeclid 1 inh inhalation Q24H #60 ea 11/21/24 12/09/24 Rx 62.5 mcg-vilant 25 mcg inhalat.powder (Trelegy Ellipta) Have you fallen in the past year?: No PFSH Medical History (Updated 12/09/24 @ 12:[address] Rodríguez Portillo MD) History of Holter monitoring Acute and chronic respiratory failure with hypoxia History of echocardiogram DVT (deep venous thrombosis) Injury of back History of hiatal hernia Shortness of breath on exertion Former smoker Leg cramps Cardiology follow-up encounter Pulmonary emphysema Hyperlipidemia Colon polyps Barretts esophagus Scabies Atrial fibrillation and flutter Osteoporosis Essential hypertension History of DVT (deep vein thrombosis) Paroxysmal atrial tachycardia Paroxysmal atrial fibrillation GERD (gastroesophageal reflux disease) Gout Type 2 diabetes mellitus Hypertension 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 Smoking Status: Former smoker Tobacco: How many years used: 50 how long ago did patient quit smokin alcohol intake: current alcohol intake frequency: a few times a month Alcohol type: beer substance use type: does not use caffeine: No HPI HPI Chief Complaint: 6 month f/u Details: ROGER MART, is a 69 M who presents to the office today for follow up. He has history of multiple vertebral compression fractures: T5,8,9,12 and L1,2,4 DEXA shows T-score -2.5 in the hip and in the spine it is falsely elevated due to arthritis He received Zoledronic acid X 2 years. He has been on Prolia since 2022. No recent falls or fractures. He has had a flutter and several hospitalizations for SOB. ROS Const Constitutional: Positive for fatigue; No weight change ENT ENT: No dizziness/vertigo Cardio Cardiology: Positive for palpitations; No chest pain at rest, chest pain with exertion or shortness of breath Skin Skin: No wounds Endo Endocrine: Positive for fatigue; No weight change Exam Const General: cooperative, healthy appearing, comfortable, no acute distress, well developed and not cushingoid Nutritional Appearance: well nourished Orientation: alert, awake and oriented x3 HENMT Head: normal to inspection Ears: hearing grossly normal bilaterally Nose: external nose normal Mouth: oral mucosae normal Eyes General: appearance normal, both eyes and all related structures Alignment and Position: alignment normal Periorbital: periorbital findings normal Eyelids: eyelids normal Conjunctivae: conjunctivae normal Neck Neck: normal visual inspection Neck mass: No Thyroid: thyroid normal Chest Chest palpation & inspection: normal inspection of the chest Resp Effort & Inspection: normal respiratory effort, able to speak in complete sentences, symmetric chest movement, no audible wheezes and no cough Auscultation: Bilateral: Clear to Auscultation Cardio Rate: regular rate Rhythm: regular rhythm Pulses: posterior tibial pulses present Skin General: no rashes or lesions noted Neuro General: patient alert, patient awake and patient oriented x3 Cranial Nerves: CN's II-XI intact bilaterally Cognition: normal cognition Speech: speech normal Gait: normal gait Motor: muscle tone normal throughout Extrem General: no edema Psych Appearance: grossly normal Mental Status: mental status grossly normal Mood: congruent mood Affect: normal affect Speech and Movement: speech and movement normal Attitude: cooperative Thought Process: normal Thought Content: normal Judgment: judgment good Office Procedures Injections Procedure performed by: Abdirashid Nichols Lot number: [id number] [employer]: [employer] date: 02/26/27 Dose of injection: 1 mL Site of injection: Sub-Q Medication Given: Yes Is this a patient provided medication?: No Office Meds Prolia 60 mg/mL subcutaneous syringe Performing Provider: Rodríguez Portillo MD Performing Location: [facility] Administered by: Abdirashid Nichols RN on 12/09/24 11:38 Dose Route Admin Location Dispensed Lot Number Expiration Date NDC [employer] [place] 60 mg subcut Right Arm 1 mL [id number] 02/26/27 27226-051-43 [employer] Results POC A1C POC A1C 5.3 % Last Edit by Abdirashid Nichols RN on 12/09/24 11:40 Clinical Quality Measures Falls Risk Screening/Assistive Devices Have you fallen in the past year?: No Assessment and Plan Assessment and Plan (1) Osteoporosis: Status: Chronic Qualifiers: Osteoporosis type: age-related Presence of current pathological fracture: without current pathological fracture Qualified Code(s): M81.0 - Age-related osteoporosis without current pathological fracture Plan: Continue Prolia. Avoid falls. Maintain normal calcium and vitamin D (2) Type 2 diabetes mellitus: Status: Chronic Qualifiers: Diabetes mellitus press tender long goods insulin use: without press tender long goods use Diabetesmellitus complication status: without complication Qualified Code(s): E11.9 - Type 2 diabetes mellitus without complications Plan: Diet controlled. A1C 5.3% I have spent [28] minutes today reviewing labs, records and history. Time includes coordinating care, interpretation of tests, discussion with patient's other health care providers via telephone. This also includes time I spent with the patient for exam, treatment plan and education as well as documenting clinical information. I am providing longitudinal care Orders: Orders Prolia Injection Today M81.0 - Age-related osteoporosis without current pathological fracture POC A1C Today E11.9 - Type 2 diabetes mellitus without complications Comprehensive Metabolic Profil Today M81.0 - Age-related osteoporosis without current pathological fracture Vitamin D,25 Hydroxy Today E03.9 - Hypothyroidism, unspecified, E55.9 - Vitamin D deficiency, unspecified, M81.0 - Age-related osteoporosis without current pathological fracture Coding Level of Care Code Off vis,est,level 3 Extra Time Spent Extra Time Spent Extra Time Spent: G2211 Diagnoses Age-related osteoporosis without current pathological fracture M81.0 Osteoporosis type: age-related Presence of current pathological fracture: without current pathological fracture Type 2 diabetes mellitus without complication, without long-term current use of insulin E11.9 Diabetes mellitus press tender long goods insulin use: without press tender long goods use Diabetes mellitus complication status: without complication Additional Codes Extra Time Spent - Extra Time Spent: G2211 (G2211) 12/09/24 1210 <Electronically signed by Rodríguez Portillo MD> Date _ Rodríguez Portillo MD Cosigner Signature: Date (if applicable) CC: Dr. Adriel Khan MD ~ [facility] Work Phone: [phone]) 392-823605-08-2025 Instructions* Patient Instructions* Dwayne Wells MD - 12/04/2024 9:31 AM EDT We discussed your atrial fibrillation and atrial flutter: - Your EKG today shows atrial flutter, a rhythm related to atrial fibrillation. This may explain your recent elevated heart rate (104 bpm). - I recommend a cardioversion to restore your heart to normal rhythm. I will send a note to the [facility] to coordinate this procedure. They will contact you to schedule it. If you encounter difficulties with scheduling or prefer, we can arrange for the procedure at [facility] instead. - Before the cardioversion, your INR (a measure of blood thinning) must be consistently between 2 and 3 for three weeks. Alternatively, you may need a transesophageal echocardiogram (KERWIN) to ensure there are no clots in your heart. - Continue taking your prescribed medications, including dofetilide and warfarin. Monitor your INR closely and keep it in the 2-3 range. Your current warfarin dosing is 6 mg on Mondays and 4 mg on other days. - If your heart rate increases significantly (e.g., above 160 bpm) or you experience worsening symptoms such as severe shortness of breath, chest pain, or dizziness, please seek immediate medical attention. We discussed your upcoming upper endoscopy: - Dr. Pichardo is scheduled to perform an upper endoscopy on or around the of next month to monitor your esophagus. You will need to stop warfarin temporarily for this procedure. - I will coordinate with Dr. Pichardo to ensure the timing of the endoscopy and cardioversion does not interfere with each other. We discussed your history of sleep apnea: - You are currently using a CPAP machine with oxygen at night, which has improved your energy levels. Continue using this as prescribed. - Dr. Dash Uriarte and his team,are managing your sleep apnea. Please follow up with them as needed. Next steps: - Await contact from the [facility] to schedule your cardioversion. If you do not hear from them, please let us know. - Continue monitoring your INR and ensure it remains between 2 and 3. Notify us if it falls outsidethis range. - Follow up with Dr. Pichardo for your upper endoscopy as scheduled. If there are any changes to the timing of your procedures, please inform us so we can adjust the care plan accordingly. - Schedule a follow-up appointment with me in one year or sooner if needed. Please contact our office if you have any questions or concerns. [facility] History of Present illness Narrative* Dwayne Wells MD - 12/04/2024 9:00 AM EDT PRIMARY CARE PHYSICIAN: [address] [place] [address] Patient Care Team: Adriel Khan MD as PCP - General (Internal Medicine) Dwayne Wells MD as Specialty Machine Quilt Stuffer (Cardiology) Tray Santiago MD as Specialty Machine Quilt Stuffer (Cardiology) Pablo Pichardo DO as Specialty Machine Quilt Stuffer (Gastroenterology) Dash Uriarte as Specialty Machine Quilt Stuffer (Pulmonary Disease) Franky Galloway APRN.MARKETING PROPOSAL SPECIALIST as Nurse Practitioner (Cardiology) CHIEF COMPLAINT: Follow up for arrhythmia HISTORY OF PRESENT ILLNESS: Mr. Mart is a 69 year old male who presents today for a cardiovascular medicine follow-up visit. Recording using ambient AI software for draft documentation of the visit was discussed with the patient/authorized development representative; all questions welcomed and answered. Patient/authorized development representative agreed to proceed History from previous notes, edited as needed and/or generated by dictation with use of AI.: Patient Overview: Mr. Mart has a long history of atrial fibrillation, likely since the . Initially, it was symptomatic and refractory to medical therapy. In 2007, he underwent atrial fibrillation catheter ablation at [facility], which was complicated by an acute DVT of the right iliacvein. 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 For several years, he was minimally symptomatic with appropriate ventricular rate control, but antiarrhythmic drugs, including flecainide, were ineffective. In 2014, his atrial fibrillation became more bothersome, and he was treated with dofetilide and underwent electrical cardioversion on 2014. Despite this, he experienced recurrent atrial fibrillation and underwent a redo catheter ablation in September 2015 at [facility], which also targeted multiple atypical left atrial arrhythmias. He did well for several years but developed recurrent atrial fibrillation in 2022, associated with severe symptoms, including palpitations and shortness of breath. The arrhythmia spontaneously converted, and his diltiazem dosage was increased. Since then, he has been doing reasonably well. At an office follow-up on December 06, 2023, with Dr. Mao MD, he reported doing well and was not aware of much, if any, recurrent arrhythmia. Diagnostic Results: - EKG (December 06, 2023): - Sinus rhythm with an appropriate QTC interval on dofetilide - Progression of first-degree AV block (asymptomatic) Interim History Dr. Wells 12/04/2024: The patient is a 69-year-old male with a history of atrial fibrillation, presenting for evaluation of recent tachycardia. The patient reports a long-standing history of atrial fibrillation dating back to the . Initially, his atrial fibrillation was symptomatic and refractory to medical therapy, leading to a catheter ablation at [facility] in 2007. This procedure was complicated by an acute DVT of the right iliac vein, which was resistant to thrombolysis and angioplasty. Collateral circulation eventually developed, alleviating lower extremity swelling. He experienced recurrent atrial fibrillation and was minimally symptomatic with appropriate ventricular rate control. Antiarrhythmic drugs, including flecainide, were ineffective. In 2014, his atrialfibrillation became more bothersome, and he noted feeling better in sinus rhythm. He was treated with dofetilide and underwent electrical cardioversion on 09/10/2014. Despite this, he experienced recurrent atrial fibrillation and underwent a redo catheter ablation in 09/2015 at [facility], whichtargeted multiple atypical left atrial arrhythmias, including atrial tachycardias and atrial flutters. Post- procedure, he had some recurrence of arrhythmia and was treated again with dofetilide, after which he did well for several years. In 2022, he developed recurrent atrial fibrillation associated with severe symptoms, including palpitations and dyspnea. The arrhythmia spontaneously converted, and his diltiazem dosage was increased. Since then, he has been doing reasonably well. At an office follow-up on 12/06/[address] eWlls, he reported minimal awareness of recurrent arrhythmia. An EKG during that visit revealed sinus rhythm with an appropriate QTc interval on dofetilide and progression of first-degree AV block, which was asymptomatic. Last Sunday, he awoke to find his pulse rate at 105 bpm, as measured by his home pulse oximeter. This was unusual for him, as his heart rate typically remains in the 60s. He did not experience palpitations, diaphoresis, or other symptoms. The heart rate decreased to 98 bpm but remained elevated, prompting him to visit the ED at [facility]. He was monitored for about 7 hours, during which his heart rate remained elevated. A chest X-ray and EKG were performed, and he was informed that hisheart rhythm was normal. He was given two baby aspirins and advised that a heart rate under 100 bpmis normal. He was discharged with a diagnosis of palpitations, possibly due to dehydration, although he reports staying well-hydrated. He has a history of sleep apnea, diagnosed after multiple hospitalizations for dyspnea initially thought to be due to pneumonia. He is currently under the care of Dr. Dash Uriarte, a genetic scientist, and is using CPAP therapy at night. He reports feeling better and regaining his strength since starting treatment. He also has a history of esophageal ablation for precancerous lesions last spring and , is scheduled for an upper endoscopy on the of next month with Dr. Pichardo. He will need to temporarily discontinue warfarin for this procedure. He is currently taking dofetilide and warfarin. His recent INR levels have been low, ranging from 1.7 to 1.9, but was 2.2 the day before yesterday. His warfarin dosage was adjusted to 6 mg on Mondaysand 4 mg on other days. I have confirmed and edited as necessary, the PFSH and ROS obtained by others. 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 dofetilide (Tikosyn); indication: symptomatic AF or atrial flutter Lung nodule On care home drug therapy high risk medication: antiarrhythmic drug dofetilide (Tikosyn); indication: symptomatic AF/flutter Palpitations Paroxysmal supraventricular tachycardia (HCC) Persistent atrial fibrillation (HCC) recurrent; symptomatic; s/p AF ablation 04/2008 [facility]; s/p redo AF ablation 09/2015 Sleep apnea Tachycardia Tobacco dependence syndrome encouraged to quit Type 2 diabetes mellitus (HCC) diagnosed 2009; diet-controlled PAST SURGICAL HISTORY Procedure Laterality Date ABSCESS DRAIN 10/2022 right side of jaw AFIB ABLATION/PULM VEIN ISOLATION 10/12/2015 redo AF catheter ablation/[facility]; also ablation of two macroreentrant atypical left atrial flutters; [facility] Dr. Wells CARDIAC CATH 09/2006 CARDIOVERSION, ELECTIVE, ELECTRICAL 09/10/2014 CARDIOVERSION, ELECTIVE, ELECTRICAL 2007 CATHETER, ABLATION 05/25/2008 [facility], Dr. 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 unsuccessful angioplasty attempts at right common femoral vein and external iliac vein occlusions; [facility] REPAIR OF FEMUR Left 1979 ORIF left femur SOCIAL HISTORY Social History Tobacco Use Smoking status: Former Current packs/day: 0.00 Average packs/day: 1 pack/day for 44.8 years (44.8 ttl pk-yrs) Types: Cigarettes Start date: 07/30/1974 Quit date: 05/14/2019 Years since quittin.5 Smokeless tobacco: Never Vaping Use Vaping status: Never Used Substance Use Topics Alcohol use: Yes Comment: occasionally Drug use: No FAMILY HISTORY Problem Relation Age of Onset Diabetes Father Coronary Artery Disease Mother Diabetes Mother Heart Mother [place] & stents Asthma Sister Prostate Cancer Paternal Uncle ALLERGIES: ALLERGIES Allergen Reactions Insect Extracts Swelling Med-Hist Swelling SECONOL Secobarbital Other: See Comments Succinylcholine Swelling MEDICATIONS: dilTIAZem CD (CARDIZEM CD, CARTIA XT) 240 mg 24 hr capsule Take 1 capsule by mouth every 12 hours. bwpvwaemgpg-eclqimztb-itkbpnss (TRELEGY ELLIPTA) 100-62.5-25 mcg inhalation powder Dypuzjqkhvt-Rqehcbsrh-Rmaevsxa (Trelegy Ellipta) 100-62.5-25 mcg blister with device Active 1 NMA INHALATION Q24H 60April 2024 12:00am TRELEGY ELLIPTA 200-62.5-25 mcg inhalation powder MUCUS RELIEF ER 1,200 mg Ta12 TAKE 1 TABLET BY MOUTH EVERY 12 HOURS NEEDED FOR COUGH ipratropium-albuterol (DUONEB) 0.5 mg-3 mg(2.5 mg base)/3 mL nebu inhale contents of one vial via nebulizer three times a day As Needed for shortness of breath or wheezing nystatin (MYCOSTATIN) 100,000 unit/mL suspension swish and swallow 1ml BY MOUTH THREE TIMES DAILY FOR 5 DAYS warfarin (COUMADIN) 1 mg tablet TAKE 1 TABLET BY MOUTH DAILY on SUNDAY, SUNDAY, and SUNDAY, or ASDIRECTED warfarin (COUMADIN) 3 mg tablet 3 mg orally daily; take as directed albuterol HFA (PROVENTIL HFA, VENTOLIN HFA) 90 mcg/actuation inhaler Inhale 2 Puffs as instructed every 4 hours as needed for wheezing/shortness of breath. lidocaine viscous (XYLOCAINE) 2 % solution Take 5 mL by mouth as needed. pantoprazole DR (PROTONIX) 40 mg tablet Take 80 mg by mouth once daily. allopurinol (ZYLOPRIM) 300 mg tablet Take 1 tablet by mouth once daily. amoxicillin (AMOXIL) 500 mg capsule TAKE 4 CAPSULES BY MOUTH ONE HOUR PRIOR TO DENTAL APPOINTMENT. predniSONE (DELTASONE) 20 mg tablet TAKE 2 TABLETS BY MOUTH DAILY FOR 5 DAYS NEEDED FOR FOR GOUTFLARE denosumab (PROLIA) 60 mg/mL Inject 60 mg [...] 250 mcg (10,000 unit)-45 mcg cap Take 1 tablet by mouth once daily. glycopyrrolate-formoterol 9-4.8 mcg Inhale 2 Puffs as instructed twice daily. zoledronic acid (RECLAST) 5 mg/100 mL pgbk PREMIX piggyback Inject 5 mg intravenously every year. KLOR-CON M10 10 mEq tablet Take 10 mEq by mouth once daily. EPIPEN 2-HYACINTH 0.3 mg/0.3 mL auto-injector Inject 0.3 mg subcutaneously as needed (allergic reactions). warfarin (COUMADIN) 4 mg tablet As directed furosemide (LASIX) 40 mg tablet Take 40 mg by mouth once daily. Fish Oil-[place]-3 Fatty Acids 300-1,000 mg cap Take 1 tablet by mouth once daily. Review of Systems Constitutional: Positive for malaise/fatigue. Negative for chills and fever. Respiratory: Positive for shortness of breath. Negative for cough, hemoptysis and sputum production. Cardiovascular: Negative for chest pain, palpitations, orthopnea, claudication, leg swelling and PND. Gastrointestinal: Negative for abdominal pain, blood in stool, melena, nausea and vomiting. Genitourinary: Negative for dysuria, flank pain and hematuria. Musculoskeletal: Negative for falls. Skin: Negative for rash. Neurological: Negative for focal weakness, seizures and loss of consciousness. PHYSICAL EXAMINATION: BP 120/64[(R) arm[ Pulse 64 Resp 18 Ht 5' 7 (1.70m) Wt 163 lb (73.9kg) SpO2 95% BMI 25.52 kg/(m^2). Physical Exam Vitals reviewed. Constitutional: General: He is not in acute distress. HENT: Head: Normocephalic and atraumatic. Cardiovascular: Rate and Rhythm: Regular rhythm. Tachycardia present. Heart sounds: Normal heart sounds, S1 normal [...] Thought content normal. CARDIOVASCULAR MEDICINE TESTING: Electrocardiogram: Atypical atrial flutter with average ventricular response 104 bpm generally 2-1 AV conduction with some variability; normal QRS duration 80 ms; QTc 449 ms, appropriate on dofetilide 500 mcg twice daily I have personally reviewed the Electrocardiogram. I spent a total of 45 minutes on the date of the service which included preparing to see the patient, [id number] patient care, completing clinical documentation, obtaining and/or reviewing separately obtained history, performing a medically appropriate examination, counseling and educating the pat ient/family/caregiver, ordering medications, tests, or procedures, communicating with other HCPs (not separately reported), independently interpreting results (not separately reported), communicatingresults to the patient/family/caregiver, and care coordination (not separately reported). 1. Persistent atrial fibrillation (HCC) - ICD9: 427.31, ICD10: I48.19 (primary diagnosis) 2. Atypical atrial flutter (HCC) - ICD9: 427.32, ICD10: I48.4 3. 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 Encounter for monitoring dofetilide therapy - ICD9: V58.83, V58.69, ICD10: Z51.81, Z79.899 5. At risk for stroke - ICD9: V15.89, ICD10: Z91.89 6. Anticoagulant long-term use - ICD9: V58.61, ICD10: Z79.01 7. Paroxysmal supraventricular tachycardia (HCC) - ICD9: 427.0, ICD10: I47.10 8. Palpitations - ICD9: 785.1, ICD10: R00.2 9. First degree atrioventricular block - ICD9: 426.11, ICD10: I44.0 10. Obstructive sleep apnea - ICD9: 327.23, ICD10: G47.33 11. Vergara's esophagus with dysplasia - ICD9: 530.85, ICD10: K22.719 12. Pulmonary emphysema, unspecified emphysema type (HCC) - ICD9: 492.8, ICD10: J43.9 CHADS2-Vasc Score Breakdown 3 Total Score 1 Age 65-74 years old 1 History of hypertension 1 History of diabetes mellitus IMPRESSION: 1. Persistent atrial fibrillation (HCC) (I48.19) Atypical atrial flutter (HCC) (I48.4) Long-standing history of atrial fibrillation since the , previously refractory to medical therapy. Underwent multiple catheter ablations and electrical cardioversions. Recent EKG shows atrial flutter with a heart rate of 104 bpm. Patient has experienced recurrent atrial fibrillation with severe symptoms in 2022, but currently reports doing reasonably well. - Recommend electrical cardioversion to restore sinus rhythm. - Will coordinate with [facility] for cardioversion scheduling. - Ensure INR is between 2 and 3 for 3 weeks prior to cardioversion or perform KERWIN to rule out thrombus. Mr. Mart stated that a recent INR was 2.2 but previously was subtherapeutic. If the INR has not been in the therapeutic range for the 3 weeks prior to electrical cardioversion he would need to have KERWIN guidance - Communicate with Dr. Pichardo to coordinate timing of upper endoscopy and cardioversion. Mr. Mart states that he is scheduled in a few weeks for upper endoscopy procedure and that the warfarin will likely need to be interrupted. We would not want to interrupt warfarin for 1 month post electrical cardioversion. So we will need to coordinate these procedures. 2. FPC current use of antiarrhythmic drug (Z79.899) Encounter for monitoring dofetilide therapy (Z51.81) Currently on dofetilide therapy, which has been overall effective in reducing the frequency and duration of arrhythmia episodes. Recent EKG shows appropriate QTC interval on dofetilide. Continue dofetilide therapy. 3. At risk for stroke (Z91.89) Anticoagulant long-term use (Z79.01) On warfarin therapy with recent INR levels below therapeutic range (1.7-1.9). INR recently improvedto 2.2. - Adjust warfarin dosage to maintain INR between 2 and 3. - Monitor INR levels closely. 4. Paroxysmal supraventricular tachycardia (HCC) (I47.10) Palpitations (R00.2) Recent episode of increased heart rate to 105 bpm, not associated with typical AFib symptoms. EKG in the [facility] reportedly showed normal rhythm (but I think it was actually unrecognized atrial flutter), and current EKG in this office reveals atrial flutter. Monitor for recurrence of palpitations and address during cardioversion if necessary. 5. First degree atrioventricular block (I44.0) Progression noted on recent EKG, but remains asymptomatic. Continue monitoring EKG changes. 6. Obstructive sleep apnea (G47.33) Diagnosed and currently managed with CPAP therapy. Patient reports significant improvement in daytime energy levels. Continue CPAP therapy as prescribed. 7. Vergara's esophagus with dysplasia (K22.719) Under surveillance by Dr. Pichardo, with an upcoming upper endoscopy scheduled for the 3rd of next month. Coordinate with Dr. Pichardo to ensure timing of procedures does not interfere with anticoagulation management. See above. 8. Pulmonary emphysema, unspecified emphysema type (HCC) (J43.9) History of pulmonary emphysema, currently managed by Dr. Dash Uriarte. Continue management under Dr. Dash Uriarte. PLAN AND RECOMMENDATIONS: Plan as above. I had a detailed discussion with Mr. Mart regarding my evaluation and recommendations. After our discussion, Mr. Mart expressed his understanding and I answered all his questions to his apparent satisfaction. Return in about 1 year (around 12/04/2025) for Dr. Wells, [facility] office. Dwayne Wells MD 12/04/2024 Medical Decision Making: Problems: Moderate: 1+ chronic illnesses with change Data: Unique source(s) for external note(s) reviewed: 3+ Unique test result(s) reviewed: 3+ Unique test(s) ordered: 1 Risk: Moderate: Moderate risk from testing/treatment, Drug management and Decision on minor surgery w/ risk factors Medical Decision Making Level: 4 - Moderate * Mis Ng MA - 12/04/2024 8:46 AM EDT Patient complains of high rate of pulse was recently visit for the same thing . documented [facility] NoteHNO ID: [id number] Author: DWAYNE WELLS MD Service: ? Author Type: Physician Type: Progress Notes Filed: 12/04/2024 09:41 Note Text: PRIMARY CARE PHYSICIAN: [address] [place] [address] Patient Care Team: Adriel Khan MD as PCP - General (Internal Medicine) Dwayne Wells MD as Specialty Machine Quilt Stuffer (Cardiology) Tray Santiago MD as Specialty Machine Quilt Stuffer (Cardiology) Pablo Pichardo DO as Specialty Machine Quilt Stuffer (Gastroenterology) Dash Uriarte as Specialty Machine Quilt Stuffer (Pulmonary Disease) Franky Galloway APRN.POOJA as Nurse Practitioner (Cardiology) CHIEF COMPLAINT: Follow up for arrhythmia HISTORY OF PRESENT ILLNESS: Mr. Mart is a 69 year old male who presents today for a cardiovascular medicine follow-up visit. Recording using ambient AI software for draft documentation of the visit was discussed with the patient/authorized development representative; all questions welcomed and answered. Patient/authorized development representative agreed to proceed History from previous notes, edited as needed and/or generated by dictation with use of AI.: Patient Overview: Mr. Mart has a long history of atrial fibrillation, likely since the 1980s. Initially, it was symptomatic and refractory to medical therapy. In 2007, he underwent atrial fibrillation catheter ablation at [facility], which was complicated by an acute DVT of the right iliac vein. 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 For several years, he was minimally symptomatic with appropriate ventricular rate control, but antiarrhythmic drugs, including flecainide, were ineffective. In 2014, his atrial fibrillation became more bothersome, and he was treated with dofetilide and underwent electrical cardioversion on September 10, 2014. Despite this, he experienced recurrent atrial fibrillation and underwent a redo catheter ablation in September 2015 at [facility], which also targeted multiple atypical left atrial arrhythmias. He did well for several years but developed recurrent atrial fibrillation in 2022, associated with severe symptoms, including palpitations and shortness of breath. The arrhythmia spontaneously converted, and his diltiazem dosage was increased. Since then, he has been doing reasonably well. At an office follow-up on December 06, 2023, with Dr. Mao MD, he reported doing well and was not aware of much, if any, recurrent arrhythmia. Diagnostic Results: - EKG (December 06, 2023): - Sinus rhythm with an appropriate QTC interval on dofetilide - Progression of first-degree AV block (asymptomatic) Interim History Dr. Wells 12/04/2024: The patient is a 69-year-old male with a history of atrial fibrillation, presenting for evaluation of recent tachycardia. The patient reports a long-standing history of atrial fibrillation dating back to the 1980s. Initially, his atrial fibrillation was symptomatic and refractory to medical therapy, leading to a catheter ablation at [facility] in 2007. This procedure was complicated by an acute DVT of the right iliac vein, which was resistant to thrombolysis and angioplasty. Collateral circulation eventually developed, alleviating lower extremity swelling. He experienced recurrent atrial fibrillation and was minimally symptomatic with appropriate ventricular rate control. Antiarrhythmic drugs, including flecainide, were ineffective. In 2014, his atrial fibrillation became more bothersome, and he noted feeling better in sinus rhythm. He was treated with dofetilide and underwent electrical cardioversion on 09/10/2014. Despite this, he experienced recurrent atrial fibrillation and underwent a redo catheter ablation in 09/2015 at [facility], which targeted multiple atypical left atrial arrhythmias, including atrial tachycardias and atrial flutters. Post-procedure, he had some recurrence of arrhythmia and was treated again with dofetilide, after which he did well for several years. In 2022, he developed recurrent atrial fibrillation associated with severe symptoms, including palpitations and dyspnea. The arrhythmia spontaneously converted, and his diltiazem dosage was increased. Since then, he has been doing reasonably well. At an office follow-up on 12/06/[address] Wells, he reported minimal awareness of recurrent arrhythmia. An EKG during that visit revealed sinus rhythm with an appropriate QTc interval on dofetilide and progression of first-degree AV block, which was asymptomatic. Last Sunday, he awoke to find his pulse rate at 105 bpm, as measured by his home pulse oximeter. This was unusual for him, as his heart rate typically remains in the 60s. He did not experience palpitations, diaphoresis, or other symptom (more content not included)...[facility]05-08-2025 NoteHNO ID: [id number] Author: MIS NG MA Service: ? 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 09, 2024 8:48am Essential hypertension chronic [facility] 2024 8:48am Osteoporosis chronic December 09 11:17am Type 2 diabetes mellitus chronic December 09, 2024 11:17am [facility] Work Phone: 1(850) 271-847501-20-2025 Evaluation note* Diagnosis Onset Date Resolution Status Admit Date 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 August 18, 2024 1:59pm Essential hypertension chronic [facility] 2024 1:59pm [facility]PC (current) use of anticoagulants chronic August 18 1:59pm History of cardiac radiofrequency ablation 2008 resolved August 18, 2024 1:59pm Obstructive sleep apnea acute [facility] 2024 10:37am Thrush, oral acute October 15, 2024 10:37am Hypoxia chronic October 15 10:37am Lung nodule chronic October 15, 2 025 10:37am Pulmonary hypertension chronic [facility] 2024 10:37am Stage 1 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 chronic October 15, 2024 10:37am [employer] Work Phone: 1(390) 144-819301-20-2025 Evaluation note* Diagnosis Onset Date Resolution Status Admit Date 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 August 18, 2024 1:59pm Essential hypertension chronic [facility]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 Work Phone: 1(568) 417-258312-19-2024 [facility]12-03-2024 Evaluation note* Diagnosis Onset Date Resolution Status Admit Date Barretts esophagus chronic Decemb er 2023 8:46am Daytime hypersomnia acute Decem deepthi 2023 11:07am Hypoxia chronic July 16, 2024 11:07am Lung nodule chronic June 11:07am Pulmonary hypertension chronic De cember 2023 11:07am Stage 1 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 chronic July 16, 2 024 11:07am Barretts esophagus chronic Decemb er 2023 8:37am Atrial fibrillation and flutter chronic August 18 1:59pm Essential hypertension chronic [facility] 2024 1:59pm [facility]PC (current) use of anticoagulants chronic August 18 1:59pm History of cardiac radiofrequency ablation 2008 resolved August 18, 2024 1:59pm Obstructive sleep apnea acute arch 2024 10:37am Thrush, oral acute October 15, 2024 10:37am Hypoxia chronic October 15 10:37am Lung nodule chronic October 15 025 10:37am Pulmonary hypertension [facility] 2024 10:37am Stage 1 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 chronic October 15, 2024 10:37am [facility] Work Phone: 1(672) 176-522110-18-2024 [facility]09-25-2024 [facility]09-11-2024 [facility] 12-07-2023 Telephone encounter Note* Telephone Encounter - Dwayne Wells MD - 12/07/2023 6:17 PM EDT [facility] General Electrophysiology (EP) Please let Mr. Mart know that the blood tests were ok. Please send a copy of the test results to his PCP. Dwayne Wells MD December 07, 2023 6:19 PM [facility]05-10-2024 Miscellaneous Notes* Telephone Encounter - Dwayne Wells MD - 12/07/2023 6:17 PM EDT [facility] General Electrophysiology (EP) Please let Mr. Mart know that the blood tests were ok. Please send a copy of the test results to his PCP. Dwayne Wells MD December 07, 2023 6:19 PM documented [facility] Nurse Note* Vero Joseph MA - 12/06/2023 10:08 AM EDT No cardiac complaints today. Vero Joseph MA [facility]05-09-2024 Nurse Note* Vero Joseph MA - 12/06/2023 10:08 AM EDT No cardiac complaints today. Vero Joseph MA documented in this encounterT[facility]05-[facility] History of Present illness Narrative* Dwayne Wells MD - 12/06/2023 10:00 AM EDT PRIMARY CARE PHYSICIAN: Neeraj Daugherty [address] [facility] [place] [address] Patient Care Team: Adriel Khan MD as PCP - General (Internal Medicine) Dwayne Wells MD as Specialty Machine Quilt Stuffer (Cardiology) Group, Nichol Heart as Specialty Machine Quilt Stuffer (Cardiology) Tray Santiago MD as Specialty Machine Quilt Stuffer (Cardiology) Friend, Pablo Campbell DO as Specialty Machine Quilt Stuffer (Gastroenterology) CHIEF COMPLAINT: Follow up for arrhythmia HISTORY OF PRESENT ILLNESS: Mr. Mart is a 68 year old male who presents today for a cardiovascular medicine follow-up visit. History copied from previous notes, edited as needed: Summary of previous notes: Mr. Mart has a long history of atrial fibrillation, possibly since the . The atrial fibrillation was previously very symptomatic, and was refractory to medical therapy. He underwent atrial fibrillation catheter ablation at [facility] in 2007. The procedure was complicated [...] with sufficient collaterals. Mr. Mart developed recurrent atrial fibrillation and for several years was minimally symptomatic with appropriate ventricular rate control. Treatment with antiarrhythmic drugs, including flecainide, was ineffective. Due to his relatively young age, a more aggressive approach to maintaining sinus rhythm had been considered. However, the patient had steadfastly maintained he did not want to take other drugs or inparticular undergo another catheter ablation procedure. So for several years he has been managed with a ventricular rate control treatment approach. More recently (2014), the atrial fibrillation had become more bothersome. He states he clearly felt better in sinus rhythm than in the atrial fibrillation. He described symptomatic episodes, particularly since the 2nd week of June 2014, during which he felt palpitation associated with feeling shaky and dizzy. Episodes were occurring occasionally, and lasted up to a few hours. A beta-john medication was added to his regimen. An ambulatoryHolter revealed symptomatic atrial fibrillation with rapid ventricular rates. He was admitted to [facility] in 08/2014 for loading of the antiarrhythmic drug, dofetilide. He then underwent electrical DC cardioversion 09/10/2014. He was then discharged home on the dofetilide 500 mcg twice daily. He was then evaluated by Dr. Portillo in late September 2014 and was found to be having recurrent episodes of symptomatic arrhythmia. He underwent additional electrical DC cardioversions, but the atrial arrhythmias recurred. Mr. Mart underwent redo catheter ablation procedure in September 2015 at [facility]. The procedure involved redo catheter ablation for the atrial fibrillation, and also targeted and ablated multiple atypical left atrial arrhythmias including atrial tachycardias and/or atrial flutters. He did have some recurrence of his symptoms early after the procedure and was treated with the dofetilide (Tikosyn). He did not have atrial fibrillation for a long time until 2022 when he experienced severe symptoms with tachycardia, palpitations. He presented to [facility], was treated and released. The diltiazem dose was increased from 120 mg to 180 mg daily[address] Interim History Dr. Wells 12/06/2023: Mr. Mart presents for follow up evaluation for arrhythmia, he has atrial fibrillation s/p two catheter ablation procedures, maintained on antiarrhythmic drug therapy with dofetilide. He states he has been doing well, not aware of recurrent arrhythmia. He denies chest pain, shortness of breath, orthopnea, palpitations, PND, lightheadedness or syncope. I have confirmed and edited as necessary, the PFSH and ROS obtained by others. 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, Dr. 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 unsuccessful angioplasty attempts at right common femoral vein and external iliac vein occlusions; [facility] REPAIR OF FEMUR Left 1980 ORIF left femur SOCIAL HISTORY Social History Tobacco Use Smoking status: Former Packs/day: 1 Types: Cigarettes Start date: 07/30/1974 Quit date: 05/14/2019 Years since quittin.5 Smokeless tobacco: Never Vaping Use Vaping Use: Never used Substance Use Topics Alcohol use: Yes Comment: occasionally Drug use: No FAMILY HISTORY Problem Relation Age of Onset Diabetes Father Coronary Artery Disease Mother Diabetes Mother Heart Mother [place] & stents Asthma Sister Prostate Cancer Paternal Uncle ALLERGIES: ALLERGIES Allergen Reactions Insect Extracts Swelling Med-Hist Swelling SECONOL Secobarbital Other: See Comments Succinylcholine Swelling MEDICATIONS: acetaminophen-codeine (TYLENOL-COD #3) 300-30 mg per tablet Take 0.5-1 tablets by mouth every 8 hours as needed for pain. albuterol HFA (PROVENTIL HFA, VENTOLIN HFA) 90 mcg/actuation inhaler Inhale 2 Puffs as instructed every 4 hours as needed for wheezing/shortness of breath. lidocaine viscous (XYLOCAINE) 2 % solution Take 5 mL by mouth as needed. sucralfate (CARAFATE) 1 gram tablet Take 1 g by mouth three times a day. pantoprazole DR (PROTONIX) 40 mg tablet Take 80 mg by mouth once daily. allopurinol (ZYLOPRIM) 300 mg tablet Take 1 tablet by mouth once daily. amoxicillin (AMOXIL) 500 mg capsule TAKE 4 CAPSULES BY MOUTH ONE HOUR PRIOR TO DENTAL APPOINTMENT. dilTIAZem CD (CARDIZEM CD, CARTIA XT) 180 mg 24 hr capsule Take 180 mg by mouth twice daily. predniSONE (DELTASONE) 20 mg tablet TAKE 2 TABLETS BY MOUTH DAILY FOR 5 DAYS NEEDED FOR FOR GOUTFLARE denosumab (PROLIA) 60 mg/mL Inject 60 mg [...] 250 mcg (10,000 unit)-45 mcg cap Take 1 tablet by mouth once daily. glycopyrrolate-formoterol 9-4.8 mcg Inhale 2 Puffs as instructed twice daily. zoledronic acid (RECLAST) 5 mg/100 mL pgbk PREMIX piggyback Inject 5 mg intravenously every year. KLOR-CON M10 10 mEq tablet Take 10 mEq by mouth once daily. EPIPEN 2-HYACINTH 0.3 mg/0.3 mL auto-injector Inject 0.3 mg subcutaneously as needed (allergic reactions). warfarin (COUMADIN) 4 mg tablet As directed furosemide (LASIX) 40 mg tablet Take 40 mg by mouth once daily. Fish Oil-[place]-3 Fatty Acids 300-1,000 mg cap Take 1 tablet by mouth once daily. Review of Systems Constitutional: Negative for chills, fever and malaise/fatigue. Respiratory: Negative for cough, hemoptysis, sputum production and shortness of breath. Cardiovascular: Negative for chest pain, palpitations, orthopnea, leg swelling and PND. Gastrointestinal: Negative for abdominal pain, blood in stool, melena, nausea and vomiting. Genitourinary: Negative for dysuria. Skin: Negative for rash. Neurological: Negative for dizziness, focal weakness, seizures and loss of consciousness. PHYSICAL EXAMINATION: BP 97/64 Pulse 74 Ht 5' 7 (1.70m) Wt 162 lb (73.5kg) SpO2 97% BMI 25.37 kg/(m^2). Physical Exam Vitals reviewed. Constitutional: General: He is not in acute distress. Appearance: Normal appearance. HENT: Head: Normocephalic and atraumatic. Cardiovascular: Rate and Rhythm: Normal rate and regular rhythm. Heart sounds: S1 normal and S2 normal. No murmur [...] normal. CARDIOVASCULAR MEDICINE TESTING: Electrocardiogram: Sinus rhythm 72 bpm; moderately severe first-degree AV block (KS 352 ms); normalQRS duration 84 ms; QTc 503 ms, appropriate on dofetilide; criteria for septal infarct not new finding; compared with previous EKGs, first- degree AV block has progressed I have personally reviewed the Electrocardiogram. I spent a total of 30 minutes on the date of the service which included preparing to see the patient, [id number] patient care, completing clinical documentation, obtaining and/or reviewing separately obtained history, performing a medically appropriate examination, counseling and educating the pat ient/family/caregiver, ordering medications, tests, or procedures, communicating with other HCPs (not separately reported), independently interpreting results (not separately reported), communicatingresults to the patient/family/caregiver, and care coordination (not separately reported). 1. Persistent atrial fibrillation (HCC) - ICD9: 427.31, ICD10: I48.19 (primary diagnosis) 2. 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 Encounter for monitoring dofetilide therapy - ICD9: V58.83, V58.69, ICD10: Z51.81, Z79.899 5. At risk for stroke - ICD9: V15.89, ICD10: Z91.89 6. Anticoagulant long-term use - ICD9: V58.61, ICD10: Z79.01 7. First degree atrioventricular block - ICD9: 426.11, ICD10: I44.0 8. Paroxysmal supraventricular tachycardia (HCC) - ICD9: 427.0, ICD10: I47.10 9. Palpitations - ICD9: 785.1, ICD10: R00.2 CHADS2-Vasc Score Breakdown 3 Total Score 1 Age 65-74 years old 1 History of hypertension 1 History of diabetes mellitus IMPRESSION: Mr. Mart is stable, doing well with regards to arrhythmia. QTc ok on the dofetilide. The first-degree AV block has progressed, he has substantial KS prolongation at this point but asymptomatic. He does not yet require a pacemaker but this might become necessary at some point, the deciding factor would be either symptomatic first degree AV block, symptomatic Mobitz I second degree AV block, or advanced atrioventricular block (Mobitz II or higher) regardless of symptoms. I had a detailed discussion with Mr. Mart regarding my evaluation and recommendations. After our discussion, Mr. Mart expressed his understanding and I answered all his questions to his apparent satisfaction. PLAN AND RECOMMENDATIONS: Continue with current plan of care from EP standpoint. He requested blood tests which were ordered and drawn in our office building: Hemoglobin (g/dL) Date Value 12/06/2023 14.7 10/13/2015 11.3 Hematocrit (%) Date Value 12/06/2023 45.4 10/13/2015 34.2 WBC Date Value 12/06/2023 8.82 k/uL 10/13/2015 7.7 thou/cmm TSH Date Value Ref Range Status 12/06/2023 2.690 0.270 - 4.200 mIU/L Final Glucose (mg/dL) Date Value 12/06/2023 94 10/13/2015 80 Potassium Date Value 12/06/2023 4.1 mmol/L 10/13/2015 3.5 mEq/L Sodium Date Value 12/06/2023 134 mmol/L 10/13/2015 139 mEq/L Chloride Date Value 12/06/2023 98 mmol/L 10/13/2015 109 mEq/L CO2 Date Value 12/06/2023 23 mmol/L 10/13/2015 23 mEq/L Creatinine (mg/dL) Date Value 12/06/2023 1.00 10/13/2015 0.84 BUN (mg/dL) Date Value 12/06/2023 9 10/13/2015 8 Anion Gap Date Value 12/06/2023 13 mmol/L 10/13/2015 11 Calcium (mg/dL) Date Value 10/13/2015 7.3 Calcium, Total (mg/dL) Date Value 12/06/2023 8.3 Protein, Total (g/dL) Date Value 12/06/2023 7.8 Albumin (g/dL) Date Value 12/06/2023 4.6 Bilirubin, Total (mg/dL) Date Value 12/06/2023 0.7 Alkaline Phosphatase (U/L) Date Value 12/06/2023 75 AST (U/L) Date Value 12/06/2023 18 ALT (U/L) Date Value 12/06/2023 12 INR Date Value Ref Range Status 12/06/2023 2.0 (H) 0.9 - 1.3 Final Comment: Vitamin K Antagonist (VKA) Therapeutic Range: INR 2 to 3 (Target INR of 2.5) Note: For patients treated with VKA drugs, such as warfarin, the [employer] 2012 Guideline recommends a therapeutic INR range of 2 to 3 (target INR of 2.5). This recommendation includes high-risk patients with antiphospholipid syndrome with previous arterial or venous thromboembolism, current-generation mechanical or bioprosthetic aortic heart valve replacement. Note: Patients with mechanical aortic valve replacement and additional risk factors for thromboembolic events (atrial fibrillation, previous thromboembolism, LV dysfunction, hypercoagulable conditions) or an older generation mechanical AVR (i.e., ball in-Cage) or any mechanical MVR should have a INR therapeutic range of 2.5 to 3.5 (target INR of 3). Keysha GH, et al. Chest 2012, 141:7S-47S Aguilar RA et al. [facility] 2017, 70: 252-289 Return in about 1 year (around 12/05/2024) for Dr. Wells, [place] office. Dwayne Wells MD 12/06/2023 Medical Decision Making: Problems: Moderate: 2+ stable chronic illnesses Data: Unique source(s) for external note(s) reviewed: 1 Unique test result(s) reviewed: 2 Unique test(s) ordered: 2 Risk: Moderate: Moderate risk from testing/treatment, Drug management and Decision on minor surgery w/ risk factors Medical Decision Making Level: 4 - Moderate documented in this encounterT[facility]04-[facility] Procedure [facility]04-23-2024 Procedure [facility]03-19-2024 History and physical note Author Pablo Pichardo [facility] October 16, 2023 1:32pm Note Date/Time October 16, 2023 1:3 2pm [facility] Medical Records Department [address] [place] [address] History & Physical Exam 10/16/23 1331 MR#: [id number] Acct: [id number] Name: ROGER MART III Rep #:[id number] : 1955 68 From: Pablo Pichardo DO PCP: Jahaira Cerna DO Status:REG S DC Location: [place] [address] History and Physical Date of Admission: 10/16/23 ROGER MART, is a 67 M who presents to the office today for follow up. *BGI established 05.02.22 without GI complaints. History of colonic polyps, large hiatal hernia and Vergara?s esophagus.?EGD and colonoscopy 06.28.22?EGD long-segment Vergara?s esophagus; medium hiatal hernia; prominent gastric folds.? Colonoscopy diverticulosis.? OV 07.12.22 continues to do well.?Continue PPI therapy.? OV 01.10.23 recent onset of LLQ>RLQ abdominal discomfort causing nocturnal night sweats. ?CT abd/pel 01.18.23?emphysema changes with granuloma and lung nodule; renal cysts; diverticulosis; umbilical hernia; multiple compression fractures of spine? Contact 02.02.23 reporting he is doing much better than previously. Proceed with EGD and f/u as scheduled.?EGD 07.10.23?long-segment Vergara?s mucosal changes, metaplasia +; medium hiatal hernia; diffusely friable mucosa of entire stomach.? OV 07.24.23- Pt is doing well since last visit. Has not had any heartburn, dysphagia, nausea or abdominal pain. BM are normal. Has no other concerns. ROS Const Constitutional: No fatigue ENT ENT: No difficulty swallowing Gastro GI: No abdominal pain, belching, bloating, change in bowel habits, change in stool character, coffee ground emesis, constipation, cramping, diarrhea, heartburn, difficulty swallowing, feeling full early, excessive flatus, incontinent of stools, Vomiting blood/hematemesis, Blood in stool, loose stools,Black,tarry stools, nausea/dyspepsia, pain with swallowing, vomiting or other Musc Musculoskeletal: Positive for Arthritis; No joint pain Skin Skin: No yellowing of the eye or itchy eyes Psych Psychiatric: No anxiety and No depression Endo Endocrine: No fatigue Aller/Imm Allergy/Immunologic: No itchy eyes Kevin/Lymp Hematologic/Lymphatic: No easy bleeding or easy bruising Exam Const General: cooperative, comfortable and no acute distress Nutritional Appearance: average body habitus Orientation: alert, awake and oriented x3 Eyes Sclera: sclerae normal Resp Effort & Inspection: normal respiratory effort GI Inspection: normal to inspection Palpation: soft, no hepatosplenomegaly, no masses and nontender Quality Reporting Tobacco Screening ([facility] 138) Smoking Status: Former smoker Assessment and Plan Assessment and Plan (1) Barretts esophagus: Status: Chronic Qualifiers: Vergara's esophagus type: without dysplasia Qualified Code(s): K22.70 -Vergara's esophagus without dysplasia Plan: We discussed his EGD and colonoscopy findings, focusing on Vergara's and the increased risk for esophageal cancer. I thought he was on omeprazole but apparently he wasn't, so I rx'd pantoprazole 40 mg QAM to be taken indefinitely.We will repeat EGD in one yr for long segment Vergara's. Due to his extensive intestinal metaplasia we will perform ablation because it makes it very difficult in order to perform surveillance of his esophagus. Repeat colonoscopy 5 yrs. f/u 6 wks. He requested med for chest congestion that has almost resolved, rx sent in for guaifenesin. I have examined the patient and the H&P has been reviewed. There are no clinicalchanges since date of exam. 10/16/23 1332 <Electronically signed by Pablo Pichardo DO> Cosigner Signature (if applicable): CC: Jahaira Cerna DO; Pablo Pichardo DO~ Signed [facility] Work Phone: 1(356) 298-803903-19-2024 Procedure [facility] 09-18-2023 History and physical note Author Pablo Pichardo [facility] September 18, 2023 12:47pm Note Date/Time September 18, 2023 12:47pm [facility] Medical Records Department [address] [place] [address] History & Physical Exam 09/18/23 1247 MR#: [id number] Acct: [id number] Name: ROGER MART III Rep #:[id number] : 1955 68 From: Pablo Pichardo DO PCP: Jahaira Cerna DO Status:REG S DC Location: [place] [address] History and Physical Date of Admission: 09/18/23 ROGER MART, is a 67 M who presents to the office today for follow up. *BGI established 05.02.22 without GI complaints. History of colonic polyps, large hiatal hernia and Vergara?s esophagus.?EGD and colonoscopy 06.28.22?EGD long-segment Vergara?s esophagus; medium hiatal hernia; prominent gastric folds.? Colonoscopy diverticulosis.? OV 07.12.22 continues to do well.?Continue PPI therapy.? OV 01.10.23 recent onset of LLQ>RLQ abdominal discomfort causing nocturnal night sweats. ?CT abd/pel 01.18.23?emphysema changes with granuloma and lung nodule; renal cysts; diverticulosis; umbilical hernia; multiple compression fractures of spine? Contact 02.02.23 reporting he is doing much better than previously. Proceed with EGD and f/u as scheduled.?EGD 07.10.23?long-segment Vergara?s mucosal changes, metaplasia +; medium hiatal hernia; diffusely friable mucosa of entire stomach.? OV 07.24.23- Pt is doing well since last visit. Has not had any heartburn, dysphagia, nausea or abdominal pain. BM are normal. Has no other concerns. ROS Const Constitutional: No fatigue ENT ENT: No difficulty swallowing Gastro GI: No abdominal pain, belching, bloating, change in bowel habits, change in stool character, coffee ground emesis, constipation, cramping, diarrhea, heartburn, difficulty swallowing, feeling full early, excessive flatus, incontinent of stools, Vomiting blood/hematemesis, Blood in stool, loose stools,Black,tarry stools, nausea/dyspepsia, pain with swallowing, vomiting or other Musc Musculoskeletal: Positive for Arthritis; No joint pain Skin Skin: No yellowing of the eye or itchy eyes Psych Psychiatric: No anxiety and No depression Endo Endocrine: No fatigue Aller/Imm Allergy/Immunologic: No itchy eyes Kevin/Lymp Hematologic/Lymphatic: No easy bleeding or easy bruising Exam Const General: cooperative, comfortable and no acute distress Nutritional Appearance: average body habitus Orientation: alert, awake and oriented x3 Eyes Sclera: sclerae normal Resp Effort & Inspection: normal respiratory effort GI Inspection: normal to inspection Palpation: soft, no hepatosplenomegaly, no masses and nontender Quality Reporting Tobacco Screening ([facility] 138) Smoking Status: Former smoker Assessment and Plan Assessment and Plan (1) Barretts esophagus: Status: Chronic Qualifiers: Vergara's esophagus type: without dysplasia Qualified Code(s): K22.70 -Vergara's esophagus without dysplasia Plan: We discussed his EGD and colonoscopy findings, focusing on Vergara's and the increased risk for esophageal cancer. I thought he was on omeprazole but apparently he wasn't, so I rx'd pantoprazole 40 mg QAM to be taken indefinitely.We will repeat EGD in one yr for long segment Vergara's. Due to his extensive intestinal metaplasia we will perform ablation because it makes it very difficult in order to perform surveillance of his esophagus. Repeat colonoscopy 5 yrs. f/u 6 wks. He requested med for chest congestion that has almost resolved, rx sent in for guaifenesin. I have examined the patient and the H&P has been reviewed. There are no clinicalchanges since date of exam. 09/18/23 1247 <Electronically signed by Pablo Pichardo DO> Cosigner Signature (if applicable): CC: Jahaira Cerna DO; Pablo Pichardo DO~ Signed [facility] Work Phone: 1(789) 679-247302-20-2024 Procedure [facility] 08-15-2023 History and physical note Author Pablo Pichardo [facility] August 15, 2023 10:21am Note Date/Time August 15, 2023 1 0:21am [facility] Medical Records Department [address] [place] [address] History & Physical Exam 08/15/23 1021 MR#: [id number] Acct: [id number] Name: ROGER MART III Rep #:[id number] : 1955 68 From: Pablo Pichardo DO PCP: Jahaira Cerna DO Status:REG S DC Location: [place] [address] History and Physical Date of Admission: 08/15/23 ROGER MART, is a 67 M who presents to the office today for follow up. *BGI established 05.02.22 without GI complaints. History of colonic polyps, large hiatal hernia and Vergara?s esophagus.?EGD and colonoscopy 06.28.22?EGD long-segment Vergara?s esophagus; medium hiatal hernia; prominent gastric folds.? Colonoscopy diverticulosis.? OV 07.12.22 continues to do well.?Continue PPI therapy.? OV 01.10.23 recent onset of LLQ>RLQ abdominal discomfort causing nocturnal night sweats. ?CT abd/pel 6.22.23?emphysema changes with granuloma and lung nodule; renal cysts; diverticulosis; umbilical hernia; multiple compression fractures of spine? Contact 02.02.23 reporting he is doing much better than previously. Proceed with EGD and f/u as scheduled.?EGD 07.10.23?long-segment Vergara?s mucosal changes, metaplasia +; medium hiatal hernia; diffusely friable mucosa of entire stomach.? OV 07.24.23- Pt is doing well since last visit. Has not had any heartburn, dysphagia, nausea or abdominal pain. BM are normal. Has no other concerns. ROS Const Constitutional: No fatigue ENT ENT: No difficulty swallowing Gastro GI: No abdominal pain, belching, bloating, change in bowel habits, change in stool character, coffee ground emesis, constipation, cramping, diarrhea, heartburn, difficulty swallowing, feeling full early, excessive flatus, incontinent of stools, Vomiting blood/hematemesis, Blood in stool, loose stools,Black,tarry stools, nausea/dyspepsia, pain with swallowing, vomiting or other Musc Musculoskeletal: Positive for Arthritis; No joint pain Skin Skin: No yellowing of the eye or itchy eyes Psych Psychiatric: No anxiety and No depression Endo Endocrine: No fatigue Aller/Imm Allergy/Immunologic: No itchy eyes Kevin/Lymp Hematologic/Lymphatic: No easy bleeding or easy bruising Exam Const General: cooperative, comfortable and no acute distress Nutritional Appearance: average body habitus Orientation: alert, awake and oriented x3 Eyes Sclera: sclerae normal Resp Effort & Inspection: normal respiratory effort GI Inspection: normal to inspection Palpation: soft, no hepatosplenomegaly, no masses and nontender Quality Reporting Tobacco Screening ([facility] 138) Smoking Status: Former smoker Assessment and Plan Assessment and Plan (1) Barretts esophagus: Status: Chronic Qualifiers: Vergara's esophagus type: without dysplasia Qualified Code(s): K22.70 -Vergara's esophagus without dysplasia Plan: We discussed his EGD and colonoscopy findings, focusing on Vergara's and the increased risk for esophageal cancer. I thought he was on omeprazole but apparently he wasn't, so I rx'd pantoprazole 40 mg QAM to be taken indefinitely.We will repeat EGD in one yr for long segment Vergara's. Due to his extensive intestinal metaplasia we will perform ablation because it makes it very difficult in order to perform surveillance of his esophagus. Repeat colonoscopy 5 yrs. f/u 6 wks. He requested med for chest congestion that has almost resolved, rx sent in for guaifenesin. I have examined the patient and the H&P has been reviewed. There are no clinicalchanges since date of exam. 08/15/23 1021 <Electronically signed by Pablo Pichardo DO> Cosigner Signature (if applicable): CC: Jahaira Cerna DO; Pablo Pichardo DO~ Signed [facility] Work Phone: 1(298) 355-278801-17-2024 Procedure [facility] 08-15-2023 [facility]12[facility]-2023 Procedure note [facility]12-12-2023 Procedure [facility] 01-15-[address] Daniel [facility] January 15, 2023 10:12pm Note Date/Time January 15, 2023 8:42 pm [facility] Medical Records Department [address] [place] [address] Emergency Department Summary 01/15/23 MR#: [id number] Acct: [id number] Name: ROGER MART III Rep #:[id number] : 1955 67 From: Sadi Dnaiel MD PCP: Jahaira Cerna DO Status:REG E R Location: ED HPI History of Present Illness Chief Complaint: Abn Labs Informant: patient Narrative Narrative: Patient was told to come in due to a high INR. Patient states he has been on Coumadin for atrial fibrillation. He takes 4 mg aday except 6 mg on Wednesdays. They were trying to get his levels up because hewas at about 1.7. They checked the blood today and they got an INR greater than19.5. Patient states he feels fine. He is not having any bruising or bleeding. No bleeding with gums. No blood or black in the stool. No blood in the urine. No lightheadedness. He did eat a lot of mushrooms recently but that was just done yesterday. These were bought at the store and commercially available. He has not changed his dose. Overall the patient has asymptomatic coagulopathy. 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 Near syncope Osteoporosis Paroxysmal atrial fibrillation Paroxysmal atrial tachycardia Pulmonary emphysema Scabies Shortness of breath on exertion Tachycardia Tobacco dependence Type 2 diabetes mellitus Home Medications omega 2-tpb-ugw-fish oil 500 mg (200mg-300mg)-1,000 mg capsule 1 ea PO DAILY 06/18/19 [History Last Taken Unknown] cholecalciferol (vitamin D3) 250 mcg (10,000 unit) capsule 250 mcg PO DAILY 10/13/19 [History Last Taken Unknown] ibuprofen 800 mg tablet 800 mg PO .PRN #90 tabs 10/27/21 [Rx Last Taken Unknown] budesonide 160 mcg-glycopyr 9 mcg-formot 4.8 mcg/actuation HFA inhaler (Breztri Aerosphere) 2 inh inhalation BID #10.7 grams 06/14/22 [Rx Last Taken Unknown] guaifenesin 600 mg tablet, extended release 12 hr 600 mg PO Q12H PRN congestion #14 tabs 07/12/22 [Rx Last Taken Unknown] denosumab 60 mg/mL subcutaneous syringe (Prolia) 60 mg subcut [id number] #1 mL 10/12/22 [Rx Last Taken Unknown] diltiazem HCl 180 mg capsule,extended release 24 hr 180 mg PO BID #180 caps 11/03/22 [Rx Last Taken Unknown] dofetilide 500 mcg capsule 500 mcg PO BID heart #180 caps 11/03/22 [Rx Last Taken Unknown] potassium chloride 10 mEq tablet,extended release(part/cryst) 10 meq PO DAILY #90 tabs 11/03/22 [Rx Last Taken Unknown] warfarin 4 mg tablet 4 mg PO DAILY #90 tabs 11/03/22 [Rx Last Taken Unknown] albuterol sulfate 90 mcg/actuation aerosol inhaler 2 puff inhalation Q6H PRN shortness of breath or wheezing #8.5 grams 05/18/23 [Rx Last Taken Unknown] pantoprazole 40 mg tablet,delayed release 40 mg PO DAILY #90 tabs 01/10/23 [Rx Last Taken Unknown] Allergy/AdvReac Type Severity Reaction Status Date / Time secobarbital sodium Allergy Unknown Verified 01/15/23 18:24 [From Seconal] venom-honey bee Allergy Anaphylaxis Verified 01/15/23 18:24 [bee venom (honey bee)] Family History Mother Diabetes Hypertension Myocardial infarction Surgical History History of cardiac radiofrequency ablation (~04/2008) History of hip replacement History of left hip replacement Status post peripheral artery angioplasty Social History household members: none Smoking Status: Former smoker Tobacco: How many years used: 50 how long ago did patient quit smokin alcohol intake: current alcohol intake frequency: a few times a month Alcohol type: beer substance use type: does not use caffeine: No ROS ROS ED ROS Narrative A complete review of systems was performed and is negative except as documented in the history of present illness. Some specific details below. Constitutional: No recent fevers or chills. No malaise. No lightheadedness. EYE: No discharge, visual complaints, or pain. ENT: No difficulty swallowing. No swelling. No pain. No reflux symptoms. No epistaxis CV: No chest pain or palpitations. Respiratory: No dyspnea. No hemoptysis. GI: No abdominal pain. No nausea vomiting diarrhea. No blood in stool. No melena. : No frequency dysuria or hematuria. Musculoskeletal: No recent trauma. No pains. No swelling. Skin: No rash. Nondiaphoretic. No bruises. Neuro: No weakness or numbness. Endocrine: No polyuria or polydipsia. EXAM Physical Exam Narrative Exam Narrative: CONSTITUTIONAL: Patient is nontoxic in appearance. The patient looks comfortable. Work of breathing looks normal. HEENT: No notable trauma. Mucous membranes moist. No sinus tenderness. No indication of pain with swallowing. No bleeding or petechiae. EYES: No conjunctival injection. No proptosis. No subconjunctival hemorrhage. NECK:No JVD. No stridor. CARDIOVASCULAR: Regular rate. Regular rhythm. No notable murmur. No JVD. RESPIRATORY: No respiratory distress. Breathing is unlabored. No wheezes. No rhonchi. No rales. No pain with a deep breath. No chest wall tenderness. GASTROINTESTINAL: Not distended. Bowel sounds are normal. No tenderness. No guarding. No rebound. No palpable mass. No bruit is heard. GENITOURINARY: No tenderness over the bladder. No CVA tenderness. MUSCULOSKELETAL: Atraumatic. No peripheral edema. No cord. No tenderness along the deep venous system. No asymmetry. No distended veins. NEUROLOGICAL: Patient is alert and appropriate. No focal deficit noted. SKIN: No noted rashes. No diaphoresis. I see no bruising purpura petechia or abnormal findings. PSYCHIATRIC: Patient is calm. Mood is appropriate. Const Vital Signs: 01/15/23 18:22 01/15/23 19:21 Temperature 97.9 F Temperature Source Temporal Pulse Rate 74 Respiratory Rate 19 H Respiratory Effort Normal Non-Labored Respiratory Pattern Normal Blood Pressure 133/95 H Blood Pressure Mean 107 Pulse Ox 100 Oxygen Delivery Method Room Air MDM MDM MDM Narrative Medical decision making narrative: Patient CBC is normal including platelets and hemoglobin. Patient's INR is just a little subtherapeutic for us. It is 1.9 rather than thegreater than 19.5 from earlier. Patient's electrolytes are normal. Patient's liver function test are normal. These were checked because he had also had mushrooms recently. We did do a type and screen in case he needed blood products to get ahead of thecurve. But it ends up it was a lab error. This matches the clinical situation which is a slowly rising INR from 1.7 with just a very small change in his warfarin dosing. He is safe to follow-up as an outpatient. We discussed reasons to return. Lab Data Attestation: I reviewed the patient's lab results. Labs: Laboratory Results - last 24 hr 01/15/23 01/15/23 01/15/23 20:09 20:09 20:09 WBC 7.8 RBC 4.72 Hgb 14.1 Hct 43.1 MCV 91.3 MCH 29.9 MCHC 32.7 RDW Std Deviation 46.4 H RDW Coeff of Vivek 13.9 Plt Count 285 MPV 9.8 Immature Gran % (Auto) 0.500 Neut % (Auto) 56.7 Lymph % (Auto) 24.1 [place] % (Auto) 11.1 H Eos % (Auto) 6.4 H Baso % (Auto) 1.2 H Absolute Neuts (auto) 4.4 Absolute Lymphs (auto) 1.87 Nucleated RBC % 0 PT 22.2 H INR 1.9 Sodium 139 Potassium 3.8 Chloride 103 Carbon Dioxide 31.0 Anion Gap 5 BUN 12 Creatinine 1.14 Estim Creat Clear Calc 58.79 Est GFR (MDRD) Af Amer 82 Est GFR (MDRD) Non-Af 68 BUN/Creatinine Ratio 10.5 Glucose 87 Calcium 8.8 Total Bilirubin 0.40 AST 22 ALT 25 Alkaline Phosphatase 59 Total Protein 7.7 Albumin 3.6 Globulin 4.1 Albumin/Globulin Ratio 0.9 Blood Type Antibody Screen 01/15/23 20:09 WBC RBC Hgb Hct MCV MCH MCHC RDW Std Deviation RDW Coeff of Vivek Plt Count MPV Immature Gran % (Auto) Neut % (Auto) Lymph % (Auto) [place] % (Auto) Eos % (Auto) Baso % (Auto) Absolute Neuts (auto) Absolute Lymphs (auto) Nucleated RBC % PT INR Sodium Potassium Chloride Carbon Dioxide Anion Gap BUN Creatinine Estim Creat Clear Calc Est GFR (MDRD) Af Amer Est GFR (MDRD) Non-Af BUN/Creatinine Ratio Glucose Calcium Total Bilirubin AST ALT Alkaline Phosphatase Total Protein Albumin Globulin Albumin/Globulin Ratio Blood Type O POSITIVE Antibody Screen NEGATIVE Discharge Plan Triage Chief Complaint: Abn Labs ED Provider: Sadi Daniel Dx/Rx/DC Orders Clinical Impression: Warfarin-induced coagulopathy, Abnormal laboratory test result Instructions: What to Know When Taking?Warfarin Prescriptions: No Action cholecalciferol (vitamin D3) 250 mcg (10,000 unit) capsule 250 mcg (10,000 unit) capsule 250 mcg PO DAILY ibuprofen 800 mg tablet 800 mg PO .PRN Qty: 90 0RF Prolia 60 mg/mL syringe 60 mg subcut [id number] Qty: 1 1RF Breztri Aerosphere 160-9-4.8 mcg/actuation HFA aerosol inhaler 2 inh inhalation BID Qty: 10.7 6RF guaifenesin 600 mg tablet extended release 12hr 600 mg PO Q12H PRN (Reason: congestion) Qty: 14 0RF albuterol sulfate 90 mcg/actuation HFA aerosol inhaler 2 puff inhalation Q6H PRN (Reason: shortness of breath or wheezing) Qty: 8.5 1RF pantoprazole 40 mg tablet,delayed release (DR/EC) 40 mg PO DAILY Qty: 90 3RF omega 0-atv-ome-fish oil 1 EACH capsule 1 ea PO DAILY dofetilide 500 mcg capsule 500 mcg PO BID Qty: 180 3RF potassium chloride 10 mEq tablet,ER particles/crystals 10 meq PO DAILY Qty: 90 3RF Label Comments: supplement warfarin 4 mg tablet 4 mg PO DAILY Qty: 90 4RF Protocol: Dose Management Condition: Sunday Dose/Route: 4 mg Instruction: 1 x 4 mg tablet Condition: Sunday Dose/Route: 4 mg Instruction: 1 x 4 mg tablet Condition: Sunday Dose/Route: 4 mg Instruction: 1 x 4 mg tablet Condition: Sunday Dose/Route: 6 mg Instruction: 1.5 x 4 mg tablets Condition: Dose/Route: 4 mg Instruction: 1 x 4 mg tablet Condition: Sunday Dose/Route: 4 mg Instruction: 1 x 4 mg tablet Condition: Sunday Dose/Route: 4 mg Instruction: 1 x 4 mg tablet Protocol Text: Adjustment Start Date: Sunday01/03/23 INR Value: 1.7 INR Date: 01/03/23 Recheck Date: 01/17/23 Rx Instructions: Or as directed for dose changes diltiazem HCl 180 mg capsule,extended release 24hr 180 mg PO BID Qty: 180 3RF Primary Care Provider: Jahaira Cerna Referrals: Jahaira Cerna DO [Primary Care Provider] - 3-5 Days Disposition Disposition: Home, Self Care What to do if you have Problems For any increased pain, shortness of breath, bleeding, nausea or vomiting, chestpain, or any unexpected problems, contact your Primary Care Provider. Call [facility] ([phone]) or report to the closest Emergency Room. Call 911 if necessary. 01/15/232211 <Electronically signed by Sadi Daniel MD> Cosigner Signature (if applicable): CC: Jahaira Cerna DO ~ Signed [facility] Work Phone: 1(239) 226-376005-09-2023 History of Present illness Narrative* Dwayne Wells MD - 12/05/2022 11:00 AM EDT PRIMARY CARE PHYSICIAN: Neeraj Daugherty [phone] [place] [id number] Patient Care Team: Neeraj Daugherty MD as PCP - General (Family Medicine) Parveen Portillo as Specialty Machine Quilt Stuffer (Cardiology) Dwayne Wells MD as Specialty Machine Quilt Stuffer (Cardiology) CHIEF COMPLAINT: Follow up for arrhythmia [...] therapy. He underwent AF catheter ablation at [facility] in 2007. The procedure was complicated by an acute deep venous thrombosis (DVT) of the right iliac vein. According to the medical records, there had been difficulty during the ablation procedure toaccess the right femoral vein. Thrombolysis was not effective to restore patency, although at leastone collateral channel developed that relieved the lower extremity swelling. 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 Mr. Mart developed recurrent AF and for several years was minimally symptomatic with appropriate ventricular rate control. Treatment with antiarrhythmic drugs,including flecainide, was ineffective. Due to his relatively [...] rapid ventricular rates. He was admitted to [facility] in 08/2014 for loading of the [...] ablation procedure in September 2015 here at [facility]. The procedure involved redo catheter ablation [...] mother having open heart surgery here at [facility] recently. He denies chest pain, shortness of breath, orthopnea, cough, edema, PND, lightheadedness or syncope. Additional history 05/16/2017 Dr. Wells: Mr. Mart has been feeling well. Better than I have in 20 years. He is tolerating his medications well. He denies chest pain, shortness of dilia ath, orthopnea, edema, palpitations, PND, lightheadedness or syncope. Additional history 05/08/2018Dr. Wells: Mr. Mart states he has been [...] 12/01/2019: Mr. Mart presents for follow up eval uation by telephone (cannot do video portion, has [...] it back into therapeutic range. He denies chestpain, shortness of breath, orthopnea, palpitations, PND, lightheadedness or syncope. Interim History Dr. Wells 12/01/2020: Mr. Mart presents for follow-up relation. The states that he has been feeling well, not aware of recurrent atrial fibrillation. He feels better since stopping smoking in April 2019. He denies chest pain, shortness of breath, orthopnea, palpitations, PND, lightheadednessor syncope. Interim History Dr. Wells 12/27/2021: Mr. Mart presents for follow-up for arrhythmia. He states he has been feeling well. He has not been aware of any symptoms to suggest recurrent a rrhythmia. He is tolerating the prescribed medication regimen [...] tachycardia, palpitations. He states he presented to [facility], was treated and released. The diltiazem dose was increased from 120 mg to 180 mg daily.He states he has done well since then. He denies chest pain, shortness of breath, orthopnea, PND, syncope. I have confirmed and edited as necessary, the PFSH and ROS obtained by others. 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, Dr. 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 unsuccessful angioplasty attempts at right common femoral vein and external iliac vein occlusions; [facility] REPAIR OF FEMUR Left 1979 ORIF left [...] Artery Disease Mother Diabetes Mother Heart Mother TN & stents Asthma Sister Prostate Cancer Paternal [...] DAILY FOR 5 DAYS NEEDED FOR FOR GOUTFLARE denosumab (PROLIA) 60 mg/mL Inject 60 mg [...] (COUMADIN) 5 mg tablet As directed Fish Oil-[place]-3 Fatty Acids 300-1,000 mg cap Take 1 [...] Sinus rhythm 64 bpm; first-degree AV block (KS 302 ms); normal QRS duration 76 ms; QTc 443 ms, appropriate on dofetilide I have personally reviewed the Electrocardiogram. I spent a total of 30 minutes on the date of the service which included preparing to see the patient, [id number] patient care, completing clinical documentation, obtaining and/or reviewing separately obtained history, performing a medically appropriate examination, counseling and educating the pat ient/family/caregiver, ordering medications, tests, or procedures, communicating with other HCPs (not separately reported), independently interpreting results (not separately reported), communicatingresults to the patient/family/caregiver, and care coordination (not [...] - ICD9: 785.1, ICD10: R00.2 stable 5. FPC current use of antiarrhythmic drug - ICD9: [...] Level: 3 - Low [facility] of Past illness Narrative* Problem Noted Date Resolved Date Atrial fibrillation 11/20/2019 Overview: recurrent; symptomatic; s/p AF catheter ablation 04/2008 [facility]; complicated by acute DVT right common femoral and external iliac veins, with subsequent complete occlusion documented as of this encounter (statuses as of 11/30/2020) [facility] of Past illness Narrative* Problem Noted Date Resolved Date Atrial fibrillation 11/20/2019 Overview: recurrent; symptomatic; s/p AF catheter ablation 04/2008 [facility]; complicated by acute DVT right common femoral and external iliac veins, with subsequent complete occlusion documented as of this encounter (statuses as of 12/06/2022) [facility] Diagnosis Onset Date Resolution Status Lung mass acute Stage 1 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 chronic Scabies acute Osteoporosis chronic Lung nodule acute Nicotine dependence, cigarettes, in remission acute Thrush, oral acute COPD (chronic obstructive pulmonary disease) chronic Irritant dermatitis acute Atrial fibrillation and flutter chronic Essential hypertension chron ic FPC (current) use of anticoagulants chronic History of cardiac radiofrequency ablation 2007 resolved [facility] Work Phone: Evaluation note* Diagnosis Onset Date Resolution Status Scabies acute Osteoporosis chronic Lung nodule acute Nicotine dependence, cigarettes, in remission acute Thrush, oral acute COPD (chronic obstructive pulmonary disease) chronic Irritant dermatitis acute Atrial fibrillation and flutter chronic Essential 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 History of cardiac radiofrequency ablation 2007 resolved [facility] Work Phone: Evaluation note* Diagnosis Onset Date Resolution Status Osteoporosis chronic Lung nodule acute Nicotine dependence, cigarettes, in remission acute Thrush, oral acute COPD (chronic obstructive pulmonary disease) chronic Irritant dermatitis acute Atrial fibrillation and flutter chronic Essential hypertension chron ic FPC (current) use of anticoagulants chronic History of cardiac radiofrequency ablation 2007 resolved Contusion of right lower leg, initial encounter acute Irritant dermatitis acute [facility] Work Phone: Evaluation note* Diagnosis Onset Date Resolution Status Contusion of right lower leg, initial encounter acute Irritant dermatitis acute [facility] Work Phone: Evaluation note* Diagnosis Onset Date Resolution Status Contusion of right lower leg, initial encounter acute Irritant dermatitis acute Barretts esophagus acute Colon polyps acute [facility] Work Phone: Evaluation note* Diagnosis Onset Date Resolution Status Barretts esophagus acute Colon polyps acute [facility] Work Phone: Evaluation note* Diagnosis Onset Date Resolution Status Barretts esophagus acute Colon polyps acute Lung nodule acute Stage 1 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 chronic [facility] Work Phone: Evaluation note* Diagnosis Onset Date Resolution Status Barretts esophagus acute Colon polyps acute Lung nodule acute Stage 1 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 chronic Barretts esophagus acute [facility] Work Phone: Evaluation note* Diagnosis Onset Date Resolution Status Lung nodule acute Stage 1 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 chronic Barretts esophagus acute Atrial fibrillation and flutter chronic Essential hypertension chron ic FPC (current) use of anticoagulants chronic History of cardiac radiofrequency ablation 2008 resolved [facility] Work Phone: Evaluation note* Diagnosis Onset Date Resolution Status Barretts esophagus acute Atrial fibrillation and flutter chronic Essential 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 History of cardiac radiofrequency ablation 2008 resolved Osteoporosis chronic [facility] Work Phone: Evaluation note* Diagnosis Onset Date Resolution Status Atrial fibrillation and flutter chronic Essential hypertension chron ic FPC (current) use of anticoagulants chronic History of cardiac radiofrequency ablation 2008 resolved Osteoporosis chronic Dental abscess acute Dental infection acute Sebaceous cyst acute Sebaceous cyst acute [facility] Work Phone: Evaluation note* Diagnosis Onset Date Resolution Status Atrial fibrillation and flutter chronic Essential hypertension chron ic FPC (current) use of anticoagulants chronic History of cardiac radiofrequency ablation 2008 resolved Osteoporosis chronic Dental abscess acute Dental infection acute Sebaceous cyst acute Sebaceous cyst acute Sebaceous cyst acute [facility] Work Phone: Evaluation note* Diagnosis Persistent atrial fibrillation (HCC)- Primary Atrial fibrillation Atrial flutter, unspecified type (HCC) Paroxysmal supraventricular tachycardia (HCC) Paroxysmal supraventricular tachycardia Palpitations 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 At risk for stroke Other specified personal history presenting hazards to health Anticoagulant long-term use Long-term (current) use of anticoagulants [facility] Diagnosis Onset Date Resolution Status Osteoporosis chronic Dental abscess acute Dental infection acute Sebaceous cyst acute Sebaceous cyst acute Sebaceous cyst acute Lung nodule acute Nicotine dependence, cigarettes, in remission acute COPD (chronic obstructive pulmonary disease) [facility] Work Phone: Evaluation note* Diagnosis Onset Date Resolution Status Osteoporosis chronic Dental abscess acute Dental infection acute Sebaceous cyst acute Sebaceous cyst acute Sebaceous cyst acute Lung nodule acute Nicotine dependence, cigarettes, in remission acute COPD (chronic obstructive pulmonary disease) chronic LLQ abdominal pain acute Barretts esophagus chronic Atrial fibrillation and flutter chronic Essential hypertension chron ic FPC (current) use of anticoagulants chronic History of cardiac radiofrequency ablation 2008 resolved [facility] Work Phone: Evaluation note* Diagnosis Onset Date Resolution Status Dental abscess acute Dental infection acute Sebaceous cyst acute Sebaceous cyst acute Sebaceous cyst acute Lung nodule acute Nicotine dependence, cigarettes, in remission acute COPD (chronic obstructive pulmonary disease) chronic LLQ abdominal pain acute Barretts esophagus chronic Atrial fibrillation and flutter chronic Essential hypertension chron ic FPC (current) use of anticoagulants chronic History of cardiac radiofrequency ablation 2008 resolved [facility] Work Phone: Evaluation note* Diagnosis Onset Date Resolution Status Lung nodule acute Nicotine dependence, cigarettes, in remission acute COPD (chronic obstructive pulmonary disease) chronic LLQ abdominal pain acute Barretts esophagus chronic Atrial fibrillation and flutter chronic Essential hypertension chron ic FPC (current) use of anticoagulants chronic History of cardiac radiofrequency ablation 2007 resolved [facility] Work Phone: Evaluation note* Diagnosis Onset Date Resolution Status LLQ abdominal pain acute Barretts esophagus chronic Atrial fibrillation and flutter chronic Essential hypertension chron ic FPC (current) use of anticoagulants chronic History of cardiac radiofrequency ablation 2008 resolved [facility] Work Phone: Evaluation noteNo assessment information available [facility] Work Phone: Evaluation note* Diagnosis Onset Date Resolution Status Lung nodule acute Nicotine dependence, cigarettes, in remission acute COPD (chronic obstructive pulmonary disease) chronic [facility] Work Phone: Evaluation note* Diagnosis Onset Date Resolution Status Lung nodule acute Nicotine dependence, cigarettes, in remission acute COPD (chronic obstructive pulmonary disease) chronic Barretts esophagus chronic [facility] Work Phone: Evaluation note* Diagnosis Onset Date Resolution Status Lung nodule acute Nicotine dependence, cigarettes, in remission acute COPD (chronic obstructive pulmonary disease) chronic Barretts esophagus chronic Osteoporosis [facility] Work Phone: Evaluation note* Diagnosis Onset Date Resolution Status Barretts esophagus chronic Osteoporosis chronic [facility] Work Phone: Evaluation note* Diagnosis Onset Date Resolution Status Osteoporosis chronic [facility] Work Phone: Evaluation note* Diagnosis Persistent atrial fibrillation (HCC)- Primary Atrial fibrillation Atrial flutter, unspecified type (HCC) FPC current use of antiarrhythmic drug Encounter for monitoring dofetilide therapy Encounter for therapeutic drug monitoring At risk for stroke Other specified personal history presenting hazards to health Anticoagulant long-term use Long-term (current) use of anticoagulants First degree atrioventricular block Paroxysmal supraventricular tachycardia (HCC) Paroxysmal supraventricular tachycardia Palpitations [facility] Diagnosis Persistent atrial fibrillation (HCC)- Primary Atrial fibrillation Atypical atrial flutter (HCC) Atrial flutter FPC current use of antiarrhythmic drug Encounter for monitoring dofetilide therapy Encounter for therapeutic drug monitoring At risk for stroke Other specified personal history presenting hazards to health Anticoagulant long-term use Long-term (current) use of anticoagulants Paroxysmal supraventricular tachycardia (HCC) Paroxysmal supraventricular tachycardia Palpitations First degree atrioventricular block Obstructive sleep apnea Obstructive sleep apnea (adult) (pediatric) Vergara's esophagus with dysplasia Vergara's esophagus Pulmonary emphysema, unspecified emphysema type (HCC) documented [facility] this encounter [facility] Author Pablo Pichardo [facility] July 10, 2023 12:42pm Note Date/Time July 10, 2023 12:42pm [facility] Medical Records Department [address] [place] [id number] History & Physical Exam 07/10/23 1241 MR#: [id number] Acct: [id number] Name: ROGER MART III Rep #:[id number] : 1955 67 From: Pablo Pichardo DO PCP: Jahaira Cerna DO Status:REG S DC Location: [place] [address] History and Physical Date of Admission: 07/10/23 ROGER MART, is a 67 M who presents to the office today for 6 month f/u long segment Vergara's esophagus w/o dysplasia. He has a medium sized hiatal hernia. He takes pantoprazole 40 mg daily. Reports he has no acid reflux or heartburn ordysphagia. Denies nausea, vomiting, early satiety. No diarrhea or constipation. No melena or hematochezia. Weight is stable. He has been waking from night sweats and having LLQ>RLQ discomfort for the past 4 days. Has diverticula ROS Const Constitutional: Positive for fatigue, fever(s) and weight change ENT ENT: No difficulty swallowing Gastro GI: Positive for abdominal pain, bloating, change in bowel habits, constipation,diarrhea and excessive flatus; No belching, change in stool character, coffee ground emesis, cramping, heartburn, difficulty swallowing, feeling full early, incontinent of stools, Vomiting blood/hematemesis, Blood in stool, loose stools, Black,tarry stools, nausea/dyspepsia, pain with swallowing, vomiting or other Musc Musculoskeletal: Positive for joint pain, joint swelling, muscle cramps, stiffness and Arthritis Skin Skin: No yellowing of the eye or itchy eyes Psych Psychiatric: No anxiety and No depression Endo Endocrine: Positive for fatigue and weight change Aller/Imm Allergy/Immunologic: No itchy eyes Kevin/Lymp Hematologic/Lymphatic: Positive for easy bruising; No easy bleeding Exam Const General: cooperative, comfortable and no acute distress Nutritional Appearance: average body habitus Orientation: alert, awake and oriented x3 Eyes Sclera: sclerae normal Resp Effort & Inspection: normal respiratory effort GI Inspection: normal to inspection Palpation: soft, no hepatosplenomegaly, no masses and nontender Quality Reporting Tobacco Screening ([facility] 138) Smoking Status: Former smoker Assessment and Plan Assessment and Plan (1) Barretts esophagus: Status: Chronic Plan: Next EGD in 6 months Continue pantoprazole 40 mg qam Next colonoscopy due in 2026 (2) LLQ abdominal pain: Status: Acute Plan: Acute lower abd pain with night sweats, CT abd pel with contrast is ordered Orders: Orders Abdomen/Pelvis WITH Contrast Today R10.32 - Left lower quadrant pain Medications: Refilled pantoprazole 40 mg PO DAILY 90 tabs 3RF I have examined the patient and the H&P has been reviewed. There are no clinicalchanges since date of exam. 07/10/23 1242 <Electronically signed by Pablo Pichardo DO> Cosigner Signature (if applicable): CC: Jahaira Cerna DO; Pablo Pichardo DO~ Signed [facility] Work Phone: History and physical note Author Pablo Pichardo [facility] November 20, 2023 12:15pm Note Date/Time November 20, 2023 12: 15pm [facility] Medical Records Department [address] [place] [address] History & Physical Exam 11/20/23 1215 MR#: [id number] Acct: [id number] Name: ROGER MART III Rep #:[id number] : 1955 68 From: Pablo Friend DO PCP: Jahaira Cerna DO Status:REG S DC Location: [place] [address] History and Physical Date of Admission: 11/20/23 ROGER MART, is a 67 M who presents to the office today for follow up. *BGI established 05.02.22 without GI complaints. History of colonic polyps, large hiatal hernia and Vergara?s esophagus.?EGD and colonoscopy 06.28.22?EGD long-segment Vergara?s esophagus; medium hiatal hernia; prominent gastric folds.? Colonoscopy diverticulosis.? OV 07.12.22 continues to do well.?Continue PPI therapy.? OV 01.10.23 recent onset of LLQ>RLQ abdominal discomfort causing nocturnal night sweats. ?CT abd/pel 01.18.23?emphysema changes with granuloma and lung nodule; renal cysts; diverticulosis; umbilical hernia; multiple compression fractures of spine? Contact 02.02.23 reporting he is doing much better than previously. Proceed with EGD and f/u as scheduled.?EGD 07.10.23?long-segment Vergara?s mucosal changes, metaplasia +; medium hiatal hernia; diffusely friable mucosa of entire stomach.? OV 07.24.23- Pt is doing well since last visit. Has not had any heartburn, dysphagia, nausea or abdominal pain. BM are normal. Has no other concerns. ROS Const Constitutional: No fatigue ENT ENT: No difficulty swallowing Gastro GI: No abdominal pain, belching, bloating, change in bowel habits, change in stool character, coffee ground emesis, constipation, cramping, diarrhea, heartburn, difficulty swallowing, feeling full early, excessive flatus, incontinent of stools, Vomiting blood/hematemesis, Blood in stool, loose stools,Black,tarry stools, nausea/dyspepsia, pain with swallowing, vomiting or other Musc Musculoskeletal: Positive for Arthritis; No joint pain Skin Skin: No yellowing of the eye or itchy eyes Psych Psychiatric: No anxiety and No depression Endo Endocrine: No fatigue Aller/Imm Allergy/Immunologic: No itchy eyes Kevin/Lymp Hematologic/Lymphatic: No easy bleeding or easy bruising Exam Const General: cooperative, comfortable and no acute distress Nutritional Appearance: average body habitus Orientation: alert, awake and oriented x3 Eyes Sclera: sclerae normal Resp Effort & Inspection: normal respiratory effort GI Inspection: normal to inspection Palpation: soft, no hepatosplenomegaly, no masses and nontender Quality Reporting Tobacco Screening ([facility] 138) Smoking Status: Former smoker Assessment and Plan Assessment and Plan (1) Barretts esophagus: Status: Chronic Qualifiers: Vergara's esophagus type: without dysplasia Qualified Code(s): K22.70 -Vergara's esophagus without dysplasia Plan: We discussed his EGD and colonoscopy findings, focusing on Vergara's and the increased risk for esophageal cancer. I thought he was on omeprazole but apparently he wasn't, so I rx'd pantoprazole 40 mg QAM to be taken indefinitely.We will repeat EGD in one yr for long segment Vergara's. Due to his extensive intestinal metaplasia we will perform ablation because it makes it very difficult in order to perform surveillance of his esophagus. Repeat colonoscopy 5 yrs. f/u 6 wks. He requested med for chest congestion that has almost resolved, rx sent in for guaifenesin. I have examined the patient and the H&P has been reviewed. There are no clinicalchanges since date of exam. 11/20/23 1215 <Electronically signed by Pablo Pichardo DO> Cosigner Signature (if applicable): CC: Jahaira Cerna DO; Pablo Pichardo DO~ Signed [facility] Work Phone: Hospital Discharge instructions Additional Instructions 1. Call Dr. Portillo's office tomorrow for follow-up appointment first part of next week 2. You need to increase your warfarin dose to 4 mg daily. 3. Your diltiazem was increased to 180 mg twice a day. (Do not take your 120 mg tablets once you start the 180 mg tablets)[facility] Work Phone: Hospital Discharge instructions Additional Instructions Foot x-ray is negative. Your INR 3.1. No clinical signs of gout concerns. You have good vascular flow with normal capillary refill. Use Tylenol every 6 hours as needed and follow-up with your doctor for reevaluation.[facility] Work Phone: Reason for referral (narrative)No reason for referral information availableWAdena Health System Work Phone: Summary Purpose Family History No Family History Records Found Relationship Condition Age at Onset Recorded Date/T everardo mother Diabetes mellitus Unknown Hypertension Unknown Myocardial infarction Unknown Relationship Condition Age at Onset Recorded Date/T everardo mother Diabetes mellitus Unknown Hypertension Unknown Myocardial infarction Unknown Coronary artery disease Unknown father Hypertension Unknown Cardiac disease Unknown Diabetes mellitus Unknown Advance Directives No Advanced Directives Records Found Advance Directive Response Recorded Date/ Time Advance Directives No October 25 2 016 2:31pm Living Will No April 28, 2020 2:51pm Power of Interior Design Faculty Member No March 2:51pm Advance Directive Response Recorded Date/ Time Advance Directives No October 25 2 016 1:31pm Living Will No June 23 022 11:41am Power of Interior Design Faculty Member No June 23, 2022 11:41am Advance Directive Response Recorded Date/ Time Advance Directives No October 25 2 016 1:31pm Living Will No August 03 3 7:01pm Power of Interior Design Faculty Member No August 03 2 023 7:01pm Advance Directive Response Recorded Date/ Time Advance Directives No October 25 2 016 2:31pm Living Will No August 03 3 8:01pm Power of Interior Design Faculty Member No August 03 2 023 8:01pm Advance Directive Response Recorded Date/ Time Advance Directives No October 25 2 016 2:31pm Living Will No January 15, 2023 7:21pm Power of Interior Design Faculty Member No January 15 3 7:21pm Advance Directive Response Recorded Date/ Time Advance Directives No October 25 2 016 1:31pm Living Will No July 05 3:23pm Power of Interior Design Faculty Member No July 05, 2023 3:23pm Advance Directive Response Recorded Date/ Time Advance Directives No October 25 016 1:31pm Living Will No August 07 7:55am Power of Interior Design Faculty Member No August 07 7:55am Advance Directive Response Recorded Date/ Time Advance Directives No October 25 016 1:31pm Living Will No August 13 12:16pm Power of Interior Design Faculty Member No August 13, 2023 12:16pm Advance Directive Response Recorded Date/ Time Advance Directives No October 25 016 1:31pm Living Will No September 12 10:40am Power of Interior Design Faculty Member No September 12, 2023 10:40am Advance Directive Response Recorded Date/ Time Advance Directives No October 25 2:31pm Living Will No October 12, 2023 11:58am Power of Interior Design Faculty Member No October 11 11:58am Advance Directive Response Recorded Date/ Time Advance Directives No October 25 2:31pm Living Will No November 16, 2023 12:17pm Power of Interior Design Faculty Member No November 15 12:17pm Advance Directive Response Recorded Date/ Time Living Will No November 16, 2023 12:17pm Do you have a Healthcare Power of Interior Design Faculty Member? No November 16, 2023 12:17pm Living Will No April 07 12:57pm Do you have a Healthcare Power of Interior Design Faculty Member? No April 07, 2024 12:57pm Living Will No June 29 4:12am Do you have a Healthcare Power of Interior Design Faculty Member? No June 29, 2024 4:12am Living Will No July 30 6:02am Do you have a Healthcare Power of Interior Design Faculty Member? No July 30, 2024 6:02am Living Will No August 30 3:46am Do you have a Healthcare Power of Interior Design Faculty Member? No August 30, 2024 3:46am Living Will No July 16 11:49am Do you have a Healthcare Power of Interior Design Faculty Member? No July 16, 2024 11:49am Living Will No September 27, 2024 9:25am Do you have a Healthcare Power of Interior Design Faculty Member? No September 27, 2024 9:25am Advance Directives No May 26, 2024 10:49am Advance Directive Response Recorded Date/ Time Living Will No July 30 6:02am Do you have a Healthcare Power of Interior Design Faculty Member? No July 30, 2024 6:02am Living Will No August 30 3:46am Do you have a Healthcare Power of Interior Design Faculty Member? No August 30, 2024 3:46am Living Will No November 27, 2024 1: 02am Do you have a Healthcare Power of Interior Design Faculty Member? No November 27, 2024 1:02am Living Will No September 27, 2024 9:25am Do you have a Healthcare Power of Interior Design Faculty Member? No September 27, 2024 9:25am Living Will No October 27, 2024 11:40pm Do you have a Healthcare Power of Interior Design Faculty Member? No October 27, 2024 11:40pm Do you have a Healthcare Power of Interior Design Faculty Member? No November 25, 2024 4:43pm Advance Directives No May 26, 2024 10:49am Advance Directive Response Recorded Date/ Time Living Will No May 26 10:49am Do you have a Healthcare Power of Interior Design Faculty Member? No May 26, 2024 10:49am Living Will No July 30 6:02am Do you have a Healthcare Power of Interior Design Faculty Member? No July 30, 2024 6:02am Living Will No August 30 3:46am Do you have a Healthcare Power of Interior Design Faculty Member? No August 30, 2024 3:46am Living Will No November 27, 2024 1: 02am Do you have a Healthcare Power of Interior Design Faculty Member? No November 27, 2024 1:02am Living Will No September 27, 2024 9:25am Do you have a Healthcare Power of Interior Design Faculty Member? No September 27, 2024 9:25am Living Will No October 27, 2024 11:40pm Do you have a Healthcare Power of Interior Design Faculty Member? No October 27, 2024 11:40pm Do you have a Healthcare Power of Interior Design Faculty Member? No November 25, 2024 4:43pm Advance Directives No May 26, 2024 10:49am Advance Directive Response Recorded Date/ Time Living Will No May 26 10:49am Do you have a Healthcare Power of Interior Design Faculty Member? No May 26, 2024 10:49am Living Will No August 30 3:46am Do you have a Healthcare Power of Interior Design Faculty Member? No August 30, 2024 3:46am Living Will No November 27, 2024 1: 02am Do you have a Healthcare Power of Interior Design Faculty Member? No November 27, 2024 1:02am Living Will No September 27, 2024 9:25am Do you have a Healthcare Power of Interior Design Faculty Member? No September 27, 2024 9:25am Living Will No October 27, 2024 11:40pm Do you have a Healthcare Power of Interior Design Faculty Member? No October 27, 2024 11:40pm Do you have a Healthcare Power of Interior Design Faculty Member? No November 25, 2024 4:43pm Advance Directives No May 26, 2024 10:49am History of Past Illness Problem Noted Date Resolved Date Atrial fibrillation 11/20/2019 Overview: recurrent; symptomatic; s/p AF catheter ablation 04/2008 [facility]; complicated by acute DVT right common femoral and external iliac veins, with subsequent complete occlusion Chief Complaint and Reason for Visit Chief Complaint 3 week fu S/O PT/INR S/O PT/INR LUNG MASS RASH ON ARMS S/O PT/INR 1 Y FU 3 M FU RASH ON ARMS S/O PT/INR 6 M FU Reason for Visit Lung mass Stage 1 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 Scabies Osteoporosis Lung nodule Nicotine dependence, cigarettes, in remission Thrush, oral COPD (chronic obstructive pulmonary disease) Irritant dermatitis Atrial fibrillation and flutter Essential 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 History of cardiac radiofrequency ablation Chief Complaint S/O PT/INR S/O PT/INR LUNG MASS RASH ON ARMS S/O PT/INR 1 Y FU 3 M FU RASH ON ARMS S/O PT/INR 6 M FU RECLAST Reason for Visit Scabies Osteoporosis Lung nodule Nicotine dependence, cigarettes, in remission Thrush, oral COPD (chronic obstructive pulmonary disease) Irritant dermatitis Atrial fibrillation and flutter Essential 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 History of cardiac radiofrequency ablation Chief Complaint LUNG MASS RASH ON ARMS S/O PT/INR 1 Y FU 3 M FU RASH ON ARMS S/O PT/INR 6 M FU RECLAST S/O PT/INR S/O PT/INR Reason for Visit Scabies Osteoporosis Lung nodule Nicotine dependence, cigarettes, in remission Thrush, oral COPD (chronic obstructive pulmonary disease) Irritant dermatitis Atrial fibrillation and flutter Essential 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 History of cardiac radiofrequency ablation Chief Complaint 1 Y FU 3 M FU RASH ON ARMS S/O PT/INR 6 M FU RECLAST S/O PT/INR S/O PT/INR S/O PT/INR R LOWER LEG INJURY/SWELLING Reason for Visit Osteoporosis Lung nodule Nicotine dependence, cigarettes, in remission Thrush, oral COPD (chronic obstructive pulmonary disease) Irritant dermatitis Atrial fibrillation and flutter Essential 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 History of cardiac radiofrequency ablation Contusion of right lower leg, initial encounter Irritant dermatitis Chief Complaint RECLAST S/O PT/INR S/O PT/INR S/O PT/INR R LOWER LEG INJURY/SWELLING S/O PT/INR Reason for Visit Contusion of right l ower leg, initial encounter Irritant dermatitis Chief Complaint S/O PT/INR R LOWER LEG INJURY/SWELLING S/O PT/INR S/O PT/INR S/O PT/INR Reason for Visit Contusion of right l ower leg, initial encounter Irritant dermatitis Chief Complaint S/O PT/INR R LOWER LEG INJURY/SWELLING S/O PT/INR S/O PT/INR S/O PT/INR COLON POLYPS S/O PT/INR HX TOBACCO DEPENDENCY Reason for Visit Contusion of right l ower leg, initial encounter Irritant dermatitis Barretts esophagus Colon polyps Chief Complaint S/O PT/INR S/O PT/INR S/O PT/INR COLON POLYPS S/O PT/INR HX TOBACCO DEPENDENCY Reason for Visit Barretts esophagus Colon polyps Chief Complaint S/O PT/INR S/O PT/INR COLON POLYPS S/O PT/INR HX TOBACCO DEPENDENCY S/O PT/INR 8 MONTH FU Reason for Visit Barretts esophagus Colon polyps Lung nodule Stage 1 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 Chief Complaint S/O PT/INR COLON POLYPS S/O PT/INR HX TOBACCO DEPENDENCY S/O PT/INR 8 MONTH FU 2 WK FU S/O PT/INR HIGH HEART RATE Reason for Visit Barretts esophagus Colon polyps Lung nodule Stage 1 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 Barretts esophagus Chief Complaint S/O PT/INR 8 MONTH FU 2 WK FU S/O PT/INR HIGH HEART RATE s/p [facility] ED 08-03-22 S/O PT/INR S/O PT/INR Reason for Visit Lung nodule Stage 1 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 Barretts esophagus Atrial fibrillation and flutter Essential 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 History of cardiac radiofrequency ablation Chief Complaint 2 WK FU S/O PT/INR HIGH HEART RATE s/p [facility] ED 08-03-22 S/O PT/INR S/O PT/INR S/O PT/INR 1 Y FU Reason for Visit Barretts esophagus Atrial fibrillation and flutter Essential 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 History of cardiac radiofrequency ablation Osteoporosis Chief Complaint HIGH HEART RATE s/p [facility] ED 08-03-22 S/O PT/INR S/O PT/INR S/O PT/INR 1 Y FU CONCERN FOR ABCESS/RIGHT SIDE OF MANDIBLE CYST ON JAW- SELF REFERRED S/O PT/INR Excision CYST ON JAW- SELF REFERRED RIGHT JAW CYST Reason for Visit Atrial fibrillation and flutter Essential hypertension FPC (current) use of anticoagulants History of cardiac radiofrequency ablation Osteoporosis Dental abscess Dental infection Sebaceous cyst Sebaceous cyst Chief Complaint HIGH HEART RATE s/p [facility] ED 08-03-22 S/O PT/INR S/O PT/INR S/O PT/INR 1 Y FU CONCERN FOR ABCESS/RIGHT SIDE OF MANDIBLE CYST ON JAW- SELF REFERRED S/O PT/INR Excision CYST ON JAW- SELF REFERRED RIGHT JAW CYST Suture Removal Cyst on jaw 11/22 PROLIA Reason for Visit Atrial fibrillation and flutter Essential 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 History of cardiac radiofrequency ablation Osteoporosis Dental abscess Dental infection Sebaceous cyst Sebaceous cyst Sebaceous cyst Chief Complaint S/O PT/INR S/O PT/INR 1 Y FU CONCERN FOR ABCESS/RIGHT SIDE OF MANDIBLE CYST ON JAW- SELF REFERRED S/O PT/INR Excision CYST ON JAW- SELF REFERRED RIGHT JAW CYST Suture Removal Cyst on jaw 11/22 PROLIA NEW 6MM S/O PT/INR 6 M FU Reason for Visit Osteoporosis Dental abscess Dental infection Sebaceous cyst Sebaceous cyst Sebaceous cyst Lung nodule Nicotine dependence, cigarettes, in remission COPD (chronic obstructive pulmonary disease) Chief Complaint S/O PT/INR 1 Y FU CONCERN FOR ABCESS/RIGHT SIDE OF MANDIBLE CYST ON JAW- SELF REFERRED S/O PT/INR Excision CYST ON JAW- SELF REFERRED RIGHT JAW CYST Suture Removal Cyst on jaw 11/22 PROLIA NEW 6MM S/O PT/INR 6 M FU 6 mo fu 1 Y FU S/O PT/INR high coumadin level Reason for Visit Osteoporosis Dental abscess Dental infection Sebaceous cyst Sebaceous cyst Sebaceous cyst Lung nodule Nicotine dependence, cigarettes, in remission COPD (chronic obstructive pulmonary disease) LLQ abdominal pain Barretts esophagus Atrial fibrillation and flutter Essential 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 History of cardiac radiofrequency ablation Chief Complaint S/O PT/INR 1 Y FU CONCERN FOR ABCESS/RIGHT SIDE OF MANDIBLE CYST ON JAW- SELF REFERRED S/O PT/INR Excision CYST ON JAW- SELF REFERRED RIGHT JAW CYST Suture Removal Cyst on jaw 11/22 PROLIA NEW 6MM S/O PT/INR 6 M FU 6 mo fu 1 Y FU S/O PT/INR high coumadin level LLQ ABD PAIN Reason for Visit Osteoporosis Dental abscess Dental infection Sebaceous cyst Sebaceous cyst Sebaceous cyst Lung nodule Nicotine dependence, cigarettes, in remission COPD (chronic obstructive pulmonary disease) LLQ abdominal pain Barretts esophagus Atrial fibrillation and flutter Essential 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 History of cardiac radiofrequency ablation Chief Complaint S/O PT/INR 1 Y FU CONCERN FOR ABCESS/RIGHT SIDE OF MANDIBLE CYST ON JAW- SELF REFERRED S/O PT/INR Excision CYST ON JAW- SELF REFERRED RIGHT JAW CYST Suture Removal Cyst on jaw 11/22 PROLIA NEW 6MM S/O PT/INR 6 M FU 6 mo fu 1 Y FU high coumadin level LLQ ABD PAIN S/O PT/INR Reason for Visit Osteoporosis Dental abscess Dental infection Sebaceous cyst Sebaceous cyst Sebaceous cyst Lung nodule Nicotine dependence, cigarettes, in remission COPD (chronic obstructive pulmonary disease) LLQ abdominal pain Barretts esophagus Atrial fibrillation and flutter Essential hypertension FPC (current) use of anticoagulants History of cardiac radiofrequency ablation Chief Complaint CONCERN FOR ABCESS/R IGHT SIDE OF MANDIBLE CYST ON JAW- SELF REFERRED S/O PT/INR Excision CYST ON JAW- SELF REFERRED RIGHT JAW CYST Suture Removal Cyst on jaw 11/22 PROLIA NEW 6MM S/O PT/INR 6 M FU 6 mo fu 1 Y FU high coumadin level LLQ ABD PAIN S/O PT/INR S/O PT/INR Reason for Visit Dental abscess Dental infection Sebaceous cyst Sebaceous cyst Sebaceous cyst Lung nodule Nicotine dependence, cigarettes, in remission COPD (chronic obstructive pulmonary disease) LLQ abdominal pain Barretts esophagus Atrial fibrillation and flutter Essential 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 History of cardiac radiofrequency ablation Chief Complaint PROLIA NEW 6MM S/O PT/INR 6 M FU 6 mo fu 1 Y FU high coumadin level LLQ ABD PAIN S/O PT/INR S/O PT/INR S/O PT/INR Reason for Visit Lung nodule Nicotine dependence, cigarettes, in remission COPD (chronic obstructive pulmonary disease) LLQ abdominal pain Barretts esophagus Atrial fibrillation and flutter Essential hypertension FPC (current) use of anticoagulants History of cardiac radiofrequency ablation Chief Complaint 6 mo fu 1 Y FU high coumadin level LLQ ABD PAIN S/O PT/INR S/O PT/INR S/O PT/INR S/O PT/INR Reason for Visit LLQ abdominal pain Barretts esophagus Atrial fibrillation and flutter Essential hypertension FPC (current) use of anticoagulants History of cardiac radiofrequency ablation Chief Complaint S/O PT/INR S/O PT/INR S/O PT/INR EORDER S/O PT/INR Chief Complaint S/O PT/INR S/O PT/INR S/O PT/INR EORDER S/O PT/INR PROLIA Chief Complaint S/O PT/INR S/O PT/INR EORDER S/O PT/INR PROLIA 6 M FU S/O PT/INR Reason for Visit Lung nodule Nicotine dependence, cigarettes, in remission COPD (chronic obstructive pulmonary disease) Chief Complaint S/O PT/INR EORDER S/O PT/INR PROLIA 6 M FU S/O PT/INR 2 WK FU Reason for Visit Lung nodule Nicotine dependence, cigarettes, in remission COPD (chronic obstructive pulmonary disease) Barretts esophagus Chief Complaint S/O PT/INR EORDER S/O PT/INR PROLIA 6 M FU S/O PT/INR 2 WK FU TOES Reason for Visit Lung nodule Nicotine dependence, cigarettes, in remission COPD (chronic obstructive pulmonary disease) Barretts esophagus Chief Complaint S/O PT/INR PROLIA 6 M FU S/O PT/INR 2 WK FU TOES S/O PT/INR Reason for Visit Lung nodule Nicotine dependence, cigarettes, in remission COPD (chronic obstructive pulmonary disease) Barretts esophagus Chief Complaint 6 M FU S/O PT/INR 2 WK FU TOES S/O PT/INR 1 Y FU S/O PT/INR Reason for Visit Lung nodule Nicotine dependence, cigarettes, in remission COPD (chronic obstructive pulmonary disease) Barretts esophagus Osteoporosis Chief Complaint S/O PT/INR 2 WK FU TOES S/O PT/INR 1 Y FU S/O PT/INR S/O PT/INR Reason for Visit Barretts esophagus Osteoporosis Chief Complaint TOES S/O PT/INR 1 Y FU S/O PT/INR S/O PT/INR Reason for Visit Osteoporosis Chief Complaint TOES S/O PT/INR 1 Y FU S/O PT/INR S/O PT/INR PROLIA Reason for Visit Osteoporosis Chief Complaint S/O PT/INR 2 WK FU TOES S/O PT/INR 1 Y FU S/O PT/INR Reason for Visit Barretts esophagus Osteoporosis Chief Complaint Admit Date 6 M FU July 01, 2024 8 :46am PALP July 03, 2024 1 0:26am PALP July 03, 2024 1 0:55am S/O PT/INR - COPY PCP July 09 7:37am 6 M FU July 16, 2024 11:07am DAYTIME HYPERSOMNIA August 05, 2024 8: 07pm 3 M FU August 18, 2024 1 :59pm S/O PT/INR - COPY PCP August 26, 2024 7:08am sleep apnea with hypoxia August 26, 2 025 7:43pm S/O PT/INR - COPY PCP September 17 6:04am S/O PT/INR - COPY PCP October 13, 2024 9 :03am 3 M FU October 15, 2024 10: 37am Reason for Visit Admit Date Barretts esophagus July 01, 2024 8 :46am Daytime hypersomnia July 16, 2024 11:07am Hypoxia July 16, 2024 11:07am Lung nodule July 16, 2024 11:07am Pulmonary hypertension July 16 11:07am Stage 1 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 July 16, 2024 11:07am Barretts esophagus July 17, 2024 8:37am Atrial fibrillation and flutter August 18, 2024 1:59pm Essential hypertension August 18 1:59pm FPC (current) use of anticoagulant s August 18, 2024 1:59pm History of cardiac radiofrequency ablati on August 18, 2024 1:59pm Obstructive sleep apnea October 15, 2024 10:37am Thrush, oral October 15, 2024 10: 37am Hypoxia October 15, 2024 10: 37am Lung nodule October 15, 2024 10: 37am Pulmonary hypertension October 15, 2024 10:37am Stage 1 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 October 15, 2024 10:37am Chief Complaint Admit Date 3 M FU August 18, 2024 1 :59pm S/O PT/INR - COPY PCP August 26, 2024 7:08am sleep apnea with hypoxia August 26, 2 025 7:43pm S/O PT/INR - COPY PCP September 17 6:04am S/O PT/INR - COPY PCP October 13, 2024 9 :03am 3 M FU October 15, 2024 10: 37am S/O PT/INR - COPY PCP November 24, 2024 5 :59am PALPITATIONS November 25, 2024 2:2 8pm S/O PT/INR - COPY PCP December 09, 2024 6:0 6am DCCV Discussion December 09, 2024 8:48a m Reason for Visit Admit Date Atrial fibrillation and flutter August 18, 2024 1:59pm Essential hypertension August 18 1:59pm FPC (current) use of anticoagulant s August 18, 2024 1:59pm History of cardiac radiofrequency ablati on August 18, 2024 1:59pm Obstructive sleep apnea October 15, 2024 10:37am Thrush, oral October 15, 2024 10: 37am Hypoxia October 15, 2024 10: 37am Lung nodule October 15, 2024 10: 37am Pulmonary hypertension October 15, 2024 10:37am Stage 1 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 October 15, 2024 10:37am Chief Complaint Admit Date 3 M FU August 18, 2024 1 :59pm S/O PT/INR - COPY PCP August 26, 2024 7:08am sleep apnea with hypoxia August 26, 2 025 7:43pm S/O PT/INR - COPY PCP September 17 6:04am S/O PT/INR - COPY PCP October 13, 2024 9 :03am 3 M FU October 15, 2024 10: 37am S/O PT/INR - COPY PCP November 24, 2024 5 :59am PALPITATIONS November 25, 2024 2:2 8pm S/O PT/INR - COPY PCP December 09, 2024 6:0 6am DCCV Discussion December 09, 2024 8:48a m 1 Y FU/Prolia - B&B December 09, 2024 11:17 am Reason for Visit Admit Date Atrial fibrillation and flutter August 18, 2024 1:59pm Essential hypertension August 18 1:59pm 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 August 18, 2024 1:59pm History of cardiac radiofrequency ablati on August 18, 2024 1:59pm Obstructive sleep apnea October 15, 2024 10:37am Thrush, oral October 15, 2024 10: 37am Hypoxia October 15, 2024 10: 37am Lung nodule October 15, 2024 10: 37am Pulmonary hypertension October 15, 2024 10:37am Stage 1 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 October 15, 2024 10:37am Osteoporosis December 09, 2024 11:17 am Type 2 diabetes mellitus December 09, 2024 11:17am Chief Complaint Admit Date S/O PT/INR - COPY PCP September 17 6:04am S/O PT/INR - COPY PCP October 13, 2024 9 :03am 3 M FU October 15, 2024 10: 37am S/O PT/INR - COPY PCP November 24, 2024 5 :59am PALPITATIONS November 25, 2024 2:2 8pm DCCV Discussion December 09, 2024 8:48a m 1 Y FU/Prolia - B&B December 09, 2024 11:17 am S/O PT/INR - COPY PCP December 16, 2024 6:2 7am TACHYCARDIA December 23, 2024 9:56a m Reason for Visit Admit Date Obstructive sleep apnea October 15, 2024 10:37am Thrush, oral October 15, 2024 10: 37am Hypoxia October 15, 2024 10: 37am Lung nodule October 15, 2024 10: 37am Pulmonary hypertension October 15, 2024 10:37am Stage 1 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 October 15, 2024 10:37am Chronic anticoagulation December 09, 2024 8 :48am Atrial fibrillation and flutter November 8:48am Essential hypertension December 09, 2024 8: 48am Osteoporosis December 09, 2024 11:17 am Type 2 diabetes mellitus December 09, 2024 11:17am Chief Complaint Admit Date S/O PT/INR - COPY PCP September 17 6:04am S/O PT/INR - COPY PCP October 13, 2024 9 :03am 3 M FU October 15, 2024 10: 37am S/O PT/INR - COPY PCP November 24, 2024 5 :59am PALPITATIONS November 25, 2024 2:2 8pm DCCV Discussion December 09, 2024 8:48a m 1 Y FU/Prolia - B&B December 09, 2024 11:17 am S/O PT/INR - COPY PCP December 16, 2024 6:2 7am TACHYCARDIA December 23, 2024 9:56a m EKG check December 29, 2024 2:57p m Additional Source Comments (unrecognized sect ion and content) No Status Records FoundNo Status Records FoundNo Status Records Found INFORMATION SOURCE (unrecogn ized section and content) DATE CREATED AUTHOR 12/19/2018 [facility] DATE CREATED AUTHOR AUTHOR'S ORGANIZ ATION 12/06/2024 [facility] DATE CREATED AUTHOR AUTHOR'S ORGANIZ ATION 01/02/2025 [facility] Source Comments (unrecognize d section and content) In the event this informatio n is protected by the Federal Confidentiality of Alcohol and Drug Abuse Patient Records regulations: The Federal rules restrict any use of the information to criminally investigate or prosecute any alcohol or drug abuse patient.[facility] the event this information is protected by the Federal Confidentiality of Alcohol and Drug Abuse Patient Records regulations: The Federal rules restrict any use of the information to criminally investigate or prosecute any alcohol or drug abuse patient.[facility] the event this information is protected by the Federal Confidentiality of Alcohol and Drug Abuse Patient Records regulations: The Federal rules restrict any use of the information to criminally investigate or prosecute any alcohol or drug abuse patient.[facility] the event this information is protected by the Federal Confidentiality of Alcohol and Drug Abuse Patient Records regulations: The Federal rules restrict any use of the information to criminally investigate or prosecute any alcohol or drug abuse patient.[facility] the event this information is protected by the Federal Confidentiality of Alcohol and Drug Abuse Patient Records regulations: The Federal rules restrict any use of the information to criminally investigate or prosecute any alcohol or drug abuse patient.[facility] the event this information is protected by the Federal Confidentiality of Alcohol and Drug Abuse Patient Records regulations: The Federal rules restrict any use of the information to criminally investigate or prosecute any alcohol or drug abuse patient.[facility] the event this information is protected by the Federal Confidentiality of Alcohol and Drug Abuse Patient Records regulations: The Federal rules restrict any use of the information to criminally investigate or prosecute any alcohol or drug abuse patient.[facility] Reason for Visit (unrecogniz ed section and content) Reason Comments Appointment Reason Comments Follow Up A fib Reason Comments Results Reason Comments CARD Follow Up Annual Persistent a-fib Reason Comments CARD Follow Up Annual YEARLY PAF CHECK U P Goals (unrecognized section and content) Goals may be documented in a n alternate sectionGoals may be documented in an alternate sectionGoals may be documented in an alternate sectionGoals may be documented in an alternate sectionGoals may be documented in an alternate sectionGoals may be documented in an alternate sectionGoals may be documented in an alternate sectionGoals may be documented in an alternate sectionGoals may be documented in an alternate sectionGoals may be documented in an alternate sectionGoals may be documented in an alternate sectionGoals may be documented in an alternate sectionGoals may be documented in an alternate sectionGoals may be documented in an alternate sectionGoals may be documented in an alternate sectionGoals may be documented in an alternate sectionGoals may be documented in an alternate sectionGoals may be documented in an alternate sectionGoals may be documented in an alternate sectionGoals may be documented in an alternate sectionGoals may be documented in an alternate sectionGoals may be documented in an alternate sectionGoals may be documented in an alternate sectionGoals may be documented in an alternate sectionGoals may be documented in an alternate sectionGoals may be documented in an alternate section Care Teams (unrecognized sec tion and content) Team Status: Active Member Role Status Dates Adriel Khan MD Primary Care Provider Active Team Status: Inactive Member Role Status Dates Dr. Neeraj Daugherty MD Family Provider Active Sta rt: September 17, 2024 End: September 26, 2024 Franky Galloway CRYSTALLOGRAPHY TEACHER, CRYSTALLOGRAPHY TEACHER-C Attending Provider Active S tart: September 17, 2024 End: September 26, 2024 Franky Galloway CRYSTALLOGRAPHY TEACHER, CRYSTALLOGRAPHY TEACHER-C Referring Provider Active S tart: September 17, 2024 End: September 26, 2024 Dr. Rodríguez Portillo MD Other Provider Active Start: September 17, 2024 End: September 26, 2024 Adriel Khan MD Primary Care Provider Active St art: September 17, 2024 End: September 26, 2024 Adriel Khan MD Other Provider Active Start: [facility] 2024 End: September 26, 2024 Team Status: Inactive Member Role Status Dates Dr. Neeraj Daugherty MD Family Provider Active Sta rt: October 13, 2024 End: October 13, 2024 Franky Galloway CRYSTALLOGRAPHY TEACHER, CRYSTALLOGRAPHY TEACHER-C Attending Provider Active S tart: October 13, 2024 End: October 13, 2024 Franky Galloway CRYSTALLOGRAPHY TEACHER, CRYSTALLOGRAPHY TEACHER-C Referring Provider Active S tart: October 13, 2024 End: October 13, 2024 Dr. Rodríguez Portillo MD Other Provider Active Start: October 13, 2024 End: October 13, 2024 Adriel Khan MD Primary Care Provider Active St art: October 13, 2024 End: October 13, 2024 Adriel Khan MD Other Provider Active Start: [facility] 2024 End: October 13, 2024 Team Status: Inactive Member Role Status Dates Adriel Khan MD Primary Care Provider Active St art: October 15, 2024 End: October 15, 2024 Adriel Khan MD Referring Provider Active Start : October 15, 2024 End: October 15, 2024 Gladys Smith NP-C Attending Provider Active Start: October 15, 2024 End: October 15, 2024 Team Status: Inactive Member Role Status Dates Dr. Neeraj Daugherty MD Family Provider Active Sta rt: November 24, 2024 End: November 26, 2024 Franky Galloway CRYSTALLOGRAPHY TEACHER, CRYSTALLOGRAPHY TEACHER-C Attending Provider Active S tart: November 24, 2024 End: November 26, 2024 Franky Galloway CRYSTALLOGRAPHY TEACHER, CRYSTALLOGRAPHY TEACHER-C Referring Provider Active S tart: November 24, 2024 End: November 26, 2024 Dr. Rodríguez Portillo MD Other Provider Active Start: November 24, 2024 End: November 26, 2024 Adriel Khan MD Primary Care Provider Active St art: November 24, 2024 End: November 26, 2024 Adriel Khan MD Other Provider Active Start: 2024 End: November 26, 2024 Team Status: Inactive Member Role Status Dates Adriel Khan MD Primary Care Provider Active St art: November 25, 2024 End: November 25, 2024 Dr. Gagandeep Arechiga DO Attending Provider Active Start: November 25, 2024 End: November 25, 2024 Dr. Gagandeep Arechiga DO Emergency Provider Active Start: November 25, 2024 End: November 25, 2024 Team Status: Inactive Member Role Status Dates Adriel Khan MD Primary Care Provider Active St art: December 09, 2024 End: December 09, 2024 Adriel Khan MD Referring Provider Active Start : December 09, 2024 End: December 09, 2024 TAMIA Perez Attending Provider Active St art: December 09, 2024 End: December 09, 2024 Team Status: Inactive Member Role Status Dates Adriel Khan MD Primary Care Provider Active St art: December 09, 2024 End: December 09, 2024 Adriel Khan MD Referring Provider Active Start : December 09, 2024 End: December 09, 2024 Dr. Rodríguez Portillo MD Attending Provider Active Sta rt: December 09, 2024 End: December 09, 2024 Team Status: Active Member Role Status Dates Dr. Neeraj Daugherty MD Family Provider Active Sta rt: December 16, 2024 Franky Galloway CRYSTALLOGRAPHY TEACHER, CRYSTALLOGRAPHY TEACHER-C Attending Provider Active S tart: December 16, 2024 Franky Galloway CRYSTALLOGRAPHY TEACHER, CRYSTALLOGRAPHY TEACHER-C Referring Provider Active S tart: December 16, 2024 Dr. Rodríguez Portillo MD Other Provider Active Start: December 16, 2024 Adriel Khan MD Primary Care Provider Active St art: December 16, 2024 Adriel Khan MD Other Provider Active Start: Dc 2024 Team Status: Inactive Member Role Status Dates Adriel Khan MD Primary Care Provider Active St art: December 23, 2024 End: December 23, 2024 TAMIA Perez Attending Provider Active St art: December 23, 2024 End: December 23, 2024 TAMIA Perez Referring Provider Active St art: December 23, 2024 End: December 23, 2024 Team Status: Active Member Role Status Dates Dr. Neeraj Daugherty MD Family Provider Active Dr. Neeraj Daugherty MD Primary Care Provider Active Team Status: Inactive Member Role Status Dates Dr. Neeraj Daugherty MD Primary Care Provider, Referring Provider Active Angelita Macedo CRYSTALLOGRAPHY TEACHER, CRYSTALLOGRAPHY TEACHER-C Attending Provider Active Team Status: Inactive Member Role Status Dates Dr. Neeraj Daugherty MD Primary Care Provider, Referring Provider Active Priya Sung CRYSTALLOGRAPHY TEACHER, CRYSTALLOGRAPHY TEACHER-C Attending Provider Active Team Status: Active Member Role Status Dates Dr. Neeraj Daugherty MD Primary Care Provider, Referring Provider Active Dr. Pablo Pichardo DO Attending Provider, Other Prov ider Active Team Status: Inactive Member Role Status Dates Dr. Neerja Daugherty MD Primary Care Provider, Referring Provider Active Franky Galloway CRYSTALLOGRAPHY TEACHER, CRYSTALLOGRAPHY TEACHER-C Attending Provider Active Team Status: Inactive Member Role Status Dates Dr. Neeraj Daugherty MD Primary Care Provider, Referring Provider Active Dr. Pablo Pichardo DO Attending Provider Active Team Status: Inactive Member Role Status Dates Dr. Neeraj Daugherty MD Primary Care Provider, Family Pr ovider Active Dr. Parveen Portillo MD Attending Provider, Referring Provider Active Team Status: Inactive Member Role Status Dates Dr. Neeraj Daugherty MD Primary Care Provider Active Dr. Armand Sierra MD Attending Provider, Emergency Provi izabel Active Team Status: Inactive Member Role Status Dates Dr. Neeraj Daugherty MD Primary Care Provider, Referring Provider Active Dr. Rodríguez Portillo MD Attending Provider Active Team Status: Active Member Role Status Dates Dr. Neeraj Daugherty MD Family Provider Active Jahaira Cerna DO Primary Care Provider Active Team Status: Inactive Member Role Status Dates Dr. Dwayne Anthony MD Attending Provider Active Jahaira Cerna DO Primary Care Provider, Referring Provider Active Team Status: Inactive Member Role Status Dates Dr. Neeraj Daugherty MD Primary Care Provider, Referring Provider Active Nirav Terry PA, PA Attending Provider Active Team Status: Inactive Member Role Status Dates Jahaira Cerna DO Primary Care Provider Active Dr. Dwayne Anthony MD Attending Provider, Referring Provider Active Team Status: Active Member Role Status Dates Jahaira Cerna DO Primary Care Provider Active Dr. Dwayne Anthony MD Attending Provider, Referring Provider Active Team Status: Inactive Member Role Status Dates Jahaira Cerna DO Primary Care Provider, Referring Provider Active Gisella Campos PA, PA-C Attending Provider Active Team Status: Inactive Member Role Status Dates Dr. Rodríguez Portillo MD Attending Provider, Referring Provi izabel Active Jahaira Cerna DO Primary Care Provider Active Tumbler Machine Operator Relationship Specialty Start Date End Date Neeraj Daugherty MD [address] [facility] [place], [place] [id number] PCP - General Family Medicine 12/04/22 Parveen Portillo [address] [facility] [address] [place] [address] Specialty Machine Quilt Stuffer Cardiology 05/03/16 Dwayne Wells MD [address] [facility] [address] [place] [address] Specialty Machine Quilt Stuffer Cardiology 05/16/17 Team Status: Inactive Member Role Status Dates Dr. Neeraj Daugherty MD Referring Provider Active Dr. Alexander Calzada MD Attending Provider Active Jahaira Cerna DO Primary Care Provider Active Team Status: Inactive Member Role Status Dates Angelita Macedo CRYSTALLOGRAPHY TEACHER, CRYSTALLOGRAPHY TEACHER-C Attending Provider, Referrin g Provider Active Jahaira Cerna DO Primary Care Provider Active Team Status: Inactive Member Role Status Dates Dr. Neeraj Daugherty MD Family Provider Active Jahaira Cerna DO Primary Care Provider Active Franky Galloway CRYSTALLOGRAPHY TEACHER, CRYSTALLOGRAPHY TEACHER-C Attending Provider, Referring Pro vider Active Team Status: Inactive Member Role Status Dates Dr. Neeraj Daugherty MD Referring Provider Active Dionna Self PA, PA Attending Provider Active Jahaira Cerna DO Primary Care Provider Active Team Status: Inactive Member Role Status Dates Dr. Neeraj Daugherty MD Referring Provider Active Priya Sung CRYSTALLOGRAPHY TEACHER, CRYSTALLOGRAPHY TEACHER-C Attending Provider Active Jahaira Cerna , DO Primary Care Provider Active Team Status: Active Member Role Status Dates Dr. Neeraj Daugherty MD Family Provider Active Jahaira Cerna , DO Primary Care Provider Active Franky Galloway CRYSTALLOGRAPHY TEACHER, CRYSTALLOGRAPHY TEACHER-C Attending Provider, Referring Pro vider Active Team Status: Inactive Member Role Status Dates Jahaira Cerna , DO Primary Care Provider Active Dr. Sadi Daniel MD Emergency Provider Active Team Status: Inactive Member Role Status Dates Jahaira Cerna , DO Primary Care Provider Active Priya Sung CRYSTALLOGRAPHY TEACHER, CRYSTALLOGRAPHY TEACHER-C Attending Provider, Referrin g Provider Active Team Status: Inactive Member Role Status Dates Jahaira Cerna , DO Primary Care Provider Active Dr. Sadi Daniel MD Attending Provider, Emergency Provider Active Team Status: Inactive Member Role Status Dates Jahaira Cerna , DO Primary Care Provi izabel, Attending Provider, Referring Provider Active Team Status: Inactive Member Role Status Dates Jahaira Cerna , DO Primary Care Provider, Referring Provider Active Dr. Dash Uriarte , DO Attending Provider Active Team Status: Active Member Role Status Dates Jahaira Cerna , DO Primary Care Provider, Referring Provider Active Dr. Pablo Pichardo , Attending Provider, Other Prov ider Active Team Status: Inactive Member Role Status Dates Jahaira Cerna , DO Primary Care Provider, Referring Provider Active Dr. Pablo Pichardo , DO Attending Provider Active Team Status: Inactive Member Role Status Dates Jahaira Cerna , DO Primary Care Provider Active Dr. Malcolm Lee , DO Emergency Provider Active Team Status: Active Member Role Status Dates Jahaira Cerna , DO Primary Care Provider Active Dr. Pablo Pichardo , Attending Provid er, Referring Provider, Other Provider Active Team Status: Inactive Member Role Status Dates Jahaira Cerna , DO Primary Care Provider Active Dr. Pablo Pichardo , Attending Provider, Referring Provider Active Team Status: Inactive Member Role Status Dates Jahaira Cerna , DO Primary Care Provider Active Dr. Malcolm Lee , DO Attending Provider, Emergency Provide r Active Team Status: Inactive Member Role Status Dates Dr. Neeraj Daugherty MD Referring Provider Active Dr. Rodríguez Portillo MD Attending Provider Active Jahaira Cerna DO Primary Care Provider Active Team Status: Active Member Role Status Dates Dr. Neeraj Daugherty MD Family Provider Active Jahaira Cerna , DO Primary Care Provider Active Franky Galloway CRYSTALLOGRAPHY TEACHER, CRYSTALLOGRAPHY TEACHER-C Attending Provider, Referring Pro vider Active Dr. Rodríguez Portillo MD Other Provider Active Team Status: Inactive Member Role Status Dates Dr. Neeraj Daugherty MD Family Provider Active Jahaira Cerna , DO Primary Care Provider Active Franky Galloway CRYSTALLOGRAPHY TEACHER, CRYSTALLOGRAPHY TEACHER-C Attending Provider, Referring Pro vider Active Dr. Rodríguez Portillo MD Other Provider Active Team Status: Inactive Member Role Status Dates Jahaira Cerna , DO Primary Care Provider Active Dr. Rodríguez Portillo MD Attending Provider, Referring Provi izabel Active Tumbler Machine Operator Relationship Specialty Start Date End Date Adriel Khan MD [address] [place], [place] [id number] PCP - General Internal Medicine 12/06/23 Dwayne Wells MD [address] [facility] [address] [place] [id number] Specialty Machine Quilt Stuffer Cardiology 05/16/17 Group, [facility] [address] [place] [address] Specialty Machine Quilt Stuffer Cardiology 12/05/23 Tray Santiago MD [address] [place] [address] Specialty Machine Quilt Stuffer Cardiology 12/06/23 Pablo Pichardo DO [address] [place] [address] Specialty Machine Quilt Stuffer Gastroenterology 12/06/23 Tumbler Machine Operator Relationship Specialty Start Date End Date Adriel Khan MD [address] [place] [address] PCP - General Internal Medicine 12/06/23 Dwayne Wells MD [address] [place] [address] Specialty Machine Quilt Stuffer Cardiology 05/16/17 [facility], [place] [facility] [address] [place] [address] Specialty Machine Quilt Stuffer Cardiology 12/05/23 Tray Santiago MD [address] [place] [address] Specialty Machine Quilt Stuffer Cardiology 12/06/23 Pablo Pichardo DO [address] [place] [address] Specialty Machine Quilt Stuffer Gastroenterology 12/06/23 Tumbler Machine Operator Relationship Specialty Start Date End Date Adriel Khan MD [address] [place] [address] PCP - General Internal Medicine 12/06/23 Dwayne Wells MD [address] [place] [address] Specialty Machine Quilt Stuffer Cardiology 05/16/17 [facility], [place] [facility] [address] [place] [address] Specialty Machine Quilt Stuffer Cardiology 12/05/23 Tray Santiago MD [address] [place] [address] Specialty Machine Quilt Stuffer Cardiology 12/06/23 Pablo Pichardo DO [address] [place] [address] Specialty Machine Quilt Stuffer Gastroenterology 12/06/23 Team Status: Active Member Role Status Dates Dr. Neeraj Daugherty MD Family Provider Active Adriel Khan MD Primary Care Provider Active Team Status: Inactive Member Role Status Dates Adriel hKan MD Primary Care Provider Active St art: July 01, 2024 End: July 01, 2024 Adriel Khan MD Referring Provider Active Start : July 01, 2024 End: July 01, 2024 Dr. Pablo Pichardo DO Attending Provider Active Start: July 01, 2024 End: July 01, 2024 Team Status: Inactive Member Role Status Dates Adriel Khan MD Primary Care Provider Active St art: July 03, 2024 End: July 03, 2024 Dionna CANTRELL PA Attending Provider Active Start: July 03, 2024 End: July 03, 2024 Dionna CANTRELL PA Referring Provider Active Start: July 03, 2024 End: July 03, 2024 Team Status: Active Member Role Status Dates Adriel Khan MD Primary Care Provider Active St art: July 03, 2024 Dr. Tray Santiago MD Attending Provider Active S tart: July 03, 2024 Dinona CANTRELL PA Referring Provider Active Start: July 03, 2024 Team Status: Inactive Member Role Status Dates Dr. Neeraj Daugherty MD Family Provider Active Sta rt: July 09, 2024 End: July 09, 2024 Franky Galloway CRYSTALLOGRAPHY TEACHER, CRYSTALLOGRAPHY TEACHER-C Attending Provider Active S tart: July 09, 2024 End: July 09, 2024 Franky Galloway CRYSTALLOGRAPHY TEACHER, CRYSTALLOGRAPHY TEACHER-C Referring Provider Active S tart: July 09, 2024 End: July 09, 2024 Dr. Rodríguez Portillo MD Other Provider Active Start: July 09, 2024 End: July 09, 2024 Adriel Khan MD Primary Care Provider Active St art: July 09, 2024 End: July 09, 2024 Adriel Khan MD Other Provider Active Start: 2023 End: July 09, 2024 Team Status: Inactive Member Role Status Dates Adriel Khan MD Primary Care Provider Active St art: July 16, 2024 End: July 16, 2024 Adriel Khan MD Referring Provider Active Start : July 16, 2024 End: July 16, 2024 Angelita Macedo CRYSTALLOGRAPHY TEACHER, CRYSTALLOGRAPHY TEACHER-C Attending Provider Active Start: July 16, 2024 End: July 16, 2024 Team Status: Inactive Member Role Status Dates Adriel Khan MD Primary Care Provider Active St art: July 17, 2024 End: July 17, 2024 Adriel Khan MD Referring Provider Active Start : July 17, 2024 End: July 17, 2024 Dr. Pablo Pichardo DO Attending Provider Active Start: July 17, 2024 End: July 17, 2024 Team Status: Active Member Role Status Kaela Khan MD Primary Care Provider Active St art: July 17, 2024 Adriel Khan MD Referring Provider Active Start : July 17, 2024 Dr. Pablo Pichardo DO Attending Provider Active Start: July 17, 2024 Dr. Pablo Pichardo DO Other Provider Active St art: July 17, 2024 Team Status: Inactive Member Role Status Kaela Khan MD Primary Care Provider Active St art: August 05, 2024 End: August 05, 2024 Angelita Macedo CRYSTALLOGRAPHY TEACHER, CRYSTALLOGRAPHY TEACHER-C Attending Provider Active Start: August 05, 2024 End: August 05, 2024 Angelita Macedo CRYSTALLOGRAPHY TEACHER, CRYSTALLOGRAPHY TEACHER-C Referring Provider Active Start: August 05, 2024 End: August 05, 2024 Team Status: Inactive Member Role Status Dates Adriel Khan MD Primary Care Provider Active St art: August 18, 2024 End: August 18, 2024 Adriel Khan MD Referring Provider Active Start : August 18, 2024 End: August 18, 2024 Dionna Self PA, PA Attending Provider Active Start: August 18, 2024 End: August 18, 2024 Team Status: Inactive Member Role Status Dates Dr. Neeraj Daugherty MD Family Provider Active Sta rt: August 26, 2024 End: August 26, 2024 Franky Galloway CRYSTALLOGRAPHY TEACHER, CRYSTALLOGRAPHY TEACHER-C Attending Provider Active S tart: August 26, 2024 End: August 26, 2024 Franky Galloway CRYSTALLOGRAPHY TEACHER, CRYSTALLOGRAPHY TEACHER-C Referring Provider Active S tart: August 26, 2024 End: August 26, 2024 Dr. Rodríguez Portillo MD Other Provider Active Start: August 26, 2024 End: August 26, 2024 Adriel Khan MD Primary Care Provider Active St art: August 26, 2024 End: August 26, 2024 Adriel Khan MD Other Provider Active Start: Srini boss 2024 End: August 26, 2024 Team Status: Inactive Member Role Status Dates Adriel Khan MD Primary Care Provider Active St art: August 26, 2024 End: August 26, 2024 Angelita Macedo CRYSTALLOGRAPHY TEACHER, CRYSTALLOGRAPHY TEACHER-C Attending Provider Active Start: August 26, 2024 End: August 26, 2024 Angelita Macedo CRYSTALLOGRAPHY TEACHER, CRYSTALLOGRAPHY TEACHER-C Referring Provider Active Start: August 26, 2024 End: August 26, 2024 Tumbler Machine Operator Relationship Specialty Start Date End Date Adriel Khan MD [address] [place], [place] [id number] PCP - General Internal Medicine 12/06/23 Dwayne Wells MD [address] [place] [id number] Specialty Machine Quilt Stuffer Cardiology 05/16/17 Tray Santiago MD [address] [facility] [address] [place] [address] Specialty Machine Quilt Stuffer Cardiology 12/06/23 Pablo Pichardo DO [address] [facility] [address] [place], [place] [id number] Specialty Machine Quilt Stuffer Gastroenterology 12/06/23 Dash Uriarte [address] [facility] [place] [address] Specialty Machine Quilt Stuffer Pulmonary Disease 12/04/24 Franky Galloway APRN.MARKETING PROPOSAL SPECIALIST [address] [facility] [address] [place], [place] [id number] Nurse Practitioner Cardiology 12/04/24 Team Status: Active Member Role Status Dates Dr. Neeraj Daugherty MD Family Provider Active Sta rt: December 09, 2024 Franky Galloway CRYSTALLOGRAPHY TEACHER, CRYSTALLOGRAPHY TEACHER-C Attending Provider Active S tart: December 09, 2024 Franky Galloway CRYSTALLOGRAPHY TEACHER, CRYSTALLOGRAPHY TEACHER-C Referring Provider Active S tart: December 09, 2024 Dr. Rodríguez Portillo MD Other Provider Active Start: December 09, 2024 Adriel Khan MD Primary Care Provider Active St art: December 09, 2024 Adriel Khan MD Other Provider Active Start: Ma y 2024 Team Status: Inactive Member Role Status Dates Dr. Neeraj Daugherty MD Family Provider Active Sta rt: December 16, 2024 End: December 16, 2024 Franky Galloway CRYSTALLOGRAPHY TEACHER, CRYSTALLOGRAPHY TEACHER-C Attending Provider Active S tart: December 16, 2024 End: December 16, 2024 Franky Galloway CRYSTALLOGRAPHY TEACHER, CRYSTALLOGRAPHY TEACHER-C Referring Provider Active S tart: December 16, 2024 End: December 16, 2024 Dr. Rodríguez Portillo MD Other Provider Active Start: December 16, 2024 End: December 16, 2024 Adriel Khan MD Primary Care Provider Active St art: December 16, 2024 End: December 16, 2024 Adriel Khan MD Other Provider Active Start: Ma y 2024 End: December 16, 2024 Team Status: Inactive Member Role Status Dates Adriel Khan MD Primary Care Provider Active St art: December 29, 2024 End: December 29, 2024 Adriel Khan MD Referring Provider Active Start : December 29, 2024 End: December 29, 2024 Dr. Lynn Medina MD Attending Provider Active Start: December 29, 2024 End: December 29, 2024 FOR RECORDS PERTAINING TO PATIENTS WHO ARE [...] BE BASED ON THE PRIMARY CLINICAL RECORDS. [employer] provides no warranty or guarantee of the accuracy or completeness of information in this document.
== END | disposition home or self-care (01) ==
LOC: CT 17:57
PROVIDERS: PCP Family Medicine; Referring Provider Nurse Practitioner Acute Care; Visit Provider Nurse Practitioner Acute Care
DX: Z12.2 Encounter for screening for malignant neoplasm of respiratory organs (principal); F17.210 Nicotine dependence, cigarettes, uncomplicated
CPT/HCPCS: 71271

== ENCOUNTER 2025-01-16 07:01 | Outpatient (RCR) | payer MEDICARE, MEDICAID, SELFPAY ==
[2024-12-28 21:34] VITALS: BMI 24.1
[2025-01-07 06:45] LABS: International Normalized Ratio 1.7; Prothrombin Time (Protime)PT. 20.5 SECONDS (11.7-14.9)
[2025-01-16 10:11] LABS: Prothrombin Time (Protime)PT. 22.7 SECONDS (11.7-14.9)
== END 2025-01-16 18:00 | disposition home or self-care (01) ==
LOC: LAB 07:01
PROVIDERS: Family Provider Family Medicine; PCP Family Medicine; Referring Provider Nurse Practitioner Family; Visit Provider Nurse Practitioner Family
DX: Z79.01 Long term (current) use of anticoagulants
CPT/HCPCS: 36415; 85610

== ENCOUNTER 2025-02-16 08:21 | Outpatient (RCR) | payer MEDICARE, MEDICAID, SELFPAY ==
[2025-02-02 10:45] LABS: Prothrombin Time (Protime)PT. 21.6 SECONDS (11.7-14.9)
[2025-02-16 10:59] LABS: Prothrombin Time (Protime)PT. 27.1 SECONDS (11.7-14.9)
== END 2025-02-26 18:00 | disposition home or self-care (01) ==
LOC: MTLAB 08:21
PROVIDERS: Family Provider Family Medicine; PCP Family Medicine; Referring Provider Nurse Practitioner Family; Visit Provider Nurse Practitioner Family
DX: Z79.01 Long term (current) use of anticoagulants
CPT/HCPCS: 36415; 85610

== ENCOUNTER → 2025-02-17 | Outpatient (CLI) | payer MEDICARE, MEDICAID, SELFPAY ==
[2025-02-17 15:29] LABS: Hematocrit 43.2 % (40-54); Hemoglobin 14.2 g/dL (13.0-16.5); Mean Corp Hgb Conc 32.9 g/dL (32-36); Mean Corpuscular Volume 90.0 fL (80-94); Mean Platelet Vol. 10.0 fl (6.2-12.0); Platelet Count 342 K/mm3 (150-450); RBC Distribution Width CV 15.2 % (11.6-14.6); RBC Distribution Width SD 50.1 fl (35.1-43.9); Red Blood Count 4.80 M/mm3 (4.6-6.2); White Blood Count 9.8 K/mm3 (4.4-11.0)
[2025-02-17 16:48] LABS: AST(SGOT) 24 U/L (<=37); Alanine Aminotransfer ALT/SGPT 21 U/L (<=46); Albumin, Serum 4.4 g/dL (3.4-4.8); Alkaline Phosphatase 65 U/L (40-129); Anion Gap 13 (5-15); BUN 11 mg/dL (4-19); BUN/Creat Ratio 10.1 RATIO (10-20); Calcium,Total 9.5 mg/dL (7.6-11.0); Carbon Dioxide 24.0 mmol/L (21.0-32.0); Chloride 100 mmol/L (98-108); Globulin 3.3 g/dL (2.2-4.2); Glucose 86 mg/dL (70-99); Potassium 4.3 mmol/L (3.3-5.1); Pro- Brain NATRIURETIC PEPTIDE 60 pg/mL (<=900)
== END | disposition home or self-care (01) ==
LOC: MFPLAB 11:21
PROVIDERS: Family Medicine; PCP Family Medicine; Referring Provider Family Medicine; Visit Provider Family Medicine
DX: M79.89 Other specified soft tissue disorders (principal); Z79.890 Hormone replacement therapy
CPT/HCPCS: 36415; 80053; 83880; 84443; 85027

== ENCOUNTER → 2025-02-20 | Outpatient (CLI) | payer MEDICARE, MEDICAID, SELFPAY ==
[2025-02-20 13:20] LABS: PSA,Total - Annual Screen 1.89 ng/mL (0.02-4.00)
== END | disposition home or self-care (01) ==
LOC: MFPLAB 10:02
PROVIDERS: PCP Family Medicine
DX: Z12.5 Encounter for screening for malignant neoplasm of prostate (principal); Z13.1 Encounter for screening for diabetes mellitus
CPT/HCPCS: 36415; 83036; 84153; G0103

== ENCOUNTER 2025-03-18 15:00 | Outpatient (RCR) | payer MEDICARE, MEDICAID, SELFPAY ==
[2025-03-18 18:40] LABS: Prothrombin Time (Protime)PT. 28.1 SECONDS (11.7-14.9)
== END 2025-03-18 18:00 | disposition home or self-care (01) ==
LOC: MTLAB 15:00
PROVIDERS: Family Provider Family Medicine; PCP Family Medicine; Referring Provider Nurse Practitioner Family; Visit Provider Nurse Practitioner Family
DX: I48.0 Paroxysmal atrial fibrillation (principal); Z79.01 Long term (current) use of anticoagulants
CPT/HCPCS: 36415; 85610

== ENCOUNTER 2025-04-23 19:11 | Emergency (ER) | payer MEDICARE, MEDICAID, SELFPAY ==
[2025-04-23 19:11] VITALS: BP 130/72; PULSE 104; RESP 18; TEMP 36.8; O2SAT 98; BMI 27.4
[2025-04-23 20:06] VITALS: BP 114/85; BP 124/87; BP 127/92; PULSE 102; PULSE 103
--- NOTE | 2025-04-23 20:06 | EKG12_ITS ---
Test Reason : DYSRHYTHMIA Blood Pressure : */* mmHG Vent. Rate : 104 BPM Atrial Rate : 104 BPM P-R Int : 152 ms QRS Dur : 74 ms QT Int : 348 ms P-R-T Axes : * 62 -8 degrees QTcB Int : 457 ms Sinus tachycardia Septal infarct (cited on or before 09-Aug-2014) Abnormal ECG Confirmed by LEANNA REIS, GIRISH ([id number]), loan expeditor JOSE PEACE ([id number]) on 04/24/2025 11:00:39 AM Referred By: ER Confirmed By: GIRISH RAM MD
--- OUTSIDE RECORDS SUMMARY | 2025-04-23 20:07 | XMS RPT_ITS | CCD ---
Author Organization 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 Neeraj Daugherty Primary Care Provider Dr. Neeraj Daugherty Referring Provider Remington CHANGE PERSON, CHANGE PERSON-C Angelita Attending Provider TAMIA Esquivel Attending Provider Dr. Rodríguez Portillo Attending Provider Dr. Dash Uriarte Attending Provider TAMIA Matt Attending Provider Nilesh CHANGE PERSON, CHANGE PERSON-C Franky Lewis Attending Provider Dr. Neeraj Daugherty Primary Care Provider Dr. Neeraj Daugherty Referring Provider Dr. Neeraj Daugherty Primary Care Provider Dr. Neeraj Daugherty Referring Provider Dr. Neeraj Daugherty Primary Care Provider Dr. Neeraj Daugherty Referring Provider TAMIA Matt Attending Provider Ana Lilia EVANS, CHANGE PERSON-C Priya Merritt Attending Provider Dr. Neeraj Daugherty Primary Care Provider Dr. Neeraj Daugherty Referring Provider Dr. Neeraj Daugherty Primary Care Provider Dr. Neeraj Daugherty Referring Provider Ana Lilia CHANGE PERSON, CHANGE PERSON-C Priya Merritt Attending Provider Macedo CHANGE PERSON, CHANGE PERSON-Rubin Goldstein Attending Provider [phone] Dr. Pablo Pichardo Attending Provider Kylee, Dr. Shah Other Provider Dr. Neeraj Daugherty Primary Care Provider Dr. Neeraj Daugherty Referring Provider Ana Lilia CHANGE PERSON, CHANGE PERSON-C Priya Merritt Attending Provider Roof CHANGE PERSON, CHANGE PERSON-C Franky eLwis Attending Provider Dr. Neeraj Daugherty Primary Care Provider Dr. Neeraj Daugherty Referring Provider Ana Lilia CHANGE PERSON, CHANGE PERSON-C Priya Merritt Attending Provider Roof CHANGE PERSON, CHANGE PERSON-C Franky Lewis Attending Provider Dr. Rodríguez Portillo Attending Provider Dr. Neeraj Daugherty Primary Care Provider Dr. Neeraj Daugherty Referring Provider TAMIA Matt Attending Provider Dr. Dwayne Anthony Attending Provider DO Jahaira Cerna Primary Care Provider DO Jahaira Cerna Referring Provider Dr. Dwayne Anthony Referring Provider ROLANDO Rivera Attending Provider Parveen Portillo Unavailable Dwayne Wells MD Unavailable Neeraj Daugherty MD Primary Care Provider [phone] Dr. Neeraj Daugherty Primary Care Provider Dr. Neeraj Daugherty Referring Provider Dr. Alexander Calzada Attending Provider Ana Lilia CHANGE PERSON, CHANGE PERSON-C Pryia Merritt Attending Provider Aramis CANTRELL, PA Dionna [...] Provider DO Jahaira Cerna Referring Provider Group, [facility] Unavailable Unavailable Adriel Khan MD Primary Care Provider Adriel Khan MD Referring Provider Dr. Pablo Pichardo DO Attending Provider Dionna Mesa Attending Provider Dionna Mesa Referring Provider Dr. Tray Santiago MD Attending Provider Dr. Neeraj Daugherty MD Family Provider Unavailable Nilesh EVANS-Franky Conklin Attending Provider Franky Gomez Referring Provider Dr. Rodríguez Portillo MD Other Provider Adriel Khan MD Other Provider Remington EVANS-CAngelita Attending Provider Dr. Pablo Pichardo DO Other Provider Remington EVANS-CAngelita Referring Provider Luis EVANS-CGladys Attending Provider Dash Uriarte Unavailable Nilesh DEMONSTRATOR SALES.Franky PATTON Unavailable Adriel Khan MD Primary Care Provider Adriel Khan MD Referring Provider Dionna Mesa Attending Provider Willow REIS, Dr. Pickard Family Provider Unavailable Roof CHANGE PERSON-C, Franky Lewis Attending Provider Roof CHANGE PERSON-C, Franky H Referring Provider Dr. Rodríguez Portillo MD Other Provider Glendy REIS, Adriel Other Provider Macedo CHANGE PERSON-C, Angelita Attending Provider Macedo CHANGE PERSON-C, Angelita Referring Provider Dr. Gagandeep Arechiga DO Attending Provider Dr. Gagandeep Arechiga DO Emergency Provider [phone] Lawson Giron Attending Provider Dr. Rodríguez Portillo MD Attending Provider Willow REIS, Dr. Neeraj Watts Provider Unavailable Roof CHANGE PERSON-C, Franky Lewis Attending Provider Nilesh CHANGE PERSON-C, Franky Lewis Referring Provider Dr. Rodríguez Portillo MD Other Provider Adriel Khan MD Primary Care Provider Adriel Khan MD Other Provider Glendy REIS, Adriel Referring Provider Lawson Giron Referring Provider Dr. Lynn Medina MD Attending Provider Dr. Lynn Medina MD Attending Provider Dr. Pablo Pichardo DO Attending Provider Dr. Pablo Pichardo DO Other Provider [phone] Remington CHANGE PERSON-C, Angelita Attending Provider Macedo CHANGE PERSON-C, Angelita Referring Provider ADRIEL KHAN Primary Care Unavailable PAMELAOSMAN PATELRIL S Referring Unavailable DWAYNE WELLS Attending Unavailable Willow REIS, Dr. Pickard Family Provider Unavailable Roof CHANGE PERSON-C, Franky H Attending Provider Roof CHANGE PERSON-C, Franky H Referring Provider King SMILEY, Dr. Arreguin Other Provider Glendy REIS, Adriel Primary Care Provider Adriel Khan MD Other Provider Willow REIS, Dr. Pickard Family Provider Unavailable Roof CHANGE PERSON-C, Franky Lewis Attending Provider Roof CHANGE PERSON-C, Franky H Referring Provider King SMILEY, Dr. Arreguin Other Provider Glendy REIS, Adriel Primary Care Provider Glendy REIS, Adriel Other Provider Hawk ABDULLAHI, Dr. Donis Attending Provider Dr. Gagandeep Arechiga DO Emergency Provider Adriel Khan MD Referring Provider Lawson Giron Attending Provider King SMILEY, Dr. Arreguin Attending Provider Lawson Giron Referring Provider Adam REIS, Dr. Bailey Attending Provider Dr. Pablo Pichardo DO Attending Provider Dr. Pablo Pichardo DO Other Provider Remington CHANGE PERSON-C, Angelita Attending Provider Remington CHANGE PERSON-C, Angelita Referring Provider Luis CHANGE PERSON-C, Gladys Merritt Attending Provider Adriel Khan MD Attending Provider McMorrow CHANGE PERSON-C, Jake Attending Provider Dionna Mesa Attending Provider Adriel Khan MD Primary Care Provider Adriel Khan MD Referring Provider Willow REIS, Dr. Pickard Family Provider Unavailable Roof CHANGE PERSON-C, Franky Lewis Attending Provider Roof CHANGE PERSON-C, Franky Lewis Referring Provider Dr. Rodríguez Portillo MD Other Provider Adriel Khan MD Other Provider Luis CHANGE PERSON-C, Gladys Merritt Attending Provider Adriel Khan MD [facility] Attending Provider Dionna Mesa Attending Provider Glendy REIS, Adriel Primary Care Physician Lawson Giron Attending Physician Adam REIS, Dr. Bailey Attending Physician Adriel Khan MD Referring Provider Dr. Pablo Pichardo DO Attending Physician Kylee ABDULLAHI, Dr. Shah Nurse Practitioner Remington CHANGE PERSON-CAngelita Attending Physician Willow REIS, Dr. Pickard Primary Care Physician Unav ailable Roof CHANGE PERSON-C, Franky Lewis Attending Physician Nilesh CHANGE PERSON-C, Franky Lewis Referring Provider King SMILEY, Dr. Arreguin Nurse Practitioner Adriel Khan MD Nurse Practitioner Luis CHANGE PERSON-C, Gladys Merritt Attending Physician Adriel Khan MD [facility]ake Attending Physician Dionna Mesa Attending Physician Glendy, Chalon Primary Care Unavailable Rodríguez Portillo Consulting Unavailable Nilesh CHANGE PERSON, Franky Lewis Referring Unavailable Roof CHANGE PERSON, Franky Lewis Attending Unavailable Glendy, Chalon Consulting Unavailable Lawson Miller Attending Unavailable Lawson Miller Referring Unavailable Glendy, Chalon Primary Care Unavailable Remington CHANGE PERSON, Angelita Referring Unavailable Remington CHANGE PERSON, Angelita Attending Unavailable Glendy, Chalon Primary Care Unavailable Pablo Pichardo Attending Unavailable Glendy, Chalon Referring Unavailable Glendy, Chalon Primary Care Unavailable Dobson, Francisca Admitting Unavailable Koram, Jess Felicia Attending Unavailable Glendy, Chalon Primary Care Unavailable Dobson, Francisca Consulting Unavailable Dionicio Campbell Consulting Unavailable Koram, Jess Felicia Consulting Unavailable Sanjeev Osborn Consulting Unavailable Rey Garcia Consulting Unavailable Segun Lin Consulting Unavailable Dash Uriarte Consulting Unavailable Kannan Guerrero Consulting Unavailable Osvaldo Hopper Consulting Unavailable Aman Gillis Consulting Unavailable Sophy Patrick Consulting Unavailab Jayson David Consulting Unavailable Everett Peralta Consulting Unavailable Bertha Lu Consulting Unavailable AlJustina don Consulting Unavailable GunjanLoretta goodem Consulting Unavailable Jovany Juarez Consulting Unavailable Jair Sosa Consulting Unavailable Krystina Frias Consulting Unavailable Edward Syed Consulting Unavailable Haja Molina Consulting Unavailable Glendy, Chalon Primary Care Unavailable Aramis CANTRELL, Dionna Merritt Attending Unavail able Dionna Mesa Referring Unavail able Dobson, Francisca Consulting Unavailable Bronson Francisca Attending Unavailable Dobson, Francisca Admitting Unavailable Glendy, Chalon Primary Care Unavailable Glendy, Chalon Primary Care Unavailable Koram, Jess Felicia Referring Unavailable Peter Barba Attending Unavailable Macedo CHANGE PERSON, Angelita Referring Unavailable Macedo CHANGE PERSON, Angelita Attending Unavailable Glendy, Chalon Primary Care Unavailable Glendy, Chalon Primary Care Unavailable Gagandeep Arechiga Attending Unavailable Glendy, Chalon Primary Care Unavailable Macedo CHANGE PERSON, Angelita Attending Unavailable Macedo CHANGE PERSON, Angelita Referring Unavailable Glendy, Chalon Primary Care Unavailable Bandar, Rodríguez Consulting Unavailable Roof CHANGE PERSON, Franky H Referring Unavailable Roof CHANGE PERSON, Franky H Attending Unavailable Glendy, Chalon Consulting Unavailable Bandar, Rodríguez Consulting Unavailable Glendy, Chalon Primary Care Unavailable Roof CHANGE PERSON, Franky H Referring Unavailable Roof CHANGE PERSON, Franky H Attending Unavailable Glendy, Chalon Consulting Unavailable Macedo CHANGE PERSON, Angelita Referring Unavailable Glendy, Chalon Primary Care Unavailable Macedo CHANGE PERSON, Angelita Attending Unavailable Isaias Huber Attending Unavailabl e Glendy, Chalon Primary Care Unavailable Glendy, Chalon Primary Care Unavailable Bandar, Rodríguez Attending Unavailable Bandar, Rodríguez Referring Unavailable Glendy, Chalon Primary Care Unavailable Tray Santiago Attending Unavailable Tray Santiago Referring Unavailable Glendy, Chalon Primary Care Unavailable Bandar, Rodríguez Consulting Unavailable Roof CHANGE PERSON, Franky Lewis Attending Unavailable Roof CHANGE PERSON, Franky H Referring Unavailable Glendy, Chalon Consulting Unavailable Bandar, Rodríguez Consulting Unavailable Glendy, Chalon Primary Care Unavailable Roof CHANGE PERSON, Franky H Attending Unavailable Roof CHANGE PERSON, Franky H Referring Unavailable Bandar, Rodríguez Consulting Unavailable Glendy, Chalon Primary Care Unavailable Roof CHANGE PERSON, Franky H Attending Unavailable Roof CHANGE PERSON, Franky H Referring Unavailable Glendy, Chalon Primary Care Unavailable Lawson Miller Referring Unavailable Lynn Medina Attending Unavailable Glendy, Chalon Primary Care Unavailable Pamela, Tray Referring Unavailable Pamela, Tray Attending Unavailable Dash Uriarte Attending Unavailable Glendy, Chalon Primary Care Unavailable Pamela, Tray Attending Unavailable Dionna Mesa Referring Unavail able Glendy, Chalon Primary Care Unavailable Dash Uriarte Attending Unavailable Macedo CHANGE PERSON, Angelita Referring Unavailable Macedo CHANGE PERSON, Angelita Consulting Unavailable Gladys Smith Attending Unavailable Glendy, Chalon Referring Unavailable Glendy, Chalon Primary Care Unavailable Glendy, Chalon Referring Unavailable Glendy, Chalon Primary Care Unavailable Dionna Mesa Attending Unavail able Glendy, Chalon Referring Unavailable Glendy, Chalon Primary Care Unavailable Macedo CHANGE PERSON, Angelita Attending Unavailable Lgendy, Chalon Referring Unavailable Glendy, Chalon Primary Care Unavailable Ricarda Gomes Attending Unavailable Glendy, Chalon Referring Unavailable Glendy, Chalon Primary Care Unavailable Roof CHANGE PERSON, Franky H Attending Unavailable Glendy, Chalon Primary Care Unavailable Macedo CHANGE PERSON, Angelita Attending Unavailable Glendy, Chalon Referring Unavailable Koram, Jess Felicia Attending Unavailable Dionicio Campbell Consulting Unavailable Koram, Jess Felicia Consulting Unavailable Sanjeev Osborn Consulting Unavailable Rey Garcia Consulting Unavailable Segun Lin Consulting Unavailable Dash Uriarte Consulting Unavailable Kannan Guerrero Consulting Unavailable Osvaldo Hopper Consulting Unavailable Aman Gillis Consulting Unavailable Sophy Patrick Consulting UnavailJayson Holcomb Consulting Unavailable Everett Peralta Consulting Unavailable Bertha Lu Consulting Unavailable Justina Fallon Consulting Unavailable Asael Hollins Consulting Unavailable Jovany Juarez Consulting Unavailable Jair Sosa Consulting Unavailable Krystina Frias Consulting Unavailable Kunal, Edwadr Consulting Unavailable Haja Molina Consulting Unavailable Koram, Jess Felicia Referring Unavailable Dash Uriarte Attending Unavailable Dionicio Campbell Attending Unavailable Friend, Pablo Consulting Unavailable Friend, Pablo Attending Unavailable Glendy, Chalon Primary Care Unavailable Glendy, Chalon Referring Unavailable Glendy, Chalon Referring Unavailable Glendy, Chalon Primary Care Unavailable Friend, Pablo Attending Unavailable Glendy, Chalon Referring Unavailable Glendy, Chalon Primary Care Unavailable Friend, Pablo Attending Unavailable Glendy, Chalon Referring Unavailable Glendy, Chalon Primary Care Unavailable Bandar, Rodríguez Attending Unavailable Glendy, Chalon Primary Care Unavailable Macedo CHANGE PERSON, Angelita Attending Unavailable Macedo CHANGE PERSON, Angelita Referring Unavailable Glendy, Chalon Referring Unavailable Glendy, Chalon Primary Care Unavailable Friend, Pablo Attending Unavailable Bandar, Rodríguez Consulting Unavailable Glendy, Chalon Primary Care Unavailable Roof CHANGE PERSON, Franky Lewis Referring Unavailable Roof CHANGE PERSON, Franky Lewis Attending Unavailable Glendy, Chalon Consulting Unavailable Bandar, Rodríguez Consulting Unavailable Glendy, Chalon Primary Care Unavailable Roof CHANGE PERSON, Franky Lewis Referring Unavailable Roof CHANGE PERSON, Franky Lewis Attending Unavailable Glendy, Chalon Consulting Unavailable Bandar, Rodríguez Consulting Unavailable Glendy, Chalon Primary Care Unavailable Roof CHANGE PERSON, Franky Lewis Referring Unavailable Roof CHANGE PERSON, Franky Lewis Attending Unavailable Glendy, Chalon Consulting Unavailable Glendy, Chalon Primary Care Unavailable Bandar, Rodríguez Consulting Unavailable Roof CHANGE PERSON, Franky Lewis Referring Unavailable Roof CHANGE PERSON, Franky Lewis Attending Unavailable Glendy, Chalon Consulting Unavailable Glendy, Chalon Referring Unavailable Glendy, Chalon Primary Care Unavailable Dionna Mesa Attending Unavail able Glendy, Chalon Referring Unavailable Glendy, Chalon Primary Care Unavailable Gladys Smith Attending Unavailable Glendy, Chalon Referring Unavailable Glendy, Chalon Primary Care Unavailable Lynn Medina Attending Unavailable Glendy, Chalon Referring Unavailable Lawson Miller Attending Unavailable Glendy, Chalon Primary Care Unavailable Glendy, Chalon Referring Unavailable Bandar, Rodríguez Attending Unavailable Glendy, Chalon Primary Care Unavailable Glendy, Chalon Referring Unavailable Glendy, Chalon Primary Care Unavailable Friend, Pablo Consulting Unavailable Friend, Pablo Attending Unavailable Glendy, Chalon Referring Unavailable Glendy, Chalon Primary Care Unavailable Dionna Mesa Attending Unavail able Glendy, Chalon Referring Unavailable Glendy, Chalon Primary Care Unavailable Gladys Smith Attending Unavailable Glendy, Chalon Primary Care Unavailable Bandar, Rodríguez Consulting Unavailable Roof CHANGE PERSON, Franky Lewis Referring Unavailable Roof CHANGE PERSON, Franky Lewis Attending Unavailable Glendy, Chalon Consulting Unavailable Glendy, Chalon Primary Care Unavailable McMorrow CHANGE PERSON, Jake Attending Unavailable Glendy, Walton Attending Unavailable Glendy, Chalon Referring Unavailable Glendy, Chalon Primary Care Unavailable Glendy, Chalon Primary Care Unavailable Bandar, Rodríguez Consulting Unavailable Roof CHANGE PERSON, Franky Lewis Referring Unavailable Roof CHANGE PERSON, Franky Lewis Attending Unavailable Glendy, Chalon Consulting Unavailable Bandar, Rodríguez Consulting Unavailable Glendy, Chalon Primary Care Unavailable Roof CHANGE PERSON, Franky Lewis Referring Unavailable Roof CHANGE PERSON, Franky Lewis Attending Unavailable Glendy, Chalon Consulting Unavailable Allergies Allergy Classification Reported Allergen(s) Allergy Type Date of Onset Reaction(s) Facility Chlorpheniramine / Pseudoephedrine (1 source) Chlorpheniramine / Pseudoephedrine Drug Allergy 08-25-19 16 [facility] Succinylcholine (1 source) Succinylcholine Drug Allergy 12-06-19 17 [facility] Work Phone: (8 sources) Chlorpheniramine / Pseudoephedrine; 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: [MED-HIST] Drug Allergy 08-25-19 16 [facility] (8 sources) Succinylcholine; 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: [SUCCINYLCHOLINE] Drug Allergy 12-06-19 17 [facility] (9 sources) Insect Extracts; 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: [INSECT EXTRACTS] Drug Allergy 08-25-19 16 [facility] (20 sources) Secobarbital; 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: [secobarbital sodium] Drug Allergy 10-28-19 22 Unknown [facility] (20 sources) venom-honey bee Allergy to substance 10-28-19 22 Anaphylaxis [facility] (7 sources) Secobarbital; 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: [SECOBARBITAL] Drug Allergy 10-31-19 19 Other: See [facility] Work Phone: (1 source) venom-honey bee Drug allergy (disorder) 04-16-20 25 [facility] Repository Medications Current Medications Medication Drug Class(es) Dates Sig (Normalized) Sig (Original) [id number] 200 actuat albuterol 0.09 mg/actuat metered dose inhaler (20 sources) beta2-Adrenergic Agonist Start: 03-04-2025 End: 03-16-2025 Albuterol Sulfate 90 mcg/actuation HFA aerosol inhaler Active 2 NMA INHALATION Q4H as needed for shortness of breath or wheezing 8.5 11 March 16, 2025 2:35pm Complies with drug therapy Start: 09-26-2023 take 2 puff(s) by in halation every four hours as needed for wheezing albuterol HFA (PROVENTIL HFA, VENTOLIN HFA) 90 mcg/actuation inhaler Inhale 2 Puffs as instructed every 4 hours as needed for wheezing/shortness of breath. 09/26/2023 Active Start: 12-14-2022 End: 03-04-2025 Albuterol Sulfate 90 mcg/act uation HFA aerosol inhaler Discontinued 2 NMA INHALATION EVERY 6 HOURS as needed for shortness of breath or wheezing 8.5 6 September 24, 2024 9:47am October 15, 2024 11:30am Start: 12-14-2022 End: 03-04-2025 Start: 12-14-2022 End: 06-18-2023 take 1 puff(s) by inhalation every six hours Albuterol Sulfate Active 2 PUFF INHALATION EVERY 6 HOURS 8.5 June 18, 2023 12:31pm Start: 06-24-2019 End: 06-24-2019 [...] as needed for Sob &/Or Wheezing 180 3 April 21, 2020 8:24am July 12, 2020 11:15am Start: 06-24-2019 End: 07-12-2020 albuterol 0.833 mg/ml / ipratropium bromide 0.167 mg/ml inhalation solution (20 sources) Anticholinergic, beta2-Adrenergic Agonist Start: 04-08-2025 Ipratropium-Albuterol 0.5 mg-3 mg(2.5 mg base)/3 mL solution for nebulization Active 3 mL INHALATION EVERY 6-8 HOURS as needed for shortness of breath or wheezing 180 11 April 08, 2025 10:37am Complies with drug therapy Start: 12-25-2024 End: 04-08-2025 take 1 mL by inhalation twice daily Ipratropium-Albuterol 0.5 mg-3 mg(2.5 mg base)/3 mL solution for nebulization Discontinued 3 mL INHALATION TWICE A DAY December 25, 2024 12:00am April 08, 2025 10:38am Start: 11-19-2024 take 1 dose by inhal ation three times daily as needed for wheezing ipratropium-albuterol (DUONEB) 0.5 mg-3 mg(2.5 mg base)/3 mL nebu inhale contents of one vial via nebulizer three times a day As Needed for shortness of breath or wheezing 11/19/2024 Active Start: 07-16-2024 End: 03-04-2025 take 1 mL by inhalation three times daily as needed for wheezing Ipratropium-Albuterol 0.5 mg-3 mg(2.5 mg base)/3 mL solution for nebulization Discontinued 3 mL INHALATION THREE TIMES A DAY as needed for shortness of breath or wheezing 180 11 September 24, 2024 9:47am October 15, 2024 11:30am Chronic obstructive pulmonary disease Chronic obstructive pulmonary disease, unspecified Start: 07-16-2024 End: 03-04-2025 amoxicillin 500 mg oral capsule (10 sources) Penicillin-class Antibacterial Start: 03-04-2025 take 4 capsules by mouth once Amoxicillin 500 mg capsule Active 2000 mg PO ONCE March 04, 2025 12:00am Complies with drug therapy Start: 11-30-2022 take 4 capsules by m outh every hour amoxicillin (AMOXIL) 500 mg capsule TAKE 4 CAPSULES BY MOUTH ONE HOUR PRIOR TO DENTAL APPOINTMENT. 11/30/2022 Active Comment on above: TAKE 4 CAPSULES BY M OUTH ONE HOUR PRIOR TO DENTAL APPOINTMENT. cholecalciferol, vitD3,/vit K2 (VITAMIN D3-VITAMIN K2) 250 mcg (10,000 unit)-45 mcg cap (6 sources) take 1 tablet by mouth once [...] syringe (20 sources) RANK Ligand Inhibitor Start: 10-13-19 End: 11-29-19 24 Denosumab (Prolia) 60 mg/mL syringe Active 60 mg SC every 6 months 1 November 29, 2023 8:34am osteoperosis Complies with drug therapy Comment on above: Inject 60 mg subcuta neously once every 6 months. 24 hr dilTIAZem hydrochloride 180 mg extended release oral capsule (20 sources) Calcium Channel John Start: 03-04-20 take 1 capsule by mouth twice daily, then take 1 capsule by mouth every twenty-four hours Diltiazem Hcl (Tiadylt Er) 180 mg capsule,extended release 24 hr Active 180 mg PO TWICE A DAY March 04, 2025 12:00am Complies with drug therapy Start: 11-06-2024 [address] [facility] every twelve hours dilTIAZem CD (CARDIZEM CD, CARTIA XT) 240 mg 24 hr capsule Take 1 capsule by mouth every 12 hours. 11/06/2024 Active Start: 08-18-2024 End: 12-26-2024 take 1 capsule by mouth once daily in the morning Diltiazem Hcl 240 mg capsule,extended release 24hr Discontinued 240 mg PO EVERY MORNING December 25, 2024 4:00pm December 26, 2024 3:20pm Start: 08-18-2024 End: 03-04-2025 take 1 capsule by mouth twice daily Diltiazem Hcl 240 mg capsule,extended release 24hr Discontinued 240 mg PO TWICE A DAY December 26, 2024 3:19pm March 04, 2025 9:55am Start: 07-16-2024 End: 08-18-2024 take 1 capsule by mouth every twenty-four hours Diltiazem Hcl 180 mg capsule,extended release 24hr Discontinued mg PO July 16, 2024 1:00am August 18, 2024 3:13pm Start: 05-21-2024 End: 07-16-2024 take 1 capsule by mouth twice daily Diltiazem Hcl 240 mg capsule,extended release 24hr Discontinued 240 mg PO TWICE A DAY 180 3 May 27, 2024 10:23am July 16, 2024 12:16pm Start: 05-16-2024 End: 05-21-2024 take 1 tablet by mouth twice daily Diltiazem Hcl (Cardizem) 120 mg tablet Discontinued 120 mg PO TWICE A DAY 60 2 May 16, 2024 12:00am May 21, 2024 2:00pm Start: 04-15-2024 End: 05-16-2024 take 1 capsule by mouth twice daily, then take 1 capsule by mouth every twenty-four hours Diltiazem Hcl (Cardizem Cd) 240 mg capsule,extended release 24hr Discontinued 240 mg PO TWICE A DAY 60 0 April 15, 2024 12:00am May 16, 2024 1:02pm cardiac Start: 2022 End: 12-04-2024 take 1 capsule by mouth twice daily Diltiazem Hcl 180 mg capsule,extended release 24hr Discontinued 180 mg PO TWICE A DAY 180 3 September 03, 2023 10:01am April 20, 2024 9:19pm blood pressure Start: 10-15-2017 End: 12-05-2022 take 1 capsule by mouth twice daily Diltiazem Hcl 120 mg capsule,extended release 24hr Discontinued 120 mg PO TWICE A DAY 180 3 April 29, 2020 4:50pm October 27, 2021 10:20am Start: 01-25-2016 End: 10-15-2017 Diltiazem Hcl 240 MG capsule Discontinued 120 mg PO TWICE A DAY 180 3 October 15, 2017 1:10pm October 15, 2017 1:11pm Start: 01-25-2016 End: 10-15-2017 take 120 mg by mouth twice daily Diltiazem Hcl Discontinued 120 MG PO TWICE A DAY 180 October 15, 2017 1:10pm October 15, 2017 1:11pm Start: 10-27-2015 End: 10-15-2017 take 1 capsule by mouth once daily Diltiazem Hcl 240 MG capsule Discontinued 240 mg PO DAILY 0 October 27, 2015 12:00am January 25, 2016 9:22am Start: 08-09-2014 End: 06-01-2015 take 1 tablet by mouth once daily Diltiazem Hcl (Cardizem La) 360 MG Tab.Er.24h Discontinued 360 mg PO DAILY August 09, 2014 1:00am June 01, 2015 4:05pm Comment on above: Take [address] [facility] twice daily. Take 180 mg by mouth twice daily. docosaenoic acid 200 mg / eicosapentaenoic acid 300 mg oral capsule (5 sources) Start: 06-18-2019 [place] 2-Gqf-Dlv-Fish Oil Active 1 EACH PO DAILY June 18, 2019 1:00am [id number] 0.3 ml EPINEPHrine 1 mg/ml auto-injector (12 sources) alpha-Adrenergic Agonist, beta-Adrenergic Agonist, Catecholamine Start: 03-04-2025 Epinephrine (Epipen 2-Hyacinth) 0.3 mg/0.3 mL auto-injector Active 0.3 mg IM every 5 to 15 minutes as needed March 04, 2025 12:00am do not exceed 3 doses per episode Complies with drug therapy Start: 03-04-2025 Start: 03-27-2016 EPIPEN 2-HYACINTH 0 .3 mg/0.3 mL auto-injector Inject 0.3 mg subcutaneously as needed (allergic reactions). 03/27/2016 Active Comment on above: Inject 0.3 mg subcut aneously as needed (allergic reactions). Fish Oil-[place]-3 Fatty Acids 300-1,000 mg cap (8 sources) take 1 tablet by mouth once daily Fish Oil-[place]-3 Fatty Acids 300-1,000 mg cap Take 1 tablet by mouth once daily. Active take 1 tablet by mouth once tha y Fish Oil-[place]-3 Fatty Acids 300-1,000 mg cap Take 1 tablet by mouth once daily. 0 Active Comment on above: Take 1 tablet by [facility] once daily. 30 actuat fluticasone furoate 0.1 mg/actuat / umeclidinium 0.0625 mg/actuat / vilanterol 0.025 mg/actuat dry powder inhaler (18 sources) Anticholinergic, Corticosteroid, beta2-Adrenergic Agonist Start: 11-21-2024 nnipnhygijw-efmayjqze-f ilanter (TRELEGY ELLIPTA) 100-62.5-25 mcg inhalation powder Hyruwgjkplb-Lcdplgkug-D ilanter (Trelegy Ellipta) 100-62.5-25 mcg blister with device Active 1 NMA INHALATION Q24H 60 November 21, 2024 12:00am 11/21/2024 Active Start: 11-21-2024 End: 03-04-2025 Bhjdwwmhkav-Hwgrtizsk-Xxsjiy er (Trelegy Ellipta) 100-62.5-25 mcg blister with device Discontinued 1 NMA INHALATION Q24H 60 November 21, 2024 12:00am March 04, 2025 9:22am Start: 11-21-2024 End: 03-04-2025 Start: 11-21-2024 Start: 11-21-2024 Fluticasone-Um eclidin-Vilanter (Trelegy Ellipta) 100-62.5-25 mcg blister with device Active 1 NMA INHALATION Q24H 60 November 21, 2024 12:00am Start: 11-21-2024 Fluticasone-Um eclidin-Vilanter (Trelegy Ellipta) 100-62.5-25 mcg blister with device Active 1 NMA INHALATION Q24H 60 November 21, 2024 12:00am Jctpbljthgq-Kwnwhkwtf-Dpymjo er (6 sources) Start: 04-08-2025 Vbjiipgoary-Ntlbyuyuy-Rqsjqs er (Trelegy Ellipta) 200-62.5-25 mcg blister with device Active 1 NMA INHALATION daily 60 April 08, 2025 10:36am Complies with drug therapy Start: 04-08-2025 Fluticasone-Um eclidin-Vilanter (Trelegy Ellipta) 200-62.5-25 mcg blister with device Active 1 NMA INHALATION daily 60 April 08, 2025 10:36am Start: 03-04-2025 End: 04-08-2025 Gajxnfoiszn-Lpwedvxfn-Nqmxlq er (Trelegy Ellipta) 200-62.5-25 mcg blister with device Discontinued 1 NMA INHALATION daily March 04, 2025 12:00am April 08, 2025 10:38am Start: 03-04-2025 Fluticasone-Um eclidin-Vilanter (Trelegy Ellipta) 200-62.5-25 mcg blister with device Active 1 NMA INHALATION daily March 04, 2025 12:00am Start: 03-04-2025 lidocaine hydrochloride 20 mg/ml mucous membrane topical solution (20 sources) Antiarrhythmic, Amide Local Anesthetic Start: 03-04-2025 Lidocaine Hcl 2 % solution Active 5 mL MUCOUS MEM THREE TIMES A DAY as needed March 04, 2025 12:00am Complies with drug therapy Start: 03-04-2025 Lidocaine Hcl 2 % solution Active 5 mL MUCOUS MEM THREE TIMES A DAY as needed March 04, 2025 12:00am Start: 10-16-2023 End: 02-28-2024 Lidocaine Hcl (Lidocaine Vis cous) 2 % solution Discontinued 1 NMA MUCOUS MEM Q12H as needed for pain 100 2 October 16, 2023 3:50pm February 28, 2024 11:29am Start: 10-16-2023 End: 02-28-2024 Lidocaine Hcl (Lidocaine Vis cous) 2 % solution Discontinued 1 NMA MUCOUS MEM Q12H as needed for pain 100 October 16, 2023 3:50pm February 28, 2024 11:29am Start: 10-16-2023 Lidocaine Hcl (Lidocaine Viscous) 2 % solution Active 1 APPLIC MUCOUS MEM Q12H 100 October 16, 2023 3:50pm Start: 10-16-2023 lidocaine visc ous (XYLOCAINE) 2 % solution Take 5 mL by mouth as needed. 10/16/2023 Active Start: 09-18-2023 End: 02-28-2024 Lidocaine Hcl (Lidocaine Vis cous) 2 % solution Discontinued 1 NMA MUCOUS MEM Q12H as needed for pain 100 2 October 16, 2023 3:50pm February 28, 2024 11:29am Start: 09-18-2023 End: 10-16-2023 Lidocaine Hcl (Lidocaine Vis cous) 2 % solution Discontinued 1 NMA MUCOUS MEM Q12H as needed for pain 100 2 September 18, 2023 1:00am October 16, 2023 3:50pm Start: 09-18-2023 End: 10-16-2023 Lidocaine Hcl (Lidocaine Vis cous) 2 % solution Discontinued 1 NMA MUCOUS MEM Q12H as needed for pain 100 September 18, 2023 1:00am October 16, 2023 3:50pm Start: 09-18-2023 End: 10-16-2023 Lidocaine Hcl (Lidocaine Vis cous) 2 % solution Discontinued 1 APPLIC MUCOUS MEM Q12H 100 September 18, 2023 1:00am October 16, 2023 3:50pm Start: 09-18-2023 Lidocaine Hcl (Lidocaine Viscous) 2 % solution Active 1 APPLIC MUCOUS MEM Q12H 100 September 18, 2023 12:00am Nystatin 100,000 unit/mL suspension (2 sources) Start: 03-04-2025 take 1 mL by mouth three times daily Nystatin 100,000 unit/mL suspension Active 1 mL PO THREE TIMES A DAY March 04, 2025 12:00am [place]-3 Fatty Acids 1,000 mg capsule (13 sources) Start: 02-28-2024 take 1 capsule by mouth once daily [place]-3 Fatty Acids 1,000 mg capsule Active 1000 mg PO DAILY February 28, 2024 12:00am supplement Complies with drug therapy Start: 02-28-2024 take 1 capsule by mo [facility] once daily [place]-3 Fatty Acids 1,000 mg capsule Active 1000 mg PO DAILY February 28, 2024 12:00am supplement Start: 02-28-2024 take 1 capsule by mo [facility] once daily [place]-3 Fatty Acids 1,000 mg capsule Active 1000 mg PO DAILY February 28, 2024 12:00am pantoprazole 40 mg delayed release oral tablet (20 sources) Proton Pump Inhibitor Start: 04-07-2024 End: 04-13-2025 take 1 tablet by mouth twice daily Pantoprazole 40 mg tablet,delayed release (DR/EC) Active 40 mg PO TWICE A DAY 60 April 13, 2025 11:10am gerd Complies with drug therapy Start: 12-04-2023 take 2 tablets by mo ut once daily pantoprazole DR (PROTONIX) 40 mg tablet Take 80 mg by mouth once daily. 12/04/2023 Active Start: 09-18-2023 End: 02-18-2024 take 1 tablet by mouth every twelve hours Pantoprazole 40 mg tablet,delayed release (DR/EC) Discontinued 40 mg PO Q12H 90 3 September 18, 2023 3:00pm February 18, 2024 11:47am Start: 07-12-2022 End: 02-28-2024 take 1 tablet by mouth twice daily Pantoprazole 40 mg tablet,delayed release (DR/EC) Discontinued 40 mg PO TWICE A DAY 180 February 18, 2024 11:46am February 28, 2024 11:27am Start: 07-12-2022 End: 09-18-2023 take 1 tablet by mouth once daily Pantoprazole 40 mg tablet,delayed release (DR/EC) Discontinued 40 mg PO DAILY 90 January 10, 2023 8:16am September 18, 2023 3:01pm TRELEGY ELLIPTA 200-62.5-25 mcg inhalation powder (2 sources) Start: 11-21-2024 TRELEGY ELLIPT A 200-62.5-25 mcg inhalation powder 11/21/2024 Active Vitamin D3-Vitamin K2 250 mcg (10,000 unit)-45 mcg capsule (3 sources) Start: 03-04-2025 take 1 capsule by mouth once daily Vitamin D3-Vitamin K2 250 mcg (10,000 unit)-45 mcg capsule Active 1 NMA PO daily March 04, 2025 12:00am Complies with drug therapy Start: 03-04-2025 take 1 capsule by mo [facility] once daily Vitamin D3-Vitamin K2 250 mcg (10,000 unit)-45 mcg capsule Active 1 NMA PO daily March 04, 2025 12:00am (20 sources) Start: 03-04-2025 Start: 10-15-2024 Start: 04-29-2024 End: 10-15-2024 Start: 02-28-2024 Start: 02-28-2024 End: 04-04-2024 Start: 10-16-2023 End: 02-28-2024 Start: 10-16-2023 End: 02-28-2024 Start: 09-18-2023 End: 10-16-2023 Start: 06-18-2023 End: 07-05-2023 Start: 07-12-2022 End: 07-05-2023 Start: 06-18-2019 End: 07-05-2023 Completed/Discontinued Medications Medication Drug Class(es) Dates Sig [...] PO Q8H as needed for pain 473 0 October 16, 2023 3:50pm February 28, 2024 11:28am Start: 10-16-2023 End: 02-28-2024 take 1 mL [...] October 16, 2023 3:50pm Start: 09-18-2023 End: 02-28-2024 take 1 mL by mouth every eight hours as needed for pain Acetaminophen-Codeine 120-12 mg/5 mL solution Discontinued 5 mL PO Q8H as needed for pain 473 0 October 16, 2023 3:50pm February 28, 2024 11:28am Start: 09-18-2023 End: 10-16-2023 take 1 mL by mouth every eight hours as needed for pain Acetaminophen-Codeine 120-12 mg/5 mL solution Discontinued 5 mL PO Q8H as needed for pain 473 0 September 18, 2023 1:00am October 16, 2023 [...] NEEDED as needed for Pain 10 3 0 August 09, 2019 August 11, 2019 1:00am August 12, 2019 1:09am Thoracic back pain Pain in thoracic spine Start: 08-09-2019 End: 08-12-2019 Start: 08-09-2019 End: 08-12-2019 take 1 tablet by mouth every six hours as needed Hydrocodone-Acetaminophen Discontinued 1 TABLET PO EVERY 6 HOURS NEEDED 10 3 August 09, 2019 August 12, 2019 1:09am Start: 01-25-2016 End: 02-11-2018 Hydrocodone-Acetaminophen 1 TABLET tablet Discontinued 1 {tbl} PO EVERY 6 HOURS NEEDED as needed for Pain 8 0 January 25, 2016 9:31am February 11, 2018 3:41pm Start: 01-25-2016 End: 02-11-2018 Start: 01-25-2016 End: 02-11-2018 take 1 tablet by mouth every six hours as needed Hydrocodone-Acetaminophen Discontinued 1 TABLET PO EVERY 6 HOURS NEEDED 8 January 25, 2016 9:31am February 11, 2018 3:41pm allopurinol 100 mg oral tablet (20 sources) Xanthine Oxidase Inhibitor Start: 10-25-2023 take 1 tablet by mouth once daily Allopurinol 300 mg tablet Active 300 mg PO DAILY April 07, 2024 12:00am gout Complies with drug therapy Start: 06-18-2023 End: 04-07-2024 take 3 tablets by mouth once daily [...] 2023 1:00am July 05, 2023 4:14pm Start: 10-27-2015 End: 11-07-2022 Start: 08-02-2015 End: 04-07-2024 take 1 tablet by mouth [...] Discontinued 1 {tbl} PO TWICE A DAY 20 April 29, 2024 12:00am May 10, 2024 8:00pm Chronic obstructive pulmonary disease Chronic obstructive pulmonary disease, unspecified Start: 04-29-2024 End: 05-10-2024 Start: 04-09-2024 End: 04-20-2024 Amoxicillin-Pot Clavulanate 875-125 mg tablet Discontinued 1 {tbl} PO TWICE A DAY 6 April 09, 2024 12:00am April 20, 2024 9:20pm Start: 04-09-2024 End: 04-20-2024 Start: 11-07-2022 End: 11-17-2022 Amoxicillin-Pot Clavulanate 875-125 mg tablet Discontinued 1 {tbl} PO Q12H 20 November 07, 2022 12:00am November 16, 2022 12:00am November 17, 2022 12:04am Acute sinusitis, unspecified Start: 11-07-2022 End: 11-17-2022 Start: 11-07-2022 End: 11-17-2022 take 1 tablet by mouth every twelve hours Amoxicillin-Pot Clavulanate Discontinued 1 TABLET PO Q12H 20 November 07, 2022 12:00am November 17, 2022 12:04am aspirin 325 mg oral tablet (20 sources) Platelet Aggregation Inhibitor, Nonsteroidal Anti-inflammatory Drug Start: 10-27-2021 End: 06-14-2022 take 1 tablet by mouth once daily Aspirin 325 mg tablet Discontinued 325 mg PO DAILY October 27, 2021 12:00am June 14, 2022 12:16pm Start: 10-10-2021 End: 10-27-2021 Aspirin (Adult Low Dose Aspi rin) 81 mg tablet,delayed release (DR/EC) Discontinued 81 mg PO DAILY October 10, 2021 12:00am October 27, 2021 9:42am Start: 10-10-2021 End: 10-27-2021 Aspirin (Adult Low Dose Aspi rin) 81 mg tablet,delayed release (DR/EC) Discontinued 81 mg PO every other day October 27, 2021 9:37am October 27, 2021 10:19am Humonieafg-Nitzpznh-Adjgdudz ol (20 sources) Corticosteroid, beta2-Adrenergic Agonist Start: 03-04-2025 End: 04-08-2025 Iduajwnzft-Ssuhdzoy-Yghnzodi ol (Breztri Aerosphere) 160-9-4.8 mcg/actuation HFA aerosol inhaler Discontinued 2 NMA INHALATION TWICE A DAY March 04, 2025 12:00am April 08, 2025 10:34am dyspnea Start: 03-04-2025 Budesonide-Gly copyr-Formoterol (Breztri Aerosphere) 160-9-4.8 mcg/actuation HFA aerosol inhaler Active 2 NMA INHALATION TWICE A DAY March 04, 2025 12:00am dyspnea Start: 03-04-2025 Start: 10-15-2024 End: 11-21-2024 Start: 10-15-2024 End: 11-21-2024 Useweuoivr-Wntoxvyg-Iwlackvo ol (Breztri Aerosphere) 160-9-4.8 mcg/actuation HFA aerosol inhaler Discontinued 2 NMA INHALATION TWICE A DAY 10.7 6 October 15, 2024 11:29am November 21, 2024 5:11am Lung mass Other nonspecific abnormal finding of lung field shortness of breath Start: 10-15-2024 End: 11-21-2024 Xqkzsibmjg-Dhwjkmxx-Abbcowtf ol (Breztri Aerosphere) 160-9-4.8 mcg/actuation HFA aerosol inhaler Discontinued 2 NMA INHALATION TWICE A DAY 10.7 October 15, 2024 11:29am November 21, 2024 5:11am Start: 10-15-2024 Budesonide-Gly copyr-Formoterol (Breztri Aerosphere) 160-9-4.8 mcg/actuation HFA aerosol inhaler Active 2 NMA INHALATION TWICE A DAY 10.7 October 15, 2024 11:29am Start: 09-24-2024 End: 10-15-2024 Start: 09-24-2024 End: 10-15-2024 Yleusrkxpy-Jidcprwa-Oilzwvhi ol (Breztri Aerosphere) 160-9-4.8 mcg/actuation HFA aerosol inhaler Discontinued 2 NMA INHALATION TWICE A DAY 10.7 6 September 24, 2024 9:47am October 15, 2024 11:30am Lung mass Other nonspecific abnormal finding of lung field shortness of breath Start: 09-24-2024 End: 10-15-2024 Pfpybetuej-Akxzlpgf-Nzixzydg ol (Breztri Aerosphere) 160-9-4.8 mcg/actuation HFA aerosol inhaler Discontinued 2 NMA INHALATION TWICE A DAY 10.7 September 24, 2024 9:47am October 15, 2024 11:30am Start: 03-12-2024 End: 09-24-2024 Start: 03-12-2024 End: 09-24-2024 Hcctibesdp-Rxhrszqk-Apaztyrz ol (Breztri Aerosphere) 160-9-4.8 mcg/actuation HFA aerosol inhaler Discontinued 2 NMA INHALATION TWICE A DAY 10.7 6 March 12, 2024 9:38am September 24, 2024 9:47am Lung mass Other nonspecific abnormal finding of lung field shortness of breath Start: 03-12-2024 End: 09-24-2024 Yejdfbybkx-Fyqfpvjg-Zfnaxymg ol (Breztri Aerosphere) 160-9-4.8 mcg/actuation HFA aerosol inhaler Discontinued 2 NMA INHALATION TWICE A DAY 10.7 March 12, 2024 9:38am September 24, 2024 9:47am Start: 06-18-2023 End: 03-12-2024 Start: 06-18-2023 End: 03-12-2024 Jqqadjygwg-Wkdquisa-Niiiyybt ol (Breztri Aerosphere) 160-9-4.8 mcg/actuation HFA aerosol inhaler Discontinued 2 NMA INHALATION TWICE A DAY 10.7 6 June 18, 2023 12:30pm March 12, 2024 9:38am Lung mass Other nonspecific abnormal finding of lung field Start: 06-18-2023 End: 03-12-2024 Rdqdbbjttv-Pugevzlu-Rnzmmoyq ol (Breztri Aerosphere) 160-9-4.8 mcg/actuation HFA aerosol [...] 18, 2023 11:30am Start: 02-02-2023 End: 06-18-2023 Start: 02-02-2023 End: 06-18-2023 Rahupfllyh-Fqzhsnhj-Tsxmcowb ol (Breztri Aerosphere) 160-9-4.8 mcg/actuation HFA aerosol inhaler Discontinued 2 NMA INHALATION TWICE A DAY 10.7 6 February 02, 2023 9:31am June 18, 2023 12:31pm Lung mass Other nonspecific abnormal finding of lung field Start: 02-02-2023 End: 06-18-2023 Qxlfevbyen-Mdvudiuf-Wtebwhuz ol (Breztri Aerosphere) 160-9-4.8 mcg/actuation HFA aerosol inhaler Discontinued 2 NMA INHALATION TWICE A DAY 10.7 February 02, 2023 9:31am June 18, 2023 12:31pm Start: 02-02-2023 End: 06-18-2023 Fhwgdroqcx-Fbvjhiwm-Wlipoxla ol (Breztri Aerosphere) 160-9-4.8 mcg/actuation HFA aerosol inhaler Discontinued 2 INH INHALATION TWICE A DAY 10.7 February 02, 2023 9:31am June 18, 2023 12:31pm Start: 02-02-2023 End: 06-18-2023 Mlobwnykqw-Gmvttefi-Mrduiftk ol (Breztri Aerosphere) 160-9-4.8 mcg/actuation HFA aerosol inhaler Discontinued 2 INH INHALATION TWICE A DAY 10.7 February 02, 2023 8:31am June 18, 2023 11:31am Start: 02-02-2023 Budesonide-Gly copyr-Formoterol (Breztri Aerosphere) 160-9-4.8 mcg/actuation HFA aerosol inhaler Active 2 INH INHALATION TWICE A DAY 10.7 February 02, 2023 9:31am Start: 06-14-2022 End: 02-02-2023 Start: 06-14-2022 End: 02-02-2023 Oictslvjvk-Vbsutpom-Nwmjhnol ol (Breztri Aerosphere) 160-9-4.8 mcg/actuation HFA aerosol inhaler Discontinued 2 NMA INHALATION TWICE A DAY 10.7 6 June 14, 2022 12:37pm February 02, 2023 9:32am Lung mass Other nonspecific abnormal finding of lung field Start: 06-14-2022 End: 02-02-2023 Btxusalubs-Alprgwpr-Fdnkninw ol (Breztri Aerosphere) 160-9-4.8 mcg/actuation HFA aerosol inhaler Discontinued 2 NMA INHALATION TWICE A DAY 10.7 June 14, 2022 12:37pm February 02, 2023 9:32am Start: 06-14-2022 End: 02-02-2023 Kyydbsrwrb-Eysrlnkg-Eybraqzp ol (Breztri Aerosphere) 160-9-4.8 mcg/actuation HFA aerosol inhaler Discontinued 2 INH INHALATION TWICE A DAY 10.7 June 14, 2022 11:37am February 02, 2023 8:32am Start: 06-14-2022 End: 02-02-2023 Bfjatdjyir-Snswtlwz-Navpcmsc ol (Breztri Aerosphere) 160-9-4.8 mcg/actuation HFA aerosol [...] 14, 2022 11:37am Start: 02-10-2022 End: 06-14-2022 Start: 02-10-2022 End: 06-14-2022 Aofwxfukma-Pcxejics-Ixpvfkml ol (Breztri Aerosphere) 160-9-4.8 mcg/actuation HFA aerosol inhaler Discontinued 2 NMA INHALATION TWICE A DAY 10.7 6 February 10, 2022 2:15pm June 14, 2022 12:38pm Lung mass Other nonspecific abnormal finding of lung field Start: 02-10-2022 End: 06-14-2022 Bepsmdpozd-Noikxtol-Ifswzilf ol (Breztri Aerosphere) 160-9-4.8 mcg/actuation HFA aerosol inhaler Discontinued 2 NMA INHALATION TWICE A DAY 10.7 February 10, 2022 2:15pm June 14, 2022 12:38pm Start: 02-10-2022 End: 06-14-2022 Kuolfdzotp-Kyglmzfq-Gusynvdl ol (Breztri Aerosphere) 160-9-4.8 mcg/actuation HFA aerosol inhaler Discontinued 2 INH INHALATION TWICE A DAY 10.7 February 10, 2022 2:15pm June 14, 2022 12:38pm Start: 02-10-2022 End: 06-14-2022 Bmoivrqegf-Scgyjoox-Pnpvolsp ol (Breztri Aerosphere) 160-9-4.8 mcg/actuation HFA aerosol [...] DAILY 12/16/2021 Active Start: 07-04-2021 End: 02-10-2022 Start: 07-04-2021 End: 02-10-2022 Kooidnalck-Ojwfqztg-Wmhfyohc ol (Breztri Aerosphere) 160-9-4.8 mcg/actuation HFA aerosol inhaler Discontinued 2 NMA INHALATION TWICE A DAY 10.7 6 July 04, 2021 11:03am February 10, 2022 2:15pm Lung mass Other nonspecific abnormal finding of lung field Start: 07-04-2021 End: 02-10-2022 Hrmhdehgia-Aiuqnhta-Jegxpxvk ol (Breztri Aerosphere) 160-9-4.8 mcg/actuation HFA aerosol inhaler Discontinued 2 NMA INHALATION TWICE A DAY 10.7 July 04, 2021 11:03am February 10, 2022 2:15pm Start: 07-04-2021 End: 02-10-2022 Nmsercrqcd-Hzkmlwzz-Rwigghqj ol (Breztri Aerosphere) 160-9-4.8 mcg/actuation HFA aerosol inhaler Discontinued 2 INH INHALATION TWICE A DAY 10.7 July 04, 2021 10:03am February 10, 2022 1:15pm Start: 07-04-2021 End: 02-10-2022 Orztyhobtz-Bnfnouti-Yneophfy ol (Breztri Aerosphere) 160-9-4.8 mcg/actuation HFA aerosol inhaler Discontinued 2 INH INHALATION TWICE A DAY 10.7 July 04, 2021 11:03am February 10, 2022 2:15pm Start: 07-04-2021 Budesonide-Gly copyr-Formoterol (Breztri Aerosphere) 160-9-4.8 mcg/actuation HFA aerosol inhaler Active 2 INH INHALATION TWICE A DAY 10.7 July 04, 2021 11:03am Start: 04-26-2021 End: 07-04-2021 Aokrndiuir-Nupethsf-Ddzghpvx ol (Breztri Aerosphere) 160-9-4.8 mcg/actuation HFA aerosol inhaler Discontinued 2 INH INHALATION TWICE A DAY 10.7 April 26, 2021 9:45am July 04, 2021 11:03am Start: 04-26-2021 End: 07-04-2021 Start: 04-26-2021 End: 07-04-2021 Gguxbtizqp-Hrknvoog-Qybyhygt ol (Breztri Aerosphere) 160-9-4.8 mcg/actuation HFA aerosol inhaler Discontinued 2 NMA INHALATION TWICE A DAY 10.7 6 April 26, 2021 12:00am July 04, 2021 11:03am Start: 04-26-2021 End: 07-04-2021 Ckgpeiqxnr-Gedxoldp-Mpoikirt ol (Breztri Aerosphere) 160-9-4.8 mcg/actuation HFA aerosol inhaler Discontinued 2 NMA INHALATION TWICE A DAY 10.7 April 26, 2021 12:00am July 04, 2021 11:03am Start: 04-26-2021 End: 07-04-2021 Uhgexscufs-Mttffbcw-Vmonrlwf ol (Breztri Aerosphere) 160-9-4.8 mcg/actuation HFA aerosol inhaler Discontinued 2 INH INHALATION TWICE A DAY 10.7 April 25, 2021 11:00pm July 04, 2021 10:03am Start: 04-26-2021 End: 07-04-2021 Xvoinhcyzy-Gmdklemw-Atgspysy ol (Breztri Aerosphere) 160-9-4.8 mcg/actuation HFA aerosol inhaler Discontinued 2 INH INHALATION TWICE A DAY 10.7 April 26, 2021 12:00am July 04, 2021 11:03am Comment on above: inhale 2 (TWO) puffs TWICE DAILY Calcium Carb-Mag Ox-Zinc Glu c (20 sources) Start: 10-27-2021 End: 06-14-2022 Start: 10-27-2021 End: 06-14-2022 Calcium Carb-Mag Ox-Zinc Glu c 333-133-5 mg tablet Discontinued 1 {tbl} PO [...] Start: 10-27-2021 take 1 tablet by marcus th once daily calcium carbonate 333 mg-magnesium oxide 133 mg-zinc gluc 5 mg tablet Active 1 TABLET PO DAILY October 27, 2021 9:37am Start: 10-13-2019 End: 10-27-2021 calcium carbonate 333 mg-mag nesium oxide 133 mg-zinc gluc 5 mg tablet Discontinued TABLET PO October 13, 2019 11:36am October 27, 2021 9:42am Start: 10-13-2019 End: 10-27-2021 Start: 10-13-2019 End: 10-27-2021 Calcium Carb-Mag Ox-Zinc [...] 13, 2019 12:00am October 27, 2021 9:42am cholecalciferol 0.05 mg oral capsule (20 sources) Vitamin D Start: 08-18-2024 End: 03-04-2025 take 1 capsule by mouth once daily Cholecalciferol (Vitamin D3) 50 mcg (2,000 unit) capsule Discontinued 50 ug PO daily August 18, 2024 1:00am March 04, 2025 9:22am Start: 04-07-2024 End: 07-16-2024 take 1 capsule by mouth once daily Cholecalciferol (Vitamin D3) 50 mcg (2,000 unit) capsule Discontinued 50 ug PO DAILY April 07, 2024 12:00am July 16, 2024 11:44am supplement Start: 02-28-2024 End: 04-07-2024 take 1 capsule by mouth once daily Cholecalciferol (Vitamin D3) 250 mcg (10,000 unit) capsule Discontinued 250 ug PO DAILY February 28, 2024 12:00am April 07, 2024 11:58am supplement Start: 10-13-2019 End: 06-18-2023 take 1 capsule by mouth once daily Cholecalciferol (Vitamin D3) 250 mcg (10,000 unit) capsule Discontinued 250 ug PO DAILY October 13, 2019 12:00am June 18, 2023 12:18pm cyclobenzaprine hydrochloride 10 mg oral tablet (20 sources) Muscle Relaxant Start: 08-09-2019 End: 07-12-2020 take 1 tablet by mouth three times daily as needed for muscle spasms Cyclobenzaprine 10 MG tablet Discontinued 10 mg PO THREE TIMES A DAY as needed for Muscle Spasm August 09, 2019 1:00am December 01, 2019 1:14pm dofetilide 0.5 mg oral capsule (20 sources) Antiarrhythmic Start: 06-18-2019 End: 08-18-2024 take 1 capsule by mouth twice daily Dofetilide 500 mcg capsule Discontinued 500 ug PO TWICE A DAY 180 3 September 26, 2023 4:57pm August 18, 2024 3:30pm heart Start: 01-25-2016 End: 05-06-2019 take 1 capsule by mouth twice daily Dofetilide 500 mcg capsule Discontinued 500 ug PO TWICE A DAY 180 3 October 30, 2018 3:23pm May 06, 2019 2:02pm Comment on above: TAKE 1 CAPSULE BY MO UT TWICE DAILY Take 1 capsule by mo ut twice daily. doxycycline hyclate 100 mg oral capsule (17 sources) Tetracycline-cla ss Drug Start: 4 End: 4 take 1 capsule by mouth twice daily Doxycycline Hyclate 100 mg capsule Discontinued 100 mg PO TWICE A DAY April 07, 2024 12:00am April 20, 2024 9:20pm antibiotic TAKE ONE CAPSULE BY MOUTH TWICE DAILY FOR 7 DAYS. 120 actuat formoterol fumarate 0.0048 mg/actuat / glycopyrrolate 0.009 mg/actuat metered dose inhaler (20 sources) beta2-Adrenergic Agonist Start: 1 End: 2 Glycopyrrolate-Formot bettina 9-4.8 mcg HFA aerosol inhaler Discontinued 2 NMA INHALATION TWICE A DAY October 11, 2020 12:00am October 27, 2021 9:38am Start: 10-11-2020 End: 10-27-2021 Start: 10-11-2020 End: 10-27-2021 take 1 puff(s) by inhalation twice daily Glycopyrrolate-Formoterol Discontinued 2 PUFF INHALATION TWICE A DAY October 11, 2020 12:00am October 27, 2021 9:38am Start: 07-20-2020 End: 10-04-2020 Glycopyrrolate-Formoterol (B evespi Aerosphere) 9-4.8 mcg HFA aerosol inhaler Discontinued 2 NMA INHALATION every day in the morning and in the evening 08 01July 20, 2020 1:00am October 04, 2020 9:38am Start: 07-20-2020 End: 10-04-2020 Start: 07-20-2020 End: 10-04-2020 Glycopyrrolate-Formoterol (B evespi Aerosphere) 9-4.8 mcg HFA aerosol inhaler Discontinued 2 PUFF INHALATION every day in the morning and in the evening July 20, 2020 1:00am October 04, 2020 9:38am take 2 puff(s) by in halation twice daily glycopyrrolate-formoterol 9-4.8 mcg Inhale 2 Puffs as instructed twice daily. Active Comment on above: Inhale 2 Puffs as in structed twice daily. furosemide 40 mg oral tablet (20 sources) Loop Diuretic Start: 6 End: 5 take 1 tablet by mouth once daily as needed for edema Furosemide 40 mg tablet Discontinued 40 mg PO DAILY NEEDED as needed for edema 90 3 September 26, 2023 4:57pm February 28, 2024 11:29am Comment on above: Take 40 mg by mouth once daily. 12 hr guaiFENesin 1200 mg extended release oral tablet (20 sources) Start: End: take 1 tablet by mouth every twelve hours Guaifenesin 1,200 mg tablet extended release 12hr Discontinued 1200 mg PO Q12H 60 6 October 15, 2024 11:29am April 08, 2025 10:38am Chronic obstructive pulmonary disease Chronic obstructive pulmonary disease, unspecified cough Start: 04-09-2024 End: 04-29-2024 take 1 tablet by mouth twice daily, then take 1 tablet by mouth every twelve hours Guaifenesin (Mucinex) 600 mg Tablet Extended Release 12hr Discontinued 600 mg PO TWICE A DAY 10 April 09, 2024 12:00am April 29, 2024 11:21am Start: 07-12-2022 End: 07-05-2023 take 1 tablet by mouth every twelve hours as needed for congestion Guaifenesin 600 mg tablet extended release 12hr Discontinued 600 mg PO Q12H as needed for congestion 14 July 12, 2022 1:00am July 05, 2023 4:16pm Start: 07-12-2022 End: 07-05-2023 take 600 mg by mouth every twelve hours Guaifenesin Discontinued 600 MG PO Q12H 14 July 12, 2022 1:00am July 05, 2023 4:16pm ibuprofen 800 mg oral tablet (20 sources) Nonsteroidal Anti-inflammatory Drug Start: 10-27-2021 End: 07-05-2023 Ibuprofen 800 mg tablet Discontinued 800 mg PO .PRN 90 0 October 27, 2021 12:00am July 05, 2023 4:17pm Start: 10-27-2021 End: 07-05-2023 lansoprazole 30 mg delayed release oral capsule (20 sources) Proton Pump Inhibitor Start: 02-28-2024 End: 04-07-2024 take 1 capsule by mouth once daily Lansoprazole 30 mg capsule,delayed release(DR/EC) Discontinued 30 mg PO DAILY February 28, 2024 12:00am April 07, 2024 12:03pm acid reflux Start: 08-09-2014 End: 12-06-2023 take 1 capsule by mouth once daily Lansoprazole 30 MG capsule Discontinued 30 mg PO DAILY August 09, 2014 1:00am February 11, 2018 3:40pm Comment on above: Take 30 mg by mouth once daily. methylPREDNISolone 4 mg oral tablet (20 sources) Corticosteroid Start: 2021 End: 2021 take 1 tablet by mouth once Methylprednisolone (Medrol (Hyacinth)) 4 mg tablets,dose pack Discontinued 4 mg PO per package directions 21 5 0 January 19, 2022 12:00am January 23, 2022 12:00am January 24, 2022 12:03am Start: 01-19-2022 End: 01-24-2022 24 hr metoprolol succinate 25 mg extended release oral tablet (20 sources) beta-Adrenergic John Start: 08-09-2014 End: 05-30-2015 take 1 tablet by mouth once daily Metoprolol Succinate 25 MG tablet Discontinued 25 mg PO DAILY 30 0 August 09, 2014 1:00am May 30, 2015 11:49pm Start: 08-09-2014 End: 06-01-2015 take 1 tablet by mouth twice daily Metoprolol Succinate 25 MG tablet Discontinued 25 mg PO TWICE A DAY May 30, 2015 11:49pm June 01, 2015 4:05pm nystatin [id number] unt/ml oral suspension (20 sources) Polyene Antifungal Start: 03-04-2025 End: 04-16-2025 take 1 mL by mouth three times daily Nystatin 100,000 unit/mL suspension Discontinued 1 mL PO THREE TIMES A DAY March 04, 2025 12:00am April 16, 2025 11:23am Start: 10-15-2024 take 1 mL by mouth t hree times daily nystatin (MYCOSTATIN) 100,000 unit/mL suspension swish and swallow 1ml BY MOUTH THREE TIMES DAILY FOR 5 DAYS 10/15/2024 Active Start: 10-15-2024 End: 10-20-2024 take 1 mL by mouth three times daily Nystatin 100,000 unit/mL suspension Discontinued 1 mL PO THREE TIMES A DAY 60 5 0 October 15, 2024 12:00am October 19, 2024 12:00am October 20, 2024 12:12am swish and swallow Start: 10-15-2024 End: 10-20-2024 Start: 10-16-2023 End: 02-28-2024 take 1 mL by mouth every six hours Nystatin 100,000 unit/mL suspension Discontinued 1 mL PO EVERY 6 HOURS 28 7 October 16, 2023 12:00am February 28, 2024 11:29am Start: 10-16-2023 End: 02-28-2024 Start: 10-16-2023 take 1 mL by mouth e very six hours Nystatin Active 1 ML PO EVERY 6 HOURS 28 October 16, 2023 12:00am Start: 10-27-2021 End: 11-07-2022 Nystatin 100,000 unit/mL johan pension Discontinued 2.5 mL BUCCAL THREE TIMES A DAY as needed for Sore Throat October 27, 2021 12:00am November 07, 2022 8:21am Start: 10-27-2021 End: 11-07-2022 Start: 10-27-2021 End: 11-07-2022 Nystatin Discontinued 2.5 ML BUCCAL THREE TIMES A DAY October 27, 2021 12:00am November 07, 2022 8:21am Start: 10-11-2021 End: 10-21-2021 Nystatin 100,000 unit/mL johan pension Discontinued 5 mL PO THREE TIMES A DAY 150 10 0 October 11, 2021 12:00am October 20, 2021 12:00am October 21, 2021 12:03am administer 1/2 of dose in each side of the mouth Start: 10-11-2021 End: 10-21-2021 Start: 10-11-2021 End: 10-21-2021 Nystatin Discontinued 5 ML P O THREE TIMES A DAY 150 10 October 11, 2021 12:00am October 21, 2021 12:03am administer 1/2 of dose in each side of the mouth Tiotropium-Olodaterol (20 sources) Anticholinergic, beta2-Adrenergic Agonist Start: 10-27 End: 04-26-2021 Start: 10-27-2020 End: 04-26-2021 Tiotropium-Olodaterol (Stiol to Respimat) 2.5-2.5 mcg/actuation mist Discontinued 2 NMA INHALATION DAILY 4 6 October 27, 2020 9:26am April 26, 2021 9:46am Start: 10-27-2020 End: 04-26-2021 Tiotropium-Olodaterol (Stiol to Respimat) 2.5-2.5 mcg/actuation mist Discontinued 2 NMA INHALATION DAILY 4 October 27, 2020 9:26am April 26, 2021 [...] 27, 2020 9:27am Start: 10-04-2020 End: 10-27-2020 Start: 10-04-2020 End: 10-27-2020 Tiotropium-Olodaterol (Stiol to Respimat) 2.5-2.5 mcg/actuation mist Discontinued 2 NMA INHALATION DAILY 4 October 04, 2020 1:00am October 27, 2020 [...] 04, 2020 1:00am October 27, 2020 9:27am [place] 8-Hfq-Wyv-Fish Oil (20 sources) Start: 06-18-2019 End: 07-05-2023 [place] 2-Awt-Mlh-Fish Oil Dis continued 1 EACH PO DAILY June 18, 2019 1:00am July 05, 2023 4:17pm Start: 06-18-2019 End: 07-05-2023 [place] 2-Fei-Ayd-Fish Oil Dis continued 1 EACH PO DAILY June 18, 2019 12:00am July 05, 2023 3:17pm Start: 06-18-2019 [place] 3-Dha-Ep a-Fish Oil Active 1 EACH PO DAILY June 18, 2019 12:00am Start: 06-18-2019 [place] 3-Dha-Ep a-Fish Oil Active 1 EACH PO DAILY June 18, 2019 1:00am [place] 7-Kjr-Set-Fish Oil 1 EACH capsule (13 sources) Start: 06-18-2019 End: 07-05-2023 take 1 capsule by mouth once daily [place] 6-Ugr-Yjg-Fish Oil 1 EACH capsule Discontinued 1 NMA PO DAILY June 18, 2019 1:00am July 05, 2023 4:17pm omeprazole 20 mg delayed release oral capsule (20 sources) Proton Pump Inhibitor Start: 02-28-2024 End: 07-01-2024 take 1 capsule by mouth once daily Omeprazole 20 mg capsule,delayed release(DR/EC) Discontinued 20 mg PO DAILY February 28, 2024 12:00am July 01, 2024 10:13am acid reflux Start: 10-11-2020 End: 12-06-2023 take 1 capsule [...] Take 20 mg by mouth once daily. penicillin v potassium 500 mg oral tablet (20 sources) Start: 6 End: 8 take 1 tablet by mouth four times daily Penicillin V Potassium 500 MG tablet Discontinued 500 mg PO 4 TIMES DAILY 40 0 January 25, 2016 12:00am February 11, 2018 3:41pm permethrin 50 mg/ml topical cream (20 sources) Pyrethroid Start: 2 End: 2 Permethrin (Elimite) 5 % cream Discontinued 1 NMA TOPICAL ONCE 60 0 October 01, 2021 9:23am July 12, 2022 9:08am apply neck and below with 1/2 of tube & leave on for 8-14 hours before washing off, repeat in 7-10 days Start: 09-15-2021 End: 07-12-2022 Start: 09-15-2021 End: 07-12-2022 Permethrin (Elimite) 5 [...] tablet,ER particles/crystals Discontinued 10 meq PO DAILY 90 3 September 26, 2023 4:58pm August 18, 2024 3:30pm supplement Start: 10-27-2015 End: 05-13-2018 take 1 tablet by mouth once daily at mealtime Potassium Chloride 10 MEQ tablet Discontinued 10 meq PO DAILY WITH MEALS 0 October 27, 2015 12:00am May 13, 2018 11:13am Comment on above: Take 10 mEq by mouth once daily. predniSONE 10 mg oral tablet (20 sources) Start: 05-16-2024 End: 07-01-2024 Prednisone 10 mg tablets,dose pack Discontinued 0 mg PO DIRECTED Taper: Frequency: BREAKFAST Days: 3 Hours: 0 Dose: 60 Frequency: BREAKFAST Days: 3 Hours: 0 Dose: 50 Frequency: BREAKFAST Days: 3 Hours: 0 Dose: 40 Frequency: BREAKFAST Days: 3 Hours: 0 Dose: 30 Frequency: BREAKFAST Days: 3 Hours: 0 Dose: 20 Frequency: BREAKFAST Days: 3 Hours: 0 Dose: 10 21 May 16, 2024 12:00am July 01, 2024 10:10am Please contact the information source for Taper Schedule details. Start: 05-16-2024 End: 07-01-2024 Prednisone 10 mg tablets,dos e pack Discontinued 0 mg PO DIRECTED May 16, 2024 12:00am July 01, 2024 10:10am Please contact the information source for Taper Schedule details. Start: 05-16-2024 End: 07-01-2024 Start: 04-23-2024 End: 05-10-2024 take 4 tablets by mouth once daily, then take 3 tablets by mouth once daily, then take 2 tablets by mouth once daily, then take 1 tablet by mouth once daily, then take 0.5 tablet by mouth once daily Prednisone 10 mg tablet Discontinued 10 mg PO DAILY 32 April 23, 2024 12:00am May 10, 2024 [...] 07, 2024 12:00am April 20, 2024 9:20pm gout flare TAKE THREE TABLETS (60MG) BY MOUTH ONCE [...] 4:17pm Start: 10-31-20[address] [facility] once daily as needed predniSONE (DELTASONE) 20 mg tablet TAKE 2 TABLETS BY MOUTH DAILY FOR 5 DAYS NEEDED FOR FOR GOUT FLARE 10/31/2022 Active Start: 10-17-2021 End: 12-05-2022 Prednisone 10 mg tablet Disc ontinued 10 mg PO daily 30 12 0 October 17, 2021 12:00am October 28, 2021 12:00am October 27, 2021 9:39am Unspecified contact dermatitis, unspecified cause Take 4 tabs once daily days 1-3 3 tabs once daily days 4-6 2 tabs once daily days 7-9 and 1 tab once daily days 10-12. Comment on above: TAKE 2 TABLETS BY [facility] DAILY FOR 5 DAYS NEEDED FOR FOR GOUT FLARE TAKE 4 TABLETS DAILY FOR 3 DAYS, 3 DAILY FOR 3 DAYS, 2 DAILY FOR 3 DAYS, then 1 DAILY FOR 3 DAYS sucralfate 1000 mg oral tablet (20 sources) Aluminum Complex Start: End: take 1 tablet by mouth before mealtime Sucralfate (Carafate) 1 gram tablet Discontinued 1 g PO before meals 84 28 0 November 05, 2023 1:44pm February 28, 2024 11:29am Crush the tablet prior to ingestion Start: 09-18-2023 End: 12-04-2024 vitamin k1 5 mg oral tablet (20 sources) Warfarin Reversal Agent, Vitamin K Start: 09-08-2019 End: 04-25-2021 take 1 tablet by mouth once daily Phytonadione (Vitamin K1) 5 mg tablet Discontinued 5 mg PO DAILY 2 0 September 08, 2019 6:14pm April 25, 2021 11:23am warfarin sodium 2 mg oral tablet (20 sources) Vitamin K Antagonist Start: 11-13-2024 take 1 tablet by mouth once daily Warfarin 4 mg tablet Active 4 mg PO daily Protocol: Adjustment Start Date: 03/19/25INR Value: 2.6INR Date: 03/18/25Recheck Date: 04/18/25 Condition: Sunday Dose/Route: 4 mg Instructions: 1 x 4 mg tablet Condition: Sunday Dose/Route: 4 mg Instructions: 1 x 4 mg tablet Condition: Sunday Dose/Route: 6 mg Instructions: 1.5 x 4 mg tablets Condition: Sunday Dose/Route: 6 mg Instructions: 1.5 x 4 mg tablets Condition: Dose/Route: 4 mg Instructions: 1 x 4 mg tablet Condition: Sunday Dose/Route: 4 mg Instructions: 1 x 4 mg tablet Condition: Sunday Dose/Route: 4 mg Instructions: 1 x 4 mg tablet November 13, 2024 12:00am take as directed Please contact the information source for Protocol details. Complies with drug therapy Start: 11-13-2024 take 1 tablet by marcus th once daily warfarin (COUMADIN) 3 mg tablet 3 mg orally daily; take as directed 11/20/2024 Active Start: 05-30-2024 End: 11-13-2024 Warfarin 1 mg tablet Discont inued 1 mg PO SUSA Protocol: Adjustment Start Date: Sunday11/05/24INR Value: 1.7INR Date: 11/05/24Recheck Date: 11/12/24 Condition: Sunday Dose/Route: 3 mg Instructions: 1 x 1 mg tablet, 1 x 2 mg tablet Condition: Sunday Dose/Route: 4 mg Instructions: 2 x 2 mg tablets Condition: Sunday Dose/Route: 4 mg Instructions: 2 x 2 mg tablets Condition: Sunday Dose/Route: 4 mg Instructions: 2 x 2 mg tablets Condition: Dose/Route: 4 mg Instructions: 2 x 2 mg tablets Condition: Sunday Dose/Route: 3 mg Instructions: 1 x 1 mg tablet, 1 x 2 mg tablet Condition: Sunday Dose/Route: 3 mg Instructions: 1 x 1 mg tablet, 1 x 2 mg tablet 30 November 13, 2024 11:08am November 13, 2024 4:02pm take as directed Please contact the information source for Protocol details. Start: 04-28-2024 End: 11-13-2024 Start: 04-24-2024 End: 05-10-2024 take 1 tablet by mouth once daily Warfarin 3 mg tablet Discontinued 3 mg PO DAILY Protocol: Adjustment Start Date: 05/08/24INR Value: 3.0INR Date: 05/08/24Recheck Date: 05/15/24 Condition: Sunday Dose/Route: 2 mg Instructions: 1 x 2 mg tablet Condition: Sunday Dose/Route: 2 mg Instructions: 1 x 2 mg tablet Condition: Sunday Dose/Route: 2 mg Instructions: 1 x 2 mg tablet Condition: Sunday Dose/Route: 2 mg Instructions: 1 x 2 mg tablet Condition: Dose/Route: 2 mg Instructions: 1 x 2 mg tablet Condition: Sunday Dose/Route: 2 mg Instructions: 1 x 2 mg tablet Condition: Sunday Dose/Route: 2 mg Instructions: 1 x 2 mg tablet 28 06April 24, 2024 2:02pm May 10, 2024 8:00pm blood thinner Please contact the information source for Protocol details. Start: 11-22-2023 End: 04-24-2024 take 3 mg by mouth once daily Warfarin 2 mg tablet Dis continued 3 mg PO DAILY April 09, 2024 10:58am April 24, 2024 2:03pm blood thinner Please contact the information source for Protocol details. Start: 09-12-2023 End: 04-07-2024 Warfarin 6 mg tablet Discont inued 6 mg PO BLOUNT Protocol: Adjustment Start Date: Sunday03/24/24INR Value: 1.8INR Date: 03/24/24Recheck Date: 04/07/24 Condition: Sunday Dose/Route: 2 mg Instructions: 1 x 2 mg tablet Condition: Sunday Dose/Route: 4 mg Instructions: 1 x 4 mg tablet Condition: Sunday Dose/Route: 4 mg Instructions: 1 x 4 mg tablet Condition: Sunday Dose/Route: 4 mg Instructions: 1 x 4 mg tablet Condition: Dose/Route: 4 mg Instructions: 1 x 4 mg tablet Condition: Sunday Dose/Route: 4 mg Instructions: 1 x 4 mg tablet Condition: Sunday Dose/Route: 4 mg Instructions: 1 x 4 mg tablet September 12, 2023 1:00am April 07, 2024 12:01pm Please contact the information source for Protocol details. Start: 09-12-2023 End: 04-07-2024 Start: 12-16-2021 End: 11-13-2024 Warfarin 2 mg tablet Discont inued 2 mg PO MOTUWETHFR Protocol: Adjustment Start Date: Sunday11/05/24INR Value: 1.7INR Date: 11/05/24Recheck Date: 11/12/24 Condition: Sunday Dose/Route: 3 mg Instructions: 1 x 1 mg tablet, 1 x 2 mg tablet Condition: Sunday Dose/Route: 4 mg Instructions: 2 x 2 mg tablets Condition: Sunday Dose/Route: 4 mg Instructions: 2 x 2 mg tablets Condition: Sunday Dose/Route: 4 mg Instructions: 2 x 2 mg tablets Condition: Dose/Route: 4 mg Instructions: 2 x 2 mg tablets Condition: Sunday Dose/Route: 3 mg Instructions: 1 x 1 mg tablet, 1 x 2 mg tablet Condition: Sunday Dose/Route: 3 mg Instructions: 1 x 1 mg tablet, 1 x 2 mg tablet November 13, 2024 11:08am November 13, 2024 4:03pm blood thinner take as directed Please contact the information source for Protocol details. Start: 09-11-2019 End: 10-27-2021 Warfarin 2 mg tablet Discont inued 2 mg PO .COMPLEX Protocol: Adjustment Start Date: Sunday10/25/21INR Value: 2.7INR Date: 10/25/21Recheck Date: 11/22/21 Condition: Sunday Dose/Route: 4 mg Instructions: 1 x 4 mg tablet Condition: Sunday Dose/Route: 4 mg Instructions: 1 x 4 mg tablet Condition: Sunday Dose/Route: 4 mg Instructions: 1 x 4 mg tablet Condition: Sunday Dose/Route: 4 mg Instructions: 1 x 4 mg tablet Condition: Dose/Route: 4 mg Instructions: 1 x 4 mg tablet Condition: Sunday Dose/Route: 4 mg Instructions: 1 x 4 mg tablet Condition: Sunday Dose/Route: 4 mg Instructions: 1 x 4 mg tablet 28 07May 19, 2021 10:21am October 27, 2021 10:20am 2 mg PO; 1 tab by mouth on Sunday and Sunday or as directed Please contact the information source for Protocol details. Start: 09-11-2019 End: 10-27-2021 Start: 06-18-2019 End: 04-30-2020 take 2 mg by mouth once, then take 1 tablet by mouth every month Warfarin 4 MG tablet Discontinued 4 mg PO MO Protocol: Patient Instructed to take:warfarin 2 mg (1 Tab) on BL[place], SAwarfarin 4 mg (1 Tab) on MO, , , TH, FR June 18, 2019 9:48am April 30, 2020 2:34pm Please contact the information source for Protocol details. Start: 06-18-2019 End: 04-30-2020 Warfarin 5 MG tablet Discont inued 5 mg PO SUTUWETHFRSA Protocol: Patient Instructed to take:warfarin 2 mg (1 Tab) on BLOUNT, SAwarfarin 4 mg (1 Tab) on MO, , , , FR June 18, 2019 9:48am April 30, 2020 2:33pm Please contact the information source for Protocol details. Start: 10-10-2018 End: 06-18-2019 take 5 mg by mouth every week, then take 5 mg by mouth every month Warfarin 4 mg tablet Discontinued 4 mg PO .COMPLEX Protocol: Patient Instructed to take:warfarin 4 mg (1 Tab) on BL[place], FR, SAwarfarin 5 mg (1 Tab) on MO, , , 90 October 10, 2018 5:09pm October 30, 2018 3:25pm 4 mg PO Sunday, Sunday and Sunday;take a 5 mg tablet all other days of the week; Please contact the information source for Protocol details. Start: 11-14-2017 End: 10-10-2018 take 4 tablets by mouth two times weekly, then take 5 tablets by mouth every month Warfarin 1 mg tablet Discontinued 2 mg PO TWICE A WEEK Protocol: Patient Instructed to take:warfarin 4 mg (1 Tab) on BL[place], FR, SAwarfarin 5 mg (1 Tab) on , , , November 14, 2017 12:04pm October 10, 2018 [...] October 10, 2018 5:04pm Start: 11-01-2017 End: 10-10-2018 take 1 tablet by mouth every month, then take 3 mg by mouth once Warfarin 4 mg tablet Discontinued 4 mg PO .COMPLEX Protocol: Patient Instructed to take:warfarin 4 mg (1 Tab) on BLOUNT, FR, SAwarfarin 5 mg (1 Tab) on MO, November 01, 2017 4:40pm October 10, 2018 5:08pm 4 mg PO 1 tablet by mouth x 6 days of the week and take a 3 mg tablet x 1 day of the week Please contact the information source for Protocol details. Start: 11-01-2017 End: 10-10-2018 take 1 tablet by mouth once daily, then take 4 tablets by mouth every month Warfarin 1 mg tablet Discontinued 1 mg PO daily Protocol: Patient Instructed to take:warfarin 1 mg (2 Tabs) on TU, WEwarfarin 4 mg (1 Tab) on BLOUNT, , TH, FR, SA 1 November 01, 2017 12:00am November 14, 2017 12:06pm Please contact the information source for Protocol details. Start: 11-01-2017 End: 10-10-2018 take 1 tablet by mouth once Warfarin (Coumadin) 3 mg t ablet Discontinued 3 mg PO .COMPLEX Protocol: Patient Instructed to take:warfarin 4 mg (1 Tab) on BL[place], FR, SAwarfarin 5 mg (1 Tab) on , , , November 01, 2017 4:40pm October 10, 2018 5:08pm 3 mg PO 1 tablet by mouth x 1 day of the week and a 4 mg tablet by mouth x 6 days of the week; or as directed dose changes frequently Please contact the information source for Protocol details. Start: 01-25-2016 End: 06-18-2019 Warfarin 5 mg tablet Discont inued 5 mg PO .COMPLEX Protocol: Patient Instructed to take:warfarin 4 mg (1 Tab) on [place], FR, SAwarfarin 5 mg (1 Tab) on , , , October 10, 2018 5:07pm October 30, 2018 3:25pm 5 mg PO Sun, , , ; take a 4 mg tablet on Sun, Sun, and Sun; Please contact the information source for Protocol details. Start: 01-25-2016 End: 04-09-2024 Warfarin 4 mg tablet Discont inued 0 mg PO .COMPLEX Protocol: Adjustment Start Date: Sunday03/24/24INR Value: 1.8INR Date: 03/24/24Recheck Date: 04/07/24 Condition: Sunday Dose/Route: 2 mg Instructions: 1 x 2 mg tablet Condition: Sunday Dose/Route: 4 mg Instructions: 1 x 4 mg tablet Condition: Sunday Dose/Route: 4 mg Instructions: 1 x 4 mg tablet Condition: Sunday Dose/Route: 4 mg Instructions: 1 x 4 mg tablet Condition: Dose/Route: 4 mg Instructions: 1 x 4 mg tablet Condition: Sunday Dose/Route: 4 mg Instructions: 1 x 4 mg tablet Condition: Sunday Dose/Route: 4 mg Instructions: 1 x 4 mg tablet 90 November 22, 2023 1:52pm April 07, 2024 11:49am orally 4mg -Sun, or use as directed; Please contact the information source for Protocol details. Start: 08-09-2014 End: 10-27-2015 Warfarin (Jantoven) 5 MG tab let Discontinued 4 mg PO [place] August 09, 2014 1:00am October 27, 2015 7:23pm Start: 08-09-2014 End: 12-06-2023 Warfarin 5 mg tablet Discont inued 5 mg PO SUTUWETHFRSA Protocol: Adjustment Start Date: Sunday10/25/21INR Value: 2.7INR Date: 10/25/21Recheck Date: 11/22/21 Condition: Sunday Dose/Route: 4 mg Instructions: 1 x 4 mg tablet Condition: Sunday Dose/Route: 4 mg Instructions: 1 x 4 mg tablet Condition: Sunday Dose/Route: 4 mg Instructions: 1 x 4 mg tablet Condition: Sunday Dose/Route: 4 mg Instructions: 1 x 4 mg tablet Condition: Dose/Route: 4 mg Instructions: 1 x 4 mg tablet Condition: Sunday Dose/Route: 4 mg Instructions: 1 x 4 mg tablet Condition: Sunday Dose/Route: 4 mg Instructions: 1 x 4 mg tablet 90 April 30, 2020 2:33pm October 27, 2021 9:41am As directed; Please contact the information source for Protocol details. Start: 08-09-2014 End: 10-27-2015 Warfarin (Jantoven) 6 MG tab let Discontinued 5 mg PO MOTUWETHFRSA August 09, 2014 1:00am October 27, 2015 7:23pm Start: 08-09-2014 End: 10-27-2015 Comment on above: As directed TAKE 1 TABLET BY MARCUS DAILY on sunday and sunday or as directed 100 ml zoledronic acid 0.05 mg/ml injection (20 sources) Bisphosphonate Start: 10-12-2022 End: 10-12-2022 Zoledronic Oseo-Xanoeops-Zfhjj 5 mg/100 mL piggyback Discontinued 0 .ROUTE ONCE 100 0 October 12, 2022 10:18am October 12, 2022 10:25am 5 mg once; infuse over 20 minutes Start: 10-12-2022 End: 10-12-2022 Start: 10-11-2020 End: 06-14-2022 Zoledronic Fezc-Rpfzalmv-Pjc er 5 mg/100 mL piggyback Discontinued 0 .ROUTE ONCE 100 0 November 03, 2021 7:42am June 14, 2022 12:15pm 5 mg once; infuse over 20 minutes Start: 10-11-2020 End: 06-14-2022 Start: 06-10-2020 End: 07-12-2020 Zoledronic Zitb-Adgktnka-Iym er 5 mg/100 mL piggyback Discontinued 0 .ROUTE ONCE 100 0 June 10, 2020 1:00am July 12, 2020 11:15am 5 mg once; infuse over 20 minutes Start: 06-10-2020 End: 07-12-2020 zoledronic acid (RECLAST) 5 mg/100 mL pgbk [...] Atrial flutter; 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: [Paroxysmal supraventricular tachycardia] Onset: 6 Resolved: 0 05-03-2016 Chronic Comment on above: S/P EP/RFA at [facility] 1 ; Chronic obstructive pulmonary disease and bronchiectasis (20 sources) Chronic obstructive lung disease; 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: [Chronic obstructive pulmonary disease, unspecified] Onset: 4 Chronic Comment on above: FEV1 71% Coagulation and hemorrhagic disorders (20 sources) Blood coagulation disorder; 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] 01-15-2023 Chronic Conduction disorders (8 sources) First degree atrioventricular block; 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: [Atrioventricular block, first degree] Onset: 4 12-06-2023 Chronic Diabetes mellitus without complication (20 sources) Type 2 diabetes mellitus; 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: [Type 2 diabetes mellitus without complications] Onset: 5 06-23-2022 Chronic Comment on above: PT STATES NO LONGER DIABETIC DUE TO WEIGHT LOSS Diseases of white blood cells (17 sources) Leukocytosis; 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: [Elevated white blood cell [...] 06-24-2019 Chronic Comment on above: ON MED Immunizations and screening for infectious disease (1 source) Encounter for immunization; 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: [Encounter for immunization] Onset: 5 Episodic Mycoses (20 sources) Candidiasis of mouth; 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: [Candidal stomatitis] Episodic Nutritional deficiencies (1 source) Vitamin D deficiency, unspecified; 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: [Vitamin D deficiency, unspecified] Onset: 5 Chronic Osteoporosis (20 sources) Osteoporosis; 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: [Age-related osteoporosis without current pathological fracture] Onset: 3 Chronic Other aftercare (2 sources) Drug therapy finding; 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: [Other long-term (current) drug therapy] 05-03-2016 Episodic Other aftercare (20 sources) Long-term current use of anticoagulant; 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: [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] 11-27-2020 Episodic Other aftercare (18 sources) Long-term current use of drug therapy; 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: [Other long-term (current) drug therapy] Onset: 5 05-03-2016 Episodic Other aftercare (17 sources) 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; 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: [Long-term (current) use of anticoagulants] Onset: 1 Episodic Other aftercare (1 source) Patient encounter status; 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: [Encounter for therapeutic drug level monitoring] 12-05-2023 Episodic Other aftercare (2 sources) 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; 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: [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] Onset: 1 [...] right external iliac artery Other circulatory disease (17 sources) H/O: atrial fibrillation; 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: [Personal history of other diseases of the circulatory system] 04-20-2024 Episodic Other connective tissue disease (20 sources) History of repair of hip joint; 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: [Presence of left artificial hip joint] 04-24-2021 Chronic Other connective tissue disease (20 sources) Foot pain; 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: [Pain in right foot] 08-07-2023 Episodic Other connective tissue disease (1 source) Pain in right foot; 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: [Pain in right foot] 08-15-2023 Episodic Other connective tissue disease (1 source) Other specified soft tissue disorders; 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: [Other specified soft tissue disorders] Onset: 5 Episodic Other ear and sense organ disorders (20 sources) Impacted cerumen; 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: [Impacted cerumen, right ear] 04-29-2020 Episodic Other ear and sense organ disorders (1 source) Impacted cerumen in right ear; 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: [Impacted cerumen, right ear] 04-29-2020 Episodic [...] field] 06-01-2021 Episodic Other lower respiratory disease (20 sources) Solitary pulmonary nodule; 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: [Solitary pulmonary nodule] Episodic Other lower respiratory disease (17 sources) H/O: pneumonia; 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: [Personal history of pneumonia (recurrent)] 04-20-2024 Episodic Other lower respiratory disease (20 sources) Hypoxia; 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: [Hypoxemia] 04-07-2024 Episodic Other screening for suspected conditions (not mental disorders or infectious disease) (20 sources) INR raised; 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: [Abnormal coagulation profile] Onset: 5 08-11-2022 Episodic Other skin disorders (20 sources) Sebaceous cyst of skin; 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: [Sebaceous cyst] 11-15-2022 Episodic Other skin disorders (20 sources) Sebaceous cyst; 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: [Sebaceous cyst] 11-15-2022 Episodic Phlebitis; thrombophlebitis and thromboembolism (20 sources) H/O: Deep vein thrombosis; 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: [Personal history of other venous thrombosis and embolism] 06-24-2019 Episodic Comment on above: 2008 Pulmonary heart disease (20 sources) Pulmonary hypertension; 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: [Pulmonary hypertension, unspecified] Onset: 5 07-16-2024 Chronic Comment on above: RVSP 42 mmHg Residual codes; unclassified (20 sources) Obstructive sleep apnea syndrome; 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: [Obstructive sleep apnea (adult) (pediatric)] Onset: 5 10-15-2024 Chronic Residual codes; unclassified (17 sources) Sleep apnea; 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: [Sleep apnea, unspecified] 08-14-2024 Chronic Residual codes; unclassified (20 sources) Daytime hypersomnia; 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: [Hypersomnia, unspecified] Onset: 5 07-16-2024 Chronic Residual codes; unclassified (2 sources) Obstructive sleep apnea (adult) (pediatric); 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: [Obstructive sleep apnea] Onset: 5 Chronic Residual codes; unclassified (1 source) Hypersomnia, unspecified; 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: [Hypersomnia, unspecified] Onset: 5 Chronic Residual codes; unclassified (1 source) At risk of disease; 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: [At risk for stroke] 05-08-2018 Respiratory failure; insufficiency; arrest (adult) (18 sources) Njgst-vc-stnbmif respiratory failure; 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: [Acute and chronic respiratory failure with hypoxia] Onset: 05-24-2024 Chronic Substance-related disorders (20 sources) Tobacco dependence syndrome; 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: [Nicotine dependence, unspecified, uncomplicated] Onset: Chronic Comment on above: Quit in 2020 Superficial injury; contusion (20 sources) Right lower leg contusion; 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: [Contusion of right lower leg, initial encounter] Episodic Syncope (20 sources) Near syncope; 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: [Syncope and collapse] 06-19-2019 Episodic Thyroid disorders (1 source) Hypothyroidism, unspecified; 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: [Hypothyroidism, unspecified] Onset: 5 Chronic Unclassified (2 sources) Drug therapy finding; 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: [On long-term drug therapy] 05-03-2016 Unclassified (1 source) Long-term current use of drug therapy; 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: [halfway current use of antiarrhythmic drug] 05-03-2016 Unclassified (1 source) Other persistent atrial fibrillation; 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: [Persistent atrial fibrillation (HCC)] Onset: 7 Past or Other Problems Problem Classification Problem Date Documented Date Episodic/Chronic Cardiac dysrhythmias (20 sources) Palpitations; 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: [Tachycardia] Onset: 05-03-2016 05-03-2016 Episodic Fluid and electrolyte disorders (20 sources) Hypokalemia; 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: [Hypokalemia] Onset: 06-29-2024 10-31-2022 Episodic Other circulatory disease (1 source) Personal history of other diseases of the circulatory system; 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: [Personal history of other diseases of the circulatory system] Onset: 12-30-2024 Episodic Other lower respiratory disease (2 sources) Other nonspecific abnormal finding of lung field; 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: [Swelling, mass, or lump in chest] Onset: 10-15-2024 Episodic Other lower respiratory disease (1 source) Hypoxemia; 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: [Hypoxemia] Onset: 06-09-2024 Episodic Pneumonia (except that caused by tuberculosis or sexually transmitted disease) (20 sources) Pneumonia; 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: [Pneumonia, unspecified organism] Onset: 06-02-2024 04-07-2024 Episodic Residual codes; unclassified (11 sources) Other specified personal risk factors, not elsewhere classified; 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: [Other specified personal history presenting hazards to health] Onset: 05-08-2018 05-08-2018 Episodic Residual codes; unclassified (20 sources) History of radiofrequency ablation operation for arrhythmia; 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: [Other specified postprocedural states] Onset: 07-30-2007 10-27-2021 Episodic Comment on above: At [facility] in April 30 008; Residual codes; unclassified (15 sources) Other specified postprocedural states; 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: [Personal history of surgery to heart and great vessels, presenting hazards to health] Onset: 07-30-2007 Episodic Results Test Name Value Interpretation Reference Range Facility Prothrombin Time w/INRon INR Coag (PPP) [Relative time] 4.7 {INR} Invalid Interpretation Code [facility] Comment on above: Result Comment: CRIT ICAL VALUE CALLED TO IAN GODDARD ([facility])04/22/25 [address].RESULTS READ BACK BY SAME. Performed By: #### L 300.3900 ####[facility] [address] [place], [place], [address] PT Coag (PPP) [Time] 45.3 s High 11.7-14.9 [facility] Comment on above: Performed By: #### L 300.3900 ####[facility] [address] [place], [place], [phone] Cardiology Visit Reporton Cardiology Visit Report Normal [facility] Pulmonary Visit Reporton Pulmonary Visit Report Normal [facility] normalized rat io (INR) calculationOrdered By: Franky Galloway on 03-18-2025 INR Coag (Bld) [Relative time] 2.6 {INR} [facility] Prothrombin Time w/INRon INR Coag (PPP) [Relative time] 2.6 {INR} Normal [facility] Comment on above: Performed By: #### L 300.3900 ####[facility] [address] [place], [place], [phone] PT Coag (PPP) [Time] 28.1 s High 11.7-14.9 [facility] Comment on above: Performed By: #### L 300.3900 ####[facility] [address] [place], [place], [phone] Prothrombin timeOrdered By: Franky Galloway on 03-18-2025 PT Coag (PPP) [Time] 28.1 s High 11.7-14.9 [facility] Cardiology Visit Reporton Cardiology Visit Report Normal [facility] Hemoglobin A1con 02-20-2025 HbA1c (Bld) [Mass fraction] 5.5 % Normal <=5.6 [facility] Comment on above: Order Comment: Order Date: 02/20/25Order Info: [id number] - A1C Result Comment: Norm al < 5.7 % Prediabetic 5.7 - 6.4 % Diabetic >or= 6.5 % Please note range changes. Performed By: #### L 501.9985 ####[facility] [address] [place], [place], [phone] Hemoglobin A1c percentageOrd ered By: Jake Licea on 02-20-2025 HbA1c (Bld) [Mass fraction] 5.5 % <5.7 [facility] Comment on above: Normal < 5.7 % Predi abetic 5.7 - 6.4 % Diabetic >or= 6.5 % Please note range changes. PSA,Total - Annual Screenon 02-20-2025 PSA,TOT SCREEN 1.89 ng/mL Normal 0.02-4.00 [facility] Comment on above: Order Comment: Order Date: 02/20/25Order Info: [id number] - PSA Result Comment: This test was performed using the [employer] tPSAmethod. Measured values of a patient??sample can varydepending on the testing procedure used. PSA valuesdetermined on patient samples by different testingprocedures cannot be used interchangeably. If there is achange in PSA assays while monitoring therapy, sequentialtesting should be performed to confirm baseline values. Performed By: #### L 501.9910 ####[facility] [address] [place], [address] Anion gap in Serum or Plasma Ordered By: Juve Robins on 02-17-2025 Anion gap [Moles/Vol] 13 mmol/L - [facility] BUN/creatinine ratioOrdered By: Juve Robins on 02-17-2025 Urea nitrogen/Creatinine [Mass ratio] 10.1 mg/mg 05-18 [facility] Bilirubin, totalOrdered By: Juve Robins on 02-17-2025 Bilirubin [Mass/Vol] 0.53 mg/dL 0.00-1.30 [facility] CBC-Complete Blood Cnt No Di ffon 02-17-2025 Erythrocyte distribution width (RBC) [Ratio] 15.2 % High 11.6-14.6 [facility] Comment on above: Order Comment: Order Date: 02/17/25Order Info: [id number] - CBC Performed By: #### L 501.9520, L100.0500, L500.4050 ####[facility] [address] [place], [address] Hematocrit (Bld) [Volume fraction] 43.2 % Normal 40-54 [facility] Comment on above: Order Comment: Order Date: 02/17/25Order Info: [id number] - CBC Performed By: #### L 501.9520, L100.0500, L500.4050 ####[facility] [address] [place], [address] Hemoglobin (Bld) [Mass/Vol] 14.2 g/dL Normal 13.0-16.5 [facility] Comment on above: Order Comment: Order Date: 02/17/25Order Info: [id number] - CBC Performed By: #### L 501.9520, L100.0500, L500.4050 ####[facility] [address] [place], [address] MCH (RBC) [Entitic mass] 29.6 pg Normal 27.0-32.0 [facility] Comment on above: Order Comment: Order Date: 02/17/25Order Info: [id number] - CBC Performed By: #### L 501.9520, L100.0500, L500.4050 ####[facility] [address] [place], [address] MCHC (RBC) [Mass/Vol] 32.9 g/dL Normal 32-36 [facility] Comment on above: Order Comment: Order Date: 02/17/25Order Info: [id number] - CBC Performed By: #### L 501.9520, L100.0500, L500.4050 ####[facility] [address] [place], [address] MCV (RBC) [Entitic vol] 90.0 fL Normal 80-94 [facility] Comment on above: Order Comment: Order Date: 02/17/25Order Info: [id number] - CBC Performed By: #### L 501.9520, L100.0500, L500.4050 ####[facility] [address] [place], [address] Platelet mean volume (Bld) [Entitic vol] 10.0 fL Normal 6.2-12.0 [facility] Comment on above: Order Comment: Order Date: 02/17/25Order Info: [id number] - CBC Performed By: #### L 501.9520, L100.0500, L500.4050 ####[facility] [address] [place], [address] Platelets (Bld) [#/Vol] 342 10*3/uL Normal 150-450 [facility] Comment on above: Order Comment: Order Date: 02/17/25Order Info: [id number] - CBC Performed By: #### L 501.9520, L100.0500, L500.4050 ####[facility] [address] [place], [address] RBC (Bld) [#/Vol] 4.80 10*6/uL Normal 4.6-6.2 [facility] Comment on above: Order Comment: Order Date: 02/17/25Order Info: [id number] - CBC Performed By: #### L 501.9520, L100.0500, L500.4050 ####[facility] [address] [place], [address] RDW SD 50.1 fl High 35.1-43.9 [facility] Comment on above: Order Comment: Order Date: 02/17/25Order Info: [id number] - CBC Performed By: #### L 501.9520, L100.0500, L500.4050 ####[facility] [address] [place], [address] WBC (Bld) [#/Vol] 9.8 10*3/uL Normal 4.4-11.0 [facility] Comment on above: Order Comment: Order Date: 02/17/25Order Info: [id number] - CBC Performed By: #### L 501.9520, L100.0500, L500.4050 ####[facility] [address] [place], [address] Carbon dioxide, total [Moles /volume] in Central venous bloodOrdered By: Juve Robins on 02-17-2025 CO2 [Moles/Vol] 24.0 mmol/L 21.0-32.0 [facility] Chloride assayOrdered By: Rony Robins on 02-17-2025 Chloride [Moles/Vol] 100 mmol/L 98-108 [facility] Comprehensive Metabolic Prof ilon 02-17-2025 Albumin [Mass/Vol] 4.4 g/dL Normal 3.4-4.8 [facility] Comment on above: Order Comment: Order Date: 02/17/25Order Info: 785- - CMPOrder Info: 3015-3 - TSH Performed By: #### L 501.9520, L100.0500, L500.4050 ####[facility] [address] [place], [address] Albumin/Globulin [Mass ratio] 1.3 {ratio} Normal 0.9-2.4 [facility] Comment on above: Order Comment: Order Date: 02/17/25Order Info: 785-07 - CMPOrder Info: 6-3 - TSH Performed By: #### L 501.9520, L100.0500, L500.4050 ####[facility] [address] [place], [address] ALK PHOS 65 U/L Normal 40-129 [facility] Comment on above: Order Comment: Order Date: 02/17/25Order Info: [id number] - CMPOrder Info: 3016-3 - TSH Performed By: #### L 501.9520, L100.0500, L500.4050 ####[facility] [address] [place], [address] ALT [Catalytic activity/Vol] 21 U/L Normal <=46 [facility] Comment on above: Order Comment: Order Date: 02/17/25Order Info: 785-1 - CMPOrder Info: 3016-3 - TSH Performed By: #### L 501.9520, L100.0500, L500.4050 ####[facility] [address] [place], [address] AST [Catalytic activity/Vol] 24 U/L Normal <=37 [facility] Comment on above: Order Comment: Order Date: 02/17/25Order Info: 0786-1 - CMPOrder Info: 3016-3 - TSH Performed By: #### L 501.9520, L100.0500, L500.4050 ####[facility] [address] [place], [address] Bilirubin [Mass/Vol] 0.53 mg/dL Normal 0.00-1.30 [facility] Comment on above: Order Comment: Order Date: 02/17/25Order Info: 785-1 - CMPOrder Info: 6-3 - TSH Performed By: #### L 501.9520, L100.0500, L500.4050 ####[facility] [address] [place], [address] BUN/CRE 10.1 RATIO Normal 10-20 [facility] Comment on above: Order Comment: Order Date: 02/17/25Order Info: 07- - CMPOrder Info: 3015-3 - TSH Performed By: #### L 501.9520, L100.0500, L500.4050 ####[facility] [address] [place], [address] Calcium [Mass/Vol] 9.5 mg/dL Normal 7.6-11.0 [facility] Comment on above: Order Comment: Order Date: 02/17/25Order Info: 0786- - CMPOrder Info: 3015-3 - TSH Performed By: #### L 501.9520, L100.0500, L500.4050 ####[facility] [address] [place], [address] Chloride [Moles/Vol] 100 mmol/L Normal 98-108 [facility] Comment on above: Order Comment: Order Date: 02/17/25Order Info: 0786-1 - CMPOrder Info: 3016-3 - TSH Performed By: #### L 501.9520, L100.0500, L500.4050 ####[facility] [address] [place], [address] CO2 [Moles/Vol] 24.0 mmol/L Normal 21.0-32.0 [facility] Comment on above: Order Comment: Order Date: 02/17/25Order Info: 0786-1 - CMPOrder Info: 3016-3 - TSH Performed By: #### L 501.9520, L100.0500, L500.4050 ####[facility] [address] [place], [address] Creatinine [Mass/Vol] 1.08 mg/dL Normal 0.70-1.20 [facility] Comment on above: Order Comment: Order Date: 02/17/25Order Info: 07 - CMPOrder Info: 3016-3 - TSH Performed By: #### L 501.9520, L100.0500, L500.4050 ####[facility] [address] [place], [address] GAP 13 Normal 5-15 [facility] Comment on above: Order Comment: Order Date: 02/17/25Order Info: 0786 - CMPOrder Info: 3016-3 - TSH Performed By: #### L 501.9520, L100.0500, L500.4050 ####[facility] [address] [place], [address] GFR/1.73 sq M.predicted among non-blacks MDRD (S/P/Bld) [Vol rate/Area] 74 mL/min/{1.73_m2} Normal >60 [facility] Comment on above: Order Comment: Order Date: 02/17/25Order Info: 0786 - CMPOrder Info: 3016-3 - TSH Result Comment: mL/m in/1.73m2 CKD-EPI Creatinine Equation (2020) Performed By: #### L 501.9520, L100.0500, L500.4050 ####[facility] [address] [place], [address] Globulin (S) [Mass/Vol] 3.3 g/dL Normal 2.2-4.2 [facility] Comment on above: Order Comment: Order Date: 02/17/25Order Info: 785-1 - CMPOrder Info: 3015-3 - TSH Performed By: #### L 501.9520, L100.0500, L500.4050 ####[facility] [address] [place], [address] Glucose [Mass/Vol] 86 mg/dL Normal 70-99 [facility] Comment on above: Order Comment: Order Date: 02/17/25Order Info: 785-07 - CMPOrder Info: 3 - TSH Performed By: #### L 501.9520, L100.0500, L500.4050 ####[facility] [address] [place], [address] Potassium [Moles/Vol] 4.3 mmol/L Normal 3.3-5.1 [facility] Comment on above: Order Comment: Order Date: 02/17/25Order Info: 07 - CMPOrder Info: 3015-3 - TSH Performed By: #### L 501.9520, L100.0500, L500.4050 ####[facility] [address] [place], [address] Sodium [Moles/Vol] 137 mmol/L Normal 133-145 [facility] Comment on above: Order Comment: Order Date: 02/17/25Order Info: 07- - CMPOrder Info: 3015-3 - TSH Performed By: #### L 501.9520, L100.0500, L500.4050 ####[facility] [address] [place], [address] T PROT 7.7 g/dL Normal 5.9-8.4 [facility] Comment on above: Order Comment: Order Date: 02/17/25Order Info: 785-1 - CMPOrder Info: 3015-3 - TSH Performed By: #### L 501.9520, L100.0500, L500.4050 ####[facility] [address] [place], [place], [phone] Urea nitrogen [Mass/Vol] 11 mg/dL Normal 4-19 [facility] Comment on above: Order Comment: Order Date: 02/17/25Order Info: 0786-1 - CMPOrder Info: 3016-3 - TSH Performed By: #### L 501.9520, L100.0500, L500.4050 ####[facility] [address] [place], [place], [phone] Erythrocyte distribution wid th ratioOrdered By: Juve Robins on 02-17-2025 Erythrocyte distribution width (RBC) [Ratio] 15.2 % High 11.6-14.6 [facility] Erythrocyte distribution wid th standard deviationOrdered By: Juve Robins on 02-17-2025 Erythrocyte distribution width (RBC) [Ratio] 50.1 fl High 35.1-43.9 [facility] Glomerular filtration rate ( GFR) estimation/1.73 sq m using serum, plasma, or whole bOrdered By: Juve Robins on 02-17-2025 GFR/1.73 sq M.predicted among non-blacks MDRD (S/P/Bld) [Vol rate/Area] 74 mL/min/{1.73_m2} >60 [facility] Comment on above: mL/min/1.73m2 CKD-EP I Creatinine Equation (2020) Hematocrit Auto (Bld) [Volum e fraction]Ordered By: Juve Robins on 02-17-2025 Hematocrit (Bld) [Volume fraction] 43.2 % 40-54 [facility] Hemoglobin measurementOrdere d By: Juve Robins on 02-17-2025 Hemoglobin (Bld) [Mass/Vol] 14.2 g/dL 13.0-16.5 [facility] L503.7505on 02-17-2025 Natriuretic peptide B (Bld) [Mass/Vol] 60 pg/mL Normal <=900 [facility] Comment on above: Order Comment: Order Date: 02/17/25Order Info: 0786-1 - CMPOrder Info: 3016-3 - TSH Result Comment: Hear t Failure Unlikely: < 300 pg/mLHeart Failure Likely< 50 Years: > 450 pg/mL50-75 Years: > 900 pg/mL>75 Years: > 1800 pg/mL Performed By: #### L 503.7505 ####[facility] [address] [place], [address] Laboratory - Chemistry and C hemistry - challengeOrdered By: Juve Robins on 02-17-2025 AST [Catalytic activity/Vol] 24 U/L <38 [facility] MCV (mean corpuscular volume ) determinationOrdered By: Juve Robins on 02-17-2025 MCV (RBC) [Entitic vol] 90.0 fL 80-94 [facility] Mean corpuscular hemoglobin (MCH) determinationOrdered By: Juve Robins on 02-17-2025 MCH (RBC) [Entitic mass] 29.6 pg 27.0-32.0 [facility] Mean corpuscular hemoglobin concentration (MCHC) determinationOrdered By: Juve Robins on 02-17-2025 MCHC (RBC) [Mass/Vol] 32.9 g/dL 32-36 [facility] Mean platelet volume determi nationOrdered By: Juve Robins on 02-17-2025 Platelet mean volume (Bld) [Entitic vol] 10.0 fL 6.2-12.0 [facility] Natriuretic peptide.B prohor annalise N-Terminal [Mass/volume] in Serum or PlasmaOrdered By: Juve Robins on 02-17-2025 Natriuretic peptide.B prohormone N-Terminal [Mass/Vol] 60 pg/mL <900 [facility] Comment on above: Heart Failure Unlike ly: < 300 pg/mLHeart Failure Likely< 50 Years: > 450 pg/mL50-75 Years: > 900 pg/mL>75 Years: > 1800 pg/mL No Panel InformationOrdered By: Juve Robins on 02-17-2025 24 U/L <38 [facility] Platelet countOrdered By: Rony Robins on 02-17-2025 Platelets (Bld) [#/Vol] 342 10*3/uL 150-450 [facility] Potassium measurement (mass/ volume)Ordered By: Juve Robins on 02-17-2025 Potassium (Unsp spec) [Mass/Vol] 4.3 mmol/L 3.3-5.1 [facility] RBC Auto (Bld) [#/Vol]Ordere d By: Juve Robins on 02-17-2025 RBC (Bld) [#/Vol] 4.80 10*6/uL 4.6-6.2 [facility] Serum creatinine measurement (mass/volume)Ordered By: Juve Robins on 02-17-2025 Creatinine [Mass/Vol] 1.08 mg/dL 0.70-1.20 [facility] Serum globulin measurementOr dered By: Juve Robins on 02-17-2025 Globulin (S) [Mass/Vol] 3.3 g/dL 2.2-4.2 [facility] Serum glucose measurement (m ass/volume)Ordered By: Juve Robins on 02-17-2025 Glucose [Mass/Vol] 86 mg/dL 70-99 [facility] Serum or plasma alanine duncan otransferase (ALT) measurementOrdered By: Juve Robins on 02-17-2025 ALT [Catalytic activity/Vol] 21 U/L <47 [facility] Serum or plasma albumin alfa urement (mass/volume)Ordered By: Juve Robins on 02-17-2025 Albumin [Mass/Vol] 4.4 g/dL 3.4-4.8 [facility] Serum or plasma albumin/glob ulin mass ratioOrdered By: Juve Robins on 02-17-2025 Albumin/Globulin [Mass ratio] 1.3 {ratio} 0.9-2.4 [facility] Serum or plasma alkaline dora sphatase measurementOrdered By: Juve Robins on 02-17-2025 ALP [Catalytic activity/Vol] 65 U/L 40-129 [facility] Serum or plasma calcium alfa urement (mass/volume)Ordered By: Juve Robins on 07-22-2025 Calcium [Mass/Vol] 9.5 mg/dL 7.6-11.0 [facility] Serum or plasma urea nitroge n measurement (mass/volume)Ordered By: Juve Robins on 02-17-2025 Urea nitrogen [Mass/Vol] 11 mg/dL 4-19 [facility] Sodium levelOrdered By: Shaista Robins on 02-17-2025 Sodium [Moles/Vol] 137 mmol/L 133-145 [facility] TSH DL <= 0.005 mIU/L QnOrde red By: Juve Robins on 02-17-2025 TSH Qn 2.220 uIU/mL 0.300-4.200 [facility] Thyroid Stim Hormone (TSH)on 02-17-2025 TSH 2.220 uIU/mL Normal 0.300-4.200 [facility] Comment on above: Order Comment: Order Date: 02/17/25Order Info: 0786-1 - CMPOrder Info: 3016-3 - TSH Performed By: #### L 501.9520, L100.0500, L500.4050 ####[facility] [address] [place], [place], [phone] Total proteinOrdered By: Gema Robins on 02-17-2025 Protein [Mass/Vol] 7.7 g/dL 5.9-8.4 [facility] White blood cell (WBC) count Ordered By: Juve Robins on 02-17-2025 WBC (Bld) [#/Vol] 9.8 10*3/uL 4.4-11.0 [facility] International normalized rat io (INR) calculationOrdered By: Franky Galloway on 02-16-2025 INR Coag (Bld) [Relative time] 2.5 {INR} [facility] Prothrombin Time w/INRon INR Coag (PPP) [Relative time] 2.5 {INR} Normal [facility] Comment on above: Performed By: #### L 300.3900 ####[facility] [address] [place], [place], [phone] PT Coag (PPP) [Time] 27.1 s High 11.7-14.9 [facility] Comment on above: Performed By: #### L 300.3900 ####[facility] [address] [place], [place], [phone] Prothrombin timeOrdered By: Franky Galloway on 02-16-2025 PT Coag (PPP) [Time] 27.1 s High 11.7-14.9 [facility] Prothrombin Time w/INRon INR Coag (PPP) [Relative time] 1.8 {INR} Normal [facility] Comment on above: Performed By: #### L 300.3900 ####[facility] [address] [place], [address] PT Coag (PPP) [Time] 21.6 s High 11.7-14.9 [facility] Comment on above: Performed By: #### L 300.3900 ####[facility] [address] [place], [place], [phone] Pulmonary Visit Reporton Pulmonary Visit Report Normal [facility] International normalized rat io (INR) calculationOrdered By: Franky Galloway on 01-16-2025 INR Coag (Bld) [Relative time] 2.0 {INR} [facility] Prothrombin Time w/INRon INR Coag (PPP) [Relative time] 2.0 {INR} Normal [facility] Comment on above: Performed By: #### L 300.3900 ####[facility] [address] [place], [address] PT Coag (PPP) [Time] 22.7 s High 11.7-14.9 [facility] Comment on above: Performed By: #### L 300.3900 ####[facility] [address] [place], [address] Prothrombin timeOrdered By: Franky Galloway on 01-16-2025 PT Coag (PPP) [Time] 22.7 s High 11.7-14.9 [facility] International normalized rat io (INR) calculationOrdered By: Franky Galloway on 01-07-2025 INR Coag (Bld) [Relative time] 1.7 {INR} [facility] Prothrombin Time w/INRon INR Coag (PPP) [Relative time] 1.7 {INR} Normal [facility] Comment on above: Performed By: #### L 300.3900 ####[facility] [address] [place], [place], [phone] PT Coag (PPP) [Time] 20.5 s High 11.7-14.9 [facility] Comment on above: Performed By: #### L 300.3900 ####[facility] [address] [place], [place], [phone] Prothrombin timeOrdered By: Franky Galloway on 01-07-2025 PT Coag (PPP) [Time] 20.5 s High 11.7-14.9 [facility] Low Dose CT Lung Screeningon 01-02-[address] Lung Screening Normal [facility] Bedside Glucoseon 12-30-2024 FINGERSTICK GLU 91 mg/dL Normal 74-106 [facility] Comment on above: Result Comment: KRZYSZTOF DASIAENT OF PATIENT CARE PER NURSING PROTOCOL Performed By: #### L 501.080 ####[facility] [address] [place], [place], [phone] EGD Reporton 12-30-2024 EGD Report Normal [facility] deOrdered By: Pablo Pichardo on 12-30-2024 Glucose [Mass/Vol] 91 mg/dL 74-106 [facility] Comment on above: MANAGEMENT OF PATIEN T CARE PER NURSING PROTOCOL International normalized rat io (INR) measurement by fingerstickOrdered By: Pablo Pichardo on 12-30-2024 INR Coag (BldC) [Relative time] 1.1 [facility] Comment on above: Critical Value > 4.0 MR/POSTOP.ANEon 12-30-2024 MR/POSTOP.ANE Normal [facility] MR/ULCESQFF4wv 12-30-2024 MR/POSTOPAN2 Normal [facility] Protime w/INR Fingerstickon 12-30-2024 INR Coag (PPP) [Relative time] 1.1 {INR} Normal [facility] Comment on above: Result Comment: Crit ical Value > 4.0 Performed By: #### L 9200.0000 ####[facility] [address] [place], [place], [phone] Protime Coagsen 13.1 SEC Normal 11.7-14.9 [facility] Comment on above: Performed By: #### L 9200.0000 ####[facility] [address] [place], [place], [phone] Surgery Specimen Level Vani 12-30-2024 Surgery Specimen Level IV Normal [facility] Comment on above: Performed By: #### P SUIV ####[facility] [address] [place], [place], [phone] Whole blood prothrombin time Ordered By: Pablo Pichardo on 12-30-2024 PT Coag (Bld) [Time] 13.1 s 11.7-14.9 [facility] MR/PAT.ANEon 12-29-2024 MR/PAT.ANE Normal [facility] MR/PAT.ANEon 12-26-2024 MR/PAT.ANE Normal [facility] MR/PAT.ANEon 12-25-2024 MR/PAT.ANE [facility] Anion gap in Serum or Plasma Ordered By: Rodríguez Portillo on 12-16-2024 Anion gap [Moles/Vol] 11 mmol/L 12-11 [facility] BUN/creatinine ratioOrdered By: Rodríguez Portillo on 12-16-2024 Urea nitrogen/Creatinine [Mass ratio] 11.1 mg/mg 05-18 [facility] Bilirubin, totalOrdered By: Rodríguez Portillo on 12-16-2024 Bilirubin [Mass/Vol] 0.48 mg/dL 0.00-1.30 [facility] Carbon dioxide, total [Moles /volume] in Central venous bloodOrdered By: Rodríguez Portillo on 12-16-2024 CO2 [Moles/Vol] 23.1 mmol/L 21.0-32.0 [facility] Chloride assayOrdered By: Kash Portillo on 12-16-2024 Chloride [Moles/Vol] 100 mmol/L 98-108 [facility] Comprehensive Metabolic Prof ilon 12-16-2024 Albumin [Mass/Vol] 4.1 g/dL Normal 3.4-4.8 [facility] Comment on above: Performed By: #### L 506.1001, L500.4050 ####[facility] [address] [place], [address] Albumin/Globulin [Mass ratio] 1.3 {ratio} Normal 0.9-2.4 [facility] Comment on above: Performed By: #### L 506.1001, L500.4050 ####[facility] [address] [place], [address] ALK PHOS 73 U/L Normal 40-129 [facility] Comment on above: Performed By: #### L 506.1001, L500.4050 ####[facility] [address] [place], [address] ALT [Catalytic activity/Vol] 14 U/L Normal <=46 [facility] Comment on above: Performed By: #### L 506.1001, L500.4050 ####[facility] [address] [place], [address] AST [Catalytic activity/Vol] 20 U/L Normal <=37 [facility] Comment on above: Performed By: #### L 506.1001, L500.4050 ####[facility] [address] [place], [address] Bilirubin [Mass/Vol] 0.48 mg/dL Normal 0.00-1.30 [facility] Comment on above: Performed By: #### L 506.1001, L500.4050 ####[facility] [address] [place], [address] BUN/CRE 11.1 RATIO Normal 10-20 [facility] Comment on above: Performed By: #### L 506.1001, L500.4050 ####[facility] [address] [place], [address] Calcium [Mass/Vol] 8.5 mg/dL Normal 7.6-11.0 [facility] Comment on above: Performed By: #### L 506.1001, L500.4050 ####[facility] [address] [place], [address] Chloride [Moles/Vol] 100 mmol/L Normal 98-108 [facility] Comment on above: Performed By: #### L 506.1001, L500.4050 ####[facility] [address] [place], [address] CO2 [Moles/Vol] 23.1 mmol/L Normal 21.0-32.0 [facility] Comment on above: Performed By: #### L 506.1001, L500.4050 ####[facility] [address] [place], [address] Creatinine [Mass/Vol] 1.15 mg/dL Normal 0.70-1.20 [facility] Comment on above: Performed By: #### L 506.1001, L500.4050 ####[facility] [address] [place], [address] GAP 11 Normal 5-15 [facility] Comment on above: Performed By: #### L 506.1001, L500.4050 ####[facility] [address] [place], [address] GFR/1.73 sq M.predicted among non-blacks MDRD (S/P/Bld) [Vol rate/Area] 69 mL/min/{1.73_m2} Normal >60 [facility] Comment on above: Result Comment: mL/m in/1.73m2 CKD-EPI Creatinine Equation (2020) Performed By: #### L 506.1001, L500.4050 ####[facility] [address] [place], [address] Globulin (S) [Mass/Vol] 3.1 g/dL Normal 2.2-4.2 [facility] Comment on above: Performed By: #### L 506.1001, L500.4050 ####[facility] [address] [place], [address] Glucose [Mass/Vol] 94 mg/dL Normal 70-99 [facility] Comment on above: Performed By: #### L 506.1001, L500.4050 ####[facility] [address] [place], [address] Potassium [Moles/Vol] 4.1 mmol/L Normal 3.3-5.1 [facility] Comment on above: Performed By: #### L 506.1001, L500.4050 ####[facility] [address] [place], [address] Sodium [Moles/Vol] 134 mmol/L Normal 133-145 [facility] Comment on above: Performed By: #### L 506.1001, L500.4050 ####[facility] [address] [place], [address] T PROT 7.3 g/dL Normal 5.9-8.4 [facility] Comment on above: Performed By: #### L 506.1001, L500.4050 ####[facility] [address] [place], [address] Urea nitrogen [Mass/Vol] 13 mg/dL Normal 4-19 [facility] Comment on above: Performed By: #### L 506.1001, L500.4050 ####[facility] [address] [place], [address] Glomerular filtration rate ( GFR) estimation/1.73 sq m using serum, plasma, or whole bOrdered By: Rodríguez Portillo on 12-16-2024 GFR/1.73 sq M.predicted among non-blacks MDRD (S/P/Bld) [Vol rate/Area] 69 mL/min/{1.73_m2} >60 [facility] Comment on above: mL/min/1.73m2 CKD-EP I Creatinine Equation (2020) International normalized rat io (INR) calculationOrdered By: Franky Galloway on 12-16-2024 INR Coag (Bld) [Relative time] 2.2 {INR} [facility] Laboratory - Chemistry and C hemistry - challengeOrdered By: Rodríguez Portillo on 12-16-2024 AST [Catalytic activity/Vol] 20 U/L <38 [facility] No Panel InformationOrdered By: Rodríguez Portillo on 12-16-2024 20 U/L <38 [facility] Potassium measurement (mass/ volume)Ordered By: Rodríguez Portillo on 12-16-2024 Potassium (Unsp spec) [Mass/Vol] 4.1 mmol/L 3.3-5.1 [facility] Prothrombin Time w/INRon INR Coag (PPP) [Relative time] 2.2 {INR} Normal [facility] Comment on above: Performed By: #### L 300.3900 ####[facility] [address] [place], [place], [phone] PT Coag (PPP) [Time] 25.3 s High 11.7-14.9 [facility] Comment on above: Performed By: #### L 300.3900 ####[facility] [address] [place], [place], [phone] Prothrombin timeOrdered By: Franky Galloway on 12-16-2024 PT Coag (PPP) [Time] 25.3 s High 11.7-14.9 [facility] Serum creatinine measurement (mass/volume)Ordered By: Rodríguez Portillo on 12-16-2024 Creatinine [Mass/Vol] 1.15 mg/dL 0.70-1.20 [facility] Serum globulin measurementOr dered By: Rodríguez Portillo on 12-16-2024 Globulin (S) [Mass/Vol] 3.1 g/dL 2.2-4.2 [facility] Serum glucose measurement (m ass/volume)Ordered By: Rodríguez Portillo on 12-16-2024 Glucose [Mass/Vol] 94 mg/dL 70-99 [facility] Serum or plasma alanine duncan otransferase (ALT) measurementOrdered By: Rodríguez Portillo on 12-16-2024 ALT [Catalytic activity/Vol] 14 U/L <47 [facility] Serum or plasma albumin alfa urement (mass/volume)Ordered By: Rodríguez Portillo on 12-16-2024 Albumin [Mass/Vol] 4.1 g/dL 3.4-4.8 [facility] Serum or plasma albumin/glob ulin mass ratioOrdered By: Rodríguez Portillo on 12-16-2024 Albumin/Globulin [Mass ratio] 1.3 {ratio} 0.9-2.4 [facility] Serum or plasma alkaline dora sphatase measurementOrdered By: Rodríguez Portillo on 12-16-2024 ALP [Catalytic activity/Vol] 73 U/L 40-129 [facility] Serum or plasma calcium alfa urement (mass/volume)Ordered By: Rodríguez Portillo on 12-16-2024 Calcium [Mass/Vol] 8.5 mg/dL 7.6-11.0 [facility] Serum or plasma urea nitroge n measurement (mass/volume)Ordered By: Rodríguez Portillo on 12-16-2024 Urea nitrogen [Mass/Vol] 13 mg/dL 4-19 [facility] Sodium levelOrdered By: Rodríguez Portillo on 12-16-2024 Sodium [Moles/Vol] 134 mmol/L 133-145 [facility] Total proteinOrdered By: Cuong Portillo on 12-16-2024 Protein [Mass/Vol] 7.3 g/dL 5.9-8.4 [facility] Vitamin D,25 Hydroxyon 12-16 Vitamin D 25-OH 34.9 ng/mL Normal 30-100 [place] [facility] Comment on above: Result Comment: Marie min D StatusDeficiency: <20 ng/mL (50nmol/L)Insufficiency: 20-30 ng/mL (50-75 nmol/L)Sufficiency: 30-100 ng/mL (75-250 nmol/L)Toxicity: >100 ng/mL (>250 nmol/L) Performed By: #### L 506.1001, L500.4050 ####[facility] [address] [place], [address] [facility] CNPN Telephone (AGCARDPOB ) ROGER MART ([id number]) 1955 M Date Time Provider Department 12/15/24 DWAYNE WELLS AGCARDPOB During your visit today, we recorded the following information about you: Juana Michel RN 12/15/2024 11:50 AM Signed 12/09/24 OV from [place] [facility] scanned to chart for review. Juana Michel RN Allergies As of Date: 12/15/2024 Noted Allergy Reaction INSECT EXTRACTS 08/25/2015 7 - Swelling MED-HIST 08/25/2015 7 - Swelling Comments: SECONOL SECOBARBITAL 10/30/2018 14 - Other: See Comments SUCCINYLCHOLINE 12/05/2016 7 - Swelling Date Reviewed: 12/04/2024 Reviewed by: Dwayne Wells MD - Fully Assessed Reason for Visit: Consult [502] Prescriptions as of 01/07/2025 - dilTIAZem CD (CARDIZEM CD, CARTIA XT) 240 mg 24 hr capsule Take 1 capsule by mouth every 12 hours. - fluticasone-umeclidin- vilanter (TRELEGY ELLIPTA) 100-62.5-25 mcg inhalation powder Fluticasone-Umeclidin- Vilanter (Trelegy Ellipta) 100-62.5-25 mcg blister with device Active 1 NMA INHALATION Q24H 60 November 21, 2024 12:00am - TRELEGY ELLIPTA 200-62.5-25 mcg inhalation powder - MUCUS RELIEF ER 1,200 mg Ta12 TAKE 1 TABLET BY MOUTH EVERY 12 HOURS NEEDED FOR COUGH - ipratropium-albuterol (DUONEB) 0.5 mg-3 mg(2.5 mg base)/3 mL nebu inhale contents of one vial via nebulizer three times a day As Needed for shortness of breath or wheezing - nystatin (MYCOSTATIN) 100,000 unit/mL suspension swish and swallow 1ml BY MOUTH THREE TIMES DAILY FOR 5 DAYS - warfarin (COUMADIN) 1 mg tablet TAKE 1 TABLET BY MOUTH DAILY on SUNDAY, SUNDAY, and SUNDAY, or DIRECTED - warfarin (COUMADIN) 3 mg tablet 3 mg orally daily; take as directed - albuterol HFA (PROVENTIL HFA, VENTOLIN HFA) 90 mcg/actuation inhaler Inhale 2 Puffs as instructed every 4 hours as needed for wheezing/shortness of breath. - lidocaine viscous (XYLOCAINE) 2 % solution Take 5 mL by mouth as needed. - pantoprazole DR (PROTONIX) 40 mg tablet Take 80 mg by mouth once daily. - allopurinol (ZYLOPRIM) 300 mg tablet Take 1 tablet by mouth once daily. - amoxicillin (AMOXIL) 500 mg capsule TAKE 4 CAPSULES BY MOUTH ONE HOUR PRIOR TO DENTAL APPOINTMENT. - predniSONE (DELTASONE) 20 mg tablet TAKE 2 TABLETS BY MOUTH DAILY FOR 5 DAYS NEEDED FOR FOR GOUT FLARE - denosumab (PROLIA) 60 mg/mL Inject 60 mg subcutaneously once every 6 months. - BREZTRI AEROSPHERE 160-9-4.8 mcg/actuation HFA aerosol inhaler inhale 2 (TWO) puffs TWICE DAILY - dofetilide (TIKOSYN) 500 mcg capsule Take 1 capsule by mouth twice daily. - warfarin (COUMADIN) 2 mg tablet TAKE 1 TABLET BY MOUTH DAILY on sunday and sunday or as directed - cholecalciferol, vitD3,/vit K2 (VITAMIN D3-VITAMIN K2) 250 mcg (10,000 unit)-45 mcg cap Take 1 tablet by mouth once daily. - glycopyrrolate-formote rol 9-4.8 mcg Inhale 2 Puffs as instructed twice daily. - zoledronic acid (RECLAST) 5 mg/100 mL pgbk PREMIX piggyback Inject 5 mg intravenously every year. - KLOR-CON M10 10 mEq tablet Take 10 mEq by mouth once daily. - EPIPEN 2-HYACINTH 0.3 mg/0.3 mL auto-injector Inject 0.3 mg subcutaneously as needed (allergic reactions). - warfarin (COUMADIN) 4 mg tablet As directed - furosemide (LASIX) 40 mg tablet Take 40 mg by mouth once daily. - Fish Oil-[place]-3 Fatty Acids 300-1,000 mg cap Take 1 tablet by mouth once daily. 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 [Z* Essential hypertension [I10] Persistent atrial fibrillation (HCC) [I48.19] At risk for stroke [Z91.89] Lung nodule [R91.1] 12/27/2021 Gastroesophageal reflux disease [K21.9] 05/02/2022 Osteoporosis [M81.0] 11/02/2022 First degree atrioventricular block [I44.0] 12/06/2023 Encounter for monitoring dofetilide therapy [Z5*12/03/2024 Daytime hypersomnia [G47.10] 08/27/2024 Gout [M10.9] 12/04/2024 History of angioplasty of peripheral vessel [Z9*12/04/2024 Obstructive sleep apnea syndrome [G47.33] 09/12/2024 Mild chronic obstructive pulmonary disease (HCC*05/07/2024 Pulmonary hypertension (HCC) [I27.20] 12/04/2024 Type 2 diabetes mellitus (HCC) [E11.9] 12/04/2024 Encounter Status:Closed by JUANA MICHEL on 01/07/25 [facility] 12 Lead EKG performed by BMS on 12-09-2024 12 Lead EKG performed by BMS Normal [facility] Cardiology Visit Reporton Cardiology Visit Report Normal [facility] Endocrinology Visit Reporton 12-09-2024 Endocrinology Visit Report Normal [facility] International normalized rat io (INR) calculationOrdered By: Franky Galloway on 12-09-2024 INR Coag (Bld) [Relative time] 3.4 {INR} [facility] Laboratory - Hematology and Cell countsOrdered By: Rodríguez Portillo on 12-09-2024 HbA1c (Bld) [Mass fraction] 5.3 % 4.2-6.3 [facility] No Panel InformationOrdered By: Rodríguez Portillo on 12-09-2024 5.3 % 4.2-6.3 [facility] Prothrombin Time w/INRon INR Coag (PPP) [Relative time] 3.4 {INR} Normal [facility] Comment on above: Performed By: #### L 300.3900 ####[facility] [address] [place], [address] PT Coag (PPP) [Time] 34.9 s High 11.7-14.9 [facility] Comment on above: Performed By: #### L 300.3900 ####[facility] [address] [place], [phone] Prothrombin timeOrdered By: Franky Galloway on 12-09-2024 PT Coag (PPP) [Time] 34.9 s High 11.7-14.9 [facility] CNOVon 12-04-2024 CNOV Office Visit (AGCARDPOB) ROGER MART ([id number]) 1955 Date Time Provider Department 12/04/24 9:00 AM DWAYNE WELLS AGCARDPOB During your visit today, we recorded the following information about you: Pulse Respiration Blood pressure Weight 64/minute 18/minute 120/64 73.9 kg Height 1.702 m Mis Ng MA 12/04/2024 9:41 AM Signed Patient complains of high rate of pulse was recently visit for the same thing . Dwayne Wells MD 12/04/2024 9:41 AM Signed PRIMARY CARE PHYSICIAN: [address] [place] [phone] Patient Care Team: Adriel Khan MD as PCP - General (Internal Medicine) Dwayne Wells MD as Specialty Senior Mortgage Loan Processor (Cardiology) Tray Santiago MD as Specialty Senior Mortgage Loan Processor (Cardiology) Pablo Pichardo DO as Specialty Senior Mortgage Loan [employer]or (Gastroenterology) Dash Uriarte as Specialty Senior Mortgage Loan Processor (Pulmonary Disease) Franky Galloway APRN.CNP as Nurse Practitioner (Cardiology) CHIEF COMPLAINT: Follow up for arrhythmia HISTORY OF PRESENT ILLNESS: Mr. Mart is a 69 year old male who presents today for a cardiovascular medicine follow-up visit. Recording using ambient AI software for draft documentation of the visit was discussed with the patient/authorized sales representative; all questions welcomed and answered. Patient/authorized sales representative agreed to proceed History from previous notes, edited as needed and/or generated by dictation with use of AI.: Patient Overview: Mr. Mart has a long history of atrial fibrillation, likely since the . Initially, it was symptomatic and refractory to medical therapy. In 2007, he underwent atrial fibrillation catheter ablation at [facility], which was complicated by an acute [...] redo catheter ablation in September 2015 at [facility], which also targeted multiple atypical left atrial [...] therapy, leading to a catheter ablation at [facility] in 2007. This procedure was complicated [...] a redo catheter ablation in 09/2015 at [facility], which targeted multiple atypical left atrial arrhythmias, [...] of rec (more content not included)... Normal [facility] ECG B/O W INTERP (MED OFFICE )on 12-04-2024 Interpretation and review of laboratory results Abnormal [facility] Atypical atrial flutter with average ventricular response 104 bpm generally 2-1 AV conduction with some variability; normal QRS duration 80 ms; QTc 449 ms, appropriate on dofetilide 500 mcg twice daily [facility] Prothrombin Time w/INRon INR Coag (PPP) [Relative time] 2.2 {INR} Normal [facility] Comment on above: Performed By: #### L 300.3900 ####[facility] [address] [place], [place], [phone] PT Coag (PPP) [Time] 24.5 s High 11.7-14.9 [facility] Comment on above: Performed By: #### L 300.3900 ####[facility] [address] [place], [place], [phone] 12 Lead EKGon 11-25-2024 12 Lead EKG Normal [facility] Absolute lymphocyte countOrd ered By: Gagandeep Arechiga on 11-25-2024 Lymphocytes Auto (Unsp spec) [#/Vol] 2.07 10*3/uL 0.83-4.51 [facility] Absolute neutrophil countOrd ered By: Gagandeep Arechiga on 11-25-2024 Neutrophils (Bld) [#/Vol] 6.6 10*3/uL 2.0-7.7 [facility] Activated partial thrombopla stin time (aPTT) in platelet poor plasma by coagulation aOrdered By: Gagandeep Arechiga on 11-25-2024 aPTT Coag (PPP) [Time] 50.8 s High 24.1-36.2 [facility] Anion gap in Serum or Plasma Ordered By: Gagandeep Arechiga on 11-25-2024 Anion gap [Moles/Vol] 14 mmol/L 5-15 [facility] Automated lymphocyte count a s percentage of total leukocytesOrdered By: Gagandeep Arechiga on 11-25-2024 Lymphocytes/100 WBC Auto (Unsp spec) 21.1 % 19-41 [facility] BUN/creatinine ratioOrdered By: Gagandeep Arechiga on 11-25-2024 Urea nitrogen/Creatinine [Mass ratio] 13.9 mg/mg 10- [facility] Basic Metabolic Profile (BMP )on 11-25-2024 BUN/CRE 13.9 RATIO Normal - [facility] Comment on above: Performed By: #### L 500.2500, L501.4021, L100.0100 ####[facility] [address] [place], [address] Calcium [Mass/Vol] 9.7 mg/dL Normal 7.6-11.0 [facility] Comment on above: Performed By: #### L 500.2500, L501.4021, L100.0100 ####[facility] [address] [place], [address] Chloride [Moles/Vol] 100 mmol/L Normal 98-108 [facility] Comment on above: Performed By: #### L 500.2500, L501.4021, L100.0100 ####[facility] [address] [place], [address] CO2 [Moles/Vol] 26.0 mmol/L Normal 21.0-32.0 [facility] Comment on above: Performed By: #### L 500.2500, L501.4021, L100.0100 ####[facility] [address] [place], [address] Creatinine [Mass/Vol] 1.32 mg/dL High 0.70-1.20 [facility] Comment on above: Performed By: #### L 500.2500, L501.4021, L100.0100 ####[facility] [address] [place], [address] ECRCL 52.82 ml/min Normal 50-250 [facility] Comment on above: Performed By: #### L 500.2500, L501.4021, L100.0100 ####[facility] [address] [place], [address] GAP 14 Normal 5-15 [facility] Comment on above: Performed By: #### L 500.2500, L501.4021, L100.0100 ####[facility] [address] [place], [address] GFR/1.73 sq M.predicted among non-blacks MDRD (S/P/Bld) [Vol rate/Area] 58 mL/min/{1.73_m2} Low >60 [facility] Comment on above: Result Comment: mL/m in/1.73m2 CKD-EPI Creatinine Equation (2020) Performed By: #### L 500.2500, L501.4021, L100.0100 ####[facility] [address] [place], [address] Glucose [Mass/Vol] 84 mg/dL Normal 70-99 [facility] Comment on above: Performed By: #### L 500.2500, L501.4021, L100.0100 ####[facility] [address] [place], [address] Potassium [Moles/Vol] 4.0 mmol/L Normal 3.3-5.1 [facility] Comment on above: Performed By: #### L 500.2500, L501.4021, L100.0100 ####[facility] [address] [place], [address] Sodium [Moles/Vol] 140 mmol/L Normal 133-145 [facility] Comment on above: Performed By: #### L 500.2500, L501.4021, L100.0100 ####[facility] [address] [place], [address] Urea nitrogen [Mass/Vol] 18 mg/dL Normal 4-19 [facility] Comment on above: Performed By: #### L 500.2500, L501.4021, L100.0100 ####[facility] [address] [place], [address] Basophil percentageOrdered B y: Gagandeep Arechgia on 11-25-2024 Basophils/100 WBC (Bld) 0.8 % 0-1 [facility] CBC W/Diff, Automatedon 10-29 Absolute Lymph 2.07 X10 3/uL Normal 0.83-4.51 [facility] Comment on above: Performed By: #### L 500.2500, L501.4021, L100.0100 ####[facility] [address] [place], [address] Absolute Neut 6.6 X10 3/uL Normal 2.0-7.7 [facility] Comment on above: Performed By: #### L 500.2500, L501.4021, L100.0100 ####[facility] [address] [place], [address] Basophils/100 WBC (Bld) 0.8 % Normal 0-1 [facility] Comment on above: Performed By: #### L 500.2500, L501.4021, L100.0100 ####[facility] [address] [place], [address] Eosinophils/100 WBC (Bld) 1.4 % Normal 0-5 [facility] Comment on above: Performed By: #### L 500.2500, L501.4021, L100.0100 ####[facility] [address] [place], [address] Erythrocyte distribution width (RBC) [Ratio] 17.1 % High 11.6-14.6 [facility] Comment on above: Performed By: #### L 500.2500, L501.4021, L100.0100 ####[facility] [address] [place], [address] Hematocrit (Bld) [Volume fraction] 42.6 % Normal 40-54 [facility] Comment on above: Performed By: #### L 500.2500, L501.4021, L100.0100 ####[facility] [address] [place], [address] Hemoglobin (Bld) [Mass/Vol] 14.2 g/dL Normal 13.0-16.5 [facility] Comment on above: Performed By: #### L 500.2500, L501.4021, L100.0100 ####[facility] [address] [place], [address] IG% 0.500 Normal 0.0-0.9 [facility] Comment on above: Result Comment: IG% - Immature Granulocytes (promyelocytes, myelocytes andmetamyelocytes) > 1% indicates that a LEFT SHIFT is Present. Performed By: #### L 500.2500, L501.4021, L100.0100 ####[facility] [address] [place], [address] Lymphocytes/100 WBC (Bld) 21.1 % Normal 19-41 [facility] Comment on above: Performed By: #### L 500.2500, L501.4021, L100.0100 ####[facility] [address] [place], [address] MCH (RBC) [Entitic mass] 29.5 pg Normal 27.0-32.0 [facility] Comment on above: Performed By: #### L 500.2500, L501.4021, L100.0100 ####[facility] [address] [place], [address] MCHC (RBC) [Mass/Vol] 33.3 g/dL Normal 32-36 [facility] Comment on above: Performed By: #### L 500.2500, L501.4021, L100.0100 ####[facility] [address] [place], [address] MCV (RBC) [Entitic vol] 88.4 fL Normal 80-94 [facility] Comment on above: Performed By: #### L 500.2500, L501.4021, L100.0100 ####[facility] [address] [place], [address] Monocytes/100 WBC (Bld) 8.7 % Normal 0-10 [facility] Comment on above: Performed By: #### L 500.2500, L501.4021, L100.0100 ####[facility] [address] [place], [address] Neutrophils/100 WBC (Bld) 67.5 % Normal 47-70 [facility] Comment on above: Performed By: #### L 500.2500, L501.4021, L100.0100 ####[facility] [address] [place], [address] Nucleated RBC (Bld) [#/Vol] 0 10*3/uL Normal 0-5 [facility] Comment on above: Performed By: #### L 500.2500, L501.4021, L100.0100 ####[facility] [address] [place], [address] Platelet mean volume (Bld) [Entitic vol] 9.8 fL Normal 6.2-12.0 [facility] Comment on above: Performed By: #### L 500.2500, L501.4021, L100.0100 ####[facility] [address] [place], [address] Platelets (Bld) [#/Vol] 302 10*3/uL Normal 150-450 [facility] Comment on above: Performed By: #### L 500.2500, L501.4021, L100.0100 ####[facility] [address] [place], [address] RBC (Bld) [#/Vol] 4.82 10*6/uL Normal 4.6-6.2 [facility] Comment on above: Performed By: #### L 500.2500, L501.4021, L100.0100 ####[facility] [address] [place], [address] RDW SD 54.5 fl High 35.1-43.9 [facility] Comment on above: Performed By: #### L 500.2500, L501.4021, L100.0100 ####[facility] [address] [place], [address] WBC (Bld) [#/Vol] 9.8 10*3/uL Normal 4.4-11.0 [facility] Comment on above: Performed By: #### L 500.2500, L501.4021, L100.0100 ####[facility] [address] [place], [address] Carbon dioxide, total [Moles /volume] in Central venous bloodOrdered By: Gagandeep Arechiga on 11-25-2024 CO2 [Moles/Vol] 26.0 mmol/L 21.0-32.0 [facility] Chest 1 View (Portable)on Chest 1 View (Portable) Normal [facility] Chloride assayOrdered By: Colby Arechiga on 11-25-2024 Chloride [Moles/Vol] 100 mmol/L 98-108 [facility] D-Dimer Quantitative (DVT/PE )on 11-25-2024 D-DIMER QUANT < 0.27 Low 0.27-0.49 [facility] Comment on above: Result Comment: NORM AL D-Dimer level (<0.50) indicates no DVT or PE. Performed By: #### L 300.8000 ####[facility] [address] [place], [address] Emergency Department Summary on 11-25-2024 Emergency Department Summary Normal [facility] Eosinophil percentageOrdered By: Gagandeep Arechiga on 11-25-2024 Eosinophils/100 WBC (Bld) 1.4 % 0-5 [facility] Erythrocyte distribution wid th ratioOrdered By: Gagandeep Arechiga on 11-25-2024 Erythrocyte distribution width (RBC) [Ratio] 17.1 % High 11.6-14.6 [facility] Erythrocyte distribution wid th standard deviationOrdered By: Gagandeep Arechiga on 11-25-2024 Erythrocyte distribution width (RBC) [Ratio] 54.5 fl High 35.1-43.9 [facility] Glomerular filtration rate ( GFR) estimation/1.73 sq m using serum, plasma, or whole bOrdered By: Gagandeep Arechiga on 11-25-2024 GFR/1.73 sq M.predicted among non-blacks MDRD (S/P/Bld) [Vol rate/Area] 58 mL/min/{1.73_m2} Low >60 [facility] Comment on above: mL/min/1.73m2 CKD-EP I Creatinine Equation (2020) Hematocrit Auto (Bld) [Volum e fraction]Ordered By: Gagandeep Arechiga on 11-25-2024 Hematocrit (Bld) [Volume fraction] 42.6 % 40-54 [facility] Hemoglobin measurementOrdere d By: Gagandeep Arechiga on 11-25-2024 Hemoglobin (Bld) [Mass/Vol] 14.2 g/dL 13.0-16.5 [facility] Immature granulocytes/100 WB C Auto (Bld)Ordered By: Gagandeep Arechiga on 11-25-2024 Immature granulocytes/100 WBC (Bld) 0.500 % 0.0-0.9 [facility] Comment on above: IG% - Immature Granu locytes (promyelocytes, myelocytes and metamyelocytes) > 1% indicates that a LEFT SHIFT is Present. International normalized rat io (INR) calculationOrdered By: Gagandeep Arechiga on 11-25-2024 INR Coag (Bld) [Relative time] 2.4 {INR} [facility] L499.0042on 11-25-2024 Trop T High Sen 22 ng/L Normal <=22 [facility] Comment on above: Performed By: #### L 499.0042 ####[facility] [address] [place], [address] L499.0043on 11-25-2024 Trop T High Sen Normal <=22 [facility] Comment on above: Result Comment: Canc elled via OM: Order cancelled - Patient discharged Performed By: #### L 499.0043 ####[facility] [address] [place], [address] L501.4021on 11-25-2024 Trop T High Sen 24 ng/L High <=22 [facility] Comment on above: Performed By: #### L 500.2500, L501.4021, L100.0100 ####[facility] [address] [place], [address] MCV (mean corpuscular volume ) determinationOrdered By: Gagandeep Arechiga on 11-25-2024 MCV (RBC) [Entitic vol] 88.4 fL 80-94 [facility] Mean corpuscular hemoglobin (MCH) determinationOrdered By: Gagandeep Arechiga on 11-25-2024 MCH (RBC) [Entitic mass] 29.5 pg 27.0-32.0 [facility] Mean corpuscular hemoglobin concentration (MCHC) determinationOrdered By: Gagandeep Arechiga on 11-25-2024 MCHC (RBC) [Mass/Vol] 33.3 g/dL 32-36 [facility] Mean platelet volume determi nationOrdered By: Gagandeep Arechiga on 11-25-2024 Platelet mean volume (Bld) [Entitic vol] 9.8 fL 6.2-12.0 [facility] Monocyte percentageOrdered B y: Gagandeep Arechiga on 11-25-2024 Monocytes/100 WBC (Bld) 8.7 % 0-10 [facility] Neutrophil percentageOrdered By: Gagandeepsharri Arechiga on 11-25-2024 Neutrophils/100 WBC (Bld) 67.5 % 47-70 [facility] Nucleated red blood cell per centageOrdered By: Gagandeep Arechiga on 11-25-2024 Nucleated RBC/100 WBC (Bld) [Ratio] 0 % 0-5 [facility] Partial Thromboplast Timeon 11-25-2024 aPTT Coag (Bld) [Time] 50.8 s High 24.1-36.2 [facility] Comment on above: Performed By: #### L 300.4310, L300.3900 ####[facility] [address] [place], [address] Platelet countOrdered By: Colby Arechiga on 11-25-2024 Platelets (Bld) [#/Vol] 302 10*3/uL 150-450 [facility] Potassium measurement (mass/ volume)Ordered By: Gagandeep Arechiga on 11-25-2024 Potassium (Unsp spec) [Mass/Vol] 4.0 mmol/L 3.3-5.1 [facility] Prothrombin Time w/INRon INR Coag (PPP) [Relative time] 2.4 {INR} Normal [facility] Comment on above: Performed By: #### L 300.4310, L300.3900 ####[facility] [address] [place], [address] PT Coag (PPP) [Time] 26.4 s High 11.7-14.9 [facility] Comment on above: Performed By: #### L 300.4310, L300.3900 ####[facility] [address] [place], [address] Prothrombin timeOrdered By: Gagandeep Arechiga on 11-25-2024 PT Coag (PPP) [Time] 26.4 s High 11.7-14.9 [facility] RBC Auto (Bld) [#/Vol]Ordere d By: Gagandeep Arechiga on 11-25-2024 RBC (Bld) [#/Vol] 4.82 10*6/uL 4.6-6.2 [facility] Serum creatinine measurement (mass/volume)Ordered By: Gagandeep Arechiga on 11-25-2024 Creatinine [Mass/Vol] 1.32 mg/dL High 0.70-1.20 [facility] Serum glucose measurement (m ass/volume)Ordered By: Gagandeep Arechiga on 11-25-2024 Glucose [Mass/Vol] 84 mg/dL 70-99 [facility] Serum or plasma calcium alfa urement (mass/volume)Ordered By: Gagandeep Arechiga on 11-25-2024 Calcium [Mass/Vol] 9.7 mg/dL 7.6-11.0 [facility] Serum or plasma urea nitroge n measurement (mass/volume)Ordered By: Gagandeep Arechiga on 11-25-2024 Urea nitrogen [Mass/Vol] 18 mg/dL 4-19 [facility] Sodium levelOrdered By: Gagandeep Arechiga on 11-25-2024 Sodium [Moles/Vol] 140 mmol/L 133-145 [facility] Troponin T.cardiac [Mass/vol ume] in Serum or Plasma by High sensitivity methodOrdered By: Gagandeep Arechiga on 11-25-2024 Troponin T.cardiac High sensitivity method [Mass/Vol] 22 ng/L <22 [facility] Troponin T.cardiac High sensitivity method [Mass/Vol] 24 ng/L High <22 [facility] White blood cell (WBC) count Ordered By: Gagandeep Arechiga on 11-25-2024 WBC (Bld) [#/Vol] 9.8 10*3/uL 4.4-11.0 [facility] International normalized rat io (INR) calculationOrdered By: Franky Galloway on 11-24-2024 INR Coag (Bld) [Relative time] 1.7 {INR} [facility] Prothrombin Time w/INRon INR Coag (PPP) [Relative time] 1.7 {INR} Normal [facility] Comment on above: Performed By: #### L 300.3900 ####[facility] [address] [place], [address] PT Coag (PPP) [Time] 20.0 s High 11.7-14.9 [facility] Comment on above: Performed By: #### L 300.3900 ####[facility] [address] [place], [address] Prothrombin timeOrdered By: Franky Galloway on 11-24-2024 PT Coag (PPP) [Time] 20.0 s High 11.7-14.[address] [facility] Prothrombin Time w/INRon INR Coag (PPP) [Relative time] 1.9 {INR} Normal [facility] Comment on above: Order Comment: Comme nts: STANDING ORDER Performed By: #### L 300.3900 ####[facility] [address] [place], [address] PT Coag (PPP) [Time] 22.0 s High 11.7-14.9 [facility] Comment on above: Order Comment: Comme nts: STANDING ORDER Performed By: #### L 300.3900 ####[facility] [address] [place], [address] Prothrombin Time w/INRon INR Coag (PPP) [Relative time] 1.7 {INR} Normal [facility] Comment on above: Performed By: #### L 300.3900 ####[facility] [address] [place], [address] PT Coag (PPP) [Time] 19.8 s High 11.7-14.9 [facility] Comment on above: Performed By: #### L 300.3900 ####[facility] [address] [place], [address] Prothrombin Time w/INRon INR Coag (PPP) [Relative time] 1.8 {INR} Normal [facility] Comment on above: Performed By: #### L 300.3900 ####[facility] [address] [place], [address] PT Coag (PPP) [Time] 21.2 s High 11.7-14.9 [facility] Comment on above: Performed By: #### L 300.3900 ####[facility] [address] [place], [address] Pulmonary Visit Reporton Pulmonary Visit Report Normal [facility] International normalized rat io (INR) calculationOrdered By: Franky Galloway on 10-13-2024 INR Coag (Bld) [Relative time] 1.4 {INR} [facility] Prothrombin Time w/INRon INR Coag (PPP) [Relative time] 1.4 {INR} Normal [facility] Comment on above: Performed By: #### L 300.3900 ####[facility] [address] [place], [address] PT Coag (PPP) [Time] 17.1 s High 11.7-14.9 [facility] Comment on above: Performed By: #### L 300.3900 ####[facility] [address] [place], [place], [phone] Prothrombin timeOrdered By: Franky Galloway on 10-13-2024 PT Coag (PPP) [Time] 17.1 s High 11.7-14.9 [facility] Prothrombin Time w/INRon INR Coag (PPP) [Relative time] 1.4 {INR} Normal [facility] Comment on above: Performed By: #### L 300.3900 ####[facility] [address] [place], [address] PT Coag (PPP) [Time] 17.4 s High 11.7-14.9 [facility] Comment on above: Performed By: #### L 300.3900 ####[facility] [address] [place], [place], [phone] International normalized rat io (INR) calculationOrdered By: Franky Galloway on 09-17-2024 INR Coag (Bld) [Relative time] 1.7 {INR} [facility] Prothrombin Time w/INRon INR Coag (PPP) [Relative time] 1.7 {INR} Normal [facility] Comment on above: Performed By: #### L 300.3900 ####[facility] [address] [place], [address] PT Coag (PPP) [Time] 20.1 s High 11.7-14.9 [facility] Comment on above: Performed By: #### L 300.3900 ####[facility] [address] [place], [place], [phone] Prothrombin timeOrdered By: Franky Galloway on 09-17-2024 PT Coag (PPP) [Time] 20.1 s High 11.7-14.9 [facility] International normalized rat io (INR) calculationOrdered By: Franky Galloway on 08-26-2024 INR Coag (Bld) [Relative time] 2.1 {INR} [facility] Prothrombin Time w/INRon INR Coag (PPP) [Relative time] 2.1 {INR} Normal [facility] Comment on above: Performed By: #### L 300.3900 ####[facility] [address] [place], [address] PT Coag (PPP) [Time] 24.0 s High 11.7-14.9 [facility] Comment on above: Performed By: #### L 300.3900 ####[facility] [address] [place], [address] Prothrombin timeOrdered By: Franky Galloway on 08-26-2024 PT Coag (PPP) [Time] 24.0 s High 11.7-14.9 [facility] Cardiology Visit Reporton Cardiology Visit Report Normal [facility] Prothrombin Time w/INRon INR Coag (PPP) [Relative time] 1.9 {INR} Normal [facility] Comment on above: Performed By: #### L 300.3900 ####[facility] [address] [place], [address] PT Coag (PPP) [Time] 22.0 s High 11.7-14.9 [facility] Comment on above: Performed By: #### L 300.3900 ####[facility] [address] [place], [address] Prothrombin Time w/INRon INR Coag (PPP) [Relative time] 1.4 {INR} Normal [facility] Comment on above: Performed By: #### L 300.3900 ####[facility] [address] [place], [address] PT Coag (PPP) [Time] 17.6 s High 11.7-14.9 [facility] Comment on above: Performed By: #### L 300.3900 ####[facility] [address] [place], [address] MR/VDZFYVFS2mg 07-18-2024 MR/POSTOPAN2 Normal [facility] Bedside Glucoseon 07-17-2024 FINGERSTICK GLU 92 mg/dL Normal 74-106 [facility] Comment on above: Result Comment: KRZYSZTOF LOWE OF PATIENT CARE PER NURSING PROTOCOL Performed By: #### L 501.080 ####[facility] [address] [place], [place], [address] EGD Reporton 07-17-2024 EGD Report Normal [facility] deOrdered By: Pablo Pichardo on 07-17-2024 Bedside Glucose (Misc Panel) 92 mg/dL 74-106 [facility] Comment on above: MANAGEMENT OF PATIEN T CARE PER NURSING PROTOCOL INR Coag (BldC) [Relative ti me]Ordered By: Pablo Pichardo on 07-17-2024 INR Coag (Bld) [Relative time] 1.2 {INR} [facility] Comment on above: Critical Value > 4.0 MR/POSTOP.ANEon 07-17-2024 MR/POSTOP.ANE Normal [facility] P53 (initial)on 07-17-2024 P53 (initial) Normal [facility] Comment on above: Performed By: #### P P53 ####[facility] [address] [place], [address] PT Coag (Bld) [Time]Ordered By: Pablo Pichardo on 07-17-2024 Bedside Prothrombin Time 14.2 SEC 11.7-14.9 [facility] Protime w/INR Fingerstickon 07-17-2024 INR Coag (PPP) [Relative time] 1.2 {INR} Normal [facility] Comment on above: Result Comment: Crit ical Value > 4.0 Performed By: #### L 9200.0000 ####[facility] [address] [place], [address] Protime Coagsen 14.2 SEC Normal 11.7-14.9 [facility] Comment on above: Performed By: #### L 9200.0000 ####[facility] [address] [place], [address] Special Stain Group Ion 12- Special Stain Group I Normal [facility] Comment on above: Performed By: #### P SSI ####[facility] [address] [place], [address] MR/PAT.ANEon 07-16-2024 MR/PAT.ANE Normal [facility] Pulmonary Visit Reporton Pulmonary Visit Report Normal [facility] International normalized rat io (INR) calculationOrdered By: Franky Galloway on 07-09-2024 INR Coag (Bld) [Relative time] 1.9 {INR} [facility] Prothrombin Time w/INRon INR Coag (PPP) [Relative time] 1.9 {INR} Normal [facility] Comment on above: Performed By: #### L 300.3900 ####[facility] [address] [place], [address] PT Coag (PPP) [Time] 21.3 s High 11.7-14.9 [facility] Comment on above: Performed By: #### L 300.3900 ####[facility] [address] [place], [address] Prothrombin timeOrdered By: Franky Galloway on 07-09-2024 PT Coag (PPP) [Time] 21.3 s High 11.7-14.9 [facility] Gastroenterology Visit Repor ton 07-01-2024 Gastroenterology Visit Report Normal [facility] Prothrombin Time w/INRon INR Coag (PPP) [Relative time] 1.5 {INR} Normal [facility] Comment on above: Performed By: #### L 300.3900 ####[facility] [address] [place], [address] PT Coag (PPP) [Time] 17.8 s High 11.7-14.9 [facility] Comment on above: Performed By: #### L 300.6879 ####[facility] [address] [place], [place], [address] 6 Minute Walk Teston 024 6 Minute Walk Test Normal [facility] Office Visit Reporton 2023 Office Visit Report Normal [facility] Gastroenterology Visit Repor ton 05-30-2024 Gastroenterology Visit Report Normal [facility] Magnesiumon 05-30-2024 Magnesium [Mass/Vol] 2.6 mg/dL Normal 1.6-2.6 [facility] Comment on above: Order Comment: Order Date: 05/23/24Order Info: [id number] - MGOrder Info: 2823-3 - VENITA GALLOWAY ORDERED PT Performed By: #### L 501.5200, L501.5600 ####[facility] [address] [place], [address] Office Visit Reporton 2023 Office Visit Report Normal [facility] Potassiumon 05-30-2024 Potassium [Moles/Vol] 3.6 mmol/L Normal 3.5-5.1 [facility] Comment on above: Order Comment: Order Date: 05/23/24Order Info: [id number] - MGOrder Info: [id number] - VENITA GALLOWAY ORDERED PT Performed By: #### L 501.5200, L501.5600 ####[facility] [address] [place], [address] Prothrombin Time w/INRon INR Coag (PPP) [Relative time] 3.7 {INR} Normal [facility] Comment on above: Order Comment: FRANKY GALLOWAY ORDERED PT Performed By: #### L 300.3900 ####[facility] [address] [place], [address] PT Coag (PPP) [Time] 36.3 s High 11.7-14.9 [facility] Comment on above: Order Comment: FRANKY GALLOWAY ORDERED PT Performed By: #### L 300.3900 ####[facility] [address] [place], [address] CBC W/Diff, Automatedon 04-30 PATH REV Reviewed Normal [facility] Comment on above: Result Comment: Neut rophilic leukocytosis.Normocytic anemia.Clinical correlation suggested.Dallin Nova D.O. 05/22/24 AMENDED REPORT 05/22/24 0947 PATH REV previously reported as: November Performed By: #### L 100.0100, L503.6620, L500.2500, L501.5200, L501.5425 ####[facility] [address] [place], [address] ANCAon 05-21-2024 Atypical pANCA <1:20 Normal Neg:<1:20 [facility] Comment on above: Order Comment: Speci men Comment: A duplicate report has been generateddue to demographicSpecimen Comment: updates. Result Comment: The atypical pANCA pattern has been observed in asignificant percentage of patients with ulcerative colitis,primary sclerosing cholangitis and autoimmune hepatitis. Performed By: #### L 3100.5450, L3500.3600, L3300.1200 ####[facility] [address] [place], [address] Cytoplasmic Ab <1:20 Normal Neg:<1:20 [facility] Comment on above: Order Comment: Speci men Comment: A duplicate report has been generateddue to demographicSpecimen Comment: updates. Performed By: #### L 3100.5450, L3500.3600, L3300.1200 ####[facility] [address] [place], [address] Perinuclear Ab. <1:20 Normal Neg:<1:20 [facility] Comment on above: Order Comment: Speci men [...] up testing of positive sera with both AL-3 and MPO-ANCA enzyme immunoassays. As many as 5% serumsamples are positive only by EIA. Ref. AM J Clin Kfvkdk9535;111:[id number]. Performed By: #### L 3100.5450, L3500.3600, L3300.1200 ####[facility] [address] [facility] [address] Aspergillus Antibodieson Asp. flavus Negative Normal Neg:<1:1 [facility] Comment on above: Order Comment: Speci men Comment: A duplicate report has been generateddue to demographicSpecimen Comment: updates. Performed By: #### L 3100.5450, L3500.3600, L3300.1200 ####[facility] [address] [place], [address] Asp. fumigatus Negative Normal Neg:<1:1 [facility] Comment on above: Order Comment: Speci men Comment: A duplicate report has been generateddue to demographicSpecimen Comment: updates. Performed By: #### L 3100.5450, L3500.3600, L3300.1200 ####[facility] [address] [place], [address] Asp. niger Negative Normal Neg:<1:1 [facility] Comment on above: Order Comment: Speci men Comment: A duplicate report has been generateddue to demographicSpecimen Comment: updates. Result Comment: Perf ormed at: - [facility] [address] [place], [place] [id number] Director: Ian Phillip PhD, Phone: [phone] at: - [facility] [id number] Director: Rima Mejia MD, Phone: [phone] Performed By: #### L 3100.5450, L3500.3600, L3300.1200 ####[facility] [address] [place], [address] BNP,B-Type NATRIURETIC PEPTI Cayetano 05-21-2024 Natriuretic peptide B (Bld) [Mass/Vol] 44.1 pg/mL Normal 0-100 [facility] Comment on above: Performed By: #### L 100.0100, L503.6620, L500.2500, L501.5200, L501.5425 ####[facility] [address] [place], [address] Basic Metabolic Profile (BMP )on 05-21-2024 BUN/CRE 20.0 RATIO Normal -20 [facility] Comment on above: Order Comment: 1Y Performed By: #### L 100.0100, L503.6620, L500.2500, L501.5200, L501.5425 ####[facility] [address] [place], [address] CA,Total 8.2 mg/dL Low 8.5-10.1 [facility] Comment on above: Order Comment: 1Y Performed By: #### L 100.0100, L503.6620, L500.2500, L501.5200, L501.5425 ####[facility] [address] [place], [address] Chloride [Moles/Vol] 100 mmol/L Normal 98-107 [facility] Comment on above: Order Comment: 1Y Performed By: #### L 100.0100, L503.6620, L500.2500, L501.5200, L501.5425 ####[facility] [address] [place], [address] CO2 [Moles/Vol] 26.0 mmol/L Normal 21.0-32.0 [facility] Comment on above: Order Comment: 1Y Performed By: #### L 100.0100, L503.6620, L500.2500, L501.5200, L501.5425 ####[facility] [address] [place], [address] Creatinine [Mass/Vol] 1.05 mg/dL Normal 0.70-1.30 [facility] Comment on above: Order Comment: 1Y Result Comment: The validity of the calculated GFR GFRAA in patients over70 years has not been determined. Clinical correlation isessential. Performed By: #### L 100.0100, L503.6620, L500.2500, L501.5200, L501.5425 ####[facility] [address] [place], [address] ECRCL 66.61 ml/min Normal [facility] Comment on above: Order Comment: 1Y Performed By: #### L 100.0100, L503.6620, L500.2500, L501.5200, L501.5425 ####[facility] [address] [place], [address] EST GFR - AA 90 mL/min Normal >60 [facility] Comment on above: Order Comment: 1Y Result Comment: Afri can Egyptian GFR Calc Performed By: #### L 100.0100, L503.6620, L500.2500, L501.5200, L501.5425 ####[facility] [address] [place], [address] GAP 8 Normal 5-15 [facility] Comment on above: Order Comment: 1Y Performed By: #### L 100.0100, L503.6620, L500.2500, L501.5200, L501.5425 ####[facility] [address] [place], [address] GFR/1.73 sq M.predicted among non-blacks MDRD (S/P/Bld) [Vol rate/Area] 75 mL/min/{1.73_m2} Normal >60 [facility] Comment on above: Order Comment: 1Y Result Comment: Non- GFR Calc Performed By: #### L 100.0100, L503.6620, L500.2500, L501.5200, L501.5425 ####[facility] [address] [place], [address] Glucose [Mass/Vol] 129 mg/dL High 74-106 [facility] Comment on above: Order Comment: 1Y Result Comment: Fast ing Glucose result greater than or equal to 126 mg/dLsuggests DIABETES MELLITUS per A.D.A. criteria. Performed By: #### L 100.0100, L503.6620, L500.2500, L501.5200, L501.5425 ####[facility] [address] [place], [address] Potassium [Moles/Vol] 3.0 mmol/L Low 3.5-5.1 [facility] Comment on above: Order Comment: 1Y Performed By: #### L 100.0100, L503.6620, L500.2500, L501.5200, L501.5425 ####[facility] [address] [place], [address] Sodium [Moles/Vol] 134 mmol/L Low 136-145 [facility] Comment on above: Order Comment: 1Y Performed By: #### L 100.0100, L503.6620, L500.2500, L501.5200, L501.5425 ####[facility] [address] [place], [address] Urea nitrogen [Mass/Vol] 21 mg/dL High 7-18 [facility] Comment on above: Order Comment: 1Y Performed By: #### L 100.0100, L503.6620, L500.2500, L501.5200, L501.5425 ####[facility] [address] [place], [address] Chest 1 View (Portable)on Chest 1 View (Portable) Normal [facility] Emergency Department Summary on 05-21-2024 Emergency Department Summary Normal [facility] L501.4020on 05-21-2024 TROPONIN-I HS 6 pg/mL Normal 3.0-78.0 [facility] Comment on above: Result Comment: Plea se Note: New Test Units and Gender Specific Reference Ranges. For more information see Policy Stat Procedure Wrens High Sensitivity Troponin (TNIH) and attachments. Performed By: #### L 501.4020 ####[facility] [address] [place], [address] L501.5425on 05-21-2024 TROPONIN-I HS 5 pg/mL Normal 3.0-78.0 [facility] Comment on above: Order Comment: 1Y Result Comment: Plea se Note: New Test Units and Gender Specific Reference Ranges. For more information see Policy Stat Procedure Wrens High Sensitivity Troponin (TNIH) and attachments. Performed By: #### L 100.0100, L503.6620, L500.2500, L501.5200, L501.5425 ####[facility] [address] [place], [address] M100.678on 05-21-2024 M100.678 Pending SARS-CoV-2 (COVID 19) Negative INFLUENZA A Negative INFLUENZA B Negative RSV PCR Negative Normal [facility] Comment on above: Performed By: #### M 100.678 ####[facility] [address] [place], [address] Magnesiumon 05-21-2024 Magnesium [Mass/Vol] 2.3 mg/dL Normal 1.6-2.6 [facility] Comment on above: Order Comment: 1Y Performed By: #### L 100.0100, L503.6620, L500.2500, L501.5200, L501.5425 ####[facility] [address] [place], [address] Prothrombin Time w/INRon INR Coag (PPP) [Relative time] 2.2 {INR} Normal [facility] Comment on above: Performed By: #### L 300.3900 ####[facility] [address] [place], [address] PT Coag (PPP) [Time] 24.5 s High 11.7-14.9 [facility] Comment on above: Performed By: #### L 300.3900 ####[facility] [address] [place], [address] Urinalysis, Completeon 05-21 BACTERIA 0 SEEN Normal None Seen [facility] Comment on above: Order Comment: CLEAN CATCH Performed By: #### L 400.0001 ####[facility] [address] [place], [address] EPI,SQUAMOUS 0 SEEN Normal 0-5 [facility] Comment on above: Order Comment: CLEAN CATCH Performed By: #### L 400.0001 ####[facility] [address] [place], [address] Mucus Ql (Urine sed) 0 SEEN Normal [facility] Comment on above: Order Comment: CLEAN CATCH Performed By: #### L 400.0001 ####[facility] [address] [place], [address] RBC 0 SEEN Normal 0-5 [facility] Comment on above: Order Comment: CLEAN CATCH Performed By: #### L 400.0001 ####[facility] [address] [place], [address] WBC 0 SEEN Normal 0-5 [facility] Comment on above: Order Comment: CLEAN CATCH Performed By: #### L 400.0001 ####[facility] [address] [place], [address] Basic Metabolic Profile (BMP )on 05-20-2024 BUN Normal -18 [facility] Comment on above: Result Comment: Canc elled via OM: Order cancelled - Patient discharged Performed By: #### L 500.2500, L100.0100 ####[facility] [address] [place], [address] BUN/CRE Normal - [facility] Comment on above: Result Comment: Canc elled via OM: Order cancelled - Patient discharged Performed By: #### L 500.2500, L100.0100 ####[facility] [address] [place], [address] CA,Total Normal 8.5-10.1 [facility] Comment on above: Result Comment: Canc elled via OM: Order cancelled - Patient discharged Performed By: #### L 500.2500, L100.0100 ####[facility] [address] [place], [address] CL Normal 98-107 [facility] Comment on above: Result Comment: Canc elled via OM: Order cancelled - Patient discharged Performed By: #### L 500.2500, L100.0100 ####[facility] [address] [place], [address] CO2 Normal 21.0-32.0 [facility] Comment on above: Result Comment: Canc elled via OM: Order cancelled - Patient discharged Performed By: #### L 500.2500, L100.0100 ####[facility] [address] [place], [address] CREAT,SERUM Normal 0.70-1.30 [facility] Comment on above: Result Comment: Canc elled via OM: Order cancelled - Patient discharged Performed By: #### L 500.2500, L100.0100 ####[facility] [address] [place], [address] EST GFR Normal >60 [facility] Comment on above: Result Comment: Canc elled via OM: Order cancelled - Patient discharged Performed By: #### L 500.2500, L100.0100 ####[facility] [address] [place], [address] EST GFR - AA Normal >60 [facility] Comment on above: Result Comment: Canc elled via OM: Order cancelled - Patient discharged Performed By: #### L 500.2500, L100.0100 ####[facility] [address] [place], [address] GAP Normal 5-15 [facility] Comment on above: Result Comment: Canc elled via OM: Order cancelled - Patient discharged Performed By: #### L 500.2500, L100.0100 ####[facility] [address] [place], [address] GLU Normal 74-106 [facility] Comment on above: Result Comment: Canc elled via OM: Order cancelled - Patient discharged Performed By: #### L 500.2500, L100.0100 ####[facility] [address] [place], [address] Potassium Normal 3.5-5.1 [facility] Comment on above: Result Comment: Canc elled via OM: Order cancelled - Patient discharged Performed By: #### L 500.2500, L100.0100 ####[facility] [address] [place], [address] Basic Metabolic Profile (BMP) Normal 136-145 [facility] Comment on above: Result Comment: Canc elled via OM: Order cancelled - Patient discharged Performed By: #### L 500.2500, L100.0100 ####[facility] [address] [place], [address] CBC W/Diff, Automatedon 10-2 Absolute Neut Normal 2.0-7.7 [facility] Comment on above: Result Comment: Canc elled via OM: Order cancelled - Patient discharged Performed By: #### L 500.2500, L100.0100 ####[facility] [address] [place], [address] HCT Normal 40-54 [facility] Comment on above: Result Comment: Canc elled via OM: Order cancelled - Patient discharged Performed By: #### L 500.2500, L100.0100 ####[facility] [address] [place], [address] HGB Normal 13.0-16.5 [facility] Comment on above: Result Comment: Canc elled via OM: Order cancelled - Patient discharged Performed By: #### L 500.2500, L100.0100 ####[facility] [address] [place], [address] MCH Normal 27.0-32.0 [facility] Comment on above: Result Comment: Canc elled via OM: Order cancelled - Patient discharged Performed By: #### L 500.2500, L100.0100 ####[facility] [address] [place], [address] MCHC Normal 32-36 [facility] Comment on above: Result Comment: Canc elled via OM: Order cancelled - Patient discharged Performed By: #### L 500.2500, L100.0100 ####[facility] [address] [place], [address] MCV Normal 80-94 [facility] Comment on above: Result Comment: Canc elled via OM: Order cancelled - Patient discharged Performed By: #### L 500.2500, L100.0100 ####[facility] [address] [place], [address] NEUT% Normal 47-70 [facility] Comment on above: Result Comment: Canc elled via OM: Order cancelled - Patient discharged Performed By: #### L 500.2500, L100.0100 ####[facility] [address] [place], [address] PLT Normal 150-450 [facility] Comment on above: Result Comment: Canc elled via OM: Order cancelled - Patient discharged Performed By: #### L 500.2500, L100.0100 ####[facility] [address] [place], [address] RBC Normal 4.6-6.2 [facility] Comment on above: Result Comment: Canc elled via OM: Order cancelled - Patient discharged Performed By: #### L 500.2500, L100.0100 ####[facility] [address] [place], [address] RDW CV Normal 11.6-14.6 [facility] Comment on above: Result Comment: Canc elled via OM: Order cancelled - Patient discharged Performed By: #### L 500.2500, L100.0100 ####[facility] [address] [place], [address] RDW SD Normal 35.1-43.9 [facility] Comment on above: Result Comment: Canc elled via OM: Order cancelled - Patient discharged Performed By: #### L 500.2500, L100.0100 ####[facility] [address] [place], [address] WBC Normal 4.4-11.0 [facility] Comment on above: Result Comment: Canc elled via OM: Order cancelled - Patient discharged Performed By: #### L 500.2500, L100.0100 ####[facility] [address] [place], [address] Basic Metabolic Profile (BMP )on 05-19-2024 BUN Normal -18 [facility] Comment on above: Result Comment: Canc elled via OM: Order cancelled - Patient discharged Performed By: #### L 500.2500, L100.0100 ####[facility] [address] [place], [address] BUN/CRE Normal - [facility] Comment on above: Result Comment: Canc elled via OM: Order cancelled - Patient discharged Performed By: #### L 500.2500, L100.0100 ####[facility] [address] [place], [address] CA,Total Normal 8.5-10.1 [facility] Comment on above: Result Comment: Canc elled via OM: Order cancelled - Patient discharged Performed By: #### L 500.2500, L100.0100 ####[facility] [address] [place], [address] CL Normal 98-107 [facility] Comment on above: Result Comment: Canc elled via OM: Order cancelled - Patient discharged Performed By: #### L 500.2500, L100.0100 ####[facility] [address] [place], [address] CO2 Normal 21.0-32.0 [facility] Comment on above: Result Comment: Canc elled via OM: Order cancelled - Patient discharged Performed By: #### L 500.2500, L100.0100 ####[facility] [address] [place], [address] CREAT,SERUM Normal 0.70-1.30 [facility] Comment on above: Result Comment: Canc elled via OM: Order cancelled - Patient discharged Performed By: #### L 500.2500, L100.0100 ####[facility] [address] [place], [address] EST GFR Normal >60 [facility] Comment on above: Result Comment: Canc elled via OM: Order cancelled - Patient discharged Performed By: #### L 500.2500, L100.0100 ####[facility] [address] [place], [address] EST GFR - AA Normal >60 [facility] Comment on above: Result Comment: Canc elled via OM: Order cancelled - Patient discharged Performed By: #### L 500.2500, L100.0100 ####[facility] [address] [place], [address] GAP Normal 5-15 [facility] Comment on above: Result Comment: Canc elled via OM: Order cancelled - Patient discharged Performed By: #### L 500.2500, L100.0100 ####[facility] [address] [place], [address] GLU Normal 74-106 [facility] Comment on above: Result Comment: Canc elled via OM: Order cancelled - Patient discharged Performed By: #### L 500.2500, L100.0100 ####[facility] [address] [place], [address] Potassium Normal 3.5-5.1 [facility] Comment on above: Result Comment: Canc elled via OM: Order cancelled - Patient discharged Performed By: #### L 500.2500, L100.0100 ####[facility] [address] [place], [address] Basic Metabolic Profile (BMP) Normal 136-145 [facility] Comment on above: Result Comment: Canc elled via OM: Order cancelled - Patient discharged Performed By: #### L 500.2500, L100.0100 ####[facility] [address] [place], [address] CBC W/Diff, Automatedon 10-2 Absolute Neut Normal 2.0-7.7 [facility] Comment on above: Result Comment: Canc elled via OM: Order cancelled - Patient discharged Performed By: #### L 500.2500, L100.0100 ####[facility] [address] [place], [address] HCT Normal 40-54 [facility] Comment on above: Result Comment: Canc elled via OM: Order cancelled - Patient discharged Performed By: #### L 500.2500, L100.0100 ####[facility] [address] [place], [address] HGB Normal 13.0-16.5 [facility] Comment on above: Result Comment: Canc elled via OM: Order cancelled - Patient discharged Performed By: #### L 500.2500, L100.0100 ####[facility] [address] [place], [address] MCH Normal 27.0-32.0 [facility] Comment on above: Result Comment: Canc elled via OM: Order cancelled - Patient discharged Performed By: #### L 500.2500, L100.0100 ####[facility] [address] [place], [address] MCHC Normal 32-36 [facility] Comment on above: Result Comment: Canc elled via OM: Order cancelled - Patient discharged Performed By: #### L 500.2500, L100.0100 ####[facility] [address] [place], [address] MCV Normal 80-94 [facility] Comment on above: Result Comment: Canc elled via OM: Order cancelled - Patient discharged Performed By: #### L 500.2500, L100.0100 ####[facility] [address] [place], [address] NEUT% Normal 47-70 [facility] Comment on above: Result Comment: Canc elled via OM: Order cancelled - Patient discharged Performed By: #### L 500.2500, L100.0100 ####[facility] [address] [place], [address] PLT Normal 150-450 [facility] Comment on above: Result Comment: Canc elled via OM: Order cancelled - Patient discharged Performed By: #### L 500.2500, L100.0100 ####[facility] [address] [place], [address] RBC Normal 4.6-6.2 [facility] Comment on above: Result Comment: Canc elled via OM: Order cancelled - Patient discharged Performed By: #### L 500.2500, L100.0100 ####[facility] [address] [place], [address] RDW CV Normal 11.6-14.6 [facility] Comment on above: Result Comment: Canc elled via OM: Order cancelled - Patient discharged Performed By: #### L 500.2500, L100.0100 ####[facility] [address] [place], [address] RDW SD Normal 35.1-43.9 [facility] Comment on above: Result Comment: Canc elled via OM: Order cancelled - Patient discharged Performed By: #### L 500.2500, L100.0100 ####[facility] [address] [place], [address] WBC Normal 4.4-11.0 [facility] Comment on above: Result Comment: Canc elled via OM: Order cancelled - Patient discharged Performed By: #### L 500.2500, L100.0100 ####[facility] [address] [place], [address] SIMONE w/ Reflex Mult Confirmon 05-18-2024 SIMONE,DIRECT Normal [facility] Comment on above: Result Comment: TEST RESULTS LIMITSANA Direct Negative Negative ___ TESTING PERFORMED AT [facility]. ORIGINAL REPORT ON FILE IN LAB CONTAINS ADDITIONAL TEST SITE INFORMATION. Performed By: #### L 3100.5450, L3500.3600, L3300.1200 ####[facility] [address] [place], [address] Basic Metabolic Profile (BMP )on 05-18-2024 BUN Normal 7-18 [facility] Comment on above: Result Comment: Canc elled via OM: Order cancelled - Patient discharged Performed By: #### L 100.0100, L500.2500 ####[facility] [address] [place], [address] BUN/CRE Normal 05-18 [facility] Comment on above: Result Comment: Canc elled via OM: Order cancelled - Patient discharged Performed By: #### L 100.0100, L500.2500 ####[facility] [address] [place], [address] CA,Total Normal 8.5-10.1 [facility] Comment on above: Result Comment: Canc elled via OM: Order cancelled - Patient discharged Performed By: #### L 100.0100, L500.2500 ####[facility] [address] [place], [address] CL Normal 98-107 [facility] Comment on above: Result Comment: Canc elled via OM: Order cancelled - Patient discharged Performed By: #### L 100.0100, L500.2500 ####[facility] [address] [place], [address] CO2 Normal 21.0-32.0 [facility] Comment on above: Result Comment: Canc elled via OM: Order cancelled - Patient discharged Performed By: #### L 100.0100, L500.2500 ####[facility] [address] [place], [address] CREAT,SERUM Normal 0.70-1.30 [facility] Comment on above: Result Comment: Canc elled via OM: Order cancelled - Patient discharged Performed By: #### L 100.0100, L500.2500 ####[facility] [address] [place], [address] EST GFR Normal >60 [facility] Comment on above: Result Comment: Canc elled via OM: Order cancelled - Patient discharged Performed By: #### L 100.0100, L500.2500 ####[facility] [address] [place], [address] EST GFR - AA Normal >60 [facility] Comment on above: Result Comment: Canc elled via OM: Order cancelled - Patient discharged Performed By: #### L 100.0100, L500.2500 ####[facility] [address] [place], [address] GAP Normal 5-15 [facility] Comment on above: Result Comment: Canc elled via OM: Order cancelled - Patient discharged Performed By: #### L 100.0100, L500.2500 ####[facility] [address] [place], [address] GLU Normal 74-106 [facility] Comment on above: Result Comment: Canc elled via OM: Order cancelled - Patient discharged Performed By: #### L 100.0100, L500.2500 ####[facility] [address] [place], [address] Potassium Normal 3.5-5.1 [facility] Comment on above: Result Comment: Canc elled via OM: Order cancelled - Patient discharged Performed By: #### L 100.0100, L500.2500 ####[facility] [address] [place], [address] Basic Metabolic Profile (BMP) Normal 136-145 [facility] Comment on above: Result Comment: Canc elled via OM: Order cancelled - Patient discharged Performed By: #### L 100.0100, L500.2500 ####[facility] [address] [place], [address] CBC W/Diff, Automatedon 10-2 0-2023 Absolute Neut Normal 2.0-7.7 [facility] Comment on above: Result Comment: Canc elled via OM: Order cancelled - Patient discharged Performed By: #### L 100.0100, L500.2500 ####[facility] [address] [place], [address] HCT Normal 40-54 [facility] Comment on above: Result Comment: Canc elled via OM: Order cancelled - Patient discharged Performed By: #### L 100.0100, L500.2500 ####[facility] [address] [place], [address] HGB Normal 13.0-16.5 [facility] Comment on above: Result Comment: Canc elled via OM: Order cancelled - Patient discharged Performed By: #### L 100.0100, L500.2500 ####[facility] [address] [place], [address] MCH Normal 27.0-32.0 [facility] Comment on above: Result Comment: Canc elled via OM: Order cancelled - Patient discharged Performed By: #### L 100.0100, L500.2500 ####[facility] [address] [place], [address] MCHC Normal 32-36 [facility] Comment on above: Result Comment: Canc elled via OM: Order cancelled - Patient discharged Performed By: #### L 100.0100, L500.2500 ####[facility] [address] [place], [address] MCV Normal 80-94 [facility] Comment on above: Result Comment: Canc elled via OM: Order cancelled - Patient discharged Performed By: #### L 100.0100, L500.2500 ####[facility] [address] [place], [address] NEUT% Normal 47-70 [facility] Comment on above: Result Comment: Canc elled via OM: Order cancelled - Patient discharged Performed By: #### L 100.0100, L500.2500 ####[facility] [address] [place], [address] PLT Normal 150-450 [facility] Comment on above: Result Comment: Canc elled via OM: Order cancelled - Patient discharged Performed By: #### L 100.0100, L500.2500 ####[facility] [address] [place], [address] RBC Normal 4.6-6.2 [facility] Comment on above: Result Comment: Canc elled via OM: Order cancelled - Patient discharged Performed By: #### L 100.0100, L500.2500 ####[facility] [address] [place], [address] RDW CV Normal 11.6-14.6 [facility] Comment on above: Result Comment: Canc elled via OM: Order cancelled - Patient discharged Performed By: #### L 100.0100, L500.2500 ####[facility] [address] [place], [address] RDW SD Normal 35.1-43.9 [facility] Comment on above: Result Comment: Canc elled via OM: Order cancelled - Patient discharged Performed By: #### L 100.0100, L500.2500 ####[facility] [address] [place], [address] WBC Normal 4.4-11.0 [facility] Comment on above: Result Comment: Canc elled via OM: Order cancelled - Patient discharged Performed By: #### L 100.0100, L500.2500 ####[facility] [address] [place], [address] L5000.0010on 05-18-2024 BNP Normal [facility] Comment on above: Result Comment: TEST RESULTS LIMITSB-Type Natriuretic Peptide 219.3 High pg/mL 0.0-100.0 Siemens ADVIA Centaur XP methodology TESTING PERFORMED AT [facility]. ORIGINAL REPORT ON FILE IN LAB CONTAINS ADDITIONAL TEST SITE INFORMATION. Performed By: #### L 5000.0010 ####[facility] [address] [place], [address] Basic Metabolic Profile (BMP )on 05-17-2024 BUN Normal 7-18 [facility] Comment on above: Result Comment: Canc elled via OM: Order cancelled - Patient discharged Performed By: #### L 100.0100, L500.2500 ####[facility] [address] [place], [address] BUN/CRE Normal 10-20 [facility] Comment on above: Result Comment: Canc elled via OM: Order cancelled - Patient discharged Performed By: #### L 100.0100, L500.2500 ####[facility] [address] [place], [address] CA,Total Normal 8.5-10.1 [facility] Comment on above: Result Comment: Canc elled via OM: Order cancelled - Patient discharged Performed By: #### L 100.0100, L500.2500 ####[facility] [address] [place], [address] CL Normal 98-107 [facility] Comment on above: Result Comment: Canc elled via OM: Order cancelled - Patient discharged Performed By: #### L 100.0100, L500.2500 ####[facility] [address] [place], [address] CO2 Normal 21.0-32.0 [facility] Comment on above: Result Comment: Canc elled via OM: Order cancelled - Patient discharged Performed By: #### L 100.0100, L500.2500 ####[facility] [address] [place], [address] CREAT,SERUM Normal 0.70-1.30 [facility] Comment on above: Result Comment: Canc elled via OM: Order cancelled - Patient discharged Performed By: #### L 100.0100, L500.2500 ####[facility] [address] [place], [address] EST GFR Normal >60 [facility] Comment on above: Result Comment: Canc elled via OM: Order cancelled - Patient discharged Performed By: #### L 100.0100, L500.2500 ####[facility] [address] [place], [address] EST GFR - AA Normal >60 [facility] Comment on above: Result Comment: Canc elled via OM: Order cancelled - Patient discharged Performed By: #### L 100.0100, L500.2500 ####[facility] [address] [place], [address] GAP Normal 5-15 [facility] Comment on above: Result Comment: Canc elled via OM: Order cancelled - Patient discharged Performed By: #### L 100.0100, L500.2500 ####[facility] [address] [place], [address] GLU Normal 74-106 [facility] Comment on above: Result Comment: Canc elled via OM: Order cancelled - Patient discharged Performed By: #### L 100.0100, L500.2500 ####[facility] [address] [place], [address] Potassium Normal 3.5-5.1 [facility] Comment on above: Result Comment: Canc elled via OM: Order cancelled - Patient discharged Performed By: #### L 100.0100, L500.2500 ####[facility] [address] [place], [address] Basic Metabolic Profile (BMP) Normal 136-145 [facility] Comment on above: Result Comment: Canc elled via OM: Order cancelled - Patient discharged Performed By: #### L 100.0100, L500.2500 ####[facility] [address] [place], [address] CBC W/Diff, Automatedon 10-1 Absolute Neut Normal 2.0-7.7 [facility] Comment on above: Result Comment: Canc elled via OM: Order cancelled - Patient discharged Performed By: #### L 100.0100, L500.2500 ####[facility] [address] [place], [address] HCT Normal 40-54 [facility] Comment on above: Result Comment: Canc elled via OM: Order cancelled - Patient discharged Performed By: #### L 100.0100, L500.2500 ####[facility] [address] [place], [address] HGB Normal 13.0-16.5 [facility] Comment on above: Result Comment: Canc elled via OM: Order cancelled - Patient discharged Performed By: #### L 100.0100, L500.2500 ####[facility] [address] [place], [address] MCH Normal 27.0-32.0 [facility] Comment on above: Result Comment: Canc elled via OM: Order cancelled - Patient discharged Performed By: #### L 100.0100, L500.2500 ####[facility] [address] [place], [address] MCHC Normal 32-36 [facility] Comment on above: Result Comment: Canc elled via OM: Order cancelled - Patient discharged Performed By: #### L 100.0100, L500.2500 ####[facility] [address] [place], [address] MCV Normal 80-94 [facility] Comment on above: Result Comment: Canc elled via OM: Order cancelled - Patient discharged Performed By: #### L 100.0100, L500.2500 ####[facility] [address] [place], [address] NEUT% Normal 47-70 [facility] Comment on above: Result Comment: Canc elled via OM: Order cancelled - Patient discharged Performed By: #### L 100.0100, L500.2500 ####[facility] [address] [place], [address] PLT Normal 150-450 [facility] Comment on above: Result Comment: Canc elled via OM: Order cancelled - Patient discharged Performed By: #### L 100.0100, L500.2500 ####[facility] [address] [place], [address] RBC Normal 4.6-6.2 [facility] Comment on above: Result Comment: Canc elled via OM: Order cancelled - Patient discharged Performed By: #### L 100.0100, L500.2500 ####[facility] [address] [place], [address] RDW CV Normal 11.6-14.6 [facility] Comment on above: Result Comment: Canc elled via OM: Order cancelled - Patient discharged Performed By: #### L 100.0100, L500.2500 ####[facility] [address] [place], [address] RDW SD Normal 35.1-43.9 [facility] Comment on above: Result Comment: Canc elled via OM: Order cancelled - Patient discharged Performed By: #### L 100.0100, L500.2500 ####[facility] [address] [place], [address] WBC Normal 4.4-11.0 [facility] Comment on above: Result Comment: Canc elled via OM: Order cancelled - Patient discharged Performed By: #### L 100.0100, L500.2500 ####[facility] [address] [place], [address] Basic Metabolic Profile (BMP )on 05-16-2024 BUN/CRE 14.5 RATIO Normal 10-20 [facility] Comment on above: Performed By: #### L 500.2500, L100.0100 ####[facility] [address] [place], [address] CA,Total 8.4 mg/dL Low 8.5-10.1 [facility] Comment on above: Performed By: #### L 500.2500, L100.0100 ####[facility] [address] [place], [address] Chloride [Moles/Vol] 104 mmol/L Normal 98-107 [facility] Comment on above: Performed By: #### L 500.2500, L100.0100 ####[facility] [address] [place], [address] CO2 [Moles/Vol] 29.0 mmol/L Normal 21.0-32.0 [facility] Comment on above: Performed By: #### L 500.2500, L100.0100 ####[facility] [address] [place], [address] Creatinine [Mass/Vol] 0.76 mg/dL Normal 0.70-1.30 [facility] Comment on above: Result Comment: The validity of the calculated GFR GFRAA in patients over70 years has not been determined. Clinical correlation isessential. Performed By: #### L 500.2500, L100.0100 ####[facility] [address] [place], [address] ECRCL 83.92 ml/min Normal [facility] Comment on above: Performed By: #### L 500.2500, L100.0100 ####[facility] [address] [place], [address] EST GFR - AA 131 mL/min Normal >60 [facility] Comment on above: Result Comment: Afri can Egyptian GFR Calc Performed By: #### L 500.2500, L100.0100 ####[facility] [address] [place], [address] GAP 5 Normal 5-15 [facility] Comment on above: Performed By: #### L 500.2500, L100.0100 ####[facility] [address] [place], [address] GFR/1.73 sq M.predicted among non-blacks MDRD (S/P/Bld) [Vol rate/Area] 108 mL/min/{1.73_m2} Normal >60 [facility] Comment on above: Result Comment: Non- GFR Calc Performed By: #### L 500.2500, L100.0100 ####[facility] [address] [place], [address] Glucose [Mass/Vol] 103 mg/dL Normal 74-106 [facility] Comment on above: Result Comment: Fast ing Glucose result from 100 to 125 mg/dLsuggests IMPAIRED HOMEOSTASIS per A.D.A. criteria. Performed By: #### L 500.2500, L100.0100 ####[facility] [address] [place], [address] Potassium [Moles/Vol] 3.4 mmol/L Low 3.5-5.1 [facility] Comment on above: Performed By: #### L 500.2500, L100.0100 ####[facility] [address] [place], [address] Sodium [Moles/Vol] 138 mmol/L Normal 136-145 [facility] Comment on above: Performed By: #### L 500.2500, L100.0100 ####[facility] [address] [place], [address] Urea nitrogen [Mass/Vol] 11 mg/dL Normal 7-18 [facility] Comment on above: Performed By: #### L 500.2500, L100.0100 ####[facility] [address] [place], [address] CBC W/Diff, Automatedon 04-29 PATH REV Reviewed Normal [facility] Comment on above: Result Comment: Neut rophilic left shift.Normocytic anemia.Clinical correlation necessary.Lance Barajas M.D. 05/16/24 AMENDED REPORT 05/16/24 1436 PATH REV previously reported as: Gladis redd Performed By: #### L 500.2500, L100.0100 ####[facility] [address] [place], [address] Discharge Instructionon 04-29 Discharge Instruction Normal [facility] Prothrombin Time w/INRon INR Coag (PPP) [Relative time] 2.9 {INR} Normal [facility] Comment on above: Performed By: #### L 300.3900 ####[facility] [address] [place], [address] PT Coag (PPP) [Time] 29.8 s High 11.7-14.9 [facility] Comment on above: Performed By: #### L 300.3900 ####[facility] [address] [place], [address] 12 Lead EKGon 05-15-2024 12 Lead EKG Normal [facility] Basic Metabolic Profile (BMP )on 05-15-2024 BUN/CRE 12.7 RATIO Normal 05-18 [facility] Comment on above: Performed By: #### L 100.0100, L500.2500 ####[facility] [address] [place], [address] CA,Total 8.8 mg/dL Normal 8.5-10.1 [facility] Comment on above: Performed By: #### L 100.0100, L500.2500 ####[facility] [address] [place], [address] Chloride [Moles/Vol] 106 mmol/L Normal 98-107 [facility] Comment on above: Performed By: #### L 100.0100, L500.2500 ####[facility] [address] [place], [address] CO2 [Moles/Vol] 25.0 mmol/L Normal 21.0-32.0 [facility] Comment on above: Performed By: #### L 100.0100, L500.2500 ####[facility] [address] [place], [address] Creatinine [Mass/Vol] 0.71 mg/dL Normal 0.70-1.30 [facility] Comment on above: Result Comment: The validity of the calculated GFR GFRAA in patients over70 years has not been determined. Clinical correlation isessential. Performed By: #### L 100.0100, L500.2500 ####[facility] [address] [place], [address] ECRCL 88.38 ml/min Normal [facility] Comment on above: Performed By: #### L 100.0100, L500.2500 ####[facility] [address] [place], [address] EST GFR - AA 142 mL/min Normal >60 [facility] Comment on above: Result Comment: Afri can Egyptian GFR Calc Performed By: #### L 100.0100, L500.2500 ####[facility] [address] [place], [address] GAP 6 Normal 5-15 [facility] Comment on above: Performed By: #### L 100.0100, L500.2500 ####[facility] [address] [place], [address] GFR/1.73 sq M.predicted among non-blacks MDRD (S/P/Bld) [Vol rate/Area] 117 mL/min/{1.73_m2} Normal >60 [facility] Comment on above: Result Comment: Non- GFR Calc Performed By: #### L 100.0100, L500.2500 ####[facility] [address] [place], [address] Glucose [Mass/Vol] 99 mg/dL Normal 74-106 [facility] Comment on above: Performed By: #### L 100.0100, L500.2500 ####[facility] [address] [place], [address] Potassium [Moles/Vol] 3.6 mmol/L Normal 3.5-5.1 [facility] Comment on above: Performed By: #### L 100.0100, L500.2500 ####[facility] [address] [place], [address] Sodium [Moles/Vol] 138 mmol/L Normal 136-145 [facility] Comment on above: Performed By: #### L 100.0100, L500.2500 ####[facility] [address] [place], [address] Urea nitrogen [Mass/Vol] 9 mg/dL Normal 7-18 [facility] Comment on above: Performed By: #### L 100.0100, L500.2500 ####[facility] [address] [place], [address] CBC W/Diff, Automatedon 04-29 PATH REV Reviewed Normal [facility] Comment on above: Result Comment: Neut rophilic left shift.Normocytic anemia.Clinical correlation necessary.Lance Barajas M.D. 05/15/24 AMENDED REPORT 05/15/24 0950 PATH REV previously reported as: November Performed By: #### L 100.0100, L500.2500 ####[facility] [address] [place], [address] Prothrombin Time w/INRon INR Coag (PPP) [Relative time] 3.9 {INR} Normal [facility] Comment on above: Performed By: #### L 300.3900 ####[facility] [address] [place], [address] PT Coag (PPP) [Time] 37.7 s High 11.7-14.9 [facility] Comment on above: Performed By: #### L 300.3900 ####[facility] [address] [place], [address] Respiratory Cultureon 2023 RESPC Presumptive C albica ns Amount Growth 3+ Normal [facility] Comment on above: Performed By: #### M 100.2000, M100.2400 ####[facility] [address] [place], [address] Basic Metabolic Profile (BMP )on 05-14-2024 BUN/CRE 14.1 RATIO Normal -20 [facility] Comment on above: Performed By: #### L 100.0100, L500.2500 ####[facility] [address] [place], [address] CA,Total 8.5 mg/dL Normal 8.5-10.1 [facility] Comment on above: Performed By: #### L 100.0100, L500.2500 ####[facility] [address] [place], [address] Chloride [Moles/Vol] 107 mmol/L Normal 98-107 [facility] Comment on above: Performed By: #### L 100.0100, L500.2500 ####[facility] [address] [place], [address] CO2 [Moles/Vol] 24.0 mmol/L Normal 21.0-32.0 [facility] Comment on above: Performed By: #### L 100.0100, L500.2500 ####[facility] [address] [place], [address] Creatinine [Mass/Vol] 0.71 mg/dL Normal 0.70-1.30 [facility] Comment on above: Result Comment: The validity of the calculated GFR GFRAA in patients over70 years has not been determined. Clinical correlation isessential. Performed By: #### L 100.0100, L500.2500 ####[facility] [address] [place], [address] ECRCL 88.38 ml/min Normal [facility] Comment on above: Performed By: #### L 100.0100, L500.2500 ####[facility] [address] [place], [address] EST GFR - AA 142 mL/min Normal >60 [facility] Comment on above: Result Comment: Afri can Egyptian GFR Calc Performed By: #### L 100.0100, L500.2500 ####[facility] [address] [place], [address] GAP 7 Normal 5-15 [facility] Comment on above: Performed By: #### L 100.0100, L500.2500 ####[facility] [address] [place], [address] GFR/1.73 sq M.predicted among non-blacks MDRD (S/P/Bld) [Vol rate/Area] 117 mL/min/{1.73_m2} Normal >60 [facility] Comment on above: Result Comment: Non- GFR Calc Performed By: #### L 100.0100, L500.2500 ####[facility] [address] [place], [address] Glucose [Mass/Vol] 154 mg/dL High 74-106 [facility] Comment on above: Result Comment: Fast ing Glucose result greater than or equal to 126 mg/dLsuggests DIABETES MELLITUS per A.D.A. criteria. Performed By: #### L 100.0100, L500.2500 ####[facility] [address] [place], [address] Potassium [Moles/Vol] 3.3 mmol/L Low 3.5-5.1 [facility] Comment on above: Performed By: #### L 100.0100, L500.2500 ####[facility] [address] [place], [address] Sodium [Moles/Vol] 138 mmol/L Normal 136-145 [facility] Comment on above: Performed By: #### L 100.0100, L500.2500 ####[facility] [address] [place], [address] Urea nitrogen [Mass/Vol] 10 mg/dL Normal 7-18 [facility] Comment on above: Performed By: #### L 100.0100, L500.2500 ####[facility] [address] [place], [address] CBC W/Diff, Automatedon 10-1 6-2023 Absolute Lymph 0.60 X10 3/uL Low 0.83-4.51 [facility] Comment on above: Performed By: #### L 100.0100, L500.2500 ####[facility] [address] [place], [address] Absolute Neut 10.9 X10 3/uL High 2.0-7.7 [facility] Comment on above: Performed By: #### L 100.0100, L500.2500 ####[facility] [address] [place], [address] Basophils/100 WBC (Bld) 0.2 % Normal 0-1 [facility] Comment on above: Performed By: #### L 100.0100, L500.2500 ####[facility] [address] [place], [address] Eosinophils/100 WBC (Bld) 0.0 % Normal 0-5 [facility] Comment on above: Performed By: #### L 100.0100, L500.2500 ####[facility] [address] [place], [address] Erythrocyte distribution width (RBC) [Ratio] 15.2 % High 11.6-14.6 [facility] Comment on above: Performed By: #### L 100.0100, L500.2500 ####[facility] [address] [place], [address] Hematocrit (Bld) [Volume fraction] 30.7 % Low 40-54 [facility] Comment on above: Performed By: #### L 100.0100, L500.2500 ####[facility] [address] [place], [address] Hemoglobin (Bld) [Mass/Vol] 10.4 g/dL Low 13.0-16.5 [facility] Comment on above: Performed By: #### L 100.0100, L500.2500 ####[facility] [address] [place], [address] IG% 2.000 High 0.0-0.9 [facility] Comment on above: Result Comment: IG% - Immature Granulocytes (promyelocytes, myelocytes andmetamyelocytes) > 1% indicates that a LEFT SHIFT is Present. Performed By: #### L 100.0100, L500.2500 ####[facility] [address] [place], [address] Lymphocytes/100 WBC (Bld) 4.9 % Low 19-41 [facility] Comment on above: Performed By: #### L 100.0100, L500.2500 ####[facility] [address] [place], [address] MCH (RBC) [Entitic mass] 31.1 pg Normal 27.0-32.0 [facility] Comment on above: Performed By: #### L 100.0100, L500.2500 ####[facility] [address] [place], [address] MCHC (RBC) [Mass/Vol] 33.9 g/dL Normal 32-36 [facility] Comment on above: Performed By: #### L 100.0100, L500.2500 ####[facility] [address] [place], [address] MCV (RBC) [Entitic vol] 91.9 fL Normal 80-94 [facility] Comment on above: Performed By: #### L 100.0100, L500.2500 ####[facility] [address] [place], [address] Monocytes/100 WBC (Bld) 4.0 % Normal 0-10 [facility] Comment on above: Performed By: #### L 100.0100, L500.2500 ####[facility] [address] [place], [address] Neutrophils/100 WBC (Bld) 88.9 % High 47-70 [facility] Comment on above: Performed By: #### L 100.0100, L500.2500 ####[facility] [address] [place], [address] Nucleated RBC (Bld) [#/Vol] 0 10*3/uL Normal 0-5 [facility] Comment on above: Performed By: #### L 100.0100, L500.2500 ####[facility] [address] [place], [address] Platelet mean volume (Bld) [Entitic vol] 9.8 fL Normal 6.2-12.0 [facility] Comment on above: Performed By: #### L 100.0100, L500.2500 ####[facility] [address] [place], [address] Platelets (Bld) [#/Vol] 265 10*3/uL Normal 150-450 [facility] Comment on above: Performed By: #### L 100.0100, L500.2500 ####[facility] [address] [place], [address] RBC (Bld) [#/Vol] 3.34 10*6/uL Low 4.6-6.2 [facility] Comment on above: Performed By: #### L 100.0100, L500.2500 ####[facility] [address] [place], [address] RDW SD 51.3 fl High 35.1-43.9 [facility] Comment on above: Performed By: #### L 100.0100, L500.2500 ####[facility] [address] [place], [address] WBC (Bld) [#/Vol] 12.3 10*3/uL High 4.4-11.0 [facility] Comment on above: Performed By: #### L 100.0100, L500.2500 ####[facility] [address] [place], [address] CTA Chest W/WO Contraston CTA Chest W/WO Contrast Normal [facility] Consultation - Intensiviston 05-14-2024 Consultation - Motor Vehicle Licence Examiner Normal [facility] Gram Stainon 05-14-2024 GS Acceptable Specimen? Yes (<25 Epithelial cells per/lpf) Gram Stain Rare White Blood Cells Rare Epithelial cells 2+ Yeast Like Organisms 2+ Gram positive cocci Normal [facility] Comment on above: Performed By: #### M 100.2000, M100.2400 ####[facility] [address] [place], [address] Legionella Antigen Urineon 1 LEGU Normal [facility] Comment on above: Performed By: #### M 300.4500 ####[facility] [address] [place], [address] M8200.1000on 05-14-2024 M8200.1000 Negative Normal [facility] Comment on above: Performed By: #### M 8200.1000 ####[facility] [address] [place], [address] Prothrombin Time w/INRon INR Coag (PPP) [Relative time] 3.3 {INR} Normal [facility] Comment on above: Performed By: #### L 300.3900 ####[facility] [address] [place], [address] PT Coag (PPP) [Time] 33.1 s High 11.7-14.9 [facility] Comment on above: Performed By: #### L 300.3900 ####[facility] [address] [place], [address] Strep pneumoniae Antig(UR,CS F)on 05-14-2024 STPAG Normal [facility] Comment on above: Performed By: #### M 300.4600 ####[facility] [address] [place], [address] Basic Metabolic Profile (BMP )on 05-13-2024 BUN/CRE 12.5 RATIO Normal 10-20 [facility] Comment on above: Performed By: #### L 500.2500, L100.0100 ####[facility] [address] [place], [address] CA,Total 8.4 mg/dL Low 8.5-10.1 [facility] Comment on above: Performed By: #### L 500.2500, L100.0100 ####[facility] [address] [place], [address] Chloride [Moles/Vol] 104 mmol/L Normal 98-107 [facility] Comment on above: Performed By: #### L 500.2500, L100.0100 ####[facility] [address] [place], [address] CO2 [Moles/Vol] 25.0 mmol/L Normal 21.0-32.0 [facility] Comment on above: Performed By: #### L 500.2500, L100.0100 ####[facility] [address] [place], [address] Creatinine [Mass/Vol] 0.72 mg/dL Normal 0.70-1.30 [facility] Comment on above: Result Comment: The validity of the calculated GFR GFRAA in patients over70 years has not been determined. Clinical correlation isessential. Performed By: #### L 500.2500, L100.0100 ####[facility] [address] [place], [address] ECRCL 88.38 ml/min Normal [facility] Comment on above: Performed By: #### L 500.2500, L100.0100 ####[facility] [address] [place], [address] EST GFR - AA 140 mL/min Normal >60 [facility] Comment on above: Result Comment: Afri can Egyptian GFR Calc Performed By: #### L 500.2500, L100.0100 ####[facility] [address] [place], [address] GAP 7 Normal 5-15 [facility] Comment on above: Performed By: #### L 500.2500, L100.0100 ####[facility] [address] [place], [address] GFR/1.73 sq M.predicted among non-blacks MDRD (S/P/Bld) [Vol rate/Area] 116 mL/min/{1.73_m2} Normal >60 [facility] Comment on above: Result Comment: Non- GFR Calc Performed By: #### L 500.2500, L100.0100 ####[facility] [address] [place], [address] Glucose [Mass/Vol] 119 mg/dL High 74-106 [facility] Comment on above: Result Comment: Fast ing Glucose result from 100 to 125 mg/dLsuggests IMPAIRED HOMEOSTASIS per A.D.A. criteria. Performed By: #### L 500.2500, L100.0100 ####[facility] [address] [place], [address] Potassium [Moles/Vol] 3.6 mmol/L Normal 3.5-5.1 [facility] Comment on above: Performed By: #### L 500.2500, L100.0100 ####[facility] [address] [place], [address] Sodium [Moles/Vol] 136 mmol/L Normal 136-145 [facility] Comment on above: Performed By: #### L 500.2500, L100.0100 ####[facility] [address] [place], [address] Urea nitrogen [Mass/Vol] 9 mg/dL Normal 7-18 [facility] Comment on above: Performed By: #### L 500.2500, L100.0100 ####[facility] [address] [place], [address] CBC W/Diff, Automatedon 10- 5-2023 Absolute Lymph 0.54 X10 3/uL Low 0.83-4.51 [facility] Comment on above: Performed By: #### L 500.2500, L100.0100 ####[facility] [address] [place], [address] Absolute Neut 14.9 X10 3/uL High 2.0-7.7 [facility] Comment on above: Performed By: #### L 500.2500, L100.0100 ####[facility] [address] [place], [address] Basophils/100 WBC (Bld) 0.1 % Normal 0-1 [facility] Comment on above: Performed By: #### L 500.2500, L100.0100 ####[facility] [address] [place], [address] Eosinophils/100 WBC (Bld) 0.0 % Normal 0-5 [facility] Comment on above: Performed By: #### L 500.2500, L100.0100 ####[facility] [address] [place], [address] Erythrocyte distribution width (RBC) [Ratio] 15.1 % High 11.6-14.6 [facility] Comment on above: Performed By: #### L 500.2500, L100.0100 ####[facility] [address] [place], [address] Hematocrit (Bld) [Volume fraction] 29.6 % Low 40-54 [facility] Comment on above: Performed By: #### L 500.2500, L100.0100 ####[facility] [address] [place], [address] Hemoglobin (Bld) [Mass/Vol] 9.7 g/dL Low 13.0-16.5 [facility] Comment on above: Performed By: #### L 500.2500, L100.0100 ####[facility] [address] [place], [address] IG% 1.200 High 0.0-0.9 [facility] Comment on above: Result Comment: IG% - Immature Granulocytes (promyelocytes, myelocytes andmetamyelocytes) > 1% indicates that a LEFT SHIFT is Present. Performed By: #### L 500.2500, L100.0100 ####[facility] [address] [place], [address] Lymphocytes/100 WBC (Bld) 3.4 % Low 19-41 [facility] Comment on above: Performed By: #### L 500.2500, L100.0100 ####[facility] [address] [place], [address] MCH (RBC) [Entitic mass] 30.1 pg Normal 27.0-32.0 [facility] Comment on above: Performed By: #### L 500.2500, L100.0100 ####[facility] [address] [place], [address] MCHC (RBC) [Mass/Vol] 32.8 g/dL Normal 32-36 [facility] Comment on above: Performed By: #### L 500.2500, L100.0100 ####[facility] [address] [place], [address] MCV (RBC) [Entitic vol] 91.9 fL Normal 80-94 [facility] Comment on above: Performed By: #### L 500.2500, L100.0100 ####[facility] [address] [place], [address] Monocytes/100 WBC (Bld) 2.4 % Normal 0-10 [facility] Comment on above: Performed By: #### L 500.2500, L100.0100 ####[facility] [address] [place], [address] Neutrophils/100 WBC (Bld) 92.9 % High 47-70 [facility] Comment on above: Performed By: #### L 500.2500, L100.0100 ####[facility] [address] [place], [address] Nucleated RBC (Bld) [#/Vol] 0 10*3/uL Normal 0-5 [facility] Comment on above: Performed By: #### L 500.2500, L100.0100 ####[facility] [address] [place], [address] Platelet mean volume (Bld) [Entitic vol] 9.6 fL Normal 6.2-12.0 [facility] Comment on above: Performed By: #### L 500.2500, L100.0100 ####[facility] [address] [place], [address] Platelets (Bld) [#/Vol] 237 10*3/uL Normal 150-450 [facility] Comment on above: Performed By: #### L 500.2500, L100.0100 ####[facility] [address] [place], [address] RBC (Bld) [#/Vol] 3.22 10*6/uL Low 4.6-6.2 [facility] Comment on above: Performed By: #### L 500.2500, L100.0100 ####[facility] [address] [place], [address] RDW SD 50.3 fl High 35.1-43.9 [facility] Comment on above: Performed By: #### L 500.2500, L100.0100 ####[facility] [address] [place], [address] WBC (Bld) [#/Vol] 16.0 10*3/uL High 4.4-11.0 [facility] Comment on above: Performed By: #### L 500.2500, L100.0100 ####[facility] [address] [place], [address] Prothrombin Time w/INRon INR Coag (PPP) [Relative time] 2.4 {INR} Normal [facility] Comment on above: Performed By: #### L 300.3900 ####[facility] [address] [place], [address] PT Coag (PPP) [Time] 26.3 s High 11.7-14.9 [facility] Comment on above: Performed By: #### L 300.3900 ####[facility] [address] [place], [address] Basic Metabolic Profile (BMP )on 05-12-2024 BUN/CRE 14.5 RATIO Normal -20 [facility] Comment on above: Performed By: #### L 500.2500, L100.0100, L300.3900 ####[facility] [address] [place], [address] CA,Total 8.7 mg/dL Normal 8.5-10.1 [facility] Comment on above: Performed By: #### L 500.2500, L100.0100, L300.3900 ####[facility] [address] [place], [address] Chloride [Moles/Vol] 100 mmol/L Normal 98-107 [facility] Comment on above: Performed By: #### L 500.2500, L100.0100, L300.3900 ####[facility] [address] [place], [address] CO2 [Moles/Vol] 23.0 mmol/L Normal 21.0-32.0 [facility] Comment on above: Performed By: #### L 500.2500, L100.0100, L300.3900 ####[facility] [address] [place], [address] Creatinine [Mass/Vol] 0.69 mg/dL Low 0.70-1.30 [facility] Comment on above: Result Comment: The validity of the calculated GFR GFRAA in patients over70 years has not been determined. Clinical correlation isessential. Performed By: #### L 500.2500, L100.0100, L300.3900 ####[facility] [address] [place], [address] ECRCL 85.38 ml/min Normal [facility] Comment on above: Performed By: #### L 500.2500, L100.0100, L300.3900 ####[facility] [address] [place], [address] EST GFR - AA 147 mL/min Normal >60 [facility] Comment on above: Result Comment: Afri can Egyptian GFR Calc Performed By: #### L 500.2500, L100.0100, L300.3900 ####[facility] [address] [place], [address] GAP 10 Normal 5-15 [facility] Comment on above: Performed By: #### L 500.2500, L100.0100, L300.3900 ####[facility] [address] [place], [address] GFR/1.73 sq M.predicted among non-blacks MDRD (S/P/Bld) [Vol rate/Area] 121 mL/min/{1.73_m2} Normal >60 [facility] Comment on above: Result Comment: Non- GFR Calc Performed By: #### L 500.2500, L100.0100, L300.3900 ####[facility] [address] [place], [address] Glucose [Mass/Vol] 212 mg/dL High 74-106 [facility] Comment on above: Result Comment: Gluc ose result greater than or equal to 200 mg/dLsuggests DIABETES MELLITUS per A.D.A. criteria. Performed By: #### L 500.2500, L100.0100, L300.3900 ####[facility] [address] [place], [address] Potassium [Moles/Vol] 3.4 mmol/L Low 3.5-5.1 [facility] Comment on above: Performed By: #### L 500.2500, L100.0100, L300.3900 ####[facility] [address] [place], [address] Sodium [Moles/Vol] 133 mmol/L Low 136-145 [facility] Comment on above: Performed By: #### L 500.2500, L100.0100, L300.3900 ####[facility] [address] [place], [address] Urea nitrogen [Mass/Vol] 10 mg/dL Normal 7-18 [facility] Comment on above: Performed By: #### L 500.2500, L100.0100, L300.3900 ####[facility] [address] [place], [address] CBC W/Diff, Automatedon 10-1 -2023 Absolute Lymph 0.48 X10 3/uL Low 0.83-4.51 [facility] Comment on above: Performed By: #### L 500.2500, L100.0100, L300.3900 ####[facility] [address] [place], [address] Absolute Neut 16.9 X10 3/uL High 2.0-7.7 [facility] Comment on above: Performed By: #### L 500.2500, L100.0100, L300.3900 ####[facility] [address] [place], [address] Basophils/100 WBC (Bld) 0.1 % Normal 0-1 [facility] Comment on above: Performed By: #### L 500.2500, L100.0100, L300.3900 ####[facility] [address] [place], [address] Eosinophils/100 WBC (Bld) 0.0 % Normal 0-5 [facility] Comment on above: Performed By: #### L 500.2500, L100.0100, L300.3900 ####[facility] [address] [place], [address] Erythrocyte distribution width (RBC) [Ratio] 14.8 % High 11.6-14.6 [facility] Comment on above: Performed By: #### L 500.2500, L100.0100, L300.3900 ####[facility] [address] [place], [address] Hematocrit (Bld) [Volume fraction] 30.0 % Low 40-54 [facility] Comment on above: Performed By: #### L 500.2500, L100.0100, L300.3900 ####[facility] [address] [place], [address] Hemoglobin (Bld) [Mass/Vol] 9.8 g/dL Low 13.0-16.5 [facility] Comment on above: Performed By: #### L 500.2500, L100.0100, L300.3900 ####[facility] [address] [place], [address] IG% 0.900 Normal 0.0-0.9 [facility] Comment on above: Result Comment: IG% - Immature Granulocytes (promyelocytes, myelocytes andmetamyelocytes) > 1% indicates that a LEFT SHIFT is Present. Performed By: #### L 500.2500, L100.0100, L300.3900 ####[facility] [address] [place], [address] Lymphocytes/100 WBC (Bld) 2.7 % Low 19-41 [facility] Comment on above: Performed By: #### L 500.2500, L100.0100, L300.3900 ####[facility] [address] [place], [address] MCH (RBC) [Entitic mass] 30.2 pg Normal 27.0-32.0 [facility] Comment on above: Performed By: #### L 500.2500, L100.0100, L300.3900 ####[facility] [address] [place], [address] MCHC (RBC) [Mass/Vol] 32.7 g/dL Normal 32-36 [facility] Comment on above: Performed By: #### L 500.2500, L100.0100, L300.3900 ####[facility] [address] [place], [address] MCV (RBC) [Entitic vol] 92.3 fL Normal 80-94 [facility] Comment on above: Performed By: #### L 500.2500, L100.0100, L300.3900 ####[facility] [address] [place], [address] Monocytes/100 WBC (Bld) 2.2 % Normal 0-10 [facility] Comment on above: Performed By: #### L 500.2500, L100.0100, L300.3900 ####[facility] [address] [place], [address] Neutrophils/100 WBC (Bld) 94.1 % High 47-70 [facility] Comment on above: Performed By: #### L 500.2500, L100.0100, L300.3900 ####[facility] [address] [place], [address] Nucleated RBC (Bld) [#/Vol] 0 10*3/uL Normal 0-5 [facility] Comment on above: Performed By: #### L 500.2500, L100.0100, L300.3900 ####[facility] [address] [place], [address] Platelet mean volume (Bld) [Entitic vol] 9.7 fL Normal 6.2-12.0 [facility] Comment on above: Performed By: #### L 500.2500, L100.0100, L300.3900 ####[facility] [address] [place], [address] Platelets (Bld) [#/Vol] 229 10*3/uL Normal 150-450 [facility] Comment on above: Performed By: #### L 500.2500, L100.0100, L300.3900 ####[facility] [address] [place], [address] RBC (Bld) [#/Vol] 3.25 10*6/uL Low 4.6-6.2 [facility] Comment on above: Performed By: #### L 500.2500, L100.0100, L300.3900 ####[facility] [address] [place], [address] RDW SD 50.0 fl High 35.1-43.9 [facility] Comment on above: Performed By: #### L 500.2500, L100.0100, L300.3900 ####[facility] [address] [place], [address] WBC (Bld) [#/Vol] 18.0 10*3/uL High 4.4-11.0 [facility] Comment on above: Performed By: #### L 500.2500, L100.0100, L300.3900 ####[facility] [address] [place], [address] Prothrombin Time w/INRon INR Coag (PPP) [Relative time] 2.4 {INR} Normal [facility] Comment on above: Performed By: #### L 500.2500, L100.0100, L300.3900 ####[facility] [address] [place], [address] PT Coag (PPP) [Time] 25.8 s High 11.7-14.9 [facility] Comment on above: Performed By: #### L 500.2500, L100.0100, L300.3900 ####[facility] [address] [place], [address] Basic Metabolic Profile (BMP )on 05-11-2024 BUN/CRE 14.8 RATIO Normal 05-18 [facility] Comment on above: Performed By: #### L 100.0100, L500.2500, L300.3900 ####[facility] [address] [place], [address] CA,Total 8.0 mg/dL Low 8.5-10.1 [facility] Comment on above: Performed By: #### L 100.0100, L500.2500, L300.3900 ####[facility] [address] [place], [address] Chloride [Moles/Vol] 103 mmol/L Normal 98-107 [facility] Comment on above: Performed By: #### L 100.0100, L500.2500, L300.3900 ####[facility] [address] [place], [address] CO2 [Moles/Vol] 25.0 mmol/L Normal 21.0-32.0 [facility] Comment on above: Performed By: #### L 100.0100, L500.2500, L300.3900 ####[facility] [address] [place], [address] Creatinine [Mass/Vol] 0.61 mg/dL Low 0.70-1.30 [facility] Comment on above: Result Comment: The validity of the calculated GFR GFRAA in patients over70 years has not been determined. Clinical correlation isessential. Performed By: #### L 100.0100, L500.2500, L300.3900 ####[facility] [address] [place], [address] ECRCL 85.50 ml/min Normal [facility] Comment on above: Performed By: #### L 100.0100, L500.2500, L300.3900 ####[facility] [address] [place], [address] EST GFR - AA 169 mL/min Normal >60 [facility] Comment on above: Result Comment: Afri can Egyptian GFR Calc Performed By: #### L 100.0100, L500.2500, L300.3900 ####[facility] [address] [place], [address] GAP 7 Normal 5-15 [facility] Comment on above: Performed By: #### L 100.0100, L500.2500, L300.3900 ####[facility] [address] [place], [address] GFR/1.73 sq M.predicted among non-blacks MDRD (S/P/Bld) [Vol rate/Area] 140 mL/min/{1.73_m2} Normal >60 [facility] Comment on above: Result Comment: Non- GFR Calc Performed By: #### L 100.0100, L500.2500, L300.3900 ####[facility] [address] [place], [address] Glucose [Mass/Vol] 213 mg/dL High 74-106 [facility] Comment on above: Result Comment: Gluc ose result greater than or equal to 200 mg/dLsuggests DIABETES MELLITUS per A.D.A. criteria. Performed By: #### L 100.0100, L500.2500, L300.3900 ####[facility] [address] [place], [address] Potassium [Moles/Vol] 2.8 mmol/L Low 3.5-5.1 [facility] Comment on above: Performed By: #### L 100.0100, L500.2500, L300.3900 ####[facility] [address] [place], [address] Sodium [Moles/Vol] 135 mmol/L Low 136-145 [facility] Comment on above: Performed By: #### L 100.0100, L500.2500, L300.3900 ####[facility] [address] [place], [address] Urea nitrogen [Mass/Vol] 9 mg/dL Normal 7-18 [facility] Comment on above: Performed By: #### L 100.0100, L500.2500, L300.3900 ####[facility] [address] [place], [address] CBC W/Diff, Automatedon 10-2023 Absolute Lymph 0.49 X10 3/uL Low 0.83-4.51 [facility] Comment on above: Performed By: #### L 100.0100, L500.2500, L300.3900 ####[facility] [address] [place], [address] Absolute Neut 5.3 X10 3/uL Normal 2.0-7.7 [facility] Comment on above: Performed By: #### L 100.0100, L500.2500, L300.3900 ####[facility] [address] [place], [address] Basophils/100 WBC (Bld) 0.2 % Normal 0-1 [facility] Comment on above: Performed By: #### L 100.0100, L500.2500, L300.3900 ####[facility] [address] [place], [address] Eosinophils/100 WBC (Bld) 0.2 % Normal 0-5 [facility] Comment on above: Performed By: #### L 100.0100, L500.2500, L300.3900 ####[facility] [address] [place], [address] Erythrocyte distribution width (RBC) [Ratio] 14.6 % Normal 11.6-14.6 [facility] Comment on above: Performed By: #### L 100.0100, L500.2500, L300.3900 ####[facility] [address] [place], [address] Hematocrit (Bld) [Volume fraction] 31.2 % Low 40-54 [facility] Comment on above: Performed By: #### L 100.0100, L500.2500, L300.3900 ####[facility] [address] [place], [address] Hemoglobin (Bld) [Mass/Vol] 10.3 g/dL Low 13.0-16.5 [facility] Comment on above: Performed By: #### L 100.0100, L500.2500, L300.3900 ####[facility] [address] [place], [address] IG% 1.000 High 0.0-0.9 [facility] Comment on above: Result Comment: IG% - Immature Granulocytes (promyelocytes, myelocytes andmetamyelocytes) > 1% indicates that a LEFT SHIFT is Present. Performed By: #### L 100.0100, L500.2500, L300.3900 ####[facility] [address] [place], [address] Lymphocytes/100 WBC (Bld) 8.2 % Low 19-41 [facility] Comment on above: Performed By: #### L 100.0100, L500.2500, L300.3900 ####[facility] [address] [place], [address] MCH (RBC) [Entitic mass] 30.4 pg Normal 27.0-32.0 [facility] Comment on above: Performed By: #### L 100.0100, L500.2500, L300.3900 ####[facility] [address] [place], [address] MCHC (RBC) [Mass/Vol] 33.0 g/dL Normal 32-36 [facility] Comment on above: Performed By: #### L 100.0100, L500.2500, L300.3900 ####[facility] [address] [place], [address] MCV (RBC) [Entitic vol] 92.0 fL Normal 80-94 [facility] Comment on above: Performed By: #### L 100.0100, L500.2500, L300.3900 ####[facility] [address] [place], [address] Monocytes/100 WBC (Bld) 1.8 % Normal 0-10 [facility] Comment on above: Performed By: #### L 100.0100, L500.2500, L300.3900 ####[facility] [address] [place], [address] Neutrophils/100 WBC (Bld) 88.6 % High 47-70 [facility] Comment on above: Performed By: #### L 100.0100, L500.2500, [id number] ####[facility] [address] [place], [address] Nucleated RBC (Bld) [#/Vol] 0 10*3/uL Normal 0-5 [facility] Comment on above: Performed By: #### L 100.0100, L500.2500, L300.3900 ####[facility] [address] [place], [address] Platelet mean volume (Bld) [Entitic vol] 9.7 fL Normal 6.2-12.0 [facility] Comment on above: Performed By: #### L 100.0100, L500.2500, L300.3900 ####[facility] [address] [place], [address] Platelets (Bld) [#/Vol] 169 10*3/uL Normal 150-450 [facility] Comment on above: Performed By: #### L 100.0100, L500.2500, L300.3900 ####[facility] [address] [place], [address] RBC (Bld) [#/Vol] 3.39 10*6/uL Low 4.6-6.2 [facility] Comment on above: Performed By: #### L 100.0100, L500.2500, L300.3900 ####[facility] [address] [place], [address] RDW SD 49.8 fl High 35.1-43.9 [facility] Comment on above: Performed By: #### L 100.0100, L500.2500, L300.3900 ####[facility] [address] [place], [address] WBC (Bld) [#/Vol] 6.0 10*3/uL Normal 4.4-11.0 [facility] Comment on above: Performed By: #### L 100.0100, L500.2500, L300.3900 ####[facility] [address] [place], [address] Magnesiumon 05-11-2024 Magnesium [Mass/Vol] 1.8 mg/dL Normal 1.6-2.6 [facility] Comment on above: Performed By: #### L 501.5200, L501.2300 ####[facility] [address] [place], [address] Phosphoruson 05-11-2024 Phosphate [Mass/Vol] 2.3 mg/dL Low 2.5-4.9 [facility] Comment on above: Performed By: #### L 501.5200, L501.2300 ####[facility] [address] [place], [address] Prothrombin Time w/INRon INR Coag (PPP) [Relative time] 1.9 {INR} Normal [facility] Comment on above: Performed By: #### L 100.0100, L500.2500, L300.3900 ####[facility] [address] [place], [address] PT Coag (PPP) [Time] 21.2 s High 11.7-14.9 [facility] Comment on above: Performed By: #### L 100.0100, L500.2500, L300.3900 ####[facility] [address] [place], [address] RESPIRATORY PANEL MOLECULARo n 05-11-2024 RP PANEL Normal [facility] Comment on above: Performed By: #### M 100.638 ####[facility] [address] [place], [address] 12 Lead EKGon 05-10-2024 12 Lead EKG Normal [facility] BNP,B-Type NATRIURETIC PEPTI Cayetano 05-10-2024 Natriuretic peptide B (Bld) [Mass/Vol] 154.8 pg/mL High 0-100 [facility] Comment on above: Performed By: #### L 100.0100, L503.6620, L501.4020, L500.2500 ####[facility] [address] [place], [address] Basic Metabolic Profile (BMP )on 05-10-2024 BUN/CRE 12.7 RATIO Normal - [facility] Comment on above: Order Comment: f/u h ypokalemia Performed By: #### L 500.2500 ####[facility] [address] [place], [address] CA,Total 8.1 mg/dL Low 8.5-10.1 [facility] Comment on above: Order Comment: f/u h ypokalemia Performed By: #### L 500.2500 ####[facility] [address] [place], [address] Chloride [Moles/Vol] 103 mmol/L Normal 98-107 [facility] Comment on above: Order Comment: f/u h ypokalemia Performed By: #### L 500.2500 ####[facility] [address] [place], [address] CO2 [Moles/Vol] 24.0 mmol/L Normal 21.0-32.0 [facility] Comment on above: Order Comment: f/u h ypokalemia Performed By: #### L 500.2500 ####[facility] [address] [place], [address] Creatinine [Mass/Vol] 0.71 mg/dL Normal 0.70-1.30 [facility] Comment on above: Order Comment: f/u h ypokalemia Result Comment: The validity of the calculated GFR GFRAA in patients over70 years has not been determined. Clinical correlation isessential. Performed By: #### L 500.2500 ####[facility] [address] [place], [address] ECRCL 88.38 ml/min Normal [facility] Comment on above: Order Comment: f/u h ypokalemia Performed By: #### L 500.2500 ####[facility] [address] [place], [address] EST GFR - AA 143 mL/min Normal >60 [facility] Comment on above: Order Comment: f/u h ypokalemia Result Comment: Afri can Egyptian GFR Calc Performed By: #### L 500.2500 ####[facility] [address] [place], [address] GAP 9 Normal 5-15 [facility] Comment on above: Order Comment: f/u h ypokalemia Performed By: #### L 500.2500 ####[facility] [address] [place], [address] GFR/1.73 sq M.predicted among non-blacks MDRD (S/P/Bld) [Vol rate/Area] 118 mL/min/{1.73_m2} Normal >60 [facility] Comment on above: Order Comment: f/u h ypokalemia Result Comment: Non- GFR Calc Performed By: #### L 500.2500 ####[facility] [address] [place], [address] Glucose [Mass/Vol] 146 mg/dL High 74-106 [facility] Comment on above: Order Comment: f/u h ypokalemia Result Comment: Fast ing Glucose result greater than or equal to 126 mg/dLsuggests DIABETES MELLITUS per A.D.A. criteria. Performed By: #### L 500.2500 ####[facility] [address] [place], [address] Potassium [Moles/Vol] 3.1 mmol/L Low 3.5-5.1 [facility] Comment on above: Order Comment: f/u h ypokalemia Performed By: #### L 500.2500 ####[facility] [address] [place], [address] Sodium [Moles/Vol] 136 mmol/L Normal 136-145 [facility] Comment on above: Order Comment: f/u h ypokalemia Performed By: #### L 500.2500 ####[facility] [address] [place], [address] Urea nitrogen [Mass/Vol] 9 mg/dL Normal 7-18 [facility] Comment on above: Order Comment: f/u h ypokalemia Performed By: #### L 500.2500 ####[facility] [address] [place], [address] BUN/CRE 10.2 RATIO Normal 10-20 [facility] Comment on above: Order Comment: 'TROP ' Serial specimen #1, #2 or #3: 1 Performed By: #### L 100.0100, L503.6620, L501.4020, L500.2500 ####[facility] [address] [place], [address] CA,Total 8.3 mg/dL Low 8.5-10.1 [facility] Comment on above: Order Comment: 'TROP ' Serial specimen #1, #2 or #3: 1 Performed By: #### L 100.0100, L503.6620, L501.4020, L500.2500 ####[facility] [address] [place], [address] Chloride [Moles/Vol] 103 mmol/L Normal 98-107 [facility] Comment on above: Order Comment: 'TROP ' Serial specimen #1, #2 or #3: 1 Performed By: #### L 100.0100, L503.6620, L501.4020, L500.2500 ####[facility] [address] [place], [address] CO2 [Moles/Vol] 26.0 mmol/L Normal 21.0-32.0 [facility] Comment on above: Order Comment: 'TROP ' Serial specimen #1, #2 or #3: 1 Performed By: #### L 100.0100, L503.6620, L501.4020, L500.2500 ####[facility] [address] [place], [address] Creatinine [Mass/Vol] 0.98 mg/dL Normal 0.70-1.30 [facility] Comment on above: Order Comment: 'TROP ' Serial specimen #1, #2 or #3: 1 Result Comment: The validity of the calculated GFR GFRAA in patients over70 years has not been determined. Clinical correlation isessential. Performed By: #### L 100.0100, L503.6620, L501.4020, L500.2500 ####[facility] [address] [place], [address] ECRCL 67.45 ml/min Normal [facility] Comment on above: Order Comment: 'TROP ' Serial specimen #1, #2 or #3: 1 Performed By: #### L 100.0100, L503.6620, L501.4020, L500.2500 ####[facility] [address] [place], [address] EST GFR - AA 97 mL/min Normal >60 [facility] Comment on above: Order Comment: 'TROP ' Serial specimen #1, #2 or #3: 1 Result Comment: Afri can Egyptian GFR Calc Performed By: #### L 100.0100, L503.6620, L501.4020, L500.2500 ####[facility] [address] [place], [address] GAP 9 Normal 5-15 [facility] Comment on above: Order Comment: 'TROP ' Serial specimen #1, #2 or #3: 1 Performed By: #### L 100.0100, L503.6620, L501.4020, L500.2500 ####[facility] [address] [place], [address] GFR/1.73 sq M.predicted among non-blacks MDRD (S/P/Bld) [Vol rate/Area] 80 mL/min/{1.73_m2} Normal >60 [facility] Comment on above: Order Comment: 'TROP ' Serial specimen #1, #2 or #3: 1 Result Comment: Non- GFR Calc Performed By: #### L 100.0100, L503.6620, L501.4020, L500.2500 ####[facility] [address] [place], [address] Glucose [Mass/Vol] 153 mg/dL High 74-106 [facility] Comment on above: Order Comment: 'TROP ' Serial specimen #1, #2 or #3: 1 Result Comment: Fast ing Glucose result greater than or equal to 126 mg/dLsuggests DIABETES MELLITUS per A.D.A. criteria. Performed By: #### L 100.0100, L503.6620, L501.4020, L500.2500 ####[facility] [address] [place], [address] Potassium [Moles/Vol] 2.5 mmol/L Invalid Interpretation Code 3.5-5.1 [facility] Comment on above: Order Comment: 'TROP ' Serial specimen #1, #2 or #3: 1 Result Comment: Crit ical Result(s) Called at: 18:19:21 05/10/2024 by:MARY Results read back by ANDRZEJ Performed By: #### L 100.0100, L503.6620, L501.4020, L500.2500 ####[facility] [address] [place], [address] Sodium [Moles/Vol] 138 mmol/L Normal 136-145 [facility] Comment on above: Order Comment: 'TROP ' Serial specimen #1, #2 or #3: 1 Performed By: #### L 100.0100, L503.6620, L501.4020, L500.2500 ####[facility] [address] [place], [address] Urea nitrogen [Mass/Vol] 10 mg/dL Normal 7-18 [facility] Comment on above: Order Comment: 'TROP ' Serial specimen #1, #2 or #3: 1 Performed By: #### L 100.0100, L503.6620, L501.4020, L500.2500 ####[facility] [address] [place], [address] CBC W/Diff, Automatedon 04-29 Absolute Lymph 0.83 X10 3/uL Normal 0.83-4.51 [facility] Comment on above: Performed By: #### L 100.0100, L503.6620, L501.4020, L500.2500 ####[facility] [address] [place], [address] Absolute Neut 9.7 X10 3/uL High 2.0-7.7 [facility] Comment on above: Performed By: #### L 100.0100, L503.6620, L501.4020, L500.2500 ####[facility] [address] [place], [address] Basophils/100 WBC (Bld) 0.2 % Normal 0-1 [facility] Comment on above: Performed By: #### L 100.0100, L503.6620, L501.4020, L500.2500 ####[facility] [address] [place], [address] Eosinophils/100 WBC (Bld) 0.4 % Normal 0-5 [facility] Comment on above: Performed By: #### L 100.0100, L503.6620, L501.4020, L500.2500 ####[facility] [address] [place], [address] Erythrocyte distribution width (RBC) [Ratio] 14.8 % High 11.6-14.6 [facility] Comment on above: Performed By: #### L 100.0100, L503.6620, L501.4020, L500.2500 ####[facility] [address] [place], [address] Hematocrit (Bld) [Volume fraction] 30.0 % Low 40-54 [facility] Comment on above: Performed By: #### L 100.0100, L503.6620, L501.4020, L500.2500 ####[facility] [address] [place], [address] Hemoglobin (Bld) [Mass/Vol] 10.0 g/dL Low 13.0-16.5 [facility] Comment on above: Performed By: #### L 100.0100, L503.6620, L501.4020, L500.2500 ####[facility] [address] [place], [address] IG% 0.700 Normal 0.0-0.9 [facility] Comment on above: Result Comment: IG% - Immature Granulocytes (promyelocytes, myelocytes andmetamyelocytes) > 1% indicates that a LEFT SHIFT is Present. Performed By: #### L 100.0100, L503.6620, L501.4020, L500.2500 ####[facility] [address] [place], [address] Lymphocytes/100 WBC (Bld) 7.4 % Low 19-41 [facility] Comment on above: Performed By: #### L 100.0100, L503.6620, L501.4020, L500.2500 ####[facility] [address] [place], [address] MCH (RBC) [Entitic mass] 31.0 pg Normal 27.0-32.0 [facility] Comment on above: Performed By: #### L 100.0100, L503.6620, L501.4020, L500.2500 ####[facility] [address] [place], [address] MCHC (RBC) [Mass/Vol] 33.3 g/dL Normal 32-36 [facility] Comment on above: Performed By: #### L 100.0100, L503.6620, L501.4020, L500.2500 ####[facility] [address] [place], [address] MCV (RBC) [Entitic vol] 92.9 fL Normal 80-94 [facility] Comment on above: Performed By: #### L 100.0100, L503.6620, L501.4020, L500.2500 ####[facility] [address] [place], [address] Monocytes/100 WBC (Bld) 4.8 % Normal 0-10 [facility] Comment on above: Performed By: #### L 100.0100, L503.6620, L501.4020, L500.2500 ####[facility] [address] [place], [address] Neutrophils/100 WBC (Bld) 86.5 % High 47-70 [facility] Comment on above: Performed By: #### L 100.0100, L503.6620, L501.4020, L500.2500 ####[facility] [address] [place], [address] Nucleated RBC (Bld) [#/Vol] 0 10*3/uL Normal 0-5 [facility] Comment on above: Performed By: #### L 100.0100, L503.6620, L501.4020, L500.2500 ####[facility] [address] [place], [address] Platelet mean volume (Bld) [Entitic vol] 9.4 fL Normal 6.2-12.0 [facility] Comment on above: Performed By: #### L 100.0100, L503.6620, L501.4020, L500.2500 ####[facility] [address] [place], [address] Platelets (Bld) [#/Vol] 187 10*3/uL Normal 150-450 [facility] Comment on above: Performed By: #### L 100.0100, L503.6620, L501.4020, L500.2500 ####[facility] [address] [place], [address] RBC (Bld) [#/Vol] 3.23 10*6/uL Low 4.6-6.2 [facility] Comment on above: Performed By: #### L 100.0100, L503.6620, L501.4020, L500.2500 ####[facility] [address] [place], [address] RDW SD 50.5 fl High 35.1-43.9 [facility] Comment on above: Performed By: #### L 100.0100, L503.6620, L501.4020, L500.2500 ####[facility] [address] [place], [address] WBC (Bld) [#/Vol] 11.3 10*3/uL High 4.4-11.0 [facility] Comment on above: Performed By: #### L 100.0100, L503.6620, L501.4020, L500.2500 ####[facility] [address] [place], [address] Chest PA and Lateralon 05-10 Chest PA and Lateral Normal [facility] Emergency Department Summary on 05-10-2024 Emergency Department Summary Normal [facility] H AND P Exam - Hospitaliston 05-10-2024 H&P Exam - Hospitalist Normal [facility] L501.4020on 05-10-2024 TROPONIN-I HS 21 pg/mL Normal 3.0-78.0 [facility] Comment on above: Order Comment: 'TROP ' Serial specimen #1, #2 or #3: 1 Result Comment: Plea se Note: New Test Units and Gender Specific Reference Ranges. For more information see Policy Stat Procedure Wrens High Sensitivity Troponin (TNIH) and attachments. Performed By: #### L 100.0100, L503.6620, L501.4020, L500.2500 ####[facility] [address] [place], [address] M100.678on 05-10-2024 M100.678 Pending SARS-CoV-2 (COVID 19) Negative INFLUENZA A Negative INFLUENZA B Negative RSV PCR Negative Normal [facility] Comment on above: Performed By: #### M 100.678 ####[facility] [address] [place], [address] Prothrombin Time w/INRon INR Coag (PPP) [Relative time] 2.0 {INR} Normal [facility] Comment on above: Performed By: #### L 300.3900 ####[facility] [address] [place], [address] PT Coag (PPP) [Time] 22.6 s High 11.7-14.9 [facility] Comment on above: Performed By: #### L 300.3900 ####[facility] [address] [place], [address] Prothrombin Time w/INRon INR Coag (PPP) [Relative time] 3.0 {INR} Normal [facility] Comment on above: Performed By: #### L 300.3900 ####[facility] [address] [place], [address] PT Coag (PPP) [Time] 31.0 s High 11.7-14.9 [facility] Comment on above: Performed By: #### L 300.3900 ####[facility] [address] [place], [address] Prothrombin Time w/INRon INR Coag (PPP) [Relative time] 7.0 {INR} Invalid Interpretation Code [facility] Comment on above: Order Comment: CRITI NICK VALUE CALLED TO FPLPEV32/07/24 Rolan Cuenca.RESULTS READ BACK BY SAME. Performed By: #### L 300.3900 ####[facility] [address] [place], [address] PT Coag (PPP) [Time] 59.5 s High 11.7-14.9 [facility] Comment on above: Order Comment: CRITI NICK VALUE CALLED TO LQPIKW04/07/24 Rolan Cuenca.RESULTS READ BACK BY SAME. Performed By: #### L 300.3900 ####[facility] [address] [place], [address] Pulmonary Visit Reporton Pulmonary Visit Report Normal [facility] Prothrombin Time w/INRon INR Coag (PPP) [Relative time] 4.3 {INR} Invalid Interpretation Code [facility] Comment on above: Order Comment: CRITI NICK VALUE CALLED TO MABEL GOMES04/28/24 1220 Amna Cuenca.RESULTS READ BACK BY SAME. Performed By: #### L 300.3900 ####[facility] [address] [place], [address] PT Coag (PPP) [Time] 40.9 s High 11.7-14.9 [facility] Comment on above: Order Comment: CRITI NICK VALUE CALLED TO MABEL GOMES04/28/24 1220 Amna Cuenca.RESULTS READ BACK BY SAME. Performed By: #### L 300.3900 ####[facility] [address] [place], [address] Prothrombin Time w/INRon INR Normal [facility] Comment on above: Result Comment: Canc elled via OM: Order cancelled - Patient discharged Performed By: #### L 300.3900 ####[facility] [address] [place], [address] PROTIME Normal 11.7-14.9 [facility] Comment on above: Result Comment: Canc elled via OM: Order cancelled - Patient discharged Performed By: #### L 300.3900 ####[facility] [address] [place], [address] 12 Lead EKG performed by [facility] on 04-24-2024 12 Lead EKG performed by [facility] Normal [facility] Cardiology Visit Reporton Cardiology Visit Report Normal [facility] Prothrombin Time w/INRon INR Normal [facility] Comment on above: Result Comment: Canc elled via OM: Order cancelled - Patient discharged Performed By: #### L 300.3900 ####[facility] [address] [place], [address] PROTIME Normal 11.7-14.9 [facility] Comment on above: Result Comment: Canc elled via OM: Order cancelled - Patient discharged Performed By: #### L 300.3900 ####[facility] [address] [place], [address] CBC panel Auto (Bld)on 12-05 Erythrocyte distribution width (RBC) [Ratio] 14.9 % 11.5 - 15.0 % [facility] Hematocrit (Bld) [Volume fraction] 45.4 % 39.0 - 51.0 % [facility] Hemoglobin (Bld) [Mass/Vol] 14.7 g/dL 13.0 - 17.0 g/dL [facility] Interpretation and review of laboratory results Normal [facility] MCH (RBC) [Entitic mass] 30.6 pg 26.0 - 34.0 pg [facility] MCHC (RBC) [Mass/Vol] 32.4 g/dL 30.5 - 36.0 g/dL [facility] MCV (RBC) [Entitic vol] 94.6 fL 80.0 - 100.0 fL [facility] Nucleated RBC (Bld) [#/Vol] NINF [facility] Platelet mean volume (Bld) [Entitic vol] 9.6 fL 9.0 - 12.7 fL [facility] Platelets (Bld) [#/Vol] 319 10*3/uL [facility] RBC (Bld) [#/Vol] 4.80 10*6/uL 4.20 - 6.0 0 m/uL [facility] WBC (Bld) [#/Vol] 8.82 10*3/uL [facility] Comprehensive metabolic 2000 panelon 12-06-2023 Albumin [Mass/Vol] 4.6 g/dL 3.9 - 4.9 g/dL [facility] ALP [Catalytic activity/Vol] 75 U/L 38 - 113 U/L [facility] ALT With P-5'-P [Catalytic activity/Vol] 12 U/L 10 - 54 U/L [facility] Anion gap [Moles/Vol] 13 mmol/L 9 - 18 mmol/L [facility] AST With P-5'-P [Catalytic activity/Vol] 18 U/L 14 - 40 U/L [facility] Bilirubin [Mass/Vol] 0.7 mg/dL 0.2 - 1 .3 mg/dL [facility] Calcium [Mass/Vol] 8.3 mg/dL Low 8.5 - 10. 2 mg/dL [facility] Chloride [Moles/Vol] 98 mmol/L 97 - 10 5 mmol/L [facility] CO2 [Moles/Vol] 23 mmol/L 22 - 30 mmol/L [facility] Creatinine [Mass/Vol] 1.00 mg/dL 0.73 - 1.22 mg/dL [facility] GFR/1.73 sq M.predicted among non-blacks MDRD (S/P/Bld) [Vol rate/Area] 82 mL/min/{1.73_m2} - PINF [facility] Comment on above: Estimated Glomerular Filtration Rate [...] [Mass/Vol] 94 mg/dL 74 - 99 mg/dL [facility] Comment on above: The [place] Diabete s Association (ADA) provides guidance for [...] Standards of Medical Care in Diabetes 2016, [place] Diabetes Association. Diabetes Care. 2016.39(Suppl 1). Potassium [Moles/Vol] 4.1 mmol/L 3.7 - 5.1 mmol/L [facility] Protein [Mass/Vol] 7.8 g/dL 6.3 - 8.0 g/dL [facility] Sodium [Moles/Vol] 134 mmol/L Low 136 - 144 mmol/L [facility] Urea nitrogen [Mass/Vol] 9 mg/dL 9 - 24 mg/dL [facility] ECG B/O W INTERP (MED OFFICE )on 12-06-2023 Sinus rhythm 72 bpm; moderately severe first-degree AV block (AL 352 ms); normal QRS duration 84 ms; QTc 503 ms, appropriate on dofetilide; criteria for septal infarct not new finding; compared with previous EKGs, first-degree AV block has progressed [facility] No Panel Informationon 12-05 Interpretation and review of laboratory results Abnormal [facility] PT panel Coag (PPP)on 2023 INR Coag (PPP) [Relative time] 2.0 {INR} High 0.9 - 1.3 [facility] Comment on above: Vitamin K Antagonist (VKA) Therapeutic Range: INR 2 to 3 (Target INR of 2.5) Note: For patients treated with VKA drugs, such as warfarin, the [place] [employer] 2012 Guideline recommends [...] GH, et al. Chest 2012, 141:7S-47S Aguilar RA, et al. [facility] 2017, 70: 252-289 Interpretation and review of laboratory results Abnormal [facility] PT Coag (PPP) [Time] 19.8 s [facility] THYROID STIMULATING HORMONEo n 12-06-2023 TSH Qn 2.690 m[IU]/L [facility] TSH Qnon 12-06-2023 Interpretation and review of laboratory results Normal [facility] Capillary blood internationa l normalized ratio (INR)Ordered By: Pablo Pichardo on 11-20-2023 INR Coag (BldC) [Relative time] 1.2 [facility] Comment on above: Critical Value > 4.0 Whole blood prothrombin time Ordered By: Pablo Pichardo on 11-20-2023 PT Coag (Bld) [Time] 13.4 s 11.7-14.9 [facility] Laboratory - CoagulationOrde red By: Dionna Self on 11-15-2023 INR Coag (Bld) [Relative time] 1.6 {INR} [facility] PT Coag (PPP) [Time] 19.2 s 11.7-14.9 [facility] Capillary blood internationa l normalized ratio (INR)Ordered By: Pablo Pichardo on 10-16-2023 INR Coag (BldC) [Relative time] 1.3 [facility] Comment on above: Critical Value > 4.0 Whole blood prothrombin time Ordered By: Pablo Pichardo on 10-16-2023 PT Coag (Bld) [Time] 14.3 s 11.7-14.9 [facility] Basophil percentageOrdered B y: Rodríguez Portillo on 10-15-2023 Bilirubin [Mass/Vol] 0.90 mg/dL 0.20-1.00 [facility] Comment on above: For patients on eltr ombopag therapy, use of Dimension Wrens TBIL is not recommended. Chloride [Moles/Vol] 101 mmol/L 98-107 [facility] Glucose [Mass/Vol] 84 mg/dL 74-106 [facility] Potassium [Moles/Vol] 3.6 mmol/L 3.5-5.1 [facility] Protein [Mass/Vol] 7.3 g/dL 6.4-8.2 [facility] Sodium [Moles/Vol] 133 mmol/L 136-145 [facility] Laboratory - Chemistry and C hemistry - challengeOrdered By: Rodríguez Portillo on 10-15-2023 Albumin/Globulin [Mass ratio] 0.9 {ratio} 0.9-2.4 [facility] ALP [Catalytic activity/Vol] 77 U/L 45-117 [facility] ALT [Catalytic activity/Vol] 19 U/L 16-61 [facility] CO2 [Moles/Vol] 25.0 mmol/L 21.0-32.0 [facility] Globulin (S) [Mass/Vol] 3.8 g/dL 2.2-4.2 [facility] Urea nitrogen/Creatinine [Mass ratio] 6.5 mg/mg 10-20 [facility] Laboratory - CoagulationOrde red By: Rodríguez Portillo on 10-15-2023 INR Coag (Bld) [Relative time] 1.1 {INR} [facility] PT Coag (PPP) [Time] 14.1 s 11.7-14.9 [facility] No Panel InformationOrdered By: Rodríguez Portillo on 10-15-2023 Estimated GFR (MDRD) Amer 105 mL/min >60 [facility] Comment on above: GFR Calc Estimated GFR (MDRD) Non-Af Amer 87 mL/min >60 [facility] Comment on above: Non- GFR Calc Vitamin D 25-Hydroxy 24.1 ng/mL [facility] Comment on above: Vitamin D 25(OH) Sta tus Range Deficiency <20 ng/mL (50nmol/L) Insufficiency 20 - 30 ng/mL (50 - 75 nmol/L) Sufficiency 30 - 100 ng/mL (75 - 250 nmol/L) Toxicity >100 ng/mL (>250 nmol/L) Serum or plasma calcium alfa urement (mass/volume)Ordered By: Rodríguez Portillo on 10-15-2023 Calcium [Mass/Vol] 8.9 mg/dL 8.5-10.1 [facility] Serum or plasma creatinine m easurement (mass/volume)Ordered By: Rodríguez Portillo on 10-15-2023 Creatinine [Mass/Vol] 0.92 mg/dL 0.70-1.30 [facility] Comment on above: The validity of the calculated GFR & GFRAA in patients over 70 years has not been determined. Clinical correlation is essential. Serum or plasma urea nitroge n measurement (mass/volume)Ordered By: Rodríguez Portillo on 10-15-2023 Urea nitrogen [Mass/Vol] 6 mg/dL 02-13 [facility] Thin prep Papanicolaou smear with manual screeningOrdered By: Rodríguez Portillo on 10-15-2023 Thin prep Papanicolaou smear with manual screening 3.5 g/dL 3.2-5.0 [facility] Thin prep Papanicolaou smear with manual screening 17 U/L 15-37 [facility] Thin prep Papanicolaou smear with manual screening 7 5-15 [facility] Laboratory - CoagulationOrde red By: Kunal Chang on 09-18-2023 INR Coag (Bld) [Relative time] 1.9 {INR} [facility] PT Coag (PPP) [Time] 21.5 s 11.7-14.9 [facility] Whole blood prothrombin time Ordered By: Pablo Pichardo on 09-18-2023 PT Coag (Bld) [Time] 20.9 s 11.7-14.9 [facility] Laboratory - CoagulationOrde red By: Franky Galloway on 08-29-2023 PT Coag (PPP) [Time] 29.5 s 11.7-14.9 [facility] Platelet poor plasma interna tional normalized ratio (INR)Ordered By: Franky Galloway on 08-29-2023 INR Coag (PPP) [Relative time] 2.8 {INR} [facility] Capillary blood internationa l normalized ratio (INR)Ordered By: Pablo Pichardo on 08-15-2023 INR Coag (BldC) [Relative time] 1.4 [facility] Comment on above: Critical Value > 4.0 Whole blood prothrombin time Ordered By: Pablo Pichardo on 08-15-2023 PT Coag (Bld) [Time] 15.6 s 11.7-14.9 [facility] INR in Blood by Coagulation assayOrdered By: Malcolm Lee on 08-07-2023 INR Coag (Bld) [Relative time] 3.1 {INR} [facility] Laboratory - CoagulationOrde red By: Malcolm Lee on 08-07-2023 PT Coag (PPP) [Time] 32.2 s 11.7-14.9 [facility] INR in Blood by Coagulation assayOrdered By: Franky Galloway on 07-24-2023 INR Coag (Bld) [Relative time] 2.2 {INR} [facility] Laboratory - CoagulationOrde red By: Franky Galloway on 07-24-2023 PT Coag (PPP) [Time] 25.1 s 11.7-14.9 [facility] Serum or plasma uric acid me asurement (mass/volume)Ordered By: Jahaira Cerna on 07-24-2023 Urate [Mass/Vol] 6.0 mg/dL 3.5-7.2 [facility] Comment on above: The drugs N-Acetylcy steine and Metamizole may falsely depress this assay. Whole blood hemoglobin A1c/t otal hemoglobin ratio (mass fraction)Ordered By: Jahaira Cerna on 07-24-2023 HbA1c (Bld) [Mass fraction] 5.0 % 3.8-5.6 [facility] Comment on above: Normal < 5.7 % Predi abetic 5.7 - 6.4 % Diabetic >or= 6.5 % Please note range changes. Glucose Glucometer (BldC) [M ass/Vol]Ordered By: Pablo Pichardo on 07-10-2023 Glucose [Mass/Vol] 80 mg/dL 74-106 [facility] Comment on above: MANAGEMENT OF PATIEN T CARE PER NURSING PROTOCOL INR in Blood by Coagulation assayOrdered By: Franky Galloway on 06-29-2023 INR Coag (Bld) [Relative time] 2.7 {INR} [facility] Laboratory - CoagulationOrde red By: Franky Galloway on 06-29-2023 PT Coag (PPP) [Time] 29.2 s 11.7-14.9 [facility] INR in Blood by Coagulation assayOrdered By: Franky Galloway on 05-29-2023 INR Coag (Bld) [Relative time] 2.4 {INR} [facility] Laboratory - CoagulationOrde red By: Franky Galloway on 05-29-2023 PT Coag (PPP) [Time] 26.0 s 11.7-14.9 [facility] Serum or plasma uric acid me asurement (mass/volume)Ordered By: Jahaira Cerna on 05-02-2023 Urate [Mass/Vol] 8.7 mg/dL 3.5-7.2 [facility] Comment on above: The drugs N-Acetylcy steine and Metamizole may falsely depress this assay. INR in Blood by Coagulation assayOrdered By: Franky Galloway on 04-17-2023 INR Coag (Bld) [Relative time] 1.9 {INR} [facility] Laboratory - CoagulationOrde red By: Franky Galloway on 04-17-2023 PT Coag (PPP) [Time] 22.2 s 11.7-14.9 [facility] INR in Blood by Coagulation assayOrdered By: Franky Galloway on 03-21-2023 INR Coag (Bld) [Relative time] 2.1 {INR} [facility] Laboratory - CoagulationOrde red By: Franky Galloway on 03-21-2023 PT Coag (PPP) [Time] 23.6 s 11.7-14.9 [facility] INR in Blood by Coagulation assayOrdered By: Franky Galloway on 02-20-2023 INR Coag (Bld) [Relative time] 2.0 {INR} [facility] Laboratory - CoagulationOrde red By: Franky Galloway on 02-20-2023 PT Coag (PPP) [Time] 22.5 s 11.7-14.9 [facility] INR in Blood by Coagulation assayOrdered By: Franky Galloway on 01-24-2023 INR Coag (Bld) [Relative time] 2.2 {INR} [facility] Laboratory - CoagulationOrde red By: Franky Galloway on 01-24-2023 PT Coag (PPP) [Time] 24.5 s 11.7-14.9 [facility] Absolute lymphocyte countOrd ered By: Dr. Daniel on 01-15-2023 Lymphocytes Auto (Unsp spec) [#/Vol] 1.87 10*3/uL 0.83-4.51 [facility] Basophil percentageOrdered B y: Dr. Daniel on 01-15-2023 Basophils/100 WBC (Bld) 1.2 % 0-1 [facility] Bilirubin [Mass/Vol] 0.40 mg/dL 0.20-1.00 [facility] Comment on above: For patients on eltr ombopag therapy, use of Dimension Wrens TBIL is not recommended. Chloride [Moles/Vol] 103 mmol/L 98-107 [facility] Eosinophils/100 WBC (Bld) 6.4 % 0-5 [facility] Glucose [Mass/Vol] 87 mg/dL 74-106 [facility] Neutrophils (Bld) [#/Vol] 4.4 10*3/uL 2.0-7.7 [facility] Neutrophils/100 WBC (Bld) 56.7 % 47-70 [facility] Potassium [Moles/Vol] 3.8 mmol/L 3.5-5.1 [facility] Protein [Mass/Vol] 7.7 g/dL 6.4-8.2 [facility] Sodium [Moles/Vol] 139 mmol/L 136-145 [facility] WBC (Bld) [#/Vol] 7.8 10*3/uL 4.4-11.0 [facility] Blood erythrocytes count (nu mber/volume)Ordered By: Dr. Daniel on 01-15-2023 RBC (Bld) [#/Vol] 4.72 10*6/uL 4.6-6.2 [facility] Blood hemoglobin measurement (mass/volume)Ordered By: Dr. Daniel on 01-15-2023 Hemoglobin (Bld) [Mass/Vol] 14.1 g/dL 13.0-16.5 [facility] Blood lymphocytes/100 leukoc ytesOrdered By: Dr. Daniel on 01-15-2023 Lymphocytes/100 WBC (Bld) 24.1 % 19-41 [facility] Blood monocytes/100 leukocyt esOrdered By: Dr. Daniel on 01-15-2023 Monocytes/100 WBC (Bld) 11.1 % 0-10 [facility] Blood platelet mean volumeOr dered By: Dr. Daniel on 01-15-2023 Platelet mean volume (Bld) [Entitic vol] 9.8 fL 6.2-12.0 [facility] Determination of erythrocyte mean corpuscular volume (MCV)Ordered By: Dr. Daniel on 01-15-2023 MCV (RBC) [Entitic vol] 91.3 fL 80-94 [facility] Hematocrit Auto (Bld) [Volum e fraction]Ordered By: Dr. Daniel on 01-15-2023 Hematocrit (Bld) [Volume fraction] 43.1 % 40-54 [facility] INR in Blood by Coagulation assayOrdered By: Dr. Daniel on 01-15-2023 INR Coag (Bld) [Relative time] 1.9 {INR} [facility] INR in Blood by Coagulation assayOrdered By: Franky Galloway on 01-15-2023 INR Coag (Bld) [Relative time] {INR} [facility] Comment on above: CRITICAL VALUE VERIF IED. CALLED TO DR COOPER01/15/23 [id number] Alexsandra Gonzalez.RESULTS READ BACK BY SAME . Laboratory - Chemistry and C hemistry - challengeOrdered By: Dr. Daniel on 01-15-2023 ALP [Catalytic activity/Vol] 59 U/L 45-117 [facility] ALT [Catalytic activity/Vol] 25 U/L 16-61 [facility] CO2 [Moles/Vol] 31.0 mmol/L 21.0-32.0 [facility] Globulin (S) [Mass/Vol] 4.1 g/dL 2.2-4.2 [facility] Urea nitrogen/Creatinine [Mass ratio] 10.5 mg/mg 10-20 [facility] Laboratory - CoagulationOrde red By: Dr. Daniel on 01-15-2023 PT Coag (PPP) [Time] 22.2 s 11.7-14.9 [facility] Laboratory - CoagulationOrde red By: Franky Galloway on 01-15-2023 PT Coag (PPP) [Time] s 11.7-14.9 [facility] Comment on above: CRITICAL VALUE VERIF IED. CALLED TO DR COOPER01/15/23 [id number] Alexsandra Gonzalez.RESULTS READ BACK BY SAME . Laboratory - Hematology and Cell countsOrdered By: Dr. Daniel on 01-15-2023 Erythrocyte distribution width (RBC) [Entitic vol] 46.4 fL 35.1-43.9 [facility] Erythrocyte distribution width (RBC) [Ratio] 13.9 % 11.6-14.6 [facility] Immature granulocytes/100 WBC (Bld) 0.500 % 0.0-0.9 [facility] Comment on above: IG% - Immature Granu locytes (promyelocytes, myelocytes and metamyelocytes) > 1% indicates that a LEFT SHIFT is Present. MCH (RBC) [Entitic mass] 29.9 pg 27.0-32.0 [facility] Nucleated RBC/100 WBC (Bld) [Ratio] 0 % 0-5 [facility] MCHC Auto (RBC) [Mass/Vol]Or dered By: Dr. Daniel on 01-15-2023 MCHC (RBC) [Mass/Vol] 32.7 g/dL 32-36 [facility] No Panel InformationOrdered By: Dr. Daniel on 01-15-2023 Estimated Creatinine Clearance Calc 58.79 ml/min [facility] Estimated GFR (MDRD) Amer 82 mL/min >60 [facility] Comment on above: GFR Calc Estimated GFR (MDRD) Non-Af Amer 68 mL/min >60 [facility] Comment on above: Non- GFR Calc Platelets bldOrdered By: Dr. Daniel on 01-15-2023 Platelets (Bld) [#/Vol] 285 10*3/uL 150-450 [facility] Serum or plasma albumin alfa urement (mass/volume)Ordered By: Dr. Daniel on 01-15-2023 Albumin [Mass/Vol] 3.6 g/dL 3.2-5.0 [facility] Serum or plasma albumin/glob ulin mass ratioOrdered By: Dr. Daniel on 01-15-2023 Albumin/Globulin [Mass ratio] 0.9 {ratio} 0.9-2.4 [facility] Serum or plasma calcium alfa urement (mass/volume)Ordered By: Dr. Daniel on 01-15-2023 Calcium [Mass/Vol] 8.8 mg/dL 8.5-10.1 [facility] Serum or plasma creatinine m easurement (mass/volume)Ordered By: Dr. Daniel on 01-15-2023 Creatinine [Mass/Vol] 1.14 mg/dL 0.70-1.30 [facility] Comment on above: The validity of the calculated GFR & GFRAA in patients over 70 years has not been determined. Clinical correlation is essential. Serum or plasma urea nitroge n measurement (mass/volume)Ordered By: Dr. Daniel on 01-15-2023 Urea nitrogen [Mass/Vol] 12 mg/dL 7-18 [facility] Thin prep Papanicolaou smear with manual screeningOrdered By: Dr. Daniel on 01-15-2023 Thin prep Papanicolaou smear with manual screening 22 U/L 15-37 [facility] Thin prep Papanicolaou smear with manual screening 5 5-15 [facility] INR in Blood by Coagulation assayOrdered By: Franky Galloway on 12-11-2022 INR Coag (Bld) [Relative time] 2.2 {INR} [facility] Laboratory - CoagulationOrde red By: Franky Galloway on 12-11-2022 PT Coag (PPP) [Time] 24.4 s 11.7-14.9 [facility] INR in Blood by Coagulation assayOrdered By: Dr. Portillo on 11-17-2022 INR Coag (Bld) [Relative time] 2.1 {INR} [facility] Laboratory - CoagulationOrde red By: Dr. Portillo on 11-17-2022 PT Coag (PPP) [Time] 23.2 s 11.7-14.9 [facility] Basophil percentageOrdered B y: Franky Galloway on 11-10-2022 Chloride [Moles/Vol] 108 mmol/L 98-107 [facility] Glucose [Mass/Vol] 81 mg/dL 74-106 [facility] Potassium [Moles/Vol] 4.4 mmol/L 3.5-5.1 [facility] Sodium [Moles/Vol] 137 mmol/L 136-145 [facility] Laboratory - Chemistry and C hemistry - challengeOrdered By: Franky Galloway on 11-10-2022 CO2 [Moles/Vol] 26.0 mmol/L 21.0-32.0 [facility] Urea nitrogen/Creatinine [Mass ratio] 15.4 mg/mg 10-20 [facility] No Panel InformationOrdered By: Franky Galloway on 11-10-2022 Estimated GFR (MDRD) Amer 75 mL/min >60 [facility] Comment on above: GFR Calc Estimated GFR (MDRD) Non-Af Amer 62 mL/min >60 [facility] Comment on above: Non- GFR Calc Serum or plasma calcium alfa urement (mass/volume)Ordered By: Franky Galloway on 11-10-2022 Calcium [Mass/Vol] 8.9 mg/dL 8.5-10.1 [facility] Serum or plasma creatinine m easurement (mass/volume)Ordered By: Franky Galloway on 11-10-2022 Creatinine [Mass/Vol] 1.23 mg/dL 0.70-1.30 [facility] Comment on above: The validity of the calculated GFR & GFRAA in patients over 70 years has not been determined. Clinical correlation is essential. Serum or plasma urea nitroge n measurement (mass/volume)Ordered By: Franky Galloway on 11-10-2022 Urea nitrogen [Mass/Vol] 19 mg/dL 7-18 [facility] Thin prep Papanicolaou smear with manual screeningOrdered By: Franky Galloway on 11-10-2022 Thin prep Papanicolaou smear with manual screening 3 5-15 [facility] Basophil percentageOrdered B y: Dr. Portillo on 10-31-2022 Bilirubin [Mass/Vol] 0.70 mg/dL 0.20-1.00 [facility] Comment on above: For patients on eltr ombopag therapy, use of Dimension Wrens TBIL is not recommended. Protein [Mass/Vol] 7.9 g/dL 6.4-8.2 [facility] Laboratory - Chemistry and C hemistry - challengeOrdered By: Dr. Portillo on 10-31-2022 ALP [Catalytic activity/Vol] 63 U/L 45-117 [facility] ALT [Catalytic activity/Vol] 20 U/L 16-61 [facility] Globulin (S) [Mass/Vol] 3.8 g/dL 2.2-4.2 [facility] No Panel InformationOrdered By: Dr. Portillo on 10-31-2022 Vitamin D 25-Hydroxy 35.8 ng/mL [facility] Comment on above: Vitamin D 25(OH) Sta tus Range Deficiency <20 ng/mL (50nmol/L) Insufficiency 20 - 30 ng/mL (50 - 75 nmol/L) Sufficiency 30 - 100 ng/mL (75 - 250 nmol/L) Toxicity >100 ng/mL (>250 nmol/L) Serum or plasma albumin alfa urement (mass/volume)Ordered By: Dr. Portillo on 10-31-2022 Albumin [Mass/Vol] 4.1 g/dL 3.2-5.0 [facility] Serum or plasma albumin/glob ulin mass ratioOrdered By: Dr. Portillo on 10-31-2022 Albumin/Globulin [Mass ratio] 1.1 {ratio} 0.9-2.4 [facility] Thin prep Papanicolaou smear with manual screeningOrdered By: Dr. Portillo on 10-31-2022 Thin prep Papanicolaou smear with manual screening 21 U/L 15-37 [facility] INR in Blood by Coagulation assayOrdered By: Dr. Portillo on 10-02-2022 INR Coag (Bld) [Relative time] 2.3 {INR} [facility] Laboratory - CoagulationOrde red By: Dr. Portillo on 10-02-2022 PT Coag (PPP) [Time] 25.3 s 11.7-14.9 [facility] INR in Blood by Coagulation assayOrdered By: Dr. Portillo on 09-04-2022 INR Coag (Bld) [Relative time] 2.3 {INR} [facility] Laboratory - CoagulationOrde red By: Dr. Portillo on 09-04-2022 PT Coag (PPP) [Time] 24.5 s 11.7-14.9 [facility] INR in Blood by Coagulation assayOrdered By: Dr. Portillo on 08-16-2022 INR Coag (Bld) [Relative time] 2.8 {INR} [facility] Laboratory - CoagulationOrde red By: Dr. Portillo on 08-16-2022 PT Coag (PPP) [Time] 29.1 s 11.7-14.9 [facility] Basophil percentageOrdered B y: Dr. Sierra on 2022 Chloride [Moles/Vol] 99 mmol/L 98-107 [facility] Glucose [Mass/Vol] 109 mg/dL 74-106 [facility] Comment on above: Fasting Glucose resu lt from 100 to 125 mg/dL suggests IMPAIRED HOMEOSTASIS per A.D.A. criteria. Potassium [Moles/Vol] 3.9 mmol/L 3.5-5.1 [facility] Sodium [Moles/Vol] 135 mmol/L 136-145 [facility] WBC (Bld) [#/Vol] 8.5 10*3/uL 4.4-11.0 [facility] Blood erythrocytes count (nu mber/volume)Ordered By: Dr. Sierra on 2022 RBC (Bld) [#/Vol] 5.35 10*6/uL 4.6-6.2 [facility] Blood hemoglobin measurement (mass/volume)Ordered By: Dr. Sierra on 2022 Hemoglobin (Bld) [Mass/Vol] 16.1 g/dL 13.0-16.5 [facility] Blood platelet mean volumeOr dered By: Dr. Sierra on 2022 Platelet mean volume (Bld) [Entitic vol] 9.7 fL 6.2-12.0 [facility] Determination of erythrocyte mean corpuscular volume (MCV)Ordered By: Dr. Sierra on 2022 MCV (RBC) [Entitic vol] 89.3 fL 80-94 [facility] Hematocrit Auto (Bld) [Volum e fraction]Ordered By: Dr. Sierra on 2022 Hematocrit (Bld) [Volume fraction] 47.8 % 40-54 [facility] INR in Blood by Coagulation assayOrdered By: Dr. Sierra on 2022 INR Coag (Bld) [Relative time] 1.9 {INR} [facility] Laboratory - Chemistry and C hemistry - challengeOrdered By: Dr. Sierra on 2022 CO2 [Moles/Vol] 32.0 mmol/L 21.0-32.0 [facility] Urea nitrogen/Creatinine [Mass ratio] 12.1 mg/mg 10-20 [facility] Laboratory - CoagulationOrde red By: Dr. Sierra on 2022 PT Coag (PPP) [Time] 21.7 s 11.7-14.9 [facility] Laboratory - Hematology and Cell countsOrdered By: Dr. Sierra on 2022 Erythrocyte distribution width (RBC) [Entitic vol] 49.5 fL 35.1-43.9 [facility] Erythrocyte distribution width (RBC) [Ratio] 15.1 % 11.6-14.6 [facility] MCH (RBC) [Entitic mass] 30.1 pg 27.0-32.0 [facility] MCHC Auto (RBC) [Mass/Vol]Or dered By: Dr. Sierra on 2022 MCHC (RBC) [Mass/Vol] 33.7 g/dL 32-36 [facility] No Panel InformationOrdered By: Dr. Sierra on 2022 Estimated Creatinine Clearance Calc 57.81 ml/min [facility] Estimated GFR (MDRD) Amer 75 mL/min >60 [facility] Comment on above: GFR Calc Estimated GFR (MDRD) Non-Af Amer 62 mL/min >60 [facility] Comment on above: Non- GFR Calc Platelets bldOrdered By: Dr. Sierra on 2022 Platelets (Bld) [#/Vol] 320 10*3/uL 150-450 [facility] Serum or plasma calcium alfa urement (mass/volume)Ordered By: Dr. Sierra on 2022 Calcium [Mass/Vol] 9.5 mg/dL 8.5-10.1 [facility] Serum or plasma creatinine m easurement (mass/volume)Ordered By: Dr. Sierra on 2022 Creatinine [Mass/Vol] 1.24 mg/dL 0.70-1.30 [facility] Comment on above: The validity of the calculated GFR & GFRAA in patients over 70 years has not been determined. Clinical correlation is essential. Serum or plasma urea nitroge n measurement (mass/volume)Ordered By: Dr. Sierra on 2022 Urea nitrogen [Mass/Vol] 15 mg/dL 7-18 [facility] Thin prep Papanicolaou smear with manual screeningOrdered By: Dr. Sierra on 2022 Thin prep Papanicolaou smear with manual screening 4 5-15 [facility] INR in Blood by Coagulation assayOrdered By: Dr. Portillo on 07-26-2022 INR Coag (Bld) [Relative time] 1.7 {INR} [facility] Laboratory - CoagulationOrde red By: Dr. Portillo on 07-26-2022 PT Coag (PPP) [Time] 19.9 s 11.7-14.9 [facility] INR in Blood by Coagulation assayOrdered By: Dr. Chang on 06-28-2022 INR Coag (Bld) [Relative time] 2.7 {INR} [facility] Laboratory - CoagulationOrde red By: Dr. Chang on 06-28-2022 PT Coag (PPP) [Time] 28.4 s 11.7-14.9 [facility] Whole blood prothrombin time Ordered By: Pablo Pichardo on 06-28-2022 PT Coag (Bld) [Time] 28.5 s 11.7-14.9 [facility] INR in Blood by Coagulation assayOrdered By: Dr. Portillo on 06-01-2022 INR Coag (Bld) [Relative time] 2.9 {INR} [facility] Laboratory - CoagulationOrde red By: Dr. Portillo on 06-01-2022 PT Coag (PPP) [Time] 29.7 s 11.7-14.9 [facility] INR in Blood by Coagulation assayon 05-12-2022 INR Coag (Bld) [Relative time] 2.0 {INR} [facility] Work Phone: Laboratory - Coagulationon 1 PT Coag (PPP) [Time] 22.7 s 11.7-14.9 [facility] Work Phone: INR in Blood by Coagulation assayon 04-25-2022 INR Coag (Bld) [Relative time] 3.1 {INR} [facility] Work Phone: Laboratory - Coagulationon 0 04-25-2022 PT Coag (PPP) [Time] 31.8 s 11.7-14.9 [facility] Work Phone: INR in Blood by Coagulation assayon 03-28-2022 INR Coag (Bld) [Relative time] 3.7 {INR} [facility] Work Phone: Laboratory - Coagulationon 0 03-28-2022 PT Coag (PPP) [Time] 36.3 s 11.7-14.9 [facility] Work Phone: INR in Blood by Coagulation assayon 01-31-2022 INR Coag (Bld) [Relative time] 2.0 {INR} [facility] Work Phone: Laboratory - Coagulationon 0 01-31-2022 PT Coag (PPP) [Time] 22.4 s 11.7-14.9 [facility] Work Phone: INR in Blood by Coagulation assayon 01-19-2022 INR Coag (Bld) [Relative time] 1.9 {INR} [facility] Work Phone: Laboratory - Coagulationon 0 01-19-2022 PT Coag (PPP) [Time] 21.0 s 11.7-14.9 [facility] Work Phone: INR in Blood by Coagulation assayon 12-19-2021 INR Coag (Bld) [Relative time] 2.0 {INR} [facility] Work Phone: Laboratory - Coagulationon 0 12-19-2021 PT Coag (PPP) [Time] 22.5 s 11.7-14.9 [facility] Work Phone: INR in Blood by Coagulation assayon 11-23-2021 INR Coag (Bld) [Relative time] 2.5 {INR} [facility] Work Phone: Laboratory - Coagulationon 0 11-23-2021 PT Coag (PPP) [Time] 26.6 s 11.7-14.9 [facility] Work Phone: INR in Blood by Coagulation assayon 10-25-2021 INR Coag (Bld) [Relative time] 2.7 {INR} [facility] Work Phone: Laboratory - Coagulationon 0 10-25-2021 PT Coag (PPP) [Time] 27.6 s 11.7-14.9 [facility] Work Phone: Basophil percentageon 2021 Bilirubin [Mass/Vol] 0.60 mg/dL 0.20-1.00 [facility] Work Phone: Comment on above: For patients on eltr ombopag therapy, use of Dimension Wrens TBIL is not recommended. Chloride [Moles/Vol] 101 mmol/L 98-107 [facility] Work Phone: Glucose [Mass/Vol] 89 mg/dL 74-106 [facility] Work Phone: Potassium [Moles/Vol] 3.7 mmol/L 3.5-5.1 [facility] Work Phone: Protein [Mass/Vol] 7.6 g/dL 6.4-8.2 [facility] Work Phone: Sodium [Moles/Vol] 135 mmol/L 136-145 [facility] Work Phone: Laboratory - Chemistry and C hemistry - challengeon 10-10-2021 ALP [Catalytic activity/Vol] 61 U/L 45-117 [facility] Work Phone: ALT [Catalytic activity/Vol] 33 U/L 16-61 [facility] Work Phone: CO2 [Moles/Vol] 30.0 mmol/L 21.0-32.0 [facility] Work Phone: Globulin (S) [Mass/Vol] 3.7 g/dL 2.2-4.2 [facility] Work Phone: Urea nitrogen/Creatinine [Mass ratio] 6.1 mg/mg 10-20 [facility] Work Phone: No Panel Informationon 10-10 Estimated GFR (MDRD) Amer 98 mL/min >60 [facility] Work Phone: Comment on above: GFR Calc Estimated GFR (MDRD) Non-Af Amer 81 mL/min >60 [facility] Work Phone: Comment on above: Non- GFR Calc Vitamin D 25-Hydroxy 36.2 ng/mL [facility] Work Phone: Comment on above: Vitamin D 25(OH) Sta tus Range Deficiency <20 ng/mL (50nmol/L) Insufficiency 20 - 30 ng/mL (50 - 75 nmol/L) Sufficiency 30 - 100 ng/mL (75 - 250 nmol/L) Toxicity >100 ng/mL (>250 nmol/L) Serum or plasma albumin alaf urement (mass/volume)on 10-10-2021 Albumin [Mass/Vol] 3.9 g/dL 3.2-5.0 [facility] Work Phone: Serum or plasma albumin/glob ulin mass ratioon 10-10-2021 Albumin/Globulin [Mass ratio] 1.1 {ratio} 0.9-2.4 [facility] Work Phone: Serum or plasma calcium alfa urement (mass/volume)on 10-10-2021 Calcium [Mass/Vol] 9.4 mg/dL 8.5-10.1 [facility] Work Phone: Serum or plasma creatinine m easurement (mass/volume)on 10-10-2021 Creatinine [Mass/Vol] 0.99 mg/dL 0.70-1.30 [facility] Work Phone: Comment on above: The validity of the calculated GFR & GFRAA in patients over 70 years has not been determined. Clinical correlation is essential. Serum or plasma urea nitroge n measurement (mass/volume)on 10-10-2021 Urea nitrogen [Mass/Vol] 6 mg/dL 7-18 [facility] Work Phone: Thin prep Papanicolaou smear with manual screeningon 10-10-2021 Thin prep Papanicolaou smear with manual screening 28 U/L 15-37 [facility] Work Phone: Thin prep Papanicolaou smear with manual screening 4 5-15 [facility] Work Phone: INR in Blood by Coagulation assayon 09-26-2021 INR Coag (Bld) [Relative time] 2.5 {INR} [facility] Work Phone: Laboratory - Coagulationon 0 09-26-2021 PT Coag (PPP) [Time] 26.2 s 11.7-14.9 [facility] Work Phone: INR in Blood by Coagulation assayon 08-02-2021 INR Coag (Bld) [Relative time] 2.5 {INR} [facility] Work Phone: Laboratory - Coagulationon 0 08-02-2021 PT Coag (PPP) [Time] 26.3 s 11.7-14.9 [facility] Work Phone: INR in Blood by Coagulation assayon 07-20-2021 INR Coag (Bld) [Relative time] 1.9 {INR} [facility] Work Phone: Laboratory - Coagulationon 09-20-2020 PT Coag (PPP) [Time] 20.9 s 11.7-14.9 [facility] Work Phone: CT CHEST W/O CONTRASTon 12-29 CT CHEST W/O CONTRAST Performed at [facility] APPROVED BY: JUNIOR TINAJERO MD EXAMINATION: [...] are again seen within the spine. Normal [facility] ECG B/O W INTERP (MED OFFICE ) [facility] Vital Signs Date Time Vital Sign Value Performing Clinician Facility 04-16-2025 11:17-0400 Body height 170.18 cm Adriel Khan MD Work Phone: [facility] 04-16-2025 11:17-0400 Body mass index (BMI) [Ratio] 26.3 kg/m2 Adriel Khan MD Work Phone: [facility] 04-16-2025 11:17-0400 Body weight 76.2 kg Adriel Khan MD Work Phone: [facility] 04-16-2025 11:17-0400 Diastolic blood pressure 79 mm[Hg] Adriel Khan MD Work Phone: [facility] 04-16-2025 11:17-0400 Heart rate 77 /min Adriel Khan MD Work Phone: [facility] 04-16-2025 11:17-0400 Respiratory rate 16 /min Adriel Khan MD Work Phone: [facility] 04-16-2025 11:17-0400 Systolic blood pressure 120 mm[Hg] Adriel Khan MD Work Phone: [facility] 04-08-2025 06:28-0400 Body mass index (BMI) [Ratio] 26.2 kg/m2 Adriel Khan MD Work Phone: [facility] 04-08-2025 06:28-0400 Body temperature 97.3 [degF] Adriel Khan MD Work Phone: [facility] 04-08-2025 06:28-0400 Body weight 75.74 kg Adriel Khan MD Work Phone: [facility] 04-08-2025 06:28-0400 Diastolic blood pressure 74 mm[Hg] Adriel Khan MD Work Phone: [facility] 04-08-2025 06:28-0400 Heart rate 67 /min Adriel Khan MD Work Phone: 1(066)411-[address] [place] [address] 04-08-2025 06:28-0400 Respiratory rate 20 /min Adriel Khan MD Work Phone: 5(699)944-047061 [address] 04-08-2025 06:28-0400 SaO2% (BldA) [Mass fraction] 97 % Adriel Khan MD Work Phone: 4(452)201-182243 [place] [address] 04-08-2025 06:28-0400 Systolic blood pressure 119 mm[Hg] Adriel Khan MD Work Phone: [facility] 03-04-2025 08:57-0400 Body height 170.[address] Neeraj Daugherty MD [facility] 03-04-2025 08:57-0400 Body mass index (BMI) [Ratio] 26.2 kg/m2 Dr. Neeraj Daugherty MD [facility] 03-04-2025 08:57-0400 Body weight 75.[address] Neeraj Daugherty MD [facility] 03-04-2025 08:57-0400 Diastolic blood pressure 78 mm[Hg] Dr. Neeraj Daugherty MD [facility] 03-04-2025 08:57-0400 Heart rate 77 /min Dr. Neeraj Daugherty MD [facility] 03-04-2025 08:57-0400 Respiratory rate 18 /min Dr. Neeraj Daugherty MD [facility] 03-04-2025 08:57-0400 Systolic blood pressure 122 mm[Hg] Dr. Neeraj Daugherty MD [facility] 01-20-2025 07:40-0400 Body mass index (BMI) [Ratio] 25.9 kg/m2 Dr. Neeraj Daugherty MD [facility] 01-20-2025 07:40-0400 Body temperature 97.3 [degF] Dr. Neeraj Daugherty MD [facility] 01-20-2025 07:40-0400 Body weight 75.[address] Neeraj Daugherty MD [facility] 01-20-2025 07:40-0400 Diastolic blood pressure 72 mm[Hg] Dr. Neeraj Daugherty MD [facility] 01-20-2025 07:40-0400 Heart rate 59 /min Dr. Neeraj Daugherty MD [facility] 01-20-2025 07:40-0400 Respiratory rate 16 /min Dr. Neeraj Daugherty MD [facility] 01-20-2025 07:40-0400 SaO2% (BldA) [Mass fraction] 98 % Dr. Neeraj Daugherty MD [facility] 01-20-2025 07:40-0400 Systolic blood pressure 112 mm[Hg] Dr. Neeraj Daugherty MD [facility] 12-30-2024 12:48-0400 Body temperature 97 [degF] Dr. Neeraj Daugherty MD [facility] 12-30-2024 12:48-0400 Diastolic blood pressure 89 mm[Hg] Dr. Neeraj Daugherty MD [facility] 12-30-2024 12:48-0400 Heart rate 79 /min Dr. Neeraj Daugherty MD [facility] 12-30-2024 12:48-0400 Respiratory rate 18 /min Dr. Neeraj Daugherty MD [facility] 12-30-2024 12:48-0400 SaO2% (BldA) [Mass fraction] 92 % Dr. Neeraj Daugherty MD [facility] 12-30-2024 12:48-0400 Systolic blood pressure 134 mm[Hg] Dr. Neeraj Daugherty MD [facility] 12-30-2024 11:20-0400 Body height 170.[address] Neeraj Daugherty MD [facility] 12-30-2024 11:20-0400 Body mass index (BMI) [Ratio] 25.9 kg/m2 Dr. Neeraj Daugherty MD [facility] 12-30-2024 11:20-0400 Body weight [address] Neeraj Daugherty MD [facility] 12-28-2024 21:34-0400 Body mass index (BMI) [Ratio] 24.1 kg/m2 Dr. Neeraj Daugherty MD [facility] 12-09-2024 11:24-0400 Body height 175.26 cm Adriel Khan MD Work Phone: [facility] 12-09-2024 11:24-0400 Body mass index (BMI) [Ratio] 25 kg/m2 Adriel Khan MD Work Phone: [facility] 12-09-2024 11:24-0400 Body weight 76.77 kg Adriel Khan MD Work Phone: [facility] 12-09-2024 06:18-0400 Body mass index (BMI) [Ratio] 24.7 kg/m2 Adriel Khan MD Work Phone: [facility] 12-09-2024 06:18-0400 Body weight 76.2 kg Adriel Khan MD Work Phone: [facility] 12-09-2024 06:18-0400 Diastolic blood pressure 78 mm[Hg] Adriel Khan MD Work Phone: [facility] 12-09-2024 06:18-0400 Heart rate 69 /min Adriel Khan MD Work Phone: [facility] 12-09-2024 06:18-0400 Respiratory rate 18 /min Adriel Khan MD Work Phone: [facility] 12-09-2024 06:18-0400 SaO2% (BldA) [Mass fraction] 94 % Adriel Khan MD Work Phone: [facility] 12-09-2024 06:18-0400 Systolic blood pressure 123 mm[Hg] Adriel Khan MD Work Phone: [facility] 12-04-2024 08:56-0400 Body height 170.2 cm Dwayne Wells MD Work Phone: [facility] 12-04-2024 08:56-0400 Body mass index (BMI) [Ratio] 25.53 kg/m2 Dwayne Wells MD Work Phone: [facility] 12-04-2024 08:56-0400 Body weight 73.94 kg Dwayne Wells MD Work Phone: [facility] 12-04-2024 08:56-0400 Diastolic blood pressure 64 mm[Hg] Dwayne Wells MD Work Phone: [facility] Comment on above: (R) arm 12-04-2024 08:56-0400 Heart rate 64 /min Dwayne Wells MD Work Phone: [facility] 12-04-2024 08:56-0400 Respiratory rate 18 /min Dwayne Wells MD Work Phone: [facility] 12-04-2024 08:56-0400 SaO2% (BldA) [Mass fraction] 95 % Dwayne Wells MD Work Phone: [facility] 12-04-2024 08:56-0400 Systolic blood pressure 120 mm[Hg] Dwayne Wells MD Work Phone: [facility] Comment on above: (R) [facility] 11-27-2024 01:02-0400 Body mass index (BMI) [Ratio] 24.1 kg/m2 Adriel Khan MD Work Phone: [facility] 11-25-2024 20:39-0400 Body temperature 98.4 [degF] Adriel Khan MD Work Phone: [facility] 11-25-2024 20:39-0400 Diastolic blood pressure 91 mm[Hg] Adriel Khan MD Work Phone: [facility] 11-25-2024 20:39-0400 Heart rate 91 /min Adriel Khan MD Work Phone: [facility] 11-25-2024 20:39-0400 Respiratory rate 18 /min Adriel Khan MD Work Phone: [facility] 11-25-2024 20:39-0400 SaO2% (BldA) [Mass fraction] 95 % Adriel Khan MD Work Phone: [facility] 11-25-2024 20:39-0400 Systolic blood pressure 118 mm[Hg] Adriel Khan MD Work Phone: [facility] 11-25-2024 14:29-0400 Body height 175.26 cm Ardiel Khan MD Work Phone: 6(586)815-798243 [place] [address] 11-25-2024 14:29-0400 Body mass index (BMI) [Ratio] 24.7 kg/m2 Adriel Khan MD Work Phone: 8([phone])[phone] [place] [address] 11-25-2024 14:29-0400 Body weight 76.2 kg Adriel Khan MD Work Phone: [facility] 10-27-2024 23:40-0400 Body mass index (BMI) [Ratio] 24.1 kg/m2 Adriel Khan MD Work Phone: 5(709)026-106943 [place] [address] 10-15-2024 05:24-0400 Body mass index (BMI) [Ratio] 23.3 kg/m2 Adriel Khan MD Work Phone: 6(273)618-985561 [address] 10-15-2024 05:24-0400 Body temperature 97.2 [degF] Adriel Khan MD Work Phone: [facility] 10-15-2024 05:24-0400 Body weight 71.66 kg Adriel Khan MD Work Phone: 3(733)227-526343 [place] [address] 10-15-2024 05:24-0400 Diastolic blood pressure 70 mm[Hg] Adriel Khan MD Work Phone: [facility] 10-15-2024 05:24-0400 Heart rate 73 /min Adriel Khan MD Work Phone: [facility] 10-15-2024 05:24-0400 Respiratory rate 20 /min Adriel Khan MD Work Phone: [facility] 10-15-2024 05:24-0400 SaO2% (BldA) [Mass fraction] 98 % Adriel Khan MD Work Phone: [facility] 10-15-2024 05:24-0400 Systolic blood pressure 108 mm[Hg] Adriel Khan MD Work Phone: [facility] 09-27-2024 08:25-0500 Body mass index (BMI) [Ratio] 24.1 kg/m2 Adriel Khan MD Work Phone: [facility] 08-30-2024 02:46-0500 Body mass index (BMI) [Ratio] 24.1 kg/m2 Adriel Khan MD Work Phone: [facility] 08-18-2024 14:12-0500 Body height 175.26 cm Adriel Khan MD Work Phone: [facility] 08-18-2024 14:12-0500 Body mass index (BMI) [Ratio] 23.6 kg/m2 Adriel Khan MD Work Phone: [facility] 08-18-2024 14:12-0500 Body weight 72.57 kg Adriel Khan MD Work Phone: [facility] 08-18-2024 14:12-0500 Diastolic blood pressure 75 mm[Hg] Adriel Khan MD Work Phone: [facility] 08-18-2024 14:12-0500 Heart rate 71 /min Adriel Khan MD Work Phone: [facility] 08-18-2024 14:12-0500 Respiratory rate 18 /min Adriel Khan MD Work Phone: [facility] 08-18-2024 14:12-0500 SaO2% (BldA) [Mass fraction] 96 % Adriel Khan MD Work Phone: [facility] 08-18-2024 14:12-0500 Systolic blood pressure 117 mm[Hg] Adriel Khan MD Work Phone: [facility] 07-30-2024 05:02-0500 Body mass index (BMI) [Ratio] 24.1 kg/m2 Adriel Khan MD Work Phone: [facility] 07-17-2024 11:20-0500 Diastolic blood pressure 68 mm[Hg] Adriel Khan MD Work Phone: [facility] 07-17-2024 11:20-0500 Heart rate 71 /min Adriel Khan MD Work Phone: [facility] 07-17-2024 11:20-0500 Respiratory rate 18 /min Adriel Khan MD Work Phone: [facility] 07-17-2024 11:20-0500 SaO2% (BldA) [Mass fraction] 97 % Adriel Khan MD Work Phone: 5(681)341-865243 [place] [address] 07-17-2024 11:20-0500 Systolic blood pressure 95 mm[Hg] Adriel Khan MD Work Phone: 9(620)[phone] [address] 07-17-2024 11:04-0500 Body temperature 97.2 [degF] Adriel Khan MD Work Phone: [facility] 07-17-2024 09:19-0500 Body mass index (BMI) [Ratio] 22.6 kg/m2 Adriel Khan MD Work Phone: [facility] 07-17-2024 09:19-0500 Body weight 69.5 kg Adriel Khan MD Work Phone: [facility] 07-16-2024 07:54-0500 Body mass index (BMI) [Ratio] 22.4 kg/m2 Adriel Khan MD Work Phone: [facility] 07-16-2024 07:54-0500 Body temperature 97.6 [degF] Adriel Khan MD Work Phone: [facility] 07-16-2024 07:54-0500 Body weight 68.94 kg Adriel Khan MD Work Phone: [facility] 07-16-2024 07:54-0500 Diastolic blood pressure 67 mm[Hg] Adriel Khan MD Work Phone: [facility] 07-16-2024 07:54-0500 Heart rate 65 /min Adriel Khan MD Work Phone: [facility] 07-16-2024 07:54-0500 Respiratory rate 18 /min Adriel Khan MD Work Phone: [facility] 07-16-2024 07:54-0500 SaO2% (BldA) [Mass fraction] 97 % Adriel Khan MD Work Phone: [facility] 07-16-2024 07:54-0500 Systolic blood pressure 107 mm[Hg] Adriel Khan MD Work Phone: [facility] 06-29-2024 03:12-0500 Body mass index (BMI) [Ratio] 24.1 kg/m2 Adriel Khan MD Work Phone: [facility] 12-06-2023 09:58-0400 Body height 170.2 cm Dwayne Wells MD Work Phone: [facility] 12-06-2023 09:58-0400 Body mass index (BMI) [Ratio] 25.37 kg/m2 Dwayne Wells MD Work Phone: [facility] 12-06-2023 09:58-0400 Body weight 73.48 kg Dwayne Wells MD Work Phone: [facility] 12-06-2023 09:58-0400 Diastolic blood pressure 64 mm[Hg] Dwayne Wells MD Work Phone: [facility] 12-06-2023 09:58-0400 Heart rate 74 /min Dwayne Wells MD Work Phone: [facility] 12-06-2023 09:58-0400 SaO2% (BldA) [Mass fraction] 97 % Dwayne Wells MD Work Phone: [facility] 12-06-2023 09:58-0400 Systolic blood pressure 97 mm[Hg] Dwayne Wells MD Work Phone: [facility] 11-30-2023 12:25-0400 Body height 175.26 cm DO Jahaira Eryn Work Phone: [facility] 11-30-2023 12:25-0400 Body mass index (BMI) [Ratio] 24.3 kg/m2 DO Jahaira Eryn Work Phone: [facility] 11-30-2023 12:25-0400 Body temperature 97.2 [degF] DO Jahaira Eryn Work Phone: [facility] 11-30-2023 12:25-0400 Body weight 74.84 kg DO Jahaira Eryn Work Phone: [facility] 11-30-2023 12:25-0400 Diastolic blood pressure 80 mm[Hg] DO Jahaira Eryn Work Phone: [facility] 11-30-2023 12:25-0400 Heart rate 94 /min DO Jahaira Eryn Work Phone: [facility] 11-30-2023 12:25-0400 Respiratory rate 16 /min DO Jahaira Eryn Work Phone: [facility] 11-30-2023 12:25-0400 SaO2% (BldA) [Mass fraction] 97 % DO Jahaira Eryn Work Phone: [facility] 11-30-2023 12:25-0400 Systolic blood pressure 108 mm[Hg] DO Jahaira Eryn Work Phone: [facility] 11-20-2023 12:55-0400 Body temperature 96.9 [degF] DO Jahaira Eryn Work Phone: [facility] 11-20-2023 12:55-0400 Diastolic blood pressure 69 mm[Hg] DO Jahaira Eryn Work Phone: [facility] 11-20-2023 12:55-0400 Heart rate 63 /min DO Jahaira Eryn Work Phone: [facility] 11-20-2023 12:55-0400 Respiratory rate 16 /min DO Jahaira Eryn Work Phone: [facility] 11-20-2023 12:55-0400 SaO2% (BldA) [Mass fraction] 95 % DO Jahaira Eryn Work Phone: [facility] 11-20-2023 12:55-0400 Systolic blood pressure 95 mm[Hg] DO Jahaira Eryn Work Phone: [facility] 11-20-2023 11:04-0400 Body height 175.26 cm DO Jahaira Eryn Work Phone: [facility] 11-20-2023 11:04-0400 Body mass index (BMI) [Ratio] 23.8 kg/m2 DO Jahaira Eryn Work Phone: [facility] 11-20-2023 11:04-0400 Body weight 73 kg DO Jahaira Eryn Work Phone: [facility] 10-28-2023 01:25-0400 Body mass index (BMI) [Ratio] 24.1 kg/m2 DO Jahaira Eryn Work Phone: [facility] 10-16-2023 15:59-0400 Body temperature 97.2 [degF] DO Jahaira Eryn Work Phone: [facility] 10-16-2023 15:59-0400 Diastolic blood pressure 72 mm[Hg] DO Jahaira Eryn Work Phone: [facility] 10-16-2023 15:59-0400 Heart rate 61 /min DO Jahaira Eryn Work Phone: [facility] 10-16-2023 15:59-0400 Respiratory rate 18 /min DO Jahaira Eryn Work Phone: [facility] 10-16-2023 15:59-0400 SaO2% (BldA) [Mass fraction] 96 % DO Jahaira Eryn Work Phone: [facility] 10-16-2023 15:59-0400 Systolic blood pressure 121 mm[Hg] DO Jahairaoliver Humphriesnger Work Phone: [facility] 10-16-2023 15:35-0400 Inhaled oxygen flow rate 2 L/min DO Jahaira Eryn Work Phone: [facility] 10-16-2023 12:16-0400 Body height 175.26 cm DO Jahaira Eryn Work Phone: [facility] 10-16-2023 12:16-0400 Body mass index (BMI) [Ratio] 24 kg/m2 DO Jahairaoliver Humphriesnger Work Phone: [facility] 10-16-2023 12:16-0400 Body weight 73.7 kg DO Jahaira Eryn Work Phone: [facility] 10-12-2023 10:03-0400 Body mass index (BMI) [Ratio] 24.7 kg/m2 DO Jahaira Eryn Work Phone: [facility] 10-12-2023 10:03-0400 Body temperature 98 [degF] DO Jahairaoliver Humphriesnger Work Phone: [facility] 10-12-2023 10:03-0400 Body weight 76.2 kg DO Jahaira Eryn Work Phone: [facility] 10-12-2023 10:03-0400 Diastolic blood pressure 66 mm[Hg] DO Jahaira Eryn Work Phone: [facility] 10-12-2023 10:03-0400 Heart rate 67 /min DO Jahaira Eryn Work Phone: [facility] 10-12-2023 10:03-0400 Respiratory rate 16 /min DO Jahaira Eryn Work Phone: [facility] 10-12-2023 10:03-0400 SaO2% (BldA) [Mass fraction] 96 % DO Jahaira Eryn Work Phone: [facility] 10-12-2023 10:03-0400 Systolic blood pressure 110 mm[Hg] DO Jahaira Eryn Work Phone: [facility] 09-18-2023 14:42-0500 Body temperature 96.9 [degF] DO Jahaira Eryn Work Phone: [facility] 09-18-2023 14:42-0500 Diastolic blood pressure 88 mm[Hg] DO Jahaira Eryn Work Phone: [facility] 09-18-2023 14:42-0500 Heart rate 53 /min DO Jahaira Eryn Work Phone: [facility] 09-18-2023 14:42-0500 Respiratory rate 16 /min DO Jahaira Eryn Work Phone: [facility] 09-18-2023 14:42-0500 SaO2% (BldA) [Mass fraction] 97 % DO Jahaira Eryn Work Phone: [facility] 09-18-2023 14:42-0500 Systolic blood pressure 139 mm[Hg] DO Jahaira Eryn Work Phone: [facility] 09-18-2023 12:52-0500 Body height 175.26 cm DO Jahaira Eryn Work Phone: [facility] 09-18-2023 12:52-0500 Body mass index (BMI) [Ratio] 25.2 kg/m2 DO Jahaira Eryn Work Phone: [facility] 09-18-2023 12:52-0500 Body weight 77.6 kg DO Jahaira Eryn Work Phone: [facility] 08-29-2023 23:32-0500 Body mass index (BMI) [Ratio] 24.1 kg/m2 DO Jahaira Eryn Work Phone: [facility] 08-15-2023 12:14-0500 Body temperature 97.8 [degF] DO Jahaira Eryn Work Phone: [facility] 08-15-2023 12:14-0500 Diastolic blood pressure 71 mm[Hg] DO Jahaira Eryn Work Phone: [facility] 08-15-2023 12:14-0500 Heart rate 52 /min DO Jahaira Eryn Work Phone: [facility] 08-15-2023 12:14-0500 Respiratory rate 16 /min DO Jahaira Eryn Work Phone: [facility] 08-15-2023 12:14-0500 SaO2% (BldA) [Mass fraction] 95 % DO Jahaira Eryn Work Phone: [facility] 08-15-2023 12:14-0500 Systolic blood pressure 105 mm[Hg] DO Jahaira Eryn Work Phone: [facility] 08-15-2023 09:59-0500 Body height 175.26 cm DO Jahaira Eryn Work Phone: [facility] 08-15-2023 09:59-0500 Body mass index (BMI) [Ratio] 25.7 kg/m2 DO Jahaira Eryn Work Phone: [facility] 08-15-2023 09:59-0500 Body weight 79 kg DO Jahaira Eryn Work Phone: [facility] 08-07-2023 07:38-0500 Body height 170.18 cm DO Jahaira Eryn Work Phone: [facility] 08-07-2023 07:38-0500 Body mass index (BMI) [Ratio] 27.7 kg/m2 DO Jahaira Eryn Work Phone: [facility] 08-07-2023 07:38-0500 Body temperature 97.1 [degF] DO Jahaira Eryn Work Phone: [facility] 08-07-2023 07:38-0500 Body weight 80.3 kg DO Jahaira Eryn Work Phone: [facility] 08-07-2023 07:38-0500 Diastolic blood pressure 96 mm[Hg] DO Jahaira Eryn Work Phone: [facility] 08-07-2023 07:38-0500 Heart rate 82 /min DO Jahaira Eryn Work Phone: [facility] 08-07-2023 07:38-0500 Respiratory rate 14 /min DO Jahaira Eryn Work Phone: [facility] 08-07-2023 07:38-0500 SaO2% (BldA) [Mass fraction] 99 % DO Jahaira Eryn Work Phone: [facility] 08-07-2023 07:38-0500 Systolic blood pressure 162 mm[Hg] DO Jahaira Eryn Work Phone: [facility] 07-29-2023 23:18-0500 Body mass index (BMI) [Ratio] 24.1 kg/m2 DO Jahaira Eryn Work Phone: [facility] 07-10-2023 13:40-0500 Body temperature 96.9 [degF] DO Jahaira Eryn Work Phone: [facility] 07-10-2023 13:40-0500 Diastolic blood pressure 73 mm[Hg] DO Jahaira Eryn Work Phone: [facility] 07-10-2023 13:40-0500 Heart rate 57 /min DO Jahaira Eryn Work Phone: [facility] 07-10-2023 13:40-0500 Respiratory rate 16 /min DO Jahaira Eryn Work Phone: [facility] 07-10-2023 13:40-0500 SaO2% (BldA) [Mass fraction] 99 % DO Jahaira Eryn Work Phone: [facility] 07-10-2023 13:40-0500 Systolic blood pressure 112 mm[Hg] DO Jahaira Eryn Work Phone: [facility] 07-10-2023 12:02-0500 Body height 175.26 cm DO Jahaira Eryn Work Phone: [facility] 07-10-2023 12:02-0500 Body mass index (BMI) [Ratio] 25.7 kg/m2 DO Jahaira Eryn Work Phone: [facility] 07-10-2023 12:02-0500 Body weight 79.2 kg DO Jahaira Eryn Work Phone: [facility] 06-18-2023 07:07-0500 Body mass index (BMI) [Ratio] 27.2 kg/m2 DO Jahaira Eryn Work Phone: [facility] 06-18-2023 07:07-0500 Body temperature 97.4 [degF] DO Jahaira Eryn Work Phone: [facility] 06-18-2023 07:07-0500 Body weight 78.92 kg DO Jahaira Eryn Work Phone: [facility] 06-18-2023 07:07-0500 Diastolic blood pressure 74 mm[Hg] DO Jahaira Eryn Work Phone: [facility] 06-18-2023 07:07-0500 Heart rate 70 /min DO Jahaira Eryn Work Phone: [facility] 06-18-2023 07:07-0500 Respiratory rate 16 /min DO Jahaira Eryn Work Phone: [facility] 06-18-2023 07:07-0500 SaO2% (BldA) [Mass fraction] 98 % DO Jahaira Eryn Work Phone: [facility] 06-18-2023 07:07-0500 Systolic blood pressure 115 mm[Hg] DO Jahaira Eryn Work Phone: [facility] 06-01-2023 12:28-0400 Body height 170.[address] [facility] 06-01-2023 12:28-0400 Body temperature 97 [degF] [facility] 06-01-2023 12:28-0400 Diastolic blood pressure 77 mm[Hg] [facility] 06-01-2023 12:28-0400 Heart rate 75 /min [facility] 06-01-2023 12:28-0400 Respiratory rate 16 /min [facility] 06-01-2023 12:28-0400 SaO2% (BldA) [Mass fraction] 94 % [facility] 06-01-2023 12:28-0400 Systolic blood pressure 134 mm[Hg] [facility] 05-29-2023 22:42-0400 Body mass index (BMI) [Ratio] 24.1 kg/m2 DO Jahaira Cerna Work Phone: [facility] 04-29-2023 04:20-0400 Body mass index (BMI) [Ratio] 24.1 kg/m2 [facility] 03-29-2023 23:27-0400 Body mass index (BMI) [Ratio] 24.1 kg/m2 Dr. Neeraj Daugherty [facility] 02-27-2023 01:09-0400 Body mass index (BMI) [Ratio] 24.1 kg/m2 Dr. Neeraj Daugherty Work Phone: [facility] 01-27-2023 01:20-0400 Body mass index (BMI) [Ratio] 24.1 kg/m2 Dr. Neeraj Daugherty Work Phone: [facility] 01-15-2023 22:12-0400 Diastolic blood pressure 88 mm[Hg] Dr. Neeraj Daugherty Work Phone: [facility] 01-15-2023 22:12-0400 Heart rate 70 /min Dr. Neeraj Daugherty Work Phone: [facility] 01-15-2023 22:12-0400 Respiratory rate 14 /min Dr. Neeraj Daugherty Work Phone: [facility] 01-15-2023 22:12-0400 SaO2% (BldA) [Mass fraction] 99 % Dr. Neeraj Daugherty Work Phone: [facility] 01-15-2023 22:12-0400 Systolic blood pressure 129 mm[Hg] Dr. Neeraj Daugherty Work Phone: [facility] 01-15-2023 18:22-0400 Body height 170.[address] Neeraj Daugherty Work Phone: [facility] 01-15-2023 18:22-0400 Body mass index (BMI) [Ratio] 27 kg/m2 Dr. Neeraj Daugherty Work Phone: [facility] 01-15-2023 18:22-0400 Body temperature 97.9 [degF] Dr. Neeraj Daugherty Work Phone: [facility] 01-15-2023 18:22-0400 Body weight 78.[address] Neeraj Daugherty Work Phone: [facility] 01-10-2023 08:49-0400 Body mass index (BMI) [Ratio] 26.4 kg/m2 Dr. Neeraj Daugherty Work Phone: [facility] 01-10-2023 08:49-0400 Body weight 76.[address] Neeraj Daugherty Work Phone: [facility] 01-10-2023 08:49-0400 Diastolic blood pressure 71 mm[Hg] Dr. Neeraj Daugherty Work Phone: [facility] 01-10-2023 08:49-0400 Heart rate 61 /min Dr. Neeraj Daugherty Work Phone: [facility] 01-10-2023 08:49-0400 Respiratory rate 18 /min Dr. Neeraj Daugherty Work Phone: [facility] 01-10-2023 08:49-0400 SaO2% (BldA) [Mass fraction] 98 % Dr. Neeraj Daugherty Work Phone: [facility] 01-10-2023 08:49-0400 Systolic blood pressure 108 mm[Hg] Dr. Neeraj Daugherty Work Phone: [facility] 01-10-2023 07:58-0400 Body mass index (BMI) [Ratio] 26.6 kg/m2 Dr. Neeraj Daugherty Work Phone: [facility] 01-10-2023 07:58-0400 Body weight 77.[address] Neeraj Daugherty Work Phone: [facility] 01-10-2023 07:58-0400 Diastolic blood pressure 81 mm[Hg] Dr. Neeraj Daugherty Work Phone: [facility] 01-10-2023 07:58-0400 Heart rate 64 /min Dr. Neeraj Daugherty Work Phone: [facility] 01-10-2023 07:58-0400 SaO2% (BldA) [Mass fraction] 96 % Dr. Neeraj Daugherty Work Phone: [facility] 01-10-2023 07:58-0400 Systolic blood pressure 125 mm[Hg] Dr. Neeraj Daugherty Work Phone: [facility] 12-28-2022 08:21-0400 Body mass index (BMI) [Ratio] 24.1 kg/m2 Dr. Neeraj Daugherty Work Phone: [facility] 12-14-2022 05:55-0400 Body height 170.[address] Neeraj Daugherty Work Phone: [facility] 12-14-2022 05:55-0400 Body mass index (BMI) [Ratio] 26.3 kg/m2 Dr. Neeraj Daugherty Work Phone: [facility] 12-14-2022 05:55-0400 Body temperature 97.3 [degF] Dr. Neeraj Daugherty Work Phone: [facility] 12-14-2022 05:55-0400 Body weight 76.[address] Neeraj Daugherty Work Phone: [facility] 12-14-2022 05:55-0400 Diastolic blood pressure 79 mm[Hg] Dr. Neeraj Daugherty Work Phone: [facility] 12-14-2022 05:55-0400 Heart rate 75 /min Dr. Neeraj Daugherty Work Phone: [facility] 12-14-2022 05:55-0400 Respiratory rate 18 /min Dr. Neeraj Daugherty Work Phone: [facility] 12-14-2022 05:55-0400 SaO2% (BldA) [Mass fraction] 97 % Dr. Neeraj Daugherty Work Phone: [facility] 12-14-2022 05:55-0400 Systolic blood pressure 129 mm[Hg] Dr. Neeraj Daugherty Work Phone: [facility] 12-05-2022 10:42-0400 Body height 170.2 cm Dwayne Wells MD Work Phone: [facility] 12-05-2022 10:42-0400 Body weight 76.66 kg Dwayne Wells MD Work Phone: [facility] 12-05-2022 10:42-0400 Diastolic blood pressure 83 mm[Hg] Dwayne Wells MD Work Phone: [facility] 12-05-2022 10:42-0400 Heart rate 73 /min Dwayne Wells MD Work Phone: [facility] 12-05-2022 10:42-0400 SaO2% (BldA) [Mass fraction] 95 % Dwayne Wells MD Work Phone: [facility] 12-05-2022 10:42-0400 Systolic blood pressure 125 mm[Hg] Dwayne Wells MD Work Phone: [facility] 11-30-2022 12:40-0400 Body height 170.[address] Neeraj Daugherty Work Phone: [facility] 11-30-2022 12:40-0400 Body mass index (BMI) [Ratio] 26.3 kg/m2 Dr. Neeraj Daugherty Work Phone: [facility] 11-30-2022 12:40-0400 Body temperature 97.1 [degF] Dr. Neeraj Daugherty Work Phone: [facility] 11-30-2022 12:40-0400 Body weight 76.[address] Neeraj Daugherty Work Phone: [facility] 11-30-2022 12:40-0400 Diastolic blood pressure 88 mm[Hg] Dr. Neeraj Daugherty Work Phone: [facility] 11-30-2022 12:40-0400 Heart rate 87 /min Dr. Neeraj Daugherty Work Phone: [facility] 11-30-2022 12:40-0400 Respiratory rate 17 /min Dr. Neeraj Daugherty Work Phone: [facility] 11-30-2022 12:40-0400 SaO2% (BldA) [Mass fraction] 96 % Dr. Neeraj Daugherty Work Phone: [facility] 11-30-2022 12:40-0400 Systolic blood pressure 122 mm[Hg] Dr. Neeraj Daugherty Work Phone: [facility] 11-26-2022 02:16-0400 Body mass index (BMI) [Ratio] 24.1 kg/m2 Dr. Neeraj Daugherty Work Phone: [facility] 11-15-2022 13:53-0400 Body height 170.[address] Neeraj Daugherty Work Phone: [facility] 11-15-2022 13:53-0400 Body mass index (BMI) [Ratio] 26.5 kg/m2 Dr. Neeraj Daugherty Work Phone: [facility] 11-15-2022 13:53-0400 Body weight 76.[address] Neeraj Daugherty Work Phone: [facility] 11-15-2022 13:53-0400 Diastolic blood pressure 77 mm[Hg] Dr. Neeraj Daugherty Work Phone: [facility] 11-15-2022 13:53-0400 Heart rate 90 /min Dr. Neeraj Daugherty Work Phone: [facility] 11-15-2022 13:53-0400 Respiratory rate 16 /min Dr. Neeraj Daugherty Work Phone: [facility] 11-15-2022 13:53-0400 SaO2% (BldA) [Mass fraction] 98 % Dr. Neeraj Daugherty Work Phone: [facility] 11-15-2022 13:53-0400 Systolic blood pressure 122 mm[Hg] Dr. Neeraj Daugherty Work Phone: [facility] 11-07-2022 08:18-0400 Body temperature 98 [degF] Dr. Neeraj Daugherty Work Phone: [facility] 11-07-2022 08:18-0400 Diastolic blood pressure 70 mm[Hg] Dr. Neeraj Daugherty Work Phone: [facility] 11-07-2022 08:18-0400 Heart rate 82 /min Dr. Neeraj Daugherty Work Phone: [facility] 11-07-2022 08:18-0400 Respiratory rate 14 /min Dr. Neeraj Daugherty Work Phone: [facility] 11-07-2022 08:18-0400 SaO2% (BldA) [Mass fraction] 98 % Dr. Neeraj Daugherty Work Phone: [facility] 11-07-2022 08:18-0400 Systolic blood pressure 130 mm[Hg] Dr. Neeraj Daugherty Work Phone: [facility] 10-28-2022 00:05-0400 Body mass index (BMI) [Ratio] 24.1 kg/m2 Dr. Neeraj Daugherty Work Phone: [facility] 10-12-2022 10:10-0400 Body height 175.[address] Neeraj Daugherty Work Phone: [facility] 10-12-2022 10:10-0400 Body mass index (BMI) [Ratio] 24.7 kg/m2 Dr. Neeraj Daugherty Work Phone: [facility] 10-12-2022 10:10-0400 Body temperature 95.2 [degF] Dr. Neeraj Daugherty Work Phone: [facility] 10-12-2022 10:10-0400 Body weight 76.[address] Neeraj Daugherty Work Phone: [facility] 10-12-2022 10:10-0400 Diastolic blood pressure 78 mm[Hg] Dr. Neeraj Daugherty Work Phone: [facility] 10-12-2022 10:10-0400 Heart rate 71 /min Dr. Neeraj Daugherty Work Phone: [facility] 10-12-2022 10:10-0400 Respiratory rate 20 /min Dr. Neeraj Daugherty Work Phone: [facility] 10-12-2022 10:10-0400 SaO2% (BldA) [Mass fraction] 95 % Dr. Neeraj Daugherty Work Phone: [facility] 10-12-2022 10:10-0400 Systolic blood pressure 116 mm[Hg] Dr. Neeraj Daugherty Work Phone: [facility] 09-26-2022 22:47-0500 Body mass index (BMI) [Ratio] 24.1 kg/m2 Dr. Neeraj Daugherty Work Phone: [facility] 08-30-2022 08:29-0500 Body mass index (BMI) [Ratio] 24.1 kg/m2 Dr. Neeraj Daugherty Work Phone: [facility] 08-04-2022 10:41-0500 Body height 175.[address] Neeraj Daugherty Work Phone: [facility] 08-04-2022 10:41-0500 Body mass index (BMI) [Ratio] 24.2 kg/m2 Dr. Neeraj Daugherty Work Phone: [facility] 2022 22:28-0500 Heart rate 89 /min Dr. Neeraj Daugherty Work Phone: 3(509)478-847664 [place] [address] 2022 22:28-0500 Respiratory rate 15 /min Dr. Neeraj Daugherty Work Phone: [facility] 2022 22:28-0500 SaO2% (BldA) [Mass fraction] 97 % Dr. Neeraj Daugherty Work Phone: 8(824)[phone] [place] [address] 2022 22:00-0500 Diastolic blood pressure 97 mm[Hg] Dr. Neeraj Daugherty Work Phone: 9(998)786-524564 [place] [address] 2022 22:00-0500 Systolic blood pressure 118 mm[Hg] Dr. Neeraj Daugherty Work Phone: 1(136)038-085964 [place] [address] 2022 18:14-0500 Body height 175.[address] Neeraj Daugherty Work Phone: 3(479)[phone] [place] [address] Work Phone: 2022 18:14-0500 Body mass index (BMI) [Ratio] 24.3 kg/m2 Dr. Neeraj Daugherty Work Phone: 2(983)240-170064 [place] [address] 2022 18:14-0500 Body temperature 98.6 [degF] Dr. Neeraj Daugherty Work Phone: 6(986)182-544064 [place] [address] 2022 18:14-0500 Body weight 74.[address] Neeraj Daugherty Work Phone: [facility] 07-30-2022 05:23-0500 Body mass index (BMI) [Ratio] 24.1 kg/m2 Dr. Neeraj Daugherty Work Phone: 7(066)776-547364 [place] [address] 07-12-2022 07:53-0500 Body mass index (BMI) [Ratio] 23.6 kg/m2 Dr. Neeraj Daugherty Work Phone: 9(718)086-905764 [place] [address] 07-12-2022 07:53-0500 Body weight 72.[address] Neeraj Daugherty Work Phone: [facility] 07-12-2022 07:53-0500 Diastolic blood pressure 80 mm[Hg] Dr. Neeraj Daugherty Work Phone: [facility] 07-12-2022 07:53-0500 Heart rate 71 /min Dr. Neeraj Daugherty Work Phone: [facility] 07-12-2022 07:53-0500 SaO2% (BldA) [Mass fraction] 96 % Dr. Neeraj Daugherty Work Phone: [facility] 07-12-2022 07:53-0500 Systolic blood pressure 130 mm[Hg] Dr. Neeraj Daugherty Work Phone: [facility] 06-29-2022 00:49-0500 Body mass index (BMI) [Ratio] 24.1 kg/m2 Dr. Neeraj Daugherty Work Phone: [facility] 06-28-2022 12:16-0500 Body temperature 97.5 [degF] Dr. Neeraj Daugherty Work Phone: [facility] 06-28-2022 12:16-0500 Diastolic blood pressure 74 mm[Hg] Dr. Neeraj Daugherty Work Phone: [facility] 06-28-2022 12:16-0500 Heart rate 83 /min Dr. Neeraj Daugherty Work Phone: [facility] 06-28-2022 12:16-0500 Respiratory rate 18 /min Dr. Neeraj Daugherty Work Phone: [facility] 06-28-2022 12:16-0500 SaO2% (BldA) [Mass fraction] 98 % Dr. Neeraj Daugherty Work Phone: [facility] 06-28-2022 12:16-0500 Systolic blood pressure 105 mm[Hg] Dr. Neeraj Daugherty Work Phone: [facility] 06-28-2022 10:47-0500 Body height 175.[address] Neeraj Daugherty Work Phone: [facility] Work Phone: 06-28-2022 10:47-0500 Body mass index (BMI) [Ratio] 23.8 kg/m2 Dr. Neeraj Daugherty Work Phone: [facility] 06-28-2022 10:47-0500 Body weight [address] Neeraj Daugherty Work Phone: [facility] 06-14-2022 11:11-0500 Body mass index (BMI) [Ratio] 25.2 kg/m2 Dr. Neeraj Daugherty Work Phone: [facility] 06-14-2022 11:11-0500 Body temperature 96.2 [degF] Dr. Neeraj Daugherty Work Phone: [facility] 06-14-2022 11:11-0500 Body weight 73.[address] Neeraj Daugherty Work Phone: [facility] 06-14-2022 11:11-0500 Diastolic blood pressure 74 mm[Hg] Dr. Neeraj Daugherty Work Phone: [facility] 06-14-2022 11:11-0500 Heart rate 62 /min Dr. Neeraj Daugherty Work Phone: [facility] 06-14-2022 11:11-0500 Respiratory rate 18 /min Dr. Neeraj Daugherty Work Phone: [facility] 06-14-2022 11:11-0500 SaO2% (BldA) [Mass fraction] 97 % Dr. Neeraj Daugherty Work Phone: [facility] 06-14-2022 11:11-0500 Systolic blood pressure 119 mm[Hg] Dr. Neeraj Daugherty Work Phone: [facility] 05-30-2022 10:14-0400 Body mass index (BMI) [Ratio] 24.1 kg/m2 Dr. Neeraj Daugherty Work Phone: [facility] 05-02-2022 08:26-0400 Body height 170.[address] Neeraj Daugherty Work Phone: [facility] Work Phone: 05-02-2022 08:26-0400 Body mass index (BMI) [Ratio] 26.2 kg/m2 Dr. Neeraj Daugherty Work Phone: [facility] Work Phone: 05-02-2022 08:26-0400 Body weight 75.[address] Neeraj Daugherty Work Phone: [facility] Work Phone: 05-02-2022 08:26-0400 Diastolic blood pressure 76 mm[Hg] Dr. Neeraj Daugherty Work Phone: [facility] Work Phone: 05-02-2022 08:26-0400 Heart rate 82 /min Dr. Neeraj Daugherty Work Phone: [facility] Work Phone: 05-02-2022 08:26-0400 SaO2% (BldA) [Mass fraction] 96 % Dr. Neeraj Daugherty Work Phone: [facility] Work Phone: 05-02-2022 08:26-0400 Systolic blood pressure 123 mm[Hg] Dr. Neeraj Daugherty Work Phone: [facility] Work Phone: 04-28-2022 23:28-0400 Body mass index (BMI) [Ratio] 24.1 kg/m2 Dr. Neeraj Daugherty Work Phone: [facility] Work Phone: 03-30-2022 00:20-0400 Body mass index (BMI) [Ratio] 24.1 kg/m2 Dr. Neeraj Daugherty Work Phone: [facility] Work Phone: 02-26-2022 03:00-0400 Body mass index (BMI) [Ratio] 24.1 kg/m2 Dr. Neeraj Daugherty Work Phone: [facility] Work Phone: 01-27-2022 07:43-0400 Body mass index (BMI) [Ratio] 24.1 kg/m2 Dr. Neeraj Daugherty Work Phone: [facility] Work Phone: 01-19-2022 08:22-0400 Body temperature 98 [degF] Dr. Neeraj Daugherty Work Phone: [facility] Work Phone: 01-19-2022 08:22-0400 Diastolic blood pressure 80 mm[Hg] Dr. Neeraj Daugherty Work Phone: [facility] Work Phone: 01-19-2022 08:22-0400 Heart rate 68 /min Dr. Neeraj Daugherty Work Phone: [facility] Work Phone: 01-19-2022 08:22-0400 Respiratory rate 16 /min Dr. Neeraj Daugherty Work Phone: [facility] Work Phone: 01-19-2022 08:22-0400 SaO2% (BldA) [Mass fraction] 99 % Dr. Neeraj Daugherty Work Phone: [facility] Work Phone: 01-19-2022 08:22-0400 Systolic blood pressure 140 mm[Hg] Dr. Neeraj Daugherty Work Phone: [facility] Work Phone: 12-27-2021 21:24-0400 Body mass index (BMI) [Ratio] 24.1 kg/m2 Dr. Neeraj Daugherty Work Phone: [facility] Work Phone: 11-27-2021 04:42-0400 Body mass index (BMI) [Ratio] 24.1 kg/m2 Dr. Neeraj Daugherty Work Phone: [facility] Work Phone: 11-03-2021 14:17-0400 Diastolic blood pressure 67 mm[Hg] Dr. Neeraj Daugherty Work Phone: [facility] Work Phone: 11-03-2021 14:17-0400 Heart rate 72 /min Dr. Neeraj Daugherty Work Phone: [facility] Work Phone: 11-03-2021 14:17-0400 Systolic blood pressure 122 mm[Hg] Dr. Neeraj Daugherty Work Phone: [facility] Work Phone: 11-03-2021 13:38-0400 Body height 170.[address] Neeraj Daugherty Work Phone: [facility] Work Phone: 11-03-2021 13:38-0400 Body mass index (BMI) [Ratio] 25.5 kg/m2 Dr. Neeraj Daugherty Work Phone: [facility] Work Phone: 11-03-2021 13:38-0400 Body temperature 96.9 [degF] Dr. Neeraj Daugherty Work Phone: [facility] Work Phone: 11-03-2021 13:38-0400 Body weight 73.[address] Neeraj Daugherty Work Phone: [facility] Work Phone: 11-03-2021 13:38-0400 Respiratory rate 14 /min Dr. Neeraj Daugherty Work Phone: [facility] Work Phone: 11-03-2021 13:38-0400 SaO2% (BldA) [Mass fraction] 98 % Dr. Neeraj Daugherty Work Phone: [facility] Work Phone: 10-28-2021 03:32-0400 Body mass index (BMI) [Ratio] 24.1 kg/m2 Dr. Neeraj Daugherty Work Phone: [facility] Work Phone: 10-27-2021 09:30-0400 Body mass index (BMI) [Ratio] 24.2 kg/m2 Dr. Neeraj Daugherty Work Phone: [facility] Work Phone: 10-27-2021 09:30-0400 Body weight 71.[address] Neeraj Daugherty Work Phone: [facility] Work Phone: 10-27-2021 09:30-0400 Diastolic blood pressure 72 mm[Hg] Dr. Neeraj Daugherty Work Phone: [facility] Work Phone: 10-27-2021 09:30-0400 Heart rate 71 /min Dr. Neeraj Daugherty Work Phone: [facility] Work Phone: 10-27-2021 09:30-0400 Respiratory rate 18 /min Dr. Neeraj Daugherty Work Phone: [facility] Work Phone: 10-27-2021 09:30-0400 Systolic blood pressure 109 mm[Hg] Dr. Neeraj Daugherty Work Phone: [facility] Work Phone: 10-27-2021 09:30-0400 Body height 171.[address] Neeraj Daugherty Work Phone: [facility] Work Phone: 10-27-2021 09:30-0400 Body mass index (BMI) [Ratio] 24.2 kg/m2 Dr. Neeraj Daugherty Work Phone: [facility] Work Phone: 10-27-2021 09:30-0400 Body weight 71.[address] Neeraj Daugherty Work Phone: [facility] Work Phone: 10-27-2021 09:30-0400 Diastolic blood pressure 72 mm[Hg] Dr. Neeraj Daugherty Work Phone: [facility] Work Phone: 10-27-2021 09:30-0400 Heart rate 71 /min Dr. Neeraj Daugherty Work Phone: [facility] Work Phone: 10-27-2021 09:30-0400 Respiratory rate 18 /min Dr. Neeraj Daugherty Work Phone: [facility] Work Phone: 10-27-2021 09:30-0400 Systolic blood pressure 109 mm[Hg] Dr. Neeraj Daugherty Work Phone: [facility] Work Phone: 10-11-2021 10:39-0400 Body mass index (BMI) [Ratio] 24.8 kg/m2 Dr. Neeraj Daugherty Work Phone: [facility] Work Phone: 10-11-2021 10:39-0400 Body temperature 97.2 [degF] Dr. Neeraj Daugherty Work Phone: [facility] Work Phone: 10-11-2021 10:39-0400 Body weight 73.[address] Neeraj Daugherty Work Phone: [facility] Work Phone: 10-11-2021 10:39-0400 Diastolic blood pressure 80 mm[Hg] Dr. Neeraj Daugherty Work Phone: [facility] Work Phone: 10-11-2021 10:39-0400 Heart rate 64 /min Dr. Neeraj Daugherty Work Phone: [facility] Work Phone: 10-11-2021 10:39-0400 Respiratory rate 16 /min Dr. Neeraj Daugherty Work Phone: [facility] Work Phone: 10-11-2021 10:39-0400 SaO2% (BldA) [Mass fraction] 98 % Dr. Neeraj Daugherty Work Phone: [facility] Work Phone: 10-11-2021 10:39-0400 Systolic blood pressure 131 mm[Hg] Dr. Neeraj Daugherty Work Phone: [facility] Work Phone: 10-11-2021 10:39-0400 Body mass index (BMI) [Ratio] 24.8 kg/m2 Dr. Neeraj Daugherty Work Phone: [facility] Work Phone: 10-11-2021 10:39-0400 Body temperature 97.2 [degF] Dr. Neeraj Daugherty Work Phone: [facility] Work Phone: 10-11-2021 10:39-0400 Body weight 73.[address] Neeraj Daugherty Work Phone: [facility] Work Phone: 10-11-2021 10:39-0400 Diastolic blood pressure 80 mm[Hg] Dr. Neeraj Daugherty Work Phone: [facility] Work Phone: 10-11-2021 10:39-0400 Heart rate 64 /min Dr. Neeraj Daugherty Work Phone: [facility] Work Phone: 10-11-2021 10:39-0400 Respiratory rate 16 /min Dr. Neeraj Daugherty Work Phone: [facility] Work Phone: 10-11-2021 10:39-0400 SaO2% (BldA) [Mass fraction] 98 % Dr. Neeraj Daugherty Work Phone: [facility] Work Phone: 10-11-2021 10:39-0400 Systolic blood pressure 131 mm[Hg] Dr. Neeraj Daugherty Work Phone: [facility] Work Phone: 10-10-2021 09:53-0400 Body mass index (BMI) [Ratio] 25.2 kg/m2 Dr. Neeraj Daugherty Work Phone: [facility] Work Phone: 10-10-2021 09:53-0400 Body temperature 96 [degF] Dr. Neeraj Daugherty Work Phone: [facility] Work Phone: 10-10-2021 09:53-0400 Body weight 74.[address] Neeraj Daugherty Work Phone: [facility] Work Phone: 10-10-2021 09:53-0400 Diastolic blood pressure 88 mm[Hg] Dr. Neeraj Daugherty Work Phone: [facility] Work Phone: 10-10-2021 09:53-0400 Heart rate 51 /min Dr. Neeraj Daugherty Work Phone: [facility] Work Phone: 10-10-2021 09:53-0400 Respiratory rate 18 /min Dr. Neeraj Daugherty Work Phone: [facility] Work Phone: 10-10-2021 09:53-0400 SaO2% (BldA) [Mass fraction] 98 % Dr. Neeraj Daugherty Work Phone: [facility] Work Phone: 10-10-2021 09:53-0400 Systolic blood pressure 124 mm[Hg] Dr. Neeraj Daugherty Work Phone: [facility] Work Phone: 10-10-2021 09:53-0400 Body mass index (BMI) [Ratio] 25.2 kg/m2 Dr. Neeraj Daugherty Work Phone: [facility] Work Phone: 10-10-2021 09:53-0400 Body temperature 96 [degF] Dr. Neeraj Daugherty Work Phone: [facility] Work Phone: 10-10-2021 09:53-0400 Body weight 74.[address] Neeraj Daugherty Work Phone: [facility] Work Phone: 10-10-2021 09:53-0400 Diastolic blood pressure 88 mm[Hg] Dr. Neeraj Daugherty Work Phone: [facility] Work Phone: 10-10-2021 09:53-0400 Heart rate 51 /min Dr. Neeraj Daugherty Work Phone: [facility] Work Phone: 10-10-2021 09:53-0400 Respiratory rate 18 /min Dr. Neeraj Daugherty Work Phone: [facility] Work Phone: 10-10-2021 09:53-0400 SaO2% (BldA) [Mass fraction] 98 % Dr. Neeraj Daugherty Work Phone: [facility] Work Phone: 10-10-2021 09:53-0400 Systolic blood pressure 124 mm[Hg] Dr. Neeraj Daugherty Work Phone: [facility] Work Phone: 09-27-2021 10:27-0500 Body mass index (BMI) [Ratio] 24.1 kg/m2 Dr. Neeraj Daugherty Work Phone: [facility] Work Phone: 09-27-2021 09:27-0500 Body mass index (BMI) [Ratio] 24.1 kg/m2 Dr. Neeraj Daugherty Work Phone: [facility] Work Phone: 09-15-2021 13:40-0500 Body mass index (BMI) [Ratio] 25 kg/m2 Dr. Neeraj Daugherty Work Phone: [facility] Work Phone: 09-15-2021 13:40-0500 Body temperature 96 [degF] Dr. Neeraj Daugherty Work Phone: [facility] Work Phone: 09-15-2021 13:40-0500 Body weight 72.[address] Neeraj Daugherty Work Phone: [facility] Work Phone: 09-15-2021 13:40-0500 Diastolic blood pressure 92 mm[Hg] Dr. Neeraj Daugherty Work Phone: [facility] Work Phone: 09-15-2021 13:40-0500 Heart rate 87 /min Dr. Neeraj Daugherty Work Phone: [facility] Work Phone: 09-15-2021 13:40-0500 Respiratory rate 16 /min Dr. Neeraj Daugherty Work Phone: [facility] Work Phone: 09-15-2021 13:40-0500 SaO2% (BldA) [Mass fraction] 92 % Dr. Neeraj Daugherty Work Phone: [facility] Work Phone: 09-15-2021 13:40-0500 Systolic blood pressure 146 mm[Hg] Dr. Neeraj Daugherty Work Phone: [facility] Work Phone: 08-30-2021 01:19-0500 Body mass index (BMI) [Ratio] 24.1 kg/m2 Dr. Neeraj Daugherty Work Phone: [facility] Work Phone: 08-01-2021 01:31-0500 Body mass index (BMI) [Ratio] 24.1 kg/m2 Dr. Neeraj Daugherty Work Phone: [facility] Work Phone: 07-04-2021 08:40-0500 Body mass index (BMI) [Ratio] 23.9 kg/m2 Dr. Neeraj Daugherty Work Phone: [facility] Work Phone: 07-04-2021 08:40-0500 Body temperature 97.4 [degF] Dr. Neeraj Daugherty Work Phone: [facility] Work Phone: 07-04-2021 08:40-0500 Body weight 73.[address] Neeraj Daugherty Work Phone: [facility] Work Phone: 07-04-2021 08:40-0500 Diastolic blood pressure 78 mm[Hg] Dr. Neeraj Daugherty Work Phone: [facility] Work Phone: 07-04-2021 08:40-0500 Heart rate 65 /min Dr. Neeraj Daugherty Work Phone: [facility] Work Phone: 07-04-2021 08:40-0500 Respiratory rate 16 /min Dr. Neeraj Daugherty Work Phone: [facility] Work Phone: 07-04-2021 08:40-0500 SaO2% (BldA) [Mass fraction] 96 % Dr. Neeraj Daugherty Work Phone: [facility] Work Phone: 07-04-2021 08:40-0500 Systolic blood pressure 122 mm[Hg] Dr. Neeraj Daugherty Work Phone: [facility] Work Phone: 06-29-2021 02:46-0500 Body mass index (BMI) [Ratio] 24.1 kg/m2 Dr. Neeraj Daugherty Work Phone: [facility] Work Phone: Encounters Encounter Date Encounter Type Care Provider Facility Start: 04-22-2025 ambulatory Adriel Khan Facility:[facility] Start: 04-16-2025 End: 04-16-2025 Patient encounter procedure Dionna CANTRELL -[facility] Work Phone: Start: 04-16-2025 End: 04-16-2025 ambulatory Adriel Khan MD Work Phone: -[facility] Start: 04-08-2025 End: 04-08-2025 Patient encounter procedure CHANGE PERSON Gladys Smith -[facility] Work Phone: Start: 04-08-2025 End: 04-08-2025 ambulatory Adriel Khan MD Work Phone: -[facility] Start: 03-18-2025 End: 03-18-2025 Discharged Recurring Franky Galloway [facility] Work Phone: Start: 03-18-2025 End: 03-18-2025 ambulatory Adriel Khan MD Work Phone: -[facility] Start: 03-04-2025 End: 03-04-2025 Patient encounter procedure Dionna CANTRELL -[facility] Work Phone: Start: 03-04-2025 End: 03-04-2025 Dionna CANTRELL -[facility] Work Phone: Start: 03-04-2025 End: 03-04-[address] Neeraj Daugherty MD -[facility] Start: 02-20-2025 End: 02-20-[address] [facility]er[facility] Start: 02-20-2025 End: 02-20-2025 Patient encounter procedure Jake Lieca CHANGE PERSON-C -Laboratory [place] [facility] Start: 02-20-2025 End: 02-20-2025 Jake Licea CHANGE PERSON-C -Laboratory [facility] Start: 02-20-2025 End: 02-20-2025 ambulatory Adriel Khan Facility:[facility] Start: 02-17-2025 End: 02-17-[address] Neeraj Daugherty MD -Laboratory [facility] Start: 02-17-2025 End: 02-17-[address] Adriel Khan MD -Laboratory [facility] Start: 02-17-2025 End: 02-17-2025 Dr. Adriel Khan MD -Laboratory [facility] Start: 02-16-2025 End: 02-26-[address] Neeraj Daugherty MD -Laboratory [place] Start: 02-16-2025 End: 02-26-2025 Discharged Recurring Franky Galloway CHANGE PERSON-C -Laboratory [facility] Work Phone: Start: 02-16-2025 End: 02-26-2025 Franky Galloway CHANGE PERSON-C -Laboratory [place] Work Phone: Start: 01-20-2025 End: 01-20-2025 Patient encounter procedure CHANGE PERSON Gladys Smith [facility] Pulmonary Medicine Work Phone: Start: 01-20-2025 End: 01-20-2025 CHANGE PERSON Gladys Smith [facility] Pulmona ry Medicine Work Phone: Start: 01-20-2025 End: 01-20-[address] Neeraj Daugherty MD [facility] Work Phone: Start: 01-16-2025 End: 01-16-[address] Neeraj Daugherty MD -Laboratory Start: 01-16-2025 End: 01-16-2025 Discharged Recurring Franky Galloway CHANGE PERSON-C -Laboratory Work Phone: Start: 01-16-2025 Registered Recurring Franky Galloway CHANGE PERSON- C -Laboratory Work Phone: Start: 01-16-2025 End: 01-16-2025 Franky Galloway CHANGE PERSON-C -Laboratory Work Phone: Start: 01-07-2025 Registered Recurring Franky Joshua Nilesh CHANGE PERSON- C -Laboratory Work Phone: Start: 01-02-2025 End: 01-02-[address] Neeraj Daugherty MD [facility] Work Phone: Start: 01-02-2025 End: 01-02-2025 Patient encounter procedure Angelita Macedo CHANGE PERSON-C -Cat Scan [facility] Work Phone: Start: 01-02-2025 End: 01-02-2025 Angelita Macedo CHANGE PERSON-C -Cat Scan [facility] Work Phone: Start: 01-02-2025 End: 01-02-2025 ambulatory Angelita Macedo NP Facility:[facility] Start: 12-30-2024 Non-patient / Non-visit Pablo Skelton nd DO -[facility] Start: 12-30-2024 End: 12-30-2024 Admission to same day surgery center Pablo Pichardo DO -Endoscopy Work Phone: Start: 12-30-2024 End: 12-30-2024 Pablo Friend DO -Endoscopy Work Phone: Start: 12-30-2024 End: 12-30-[address] Neeraj Daugherty MD [facility] Work Phone: Start: 12-29-2024 End: 12-29-[address] Lynn Medina MD -[facility] Work Phone: Start: 12-29-2024 End: 12-29-2024 Dr. Lynn Medina MD -[facility] Work Phone: Start: 12-29-2024 End: 12-29-[address] Neeraj Daugherty MD [facility] Work Phone: Start: 12-23-2024 Non-patient / Non-visit Dr. Jose Medina MD -[facility] Work Phone: Start: 12-23-2024 End: 12-23-[address] Neeraj Daugherty MD [facility] Work Phone: Start: 12-23-2024 End: 12-23-2024 Patient encounter procedure Lawson CANTRELL -Pulmonary Services/Neurology Work Phone: Start: 12-23-2024 End: 12-23-2024 Dr. Lynn Medina MD -[facility] Work Phone: Start: 12-23-2024 End: 12-23-2024 ambulatory Lawson Miller Facility:[facility] Start: 12-16-2024 End: 12-16-[address] Neeraj Daugherty MD [facility] Work Phone: Start: 12-16-2024 End: 12-16-2024 Discharged Recurring Franky Lewis Nilesh CHANGE PERSON-C -Laboratory [place] Work Phone: Start: 12-16-2024 Registered Recurring Franky Lewis Nilesh CHANGE PERSON- C -Laboratory [place] Work Phone: Start: 12-16-2024 End: 12-16-2024 Franky Lewis Nilesh CHANGE PERSON-C -Laboratory [place] Work Phone: Start: 12-15-2024 End: 01-07-2025 Telephone encounter Dwayne Wells MD Work Phone: [facility] Cardiology Marcin Comment on above: Consult Start: 12-09-2024 End: 12-09-[address] Rodríguez Portillo MD -[facility] Work Phone: Start: 12-09-2024 End: 12-09-2024 Dr. Rodríguez Portillo MD -[facility] Work Phone: Start: 12-09-2024 End: 12-09-2024 ambulatory Adriel Khan MD Work Phone: [facility] Work Phone: Start: 12-09-2024 End: 12-09-2024 Patient encounter procedure Lawson Miller MI -[facility] Work Phone: Start: 12-09-2024 End: 12-09-2024 Lawson CANTRELL -[facility] Work Phone: Start: 12-09-2024 End: 12-09-2024 ambulatory Adriel Khan MD Work Phone: 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 Gagandeep Arechiga DO -Emergency Department Work Phone: Start: 11-25-2024 End: 11-25-2024 Emergency department patient visit Dr. Gagandeep Arechiga DO -Emergency Department Work Phone: Start: 11-24-2024 End: 11-26-2024 Discharged Recurring Franky Galloway NP-C -Laboratory, [facility] Work Phone: Start: 11-24-2024 End: 11-26-2024 Franky Galloway CHANGE PERSON-C -Laboratory [place] Work Phone: Start: 11-24-2024 End: 11-26-2024 ambulatory [facility] Facility:[facility] Start: 10-15-2024 End: 10-15-2024 Patient encounter procedure NTAHAN Smith -[facility] Work Phone: Start: 10-15-2024 End: 10-15-2024 ambulatory Gladys Smith Facility:[facility] Start: 10-13-2024 End: 10-13-2024 ambulatory Adriel Khan MD Work Phone: [facility] Work Phone: Start: 10-13-2024 End: 10-13-2024 Discharged Recurring Franky Lewis Nilesh CHANGE PERSON-C -Laboratory, [place] Work Phone: Start: 09-17-2024 End: 09-26-2024 Discharged Recurring Franky Lewis Nilesh CHANGE PERSON-C -Laboratory, [place] Work Phone: Start: 09-17-2024 End: 09-26-2024 ambulatory [facility] Facility:[facility] Start: 08-26-2024 End: 08-26-2024 Patient encounter procedure Angelita Macedo CHANGE PERSON-C -Sleep Lab Work Phone: Start: 08-26-2024 End: 08-26-2024 ambulatory [facility] Facility:[facility] Start: 08-26-2024 End: 08-26-2024 Discharged Recurring Franky Lewis Nilesh CHANGE PERSON-C -Laboratory, [place] Work Phone: Start: 08-26-2024 End: 08-26-2024 ambulatory Angelita Macedo NP Facility:[facility] Start: 08-18-2024 End: 08-18-2024 Patient encounter procedure Dionna Self MI -[facility] Work Phone: Start: 08-18-2024 End: 08-18-2024 ambulatory Adriel Khan Facility:[facility] Start: 08-05-2024 End: 08-05-2024 Patient encounter procedure Angelita Macedo CHANGE PERSON-C -Sleep Lab Work Phone: Start: 08-05-2024 End: 08-05-2024 ambulatory Angelita Macedo NP Facility:[facility] Start: 07-17-2024 ambulatory Pablo Pichardo Facility :[facility] Start: 07-17-2024 Non-patient / Non-visit Pablo Skelton nd DO -[facility] Start: 07-17-2024 End: 07-17-2024 Admission to same day surgery center Pablo Pichardo DO -Endoscopy Work Phone: Start: 07-17-2024 End: 07-17-2024 ambulatory Chalon Glendy Facility:[facility] Start: 07-16-2024 End: 07-16-2024 Patient encounter procedure Angelita Macedo CHANGE PERSON-C -[facility] Work Phone: Start: 07-16-2024 End: 07-16-2024 ambulatory Chalon Glendy Facility:[facility] Start: 07-09-2024 End: 07-09-2024 ambulatory Chalon Glendy Facility:[facility] Start: 07-09-2024 End: 07-09-2024 Discharged Recurring Franky Galloway CHANGE PERSON-C -Laboratory, [facility] Work Phone: Start: 07-03-2024 ambulatory Chalon Glendy [facility] Start: 07-03-2024 Non-patient / Non-visit Dr. Feliz Of marguerite REIS -[facility] Work Phone: Start: 07-03-2024 End: 07-03-2024 Patient encounter procedure Dionna Self PA -Pulmonary Services/Neurology Work Phone: Start: 07-03-2024 End: 07-03-2024 ambulatory Chalon Glendy Facility:[facility] Start: 07-01-2024 End: 07-01-2024 Patient encounter procedure Pablo Pichardo DO -[facility] Work Phone: Start: 07-01-2024 End: 07-01-2024 ambulatory Chalon Glendy Facility:[facility] Start: 06-09-2024 ambulatory Chalon Glendy [facility] Start: 06-06-2024 End: 06-06-2024 ambulatory Chalon Glendy Facility:[facility] Start: 06-03-2024 End: 06-03-2024 ambulatory Chalon Glendy Facility:[facility] Start: 06-02-2024 End: 06-02-2024 ambulatory Chalon Glendy Facility:[facility] Start: 05-30-2024 ambulatory Chalon Glendy Facility:[facility] Start: 05-30-2024 End: 05-30-2024 ambulatory Chalon Glendy Facility:[facility] Start: 05-30-2024 End: 05-30-2024 ambulatory Chalon Glendy Facility:[facility] Start: 05-30-2024 End: 06-28-2024 ambulatory Chalon Glendy Facility:[facility] Start: 05-21-2024 End: 05-21-2024 Emergency department patient visit Isaias WoodsonAundrea Facility:[facility] Start: 05-15-2024 End: 05-15-2024 ambulatory Chalon Glendy Facility:[facility] Start: 05-10-2024 ambulatory Francisca Dobson [facility] Start: 05-10-2024 End: 05-16-2024 Evaluation and management of inpatient Francisca Dobson Facility:[facility] Start: 05-08-2024 End: 05-08-2024 ambulatory Rodríguez Portillo Facility:[facility] Start: 04-29-2024 End: 04-29-2024 ambulatory Adriel Glendy Facility:[facility] Start: 04-28-2024 End: 04-28-2024 Patient encounter procedure [facility] Provider [facility] Start: 04-28-2024 End: 04-28-2024 ambulatory Rodríguez Bandar Facility:[facility] Start: 04-24-2024 End: 04-24-2024 ambulatory Chalmarycarmen Glendy Facility:[facility] Start: 12-07-2023 Telephone encounter Dwayne Wells MD Work Phone: [facility] Cardiology Kirk Comment on above: Results Start: 12-06-2023 End: 12-06-2023 Patient encounter procedure Dwayne Wells MD Work Phone: [facility] Cardiology Kirk Comment on above: Persistent atrial fi brillation (HCC) (Primary Dx); Atrial flutter, unspecified type (HCC); 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; Encounter for monitoring dofetilide therapy; At risk for stroke; Anticoagulant long-term use; First degree atrioventricular block; Paroxysmal supraventricular tachycardia (HCC); Palpitations Start: 11-30-2023 End: 11-30-2023 ambulatory DO Jahaira Cerna Work Phone: [facility] Work Phone: Start: 11-30-2023 End: 11-30-2023 Patient encounter procedure DO Jahaira Hernandezer Work Phone: [facility]-Medical Out Work Phone: Start: 11-20-2023 Non-patient / Non-visit DO Edmundo Humphriesnger Work Phone: [facility] Start: 11-20-2023 End: 11-20-2023 Admission to same day surgery center DO Jahaira Humphriesnger Work Phone: [facility]-Endoscopy Work Phone: Start: 11-20-2023 End: 11-20-2023 ambulatory DO Jahaira Hernandezer Work Phone: [facility] Work Phone: Start: 11-15-2023 End: 11-27-2023 ambulatory DO Jahaira M Eryn Work Phone: [facility] Work Phone: Start: 11-15-2023 End: 11-27-2023 Discharged Recurring DO Jahaira Humphriesnger Work Phone: [facility]-Laboratory Work Phone: Start: 11-15-2023 Registered Recurring DO Maribel Humphriesnger Work Phone: [facility]-Laboratory Work Phone: Start: 10-16-2023 Non-patient / Non-visit DO Edmundo Humphriesnger Work Phone: [facility] Start: 10-16-2023 End: 10-16-2023 Admission to same day surgery center DO Jahaira Humphriesnger Work Phone: [facility]-Endoscopy Work Phone: Start: 10-16-2023 End: 10-16-2023 ambulatory DO Jahaira M Eryn Work Phone: [facility] Work Phone: Start: 10-15-2023 End: 10-28-2023 ambulatory DO Jahaira M Eryn Work Phone: [facility] Work Phone: Start: 10-15-2023 End: 10-28-2023 Discharged Recurring DO Jahaira Eryn Work Phone: [facility]-Laboratory Work Phone: Start: 10-15-2023 Registered Recurring DO Maribel n Eryn Work Phone: [facility]-Laboratory Work Phone: Start: 10-12-2023 End: 10-12-2023 Patient encounter procedure DO Jahaira Humphriesnger Work Phone: [facility] Endocrinology Work Phone: Start: 09-18-2023 Non-patient / Non-visit DO Edmundo manningn Eryn Work Phone: [facility] Start: 09-18-2023 End: 09-18-2023 Admission to same day surgery center DO Jahaira Eryn Work Phone: [facility]-Endoscopy Work Phone: Start: 09-18-2023 End: 09-18-2023 ambulatory DO Jahaira M Eryn Work Phone: [facility] Work Phone: Start: 08-29-2023 End: 08-29-2023 Discharged Recurring DO Jahaira Eryn Work Phone: [facility]-Laboratory Work Phone: Start: 08-15-2023 Non-patient / Non-visit DO Kri stin Eryn Work Phone: [facility] Start: 08-15-2023 End: 08-15-2023 Admission to same day surgery center DO Jahaira Eryn Work Phone: [facility]-Endoscopy Work Phone: Start: 08-15-2023 End: 08-15-2023 ambulatory DO Jahaira Cerna Work Phone: [facility] Work Phone: Start: 08-07-2023 End: 08-07-2023 Emergency department patient visit DO Jahaira Cerna Work Phone: [facility]-Emergency Department Work Phone: Start: 07-24-2023 End: 07-24-2023 Patient encounter procedure DO Jahaira Cerna Work Phone: [facility] Gastroenterology Work Phone: Start: 07-24-2023 End: 07-29-2023 ambulatory DO Jahaira Cerna Work Phone: [facility] Work Phone: Start: 07-24-2023 End: 07-29-2023 Discharged Recurring DO Jahaira Cerna Work Phone: [facility]-Laboratory Work Phone: Start: 07-10-2023 Non-patient / Non-visit DO Edmundo Cerna Work Phone: [facility] Start: 07-10-2023 End: 07-10-2023 Admission to same day surgery center DO Jahaira Cerna Work Phone: [facility]-Endoscopy Work Phone: Start: 07-10-2023 End: 07-10-2023 ambulatory DO Jahaira Cerna Work Phone: [facility] Work Phone: Start: 06-29-2023 Registered Recurring DO Maribel Cerna Work Phone: [facility]-Laboratory Work Phone: Start: 06-18-2023 End: 06-18-2023 Patient encounter procedure DO Jahaira Cerna [facility] Phone: [facility] [place] Work Phone: Start: 06-01-2023 End: 06-01-2023 ambulatory [facility] Work Phone: Start: 06-01-2023 End: 06-01-2023 Patient encounter procedure [facility]-Medical Out Work Phone: Start: 05-29-2023 End: 05-29-2023 ambulatory [facility] Work Phone: Start: 05-29-2023 End: 05-29-2023 [facility]charged [facility] Start: 05-02-2023 End: 05-02-2023 Patient encounter procedure [facility]-Laboratory, [place] Work Phone: Start: 04-17-2023 End: 04-17-[address] Neeraj Daugherty [facility] Work Phone: Start: 04-17-2023 End: 04-17-[address] [facility]augherty [facility] Start: 03-21-2023 End: 03-21-[address] Neeraj Daugherty Work Phone: [facility] Work Phone: Start: 03-21-2023 End: 03-21-[address] Neeraj Daugherty [facility] Phone[facility] Start: 02-20-2023 End: 02-26-[address] Neeraj Daugherty Work Phone: [facility] Work Phone: Start: 02-20-2023 End: 02-26-[address] Neeraj Daugherty Work Phone: [facility] Start: 01-24-2023 End: 01-24-[address] Neeraj Daugherty Work Phone: [facility] Work Phone: Start: 01-24-2023 End: 01-24-[address] Neeraj Daugherty Work Phone: [facility] Start: 01-18-2023 End: 01-18-[address] Neeraj Daugherty Work Phone: [facility] Work Phone: Start: 01-18-2023 End: 01-18-[address] Neeraj Daugherty Work Phone: [facility] Start: 01-15-2023 End: 01-15-2023 Emergency department patient visit Dr. Neeraj Daugherty Work Phone: [facility]-Emergency Department Start: 01-15-[address] Neeraj Daugherty Work Phone: [facility] Start: 01-10-2023 End: 01-10-[address] Neeraj Daugherty Work Phone: [facility] Start: 12-14-2022 End: 12-14-[address] Neeraj Daugherty Work Phone: [facility] Start: 12-11-2022 End: 12-11-[address] Neeraj Daugherty Work Phone: [facility] Work Phone: Start: 12-11-2022 End: 12-11-[address] Neeraj Daugherty Work Phone[facility] Start: 12-07-2022 End: 12-07-[address] Neeraj Daugherty Work Phone: [facility] Start: 12-05-2022 End: 12-05-2022 Patient encounter procedure Dwayne Wells MD Work Phone: [facility] Cardiology Marcin Comment on above: Persistent atrial fi brillation (HCC) (Primary Dx); Atrial flutter, unspecified type (HCC); Paroxysmal supraventricular tachycardia (HCC); Palpitations; halfway current use of antiarrhythmic drug; At risk for stroke; Anticoagulant long-term use Start: 11-30-2022 End: 11-30-[address] Neeraj Daugherty Work Phone: [facility] Work Phone: Start: 11-30-2022 End: 11-30-[address] Neeraj Daugherty Work Phone: [facility] Start: 11-28-2022 End: 11-28-[address] Neeraj Daugherty Work Phone: [facility] Start: 11-22-2022 End: 11-22-[address] Neeraj Daugherty Work Phone: [facility] Work Phone: Start: 11-22-2022 End: 11-22-[address] Neeraj Daugherty Work Phone: [facility]-Laboratory, Specimen Start: 11-22-2022 End: 11-22-[address] Neeraj Daugherty Work Phone: [facility] Start: 11-17-2022 End: 11-26-[address] Neeraj Daugherty Work Phone: [facility] Work Phone: Start: 11-17-2022 End: 11-26-[address] Neeraj Daugherty Work Phone: [facility]-Laboratory Start: 11-15-2022 End: 11-15-[address] Neeraj Daugherty Work Phone: [facility] Start: 11-07-2022 End: 11-07-[address] Neeraj Daugherty Work Phone: [facility] Start: 10-12-2022 End: 10-12-[address] Neeraj Daugherty Work Phone: [facility] Endocrinology Start: 10-02-2022 End: 10-27-[address] Neeraj Daugherty Work Phone: [facility] Work Phone: Start: 10-02-2022 End: 10-27-[address] Neeraj Daugherty Work Phone: [facility]-Laboratory Start: 09-04-2022 End: 09-04-[address] Neeraj Daugherty Work Phone: [facility] Work Phone: Start: 09-04-2022 End: 09-04-[address] Neeraj Daugherty [facility] Phone: [facility] Start: 08-16-2022 End: 08-16-[address] Neeraj Daugherty Work Phone: [facility] Start: 08-04-2022 End: 08-04-[address] Neeraj Daugherty Work Phone: [facility] Start: 2022 End: 2022 Emergency department patient visit Dr. Neeraj Daugherty Work Phone: [facility]Emergency Department Start: 07-26-2022 End: 07-26-[address] Neeraj Daugherty Work Phone: [facility]-Laboratory Start: 07-12-2022 End: 07-12-[address] Neeraj Daugherty Work Phone: [facility] Start: 06-28-2022 Non-patient / Non-visit Dr. Javier Daugherty Work Phone: [facility] Start: 06-28-2022 End: 06-28-2022 Admission to same day surgery center Dr. Neeraj Daugherty Work Phone: [facility]-Endoscopy Start: 06-28-2022 End: 06-28-[address] Neeraj Daugherty Work Phone: [facility] Work Phone: Start: 06-14-2022 End: 06-14-[address] Neeraj Daugherty Work Phone: [facility]-Pulmonary Medicine [facility] Start: 06-01-2022 End: 06-28-[address] Neeraj Daugherty Work Phone: [facility] Work Phone: Start: 06-01-2022 End: 06-28-[address] Neeraj Daugherty Work Phone: [facility] Start: 06-01-[address] Neeraj Daugherty Work Phone: [facility] Start: 05-15-2022 End: 05-15-[address] Neeraj Daugherty Work Phone: [facility] Work Phone: Start: 05-15-2022 End: 05-15-[address] Neeraj Daugherty Work Phone: [facility] Start: 05-12-2022 End: 05-12-[address] Neeraj Daugherty Work Phone: [facility] Work Phone: Start: 05-12-2022 End: 05-12-[address] Neeraj Daugherty Work Phone: [facility] Start: 05-12-[address] Neeraj Daugherty Work Phone: [facility] Start: 05-02-2022 End: 05-02-[address] Neeraj Daugherty Work Phone: [facility] Start: 04-25-2022 End: 04-25-[address] Neeraj Daugherty Work Phone: [facility] Work Phone: Start: 04-25-2022 End: 04-25-[address] Neer[facility] Daugherty [facility] Phone: [facility] Start: 03-28-2022 End: 03-28-[address] Neerja Daugherty Work Phone: [facility] Start: 01-31-2022 End: 02-26-[address] Neeraj Daugherty Work Phone: [facility] Start: 01-19-2022 End: 01-19-[address] Neeraj Daugherty Work Phone: [facility] Start: 01-19-2022 End: 01-19-[address] Neeraj Daugherty Work Phone: [facility] Start: 12-19-2021 End: 12-19-[address] Neeraj Daugherty Work Phone: [facility] Start: 11-23-2021 End: 11-23-[address] Neeraj Daugherty Work Phone: [facility] Start: 11-03-2021 End: 11-03-[address] Neeraj Daugherty Work Phone: [facility] [facility] Start: 10-27-2021 End: 10-27-[address] Neeraj Daugherty Work Phone: [facility] Start: 10-25-2021 End: 10-27-[address] Neeraj Daug[facility] Start: 10-17-2021 End: 10-17-[address] Neeraj Daugherty Work Phone: [facility] Start: 10-11-2021 End: 10-11-[address] Neeraj Daugherty [facility] Phone[facility] Start: 10-10-2021 End: 10-10-[address] Neeraj Daugherty Work Phone: [facility] Start: 09-26-2021 End: 09-26-[address] Neeraj Daugherty [facility] Phone[facility] Start: 09-15-2021 End: 09-15-[address] Neeraj Daugherty Work Phone: [facility] Start: 09-10-2021 End: 09-10-[address] Neeraj Daugherty Work Phone: [facility], [facility] Start: 08-02-2021 End: 08-29-[address] Neeraj Daugherty [facility] Phone[facility] Start: 07-20-2021 End: 07-30-[address] Neeraj Daugherty Work Phone[facility] Start: 07-04-2021 End: 07-04-[address] Neeraj Daugherty [facility] Start: 11-29-2020 End: 11-29-2020 Telephone encounter Dwayne Wells MD Work Phone: [facility] Card[facility] Marcin Comment on above: Appointment Start: 03-11-2020 End: 03-11-2020 Patient encounter procedure External Provider [facility] Start: 03-11-2020 Results Only External Provider Exter nal-Non[facility]F Procedures Date Procedure Procedure Detail Performing Clinician Start: 02-20-2025 Prostate specific antigen measurement Dr. Neeraj Daugherty MD Comment on above: This test was performed using the [employer] tPSA method. Measured values of a patient sample can vary depending on the testing procedure used. PSA values determined on patient samples by different testing procedures cannot be used interchangeably. If there is a change in PSA assays while monitoring therapy, sequential testing should be performed to confirm baseline values. Start: 02-17-2025 Mean corpuscular hemoglobin concentration determination Dr. Neeraj Daugherty MD Start: 02-17-2025 Platelet mean volume determination Dr. Jenny Daugherty MD Start: 02-16-2025 Calculation of international normalized ratio Dr. Neeraj Daugherty MD Start: 01-16-2025 Calculation of international normalized ratio Dr. Neeraj Daugherty MD Start: 01-02-[address] Neeraj Daugherty MD Start: 12-30-[address] Neeraj forte MD Start: 12-16-2024 Calculation of international normalized ratio Dr. Neeraj Daugherty MD Start: 12-16-2024 Vitamin D, 25-hydroxy measurement Dr. Javier Daugherty MD Comment on above: Vitamin D StatusDeficiency: <20 ng/mL (5 0nmol/L)Insufficiency: 20-30 ng/mL (50-75 nmol/L)Sufficiency: 30-100 ng/mL (75-250 nmol/L)Toxicity: >100 ng/mL (>250 nmol/L) Start: 12-09-2024 Evaluation of diagnostic study results Dr. Neeraj Daugherty MD Start: 12-04-2024 Ecg routine ecg w/least 12 lds w/i&r Dwayne Wells MD Work Phone: Start: 11-25-2024 Calculation of international normalized ratio Dr. Neeraj Daugherty MD Start: 11-25-2024 Plain chest X-ray Adriel Khan MD Work Phone: Start: 11-25-2024 Blood count smear mcrscp w/mnl difrntl wbc count Dr. Neeraj Daugherty MD Start: 11-25-2024 D-dimer assay, quantitative Adriel Khan MD Work Phone: Comment on above: NORMAL D-Dimer level (<0.50) indicates n o DVT or PE. Start: 11-25-2024 Estimated creatinine clearance Adriel powell MD Work Phone: Start: 11-25-2024 Mean corpuscular hemoglobin concentration determination Dr. Neeraj Daugherty MD Start: 11-25-2024 Nucleated red blood cell count procedure Dr. Neeraj Daughetry MD Start: 11-25-2024 Platelet mean volume determination Dr. Jenny Daugherty MD Start: 11-24-2024 Calculation of international normalized ratio Dr. Neeraj Daugherty MD Start: 12-06-2023 Ecg routine ecg w/least 12 lds w/i&r Dawyne Wells MD Work Phone: Start: 11-20-2023 Esophagogastroduodenoscopy [...] Cerna Work Phone: Start: 07-10-2023 Esophagogastroduodenoscopy DO Jahaira patton Work Phone: Start: 01-18-2023 Computed tomography of [...] RSV Vaccine (1 - 1-dose 75+ series) [facility] Start: 09-04-2028 Urine microalbumin profile [facility] Start: 12-05-2026 Diabetes Screening Diabetes Screenin g [facility] Start: 12-16-2025 End: 12-16-2025 Patient encounter procedure 12/16/2025 9:20 AM EDT Office Visit [facility] [address] [place] [address] Dwayne Wells MD [address] [phone] annual persistent afib srs [facility] Marcin Comment on above: annual persistent af ib srs Start: 12-04-2025 BP Controlled (<130/80) BP Controlle d (<130/80) [facility] Start: 04-16-2025 End: 04-16-2025 Evaluation of diagnostic study results [facility] Start: 03-04-2025 End: 03-04-2025 Evaluation of diagnostic study results [facility] Start: 12-30-2024 Egd ablate tumor polyp/lesion w/dilation& wire [facility] Start: 12-30-2024 Egd transoral biopsy single/multiple [facility] Start: 12-30-2024 Patient discharge [facility] Start: 12-29-2024 End: 12-29-2024 Evaluation of diagnostic study results [facility] Start: 12-09-2024 Evaluation of diagno stic study results 12 Lead EKG performed by [facility] Start: 12-05-2024 BP Controlled (<130/80) BP Controlle d (<130/80) [facility] Start: 11-25-2024 [facility] Start: 11-25-2024 [facility] Start: 07-30-2024 Advance Directive Discussion Advance Directive Discussion [facility] Start: 07-30-2024 Medicare Advantage Annual Wellness Visit Medicare Advantage Annual Wellness Visit [facility] Start: 07-17-2024 Egd transoral biopsy single/multiple EGD BIOPSY SINGLE/MULTIPLE [facility] Start: 07-17-2024 Patient discharge [facility] Start: 03-30-2024 Covid-19 Vaccine () Covid-19 Vaccine () [facility] Start: 03-30-2024 Covid-19 Vaccine () Covid-19 Vaccine () [facility] Start: 03-30-2024 Influenza vaccination Influenza Vacc ine (#1) [facility] Start: 11-20-2023 Egd insert guide wir e dilator passage esophagus EGD GUIDE WIRE INSERTION [facility] Start: 11-20-2023 Patient discharge [facility] Start: 10-16-2023 Egd ablate tumor polyp/lesion w/dilation& wire EGD LESION ABLATION [facility] Start: 10-16-2023 Egd transoral biopsy single/multiple EGD BIOPSY SINGLE/MULTIPLE [facility] Start: 10-16-2023 Patient discharge [facility] Start: 09-18-2023 End: 09-18-2023 [facility] Start: 09-18-2023 Egd ablate tumor polyp/lesion w/dilation& wire EGD LESION ABLATION [facility] Start: 09-18-2023 Patient discharge [facility] Start: 08-15-2023 Egd ablate tumor polyp/lesion w/dilation& wire EGD LESION ABLATION [facility] Start: 08-15-2023 Patient discharge [facility] Start: 08-07-2023 [facility] Start: 07-30-2023 Advance Directive Discussion Advance Directive Discussion [facility] Start: 07-30-2023 Behavioral Health Screening Behavioral Health Screening [facility] Start: 07-10-2023 Egd transoral biopsy single/multiple EGD BIOPSY SINGLE/MULTIPLE [facility] Start: 07-10-2023 Patient discharge [facility] Start: 03-30-2023 Covid-19 Vaccine ( season) Covid-19 Vaccine ( season) [facility] Start: 07-30-2022 ADVANCE DIRECTIVE DISCUSSION ADVANCE DIRECTIVE DISCUSSION [facility] Start: 07-30-2022 DEPRESSION ASSESSMENT DEPRESSION ASS ESSMENT [facility] Start: 06-28-2022 Colonoscopy flx dx w/collj spec when pfrmd DIAGNOSTIC COLONOSCOPY [facility] Start: 06-28-2022 Egd transoral biopsy single/multiple EGD BIOPSY SINGLE/MULTIPLE [facility] Start: 06-28-2022 Patient discharge [facility] Start: 11-03-2021 Iv infusion therapy/prophylaxis /dx 1st to 1 hr THER/PROPH/DIAG IV INF INIT [facility] Work Phone: Start: 03-30-2021 Influenza vaccination INFLUENZ A (Season Ended) [facility] Start: 2020 ADVANCE DIRECTIVE DISCUSSION ADVANCE DIRECTIVE DISCUSSION [facility] Start: 2020 Pneumococcal Vaccine : 65+ (2 of 2 - PCV) Pneumococcal Vaccine: 65+ (2 of 2 - PCV) [facility] Start: 2020 PNEUMOVAX AGE 65 AND OVER WITH 5YR LOOKBACK (#1) PNEUMOVAX AGE 65 AND OVER WITH 5YR LOOKBACK (#1) [facility] Start: 03-30-2020 Influenza vaccination INFLUENZA (#1) [facility] Start: 01-16-2019 Screening for malign ant neoplasm of lung Lung Cancer Screening [facility] Start: 10-12-2018 DIABETES SCREEN DIABETES SCREEN [facility] Start: 2015 RSV Vaccine (1 - 1-d ose 60+ series) RSV Vaccine (1 - 1-dose 60+ series) [facility] Start: 2015 RSV Vaccine (1 - Ris k 60-74 years 1-dose series) RSV Vaccine (1 - Risk 60-74 years 1-dose series) [facility] Start: 07-08-2014 PNEUMOCOCCAL: 65+ (2 - PCV) PNEUMOCOCCAL: 65+ (2 - PCV) [facility] Start: 2010 PROSTATE CANCER SCREENING DISCUSSION PROSTATE CANCER SCREENING DISCUSSION [facility] Start: 2010 Prostate specific antigen measurement Prostate Cancer Screening Discussion [facility] Start: 2005 Screening for malign ant neoplasm of colon [facility] Start: 2005 SHINGRIX VACCINE (1 of 2) SHINGRIX VACCINE (1 of 2) [facility] Start: 2005 Tuberculosis screening COLOREC JOSE CANCER SCREENING,SEE MODIFIER [facility] Start: 2000 COLOGUARD (FIT-DNA) COLOGUARD (FIT-D NA) [facility] Start: 2000 Colonoscopy COLONOSCOPY [facility] Start: 2000 COLORECTAL CANCER SCREENING COLORECTAL CANCER SCREENING [facility] Start: [address] COLONOGRAPHY [facility] Start: 2000 FECAL OCCULT BLOOD FECAL OCCULT BLOO D [facility] Start: 2000 Screening for malign ant neoplasm of colon [facility] Start: 2000 SIGMOIDOSCOPY SIGMOIDOSCOPY [facility] Start: 1990 Lipid panel Lipid Screening [facility] Start: 1990 LIPID SCREEN LIPID SCREEN [facility] Start: 1973 ANNUAL PCP TEAM TUB WASHER GRICELDA DISEASE VISIT ANNUAL PCP TEAM CHRONIC DISEASE VISIT [facility] Start: 1973 Anxiety Screening Anxiety Screening [facility] Start: 1973 BP CONTROLLED (<130/80) BP CONTROLLE D (<130/80) [facility] Start: 1973 Depression Screening Depression Scre ening [facility] Start: 1973 Hepatitis B surface antibody level LDL Cholesterol [facility] Start: 1973 HEPATITIS C SCREENING HEPATITIS C SC [facility] Start: 1973 Hepatitis C screening Hepatitis C [facility] Start: 1973 HIV SCREENING HIV SCREENING [facility] Start: 1967 Adult depression screening assessment DEPRESSION SCREENING [facility] Start: 1965 Diabetic foot examination Diabetic Foot Exam [facility] Start: 1965 Glaucoma screening Dilated Retinal E xam [facility] Start: 1965 Hepatitis B screening Urine Albumin:Creatinine Ratio [facility] Start: 1960 Hemoglobin A1c measurement HbA1C [facility] Start: 1955 ABDOMINAL AORTIC ANEURYSM SCREENING ABDOMINAL AORTIC ANEURYSM SCREENING [facility] Start: 1955 Abdominal aortic aneurysm screening Abdominal Aortic Aneurysm Screening [facility] Ambulatory ECG [facility] 2000 panel - Serum or Plasma [facility] CT Abdomen and Pelvi s W contrast IV [facility] CT Chest [facility] Work Phone: CT Chest [facility] CT Chest [facility] CT Chest WO contrast [facility] Work Phone: CT Chest WO contrast [facility] Patient Education [facility] Work Phone: Patient referral [facility] Work Phone: Prothrombin time [facility] Work Phone: Vitamin D, 25-hydrox y measurement [facility] Vitamin D, 25-hydrox y measurement [facility] Immunizations Immunization Date Immunization Notes Care Provider [facility] 04-08-2025 Seasonal trivalent influenza vaccine, adjuvanted, preservative free Adriel Khan MD Work Phone: [facility] 10-22-2024 pneumococcal conjuga te (PCV20) vaccine, 20 valent (PREVNAR 20) Dwayne Wells MD Work Phone: [facility] 04-21-2024 influenza, high dose seasonal, preservative-free Adriel Khan MD Work Phone: [facility] 04-30-2023 influenza (HD-IIV4) vaccine, age 65+ yr, high dose, quadrivalent, PF (FLUZONE HIGH-DOSE) Dwayne Wells MD Work Phone: [facility] 04-30-2023 influenza virus vacc ine, unspecified formulation [facility]cf Provider [facility] 05-19-2022 COVID-19 vaccine, ag e 12+ yr, bivalent ([employer]Watch) Dwayne Wells MD Work Phone: [facility] 05-19-2022 COVID-19 vaccine, unknown product (NON-US) Dwayne Wells MD Work Phone: [facility] 05-19-2022 influenza (HD-IIV4) vaccine, age 65+ yr, high dose, quadrivalent, PF (FLUZONE HIGH-DOSE) Dwayne Wells MD Work Phone: [facility] Work Phone: 12-02-2021 COVID-19 original vaccine, age 12+ yr, monovalent (PFIZER-BIONTECH - GORDON TOP) Dwayne Wells MD Work Phone: [facility] Work Phone: 12-02-2021 COVID-19 vaccine, unknown product (NON-US) Dwayne Wells MD Work Phone: [facility] 06-28-2021 COVID-19 original vaccine, age 12+ yr, monovalent (PFIZER-BIONTECH - PURPLE TOP) Dwayne Wells MD Work Phone: [facility] Work Phone: 06-28-2021 COVID-19 vaccine, unknown product (NON-US) Dwayne Wells MD Work Phone: [facility] 04-13-2021 influenza (HD-IIV4) vaccine, age 65+ yr, high dose, quadrivalent, PF (FLUZONE HIGH-DOSE) Dwayne Wells MD Work Phone: [facility] Work Phone: 02-24-2021 zoster vaccine recombinant Dwayne Wells MD Work Phone: [facility] Work Phone: 12-24-2020 zoster vaccine recombinant Dwayne Wells MD Work Phone: [facility] Work Phone: 10-25-2020 COVID-19 original vaccine, age 12+ yr, monovalent (PFIZER-BIONTECH - PURPLE TOP) Dwayne Wells MD Work Phone: [facility] Work Phone: 10-25-2020 COVID-19 vaccine, unknown product (NON-US) Dwayne Wells MD Work Phone: [facility] 10-02-2020 COVID-19 original vaccine, age 12+ yr, monovalent (PFIZER-BIONTmention - PURPLE TOP) Dwayne Wells MD Work Phone: [facility] Work Phone: 10-02-2020 COVID-19 vaccine, unknown product (NON-US) Dwayne Wells MD Work Phone: [facility] 09-04-2018 tetanus toxoid, redu cathy diphtheria toxoid, and acellular pertussis vaccine, adsorbed External Provider [facility] Work Phone: 04-12-2018 influenza, injectabl e, quadrivalent, preservative free External Provider [facility] Work Phone: 04-29-[address] Neeraj Daugherty Work Phone: [facility] 04-29-2015 influenza, seasonal, injectable External Provider [facility] Work Phone: 04-29-2015 influenza, seasonal, injectable, preservative free External Provider [facility] Work Phone: 04-29-2015 influenza-karrie H5 v irus vaccine, unspecified formulation Dwayne Wells MD Work Phone: [facility] 07-08-2013 pneumococcal polysaccharide vaccine, 23 valent External Provider [facility] Work Phone: 06-29-2013 pneumococcal polysaccharide vaccine, 23 valent External Provider [facility] Work Phone: 06-29-[address] Dustin Daugherty Work Phone: [facility] Work Phone: 06-29-2013 pneumococcal vaccine , unspecified formulation Dr. Neeraj Daugherty Work Phone: [facility] Payers Date Payer Category Payer Self-pay [id number] 2020 Medicaid [id number] 2020 Medicare [employer] ARE MYCARE [employer] MEDICARE [id number] 2020-Present [phone] [address] [place] [address] Medicare [id number] 2020 Medicare (Managed Care) MYCARE C [employer] MEDICARE [id number] 2018 Medicaid [employer] A[employer] MEDICA[employer] [id number] 2018-Present Medicaid [id number] 2013 Medicaid [id number] 2013 Unknown [id number] Medicare [id number] Unknown [id number] 2.16.840.1.254951.3.579.2. 462 Unknown [id number] 2.16840.1.207915.3.579.2. 462 Unknown [id number] 2.16.840.1.891364.3.579.2. 462 Unknown [id number] 2.16.840.1.763795.3.579.2. 462 Unknown [id number] 2.16.840.1.076658.3.579.2. 462 Unknown [id number] 2.840.1.761912.3.579.2. 462 Unknown [id number] 2.16840.1.328487.3.579.2. 462 Unknown [id number] 2.840.1.036070.3.579.2. 462 Unknown [id number] 2.840.1.262499.3.579.2. 462 Unknown [id number] 2.840.1.492748.3.579.2. 462 Unknown [id number] 2.840.1.586265.3.579.2. 462 Unknown [id number] 2.840.1.803750.3.579.2. 462 Unknown [id number] 2.840.1.474098.3.579.2. 462 Unknown [id number] 2.840.1.453390.3.579.2. 462 Unknown [id number] .840.1.577106.3.579.2. 462 Unknown [id number] 2.840.1.052533.3.579.2. 462 Unknown [id number] 2.840.1.874672.3.579.2. 462 Unknown [id number] 2.840.1.215371.3.579.2. 462 Unknown [id number] .840.1.567455.3.579.2. 462 Unknown [id number] 2.840.1.932578.3.579.2. 462 Unknown [id number] 2.840.1.401892.3.579.2. 462 Unknown [id number] 2.840.1.923899.3.579.2. 462 Unknown [id number] 2.16.840.1.583910.3.579.2. 462 Unknown [id number] 2.16.840.1.779858.3.579.2. 462 Unknown [id number] 2.16.840.1.370580.3.579.2. 462 Unknown [id number] 2.16.840.1.973125.3.579.2. 462 Unknown [id number] 2.16840.1.242033.3.579.2. 462 Unknown [id number] 2.840.1.486768.3.579.2. 462 Unknown [id number] 2.840.1.767923.3.579.2. 462 Unknown [id number] 2.840.1.182586.3.579.2. 462 Unknown [id number] 2.840.1.595418.3.579.2. 462 Unknown [id number] 2.840.1.356999.3.579.2. 462 Unknown [id number] 2.840.1.870498.3.579.2. 462 Unknown [id number] 2.840.1.751718.3.579.2. 462 Unknown [id number] 2.840.1.589559.3.579.2. 462 Unknown [id number] 2.840.1.852298.3.579.2. 462 Unknown [id number] 2.840.1.905850.3.579.2. 462 Unknown [id number] 2.840.1.958035.3.579.2. 462 Unknown [id number] 2.16840.1.667244.3.579.2. 462 Unknown [id number] 2.16840.1.068534.3.579.2. 462 Unknown [id number] 2.840.1.885692.3.579.2. 462 Unknown [id number] 2.16.840.1.809825.3.579.2. 462 Unknown [id number] 2.16.840.1.541019.3.579.2. 462 Unknown [id number] 2.16.840.1.318866.3.579.2. 462 Unknown [id number] 2.16840.1.343252.3.579.2. 462 Unknown [id number] 2.16.840.1.948281.3.579.2. 462 Unknown [id number] 2.16840.1.628981.3.579.2. 462 Unknown [id number] 2.840.1.262873.3.579.2. 462 Unknown [id number] 2.840.1.603497.3.579.2. 462 Unknown [id number] 2.840.1.288241.3.579.2. 462 Unknown [id number] 2.840.1.222437.3.579.2. 462 Unknown [id number] 2.840.1.670410.3.579.2. 462 Unknown [id number] 2.840.1.259741.3.579.2. 462 Unknown [id number] 2.16840.1.487021.3.579.2. 462 Unknown [id number] 2.16840.1.559664.3.579.2. 462 Unknown [id number] 2.16840.1.007641.3.579.2. 462 Unknown [id number] 2.16840.1.616679.3.579.2. 462 Unknown [id number] 2.16840.1.326154.3.579.2. 462 Unknown [id number] 2.16840.1.069769.3.579.2. 462 Unknown [id number] 2.16840.1.336663.3.579.2. 462 Unknown [id number] 2.16.840.1.683198.3.579.2. 462 Unknown [id number] 2.16.840.1.835560.3.579.2. 462 Social History Date Type Detail Facility Start: 12-01-2019 End: 12-25-2024 Tobacco smoking status NHIS Former smoker [facility] Start: 07-30-1974 End: 05-14-2019 History of tobacco use Current smoker [facility] Start: 07-30-1974 End: 05-14-2019 History of tobacco use Cigarette Smoker [facility] Start: 12-01-2019 End: 12-05-2022 Cigarettes smoked current (pack per day) - Reported [facility] Start: 12-01-2019 End: 12-04-2024 Tobacco use and exposure Never used [facility] Start: 12-01-2019 End: 12-04-2024 Alcohol intake Current drinker of alcohol (finding) [facility] Start: 05-03-2016 [facility] Start: 1955 [facility] Exposure to SARS-CoV -2 (event) Not sure [facility] Start: 10-27-2021 End: 10-12-2023 Tobacco smoking status GAIS Unknown if ever smoked [facility] Start: 04-28-2020 None [facility] Start: 04-28-2020 Alone [facility] Start: 06-18-2019 Non-smoker [facility] Start: 1955 Sex Assigned At Male [facility] Start: 12-05-2022 End: 12-06-2023 Tobacco use panel [facility] National Score (1-10 0), lower number is lower risk 92 [facility] Start: 10-27-2024 Sex Male (finding) [facility] Medical Equipment Procedure Code Equipment Code Equipment Origin al Text Equipment Identifier Dates CATH,BARXX RFA [id number] FDA Start: 09-18-2023 CATH,BARXX RFA [id number] FDA Start: 09-18-2023 CATH,BARXX RFA [id number] FDA Start: 09-18-2023 CATH,BARXX RFA [id number] FDA Start: 09-18-2023 CATH,BARXX RFA [id number] FDA Start: 09-18-2023 CATH,BARXX RFA [id number] FDA Start: 09-18-2023 CATH,BARXX RFA [id number] FDA Start: 09-18-2023 CATH,BARXX RFA [id number] FDA Start: 09-18-2023 CATH,BARXX RFA [id number] FDA Start: 09-18-2023 CATH,BARXX RFA [id number] FDA Start: 09-18-2023 CATH,BARXX RFA [id number] FDA Start: 09-18-2023 CATH,BARXX RFA [id number] FDA Start: 09-18-2023 CATH,BARXX RFA [id number] FDA Start: 09-18-2023 CATH,BARXX RFA [id number] FDA Start: 09-18-2023 CATH,BARXX RFA [id number] FDA Start: 09-18-2023 FDA Start: 09-18-2023 FDA Start: 09-18-2023 FDA Start: 09-18-2023 FDA Start: 09-18-2023 CATH,BARXX RFA [id number] FDA Start: 09-18-2023 CATH,BARXX RFA [id number] FDA Start: 09-18-2023 CATH,BARXX RFA [id number] FDA Start: 09-18-2023 Goals Date Patient Goal Desired Activity /State Personal health goal Mental Status Date Assessment Result Facility 12-30-2024 Cognitive function Follows Commands;Drows y [facility] Work Phone: 11-25-2024 Cognitive function Voice/Name [facility] Work Phone: 07-17-2024 Cognitive function Sedated [facility] Work Phone: 11-30-2023 Cognitive function Voice/Name [facility] Work Phone: 11-20-2023 Cognitive function Voice/Name [facility] Work Phone: 10-16-2023 Cognitive function Level Of Consciousness Drowsy [facility] Work Phone: 10-16-2023 Cognitive function Voice/Name [facility] Work Phone: 09-18-2023 Cognitive function Level Of Cons ciousness Awake;Drowsy [facility] Work Phone: 08-15-2023 Cognitive function Voice/Name [facility] Work Phone: 07-10-2023 Cognitive function Voice/Name [facility] Work Phone: 06-01-2023 Cognitive function Awake;Alert;A ppropriate;[facility] Work Phone: 01-15-2023 Cognitive function Level Of Cons ciousness Awake;Alert;[facility] Work Phone: 11-30-2022 Cognitive function Awake;Alert;A ppropriate;[facility] Work Phone: 2022 Cognitive function Voice/Name [facility] Work Phone: 06-28-2022 Cognitive function Level Of Consciousness Drowsy [facility] Work Phone: 06-28-2022 Cognitive function Voice/Name [facility] Work Phone: 11-03-2021 Cognitive function Level Of Cons ciousness Awake;Alert [facility] Work Phone: Clinical Notes 11-20-2019 to 04-16-2025 Note Date & Type Note Facility 04-16-[address] [facility] 01-03-2025 Radiology Diagnostic study note [facility] Imaging Services [address] [place] [address] Lung Screening MR#: [id number] Acct: [id number] Name: ROGER MART III Rep #: [id number] : 1955 M 69 From: Shona Walls MD PCP: Dr. Adriel Khan MD Status: REG CL I Study:Low Dose CT Lung Screening Date of Exam : 01/02/25 Exam# [id number] Ordering Dr: Rubin Macedo NPC PROCEDURE: LOW DOSE CT LUNG SCREENING 01/02/2025 REASON FOR EXAM: SMOKING TECHNIQUE: Low Dose CT Lung screening without contrast. Coronal and Sagittal reconstructionseries were provided. One or more dose reduction techniques were used (e.g., Automated exposure control, adjustment of the mA and/or kV according to patient size, use of iterative reconstruction technique). REFERENCE LINK: [facility] Lung-R[facility] RADIATION DOSE SUMMARY: CTDlvol: 3.0 mGy DLP: 107 mGycm COMPARISON: CT chest on 05/14/2024 and 12/29/2023 FINDINGS: Lymph Nodes:No significant lymphadenopathy Heart and Vasculature:No significant cardiomegaly. There are calcifications surrounding the left atrium, unchanged. Severe coronary calcification. Diffuse aortic atherosclerosis. Lungs and Airways: Pleura:No effusion central airways are predominantly clear. Severe emphysematous changes. There are multiple solid pulmonary nodules, the largest measuring 6 mm in the right upper lobe (series 2, image 143) and right middle lobe (image 188), unchanged. Upper Abdomen:Unremarkable Bones:Severe compression deformity at T8, unchanged. Additionally there are unchanged compression deformities at T9, T12, and L2. Unchanged fracture of the T10 vertebral body. CT/Low Dose CT Lung Screening IMPRESSION: Lung-RADS Category: 2S BENIGN (BASED ON IMAGING FEATURES OR INDOLENT BEHAVIOR). RECOMMEND 12-MONTH SCREENING LDCT. Other Significant Findings: Severe coronary calcification. Severe emphysematouschanges. Numerous unchanged vertebral fractures. Reading Location: [id number] CC: BONNY Macedo; Dr. Adriel Khan MD ~ Customer Relations Specialist: Signed [facility] 12-30-2024 Evaluation note Diagnosis Onset Date Resolution Barretts esophagus chronic December 302024 10:55am Smoking greater than 40 pack years acute January 20, 2025 9:34am Hypoxia chronic January 20 9:34am Lung nodule chronic January 20 9:34am Obstructive sleep apnea chronic J une 2024 9:34am Pulmonary hypertension chronic Ju ne 2024 9:34am Stage 1 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 chronic January 20, 2025 9:34am Thrush, oral resolved January 20, 2 025 9:34am Chronic anticoagulation acute A ugust 2024 8:47am Atrial fibrillation and flutter chronic March 04, 2025 8:47am Essential hypertension chronic Au mona 2024 8:47am Smoking greater than 40 pack years acute April 08, 2025 10:06am Hypoxia chronic March 10:06am Lung nodule chronic March 10:06am Obstructive sleep apnea chronic S eptember 2024 10:06am Pulmonary hypertension chronic Se ptember 2024 10:06am Stage 1 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 chronic April 08, 2025 10:06am Thrush, oral resolved April 082024 10:06am Chronic anticoagulation acute S eptember 2024 11:12am Atrial fibrillation and flutter chronic April 16, 2025 11:12am Essential hypertension chronic Se ptember 2024 11:12am [facility] [employer] Work Phone: [phone]) 553-498106-03-2025 Consult note [facility] Medical Records Department [address] [place] [address] Anesthesia Postop Eval I 12/30/24 1232 MR#: [id number] Acct: [id number] Name: ROGER MART III Rep #:[id number] : 1955 69 From: Td Wade PCP: Dr. Adriel Khan MD Status:REG SD C Y Race: C Location: [place] [address] Anesthesia: Postop Eval I Current Vital Signs Temperature: 97 F Pulse Rate: 14 Blood Pressure: 90/67 Respiratory Rate: 14 Pulse Ox: 97 Oxygen Delivery Method: Room Air Assessment Airway patent: Yes Spontaneous unlabored respirations: Yes Mental status: Awake and Calm nausea: No Vomiting: No Anesthesia Complication: No Fluid Hydration Crystalloid volume administer (ml): 800 Total IV fluid infused: 800 Progress Note Anesthesia document: Postop Eval 1 completed: Yes 12/30/24 1233 > Date _ Td Wade Cosigner Signature: Date CC: ~ Signed [facility]06-03-2025 Procedure note [facility] Medical Records Department [address] [place] [address] EGD Report MR#: [id number] Acct: [id number] Name: ROGER MART III Rep #:[id number] : 1955 69 From: Pablo Pichardo DO PCP: Dr. Adriel Khan MD Status:REG SD C Patient Name: Roger Mart Procedure Date: 12/30/2024 11:51 AM Date of : 1955 Age: 69 Procedure: Upper GI endoscopy Indications: Heartburn, Vergara's esophagus with low grade dysplasia, For endoscopic therapy of Vergara's esophagus with low grade dysplasia Providers: Pablo Pichardo DO Referring MD: Adriel Khan Md Medicines: Propofol per Anesthesia Patient Profile: This is a 69 year old male. Refer to note in patient chart for documentation of history and physical. Patient has symptoms of chronic dyspepsia, acute heartburn, chronic nausea and chronic vomiting. Complications: No immediate complications. Procedure: Pre-Anesthesia Assessment: - Prior to the procedure, a History and Physical was performed, and patient medications and allergies were reviewed. The patient is competent. The risks and benefits of the procedure and the sedation options and risks were discussed with the patient. All questions were answered and informed consent was obtained. Patient identification and proposed procedure were verified by the physician in the pre-procedure area. Mental Status Examination: alert and oriented. Airway Examination: normal oropharyngeal airway and neck mobility. Respiratory Examination: clear to auscultation. CV Examination: normal. Prophylactic Antibiotics: The patient does not require prophylactic antibiotics. Prior Anticoagulants: The patient has taken no anticoagulant or antiplatelet agents. ASA Grade Assessment: II - A patient with mild systemic disease. After reviewing the risks and benefits, the patient was deemed in satisfactory condition to undergo the procedure. The anesthesia plan was to use monitored anesthesia care (MAC). Immediately prior to administration of medications, the patient was re-assessed for adequacy to receive sedatives. The heart rate, respiratory rate, oxygen saturations, blood pressure, adequacy of pulmonary ventilation, and response to care were monitored throughout the procedure. The physical status of the patient was re-assessed after the procedure. After obtaining informed consent, the endoscope was passed under direct vision. Throughout the procedure, the patient's blood pressure, pulse, and oxygen saturations were monitored continuously. The gastroscope was introduced through the mouth, and advanced to the second part of duodenum. The upper GI endoscopy was accomplished without difficulty. The patient tolerated the procedure well. Scope In: 12:05:39 PM Scope Out: 12:18:48 PM Total Procedure Duration Time 0 hours 13 minutes 9 seconds Findings: The esophagus and gastroesophageal junction were examined with white light and narrow band imaging (NBI) from a forward view and retroflexed position. There were esophageal mucosal changes secondary to established long-segment Vergara's disease. These changes involved the mucosa at the upper extent of the gastric folds (40 cm from the incisors) extending to the Z-line (35 cm from the incisors). Two tongues of salmon-colored mucosa were present at 35 cm. The maximum longitudinal extent of these esophageal mucosal changes was 5 cm in length. Mucosa was biopsied with a cold forceps for histology in a targeted manner at intervals of 1 cm in the lower third of the esophagus. One specimen bottle was sent to pathology. Focal radiofrequency ablation of Vergara's esophagus was performed. With the endoscope in place, the position and extent of the Vergara's mucosa and the anatomic landmarks including top of gastric folds were noted. Endoscopic visualization identified an ablation site including the entire visible Vergara's segment. The Vergara's mucosa was irrigated with water. Gastric contents were suctioned. The endoscope was then removed from the patient. The Barrx-90 radiofrequency ablation catheter was attached to the tip of the endoscope. The endoscope with the attached radiofrequency ablation catheter was then passed transorally under direct vision into the esophagus and advanced to the areas of Vergara's mucosa. The areas included islands of Vergara's mucosa. The radiofrequency ablation catheter was placed in contact with the surface of the Vergara's mucosa under direct visualization and energy was applied twice at 12 J/cm2. The ablation zone was cleaned of coagulative debris. The ablation catheter and endoscope were then removed and the catheter was cleaned. The catheter and endoscope were reinserted into the esophagus. A second round of ablation was then performed. Energy was applied twice at 12 J/cm2 to retreat the areas of Vergara's epithelium that had been treated with the first series of ablation. The areas of the esophagus where Vergara's mucosa had been ablated were examined. Areas of visible Vergara's esophagus were completely ablated. Estimated blood loss was minimal. A medium-sized hiatal hernia was present. No gross lesions were noted in the entire examined stomach. No gross lesions were noted in the duodenal bulb. Impression: - Esophageal mucosal changes secondary to established long-segment Vergara's disease. Biopsied. Treated with radiofrequency ablation. - Medium-sized hiatal hernia. - No gross lesions in the entire stomach. - No gross lesions in the duodenal bulb. Recommendation: - Discharge patient to home. - Resume previous diet. - Continue present medications. - Await pathology results. - Repeat upper endoscopy in 6 months for surveillance. Procedure Code(s): --- Professional --- 22256, Esophagogastroduodenoscopy, flexible, transoral; with ablation of tumor(s), polyp(s), or other lesion(s) (includes pre- and post-dilation and guide wire passage, when performed) 83478, 59,51, Esophagogastroduodenoscopy, flexible, transoral; with biopsy, single or multiple CPT copyright 2021 [employer]. All rights reserved. The codes documented in this report are preliminary and upon college sports coach review may be revised to meet current compliance requirements. Pablo Pichardo DO 12/30/2024 12:28:55 PM This report has been signed electronically. Number of Addenda: 0 Note Initiated On: 12/30/2024 11:51 AM 12/30/24 1229 Date _ Pablo Pichardo DO Cosigner Signature: Date (if indicated) CC: Dr. Adriel Khan MD; Pablo Pichardo DO ~ Date Dictated: 12/30/24 1151 Date Transcribed: Customer Relations Specialist: RF Signed [facility]06-03-2025 Procedure note [facility] Medical Records Department [address] [place] [address] Operative Report - CC Letter MR#: [id number] Acct: [id number] Name: ROGER MART III Rep #:[id number] : 1955 69 From: aPblo Pichardo DO PCP: Dr. Adriel Khan MD Status:REG SD C 12/30/2024 Adriel Khan Md Re : Upper GI endoscopy procedure for Roger Mart Dear Glendy This procedure was performed on Monday, December 30, 2024. My impressions and recommendations are as follows: Impressions : - Esophageal mucosal changes secondary to established long-segment Vergara's disease. Biopsied. Treated with radiofrequency ablation. - Medium-sized hiatal hernia. - No gross lesions in the entire stomach. - No gross lesions in the duodenal bulb. Recommendations : - Discharge patient to home. - Resume previous diet. - Continue present medications. - Await pathology results. - Repeat upper endoscopy in 6 months for surveillance. My findings are described in the full procedure note, which is enclosed. If I can be of further assistance, please feel free to contact me at . Sincerely, Pablo Pichardo DO 12/30/2024 12:28:55 PM This report has been signed electronically. 12/30/24 1229 Date _ Pablo Sharifigncolby Signature: Date (if indicated) CC: Dr. Adriel Khan MD; Pablo Pichardo DO ~ Date Dictated: 12/30/24 1151 Date Transcribed: Customer Relations Specialist: RF Signed [facility]06-03-2025 Consult note [facility] Medical Records Department [address] [place] [address] Pre-Anesthesia Evaluation 12/30/24 1142 MR#: [id number] Acct: [id number] Name: ROGER MART III Rep #:[id number] : 1955 69 From: Kunal Chang MD PCP: Dr. Adriel Khan MD Status:REG SD C Y Race: C Location: [place] [address] ASA Classification* ASA Classification ASA Classification: 3 Assessment & Plan Anesthesia* Anesthesia Assessment Anesthesia Assessment: Discussed sedation and/or anesthesia options, risks, benefits, and alternatives with patient/parents/legal guardian/POA. Questions invited. The patient/parents/legal guardian/POA seems to understand and agrees to proceedwith anesthesia plan. Reviewed the physical assessment, medical history, allergy history and patient home medications list prior to surgery/procedure/anesthetic and documented any changes. Performed airway and anesthesia risk assessments. Anesthesia Type Anesthesia Type: MAC History Source History Obtained from:: Patient and Chart Anesthesia Focused Assessment* Temperature: 97.7 F Pulse Rate: 84 Blood Pressure: 118/86 Respiratory Rate: 16 Pulse Ox: 96 Oxygen Delivery Method: Room Air Airway Assessment Mouth opens: >3 cm Mallampati Score: I Teeth Condition: Missing (Patient is missing 1 bottom teeth. Rest are tight.) Neck Range of motion (ROM): Full ROM Focused Labs Anesthesia Preop lab: CBC WBC 9.8 K/mm3 (4.4-11.0) 11/25/24 16:47 11/25/24 RBC 4.82 M/mm3 (4.6-6.2) 11/25/24 16:47 11/25/24 Hgb 14.2 g/dL (13.0-16.5) 11/25/24 16:47 11/25/24 Hct 42.6 % (40-54) 11/25/24 16:47 11/25/24 Plt Count 302 K/mm3 (150-450) 11/25/24 16:47 11/25/24 CHEMISTRY Potassium 4.1 mmol/L (3.3-5.1) 12/16/24 06:35 12/16/24 Sodium 134 mmol/L (133-145) 12/16/24 06:35 12/16/24 Magnesium 2.6 mg/dL (1.6-2.6) 05/30/24 07:15 05/30/24 Phosphorus 2.3 mg/dL (2.5-4.9) L 05/11/24 06:35 05/11/24 BUN 13 mg/dL (4-19) 12/16/24 06:35 12/16/24 Creatinine 1.15 mg/dL (0.70-1.20) 12/16/24 06:35 12/16/24 Glucose 94 mg/dL (70-99) 12/16/24 06:35 12/16/24 POC Glucose 92 mg/dL (74-106) 07/17/24 09:33 07/17/24 TSH 2.45 uIU/mL (0.358-3.74) 05/22/19 09:00 COAG PT 25.3 SECONDS (11.7-14.9) H 12/16/24 06:35 11/28 INR 2.0 12/06/23 10:48 12/06/23 Pre-Assessment Diagnosis/Proposed Procedure Planned Operative Procedure(s): EGD Anesthesia History Anesthesia History - correctional nurse: Anesthesia History - correctional nurse Hx Hospitalization Yes: 04/2024 PNEUMONIA 12/25/24 10:54 Any Problems With Anesthesia No 12/25/24 10:54 Cholinesterase deficiency No 12/25/24 10:54 You/Your Family Experience No 12/25/24 10:54 fever (hyperthermia) with Relationship Recent Exposure to Contagious No 12/30/24 11:20 Disease Does patient have nerve No 12/25/24 10:54 stimulator Patient instructed to have device shut off --Does patient have Pacemaker No 12/30/24 11:20 or ICD? When Was Last Pacemaker Check QUESTION #4 FULL TEXT: You/Your Family Experience fever (hyperthermia) with Anesthesia Last Oral Intake Last Oral intake: Last Oral Intake NPO since 23:00 12/30/24 11:20 Meds taken in AM with sips of Yes 12/30/24 11:20 water? Meds patient instructed to take am of surgery Any additional information?: Yes Meds taken in AM with sips of water?: Yes PONV PONV - correctional nurse: PONV - correctional nurse Female No 12/25/24 10:54 HX of Motion Sickness No 12/25/24 10:54 HX of N/V After Surgery No 12/25/24 10:54 Non-Smoker Yes 12/25/24 10:54 Duration of Surgery greater No 12/25/24 10:54 than 60 minutes Number of Risk Factors 1 12/25/24 10:54 PONV Score Low Risk 12/25/24 10:54 Height & Weight Height & Weight: Anesthesia: Height & Weight Height 5 ft 7 in 12/30/24 11:20 Weight: 75 kg 12/30/24 11:20 Body Mass Index (BMI) 25.9 12/30/24 11:20 Respiratory Assessment Respiratory Assessment - correctional nurse: Respiratory Tract Infection Hx - correctional nurse Hx Respiratory Tract Infection No 12/25/24 10:54 STOP Sleep Apnea STOP Sleep Apnea - correctional nurse: STOP Sleep Apnea - correctional nurse Hx Hypertension Yes: CONTROLLED WITH MEDS 12/25/24 10:54 Hx Sleep Apnea Yes 12/25/24 10:54 CPAP No 12/28/24 21:34 BIPAP No 12/25/24 10:54 Do you snore loudly (louder than talking or can be heard Do you often feel tired/ fatigued/ sleepy during daytime? Has anyone observed you stop breathing during sleep? STOP Results Positive 12/25/24 10:54 QUESTION #5 FULL TEXT : Do you snore loudly (louder than talking or can be heard through closeddoors)? 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 Specify any problems Hx of Preganancy in last 3 N/A 12/25/24 10:54 Months Nurse Filling Out Transfusion MGRIFFITH 12/25/24 10:54 & Questions: Date: 12/25/24 12/25/24 10:54 Time: 10:58 12/25/24 10:54 Patient unable to answer at this time (ie. confused, unrespo /Reproduction History /Reproductive History - correctional nurse: /Reproductive Hx- correctional nurse Hx Now Gestational Age (in weeks): EDC: Hx Hx Para Hx Section SAB No 07/16/24 10:49 Active Medications Active Medications: Current Medications Generic Name Dose Route Start Last Admin Trade Name Freq PRN Reason Stop Dose Admin Lactated Ringer's 1,000 mls @ 15 mls/hr 12/30/24 11:15 12/30/24 11:27 IV 15 mls/hr .Q48H LOY Administration PFSH Medical History Wears hearing aid Arthritis Easy bruising On home oxygen therapy CPAP (continuous positive airway pressure) dependence Sleep apnea History of Holter monitoring Acute and chronic respiratory failure with hypoxia History of echocardiogram Injury of back History of hiatal hernia Shortness of breath on exertion Former smoker Leg cramps Cardiology follow-up encounter Pulmonary emphysema Hyperlipidemia Colon polyps Barretts esophagus Scabies Atrial fibrillation and flutter Osteoporosis Essential hypertension History of DVT (deep vein thrombosis) Paroxysmal atrial tachycardia Paroxysmal atrial fibrillation GERD (gastroesophageal reflux disease) Gout Type 2 diabetes mellitus Hypertension Tachycardia halfway (current) use of anticoagulants Near syncope Bradycardia Tobacco dependence Afib Home Medications ?Medication ?Instructions ?Recorded ?Last Taken ?Type denosumab 60 mg/mL subcutaneous 60 mg subcut [id number] osteoperosis 11/29/23 Unknown Rx syringe (Prolia) #1 mL omega-3 fatty acids 1,000 mg 1,000 mg PO DAILY supplem ent 02/28/24 12/27/24 History capsule allopurinol 300 mg tablet 300 mg PO DAILY gout 4 07/17/24 History cholecalciferol (vitamin D3) 50 50 mcg PO QDAY 5 Unknown History mcg (2,000 unit) capsule dofetilide 500 mcg capsule 500 mcg PO BID heart #180 caps 08/18/24 Unknown Rx furosemide 40 mg tablet 40 mg PO DAILY edema #90 tab s 08/18/24 Unknown Rx potassium chloride 10 mEq 10 meq PO DAILY supplement #90 08/18/24 Unknown Rx tablet,extended release(part/cryst) tabs albuterol sulfate 90 mcg/actuation 2 puff inhalation Q 6H PRN 10/15/24 Unknown Rx aerosol inhaler shortness of breath or wheez ing #8.5 grams guaifenesin 1,200 mg tablet, 1,200 mg PO Q12H cough #6 0 tabs 10/15/24 Unknown Rx extended release 12 hr ipratropium 0.5 mg-albuterol 3 mg 3 ml inhalation TID PRN shortness 10/15/24 Unknown Rx (2.5 mg base)/3 mL nebulization of breath or wheezing #180 mL soln warfarin 4 mg tablet 4 mg PO QDAY #90 tabs 12/23/24 Rx fluticasone fur. 100 mcg-umeclid 1 inh inhalation Q24H #60 ea 11/21/24 Unknown Rx 62.5 mcg-vilant 25 mcg inhalat.powder (Trelegy Ellipta) pantoprazole 40 mg tablet,delayed 40 mg PO BID gerd # 60 tabs 12/12/24 12/30/24 01:30 Rx release ipratropium 0.5 mg-albuterol 3 mg 3 ml inhalation BID 12/25/24 Unknown History (2.5 mg base)/3 mL nebulization soln diltiazem HCl 240 mg 240 mg PO BID 12/26/2412/30 01:30 History capsule,extended release 24 hr Allergy/AdvReac Type Severity Reaction Status Date / Time secobarbital sodium (From Allergy Unknown Verified 12/30/24 11:18 [place]) venom-honey bee (bee venom Allergy Anaphylaxis Verified 12/30/24 11:18 (honey bee)) Family History Mother Diabetes Hypertension Myocardial infarction CAD (coronary artery disease) Father Hypertension Heart disease Diabetes Myocardial infarction CAD (coronary artery disease) Surgical History History of esophagogastroduodenoscopy (EGD) History of hip replacement Status post peripheral artery angioplasty History of left hip replacement History of cardiac radiofrequency ablation (~04/2008) Social History household members: other details: His mother lives with him. Smoking Status: Former smoker Tobacco: How many years used: 50 how long ago did patient quit smokin alcohol intake: current alcohol intake frequency: a few times a month Alcohol type: beer substance use type: does not use caffeine: No Review of Systems (Anesthesia) ROS Narrative System reviewed and no additional complaints, except as documented. 12/30/24 1150 nikki REIS> Date _ Kunal Chang MD Cosigner Signature: Date CC: ~ Signed [facility]06-03-2025 History and physical note [facility] Medical Records Department [address] [place] [address] History & Physical Exam 12/30/24 1146 MR#: [id number] Acct: [id number] Name: ROGER MART III Rep #:[id number] : 1955 69 From: Pablo Friend DO PCP: Dr. Adriel Khan MD Status:REG SD C Location: [place] [address] HPI - General General Date of Admission: 12/30/24 Date of Service: 12/30/24 Chief Complaint: Robin's esophagus HPI Narrative ROGER MART, is a 69 M who presentsChief Complaint: Vergara's esophagus with low-grade dysplasia *BGI established 05.02.22 without GI complaints. History of colonic polyps, largehiatal hernia and Vergara?s esophagus.?EGD and colonoscopy 06.28.22?EGD [...] BM are normal. Has no other concerns. [facility] ED 08.07.23 presents with R foot pain EGD 08.15.23 Esophageal mucosal changes secondary to established long-segment Vergara's disease. Treated with radiofrequency ablation. Medium-sized hiatal hernia. No gross lesions in the duodenal bulb. No specimens collected. EGD 09.18.23 Esophageal mucosal changes secondary to established long- segmentBarrett's disease. Treated with radiofrequency ablation. Hiatal hernia. Normal second portion of the duodenum. No specimenscollected. EGD 10.16.23 Esophageal mucosal changes secondary to established long- segmentBarrett's disease. Biopsied. Treated with radiofrequency ablation. Medium-sized hiatal hernia. No gross lesions in the duodenal bulb. Esophageal plaques were found, consistent with candidiasis. EGD 11.20.23 Moderate Schatzki ring. Dilated. Esophageal mucosal changes secondary to established short-segment Vergara's disease. Biopsied. Hiatal hernia. The examination was otherwise normal. No gross lesions in the duodenal bulb. OV 12.31.23 pt reports that he is doing well overall with no GI symptoms of concern at this time. Continues with pantoprazole and sucralfate. [facility] ED 04.20.24 - 04.23.24 SOB - consulted for hematemesis EGD 04.21.24 Normal esophagus. Vergara's esophagus. Medium-sized hiatal hernia. Chronic gastritis. No gross lesions in the duodenal bulb. No specimens collected. OV 05.30.24 pt reports that he is feeling well overall and denies GI symptoms of concern at this time. Discussed his EGD and colonoscopy findings, focusing on Vergara's and the increased risk for esophageal cancer. Not taking omeprazole, prescribed pantoprazole 40 mg QAM to be taken indefinitely. Liana repeat EGD in one yr for long segment Vergara's. 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 Repeat colonoscopy 5 yrs. f/u 6 months. EGD scheduled 07.17.24. OV 07.01.24 Denies GI concerns at this time. Continues pantoprazole. [facility] Medical History Wears hearing aid Arthritis Easy bruising On home oxygen therapy CPAP (continuous positive airway pressure) dependence Sleep apnea History of Holter monitoring Acute and chronic respiratory failure with hypoxia History of echocardiogram Injury of back History of hiatal hernia Shortness of breath on exertion Former smoker Leg cramps Cardiology follow-up encounter Pulmonary emphysema Hyperlipidemia Colon polyps Barretts esophagus Scabies Atrial fibrillation and flutter Osteoporosis Essential hypertension History of DVT (deep vein thrombosis) Paroxysmal atrial tachycardia Paroxysmal atrial fibrillation GERD (gastroesophageal reflux disease) Gout Type 2 diabetes mellitus Hypertension Tachycardia halfway (current) use of anticoagulants Near syncope Bradycardia Tobacco dependence Afib Home Medications ?Medication ?Instructions ?Recorded ?Last Taken ?Type denosumab 60 mg/mL subcutaneous 60 mg subcut [id number] osteoperosis 11/29/23 Unknown Rx syringe (Prolia) #1 mL omega-3 fatty acids 1,000 mg 1,000 mg PO DAILY supplem ent 02/28/24 12/27/24 History capsule allopurinol 300 mg tablet 300 mg PO DAILY gout 4 07/17/24 History cholecalciferol (vitamin D3) 50 50 mcg PO QDAY 5 Unknown History mcg (2,000 unit) capsule dofetilide 500 mcg capsule 500 mcg PO BID heart #180 caps 08/18/24 Unknown Rx furosemide 40 mg tablet 40 mg PO DAILY edema #90 tab s 08/18/24 Unknown Rx potassium chloride 10 mEq 10 meq PO DAILY supplement #90 08/18/24 Unknown Rx tablet,extended release(part/cryst) tabs albuterol sulfate 90 mcg/actuation 2 puff inhalation Q 6H PRN 10/15/24 Unknown Rx aerosol inhaler shortness of breath or wheez ing #8.5 grams guaifenesin 1,200 mg tablet, 1,200 mg PO Q12H cough #6 0 tabs 10/15/24 Unknown Rx extended release 12 hr ipratropium 0.5 mg-albuterol 3 mg 3 ml inhalation TID PRN shortness 10/15/24 Unknown Rx (2.5 mg base)/3 mL nebulization of breath or wheezing #180 mL soln warfarin 4 mg tablet 4 mg PO QDAY #90 tabs 12/23/24 Rx fluticasone fur. 100 mcg-umeclid 1 inh inhalation Q24H #60 ea 11/21/24 Unknown Rx 62.5 mcg-vilant 25 mcg inhalat.powder (Trelegy Ellipta) pantoprazole 40 mg tablet,delayed 40 mg PO BID gerd # 60 tabs 12/12/24 12/30/24 01:30 Rx release ipratropium 0.5 mg-albuterol 3 mg 3 ml inhalation BID 12/25/24 Unknown History (2.5 mg base)/3 mL nebulization soln diltiazem HCl 240 mg 240 mg PO BID 12/26/2412/30 01:30 History capsule,extended release 24 hr Allergy/AdvReac Type Severity Reaction Status Date / Time secobarbital sodium (From Allergy Unknown Verified 12/30/24 11:18 [place]) venom-honey bee (bee venom Allergy Anaphylaxis Verified 12/30/24 11:18 (honey bee)) Family History Mother Diabetes Hypertension Myocardial infarction CAD (coronary artery disease) Father Hypertension Heart disease Diabetes Myocardial infarction CAD (coronary artery disease) Surgical History History of esophagogastroduodenoscopy (EGD) History of hip replacement Status post peripheral artery angioplasty History of left hip replacement History of cardiac radiofrequency ablation (~04/2008) Social History household members: other details: His mother lives with him. Smoking Status: Former smoker Tobacco: How many years used: 50 how long ago did patient quit smokin alcohol intake: current alcohol intake frequency: a few times a month Alcohol type: beer substance use type: does not use caffeine: No ROS Constitutional Constitutional: Denies fatigue, fever(s), poor appetite, weight gain or weight loss Gastrointestinal Gastrointestinal: Denies belching, bloating, change in bowel habits, change in stool character, chewing difficulty, coffee ground emesis, constipation, cramping, diarrhea, dyspepsia, dysphagia, earlysatiety, excessive flatus, fecalincontinence, heartburn, hematemesis, hematochezia, hemorrhoids, loose stools, melena, nausea, odynophagia, rectal bleeding, tenesmus, vomiting or weight changes Vital Signs Vital Signs Vital Signs: 12/30/24 11:20 12/30/24 11:20 Temperature 97.7 F L Temperature Source Temporal Pulse Rate 84 Respiratory Rate 16 Respiratory Pattern Normal Blood Pressure 118/86 H Blood Pressure Mean 96 Blood Pressure Source Monitor Blood Pressure Position Sitting Blood Pressure Location Right Arm Pulse Ox 96 Oxygen Delivery Method Room Air Weight Weight: 165 lb 5.547 oz Body Mass Index (BMI) 25.9 Physical Exam Const alert, oriented x3, no apparent distress and healthy appearing General Appearance: cooperative GI normal to inspection, nondistended, normoactive bowel sounds, soft to palpation,non-tender and non-distended Percussion: normal to percussion Rectal Exam: deferred Results Lab / Micro Data Labs: Laboratory Results - last 24 hr 12/30/24 11:01: POC PT 13.1, INR 1.1 Assessment & Plan Assessment/Plan (1) Barretts esophagus: QUALIFIERS: Vergara's esophagus type: without dysplasia QualifiedCode(s): K22.70 - Vergara's esophagus without dysplasia PLAN: Assessment & Plan Assessment/Plan (1) Barretts esophagus: QUALIFIERS: Vergara's esophagus type: without dysplasia Qualified Code(s): K22.70 - Vergara's esophagus without dysplasia PLAN: (1) Barretts esophagus: Status: Chronic Qualifiers: Vergara's esophagus type: without dysplasia Qualified Code(s): K22.70 - Vergara's esophagus without dysplasia Comment: ON PROTONIX Plan: We discussed his EGD and colonoscopy findings, focusing on Vergara's and the increased risk for esophageal cancer. I thought he was on omeprazole but apparently he wasn't, so Irx'd pantoprazole 40 mg QAM to be taken indefinitely.We will repeat EGD in one yr for long segment Vergara's. Due to his extensive intestinal metaplasia from ablation because it makes it very difficul t in order to perform surveillance of his esophagus. Repeat colonoscopy 5 yrs. f/u 6 months. 12/30/24 1149 Cosigner Signature (if applicable): CC: Dr. Adriel Khan MD; Pablo Friend, DO~ Signed [facility]06-03-2025 [facility]05-19-2025 Telephone encounter Note* Telephone Encounter - Juana Michel RN - 12/15/2024 11:47 AM EDT 12/09/24 OV from [facility] scanned to chart for review. Juana Michel RN [facility]05-19-2025 Miscellaneous Notes* Telephone Encounter - Juana Michel RN - 12/15/2024 11:47 AM EDT 12/09/24 OV from [facility] scanned to chart for review. Juana Michel RN documented in [facility] Progress [facility] [address] [place] [address] OFFICE VISIT Date of Service: 12/09/24 MR#: [id number] Acct: [id number] Name: ROGER MART YARELI Rep #: [id number] : 1955 Provider: Dr. 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 Near syncope Bradycardia [...] Procedure performed by: Abdirashid Nichols Lot number: [id number] Pathology Transcriptionist: [employer] date: 02/26/27 Dose of injection: 1 mL Site of injection: Sub-Q Medication Given: Yes Is this a patient provided medication?: No Office Meds Prolia 60 mg/mL subcutaneous syringe Performing Provider: Rodríguez Portillo MD Performing Location: [facility] Administered by: Abdirashid Nichols RN on 12/09/24 11:38 Dose Route Admin Location Dispensed Lot Number Expiration Date NDC Pathology Transcriptionist 60 mg subcut Right Arm 1 mL [id number] 02/26/27 85180-457-23 [employer] Results POC A1C POC A1C 5.3 [...] diabetes mellitus: Status: Chronic Qualifiers: Diabetes mellitus termite control representative insulin use: without termite control representative use Diabetesmellitus complication status: without complication Qualified [...] current use of insulin E11.9 Diabetes mellitus termite control representative insulin use: without long-term use Diabetes mellitus complication status: without complication Additional Codes Extra Time Spent - Extra Time Spent: G2211 (G2211) 12/09/24 1210 Date _ Rodríguez Qiuigncolby Signature: Date (if applicable) CC: Dr. Adriel Khan MD ~ 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 December 09, 2024 8:48am Essential hypertension chronic Ma y 2024 8:48am Osteoporosis chronic December 09 11:17am Type 2 diabetes mellitus chronic December 09, 2024 11:17am Barretts esophagus chronic December 302024 10:55am Smoking greater than 40 pack years acute January 20, 2025 9:34am Thrush, oral acute January 20, 2 025 9:34am Hypoxia chronic January 20 9:34am Lung nodule chronic January 20 9:34am Obstructive sleep apnea chronic J une 2024 9:34am Pulmonary hypertension chronic Ju ne 2024 9:34am Stage 1 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 chronic January 20, 2025 9:34am [facility] Work Phone: 1(868) 664-698105-13-2025 Evaluation note* Diagnosis Onset Date Resolution Status Admit Date Chronic anticoagulation acute M ay 2024 8:48am Atrial fibrillation and flutter 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 December 09, 2024 8:48am Essential hypertension chronic Ma y 2024 8:48am Osteoporosis chronic December 09 11:17am Type 2 diabetes mellitus chronic December 09, 2024 11:17am Barretts esophagus chronic December 302024 10:55am Smoking greater than 40 pack years acute January 20, 2025 9:34am Thrush, oral acute January 20, 2 025 9:34am Hypoxia chronic January 20 9:34am Lung nodule chronic January 20 9:34am Obstructive sleep apnea chronic J une 2024 9:34am Pulmonary hypertension chronic Ju ne 2024 9:34am Stage 1 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 chronic January 20, 2025 9:34am Chronic anticoagulation acute A ugust 2024 8:47am Atrial fibrillation and flutter 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 March 04, 2025 8:47am Essential hypertension chronic Au mona 2024 8:47am [facility] Work Phone: 1(197) 978-441905-13-2025 Evaluation note* Diagnosis Onset Date Resolution Status Admit Date Chronic anticoagulation acute M ay 2024 8:48am Atrial fibrillation and flutter 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 rgicelda December 09, 2024 8:48am Essential hypertension chronic Ma y 2024 8:48am Osteoporosis chronic December 09 11:17am Type 2 diabetes mellitus chronic December 09, 2024 11:17am Barretts esophagus chronic December 302024 10:55am Smoking greater than 40 pack years acute January 20, 2025 9:34am Thrush, oral acute January 20, 2 025 9:34am Hypoxia chronic January 20 9:34am Lung nodule chronic January 20 9:34am Obstructive sleep apnea chronic J une 2024 9:34am Pulmonary hypertension chronic Ju ne 2024 9:34am Stage 1 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 chronic January 20, 2025 9:34am Chronic anticoagulation acute A ugust 2024 8:47am Atrial fibrillation and flutter 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 Note Date/Time December 09, 2024 12:10 pm [facility] [address] [place] [address] OFFICE VISIT Date of Service: 12/09/24 MR#: [id number] Acct: [id number] Name: ROGER MART III Rep #: [id number] : 1955 Provider: Dr. 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 Near syncope Bradycardia [...] nourished Orientation: alert, awake and oriented x3 [facility] Head: normal to inspection Ears: hearing grossly [...] Procedure performed by: Abdirashid Nichols Lot number: [id number] Pathology Transcriptionist: [employer] date: 02/26/27 Dose of injection: 1 mL Site of injection: Sub-Q Medication Given: Yes Is this a patient provided medication?: No Office Meds Prolia 60 mg/mL subcutaneous syringe Performing Provider: Rodríguez Portillo MD Performing Location: [facility] Administered by: Abdirashid Nichols RN on 12/09/24 11:38 Dose Route Admin Location Dispensed Lot Number Expiration Date ND Pathology Transcriptionist 60 mg subcut Right Arm 1 mL [id number] 02/26/27 22539-903-99 [employer] Results POC A1C POC A1C 5.3 [...] diabetes mellitus: Status: Chronic Qualifiers: Diabetes mellitus termite control representative insulin use: without long-term use Diabetesmellitus complication status: without complication Qualified [...] current use of insulin E11.9 Diabetes mellitus termite control representative insulin use: without termite control representative use Diabetes mellitus complication status: without complication Additional Codes Extra Time Spent - Extra Time Spent: G2211 (G2211) 12/09/24 1210 <Electronically signed by Rodríguez Portillo MD> Date _ Rodríguez Portillo MD Cosigner Signature: Date (if applicable) CC: Dr. Adriel Khan MD ~ [facility] [employer] Work Phone: 1(905) 308-713205-08-2025 Instructions* Patient Instructions* Dwayne Wells MD - 12/04/2024 9:31 AM EDT We discussed your atrial fibrillation and atrial flutter: - Your EKG today shows atrial flutter, a rhythm related to atrial fibrillation. This may explain your recent elevated heart rate (104 bpm). - I recommend a cardioversion to restore your heart to normal rhythm. I will send a note to the [facility] to coordinate this procedure. They will contact you to schedule it. If you encounter difficulties with scheduling or prefer, we can arrange for the procedure at [facility] instead. - Before the cardioversion, your INR [...] Next steps: - Await contact from the [facility] to schedule your cardioversion. If [...] any questions or concerns. documented in [facility] History of Present illness Narrative* Dwayne Wells MD - 12/04/2024 9:00 AM EDT PRIMARY CARE PHYSICIAN: [address] [place] [address] Patient Care Team: Adriel Khan MD as PCP - General (Internal Medicine) Dwayne Wells MD as Specialty Senior Mortgage Loan Processor (Cardiology) Tray Santiago MD as Specialty Senior Mortgage Loan Processor (Cardiology) Pablo Pichardo DO as Specialty Senior Mortgage Loan Processor (Gastroenterology) Dash Uriarte as Specialty Senior Mortgage Loan Processor (Pulmonary Disease) Franky Galloway APRN.CNP as Nurse Practitioner (Cardiology) CHIEF COMPLAINT: Follow up for arrhythmia HISTORY OF PRESENT ILLNESS: Mr. Mart is a 69 year old male who presents today for a cardiovascular medicine follow-up visit. Recording using ambient AI software for draft documentation of the visit was discussed with the patient/authorized sales representative; all questions welcomed and answered. Patient/authorized sales representative agreed to proceed History from previous notes, edited as needed and/or generated by dictation with use of AI.: Patient Overview: Mr. Mart has a long history of atrial fibrillation, likely since the . Initially, it was symptomatic and refractory to medical therapy. In 2007, he underwent atrial fibrillation catheter ablation at [facility], which was complicated by an acute [...] redo catheter ablation in September 2015 at [facility], which also targeted multiple atypical left atrial [...] therapy, leading to a catheter ablation at [facility] in 2007. This procedure was complicated [...] a redo catheter ablation in 09/2015 at [facility], whichtargeted multiple atypical left atrial arrhythmias, including [...] prompting him to visit the ED at [facility]. He was monitored for about 7 [...] the care of Dr. Dash Uriarte, a unit reactor operator, and is using CPAP therapy at night. [...] long-term use warfarin; indication: stroke prevention AF; [id number] = 2 At risk for stroke [id number] = 2 (HTN, DM); on oral anticoagulation therapy Atrial flutter (HCC) Degenerative joint disease involving multiple joints Essential hypertension Fracture of neck of femur (HCC) Gastroesophageal reflux disease Gout diagnosed 2001 Hypogonadism in male halfway current use of antiarrhythmic drug dofetilide (Tikosyn); indication: symptomatic AF or atrial flutter Lung nodule On long-term drug therapy high risk medication: antiarrhythmic drug [...] CARDIOVERSION, ELECTIVE, ELECTRICAL 2007 CATHETER, ABLATION 05/25/2008 [facility], Dr. Carlos Huggins ECHOCARDIOGRAM 04/06/2016 normal LV size and systolic fxn; LVEF 55-60%; no significant valvular abnormalities IR VENOUS SALESPERSON FASHION ACCESSORIES 05/28/2008 unsuccessful angioplasty attempts at right common [...] Artery Disease Mother Diabetes Mother Heart Mother KS & stents Asthma Sister Prostate Cancer Paternal Uncle ALLERGIES: ALLERGIES Allergen Reactions Insect Extracts Swelling Med-Hist Swelling SECONOL Secobarbital Other: See Comments Succinylcholine Swelling MEDICATIONS: dilTIAZem CD (CARDIZEM CD, CARTIA XT) 240 mg 24 hr capsule Take 1 capsule by mouth every 12 hours. ampllzvfyjm-wvvkoqlnf-xxzffeeb (TRELEGY ELLIPTA) 100-62.5-25 mcg inhalation powder Glswdjsqlcp-Mutgozidm-Isvrucug (Trelegy Ellipta) 100-62.5-25 mcg blister with device [...] 40 mg by mouth once daily. 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 - Will coordinate with [facility] for cardioversion scheduling. - Ensure [...] will need to coordinate these procedures. 2. halfway current use of antiarrhythmic drug (Z79.899) Encounter [...] with typical AFib symptoms. EKG in the [facility] reportedly showed normal rhythm (but I [...] 1 year (around 12/04/2025) for Dr. Wells, [place] office. Dwayne Wells MD 12/04/2024 Medical Decision [...] the same thing . documented in this encounterReg[facility]-2025 NoteHNO ID: [id number] Author: DWAYNE WELLS MD Service: ? Author Type: Physician Type: Progress Notes Filed: 12/04/2024 09:41 Note Text: PRIMARY CARE PHYSICIAN: [address] [place] [address] Patient Care Team: Adriel Khan MD as PCP - General (Internal Medicine) Dawyne Wells MD as Specialty Senior Mortgage Loan Processor (Cardiology) Tray Santiago MD as Specialty Senior Mortgage Loan Processor (Cardiology) Pablo Pichardo DO as Specialty Senior Mortgage Loan Processor (Gastroenterology) Dash Uriarte as Specialty Senior Mortgage Loan Processor (Pulmonary Disease) Franky Galloway APRN.POOJA as Nurse Practitioner (Cardiology) CHIEF COMPLAINT: Follow up for arrhythmia HISTORY OF PRESENT ILLNESS: Mr. Mart is a 69 year old male who presents today for a cardiovascular medicine follow-up visit. Recording using ambient Architurn software for draft documentation of the visit was discussed with the patient/authorized sales representative; all questions welcomed and answered. Patient/authorized sales representative agreed to proceed History from previous notes, edited as needed and/or generated by dictation with use of AI.: Patient Overview: Mr. Mart has a long history of atrial fibrillation, likely since the 1980s. Initially, it was symptomatic and refractory to medical therapy. In 2007, he underwent atrial fibrillation catheter ablation at [facility], which was complicated by an acute [...] redo catheter ablation in September 2015 at [facility], which also targeted multiple atypical left atrial [...] therapy, leading to a catheter ablation at [facility] in 2007. This procedure was complicated [...] a redo catheter ablation in 09/2015 at [facility], which targeted multiple atypical left atrial arrhythmias, [...] diaphoresis, or other symptom (more content not included)...[facility]05-08-2025 NoteHNO ID: [id number] Author: MIS NG MA Service: ? Author Type: Scruff Worker Type: Progress Notes Filed: 12/04/2024 09:41 Note Text: Patient complains of high rate of pulse was recently visit for the same thing . [facility]03-19-2025 Evaluation note* Diagnosis Onset Date Resolution Status Admit Date Obstructive sleep apnea acute [facility] 2024 10:37am Thrush, oral acute October 15, 2024 10:37am Hypoxia chronic October 15 10:37am Lung nodule chronic October 15 025 10:37am Pulmonary hypertension [facility] 2024 10:37am Stage 1 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 [facility] October 15, 2024 10:37am Chronic anticoagulation acute 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 December 09, 2024 8:48am Essential hypertension chronic [facility] 2024 8:48am Osteoporosis chronic December 09 11:17am Type 2 diabetes mellitus chronic December 09, 2024 11:17am [facility] Work Phone: 1(202) 629-182303-19-2025 Evaluation note* Diagnosis Onset Date Resolution Status Admit Date Obstructive sleep apnea acute [facility] 2024 10:37am Thrush, oral acute October 15, 2024 10:37am Hypoxia chronic October 15 10:37am Lung nodule chronic October 15 025 10:37am Pulmonary hypertension [facility] 2024 10:37am Stage 1 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 chronic October 15, 2024 10:37am Chronic anticoagulation acute 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 December 09, 2024 8:48am Essential hypertension chronic Ma y 2024 8:48am Osteoporosis chronic December 09 11:17am Type 2 diabetes mellitus chronic December 09, 2024 11:17am Barretts esophagus chronic December 302024 10:55am [facility] Work Phone: 1(980) 427-274203-19-2025 Evaluation note* Diagnosis Onset Date Resolution Status Admit Date Obstructive sleep apnea acute [facility] 2024 10:37am Thrush, oral acute October 15, 2024 10:37am Hypoxia chronic October 15 10:37am Lung nodule chronic October 15 10:37am Pulmonary hypertension chronic [facility] 2024 10:37am Stage 1 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 chronic October 15, 2024 10:37am Chronic anticoagulation acute 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 December 09, 2024 8:48am Essential hypertension chronic Ma 2024 8:48am Osteoporosis chronic December 09 11:17am Type 2 diabetes mellitus chronic December 09, 2024 11:17am Barretts esophagus chronic December 302024 10:55am Obstructive sleep apnea acute [facility] 2024 9:34am Smoking greater than 40 pack years acute January 20, 2025 9:34am Thrush, oral acute January 20 025 9:34am Hypoxia chronic January 20 9:34am Lung nodule chronic January 20 9:34am Pulmonary hypertension chronic [facility] 2024 9:34am Stage 1 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 chronic January 20, 2025 9:34am 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 December 09, 2024 8:48am Essential hypertension chronic Ma y 2024 8:48am Osteoporosis chronic December 09 11:17am Type 2 diabetes mellitus chronic December 09, 2024 11:17am Barretts esophagus chronic December 302024 10:55am Smoking greater than 40 pack years acute January 20, 2025 9:34am Thrush, oral acute January 20 025 9:34am Hypoxia chronic January 20 9:34am Lung nodule chronic January 20 9:34am Obstructive sleep apnea chronic [facility] 2024 9:34am Pulmonary hypertension chronic [facility] 2024 9:34am Stage 1 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 chronic January 20, 2025 9:34am [facility] Work Phone: 1(976) 668-456701-20-2025 Evaluation note* Diagnosis Onset Date Resolution Status Admit Date Atrial fibrillation and flutter 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 Work Phone: 1([phone]) 142-454412-19-2024 [facility]12-03-2024 Evaluation note* Diagnosis Onset Date Resolution Status Admit Date Barretts esophagus chronic Decemb er 2023 8:46am Daytime hypersomnia acute Decem deepthi 2023 11:07am Hypoxia chronic July 16, 2024 11:07am Lung nodule chronic June 11:07am [facility] 11:07am Stage 1 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 chronic July 16 11:07am Barretts esophagus chronic Decemb er 2023 8:37am Atrial fibrillation and flutter chronic August 18 1:59pm Essential hypertension [facility] 2024 1:59pm halfway (current) use of anticoagulants chronic August 18 1:59pm History of cardiac radiofrequency ablation 2008 resolved August 18, 2024 1:59pm Obstructive sleep apnea acute [facility] 2024 10:37am Thrush, oral acute October 15, 2024 10:37am Hypoxia chronic October 15 10:37am Lung nodule chronic October 15 025 10:37am Pulmonary hypertension chronic [facility] 2024 10:37am Stage 1 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 chronic October 15, 2024 10:37am [facility] Work Phone: 1(395) 327-427310-18-2024 [facility]09-25-2024 [facility]05-10-2024 Telephone encounter Note* Telephone Encounter - Dwayne Wells MD - 12/07/2023 6:17 PM EDT [facility] General Electrophysiology (EP) Please let Mr. Mart know that the blood tests were ok. Please send a copy of the test results to his PCP. Dwayne Wells MD December 07, 2023 6:19 PM [facility]05-10-2024 Miscellaneous Notes* Telephone Encounter - Dwayne Wells MD - 12/07/2023 6:17 PM EDT [facility] General Electrophysiology (EP) Please let Mr. Mart know that the blood tests were ok. Please send a copy of the test results to his PCP. Dwayne Wells MD December 07, 2023 6:19 PM documented in this encounterReg[facility] Nurse Note* Vero Joseph MA - 12/06/2023 10:08 AM EDT No cardiac complaints today. Vero Joseph MA [facility]05-09-2024 Nurse Note* Vero Joseph MA - 12/06/2023 10:08 AM EDT No cardiac complaints today. Vero Joesph MA documented in this encounterRegency [facility]-20[facility] History of Present illness Narrative* Dwayne Wells MD - 12/06/2023 10:00 AM EDT PRIMARY CARE PHYSICIAN: Neeraj Daugherty [address] [facility] [address] Patient Care Team: Adriel Khan MD as PCP - General (Internal Medicine) Mao, Dwayne Leung MD as Specialty Senior Mortgage Loan Processor (Cardiology) Group, Nichol Martinez as Specialty Senior Mortgage Loan Processor (Cardiology) Tray Santiago MD as Specialty Senior Mortgage Loan Processor (Cardiology) Friend, Pablo Campbell DO as Specialty Senior Mortgage Loan Processor (Gastroenterology) CHIEF COMPLAINT: Follow up for arrhythmia [...] He underwent atrial fibrillation catheter ablation at [facility] in 2007. The procedure was complicated [...] rapid ventricular rates. He was admitted to [facility] in 08/2014 for loading of the antiarrhythmic [...] catheter ablation procedure in September 2015 at [facility]. The procedure involved redo catheter [...] symptoms with tachycardia, palpitations. He presented to [facility], was treated and released. 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 Carlos Huggins ECHOCARDIOGRAM 04/06/2016 normal LV size and systolic fxn; LVEF 55-60%; no significant valvular abnormalities IR VENOUS SALESPERSON FASHION ACCESSORIES 05/28/2008 unsuccessful angioplasty attempts at right common [...] Artery Disease Mother Diabetes Mother Heart Mother KS & stents Asthma Sister Prostate Cancer Paternal [...] 40 mg by mouth once daily. Fish Oil-[place]-3 Fatty Acids 300-1,000 mg cap Take 1 [...] 72 bpm; moderately severe first-degree AV block (AL 352 ms); normalQRS duration 84 ms; QTc 503 ms, appropriate on dofetilide; criteria for septal infarct not new finding; compared with previous EKGs, first- degree AV block has progressed I have personally reviewed the Electrocardiogram. I spent a total of 30 minutes on the date of the service which included preparing to see the patient, [id number] patient care, completing clinical documentation, obtaining and/or [...] (HCC) - ICD9: 427.32, ICD10: I48.92 3. 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 He [...] with VKA drugs, such as warfarin, the [employer] 2012 Guideline recommends [...] GH, et al. Chest 2012, 141:7S-47S Aguilar RA, et al. [facility] 2017, 70: 252-289 Return in about 1 year (around 12/05/2024) for Dr. Wells, POAdrian office. Dwayne Wells MD 12/06/2023 Medical Decision Making: Problems: Moderate: 2+ stable chronic illnesses Data: Unique source(s) for external note(s) reviewed: 1 Unique test result(s) reviewed: 2 Unique test(s) ordered: 2 Risk: Moderate: Moderate risk from testing/treatment, Drug management and Decision on minor surgery w/ risk factors Medical Decision Making Level: 4 - Moderate documented in this encounterReg[facility]04-23-2024 Procedure [facility]04-23-2024 Procedure [facility]03-19-2024 History and physical note Author Pablo Friend [facility] October 16, 2023 1:32pm Note Date/Time October 16, 2023 1:3 2pm [facility] Medical Records Department [address] [place] [address] History & Physical Exam 10/16/23 1331 MR#: [id number] Acct: [id number] Name: ROGER MART III Rep #:[id number] : 1955 68 From: Pablo Friend PCP: Jahaira Cerna DO Status:REG S DC Location: [place] [address] History and Physical Date of Admission: 10/16/23 ROGER MART, is a 67 M who presents to the office today for follow up. *BGI established 05.02.22 without GI complaints. History of colonic polyps, large hiatal hernia and Veragra?s esophagus.?EGD and colonoscopy 06.28.22?EGD long-segment Vergara?s esophagus; [...] masses and nontender Quality Reporting Tobacco Screening ([facility] 138) Smoking Status: Former smoker Assessment [...] Jahaira Cerna DO; Pablo Pichardo DO~ Signed [facility] Work Phone: 1(193) 432-462503-19-2024 Procedure [facility] 09-18-2023 History and physical note Author Pablo Friend [facility] September 18, 2023 12:47pm Note Date/Time September 18, 2023 12:47pm [facility] Medical Records Department [address] [place] [address] History & Physical Exam 09/18/23 1247 MR#: [id number] Acct: [id number] Name: ROGER MART III Rep #:[id number] : 1955 68 From: Pablo Pichardo DO PCP: Jahaira Cerna DO Status:REG S DC Location: [place] [address] History and Physical Date of Admission: 09/18/23 [...] masses and nontender Quality Reporting Tobacco Screening ([facility] 138) Smoking Status: Former smoker Assessment [...] no clinicalchanges since date of exam. 09/18/23 0583 <Electronically signed by Pablo Pichardo DO> Cosigner Signature (if applicable): CC: Jahaira Cerna DO; Pablo Pichardo DO~ Signed [facility] Work Phone: 1(117) 391-371502-20-2024 Procedure [facility] 08-15-2023 History and physical note Author Pablo Friend [facility] August 15, 2023 10:21am Note Date/Time August 15, 2023 1 0:21am [facility] Medical Records Department [address] [place] [address] History & Physical Exam 08/15/23 1021 MR#: [id number] Acct: [id number] Name: ROGER MART III Rep #:[id number] : 1955 68 From: Pablo Friend PCP: Jahaira Cerna DO Status:REG S DC Location: [place] [address] History and Physical Date of Admission: 08/15/23 [...] masses and nontender Quality Reporting Tobacco Screening ([facility] 138) Smoking Status: Former smoker Assessment [...] Jahaira Cerna DO; Pablo Pichardo DO~ Signed [facility] Work Phone: 1([phone]) 756-202101-17-2024 Procedure [facility] 08-15-2023 Procedure [facility]12-12-2023 Procedure note [facility]12-12-2023 Procedure [facility] 01-15-[address] Daniel [facility] January 15, 2023 10:12pm Note Date/Time January 15, 2023 8:42 pm [facility] Medical Records Department [address] [place] [address] Emergency Department Summary 01/15/23 MR#: [id number] Acct: [id number] Name: ROGER MART III Rep #:[id number] : 1955 67 From: Sadi Daniel MD PCP: Jahaira Cerna, Status:REG E R Location: ED HPI History [...] dose. Overall the patient has asymptomatic coagulopathy. 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 Near syncope Osteoporosis Paroxysmal atrial fibrillation Paroxysmal atrial tachycardia Pulmonary emphysema Scabies Shortness of breath on exertion Tachycardia Tobacco dependence Type 2 diabetes mellitus Home Medications omega 5-onc-hme-fish oil 500 mg (200mg-300mg)-1,000 mg capsule 1 [...] mg/mL subcutaneous syringe (Prolia) 60 mg subcut [id number] #1 mL 10/12/22 [Rx Last Taken Unknown] [...] shortness of breath or wheezing #8.5 grams 12/14/22 [Rx Last Taken Unknown] pantoprazole 40 mg [...] % (Auto) 56.7 Lymph % (Auto) 24.1 Pettis % (Auto) 11.1 H Eos % (Auto) [...] (Auto) Neut % (Auto) Lymph % (Auto) Pettis % (Auto) Eos % (Auto) Baso % [...] Prolia 60 mg/mL syringe 60 mg subcut [id number] Qty: 1 1RF Breztri Aerosphere 160-9-4.8 mcg/actuation [...] mg PO DAILY Qty: 90 3RF omega 9-jql-wnd-fish oil 1 EACH capsule 1 ea PO [...] Primary Care Provider: Jahaira Cerna Referrals: Jahaira Cerna, [Primary Care Provider] - 3-5 Days Disposition Disposition: Home, Self Care What to do if you have Problems For any increased pain, shortness of breath, bleeding, nausea or vomiting, chestpain, or any unexpected problems, contact your Primary Care Provider. Call [facility] ([phone]) or report to the closest Emergency Room. Call 911 if necessary. 01/15/232211 <Electronically signed by Sadi Daniel MD> Cosigner Signature (if applicable): CC: Jahaira Cerna DO ~ Signed [facility] Work Phone: 1(513) 525-366605-09-2023 History of Present illness Narrative* Dwayne Wells MD - 12/05/2022 11:00 AM EDT PRIMARY CARE PHYSICIAN: Neeraj Daugherty [address] [place] [address] Patient Care Team: Neeraj Daugherty MD as PCP - General (Family Medicine) Parveen Portillo as Specialty Senior Mortgage Loan Processor (Cardiology) Dwayne Wells MD as Specialty Senior Mortgage Loan Processor (Cardiology) CHIEF COMPLAINT: Follow up for arrhythmia [...] therapy. He underwent AF catheter ablation at [facility] in 2007. The procedure was complicated [...] rapid ventricular rates. He was admitted to [facility] in 08/2014 for loading of the [...] ablation procedure in September 2015 here at [facility]. The procedure involved redo catheter [...] mother having open heart surgery here at [facility] recently. He denies chest pain, [...] tachycardia, palpitations. He states he presented to [facility], was treated and released. The diltiazem dose was increased from 120 mg to 180 mg daily.He states he has done well since then. He denies chest pain, shortness of breath, orthopnea, PND, syncope. I have confirmed and edited as necessary, the PFSH and ROS obtained by others. 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 Carlos Huggins ECHOCARDIOGRAM 04/06/2016 normal LV size and systolic fxn; LVEF 55-60%; no significant valvular abnormalities IR VENOUS SALESPERSON FASHION ACCESSORIES 05/28/2008 unsuccessful angioplasty attempts at right common [...] Artery Disease Mother Diabetes Mother Heart Mother KS & stents Asthma Sister Prostate Cancer Paternal [...] (COUMADIN) 5 mg tablet As directed Fish Oil-[place]-3 Fatty Acids 300-1,000 mg cap Take 1 [...] Sinus rhythm 64 bpm; first-degree AV block (AL 302 ms); normal QRS duration 76 ms; QTc 443 ms, appropriate on dofetilide I have personally reviewed the Electrocardiogram. I spent a total of 30 minutes on the date of the service which included preparing to see the patient, [id number] patient care, completing clinical documentation, obtaining and/or [...] - ICD9: 785.1, ICD10: R00.2 stable 5. halfway current use of antiarrhythmic drug - ICD9: [...] Level: 3 - Low documented in this encounterReg[facility]04-23-2020 History of Past illness Narrative* Problem Noted Date Resolved Date Atrial fibrillation 11/20/2019 Overview: recurrent; symptomatic; s/p AF catheter ablation 04/2008 [facility]; complicated by acute DVT right common femoral and external iliac veins, with subsequent complete occlusion documented as of this encounter (statuses as of 11/30/2020) [facility]04-23-2020 History of Past illness Narrative* Problem Noted Date Resolved Date Atrial fibrillation 11/20/2019 Overview: recurrent; symptomatic; s/p AF catheter ablation 04/2008 [facility]; complicated by acute DVT right common femoral and external iliac veins, with subsequent complete occlusion documented as of this encounter (statuses as of 12/06/2022) [facility] Author Kunal Chang [facility] Note Date/Time December 30, 2024 11:50 am [facility] Medical Records Department [address] [place] [address] Pre-Anesthesia Evaluation 12/30/24 1142 MR#: [id number] Acct: [id number] Name: ROGER MART III Rep #:[id number] : 1955 69 From: Kunal Chang MD PCP: Dr. Adriel Khan MD Status:REG SD C Y Race: C Location: [place] [address]- ASA Classification* ASA Classification ASA Classification: 3 Assessment & Plan Anesthesia* Anesthesia Assessment Anesthesia Assessment: Discussed sedation and/or anesthesia options, risks, benefits, and alternatives with patient/parents/legal guardian/POA. Questions invited. The patient/parents/legal guardian/POA seems to understand and agrees to proceedwith anesthesia plan. Reviewed the physical assessment, medical history, allergy history and patient home medications list prior to surgery/procedure/anesthetic and documented any changes. Performed airway and anesthesia risk assessments. Anesthesia Type Anesthesia Type: MAC History Source History Obtained from:: Patient and Chart Anesthesia Focused Assessment* Temperature: 97.7 F Pulse Rate: 84 Blood Pressure: 118/86 Respiratory Rate: 16 Pulse Ox: 96 Oxygen Delivery Method: Room Air Airway Assessment Mouth opens: >3 cm Mallampati Score: I Teeth Condition: Missing (Patient is missing 1 bottom teeth. Rest are tight.) Neck Range of motion (ROM): Full ROM Focused Labs Anesthesia Preop lab: CBC WBC 9.8 K/mm3 (4.4-11.0) 11/25/24 16:47 11/25/24 RBC 4.82 M/mm3 (4.6-6.2) 11/25/24 16:47 11/25/24 Hgb 14.2 g/dL (13.0-16.5) 11/25/24 16:47 11/25/24 Hct 42.6 % (40-54) 11/25/24 16:47 11/25/24 Plt Count 302 K/mm3 (150-450) 11/25/24 16:47 11/25/24 CHEMISTRY Potassium 4.1 mmol/L (3.3-5.1) 12/16/24 06:35 12/16/24 Sodium 134 mmol/L (133-145) 12/16/24 06:35 12/16/24 Magnesium 2.6 mg/dL (1.6-2.6) 05/30/24 07:15 05/30/24 Phosphorus 2.3 mg/dL (2.5-4.9) L 05/11/24 06:35 05/11/24 BUN 13 mg/dL (4-19) 12/16/24 06:35 12/16/24 Creatinine 1.15 mg/dL (0.70-1.20) 12/16/24 06:35 12/16/24 Glucose 94 mg/dL (70-99) 12/16/24 06:35 12/16/24 POC Glucose 92 mg/dL (74-106) 07/17/24 09:33 07/17/24 TSH 2.45 uIU/mL (0.358-3.74) 05/22/19 09:00 COAG PT 25.3 SECONDS (11.7-14.9) H 12/16/24 06:35 11/28 INR 2.0 12/06/23 10:48 12/06/23 Pre-Assessment Diagnosis/Proposed Procedure Planned Operative Procedure(s): EGD Anesthesia History Anesthesia History - correctional nurse: Anesthesia History - correctional nurse Hx Hospitalization Yes: 04/2024 PNEUMONIA 12/25/24 10:54 Any Problems With Anesthesia No 12/25/24 10:54 Cholinesterase deficiency No 12/25/24 10:54 You/Your Family Experience No 12/25/24 10:54 fever (hyperthermia) with Relationship Recent Exposure to Contagious No 12/30/24 11:20 Disease Does patient have nerve No 12/25/24 10:54 stimulator Patient instructed to have device shut off --Does patient have Pacemaker No 12/30/24 11:20 or ICD? When Was Last Pacemaker Check QUESTION #4 FULL TEXT: You/Your Family Experience fever (hyperthermia) with Anesthesia Last Oral Intake Last Oral intake: Last Oral Intake NPO since 23:00 12/30/24 11:20 Meds taken in AM with sips of Yes 12/30/24 11:20 water? Meds patient instructed to take am of surgery Any additional information?: Yes Meds taken in AM with sips of water?: Yes PONV PONV - correctional nurse: PONV - correctional nurse Female No 12/25/24 10:54 HX of Motion Sickness No 12/25/24 10:54 HX of N/V After Surgery No 12/25/24 10:54 Non-Smoker Yes 12/25/24 10:54 Duration of Surgery greater No 12/25/24 10:54 than 60 minutes Number of Risk Factors 1 12/25/24 10:54 PONV Score Low Risk 12/25/24 10:54 Height & Weight Height & Weight: Anesthesia: Height & Weight Height 5 ft 7 in 12/30/24 11:20 Weight: 75 kg 12/30/24 11:20 Body Mass Index (BMI) 25.9 12/30/24 11:20 Respiratory Assessment Respiratory Assessment - correctional nurse: Respiratory Tract Infection Hx - correctional nurse Hx Respiratory Tract Infection No 12/25/24 10:54 STOP Sleep Apnea STOP Sleep Apnea - correctional nurse: STOP Sleep Apnea - correctional nurse Hx Hypertension Yes: CONTROLLED WITH MEDS 12/25/24 10:54 Hx Sleep Apnea Yes 12/25/24 10:54 CPAP No 12/28/24 21:34 BIPAP No 12/25/24 10:54 Do you snore loudly (louder than talking or can be heard Do you often feel tired/ fatigued/ sleepy during daytime? Has anyone observed you stop breathing during sleep? STOP Results Positive 12/25/24 10:54 QUESTION #5 FULL TEXT : Do you snore loudly (louder than talking or can be heard through closed doors)? 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 Specify any problems Hx of Preganancy in last 3 N/A 12/25/24 10:54 Months Nurse Filling Out Transfusion MGRIFFITH 12/25/24 10:54 & Questions: Date: 12/25/24 12/25/24 10:54 Time: 10:58 12/25/24 10:54 Patient unable to answer at this time (ie. confused, unrespo /Reproduction History /Reproductive History - correctional nurse: /Reproductive Hx- correctional nurse Hx Now Gestational Age (in weeks): EDC: Hx Hx Para Hx Section SAB No 07/16/24 10:49 Active Medications Active Medications: Current Medications Generic Name Dose Route Start Last Admin Trade Name Freq PRN Reason Stop Dose Admin Lactated Ringer's 1,000 mls @ 15 mls/hr 12/30/24 11:15 12/30/24 11:27 IV 15 mls/hr .Q48H LOY Administration PFSH Medical History Wears hearing aid Arthritis Easy bruising On home oxygen therapy CPAP (continuous positive airway pressure) dependence Sleep apnea History of Holter monitoring Acute and chronic respiratory failure with hypoxia History of echocardiogram Injury of back History of hiatal hernia Shortness of breath on exertion Former smoker Leg cramps Cardiology follow-up encounter Pulmonary emphysema Hyperlipidemia Colon polyps Barretts esophagus Scabies Atrial fibrillation and flutter Osteoporosis Essential hypertension History of DVT (deep vein thrombosis) Paroxysmal atrial tachycardia Paroxysmal atrial fibrillation GERD (gastroesophageal reflux disease) Gout Type 2 diabetes mellitus Hypertension 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 Near syncope Bradycardia Tobacco dependence Afib Home Medications ?Medication ?Instructions ?Recorded ?Last Taken ?Type denosumab 60 mg/mL subcutaneous 60 mg subcut [id number] osteoperosis 11/29/23 Unknown Rx syringe (Prolia) #1 mL omega-3 fatty acids 1,000 mg 1,000 mg PO DAILY supplem ent 02/28/24 12/27/24 History capsule allopurinol 300 mg tablet 300 mg PO DAILY gout 4 07/17/24 History cholecalciferol (vitamin D3) 50 50 mcg PO QDAY 5 Unknown History mcg (2,000 unit) capsule dofetilide 500 mcg capsule 500 mcg PO BID heart #180 caps 08/18/24 Unknown Rx furosemide 40 mg tablet 40 mg PO DAILY edema #90 tab s 08/18/24 Unknown Rx potassium chloride 10 mEq 10 meq PO DAILY supplement #90 08/18/24 Unknown Rx tablet,extended release(part/cryst) tabs albuterol sulfate 90 mcg/actuation 2 puff inhalation Q 6H PRN 10/15/24 Unknown Rx aerosol inhaler shortness of breath or wheez ing #8.5 grams guaifenesin 1,200 mg tablet, 1,200 mg PO Q12H cough #6 0 tabs 10/15/24 Unknown Rx extended release 12 hr ipratropium 0.5 mg-albuterol 3 mg 3 ml inhalation TID PRN shortness 10/15/24 Unknown Rx (2.5 mg base)/3 mL nebulization of breath or wheezing #180 mL soln warfarin 4 mg tablet 4 mg PO QDAY #90 tabs 12/23/24 Rx fluticasone fur. 100 mcg-umeclid 1 inh inhalation Q24H #60 ea 11/21/24 Unknown Rx 62.5 mcg-vilant 25 mcg inhalat.powder (Trelegy Ellipta) pantoprazole 40 mg tablet,delayed 40 mg PO BID gerd # 60 tabs 12/12/24 12/30/24 01:30 Rx release ipratropium 0.5 mg-albuterol 3 mg 3 ml inhalation BID 12/25/24 Unknown History (2.5 mg base)/3 mL nebulization soln diltiazem HCl 240 mg 240 mg PO BID 12/26/2412/30 01:30 History capsule,extended release 24 hr Allergy/AdvReac Type Severity Reaction Status Date / Time secobarbital sodium (From Allergy Unknown Verified 12/30/24 11:18 Seconal) venom-honey bee (bee venom Allergy Anaphylaxis Verified 12/30/24 11:18 (honey bee)) Family History Mother Diabetes Hypertension Myocardial infarction CAD (coronary artery disease) Father Hypertension Heart disease Diabetes Myocardial infarction CAD (coronary artery disease) Surgical History History of esophagogastroduodenoscopy (EGD) History of hip replacement Status post peripheral artery angioplasty History of left hip replacement History of cardiac radiofrequency ablation (~04/2008) Social History household members: other details: His mother lives with him. Smoking Status: Former smoker Tobacco: How many years used: 50 how long ago did patient quit smokin alcohol intake: current alcohol intake frequency: a few times a month Alcohol type: beer substance use type: does not use caffeine: No Review of Systems (Anesthesia) ROS Narrative System reviewed and no additional complaints, except as documented. 12/30/24 1150 <Electronically signed by Kunal jordan MD> Date _ Kunal Chang MD Cosigner Signature: Date CC: ~ Signed [facility] Work Phone: Consult note Author Td Wade [facility] Note Date/Time December 30, 2024 12:33 pm [facility] Medical Records Department [address] [place] [id number] Anesthesia Postop Eval I 12/30/24 1232 MR#: [id number] Acct: [id number] Name: ROGER MART III Rep #:[id number] : 1955 69 From: Td Wade PCP: Dr. Adriel Khan MD Status:REG SD C Y Race: C Location: [place] [address] Anesthesia: Postop Eval I Current Vital Signs Temperature: 97 F Pulse Rate: 14 Blood Pressure: 90/67 Respiratory Rate: 14 Pulse Ox: 97 Oxygen Delivery Method: Room Air Assessment Airway patent: Yes Spontaneous unlabored respirations: Yes Mental status: Awake and Calm nausea: No Vomiting: No Anesthesia Complication: No Fluid Hydration Crystalloid volume administer (ml): 800 Total IV fluid infused: 800 Progress Note Anesthesia document: Postop Eval 1 completed: Yes 12/30/24 1233 <Electronically signed by Td Wade > Date _ Td Marsh Signature: Date CC: ~ Signed [facility] Work Phone: Evaluation note* Diagnosis Onset Date Resolution Status Lung mass acute Stage 1 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 chronic Scabies acute Osteoporosis chronic Lung nodule acute Nicotine dependence, cigarettes, in remission acute Thrush, oral acute COPD (chronic obstructive pulmonary disease) chronic Irritant dermatitis acute Atrial fibrillation and flutter chronic Essential hypertension 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 History of cardiac radiofrequency ablation 2007 resolved [facility] Work Phone: Evaluation note* Diagnosis Onset Date Resolution Status Scabies acute Osteoporosis chronic Lung nodule acute Nicotine dependence, cigarettes, in remission acute Thrush, oral acute COPD (chronic obstructive pulmonary disease) chronic Irritant dermatitis acute Atrial fibrillation and flutter chronic Essential hypertension chron ic halfway (current) use of anticoagulants chronic History of cardiac radiofrequency ablation 2007 resolved [facility] Work Phone: Evaluation note* Diagnosis Onset Date Resolution Status Osteoporosis chronic Lung nodule acute Nicotine dependence, cigarettes, in remission acute Thrush, oral acute COPD (chronic obstructive pulmonary disease) chronic Irritant dermatitis acute Atrial fibrillation and flutter chronic Essential hypertension chron ic halfway (current) use of anticoagulants chronic History of cardiac radiofrequency ablation 2007 resolved Contusion of right lower leg, initial encounter acute Irritant dermatitis [facility] Work Phone: Evaluation note* Diagnosis Onset Date Resolution Status Contusion of right lower leg, initial encounter acute Irritant dermatitis acute [facility] Work Phone: Evaluation note* Diagnosis Onset Date Resolution Status Contusion of right lower leg, initial encounter acute Irritant dermatitis acute Barretts esophagus acute Colon polyps acute [facility] Work Phone: Evaluation note* Diagnosis Onset Date Resolution Status Barretts esophagus acute Colon polyps acute [facility] Work Phone: Evaluation note* Diagnosis Onset Date Resolution Status Barretts esophagus acute Colon polyps acute Lung nodule acute Stage 1 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 chronic [facility] Work Phone: Evaluation note* Diagnosis Onset Date Resolution Status Barretts esophagus acute Colon polyps acute Lung nodule acute Stage 1 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 chronic Barretts esophagus acute [facility] Work Phone: Evaluation note* Diagnosis Onset Date Resolution Status Lung nodule acute Stage 1 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 chronic Barretts esophagus acute Atrial fibrillation and flutter chronic Essential hypertension chron ic halfway (current) use of anticoagulants chronic History of cardiac radiofrequency ablation 2008 resolved [facility] Work Phone: Evaluation note* Diagnosis Onset Date Resolution Status Barretts esophagus acute Atrial fibrillation and flutter chronic Essential hypertension chron ic halfway (current) use of anticoagulants chronic History of cardiac radiofrequency ablation 2008 resolved Osteoporosis chronic [facility] Work Phone: Evaluation note* Diagnosis Onset Date Resolution Status Atrial fibrillation and flutter chronic Essential hypertension chron ic halfway (current) use of anticoagulants chronic History of cardiac radiofrequency ablation 2007 resolved Osteoporosis chronic Dental abscess acute Dental infection acute Sebaceous cyst acute Sebaceous cyst acute [facility] Work Phone: Evaluation note* Diagnosis Onset Date Resolution Status Atrial fibrillation and flutter chronic Essential hypertension chron ic halfway (current) use of anticoagulants chronic History of cardiac radiofrequency ablation 2008 resolved Osteoporosis chronic Dental abscess acute Dental infection acute Sebaceous cyst acute Sebaceous cyst acute Sebaceous cyst acute [facility] Work Phone: Evaluation note* Diagnosis Persistent atrial fibrillation (HCC)- Primary Atrial fibrillation Atrial flutter, unspecified type (HCC) Paroxysmal supraventricular tachycardia (HCC) Paroxysmal supraventricular tachycardia Palpitations 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 At risk for stroke Other specified personal history presenting hazards to health Anticoagulant long-term use Long-term (current) use of anticoagulants [facility] Diagnosis Onset Date Resolution Status Osteoporosis chronic Dental abscess acute Dental infection acute Sebaceous cyst acute Sebaceous cyst acute Sebaceous cyst acute Lung nodule acute Nicotine dependence, cigarettes, in remission acute COPD (chronic obstructive pulmonary disease) [facility] Work Phone: Evaluation note* Diagnosis Onset Date Resolution Status Osteoporosis chronic Dental abscess acute Dental infection acute Sebaceous cyst acute Sebaceous cyst acute Sebaceous cyst acute Lung nodule acute Nicotine dependence, cigarettes, in remission acute COPD (chronic obstructive pulmonary disease) chronic LLQ abdominal pain acute Barretts esophagus chronic Atrial fibrillation and flutter chronic Essential hypertension chron ic halfway (current) use of anticoagulants chronic History of cardiac radiofrequency ablation 2008 resolved [facility] Work Phone: Evaluation note* Diagnosis Onset Date Resolution Status Dental abscess acute Dental infection acute Sebaceous cyst acute Sebaceous cyst acute Sebaceous cyst acute Lung nodule acute Nicotine dependence, cigarettes, in remission acute COPD (chronic obstructive pulmonary disease) chronic LLQ abdominal pain acute Barretts esophagus chronic Atrial fibrillation and flutter chronic Essential hypertension chron ic halfway (current) use of anticoagulants chronic History of cardiac radiofrequency ablation 2007 resolved [facility] Work Phone: Evaluation note* Diagnosis Onset Date Resolution Status Lung nodule acute Nicotine dependence, cigarettes, in remission acute COPD (chronic obstructive pulmonary disease) chronic LLQ abdominal pain acute Barretts esophagus chronic Atrial fibrillation and flutter chronic Essential hypertension chron ic halfway (current) use of anticoagulants chronic History of cardiac radiofrequency ablation 2007 resolved [facility] Work Phone: Evaluation note* Diagnosis Onset Date Resolution Status LLQ abdominal pain acute Barretts esophagus chronic Atrial fibrillation and flutter chronic Essential hypertension chron ic halfway (current) use of anticoagulants chronic History of cardiac radiofrequency ablation 2007 resolved [facility] Work Phone: Evaluation noteNo assessment information available [facility] Work Phone: Evaluation note* Diagnosis Onset Date Resolution Status Lung nodule acute Nicotine dependence, cigarettes, in remission acute COPD (chronic obstructive pulmonary disease) chronic [facility] Work Phone: Evaluation note* Diagnosis Onset Date Resolution Status Lung nodule acute Nicotine dependence, cigarettes, in remission acute COPD (chronic obstructive pulmonary disease) chronic Barretts esophagus chronic [facility] Work Phone: Evaluation note* Diagnosis Onset Date Resolution Status Lung nodule acute Nicotine dependence, cigarettes, in remission acute COPD (chronic obstructive pulmonary disease) chronic Barretts esophagus chronic Osteoporosis chronic [facility] Work Phone: Evaluation note* Diagnosis Onset Date Resolution Status Barretts esophagus chronic Osteoporosis chronic [facility] Work Phone: Evaluation note* Diagnosis Onset Date Resolution Status Osteoporosis chronic [facility] Work Phone: Evaluation note* Diagnosis Persistent atrial fibrillation (HCC)- Primary Atrial fibrillation Atrial flutter, unspecified type (HCC) 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 Encounter for monitoring dofetilide therapy Encounter for therapeutic drug monitoring At risk for stroke Other specified personal history presenting hazards to health Anticoagulant long-term use Long-term (current) use of anticoagulants First degree atrioventricular block Paroxysmal supraventricular tachycardia (HCC) Paroxysmal supraventricular tachycardia Palpitations [facility] Diagnosis Persistent atrial fibrillation (HCC)- Primary Atrial fibrillation Atypical atrial flutter (HCC) Atrial flutter halfway current use of antiarrhythmic drug Encounter for [...] emphysema type (HCC) [facility] Author Pablo Pichardo [facility] July 10, 2023 12:42pm Note Date/Time July 10, 2023 12:42pm [facility] Medical Records Department [address] [place] [address] History & Physical Exam 07/10/23 1241 MR#: [id number] Acct: [id number] Name: ROGER MART III Rep #:[id number] : 1955 67 From: Pablo Pichardo DO PCP: Jahaira Cerna DO Status:REG S DC Location: [place] [address] History and Physical Date of Admission: 07/10/23 [...] masses and nontender Quality Reporting Tobacco Screening ([facility] 138) Smoking Status: Former smoker Assessment [...] Jahaira Cerna DO; Pablo Pichardo DO~ Signed [facility] Work Phone: History and physical note Author Pablo Pichardo [facility] November 20, 2023 12:15pm Note Date/Time November 20, 2023 12: 15pm [facility] Medical Records Department [address] [place] [address] History & Physical Exam 11/20/23 1215 MR#: [id number] Acct: [id number] Name: ROGER MART III Rep #:[id number] : 1955 68 From: Pablo Friend DO PCP: Jahaira Cerna, Status:REG S DC Location: [place] [address] History and Physical Date of Admission: 11/20/23 [...] masses and nontender Quality Reporting Tobacco Screening ([facility] 138) Smoking Status: Former smoker Assessment [...] Jahaira Cerna DO; Pablo Pichardo DO~ Signed [facility] Work Phone: History and physical note Author Pablo Pichardo [facility] Note Date/Time December 30, 2024 11:49 am [facility] Medical Records Department [place] [address] History & Physical Exam 12/30/24 1146 MR#: [id number] Acct: [id number] Name: ROGER MART III Rep #:[id number] : 1955 69 From: Pablo Friend DO PCP: Dr. Adriel Khan MD Status:REG SD C Location: [place] [address] HPI - General General Date of Admission: 12/30/24 Date of Service: 12/30/24 Chief Complaint: Robin's esophagus HPI Narrative ROGER MART, is a 69 M who presentsChief Complaint: Vergara's esophagus with low-grade dysplasia *BGI established 05.02.22 without GI complaints. History of colonic polyps, largehiatal hernia and Vergara?s esophagus.?EGD and colonoscopy 06.28.22?EGD [...] BM are normal. Has no other concerns. [facility] ED 08.07.23 presents with R foot pain EGD 08.15.23 Esophageal mucosal changes secondary to established long-segment Vergara's disease. Treated with radiofrequency ablation. Medium-sized hiatal hernia. No gross lesions in the duodenal bulb. No specimens collected. EGD 09.18.23 Esophageal mucosal changes secondary to established long- segmentBarrett's disease. Treated with radiofrequency ablation. Hiatal hernia. Normal second portion of the duodenum. No specimens collected. EGD 10.16.23 Esophageal mucosal changes secondary to established long- segmentBarrett's disease. Biopsied. Treated with radiofrequency ablation. Medium-sized hiatal hernia. No gross lesions in the duodenal bulb. Esophageal plaques were found, consistent with candidiasis. EGD 11.20.23 Moderate Schatzki ring. Dilated. Esophageal mucosal changes secondary to established short-segment Vergara's disease. Biopsied. Hiatal hernia. The examination was otherwise normal. No gross lesions in the duodenal bulb. OV 12.31.23 pt reports that he is doing well overall with no GI symptoms of concern at this time. Continues with pantoprazole and sucralfate. [facility] ED 04.20.24 - 04.23.24 SOB - consulted for hematemesis EGD 04.21.24 Normal esophagus. Vergara's esophagus. Medium-sized hiatal hernia. Chronic gastritis. No gross lesions in the duodenal bulb. No specimens collected. OV 05.30.24 pt reports that he is feeling well overall and denies GI symptoms of concern at this time. Discussed his EGD and colonoscopy findings, focusing on Vergara's and the increased risk for esophageal cancer. Not taking omeprazole, prescribed pantoprazole 40 mg QAM to be taken indefinitely. We will repeat EGD in one yr for long segment Vergara's. 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 Repeat colonoscopy 5 yrs. f/u 6 months. EGD scheduled 07.17.24. OV 07.01.24 Denies GI concerns at this time. Continues pantoprazole. [facility] History Wears hearing aid Arthritis Easy bruising On home oxygen therapy CPAP (continuous positive airway pressure) dependence Sleep apnea History of Holter monitoring Acute and chronic respiratory failure with hypoxia History of echocardiogram Injury of back History of hiatal hernia Shortness of breath on exertion Former smoker Leg cramps Cardiology follow-up encounter Pulmonary emphysema Hyperlipidemia Colon polyps Barretts esophagus Scabies Atrial fibrillation and flutter Osteoporosis Essential hypertension History of DVT (deep vein thrombosis) Paroxysmal atrial tachycardia Paroxysmal atrial fibrillation GERD (gastroesophageal reflux disease) Gout Type 2 diabetes mellitus Hypertension Tachycardia halfway (current) use of anticoagulants Near syncope Bradycardia Tobacco dependence Afib Home Medications ?Medication ?Instructions ?Recorded ?Last Taken ?Type denosumab 60 mg/mL subcutaneous 60 mg subcut [id number] osteoperosis 11/29/23 Unknown Rx syringe (Prolia) #1 mL omega-3 fatty acids 1,000 mg 1,000 mg PO DAILY supplem ent 02/28/24 12/27/24 History capsule allopurinol 300 mg tablet 300 mg PO DAILY gout 4 07/17/24 History cholecalciferol (vitamin D3) 50 50 mcg PO QDAY 5 Unknown History mcg (2,000 unit) capsule dofetilide 500 mcg capsule 500 mcg PO BID heart #180 caps 08/18/24 Unknown Rx furosemide 40 mg tablet 40 mg PO DAILY edema #90 tab s 08/18/24 Unknown Rx potassium chloride 10 mEq 10 meq PO DAILY supplement #90 08/18/24 Unknown Rx tablet,extended release(part/cryst) tabs albuterol sulfate 90 mcg/actuation 2 puff inhalation Q 6H PRN 10/15/24 Unknown Rx aerosol inhaler shortness of breath or wheez ing #8.5 grams guaifenesin 1,200 mg tablet, 1,200 mg PO Q12H cough #6 0 tabs 10/15/24 Unknown Rx extended release 12 hr ipratropium 0.5 mg-albuterol 3 mg 3 ml inhalation TID PRN shortness 10/15/24 Unknown Rx (2.5 mg base)/3 mL nebulization of breath or wheezing #180 mL soln warfarin 4 mg tablet 4 mg PO QDAY #90 tabs 12/23/24 Rx fluticasone fur. 100 mcg-umeclid 1 inh inhalation Q24H #60 ea 11/21/24 Unknown Rx 62.5 mcg-vilant 25 mcg inhalat.powder (Trelegy Ellipta) pantoprazole 40 mg tablet,delayed 40 mg PO BID gerd # 60 tabs 12/12/24 12/30/24 01:30 Rx release ipratropium 0.5 mg-albuterol 3 mg 3 ml inhalation BID 12/25/24 Unknown History (2.5 mg base)/3 mL nebulization soln diltiazem HCl 240 mg 240 mg PO BID 12/26/2412/30 01:30 History capsule,extended release 24 hr Allergy/AdvReac Type Severity Reaction Status Date / Time secobarbital sodium (From Allergy Unknown Verified 12/30/24 11:18 Seconal) venom-honey bee (bee venom Allergy Anaphylaxis Verified 12/30/24 11:18 (honey bee)) Family History Mother Diabetes Hypertension Myocardial infarction CAD (coronary artery disease) Father Hypertension Heart disease Diabetes Myocardial infarction CAD (coronary artery disease) Surgical History History of esophagogastroduodenoscopy (EGD) History of hip replacement Status post peripheral artery angioplasty History of left hip replacement History of cardiac radiofrequency ablation (~04/2008) Social History household members: other details: His mother lives with him. Smoking Status: Former smoker Tobacco: How many years used: 50 how long ago did patient quit smokin alcohol intake: current alcohol intake frequency: a few times a month Alcohol type: beer substance use type: does not use caffeine: No ROS Constitutional Constitutional: Denies fatigue, fever(s), poor appetite, weight gain or weight loss Gastrointestinal Gastrointestinal: Denies belching, bloating, change in bowel habits, change in stool character, chewing difficulty, coffee ground emesis, constipation, cramping, diarrhea, dyspepsia, dysphagia, early satiety, excessive flatus, fecalincontinence, heartburn, hematemesis, hematochezia, hemorrhoids, loose stools, melena, nausea, odynophagia, rectal bleeding, tenesmus, vomiting or weight changes Vital Signs Vital Signs Vital Signs: 12/30/24 11:20 12/30/24 11:20 Temperature 97.7 F L Temperature Source Temporal Pulse Rate 84 Respiratory Rate 16 Respiratory Pattern Normal Blood Pressure 118/86 H Blood Pressure Mean 96 Blood Pressure Source Monitor Blood Pressure Position Sitting Blood Pressure Location Right Arm Pulse Ox 96 Oxygen Delivery Method Room Air Weight Weight: 165 lb 5.547 oz Body Mass Index (BMI) 25.9 Physical Exam Const alert, oriented x3, no apparent distress and healthy appearing General Appearance: cooperative GI normal to inspection, nondistended, normoactive bowel sounds, soft to palpation,non-tender and non-distended Percussion: normal to percussion Rectal Exam: deferred Results Lab / Micro Data Labs: Laboratory Results - last 24 hr 12/30/24 11:01: POC PT 13.1, INR 1.1 Assessment & Plan Assessment/Plan (1) Barretts esophagus: QUALIFIERS: Vergara's esophagus type: without dysplasia QualifiedCode(s): K22.70 - Vergara's esophagus without dysplasia PLAN: Assessment & Plan Assessment/Plan (1) Barretts esophagus: QUALIFIERS: Vergara's esophagus type: without dysplasia Qualified Code(s): K22.70 - Vergara's esophagus without dysplasia PLAN: (1) Barretts esophagus: Status: Chronic Qualifiers: Vergara's esophagus type: without dysplasia Qualified Code(s): K22.70 - Vergara's esophagus without dysplasia Comment: ON PROTONIX Plan: We discussed his EGD and colonoscopy findings, focusing on Vergara's and the increased risk for esophageal cancer. I thought he was on omeprazole but apparently he wasn't, so I rx'd pantoprazole 40 mg QAM to be taken indefinitely.We will repeat EGD in one yr for long segment Vergara's. 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 Repeat colonoscopy 5 yrs. f/u 6 months. 12/30/24 1146 <Electronically signed by Pablo Pichardo DO> Cosigner Signature (if applicable): CC: Dr. Adriel Khan MD; Pablo Pichardo DO~ Signed [facility] Work Phone: Hospital Discharge instructions Additional Instructions 1. Call Dr. Portillo's office tomorrow for follow-up appointment first part of next week 2. You need to increase your warfarin dose to 4 mg daily. 3. Your diltiazem was increased to 180 mg twice a day. (Do not take your 120 mg tablets once you start the 180 mg tablets)[facility] Work Phone: Hospital Discharge instructions Additional Instructions Foot x-ray is negative. Your INR 3.1. No clinical signs of gout concerns. You have good vascular flow with normal capillary refill. Use Tylenol every 6 hours as needed and follow-up with your doctor for reevaluation.[facility] Work Phone: Progress note Author Dionna Self [facility] Services Note Date/Time April 16, 2025 11:53am [facility] [address] [place] [address] OFFICE VISIT Date of Service: 04/16/25 MR#: [id number] Acct: [id number] Name: ROGER MART III Rep #: [id number] : 1955 Provider: TAMIA Jordan Age/Sex: 69/M Location: [facility] [place] Status: Signed HPI HPI History of Present Illness Details: Roger Mart is a 69-year-old male with a history of atrial fibrillation/flutterstatus post EPS/RFA with continue medical therapy including antiarrhythmic therapy and anticoagulant therapy. Patient was evaluated in spring 2020 and hisEKG demonstrated sinus rhythm. Follow-up appointment with his EP physician at [facility] in November 2020 it was recommended that he continue current medical therapy and follow-up as deemed appropriate with respect to his laboratory studies and EKG. He presented to the emergency department 2022 with palpitations and was noted to be in atrial flutter 2?1 block at a rate of 118 bpm. Patient received IV diltiazem, developed bradycardia at a rate of 30 bpm and improved with control of atrial flutter. Patient's p.o. diltiazem was increased and he was discharged home. Patient sees Dr. Wells at [facility]. His most recent appointment 12/04/2024, he recommended proceeding with DCCV. He did undergo a HM this demonstrated SR with a [id number] AVB. EKG today demonstrates the same. Pt sts that when he has decreased hisdiltiazem to once a day he had an elevated HR. We did decrease his Diltiazem to180 mg BID. Since doing so, he has not had any palpitations that he is aware or. He feels his overall heart rate is adequately controlled. He does sometimes have lower extremity swelling but this is improved with compression stockings. He does nothave any bleeding issues. He does not have any lightheadedness or dizziness. EKG today demonstrates sinus rhythm with first-degree AV block. Intake Vital Signs 03/04/25 08:57 04/08/25 06:28 04/16/25 11:17 Height 5 ft 7 in 5 ft 7 in 5 ft 7 in Weight: 168 lb BMI 26.3 BP 120/79 Blood Pressure Location Lt brachial Position Sitting Respiration 16 Pulse 77 Pulse Source NIBP Intake Visit Reasons: 6 WK FU/Needs EKG Operations Director Required: No Is patient in pain?: No Allergies secobarbital sodium (From [place]) Allergy (Verified 04/16/25 11:21) Unknown venom-honey bee (bee venom (honey bee)) Allergy (Verified 04/16/25 11:21) Anaphylaxis Medications ?Medication ?Instructions ?Recorded ?Confirmed ?Type denosumab 60 mg/mL subcutaneous 60 mg subcut [id number] osteoperosis 11/29/23 04/16/25 Rx syringe (Prolia) #1 mL omega-3 fatty acids 1,000 mg 1,000 mg PO DAILY supplem ent 02/28/24 04/16/25 History capsule allopurinol 300 mg tablet 300 mg PO DAILY gout 4 04/16/25 History dofetilide 500 mcg capsule 500 mcg PO BID heart #180 caps 08/18/24 04/16/25 Rx furosemide 40 mg tablet 40 mg PO DAILY edema #90 tab s 08/18/24 04/16/25 Rx potassium chloride 10 mEq 10 meq PO DAILY supplement #90 08/18/24 04/16/25 Rx tablet,extended release(part/cryst) tabs warfarin 4 mg tablet 4 mg PO QDAY #90 tabs 04/16/25 Rx amoxicillin 500 mg capsule 2,000 mg PO ONCE 03/04/25 0 04/16/25 History diltiazem HCl 180 mg capsule,24 180 mg PO BID #180 cap s 03/04/25 04/16/25 Rx hr,extended release (Tiadylt ER) epinephrine 0.3 mg/0.3 mL 0.3 mg IM Q5-15M PRN 5 04/16/25 History injection, auto-injector (EpiPen 2-Hyacinth) lidocaine HCl 2 % mucosal solution 5 ml mucous membran e TID PRN 03/04/25 04/16/25 History vitamin D3 250 mcg (10,000 1 cap PO QDAY 03/04/2503/30 History unit)-vitamin K2 45 mcg capsule albuterol sulfate 90 mcg/actuation 2 puff inhalation Q 4H PRN 03/16/25 04/16/25 Rx aerosol inhaler shortness of breath or wheez ing #8.5 grams fluticasone fur. 200 mcg-umeclid 1 ea inhalation QDAY #60 ea 04/08/25 04/16/25 Rx 62.5 mcg-vilant 25 mcg inhalat.powder (Trelegy Ellipta) guaifenesin 1,200 mg tablet, 1,200 mg PO Q12H cough #6 0 tabs 04/08/25 04/16/25 Rx extended release 12 hr ipratropium 0.5 mg-albuterol 3 mg 3 ml inhalation Q6-8 H PRN 04/08/25 04/16/25 Rx (2.5 mg base)/3 mL nebulization shortness of breath or wheezing soln #180 mL pantoprazole 40 mg tablet,delayed 40 mg PO BID gerd # 60 tabs 04/13/25 04/16/25 Rx release Ejection fraction %: 60 Have you fallen in the past year?: No PFSH Medical History Wears hearing aid Arthritis Easy bruising On home oxygen therapy CPAP (continuous positive airway pressure) dependence Sleep apnea History of Holter monitoring Acute and chronic respiratory failure with hypoxia History of echocardiogram Injury of back History of hiatal hernia Shortness of breath on exertion Former smoker Leg cramps Cardiology follow-up encounter Pulmonary emphysema Hyperlipidemia Colon polyps Barretts esophagus Scabies Atrial fibrillation and flutter Osteoporosis Essential hypertension History of DVT (deep vein thrombosis) Paroxysmal atrial tachycardia Paroxysmal atrial fibrillation GERD (gastroesophageal reflux disease) Gout Type 2 diabetes mellitus Hypertension 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 Near syncope Bradycardia [...] type: does not use caffeine: No ROS Const Const: Negative for fatigue or weakness Eyes Eyes: Negative for change in vision ENT ENT: Negative for dizziness or balance problems Cardio Chest Pain: No Palpitations: No Edema: Bilateral (Improved with compression stockings) Resp Respiratory: Positive for SOB with activity (Occasionally); Negative for SOB at rest or SOB orthopnea\SOB lying down GI GI: Negative nausea or heartburn Musc Musc: Negative for balance problems Neuro Neuro: Negative for dizziness, lightheadedness, near syncope, syncope or weakness Endo Endo: Negative for fatigue Cardiology Exam Const Appearance: cooperative, comfortable, no acute distress and well developed; Negative diaphoretic or ill appearing Nutritional Appearance: average body habitus Orientation: alert and oriented x3 Ambulating without assistive device Head Head: normal to inspection, normocephalic and atraumatic Ears: hearing grossly normal bilaterally Nose: external nose normal and Negative epistaxis Face and Sinus: face symmetric Eyes General: appearance normal, both eyes and all related structures Eyelids: eyelids normal Conjunctivae: conjunctivae normal; Negative scleral icterus EOM: EOM intact bilaterally Neck Neck: no JVD Carotids: normal carotid upstroke; Negative bruit Neck Mass: Negative Neck mass Chest Chest inspection: normal respiratory effort; Negative respiratory distress, audible wheezes or tachypneic Auscultation: Bilateral: Clear to Auscultation Cardio Rate: regular rate Rhythm: regular rhythm Heart sounds: S1 normal and S2 normal; Negative rub, gallop or murmur Neuro General: patient alert, patient awake, patient oriented x3 and moves all extremities Skin Skin: no rashes or lesions noted Extremities Pulses: Normal: Right Posterior Tibial Pulse, Left Posterior Tibial Pulse, RightRadial Pulse and Left Radial Pulse Lower Extremity Edema: Trace: Bilateral Psych Psychological: normal affect Supplemental Info Supplemental Information Echocardiogram from 04/02/2024: Interpretation Summary Normal LV size. Left ventricular systolic function is normal. The left ventricular ejection fraction is 60 %. Mild focal aortic valve thickening. Pulmonary artery systolic pressure is 42 mmHg. Echocardiogram: 06/21/2020 Interpretation Summary Left ventricular systolic function is normal. The estimated ejection fraction is 60 %. Mid cavitary false tendon noted. The left atrium is mildly enlarged. The right atrium is mildly enlarged. Trivial mitral valve insufficiency. Trivial tricuspid valve insufficiency. Mild focal aortic valve thickening. Electrophysiology study: 10-12-15: [facility] Summary Findings: I. Continuous invasive left atrial pressure monitoring throughout procedure 2. ICE imaging throughout procedure as described 3. Left. atrial instrumentation with two transseptal punctures guided by fluoroscopy and ICE a, Punctures facilitated by electrocautery as described 4. Left atrial mapping using a circular mapping catheter and [employer] 3D mapping system a. Recovery of PVs potentials as described 5. Activation mapping using [employer] electroanatomical mapping system to generate 3D maps of the atrial flutters a. Successful radiofrequency catheter ablation of two macro-reentrant atypical left atrial flutters as described, guided by Carto 3D mapping system 6, AtrIal fibrillation radiofrequency catheter ablation with redo pulmonary veins aritrum isolation (PVAI) using an ICE-guided circular mapping technique and [employer] 3D mapping system for guidance and [employer] remote magnetic navigation system to guide the ablation catheter a. Successful re-isolation of all PVs b. Multiple lines of RF lesions placed along posterior wall of left atrium between right and left PVs 7. lsoproterenal infusion challenge a. No acute recovery of PVs potentials, triggering atrial beats, atrial tachycardia, or atypical atrial flutters provoked 8. Comprehensive EP study a. Normal HV interval b. Normal SA node function grossly c, Normal AV node function antegrade and retrograde d. No accessory pathway conduction ontegrade or retrograde e. No inducible supraventricular or ventricular arrhythmlas with conservative burst pacing 9, No complications Chest CT 12/07/22 FINDINGS: Hyperinflation. Diffuse emphysematous changes with multiple bullous formation inthe upper lobes worse in the right medial upper lobe. Mild scarring along the anterior aspect of the left upper lobe. Stable 4 mm noncalcified nodule in the right upper lobe. Stable 7 mm right middle lobe nodule. There is no demonstratedpleural abnormality. There are calcifications of the coronary arteries. There are calcifications of the coronary arteries. Normal unenhanced pulmonary arteries. There is atherosclerotic calcification of the aortic arch with tortuosity and elongation of the aortic arch and descending thoracic aorta. 24 HR HM 06/2024: Average heart rate 70 bpm and normal sinus rhythm, minimum heart rate 52 bpm and sinus bradycardia, maximum heart rate 107 bpm and sinus tachycardia. 13 ventricular ectopy noted, 27 supraventricular ectopy noted, longest R to R1 0.4 seconds. No atrial fibrillation noted. Diagnostics: Electrocardiogram Echocardiogram Chest X-Ray Chest CTA Abdomen/Pelvis CT Pulmonary: Pulmonary Function Test Pulmonary Exercise Test Past Visits: Cardiology Visit Today Assessment and Plan Assessment and Plan (1) Atrial fibrillation and flutter: Status: Chronic Comment: S/P EP/RFA at [facility] 04/2008; Plan: EKG today demonstrates sinus rhythm with first-degree AV block. This is similarto previous. This was reviewed with Dr. Santiago. For now he will continue with his diltiazem 180 mg twice a day. Will forward EKG and office visit note to . I also left a message with their office to make sure that they werelooking for this office visit note to see if they wanted any changes with his medications. He is also on his Tikosyn at 500 mg twice a day. He is also anticoagulated with Coumadin. (2) Chronic anticoagulation: Status: Acute Plan: Patient will continue with routine INRs. He is anticoagulated with Coumadin. (3) Essential hypertension: Status: Chronic Plan: Blood pressure is controlled on his diltiazem. He is also on furosemide. Will continue to monitor closely. Orders: Orders 12 Lead EKG performed by [facility] Today I48.92 - Unspecified atrial flutter Plan Details Follow Up: 6 Months (6-9 months TRIM SAWYER) Coding Level of Care Code Off vis,est,level 4 Diagnoses Atrial fibrillation and flutter I48.91; I48.92 Chronic anticoagulation Z79.01 Essential hypertension I10 Coding Level of Care Code Off vis,est,level 4 Diagnoses Atrial fibrillation and flutter I48.91; I48.92 Chronic anticoagulation Z79.01 Essential hypertension I10 Clinical Quality Measures Falls Risk Screening/Assistive Devices Have you fallen in the past year?: No Cardiac Ejection fraction %: 60 04/16/25 1454 <Electronically signed by Dionna Wick> Date _ [facility] Signature: Date (if applicable) CC: Dr. Adriel Khan MD ~ 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 Machine Operator No March 2:51pm Advance Directive Response Recorded Date/ Time Advance Directives No October 25 2 016 1:31pm Living Will No June 23 022 11:41am Power of Raschel Knitting Machine Operator No June 23, 2022 11:41am Advance Directive Response Recorded Date/ Time Advance Directives No October 25, 2 016 1:31pm Living Will No August 03 3 7:01pm Power of Raschel Knitting Machine Operator No August 03, 2 023 7:01pm Advance Directive Response Recorded Date/ Time Advance Directives No October 25 2 016 2:31pm Living Will No August 03 3 8:01pm Power of Raschel Knitting Machine Operator No August 03, 2 023 8:01pm Advance Directive Response Recorded Date/ Time Advance Directives No October 25, 2 016 2:31pm Living Will No January 15, 2023 7:21pm Power of Raschel Knitting Machine Operator No January 15 3 7:21pm Advance Directive Response Recorded Date/ Time Advance Directives No October 25, 2 016 1:31pm Living Will No July 05 3:23pm Power of Raschel Knitting Machine Operator No July 05, 2023 3:23pm Advance Directive Response Recorded Date/ Time Advance Directives No October 25, 2 016 1:31pm Living Will No August 07 7:55am Power of Raschel Knitting Machine Operator No August 07 024 7:55am Advance Directive Response Recorded Date/ Time Advance Directives No October 25 2 016 1:31pm Living Will No August 13 12:16pm Power of Raschel Knitting Machine Operator No August 13, 2023 12:16pm Advance Directive Response Recorded Date/ Time Advance Directives No October 25 2 016 1:31pm Living Will No September 12 10:40am Power of Raschel Knitting Machine Operator No September 12, 2023 10:40am Advance Directive Response Recorded Date/ Time Advance Directives No October 25 016 2:31pm Living Will No October 12, 2023 11:58am Power of Raschel Knitting Machine Operator No October 11 11:58am Advance Directive Response Recorded Date/ Time Advance Directives No October 25 016 2:31pm Living Will No November 16, 2023 12:17pm Power of Raschel Knitting Machine Operator No November 15 12:17pm Advance Directive Response Recorded Date/ Time Living Will No November 16, 2023 12:17pm Do you have a Healthcare Power of Raschel Knitting Machine Operator? No November 16, 2023 12:17pm Living Will No April 07 12:57pm Do you have a Healthcare Power of Raschel Knitting Machine Operator? No April 07, 2024 12:57pm Living Will No June 29 4:12am Do you have a Healthcare Power of Raschel Knitting Machine Operator? No June 29, 2024 4:12am Living Will No July 30 6:02am Do you have a Healthcare Power of Raschel Knitting Machine Operator? No July 30, 2024 6:02am Living Will No August 30 3:46am Do you have a Healthcare Power of Raschel Knitting Machine Operator? No August 30, 2024 3:46am Living Will No July 16 11:49am Do you have a Healthcare Power of Raschel Knitting Machine Operator? No July 16, 2024 11:49am Living Will No September 27, 2024 9:25am Do you have a Healthcare Power of Raschel Knitting Machine Operator? No September 27, 2024 9:25am Advance Directives No May 26, 2024 10:49am Advance Directive Response Recorded Date/ Time Living Will No July 30 6:02am Do you have a Healthcare Power of Raschel Knitting Machine Operator? No July 30, 2024 6:02am Living Will No August 30 3:46am Do you have a Healthcare Power of Raschel Knitting Machine Operator? No August 30, 2024 3:46am Living Will No November 27, 2024 1: 02am Do you have a Healthcare Power of Raschel Knitting Machine Operator? No November 27, 2024 1:02am Living Will No September 27, 2024 9:25am Do you have a Healthcare Power of Raschel Knitting Machine Operator? No September 27, 2024 9:25am Living Will No October 27, 2024 11:40pm Do you have a Healthcare Power of Raschel Knitting Machine Operator? No October 27, 2024 11:40pm Do you have a Healthcare Power of Raschel Knitting Machine Operator? No November 25, 2024 4:43pm Advance Directives No May 26, 2024 10:49am Advance Directive Response Recorded Date/ Time Living Will No May 26 10:49am Do you have a Healthcare Power of Raschel Knitting Machine Operator? No May 26, 2024 10:49am Living Will No July 30 6:02am Do you have a Healthcare Power of Raschel Knitting Machine Operator? No July 30, 2024 6:02am Living Will No August 30 3:46am Do you have a Healthcare Power of Raschel Knitting Machine Operator? No August 30, 2024 3:46am Living Will No November 27, 2024 1: 02am Do you have a Healthcare Power of Raschel Knitting Machine Operator? No November 27, 2024 1:02am Living Will No September 27, 2024 9:25am Do you have a Healthcare Power of Raschel Knitting Machine Operator? No September 27, 2024 9:25am Living Will No October 27, 2024 11:40pm Do you have a Healthcare Power of Raschel Knitting Machine Operator? No October 27, 2024 11:40pm Do you have a Healthcare Power of Raschel Knitting Machine Operator? No November 25, 2024 4:43pm Advance Directives No May 26, 2024 10:49am Advance Directive Response Recorded Date/ Time Living Will No May 26 10:49am Do you have a Healthcare Power of Raschel Knitting Machine Operator? No May 26, 2024 10:49am Living Will No August 30 3:46am Do you have a Healthcare Power of Raschel Knitting Machine Operator? No August 30, 2024 3:46am Living Will No November 27, 2024 1: 02am Do you have a Healthcare Power of Raschel Knitting Machine Operator? No November 27, 2024 1:02am Living Will No September 27, 2024 9:25am Do you have a Healthcare Power of Raschel Knitting Machine Operator? No September 27, 2024 9:25am Living Will No October 27, 2024 11:40pm Do you have a Healthcare Power of Raschel Knitting Machine Operator? No October 27, 2024 11:40pm Do you have a Healthcare Power of Raschel Knitting Machine Operator? No November 25, 2024 4:43pm Advance Directives No May 26, 2024 10:49am Advance Directive Response Recorded Date/ Time Living Will No May 26 10:49am Do you have a Healthcare Power of Raschel Knitting Machine Operator? No May 26, 2024 10:49am Living Will No November 16, 2023 12:17pm Do you have a Healthcare Power of Raschel Knitting Machine Operator? No November 16, 2023 12:17pm Living Will No August 30 3:46am Do you have a Healthcare Power of Raschel Knitting Machine Operator? No August 30, 2024 3:46am Living Will No November 27, 2024 1: 02am Do you have a Healthcare Power of Raschel Knitting Machine Operator? No November 27, 2024 1:02am Do you have a Healthcare Power of Raschel Knitting Machine Operator? No December 25, 2024 10:54am Living Will No September 27, 2024 9:25am Do you have a Healthcare Power of Raschel Knitting Machine Operator? No September 27, 2024 9:25am Living Will No October 27, 2024 11:40pm Do you have a Healthcare Power of Raschel Knitting Machine Operator? No October 27, 2024 11:40pm Do you have a Healthcare Power of Raschel Knitting Machine Operator? No November 25, 2024 4:43pm Living Will No December 28, 2024 9 :34pm Do you have a Healthcare Power of Raschel Knitting Machine Operator? No December 28, 2024 9:34pm Advance Directives No May 26, 2024 10:49am Advance Directive Response Recorded Date/ Time Living Will No May 26 10:49am Do you have a Healthcare Power of Raschel Knitting Machine Operator? No May 26, 2024 10:49am Living Will No August 30 3:46am Do you have a Healthcare Power of Raschel Knitting Machine Operator? No August 30, 2024 3:46am Living Will No November 27, 2024 1: 02am Do you have a Healthcare Power of Raschel Knitting Machine Operator? No November 27, 2024 1:02am Do you have a Healthcare Power of Raschel Knitting Machine Operator? No December 25, 2024 10:54am Living Will No September 27, 2024 9:25am Do you have a Healthcare Power of Raschel Knitting Machine Operator? No September 27, 2024 9:25am Living Will No October 27, 2024 11:40pm Do you have a Healthcare Power of Raschel Knitting Machine Operator? No October 27, 2024 11:40pm Do you have a Healthcare Power of Raschel Knitting Machine Operator? No November 25, 2024 4:43pm Advance Directives No May 26, 2024 10:49am Advance Directive Response Recorded Date/ Time Living Will No May 26 10:49am Do you have a Healthcare Power of Raschel Knitting Machine Operator? No May 26, 2024 10:49am Living Will No November 16, 2023 12:17pm Do you have a Healthcare Power of Raschel Knitting Machine Operator? No November 16, 2023 12:17pm Living Will No November 27, 2024 1: 02am Do you have a Healthcare Power of Raschel Knitting Machine Operator? No November 27, 2024 1:02am Do you have a Healthcare Power of Raschel Knitting Machine Operator? No December 25, 2024 10:54am Living Will No September 27, 2024 9:25am Do you have a Healthcare Power of Raschel Knitting Machine Operator? No September 27, 2024 9:25am Living Will No October 27, 2024 11:40pm Do you have a Healthcare Power of Raschel Knitting Machine Operator? No October 27, 2024 11:40pm Do you have a Healthcare Power of Raschel Knitting Machine Operator? No November 25, 2024 4:43pm Living Will No December 28, 2024 9 :34pm Do you have a Healthcare Power of Raschel Knitting Machine Operator? No December 28, 2024 9:34pm Advance Directives No May 26, 2024 10:49am Advance Directive Response Recorded Date/ Time Living Will No May 26 10:49am Do you have a Healthcare Power of Raschel Knitting Machine Operator? No May 26, 2024 10:49am Living Will No November 16, 2023 12:17pm Do you have a Healthcare Power of Raschel Knitting Machine Operator? No November 16, 2023 12:17pm Living Will No November 27, 2024 1: 02am Do you have a Healthcare Power of Raschel Knitting Machine Operator? No November 27, 2024 1:02am Do you have a Healthcare Power of Raschel Knitting Machine Operator? No December 25, 2024 10:54am Living Will No October 27, 2024 11:40pm Do you have a Healthcare Power of Raschel Knitting Machine Operator? No October 27, 2024 11:40pm Do you have a Healthcare Power of Raschel Knitting Machine Operator? No November 25, 2024 4:43pm Living Will No December 28, 2024 9 :34pm Do you have a Healthcare Power of Raschel Knitting Machine Operator? No December 28, 2024 9:34pm Advance Directives No May 26, 2024 10:49am Advance Directive Response Recorded Date/ Time Living Will No November 16, 2023 12:17pm Do you have a Healthcare Power of Raschel Knitting Machine Operator? No November 16, 2023 12:17pm Living Will No May 26 10:49am Do you have a Healthcare Power of Raschel Knitting Machine Operator? No May 26, 2024 10:49am Living Will No November 27, 2024 1: 02am Do you have a Healthcare Power of Raschel Knitting Machine Operator? No November 27, 2024 1:02am Do you have a Healthcare Power of Raschel Knitting Machine Operator? No December 25, 2024 10:54am Living Will No October 27, 2024 11:40pm Do you have a Healthcare Power of Raschel Knitting Machine Operator? No October 27, 2024 11:40pm Do you have a Healthcare Power of Raschel Knitting Machine Operator? No November 25, 2024 4:43pm Living Will No December 28, 2024 9 :34pm Do you have a Healthcare Power of Raschel Knitting Machine Operator? No December 28, 2024 9:34pm Advance Directives No May 26, 2024 10:49am Advance Directive Response Recorded Date/ Time Living Will No November 16, 2023 12:17pm Do you have a Healthcare Power of Raschel Knitting Machine Operator? No November 16, 2023 12:17pm Living Will No May 26 10:49am Do you have a Healthcare Power of Ras[employer] Knitting Machine Operator? No May 26, 2024 10:49am Living Will No November 27, 2024 1: 02am Do you have a Healthcare Power of Raschel Knitting Machine Operator? No November 27, 2024 1:02am Do you have a Healthcare Power of Raschel Knitting Machine Operator? No December 25, 2024 10:54am Living Will No December 28, 2024 9 :34pm Do you have a Healthcare Power of Raschel Knitting Machine Operator? No December 28, 2024 9:34pm Advance Directives No May 26, 2024 10:49am Advance Directive Response Recorded Date/ Time Living Will No November 16, 2023 12:17pm Do you have a Healthcare Power of Raschel Knitting Machine Operator? No November 16, 2023 12:17pm Do you have a Healthcare Power of Raschel Knitting Machine Operator? No December 25, 2024 10:54am Living Will No December 28, 2024 9 :34pm Do you have a Healthcare Power of Raschel Knitting Machine Operator? 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 History of cardiac radiofrequency ablation Chief Complaint 1 Y FU 3 M FU RASH ON ARMS S/O PT/INR 6 M FU RECLAST S/O PT/INR S/O PT/INR S/O PT/INR R LOWER LEG INJURY/SWELLING Reason for Visit Osteoporosis Lung nodule Nicotine dependence, cigarettes, in remission Thrush, oral COPD (chronic obstructive pulmonary disease) Irritant dermatitis Atrial fibrillation and flutter Essential hypertension halfway (current) use of anticoagulants History of cardiac [...] FU S/O PT/INR HIGH HEART RATE s/p [facility] ED 08-03-22 S/O PT/INR S/O PT/INR Reason for Visit Lung nodule Stage 1 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 Barretts esophagus Atrial fibrillation and flutter Essential 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 History of cardiac radiofrequency ablation Chief Complaint 2 WK FU S/O PT/INR HIGH HEART RATE s/p [facility] ED 08-03-22 S/O PT/INR S/O PT/INR S/O PT/INR 1 Y FU Reason for Visit Barretts esophagus Atrial fibrillation and flutter Essential hypertension halfway (current) use of anticoagulants History of cardiac radiofrequency ablation Osteoporosis Chief Complaint HIGH HEART RATE s/p [facility] ED 08-03-22 S/O PT/INR S/O PT/INR S/O PT/INR 1 Y FU CONCERN FOR ABCESS/RIGHT SIDE OF MANDIBLE CYST ON JAW- SELF REFERRED S/O PT/INR Excision CYST ON JAW- SELF REFERRED RIGHT JAW CYST Reason for Visit Atrial fibrillation and flutter Essential hypertension halfway (current) use of anticoagulants History of cardiac radiofrequency ablation Osteoporosis Dental abscess Dental infection Sebaceous cyst Sebaceous cyst Chief Complaint HIGH HEART RATE s/p [facility] ED 08-03-22 S/O PT/INR S/O PT/INR S/O PT/INR 1 Y FU CONCERN FOR ABCESS/RIGHT SIDE OF MANDIBLE CYST ON JAW- SELF REFERRED S/O PT/INR Excision CYST ON JAW- SELF REFERRED RIGHT JAW CYST Suture Removal Cyst on jaw 11/22 PROLIA Reason for Visit Atrial fibrillation and flutter Essential hypertension halfway (current) use of anticoagulants History of cardiac [...] esophagus Atrial fibrillation and flutter 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 History of cardiac [...] esophagus Atrial fibrillation and flutter Essential 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 History of cardiac [...] esophagus Atrial fibrillation and flutter Essential hypertension halfway (current) use of anticoagulants History of cardiac [...] esophagus Atrial fibrillation and flutter Essential hypertension halfway (current) use of anticoagulants History of cardiac radiofrequency ablation Chief Complaint PROLIA NEW 6MM S/O PT/INR 6 M FU 6 mo fu 1 Y FU high coumadin level LLQ ABD PAIN S/O PT/INR S/O PT/INR S/O PT/INR Reason for Visit Lung nodule Nicotine dependence, cigarettes, in remission COPD (chronic obstructive pulmonary disease) LLQ abdominal pain Barretts esophagus Atrial fibrillation and flutter Essential 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 History of cardiac radiofrequency ablation Chief Complaint 6 mo fu 1 Y FU high coumadin level LLQ ABD PAIN S/O PT/INR S/O PT/INR S/O PT/INR S/O PT/INR Reason for Visit LLQ abdominal pain Barretts esophagus Atrial fibrillation and flutter Essential 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] 7am TACHYCARDIA December 23, 2024 9:56a m TACHYCARDIA December 23, 2024 10:10 am EKG check December 29, 2024 2:57p m NICOTINE DEP January 02, 2025 5:55p m S/O PT/INR - COPY PCP January 07, 2025 6: 05am Reason for Visit Admit Date Obstructive sleep [...] 2 diabetes mellitus December 09, 2024 11:17am Barretts esophagus December 30, 2024 10:55 am Chief Complaint Admit Date S/O PT/INR - [...] 7am TACHYCARDIA December 23, 2024 9:56a m TACHYCARDIA December 23, 2024 10:10 am EKG check December 29, 2024 2:57p m Chief Complaint Admit Date S/O PT/INR - COPY PCP October 13, [...] 7am TACHYCARDIA December 23, 2024 9:56a m TACHYCARDIA December 23, 2024 10:10 am EKG check December 29, 2024 2:57p m NICOTINE DEP January 02, 2025 5:55p m S/O PT/INR - COPY PCP January 16, 2025 7: 01am 3 M FU January 20, 2025 9:34 am Reason for Visit Admit Date Obstructive sleep [...] 2 diabetes mellitus December 09, 2024 11:17am Barretts esophagus December 30, 2024 10:55 am Obstructive sleep apnea January 20, 2025 9:34am Smoking greater than 40 pack years January 20, 2025 9:34am Thrush, oral January 20, 2025 9:34 am Hypoxia January 20, 2025 9:34 am Lung nodule January 20, 2025 9:34 am Pulmonary hypertension January 20, 2025 9 :34am Stage 1 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 January 20, 2025 9:34am Reason for Visit Admit Date Thrush, oral October 15, 2024 10: 37am Hypoxia October 15, 2024 10: 37am Lung nodule October 15, 2024 10: 37am Obstructive sleep apnea October 15, 2024 10:37am Pulmonary hypertension October 15, 2024 10:37am Stage 1 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 October 15, 2024 10:37am Chronic anticoagulation December 09, 2024 8 :48am Atrial fibrillation and flutter November 8:48am Essential hypertension December 09, 2024 8: 48am Osteoporosis December 09, 2024 11:17 am Type 2 diabetes mellitus December 09, 2024 11:17am Barretts esophagus December 30, 2024 10:55 am Smoking greater than 40 pack years January 20, 2025 9:34am Thrush, oral January 20, 2025 9:34 am Hypoxia January 20, 2025 9:34 am Lung nodule January 20, 2025 9:34 am Obstructive sleep apnea January 20, 2025 9:34am Pulmonary hypertension January 20, 2025 9 :34am Stage 1 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 January 20, 2025 9:34am Chief Complaint Admit Date S/O PT/INR - COPY PCP November 24, 2024 5 :59am PALPITATIONS November 25, 2024 2:2 8pm DCCV Discussion December 09, 2024 8:48a m 1 Y FU/Prolia - B&B December 09, 2024 11:17 am S/O PT/INR - COPY PCP December 16, 2024 6:2 7am TACHYCARDIA December 23, 2024 9:56a m TACHYCARDIA December 23, 2024 10:10 am EKG check December 29, 2024 2:57p m NICOTINE DEP January 02, 2025 5:55p m S/O PT/INR - COPY PCP January 16, 2025 7: 01am 3 M FU January 20, 2025 9:34 am S/O PT/INR - COPY PCP February 16, 2025 8: 21am Reason for Visit Admit Date Chronic anticoagulation December 09, 2024 8 :48am Atrial fibrillation and flutter November 8:48am Essential hypertension December 09, 2024 8: 48am Osteoporosis December 09, 2024 11:17 am Type 2 diabetes mellitus December 09, 2024 11:17am Barretts esophagus December 30, 2024 10:55 am Smoking greater than 40 pack years January 20, 2025 9:34am Thrush, oral January 20, 2025 9:34 am Hypoxia January 20, 2025 9:34 am Lung nodule January 20, 2025 9:34 am Obstructive sleep apnea January 20, 2025 9:34am Pulmonary hypertension January 20, 2025 9 :34am Stage 1 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 January 20, 2025 9:34am Chief Complaint Admit Date S/O PT/INR - COPY PCP November 24, 2024 5 :59am PALPITATIONS November 25, 2024 2:2 8pm DCCV Discussion December 09, 2024 8:48a m 1 Y FU/Prolia - B&B December 09, 2024 11:17 am S/O PT/INR - COPY PCP December 16, 2024 6:2 7am TACHYCARDIA December 23, 2024 9:56a m TACHYCARDIA December 23, 2024 10:10 am EKG check December 29, 2024 2:57p m NICOTINE DEP January 02, 2025 5:55p m S/O PT/INR - COPY PCP January 16, 2025 7: 01am 3 M FU January 20, 2025 9:34 am S/O PT/INR - COPY PCP February 16, 2025 8: 21am 1 Y FU March 04, 2025 8:4 7am Reason for Visit Admit Date Chronic anticoagulation December 09, 2024 8 :48am Atrial fibrillation and flutter November 8:48am Essential hypertension December 09, 2024 8: 48am Osteoporosis December 09, 2024 11:17 am Type 2 diabetes mellitus December 09, 2024 11:17am Barretts esophagus December 30, 2024 10:55 am Smoking greater than 40 pack years January 20, 2025 9:34am Thrush, oral January 20, 2025 9:34 am Hypoxia January 20, 2025 9:34 am Lung nodule January 20, 2025 9:34 am Obstructive sleep apnea January 20, 2025 9:34am Pulmonary hypertension January 20, 2025 9 :34am Stage 1 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 January 20, 2025 9:34am Chronic anticoagulation March 04, 2025 8:47am Atrial fibrillation and flutter March [id number] 8:47am Essential hypertension March 04, 2025 8:47am Chief Complaint Admit Date DCCV Discussion December 09, 2024 8:48a m 1 Y FU/Prolia - B&B December 09, 2024 11:17 am S/O PT/INR - COPY PCP December 16, 2024 6:2 7am TACHYCARDIA December 23, 2024 9:56a m TACHYCARDIA December 23, 2024 10:10 am EKG check December 29, 2024 2:57p m NICOTINE DEP January 02, 2025 5:55p m S/O PT/INR - COPY PCP January 16, 2025 7: 01am 3 M FU January 20, 2025 9:34 am S/O PT/INR - COPY PCP February 16, 2025 8: 21am 1 Y FU March 04, 2025 8:4 7am S/O PT/INR - COPY PCP March 18, 2025 3:00pm Chief Complaint Admit Date DCCV Discussion December 09, 2024 8:48a m 1 Y FU/Prolia - B&B December 09, 2024 11:17 am S/O PT/INR - COPY PCP December 16, 2024 6:2 7am TACHYCARDIA December 23, 2024 9:56a m TACHYCARDIA December 23, 2024 10:10 am EKG check December 29, 2024 2:57p m NICOTINE DEP January 02, 2025 5:55p m S/O PT/INR - COPY PCP January 16, 2025 7: 01am 3 M FU January 20, 2025 9:34 am S/O PT/INR - COPY PCP February 16, 2025 8: 21am 1 Y FU March 04, 2025 8:4 7am S/O PT/INR - COPY PCP March 18, 2025 3:00pm 3 M FU April 08, 2025 10:06am Reason for Visit Admit Date Chronic anticoagulation December 09, 2024 8 :48am Atrial fibrillation and flutter November 8:48am Essential hypertension December 09, 2024 8: 48am Osteoporosis December 09, 2024 11:17 am Type 2 diabetes mellitus December 09, 2024 11:17am Barretts esophagus December 30, 2024 10:55 am Smoking greater than 40 pack years January 20, 2025 9:34am Thrush, oral January 20, 2025 9:34 am Hypoxia January 20, 2025 9:34 am Lung nodule January 20, 2025 9:34 am Obstructive sleep apnea January 20, 2025 9:34am Pulmonary hypertension January 20, 2025 9 :34am Stage 1 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 January 20, 2025 9:34am Chronic anticoagulation March 04, 2025 8:47am Atrial fibrillation and flutter March [id number] 8:47am Essential hypertension March 04, 2025 8:47am Smoking greater than 40 pack years Septe [id number] 10:06am Thrush, oral April 08, 2025 10:06am Hypoxia April 08, 2025 10:06am Lung nodule April 08, 2025 10:06am Obstructive sleep apnea April 08, 2025 10:06am Pulmonary hypertension April 08 10:06am Stage 1 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 April 08, 2025 10:06am Chief Complaint Admit Date TACHYCARDIA December 23, 2024 9:56a m TACHYCARDIA December 23, 2024 10:10 am EKG check December 29, 2024 2:57p m NICOTINE DEP January 02, 2025 5:55p m S/O PT/INR - COPY PCP January 16, 2025 7: 01am 3 M FU January 20, 2025 9:34 am S/O PT/INR - COPY PCP February 16, 2025 8: 21am 1 Y FU March 04, 2025 8:4 7am S/O PT/INR - COPY PCP March 18, 2025 3:00pm 3 M FU April 08, 2025 10:06am 6 WK FU/Needs EKG April 16, 2025 11:12am Reason for Visit Admit Date Barretts esophagus December 30, 2024 10:55 am Smoking greater than 40 pack years January 20, 2025 9:34am Hypoxia January 20, 2025 9:34 am Lung nodule January 20, 2025 9:34 am Obstructive sleep apnea January 20, 2025 9:34am Pulmonary hypertension January 20, 2025 9 :34am Stage 1 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 January 20, 2025 9:34am Thrush, oral January 20, 2025 9:34 am Chronic anticoagulation March 04, 2025 8:47am Atrial fibrillation and flutter March [id number] 8:47am Essential hypertension March 04, 2025 8:47am Smoking greater than 40 pack years Ibeth 2024 10:06am Hypoxia April 08, 2025 10:06am Lung nodule April 08, 2025 10:06am Obstructive sleep apnea April 08, 2025 10:06am Pulmonary hypertension April 08 10:06am Stage 1 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 April 08, 2025 10:06am Thrush, oral April 08, 2025 10:06am Chronic anticoagulation April 16, 2025 11:12am Atrial fibrillation and flutter Septembe r 2024 11:12am Essential hypertension April 16 11:12am Additional Source Comments (unrecognized sect ion and content) No Status Records FoundNo Status Records FoundNo Status Records Found INFORMATION SOURCE (unrecogn ized section and content) DATE CREATED AUTHOR 12/19/2018 [facility] DATE CREATED AUTHOR AUTHOR'S ORGANIZ ATION 01/10/2025 [facility] DATE CREATED AUTHOR AUTHOR'S ORGANIZ ATION 04/23/[address] [facility] Source Comments (unrecognize d section and content) In the event this informatio n is protected by the Federal Confidentiality of Alcohol and Drug Abuse Patient Records regulations: The Federal rules restrict any use of the information to criminally investigate or prosecute any alcohol or drug abuse patient.[facility] the event this information is protected by the Federal Confidentiality of Alcohol and Drug Abuse Patient Records regulations: The Federal rules restrict any use of the information to criminally investigate or prosecute any alcohol or drug abuse patient.[facility] the event this information is protected by the Federal Confidentiality of Alcohol and Drug Abuse Patient Records regulations: The Federal rules restrict any use of the information to criminally investigate or prosecute any alcohol or drug abuse patient.[facility] the event this information is protected by the Federal Confidentiality of Alcohol and Drug Abuse Patient Records regulations: The Federal rules restrict any use of the information to criminally investigate or prosecute any alcohol or drug abuse patient.[facility] the event this information is protected by the Federal Confidentiality of Alcohol and Drug Abuse Patient Records regulations: The Federal rules restrict any use of the information to criminally investigate or prosecute any alcohol or drug abuse patient.[facility] the event this information is protected by the Federal Confidentiality of Alcohol and Drug Abuse Patient Records regulations: The Federal rules restrict any use of the information to criminally investigate or prosecute any alcohol or drug abuse patient.[facility] the event this information is protected by the Federal Confidentiality of Alcohol and Drug Abuse Patient Records regulations: The Federal rules restrict any use of the information to criminally investigate or prosecute any alcohol or drug abuse patient.[facility] the event this information is protected by the Federal Confidentiality of Alcohol and Drug Abuse Patient Records regulations: The Federal rules restrict any use of the information to criminally investigate or prosecute any alcohol or drug abuse patient.[facility] Reason for Visit (unrecogniz ed section and content) Reason Comments Appointment Reason Comments Follow Up A fib Reason Comments Results Reason Comments CARD Follow Up Annual Persistent a-fib Reason Comments CARD Follow Up Annual YEARLY PAF CHECK U P Reason Comments Consult Goals (unrecognized section and content) Goals may [...] 2024 End: September 26, 2024 Franky Galloway CHANGE PERSON, CHANGE PERSON-C Attending Provider Active S tart: September 17, 2024 End: September 26, 2024 Franky Galloway CHANGE PERSON, CHANGE PERSON-C Referring Provider Active S tart: September 17, 2024 End: September 26, 2024 Dr. Rodríguez Portillo MD Other Provider Active Start: September 17, 2024 End: September 26, 2024 Adriel Khan MD Primary Care Provider Active St art: September 17, 2024 End: September 26, 2024 Adriel Khan MD Other Provider Active Start: [facility] 2024 End: September 26, 2024 Team Status: Inactive Member Role Status Dates Dr. Neeraj Daugherty MD Family Provider Active Sta rt: October 13, 2024 End: October 13, 2024 Franky Gallowya CHANGE PERSON, CHANGE PERSON-C Attending Provider Active S tart: October 13, 2024 End: October 13, 2024 Franky Galloway CHANGE PERSON, CHANGE PERSON-C Referring Provider Active S tart: October 13, 2024 End: October 13, 2024 Dr. Rodríguez Portillo MD Other Provider Active Start: October 13, 2024 End: October 13, 2024 Adriel Khan MD Primary Care Provider Active St art: October 13, 2024 End: October 13, 2024 Adriel Khan MD Other Provider Active Start: [facility] 2024 End: October 13, 2024 Team Status: [...] 2024 End: November 26, 2024 Franky Galloway CHANGE PERSON, CHANGE PERSON-C Attending Provider Active S tart: November 24, 2024 End: November 26, 2024 Franky Galloway CHANGE PERSON, CHANGE PERSON-C Referring Provider Active S tart: November 24, [...] 2024 Team Status: Active Member Role Status Dr. Neeraj Daugherty MD Family Provider Active Sta rt: December 16, 2024 Franky Galloway CHANGE PERSON, CHANGE PERSON-C Attending Provider Active S tart: December 16, 2024 Franky Galloway CHANGE PERSON, CHANGE PERSON-C Referring Provider Active S tart: December 16, 2024 Dr. Rodríguez Portillo MD Other Provider Active Start: December 16, 2024 Adriel Khan MD Primary Care Provider Active St art: December 16, 2024 Adriel Khan MD Other Provider Active Start: 2024 Team Status: Inactive Member Role Status [...] Care Provider, Referring Provider Active Angelita Macedo CHANGE PERSON, CHANGE PERSON-C Attending Provider Active Team Status: Inactive Member Role Status Dates Dr. Neeraj Daugherty MD Primary Care Provider, Referring Provider Active Priya Sung CHANGE PERSON, CHANGE PERSON-C Attending Provider Active Team Status: Active Member Role Status Dates Dr. Neeraj Daugherty MD Primary Care Provider, Referring Provider Active Dr. Pablo Pichardo DO Attending Provider, Other Prov ider Active Team Status: Inactive Member Role Status Dates Dr. Neeraj Daugherty MD Primary Care Provider, Referring Provider Active Franky Galloway CHANGE PERSON, CHANGE PERSON-C Attending Provider Active Team Status: Inactive Member [...] Primary Care Provider, Referring Provider Active Nirav CANTRELL, PA Attending Provider Active Team Status: Inactive [...] Jahaira Cerna DO Primary Care Provider Active Flooring Mechanic Relationship Specialty Start Date End Date Neeraj Daugherty MD [address] [place], [place] [id number] PCP - General Family Medicine 12/04/22 Parveen Portillo [address] [place] [phone] Specialty Senior Mortgage Loan Processor Cardiology 05/03/16 Dwayne Wells MD [address] [place] [address] Specialty Senior Mortgage Loan Processor Cardiology 05/16/17 Team Status: Inactive Member Role Status Dates Dr. Neeraj Daugherty MD Referring Provider Active Dr. Alexander Calzada MD Attending Provider Active Jahaira Cerna DO Primary Care Provider Active Team Status: Inactive Member Role Status Dates Angelita Macedo CHANGE PERSON, CHANGE PERSON-C Attending Provider, Referrin g Provider Active Jahaira Cerna DO Primary Care Provider Active Team Status: Inactive Member Role Status Dates Dr. Neeraj Daugherty MD Family Provider Active Jahaira Cerna DO Primary Care Provider Active Franky Galloway CHANGE PERSON, CHANGE PERSON-C Attending Provider, Referring Pro vider Active Team Status: Inactive Member Role Status Dates Dr. Neeraj Daugherty MD Referring Provider Active Dionna Self PA, PA Attending Provider Active Jahaira Cerna DO Primary Care Provider Active Team Status: Inactive Member Role Status Dates Dr. Neeraj Daugherty MD Referring Provider Active Priya Sung CHANGE PERSON, CHANGE PERSON-C Attending Provider Active Jahaira Cerna DO Primary Care Provider Active Team Status: Active Member Role Status Dates Dr. Neeraj Daugherty MD Family Provider Active Jahaira Cerna DO Primary Care Provider Active Franky Galloway CHANGE PERSON, CHANGE PERSON-C Attending Provider, Referring Pro vider Active Team Status: Inactive Member Role Status Dates Jahaira Cerna , DO Primary Care Provider Active Dr. Sadi Daniel MD Emergency Provider Active Team Status: Inactive Member Role Status Dates Jahaira Cerna , DO Primary Care Provider Active Priya Sung CHANGE PERSON, CHANGE PERSON-C Attending Provider, Referrin g Provider Active Team Status: Inactive Member Role Status Dates Jahaira Cerna , DO Primary Care Provider Active Dr. Sadi Daniel MD Attending Provider, Emergency Provider Active Team Status: Inactive Member Role Status Dates Jahairaoliver Cerna , DO Primary Care Provi izabel, [...] Member Role Status Dates Jahaira Cerna , Primary Care Provider Active Dr. Pablo Pichardo [...] DO Primary Care Provider Active Franky Galloway CHANGE PERSON, CHANGE PERSON-C Attending Provider, Referring Pro vider Active Dr. Rodríguez Portillo MD Other Provider Active Team Status: Inactive Member Role Status Dates Dr. Neeraj Daugherty MD Family Provider Active Jahaira Cerna DO Primary Care Provider Active Franky Galloway CHANGE PERSON, CHANGE PERSON-C Attending Provider, Referring Pro vider Active Dr. Rodríguez Portillo MD Other Provider Active Team Status: Inactive Member Role Status Dates Jahaira Cerna , Primary Care Provider Active Dr. Rodríguez Portillo MD Attending Provider, Referring Provi izabel Active Flooring Mechanic Relationship Specialty Start Date End Date Adriel Khan MD [address] [place] [address] PCP - General Internal Medicine 12/06/23 Dwayne Wells MD [address] [place] [phone] (Fax) Specialty Senior Mortgage Loan Processor Cardiology 05/16/17 Group, [facility] [address] [place] [address] Specialty Senior Mortgage Loan Processor Cardiology 12/05/23 Tray Santiago MD [address] [place] [address] Specialty Senior Mortgage Loan Processor Cardiology 12/06/23 Pablo Pichardo DO [address] [place] [address] Specialty Senior Mortgage Loan Processor Gastroenterology 12/06/23 Flooring Mechanic Relationship Specialty Start Date End Date Adriel Khan MD [address] [place] [address] PCP - General Internal Medicine 12/06/23 Dwayne Wells MD [address] [place] [address] Specialty Senior Mortgage Loan Processor Cardiology 05/16/17 Group, [place] [facility] [address] [place] [address] Specialty Senior Mortgage Loan Processor Cardiology 12/05/23 Tray Santiago MD [address] [place], [place] [phone] Specialty Senior Mortgage Loan Processor Cardiology 12/06/23 Pablo Pichardo DO [address] [place] [address] Specialty Senior Mortgage Loan Processor Gastroenterology 12/06/23 Flooring Mechanic Relationship Specialty Start Date End Date Adriel Khan MD [address] [place], [place] [id number] PCP - General Internal Medicine 12/06/23 Dwayne Wells MD [address] [place] [address] Specialty Senior Mortgage Loan Processor Cardiology 05/16/17 Group, [facility] [address] [place] [address] Specialty Senior Mortgage Loan Processor Cardiology 12/05/23 Tray Santiago MD [address] [place] [address] Specialty Senior Mortgage Loan Processor Cardiology 12/06/23 Pablo Pichardo DO [address] [place] [address] Specialty Senior Mortgage Loan Processor Gastroenterology 12/06/23 Team Status: Active Member Role [...] 03, 2024 End: July 03, 2024 Dionna CANTRELL, PA Attending Provider Active Start: July 03, 2024 End: July 03, 2024 Dionna CANTRELL, PA Referring Provider Active Start: July 03, 2024 End: July 03, 2024 Team Status: Active Member Role Status Dates Adriel Khan MD Primary Care Provider Active St art: July 03, 2024 Dr. Tray Santiago MD Attending Provider Active S tart: July 03, 2024 Dionna CANTRELL, PA Referring Provider Active Start: July 03, 2024 Team Status: Inactive Member Role Status Dates Dr. Neeraj Daugherty MD Family Provider Active Sta rt: July 09, 2024 End: July 09, 2024 Franky Galloway CHANGE PERSON, CHANGE PERSON-C Attending Provider Active S tart: July 09, 2024 End: July 09, 2024 Franky Galloway CHANGE PERSON, CHANGE PERSON-C Referring Provider Active S tart: July 09, [...] 2024 End: July 16, 2024 Angelita Macedo CHANGE PERSON, CHANGE PERSON-C Attending Provider Active Start: July 16, 2024 [...] 2024 End: August 05, 2024 Angelita Macedo CHANGE PERSON, CHANGE PERSON-C Attending Provider Active Start: August 05, 2024 End: August 05, 2024 Angelita Macedo CHANGE PERSON, CHANGE PERSON-C Referring Provider Active Start: August 05, 2024 [...] 2024 End: August 26, 2024 Franky Galloway CHANGE PERSON, CHANGE PERSON-C Attending Provider Active S tart: August 26, 2024 End: August 26, 2024 Franky Galloway CHANGE PERSON, CHANGE PERSON-C Referring Provider Active S tart: August 26, [...] 2024 End: August 26, 2024 Angelita Macedo CHANGE PERSON, CHANGE PERSON-C Attending Provider Active Start: August 26, 2024 End: August 26, 2024 Angelita Macedo CHANGE PERSON, CHANGE PERSON-C Referring Provider Active Start: August 26, 2024 End: August 26, 2024 Flooring Mechanic Relationship Specialty Start Date End Date Adriel Khan MD [address] [place], [place] [address] PCP - General Internal Medicine 12/06/23 Dwayne Wells MD [address] [place] [id number] Specialty Senior Mortgage Loan Processor Cardiology 05/16/17 Tray Santiago MD [address] [facility] [address] [place], [place] [address] Specialty Senior Mortgage Loan Processor Cardiology 12/06/23 Pablo Pichardo DO [address] [facility] [address] [place] [address] Specialty Senior Mortgage Loan Processor Gastroenterology 12/06/23 Dash Uriarte [address] [facility] [address] Specialty Senior Mortgage Loan Processor Pulmonary Disease 12/04/24 Franky Galloway APRN.CNP [address] [facility] [address] [place], [place] [id number] Nurse Practitioner Cardiology 12/04/24 Team Status: Active Member Role Status Dates Dr. Neeraj Daugherty MD Family Provider Active Sta rt: December 09, 2024 Franky Galloway CHANGE PERSON, CHANGE PERSON-C Attending Provider Active S tart: December 09, 2024 Franky Galloway CHANGE PERSON, CHANGE PERSON-C Referring Provider Active S tart: December 09, 2024 Dr. Rodríguez Portillo MD Other Provider Active Start: December 09, 2024 Adriel Khan MD Primary Care Provider Active St art: December 09, 2024 Adriel Khan MD Other Provider Active Start: Maile bowden 2024 Team Status: Inactive Member Role Status Dates Dr. Neeraj Daugherty MD Family Provider Active Sta rt: December 16, 2024 End: December 16, 2024 Franky Galloway CHANGE PERSON, CHANGE PERSON-C Attending Provider Active S tart: December 16, 2024 End: December 16, 2024 Franky Galloway CHANGE PERSON, CHANGE PERSON-C Referring Provider Active S tart: December 16, 2024 End: December 16, 2024 Dr. Rodríguez Portillo MD Other Provider Active Start: December 16, 2024 End: December 16, 2024 Adriel Khan MD Primary Care Provider Active St art: December 16, 2024 End: December 16, 2024 Adriel Khan MD Other Provider Active Start: 2024 End: December 16, 2024 Team Status: Inactive Member Role Status Dates Adriel Khan MD Primary Care Provider Active St art: December 29, 2024 End: December 29, 2024 Adriel Khan MD Referring Provider Active Start : December 29, 2024 End: December 29, 2024 Dr. Lynn Medina MD Attending Provider Active Start: December 29, 2024 End: December 29, 2024 Flooring Mechanic Relationship Specialty Start Date End Date Adriel Khan MD [address] [place] [address] PCP - General Internal Medicine 12/06/23 Dwayne Wells MD [address] [place] [address] Specialty Senior Mortgage Loan Processor Cardiology 05/16/17 Tray Santiago MD [address] [facility] [address] [place], [place] [id number] Specialty Senior Mortgage Loan Processor Cardiology 12/06/23 Pablo Pichardo DO [address] [facility] [address] [place], [place] [id number] Specialty Senior Mortgage Loan Processor Gastroenterology 12/06/23 Dash Uriarte [address] [place] [id number] Specialty Senior Mortgage Loan Processor Pulmonary Disease 12/04/24 Franky Galloway APRN.MEAT PACKER [address] [place], [place] [address] Nurse Practitioner Cardiology 12/04/24 Team Status: Active Member Role Status Dates Adriel Khan MD Primary Care Provider Active St art: December 23, 2024 Dr. Lynn Medina MD Attending Provider Active Start: December 23, 2024 TAMIA Perez Referring Provider Active St art: December 23, 2024 Team Status: Inactive Member Role Status Dates Adriel Khan MD Primary Care Provider Active St art: December 30, 2024 End: December 30, 2024 Adriel Khan MD Referring Provider Active Start : December 30, 2024 End: December 30, 2024 Dr. Pablo Pichardo DO Attending Provider Active Start: December 30, 2024 End: December 30, 2024 Team Status: Active Member Role Status Dates Adriel Khan MD Primary Care Provider Active St art: December 30, 2024 Adriel Khan MD Referring Provider Active Start : December 30, 2024 Dr. Pablo Pichardo DO Attending Provider Active Start: December 30, 2024 Dr. Pablo Pichardo DO Other Provider Active St art: December 30, 2024 Team Status: Inactive Member Role Status Dates Adriel Khan MD Primary Care Provider Active St art: January 02, 2025 End: January 02, 2025 Angelita Macedo CHANGE PERSON, CHANGE PERSON-C Attending Provider Active Start: January 02, 2025 End: January 02, 2025 Angelita Macedo CHANGE PERSON, CHANGE PERSON-C Referring Provider Active Start: January 02, 2025 End: January 02, 2025 Team Status: Active Member Role Status Dates Dr. Neeraj Daugherty MD Family Provider Active Sta rt: January 07, 2025 Franky Galloway CHANGE PERSON, CHANGE PERSON-C Attending Provider Active S tart: January 07, 2025 Franky Galloway CHANGE PERSON, CHANGE PERSON-C Referring Provider Active S tart: January 07, 2025 Dr. Rodríguez Portillo MD Other Provider Active Start: January 07, 2025 Adriel Khan MD Primary Care Provider Active St art: January 07, 2025 Adriel Khan MD Other Provider Active Start: [facility] 2024 Team Status: Active Member Role Status Dates Dr. Neeraj Daugherty MD Family Provider Active Sta rt: January 16, 2025 Franky Galloway CHANGE PERSON, CHANGE PERSON-C Attending Provider Active S tart: January 16, 2025 Franky Galloway CHANGE PERSON, CHANGE PERSON-C Referring Provider Active S tart: January 16, 2025 Dr. Rodríguez Portillo MD Other Provider Active Start: January 16, 2025 Adriel Khan MD Primary Care Provider Active St art: January 16, 2025 Adriel Khan MD Other Provider Active Start: [facility] 2024 Team Status: Inactive Member Role Status Dates Adriel Khan MD Primary Care Provider Active St art: January 20, 2025 End: January 20, 2025 Adriel Khan MD Referring Provider Active Start : January 20, 2025 End: January 20, 2025 Gladys Smith NP-C Attending Provider Active Start: January 20, 2025 End: January 20, 2025 Team Status: Active Member Role/Relationship Status Dates Dr. Neeraj Daugherty MD Family Provider Active Adriel Khan MD Primary Care Provider Active Team Status: Inactive Member Role/Relationship Status Dates Dr. Neeraj Daugherty MD Family Provider Active Sta rt: October 13, 2024 End: October 13, 2024 Franky Galloway CHANGE PERSON, CHANGE PERSON-C Attending Provider Active S tart: October 13, 2024 End: October 13, 2024 Franky Galloway CHANGE PERSON, CHANGE PERSON-C Referring Provider Active S tart: October 13, 2024 End: October 13, 2024 Dr. Rodríguez Portillo MD Other Provider Active Start: October 13, 2024 End: October 13, 2024 Adriel Khan MD Primary Care Provider Active St art: October 13, 2024 End: October 13, 2024 Adriel Khan MD Other Provider Active Start: [facility] 2024 End: October 13, 2024 Team Status: Inactive Member Role/Relationship Status Dates Adriel Khan MD Primary Care Provider Active St art: October 15, 2024 End: October 15, 2024 Adriel Khan MD Referring Provider Active Start : October 15, 2024 End: October 15, 2024 Gladys Smith NP-C Attending Provider Active Start: October 15, 2024 End: October 15, 2024 Team Status: Inactive Member Role/Relationship Status Dates Dr. Neeraj Daugherty MD Family Provider Active Sta rt: November 24, 2024 End: November 26, 2024 Franky Galloway CHANGE PERSON, CHANGE PERSON-C Attending Provider Active S tart: November 24, 2024 End: November 26, 2024 Franky Galloway CHANGE PERSON, CHANGE PERSON-C Referring Provider Active S tart: November 24, 2024 End: November 26, 2024 Dr. Rodríguez Portillo MD Other Provider Active Start: November 24, 2024 End: November 26, 2024 Adriel Khan MD Primary Care Provider Active St art: November 24, 2024 End: November 26, 2024 Adriel Khan MD Other Provider Active Start: Ap 2024 End: November 26, 2024 Team Status: Inactive Member Role/Relationship Status Dates Adriel Khan MD Primary Care Provider Active St art: November 25, 2024 End: November 25, 2024 Dr. Gagandeep Arechiga DO Attending Provider Active Start: November 25, 2024 End: November 25, 2024 Dr. Gagandeep Arechiga DO Emergency Provider Active Start: November 25, 2024 End: November 25, 2024 Team Status: Inactive Member Role/Relationship Status Kaela Khan MD Primary Care Provider Active St art: December 09, 2024 End: December 09, 2024 Adriel Khan MD Referring Provider Active Start : December 09, 2024 End: December 09, 2024 TAMIA Perez Attending Provider Active St art: December 09, 2024 End: December 09, 2024 Team Status: Inactive Member Role/Relationship Status Kaela Khan MD Primary Care Provider Active St art: December 09, 2024 End: December 09, 2024 Adriel Khan MD Referring Provider Active Start : December 09, 2024 End: December 09, 2024 Dr. Rodríguez Portillo MD Attending Provider Active Sta rt: December 09, 2024 End: December 09, 2024 Team Status: Inactive Member Role/Relationship Status Dates Dr. Neeraj Daugherty MD Family Provider Active Sta rt: December 16, 2024 End: December 16, 2024 Franky Galloway CHANGE PERSON, CHANGE PERSON-C Attending Provider Active S tart: December 16, 2024 End: December 16, 2024 Franky Galloway CHANGE PERSON, CHANGE PERSON-C Referring Provider Active S tart: December 16, 2024 End: December 16, 2024 Dr. Rodríguez Portillo MD Other Provider Active Start: December 16, 2024 End: December 16, 2024 Adriel Khan MD Primary Care Provider Active St art: December 16, 2024 End: December 16, 2024 Adriel Khan MD Other Provider Active Start: [place] [facility] 2024 End: December 16, 2024 Team Status: Inactive Member Role/Relationship Status Dates Adriel Khan MD Primary Care Provider Active St art: December 23, 2024 End: December 23, 2024 TAMIA Perez Attending Provider Active St art: December 23, 2024 End: December 23, 2024 TAMIA Perez Referring Provider Active St art: December 23, 2024 End: December 23, 2024 Team Status: Active Member Role/Relationship Status Kaela Khna MD Primary Care Provider Active St art: December 23, 2024 Dr. Lynn Medina MD Attending Provider Active Start: December 23, 2024 TAMIA Perez Referring Provider Active St art: December 23, 2024 Team Status: Inactive Member Role/Relationship Status Dates Adriel Khan MD Primary Care Provider Active St art: December 29, 2024 End: December 29, 2024 Adriel Khan MD Referring Provider Active Start : December 29, 2024 End: December 29, 2024 Dr. Lynn Medina MD Attending Provider Active Start: December 29, 2024 End: December 29, 2024 Team Status: Inactive Member Role/Relationship Status Kaela Khan MD Primary Care Provider Active St art: December 30, 2024 End: December 30, 2024 Adriel Khan MD Referring Provider Active Start : December 30, 2024 End: December 30, 2024 Dr. Pablo Pichardo DO Attending Provider Active Start: December 30, 2024 End: December 30, 2024 Team Status: Active Member Role/Relationship Status Kaela Khan MD Primary Care Provider Active St art: December 30, 2024 Adriel Khan MD Referring Provider Active Start : December 30, 2024 Dr. Pablo Pichardo DO Attending Provider Active Start: December 30, 2024 Dr. Pablo Pichardo DO Other Provider Active St art: December 30, 2024 Team Status: Inactive Member Role/Relationship Status Dates Adriel Khan MD Primary Care Provider Active St art: January 02, 2025 End: January 02, 2025 Angelita Macedo CHANGE PERSON, CHANGE PERSON-C Attending Provider Active Start: January 02, 2025 End: January 02, 2025 Angelita Macedo CHANGE PERSON, CHANGE PERSON-C Referring Provider Active Start: January 02, 2025 End: January 02, 2025 Team Status: Inactive Member Role/Relationship Status Dates Dr. Neeraj Daugherty MD Family Provider Active Sta rt: January 16, 2025 End: January 16, 2025 Franky Galloway CHANGE PERSON, CHANGE PERSON-C Attending Provider Active S tart: January 16, 2025 End: January 16, 2025 Franky Galloway CHANGE PERSON, CHANGE PERSON-C Referring Provider Active S tart: January 16, 2025 End: January 16, 2025 Dr. Rodríguez Portillo MD Other Provider Active Start: January 16, 2025 End: January 16, 2025 Adriel Khan MD Primary Care Provider Active St art: January 16, 2025 End: January 16, 2025 Adriel Khan MD Other Provider Active Start: 2024 End: January 16, 2025 Team Status: Inactive Member Role/Relationship Status Dates Adriel Khan MD Primary Care Provider Active St art: January 20, 2025 End: January 20, 2025 Adriel Khan MD Referring Provider Active Start : January 20, 2025 End: January 20, 2025 Gladys Smith NP-C Attending Provider Active Start: January 20, 2025 End: January 20, 2025 Team Status: Inactive Member Role/Relationship Status Dates Dr. Neeraj Daugherty MD Family Provider Active Sta rt: November 24, 2024 End: November 26, 2024 Franky Galloway CHANGE PERSON, CHANGE PERSON-C Attending Provider Active S tart: November 24, 2024 End: November 26, 2024 Franky Galloway CHANGE PERSON, CHANGE PERSON-C Referring Provider Active S tart: November 24, 2024 End: November 26, 2024 Dr. Rodríguez Portillo MD Other Provider Active Start: November 24, 2024 End: November 26, 2024 Adriel Khan MD Primary Care Provider Active St art: November 24, 2024 End: November 26, 2024 Adriel Khan MD Other Provider Active Start: 2024 End: November 26, 2024 Team Status: Inactive Member Role/Relationship Status Dates Adriel Khan MD Primary Care Provider Active St art: November 25, 2024 End: November 25, 2024 Dr. Gagandeep Arechiga DO Attending Provider Active Start: November 25, 2024 End: November 25, 2024 Dr. Gagandeep Arechiga DO Emergency Provider Active Start: November 25, 2024 End: November 25, 2024 Team Status: Inactive Member Role/Relationship Status Kaela Khan MD Primary Care Provider Active St art: December 09, 2024 End: December 09, 2024 Adriel Khan MD Referring Provider Active Start : December 09, 2024 End: December 09, 2024 TAMIA Perez Attending Provider Active St art: December 09, 2024 End: December 09, 2024 Team Status: Inactive Member Role/Relationship Status Dates Adriel Khan MD Primary Care Provider Active St art: December 09, 2024 End: December 09, 2024 Adriel Khan MD Referring Provider Active Start : December 09, 2024 End: December 09, 2024 Dr. Rodríguez Portillo MD Attending Provider Active Sta rt: December 09, 2024 End: December 09, 2024 Team Status: Inactive Member Role/Relationship Status Dates Dr. Neeraj Daugherty MD Family Provider Active Sta rt: December 16, 2024 End: December 16, 2024 Franky Galloway CHANGE PERSON, CHANGE PERSON-C Attending Provider Active S tart: December 16, 2024 End: December 16, 2024 Franky Galloway CHANGE PERSON, CHANGE PERSON-C Referring Provider Active S tart: December 16, 2024 End: December 16, 2024 Dr. Rodríguez Portillo MD Other Provider Active Start: December 16, 2024 End: December 16, 2024 Adriel Khan MD Primary Care Provider Active St art: December 16, 2024 End: December 16, 2024 Adriel Khan MD Other Provider Active Start: 2024 End: December 16, 2024 Team Status: Inactive Member Role/Relationship Status Kaela Khan MD Primary Care Provider Active St art: December 23, 2024 End: December 23, 2024 TAMIA Perez Attending Provider Active St art: December 23, 2024 End: December 23, 2024 TAMIA Perez Referring Provider Active St art: December 23, 2024 End: December 23, 2024 Team Status: Active Member Role/Relationship Status Kaela Khan MD Primary Care Provider Active St art: December 23, 2024 Dr. Lynn Medina MD Attending Provider Active Start: December 23, 2024 TAMIA Perez Referring Provider Active St art: December 23, 2024 Team Status: Inactive Member Role/Relationship Status Kaela Khan MD Primary Care Provider Active St art: December 29, 2024 End: December 29, 2024 Adriel Khan MD Referring Provider Active Start : December 29, 2024 End: December 29, 2024 Dr. Lynn Medina MD Attending Provider Active Start: December 29, 2024 End: December 29, 2024 Team Status: Inactive Member Role/Relationship Status Kaela Khan MD Primary Care Provider Active St art: December 30, 2024 End: December 30, 2024 Adriel Khan MD Referring Provider Active Start : December 30, 2024 End: December 30, 2024 Dr. Pablo Pichardo DO Attending Provider Active Start: December 30, 2024 End: December 30, 2024 Team Status: Active Member Role/Relationship Status Kaela Khan MD Primary Care Provider Active St art: December 30, 2024 Adriel Khan MD Referring Provider Active Start : December 30, 2024 Dr. Pablo Pichardo DO Attending Provider Active Start: December 30, 2024 Dr. Pablo Pichardo DO Other Provider Active St art: December 30, 2024 Team Status: Inactive Member Role/Relationship Status Kaela Khan MD Primary Care Provider Active St art: January 02, 2025 End: January 02, 2025 Angelita Macedo CHANGE PERSON, CHANGE PERSON-C Attending Provider Active Start: January 02, 2025 End: January 02, 2025 Angelita Macedo NP CHANGE PERSON-C Referring Provider Active Start: January 02, 2025 End: January 02, 2025 Team Status: Inactive Member Role/Relationship Status Dates Dr. Neeraj Daugherty MD Family Provider Active Sta rt: January 16, 2025 End: January 16, 2025 Franky Galloway CHANGE PERSON, CHANGE PERSON-C Attending Provider Active S tart: January 16, 2025 End: January 16, 2025 Franky Galloway CHANGE PERSON, CHANGE PERSON-C Referring Provider Active S tart: January 16, 2025 End: January 16, 2025 Dr. Rodríguez Portillo MD Other Provider Active Start: January 16, 2025 End: January 16, 2025 Adriel Khan MD Primary Care Provider Active St art: January 16, 2025 End: January 16, 2025 Adriel Khan MD Other Provider Active Start: 2024 End: January 16, 2025 Team Status: Inactive Member Role/Relationship Status Dates Adriel Khan MD Primary Care Provider Active St art: January 20, 2025 End: January 20, 2025 Adriel Khan MD Referring Provider Active Start : January 20, 2025 End: January 20, 2025 Gladys Smith NP-C Attending Provider Active Start: January 20, 2025 End: January 20, 2025 Team Status: Active Member Role/Relationship Status Dates Dr. Neeraj Daugherty MD Family Provider Active Sta rt: February 16, 2025 Franky Galloway CHANGE PERSON, CHANGE PERSON-C Attending Provider Active S tart: February 16, 2025 Franky Galloway CHANGE PERSON, CHANGE PERSON-C Referring Provider Active S tart: February 16, 2025 Dr. Rodríguez Portillo MD Other Provider Active Start: February 16, 2025 Adriel Khan MD Primary Care Provider Active St art: February 16, 2025 Adriel Khan MD Other Provider Active Start: 2024 Team Status: Inactive Member Role/Relationship Status Dates Adriel Khan MD Primary Care Provider Active St art: February 17, 2025 End: February 17, 2025 Adriel Khan MD Attending Provider Active Start : February 17, 2025 End: February 17, 2025 Adriel Khan MD Referring Provider Active Start : February 17, 2025 End: February 17, 2025 Team Status: Active Member Role/Relationship Status Dates Adriel Khan MD Primary Care Provider Active St art: February 20, 2025 Jake Licea CHANGE PERSON, CHANGE PERSON-C Attending Provider Active Start: February 20, 2025 Team Status: Inactive Member Role/Relationship Status Dates Adriel Khan MD Primary Care Provider Active St art: February 20, 2025 End: February 20, 2025 Jake Licea CHANGE PERSON, CHANGE PERSON-C Attending Provider Active Start: February 20, 2025 End: February 20, 2025 Team Status: Inactive Member Role/Relationship Status Dates Dr. Neeraj Daugherty MD Family Provider Active Sta rt: February 16, 2025 End: February 26, 2025 Franky Galloway CHANGE PERSON, CHANGE PERSON-C Attending Provider Active S tart: February 16, 2025 End: February 26, 2025 Franky Galloway CHANGE PERSON, CHANGE PERSON-C Referring Provider Active S tart: February 16, 2025 End: February 26, 2025 Dr. Rodríguez Portillo MD Other Provider Active Start: February 16, 2025 End: February 26, 2025 Adriel Khan MD Primary Care Provider Active St art: February 16, 2025 End: February 26, 2025 Adriel Khan MD Other Provider Active Start: 2024 End: February 26, 2025 Team Status: Inactive Member Role/Relationship Status Dates Adriel Khan MD Primary Care Provider Active St art: March 04, 2025 End: March 04, 2025 Adriel Khan MD Referring Provider Active Start : March 04, 2025 End: March 04, 2025 Dionna CANTRELL, PA Attending Provider Active Start: March 04, 2025 End: March 04, 2025 Team Status: Inactive Member Role/Relationship Status Kaela Khan MD Primary Care Provider Active St art: December 09, 2024 End: December 09, 2024 Adriel Khan MD Referring Provider Active Start : December 09, 2024 End: December 09, 2024 TAMIA Perez Attending Provider Active St art: December 09, 2024 End: December 09, 2024 Team Status: Inactive Member Role/Relationship Status Kaela Khan MD Primary Care Provider Active St art: December 09, 2024 End: December 09, 2024 Adriel Khan MD Referring Provider Active Start : December 09, 2024 End: December 09, 2024 Dr. Rodríguez Portillo MD Attending Provider Active Sta rt: December 09, 2024 End: December 09, 2024 Team Status: Inactive Member Role/Relationship Status Dates Dr. Neeraj Daugherty MD Family Provider Active Sta rt: December 16, 2024 End: December 16, 2024 Franky Galloway CHANGE PERSON, CHANGE PERSON-C Attending Provider Active S tart: December 16, 2024 End: December 16, 2024 Franky Galloway CHANGE PERSON, CHANGE PERSON-C Referring Provider Active S tart: December 16, 2024 End: December 16, 2024 Dr. Rodríguez Portillo MD Other Provider Active Start: December 16, 2024 End: December 16, 2024 Adriel Khan MD Primary Care Provider Active St art: December 16, 2024 End: December 16, 2024 Adriel Khan MD Other Provider Active Start: Pa kal 2024 End: December 16, 2024 Team Status: Inactive Member Role/Relationship Status Dates Adriel Khan MD Primary Care Provider Active St art: December 23, 2024 End: December 23, 2024 TAMIA Perez Attending Provider Active St art: December 23, 2024 End: December 23, 2024 TAMIA Perez Referring Provider Active St art: December 23, 2024 End: December 23, 2024 Team Status: Active Member Role/Relationship Status Dates Adriel Khan MD Primary Care Provider Active St art: December 23, 2024 Dr. Lynn Medina MD Attending Provider Active Start: December 23, 2024 TAMIA Perez Referring Provider Active St art: December 23, 2024 Team Status: Inactive Member Role/Relationship Status Dates Adriel Khan MD Primary Care Provider Active St art: December 29, 2024 End: December 29, 2024 Adriel Khan MD Referring Provider Active Start : December 29, 2024 End: December 29, 2024 Dr. Lynn Medina MD Attending Provider Active Start: December 29, 2024 End: December 29, 2024 Team Status: Inactive Member Role/Relationship Status Dates Adriel Khan MD Primary Care Provider Active St art: December 30, 2024 End: December 30, 2024 Adriel Khan MD Referring Provider Active Start : December 30, 2024 End: December 30, 2024 Dr. Pablo Pichardo DO Attending Provider Active Start: December 30, 2024 End: December 30, 2024 Team Status: Active Member Role/Relationship Status Dates Adriel Khan MD Primary Care Provider Active St art: December 30, 2024 Adriel Khan MD Referring Provider Active Start : December 30, 2024 Dr. Pablo Pichardo DO Attending Provider Active Start: December 30, 2024 Dr. Pablo Pichardo DO Other Provider Active St art: December 30, 2024 Team Status: Inactive Member Role/Relationship Status Dates Adriel Khan MD Primary Care Provider Active St art: January 02, 2025 End: January 02, 2025 Angelita Macedo CHANGE PERSON, CHANGE PERSON-C Attending Provider Active Start: January 02, 2025 End: January 02, 2025 Angelita Macedo CHANGE PERSON, CHANGE PERSON-C Referring Provider Active Start: January 02, 2025 End: January 02, 2025 Team Status: Inactive Member Role/Relationship Status Dates Dr. Neeraj Daugherty MD Family Provider Active Sta rt: January 16, 2025 End: January 16, 2025 Franky Galloway CHANGE PERSON, CHANGE PERSON-C Attending Provider Active S tart: January 16, 2025 End: January 16, 2025 Franky Galloway CHANGE PERSON, CHANGE PERSON-C Referring Provider Active S tart: January 16, 2025 End: January 16, 2025 Dr. Rodríguez Portillo MD Other Provider Active Start: January 16, 2025 End: January 16, 2025 Adriel Khan MD Primary Care Provider Active St art: January 16, 2025 End: January 16, 2025 Adriel Khan MD Other Provider Active Start: 2024 End: January 16, 2025 Team Status: Inactive Member Role/Relationship Status Dates Adriel Khan MD Primary Care Provider Active St art: January 20, 2025 End: January 20, 2025 Adriel Khan MD Referring Provider Active Start : January 20, 2025 End: January 20, 2025 Gladys Smith NP-C Attending Provider Active Start: January 20, 2025 End: January 20, 2025 Team Status: Inactive Member Role/Relationship Status Dates Dr. Neeraj Daugherty MD Family Provider Active Sta rt: February 16, 2025 End: February 26, 2025 Franky Galloway CHANGE PERSON, CHANGE PERSON-C Attending Provider Active S tart: February 16, 2025 End: February 26, 2025 Franky Galloway CHANGE PERSON, CHANGE PERSON-C Referring Provider Active S tart: February 16, 2025 End: February 26, 2025 Dr. Rodríguez Portillo MD Other Provider Active Start: February 16, 2025 End: February 26, 2025 Adriel Khan MD Primary Care Provider Active St art: February 16, 2025 End: February 26, 2025 Adriel Khan MD Other Provider Active Start: 2024 End: February 26, 2025 Team Status: Inactive Member Role/Relationship Status Dates Adriel Khan MD Primary Care Provider Active St art: February 17, 2025 End: February 17, 2025 Adriel Khan MD Attending Provider Active Start : February 17, 2025 End: February 17, 2025 Adriel Khan MD Referring Provider Active Start : February 17, 2025 End: February 17, 2025 Team Status: Inactive Member Role/Relationship Status Kaela Khan MD Primary Care Provider Active St art: February 20, 2025 End: February 20, 2025 [facility] CHANGE PERSON, CHANGE PERSON-C Attending Provider Active Start: February 20, 2025 End: February 20, 2025 Team Status: Inactive Member Role/Relationship Status Dates Adriel Khan MD Primary Care Provider Active St art: March 04, 2025 End: March 04, 2025 Adriel Khan MD Referring Provider Active Start : March 04, 2025 End: March 04, 2025 Dionna Self PA, PA Attending Provider Active Start: March 04, 2025 End: March 04, 2025 Team Status: Inactive Member Role/Relationship Status Dates Dr. Neeraj Daugherty MD Family Provider Active Sta rt: March 18, 2025 End: March 18, 2025 Franky Galloway CHANGE PERSON, CHANGE PERSON-C Attending Provider Active S tart: March 18, 2025 End: March 18, 2025 Franky Galloway CHANGE PERSON, CHANGE PERSON-C Referring Provider Active S tart: March 18, 2025 End: March 18, 2025 Dr. Rodríguez Portillo MD Other Provider Active Start: March 18, 2025 End: March 18, 2025 Adriel Khan MD Primary Care Provider Active St art: March 18, 2025 End: March 18, 2025 Adriel Khan MD Other Provider Active Start: 2024 End: March 18, 2025 Team Status: Inactive Member Role/Relationship Status Dates Adriel Khan MD Primary Care Provider Active St art: April 08, 2025 End: April 08, 2025 Adriel Khan MD Referring Provider Active Start : April 08, 2025 End: April 08, 2025 BONNY Johnson Attending Provider Active Start: April 08, 2025 End: April 08, 2025 Team Status: Active Member Role/Relationship Status Dates Dr. Neeraj Daugherty MD Primary care physician Active Adriel Khan MD Primary care physician Active Team Status: Inactive Member Role/Relationship Status Dates Adriel Khan MD Primary care physician Active S tart: December 23, 2024 End: December 23, 2024 TAMIA Perez Attending physician Active S tart: December 23, 2024 End: December 23, 2024 TAMIA Perez Referring Provider Active St art: December 23, 2024 End: December 23, 2024 Team Status: Active Member Role/Relationship Status Kaela Khan MD Primary care physician Active S tart: December 23, 2024 Dr. Lynn Medina MD Attending physician Active Start: December 23, 2024 TAMIA Perez Referring Provider Active St art: December 23, 2024 Team Status: Inactive Member Role/Relationship Status Dates Adriel Khan MD Primary care physician Active S tart: December 29, 2024 End: December 29, 2024 Adriel Khan MD Referring Provider Active Start : December 29, 2024 End: December 29, 2024 Dr. Lynn Medina MD Attending physician Active Start: December 29, 2024 End: December 29, 2024 Team Status: Inactive Member Role/Relationship Status Kaela Khan MD Primary care physician Active S tart: December 30, 2024 End: December 30, 2024 Adriel Khan MD Referring Provider Active Start : December 30, 2024 End: December 30, 2024 Dr. Pablo Pichardo DO Attending physician Active Start: December 30, 2024 End: December 30, 2024 Team Status: Active Member Role/Relationship Status Kaela Khan MD Primary care physician Active S tart: December 30, 2024 Adriel Khan MD Referring Provider Active Start : December 30, 2024 Dr. Pablo Pichardo DO Attending physician Active Start: December 30, 2024 Dr. Pablo Pichardo DO Nurse Practitioner Active Start: December 30, 2024 Team Status: Inactive Member Role/Relationship Status Dates Adriel Khan MD Primary care physician Active S tart: January 02, 2025 End: January 02, 2025 Angelita Macedo CHANGE PERSON, CHANGE PERSON-C Attending physician Active Start: January 02, 2025 End: January 02, 2025 Angelita Macedo CHANGE PERSON, CHANGE PERSON-C Referring Provider Active Start: January 02, 2025 End: January 02, 2025 Team Status: Inactive Member Role/Relationship Status Dates Dr. Neeraj Daugherty MD Primary care physician Active Start: January 16, 2025 End: January 16, 2025 Franky Galloway CHANGE PERSON, CHANGE PERSON-C Attending physician Active Start: January 16, 2025 End: January 16, 2025 Franky Galloway CHANGE PERSON, CHANGE PERSON-C Referring Provider Active S tart: January 16, 2025 End: January 16, 2025 Dr. Rodríguez Portillo MD Nurse Practitioner Active Sta rt: January 16, 2025 End: January 16, 2025 Adriel Khan MD Primary care physician Active S tart: January 16, 2025 End: January 16, 2025 Adriel Khan MD Nurse Practitioner Active Start : January 16, 2025 End: January 16, 2025 Team Status: Inactive Member Role/Relationship Status Dates Adriel Khan MD Primary care physician Active S tart: January 20, 2025 End: January 20, 2025 Adriel Khan MD Referring Provider Active Start : January 20, 2025 End: January 20, 2025 Gladys Smith CHANGE PERSON-C Attending physician Active Start: January 20, 2025 End: January 20, 2025 Team Status: Inactive Member Role/Relationship Status Dates Dr. Neeraj Daugherty MD Primary care physician Active Start: February 16, 2025 End: February 26, 2025 Franky Galloway CHANGE PERSON, CHANGE PERSON-C Attending physician Active Start: February 16, 2025 End: February 26, 2025 Franky Galloway CHANGE PERSON, CHANGE PERSON-C Referring Provider Active S tart: February 16, 2025 End: February 26, 2025 Dr. Rodríguez Portillo MD Nurse Practitioner Active Sta rt: February 16, 2025 End: February 26, 2025 Adriel Khan MD Primary care physician Active S tart: February 16, 2025 End: February 26, 2025 Adriel Khan MD Nurse Practitioner Active Start : February 16, 2025 End: February 26, 2025 Team Status: Inactive Member Role/Relationship Status Dates Adriel Khan MD Primary care physician Active S tart: February 17, 2025 End: February 17, 2025 Adriel Khan MD Attending physician Active Star t: February 17, 2025 End: February 17, 2025 Adriel Khan MD Referring Provider Active Start : February 17, 2025 End: February 17, 2025 Team Status: Inactive Member Role/Relationship Status Dates Adriel Khan MD Primary care physician Active S tart: February 20, 2025 End: February 20, 2025 [facility] CHANGE PERSON, CHANGE PERSON-C Attending physician Active Start: February 20, 2025 End: February 20, 2025 Team Status: Inactive Member Role/Relationship Status Dates Adriel Khan MD Primary care physician Active S tart: March 04, 2025 End: March 04, 2025 Adriel Khan MD Referring Provider Active Start : March 04, 2025 End: March 04, 2025 Dionna Self PA, PA Attending physician Active Start: March 04, 2025 End: March 04, 2025 Team Status: Inactive Member Role/Relationship Status Dates Dr. Neeraj Daugherty MD Primary care physician Active Start: March 18, 2025 End: March 18, 2025 Franky Galloway CHANGE PERSON, CHANGE PERSON-C Attending physician Active Start: March 18, 2025 End: March 18, 2025 Franky Galloway CHANGE PERSON, CHANGE PERSON-C Referring Provider Active S tart: March 18, 2025 End: March 18, 2025 Dr. Rodríguez Portillo MD Nurse Practitioner Active Sta rt: March 18, 2025 End: March 18, 2025 Adriel Khan MD Primary care physician Active S tart: March 18, 2025 End: March 18, 2025 Adriel Khan MD Nurse Practitioner Active Start : March 18, 2025 End: March 18, 2025 Team Status: Inactive Member Role/Relationship Status Dates Adriel Khan MD Primary care physician Active S tart: April 08, 2025 End: April 08, 2025 Adriel Khan MD Referring Provider Active Start : April 08, 2025 End: April 08, 2025 Gladys Smith NP-C Attending physician Active Start: April 08, 2025 End: April 08, 2025 Team Status: Inactive Member Role/Relationship Status Dates Adriel Khan MD Primary care physician Active S tart: April 16, 2025 End: April 16, 2025 Adriel Khan MD Referring Provider Active Start : April 16, 2025 End: April 16, 2025 Dionna CANTRELL, PA Attending physician Active Start: April 16, 2025 End: April 16, 2025 FOR RECORDS PERTAINING TO PATIENTS WHO ARE [...] BE BASED ON THE PRIMARY CLINICAL RECORDS. [facility] [facility]. provides no warranty or guarantee of the accuracy or completeness of information in this document.
[2025-04-23 20:11] VITALS: BP 123/86; PULSE 104
[2025-04-23 20:22] LABS: Hematocrit 42.4 % (40-54); Hemoglobin 14.1 g/dL (13.0-16.5); Immature Granulocytes Count 0.060 X10^3/uL (0.0-0.0); Mean Corp Hgb Conc 33.3 g/dL (32-36); Mean Corpuscular Volume 89.6 fL (80-94); Mean Platelet Vol. 10.3 fl (6.2-12.0); NRBC Flagged by Analyzer 0 % (0-5); Platelet Count 311 K/mm3 (150-450); RBC Distribution Width CV 15.1 % (11.6-14.6); RBC Distribution Width SD 49.5 fl (35.1-43.9); Red Blood Count 4.73 M/mm3 (4.6-6.2); White Blood Count 13.8 K/mm3 (4.4-11.0)
[2025-04-23 20:52] LABS: Anion Gap 12 (5-15); BUN 23 mg/dL (4-19); BUN/Creat Ratio 23.2 RATIO (10-20); Calcium,Total 9.4 mg/dL (7.6-11.0); Carbon Dioxide 23.4 mmol/L (21.0-32.0); Chloride 102 mmol/L (98-108); Estimated Creatinine Clearance 70.46 ml/min (50-250); Glucose 87 mg/dL (70-99); Potassium 4.9 mmol/L (3.3-5.1)
[2025-04-23 21:00] VITALS: BP 131/92; PULSE 102; O2SAT 93
--- NOTE | 2025-04-23 21:29 | EDS_ITS ---
HPI History of Present Illness Chief Complaint: Palpitations Detail of Chief Complaint: Palpitations, fast heart rate [facility] Medical History (Updated 04/23/25 @ 21:[address] Armand Sierra MD) Wears hearing aid Arthritis Easy bruising On home oxygen therapy CPAP (continuous positive airway pressure) dependence Sleep apnea History of Holter monitoring Acute and chronic respiratory failure with hypoxia History of echocardiogram Injury of back History of hiatal hernia Shortness of breath on exertion Former smoker Leg cramps Cardiology follow-up encounter Pulmonary emphysema Hyperlipidemia Colon polyps Barretts esophagus Scabies Atrial fibrillation and flutter Osteoporosis Essential hypertension History of DVT (deep vein thrombosis) Paroxysmal atrial tachycardia Paroxysmal atrial fibrillation GERD (gastroesophageal reflux disease) Gout Type 2 diabetes mellitus Hypertension Tachycardia skilled nursing (current) use of anticoagulants Near syncope Bradycardia Tobacco dependence Afib Home Medications ?Medication ?Instructions ?Recorded ?Last Taken ?Type denosumab 60 mg/mL subcutaneous 60 mg subcut [id number] osteoperosis 11/29/23 Unknown Rx syringe (Prolia) #1 mL omega-3 fatty acids 1,000 mg 1,000 mg PO DAILY supplem ent 02/28/24 12/27/24 History capsule allopurinol 300 mg tablet 300 mg PO DAILY gout 4 07/17/24 History dofetilide 500 mcg capsule 500 mcg PO BID heart #180 caps 08/18/24 Unknown Rx furosemide 40 mg tablet 40 mg PO DAILY edema #90 tab s 08/18/24 Unknown Rx potassium chloride 10 mEq 10 meq PO DAILY supplement #90 08/18/24 Unknown Rx tablet,extended release(part/cryst) tabs warfarin 4 mg tablet 4 mg PO QDAY #90 tabs 12/23/24 Rx amoxicillin 500 mg capsule 2,000 mg PO ONCE 03/04/25 U nknown History diltiazem HCl 180 mg capsule,24 180 mg PO BID #180 cap s 03/04/25 Unknown Rx hr,extended release (Tiadylt ER) epinephrine 0.3 mg/0.3 mL 0.3 mg IM Q5-15M PRN 5 Unknown History injection, auto-injector (EpiPen 2-Laureano) lidocaine HCl 2 % mucosal solution 5 ml mucous membran e TID PRN 03/04/25 Unknown History vitamin D3 250 mcg (10,000 1 cap PO QDAY 03/04/25 Unkn own History unit)-vitamin K2 45 mcg capsule albuterol sulfate 90 mcg/actuation 2 puff inhalation Q 4H PRN 03/16/25 Unknown Rx aerosol inhaler shortness of breath or wheez ing #8.5 grams fluticasone fur. 200 mcg-umeclid 1 ea inhalation QDAY #60 ea 04/08/25 Unknown Rx 62.5 mcg-vilant 25 mcg inhalat.powder (Trelegy Ellipta) guaifenesin 1,200 mg tablet, 1,200 mg PO Q12H cough #6 0 tabs 04/08/25 Unknown Rx extended release 12 hr ipratropium 0.5 mg-albuterol 3 mg 3 ml inhalation Q6-8 H PRN 04/08/25 Unknown Rx (2.5 mg base)/3 mL nebulization shortness of breath or wheezing soln #180 mL pantoprazole 40 mg tablet,delayed 40 mg PO BID gerd # 60 tabs 04/13/25 Unknown Rx release Allergy/AdvReac Type Severity Reaction Status Date / Time secobarbital sodium (From Allergy Unknown Verified 04/23/25 19:14 [place]) venom-honey bee (bee venom Allergy Anaphylaxis Verified 04/23/25 19:14 (honey bee)) Family History Mother Diabetes Hypertension Myocardial infarction CAD (coronary artery disease) Father Hypertension Heart disease Diabetes Myocardial infarction CAD (coronary artery disease) Surgical History History of esophagogastroduodenoscopy (EGD) History of hip replacement Status post peripheral artery angioplasty History of left hip replacement History of cardiac radiofrequency ablation (~04/2008) Social History household members: other details: His mother lives with him. Smoking Status: Former smoker Tobacco: How many years used: 50 how long ago did patient quit smokin alcohol intake: current alcohol intake frequency: a few times a month Alcohol type: beer substance use type: does not use caffeine: No EXAM Physical Exam Const Vital Signs: 04/23/25 19:11 04/23/25 20:06 04/23/25 20:11 Temperature 98.2 F Temperature Source Temporal Pulse Rate 104 H 104 H Pulse Rate [Lying] 103 H Pulse Rate [Sitting (for 1 minute prior to obtaining)] 102 H Pulse Rate [Standing (for 1 minute prior to obtaining)] 103 H Respiratory Rate 18 Blood Pressure 130/72 H 123/86 H Blood Pressure [Lying] 124/87 H Blood Pressure [Sitting (for 1 minute prior to obtaining)] 127/92 H Blood Pressure [Standing (for 1 minute prior to obtaining)] 114/85 H Blood Pressure Mean 91 98 Blood Pressure Mean [Lying] 99 Blood Pressure Mean [Sitting (for 1 minute prior to obtaining)] 103 Blood Pressure Mean [Standing (for 1 minute prior to obtaining)] 94 Pulse Ox 98 Oxygen Delivery Method Room Air 04/23/25 21:00 Temperature Temperature Source Pulse Rate 102 H Pulse Rate [Lying] Pulse Rate [Sitting (for 1 minute prior to obtaining)] Pulse Rate [Standing (for 1 minute prior to obtaining)] Respiratory Rate Blood Pressure 131/92 H Blood Pressure [Lying] Blood Pressure [Sitting (for 1 minute prior to obtaining)] Blood Pressure [Standing (for 1 minute prior to obtaining)] Blood Pressure Mean 105 Blood Pressure Mean [Lying] Blood Pressure Mean [Sitting (for 1 minute prior to obtaining)] Blood Pressure Mean [Standing (for 1 minute prior to obtaining)] Pulse Ox 93 Oxygen Delivery Method Room Air MDM MDM Lab Data Labs: Laboratory Results - last 24 hr 04/23/25 19:20 WBC 13.8 H RBC 4.73 Hgb 14.1 Hct 42.4 MCV 89.6 MCH 29.8 MCHC 33.3 RDW Std Deviation 49.5 H RDW Coeff of Vivek 15.1 H Plt Count 311 MPV 10.3 Immature Gran % (Auto) 0.400 Neut % (Auto) 72.0 H Lymph % (Auto) 14.8 L [place] % (Auto) 8.2 Eos % (Auto) 4.0 Baso % (Auto) 0.6 Absolute Neuts (auto) 10.0 H Absolute Lymphs (auto) 2.04 Nucleated RBC % 0 Sodium 137 Potassium 4.9 Chloride 102 Carbon Dioxide 23.4 Anion Gap 12 BUN 23 H Creatinine 1.00 Estim Creat Clear Calc 70.46 Est GFR (MDRD) Non-Af 81 BUN/Creatinine Ratio 23.2 H Glucose 87 Calcium 9.4 TSH 2.850 EKG Initial EKG: Attestation: I personally reviewed and interpreted this EKG as follows: Interpretation: Sinus Tachycardia (Sinus tachycardia rate of 104. There is decreased anterior force. There are no acute ischemic changes. Parables 152 ms. Cures duration 74 ms. QT duration 3 and 48 ms. [facility] is normal) Discharge Plan Triage Chief Complaint: Palpitations ED Provider: Armand Sierra Dx/Rx/DC Orders Clinical Impression: Sinus tachycardia, skilled nursing (current) use of anticoagulants, Type 2 diabetes mellitus, Essential hypertension, Pulmonary hypertension Instructions: ED About Arrhythmias Prescriptions: No Action omega-3 fatty acids 1,000 mg capsule 1,000 mg PO DAILY amoxicillin 500 mg capsule 2,000 mg PO ONCE lidocaine HCl 2 % solution 5 ml mucous membrane TID PRN epinephrine [EpiPen 2-Laureano] 0.3 mg/0.3 mL auto-injector 0.3 mg IM Q5-15M PRN Rx Instructions: do not exceed 3 doses per episode vitamin D3-vitamin K2 250 mcg (10,000 unit)-45 mcg capsule 1 cap PO QDAY diltiazem HCl [Tiadylt ER] 180 mg capsule,extended release 24 hr 180 mg PO BID Qty: 180 3RF dofetilide 500 mcg capsule 500 mcg PO BID Qty: 180 3RF furosemide 40 mg tablet 40 mg PO DAILY Qty: 90 3RF potassium chloride 10 mEq tablet,ER particles/crystals 10 meq PO DAILY Qty: 90 3RF Trelegy Ellipta 200-62.5-25 mcg blister with device 1 ea inhalation QDAY Qty: 60 11RF guaifenesin 1,200 mg tablet extended release 12hr 1,200 mg PO Q12H Qty: 60 6RF ipratropium-albuterol 0.5 mg-3 mg(2.5 mg base)/3 mL solution for nebulization 3 ml inhalation Q6-8H PRN (Reason: shortness of breath or wheezing) Qty: 180 11RF allopurinol 300 mg tablet 300 mg PO DAILY Prolia 60 mg/mL syringe 60 mg subcut [id number] Qty: 1 1RF warfarin 4 mg tablet 4 mg PO QDAY Qty: 90 3RF Protocol: Dose Management Condition: Sunday Dose/Route: 4 mg Instruction: 1 x 4 mg tablet Condition: Sunday Dose/Route: 4 mg Instruction: 1 x 4 mg tablet Condition: Sunday Dose/Route: 4 mg Instruction: 1 x 4 mg tablet Condition: Sunday Dose/Route: 0 mg Instruction: 0 tablets Condition: Dose/Route: 4 mg Instruction: 1 x 4 mg tablet Condition: Sunday Dose/Route: 4 mg Instruction: 1 x 4 mg tablet Condition: Sunday Dose/Route: 4 mg Instruction: 1 x 4 mg tablet Protocol Text: Adjustment Start Date: Sunday04/22/25 INR Value: 4.7 INR Date: 04/22/25 Recheck Date: 04/29/25 Patient Comments: LAST DOSE 12/23/24 FOR ENDO 12/30/24 Rx Instructions: take as directed albuterol sulfate 90 mcg/actuation HFA aerosol inhaler 2 puff inhalation Q4H PRN (Reason: shortness of breath or wheezing) Qty: 8.5 11RF pantoprazole 40 mg tablet,delayed release (DR/EC) 40 mg PO BID Qty: 60 3RF Primary Care Provider: Adriel Pike Referrals: Adriel Pike MD [Primary Care Provider, Family Practice] Tray Santiago MD [Med Staff - Active Staff, Cardiology] - As soon as possible Print Language: [place] Disposition Disposition: Home, Self Care
[2025-04-23 21:33] VITALS: BP 130/95; PULSE 102; RESP 18; TEMP 36.8; O2SAT 97
== END 2025-04-23 21:39 | disposition home or self-care (01) ==
PROVIDERS: Emergency Provider Emergency Medicine; PCP Family Medicine; Visit Provider Emergency Medicine
DX: R00.0 Tachycardia, unspecified (principal); I27.20 Pulmonary hypertension, unspecified; E11.9 Type 2 diabetes mellitus without complications; R00.2 Palpitations; I10 Essential (primary) hypertension; E78.5 Hyperlipidemia, unspecified; Z79.01 Long term (current) use of anticoagulants; Z79.899 Other long term (current) drug therapy; Z87.891 Personal history of nicotine dependence; Z86.718 Personal history of other venous thrombosis and embolism; Z82.49 Family history of ischemic heart disease and other diseases of the circulatory system
CPT/HCPCS: 80048; 84443; 85025; 93005; 99285

== ENCOUNTER 2025-04-28 07:29 | Outpatient (RCR) | payer MEDICARE, MEDICAID, SELFPAY ==
[2025-04-22 10:50] LABS: Prothrombin Time (Protime)PT. 45.3 SECONDS (11.7-14.9)
[2025-04-28 10:38] LABS: Prothrombin Time (Protime)PT. 24.4 SECONDS (11.7-14.9)
== END 2025-04-28 18:00 | disposition home or self-care (01) ==
LOC: MTLAB 07:29
PROVIDERS: Family Provider Family Medicine; PCP Family Medicine; Referring Provider Nurse Practitioner Family; Visit Provider Nurse Practitioner Family
DX: Z79.01 Long term (current) use of anticoagulants (principal)
CPT/HCPCS: 36415; 85610

== ENCOUNTER 2025-05-08 10:00 | Outpatient (CLI) | payer MEDICARE, MEDICAID, SELFPAY ==
[2025-05-13 11:08] LABS: Egg, Whole 0.32 kU/L (Class I); Mussels 0.21 kU/L (Class 0/I)
== END 2025-05-08 23:59 | disposition home or self-care (01) ==
LOC: MTLAB 10:01
PROVIDERS: PCP Family Medicine; Referring Provider Family Medicine; Visit Provider Family Medicine
DX: E73.9 Lactose intolerance, unspecified (principal); R10.9 Unspecified abdominal pain
CPT/HCPCS: 36415; 86003; 86005

== ENCOUNTER → 2025-05-08 | Outpatient (CLI) | payer MEDICARE, MEDICAID, SELFPAY | END | disposition home or self-care (01) | LOC: MTRAD 09:59 | PROVIDERS: PCP Family Medicine; Referring Provider Family Medicine; Visit Provider Family Medicine | DX: R10.9 Unspecified abdominal pain (principal) | CPT/HCPCS: 74022 ==

== ENCOUNTER → 2025-05-11 | Outpatient (CLI) | payer MEDICARE, MEDICAID, SELFPAY | END | disposition home or self-care (01) | LOC: PSN 11:31 | PROVIDERS: PCP Family Medicine; Referring Provider Physician Assistant Medical; Visit Provider Physician Assistant Medical | DX: I48.0 Paroxysmal atrial fibrillation (principal); I48.92 Unspecified atrial flutter; R00.0 Tachycardia, unspecified | CPT/HCPCS: 93225; 93226 ==

== ENCOUNTER 2025-05-19 07:10 | Outpatient (RCR) | payer MEDICARE, MEDICAID, SELFPAY ==
[2025-05-19 10:20] LABS: Prothrombin Time (Protime)PT. 31.2 SECONDS (11.7-14.9)
== END 2025-05-19 18:00 | disposition home or self-care (01) ==
LOC: MTLAB 07:10
PROVIDERS: Family Provider Family Medicine; PCP Family Medicine; Referring Provider Nurse Practitioner Family; Visit Provider Nurse Practitioner Family
DX: Z79.01 Long term (current) use of anticoagulants
CPT/HCPCS: 36415; 85610

== ENCOUNTER 2025-06-22 14:41 | Outpatient (RCR) | payer MEDICARE, MEDICAID, SELFPAY ==
[2025-06-22 18:00] LABS: Prothrombin Time (Protime)PT. 35.8 SECONDS (11.7-14.9)
== END 2025-06-27 18:00 | disposition home or self-care (01) ==
LOC: MTLAB 14:41
PROVIDERS: Family Provider Family Medicine; PCP Family Medicine; Referring Provider Nurse Practitioner Family; Visit Provider Nurse Practitioner Family
DX: I48.0 Paroxysmal atrial fibrillation (principal); Z79.01 Long term (current) use of anticoagulants
CPT/HCPCS: 36415; 85610

== ENCOUNTER 2025-06-30 12:36 | Outpatient (RCR) | payer MEDICARE, MEDICAID, SELFPAY ==
[2025-06-30 15:11] LABS: Prothrombin Time (Protime)PT. 25.9 SECONDS (11.7-14.9)
== END 2025-06-30 18:00 | disposition home or self-care (01) ==
LOC: MTLAB 12:36
PROVIDERS: Family Provider Family Medicine; PCP Family Medicine; Referring Provider Nurse Practitioner Family; Visit Provider Nurse Practitioner Family
DX: Z79.01 Long term (current) use of anticoagulants
CPT/HCPCS: 36415; 85610